=== PATIENT | female | born 1980 | race Caucasian/White ===

== ENCOUNTER 2020-05-03 11:43 | Emergency (ER) | payer OTHER, SELFPAY ==
[2020-05-03 12:08] VITALS: BP 103/70; PULSE 78; RESP 18; TEMP 37.1; O2SAT 98; BMI 49.9
--- NOTE | 2020-05-03 12:36 | XR_ITS ---
EXAMINATION: XR CHEST CLINICAL INFORMATION: Cough COMPARISON: Previous chest x-ray May 2016 TECHNIQUE: Frontal view of the chest was obtained. FINDINGS: The cardiac and mediastinal contours are stable. The lungs are clear. There is no pleural effusion or pneumothorax. There are degenerative changes of the spine. XR/XR chest 1V IMPRESSION: No evidence for acute disease in the chest.
--- NOTE | 2020-05-03 12:44 | PC.NURSE ---
SEEN BY PROVIDER. SWABBED FOR COVID. CXR PENDING.
--- NOTE | 2020-05-03 13:17 | ED.URI ---
HPI - URI/Sore Throat General Chief Complaint: Upper Respiratory Symptoms Stated Complaint: cough Time Seen by Provider: 05/03/20 12:36 History of Present Illness HPI Narrative: Patient complains of cough, runny nose body aches and some fatigue for 6 or 7 days no chest pain no shortness breath, cough is productive of sputum Symptoms have been for a week, they are moderate, no prior medical treatment Related Data Home Medications Medication Instructions Recorded Confirmed docusate sodium 100 mg capsule 100 mg PO DAILY 04/17/20 04/17/20 sennosides 8.6 mg capsule 17.2 mg PO BEDTIME cap 04/17/20 04/17/20 simethicone 180 mg capsule 180 mg PO .T.i.d. PRN cap 04/17/20 04/17/20 Previous Rx's Medication Instructions Recorded trazodone 50 mg tablet 50 mg PO BEDTIME #90 tab 04/12/20 bupropion HCl 150 mg 24 hr tablet, 150 mg PO QAM #90 tab 04/17/20 extended release sucralfate 1 gram tablet 2 g PO DAILY #60 tab 04/18/20 azithromycin [Zithromax Z-Nirav] See Rx Instructions .ROUTE 05/03/20 .COMPLEX #6 tab hydrocodone-guaifenesin 10 ml PO Q6H PRN #118 ml 05/03/20 Allergies Allergy/AdvReac Type Severity Reaction Status Date / Time metronidazole [From FLAGYL] Allergy Severe CHEST PAIN Verified 05/03/20 12:14 TO LEFT SHOULDER, aripiprazole [From Abilify] Allergy Mild ITCHING Verified 05/03/20 12:14 iopromide [From Ultravist] Allergy Mild DIZZY, DRY Verified 05/03/20 12:14 THROAT AND MOUTH bacitracin [BACITRACIN] Allergy Unknown BURNING, Verified 05/03/20 12:14 [address] Allergy Intermediate attention Uncoded 05/03/20 12:14 issues Review of Systems Review of Systems: There is no headache, no neck pain, no chest pain or shortness of breath, no abdominal pain no nausea no vomiting no diarrhea no dysuria, no rash, no leg swelling or calf pain, no weakness no confusion no dizziness Yes all other systems are reviewed and are negative PMFSH Past Medical History Source: nursing notes reviewed Medical History (Updated 05/03/20 @ 13:23 by JOSE Choi) Fibromyalgia Hypothyroid PCOS (polycystic ovarian syndrome) PTSD (post-traumatic stress disorder) Social History Social History Advance Directives: No Advance Directives Information Provided: Yes Physical Exam Vital Signs: Vital Signs: Last Vital Signs Temp 98.8 F 05/03/20 12:08 Pulse 78 05/03/20 12:08 Resp 18 05/03/20 12:08 BP 103/70 05/03/20 12:08 Pulse Ox 98 05/03/20 12:08 Body Mass Index 49.9 General appearance is comfortable, no acute distress, speaks full sentences, relaxed and cooperative, a and O x3 Eyes are clear with no redness or discharge Sinuses are not tender Neck is supple Chest is clear to auscultation bilaterally with full symmetrical equal breath sounds The heart no murmur The abdomen soft nontender Extremities no edema Skin no rashes Neuro no focal deficit Course Course Course Narrative: Chest x-ray was negative, a one-view portable Symptoms are likely COVID but with productive cough and fever possibility of early pneumonia not seen on x-ray I treated the patient with antibiotic as well She remained comfortable throughout ER visit and was discharged Discharge Plan Discharge Clinical Impression: Bronchitis Patient Disposition: Home, Self-Care Additional Instructions: We will call with COVID test results in 2-3 days Your symptoms are very likely from COVID so be very careful with wearing a mask and protect people from your cough A negative test does not rule out COVID infection We are trying an antibiotic in case it is an early pneumonia missed by x-ray Return any time any worse condition or any concerns Prescriptions: New azithromycin [Zithromax Z-Nirav] 250 mg tablet See Rx Instructions .ROUTE .COMPLEX Qty: 6 RF: 0 hydrocodone-guaifenesin 2.5-200 mg/5 mL solution 10 ml PO Q6H PRN (Reason: cough) Qty: 118 RF: 0 No Action trazodone 50 mg tablet 50 mg PO BEDTIME Qty: 90 RF: 0 bupropion HCl 150 mg tablet extended release 24 hr 150 mg PO QAM Qty: 90 RF: 0 sucralfate 1 gram tablet 2 g PO DAILY Qty: 60 RF: 1 docusate sodium [Colace] 100 mg capsule 100 mg PO DAILY RF: 0 senna 8.6 mg capsule 17.2 mg PO BEDTIME RF: 0 simethicone [Gas Relief (simethicone)] 180 mg capsule 180 mg PO .T.i.d. PRNRF: 0 Interventions: ED Discharge Assessment Last Done: 05/03/20 13:31 Discharge Date/Time: 05/03/20 13:30
== END 2020-05-03 13:30 | disposition home or self-care (01) ==
PROVIDERS: Physician Assistant Medical; Emergency Provider Emergency Medicine; PCP Physician Assistant
DX: J40 Bronchitis, not specified as acute or chronic (principal); R05 Cough; M79.10 Myalgia, unspecified site; Z20.828 Contact with and (suspected) exposure to other viral communicable diseases; Z79.899 Other long term (current) drug therapy
CPT/HCPCS: 71045; 99283; U0003

== ENCOUNTER 2020-05-21 09:02 | Emergency (ER) | payer OTHER, SELFPAY ==
--- NOTE | 2020-05-21 09:31 | ED.BACK ---
HPI - Back Pain/Injury General Chief Complaint: Back Pain/Injury Stated Complaint: fall Time Seen by Provider: 05/21/20 09:27 Source: patient Mode of arrival: ambulatory Limitations: no limitations History of Present Illness HPI Narrative: Patient presents to ED for sharp tingling pain from right lower back glute jaime going down right leg. Patient states the sunfsy pain was so severe cause her to fall while trying to put lotion on her legs. Patient states she slipped and fell onto her knees. Patient states presently she has no pain in knees and only complaint is right gluteus to lower back pain radiating down leg. Patient states history of sciatica. Patient denies any urinary or bowel incontinence. Patient states no paralysis of lower extremities. Patient states no abdominal pain, nausea, vomiting, fever, chills, flank pain, dysuria, hematuria, vaginal bleeding, or vaginal discharge. Patient denies hitting head or loss of consciousness. Related Data Home Medications Medication Instructions Recorded Confirmed docusate sodium 100 mg capsule 100 mg PO DAILY 04/17/20 04/17/20 sennosides 8.6 mg capsule 17.2 mg PO BEDTIME cap 04/17/20 04/17/20 simethicone 180 mg capsule 180 mg PO .T.i.d. PRN cap 04/17/20 04/17/20 Previous Rx's Medication Instructions Recorded trazodone 50 mg tablet 50 mg PO BEDTIME #90 tab 04/12/20 bupropion HCl 150 mg 24 hr tablet, 150 mg PO QAM #90 tab 04/17/20 extended release sucralfate 1 gram tablet 2 g PO DAILY #60 tab 04/18/20 azithromycin [Zithromax Z-Nirav] See Rx Instructions .ROUTE 05/03/20 .COMPLEX #6 tab hydrocodone-guaifenesin 10 ml PO Q6H PRN #118 ml 05/03/20 tramadol 50 mg PO TID PRN #9 tab 05/21/20 Allergies Allergy/AdvReac Type Severity Reaction Status Date / Time metronidazole [From FLAGYL] Allergy Severe CHEST PAIN Verified 05/03/20 12:14 TO LEFT SHOULDER, aripiprazole [From Abilify] Allergy Mild ITCHING Verified 05/03/20 12:14 iopromide [From Ultravist] Allergy Mild DIZZY, DRY Verified 05/03/20 12:14 THROAT AND MOUTH bacitracin [BACITRACIN] Allergy Unknown BURNING, Verified 05/03/20 12:[address] Allergy Intermediate attention Uncoded 05/03/20 12:14 issues Review of Systems Review of Systems: Yes all other systems are reviewed and are negative Constitutional: Constitutional: Reports as per HPI, Reports no additional constitutional complaints, Denies body ache(s), Denies frequent falls and Denies headache(s) Eyes: Eyes: Reports as per HPI and Reports no additional eye complaints ENT: Reports system reviewed and no additional complaints, except as documented, Reports as per HPI and Denies headache(s) Cardiovascular: Cardiovascular: Reports as per HPI and Reports no additional cardiovascular complaints Respiratory: Respiratory: Reports as per HPI and Reports no additional respiratory complaints Gastrointestinal: Gastrointestinal: Reports as per HPI, Reports no additional gastrointestinal complaints, Denies abdominal pain, Denies nausea and Denies vomiting Genitourinary: Genitourinary: Reports no additional female genitourinary complaints, Reports as per HPI, Denies abnormal vaginal bleeding, Denies nocturia, Denies dysuria, Denies pelvic pain, Denies urinary hesitancy, Denies urinary urgency, Denies vaginal discharge, Denies vaginal dryness, Denies vaginal odor and Denies vaginal pruritus Musculoskeletal: Musculoskeletal: Reports no additional musculoskeletal complaints and Reports as per HPI Neurologic: Reports system reviewed and no additional complaints, except as documented, Reports as per HPI, Denies frequent falls and Denies headache(s) Psychiatric: Psychiatric: Reports no additional psychiatric complaints and Reports as per HPI PMFSH Past Medical History Medical History Fibromyalgia Hypothyroid PCOS (polycystic ovarian syndrome) PTSD (post-traumatic stress disorder) Social History Social History Smoking Status: Never smoker Use of substances other than those prescribed or required for medical reasons: No Advance Directives: No Advance Directives Information Provided: No Physical Exam Vital Signs: Vital Signs: Last Vital Signs Temp 97.9 F 05/21/20 09:32 Pulse 98 05/21/20 09:32 Resp 16 05/21/20 09:32 BP 133/98 H 05/21/20 09:32 Pulse Ox 97 05/21/20 09:32 Body Mass Index 50.1 Const: General: cooperative, healthy appearing, comfortable, no acute distress, well developed, alert, awake and Physically active Orientation/consciousness: patient oriented x3 HENMT: Head: Yes normal to inspection, Yes No palpable skull fracture present, Yes atraumatic, No abrasion, No Graham's sign, No contusion, No cranial bruits, No hematoma, No laceration, No occipital foramen tenderness, No palpable skull fracture, No raccoon eyes, No scalp lesion, No scalp tenderness, No Temporal artery tenderness present and No periorbital ecchymosis Eyes: General: appearance normal, both eyes and all related structures Neck: Neck: Yes normal visual inspection, Yes full ROM, Yes no lymphadenopathy, Yes no meningeal signs, Yes trachea midline, Yes supple and No tender Chest: Chest palpation & inspection: normal inspection of the chest, normal palpation of entire chest wall and no localized rib tenderness Resp: Effort & Inspection: normal respiratory effort and able to speak in complete sentences Auscultation: clear to auscultation bilaterally Cardio: Jugular venous distension: no JVD Heart sounds: S1 normal heart sound present and S2 normal heart sound present GI: Inspection: Yes normal to inspection and No abdominal wall ecchymosis Palpation (GI): Soft to palpation, not firm, nontender, no guarding and not rigid : General: No CVA tenderness and Yes no CVA tenderness Back/Spine/Pelvis: Other: Negative for any spine tenderness. Positive for tenderness on palpation of right gluteus jaime. Negative for any edema, swelling, mass, ecchymosis, fluctulance or warmth on palpation/inspection of right gluteus jaime. Back: no CVA tenderness, No CVA tenderness and No back tenderness Skin: General skin exam: no rashes or lesions noted and elasticity normal Neuro: General: patient oriented x3, no meningeal signs and CN's II-XI intact bilaterally Cranial nerves: Yes CN's II-XII intact bilaterally Extrem: General: Yes normal to inspection and Yes full ROM Psych: Appearance: grossly normal, well kempt and not disheveled Course Course Course Narrative: History physical exam indicates sciatica. No need for any images. Patient does not have any knee pain presently and negative for any spine tenderness on palpation. Patient given Toradol injection Reevaluation(s) Reevaluation #1: patient given Toradol for injection Time: 09:40 MDM - Back Pain/Injury MDM Narrative Medical decision making narrative: sciatica Lab Data Labs: Lab Results 05/21/20 Range/Units 10:00 Urine Color YELLOW Urine Appearance CLEAR Urine pH 6.0 (5.0-8.0) Ur Specific [place] 1.025 (1.005-1.025) Urine Protein NEG (NEG-TRACE) MG/DL Urine Glucose (UA) NEG (NEG) MG/DL Urine Ketones NEG (NEG) MG/DL Urine Blood NEG (NEG) Urine Nitrite NEG (NEG) Ur Leukocyte Esterase NEG (NEG) Urine Test NEGATIVE (NEGATIVE) Discharge Plan Discharge Clinical Impression: Sciatica Patient Disposition: Home, Self-Care Instructions: Sciatica (ED) Additional Instructions: return to the ED immediately for worsening back pain, urinary/ bowel incontinence, paralysis of lower extremity, nausea, vomiting, abdominal pain, flank pain, fever, chills, vaginal bleeding, vaginal discharge, or any other concerning symptoms. Prescriptions: New tramadol 50 mg tablet 50 mg PO TID PRN (Reason: pain) Qty: 9 RF: 0 No Action trazodone 50 mg tablet 50 mg PO BEDTIME Qty: 90 RF: 0 bupropion HCl 150 mg tablet extended release 24 hr 150 mg PO QAM Qty: 90 RF: 0 sucralfate 1 gram tablet 2 g PO DAILY Qty: 60 RF: 1 azithromycin [Zithromax Z-Nirav] 250 mg tablet See Rx Instructions .ROUTE .COMPLEX Qty: 6 RF: 0 hydrocodone-guaifenesin 2.5-200 mg/5 mL solution 10 ml PO Q6H PRN (Reason: cough) Qty: 118 RF: 0 docusate sodium [Colace] 100 mg capsule 100 mg PO DAILY RF: 0 senna 8.6 mg capsule 17.2 mg PO BEDTIME RF: 0 simethicone [Gas Relief (simethicone)] 180 mg capsule 180 mg PO .T.i.d. PRNRF: 0 Referrals: Parth La PA-C [Primary Care Provider] - 2 days (Sciatica) Discharge Date/Time: 05/21/20 10:34
[2020-05-21 09:32] VITALS: BP 133/98; PULSE 98; RESP 16; TEMP 36.6; O2SAT 97; BMI 50.1
[2020-05-21 10:15] LABS: Glucose Urine UA NEG (NEG); Leukocyte Esterase Urine NEG (NEG); Nitrite Urine NEG (NEG); Specific Gravity - Urine 1.025 (1.005-1.025); Urine Blood NEG (NEG); Urine Ketones NEG (NEG); Urine Protein NEG (NEG-TRACE)
[2020-05-21 10:17] LABS: Appearance Urine CLEAR; Color Urine YELLOW
[2020-05-21 10:19] LABS: UPreg QC Valid YES; Urine Pregnancy NEGATIVE (NEGATIVE)
[2020-05-21] MEDS: Ketorolac Tromethamine 30 MG/ML VIAL IM (10:25)
== END 2020-05-21 10:34 | disposition home or self-care (01) ==
PROVIDERS: Physician Assistant; Emergency Provider Emergency Medicine; PCP Physician Assistant
DX: M54.31 Sciatica, right side (principal)
CPT/HCPCS: 81003; 81025; 96372; 99283; 99284; J1885

== ENCOUNTER 2020-05-31 08:13 | Outpatient (REF) | payer OTHER, SELFPAY ==
--- NOTE | 2020-05-31 08:18 | XR_ITS ---
EXAMINATION: LUMBAR SPINE X-RAY CLINICAL INFORMATION: Low back pain COMPARISON: Previous x-ray December 2014 TECHNIQUE: 3 views of the lumbar spine FINDINGS: Bone alignment is normal. No fracture or dislocation is seen. Disc spaces are normal. XR/XR lumbar spine 2-3V IMPRESSION: Unremarkable exam. EXAMINATION: Pelvis and right hip x-ray CLINICAL INFORMATION: Right hip pain COMPARISON: None. TECHNIQUE: One view of the pelvis and 2 views of the right hip FINDINGS: Bone alignment is normal. No fracture or dislocation is seen. The right hip joint is normal. Bones of the pelvis are unremarkable. Soft tissues are unremarkable. IMPRESSION: Unremarkable examination.
--- NOTE | 2020-05-31 08:18 | XR_ITS ---
EXAMINATION: LUMBAR SPINE X-RAY CLINICAL INFORMATION: Low back pain COMPARISON: Previous x-ray December 2014 TECHNIQUE: 3 views of the lumbar spine FINDINGS: Bone alignment is normal. No fracture or dislocation is seen. Disc spaces are normal. XR/XR hip RT w PEL1V IMPRESSION: Unremarkable exam. EXAMINATION: Pelvis and right hip x-ray CLINICAL INFORMATION: Right hip pain COMPARISON: None. TECHNIQUE: One view of the pelvis and 2 views of the right hip FINDINGS: Bone alignment is normal. No fracture or dislocation is seen. The right hip joint is normal. Bones of the pelvis are unremarkable. Soft tissues are unremarkable. IMPRESSION: Unremarkable examination.
== END 2020-05-31 08:14 | disposition home or self-care (01) ==
LOC: HO.XRAY 08:13
PROVIDERS: Visit Provider Physician Assistant
DX: M25.551 Pain in right hip (principal); M54.5 Low back pain
CPT/HCPCS: 72100; 73502

== ENCOUNTER 2020-06-05 15:07 | Outpatient (REF) | payer OTHER, SELFPAY | END 2020-06-05 15:08 | disposition home or self-care (01) | LOC: HO.LAB 15:07 | PROVIDERS: Visit Provider Internal Medicine | DX: Z20.828 Contact with and (suspected) exposure to other viral communicable diseases (principal) | CPT/HCPCS: C9803; U0003 ==

== ENCOUNTER 2020-09-30 14:54 | Outpatient (REF) | payer OTHER, SELFPAY | END 2020-09-30 14:55 | disposition home or self-care (01) | LOC: HO.LAB 14:54 | PROVIDERS: Visit Provider Internal Medicine | DX: Z20.822 Contact with and (suspected) exposure to COVID-19 (principal) | CPT/HCPCS: C9803; U0003; U0005 ==

== ENCOUNTER → 2020-10-14 13:31 | Outpatient (BNVA) | payer OTHER, SELFPAY | PROVIDERS: PCP Physician Assistant; Visit Provider Internal Medicine Gastroenterology | DX: Z13.89 Encounter for screening for other disorder (principal) | CPT/HCPCS: Q3014 ==

== ENCOUNTER 2020-10-23 09:47 | Outpatient (REF) | payer OTHER, SELFPAY ==
[2020-10-24 10:12] LABS: CT PCR NOT DETECTED (Not Detect.); NG PCR NOT DETECTED (Not Detect.)
[2020-10-24 12:25] LABS: BV Int Neg Control Negative (Negative); BV Int Pos Control Positive (Positive)
[2020-10-26 05:56] LABS: HPV mRNA E6/E7 rflx Not Detected (Not Detected)
== END 2020-10-23 09:48 | disposition home or self-care (01) ==
LOC: HO.LAB 09:47
PROVIDERS: PCP Physician Assistant; Visit Provider Obstetrics & Gynecology
DX: Z01.419 Encounter for gynecological examination (general) (routine) without abnormal findings (principal); E28.2 Polycystic ovarian syndrome; R10.2 Pelvic and perineal pain; R87.610 Atypical squamous cells of undetermined significance on cytologic smear of cervix (ASC-US); E66.01 Morbid (severe) obesity due to excess calories; Z68.43 Body mass index [BMI] 50.0-59.9, adult; Z88.8 Allergy status to other drugs, medicaments and biological substances; Z20.2 Contact with and (suspected) exposure to infections with a predominantly sexual mode of transmission
CPT/HCPCS: 58100; 87480; 87491; 87510; 87591; 87624; 87660; 88141; 88142; 88305

== ENCOUNTER 2020-11-04 13:24 | Outpatient (REF) | payer OTHER, SELFPAY ==
--- NOTE | ~2020-11-04 | US_ITS ---
EXAMINATION: US PELVIS AND TRANSVAGINAL CLINICAL INFORMATION: Pelvic pain. COMPARISON: Ultrasound pelvis 03/21/2019 TECHNIQUE: Transabdominal and transvaginal imaging of pelvis is performed. FINDINGS: The uterus is anteverted measuring 10.6 cm in length, 3.8 cm AP, and 5.7 cm in transverse dimension. The endometrial thickness is 0.8 cm. There are multiple small nabothian cysts in the cervix. There is no free fluid in the cul-de-sac. Right ovary measures 3.4 x 3.5 x 2.7 cm and volume 16.8 mL. It appears unremarkable. Previously, the right ovary measured 3.6 x 1.6 x 2.3 cm and volume 7.4 mL. Left ovary measures 2.9 x 2.9 x 1.8 cm and volume 7.7 mL. Previously, the left ovary measured 3.1 x 2.3 x 1.9 cm and volume 6.7 mL. There is no free fluid in the cul-de-sac. US/US pelvic and transvaginal IMPRESSION: Anteverted uterus appears unremarkable. Small nabothian cysts seen in the cervix. Unremarkable uterus.
== END 2020-11-04 13:25 | disposition home or self-care (01) ==
LOC: HO.US 13:24
PROVIDERS: Visit Provider Obstetrics & Gynecology
DX: R10.2 Pelvic and perineal pain (principal)
CPT/HCPCS: 76830; 76856

== ENCOUNTER → 2020-11-08 11:45 | Outpatient (BNVA) | payer OTHER, SELFPAY | PROVIDERS: Visit Provider Obstetrics & Gynecology | DX: E28.2 Polycystic ovarian syndrome (principal) | CPT/HCPCS: Q3014 ==

== ENCOUNTER 2020-12-16 09:57 | Outpatient (REF) | payer OTHER, SELFPAY ==
--- NOTE | ~2020-12-16 | MM_ITS ---
EXAMINATION: MM SCREENING DIGITAL BREAST TOMOSYNTHESIS, BILATERAL CLINICAL INFORMATION: Screening. Asymptomatic. The lifetime risk of breast cancer based on the Tyrer-Cuzick Model is 12.5%. COMPARISON: Mammography: December 15, 2019 and studies dating back to March 19, 2015 TECHNIQUE: Digital breast tomosynthesis is performed in both the craniocaudal and mediolateral oblique views along with computer-aided detection (CAD). Synthesized 2D images are generated from the tomosynthesis. FINDINGS: The breasts are heterogeneously dense, which may obscure small masses (ACR BI-RADS breast composition Category c). There are no significant masses, abnormal calcifications, or other abnormalities. MM/MM tomosynthesis screening BI IMPRESSION: There are no significant changes from prior study. ASSESSMENT: BI-RADS 1: Negative RECOMMENDATION: Routine annual mammography screening. This patient's information was entered into a reminder system with a target due date for their next mammogram.
== END 2020-12-16 09:58 | disposition home or self-care (01) ==
LOC: HO.MAMMO 09:57
PROVIDERS: Visit Provider Obstetrics & Gynecology
DX: Z12.31 Encounter for screening mammogram for malignant neoplasm of breast (principal)
CPT/HCPCS: 77063; 77067

== ENCOUNTER 2021-01-15 12:01 | Outpatient (REF) | payer OTHER, SELFPAY | END 2021-01-15 12:02 | disposition home or self-care (01) | LOC: HO.LAB 12:01 | PROVIDERS: PCP Physician Assistant; Visit Provider Internal Medicine | DX: Z20.822 Contact with and (suspected) exposure to COVID-19 (principal) | CPT/HCPCS: C9803; U0003; U0005 ==

== ENCOUNTER 2021-01-28 13:12 | Emergency (ER) | payer OTHER, SELFPAY ==
--- NOTE | ~2021-01-28 | XR_ITS ---
EXAMINATION: XR LUMBOSACRAL SPINE CLINICAL INFORMATION: Pain COMPARISON: May 31, 2020 TECHNIQUE: Three views of the lumbosacral spine. FINDINGS: There are 5 nonrib bearing lumbar vertebra. No acute fracture, spondylolisthesis, or spondylolysis is identified. The disc spaces are maintained. There is minimal anterior spurring present at multiple levels. No evidence of sacroiliac joint fusion or widening. XR/XR lumbar spine 2-3V IMPRESSION: No significant bony abnormality of the lumbosacral spine identified.
[2021-01-28 15:10] VITALS: PULSE 89; RESP 18; TEMP 36.4; O2SAT 98; BMI 51.5
--- NOTE | 2021-01-28 16:24 | ED_ITS ---
HPI - Back Pain/Injury General Chief Complaint: Back Pain/Injury Stated Complaint: Multiple complaints Time Seen by Provider: 01/28/21 16:11 Source: patient Mode of arrival: ambulatory Limitations: no limitations History of Present Illness HPI Narrative: Patient presents to to the ED for chronic back pain exacerbation. Patient states having back pain that worse on range of motion. Patient denies any recent blunt trauma to the back, or falling to the ground. Patient denies any chest pain, shortness of breath, abdominal pain, dysuria, hematuria, flank pain, fever, or chills. Patient denies any urinary/bowel incontinence. Patient already has refill prescription of naproxen and Flexeril that she states sometimes help. MD elicited complaint: back pain Related Data Home Medications Medication Instructions Recorded Confirmed galcanezumab-gnlm 120 mg/mL mg SUBCUT 05/08/20 12/05/20 subcutaneous pen injector (Emgality Pen) acetaminophen 650 mg 650 mg PO Q8H PRN 05/29/20 12/05/20 tablet,extended release cholecalciferol (vitamin D3) 50 50 mcg PO QAM 05/29/20 12/05/20 mcg (2,000 unit) capsule riboflavin (vitamin B2) 100 mg 200 mg PO BID 05/29/20 12/05/20 tablet cyclobenzaprine 10 mg tablet 10 mg PO BEDTIME 08/07/20 12/05/20 propranolol 20 mg tablet 20 mg PO QPM 12/05/20 12/05/20 Previous Rx's Medication Instructions Recorded clotrimazole 1 % topical cream 1 appl TOPICAL BID 28 Days #28 g 05/22/20 levothyroxine 88 mcg tablet 88 mcg PO DAILY 90 Days #90 tab 06/17/20 loratadine 10 mg tablet (Allergy 10 mg PO DAILY 90 Days #90 tab 06/17/20 Relief (loratadine)) bupropion HCl 150 mg 24 hr tablet, 150 mg PO QAM #90 tab 07/29/20 extended release trazodone 50 mg tablet 50 mg PO BEDTIME #90 tab 07/29/20 gabapentin 300 mg capsule 300 mg PO BEDTIME 90 Days #90 cap 08/07/20 medroxyprogesterone 10 mg tablet 10 mg PO DAILY 10 Days #10 tab 10/23/20 metronidazole 0.75 % vaginal gel 1 appful VAGINAL BEDTIME 5 Days 10/25/20 (Metrogel Vaginal) #70 g albuterol sulfate 90 mcg/actuation 2 puff INHALATION Q6H 30 Days #8.5 12/05/20 aerosol inhaler g naproxen 500 mg tablet 500 mg PO Q12H PRN #60 tab 12/05/20 prednisone 10 mg tablet 20 mg PO DAILY 4 Days #8 tab 12/05/20 fluticasone propionate 50 2 spray INTRANASAL ONCE #16 g 01/20/21 mcg/actuation nasal spray,suspension furosemide 20 mg tablet 20 mg PO DAILY PRN #30 tab 01/20/21 omeprazole 20 mg capsule,delayed 20 mg PO DAILY 90 Days #90 cap 01/28/21 release prednisone 20 mg tablet 60 mg PO DAILY 5 Days #15 tab 01/28/21 Allergies Allergy/AdvReac Type Severity Reaction Status Date / Time metronidazole [From FLAGYL] Allergy Severe CHEST PAIN Verified 12/05/20 12:01 TO LEFT SHOULDER, bacitracin [BACITRACIN] Allergy Intermediate BURNING, Verified 12/05/20 12:01 ITCHING aripiprazole [From Abilify] Allergy Mild ITCHING Verified 12/05/20 12:01 iopromide [From Ultravist] Allergy Mild DIZZY, DRY Verified 12/05/20 12:01 THROAT AND MOUTH risperidone [From Risperdal] Allergy Unknown high level Verified 12/05/20 12:01 prolactin Vistra 650 Allergy Intermediate attention Uncoded 08/26/20 10:04 issues Review of Systems Review of Systems: Yes all other systems are reviewed and are negative Constitutional: Constitutional: Reports as per HPI and Reports no additional constitutional complaints Eyes: Eyes: Reports as per HPI and Reports no additional eye complaints ENT: Reports system reviewed and no additional complaints, except as documented and Reports as per HPI Cardiovascular: Cardiovascular: Reports as per HPI and Reports no additional cardiovascular complaints Respiratory: Respiratory: Reports as per HPI and Reports no additional respira tory complaints Gastrointestinal: Gastrointestinal: Reports as per HPI and Reports no additional gastrointestinal complaints Musculoskeletal: Musculoskeletal: Reports no additional musculoskeletal complaints, Reports as per HPI and Reports back pain Neurologic: Reports system reviewed and no additional complaints, except as documented and Reports as per HPI PMFSH Past Medical History Medical History Fibroadenoma of breast Fibromyalgia GERD with esophagitis Hypothyroid IBS (irritable colon syndrome) Morbid obesity with BMI of 45.0-49.9, adult PCOS (polycystic ovarian syndrome) PTSD (post-traumatic stress disorder) Surgical History History of appendectomy History of section History of D&C History of hand surgery History of lumpectomy of right breast Hx of appendectomy Family History Family History Father Acral gangrene Mother Cancer Father Diabetes Gangrene Mother Diabetes Hypertension Thyroid disease Cervical cancer Dementia Son In good health Maternal Grandmother Breast cancer Sister Breast cancer Other Mental health disorder Social History Social History Household Members: Children Housing: Apartment Alcohol intake: never Patient Tobacco Use Status: Never used Tobacco Advance Directives: No Advance Directives Information Provided: No Current occupational status: disabled Physical Exam Vital Signs: Vital Signs: Last Vital Signs Temp 97.6 F 01/28/21 15:10 Pulse 89 01/28/21 15:10 Resp 18 01/28/21 15:10 Pulse Ox 98 01/28/21 15:10 Body Mass Index 51.5 Const: General: cooperative, healthy appearing, comfortable, no acute distress, well developed, alert, awake and Physically active Orientation/consciousness: patient oriented x3 HENMT: Head: Yes normal to inspection, Yes No palpable skull fracture present, Yes normocephalic, Yes atraumatic and No abrasion Eyes: General: appearance normal, both eyes and all related structures Neck: Neck: Yes normal visual inspection, Yes full ROM, Yes no lymphadenopathy, Yes no meningeal signs, Yes trachea midline, Yes supple and No tender Chest: Chest palpation & inspection: normal inspection of the chest and normal palpation of entire chest wall Resp: Effort & Inspection: normal respiratory effort and able to speak in co mplete sentences Cardio: Jugular venous distension: no JVD Heart sounds: S1 normal heart sound present and S2 normal heart sound present GI: Inspection: Yes normal to inspection and No abdominal wall ecchymosis Palpation (GI): Soft to palpation, not firm, nontender, no guarding and not rigid : General: No CVA tenderness and Yes no CVA tenderness Back/Spine/Pelvis: Back: no CVA tenderness, No CVA tenderness and back tenderness (Mild lumbar tenderness also pain on range of motion) Skin: General skin exam: no rashes or lesions noted and elasticity normal Neuro: General: patient oriented x3, gait normal, no meningeal signs and CN's II-XI intact bilaterally Cranial nerves: Yes CN's II-XII intact bilaterally Extrem: General: Yes normal to inspection and Yes full ROM Psych: Appearance: grossly normal, well kempt and not disheveled Course Course Course Narrative: Patient sent for lumbar x-ray. Reevaluation(s) Reevaluation #1: Lumbar x-ray negative for any fractures. Shows mild arthritis. Patient already on chronic naproxen and Flexeril. Will only add steroid. Patient informed to follow-up with PCP for MRI if pain does not improve. Presently does not suspect cord compression. Time: 16:30 MDM - Back Pain/Injury MDM Narrative Medical decision making narrative: Chronic back Discharge Plan Discharge Clinical Impression: Chronic back pain, Lumbar radiculopathy Patient Disposition: Home, Self-Care Instructions: Lumbar Radiculopathy (ED), Chronic Back Pain (DC) Additional Instructions: Return to the ED for any urinary/bowel incontinence, worsening back pain, abdominal pain, nausea, vomiting, fever, chills, flank pain, dysuria, hematuria, or any other concerning symptoms. Continue taking naproxen and Flexeril. You will be discharged with prednisone. Please follow-up with PCP for further evaluation Prescriptions: New prednisone 20 mg tablet 60 mg PO DAILY 5 Days Qty: 15 RF: 0 No Action levothyroxine 88 mcg tablet 88 mcg PO DAILY 90 Days Qty: 90 RF: 1 loratadine [Allergy Relief (loratadine)] 10 mg tablet 10 mg PO DAILY 90 Days Qty: 90 RF: 1 trazodone 50 mg tablet 50 mg PO BEDTIME Qty: 90 RF: 2 bupropion HCl 150 mg tablet extended release 24 hr 150 mg PO QAM Qty: 90 RF: 2 metronidazole [Metrogel Vaginal] 0.75 % gel 1 appful vaginal BEDTIME 5 Days Qty: 70 RF: 0 furosemide 20 mg tablet 20 mg PO DAILY PRN (Reason: edema) Qty: 30 RF: 3 fluticasone propionate 50 mcg/actuation spray,suspension 2 spray intranasal ONCE Qty: 16 RF: 2 omeprazole 20 mg capsule,delayed release(DR/EC) 20 mg PO DAILY 90 Days Qty: 90 RF: 1 cyclobenzaprine 10 mg tablet 10 mg PO BEDTIME RF: 0 gabapentin 300 mg capsule 300 mg PO BEDTIME 90 Days Qty: 90 RF: 1 riboflavin (vitamin B2) 100 mg tablet 200 mg PO BID RF: 0 cholecalciferol (vitamin D3) 50 mcg (2,000 unit) capsule 50 mcg PO QAM RF: 0 acetaminophen 650 mg tablet extended release 650 mg PO Q8H PRNRF: 0 propranolol 20 mg tablet 20 mg PO QPM RF: 0 prednisone 10 mg tablet 20 mg PO DAILY 4 Days Qty: 8 RF: 0 albuterol sulfate 90 mcg/actuation HFA aerosol inhaler 2 puff inhalation Q6H 30 Days Qty: 8.5 RF: 1 naproxen 500 mg tablet 500 mg PO Q12H PRN (Reason: pain) Qty: 60 RF: 2 Emgality Pen 120 mg/mL pen injector subcut RF: 0 clotrimazole 1 % cream 1 appl topical BID 28 Days Qty: 28 RF: 0 medroxyprogesterone 10 mg tablet 10 mg PO DAILY 10 Days Qty: 10 RF: 3 Interventions: ED Discharge Assessment Last Done: 01/28/21 17:08 Discharge Date/Time: 01/28/21 17:09 Print Language: Luxembourgish
== END 2021-01-28 17:09 | disposition home or self-care (01) ==
PROVIDERS: Emergency Provider Emergency Medicine Emergency Medical Services; PCP Physician Assistant
DX: M54.16 Radiculopathy, lumbar region (principal); G89.29 Other chronic pain; M54.5 Low back pain
CPT/HCPCS: 72100; 99283

== ENCOUNTER 2021-01-29 10:00 | Outpatient (REF) | payer OTHER, SELFPAY ==
[2021-01-29 11:19] LABS: Hematocrit 32.4 % (37-47); Hemoglobin 10.6 g/dl (12.0-16.0); Mean Corpuscular HGB Conc 32.7 g/dl (31.0-35.0); Mean Corpuscular Volume 79.4 fL (80-98); Mean Platelet Volume 9.6 fL (9.4-12.3); Platelet Count 264 X10*3/uL (160-400); Red Blood Count 4.08 X10*6/uL (4.20-5.50); Red Cell Distribution Width 14.3 % (11.0-16.0); White Blood Count 6.8 X10*3/uL (4.8-10.8)
[2021-01-29 12:42] LABS: Alanine Aminotransferase 47 U/L (0-31); Alkaline Phosphatase 81 U/L (39-117); Anion Gap 13 (12-20); Aspartate Amino Transferase 35 U/L (5-31); Bilirubin Total 0.6 mg/dL (0.0-1.0); Blood Urea Nitrogen 23 mg/dL (9-16); Calcium 9.3 mg/dL (8.4-10.2); Carbon Dioxide 25 mmol/L (22-29); Chloride 106 mmol/L (96-108); Cholesterol 175 mg/dL; Estimated Average Glucose 143 mg/dL; Estimated Glomerular Filt Rate > 60; Glucose Fasting 106 mg/dL (60-99); HDL Cholesterol 55 mg/dL; Hemoglobin A1c % 6.6 %; LDL Cholesterol Calculated 102 mg/dl; Potassium 4.5 mmol/L (3.3-5.1); Sodium 139 mmol/L (135-145); Total Protein 7.5 g/dL (6.5-8.0); Triglycerides 90 mg/dL
== END 2021-01-29 10:01 | disposition home or self-care (01) ==
LOC: HO.LAB 10:00
PROVIDERS: PCP Physician Assistant; Visit Provider Physician Assistant
DX: E11.9 Type 2 diabetes mellitus without complications (principal); M54.5 Low back pain; I10 Essential (primary) hypertension; E03.9 Hypothyroidism, unspecified
CPT/HCPCS: 36415; 80053; 80061; 83036; 84443; 85027

== ENCOUNTER → 2021-02-17 08:59 | Outpatient (BNVA) | payer OTHER, SELFPAY | PROVIDERS: PCP Physician Assistant; Visit Provider Nurse Practitioner Family | DX: M79.7 Fibromyalgia (principal); M54.5 Low back pain; E03.9 Hypothyroidism, unspecified; J45.991 Cough variant asthma; E66.01 Morbid (severe) obesity due to excess calories; Z68.43 Body mass index [BMI] 50.0-59.9, adult; Z88.8 Allergy status to other drugs, medicaments and biological substances; Z79.899 Other long term (current) drug therapy | CPT/HCPCS: 99212 ==

== ENCOUNTER 2021-03-14 09:58 | Outpatient (RCR) | payer OTHER, SELFPAY ==
--- NOTE | 2021-03-14 13:57 | MHC.PT.EP ---
[facility] [place] Office [place] [facility] [place] [facility] [address] Nathalia Valenzuela [address] [phone] F: [phone] F: [phone] F: [phone] F: [phone] Physical Therapy Plan of Care Date of Evaluation: Date of Surgery: Diagnosis: LBP radiates down right leg Assessment: The patient arrived reporting low back pain after exercise. She has reduced awareness of neutral spine. She stands with APT. She has poor sitting posture noted by sacral sitting and forward head posture. She has trouble with cross body reaching and bending. She reports pain with putting on shoes, showering, getting dressed. She has poor sitting posture, lifting posture, and poor hip trunk dissociation. She is a good candidate for skilled therapy to address the above listed impairments with posture re education using NMR, core stabilization using therex, and body mechanics for lifting bending, chores using dynamic activities. Frequency and Duration: The patient will be seen 2x/week x 4 weeks. Short Term Goals: 1.Pt to able to demonstrate proper sitting posture with the use of a lumbar roll to decrease aggravating factors. 2.Pt to be able to demonstrate proper posture for common leisure activities such as phone/tablet use. 3.For the patient to demonstrate proper upright sitting posture with use of the lumbar roll to improve compliance and carryover. Chcf Goals: 1.The patient to demonstrate proper lifting mechanics for household chore activities to show improved functional mobility. 2.The patient to report no leg or hip pain in order to show centralization of pain and reduction of lumbar derangement 3. Pt to be able to demonstrate self management of lumbar pain by demonstration of HEP. Treatment Plan: Modalities to reduce pain, spasms and effusion. Manual therapy to restore motion and function. Therapeutic exercise to improve strength and flexibility. Neuromuscular re-education for posture and balance. Therapeutic activities to return to functional activities of daily living. Electronically signed by: Selin Self PT DPT Please sign and return to therapist. Thank you for your referral.
== END 2021-05-02 12:52 | disposition home or self-care (01) ==
LOC: HO.PT 09:58
PROVIDERS: PCP Physician Assistant; Visit Provider Physician Assistant
DX: M54.5 Low back pain (principal)
CPT/HCPCS: 97110; 97112; 97162

== ENCOUNTER 2021-04-09 10:01 | Emergency (ER) | payer OTHER, SELFPAY ==
--- NOTE | ~2021-04-09 | US_ITS ---
EXAMINATION: US DIAGNOSTIC ULTRASOUND BREAST, LEFT CLINICAL INFORMATION: 41-year-old with pain upper outer left breast. COMPARISON: Left breast ultrasound 10/05/2017, bilateral breast digital tomosynthesis 12/16/2020. TECHNIQUE: Ultrasound left breast is performed at the hospital location and reviewed [facility]. Grayscale imaging and color Doppler are performed without and with harmonics. Findings discussed with the streetcar motorman. FINDINGS: There is no focal suspicious finding. There is no solid mass, architectural abnormality, duct ectasia, or edema in the soft tissue planes. Incidental hyperechoic fat lobule is noted retroareolar region under 5 mm. US/US breast LT limited IMPRESSION: Normal targeted left breast ultrasound. ASSESSMENT: BI-RADS 1: Negative RECOMMENDATION: Patient's left breast pain should be managed based on the clinical impression.
--- NOTE | ~2021-04-09 | XR_ITS ---
EXAMINATION: XR CHEST CLINICAL INFORMATION: Pain with inspiration COMPARISON: CXR from 05/03/2020 TECHNIQUE: Frontal view of the chest was obtained. FINDINGS: Lungs are well-inflated and clear. Trachea is midline in position. No interstitial disease, consolidation or mass. No pulmonary edema, pleural effusion or pneumothorax. Cardiac silhouette and pulmonary vessels are normal in size. The mediastinum and tania have normal contour. The visualized bones, and upper abdomen, are unremarkable. XR/XR chest 1V IMPRESSION: No acute cardiopulmonary abnormality.
[2021-04-09 10:12] VITALS: BP 153/96; PULSE 102; RESP 18; TEMP 36.7; O2SAT 98; BMI 51.5
--- NOTE | 2021-04-09 10:20 | ECG_ITS ---
Test Reason : UPPER GASTRIC PAIN Blood Pressure : / mmHG Vent. Rate : 086 BPM Atrial Rate : 086 BPM P-R Int : 134 ms QRS Dur : 086 ms QT Int : 368 ms P-R-T Axes : 060 057 017 degrees QTc Int : 440 ms Normal sinus rhythm Possible Left ventricular hypertrophy Borderline ECG Heart rate has increased Referred By: Generic ED Physician Electronically Signed By:VIN FIELDS MD
[2021-04-09 10:29] LABS: Glucose, Whole Blood 163 mg/dL (60-115)
--- NOTE | 2021-04-09 10:42 | ED.GENADULT ---
HPI - General Adult General Chief complaint: General Medical Stated complaint: BREAST PAIN Time Seen by Provider: 04/09/21 10:41 Source: patient Mode of arrival: ambulatory Limitations: no limitations History of Present Illness HPI narrative: 41-year-old female with a past medical history of fibromyalgia, IBS, diabetes, morbid obesity, PTSD, reflux, PCOS, presents with 3 days of left breast pain. Patient noticed her left breast being achy 3 days ago, atraumatic. States pain radiates to her left back, but her left back pain is chronic. States the pain is worse with laying down. No fevers, no cough, no other complaints. Patient has a normal mammogram in November. Patient has had of right breast lumpectomy for benign tumor in 2004. Patient's sister was diagnosed with breast cancer last year and has just completed chemotherapy and radiation, patient is very anxious she may have breast cancer. Related Data Home Medications Medication Instructions Recorded Confirmed galcanezumab-gnlm 120 mg/mL mg SUBCUT 05/08/20 12/05/20 subcutaneous pen injector (Emgality Pen) acetaminophen 650 mg 650 mg PO Q8H PRN 05/29/20 12/05/20 tablet,extended release riboflavin (vitamin B2) 100 mg 200 mg PO BID 05/29/20 12/05/20 tablet cyclobenzaprine 10 mg tablet 10 mg PO BEDTIME 08/07/20 12/05/20 propranolol 20 mg tablet 20 mg PO QPM 12/05/20 12/05/20 Previous Rx's Medication Instructions Recorded clotrimazole 1 % topical cream 1 appl TOPICAL BID 28 Days #28 g 05/22/20 loratadine 10 mg tablet (Allergy 10 mg PO DAILY 90 Days #90 tab 06/17/20 Relief (loratadine)) gabapentin 300 mg capsule 300 mg PO BEDTIME 90 Days #90 cap 08/07/20 medroxyprogesterone 10 mg tablet 10 mg PO DAILY 10 Days #10 tab 10/23/20 metronidazole 0.75 % vaginal gel 1 appful VAGINAL BEDTIME 5 Days 10/25/20 (Metrogel Vaginal) #70 g albuterol sulfate 90 mcg/actuation 2 puff INHALATION Q6H 30 Days #8.5 12/05/20 aerosol inhaler g naproxen 500 mg tablet 500 mg PO Q12H PRN #60 tab 12/05/20 fluticasone propionate 50 2 spray INTRANASAL ONCE #16 g 01/20/21 mcg/actuation nasal spray,suspension furosemide 20 mg tablet 20 mg PO DAILY PRN #30 tab 01/20/21 omeprazole 20 mg capsule,delayed 20 mg PO DAILY 90 Days #90 cap 01/28/21 release levothyroxine 88 mcg tablet 88 mcg PO DAILY 90 Days #90 tab 02/23/21 bupropion HCl 150 mg 24 hr tablet, 150 mg PO QAM #90 tab 02/26/21 extended release cholecalciferol (vitamin D3) 50 50 mcg PO QAM 90 Days #90 cap 02/26/21 mcg (2,000 unit) capsule trazodone 50 mg tablet 50 mg PO BEDTIME #90 tab 02/26/21 metformin 500 mg tablet 500 mg PO DAILY #30 tab 04/07/21 dicloxacillin 500 mg capsule 500 mg PO Q6H 7 Days #28 cap 04/09/21 Allergies Allergy/AdvReac Type Severity Reaction Status Date / Time metronidazole [From FLAGYL] Allergy Severe CHEST PAIN Verified 02/17/21 09:34 TO LEFT SHOULDER, bacitracin [BACITRACIN] Allergy Intermediate BURNING, Verified 02/17/21 09:34 ITCHING aripiprazole [From Abilify] Allergy Mild ITCHING Verified 02/17/21 09:34 iopromide [From Ultravist] Allergy Mild DIZZY, DRY Verified 02/17/21 09:34 THROAT AND MOUTH risperidone [From Risperdal] Allergy Unknown high level Verified 02/17/21 09:34 prolactin Vistra 650 Allergy Intermediate attention Uncoded 08/26/20 10:04 issues Review of Systems Constitutional: Constitutional: Denies body ache(s), Denies chills, Denies fatigue, Denies fever(s), Denies headache(s), Denies malaise and Denies weakness Eyes: Eyes: Denies diplopia ENT: Denies vertigo, Denies dizziness, Denies otalgia, Denies headache(s), Denies mouth pain, Denies post nasal drip, Denies sinus pain, Denies sinus pressure, Denies sore throat and Denies throat swelling Cardiovascular: Cardiovascular: Denies chest pain, Denies syncope, Denies leg edema, Denies lightheadedness, Denies Loss of Consciousness, Denies palpitations and Denies dyspnea Respiratory: Respiratory: Denies chest congestion, Denies cough, Reports pain on inspiration and Denies dyspnea Gastrointestinal: Gastrointestinal: Denies abdominal pain, Denies hematochezia, Denies constipation, Denies diarrhea and Denies vomiting Genitourinary: Genitourinary: Reports no additional female genitourinary complaints Musculoskeletal: Musculoskeletal: Reports back pain (chronic) Integumentary/Breasts: Skin/Breast: Reports breast pain, Denies rash, Denies skin pain, Denies skin swelling and Reports skin ulcer Neurologic: Denies confusion, Denies vertigo, Denies dizziness, Denies syncope, Denies headache(s) and Denies weakness Psychiatric: Psychiatric: Denies anxiety, Denies confusion and Denies depression Endocrine: Endocrine: Denies fatigue and Denies palpitations Allergic/Immunologic: Allergic/Immunologic: Denies throat swelling PMFSH Past Medical History Medical History Fibroadenoma of breast Fibromyalgia GERD with esophagitis Hypothyroid IBS (irritable colon syndrome) Morbid obesity with BMI of 45.0-49.9, adult PCOS (polycystic ovarian syndrome) PTSD (post-traumatic stress disorder) Surgical History History of appendectomy History of section History of D&C History of hand surgery History of lumpectomy of right breast Hx of appendectomy Family History Family History Father Acral gangrene Mother Cancer Father Diabetes Gangrene Mother Diabetes Hypertension Thyroid disease Cervical cancer Dementia Son In good health Maternal Grandmother Breast cancer Sister Breast cancer Other Mental health disorder Social History Social History Household Members: Children Housing: Apartment Alcohol intake: never Patient Tobacco Use Status: Never used Tobacco Advance Directives: No Advance Directives Information Provided: Yes Current occupational status: disabled Physical Exam Vital Signs: Vital Signs: Last Vital Signs Temp 97.7 F 04/09/21 13:54 Pulse 77 04/09/21 13:54 Resp 16 04/09/21 13:54 BP 139/88 04/09/21 13:54 Pulse Ox 95 04/09/21 13:54 Body Mass Index 51.5 Const: General: no acute distress, alert and awake; No confusion Nutritional Appearance: obese morbidly obese Orientation/consciousness: patient oriented x3 and No confusion Limitations: no limitations HENMT: Head: Yes normal to inspection, Yes normocephalic and Yes atraumatic Ears: hearing grossly normal bilaterally, external ears normal, TM's normal bilaterally and EAC's normal General nose exam: Normal external nose present Face and sinus: Yes normal facial exam and Yes sinuses nontender Mouth: Normal oral and palatal mucosa present Throat: Yes posterior oropharynx normal Eyes: Conjunctivae: conjunctivae normal Pupils: Equal, round and reactive pupils present EOM: EOMs intact bilaterally Neck: Neck: Yes full ROM, Yes no lymphadenopathy and Yes supple Chest: Breast/axilla inspection: normal inspection of the breasts, normal inspection of the axillae (Abscess scarring in axilla) and Other (Superficial abscess base of left breast) Breast/axilla palpation: normal palpation of the breasts, normal palpation of the axillae, no axillary lymphadenopathy and other (Tender left upper quadrant) Chest/axillae images: 1. Small superficial abscess, nontender no cellulitis 2. Tender to palpation, no nodule or masses appreciated Resp: Effort & Inspection: normal respiratory effort and able to speak in complete sentences Auscultation: clear to auscultation bilaterally, no crackles, no rales, no rhonchi and no wheezes Cardio: Rate: regular rate Rhythm: regular rhythm Heart sounds: S1 normal heart sound present and S2 normal heart sound present GI: Inspection: Yes normal to inspection Palpation (GI): Soft to palpation, nontender, no guarding and not rigid Percussion: Yes normal to percussion Auscultation: normal bowel sounds Skin: Other: Nontender superficial abscess 2 cm in diameter at base of left breast Neuro: General: patient oriented x3 and No confusion Cranial nerves: Yes Equal, round and reactive pupils present Extrem: General: Yes normal to inspection and Yes full ROM Psych: Appearance: grossly normal Affect: normal affect Attitude: cooperative Thought process: Normal thought process present Course Course Course Narrative: 41-year-old obese female presents for left breast pain that started 3 days ago. She has achy pain in the left side of her left breast. The pain radiates to her left upper back but she states she has chronic back pain and her back pain is not any worse. Patient states the pain is pleuritic, and worse lying down. On exam, patient is mildly tachycardic, is vital signs otherwise stable. Lungs clear. No tenderness to palpate on ribs or thoracic spine. Patient is tender over her left upper quadrant of her left breast, no nodule or mass is appreciated. Patient does have small superficial abscess base of left breast. Will get chest x-ray, labs, D-dimer, troponin, EKG, will ultrasound left breast. Patient is very anxious about breast pain. Reevaluation(s) Reevaluation #1: Chest x-rays negative, labs remarkable only for mildly elevated LFTs, D-dimer is negative, troponin is negative, ultrasound of breast is normal. Will send pt home on dicloxicillin, and f/u with PCP Medical Decision Making Lab Data Result diagrams: 04/09/21 13:52 04/09/21 13:52 Labs: Lab Results 04/09/21 04/09/21 04/09/21 Range/Units 10: 13:52 13:52 WBC 8.3 (4.8-10.8) X10*3/uL RBC 4.01 L (4.20-5.50) X10*6/uL Hgb 10.9 L (12.0-16.0) g/dl Hct 32.1 L (37-47) % MCV 80.0 (80-98) fL MCH 27.2 (27.0-33.0) pg MCHC 34.0 (31.0-35.0) g/dl RDW 13.8 (11.0-16.0) % Plt Count 324 (160-400) X10*3/uL MPV 9.2 L (9.4-12.3) fL Immature Gran % (Auto) 0.6 H (0.0-0.4) % Neut % (Auto) 61.0 (45-73) % Lymph % (Auto) 28.3 (20-40) % [place] % (Auto) 6.1 (2-11) % Eos % (Auto) 3.6 (0-4) % Baso % (Auto) 0.4 (0-2) % Lymph # (Auto) 2.4 (1.2-4.9) X10*3/uL [place] # (Auto) 0.5 (0.1-1.2) X10*3/uL Eos # (Auto) 0.3 (0.0-0.4) X10*3/uL Baso # (Auto) 0.0 (0.0-0.2) X10*3/uL Abs Immat Gran (auto) 0.05 H (0.00-0.03) X10*3/uL Absolute Neuts (auto) 5.1 (2.0-8.3) X10*3/uL Absolute Nucleated RBC 0.000 (0.0-0.012) X10*3/uL Nucleated RBC % (auto) 0.0 (0.0-0.2) /100WBC D-Dimer < 200 NG/ML Sodium (135-145) mmol/L Potassium (3.3-5.1) mmol/L Chloride (96-108) mmol/L Carbon Dioxide (22-29) mmol/L Anion Gap (12-20) BUN (9-16) mg/dL Creatinine (0.5-1.4) mg/dL Estim Creat Clear Calc Estimated GFR POC Glucose 163 H (60-115) mg/dL Random Glucose (60-115) mg/dL Calcium (8.4-10.2) mg/dL Total Bilirubin (0.0-1.0) mg/dL AST (5-31) U/L ALT (0-31) U/L Alkaline Phosphatase (39-117) U/L Troponin I High Sens (<3.5-17.0) ng/L Total Protein (6.5-8.0) g/dL Albumin (3.5-5.0) g/dL 04/09/21 04/09/21 Range/Units 13:52 13:52 WBC (4.8-10.8) X10*3/uL RBC (4.20-5.50) X10*6/uL Hgb (12.0-16.0) g/dl Hct (37-47) % MCV (80-98) fL MCH (27.0-33.0) pg MCHC (31.0-35.0) g/dl RDW (11.0-16.0) % Plt Count (160-400) X10*3/uL MPV (9.4-12.3) fL Immature Gran % (Auto) (0.0-0.4) % Neut % (Auto) (45-73) % Lymph % (Auto) (20-40) % [place] % (Auto) (2-11) % Eos % (Auto) (0-4) % Baso % (Auto) (0-2) % Lymph # (Auto) (1.2-4.9) X10*3/uL [place] # (Auto) (0.1-1.2) X10*3/uL Eos # (Auto) (0.0-0.4) X10*3/uL Baso # (Auto) (0.0-0.2) X10*3/uL Abs Immat Gran (auto) (0.00-0.03) X10*3/uL Absolute Neuts (auto) (2.0-8.3) X10*3/uL Absolute Nucleated RBC (0.0-0.012) X10*3/uL Nucleated RBC % (auto) (0.0-0.2) /100WBC D-Dimer NG/ML Sodium 138 (135-145) mmol/L Potassium 4.6 (3.3-5.1) mmol/L Chloride 106 (96-108) mmol/L Carbon Dioxide 23 (22-29) mmol/L Anion Gap 14 (12-20) BUN 21 H (9-16) mg/dL Creatinine 0.69 (0.5-1.4) mg/dL Estim Creat Clear Calc 144.8 Estimated GFR > 60 POC Glucose (60-115) mg/dL Random Glucose 92 (60-115) mg/dL Calcium 9.1 (8.4-10.2) mg/dL Total Bilirubin 0.3 (0.0-1.0) mg/dL AST 40 H (5-31) U/L ALT 49 H (0-31) U/L Alkaline Phosphatase 79 (39-117) U/L Troponin I High Sens < 3.5 (<3.5-17.0) ng/L Total Protein 7.5 (6.5-8.0) g/dL Albumin 3.9 (3.5-5.0) g/dL ECG Data Interpretation: Sinus at a rate of 86, [place] 134, QRS 86, QTC 440, normal axis, Q-waves in leads 3 and AVF, inverted T-wave in lead 3. No ST elevation or depression Discharge Plan Discharge Clinical Impression: Mastitis without abscess Patient Disposition: Home, Self-Care Additional Instructions: Please call your primary care provider for follow-up appointment. Your ultrasound did not show any abnormality. Please take the antibiotics as prescribed, give them 2 days to work, he may also use a warm pack for your left breast. Please also take Tylenol. UA take 1000 mg of Tylenol every 8 hours, not to exceed 3000 mg in 24 hours. Please return to emergency room for any new or concerning symptoms. Prescriptions: New dicloxacillin 500 mg capsule 500 mg PO Q6H 7 Days Qty: 28 RF: 0 No Action loratadine [Allergy Relief (loratadine)] 10 mg tablet 10 mg PO DAILY 90 Days Qty: 90 RF: 1 metronidazole [Metrogel Vaginal] 0.75 % gel 1 appful vaginal BEDTIME 5 Days Qty: 70 RF: 0 furosemide 20 mg tablet 20 mg PO DAILY PRN (Reason: edema) Qty: 30 RF: 3 fluticasone propionate 50 mcg/actuation spray,suspension 2 spray intranasal ONCE Qty: 16 RF: 2 omeprazole 20 mg capsule,delayed release(DR/EC) 20 mg PO DAILY 90 Days Qty: 90 RF: 1 levothyroxine 88 mcg tablet 88 mcg PO DAILY 90 Days Qty: 90 RF: 1 bupropion HCl 150 mg tablet extended release 24 hr 150 mg PO QAM Qty: 90 RF: 2 cholecalciferol (vitamin D3) 50 mcg (2,000 unit) capsule 50 mcg PO QAM 90 Days Qty: 90 RF: 2 trazodone 50 mg tablet 50 mg PO BEDTIME Qty: 90 RF: 2 metformin 500 mg tablet 500 mg PO DAILY Qty: 30 RF: 5 cyclobenzaprine 10 mg tablet 10 mg PO BEDTIME RF: 0 gabapentin 300 mg capsule 300 mg PO BEDTIME 90 Days Qty: 90 RF: 1 riboflavin (vitamin B2) 100 mg tablet 200 mg PO BID RF: 0 acetaminophen 650 mg tablet extended release 650 mg PO Q8H PRNRF: 0 propranolol 20 mg tablet 20 mg PO QPM RF: 0 albuterol sulfate 90 mcg/actuation HFA aerosol inhaler 2 puff inhalation Q6H 30 Days Qty: 8.5 RF: 1 naproxen 500 mg tablet 500 mg PO Q12H PRN (Reason: pain) Qty: 60 RF: 2 Emgality Pen 120 mg/mL pen injector subcut RF: 0 clotrimazole 1 % cream 1 appl topical BID 28 Days Qty: 28 RF: 0 medroxyprogesterone 10 mg tablet 10 mg PO DAILY 10 Days Qty: 10 RF: 3
[2021-04-09] MEDS: oxyCODONE HCl Immed Release 5 MG TABLET PO (12:03)
[2021-04-09 12:05] VITALS: BP 146/90; PULSE 80; RESP 16; O2SAT 98
--- NOTE | 2021-04-09 12:07 | PC.NURSE ---
pt alert and oriented x4, vss, pt reports L breast x3 days. She states the pain is concerning because she has family history of breast cancer therefore she came to the ed for further evaluation. she denies sob/headache/dizziness/n/v. no fever/chills. pt also states she did have headache yesterday because her kitchen sink was leaking but once she got it fixed her headache went away. no other symptoms reported.
[2021-04-09 13:54] VITALS: BP 139/88; PULSE 77; RESP 16; TEMP 36.5; O2SAT 95
[2021-04-09 14:02] LABS: MANUAL DIFF FLAG NO
[2021-04-09 14:03] LABS: Basophils Percent Auto 0.4 % (0-2); Eosinophils Absolute Auto 0.3 X10*3/uL (0.0-0.4); Eosinophils Percent Auto 3.6 % (0-4); Hematocrit 32.1 % (37-47); Hemoglobin 10.9 g/dl (12.0-16.0); Imm Gran Abs Auto 0.05 X10*3/uL (0.00-0.03); Imm Gran Pct Auto 0.6 % (0.0-0.4); Lymphocytes Absolute Auto 2.4 X10*3/uL (1.2-4.9); Lymphocytes Percent Auto 28.3 % (20-40); Mean Corpuscular Hemoglobin 27.2 pg (27.0-33.0); Mean Platelet Volume 9.2 fL (9.4-12.3); Monocytes Absolute Auto 0.5 X10*3/uL (0.1-1.2); Monocytes Percent Auto 6.1 % (2-11); Neutrophils Absolute Auto 5.1 X10*3/uL (2.0-8.3); Platelet Count 324 X10*3/uL (160-400); Red Blood Count 4.01 X10*6/uL (4.20-5.50); Red Cell Distribution Width 13.8 % (11.0-16.0); White Blood Count 8.3 X10*3/uL (4.8-10.8)
[2021-04-09 14:15] LABS: D Dimer < 200 NG/ML
[2021-04-09 14:22] LABS: Alanine Aminotransferase 49 U/L (0-31); Albumin Level 3.9 g/dL (3.5-5.0); Alkaline Phosphatase 79 U/L (39-117); Anion Gap 14 (12-20); Aspartate Amino Transferase 40 U/L (5-31); Bilirubin Total 0.3 mg/dL (0.0-1.0); Blood Urea Nitrogen 21 mg/dL (9-16); Calcium 9.1 mg/dL (8.4-10.2); Carbon Dioxide 23 mmol/L (22-29); Chloride 106 mmol/L (96-108); Creatinine Clr Calc Pharmacy 144.8; Estimated Glomerular Filt Rate > 60; Glucose Random 92 mg/dL (60-115); Potassium 4.6 mmol/L (3.3-5.1); Sodium 138 mmol/L (135-145); Total Protein 7.5 g/dL (6.5-8.0); Troponin-I High Sensitivity < 3.5 ng/L (<3.5-17.0)
== END 2021-04-09 15:52 | disposition home or self-care (01) ==
PROVIDERS: Physician Assistant; Emergency Provider Emergency Medicine Emergency Medical Services; PCP Family Medicine
DX: N61.0 Mastitis without abscess (principal); E11.9 Type 2 diabetes mellitus without complications
CPT/HCPCS: 36415; 71045; 76642; 80053; 82947; 84484; 85025; 85379; 93005; 99284

== ENCOUNTER 2021-04-22 14:54 | Emergency (ER) | payer OTHER, SELFPAY ==
[2021-04-22 15:06] VITALS: BP 151/98; PULSE 94; RESP 16; TEMP 36.5; O2SAT 98; BMI 34.3
--- NOTE | 2021-04-22 16:24 | ED_ITS ---
HPI - General Adult General Chief complaint: Abdominal Pain Stated complaint: UTI Time Seen by Provider: 04/22/21 16:06 Source: patient Mode of arrival: ambulatory Limitations: no limitations History of Present Illness HPI narrative: Patient comes emergency room complaining dysuria and foul- smelling urine, bladder spasms for the last 3-4 days. Patient also complaining of vaginal itching without discharge. Patient denies hematuria, fever or chills. Patient complaining of mild bilateral flank pain. Patient states that she recently finished a course of antibiotics for mastitis, shortly after she started developing vaginal itching. Related Data Home Medications Medication Instructions Recorded Confirmed galcanezumab-gnlm 120 mg/mL mg SUBCUT 05/08/20 12/05/20 subcutaneous pen injector (Emgality Pen) acetaminophen 650 mg 650 mg PO Q8H PRN 05/29/20 12/05/20 tablet,extended release riboflavin (vitamin B2) 100 mg 200 mg PO BID 05/29/20 12/05/20 tablet cyclobenzaprine 10 mg tablet 10 mg PO BEDTIME 08/07/20 12/05/20 propranolol 20 mg tablet 20 mg PO QPM 12/05/20 12/05/20 Previous Rx's Medication Instructions Recorded clotrimazole 1 % topical cream 1 appl TOPICAL BID 28 Days #28 g 05/22/20 loratadine 10 mg tablet (Allergy 10 mg PO DAILY 90 Days #90 tab 06/17/20 Relief (loratadine)) gabapentin 300 mg capsule 300 mg PO BEDTIME 90 Days #90 cap 08/07/20 medroxyprogesterone 10 mg tablet 10 mg PO DAILY 10 Days #10 tab 10/23/20 metronidazole 0.75 % vaginal gel 1 appful VAGINAL BEDTIME 5 Days 10/25/20 (Metrogel Vaginal) #70 g albuterol sulfate 90 mcg/actuation 2 puff INHALATION Q6H 30 Days #8.5 12/05/20 aerosol inhaler g naproxen 500 mg tablet 500 mg PO Q12H PRN #60 tab 12/05/20 furosemide 20 mg tablet 20 mg PO DAILY PRN #30 tab 01/20/21 omeprazole 20 mg capsule,delayed 20 mg PO DAILY 90 Days #90 cap 01/28/21 release levothyroxine 88 mcg tablet 88 mcg PO DAILY 90 Days #90 tab 02/23/21 bupropion HCl 150 mg 24 hr tablet, 150 mg PO QAM #90 tab 02/26/21 extended release cholecalciferol (vitamin D3) 50 50 mcg PO QAM 90 Days #90 cap 02/26/21 mcg (2,000 unit) capsule trazodone 50 mg tablet 50 mg PO BEDTIME #90 tab 02/26/21 metformin 500 mg tablet 500 mg PO DAILY #30 tab 04/07/21 dicloxacillin 500 mg capsule 500 mg PO Q6H 7 Days #28 cap 04/09/21 fluticasone propionate 50 2 spray INTRANASAL ONCE #16 g 04/14/21 mcg/actuation nasal spray,suspension L.acid,gasseri,plant,rham-B.animalis-cran 1 cap PO DAILY 14 Days #14 cap 04/22/21 5 billion cell-250mg capsule (up4 Probiotics Women's) levofloxacin 500 mg tablet 500 mg PO DAILY #6 tab 04/22/21 Allergies Allergy/AdvReac Type Severity Reaction Status Date / Time metronidazole [From FLAGYL] Allergy Severe CHEST PAIN Verified 02/17/21 09:34 TO LEFT SHOULDER, bacitracin [BACITRACIN] Allergy Intermediate BURNING, Verified 02/17/21 09:34 ITCHING aripiprazole [From Abilify] Allergy Mild ITCHING Verified 02/17/21 09:34 iopromide [From Ultravist] Allergy Mild DIZZY, DRY Verified 02/17/21 09:34 THROAT AND MOUTH risperidone [From Risperdal] Allergy Unknown high level Verified 02/17/21 09:34 prolactin Vistra 650 Allergy Intermediate attention Uncoded 08/26/20 10:04 issues Review of Systems Review of Systems: Constitutional : No Weight loss, No Fever, No Chills, No Night Sweats, No Fatigue, No Malaise ENT/Mouth : No Hearing loss, No Ear Pain, No Nasal Congestion, No Sinus Pain, No Hoarseness, No sore throat, No Rhinorrhea, No Swallowing Difficulty Eyes: No Eye Pain, No Swelling, No Redness, No Foreign Body, No Discharge, No Vision Changes Cardiovascular : No Chest Pain, No SOB, No Dyspnea on Exertion, No Orthopnea, No Edema, No Palpitations Respiratory : No Cough, No Sputum, No Wheezing, No Smoke Exposure, No Dyspnea Gastrointestinal : No Nausea, No Vomiting, No Diarrhea, No Constipation, complaining of suprapubic pain with urination. No Hematochezia, No Melena Genitourinary : no irregular bleeding, complaining of Dysuria, No Urinary Frequency, No Hematuria, No Urinary Incontinence, No Urgency, No Flank Pain, No Urinary Flow Changes, No Hesitancy. c/o vaginal/vulvar itching Musculoskeletal : No joint pain, No Myalgias, No Joint Swelling Skin : No Skin Lesions, No rash Neuro : No Weakness, No Numbness, No Paresthesias, No Loss of Consciousness, No Dizziness, No Headache Psych : No Anxiety/Panic, No Depression, No SI/HI/AH/VH, No Social Issues, Heme/Lymph: No Bruising, No Bleeding,No Lymphadenopathy Endocrine : No Polyuria, No Polydipsia, No Temperature Intolerance PMFSH Past Medical History Medical History Fibroadenoma of breast Fibromyalgia GERD with esophagitis Hypothyroid IBS (irritable colon syndrome) Morbid obesity with BMI of 45.0-49.9, adult PCOS (polycystic ovarian syndrome) PTSD (post-traumatic stress disorder) Surgical History History of appendectomy History of section History of D&C History of hand surgery History of lumpectomy of right breast Hx of appendectomy Family History Family History Father Acral gangrene Mother Cancer Father Diabetes Gangrene Mother Diabetes Hypertension Thyroid disease Cervical cancer Dementia Son In good health Maternal Grandmother Breast cancer Sister Breast cancer Other Mental health disorder Social History Social History Household Members: Children Housing: Apartment Alcohol intake: never Patient Tobacco Use Status: Never used Tobacco Advance Directives: No Advance Directives Information Provided: Yes Patient : No Current occupational status: disabled Physical Exam Vital Signs: Vital Signs: Last Vital Signs Temp 97.7 F 04/22/21 15:06 Pulse 94 04/22/21 15:06 Resp 16 04/22/21 15:06 BP 151/98 H 04/22/21 15:06 Pulse Ox 98 04/22/21 15:06 Body Mass Index 34.3 Const: Other: Appearance: Alert. Oriented X3. No acute distress. Eyes: Pupils equal, round and reactive to light. ENT: Pharynx normal. Neck: Normal inspection. Neck supple. No lymph nodes noted. No crepitus CVS: Normal heart rate and rhythm. Pulses normal. Normal S1 and S2 Respiratory: No respiratory distress. Breath sounds normal. No Wheezing. No rales Abdomen: Soft and nontender. No rigidity. No distention. : Vulvar erythema, no discharge, superficial scratch willis from itching Skin: Skin warm and dry. Normal skin color. Normal skin turgor. Extremities: No lower extremity edema. No Lacerations. No Rash Neuro: Oriented X 3. No motor deficit. No sensory deficit. Moving all extermities. No slurred speech. Course Course Course Narrative: Patient does have a UTI. On physical exam patient did have high pain but patient states she does have flank pain. Borderline pyelonephritis. Patient has not had any fever or chills, sepsis is not suspected. Patient given the 1st dose of levofloxacin in the emergency room, and 1 time dose of p.o. fluconazole Medical Decision Making Lab Data Labs: Lab Results 04/22/21 Range/Units 16:39 Urine Color YELLOW Urine Appearance CLOUDY Urine pH 6.5 (5.0-8.0) Ur Specific [place] 1.025 (1.005-1.025) Urine Protein TRACE (NEG-TRACE) MG/DL Urine Glucose (UA) NEG (NEG) MG/DL Urine Ketones NEG (NEG) MG/DL Urine Blood 3+ H (NEG) Urine Nitrite NEG (NEG) Ur Leukocyte Esterase 1+ H (NEG) Discharge Plan Discharge Clinical Impression: UTI (urinary tract infection), Candidiasis of genitalia Patient Disposition: Home, Self-Care Instructions: Urinary Tract Infection in Women (ED), Yeast Infection (ED) Additional Instructions: Please follow-up with your primary care physician tomorrow. If you have any worsening or new symptoms, please return to the emergency room or call 911 Prescriptions: New levofloxacin 500 mg tablet 500 mg PO DAILY Qty: 6 RF: 0 up4 Probiotics Women's 5 billion cell- 250 mg capsule 1 cap PO DAILY 14 Days Qty: 14 RF: 0 No Action loratadine [Allergy Relief (loratadine)] 10 mg tablet 10 mg PO DAILY 90 Days Qty: 90 RF: 1 metronidazole [Metrogel Vaginal] 0.75 % gel 1 appful vaginal BEDTIME 5 Days Qty: 70 RF: 0 furosemide 20 mg tablet 20 mg PO DAILY PRN (Reason: edema) Qty: 30 RF: 3 omeprazole 20 mg capsule,delayed release(DR/EC) 20 mg PO DAILY 90 Days Qty: 90 RF: 1 levothyroxine 88 mcg tablet 88 mcg PO DAILY 90 Days Qty: 90 RF: 1 bupropion HCl 150 mg tablet extended release 24 hr 150 mg PO QAM Qty: 90 RF: 2 cholecalciferol (vitamin D3) 50 mcg (2,000 unit) capsule 50 mcg PO QAM 90 Days Qty: 90 RF: 2 trazodone 50 mg tablet 50 mg PO BEDTIME Qty: 90 RF: 2 metformin 500 mg tablet 500 mg PO DAILY Qty: 30 RF: 5 fluticasone propionate 50 mcg/actuation spray,suspension 2 spray intranasal ONCE Qty: 16 RF: 3 dicloxacillin 500 mg capsule 500 mg PO Q6H 7 Days Qty: 28 RF: 0 cyclobenzaprine 10 mg tablet 10 mg PO BEDTIME RF: 0 gabapentin 300 mg capsule 300 mg PO BEDTIME 90 Days Qty: 90 RF: 1 riboflavin (vitamin B2) 100 mg tablet 200 mg PO BID RF: 0 acetaminophen 650 mg tablet extended release 650 mg PO Q8H PRNRF: 0 propranolol 20 mg tablet 20 mg PO QPM RF: 0 albuterol sulfate 90 mcg/actuation HFA aerosol inhaler 2 puff inhalation Q6H 30 Days Qty: 8.5 RF: 1 naproxen 500 mg tablet 500 mg PO Q12H PRN (Reason: pain) Qty: 60 RF: 2 Emgality Pen 120 mg/mL pen injector subcut RF: 0 clotrimazole 1 % cream 1 appl topical BID 28 Days Qty: 28 RF: 0 medroxyprogesterone 10 mg tablet 10 mg PO DAILY 10 Days Qty: 10 RF: 3
[2021-04-22 16:48] LABS: Appearance Urine CLOUDY; Color Urine YELLOW; Glucose Urine UA NEG (NEG); Leukocyte Esterase Urine 1+ (NEG); Nitrite Urine NEG (NEG); PH 6.5 (5.0-8.0); Specific Gravity - Urine 1.025 (1.005-1.025); UACC Culture Trigger YES; Urine Blood 3+ (NEG); Urine Ketones NEG (NEG); Urine Protein TRACE MG/DL (NEG-TRACE)
[2021-04-22 16:59] LABS: Bacteria Urine TRACE /LPF; Mucus Urine TRACE /LPF; Squamous Epithelial Cell Urine TRACE /LPF
[2021-04-22] MEDS: levoFLOXacin 500 MG TABLET PO (17:19)
[2021-04-22] MEDS: Fluconazole 150 MG TABLET PO (17:19)
== END 2021-04-22 17:25 | disposition home or self-care (01) ==
PROVIDERS: Emergency Provider Emergency Medicine; PCP Family Medicine
DX: N39.0 Urinary tract infection, site not specified (principal); B37.3 Candidiasis of vulva and vagina; Z79.899 Other long term (current) drug therapy
CPT/HCPCS: 81001; 87086; 87088; 87186; 99283

== ENCOUNTER 2021-07-23 12:07 | Outpatient (REF) | payer OTHER, SELFPAY ==
[2021-07-24 04:56] LABS: CT PCR NOT DETECTED (Not Detect.); NG PCR NOT DETECTED (Not Detect.)
== END 2021-07-23 12:08 | disposition home or self-care (01) ==
LOC: HO.LAB 12:07
PROVIDERS: PCP Family Medicine; Visit Provider Obstetrics & Gynecology
DX: N93.9 Abnormal uterine and vaginal bleeding, unspecified (principal)
CPT/HCPCS: 87491; 87591; 99212

== ENCOUNTER → 2021-07-30 11:11 | Outpatient (BNVA) | payer OTHER, SELFPAY | PROVIDERS: PCP Physician Assistant; Referring Provider Physician Assistant; Visit Provider Physician Assistant | DX: K21.9 Gastro-esophageal reflux disease without esophagitis (principal); R10.13 Epigastric pain | CPT/HCPCS: 99212 ==

== ENCOUNTER → 2021-08-07 10:47 | Outpatient (REF) | payer OTHER, SELFPAY | LOC: HO.SL 10:47 | PROVIDERS: PCP Family Medicine; Visit Provider Family Medicine | DX: G47.33 Obstructive sleep apnea (adult) (pediatric) (principal); E66.01 Morbid (severe) obesity due to excess calories | CPT/HCPCS: 95806 ==

== ENCOUNTER 2021-10-21 08:14 | Outpatient (REF) | payer OTHER, SELFPAY ==
--- NOTE | ~2021-10-21 | FL_ITS ---
EXAMINATION: FL BARIUM SWALLOW CLINICAL INFORMATION: Gastroesophageal reflux disease without esophagitis COMPARISON: Upper GI June 2016 TECHNIQUE: Barium swallow examination is performed using fluoroscopic evaluation in addition to multiple fluoroscopic spot views. The patient is imaged both upright and prone and using both thick and thin sulfate along with effervescent granules. The patient became nauseous after swallowing barium tablet. Fluoroscopy time: 0.6 minutes DAP: 4.2 Gycm2 Images: 35 FINDINGS: The swallowing mechanism is normal. No aspiration or penetration is seen. There is significant gastroesophageal reflux. There is mucosal irregularity of the mid and distal thoracic esophagus suggestive of esophagitis. No mass, stricture or hernia is seen. FL/FL barium swallow IMPRESSION: Significant gastroesophageal reflux and esophagitis.
== END 2021-10-21 08:15 | disposition home or self-care (01) ==
LOC: HO.XRAY 08:14
PROVIDERS: Visit Provider Physician Assistant
DX: K21.9 Gastro-esophageal reflux disease without esophagitis (principal); R10.13 Epigastric pain
CPT/HCPCS: 74220

== ENCOUNTER 2021-10-29 09:44 | Outpatient (REF) | payer OTHER, SELFPAY | END 2021-10-29 09:45 | disposition home or self-care (01) | LOC: HO.LAB 09:44 | PROVIDERS: PCP Physician Assistant; Visit Provider Obstetrics & Gynecology | DX: N93.9 Abnormal uterine and vaginal bleeding, unspecified (principal) | CPT/HCPCS: 58100; 81025; 88305 ==

== ENCOUNTER → 2021-12-01 09:34 | Outpatient (BNVA) | payer OTHER, SELFPAY | PROVIDERS: PCP Family Medicine; Visit Provider Obstetrics & Gynecology | DX: N93.9 Abnormal uterine and vaginal bleeding, unspecified (principal); N64.52 Nipple discharge; N64.3 Galactorrhea not associated with childbirth; B37.2 Candidiasis of skin and nail; R87.610 Atypical squamous cells of undetermined significance on cytologic smear of cervix (ASC-US) | CPT/HCPCS: 99212 ==

== ENCOUNTER → 2021-12-12 11:58 | Outpatient (BNVA) | payer OTHER, SELFPAY | PROVIDERS: PCP Family Medicine; Visit Provider Nurse Practitioner Family | DX: M79.7 Fibromyalgia (principal); M25.561 Pain in right knee | CPT/HCPCS: 99212 ==

== ENCOUNTER 2021-12-17 11:09 | Outpatient (REF) | payer OTHER, SELFPAY ==
--- NOTE | ~2021-12-17 | MM_ITS ---
EXAMINATION: MM SCREENING DIGITAL BREAST TOMOSYNTHESIS, BILATERAL CLINICAL INFORMATION: Screening. Asymptomatic. Family history breast cancer, sister. Benign excisional biopsy right breast 2004 (fibroadenoma). The lifetime risk of breast cancer based on the Tyrer-Cuzick Model is 24%. COMPARISON: Mammography: 12/16/2020, 12/15/2019, 10/04/2018 TECHNIQUE: Digital breast tomosynthesis is performed in both the craniocaudal and mediolateral oblique views along with computer-aided detection (CAD). Synthesized 2D images are generated from the tomosynthesis. Additional left cleavage view is provided. FINDINGS: There are scattered areas of fibroglandular density (ACR BI-RADS breast composition Category b). There are no significant masses, abnormal calcifications, or other abnormalities. Parenchymal pattern is similar to prior studies, bordering on heterogeneously dense. There is no developing density or architectural abnormality. The axilla and skin contours are unremarkable. No significant changes. MM/MM tomosynthesis screening BI IMPRESSION: No mammographic evidence of malignancy. ASSESSMENT: BI-RADS 1: Negative RECOMMENDATION: 1. Routine annual mammography screening. 2. The lifetime risk of breast cancer based on the Tyrer-Cuzick Model is 24%. Additional annual adjunct screening with breast MRI may be of benefit in women with a risk score of 20% or greater. This patient's information was entered into a reminder system with a target due date for their next mammogram.
== END 2021-12-17 11:10 | disposition home or self-care (01) ==
LOC: HO.MAMMO 11:09
PROVIDERS: PCP Family Medicine; Visit Provider Obstetrics & Gynecology
DX: Z12.31 Encounter for screening mammogram for malignant neoplasm of breast (principal)
CPT/HCPCS: 77063; 77067

== ENCOUNTER 2021-12-29 11:36 | Outpatient (REF) | payer OTHER, SELFPAY ==
[2022-01-01 18:21] LABS: HPV mRNA E6/E7 rflx Not Detected (Not Detected)
== END 2021-12-29 11:37 | disposition home or self-care (01) ==
LOC: HO.LAB 11:36
PROVIDERS: PCP Family Medicine; Visit Provider Obstetrics & Gynecology
DX: Z12.4 Encounter for screening for malignant neoplasm of cervix (principal); Z11.51 Encounter for screening for human papillomavirus (HPV); R87.610 Atypical squamous cells of undetermined significance on cytologic smear of cervix (ASC-US); N64.52 Nipple discharge
CPT/HCPCS: 57454; 81025; 87624; 88142; 88305; 99212

== ENCOUNTER 2022-01-13 11:30 | Outpatient (REF) | payer OTHER, SELFPAY ==
[2022-01-13 12:26] LABS: Hematocrit 34.1 % (37.0-47.0); Hemoglobin 11.2 g/dl (12.0-16.0); Mean Corpuscular HGB Conc 32.8 g/dl (31.0-35.0); Mean Corpuscular Hemoglobin 25.8 pg (27.0-33.0); Mean Corpuscular Volume 78.6 fL (80.0-98.0); Mean Platelet Volume 10.5 fL (9.4-12.3); Platelet Count 273 X10*3/uL (160-400); Red Blood Count 4.34 X10*6/uL (4.20-5.50); Red Cell Distribution Width 13.4 % (11.0-16.0); White Blood Count 7.3 X10*3/uL (4.8-10.8)
[2022-01-13 12:44] LABS: HCG Quantitative < 2 mIU/mL
[2022-01-13 12:47] LABS: Alanine Aminotransferase 47 U/L (0-31); Albumin Level 4.1 g/dL (3.5-5.0); Alkaline Phosphatase 84 U/L (39-117); Anion Gap 13 (12-20); Aspartate Amino Transferase 34 U/L (5-31); Bilirubin Total 0.3 mg/dL (0.0-1.0); Blood Urea Nitrogen 16 mg/dL (9-16); Calcium 9.3 mg/dL (8.4-10.2); Carbon Dioxide 24 mmol/L (22-29); Chloride 106 mmol/L (96-108); Estimated Glomerular Filt Rate > 60; Glucose Random 138 mg/dL (60-115); Potassium 3.9 mmol/L (3.3-5.1); Sodium 139 mmol/L (135-145); Total Protein 7.8 g/dL (6.5-8.0)
[2022-01-14 23:46] LABS: Prolactin 4.7 ng/mL
== END 2022-01-13 11:31 | disposition home or self-care (01) ==
LOC: HO.LAB 11:30
PROVIDERS: Absent Provider Obstetrics & Gynecology; PCP Family Medicine; Visit Provider Nurse Practitioner Family
DX: M79.7 Fibromyalgia (principal); N93.9 Abnormal uterine and vaginal bleeding, unspecified; N64.3 Galactorrhea not associated with childbirth; N87.0 Mild cervical dysplasia; Z91.89 Other specified personal risk factors, not elsewhere classified
CPT/HCPCS: 36415; 80053; 84146; 84702; 85027; 99212

== ENCOUNTER → 2022-01-28 13:32 | Outpatient (BNVA) | payer OTHER, SELFPAY | PROVIDERS: PCP Family Medicine; Visit Provider Physician Assistant | DX: K21.9 Gastro-esophageal reflux disease without esophagitis (principal); K59.09 Other constipation; E66.9 Obesity, unspecified; Z79.899 Other long term (current) drug therapy | CPT/HCPCS: 99212; Q3014 ==

== ENCOUNTER 2022-02-03 14:14 | Outpatient (REF) | payer OTHER, SELFPAY ==
--- NOTE | ~2022-02-03 | XR_ITS ---
EXAMINATION: XR KNEE, LEFT CLINICAL INFORMATION: Pain COMPARISON: None TECHNIQUE: Four views of the left knee. FINDINGS: There is no visible acute fracture, dislocation or subluxation. The tricompartment joint space is maintained normal. No loose bodies, bony erosive changes or joint effusion. XR/XR knee LT 3V IMPRESSION: Unremarkable left knee exam.
== END 2022-02-03 14:15 | disposition home or self-care (01) ==
LOC: HO.XRAY 14:14
PROVIDERS: PCP Family Medicine; Visit Provider Nurse Practitioner Family
DX: M25.562 Pain in left knee (principal)
CPT/HCPCS: 73562

== ENCOUNTER → 2022-02-09 12:18 | Outpatient (BNVA) | payer OTHER, SELFPAY | PROVIDERS: PCP Family Medicine; Visit Provider Obstetrics & Gynecology | DX: N93.9 Abnormal uterine and vaginal bleeding, unspecified (principal) | CPT/HCPCS: 99212 ==

== ENCOUNTER 2022-02-26 09:59 | Outpatient (REF) | payer OTHER, SELFPAY ==
--- NOTE | 2022-02-26 10:02 | EMG_ITS ---
Right median and ulnar motor and sensory studies were performed. Right radial sensory study was performed and needle examination was performed. IMPRESSION: This is an unremarkable study with no evidence of median or ulnar neuropathy or radiculopathy. MD EITAN Barber/KATI / [id number]
== END 2022-02-26 10:00 | disposition home or self-care (01) ==
LOC: HO.NEURO 09:59
PROVIDERS: PCP Family Medicine; Visit Provider Family Medicine
DX: M25.531 Pain in right wrist (principal); R20.0 Anesthesia of skin
CPT/HCPCS: 95886; 95909

== ENCOUNTER → 2022-03-12 11:46 | Outpatient (BNVA) | payer OTHER, SELFPAY | PROVIDERS: PCP Family Medicine; Visit Provider Physician Assistant | DX: K59.09 Other constipation (principal); K58.9 Irritable bowel syndrome, unspecified; K21.9 Gastro-esophageal reflux disease without esophagitis | CPT/HCPCS: Q3014 ==

== ENCOUNTER 2022-04-03 10:42 | Outpatient (REF) | payer OTHER, SELFPAY ==
--- NOTE | ~2022-04-03 | XR_ITS ---
EXAMINATION: XR FOOT, LEFT CLINICAL INFORMATION: Pain left lateral foot COMPARISON: None TECHNIQUE: AP, lateral, and oblique views of the left foot. FINDINGS: There is no visible fracture or bony abnormality. The soft tissues are normal. The ankle mortise and subtalar joints are normal. A small retrocalcaneal and calcaneal enthesophytes. The soft tissues are normal. XR/XR foot LT min 3V IMPRESSION: Small retrocalcaneal and calcaneal enthesophytes. No visible acute fracture or dislocation seen. No abnormality seen along the lateral foot
== END 2022-04-03 10:43 | disposition home or self-care (01) ==
LOC: HO.XRAY 10:42
PROVIDERS: Visit Provider Family Medicine
DX: M67.472 Ganglion, left ankle and foot (principal)
CPT/HCPCS: 73630

== ENCOUNTER 2022-04-03 11:32 | Emergency (ER) | payer OTHER, SELFPAY ==
[2022-04-03 11:50] VITALS: BP 151/77; PULSE 72; RESP 18; TEMP 36.7; O2SAT 99; BMI 51.1
--- NOTE | 2022-04-03 12:24 | ED_ITS ---
HPI - General Adult General Chief complaint: Extremity Injury, Lower Stated complaint: cyst on L foot Time Seen by Provider: 04/03/22 12:24 Source: patient Mode of arrival: ambulatory Limitations: no limitations History of Present Illness HPI narrative: Patient is a 42 year old assigned female at with a history of type 2 DM, fibromyalgia, hypothyroidism, and GERD presenting to the emergency department today with cyst on her left foot she would like removed. Patient states that she noticed a cyst on her left foot and went to her PCP office today. Patient states that her PCP ordered an x-ray but that she wants it to be removed and the PCP wouldn't do that. Patient denies any dizziness, lightheadedness, abdominal pain, nausea, vomiting, fever, chills, blurry vision, double vision, loss of vision, chest pain, difficulty breathing, shortness of breath, back pain, night sweats, pain with urination, increased urinary frequency, increased urinary urgency, blood in her urine or stool, syncope or a near syncopal episode, recent trauma or falls, bowel incontinence, bladder incontinence, bowel retention, bladder retention, or any other complaints at this time. Onset (ago): month(s) Location: left and lower extremity Radiation: non-radiation Severity: mild Severity scale (1-10): 3 Quality: aching and dull Pain Consistency: intermittent Relieving factors: none Exacerbating factors: none Associated symptoms: denies other symptoms Treatments prior to arrival: none Related Data Home Medications Medication Instructions Recorded Confirmed galcanezumab-gnlm 120 mg/mL mg subcut 05/08/20 03/12/22 subcutaneous pen injector (Emgality Pen) acetaminophen 650 mg 650 mg PO Q8H PRN 05/29/20 03/12/22 tablet,extended release riboflavin (vitamin B2) 100 mg 200 mg PO BID 05/29/20 03/12/22 tablet propranolol 20 mg tablet 20 mg PO QPM 12/05/20 03/12/22 atorvastatin 10 mg tablet 10 mg PO BEDTIME 07/23/21 03/12/22 chlorthalidone 25 mg tablet 25 mg PO DAILY 07/30/21 03/12/22 hydrocortisone 1 % topical cream appl topical DAILY PRN 01/28/22 03/12/22 Previous Rx's Medication Instructions Recorded clotrimazole 1 % topical cream 1 appl topical BID 4 weeks #28 05/22/20 grams metronidazole 0.75 % (37.5 mg/5 1 appful vaginal BEDTIME 5 days 10/25/20 gram) vaginal gel (Metrogel #70 grams Vaginal) albuterol sulfate 90 mcg/actuation 2 puff inhalation Q6H shortness of 12/05/20 aerosol inhaler breath or wheezing 30 days #8.5 grams naproxen 500 mg tablet 500 mg PO Q12H PRN pain #60 tabs 12/05/20 bupropion HCl 150 mg 24 hr tablet, 150 mg PO QAM #90 tabs 02/26/21 extended release cholecalciferol (vitamin D3) 50 50 mcg PO QAM 90 days #90 caps 02/26/21 mcg (2,000 unit) capsule trazodone 50 mg tablet 50 mg PO BEDTIME #90 tabs 02/26/21 gabapentin 300 mg capsule 300 mg PO BEDTIME 90 days #90 caps 06/12/21 omeprazole 20 mg capsule,delayed 20 mg PO DAILY 90 days #90 caps 06/12/21 release levothyroxine 88 mcg tablet 88 mcg PO DAILY 90 days #90 tabs 08/30/21 loratadine 10 mg tablet (Allergy 10 mg PO DAILY 90 days #90 tabs 09/22/21 Relief (loratadine)) clotrimazole-betamethasone 1 1 appl topical BID 5 days #45 grams 12/01/21 %-0.05 % topical cream ferrous sulfate 325 mg (65 mg 325 mg PO DAILY 30 days #30 tabs 01/13/22 iron) tablet,delayed release medroxyprogesterone 10 mg tablet 10 mg PO DAILY 10 days #30 tabs 01/13/22 (Provera) bisacodyl 10 mg rectal suppository 10 mg ID DAILY PRN constipation 01/28/22 (Dulcolax (bisacodyl)) #20 ea docusate sodium 100 mg capsule 200 mg PO BEDTIME #60 caps 01/28/22 (Colace) hydrocortisone 2.5 % topical cream 1 appl ID BID PRN hemorrhoids #30 01/28/22 with perineal applicator grams (Proctozone-HC) methylcellulose (laxative) 500 mg 500 mg PO BID #60 tabs 01/28/22 tablet (Citrucel) omeprazole 20 mg capsule,delayed 20 mg PO BID 30 days #60 caps 01/28/22 release polyethylene glycol 3350 17 17 g PO DAILY #510 grams 01/28/22 gram/dose oral powder (Miralax) cyclobenzaprine 10 mg tablet 10 mg PO BEDTIME #30 tabs 03/05/22 fluticasone propionate 50 2 spray intranasal ONCE #16 grams 03/05/22 mcg/actuation nasal spray,suspension metformin 500 mg tablet 500 mg PO DAILY #90 tabs 03/05/22 Allergies Allergy/AdvReac Type Severity Reaction Status Date / Time metronidazole [From FLAGYL] Allergy Severe CHEST PAIN Verified 04/03/22 11:50 TO LEFT SHOULDER, bacitracin [BACITRACIN] Allergy Intermediate BURNING, Verified 04/03/22 11:50 ITCHING aripiprazole [From Abilify] Allergy Mild ITCHING Verified 04/03/22 11:50 iopromide [From Ultravist] Allergy Mild DIZZY, DRY Verified 04/03/22 11:50 THROAT AND MOUTH risperidone [From Risperdal] Allergy Unknown high level Verified 04/03/22 11:50 prolactin Vistra 650 Allergy Intermediate attention Uncoded 12/12/21 12:24 issues Review of Systems Constitutional: Constitutional: Reports no additional constitutional complaints, Denies chills, Denies fever(s) and Denies night sweats Eyes: Eyes: Reports no additional eye complaints, Denies blurry vision, Denies change in vision, Denies diplopia, Denies eye discharge, Denies loss of vision and Denies eye pain ENT: Denies dizziness Cardiovascular: Cardiovascular: Reports no additional cardiovascular complaints, Denies chest pain, Denies lightheadedness, Denies Loss of Consciousness and Denies dyspnea Respiratory: Respiratory: Reports no additional respiratory complaints and Denies dyspnea Gastrointestinal: Gastrointestinal: Reports no additional gastrointestinal complaints, Denies abdominal pain, Denies melena, Denies hematochezia, Denies c hange in bowel habits and Denies change in stool character Genitourinary: Genitourinary: Denies hematuria, Denies urinary frequency, Denies dysuria, Denies urinary incontinence, Denies urinary hesitancy and Denies urinary urgency Musculoskeletal: Musculoskeletal: Reports no additional musculoskeletal complaints, Denies numbness and Denies tingling Integumentary/Breasts: Comments: left foot cyst Neurologic: Denies dizziness, Denies loss of vision, Denies numbness and Denies tingling Psychiatric: Psychiatric: Reports no additional psychiatric complaints Endocrine: Endocrine: Reports no additional endocrine complaints Hematologic/Lymphatic: Hematologic/Lymphatic: Reports no additional hematologic/lymphatic complaints Allergic/Immunologic: Allergic/Immunologic: Reports no additional allergic/immunologic complaints PMFSH Past Medical History Attestation statement: The following information was validated with the patient. Source: old records reviewed Medical History Fibroadenoma of breast Fibromyalgia GERD with esophagitis Hypothyroid IBS (irritable colon syndrome) Morbid obesity with BMI of 45.0-49.9, adult PCOS (polycystic ovarian syndrome) PTSD (post-traumatic stress disorder) Surgical History History of appendectomy History of section History of D&C History of esophagogastroduodenoscopy (EGD) History of hand surgery History of lumpectomy of right breast Hx of appendectomy Family History Family History Father Acral gangrene Mother Cancer Father Diabetes Gangrene Mother Diabetes Hypertension Thyroid disease Cervical cancer Dementia Son In good health Maternal Grandmother Breast cancer Sister Breast cancer Other Mental health disorder Social History Social History Household Members: Children Housing: Apartment Alcohol intake: never Patient Tobacco Use Status: Never used Tobacco Current occupational status: disabled Physical Exam ED Vital Signs: Vital Signs - 24 hr 04/03/22 11:50 Temperature 98.0 F Pulse Rate 72 Respiratory Rate 18 Blood Pressure 151/77 H Pulse Oximetry 99 Oxygen Delivery Method Room Air BMI result Body Mass Index 51.1 Const General: cooperative, no acute distress, alert and awake Nutritional Appearance: well nourished Orientation/consciousness: patient oriented x3 Limitations: no limitations HENMT Head: Yes normal to inspection and Yes atraumatic Ears: hearing grossly normal bilaterally and external ears normal General nose exam: Normal external nose present, no nasal discharge noted and no epistaxis Face and sinus: Yes normal facial exam, No abrasion and No laceration Mouth: Normal oral and palatal mucosa present, no drooling and no muffled voice Eyes General: appearance normal, both eyes and all related structures Periorbital: periorbital findings normal Eyelids: Yes eyelids normal Conjunctivae: conjunctivae normal Pupils: Equal, round and reactive pupils present EOM: EOMs intact bilaterally Neck Neck: Yes normal visual inspection, Yes full ROM and Yes no lymphadenopathy Chest Chest palpation & inspection: normal inspection of the chest Resp Effort & Inspection: normal respiratory effort and able to speak in complete sentences Auscultation: clear to auscultation bilaterally Cardio Rate: regular rate Rhythm: regular rhythm GI Inspection: Yes normal to inspection Skin Other: 2 small cysts to the left lateral aspect of the foot along the border between dorsal and plantar planes of the foot, no fluctuance, no erythema, no warmth Neuro General: patient oriented x3 and moves all extremities Cranial nerves: Yes Equal, round and reactive pupils present Cognition (Neuro): normal cognition Motor exam (neuro): 5/5 motor strength present throughout Sensory Exam: Normal double simultaneous stimulation for sensation Coordination: [id number] test normal Extrem General: Yes normal to inspection, Yes full ROM and Yes capillary refill normal Psych Appearance: grossly normal Mental Status: mental status grossly normal Affect: normal affect Attitude: cooperative Thought process: Normal thought process present Thought content: Normal thought content present Insight: Good insight present (Psych) Medical Decision Making MDM Narrative Medical decision making narrative: Patient is a 42 year old assigned female at with a history of type 2 DM, hypothyroidism, GERD, and fibromyalgia presenting to the emergency department today with cysts on the left foot. Patient's physical exam showed 2 cysts to the lateral aspect of the left foot on the border between the dorsal and plantar planes with no erythema, no warmth, and no fluctuance noted. Patient's left foot x-ray showed no acute soha process. Patient's clinical presentation is most consistent with 2 sebaceous cysts that are not appropriate for removal in the emergency room setting. I explained my physical exam findings as well as all test results to the patient. I answered all questions asked by the patient. I stressed the importance of the patient taking her medication as prescribed. I stressed the importance of the patient following up with her primary care provider, a general surgeon, and a curtains and draperies salesperson. I stressed the importance of the patient returning to the emergency department immediately if her symptoms were to worsen or if she were to develop any dizziness, shortness of breath, difficulty breathing, chest pain, blurry vision, loss of vision, nausea, vomiting, abdominal pain, fever, chills, back pain, or any other complaints. Patient verbalized agreement and understanding with this treatment plan and discharge. Medical Records Medical records reviewed: Yes I reviewed the patient's medical records. Imaging Data Left foot x-ray: Attestation: I personally reviewed and interpreted this imaging study as follows: My impression: No acute soha process. Discharge Plan Discharge Clinical Impression: Sebaceous cyst Patient Disposition: Home, Self-Care Instructions: Cyst (ED) Additional Instructions: Follow up with your primary care provider, a curtains and draperies salesperson or a general surgeon. Return to the emergency department immediately if your symptoms worsen or if you develop any dizziness, shortness of breath, difficulty breathing, chest pain, blurry vision, loss of vision, nausea, vomiting, abdominal pain, fever, chills, back pain, or any other complaints. Prescriptions: No Action metronidazole [Metrogel Vaginal] 0.75 % gel 1 appful vaginal BEDTIME 5 Days Qty: 70 0RF bupropion HCl 150 mg tablet extended release 24 hr 150 mg PO QAM Qty: 90 2RF cholecalciferol (vitamin D3) 50 mcg (2,000 unit) capsule 50 mcg PO QAM 90 Days Qty: 90 2RF trazodone 50 mg tablet 50 mg PO BEDTIME Qty: 90 2RF gabapentin 300 mg capsule 300 mg PO BEDTIME 90 Days Qty: 90 1RF omeprazole 20 mg capsule,delayed release(DR/EC) 20 mg PO DAILY 90 Days Qty: 90 1RF levothyroxine 88 mcg tablet 88 mcg PO DAILY 90 Days Qty: 90 1RF loratadine [Allergy Relief (loratadine)] 10 mg tablet 10 mg PO DAILY 90 Days Qty: 90 1RF ferrous sulfate 325 mg (65 mg iron) tablet,delayed release (DR/EC) 325 mg PO DAILY 30 Days Qty: 30 1RF cyclobenzaprine 10 mg tablet 10 mg PO BEDTIME Qty: 30 1RF metformin 500 mg tablet 500 mg PO DAILY Qty: 90 1RF fluticasone propionate 50 mcg/actuation spray,suspension 2 spray intranasal ONCE Qty: 16 2RF riboflavin (vitamin B2) 100 mg tablet 200 mg PO BID acetaminophen 650 mg tablet extended release 650 mg PO Q8H PRN propranolol 20 mg tablet 20 mg PO QPM albuterol sulfate 90 mcg/actuation HFA aerosol inhaler 2 puff inhalation Q6H 30 Days Qty: 8.5 1RF naproxen 500 mg tablet 500 mg PO Q12H PRN (Reason: pain) Qty: 60 2RF Emgality Pen 120 mg/mL pen injector subcut clotrimazole 1 % cream 1 appl topical BID 28 Days Qty: 28 0RF Rx Instructions: apply to both feet twice daily for 4 weeks chlorthalidone 25 mg tablet 25 mg PO DAILY clotrimazole-betamethasone 1-0.05 % cream 1 appl topical BID 5 Days Qty: 45 0RF Rx Instructions: Apply to the affected area medroxyprogesterone [Provera] 10 mg tablet 10 mg PO DAILY 10 Days Qty: 30 0RF Rx Instructions: start Provera 1 tablet daily from day 15-24 cyclically every months, day 1 being 1st day of menses atorvastatin 10 mg tablet 10 mg PO BEDTIME hydrocortisone 1 % cream topical DAILY PRN polyethylene glycol 3350 [Miralax] 17 gram/dose powder 17 g PO DAILY Qty: 510 2RF omeprazole 20 mg capsule,delayed release(DR/EC) 20 mg PO BID 30 Days Qty: 60 5RF docusate sodium [Colace] 100 mg capsule 200 mg PO BEDTIME Qty: 60 5RF Citrucel 500 mg tablet 500 mg PO BID Qty: 60 5RF bisacodyl [Dulcolax (bisacodyl)] 10 mg suppository 10 mg ID DAILY PRN (Reason: constipation) Qty: 20 0RF hydrocortisone [Proctozone-HC] 2.5 % cream with perineal applicator 1 appl ID BID PRN (Reason: hemorrhoids) Qty: 30 3RF Rx Instructions: apply ID BID prn Referrals: [facility] General Surgeons [Provider Group] (Call to establish and follow up with a general surgeon. ) Azeem Arreola DPM [Physician] - (Call to establish and follow up with a curtains and draperies salesperson. ) Sunitha Rosales MD [Primary Care Provider] - Interventions: ED Discharge Assessment Last Done: 04/03/22 12:43 Discharge Date/Time: 04/03/22 12:43 Print Language: Danish
== END 2022-04-03 12:43 | disposition home or self-care (01) ==
PROVIDERS: Emergency Provider Student in an Organized Health Care Education/Training Program; PCP Family Medicine
DX: L72.3 Sebaceous cyst (principal); E11.9 Type 2 diabetes mellitus without complications; Z79.899 Other long term (current) drug therapy
CPT/HCPCS: 99282

== ENCOUNTER → 2022-04-08 09:16 | Outpatient (BNVA) | payer OTHER, SELFPAY | PROVIDERS: PCP Family Medicine; Visit Provider Surgery | DX: R22.42 Localized swelling, mass and lump, left lower limb (principal) | CPT/HCPCS: 10021; 10160; 99202 ==

== ENCOUNTER 2022-04-10 10:00 | Outpatient (RCR) | payer OTHER, SELFPAY ==
--- NOTE | 2022-03-20 14:27 | MHC.PT.EP ---
[facility] [place] Office [place] Office [place] Office [address] Nathalia Valenzuela [address] [phone] F: [phone] F: [phone] F: [phone] F: [phone] Physical Therapy Plan of Care Date of Evaluation: Date of Surgery: NA Diagnosis: L KNEE PAIN Assessment: Pt IS 42 YO F REFERRED TO PT FROM [facility]NA[facility] (RHEUMATOLOGY) WITH L KNEE PAIN. Pt REPORTS VARIOUS BOUTS OF PT OVER THE YEARS. REPORTS RECENT KNEE TWISTING INJURY (TRYING TO PREVENT FALL) WITH RESULTANT SWELLING/PAIN L MEDIAL KNEE ( NEEDLE TYPE PAIN) . MAY HAVE INJURED MENISCUS. PRESENTS WITH LIMITED L KNEE FLEXION AND L QUAD WEAKNESS WITH REPORT OF LIMITED FUNCTIONAL MOBILITY. REPORTS SHE WOULD LIKE TO START THE WT MANAGEMENT PROGRAM, BUT IS HAVING TROUBLE EXERCISING BECAUSE OF KNEE PAIN. SHOULD BENEFIT FROM PT TO ADDRESS THESE ISSUES OF NOTE, Pt WITH SMALL BUMP L LAT FOOT (ED TO SPEAK WITH MD) WHICH IS SORE (NOT OPENED BUT Pt QUESTIONS INFECTION (?)) Frequency and Duration: The patient will be seen 2X/WK X 6WKS Short Term Goals: 1. I HOME PROG WITH DC EX PLAN 2. INCREASED AWARENESS KNEE CARE (SELF TAPE IF INDICATED) Electric Meter Technician Goals: 1. IMPROVED LEFI 2. DECREASED L KNEE PAIN AT LEAST 50% WITH ADLS 3. INCREASED L KNEE FLEX 5-10 DEGREES Treatment Plan: Modalities to reduce pain, spasms and effusion. Manual therapy to restore motion and function. Therapeutic exercise to improve strength and flexibility. Neuromuscular re-education for posture and balance. Therapeutic activities to return to functional activities of daily living. Electronically signed by: TATA LANGE PT Please sign and return to therapist. Thank you for your referral.
--- NOTE | 2022-05-01 15:57 | MHC.PT.DC ---
[facility] [place] Office [place] Office [place] Office [address] [phone] F: [phone] F: [phone] F: [phone] F: [phone] Physical Therapy Discharge Report Diagnosis: L KNEE PAIN Date of Surgery: NA Date of Evaluation: 03/20/22 Date of Discharge: 05/01/22 Treatments to Date: 4 Cancellations to Date: No Shows to Date: Discharge Status: Recommend MD Follow-up Visit Non-compliance Discharge Summary: Pt LAST SEEN ON 04/10/22 WITH ASSESSMENT FRANKIE HORSE R HS..CHALLENGED WITH HL HS STRETCH..BETTER WITH LONGSIT C/O PLANTARFASCIITIS HEEL SPUR ON XRAY, L AND CYST L FOOT Pt THEN CANCELLED NEXT SESSION WITH NO SHOW X 3. WILL DC PER DEPARTMENT CX/NS POLICY Electronically signed by: TATA LANGE PT Please sign and return to therapist. Thank you for your referral.
== END 2022-05-01 15:58 | disposition home or self-care (01) ==
LOC: HO.PT 10:00
PROVIDERS: PCP Family Medicine; Visit Provider Nurse Practitioner Family
DX: M25.562 Pain in left knee (principal)
CPT/HCPCS: 97110; 97161; 97530; 97535

== ENCOUNTER 2022-04-29 11:04 | Outpatient (REF) | payer OTHER, SELFPAY | END 2022-04-29 11:05 | disposition home or self-care (01) | LOC: HO.LNP 11:04 | PROVIDERS: PCP Family Medicine; Visit Provider Surgery | DX: R22.42 Localized swelling, mass and lump, left lower limb (principal) | CPT/HCPCS: 11422; 88304 ==

== ENCOUNTER → 2022-05-08 10:22 | Outpatient (BNVA) | payer OTHER, SELFPAY | PROVIDERS: PCP Family Medicine; Visit Provider Surgery | DX: Z48.00 Encounter for change or removal of nonsurgical wound dressing (principal) | CPT/HCPCS: 99211 ==

== ENCOUNTER → 2022-05-21 09:33 | Outpatient (BNVA) | payer OTHER, SELFPAY | PROVIDERS: PCP Family Medicine; Visit Provider Surgery | DX: R22.42 Localized swelling, mass and lump, left lower limb (principal); K59.00 Constipation, unspecified | CPT/HCPCS: 99212 ==

== ENCOUNTER 2022-06-09 10:19 | Emergency (ER) | payer OTHER, SELFPAY ==
[2022-06-09 10:24] VITALS: BP 156/84; PULSE 90; RESP 18; TEMP 36.8; O2SAT 99; BMI 51.8
[2022-06-09 13:06] LABS: Basophils Percent Auto 0.5 % (0-2); Eosinophils Absolute Auto 0.4 X10*3/uL (0.0-0.4); Eosinophils Percent Auto 4.5 % (0-4); Hematocrit 33.4 % (37.0-47.0); Hemoglobin 11.1 g/dl (12.0-16.0); Imm Gran Abs Auto 0.02 X10*3/uL (0.00-0.03); Imm Gran Pct Auto 0.3 % (0.0-0.4); Lymphocytes Absolute Auto 2.1 X10*3/uL (1.2-4.9); Lymphocytes Percent Auto 26.6 % (20-40); MANUAL DIFF FLAG NO; Mean Corpuscular HGB Conc 33.2 g/dl (31.0-35.0); Mean Corpuscular Hemoglobin 25.7 pg (27.0-33.0); Mean Corpuscular Volume 77.3 fL (80.0-98.0); Mean Platelet Volume 9.4 fL (9.4-12.3); Monocytes Absolute Auto 0.5 X10*3/uL (0.1-1.2); Monocytes Percent Auto 5.8 % (2-11); Neutrophils Percent Auto 62.3 % (45-73); Platelet Count 247 X10*3/uL (160-400); Red Blood Count 4.32 X10*6/uL (4.20-5.50); Red Cell Distribution Width 13.7 % (11.0-16.0); White Blood Count 7.9 X10*3/uL (4.8-10.8)
[2022-06-09 13:28] LABS: Alanine Aminotransferase 52 U/L (0-31); Alkaline Phosphatase 82 U/L (39-117); Anion Gap 13 (12-20); Aspartate Amino Transferase 36 U/L (5-31); Bilirubin Total 0.4 mg/dL (0.0-1.0); Blood Urea Nitrogen 21 mg/dL (9-16); Calcium 9.1 mg/dL (8.4-10.2); Carbon Dioxide 27 mmol/L (22-29); Chloride 104 mmol/L (96-108); Creatinine Clr Calc Pharmacy 134.1; Estimated Glomerular Filt Rate > 60; Glucose Random 142 mg/dL (60-115); Potassium 4.4 mmol/L (3.3-5.1); Sodium 140 mmol/L (135-145); Total Protein 7.5 g/dL (6.5-8.0)
--- NOTE | 2022-06-09 17:30 | ED_ITS ---
HPI - Extremity Problem General Chief complaint: Extremity Problem Stated complaint: L foot infection Time Seen by Provider: 06/09/22 17:20 Source: patient Mode of arrival: ambulatory Limitations: no limitations History of Present Illness HPI Narrative: Patient comes to the nasal complaining left foot pain, in the area where she had a callus removed by surgery. Patient states that for the last couple of weeks, she has been applying triple antibiotic no relief. Patient denies any fever chills, no redness. Related Data Home Medications Medication Instructions Recorded Confirmed galcanezumab-gnlm 120 mg/mL mg subcut 05/08/20 05/21/22 subcutaneous pen injector (Emgality Pen) acetaminophen 650 mg 650 mg PO Q8H PRN 05/29/20 05/21/22 tablet,extended release riboflavin (vitamin B2) 100 mg 200 mg PO BID 05/29/20 05/21/22 tablet propranolol 20 mg tablet 20 mg PO QPM 12/05/20 05/21/22 atorvastatin 10 mg tablet 10 mg PO BEDTIME 07/23/21 05/21/22 chlorthalidone 25 mg tablet 25 mg PO DAILY 07/30/21 05/21/22 hydrocortisone 1 % topical cream appl topical DAILY PRN 01/28/22 05/21/22 Previous Rx's Medication Instructions Recorded clotrimazole 1 % topical cream 1 appl topical BID 4 weeks #28 05/22/20 grams metronidazole 0.75 % (37.5 mg/5 1 appful vaginal BEDTIME 5 days 10/25/20 gram) vaginal gel (Metrogel #70 grams Vaginal) albuterol sulfate 90 mcg/actuation 2 puff inhalation Q6H shortness of 12/05/20 aerosol inhaler breath or wheezing 30 days #8.5 grams naproxen 500 mg tablet 500 mg PO Q12H PRN pain #60 tabs 12/05/20 bupropion HCl 150 mg 24 hr tablet, 150 mg PO QAM #90 tabs 02/26/21 extended release cholecalciferol (vitamin D3) 50 50 mcg PO QAM 90 days #90 caps 02/26/21 mcg (2,000 unit) capsule trazodone 50 mg tablet 50 mg PO BEDTIME #90 tabs 02/26/21 gabapentin 300 mg capsule 300 mg PO BEDTIME 90 days #90 caps 06/12/21 omeprazole 20 mg capsule,delayed 20 mg PO DAILY 90 days #90 caps 06/12/21 release levothyroxine 88 mcg tablet 88 mcg PO DAILY 90 days #90 tabs 08/30/21 loratadine 10 mg tablet (Allergy 10 mg PO DAILY 90 days #90 tabs 09/22/21 Relief (loratadine)) clotrimazole-betamethasone 1 1 appl topical BID 5 days #45 grams 12/01/21 %-0.05 % topical cream ferrous sulfate 325 mg (65 mg 325 mg PO DAILY 30 days #30 tabs 01/13/22 iron) tablet,delayed release medroxyprogesterone 10 mg tablet 10 mg PO DAILY 10 days #30 tabs 01/13/22 (Provera) bisacodyl 10 mg rectal suppository 10 mg MO DAILY PRN constipation 01/28/22 (Dulcolax (bisacodyl)) #20 ea docusate sodium 100 mg capsule 200 mg PO BEDTIME #60 caps 01/28/22 (Colace) hydrocortisone 2.5 % topical cream 1 appl MO BID PRN hemorrhoids #30 01/28/22 with perineal applicator grams (Proctozone-HC) methylcellulose (laxative) 500 mg 500 mg PO BID #60 tabs 01/28/22 tablet (Citrucel) omeprazole 20 mg capsule,delayed 20 mg PO BID 30 days #60 caps 01/28/22 release polyethylene glycol 3350 17 17 g PO DAILY #510 grams 01/28/22 gram/dose oral powder (Miralax) fluticasone propionate 50 2 spray intranasal ONCE #16 grams 03/05/22 mcg/actuation nasal spray,suspension metformin 500 mg tablet 500 mg PO DAILY #90 tabs 03/05/22 cyclobenzaprine 10 mg tablet 10 mg PO BEDTIME #30 tabs 04/29/22 ibuprofen 600 mg tablet 600 mg PO Q8H PRN pain #20 tabs 05/08/22 cephalexin 500 mg capsule 500 mg PO BID #14 caps 06/09/22 tramadol 50 mg tablet 50 mg PO BID PRN pain #5 tabs 06/09/22 Allergies Allergy/AdvReac Type Severity Reaction Status Date / Time metronidazole [From FLAGYL] Allergy Severe CHEST PAIN Verified 05/21/22 09:44 TO LEFT SHOULDER, bacitracin [BACITRACIN] Allergy Intermediate BURNING, Verified 05/21/22 09:44 ITCHING aripiprazole [From Abilify] Allergy Mild ITCHING Verified 05/21/22 09:44 iopromide [From Ultravist] Allergy Mild DIZZY, DRY Verified 05/21/22 09:44 THROAT AND MOUTH risperidone [From Risperdal] Allergy Unknown high level Verified 05/21/22 09:44 prolactin Vistra 650 Allergy Intermediate attention Uncoded 05/21/22 09:44 issues Review of Systems Review of Systems: Constitutional : No Weight loss, No Fever, No Chills, No Night Sweats, No Fatigue, No Malaise ENT/Mouth : No Hearing loss, No Ear Pain, No Nasal Congestion, No Sinus Pain, No Hoarseness, No sore throat, No Rhinorrhea, No Swallowing Difficulty Eyes: No Eye Pain, No Swelling, No Redness, No Foreign Body, No Discharge, No Vision Changes Cardiovascular : No Chest Pain, No SOB, No Dyspnea on Exertion, No Orthopnea, No Edema, No Palpitations Respiratory : No Cough, No Sputum, No Wheezing, No Smoke Exposure, No Dyspnea Gastrointestinal : No Nausea, No Vomiting, No Diarrhea, No Constipation, No abdominal Pain, No Hematochezia, No Melena Genitourinary : no irregular bleeding, No Dysuria, No Urinary Frequency, No Hematuria, No Urinary Incontinence, No Urgency, No Flank Pain, No Urinary Flow Changes, No Hesitancy Musculoskeletal : No joint pain, No Myalgias, No Joint Swelling Skin : Complaining of pain around the callus Neuro : No Weakness, No Numbness, No Paresthesias, No Loss of Consciousness, No Dizziness, No Headache Psych : No Anxiety/Panic, No Depression, No SI/HI/AH/VH, No Social Issues, Heme/Lymph: No Bruising, No Bleeding,No Lymphadenopathy Endocrine : No Polyuria, No Polydipsia, No Temperature Intolerance PMFSH Past Medical History Medical History Constipation Fibroadenoma of breast Fibromyalgia GERD with esophagitis Hypothyroid IBS (irritable colon syndrome) Mass of left foot Morbid obesity with BMI of 45.0-49.9, adult PCOS (polycystic ovarian syndrome) PTSD (post-traumatic stress disorder) Surgical History History of appendectomy History of section History of D&C History of esophagogastroduodenoscopy (EGD) History of hand surgery History of lumpectomy of right breast Hx of appendectomy Family History Family History Father Acral gangrene Mother Cancer Father Diabetes Gangrene Mother Diabetes Hypertension Thyroid disease Cervical cancer Dementia Son In good health Maternal Grandmother Breast cancer Sister Breast cancer Other Mental health disorder Social History Social History Household Members: Children Housing: Apartment Alcohol intake: never Patient Tobacco Use Status: Never used Tobacco Current occupational status: disabled Physical Exam Vital Signs: Vital Signs: Last Vital Signs Temp 98.3 F 06/09/22 10:24 Pulse 90 06/09/22 10:24 Resp 18 06/09/22 10:24 BP 156/84 H 06/09/22 10:24 Pulse Ox 99 06/09/22 10:24 O2 Del Method 06/09/22 10:24 BMI result Body Mass Index 51.8 Const: Other: Appearance: Alert. Oriented X3. No acute distress. Eyes: Pupils equal, round and reactive to light. ENT: Pharynx normal. Neck: Normal inspection. Neck supple. No lymph nodes noted. No crepitus CVS: Normal heart rate and rhythm. Pulses normal. Normal S1 and S2 Respiratory: No respiratory distress. Breath sounds normal. No Wheezing. No rales Abdomen: Soft and nontender. No rigidity. No distention. Skin: Skin warm and dry. There is a 1.5 cm by 1.5 cm in the lateral aspect of the left foot. There is mild serosanguineous drainage, no abscess, no foul smell or erythema Extremities: No lower extremity edema. No Lacerations. No Rash Neuro: Oriented X 3. No motor deficit. No sensory deficit. Moving all extremities. No slurred speech. CN 2 through 12 grossly intact Psych: calm, cooperative, normal affect Course Course Course Narrative: I discussed the physical exam with the patient, is very painful to touch, likely because the skin is open rubbing against her socks and her shoes. Higher, we will cover her with antibiotics, patient is draining serosanguineous material, patient needs close follow-up with surgery and possibly wound clinic Medical Decision Making Lab Data Result Diagrams: 06/09/22 13:00 06/09/22 13:00 Labs: Lab Results 06/09/22 06/09/22 Range/Units 13:00 13:00 WBC 7.9 (4.8-10.8) X10*3/uL RBC 4.32 (4.20-5.50) X10*6/uL Hgb 11.1 L (12.0-16.0) g/dl Hct 33.4 L (37.0-47.0) % MCV 77.3 L (80.0-98.0) fL MCH 25.7 L (27.0-33.0) pg MCHC 33.2 (31.0-35.0) g/dl RDW 13.7 (11.0-16.0) % Plt Count 247 (160-400) X10*3/uL MPV 9.4 (9.4-12.3) fL Immature Gran % (Auto) 0.3 (0.0-0.4) % Neut % (Auto) 62.3 (45-73) % Lymph % (Auto) 26.6 (20-40) % [place] % (Auto) 5.8 (2-11) % Eos % (Auto) 4.5 H (0-4) % Baso % (Auto) 0.5 (0-2) % Lymph # (Auto) 2.1 (1.2-4.9) X10*3/uL [place] # (Auto) 0.5 (0.1-1.2) X10*3/uL Eos # (Auto) 0.4 (0.0-0.4) X10*3/uL Baso # (Auto) 0.0 (0.0-0.2) X10*3/uL Abs Immat Gran (auto) 0.02 (0.00-0.03) X10*3/uL Absolute Neuts (auto) 5.0 (2.0-8.3) x10*3/uL Absolute Nucleated RBC 0.000 (0.0-0.012) X10*3/uL Nucleated RBC % (auto) 0.0 (0.0-0.2) /100WBC Sodium 140 (135-145) mmol/L Potassium 4.4 (3.3-5.1) mmol/L Chloride 104 (96-108) mmol/L Carbon Dioxide 27 (22-29) mmol/L Anion Gap 13 (12-20) BUN 21 H (9-16) mg/dL Creatinine 0.74 (0.5-1.4) mg/dL Estim Creat Clear Calc 134.1 Estimated GFR > 60 Random Glucose 142 H (60-115) mg/dL Calcium 9.1 (8.4-10.2) mg/dL Total Bilirubin 0.4 (0.0-1.0) mg/dL AST 36 H (5-31) U/L ALT 52 H (0-31) U/L Alkaline Phosphatase 82 (39-117) U/L Total Protein 7.5 (6.5-8.0) g/dL Albumin 4.0 (3.5-5.0) g/dL Discharge Plan Discharge Clinical Impression: Foot ulcer Patient Disposition: Home, Self-Care Instructions: Diabetic Foot Ulcers (ED) Additional Instructions: Please follow-up with your primary care physician tomorrow. If you have any worsening or new symptoms, please return to the emergency room or call 911 Prescriptions: New cephalexin 500 mg capsule 500 mg PO BID Qty: 14 0RF tramadol 50 mg tablet 50 mg PO BID PRN (Reason: pain) Qty: 5 0RF No Action metronidazole [Metrogel Vaginal] 0.75 % gel 1 appful vaginal BEDTIME 5 Days Qty: 70 0RF bupropion HCl 150 mg tablet extended release 24 hr 150 mg PO QAM Qty: 90 2RF cholecalciferol (vitamin D3) 50 mcg (2,000 unit) capsule 50 mcg PO QAM 90 Days Qty: 90 2RF trazodone 50 mg tablet 50 mg PO BEDTIME Qty: 90 2RF gabapentin 300 mg capsule 300 mg PO BEDTIME 90 Days Qty: 90 1RF omeprazole 20 mg capsule,delayed release(DR/EC) 20 mg PO DAILY 90 Days Qty: 90 1RF levothyroxine 88 mcg tablet 88 mcg PO DAILY 90 Days Qty: 90 1RF loratadine [Allergy Relief (loratadine)] 10 mg tablet 10 mg PO DAILY 90 Days Qty: 90 1RF ferrous sulfate 325 mg (65 mg iron) tablet,delayed release (DR/EC) 325 mg PO DAILY 30 Days Qty: 30 1RF metformin 500 mg tablet 500 mg PO DAILY Qty: 90 1RF fluticasone propionate 50 mcg/actuation spray,suspension 2 spray intranasal ONCE Qty: 16 2RF cyclobenzaprine 10 mg tablet 10 mg PO BEDTIME Qty: 30 1RF riboflavin (vitamin B2) 100 mg tablet 200 mg PO BID acetaminophen 650 mg tablet extended release 650 mg PO Q8H PRN propranolol 20 mg tablet 20 mg PO QPM albuterol sulfate 90 mcg/actuation HFA aerosol inhaler 2 puff inhalation Q6H 30 Days Qty: 8.5 1RF naproxen 500 mg tablet 500 mg PO Q12H PRN (Reason: pain) Qty: 60 2RF Emgality Pen 120 mg/mL pen injector subcut clotrimazole 1 % cream 1 appl topical BID 28 Days Qty: 28 0RF Rx Instructions: apply to both feet twice daily for 4 weeks chlorthalidone 25 mg tablet 25 mg PO DAILY clotrimazole-betamethasone 1-0.05 % cream 1 appl topical BID 5 Days Qty: 45 0RF Rx Instructions: Apply to the affected area medroxyprogesterone [Provera] 10 mg tablet 10 mg PO DAILY 10 Days Qty: 30 0RF Rx Instructions: start Provera 1 tablet daily from day 15-24 cyclically every months, day 1 being 1st day of menses ibuprofen 600 mg tablet 600 mg PO Q8H PRN (Reason: pain) Qty: 20 0RF atorvastatin 10 mg tablet 10 mg PO BEDTIME hydrocortisone 1 % cream topical DAILY PRN polyethylene glycol 3350 [Miralax] 17 gram/dose powder 17 g PO DAILY Qty: 510 2RF omeprazole 20 mg capsule,delayed release(DR/EC) 20 mg PO BID 30 Days Qty: 60 5RF docusate sodium [Colace] 100 mg capsule 200 mg PO BEDTIME Qty: 60 5RF Citrucel 500 mg tablet 500 mg PO BID Qty: 60 5RF bisacodyl [Dulcolax (bisacodyl)] 10 mg suppository 10 mg MO DAILY PRN (Reason: constipation) Qty: 20 0RF hydrocortisone [Proctozone-HC] 2.5 % cream with perineal applicator 1 appl MO BID PRN (Reason: hemorrhoids) Qty: 30 3RF Rx Instructions: apply MO BID prn
== END 2022-06-09 18:04 | disposition home or self-care (01) ==
LOC: HO.ED 17:48
PROVIDERS: Emergency Provider Emergency Medicine; PCP Family Medicine
DX: E11.621 Type 2 diabetes mellitus with foot ulcer (principal); L97.429 Non-pressure chronic ulcer of left heel and midfoot with unspecified severity; E66.01 Morbid (severe) obesity due to excess calories; Z68.43 Body mass index [BMI] 50.0-59.9, adult; Z79.84 Long term (current) use of oral hypoglycemic drugs
CPT/HCPCS: 36415; 80053; 85025; 99282; 99283

== ENCOUNTER → 2022-06-10 09:18 | Outpatient (BNVA) | payer OTHER, SELFPAY | PROVIDERS: PCP Family Medicine; Visit Provider Physician Assistant Surgical | DX: S91.302A Unspecified open wound, left foot, initial encounter (principal); L84 Corns and callosities | CPT/HCPCS: 99212 ==

== ENCOUNTER 2022-06-26 12:33 | Outpatient (RCR) | payer OTHER, SELFPAY | END 2022-07-21 14:01 | disposition home or self-care (01) | LOC: HO.WCC 12:33 | PROVIDERS: Visit Provider Physician Assistant | DX: E11.621 Type 2 diabetes mellitus with foot ulcer (principal); L97.522 Non-pressure chronic ulcer of other part of left foot with fat layer exposed; T81.31XA Disruption of external operation (surgical) wound, not elsewhere classified, initial encounter; L84 Corns and callosities; I10 Essential (primary) hypertension | CPT/HCPCS: 11042; 99212 ==

== ENCOUNTER 2022-06-29 11:39 | Outpatient (REF) | payer OTHER, SELFPAY ==
[2022-06-29 12:47] LABS: Hemoglobin 11.2 g/dl (12.0-16.0); Mean Corpuscular HGB Conc 32.9 g/dl (31.0-35.0); Mean Corpuscular Hemoglobin 26.3 pg (27.0-33.0); Mean Corpuscular Volume 79.8 fL (80.0-98.0); Platelet Count 288 X10*3/uL (160-400); Red Blood Count 4.26 X10*6/uL (4.20-5.50); Red Cell Distribution Width 13.7 % (11.0-16.0); White Blood Count 7.3 X10*3/uL (4.8-10.8)
== END 2022-06-29 11:40 | disposition home or self-care (01) ==
LOC: HO.LAB 11:39
PROVIDERS: PCP Family Medicine; Visit Provider Obstetrics & Gynecology
DX: N93.9 Abnormal uterine and vaginal bleeding, unspecified (principal)
CPT/HCPCS: 36415; 85027; 99212

== ENCOUNTER → 2022-07-02 10:47 | Outpatient (BNVA) | payer OTHER, SELFPAY | PROVIDERS: PCP Family Medicine; Visit Provider Surgery | DX: R22.42 Localized swelling, mass and lump, left lower limb (principal) | CPT/HCPCS: 99212 ==

== ENCOUNTER → 2022-07-31 11:27 | Outpatient (BNVA) | payer OTHER, SELFPAY | PROVIDERS: PCP Physician Assistant; Visit Provider Nurse Practitioner Family | DX: M25.562 Pain in left knee (principal); R22.42 Localized swelling, mass and lump, left lower limb; M79.7 Fibromyalgia | CPT/HCPCS: 99212 ==

== ENCOUNTER 2022-08-07 10:39 | Day surgery (SDC) | payer OTHER, SELFPAY ==
[2022-08-04 09:57] VITALS: BMI 52.2
[2022-08-07 11:30] VITALS: BP 140/80; PULSE 83; RESP 18; TEMP 36.2; O2SAT 98; BMI 52.2
[2022-08-07 11:32] VITALS: BMI 52.2
[2022-08-07 11:32] LABS: Glucose, Whole Blood 141 mg/dL (60-115)
[2022-08-07 11:44] LABS: UPreg QC Valid YES; Urine Pregnancy NEGATIVE (NEGATIVE)
--- NOTE | 2022-08-07 11:56 | HO.ANESPROP2 ---
HPI - Anesthesia Eval Consult details Narrative: 42 yr old for left foot mass excision PMFSH Active Problems Active Problems: All Active Problems (Updated 06/11/22 @ 13:48 by Annita Frost PA-C) Open wound of left foot (Acute) Constipation (Acute) Mass of left foot (Acute) Poor historian (Acute) Chronic constipation (Acute) Dysplasia of cervix, low grade (FÁTIMA 1) (Acute) At high risk for breast cancer (Acute) ASCUS of cervix with negative high risk HPV (Acute) Skin candidiasis (Acute) Nipple discharge (Acute) Abnormal uterine bleeding (Acute) Cough variant asthma (Acute) Annual physical exam (Acute) IBS (irritable colon syndrome) (Acute) Morbid obesity with BMI of 45.0-49.9, adult (Acute) GERD with esophagitis (Acute) Cough (Acute) Hypothyroidism (Acute) Pituitary adenoma (Acute) Migraines (Acute) DMII (diabetes mellitus, type 2) (Acute) Allergic rhinitis (Acute) Fibromyalgia (Acute) GERD (gastroesophageal reflux disease) (Acute) Insomnia (Acute) Hypothyroidism (Acute) Right hip pain (Acute) Lumbar pain with radiation down right leg (Acute) Cough (Acute) Tinea pedis (Acute) Fibromyalgia (Acute) Lower extremity edema (Acute) Irritable bowel syndrome with both constipation and diarrhea (Acute) Esophageal erosions (Acute) GERD (gastroesophageal reflux disease) (Acute) Epigastric pain (Acute) Past Medical History Medical History Constipation Fibroadenoma of breast Fibromyalgia GERD with esophagitis Hypothyroid IBS (irritable colon syndrome) Mass of left foot Morbid obesity with BMI of 45.0-49.9, adult PCOS (polycystic ovarian syndrome) PTSD (post-traumatic stress disorder) Family History Family History Father Acral gangrene Mother Cancer Father Diabetes Gangrene Mother Diabetes Hypertension Thyroid disease Cervical cancer Dementia Son In good health Maternal Grandmother Breast cancer Sister Breast cancer Other Mental health disorder Family history of problems with anesthesia: No Surgical History Surgical History History of appendectomy History of section History of D&C History of esophagogastroduodenoscopy (EGD) History of hand surgery History of lumpectomy of right breast Hx of appendectomy History of Problems with Anesthesia: No Social History Social History Household Members: Children Housing: Apartment Alcohol intake: never Patient Tobacco Use Status: Never used Tobacco Use of substances other than those prescribed or required for medical reasons: No Are you DNR?: No Advance Directives: No Advance Directives Information Provided: Yes Current occupational status: disabled Meds Allergies Allergy/AdvReac Type Severity Reaction Status Date / Time metronidazole [From FLAGYL] Allergy Severe CHEST PAIN Verified 07/31/22 16:32 TO LEFT SHOULDER, bacitracin [BACITRACIN] Allergy Intermediate BURNING, Verified 07/31/22 16:32 ITCHING aripiprazole [From Abilify] Allergy Mild ITCHING Verified 07/31/22 16:32 iopromide [From Ultravist] Allergy Mild DIZZY, DRY Verified 07/31/22 16:32 THROAT AND MOUTH risperidone [From Risperdal] Allergy Unknown high level Verified 07/31/22 16:32 prolactin Vistra 650 Allergy Intermediate attention Uncoded 07/31/22 16:32 issues Home Medications Medication Instructions Recorded Confirmed Last Taken Type galcanezumab-gnlm 120 mg/mL mg subcut 05/08/20 07/02/22 Unknown History subcutaneous pen injector (Emgality Pen) acetaminophen 650 mg 650 mg PO Q8H PRN Pain 05/29/20 08/07/22 Unknown History tablet,extended release riboflavin (vitamin B2) 100 mg 200 mg PO BID 05/29/20 08/07/22 Unknown History tablet propranolol 20 mg tablet 20 mg PO QPM 12/05/20 08/07/22 Unknown History atorvastatin 10 mg tablet 10 mg PO BEDTIME 07/23/21 08/07/22 Unknown History chlorthalidone 25 mg tablet 25 mg PO DAILY 07/30/21 08/07/22 Unknown History hydrocortisone 1 % topical cream appl topical DAILY PRN 01/28/22 07/02/22 Unknown History Exam Exam Date and Time: August 07, 2022 1156 Height,Weight and Vital Signs: Height 5 ft 4 in Weight 137.892 kg Last Vital Signs Temp 97.1 F 08/07/22 11:30 Pulse 83 08/07/22 11:30 Resp 18 08/07/22 11:30 BP 140/80 H 08/07/22 11:30 Pulse Ox 98 08/07/22 11:30 O2 Del Method 08/07/22 11:30 Pertinent Lab Results Pertinent Lab Results: Laboratory Tests 08/07/22 08/07/22 11:18 11:28 POC Glucose 141 H Urine Test NEGATIVE Airway Mallampati Class: II TM Dist: >3cm Neck ROM: Full Heart: rrr Lungs: cta Assessment and Plan Assessment Anesthesia Assessment: Anesthesia Plan Discussed and Chart Reviewed Final Anesthetic Review Family History of Problems with Anesthesia: No History of Problems with Anesthesia: No NPO: Yes ASA Class: III Final Preanesthetic Review: No Changes in Pt Med Stat, Meds/Allgs Chart Reviewed, Consent Obtained/Reviewed and Anes Risks/Benef Reviewed Patient Risk: Intermediate Procedure Risk: Low Anesthetic Plan Anesthetic Plan: MAC: Disposition: Standard PACU
--- NOTE | 2022-08-07 13:16 | P.OP_ITS ---
Operative Note Operative Note Date of Service: 08/07/22 Narrative: Preop diagnosis: left foot subcutaneous mass, lateral aspect Postop diagnosis: The same Procedure: Excision of left foot subcutaneous mass, lateral aspect, about 2.5 cm in widest dimension Surgeon: Woo Velasco MD insurance account assistant: JOSE Frost the patient is a 42-year-old female with note of a mass on the lateral aspect of the left foot. This appeared to be subcutaneous. She had this excised last April, under local anesthesia and this showed fibrovascular tissue, with granulation and fibroid necrosis. This had occurred and had become larger in size. Since this has been causing her problems with regards to pain, tenderness and difficulty with wearing shoes, she wanted to proceed with excision. She understood the technique of excision and was aware of the risks benefits, and alternatives. She was brought to the operating room and placed supine under monitored anesthesia care. The left foot was prepped did in the usual fashion. A surgical time-out was done. The patient received cefazolin 2 g IV preoperatively. I made an elliptical incision on the skin surrounding this area of the lesion using a blade 15 after infiltration with lidocaine 1%. This was carried down through the full-thickness of the skin and subcutaneous fat with electrocautery. The lesion was then visualized. This appeared to be a poorly defined,, fibrotic tissue. I sharply excised this off of the rest of subcutaneous layer using Metzenbaum scissors as well as electrocautery. Again the widest dimension was about 2.5 cm. This was sent as a specimen. I irrigated the area. I closed the incision with full-thickness nylon 2-0 to rub sutures. Dressings were applied. The foot was wrapped in Suzanne roll. The procedure was completed. The patient tolerated procedure well. There were no immediate complications. Initial and final counts of sponges instruments were correct. Estimated blood loss was 5 cc. The patient was then transferred to the recovery room with stable vital signs. .
[2022-08-07 13:30] VITALS: BP 111/64; PULSE 62; RESP 12; TEMP 36.1; O2SAT 98
[2022-08-07 13:45] VITALS: BP 118/58; PULSE 68; RESP 16; O2SAT 97
[2022-08-07 14:00] VITALS: BP 140/81; PULSE 64; RESP 16; TEMP 36.4; O2SAT 100
== END 2022-08-07 14:50 | disposition home or self-care (01) ==
PROVIDERS: Anesthesiology; PCP Family Medicine; Visit Provider Surgery
PROC: (CPT 11423; principal; 2022-08-07 13:00)
DX: R22.42 Localized swelling, mass and lump, left lower limb (principal); M79.672 Pain in left foot; M79.7 Fibromyalgia; E11.9 Type 2 diabetes mellitus without complications; E66.01 Morbid (severe) obesity due to excess calories; Z68.42 Body mass index [BMI] 45.0-49.9, adult; K21.00 Gastro-esophageal reflux disease with esophagitis, without bleeding; Z79.84 Long term (current) use of oral hypoglycemic drugs; Z79.899 Other long term (current) drug therapy; Z79.1 Long term (current) use of non-steroidal anti-inflammatories (NSAID); Z88.8 Allergy status to other drugs, medicaments and biological substances; Z88.1 Allergy status to other antibiotic agents
CPT/HCPCS: 11423; 81025; 82947; 88312; J0690; J1885; J2405; J2795

== ENCOUNTER → 2022-08-17 13:12 | Outpatient (BNVA) | payer OTHER, SELFPAY | PROVIDERS: PCP Family Medicine; Visit Provider Surgery | DX: Z13.89 Encounter for screening for other disorder (principal) ==

== ENCOUNTER → 2022-08-24 09:54 | Outpatient (BNVA) | payer OTHER, SELFPAY | PROVIDERS: PCP Family Medicine; Visit Provider Surgery | DX: Z13.89 Encounter for screening for other disorder (principal) ==

== ENCOUNTER → 2022-09-09 11:24 | Outpatient (BNVA) | payer OTHER, SELFPAY | PROVIDERS: PCP Family Medicine; Referring Provider Family Medicine; Visit Provider Surgery ==

== ENCOUNTER → 2022-10-15 10:16 | Outpatient (BNVA) | payer OTHER, SELFPAY | PROVIDERS: PCP Family Medicine; Visit Provider Surgery | DX: R22.42 Localized swelling, mass and lump, left lower limb (principal) | CPT/HCPCS: 99212 ==

== ENCOUNTER 2022-12-14 11:08 | Emergency (ER) | payer OTHER, SELFPAY ==
--- NOTE | ~2022-12-14 | XR_ITS ---
EXAMINATION: XR KNEE, RIGHT XR ANKLE, RIGHT CLINICAL INFORMATION: Pain following a fall. COMPARISON: None available. TECHNIQUE: AP, bilateral oblique, and lateral views of the right knee. AP, mortise, and lateral views of the right ankle. FINDINGS: RIGHT KNEE: No acute fracture or dislocation. No joint space narrowing. Tiny medial compartment marginal osteophytes. No osseous erosion. No abnormal soft tissue calcification. No significant joint effusion. RIGHT ANKLE: No acute fracture or dislocation. The ankle mortise is maintained. No joint space narrowing or marginal osteophytes. No osseous erosion. Bone island within the distal tibia. Plantar and dorsal calcaneal enthesophytes. Prominent circumferential subcutaneous edema. No significant joint effusion. XR/XR knee RT 4V IMPRESSION: Right Knee: No acute osseous abnormality. Minimal medial compartment arthrosis. Right Ankle: Prominent circumferential subcutaneous edema without acute osseous abnormality.
--- NOTE | ~2022-12-14 | XR_ITS ---
EXAMINATION: XR KNEE, RIGHT XR ANKLE, RIGHT CLINICAL INFORMATION: Pain following a fall. COMPARISON: None available. TECHNIQUE: AP, bilateral oblique, and lateral views of the right knee. AP, mortise, and lateral views of the right ankle. FINDINGS: RIGHT KNEE: No acute fracture or dislocation. No joint space narrowing. Tiny medial compartment marginal osteophytes. No osseous erosion. No abnormal soft tissue calcification. No significant joint effusion. RIGHT ANKLE: No acute fracture or dislocation. The ankle mortise is maintained. No joint space narrowing or marginal osteophytes. No osseous erosion. Bone island within the distal tibia. Plantar and dorsal calcaneal enthesophytes. Prominent circumferential subcutaneous edema. No significant joint effusion. XR/XR ankle RT min 3V IMPRESSION: Right Knee: No acute osseous abnormality. Minimal medial compartment arthrosis. Right Ankle: Prominent circumferential subcutaneous edema without acute osseous abnormality.
[2022-12-14 11:55] VITALS: BP 132/69; PULSE 96; RESP 20; O2SAT 97; BMI 44.0
--- NOTE | 2022-12-14 11:58 | ED_ITS ---
HPI - General Adult General Chief complaint: Neck Pain/Injury Stated complaint: R leg pain/Swollen neck Time Seen by Provider: 12/14/22 12:06 Source: patient Mode of arrival: ambulatory Limitations: no limitations History of Present Illness HPI narrative: 42 y/o female with history of fibrolyalgia, frequent falls, constipation, asthma, hypothyroidism, GERD, morbid obesity, DM II, migraines who presents to the ER for evaluation of 2 separate complaints. She developed right sided neck swelling and discomfort with swallowing 3 days ago. It has been getting worse. When she eats the pain radiates to her right jaw and ear. She is able to tolerate solids and liquids, no difficulty swallowing. No sore throat, fevers, URI symptoms. She also reports RLE pain and weakness with difficulty walking since 11/26 after a fall. She reports history of recurrent falls and needs to use a cane. She states since this last fall she has had trouble with her right knee and right ankle. She has pain with dorsiflexion of the foot. No hip pain. She reports chronic thigh pains bilaterally due to fibromyalgia. No RUE weakness or pain. MD complaint: right sided neck pain x3 days and RLE pain x2 weeks Location: neck, right and lower extremity Radiation: non-radiation Severity: moderate Quality: aching Pain Consistency: intermittent Exacerbating factors: movement Associated symptoms: denies other symptoms Treatments prior to arrival: none Related Data Home Medications Medication Instructions Recorded Confirmed galcanezumab-gnlm 120 mg/mL mg subcut 05/08/20 07/02/22 subcutaneous pen injector (Emgality Pen) acetaminophen 650 mg 650 mg PO Q8H PRN Pain 05/29/20 08/07/22 tablet,extended release riboflavin (vitamin B2) 100 mg 200 mg PO BID 05/29/20 08/07/22 tablet propranolol 20 mg tablet 20 mg PO QPM 12/05/20 08/07/22 atorvastatin 10 mg tablet 10 mg PO BEDTIME 07/23/21 08/07/22 chlorthalidone 25 mg tablet 25 mg PO DAILY 07/30/21 08/07/22 hydrocortisone 1 % topical cream appl topical DAILY PRN 01/28/22 07/02/22 Previous Rx's Medication Instructions Recorded clotrimazole 1 % topical cream 1 appl topical BID 4 weeks #28 05/22/20 grams albuterol sulfate 90 mcg/actuation 2 puff inhalation Q6H shortness of 12/05/20 aerosol inhaler breath or wheezing 30 days #8.5 grams naproxen 500 mg tablet 500 mg PO Q12H PRN pain #60 tabs 12/05/20 bupropion HCl 150 mg 24 hr tablet, 150 mg PO QAM #90 tabs 02/26/21 extended release cholecalciferol (vitamin D3) 50 50 mcg PO QAM 90 days #90 caps 02/26/21 mcg (2,000 unit) capsule trazodone 50 mg tablet 50 mg PO BEDTIME #90 tabs 02/26/21 gabapentin 300 mg capsule 300 mg PO BEDTIME 90 days #90 caps 06/12/21 levothyroxine 88 mcg tablet 88 mcg PO DAILY 90 days #90 tabs 08/30/21 loratadine 10 mg tablet (Allergy 10 mg PO DAILY 90 days #90 tabs 09/22/21 Relief (loratadine)) clotrimazole-betamethasone 1 1 appl topical BID 5 days #45 grams 12/01/21 %-0.05 % topical cream ferrous sulfate 325 mg (65 mg 325 mg PO DAILY 30 days #30 tabs 01/13/22 iron) tablet,delayed release medroxyprogesterone 10 mg tablet 10 mg PO DAILY 10 days #30 tabs 01/13/22 (Provera) bisacodyl 10 mg rectal suppository 10 mg MT DAILY PRN constipation 01/28/22 (Dulcolax (bisacodyl)) #20 ea hydrocortisone 2.5 % topical cream 1 appl MT BID PRN hemorrhoids #30 01/28/22 with perineal applicator grams (Proctozone-HC) polyethylene glycol 3350 17 17 g PO DAILY #510 grams 01/28/22 gram/dose oral powder (Miralax) fluticasone propionate 50 2 spray intranasal ONCE #16 grams 03/05/22 mcg/actuation nasal spray,suspension ibuprofen 600 mg tablet 600 mg PO Q8H PRN pain #20 tabs 05/08/22 cyclobenzaprine 10 mg tablet 10 mg PO BEDTIME #30 tabs 07/06/22 docusate sodium 100 mg capsule 200 mg PO BEDTIME #60 caps 07/22/22 (Colace) methylcellulose (laxative) 500 mg 500 mg PO BID #60 tabs 07/22/22 tablet (Citrucel) tramadol 50 mg tablet 50 mg PO Q6H PRN pain #30 tabs 08/07/22 omeprazole 20 mg capsule,delayed 20 mg PO BID 30 days #60 caps 08/18/22 release metformin 500 mg tablet 500 mg PO DAILY #90 tabs 09/07/22 Allergies Allergy/AdvReac Type Severity Reaction Status Date / Time metronidazole [From FLAGYL] Allergy Severe CHEST PAIN Verified 12/14/22 12:09 TO LEFT SHOULDER, bacitracin [BACITRACIN] Allergy Intermediate BURNING, Verified 12/14/22 12:09 ITCHING aripiprazole [From Abilify] Allergy Mild ITCHING Verified 12/14/22 12:09 iopromide [From Ultravist] Allergy Mild DIZZY, DRY Verified 12/14/22 12:09 THROAT AND MOUTH risperidone [From Risperdal] Allergy Unknown high level Verified 12/14/22 12:09 prolactin Vistra 650 Allergy Intermediate attention Uncoded 10/15/22 10:40 issues Review of Systems Review of Systems: Yes all other systems are reviewed and are negative PMFSH Past Medical History Medical History Constipation Fibroadenoma of breast Fibromyalgia GERD with esophagitis Hypothyroid IBS (irritable colon syndrome) Mass of left foot Morbid obesity with BMI of 45.0-49.9, adult PCOS (polycystic ovarian syndrome) PTSD (post-traumatic stress disorder) Surgical History History of appendectomy History of section History of D&C History of esophagogastroduodenoscopy (EGD) History of excision of mass (08/07/22) History of hand surgery History of lumpectomy of right breast Hx of appendectomy Family History Family History Father Acral gangrene Mother Cancer Father Diabetes Gangrene Mother Diabetes Hypertension Thyroid disease Cervical cancer Dementia Son In good health Maternal Grandmother Breast cancer Sister Breast cancer Other Mental health disorder Social History Social History Household Members: Children Housing: Apartment Alcohol intake: never Patient Tobacco Use Status: Never used Tobacco Advance Directives: No Advance Directives Information Provided: Yes Current occupational status: disabled Physical Exam ED Vital Signs: Vital Signs - 24 hr 12/14/22 11:55 Pulse Rate 96 Respiratory Rate 20 Blood Pressure 132/69 Pulse Oximetry 97 Oxygen Delivery Method Room Air BMI result Body Mass Index 44.0 Appearance: Alert. Oriented X3. No acute distress. Head: normocephalic, atraumatic. Eyes: Pupils equal, round and reactive to light. ENT: Pharynx normal. No tonsillar swelling or exudate. Normal TMs bilaterally. Neck: Normal inspection. Neck supple. Tender to the submandibular LN on the right side with parotid gland tenderness. CVS: Normal heart rate and rhythm. Pulses normal. Respiratory: No respiratory distress. Breath sounds normal. Skin: Skin warm and dry. Normal skin color. Normal skin turgor. No rashes. Extremities: No lower extremity edema. No joint swelling. Mild tenderness of the right knee and right lateral ankle without any appreciated point tenderness. Difficulty w/ dorsiflexion of the right foot. Neuro/psych: Oriented X 3. No motor deficit. No sensory deficit. CN II-XII intact. Normal speech and cognition. Slow but steady gait Course Course Course Narrative: 42 yo female presents to the ER for evaluation of right sided neck swelling and discomfort with swallowing that has been worsening for the last 3 days. She is able to tolerate PO but the pain radiates to the right ear. Exam c/w parotidi tis. Airway patent. No skin changes. Also c/o right leg weakness and difficulty ambulating since she fell on 11/26. She states she injured her right knee and ankle but never got evaluated. Has had to use a cane since the injury. Plan: XR knee and ankle Medical Decision Making Medical Decision Making [facility] Narrative: 42 y/o female with history of fibrolyalgia, frequent falls, constipation, asthma, hypothyroidism, GERD, morbid obesity, DM II, migraines who presents to the ER for evaluation of 2 separate complaints. She developed right sided neck swelling and discomfort with swallowing 3 days ago and has had RLE pain and weakness since November 26 after a fall. Case d/w Dr. Menendez who examined the patient in triage, clinical presentation and exam c/w parotiditis. patient counseled on dx and tx. RLE pain and weakness for the last few weeks after a fall. XR without acute injury. No focal weakness on examination. Steady gait. PCP is aware of her falls and she is due to see her for this and get into PT. Comfortable d/c home with outpaient follow up. Differential Diagnosis Differential Diagnoses: The differential diagnosis associated with the presentation includes Independent Interpretation I performed an independent interpretation of an: Plain X-Ray Interpretation: x-ray right ankle and right knee with no acute fractures appreciated, agree w/ radiology read Radiology Impression Discussion of test interpretation with radiology: I have reviewed the radiologist's reading. Radiologist Impression: XR/XR knee RT 4V IMPRESSION: Right Knee: No acute osseous abnormality. Minimal medial compartment arthrosis. ? Right Ankle: Prominent circumferential subcutaneous edema without acute osseous abnormality. External Record Review External record reviewed: Outpatient record and Prior outpatient labs Prescription Management I considered prescription management with: Pain Medication Chronic Conditions Patient?s care impacted by: Diabetes, Hypertension and Other (morbid obesity, fibromyalgia) Critical Care Time Critical Care Time Critical Care Time: No Discharge Plan Discharge Clinical Impression: Acute parotitis, Fibromyalgia Patient Disposition: Home, Self-Care Instructions: Fibromyalgia (ED), Sialoadenitis (ED) Additional Instructions: You have a swollen salivary gland. Eat sour candies or suck on a lemon to increase saliva production and this will help the inflammation go down. You can also use warm compresses on the area. Your x-rays today were unremarkable. Recommend following up with your PCP. Always use your cane when walking. Take Motrin and tylenol as needed for pain. If you develop new or worsening symptoms call 911 or come back to the ER for further evaluation. Prescriptions: No Action bupropion HCl 150 mg tablet extended release 24 hr 150 mg PO QAM Qty: 90 2RF cholecalciferol (vitamin D3) 50 mcg (2,000 unit) capsule 50 mcg PO QAM 90 Days Qty: 90 2RF trazodone 50 mg tablet 50 mg PO BEDTIME Qty: 90 2RF gabapentin 300 mg capsule 300 mg PO BEDTIME 90 Days Qty: 90 1RF levothyroxine 88 mcg tablet 88 mcg PO DAILY 90 Days Qty: 90 1RF loratadine [Allergy Relief (loratadine)] 10 mg tablet 10 mg PO DAILY 90 Days Qty: 90 1RF ferrous sulfate 325 mg (65 mg iron) tablet,delayed release (DR/EC) 325 mg PO DAILY 30 Days Qty: 30 1RF fluticasone propionate 50 mcg/actuation spray,suspension 2 spray intranasal ONCE Qty: 16 2RF cyclobenzaprine 10 mg tablet 10 mg PO BEDTIME Qty: 30 1RF docusate sodium [Colace] 100 mg capsule 200 mg PO BEDTIME Qty: 60 5RF Citrucel 500 mg tablet 500 mg PO BID Qty: 60 5RF omeprazole 20 mg capsule,delayed release(DR/EC) 20 mg PO BID 30 Days Qty: 60 5RF metformin 500 mg tablet 500 mg PO DAILY Qty: 90 0RF tramadol 50 mg tablet 50 mg PO Q6H PRN (Reason: pain) Qty: 30 0RF riboflavin (vitamin B2) 100 mg tablet 200 mg PO BID acetaminophen 650 mg tablet extended release 650 mg PO Q8H PRN (Reason: Pain) propranolol 20 mg tablet 20 mg PO QPM albuterol sulfate 90 mcg/actuation HFA aerosol inhaler 2 puff inhalation Q6H 30 Days Qty: 8.5 1RF naproxen 500 mg tablet 500 mg PO Q12H PRN (Reason: pain) Qty: 60 2RF Emgality Pen 120 mg/mL pen injector subcut clotrimazole 1 % cream 1 appl topical BID 28 Days Qty: 28 0RF Rx Instructions: apply to both feet twice daily for 4 weeks chlorthalidone 25 mg tablet 25 mg PO DAILY clotrimazole-betamethasone 1-0.05 % cream 1 appl topical BID 5 Days Qty: 45 0RF Rx Instructions: Apply to the affected area medroxyprogesterone [Provera] 10 mg tablet 10 mg PO DAILY 10 Days Qty: 30 0RF Rx Instructions: start Provera 1 tablet daily from day 15-24 cyclically every months, day 1 being 1st day of menses ibuprofen 600 mg tablet 600 mg PO Q8H PRN (Reason: pain) Qty: 20 0RF atorvastatin 10 mg tablet 10 mg PO BEDTIME hydrocortisone 1 % cream topical DAILY PRN polyethylene glycol 3350 [Miralax] 17 gram/dose powder 17 g PO DAILY Qty: 510 2RF bisacodyl [Dulcolax (bisacodyl)] 10 mg suppository 10 mg MT DAILY PRN (Reason: constipation) Qty: 20 0RF hydrocortisone [Proctozone-HC] 2.5 % cream with perineal applicator 1 appl MT BID PRN (Reason: hemorrhoids) Qty: 30 3RF Rx Instructions: apply MT BID prn Referrals: Sunitha Rosales MD [Primary Care Provider] - Interventions: ED Discharge Assessment Last Done: 12/14/22 14:50 Discharge Date/Time: 12/14/22 14:54
== END 2022-12-14 14:54 | disposition home or self-care (01) ==
PROVIDERS: Emergency Provider Emergency Medicine; PCP Family Medicine
DX: M79.7 Fibromyalgia (principal); K11.21 Acute sialoadenitis; M25.561 Pain in right knee; E11.9 Type 2 diabetes mellitus without complications; I10 Essential (primary) hypertension; R29.6 Repeated falls; E66.01 Morbid (severe) obesity due to excess calories; Z68.41 Body mass index [BMI] 40.0-44.9, adult; Z79.84 Long term (current) use of oral hypoglycemic drugs; Z79.899 Other long term (current) drug therapy
CPT/HCPCS: 73564; 73610; 99283

== ENCOUNTER 2023-01-19 15:09 | Outpatient (REF) | payer OTHER, SELFPAY ==
[2023-01-19 17:09] LABS: Creatinine Urine 66.51 mg/dL; Microalbum/Creatinine Ratio Ur 566.8 ug/mg cr
[2023-01-19 18:12] LABS: Cholesterol 198 mg/dL; HDL Cholesterol 44 mg/dL; LDL Cholesterol Calculated 111 mg/dl; Triglycerides 216 mg/dL
[2023-01-19 18:25] LABS: Reflex LDLD? No
[2023-01-19 18:27] LABS: TSH reflex Free T4 2.66 uIU/mL (0.32-4.0)
[2023-01-19 18:28] LABS: Alanine Aminotransferase 112 U/L (0-31); Alkaline Phosphatase 100 U/L (39-117); Anion Gap 18 (12-20); Aspartate Amino Transferase 95 U/L (5-31); Bilirubin Total 0.5 mg/dL (0.0-1.0); Blood Urea Nitrogen 12 mg/dL (9-16); Calcium 10.4 mg/dL (8.4-10.2); Carbon Dioxide 19 mmol/L (22-29); Chloride 100 mmol/L (96-108); Estimated Glomerular Filt Rate > 60; Glucose Random 408 mg/dL (60-115); Sodium 133 mmol/L (135-145); Total Protein 9.3 g/dL (6.5-8.0)
[2023-01-19 18:42] LABS: Folate 11.5 ng/mL (> or = 4.0); Vitamin B12 1068 pg/mL (200-900)
[2023-01-20 04:34] LABS: ~HepC Num1 0.19 S/CO (0.00-0.79); ~Hepatitis C Antibody Nonreactive (Nonreactive)
[2023-01-20 04:40] LABS: HBS Num1 0.19 mIU/mL (0-7.99); Hepatitis B Core Antibody Nonreactive (Nonreactive); ~Hepatitis B Surface Antibody NONREACTIVE (Nonreactive)
[2023-01-20 15:34] LABS: BV Int Neg Control Negative (Negative); BV Int Pos Control Positive (Positive)
== END 2023-01-19 15:10 | disposition home or self-care (01) ==
LOC: HO.HHCL 15:09
PROVIDERS: Visit Provider Family Medicine
DX: E11.9 Type 2 diabetes mellitus without complications (principal); Z13.89 Encounter for screening for other disorder
CPT/HCPCS: 36415; 80053; 80061; 82043; 82607; 82746; 84443; 86704; 86706; 86803; 87480; 87510; 87660

== ENCOUNTER 2023-01-19 20:34 | Emergency (ER) | payer OTHER, SELFPAY ==
[2023-01-19 21:11] VITALS: BP 131/81; PULSE 102; RESP 20; TEMP 36.8; O2SAT 98; BMI 46.5
--- NOTE | 2023-01-19 21:14 | MHC.EDTECH ---
This tech brought pt in triage area, POC was done and is 482 RN Raquel was made aware. Labs drawn and sent to lab
[2023-01-19 21:18] LABS: MANUAL DIFF FLAG NO
[2023-01-19 21:20] LABS: Basophils Percent Auto 0.5 % (0-2); Eosinophils Absolute Auto 0.1 X10*3/uL (0.0-0.4); Eosinophils Percent Auto 2.1 % (0-4); Hematocrit 37.5 % (37.0-47.0); Hemoglobin 12.8 g/dl (12.0-16.0); Imm Gran Abs Auto 0.02 X10*3/uL (0.00-0.03); Imm Gran Pct Auto 0.3 % (0.0-0.4); Lymphocytes Percent Auto 32.8 % (20-40); Mean Corpuscular HGB Conc 34.1 g/dl (31.0-35.0); Mean Corpuscular Hemoglobin 26.6 pg (27.0-33.0); Mean Corpuscular Volume 77.8 fL (80.0-98.0); Mean Platelet Volume 10.2 fL (9.4-12.3); Monocytes Absolute Auto 0.4 X10*3/uL (0.1-1.2); Monocytes Percent Auto 6.1 % (2-11); Neutrophils Absolute Auto 3.6 x10*3/uL (2.0-8.3); Neutrophils Percent Auto 58.2 % (45-73); Platelet Count 254 X10*3/uL (160-400); Red Blood Count 4.82 X10*6/uL (4.20-5.50); Red Cell Distribution Width 13.2 % (11.0-16.0); White Blood Count 6.1 X10*3/uL (4.8-10.8)
[2023-01-19 21:44] LABS: Alanine Aminotransferase 107 U/L (0-31); Albumin Level 3.7 g/dL (3.5-5.0); Alkaline Phosphatase 99 U/L (39-117); Anion Gap 19 (12-20); Aspartate Amino Transferase 89 U/L (5-31); Bilirubin Total 0.5 mg/dL (0.0-1.0); Blood Urea Nitrogen 14 mg/dL (9-16); Calcium 10.1 mg/dL (8.4-10.2); Carbon Dioxide 17 mmol/L (22-29); Chloride 100 mmol/L (96-108); Creatinine Clr Calc Pharmacy 93.8; Estimated Glomerular Filt Rate > 60; Glucose Random 498 mg/dL (60-115); Potassium 4.2 mmol/L (3.3-5.1); Sodium 132 mmol/L (135-145); Total Protein 8.8 g/dL (6.5-8.0)
--- NOTE | 2023-01-19 22:04 | ED.RECABL ---
HPI - Recheck/Abnormal Lab/Rx General Chief Complaint: Recheck/Abnormal Lab/Rx Stated Complaint: high sugar/ bloodwork for cirrhosis? Time Seen by Provider: 01/19/23 22:02 Source: patient Mode of arrival: ambulatory Limitations: no limitations History of Present Illness HPI narrative: Patient diabetic on metformin 500 mg twice daily been having elevated blood sugar for last 1 month today it was read high had labs done as outpatient which showed very high blood sugar. blood sugar on arrival was 498 no nausea no vomiting no fever no chills no abdominal pain patient drinking Coke 2 cans a day fairly noncompliant to the diet Related Data Home Medications Medication Instructions Recorded Confirmed galcanezumab-gnlm 120 mg/mL mg subcut 05/08/20 07/02/22 subcutaneous pen injector (Emgality Pen) acetaminophen 650 mg 650 mg PO Q8H PRN Pain 05/29/20 08/07/22 tablet,extended release riboflavin (vitamin B2) 100 mg 200 mg PO BID 05/29/20 08/07/22 tablet propranolol 20 mg tablet 20 mg PO QPM 12/05/20 08/07/22 atorvastatin 10 mg tablet 10 mg PO BEDTIME 07/23/21 08/07/22 chlorthalidone 25 mg tablet 25 mg PO DAILY 07/30/21 08/07/22 hydrocortisone 1 % topical cream appl topical DAILY PRN 01/28/22 07/02/22 Previous Rx's Medication Instructions Recorded clotrimazole 1 % topical cream 1 appl topical BID 4 weeks #28 05/22/20 grams albuterol sulfate 90 mcg/actuation 2 puff inhalation Q6H shortness of 12/05/20 aerosol inhaler breath or wheezing 30 days #8.5 grams naproxen 500 mg tablet 500 mg PO Q12H PRN pain #60 tabs 12/05/20 bupropion HCl 150 mg 24 hr tablet, 150 mg PO QAM #90 tabs 02/26/21 extended release cholecalciferol (vitamin D3) 50 50 mcg PO QAM 90 days #90 caps 02/26/21 mcg (2,000 unit) capsule trazodone 50 mg tablet 50 mg PO BEDTIME #90 tabs 02/26/21 gabapentin 300 mg capsule 300 mg PO BEDTIME 90 days #90 caps 06/12/21 levothyroxine 88 mcg tablet 88 mcg PO DAILY 90 days #90 tabs 08/30/21 loratadine 10 mg tablet (Allergy 10 mg PO DAILY 90 days #90 tabs 09/22/21 Relief (loratadine)) clotrimazole-betamethasone 1 1 appl topical BID 5 days #45 grams 12/01/21 %-0.05 % topical cream ferrous sulfate 325 mg (65 mg 325 mg PO DAILY 30 days #30 tabs 01/13/22 iron) tablet,delayed release medroxyprogesterone 10 mg tablet 10 mg PO DAILY 10 days #30 tabs 01/13/22 (Provera) bisacodyl 10 mg rectal suppository 10 mg CO DAILY PRN constipation 01/28/22 (Dulcolax (bisacodyl)) #20 ea hydrocortisone 2.5 % topical cream 1 appl CO BID PRN hemorrhoids #30 01/28/22 with perineal applicator grams (Proctozone-HC) polyethylene glycol 3350 17 17 g PO DAILY #510 grams 01/28/22 gram/dose oral powder (Miralax) fluticasone propionate 50 2 spray intranasal ONCE #16 grams 03/05/22 mcg/actuation nasal spray,suspension ibuprofen 600 mg tablet 600 mg PO Q8H PRN pain #20 tabs 05/08/22 cyclobenzaprine 10 mg tablet 10 mg PO BEDTIME #30 tabs 07/06/22 tramadol 50 mg tablet 50 mg PO Q6H PRN pain #30 tabs 08/07/22 omeprazole 20 mg capsule,delayed 20 mg PO BID 30 days #60 caps 08/18/22 release metformin 500 mg tablet 500 mg PO DAILY #90 tabs 09/07/22 docusate sodium 100 mg capsule 200 mg PO BEDTIME #60 caps 01/05/23 (Colace) methylcellulose (laxative) 500 mg 500 mg PO BID #60 tabs 01/05/23 tablet (Citrucel) insulin glargine 100 unit/mL (3 20 unit (0.2 mL) subcut QPM #15 mL 01/20/23 mL) subcutaneous pen (Lantus Solostar U-100 Insulin) insulin lispro 200 unit/mL (3 mL) 1 sliding scale dose subcut 01/20/23 subcutaneous pen (Humalog KwikPen USEASDIRECTD #6 mL U-200 Insulin) Allergies Allergy/AdvReac Type Severity Reaction Status Date / Time metronidazole [From FLAGYL] Allergy Severe CHEST PAIN Verified 12/14/22 12:09 TO LEFT SHOULDER, bacitracin [BACITRACIN] Allergy Intermediate BURNING, Verified 12/14/22 12:09 ITCHING aripiprazole [From Abilify] Allergy Mild ITCHING Verified 12/14/22 12:09 iopromide [From Ultravist] Allergy Mild DIZZY, DRY Verified 12/14/22 12:09 THROAT AND MOUTH risperidone [From Risperdal] Allergy Unknown high level Verified 12/14/22 12:09 prolactin Vistra 650 Allergy Intermediate attention Uncoded 10/15/22 10:40 issues Review of Systems Review of Systems: Yes all other systems are reviewed and are negative PMFSH Past Medical History Medical History Constipation DMII (diabetes mellitus, type 2) Fibroadenoma of breast Fibromyalgia GERD with esophagitis Hypothyroid IBS (irritable colon syndrome) Mass of left foot Morbid obesity with BMI of 45.0-49.9, adult PCOS (polycystic ovarian syndrome) PTSD (post-traumatic stress disorder) Surgical History History of appendectomy History of section History of D&C History of esophagogastroduodenoscopy (EGD) History of excision of mass (08/07/22) History of hand surgery History of lumpectomy of right breast Hx of appendectomy Family History Family History Father Acral gangrene Mother Cancer Father Diabetes Gangrene Mother Diabetes Hypertension Thyroid disease Cervical cancer Dementia Son In good health Maternal Grandmother Breast cancer Sister Breast cancer Other Mental health disorder Social History Social History Household Members: Children Housing: Apartment Alcohol intake: never Patient Tobacco Use Status: Never used Tobacco Advance Directives: No Advance Directives Information Provided: No Current occupational status: disabled Physical Exam Vital Signs: Vital Signs: Last Vital Signs Temp 97.9 F 01/20/23 00:34 Pulse 81 01/20/23 00:34 Resp 15 01/20/23 00:34 BP 124/72 08/02/23 00:34 Pulse Ox 96 01/20/23 00:34 O2 Del Method Room Air 01/20/23 00:34 BMI result Body Mass Index 46.5 Appearance: Alert. Oriented X3. No acute distress. Obese Eyes: No pallor or icterus ENT: Pharynx normal. Oral Mucosa moist Neck: Normal inspection. Neck supple. CVS: Normal heart rate and rhythm. Pulses normal. Respiratory: No respiratory distress. Equal air entry bilateral, no wheezing/rales/rhonchi Abdomen: Soft and nontender. Bowel sounds are present, no mass palpable, no CVA tenderness Skin: Skin warm and dry. Normal skin color. Normal skin turgor. Extremities: No lower extremity edema. No calf tenderness Neuro: Oriented X 3. No motor deficit. Medications Administered Discontinued Medications Generic Name Dose Route Start Last Admin Trade Name Freq PRN Reason Stop Dose Admin Sodium Chloride 1,000 mls @ 999 mls/hr 01/19/23 22:20 01/19/23 23:59 Ns IV 01/19/23 23:20 Infused .Q1H1M ONE Infusion Insulin Glargine 20 unit 01/19/23 22:20 01/19/23 22:43 Insulin Glargine,Hum.Rec.Anlog 100 Unit/Ml 10 Ml Vial SUBCUT 01/19/23 22:21 20 unit ONCE STA Administration Insulin Human Lispro 14 unit 01/19/23 22:20 01/19/23 22:43 Insulin Lispro 100 Unit/Ml 3 Ml Vial SUBCUT 01/19/23 22:21 14 unit ONCE STA Administration Insulin Human Lispro 10 unit 01/20/23 00:10 01/20/23 00:44 Insulin Lispro 100 Unit/Ml 3 Ml Vial SUBCUT 01/20/23 00:11 10 unit ONCE ONE Administration Medical Decision Making Medical Decision Making MDM Narrative: Patient with longstanding diabetes on oral hypoglycemic comes in with hyperglycemia nonketotic will discharge patient home on insulin advised to take Lantus and Humalog as prescribed and follow-up with PCP Lab Data MDM Lab Attestation statement: I reviewed the patient's lab results. 01/19/23 21:12 01/19/23 21:12 Labs: Lab Results 01/19/23 01/19/23 01/20/23 Range/Units 21:12 21:12 01:03 WBC 6.1 (4.8-10.8) X10*3/uL RBC 4.82 (4.20-5.50) X10*6/uL Hgb 12.8 (12.0-16.0) g/dl Hct 37.5 (37.0-47.0) % MCV 77.8 L (80.0-98.0) fL MCH 26.6 L (27.0-33.0) pg MCHC 34.1 (31.0-35.0) g/dl RDW 13.2 (11.0-16.0) % Plt Count 254 (160-400) X10*3/uL MPV 10.2 (9.4-12.3) fL Immature Gran % (Auto) 0.3 (0.0-0.4) % Neut % (Auto) 58.2 (45-73) % Lymph % (Auto) 32.8 (20-40) % [place] % (Auto) 6.1 (2-11) % Eos % (Auto) 2.1 (0-4) % Baso % (Auto) 0.5 (0-2) % Lymph # (Auto) 2.0 (1.2-4.9) X10*3/uL [place] # (Auto) 0.4 (0.1-1.2) X10*3/uL Eos # (Auto) 0.1 (0.0-0.4) X10*3/uL Baso # (Auto) 0.0 (0.0-0.2) X10*3/uL Abs Immat Gran (auto) 0.02 (0.00-0.03) X10*3/uL Absolute Neuts (auto) 3.6 (2.0-8.3) x10*3/uL Absolute Nucleated RBC 0.000 (0.0-0.012) X10*3/uL Nucleated RBC % (auto) 0.0 (0.0-0.2) /100WBC Sodium 132 L (135-145) mmol/L Potassium 4.2 (3.3-5.1) mmol/L Chloride 100 (96-108) mmol/L Carbon Dioxide 17 L (22-29) mmol/L Anion Gap 19 (12-20) BUN 14 (9-16) mg/dL Creatinine 0.99 (0.5-1.4) mg/dL Estim Creat Clear Calc 93.8 Estimated GFR > 60 POC Glucose 231 H (60-115) mg/dL Random Glucose 498 H* (60-115) mg/dL Calcium 10.1 (8.4-10.2) mg/dL Total Bilirubin 0.5 (0.0-1.0) mg/dL AST 89 H (5-31) U/L ALT 107 H (0-31) U/L Alkaline Phosphatase 99 (39-117) U/L Total Protein 8.8 H (6.5-8.0) g/dL Albumin 3.7 (3.5-5.0) g/dL Discharge Plan Discharge Clinical Impression: Hyperglycemia due to diabetes mellitus Patient Disposition: Home, Self-Care Instructions: Diabetic Hyperglycemia (ED) Additional Instructions: Drink plenty of fluids Stop drinking sweet drinks Start on insulin 20 units of Lantus insulin every night and Humalog 3 times a day before meals according to sliding scale as prescribed Continue metformin 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 Prescriptions: New insulin glargine [Lantus Solostar U-100 Insulin] 100 unit/mL (3 mL) insulin pen 20 unit subcut QPM Qty: 15 3RF Humalog KwikPen Insulin 200 unit/mL (3 mL) insulin pen 1 sliding scale dose subcut USEASDIRECTD Qty: 6 3RF Rx Instructions: Insulin subQ 3 times a day before meals as follows: 0-150: 0 unit 151-200: 2 UNITS 201-250: 4 UNITS 251-300: 6 UNITS 301-350: 8 UNITS >350 : 10 UNIT AND CALL No Action bupropion HCl 150 mg tablet extended release 24 hr 150 mg PO QAM Qty: 90 2RF cholecalciferol (vitamin D3) 50 mcg (2,000 unit) capsule 50 mcg PO QAM 90 Days Qty: 90 2RF trazodone 50 mg tablet 50 mg PO BEDTIME Qty: 90 2RF gabapentin 300 mg capsule 300 mg PO BEDTIME 90 Days Qty: 90 1RF levothyroxine 88 mcg tablet 88 mcg PO DAILY 90 Days Qty: 90 1RF loratadine [Allergy Relief (loratadine)] 10 mg tablet 10 mg PO DAILY 90 Days Qty: 90 1RF ferrous sulfate 325 mg (65 mg iron) tablet,delayed release (DR/EC) 325 mg PO DAILY 30 Days Qty: 30 1RF fluticasone propionate 50 mcg/actuation spray,suspension 2 spray intranasal ONCE Qty: 16 2RF cyclobenzaprine 10 mg tablet 10 mg PO BEDTIME Qty: 30 1RF omeprazole 20 mg capsule,delayed release(DR/EC) 20 mg PO BID 30 Days Qty: 60 5RF metformin 500 mg tablet 500 mg PO DAILY Qty: 90 0RF Citrucel 500 mg tablet 500 mg PO BID Qty: 60 5RF docusate sodium [Colace] 100 mg capsule 200 mg PO BEDTIME Qty: 60 5RF tramadol 50 mg tablet 50 mg PO Q6H PRN (Reason: pain) Qty: 30 0RF riboflavin (vitamin B2) 100 mg tablet 200 mg PO BID acetaminophen 650 mg tablet extended release 650 mg PO Q8H PRN (Reason: Pain) propranolol 20 mg tablet 20 mg PO QPM albuterol sulfate 90 mcg/actuation HFA aerosol inhaler 2 puff inhalation Q6H 30 Days Qty: 8.5 1RF naproxen 500 mg tablet 500 mg PO Q12H PRN (Reason: pain) Qty: 60 2RF Emgality Pen 120 mg/mL pen injector subcut clotrimazole 1 % cream 1 appl topical BID 28 Days Qty: 28 0RF Rx Instructions: apply to both feet twice daily for 4 weeks chlorthalidone 25 mg tablet 25 mg PO DAILY clotrimazole-betamethasone 1-0.05 % cream 1 appl topical BID 5 Days Qty: 45 0RF Rx Instructions: Apply to the affected area medroxyprogesterone [Provera] 10 mg tablet 10 mg PO DAILY 10 Days Qty: 30 0RF Rx Instructions: start Provera 1 tablet daily from day 15-24 cyclically every months, day 1 being 1st day of menses ibuprofen 600 mg tablet 600 mg PO Q8H PRN (Reason: pain) Qty: 20 0RF atorvastatin 10 mg tablet 10 mg PO BEDTIME hydrocortisone 1 % cream topical DAILY PRN polyethylene glycol 3350 [Miralax] 17 gram/dose powder 17 g PO DAILY Qty: 510 2RF bisacodyl [Dulcolax (bisacodyl)] 10 mg suppository 10 mg CO DAILY PRN (Reason: constipation) Qty: 20 0RF hydrocortisone [Proctozone-HC] 2.5 % cream with perineal applicator 1 appl CO BID PRN (Reason: hemorrhoids) Qty: 30 3RF Rx Instructions: apply CO BID prn Referrals: Severo Carney MD [Physician] - 2 weeks Interventions: ED Discharge Assessment Last Done: 01/20/23 01:14 Discharge Date/Time: 01/20/23 01:17
[2023-01-19] MEDS: 0.9 % Sodium Chloride 1,000 ML 999 ML IV (22:43)
[2023-01-19] MEDS: Insulin Glargine,Hum.rec.anlog 100 UNIT/ML 10 ML VIAL 20 UNIT SUBCUT (22:43)
[2023-01-19] MEDS: Insulin Lispro 100 UNIT/ML 3 ML VIAL 14 UNIT SUBCUT (22:43)
[2023-01-20 00:34] VITALS: BP 124/72; PULSE 81; RESP 15; TEMP 36.6; O2SAT 96
[2023-01-20] MEDS: Insulin Lispro 100 UNIT/ML 3 ML VIAL 10 UNIT SUBCUT (00:44)
[2023-01-20 01:08] LABS: Glucose, Whole Blood 231 mg/dL (60-115)
[2023-01-20 05:48] LABS: Glucose, Whole Blood 361 mg/dL (60-115)
[2023-01-20 07:19] LABS: Glucose, Whole Blood 482 mg/dL (60-115)
== END 2023-01-20 01:17 | disposition home or self-care (01) ==
PROVIDERS: Emergency Provider Internal Medicine; PCP Family Medicine
DX: E11.65 Type 2 diabetes mellitus with hyperglycemia (principal); E66.01 Morbid (severe) obesity due to excess calories; Z68.42 Body mass index [BMI] 45.0-49.9, adult; Z79.84 Long term (current) use of oral hypoglycemic drugs; Z79.899 Other long term (current) drug therapy
CPT/HCPCS: 36415; 80053; 82947; 85025; 96360; 99283; 99284

== ENCOUNTER 2023-01-22 17:06 | Emergency (ER) | payer OTHER, SELFPAY ==
[2023-01-22 17:09] VITALS: BP 169/75; PULSE 100; RESP 18; TEMP 36.7; O2SAT 98; BMI 46.3
--- NOTE | 2023-01-22 17:10 | ED_ITS ---
HPI - General Adult General Chief complaint: General Medical Stated complaint: high sugar Time Seen by Provider: 01/22/23 21:45 Source: patient and old records reviewed Mode of arrival: ambulatory Limitations: no limitations History of Present Illness HPI narrative: 42 yo female with hx of IDDM on lantus 20 units daily and metfromin though admits she has not taken her metformin today - she also notes that she is going to start a sliding scale as well. She took her lantus at noon but then was being given ricola regular cough drops throughout the day. she ate a regular dinner of brussel sprouts, salmon, butternut squash soup and then freaked out about her sugar being in 300/400s due to the recent ER visit telling her untreated blood sugars can lead to kidney disease MD complaint: elevated blood sugars Onset (ago): day(s) (1) Severity: mild Relieving factors: none Exacerbating factors: eating Associated symptoms: denies other symptoms Treatments prior to arrival: none Related Data Home Medications Medication Instructions Recorded Confirmed galcanezumab-gnlm 120 mg/mL mg subcut 05/08/20 07/02/22 subcutaneous pen injector (Emgality Pen) acetaminophen 650 mg 650 mg PO Q8H PRN Pain 05/29/20 08/07/22 tablet,extended release riboflavin (vitamin B2) 100 mg 200 mg PO BID 05/29/20 08/07/22 tablet propranolol 20 mg tablet 20 mg PO QPM 12/05/20 08/07/22 atorvastatin 10 mg tablet 10 mg PO BEDTIME 07/23/21 08/07/22 chlorthalidone 25 mg tablet 25 mg PO DAILY 07/30/21 08/07/22 hydrocortisone 1 % topical cream appl topical DAILY PRN 01/28/22 07/02/22 Previous Rx's Medication Instructions Recorded clotrimazole 1 % topical cream 1 appl topical BID 4 weeks #28 05/22/20 grams albuterol sulfate 90 mcg/actuation 2 puff inhalation Q6H shortness of 12/05/20 aerosol inhaler breath or wheezing 30 days #8.5 grams naproxen 500 mg tablet 500 mg PO Q12H PRN pain #60 tabs 12/05/20 bupropion HCl 150 mg 24 hr tablet, 150 mg PO QAM #90 tabs 02/26/21 extended release cholecalciferol (vitamin D3) 50 50 mcg PO QAM 90 days #90 caps 02/26/21 mcg (2,000 unit) capsule trazodone 50 mg tablet 50 mg PO BEDTIME #90 tabs 02/26/21 gabapentin 300 mg capsule 300 mg PO BEDTIME 90 days #90 caps 06/12/21 levothyroxine 88 mcg tablet 88 mcg PO DAILY 90 days #90 tabs 08/30/21 loratadine 10 mg tablet (Allergy 10 mg PO DAILY 90 days #90 tabs 09/22/21 Relief (loratadine)) clotrimazole-betamethasone 1 1 appl topical BID 5 days #45 grams 12/01/21 %-0.05 % topical cream ferrous sulfate 325 mg (65 mg 325 mg PO DAILY 30 days #30 tabs 01/13/22 iron) tablet,delayed release medroxyprogesterone 10 mg tablet 10 mg PO DAILY 10 days #30 tabs 01/13/22 (Provera) bisacodyl 10 mg rectal suppository 10 mg OH DAILY PRN constipation 01/28/22 (Dulcolax (bisacodyl)) #20 ea hydrocortisone 2.5 % topical cream 1 appl OH BID PRN hemorrhoids #30 01/28/22 with perineal applicator grams (Proctozone-HC) polyethylene glycol 3350 17 17 g PO DAILY #510 grams 01/28/22 gram/dose oral powder (Miralax) fluticasone propionate 50 2 spray intranasal ONCE #16 grams 03/05/22 mcg/actuation nasal spray,suspension ibuprofen 600 mg tablet 600 mg PO Q8H PRN pain #20 tabs 05/08/22 cyclobenzaprine 10 mg tablet 10 mg PO BEDTIME #30 tabs 07/06/22 tramadol 50 mg tablet 50 mg PO Q6H PRN pain #30 tabs 08/07/22 omeprazole 20 mg capsule,delayed 20 mg PO BID 30 days #60 caps 08/18/22 release metformin 500 mg tablet 500 mg PO DAILY #90 tabs 09/07/22 docusate sodium 100 mg capsule 200 mg PO BEDTIME #60 caps 01/05/23 (Colace) methylcellulose (laxative) 500 mg 500 mg PO BID #60 tabs 01/05/23 tablet (Citrucel) insulin glargine 100 unit/mL (3 20 unit (0.2 mL) subcut QPM #15 mL 01/20/23 mL) subcutaneous pen (Lantus Solostar U-100 Insulin) insulin lispro 200 unit/mL (3 mL) 1 sliding scale dose subcut 01/20/23 subcutaneous pen (Humalog KwikPen USEASDIRECTD #6 mL U-200 Insulin) Allergies Allergy/AdvReac Type Severity Reaction Status Date / Time metronidazole [From FLAGYL] Allergy Severe CHEST PAIN Verified 12/14/22 12:09 TO LEFT SHOULDER, bacitracin [BACITRACIN] Allergy Intermediate BURNING, Verified 12/14/22 12:09 ITCHING aripiprazole [From Abilify] Allergy Mild ITCHING Verified 12/14/22 12:09 iopromide [From Ultravist] Allergy Mild DIZZY, DRY Verified 12/14/22 12:09 THROAT AND MOUTH risperidone [From Risperdal] Allergy Unknown high level Verified 12/14/22 12:09 prolactin Vistra 650 Allergy Intermediate attention Uncoded 10/15/22 10:40 issues Review of Systems Review of Systems: Constitutional : No Weight loss, No Fever, No Chills, ENT/Mouth : No Hearing loss, No Ear Pain, No Nasal Congestion, No Sinus Pain, No Hoarseness, No sore throat, No Rhinorrhea, No Swallowing Difficulty Cardiovascular : No Chest Pain, No SOB Respiratory : No Cough, No Dyspnea Gastrointestinal : No Nausea, No Vomiting, No Diarrhea, No abdominal Pain, No Hematochezia, No Melena Genitourinary : No Dysuria, No Urinary Frequency, No Hematuria, No Urinary Incontinence, Musculoskeletal : no back pain Skin : No Skin Lesions, No rash Neuro : No Weakness, No Numbness, No Paresthesias, no loss of bowel or bladder incontinence, no saddle anesthesia All other systems reviewed and are negative PMFSH Past Medical History Attestation statement: The following information was validated with the patient. Medical History Constipation DMII (diabetes mellitus, type 2) Fibroadenoma of breast Fibromyalgia GERD with esophagitis Hypothyroid IBS (irritable colon syndrome) Mass of left foot Morbid obesity with BMI of 45.0-49.9, adult PCOS (polycystic ovarian syndrome) PTSD (post-traumatic stress disorder) Surgical History History of appendectomy History of section History of D&C History of esophagogastroduodenoscopy (EGD) History of excision of mass (08/07/22) History of hand surgery History of lumpectomy of right breast Hx of appendectomy Family History Family History Father Acral gangrene Mother Cancer Father Diabetes Gangrene Mother Diabetes Hypertension Thyroid disease Cervical cancer Dementia Son In good health Maternal Grandmother Breast cancer Sister Breast cancer Other Mental health disorder Social History Social History Household Members: Children Housing: Apartment Alcohol intake: never Patient Tobacco Use Status: Never used Tobacco Advance Directives: No Advance Directives Information Provided: No Current occupational status: disabled Physical Exam ED Vital Signs: Vital Signs - 24 hr 01/22/23 17:09 Temperature 98.1 F Pulse Rate 100 Respiratory Rate 18 Blood Pressure 169/75 H Pulse Oximetry 98 Oxygen Delivery Method Room Air BMI result Body Mass Index 46.3 Appearance: Alert. Oriented X3. No acute distress. Eyes: Pupils equal, round and reactive to light. ENT: Pharynx normal. Neck: Normal inspection. Neck supple. CVS: Normal heart rate and rhythm. Pulses normal. Respiratory: No respiratory distress. Breath sounds normal. Abdomen: Soft and nontender. Skin: Skin warm and dry. Normal skin color. Normal skin turgor. Extremities: No lower extremity edema. No calf ttp Neuro: Oriented X 3. No motor deficit. No sensory deficit. Course Course Course Narrative: This is a rapid medical exam: Additional HPI, ROS, PE not included below will be deferred to primary provider. Patient is a 42-year-old female with history of T2DM, GERD, hypothyroidism presenting to the emergency department with complaint of elevated blood sugar. Was recently started on lantus but is unsure if she injected correctly. Reports abdominal pain and nausea this morning. Plan: POC glucose, labs, UA Medications Administered Discontinued Medications Generic Name Dose Route Start Last Admin Trade Name Freq PRN Reason Stop Dose Admin Insulin Human Lispro 5 unit 01/22/23 22:30 01/22/23 22:34 Insulin Lispro 100 Unit/Ml 3 Ml Vial SUBCUT 01/22/23 22:31 5 unit ONCE ONE Administration Medical Decision Making Medical Decision Making MDM Narrative: 42 yo female here with elevated blood sugars without reports of infection or chest pain - she is not toxic she was eating sugary ricola all day - at this time no signs of DKA on exam will give short acting and DC home with precautions she is going to resume her metformin tomorrow as well. she has good outpatient follow up. Differential Diagnosis Differential Diagnoses: The differential diagnosis associated with the presentation includes medication non-compliance, poor diet, insulin resistance Admission/Observation Consideration of admission/observation: Escalation of care including admission/observation considered no DKA has resources at home can be managed as outpatient Lab Data [facility] Lab Attestation statement: I reviewed the patient's lab results. 01/22/23 17:48 01/22/23 17:48 Labs: Lab Results 01/22/23 01/22/23 01/22/23 Range/Units 17:48 17:48 17:48 WBC 5.7 (4.8-10.8) X10*3/uL RBC 4.75 (4.20-5.50) X10*6/uL Hgb 12.8 (12.0-16.0) g/dl Hct 37.3 (37.0-47.0) % MCV 78.5 L (80.0-98.0) fL MCH 26.9 L (27.0-33.0) pg MCHC 34.3 (31.0-35.0) g/dl RDW 13.2 (11.0-16.0) % Plt Count 160 D (160-400) X10*3/uL MPV 11.3 (9.4-12.3) fL Immature Gran % (Auto) 0.4 (0.0-0.4) % Neut % (Auto) 59.0 (45-73) % Lymph % (Auto) 32.7 (20-40) % Wilkinson % (Auto) 5.8 (2-11) % Eos % (Auto) 1.4 (0-4) % Baso % (Auto) 0.7 (0-2) % Lymph # (Auto) 1.9 (1.2-4.9) X10*3/uL Wilkinson # (Auto) 0.3 (0.1-1.2) X10*3/uL Eos # (Auto) 0.1 (0.0-0.4) X10*3/uL Baso # (Auto) 0.0 (0.0-0.2) X10*3/uL Abs Immat Gran (auto) 0.02 (0.00-0.03) X10*3/uL Absolute Neuts (auto) 3.4 (2.0-8.3) x10*3/uL Absolute Nucleated RBC 0.000 (0.0-0.012) X10*3/uL Nucleated RBC % (auto) 0.0 (0.0-0.2) /100WBC Sodium 130 L (135-145) mmol/L Potassium 4.2 (3.3-5.1) mmol/L Chloride 97 (96-108) mmol/L Carbon Dioxide 20 L (22-29) mmol/L Anion Gap 17 (12-20) BUN 14 (9-16) mg/dL Creatinine 0.84 (0.5-1.4) mg/dL Estim Creat Clear Calc 110.3 Estimated GFR > 60 POC Glucose (60-115) mg/dL Random Glucose 414 H* (60-115) mg/dL Calcium 10.0 (8.4-10.2) mg/dL Magnesium 1.6 (1.6-2.6) mg/dL Total Bilirubin 0.6 (0.0-1.0) mg/dL AST 87 H (5-31) U/L ALT 112 H (0-31) U/L Alkaline Phosphatase 88 (39-117) U/L Troponin I High Sens < 2.7 (<3.5-17.0) ng/L Total Protein 8.7 H (6.5-8.0) g/dL Albumin 3.8 (3.5-5.0) g/dL Lipase 21 (8-78) U/L Beta-Hydroxybutyrate 0.12 (0.02-0.27) mmol/L TSH 2.24 (0.32-4.0) uIU/mL Beta HCG, Quant mIU/mL 01/22/23 01/22/23 01/22/23 Range/Units 17:48 20:27 22:25 WBC (4.8-10.8) X10*3/uL RBC (4.20-5.50) X10*6/uL Hgb (12.0-16.0) g/dl Hct (37.0-47.0) % MCV (80.0-98.0) fL MCH (27.0-33.0) pg MCHC (31.0-35.0) g/dl RDW (11.0-16.0) % Plt Count (160-400) X10*3/uL MPV (9.4-12.3) fL Immature Gran % (Auto) (0.0-0.4) % Neut % (Auto) (45-73) % Lymph % (Auto) (20-40) % Wilkinson % (Auto) (2-11) % Eos % (Auto) (0-4) % Baso % (Auto) (0-2) % Lymph # (Auto) (1.2-4.9) X10*3/uL Wilkinson # (Auto) (0.1-1.2) X10*3/uL Eos # (Auto) (0.0-0.4) X10*3/uL Baso # (Auto) (0.0-0.2) X10*3/uL Abs Immat Gran (auto) (0.00-0.03) X10*3/uL Absolute Neuts (auto) (2.0-8.3) x10*3/uL Absolute Nucleated RBC (0.0-0.012) X10*3/uL Nucleated RBC % (auto) (0.0-0.2) /100WBC Sodium (135-145) mmol/L Potassium (3.3-5.1) mmol/L Chloride (96-108) mmol/L Carbon Dioxide (22-29) mmol/L Anion Gap (12-20) BUN (9-16) mg/dL Creatinine (0.5-1.4) mg/dL Estim Creat Clear Calc Estimated GFR POC Glucose 413 H* 371 H* (60-115) mg/dL Random Glucose (60-115) mg/dL Calcium (8.4-10.2) mg/dL Magnesium (1.6-2.6) mg/dL Total Bilirubin (0.0-1.0) mg/dL AST (5-31) U/L ALT (0-31) U/L Alkaline Phosphatase (39-117) U/L Troponin I High Sens (<3.5-17.0) ng/L Total Protein (6.5-8.0) g/dL Albumin (3.5-5.0) g/dL Lipase (8-78) U/L Beta-Hydroxybutyrate (0.02-0.27) mmol/L TSH (0.32-4.0) uIU/mL Beta HCG, Quant < 2 mIU/mL Independent Interpretation I performed an independent interpretation of an: EKG Interpretation: Rate: 91 Rhythm: NSR Lyons: normal Normal P waves. Normal EMMIE. Normal QRS complex. ST T wave : normal no BRIAN qTC: normal prior studies: no acute ischemia The study has been interpreted contemporaneously by me. . External Record Review External record reviewed: Inpatient record and Prior outpatient labs Prescription Management I considered prescription management with: Other Chronic Conditions Patient?s care impacted by: Diabetes Discharge Plan Discharge Clinical Impression: Acute hyperglycemia Patient Disposition: Home, Self-Care Instructions: Diabetic Hyperglycemia (ED) Additional Instructions: return for worsening symptoms, confusion, vomiting, abdominal pain, fevers, chest pain or trouble breathing take your lantus and metformin tomorrow as planned talk to your doctor next week about your blood sugars Prescriptions: No Action bupropion HCl 150 mg tablet extended release 24 hr 150 mg PO QAM Qty: 90 2RF cholecalciferol (vitamin D3) 50 mcg (2,000 unit) capsule 50 mcg PO QAM 90 Days Qty: 90 2RF trazodone 50 mg tablet 50 mg PO BEDTIME Qty: 90 2RF gabapentin 300 mg capsule 300 mg PO BEDTIME 90 Days Qty: 90 1RF levothyroxine 88 mcg tablet 88 mcg PO DAILY 90 Days Qty: 90 1RF loratadine [Allergy Relief (loratadine)] 10 mg tablet 10 mg PO DAILY 90 Days Qty: 90 1RF ferrous sulfate 325 mg (65 mg iron) tablet,delayed release (DR/EC) 325 mg PO DAILY 30 Days Qty: 30 1RF fluticasone propionate 50 mcg/actuation spray,suspension 2 spray intranasal ONCE Qty: 16 2RF cyclobenzaprine 10 mg tablet 10 mg PO BEDTIME Qty: 30 1RF omeprazole 20 mg capsule,delayed release(DR/EC) 20 mg PO BID 30 Days Qty: 60 5RF metformin 500 mg tablet 500 mg PO DAILY Qty: 90 0RF Citrucel 500 mg tablet 500 mg PO BID Qty: 60 5RF docusate sodium [Colace] 100 mg capsule 200 mg PO BEDTIME Qty: 60 5RF tramadol 50 mg tablet 50 mg PO Q6H PRN (Reason: pain) Qty: 30 0RF insulin glargine [Lantus Solostar U-100 Insulin] 100 unit/mL (3 mL) insulin pen 20 unit subcut QPM Qty: 15 3RF Humalog KwikPen Insulin 200 unit/mL (3 mL) insulin pen 1 sliding scale dose subcut USEASDIRECTD Qty: 6 3RF Rx Instructions: Insulin subQ 3 times a day before meals as follows: 0-150: 0 unit 151-200: 2 UNITS 201-250: 4 UNITS 251-300: 6 UNITS 301-350: 8 UNITS >350 : 10 UNIT AND CALL riboflavin (vitamin B2) 100 mg tablet 200 mg PO BID acetaminophen 650 mg tablet extended release 650 mg PO Q8H PRN (Reason: Pain) propranolol 20 mg tablet 20 mg PO QPM albuterol sulfate 90 mcg/actuation HFA aerosol inhaler 2 puff inhalation Q6H 30 Days Qty: 8.5 1RF naproxen 500 mg tablet 500 mg PO Q12H PRN (Reason: pain) Qty: 60 2RF Emgality Pen 120 mg/mL pen injector subcut clotrimazole 1 % cream 1 appl topical BID 28 Days Qty: 28 0RF Rx Instructions: apply to both feet twice daily for 4 weeks chlorthalidone 25 mg tablet 25 mg PO DAILY clotrimazole-betamethasone 1-0.05 % cream 1 appl topical BID 5 Days Qty: 45 0RF Rx Instructions: Apply to the affected area medroxyprogesterone [Provera] 10 mg tablet 10 mg PO DAILY 10 Days Qty: 30 0RF Rx Instructions: start Provera 1 tablet daily from day 15-24 cyclically every months, day 1 being 1st day of menses ibuprofen 600 mg tablet 600 mg PO Q8H PRN (Reason: pain) Qty: 20 0RF atorvastatin 10 mg tablet 10 mg PO BEDTIME hydrocortisone 1 % cream topical DAILY PRN polyethylene glycol 3350 [Miralax] 17 gram/dose powder 17 g PO DAILY Qty: 510 2RF bisacodyl [Dulcolax (bisacodyl)] 10 mg suppository 10 mg OH DAILY PRN (Reason: constipation) Qty: 20 0RF hydrocortisone [Proctozone-HC] 2.5 % cream with perineal applicator 1 appl OH BID PRN (Reason: hemorrhoids) Qty: 30 3RF Rx Instructions: apply OH BID prn Interventions: ED Discharge Assessment Last Done: 01/22/23 22:52 Discharge Date/Time: 01/22/23 22:53
--- NOTE | 2023-01-22 17:13 | ECG_ITS ---
Test Reason : CHEST PRESSURE Blood Pressure : / mmHG Vent. Rate : 091 BPM Atrial Rate : 091 BPM P-R Int : 132 ms QRS Dur : 090 ms QT Int : 348 ms P-R-T Axes : 059 053 055 degrees QTc Int : 428 ms Normal sinus rhythm Normal ECG When compared with ECG of 09-APR-2021 10:22, No significant change was found Referred By: Kateryna Gonzalez Electronically Signed By:LILY WILLS
[2023-01-22 18:03] LABS: MANUAL DIFF FLAG NO
[2023-01-22 18:33] LABS: Anion Gap 17 (12-20)
[2023-01-22 18:37] LABS: Alanine Aminotransferase 112 U/L (0-31); Albumin Level 3.8 g/dL (3.5-5.0); Alkaline Phosphatase 88 U/L (39-117); Aspartate Amino Transferase 87 U/L (5-31); Bilirubin Total 0.6 mg/dL (0.0-1.0); Blood Urea Nitrogen 14 mg/dL (9-16); Carbon Dioxide 20 mmol/L (22-29); Chloride 97 mmol/L (96-108); Creatinine Clr Calc Pharmacy 110.3; Estimated Glomerular Filt Rate > 60; Glucose Random 414 mg/dL (60-115); Lipase 21 U/L (8-78); Magnesium 1.6 mg/dL (1.6-2.6); Potassium 4.2 mmol/L (3.3-5.1); Sodium 130 mmol/L (135-145); Total Protein 8.7 g/dL (6.5-8.0)
[2023-01-22 18:41] LABS: HCG Quantitative < 2 mIU/mL
[2023-01-22 18:44] LABS: Troponin-I High Sensitivity < 2.7 ng/L (<3.5-17.0)
[2023-01-22 18:47] LABS: Basophils Percent Auto 0.7 % (0-2); Eosinophils Absolute Auto 0.1 X10*3/uL (0.0-0.4); Eosinophils Percent Auto 1.4 % (0-4); Hematocrit 37.3 % (37.0-47.0); Hemoglobin 12.8 g/dl (12.0-16.0); Imm Gran Abs Auto 0.02 X10*3/uL (0.00-0.03); Imm Gran Pct Auto 0.4 % (0.0-0.4); Lymphocytes Absolute Auto 1.9 X10*3/uL (1.2-4.9); Lymphocytes Percent Auto 32.7 % (20-40); Mean Corpuscular HGB Conc 34.3 g/dl (31.0-35.0); Mean Corpuscular Hemoglobin 26.9 pg (27.0-33.0); Mean Corpuscular Volume 78.5 fL (80.0-98.0); Mean Platelet Volume 11.3 fL (9.4-12.3); Monocytes Absolute Auto 0.3 X10*3/uL (0.1-1.2); Monocytes Percent Auto 5.8 % (2-11); Neutrophils Absolute Auto 3.4 x10*3/uL (2.0-8.3); Platelet Count 160 X10*3/uL (160-400); Red Blood Count 4.75 X10*6/uL (4.20-5.50); Red Cell Distribution Width 13.2 % (11.0-16.0); White Blood Count 5.7 X10*3/uL (4.8-10.8)
[2023-01-22 18:57] LABS: TSH reflex Free T4 2.24 uIU/mL (0.32-4.0)
[2023-01-22 19:47] LABS: Beta-Hydroxybutyrate 0.12 mmol/L (0.02-0.27)
[2023-01-22 20:31] LABS: Glucose, Whole Blood 413 mg/dL (60-115)
--- NOTE | 2023-01-22 22:30 | PC.NURSE ---
repeat poc 371 pt states she has been taking cough drops all day causing her high sugars. pt was unaware this would raise her blood sugars. pt advised to get sugar free cough drops. will administer 5units subq insulin per providers orders
[2023-01-22 22:32] LABS: Glucose, Whole Blood 371 mg/dL (60-115)
[2023-01-22] MEDS: Insulin Lispro 100 UNIT/ML 3 ML VIAL SUBCUT (22:34)
[2023-01-22 22:40] VITALS: BP 134/81; PULSE 79; RESP 20; TEMP 36.6; O2SAT 96
--- NOTE | 2023-01-22 22:41 | PC.NURSE ---
Medicated per Aug, Notified LOLLY Posada
== END 2023-01-22 22:53 | disposition home or self-care (01) ==
PROVIDERS: Registered Nurse Emergency; Emergency Provider Emergency Medicine; PCP Family Medicine
DX: E11.65 Type 2 diabetes mellitus with hyperglycemia (principal); R10.9 Unspecified abdominal pain; E66.01 Morbid (severe) obesity due to excess calories; Z68.42 Body mass index [BMI] 45.0-49.9, adult; Z79.4 Long term (current) use of insulin; Z79.899 Other long term (current) drug therapy
CPT/HCPCS: 36415; 80053; 82010; 82947; 83690; 83735; 84443; 84484; 84702; 85025; 93005; 99283

== ENCOUNTER → 2023-01-22 17:13 | Outpatient (BNV) | payer OTHER, SELFPAY | PROVIDERS: Emergency Provider Emergency Medicine; PCP Family Medicine; Visit Provider Internal Medicine | DX: R07.9 Chest pain, unspecified (principal) | CPT/HCPCS: 93010 ==

== ENCOUNTER 2023-03-11 12:03 | Outpatient (AMB) | payer OTHER, SELFPAY ==
--- NOTE | 2023-03-11 12:06 | MHC.OFFVIS ---
Intake Vital Signs 03/11/23 12:12 Height 5 ft 4 in Weight 269 lb BMI 46.2 BP 135/62 Blood Pressure Location Lt brachial Position Sitting Pulse 80 Intake Visit Reasons: follow up Intake Note: Patient follow up for Chronic Constipation. Patient cc: constipation, abdominal pain, gassy with bad odor, and GERD. Medical Billing Assistant Required: Yes Medical Billing Assistant Name: [facility] [place] [facility] Accompanied by: Self / Same As Patient Allergies metronidazole [From FLAGYL] Allergy (Severe, Verified 03/11/23 12:05) CHEST PAIN TO LEFT SHOULDER, bacitracin [BACITRACIN] Allergy (Intermediate, Verified 03/11/23 12:05) BURNING, ITCHING aripiprazole [From Abilify] Allergy (Mild, Verified 03/11/23 12:05) ITCHING iopromide [From Ultravist] Allergy (Mild, Verified 03/11/23 12:05) DIZZY, DRY THROAT AND MOUTH risperidone [From Risperdal] Allergy (Unknown, Verified 03/11/23 12:05) high level prolactin Vistra 650 Allergy (Intermediate, Uncoded 10/15/22 10:40) attention issues Medication List - Last Reconciled 03/11/23 by Cherly Beckham PA-C acetaminophen ER 650 mg PO Q8H PRN albuterol sulfate 90 mcg/actuation 2 puffs inhalation Q6H 30 days atorvastatin 10 mg PO BEDTIME bisacodyl (Dulcolax (bisacodyl)) 10 mg MI DAILY PRN bupropion HCl 150 mg PO QAM chlorthalidone 25 mg PO DAILY cholecalciferol (vitamin D3) 50 mcg PO QAM 90 days clotrimazole 1% 1 appl topical BID 4 weeks clotrimazole-betamethasone 1-0.05 % 1 appl topical BID 5 days cyclobenzaprine 10 mg PO BEDTIME docusate sodium (Colace) 200 mg (2 x 100 mg) PO BEDTIME ferrous sulfate 325 mg PO DAILY 30 days fluticasone propionate 50 mcg/actuation 2 sprays intranasal ONCE gabapentin 300 mg PO BEDTIME 90 days galcanezumab-gnlm (Emgality Pen) mg subcut hydrocortisone 1% appl topical DAILY PRN hydrocortisone 2.5% (Proctozone-HC) 1 appl [place] BID PRN ibuprofen 600 mg PO Q8H PRN insulin glargine (Lantus Solostar U-100 Insulin) 20 units (0.2 mL) subcut QPM insulin lispro (Humalog KwikPen U-200 Insulin) 1 sliding scale dose subcut USEASDIRECTD levothyroxine 88 mcg PO DAILY 90 days loratadine (Allergy Relief (loratadine)) 10 mg PO DAILY 90 days medroxyprogesterone (Provera) 10 mg PO DAILY 10 days metformin 500 mg PO DAILY methylcellulose (laxative) (Citrucel) 500 mg PO BID naproxen 500 mg PO Q12H PRN omeprazole 20 mg PO BID 30 days omeprazole 20 mg PO DAILY polyethylene glycol 3350 (Miralax) 17 grams PO DAILY propranolol 20 mg PO QPM riboflavin (vitamin B2) 200 mg PO BID tramadol 50 mg PO Q6H PRN trazodone 50 mg PO BEDTIME HPI HPI Comments History of Present Illness Details A 43 y/o DM- female persistent gerd-omeprazole occasional breakthrough-she has gained weight diabetes not well controlled until recently Began Ozempic- with much improvement in sugars She has anxiety- she worries about pancreatitis, crohns, she does search [employer] appetite is good Bowels alternate-not typically diarrhea no hematochezia Has had difficulty walking she is now using diabetic shoes that have been helpful for her Her sister has colon polyps/ has had surgery- no other detail No nausea, vomiting, hematemesis, hematochezia fever chills PFSH Medical History Constipation Mass of left foot IBS (irritable colon syndrome) Morbid obesity with BMI of 45.0-49.9, adult GERD with esophagitis DMII (diabetes mellitus, type 2) Fibroadenoma of breast Fibromyalgia Hypothyroid PCOS (polycystic ovarian syndrome) PTSD (post-traumatic stress disorder) Surgical History History of excision of mass (08/07/22) History of esophagogastroduodenoscopy (EGD) History of D&C History of hand surgery History of section History of lumpectomy of right breast History of appendectomy Hx of appendectomy Family History Father Acral gangrene Mother Cancer Father Diabetes Gangrene Mother Diabetes Hypertension Thyroid disease Cervical cancer Dementia Son In good health Maternal Grandmother Breast cancer Sister Breast cancer Other Mental health disorder Social History Household Members: Children Housing: Apartment Alcohol intake: never Patient Tobacco Use Status: Never used Tobacco Current occupational status: disabled Female Reproductive History Menstrual Age of Menarche: 10 Review of Systems Const All systems reviewed & are unremarkable except as noted in HPI and below Denies chills, Denies fever(s) and Reports weight gain Card Denies chest pain and Denies dyspnea Resp Denies dyspnea GI Reports abdominal pain, Reports heartburn, Denies nausea and Denies vomiting Musc Reports abnormal gait, Reports back pain and Reports arthralgias Neuro Reports abnormal gait Psych Reports anxiety, Reports depression, Denies homicidal ideation and Denies suicidal ideation Physical Exam Vital Signs: Last Vital Signs Pulse 80 03/11/23 12:12 BP 135/62 03/11/23 12:12 BMI result Body Mass Index 46.2 Const General: cooperative and comfortable Nutritional Appearance: obese Orientation/consciousness: patient oriented x3 Limitations: crutches Eyes Sclerae: sclerae normal Resp Effort & Inspection: normal respiratory effort and able to speak in complete sentences Auscultation: clear to auscultation bilaterally, no rales, no rhonchi and no wheezes Cardio Rate: regular rate Rhythm: regular rhythm Heart sounds: S1 normal heart sound present and S2 normal heart sound present GI Palpation (GI): Soft to palpation and nontender Auscultation: normal bowel sounds Skin General skin exam: no rashes or lesions noted Neuro General: patient oriented x3 Extrem Other: Ambulates with cane Psych Speech and movement: Clear speech present Affect: normal affect Attitude: cooperative Thought process: Normal thought process present Thought content: Normal thought content present Results Reviewed Results Reviewed: EGD - Assessment & Plan Assessment & Plan (1) Chronic constipation: Code(s): K59.09 - Other constipation Plan: HFD Consistent bowel regimen (2) GERD with esophagitis: Code(s): K21.00 - Gastro-esophageal reflux disease with esophagitis, without bleeding Plan: Reflux precautions Continue ppi Plan Index screening colonoscopy MG split Discussed DM meds Orders: Orders Colonoscopy - GI Use Only Today Z12.11 - Encounter for screening for malignant neoplasm of colon Medications: New bisacodyl (Dulcolax (bisacodyl)) Take 4 tablets by mouth at 12:00pm the day before your procedure. 20 mg (4 x 5 mg) PO ONCE 4 tabs 0RF colonoscopy prep 1 day Z12.11 - Encounter for screening for malignant neoplasm of colon polyethylene glycol 3350 (Miralax) Take as directed by mouth the day before your procedure. 238 grams PO ONCE PRN 238 grams 0RF laxative effect 1 day Patient Instructions: Index screening colonoscopy-MG split prep !/2 dose insulin evebefore- no metformin, no DM meds morning of colonoscopy reflux precautions continue ppi avoid culprits consistent bowel regimen HFD Coding Level of Care Code New Pt Level 3 (69756) Diagnoses Chronic constipation K59.09 GERD with esophagitis K21.00 Time Spent (min) 30
[2023-03-11 12:12] VITALS: BP 135/62; PULSE 80; BMI 46.2
== END 2023-03-11 14:52 | disposition home or self-care (01) ==
PROVIDERS: Visit Provider Physician Assistant
DX: K59.09 Other constipation (principal); K21.00 Gastro-esophageal reflux disease with esophagitis, without bleeding
CPT/HCPCS: 99213

== ENCOUNTER → 2023-03-11 12:03 | Outpatient (BNVA) | payer OTHER, SELFPAY | PROVIDERS: Visit Provider Physician Assistant | DX: K59.09 Other constipation (principal); K21.00 Gastro-esophageal reflux disease with esophagitis, without bleeding; Z79.899 Other long term (current) drug therapy | CPT/HCPCS: 99212 ==

== ENCOUNTER 2023-03-23 10:09 | Outpatient (REF) | payer OTHER, SELFPAY | END 2023-03-23 10:10 | disposition home or self-care (01) | LOC: HO.MAMMO 10:09 | PROVIDERS: PCP Family Medicine; Visit Provider Family Medicine | DX: Z12.31 Encounter for screening mammogram for malignant neoplasm of breast (principal) | CPT/HCPCS: 77063; 77067 ==

== ENCOUNTER → 2023-03-23 10:15 | Outpatient (BNV) | payer OTHER, SELFPAY | PROVIDERS: PCP Family Medicine; Visit Provider Radiology Diagnostic Radiology | DX: Z12.31 Encounter for screening mammogram for malignant neoplasm of breast (principal) | CPT/HCPCS: 77063; 77067 ==

== ENCOUNTER 2023-05-05 11:58 | Outpatient (REF) | payer OTHER, SELFPAY ==
[2023-05-05 13:19] LABS: MANUAL DIFF FLAG NO
[2023-05-05 13:39] LABS: Basophils Absolute Auto 0.1 X10*3/uL (0.0-0.2); Basophils Percent Auto 0.7 % (0-2); Eosinophils Absolute Auto 0.3 X10*3/uL (0.0-0.4); Eosinophils Percent Auto 3.7 % (0-4); Hematocrit 36.3 % (37.0-47.0); Hemoglobin 11.7 g/dl (12.0-16.0); Imm Gran Abs Auto 0.02 X10*3/uL (0.00-0.03); Imm Gran Pct Auto 0.3 % (0.0-0.4); Lymphocytes Absolute Auto 2.1 X10*3/uL (1.2-4.9); Lymphocytes Percent Auto 28.4 % (20-40); Mean Corpuscular HGB Conc 32.2 g/dl (31.0-35.0); Mean Corpuscular Hemoglobin 26.5 pg (27.0-33.0); Mean Corpuscular Volume 82.3 fL (80.0-98.0); Mean Platelet Volume 10.4 fL (9.4-12.3); Monocytes Absolute Auto 0.4 X10*3/uL (0.1-1.2); Monocytes Percent Auto 4.9 % (2-11); Neutrophils Absolute Auto 4.5 x10*3/uL (2.0-8.3); Platelet Count 275 X10*3/uL (160-400); Red Blood Count 4.41 X10*6/uL (4.20-5.50); Red Cell Distribution Width 13.3 % (11.0-16.0); White Blood Count 7.3 X10*3/uL (4.8-10.8)
[2023-05-05 14:14] LABS: Alanine Aminotransferase 38 U/L (0-31); Alkaline Phosphatase 74 U/L (39-117); Anion Gap 9 (12-20); Aspartate Amino Transferase 33 U/L (5-31); Bilirubin Total 0.4 mg/dL (0.0-1.0); Blood Urea Nitrogen 16 mg/dL (9-16); Calcium 9.4 mg/dL (8.4-10.2); Carbon Dioxide 29 mmol/L (22-29); Chloride 106 mmol/L (96-108); Estimated Glomerular Filt Rate > 60; Glucose Random 83 mg/dL (60-115); Potassium 4.1 mmol/L (3.3-5.1); Sodium 140 mmol/L (135-145); TSH reflex Free T4 3.16 uIU/mL (0.32-4.0); Total Protein 8.6 g/dL (6.5-8.0)
[2023-05-05 14:23] LABS: Folate 7.8 ng/mL (> or = 4.0); Vitamin B12 825 pg/mL (200-900)
== END 2023-05-05 11:59 | disposition home or self-care (01) ==
LOC: HO.HHCL 11:58
PROVIDERS: Visit Provider Family Medicine
DX: E11.65 Type 2 diabetes mellitus with hyperglycemia (principal); Z86.2 Personal history of diseases of the blood and blood-forming organs and certain disorders involving the immune mechanism; Z79.4 Long term (current) use of insulin
CPT/HCPCS: 36415; 80053; 82607; 82746; 84443; 85025

== ENCOUNTER 2023-06-24 09:34 | Outpatient (AMB) | payer OTHER, SELFPAY ==
[2023-06-24 10:21] VITALS: BP 126/72; BMI 42.0
--- NOTE | 2023-06-24 10:21 | MHC.OFFVIS ---
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 Intake Note: Rash on groin Instrumentation Chemist Required: Yes Instrumentation Chemist Language: Child Protection Specialist Name: Itzel SPANN Information Interpreted: non-clinical & clinical Piano Sounding Board Matcher: Piano Sounding Board Matcher Present (Itzel SPANN) Accompanied by: Self / Same As Patient Allergies metronidazole [From FLAGYL] Allergy (Severe, Verified 06/24/23 10:28) CHEST PAIN TO LEFT SHOULDER, bacitracin [BACITRACIN] Allergy (Intermediate, Verified 06/24/23 10:28) BURNING, ITCHING aripiprazole [From Abilify] Allergy (Mild, Verified 06/24/23 10:28) ITCHING iopromide [From Ultravist] Allergy (Mild, Verified 06/24/23 10:28) DIZZY, DRY THROAT AND MOUTH risperidone [From Risperdal] Allergy (Unknown, Verified 06/24/23 10:28) high level prolactin Vistra 650 Allergy (Intermediate, Uncoded 06/24/23 10:28) attention issues Is last menstrual period known: Yes Last menstrual period: 06/03/23 HPI HPI Comments History of Present Illness Details Presenting for annual exam. No complaints. Last Pap/HPV was negative in 01/09 Last Mammogram was BI-RADS 1 in 04/12 No previous screening colonoscopy, the patient has a schedule appointment in 2 months with GI [facility] Medical History Constipation Mass of left foot IBS (irritable colon syndrome) Morbid obesity with BMI of 45.0-49.9, adult GERD with esophagitis DMII (diabetes mellitus, type 2) Fibroadenoma of breast Fibromyalgia Hypothyroid PCOS (polycystic ovarian syndrome) PTSD (post-traumatic stress disorder) Surgical History History of excision of mass (08/07/22) History of esophagogastroduodenoscopy (EGD) History of D&C History of hand surgery History of section History of lumpectomy of right breast History of appendectomy Hx of appendectomy Family History Father Acral gangrene Mother Cancer Father Diabetes Gangrene Mother Diabetes Hypertension Thyroid disease Cervical cancer Dementia Son In good health Maternal Grandmother Breast cancer Sister Breast cancer Other Mental health disorder Social History Household Members: Children Housing: Apartment Alcohol intake: never Patient Tobacco Use Status: Never used Tobacco Current occupational status: disabled Sexually active: Yes Sexual orientation: Straight/Heterosexual Gender identity: Female Female Reproductive History Menstrual Age of Menarche: 10 Date of last menstrual period: 06/03/23 Total pregnancies: 1 Full term: 1 Number of Living Children: 1 Date of last pap smear: 12/30/21 Date of Mammogram: 03/23/23 Review of Systems Const All systems reviewed & are unremarkable except as noted in HPI and below Card Reports as per HPI Resp Reports as per HPI GI Reports as per HPI and Reports no additional complaints Reports as per HPI Physical Exam Vital Signs: Last Vital Signs BP 126/72 06/24/23 10:21 BMI result Body Mass Index 42.0 Const General: cooperative, healthy appearing and comfortable Chest Chest palpation & inspection: normal inspection of the chest and normal palpation of entire chest wall Breast/axilla inspection: normal inspection of the breasts and normal inspection of the axillae Breast/axilla palpation: normal palpation of the breasts, normal palpation of the axillae and no axillary lymphadenopathy Resp Effort & Inspection: normal respiratory effort Auscultation: clear to auscultation bilaterally Percussion: percussion normal Cardio Palpation: normal PMI Rate: regular rate Rhythm: regular rhythm Heart sounds: no murmurs and no rubs Peripheral pulses: Peripheral pulses 2+ throughout GI Inspection: Yes normal to inspection Palpation (GI): Soft to palpation, nontender, no guarding, not rigid and No hepatosplenomegaly present Percussion: Yes normal to percussion Auscultation: normal bowel sounds Rectal Exam - Female: deferred General: Yes bladder normal to palpation External Female Exam: No lesion Speculum Exam - Vagina: normal appearance of the vagina, normal palpation, normal vaginal discharge and not erythematous Speculum Exam - Cervix: normal appearance of the cervix and normal palpation Bimanual exam- vagina & uterus: normal bimanual exam, normal palpation, uterine size normal, bladder normal to palpation, consistency normal and normal palpation Bimanual Exam- Adnexa, other: normal adnexae, no masses and no tenderness Assessment & Plan Assessment & Plan (1) Well woman exam: Code(s): Z01.419 - Encounter for gynecological examination (general) (routine) without abnormal findings Plan: Cotesting not indicated this year. Instructions given the patient to schedule her next screening Mammogram in 04/13. Counseled the patient about the recommended dietary allowance of 1000 mg of Calcium & 600 IU of vitamin D. The patient was instructed to perform monthly self-breast exams and to schedule an annual exam in a year; The patient has an appointment with GI in 2 months for a screening colonoscopy All questions answered and the patient verbalized understanding. Instructed the patient to schedule annual exam in a year Coding Level of Care Code Est Pt Prev Care 40-64y(97074) Diagnoses Well woman exam Z01.419
== END 2023-06-24 10:59 | disposition home or self-care (01) ==
LOC: HO.HWS 09:34
PROVIDERS: PCP Family Medicine; Visit Provider Obstetrics & Gynecology
DX: Z01.419 Encounter for gynecological examination (general) (routine) without abnormal findings (principal)
CPT/HCPCS: 99396

== ENCOUNTER → 2023-06-24 09:34 | Outpatient (BNVA) | payer OTHER, SELFPAY | PROVIDERS: PCP Family Medicine; Visit Provider Obstetrics & Gynecology ==

== ENCOUNTER 2023-07-30 10:33 | Outpatient (AMB) | payer OTHER, SELFPAY ==
[2023-07-30 10:35] VITALS: BP 128/80; PULSE 81; TEMP 36.1; O2SAT 97; BMI 44.8
--- NOTE | 2023-07-30 10:35 | MHC.OFFVIS ---
Intake Vital Signs 07/30/23 10:35 Height 5 ft 4 in Weight 261 lb 0.437 oz BMI 44.8 BP 128/80 Blood Pressure Location Rt brachial Position Sitting Pulse 81 Pulse Source Pulse Oximeter Temp 96.9 F Temp Source Skin Pulse Oximetry (%) 97 Oxygen Delivery Method Room Air Intake Visit Reasons: fibromyalgia. Intake Note: Patient last seen 07/31/22 by Osiris, presents today for fibromyalgia follow up. Currently doing PT. Reports seeing family dentist Dr Marvin Ward [facility] and aircraft inspection record clerk Huan Holman at [facility]. Recent labs done with [facility]. Reports issues with kidneys prescribed lisinopril, she is concerned with her kidney function. Reports fall approx 2 days ago. Distribution Center Administrator Required: No Accompanied by: Self / Same As Patient Allergies metronidazole [From FLAGYL] Allergy (Severe, Verified 07/30/23 10:40) CHEST PAIN TO LEFT SHOULDER, bacitracin [BACITRACIN] Allergy (Intermediate, Verified 07/30/23 10:40) BURNING, ITCHING aripiprazole [From Abilify] Allergy (Mild, Verified 07/30/23 10:40) ITCHING iopromide [From Ultravist] Allergy (Mild, Verified 07/30/23 10:40) DIZZY, DRY THROAT AND MOUTH risperidone [From Risperdal] Allergy (Unknown, Verified 07/30/23 10:40) high level prolactin Vistra 650 Allergy (Intermediate, Uncoded 07/30/23 10:40) attention issues HPI HPI Comments History of Present Illness Details Mrs. Muñoz pis 43yoF with a history of fibromyalgia presents for follow-up for bilateral foot pain. Last seen in Jul 2022. Past medical history significant for chronic constipation, irritable bowel syndrome, GERD with esophagitis, pituitary adenoma, diabetes type 2, insomnia and hypothyroidism. Patient is using a rolling walker says she is seeing the family dentist and was diagnosed with drop foot due to diabetic neuropathy. Prior Visit Patient states she is following with Dr. Velasco for a cyst on the left foot. She has a mass on the lateral aspect of the left foot, excised under local anesthesia April [address] Velasco. Per Dr. Velasco's note, patient had poor healing of the wound and the mass recurred. The pathology report showed fibrovascular tissue, fibrinoid necrosis and granulation tissue. Patient continues to have pain due to the mass and the plan is for excision under anesthesia in the OR next week. Patient reports continued head to toe pain and skin sensitivity due to her fibromyalgia. She continues to take cyclobenzaprine daily. She states she takes her gabapentin as needed because she feels that can make her groggy. Also using either ibuprofen or naproxen for her pain. She is aware not to take ibuprofen naproxen concomitantly. She states that she uses trazodone for sleep. She states that she sleeps 6 hours a night. She admits to hallucinating at times when she is tired and states her neurologist and mental health provider are aware of this. She admits to depression and stress with caring for her child who has autisim. She is following with a therapist and is taking bupropion. She is taking Emgality for migraines which have been controlled, she is following with Neurology. She reports continued left knee pain that started in January 2022 for which she was in PT. She found PT helpful for her pain, but had to stop after 3 or 4 visits to address her left foot mass. Knee pain is worse with navigating stairs. Also using aspercreme with lidocaine with good effect. She is interested in trying PT again after her foot heals. [facility] Medical History (Updated 08/02/23 @ 16:47 by JENNA Cotton) Foot drop, left Constipation Mass of left foot IBS (irritable colon syndrome) Morbid obesity with BMI of 45.0-49.9, adult GERD with esophagitis DMII (diabetes mellitus, type 2) Fibroadenoma of breast Fibromyalgia Hypothyroid PCOS (polycystic ovarian syndrome) PTSD (post-traumatic stress disorder) Surgical History History of excision of mass (08/07/22) History of esophagogastroduodenoscopy (EGD) History of D&C History of hand surgery History of section History of lumpectomy of right breast History of appendectomy Hx of appendectomy Family History Father Acral gangrene Mother Cancer Father Diabetes Gangrene Mother Diabetes Hypertension Thyroid disease Cervical cancer Dementia Son In good health Maternal Grandmother Breast cancer Sister Breast cancer Other Mental health disorder Social History Household Members: Children Housing: Apartment Alcohol intake: never Patient Tobacco Use Status: Never used Tobacco Current occupational status: disabled Sexual orientation: Straight/Heterosexual Gender identity: Female Female Reproductive History Menstrual Age of Menarche: 10 Review of Systems Const All systems reviewed & are unremarkable except as noted in HPI and below Physical Exam Vital Signs: Last Vital Signs Temp 96.9 F 07/30/23 10:35 Pulse 81 07/30/23 10:35 BP 128/80 07/30/23 10:35 Pulse Ox 97 07/30/23 10:35 Oxygen Delivery Method Room Air 07/30/23 10:35 BMI result Body Mass Index 44.8 APPEARANCE: Patient in no acute distress. Obese. EYES: no redness, pupils equal and reactive to light, eyelids normal EARS: External ear normal. NOSE/SINUS: Airflow through both nares, no nasal discharge, no bleeding THROAT: Oral mucosa moist, no ulcerations NECK: No thyromegaly or masses, no adenopathy, trachea midline. HEART: Regular rhythm, S1-S2 heard, no murmurs, rubs or gallops. LUNG: Clear to auscultation, respiratory rate regular nonlabored. EXTREMITIES: No edema, no calf tenderness, normal peripheral pulses. NEURO: Oriented and alert x3. No focal weakness. Gait normal. SKIN: No inflammatory or neoplastic lesions. Normal color and turgor. No lumps appreciated generally. JOINT EXAM:? Cervical Spine:? Full range of motion without pain; no tenderness. Thoracic Spine:? No scoliosis.? No tenderness on palpation. Lumbar Spine:? Alignment normal.? Full range of motion without pain, no tenderness. Hands:? Normal pain-free range of motion without tenderness, swelling, increased warmth or erythema. Able to make a full fist and has a good textile science technician strength. Wrists:? Normal pain-free range of motion without tenderness, swelling, increased warmth or erythema. Elbows: Normal pain-free range of motion without tenderness, swelling, increased warmth or erythema. Shoulders:?? Full range of motion without pain. No tenderness, weakness, swelling, increased warmth or erythema. Hips:? Full range of motion without pain. Hip bursa: No tenderness. Knees: LEFT:? Normal pain-free range of motion. Tenderness to palpation over the medial joint line. Pain with stepping up 1 step. No swelling, increased warmth or erythema.? There is no effusion or crepitation RIGHT: Normal pain free range of motion. No tenderness, swelling, increased warmth or erythema. Ankles: Normal pain-free range of motion without tenderness, swelling, increased warmth or erythema. Feet: LEFT: weakness, flap footing posture cannot lift the front part of her foot. Normal pain-free range of motion. Foot otherwise without tenderness, swelling, increased warmth or erythema. RIGHT: Normal pain-free range of motion without tenderness, swelling, increased warmth or erythema. Tender points: Tenderness to digital palpation at the occiput, trapezius, second rib, lateral epicondyle, knees, greater trochanter and gluteal area bilaterally. Results Reviewed Results Reviewed: Laboratory Tests 05/05/23 12:00 Calcium 9.4 AST 33 H ALT 38 H Assessment & Plan Assessment & Plan (1) Fibromyalgia: Code(s): M79.7 - Fibromyalgia (2) Left knee pain: Code(s): M25.562 - Pain in left knee Qualifiers: Chronicity: chronic Qualified Code(s): M25.562 - Pain in left knee; G89.29 - Other chronic pain (3) Foot drop, left: Code(s): M21.372 - Foot drop, left foot Plan #Left Foot Drop: She is being followed by podiatry who describes that this in large part due to diabetic neuropathy. Drop foot can also be associated with sarcoidosis. However, she had a mass excised twice from the left foot, lateral aspect, and pathology did not identify sarcoid tissue (granulomas) but as described below. According to Spring 2022 notes from General surgery: The patient is a 42-year-old female with note of a mass on the lateral aspect of the left foot. This appeared to be subcutaneous. She had this excised last April, under local anesthesia and this showed fibrovascular tissue, with granulation and fibroid necrosis. This had occurred and had become larger in size. Since this has been causing her problems with regards to pain, tenderness and difficulty with wearing shoes, she wanted to proceed with excision. The mass had recurr with callus formation and she was referred to podiatry. She will continue to follow-with podiatry whom did a third excision. #Left Knee Pain: Patient with continued left knee pain. Pain is present with use. X-ray in January 2022 was unremarkable. On exam she has tenderness to palpation along the medial joint line. No erythema, effusion or crepitus noted. Per patient report her symptoms were improved with physical therapy which she stopped after 3 or 4 visits to care for her left foot. She is using Aspercreme with lidocaine with good effect. Recommend weight loss, continue Aspercreme with lidocaine and return to PT when she is able. She will contact the clinic if her symptoms persist or worsen. Patient with multiple fibromyalgia tender points on exam. Recommend she continue Flexeril and gabapentin as tolerated.? Patient encouraged to remain active to help with symptoms of fibromyalgia as well as with weight loss and sleep. Continue follow-up with mental health provider. Patient will contact the office if needed. 35 minutes spent reviewing chart, evaluating patient and documenting. Orders: Orders Calcium Today M21.372 - Foot drop, left foot, R22.42 - Localized swelling, mass and lump, left lower limb Vitamin D 1,25 dihydroxy Today M21.372 - Foot drop, left foot, R22.42 - Localized swelling, mass and lump, left lower limb Angiotensin Converting Enzyme Today M21.372 - Foot drop, left foot, R22.42 - Localized swelling, mass and lump, left lower limb Coding Level of Care Code Est Pt Level 4 (23243) Diagnoses Fibromyalgia M79.7 Chronic pain of left knee M25.562; G89.29 Chronicity: chronic Foot drop, left M21.372
== END 2023-07-30 11:18 | disposition home or self-care (01) ==
PROVIDERS: PCP Family Medicine; Visit Provider Nurse Practitioner Family
DX: M79.7 Fibromyalgia (principal); M25.562 Pain in left knee; G89.29 Other chronic pain; M21.372 Foot drop, left foot
CPT/HCPCS: 99214

== ENCOUNTER → 2023-07-30 10:33 | Outpatient (BNVA) | payer OTHER, SELFPAY | PROVIDERS: PCP Family Medicine; Visit Provider Nurse Practitioner Family | DX: M79.7 Fibromyalgia (principal); M21.372 Foot drop, left foot; M25.562 Pain in left knee; G89.29 Other chronic pain | CPT/HCPCS: 99212 ==

== ENCOUNTER 2023-08-02 10:00 | Outpatient (RCR) | payer OTHER, SELFPAY | END 2023-08-05 10:30 | disposition home or self-care (01) | LOC: HO.PT 10:00 | PROVIDERS: PCP Family Medicine; Visit Provider Family Medicine | DX: M25.561 Pain in right knee (principal); M25.571 Pain in right ankle and joints of right foot; G89.29 Other chronic pain | CPT/HCPCS: 97110; 97112; 97162; 97530 ==

== ENCOUNTER 2023-08-19 10:16 | Outpatient (AMB) | payer OTHER, SELFPAY ==
--- NOTE | 2023-08-19 10:18 | MHC.OFFVIS ---
Intake Vital Signs 08/19/23 10:29 Height 5 ft 4 in Weight 260 lb 2.327 oz BMI 44.6 BP 118/74 Intake Visit Reasons: vaginal bleeding Perfect Binder Feeder Offbearer Required: Yes Perfect Binder Feeder Offbearer Language: Web Applications Developer Name: Itzel SPANN Information Interpreted: non-clinical & clinical Accompanied by: Self / Same As Patient Allergies metronidazole [From FLAGYL] Allergy (Severe, Verified 08/19/23 10:35) CHEST PAIN TO LEFT SHOULDER, bacitracin [BACITRACIN] Allergy (Intermediate, Verified 08/19/23 10:35) BURNING, ITCHING aripiprazole [From Abilify] Allergy (Mild, Verified 08/19/23 10:35) ITCHING iopromide [From Ultravist] Allergy (Mild, Verified 08/19/23 10:35) DIZZY, DRY THROAT AND MOUTH risperidone [From Risperdal] Allergy (Unknown, Verified 08/19/23 10:35) high level prolactin Vistra 650 Allergy (Intermediate, Uncoded 08/19/23 10:35) attention issues Is last menstrual period known: No HPI HPI Comments History of Present Illness Details Presenting complaining of missing her menstrual cycle last 2 months. No other associated hair growth and or pill discharge PFSH Medical History Foot drop, left Constipation Mass of left foot IBS (irritable colon syndrome) Morbid obesity with BMI of 45.0-49.9, adult GERD with esophagitis DMII (diabetes mellitus, type 2) Fibroadenoma of breast Fibromyalgia Hypothyroid PCOS (polycystic ovarian syndrome) PTSD (post-traumatic stress disorder) Surgical History History of excision of mass (08/07/22) History of esophagogastroduodenoscopy (EGD) History of D&C History of hand surgery History of section History of lumpectomy of right breast History of appendectomy Hx of appendectomy Family History Father Acral gangrene Mother Cancer Father Diabetes Gangrene Mother Diabetes Hypertension Thyroid disease Cervical cancer Dementia Son In good health Maternal Grandmother Breast cancer Sister Breast cancer Other Mental health disorder Social History Household Members: Children Housing: Apartment Alcohol intake: never Patient Tobacco Use Status: Never used Tobacco Current occupational status: disabled Sexual orientation: Straight/Heterosexual Gender identity: Female Female Reproductive History Menstrual Age of Menarche: 10 Review of Systems Const All systems reviewed & are unremarkable except as noted in HPI and below Reports as per HPI and Reports no additional complaints GI Reports no additional complaints Reports no additional complaints Physical Exam Vital Signs: Last Vital Signs BP 118/74 08/19/23 10:29 BMI result Body Mass Index 44.6 Results AMB Test Urine AMB Test Urine Negative Last Edit by Itzel Painting CMA on 08/19/23 10:43 Assessment & Plan Assessment & Plan (1) Amenorrhea: Code(s): N91.2 - Amenorrhea, unspecified Plan: UPT done in the office was negative. Discussed with the patient the possible causes of amenorrhea including but not limited to anovulation, thyroid and prolactin disorders, , end organ problems (uterine synechiae), medication side effects and others. The workup includes to start with UPT if negative this will be followed by a progesterone withdrawal test x 5 days if + bleeding this will be followed by TSH, PRL if negative then the diagnosis is anovulation. if no bleeding occurs will treat with Premarin x 21 days followed by Provera if no bleeding occurs will rule out Premature ovarian failure with FSH/LH. Instructions given the patient to schedule a 2 week follow-up appointment and if she has a positive withdrawal bleed to go ahead with blood work including TSH, prolactin and HCG. All questions answered, the patient verbalized understanding Orders: Orders AMB HCG Urine Test Today Z32.02 - Encounter for test, result negative TSH reflex Free T4 Today N91.2 - Amenorrhea, unspecified Prolactin Today N91.2 - Amenorrhea, unspecified HCG Quantitative Today N91.2 - Amenorrhea, unspecified Medications: New medroxyprogesterone (Provera) 10 mg PO daily 5 tabs 0RF 5 days Coding Level of Care Code Est Pt Level 3 (66195) Diagnoses Amenorrhea N91.2
[2023-08-19 10:29] VITALS: BP 118/74; BMI 44.6
== END 2023-08-19 12:13 | disposition home or self-care (01) ==
PROVIDERS: PCP Family Medicine; Visit Provider Obstetrics & Gynecology
DX: N91.2 Amenorrhea, unspecified (principal); Z32.02 Encounter for pregnancy test, result negative
CPT/HCPCS: 99213

== ENCOUNTER → 2023-08-19 10:16 | Outpatient (BNVA) | payer OTHER, SELFPAY | PROVIDERS: PCP Family Medicine; Visit Provider Obstetrics & Gynecology | DX: N91.2 Amenorrhea, unspecified (principal) | CPT/HCPCS: 81025; 99212 ==

== ENCOUNTER 2023-10-06 12:25 | Emergency (ER) | payer OTHER, SELFPAY ==
--- NOTE | ~2023-10-06 | XR_ITS ---
EXAMINATION: XR knee LT 2V, XR knee RT 2V CLINICAL INFORMATION: Reason for Exam fall onto knees COMPARISON: Prior x-ray November 2022 TECHNIQUE: Frontal and lateral views right and left knee. FINDINGS: BONES: No fracture or dislocation is present. JOINTS: Mild narrowing of joint spaces suggesting mild early DJD. There is no joint effusion on either side. SOFT TISSUE: Normal XR/XR knee LT 2V IMPRESSION: Mild bilateral tricompartment degenerative osteoarthritis. No fracture. No joint effusions.
--- NOTE | ~2023-10-06 | XR_ITS ---
EXAMINATION: XR knee LT 2V, XR knee RT 2V CLINICAL INFORMATION: Reason for Exam fall onto knees COMPARISON: Prior x-ray November 2022 TECHNIQUE: Frontal and lateral views right and left knee. FINDINGS: BONES: No fracture or dislocation is present. JOINTS: Mild narrowing of joint spaces suggesting mild early DJD. There is no joint effusion on either side. SOFT TISSUE: Normal XR/XR knee RT 2V IMPRESSION: Mild bilateral tricompartment degenerative osteoarthritis. No fracture. No joint effusions.
[2023-10-06 12:32] VITALS: BP 118/98; BP 136/88; PULSE 84; PULSE 90; RESP 18; TEMP 36.6; O2SAT 98; BMI 42.9
--- NOTE | 2023-10-06 12:35 | ED.GENADULT ---
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 She was at her physical therapy appointment today when she tripped over her own feet while walking with her walker. Reports falling forward onto both of her knees. Denies head strike or LOC. Not on anticoagulation. EMS was initially called for lift assist however on arrival, patient began complaining of bilateral knee pain. Ambulates with walker at baseline. She endorses history of neuropathy. Denies fever, chills, neck or back pain, headache, dizziness, vision changes, tingling/weakness of her lower extremities. Related Data Home Medications ?Medication ?Instructions ?Recorded ?Confirmed galcanezumab-gnlm 120 mg/mL mg subcut 05/08/20 07/02/22 subcutaneous pen injector (Emgality Pen) acetaminophen 650 mg 650 mg PO Q8H PRN Pain 05/29/20 08/07/22 tablet,extended release riboflavin (vitamin B2) 100 mg 200 mg PO BID 05/29/20 08/07/22 tablet propranolol 20 mg tablet 20 mg PO QPM 12/05/20 08/07/22 atorvastatin 10 mg tablet 10 mg PO BEDTIME 07/23/21 08/07/22 chlorthalidone 25 mg tablet 25 mg PO DAILY 07/30/21 08/07/22 hydrocortisone 1 % topical cream appl topical DAILY PRN 01/28/22 07/02/22 semaglutide 0.25 mg or 0.5 mg (2 0.25 mg subcut QWEEK 06/24/23 mg/3 mL) subcutaneous pen injector (Ozempic) ibuprofen 800 mg tablet 800 mg PO TID 07/30/23 lisinopril 10 mg tablet 10 mg PO DAILY 07/30/23 metformin 500 mg tablet,extended 1,000 mg PO BID 07/30/23 release 24 hr Previous Rx's ?Medication ?Instructions ?Recorded clotrimazole 1 % topical cream 1 appl topical BID 4 weeks #28 05/22/20 grams albuterol sulfate 90 mcg/actuation 2 puff inhalation Q6H shortness of 12/05/20 aerosol inhaler breath or wheezing 30 days #8.5 grams bupropion HCl 150 mg 24 hr tablet, 150 mg PO QAM #90 tabs 02/26/21 extended release cholecalciferol (vitamin D3) 50 50 mcg PO QAM 90 days #90 caps 02/26/21 mcg (2,000 unit) capsule trazodone 50 mg tablet 50 mg PO BEDTIME #90 tabs 02/26/21 gabapentin 300 mg capsule 300 mg PO BEDTIME 90 days #90 caps 06/12/21 levothyroxine 88 mcg tablet 88 mcg PO DAILY 90 days #90 tabs 08/30/21 loratadine 10 mg tablet (Allergy 10 mg PO DAILY 90 days #90 tabs 09/22/21 Relief (loratadine)) clotrimazole-betamethasone 1 1 appl topical BID 5 days #45 grams 12/01/21 %-0.05 % topical cream hydrocortisone 2.5 % topical cream 1 appl IN BID PRN hemorrhoids #30 01/28/22 with perineal applicator grams (Proctozone-HC) fluticasone propionate 50 2 spray intranasal ONCE #16 grams 03/05/22 mcg/actuation nasal spray,suspension ibuprofen 600 mg tablet 600 mg PO Q8H PRN pain #20 tabs 05/08/22 cyclobenzaprine 10 mg tablet 10 mg PO BEDTIME #30 tabs 07/06/22 tramadol 50 mg tablet 50 mg PO Q6H PRN pain #30 tabs 08/07/22 methylcellulose (laxative) 500 mg 500 mg PO BID #60 tabs 01/05/23 tablet (Citrucel) bisacodyl 5 mg tablet,delayed 20 mg (4 x 5 mg) PO ONCE 03/11/23 release (Dulcolax (bisacodyl)) colonoscopy prep 1 day #4 tabs polyethylene glycol 3350 17 238 g PO ONCE PRN laxative effect 05/12/23 gram/dose oral powder (Miralax) 1 day #238 grams docusate sodium 100 mg capsule 200 mg (2 x 100 mg) PO BEDTIME #60 06/28/23 caps medroxyprogesterone 10 mg tablet 10 mg PO daily 5 days #5 tabs 08/19/23 (Provera) omeprazole 20 mg capsule,delayed 20 mg PO QAM #30 caps 09/23/23 release acetaminophen 325 mg tablet 650 mg (2 x 325 mg) PO Q4H PRN 10/06/23 (Tylenol) fever or pain #30 tabs ibuprofen 200 mg capsule (Motrin 600 mg (3 x 200 mg) PO Q4H PRN 10/06/23 IB) fever or pain #20 caps Allergies Allergy/AdvReac Type Severity Reaction Status Date / Time metronidazole [From FLAGYL] Allergy Severe CHEST PAIN Verified 10/06/23 12:38 TO LEFT SHOULDER, bacitracin [BACITRACIN] Allergy Intermediate BURNING, Verified 10/06/23 12:38 ITCHING aripiprazole [From Abilify] Allergy Mild ITCHING Verified 10/06/23 12:38 iopromide [From Ultravist] Allergy Mild DIZZY, DRY Verified 10/06/23 12:38 THROAT AND MOUTH risperidone [From Risperdal] Allergy Unknown high level Verified 10/06/23 12:38 prolactin Vistra 650 Allergy Intermediate attention Uncoded 08/19/23 10:35 issues Review of Systems Review of Systems: Constitutional: No fever, chills, fatigue, night sweats, weight changes ENT/Mouth: No ear pain, hearing loss, nasal congestion, sinus pain, rhinorrhea, sore throat Eyes: No eye pain, swelling, redness, vision changes, discharge Cardio: No chest pain, palpitations, RAMIREZ, orthopnea, peripheral edema Pulm: No SOB, cough, sputum, wheezing, dyspnea, hemoptysis GI: No nausea, vomiting, hematemesis, abdominal pain, diarrhea, constipation, hematochezia, melena : No irregular bleeding, dysuria, frequency, urgency, hesitancy, hematuria, flank pain, urinary flow changes, urinary incontinence or retention MSK: No back pain, neck pain, joint pain, myalgias, +knee pain Skin: No lesions, rashes Neuro: No weakness, numbness, paresthesias, LOC, dizziness, headache Psych: No anxiety/panic, depression, SI/HI, AH/VH All other systems reviewed and are negative. [facility] Past Medical History Attestation statement: The following information was validated with the patient. Source: old records reviewed and nursing notes reviewed Medical History Foot drop, left Constipation Mass of left foot IBS (irritable colon syndrome) Morbid obesity with BMI of 45.0-49.9, adult GERD with esophagitis DMII (diabetes mellitus, type 2) Fibroadenoma of breast Fibromyalgia Hypothyroid PCOS (polycystic ovarian syndrome) PTSD (post-traumatic stress disorder) Surgical History History of excision of mass (08/07/22) History of esophagogastroduodenoscopy (EGD) History of D&C History of hand surgery History of section History of lumpectomy of right breast History of appendectomy Hx of appendectomy Family History Family History Father Acral gangrene Mother Cancer Father Diabetes Gangrene Mother Diabetes Hypertension Thyroid disease Cervical cancer Dementia Son In good health Maternal Grandmother Breast cancer Sister Breast cancer Other Mental health disorder Social History Social History Household Members: Children Housing: Apartment Alcohol intake: never Patient Tobacco Use Status: Never used Tobacco Advance Directives: No Advance Directives Information Provided: No Current occupational status: disabled Sexual orientation: Straight/Heterosexual Gender identity: Female Physical Exam ED Vital Signs: Vital Signs - 24 hr 10/06/23 12:32 10/06/23 15:02 Temperature 97.8 F 97.8 F Pulse Rate 84 84 Respiratory Rate 18 18 Blood Pressure 118/98 H 118/98 H Pulse Oximetry 98 98 Oxygen Delivery Method Room Air Room Air BMI result Body Mass Index 42.9 Hypertensive, afebrile Const General: cooperative, healthy appearing, comfortable and no acute distress Orientation/consciousness: patient oriented x3 Limitations: no limitations HENMT Head: Yes normal to inspection, Yes No palpable skull fracture present, Yes normocephalic and Yes atraumatic Eyes General: appearance normal, both eyes and all related structures Conjunctivae: conjunctivae normal Sclerae: sclerae normal Pupils: Equal, round and reactive pupils present Neck Neck: Yes normal visual inspection Resp Effort & Inspection: normal respiratory effort and able to speak in complete sentences Auscultation: clear to auscultation bilaterally Cardio Rate: regular rate Rhythm: regular rhythm GI Inspection: Yes normal to inspection Palpation (GI): Soft to palpation Skin General skin exam: no rashes or lesions noted Neuro Other: + ambulating with steady gait with walker General: patient oriented x3 Cranial nerves: Yes Equal, round and reactive pupils present Deep tendon reflexes (DTR's): Right patellar reflex intensity grade: 2+ and Left patellar reflex intensity grade: 2+ Extrem Other: + bilateral knees without overlying deformity or skin changes. Full ROM intact with flexion and extension of both knees. No tenderness to palpation. No palpable warmth or fluctuance. No edema. Ambulating with steady gait with walker. 2+ PT and DP pulses bilaterally. No calf tenderness bilaterally. Course Course Course Narrative: RME:?43 yo citizen of [place] speaking female here via EMS for eval of b/l knee pain s/p trip and fall ore feeder. was walking w/ walker when she tripped over her foot, falling forward onto both knees. xrays ordered Full HPI, ROS and PE to be performed by the primary ED provider. Reevaluation(s) Reevaluation #1: 1500-- xrays of bilateral knees do not exhibit fracture or effusion. Patient has remained stable throughout ED visit today. discussed results with patient. she is ambulating with steady gait using walker. Discussed worrisome signs and symptoms and when to return to the ED. All questions answered at this time. Patient is agreeable with disposition and stable for discharge. Medical Decision Making Medical Decision Making MDM Narrative: 43 year old female with pmhx significant for insulin-dependent diabetes, neuropathy, frequent falls, fibromyalgia, asthma, hypothyroidism, GERD, morbid obesity, migraines presents to the ED today via EMS with bilateral knee pain s/p mechanical fall occurring prior to arrival. Patient hypertensive, vitals otherwise WNL. Is nontoxic appearing in no acute distress. Sitting in a wheelchair. Has walker with her. On exam, bilateral knees without overlying deformity or skin changes. Full ROM intact with flexion and extension of both knees. No tenderness to palpation. No palpable warmth or fluctuance. No edema. Ambulating with steady gait with walker. 2+ PT and DP pulses bilaterally. No calf tenderness bilaterally. Differential diagnosis includes contusion, fracture, neuropathy. Low suspicion for dislocation, nv compromise, threat to limb, compartment syndrome, DVT. Plan for x-rays and re-evaluation. Differential Diagnosis Differential Diagnoses: The differential diagnosis associated with the presentation includes As above Admission/Observation Not indicated Independent Interpretation I performed an independent interpretation of an: Plain X-Ray Interpretation: X-ray of bilateral knees does not demonstrate acute fracture or joint effusion, agree with radiologist's interpretation. Radiology Impression Discussion of test interpretation with radiology: I have reviewed the radiologist's reading. Radiologist Impression: EXAMINATION: XR knee LT 2V, XR knee RT 2V CLINICAL INFORMATION: Reason for Exam fall onto knees COMPARISON: Prior x-ray November 2022 TECHNIQUE: Frontal and lateral views right and left knee. FINDINGS: BONES: No fracture or dislocation is present. JOINTS: Mild narrowing of joint spaces suggesting mild early DJD. There is no joint effusion on either side. SOFT TISSUE: Normal XR/XR knee LT 2V IMPRESSION: Mild bilateral tricompartment degenerative osteoarthritis. No fracture. No joint effusions. Independent Historian Clinical information obtained from an independent historian. History obtained from or confirmed by: EMS External Record Review External record reviewed: Inpatient record, Office record, Outpatient record, Prior outpatient labs, Prior outpatient radiology, Primary care record and Outside ED record Prescription Management I considered prescription management with: Pain Medication Chronic Conditions Patient?s care impacted by: Diabetes Social Determinants Patient?s care significantly limited by Social Determinants of Health including: Other Social Determinant of Health Discharge Plan Discharge Clinical Impression: Bilateral knee pain, Accident due to mechanical fall without injury Patient Disposition: Home, Self-Care Instructions: Knee Pain (ED), Fall Prevention (ED) Additional Instructions: The x-rays of both of your knees do not demonstrate acute fracture. You likely just have a contusion from falling. You may take Tylenol and ibuprofen as needed for pain/discomfort at home. Please follow-up with your primary care provider. If symptoms persist or worsen, please return to the ED. In the case of an emergency call 911. Prescriptions: New acetaminophen [Tylenol] 325 mg tablet 650 mg PO Q4H PRN (Reason: fever or pain) Qty: 30 0RF ibuprofen [Motrin IB] 200 mg capsule 600 mg PO Q4H PRN (Reason: fever or pain) Qty: 20 0RF No Action bupropion HCl 150 mg tablet extended release 24 hr 150 mg PO QAM Qty: 90 2RF cholecalciferol (vitamin D3) 50 mcg (2,000 unit) capsule 50 mcg PO QAM 90 Days Qty: 90 2RF trazodone 50 mg tablet 50 mg PO BEDTIME Qty: 90 2RF gabapentin 300 mg capsule 300 mg PO BEDTIME 90 Days Qty: 90 1RF levothyroxine 88 mcg tablet 88 mcg PO DAILY 90 Days Qty: 90 1RF loratadine [Allergy Relief (loratadine)] 10 mg tablet 10 mg PO DAILY 90 Days Qty: 90 1RF fluticasone propionate 50 mcg/actuation spray,suspension 2 spray intranasal ONCE Qty: 16 2RF cyclobenzaprine 10 mg tablet 10 mg PO BEDTIME Qty: 30 1RF Citrucel 500 mg tablet 500 mg PO BID Qty: 60 5RF polyethylene glycol 3350 [Miralax] 17 gram/dose powder 238 g PO ONCE PRN (Reason: laxative effect) 1 Days Qty: 238 0RF Rx Instructions: Take as directed by mouth the day before your procedure. docusate sodium 100 mg capsule 200 mg PO BEDTIME Qty: 60 5RF omeprazole 20 mg capsule,delayed release(DR/EC) 20 mg PO QAM Qty: 30 1RF tramadol 50 mg tablet 50 mg PO Q6H PRN (Reason: pain) Qty: 30 0RF riboflavin (vitamin B2) 100 mg tablet 200 mg PO BID acetaminophen 650 mg tablet extended release 650 mg PO Q8H PRN (Reason: Pain) propranolol 20 mg tablet 20 mg PO QPM albuterol sulfate 90 mcg/actuation HFA aerosol inhaler 2 puff inhalation Q6H 30 Days Qty: 8.5 1RF Emgality Pen 120 mg/mL pen injector subcut clotrimazole 1 % cream 1 appl topical BID 28 Days Qty: 28 0RF Rx Instructions: apply to both feet twice daily for 4 weeks chlorthalidone 25 mg tablet 25 mg PO DAILY clotrimazole-betamethasone 1-0.05 % cream 1 appl topical BID 5 Days Qty: 45 0RF Rx Instructions: Apply to the affected area ibuprofen 600 mg tablet 600 mg PO Q8H PRN (Reason: pain) Qty: 20 0RF bisacodyl [Dulcolax (bisacodyl)] 5 mg tablet,delayed release (DR/EC) 20 mg PO ONCE 1 Days Qty: 4 0RF Rx Instructions: Take 4 tablets by mouth at 12:00pm the day before your procedure. atorvastatin 10 mg tablet 10 mg PO BEDTIME hydrocortisone 1 % cream topical DAILY PRN hydrocortisone [Proctozone-HC] 2.5 % cream with perineal applicator 1 appl IN BID PRN (Reason: hemorrhoids) Qty: 30 3RF Rx Instructions: apply IN BID prn lisinopril 10 mg tablet 10 mg PO DAILY ibuprofen 800 mg tablet 800 mg PO TID metformin 500 mg tablet extended release 24 hr 1,000 mg PO BID Ozempic 0.25 mg or 0.5 mg (2 mg/3 mL) pen injector 0.25 mg subcut QWEEK Rx Instructions: for 4 weeks medroxyprogesterone [Provera] 10 mg tablet 10 mg PO daily 5 Days Qty: 5 0RF Referrals: [facility] [Provider Group] [facility] [place] Family [facility] [Provider Group] [facility] [place] [facility] [Provider Group] [facility] [place] [facility] [Provider Group] Interventions: ED Discharge Assessment Last Done: 10/06/23 15:02 Discharge Date/Time: 10/06/23 15:04 Print Language: Setswana
--- NOTE | 2023-10-06 15:01 | PC.NURSE ---
Eval by DANNA in triage, cleared for dc home.
[2023-10-06 15:02] VITALS: BP 118/98; PULSE 84; RESP 18; TEMP 36.6; O2SAT 98
== END 2023-10-06 15:04 | disposition home or self-care (01) ==
LOC: HO.ED 15:04
PROVIDERS: Emergency Provider Emergency Medicine; PCP Family Medicine
DX: S89.91XA Unspecified injury of right lower leg, initial encounter (principal); S89.92XA Unspecified injury of left lower leg, initial encounter; W01.10XA Fall on same level from slipping, tripping and stumbling with subsequent striking against unspecified object, initial encounter; Y93.9 Activity, unspecified; Y92.9 Unspecified place or not applicable; Y99.8 Other external cause status; Z79.899 Other long term (current) drug therapy
CPT/HCPCS: 73560; 99282; 99283

== ENCOUNTER 2023-12-13 16:00 | Outpatient (AMB) | payer OTHER, SELFPAY ==
--- NOTE | 2023-12-13 16:00 | MHC.OFFVIS ---
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 Services: Hemp Fiber Taker Off Present Hemp Fiber Taker Off Name: Itzel SPANN Information Interpreted: non-clinical & clinical Allergies metronidazole [From FLAGYL] Allergy (Severe, Verified 12/13/23 16:02) CHEST PAIN TO LEFT SHOULDER, bacitracin [BACITRACIN] Allergy (Intermediate, Verified 12/13/23 16:02) BURNING, ITCHING risperidone [From Risperdal] Allergy (Intermediate, Verified 12/13/23 16:02) high level prolactin aripiprazole [From Abilify] Allergy (Mild, Verified 12/13/23 16:02) ITCHING iopromide [From Ultravist] Allergy (Mild, Verified 12/13/23 16:02) DIZZY, DRY THROAT AND MOUTH Vistra 650 Allergy (Intermediate, Uncoded 12/13/23 16:02) attention issues HPI Comments Details: The patient scheduled tele health visit for follow-up. Took Provera followed by positivel bleeding no additional complaints PFSH Medical History Foot drop, left Constipation Mass of left foot IBS (irritable colon syndrome) Morbid obesity with BMI of 45.0-49.9, adult GERD with esophagitis DMII (diabetes mellitus, type 2) Fibroadenoma of breast Fibromyalgia Hypothyroid PCOS (polycystic ovarian syndrome) PTSD (post-traumatic stress disorder) Surgical History History of excision of mass (08/07/22) History of esophagogastroduodenoscopy (EGD) History of D&C History of hand surgery History of section History of lumpectomy of right breast History of appendectomy Hx of appendectomy Family History Father Acral gangrene Mother Cancer Father Diabetes Gangrene Mother Diabetes Hypertension Thyroid disease Cervical cancer Dementia Son In good health Maternal Grandmother Breast cancer Sister Breast cancer Other Mental health disorder Social History Household Members: Children Housing: Apartment Alcohol intake: never Patient Tobacco Use Status: Never used Tobacco Current occupational status: disabled Sexual orientation: Straight/Heterosexual Gender identity: Female Female Reproductive History Menstrual Age of Menarche: 10 Review of Systems Const All systems reviewed & are unremarkable except as noted in HPI and below Reports as per HPI and Reports no additional complaints GI Reports no additional complaints Reports no additional complaints Telehealth Telehealth Telehealth Platform: Telephone Location of provider rendering services: practice address Location of patient: address on file Patient Identification confirmed using: Name, : Yes Telehealth method: voice only Patient verbally consented to treatment: Yes Patient verbally consented to billing insurance company: Yes Patient informed of any privacy concerns related to visit: Yes Assessment & Plan Assessment & Plan (1) Amenorrhea: Comment: Positive progesterone withdrawal Code(s): N91.2 - Amenorrhea, unspecified Category: Medical Plan: Instructed the patient to have her TSH, hCG, prolactin done and schedule a follow-up appointment within 2 weeks. All questions answered, the patient verbalized understanding. I spent a total of 20 minutes reviewing the chart, talking to the patient via phone and documenting in the medical record. Coding Level of Care Code Tele Est Pt Level 1 (33917) Diagnoses Amenorrhea N91.2
== END 2023-12-13 16:38 ==
LOC: HO.HWS 16:00
PROVIDERS: PCP Family Medicine; Visit Provider Obstetrics & Gynecology
DX: N91.2 Amenorrhea, unspecified (principal)
CPT/HCPCS: 99211

== ENCOUNTER → 2023-12-13 16:00 | Outpatient (BNVA) | payer OTHER, SELFPAY | PROVIDERS: PCP Family Medicine; Visit Provider Obstetrics & Gynecology ==

== ENCOUNTER 2023-12-31 14:28 | Outpatient (REF) | payer OTHER, SELFPAY ==
[2023-12-31 16:12] LABS: Anion Gap 12 (12-20); Blood Urea Nitrogen 18 mg/dL (9-16); Calcium 10.3 mg/dL (8.4-10.2); Carbon Dioxide 23 mmol/L (22-29); Chloride 105 mmol/L (96-108); Estimated Glomerular Filt Rate > 60; Glucose Random 87 mg/dL (60-115); Potassium 3.9 mmol/L (3.3-5.1); Sodium 136 mmol/L (135-145)
[2023-12-31 16:33] LABS: HCG Quantitative < 2 mIU/mL; TSH reflex Free T4 3.16 uIU/mL (0.32-4.0)
[2024-01-02 02:24] LABS: Prolactin 7.5 ng/mL
[2024-01-05 15:40] LABS: VITAMIN D (1,25 OH) D3 59 pg/mL; Vit D (1,25-Dihydroxy) Total 59 pg/mL (18-72); Vitamin D (1,25 OH) D2 <8 pg/mL
[2024-01-06 08:44] LABS: Angiotensin Converting Enzyme 16.7 U/L (9-67)
== END 2023-12-31 14:29 | disposition home or self-care (01) ==
LOC: HO.LAB 14:28
PROVIDERS: Nurse Practitioner Family; PCP Family Medicine; Visit Provider Obstetrics & Gynecology
DX: I10 Essential (primary) hypertension (principal); M21.372 Foot drop, left foot; N91.2 Amenorrhea, unspecified; R22.42 Localized swelling, mass and lump, left lower limb
CPT/HCPCS: 36415; 80048; 82164; 82652; 84146; 84443; 84702

== ENCOUNTER 2024-01-04 12:04 | Outpatient (AMB) | payer OTHER, SELFPAY ==
--- NOTE | 2024-01-04 12:04 | A.OFFVIS_ITS ---
Intake Visit Reasons: labs results Allergies metronidazole [From FLAGYL] Allergy (Severe, Verified 12/13/23 16:02) CHEST PAIN TO LEFT SHOULDER, bacitracin [BACITRACIN] Allergy (Intermediate, Verified 12/13/23 16:02) BURNING, ITCHING risperidone [From Risperdal] Allergy (Intermediate, Verified 12/13/23 16:02) high level prolactin aripiprazole [From Abilify] Allergy (Mild, Verified 12/13/23 16:02) ITCHING iopromide [From Ultravist] Allergy (Mild, Verified 12/13/23 16:02) DIZZY, DRY THROAT AND MOUTH [facility] [address] Allergy (Intermediate, Uncoded 12/13/23 16:02) attention issues HPI Comments Details: The patient is scheduled tele health visit or follow-up. Had amenorrhea, urine test was negative, progesterone withdrawal test was positive for bleeding, TSH, prolactin, hCG were negative PFSH Medical History Foot drop, left Constipation Mass of left foot IBS (irritable colon syndrome) Morbid obesity with BMI of 45.0-49.9, adult GERD with esophagitis DMII (diabetes mellitus, type 2) Fibroadenoma of breast Fibromyalgia Hypothyroid PCOS (polycystic ovarian syndrome) PTSD (post-traumatic stress disorder) Surgical History History of excision of mass (08/07/22) History of esophagogastroduodenoscopy (EGD) History of D&C History of hand surgery History of section History of lumpectomy of right breast History of appendectomy Hx of appendectomy Family History Father Acral gangrene Mother Cancer Father Diabetes Gangrene Mother Diabetes Hypertension Thyroid disease Cervical cancer Dementia Son In good health Maternal Grandmother Breast cancer Sister Breast cancer Other Mental health disorder Social History Household Members: Children Housing: Apartment Alcohol intake: never Patient Tobacco Use Status: Never used Tobacco Current occupational status: disabled Sexual orientation: Straight/Heterosexual Gender identity: Female Female Reproductive History Menstrual Age of Menarche: 10 Review of Systems Const All systems reviewed & are unremarkable except as noted in HPI and below Reports as per HPI and Reports no additional complaints GI Reports no additional complaints Reports no additional complaints Telehealth Telehealth Telehealth Platform: Telephone Location of provider rendering services: practice address Location of patient: address on file Patient Identification confirmed using: Name, : Yes Telehealth method: video Patient verbally consented to treatment: Yes Patient verbally consented to billing insurance company: Yes Patient informed of any privacy concerns related to visit: Yes Assessment & Plan Assessment & Plan (1) Amenorrhea: Comment: Positive progesterone withdrawal Code(s): N91.2 - Amenorrhea, unspecified Category: Medical Plan: Discussed with the patient the results for blood work normal TSH, hCG and prolactin with positive withdrawal test, the diagnosis being anovulatory amenorrhea, recommended the control pills or Mirena IUD or cyclic Provera. All pros and cons, risks and benefits of each were discussed with the patient decided to go ahead with cyclic Prometrium, so a more detailed discussion re: Progesterone treatment including mechanism of action, benefits (regular menses, endometrial protection form unopposed estrogen and reduction in the risk of endometrial hyperplasia and/or cancer ...), risks (Thrombosis, mood changes, weight gain, breast soreness, ? increased breast ca, others). Instructions were given to use a back- up method for contraception since this is not a method control, take the medication 1 tablet daily, 200 mg p.o., starting day 15- 24 and to schedule a 3 months follow-up appointment; patient verbalized understanding and agreed with the plan. I spent a total of 20 minutes reviewing the chart, talking to the patient via video and documenting in the medical record. Medications: New progesterone micronized (Prometrium) Take the pill 1 tablet a day cyclically every month from day 15-24 day 1 being the 1st day of next menstrual cycle 200 mg PO BEDTIME 10 days 30 caps 0RF Discontinued medroxyprogesterone (Provera) Discontinued Reason: Doctor's Order 10 mg PO daily 5 days 5 tabs 0RF Coding Level of Care Code Tele Est Pt Level 1 (35402) Diagnoses Amenorrhea N91.2
== END 2024-01-04 12:31 | disposition home or self-care (01) ==
LOC: HO.HWS 12:04
PROVIDERS: PCP Family Medicine; Visit Provider Obstetrics & Gynecology
DX: N91.2 Amenorrhea, unspecified (principal)
CPT/HCPCS: 99211

== ENCOUNTER → 2024-01-04 12:04 | Outpatient (BNVA) | payer OTHER, SELFPAY | PROVIDERS: PCP Family Medicine; Visit Provider Obstetrics & Gynecology ==

== ENCOUNTER 2024-02-23 16:44 | Emergency (ER) | payer OTHER, SELFPAY ==
[2024-02-23 16:56] VITALS: BP 117/62; BP 134/64; PULSE 78; PULSE 82; RESP 16; TEMP 36.8; O2SAT 98; O2SAT 99; BMI 41.2
[2024-02-23 16:58] VITALS: BP 117/62; PULSE 76; RESP 18; TEMP 36.8; O2SAT 99
[2024-02-23 17:02] VITALS: BP 117/62; PULSE 76; RESP 18; TEMP 36.8; O2SAT 99
--- NOTE | 2024-02-23 17:06 | ED.GENADULT ---
HPI - General Adult General Chief complaint: Fall Stated complaint: Fall from standing d/t weakness in legs, Time Seen by Provider: 02/23/24 17:05 Source: patient, EMS and RN notes reviewed Mode of arrival: EMS Limitations: no limitations History of Present Illness ED Provider: michael HPI narrative: Patient is a 44-year-old female with past medical history of fibromyalgia, chronic constipation, irritable bowel syndrome, GERD with esophagitis, pituitary adenoma, diabetes type 2, diabetic neuropathy, insomnia and hypothyroidism presenting to the emergency department for weakness after a controlled fall prior to arrival. She states that she has had lower extremity weakness for several months for which she has seen her PCP. She has been to physical therapy without change. Ambulates with a walker at baseline. Today was at the gym for her son's swim lesson, had to walk further than anticipated as there was no ramp to the pool for her walker, so she had to walk to the pool from outside. As she was exiting the gym she could feel her legs giving out so she slowly lowered herself to the ground. She denies head strike or loss of consciousness. She is not anticoagulated. She denies any new injuries from the fall but was transported to the ED as she was unable to lift herself up from the ground. She does endorse generalized weakness over the past few days, since she began menstruating. Was prescribed progesterone by Dr. Bhatia for anovulatory amenorrhea, but states she has not been taking it, and has still been having vaginal bleeding. Denies fevers. Denies URI symptoms. States that her PCP has ordered an MRI to assess her lower extremity weakness and she has received approval from insurance, but has not scheduled the test yet. Denies saddle anesthesia, bowel or bladder incontinence. Rates chronic low back pain at a 6. Denies urinary symptoms. MD complaint: weakness Onset (ago): month(s) Location: lower extremity Treatments prior to arrival: other Related Data Home Medications ?Medication ?Instructions ?Recorded ?Confirmed galcanezumab-gnlm 120 mg/mL 120 mg subcut QMONTH 05/08/20 10/19/23 subcutaneous pen injector (Emgality Pen) riboflavin (vitamin B2) 100 mg 200 mg PO BID 05/29/20 10/19/23 tablet propranolol 20 mg tablet 20 mg PO QPM 12/05/20 10/19/23 atorvastatin 10 mg tablet 10 mg PO BEDTIME 07/23/21 10/19/23 chlorthalidone 25 mg tablet 25 mg PO DAILY 07/30/21 10/19/23 hydrocortisone 1 % topical cream appl topical DAILY PRN 01/28/22 07/02/22 semaglutide 0.25 mg or 0.5 mg (2 0.25 mg subcut QWEEK 06/24/23 10/19/23 mg/3 mL) subcutaneous pen injector (Ozempic) lisinopril 10 mg tablet 10 mg PO DAILY 07/30/23 10/19/23 metformin 500 mg tablet,extended 1,000 mg PO BID 07/30/23 10/19/23 release 24 hr fluticasone propionate 50 2 spray intranasal DAILY 10/19/23 10/19/23 mcg/actuation nasal spray,suspension Previous Rx's ?Medication ?Instructions ?Recorded albuterol sulfate 90 mcg/actuation 2 puff inhalation Q6H shortness of 12/05/20 aerosol inhaler breath or wheezing 30 days #8.5 grams bupropion HCl 150 mg 24 hr tablet, 150 mg PO QAM #90 tabs 02/26/21 extended release cholecalciferol (vitamin D3) 50 50 mcg PO QAM 90 days #90 caps 02/26/21 mcg (2,000 unit) capsule trazodone 50 mg tablet 50 mg PO BEDTIME #90 tabs 02/26/21 gabapentin 300 mg capsule 300 mg PO BEDTIME 90 days #90 caps 06/12/21 levothyroxine 88 mcg tablet 88 mcg PO DAILY 90 days #90 tabs 08/30/21 loratadine 10 mg tablet (Allergy 10 mg PO DAILY 90 days #90 tabs 09/22/21 Relief (loratadine)) clotrimazole-betamethasone 1 1 appl topical BID 5 days #45 grams 12/01/21 %-0.05 % topical cream hydrocortisone 2.5 % topical cream 1 appl AL BID PRN hemorrhoids #30 01/28/22 with perineal applicator grams (Proctozone-HC) ibuprofen 600 mg tablet 600 mg PO Q8H PRN pain #20 tabs 05/08/22 cyclobenzaprine 10 mg tablet 10 mg PO BEDTIME #30 tabs 07/06/22 tramadol 50 mg tablet 50 mg PO Q6H PRN pain #30 tabs 08/07/22 methylcellulose (laxative) 500 mg 500 mg PO BID #60 tabs 01/05/23 tablet (Citrucel) bisacodyl 5 mg tablet,delayed 20 mg (4 x 5 mg) PO ONCE 03/11/23 release (Dulcolax (bisacodyl)) colonoscopy prep 1 day #4 tabs polyethylene glycol 3350 17 238 g PO ONCE PRN laxative effect 05/12/23 gram/dose oral powder (Miralax) 1 day #238 grams acetaminophen 325 mg tablet 650 mg (2 x 325 mg) PO Q4H PRN 10/06/23 (Tylenol) fever or pain #30 tabs docusate sodium 100 mg capsule 200 mg (2 x 100 mg) PO BEDTIME #60 12/15/23 (Stool Softener) caps progesterone micronized 200 mg 200 mg PO BEDTIME 10 days #30 caps 01/04/24 capsule (Prometrium) omeprazole 20 mg capsule,delayed 20 mg PO QAM #30 caps 01/10/24 release Allergies Allergy/AdvReac Type Severity Reaction Status Date / Time metronidazole [From FLAGYL] Allergy Severe CHEST PAIN Verified 02/23/24 16:58 TO LEFT SHOULDER, bacitracin [BACITRACIN] Allergy Intermediate BURNING, Verified 02/23/24 16:58 ITCHING risperidone [From Risperdal] Allergy Intermediate high level Verified 02/23/24 16:58 prolactin aripiprazole [From Abilify] Allergy Mild ITCHING Verified 02/23/24 16:58 iopromide [From Ultravist] Allergy Mild DIZZY, DRY Verified 02/23/24 16:58 THROAT AND MOUTH [facility] [address] Allergy Intermediate attention Uncoded 02/23/24 16:58 issues Review of Systems Review of Systems: As per HPI. Yes all other systems are reviewed and are negative Constitutional: Constitutional: Reports as per HPI [facility] Past Medical History Medical History Foot drop, left Constipation Mass of left foot IBS (irritable colon syndrome) Morbid obesity with BMI of 45.0-49.9, adult GERD with esophagitis DMII (diabetes mellitus, type 2) Fibroadenoma of breast Fibromyalgia Hypothyroid PCOS (polycystic ovarian syndrome) PTSD (post-traumatic stress disorder) Surgical History History of excision of mass (08/07/22) History of esophagogastroduodenoscopy (EGD) History of D&C History of hand surgery History of section History of lumpectomy of right breast History of appendectomy Hx of appendectomy Family History Family History Father Acral gangrene Mother Cancer Father Diabetes Gangrene Mother Diabetes Hypertension Thyroid disease Cervical cancer Dementia Son In good health Maternal Grandmother Breast cancer Sister Breast cancer Other Mental health disorder Social History Social History Household Members: Children Housing: Apartment Alcohol intake: never Patient Tobacco Use Status: Never used Tobacco Smoked in Last 30 Days: No Use of substances other than those prescribed or required for medical reasons: No Advance Directives: No Advance Directives Information Provided: No Do you have a plan to hurt others: No Plan Patient : No Current occupational status: disabled Sexual orientation: Straight/Heterosexual Gender identity: Female Physical Exam ED Vital Signs: Vital Signs - 24 hr 02/23/24 16:56 02/23/24 16:58 02/23/24 17:02 Temperature 98.2 F 98.2 F 98.2 F Pulse Rate 78 76 76 Respiratory Rate 16 18 18 Blood Pressure 117/62 117/62 117/62 Pulse Oximetry 98 99 99 Oxygen Delivery Method Room Air Room Air 02/23/24 20:29 Temperature 98.2 F Pulse Rate 76 Respiratory Rate 18 Blood Pressure 117/62 Pulse Oximetry 99 Oxygen Delivery Method BMI result Body Mass Index 41.2 Vital signs have been reviewed and appear to be correct. Blood pressure normal. Heart rate normal. Respiratory rate normal. Temperature normal. Oxygen saturation normal. Const General: cooperative, healthy appearing and no acute distress Orientation/consciousness: oriented to person, oriented to place, oriented to time and patient oriented x3 Limitations: ambulation with walker HENMT Head: Yes normocephalic and Yes atraumatic Ears: external ears normal General nose exam: Normal external nose present Face and sinus: Yes face symmetric Mouth: oropharynx normal and moist mucous membranes Throat: Yes uvula midline Eyes Pupils: Equal, round and reactive pupils present Neck Neck: Yes normal visual inspection and Yes supple Resp Effort & Inspection: normal respiratory effort and able to speak in complete sentences Auscultation: clear to auscultation bilaterally Cardio Rate: regular rate Rhythm: regular rhythm Heart sounds: S1 normal heart sound present and S2 normal heart sound present GI Palpation (GI): Soft to palpation and nontender Auscultation: normoactive bowel sounds General: Yes no CVA tenderness Back/Spine/Pelvis Back: no CVA tenderness Cervical Spine: normal cervical lordosis, cervical ROM normal, No Cervical spine tenderness and No step off deformity Thoracic/Lumbar Spine: thoracic and lumbar spine normal to inspection, thoraco-lumbar ROM normal, No pain with thoraco-lumbar ROM, No thoracic spinal tenderness and No lumbar spinal tenderness Pelvis: no pain with anterior-posterior compression and no pain with lateral compression Skin General skin exam: elasticity normal and turgor normal Neuro General: oriented to person, oriented to place, oriented to time, patient oriented x3, moves all extremities, Normal light touch and pain sensation, no focal motor deficits, CN's II-XI intact bilaterally and deep tendon reflexes 2+ bilaterally Cranial nerves: Yes Equal, round and reactive pupils present Cognition (Neuro): normal cognition Extrem General: Yes full ROM, Yes no pedal edema and Yes no calf tenderness Psych Mental Status: mental status grossly normal Affect: normal affect Thought process: Normal thought process present Course Reevaluation(s) Reevaluation #1: Patient was given to me pending labs, labs returned, no leukocytosis, stable H&H, chemistry within normal limits. Beta quant less than 2. Discussed workup with patient. She will follow-up with her PCP in regards to MRI. She is feeling well and would like to be discharged home. Patient is safe for discharge. Medical Decision Making Medical Decision Making MDM Narrative: Patient is a 44-year-old female with past medical history of fibromyalgia, chronic constipation, irritable bowel syndrome, GERD with esophagitis, pituitary adenoma, diabetes type 2, diabetic neuropathy, insomnia and hypothyroidism presenting to the emergency department for weakness after a controlled fall prior to arrival. On exam patient is awake, A+Ox3, VS WNL, afebrile, normal neurological exam without focal deficits, physical exam findings as above. Given reported symptoms and physical exam findings, initial differential includes anemia, electrolyte abnormality, chronic back pain. Do not feel imaging is indicated at this time as patient reports weakness has been chronic for months and patient denies any new injuries from fall today. No red flag findings on exam concerning for malignancy/mass, SEA, cauda equina/cord compression. Patient signed out to JOSE Rodríguez pending labs to assess for severe anemia or significant electroylte abnormalities. In the absence of these findings, feel patient will be stable for discharge home as her weakness has been chronic for many months. Differential Diagnosis Differential Diagnoses: The differential diagnosis associated with the presentation includes As per [facility] Lab Data 02/23/24 18:40 02/23/24 18:40 Labs: Lab Results 02/23/24 Range/Units 18:40 WBC 10.3 (4.8-10.8) X10*3/uL RBC 4.14 L (4.20-5.50) X10*6/uL Hgb 11.4 L (12.0-16.0) g/dl Hct 33.3 L (37.0-47.0) % MCV 80.4 (80.0-98.0) fL MCH 27.5 (27.0-33.0) pg MCHC 34.2 (31.0-35.0) g/dl RDW 13.3 (11.0-16.0) % Plt Count 301 (160-400) X10*3/uL MPV 9.5 (9.4-12.3) fL Immature Gran % (Auto) 0.4 (0.0-0.4) % Neut % (Auto) 71.6 (45-73) % Lymph % (Auto) 21.5 (20-40) % [place] % (Auto) 4.5 (2-11) % Eos % (Auto) 1.5 (0-4) % Baso % (Auto) 0.5 (0-2) % Lymph # (Auto) 2.2 (1.2-4.9) X10*3/uL [place] # (Auto) 0.5 (0.1-1.2) X10*3/uL Eos # (Auto) 0.2 (0.0-0.4) X10*3/uL Baso # (Auto) 0.1 (0.0-0.2) X10*3/uL Abs Immat Gran (auto) 0.04 H (0.00-0.03) X10*3/uL Absolute Neuts (auto) 7.4 (2.0-8.3) x10*3/uL Absolute Nucleated RBC 0.000 (0.0-0.012) X10*3/uL Nucleated RBC % (auto) 0.0 (0.0-0.2) /100WBC Sodium 139 (135-145) mmol/L Potassium 4.2 (3.3-5.1) mmol/L Chloride 105 (96-108) mmol/L Carbon Dioxide 25 (22-29) mmol/L Anion Gap 13 (12-20) BUN 15 (9-16) mg/dL Creatinine 0.61 (0.5-1.4) mg/dL Estim Creat Clear Calc 138.9 Estimated GFR > 60 Random Glucose 90 (60-115) mg/dL Calcium 9.8 (8.4-10.2) mg/dL Total Bilirubin 0.3 (0.0-1.0) mg/dL AST 31 (5-31) U/L ALT 28 (0-31) U/L Alkaline Phosphatase 69 (39-117) U/L Total Protein 7.9 (6.5-8.0) g/dL Albumin 3.9 (3.5-5.0) g/dL Beta HCG, Quant < 2 mIU/mL External Record Review External record reviewed: Inpatient record, Office record and Outpatient record Discharge Plan Discharge Clinical Impression: Bilateral leg weakness Patient Disposition: Home, Self-Care Instructions: Weakness (ED) Additional Instructions: You were evaluated in the emergency department today for lower extremity weakness. Your evaluation did not reveal evidence of conditions requiring emergent medical treatment at this time. We recommend that you follow-up with your PCP to schedule your MRI. Return to the emergency department if you develop increasing pain, fever, loss of bowel or bladder control or any other concerning symptoms. Prescriptions: No Action bupropion HCl 150 mg tablet extended release 24 hr 150 mg PO QAM Qty: 90 2RF cholecalciferol (vitamin D3) 50 mcg (2,000 unit) capsule 50 mcg PO QAM 90 Days Qty: 90 2RF trazodone 50 mg tablet 50 mg PO BEDTIME Qty: 90 2RF gabapentin 300 mg capsule 300 mg PO BEDTIME 90 Days Qty: 90 1RF levothyroxine 88 mcg tablet 88 mcg PO DAILY 90 Days Qty: 90 1RF loratadine [Allergy Relief (loratadine)] 10 mg tablet 10 mg PO DAILY 90 Days Qty: 90 1RF cyclobenzaprine 10 mg tablet 10 mg PO BEDTIME Qty: 30 1RF Citrucel 500 mg tablet 500 mg PO BID Qty: 60 5RF polyethylene glycol 3350 [Miralax] 17 gram/dose powder 238 g PO ONCE PRN (Reason: laxative effect) 1 Days Qty: 238 0RF Rx Instructions: Take as directed by mouth the day before your procedure. docusate sodium [Stool Softener] 100 mg capsule 200 mg PO BEDTIME Qty: 60 5RF omeprazole 20 mg capsule,delayed release(DR/EC) 20 mg PO QAM Qty: 30 1RF tramadol 50 mg tablet 50 mg PO Q6H PRN (Reason: pain) Qty: 30 0RF fluticasone propionate 50 mcg/actuation spray,suspension 2 spray intranasal DAILY acetaminophen [Tylenol] 325 mg tablet 650 mg PO Q4H PRN (Reason: fever or pain) Qty: 30 0RF riboflavin (vitamin B2) 100 mg tablet 200 mg PO BID propranolol 20 mg tablet 20 mg PO QPM albuterol sulfate 90 mcg/actuation HFA aerosol inhaler 2 puff inhalation Q6H 30 Days Qty: 8.5 1RF Emgality Pen 120 mg/mL pen injector 120 mg subcut QMONTH chlorthalidone 25 mg tablet 25 mg PO DAILY clotrimazole-betamethasone 1-0.05 % cream 1 appl topical BID 5 Days Qty: 45 0RF Rx Instructions: Apply to the affected area ibuprofen 600 mg tablet 600 mg PO Q8H PRN (Reason: pain) Qty: 20 0RF bisacodyl [Dulcolax (bisacodyl)] 5 mg tablet,delayed release (DR/EC) 20 mg PO ONCE 1 Days Qty: 4 0RF Rx Instructions: Take 4 tablets by mouth at 12:00pm the day before your procedure. atorvastatin 10 mg tablet 10 mg PO BEDTIME hydrocortisone 1 % cream topical DAILY PRN hydrocortisone [Proctozone-HC] 2.5 % cream with perineal applicator 1 appl AL BID PRN (Reason: hemorrhoids) Qty: 30 3RF Rx Instructions: apply AL BID prn lisinopril 10 mg tablet 10 mg PO DAILY metformin 500 mg tablet extended release 24 hr 1,000 mg PO BID Ozempic 0.25 mg or 0.5 mg (2 mg/3 mL) pen injector 0.25 mg subcut QWEEK Rx Instructions: for 4 weeks progesterone micronized [Prometrium] 200 mg capsule 200 mg PO BEDTIME 10 Days Qty: 30 0RF Rx Instructions: Take the pill 1 tablet a day cyclically every month from day 15-24 day 1 being the 1st day of next menstrual cycle Interventions: ED Discharge Assessment Last Done: 02/23/24 20:29 Discharge Date/Time: 02/23/24 20:30 Print Language: Tunisian
[2024-02-23 18:43] LABS: MANUAL DIFF FLAG NO
[2024-02-23 18:51] LABS: Basophils Absolute Auto 0.1 X10*3/uL (0.0-0.2); Basophils Percent Auto 0.5 % (0-2); Eosinophils Absolute Auto 0.2 X10*3/uL (0.0-0.4); Eosinophils Percent Auto 1.5 % (0-4); Hematocrit 33.3 % (37.0-47.0); Hemoglobin 11.4 g/dl (12.0-16.0); Imm Gran Abs Auto 0.04 X10*3/uL (0.00-0.03); Imm Gran Pct Auto 0.4 % (0.0-0.4); Lymphocytes Absolute Auto 2.2 X10*3/uL (1.2-4.9); Lymphocytes Percent Auto 21.5 % (20-40); Mean Corpuscular HGB Conc 34.2 g/dl (31.0-35.0); Mean Corpuscular Hemoglobin 27.5 pg (27.0-33.0); Mean Corpuscular Volume 80.4 fL (80.0-98.0); Mean Platelet Volume 9.5 fL (9.4-12.3); Monocytes Absolute Auto 0.5 X10*3/uL (0.1-1.2); Monocytes Percent Auto 4.5 % (2-11); Neutrophils Absolute Auto 7.4 x10*3/uL (2.0-8.3); Neutrophils Percent Auto 71.6 % (45-73); Platelet Count 301 X10*3/uL (160-400); Red Blood Count 4.14 X10*6/uL (4.20-5.50); Red Cell Distribution Width 13.3 % (11.0-16.0); White Blood Count 10.3 X10*3/uL (4.8-10.8)
[2024-02-23 18:57] LABS: Alanine Aminotransferase 28 U/L (0-31); Albumin Level 3.9 g/dL (3.5-5.0); Alkaline Phosphatase 69 U/L (39-117); Anion Gap 13 (12-20); Aspartate Amino Transferase 31 U/L (5-31); Bilirubin Total 0.3 mg/dL (0.0-1.0); Blood Urea Nitrogen 15 mg/dL (9-16); Calcium 9.8 mg/dL (8.4-10.2); Carbon Dioxide 25 mmol/L (22-29); Chloride 105 mmol/L (96-108); Creatinine Clr Calc Pharmacy 138.9; Estimated Glomerular Filt Rate > 60; Glucose Random 90 mg/dL (60-115); Potassium 4.2 mmol/L (3.3-5.1); Sodium 139 mmol/L (135-145); Total Protein 7.9 g/dL (6.5-8.0)
[2024-02-23 19:20] LABS: HCG Quantitative < 2 mIU/mL
[2024-02-23 20:29] VITALS: BP 117/62; PULSE 76; RESP 18; TEMP 36.8; O2SAT 99
== END 2024-02-23 20:30 | disposition home or self-care (01) ==
PROVIDERS: Physician Assistant Medical; Registered Nurse Emergency; Emergency Provider Emergency Medicine; PCP Family Medicine
DX: R53.1 Weakness (principal); K59.00 Constipation, unspecified; K58.9 Irritable bowel syndrome, unspecified; K21.9 Gastro-esophageal reflux disease without esophagitis; E11.9 Type 2 diabetes mellitus without complications; E03.9 Hypothyroidism, unspecified; N91.2 Amenorrhea, unspecified; N93.9 Abnormal uterine and vaginal bleeding, unspecified; Z91.81 History of falling
CPT/HCPCS: 36415; 80053; 84702; 85025; 99283; 99284

== ENCOUNTER → 2024-03-17 10:07 | Outpatient (BNV) | payer OTHER, SELFPAY | PROVIDERS: PCP Family Medicine; Visit Provider Radiology Diagnostic Radiology | DX: M54.50 Low back pain, unspecified (principal) | CPT/HCPCS: 72148 ==

== ENCOUNTER 2024-03-17 10:11 | Outpatient (REF) | payer OTHER, SELFPAY ==
--- NOTE | ~2024-03-17 | MR_ITS ---
EXAMINATION: MR LUMBAR SPINE WITHOUT CONTRAST CLINICAL INFORMATION: Low back pain. Right lower extremity weakness. COMPARISON: None available. TECHNIQUE: MRI of the lumbar spine was obtained using routine sequences without contrast. FINDINGS: Last rib-bearing vertebra labeled T12. No bone marrow STIR signal abnormality. Multilevel marginal osteophyte formation and disc desiccation. There is a subtle grade 1 retrolisthesis L3-4. Conus medullaris ends at pedicle of L1 with normal signal. T12-L1: No compression upon neural elements. L1-2: No compression of neural elements. Bilateral facet joint hypertrophy. Broad-based bulging. L2-3: Broad-based disc bulging. Facet joint and ligamentum flavum hypertrophy. No compression upon neural elements. L3-4: Broad-based disc bulging. Facet joint and ligamentum flavum hypertrophy. Reduced AP diameter of the thecal sac and neuroforamina. L4-5: Broad-based disc bulging. Facet joint and ligamentum flavum hypertrophy. Reduced AP diameter of the thecal sac and the neural foramina. L5-S1: Broad-based disc bulging. Facet joint hypertrophy. No compression upon elements. No prevertebral compartment hematoma, mass or fluid collection. MR/MR lumbar spine wo con IMPRESSION: Multilevel lumbar spondylosis more conspicuous at L3-4 and L4-5 likely encroaching the exiting nerve roots. Electronically signed by: Darell Patrick MD 04/18/2024 10:46 AM EDT
== END 2024-03-17 10:12 | disposition home or self-care (01) ==
LOC: HO.MRI 10:11
PROVIDERS: PCP Family Medicine; Visit Provider Student in an Organized Health Care Education/Training Program
DX: R29.898 Other symptoms and signs involving the musculoskeletal system (principal)
CPT/HCPCS: 72148

== ENCOUNTER 2024-07-20 20:41 | Emergency (ER) | payer OTHER, SELFPAY ==
--- NOTE | ~2024-07-20 | XR_ITS ---
CLINICAL HISTORY: pain 2 view right knee Comparison: 10/06/2023 Findings: Bones intact. No dislocations. No significant arthritic change or erosions. No joint effusion. No radiopaque foreign body. IMPRESSION: 1. No acute findings. This document has been electronically signed by: Micheal Ibarra MD on 07/20/2024 22:42:34
--- NOTE | ~2024-07-20 | XR_ITS ---
CLINICAL HISTORY: pain 2 view left knee Comparison: 10/06/2023 Findings: Bones intact. No dislocations. No significant arthritic change or erosions. No joint effusion. No radiopaque foreign body. IMPRESSION: 1. No acute findings. This document has been electronically signed by: Micheal Ibarra MD on 07/20/2024 22:42:10
[2024-07-20 20:50] VITALS: BP 158/108; PULSE 102; O2SAT 99
[2024-07-20 20:53] VITALS: BP 136/88; PULSE 96; RESP 20; TEMP 36.3; O2SAT 99; BMI 43.4
--- NOTE | 2024-07-20 20:56 | ED_ITS ---
HPI - General Adult General Chief complaint: Fall Stated complaint: weakness, fall, hx a couple days Time Seen by Provider: 07/20/24 23:08 Source: patient and EMS Mode of arrival: EMS Limitations: no limitations History of Present Illness ED Provider: Dr. Edyta Muñiz HPI narrative: Patient comes to the emergency room complaining of a fall was going up the stairs. Patient denies hitting her head or losing consciousness. Patient complaining of bilateral knee pain. Patient states that she feels weak. Patient denies being on blood thinners. Denies any URI symptoms fever or chills. Related Data Home Medications ?Medication ?Instructions ?Recorded ?Confirmed galcanezumab-gnlm 120 mg/mL 120 mg subcut QMONTH 05/08/20 07/21/24 subcutaneous pen injector (Emgality Pen) riboflavin (vitamin B2) 100 mg 200 mg PO BID 05/29/20 07/20/24 tablet atorvastatin 10 mg tablet 40 mg PO BEDTIME 07/23/21 07/20/24 chlorthalidone 25 mg tablet 25 mg PO DAILY 07/30/21 07/20/24 semaglutide 0.25 mg or 0.5 mg (2 0.5 mg subcut QWEEK 06/24/23 07/21/24 mg/3 mL) subcutaneous pen injector (Ozempic) lisinopril 10 mg tablet 10 mg PO DAILY 07/30/23 07/20/24 metformin 500 mg tablet,extended 1,000 mg PO BID 07/30/23 07/20/24 release 24 hr omeprazole 20 mg capsule,delayed 20 mg DAILY 07/20/24 07/20/24 release Previous Rx's ?Medication ?Instructions ?Recorded bupropion HCl 150 mg 24 hr tablet, 150 mg PO QAM #90 tabs 02/26/21 extended release cholecalciferol (vitamin D3) 50 50 mcg PO QAM 90 days #90 caps 02/26/21 mcg (2,000 unit) capsule trazodone 50 mg tablet 50 mg PO BEDTIME #90 tabs 02/26/21 gabapentin 300 mg capsule 300 mg PO BEDTIME 90 days #90 caps 06/12/21 levothyroxine 88 mcg tablet 88 mcg PO DAILY 90 days #90 tabs 08/30/21 ibuprofen 600 mg tablet 600 mg PO Q8H PRN pain #20 tabs 05/08/22 docusate sodium 100 mg capsule 200 mg (2 x 100 mg) PO BEDTIME #60 05/30/24 (Stool Softener) caps Allergies Allergy/AdvReac Type Severity Reaction Status Date / Time metronidazole [From FLAGYL] Allergy Severe CHEST PAIN Verified 07/20/24 20:56 TO LEFT SHOULDER, bacitracin [BACITRACIN] Allergy Intermediate BURNING, Verified 07/20/24 20:56 ITCHING risperidone [From Risperdal] Allergy Intermediate high level Verified 07/20/24 20:56 prolactin aripiprazole [From Abilify] Allergy Mild ITCHING Verified 07/20/24 20:56 iopromide [From Ultravist] Allergy Mild DIZZY, DRY Verified 07/20/24 20:56 THROAT AND MOUTH Vistra 650 Allergy Intermediate attention Uncoded 07/20/24 20:56 issues Review of Systems 2 Review of Systems: Constitutional : No Weight loss, No Fever, No Chills, No Night Sweats, complaining of chronic fatigue, generalized malaise ENT/Mouth : No Hearing loss, No Ear Pain, No Nasal Congestion, No Sinus Pain, No Hoarseness, No sore throat, No Rhinorrhea, No Swallowing Difficulty Eyes: No Eye Pain, No Swelling, No Redness, No Foreign Body, No Discharge, No Vision Changes Cardiovascular : No Chest Pain, No SOB, No Dyspnea on Exertion, No Orthopnea, No Edema, No Palpitations Respiratory : No Cough, No Sputum, No Wheezing, No Smoke Exposure, No Dyspnea Gastrointestinal : No Nausea, No Vomiting, No Diarrhea, No Constipation, No abdominal Pain, No Hematochezia, No Melena Genitourinary : no irregular bleeding, No Dysuria, No Urinary Frequency, No Hematuria, No Urinary Incontinence, No Urgency, No Flank Pain, No Urinary Flow Changes, No Hesitancy Musculoskeletal : Complaining of chronic foot drop on the left, complaining of bilateral knee pain after the fall Skin : No Skin Lesions, No rash Neuro : No Weakness, No Numbness, No Paresthesias, No Loss of Consciousness, No Dizziness, No Headache Psych : No Anxiety/Panic, No Depression, No SI/HI/AH/VH, No Social Issues, Heme/Lymph: No Bruising, No Bleeding,No Lymphadenopathy Endocrine : No Polyuria, No Polydipsia, No Temperature Intolerance PMFSH Past Medical History Medical History Foot drop, left Constipation Mass of left foot IBS (irritable colon syndrome) Morbid obesity with BMI of 45.0-49.9, adult GERD with esophagitis DMII (diabetes mellitus, type 2) Fibroadenoma of breast Fibromyalgia Hypothyroid PCOS (polycystic ovarian syndrome) PTSD (post-traumatic stress disorder) Surgical History History of excision of mass (08/07/22) History of esophagogastroduodenoscopy (EGD) History of D&C History of hand surgery History of section History of lumpectomy of right breast History of appendectomy Hx of appendectomy Family History Family History Father Acral gangrene Mother Cancer Father Diabetes Gangrene Mother Diabetes Hypertension Thyroid disease Cervical cancer Dementia Son In good health Maternal Grandmother Breast cancer Sister Breast cancer Other Mental health disorder Social History Social History Household Members: Children Housing: Apartment Alcohol intake: never Patient Tobacco Use Status: Never used Tobacco Smoked in Last 30 Days: No Use of substances other than those prescribed or required for medical reasons: No Advance Directives: Yes Advance Directives on File: Yes Advance Directives Date on File: 07/21/24 Patient : No Current occupational status: disabled Sexual orientation: Straight/Heterosexual Gender identity: Female Physical Exam ED Vital Signs: Vital Signs - 24 hr 07/23/24 16:11 07/23/24 21:34 07/24/24 06:10 Temperature 97.9 F 97.2 F 97.6 F Pulse Rate 89 90 87 Respiratory Rate 19 18 16 Blood Pressure 114/57 L 99/61 94/52 L Pulse Oximetry 96 97 98 Oxygen Delivery Method Room Air Room Air Room Air 07/24/24 09:23 Temperature Pulse Rate Respiratory Rate Blood Pressure 114/65 Pulse Oximetry Oxygen Delivery Method BMI result Body Mass Index 43.4 Const Other: Appearance: Alert. Oriented X3. No acute distress. Eyes: Pupils equal, round and reactive to light. ENT: Pharynx normal. Neck: Normal inspection. Neck supple. No lymph nodes noted. No crepitus CVS: Normal heart rate and rhythm. Pulses normal. Normal S1 and S2 Respiratory: No respiratory distress. Breath sounds normal. No Wheezing. No rales Abdomen: Soft and nontender. No rigidity. No distention. Skin: Skin warm and dry. Normal skin color. Normal skin turgor. Extremities: No lower extremity edema. No Lacerations. No Rash, patient able to flex and extend knees but hurts doing so, trouble sitting up and worse trying to stand Neuro: Oriented X 3. No motor deficit. No sensory deficit. Moving all extremities. No slurred speech. CN 2 through 12 grossly intact Psych: calm, cooperative, normal affect Course Course Course Narrative: RME, this is a rapid medical exam performed by Aramis Beckwith please refer to primary provider for complete H&P- 44-year-old female presents for evaluation of generalized weakness. She reports that she was weak and fell today landing on her knees. She complains of knee pain. She denies hitting her head or losing consciousness. Plan for basic labs, viral swabs and x-rays of the knees Reevaluation(s) Reevaluation #1: 1015am 07/21/2024 Nakia Marie PA-C: Physical therapy evaluated the patient and expressed concern about her bilateral extremity weakness and recommended a neurological consultation. Consult order placed. 07/22/2024 0726 - physician observation continued. Dr. Ulloa from Neurology came and assess patient, recommending treatment of UTI > if urine culture comes back positive. Still awaiting urine culture to return. and involving PT OT for regimen of rehab. We will continue to monitor pending safe disposition. Reevaluation #2: 07/23/2024 Physician observation continued. Uneventful night. Vital signs stable. No complaints from nursing overnight. Med reconciliation reviewed and done. Pending disposition. Will continue to monitor. Reevaluation #3: Nakia Marie PA-C 07/24/2024 0720 ---> Observation continues. Case management continues to follow. Patient's urine culture is negative. Nakia Marie PA-C 07/24/2024 1251 ---> Observation care revealed the the patient does not meet medical necessity for hospitalization. Final disposition of discharge to [facility] discussed with the patient who verbalized understanding and agreement. Patient completed observation care at 1500 on 07/24/2024. Medications Administered Generic Name Dose Route Start Last Admin Trade Name Joseq PRN Reason Stop Dose Admin Acetaminophen 650 mg 07/21/24 06:50 07/24/24 00:00 Acetaminophen 325 Mg Tablet PO 650 mg RQ6H PRN Administration Pain, Mild (Pain Scale 1-3) Atorvastatin Calcium 40 mg 07/21/24 21:00 07/23/24 20:47 Atorvastatin Calcium 40 Mg Tablet PO 40 mg BEDTIME RADHA Administration Bupropion HCl 150 mg 07/21/24 09:00 07/24/24 08:40 Bupropion Hcl Xl 150 Mg Tab.Er.24h PO 150 mg DAILY RADHA Administration Docusate Sodium 200 mg 07/21/24 21:00 07/23/24 20:47 Docusate Sodium 100 Mg Capsule PO Not Given BEDTIME RADHA Gabapentin 300 mg 07/21/24 21:00 07/23/24 20:47 Gabapentin 300 Mg Capsule PO 300 mg BEDTIME RADHA Administration Hydrochlorothiazide 25 mg 07/21/24 09:00 07/24/24 08:40 Hydrochlorothiazide 25 Mg Tablet PO Not Given DAILY RADHA Levothyroxine Sodium 88 mcg 07/21/24 09:00 07/24/24 08:40 Levothyroxine Sodium 88 Mcg Tablet PO 88 mcg DAILY RADHA Administration Lisinopril 10 mg 07/21/24 09:00 07/24/24 08:41 Lisinopril 10 Mg Tablet PO Not Given DAILY REPLACED BY [facility] Protocol Metformin HCl 1,000 mg 07/21/24 09:00 07/24/24 08:41 Metformin Hcl Er 500 Mg Tab.Er.24h PO Not Given BID RADHA Nystatin 1 appl 07/23/24 09:00 07/24/24 08:42 Nystatin Cream 15 Gm Tube TOPICAL Not Given DAILY REPLACED BY [facility] Protocol Omeprazole 20 mg 07/21/24 09:00 07/24/24 08:41 Omeprazole 20 Mg Capsule.Dr PO Not Given DAILY RADHA Trazodone HCl 50 mg 07/21/24 21:00 07/23/24 20:47 Trazodone Hcl 50 Mg Tablet PO 50 mg BEDTIME RADHA Administration Vitamin D 50 mcg 07/21/24 09:00 07/24/24 08:40 Cholecalciferol (Vitamin D3) 25 Mcg Tablet PO Not Given DAILY RADHA Discontinued Medications Generic Name Dose Route Start Last Admin Trade Name Zen PRN Reason Stop Dose Admin Non-Formulary Medication 120 mg 07/21/24 07:00 07/24/24 10:21 Galcanezumab-Gnlm [Emgality Pen] SUBCUT Not Given Q28D REPLACED BY [facility] Non-Formulary Medication 0.5 mg 07/21/24 07:00 07/24/24 10:22 Semaglutide [Ozempic] SUBCUT Not Given Q7D RADHA Ondansetron HCl 4 mg 07/22/24 19:09 07/22/24 20:26 Ondansetron Odt 4 Mg Tab.Rapdis TRANSLINGU 07/22/24 19:10 4 mg ONCE ONE Administration Ondansetron HCl 4 mg 07/24/24 09:54 07/24/24 10:56 Ondansetron Odt 4 Mg Tab.Rapdis TRANSLINGU 07/24/24 09:55 Not Given ONCE ONE Polyethylene Glycol 17 gm 07/22/24 14:24 07/22/24 14:58 Polyethylene Glycol 3350 17 Gm Powd.Pack PO 07/22/24 14:25 17 gm ONCE ONE Administration Medical Decision Making Medical Decision Making MDM Narrative: No significant abnormalities in patient's hematology, chemistry pending. Serology negative for COVID or flu X-rays negative Patient states that her E LEARNING COORDINATOR has not been able to visit her because she is sick. However, patient states that she requires more help at home, likely a visiting nurse, Physical therapy and case management consult pending Physician observation started at 23:25 Differential Diagnosis Differential Diagnoses: The differential diagnosis associated with the presentation includes (Deconditioning, viral illness) Admission/Observation Consideration of admission/observation: Escalation of care including admission/observation considered (Patient is under physician observation waiting to be seen by Physical therapy and case management) Lab Data [facility] Lab Attestation statement: I reviewed the patient's lab results. 07/20/24 21:12 07/22/24 09:19 Labs: Lab Results 07/20/24 07/21/24 07/22/24 Range/Units 21:12 09:25 09:19 WBC 9.3 (4.8-10.8) X10*3/uL RBC 4.27 (4.20-5.50) X10*6/uL Hgb 11.6 L (12.0-16.0) g/dl Hct 34.0 L (37.0-47.0) % MCV 79.6 L (80.0-98.0) fL MCH 27.2 (27.0-33.0) pg MCHC 34.1 (31.0-35.0) g/dl RDW 13.2 (11.0-16.0) % Plt Count 311 (160-400) X10*3/uL MPV 9.6 (9.4-12.3) fL Immature Gran % (Auto) 0.2 (0.0-0.4) % Neut % (Auto) 75.5 H (45-73) % Lymph % (Auto) 17.9 L (20-40) % Pickett % (Auto) 4.8 (2-11) % Eos % (Auto) 1.3 (0-4) % Baso % (Auto) 0.3 (0-2) % Lymph # (Auto) 1.7 (1.2-4.9) X10*3/uL Pickett # (Auto) 0.5 (0.1-1.2) X10*3/uL Eos # (Auto) 0.1 (0.0-0.4) X10*3/uL Baso # (Auto) 0.0 (0.0-0.2) X10*3/uL Abs Immat Gran (auto) 0.02 (0.00-0.03) X10*3/uL Absolute Neuts (auto) 7.1 (2.0-8.3) x10*3/uL Absolute Nucleated RBC 0.000 (0.0-0.012) X10*3/uL Nucleated RBC % (auto) 0.0 (0.0-0.2) /100WBC Sodium 141 (135-145) mmol/L Potassium 3.6 (3.3-5.1) mmol/L Chloride 109 H (96-108) mmol/L Carbon Dioxide 19 L (22-29) mmol/L Anion Gap 17 (12-20) BUN 17 H (9-16) mg/dL Creatinine 0.59 0.61 (0.5-1.4) mg/dL Estim Creat Clear Calc 148.1 143.1 Estimated GFR > 60 > 60 POC Glucose (60-115) mg/dL Random Glucose 114 (60-115) mg/dL Calcium 9.5 (8.4-10.2) mg/dL Lipase 22 (8-78) U/L Urine Color Yellow Urine Appearance Turbid Urine pH 6.0 (5.0-9.0) Ur Specific Pace 1.025 (1.005-1.025) Urine Protein 30 (1+) H (Neg-Trace) mg/dL Urine Glucose (UA) Negative (Negative) mg/dL Urine Ketones Negative (Negative) mg/dL Urine Blood Negative (Negative) Urine Nitrite Negative (Negative) Ur Leukocyte Esterase Moderate (2+) H (Negative) Urine RBC 0-2 (0-2) /HPF Urine WBC 11-20 (0-5) /HPF Ur Squamous Epith Cells >20 (0-2) /HPF Urine Bacteria 4+ (None Seen) Hyaline Casts 0-2 (0-2) /LPF Influenza Type A (PCR) NEGATIVE (Negative) Influenza Type B (PCR) NEGATIVE (Negative) RSV RNA Qual (PCR) NEGATIVE (Negative) SARS-CoV-2 RNA (RT-PCR) NEGATIVE (Negative) 07/22/24 Range/Units 16:52 WBC (4.8-10.8) X10*3/uL RBC (4.20-5.50) X10*6/uL Hgb (12.0-16.0) g/dl Hct (37.0-47.0) % MCV (80.0-98.0) fL MCH (27.0-33.0) pg MCHC (31.0-35.0) g/dl RDW (11.0-16.0) % Plt Count (160-400) X10*3/uL MPV (9.4-12.3) fL Immature Gran % (Auto) (0.0-0.4) % Neut % (Auto) (45-73) % Lymph % (Auto) (20-40) % Pickett % (Auto) (2-11) % Eos % (Auto) (0-4) % Baso % (Auto) (0-2) % Lymph # (Auto) (1.2-4.9) X10*3/uL Pickett # (Auto) (0.1-1.2) X10*3/uL Eos # (Auto) (0.0-0.4) X10*3/uL Baso # (Auto) (0.0-0.2) X10*3/uL Abs Immat Gran (auto) (0.00-0.03) X10*3/uL Absolute Neuts (auto) (2.0-8.3) x10*3/uL Absolute Nucleated RBC (0.0-0.012) X10*3/uL Nucleated RBC % (auto) (0.0-0.2) /100WBC Sodium (135-145) mmol/L Potassium (3.3-5.1) mmol/L Chloride (96-108) mmol/L Carbon Dioxide (22-29) mmol/L Anion Gap (12-20) BUN (9-16) mg/dL Creatinine (0.5-1.4) mg/dL Estim Creat Clear Calc Estimated GFR POC Glucose 91 (60-115) mg/dL Random Glucose (60-115) mg/dL Calcium (8.4-10.2) mg/dL Lipase (8-78) U/L Urine Color Urine Appearance Urine pH (5.0-9.0) Ur Specific Pace (1.005-1.025) Urine Protein (Neg-Trace) mg/dL Urine Glucose (UA) (Negative) mg/dL Urine Ketones (Negative) mg/dL Urine Blood (Negative) Urine Nitrite (Negative) Ur Leukocyte Esterase (Negative) Urine RBC (0-2) /HPF Urine WBC (0-5) /HPF Ur Squamous Epith Cells (0-2) /HPF Urine Bacteria (None Seen) Hyaline Casts (0-2) /LPF Influenza Type A (PCR) (Negative) Influenza Type B (PCR) (Negative) RSV RNA Qual (PCR) (Negative) SARS-CoV-2 RNA (RT-PCR) (Negative) Independent Interpretation I performed an independent interpretation of an: Plain X-Ray Radiology Impression Discussion of test interpretation with radiology: I have reviewed the radiologist's reading. Radiologist Impression: Bones intact. No dislocations. No significant arthritic change or erosions. No joint effusion. No radiopaque foreign body Critical Care Time Critical Care Time Critical Care Time: Yes Total Critical Care Time: 35 Attestation: I have personally provided critical care time. Time includes review of lab data, radiology results, discussion with consultants, and monitoring for potential decompensation. Intervention performed as documented. Discharge Plan Discharge Clinical Impression: Fall, Weakness, Bilateral knee pain Patient Disposition: Still a Patient Prescriptions: No Action bupropion HCl 150 mg tablet extended release 24 hr 150 mg PO QAM Qty: 90 2RF cholecalciferol (vitamin D3) 50 mcg (2,000 unit) capsule 50 mcg PO QAM 90 Days Qty: 90 2RF trazodone 50 mg tablet 50 mg PO BEDTIME Qty: 90 2RF gabapentin 300 mg capsule 300 mg PO BEDTIME 90 Days Qty: 90 1RF levothyroxine 88 mcg tablet 88 mcg PO DAILY 90 Days Qty: 90 1RF docusate sodium [Stool Softener] 100 mg capsule 200 mg PO BEDTIME Qty: 60 5RF omeprazole 20 mg capsule,delayed release(DR/EC) 20 mg DAILY riboflavin (vitamin B2) 100 mg tablet 200 mg PO BID Emgality Pen 120 mg/mL pen injector 120 mg subcut QMONTH chlorthalidone 25 mg tablet 25 mg PO DAILY ibuprofen 600 mg tablet 600 mg PO Q8H PRN (Reason: pain) Qty: 20 0RF atorvastatin 10 mg tablet 40 mg PO BEDTIME lisinopril 10 mg tablet 10 mg PO DAILY metformin 500 mg tablet extended release 24 hr 1,000 mg PO BID Ozempic 0.25 mg or 0.5 mg (2 mg/3 mL) pen injector 0.5 mg subcut QWEEK Referrals: [facility] [Outside] Print Language: Turkmen
--- NOTE | 2024-07-20 20:56 | ECG_ITS ---
Test Reason : WEAKNESS Blood Pressure : */* mmHG Vent. Rate : 90 BPM Atrial Rate : 90 BPM P-R Int : 126 ms QRS Dur : 84 ms QT Int : 344 ms P-R-T Axes : 54 47 17 degrees QTcB Int : 420 ms Normal sinus rhythm Nonspecific T wave abnormality Abnormal ECG When compared with ECG of 22-Jan-2023 17:36, No significant changes seen Referred By: Todd Beckwith Electronically Signed By: LILY WILLS
[2024-07-20 21:18] LABS: MANUAL DIFF FLAG NO
[2024-07-20 21:20] LABS: Basophils Percent Auto 0.3 % (0-2); Eosinophils Absolute Auto 0.1 X10*3/uL (0.0-0.4); Eosinophils Percent Auto 1.3 % (0-4); Hemoglobin 11.6 g/dl (12.0-16.0); Imm Gran Abs Auto 0.02 X10*3/uL (0.00-0.03); Imm Gran Pct Auto 0.2 % (0.0-0.4); Lymphocytes Absolute Auto 1.7 X10*3/uL (1.2-4.9); Lymphocytes Percent Auto 17.9 % (20-40); Mean Corpuscular HGB Conc 34.1 g/dl (31.0-35.0); Mean Corpuscular Hemoglobin 27.2 pg (27.0-33.0); Mean Corpuscular Volume 79.6 fL (80.0-98.0); Mean Platelet Volume 9.6 fL (9.4-12.3); Monocytes Absolute Auto 0.5 X10*3/uL (0.1-1.2); Monocytes Percent Auto 4.8 % (2-11); Neutrophils Absolute Auto 7.1 x10*3/uL (2.0-8.3); Neutrophils Percent Auto 75.5 % (45-73); Platelet Count 311 X10*3/uL (160-400); Red Blood Count 4.27 X10*6/uL (4.20-5.50); Red Cell Distribution Width 13.2 % (11.0-16.0); White Blood Count 9.3 X10*3/uL (4.8-10.8)
[2024-07-20 21:33] LABS: Lipase 22 U/L (8-78)
[2024-07-20 21:56] LABS: Influenza A PCR NEGATIVE (Negative); Influenza B PCR NEGATIVE (Negative); Resp Syncy Virus RNA Qual PCR NEGATIVE (Negative); SARS COV2 PCR INHOUSE NEGATIVE (Negative)
--- NOTE | 2024-07-20 23:20 | PC.NURSE ---
MD Muñiz to bedside for eval. Negative work up, pt to be held for PT/CM in morning, agreeable to plan of care.
[2024-07-20 23:36] VITALS: BP 127/64; PULSE 89; RESP 16; TEMP 36.9; O2SAT 99
[2024-07-20 23:40] LABS: Anion Gap 17 (12-20); Blood Urea Nitrogen 17 mg/dL (9-16); Calcium 9.5 mg/dL (8.4-10.2); Carbon Dioxide 19 mmol/L (22-29); Chloride 109 mmol/L (96-108); Creatinine Clr Calc Pharmacy 148.1; Estimated Glomerular Filt Rate > 60; Glucose Random 114 mg/dL (60-115); Potassium 3.6 mmol/L (3.3-5.1); Sodium 141 mmol/L (135-145)
--- NOTE | 2024-07-21 00:28 | PC.NURSE ---
Report given to Swetha AMBROCIO in overflow, awaiting transport.
--- NOTE | 2024-07-21 00:51 | PC.NURSE ---
report received from Donya AMBROCIO. Pt brought over to Overflow bed 5 at this time.
--- NOTE | 2024-07-21 06:46 | PC.NURSE ---
pt requesting pain medication for knee pain. This RN reached out to ED provider for pain medications and also for her home medications to be continued.
[2024-07-21 08:16] VITALS: BP 127/64; PULSE 89; O2SAT 99
--- NOTE | 2024-07-21 09:11 | PHA.MEDREC ---
Pharmacy Consult ? Medication Reconciliation Pharmacy has completed the medication reconciliation.
[2024-07-21] MEDS: Levothyroxine Sodium 88 MCG TABLET PO (09:35)
[2024-07-21] MEDS: lisinopriL 10 MG TABLET PO (09:35)
[2024-07-21] MEDS: Omeprazole 20 MG CAPSULE.DR PO (09:35)
[2024-07-21] MEDS: Cholecalciferol (Vitamin D3) 25 MCG TABLET 50 MCG PO (09:35)
[2024-07-21] MEDS: metFORMIN HCl ER 500 MG TAB.ER.24H 1000 MG PO ×2 (09:35→20:19)
[2024-07-21] MEDS: buPROPion HCl XL 150 MG TAB.ER.24H PO (09:35)
[2024-07-21] MEDS: hydroCHLOROthiazide 25 MG TABLET PO (09:35)
[2024-07-21 10:11] LABS: Appearance Urine Turbid; Color Urine Yellow; Glucose Urine UA Negative (Negative); Leukocyte Esterase Urine Moderate (2+) (Negative); Nitrite Urine Negative (Negative); Specific Gravity - Urine 1.025 (1.005-1.025); UMIC TRIGGER UACC YES; Urine Blood Negative (Negative); Urine Ketones Negative (Negative); Urine Protein 30 (1+) mg/dL (Neg-Trace)
[2024-07-21 10:24] LABS: Bacteria Urine 4+ (None Seen); Hyaline Casts Urine 0-2 /LPF (0-2); RBC Urine 0-2 /HPF (0-2); Squamous Epithelial Cell Urine >20 /HPF (0-2); UACC Culture Trigger YES
--- NOTE | 2024-07-21 11:20 | PM.NEUROCN ---
History of Present Illness Data of Consult Service Date: 07/21/24 Primary Care Provider: Sunitha Rosales MD [facility] Reason for consult: Leg weakness 44 years old woman with underlying history of depression, anxiety, somewhat paranoid personality, came to hospital after she fell. She said that she was climbing stairs when her legs gave away and she fell. She also reported that she was being investigated by a neurologist and had multiple tests done including lumbar spine MRI. There was no loss of bowel bladder control. Review of Systems Review of Systems: No recent cold or flu-like illness. [facility] Past Medical History Medical History Foot drop, left Constipation Mass of left foot IBS (irritable colon syndrome) Morbid obesity with BMI of 45.0-49.9, adult GERD with esophagitis DMII (diabetes mellitus, type 2) Fibroadenoma of breast Fibromyalgia Hypothyroid PCOS (polycystic ovarian syndrome) PTSD (post-traumatic stress disorder) Family History Family History Father Acral gangrene Mother Cancer Father Diabetes Gangrene Mother Diabetes Hypertension Thyroid disease Cervical cancer Dementia Son In good health Maternal Grandmother Breast cancer Sister Breast cancer Other Mental health disorder Surgical History Surgical History History of excision of mass (08/07/22) History of esophagogastroduodenoscopy (EGD) History of D&C History of hand surgery History of section History of lumpectomy of right breast History of appendectomy Hx of appendectomy Social History Social History Household Members: Children Housing: Apartment Alcohol intake: never Patient Tobacco Use Status: Never used Tobacco Smoked in Last 30 Days: No Use of substances other than those prescribed or required for medical reasons: No Advance Directives: No Advance Directives Information Provided: Yes Patient : No Current occupational status: disabled Sexual orientation: Straight/Heterosexual Gender identity: Female Meds Allergies Allergy/AdvReac Type Severity Reaction Status Date / Time metronidazole [From FLAGYL] Allergy Severe CHEST PAIN Verified 07/20/24 20:56 TO LEFT SHOULDER, bacitracin [BACITRACIN] Allergy Intermediate BURNING, Verified 07/20/24 20:56 ITCHING risperidone [From Risperdal] Allergy Intermediate high level Verified 07/20/24 20:56 prolactin aripiprazole [From Abilify] Allergy Mild ITCHING Verified 07/20/24 20:56 iopromide [From Ultravist] Allergy Mild DIZZY, DRY Verified 07/20/24 20:56 THROAT AND MOUTH [facility] 650 Allergy Intermediate attention Uncoded 07/20/24 20:56 issues Active Medications: Current Medications Acetaminophen (Acetaminophen 325 Mg Tablet) 650 mg PO RQ6H PRN PRN Reason: Pain, Mild (Pain Scale 1-3) Atorvastatin Calcium (Atorvastatin Calcium 40 Mg Tablet) 40 mg PO BEDTIME [facility] Bupropion HCl (Bupropion Hcl Xl 150 Mg Tab.Er.24h) 150 mg PO DAILY [facility] Last Admin: 07/21/24 09:35 Dose: 150 mg Docusate Sodium (Docusate Sodium 100 Mg Capsule) 200 mg PO BEDTIME [facility] Gabapentin (Gabapentin 300 Mg Capsule) 300 mg PO BEDTIME [facility] Hydrochlorothiazide (Hydrochlorothiazide 25 Mg Tablet) 25 mg PO DAILY [facility] Last Admin: 07/21/24 09:35 Dose: 25 mg Levothyroxine Sodium (Levothyroxine Sodium 88 Mcg Tablet) 88 mcg PO DAILY [facility] Last Admin: 07/21/24 09:35 Dose: 88 mcg Lisinopril (Lisinopril 10 Mg Tablet) 10 mg PO DAILY [facility]; Protocol Last Admin: 07/21/24 09:35 Dose: 10 mg Metformin HCl (Metformin Hcl Er 500 Mg Tab.Er.24h) 1,000 mg PO BID [facility] Last Admin: 07/21/24 09:35 Dose: 1,000 mg Non-Formulary Medication (Galcanezumab-Gnlm [Emgality Pen]) 120 mg SUBCUT Q28D [facility] Non-Formulary Medication (Semaglutide [Ozempic]) 0.5 mg SUBCUT Q7D [facility] Omeprazole (Omeprazole 20 Mg Capsule.Dr) 20 mg PO DAILY [facility] Last Admin: 07/21/24 09:35 Dose: 20 mg Trazodone HCl (Trazodone Hcl 50 Mg Tablet) 50 mg PO BEDTIME [facility] Vitamin D (Cholecalciferol (Vitamin D3) 25 Mcg Tablet) 50 mcg PO DAILY [facility] Last Admin: 07/21/24 09:35 Dose: 50 mcg Home Medications ?Medication ?Instructions ?Recorded ?Confirmed ?Last Taken ?Type galcanezumab-gnlm 120 mg/mL 120 mg subcut QMONTH 05/08/20 07/21/24 07/04/24 History subcutaneous pen injector (Emgality Pen) riboflavin (vitamin B2) 100 mg 200 mg PO BID 05/29/20 07/20/24 Unknown History tablet atorvastatin 10 mg tablet 40 mg PO BEDTIME 07/23/21 07/20/24 Unknown History chlorthalidone 25 mg tablet 25 mg PO DAILY 07/30/21 07/20/24 Unknown History semaglutide 0.25 mg or 0.5 mg (2 0.5 mg subcut QWEEK 06/24/23 07/21/24 07/17/24 History mg/3 mL) subcutaneous pen injector (Ozempic) lisinopril 10 mg tablet 10 mg PO DAILY 07/30/23 07/20/24 07/20/24 History metformin 500 mg tablet,extended 1,000 mg PO BID 07/30/23 07/20/24 07/20/24 History release 24 hr omeprazole 20 mg capsule,delayed 20 mg DAILY 07/20/24 07/20/24 Unknown History release Physical Exam Vital Signs: Vital Signs: Last Vital Signs Temp 98.5 F 07/20/24 23:36 Pulse 89 07/21/24 08:16 Resp 16 07/20/24 23:36 BP 127/64 07/21/24 08:16 Pulse Ox 99 07/21/24 08:16 O2 Del Method Room Air 07/20/24 23:36 BMI result Body Mass Index 43.4 Neuro: Other: She is alert and awake with normal spontaneity of speech with anxious affect. Face is symmetrical. Visual jordan are full. Arm strength is full. When asked to move her toes, she almost did not move a muscle. When asked to move her legs she move them [id number]. Deep tendon reflexes are absent with flexor plantars. Results Labs 07/20/24 21:12 07/20/24 21:12 Labs: Short CBC 07/20/24 Range/Units 21:12 WBC 9.3 (4.8-10.8) X10*3/uL Hgb 11.6 L (12.0-16.0) g/dl Hct 34.0 L (37.0-47.0) % Plt Count 311 (160-400) X10*3/uL BMP 07/20/24 21:12 Sodium 141 Potassium 3.6 Chloride 109 H Carbon Dioxide 19 L BUN 17 H Creatinine 0.59 Calcium 9.5 Urine 07/21/24 Range/Units 09:25 Urine Color Yellow Urine Appearance Turbid Urine pH 6.0 (5.0-9.0) Ur Specific [place] 1.025 (1.005-1.025) Urine Protein 30 (1+) H (Neg-Trace) mg/dL Urine Glucose (UA) Negative (Negative) mg/dL MRI of lumbosacral spine was reviewed. Mild bilateral mid to lower lumbar spondylosis was noted. 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 She had a lumbosacral spine MRI that did not reveal significant pathology to explain her symptoms. She might have neuropathy, which can be investigated as an outpatient. I would recommend giving a call to her neurologist to find out if EMG nerve conduction study has already been done. Overall clinical pattern is not suggestive of a Guillain-Mcdonough type of syndrome either. There are no upper motor neuron signs. Even for lower motor neurons, exam is difficult to interpret, and is suggestive of somatization. I recommend treatment of UTI, if that is confirmed, and involving PT OT for regimen of rehab. Procedures Date of Service Date of Service: 07/21/24
[2024-07-21] MEDS: Acetaminophen 325 MG TABLET 650 MG PO (13:01)
[2024-07-21 13:18] VITALS: BP 118/57; PULSE 88; RESP 18; TEMP 36.6; O2SAT 98
--- NOTE | 2024-07-21 15:26 | MHC.CM.ED ---
Received case management consult overnight. Patient came to the ER due to weakness. Physical therapy eval completed. Short term rehab is recommended. Met with patient in regards to discharge planning. Patient's primarily language is German but is able to speak and understand Kyrgyz. 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 PCP verified. Patient would be agreeable to STR in [place] or [facility]. Referral broadcasted at this time. Continue to monitor for d/c needs.
--- NOTE | 2024-07-21 16:42 | MHC.CM.ED ---
Reviewed bed offers with patient. Pt chooses [facility]. CM notified facility via [facility]. Waiting on insurance auth. HCP reviewed, completed and signed. HCP/sister Samantha Al ([phone]). Uploaded into [facility] and [facility].
[2024-07-21] MEDS: Gabapentin 300 MG CAPSULE PO (20:20)
[2024-07-21] MEDS: traZODone HCL 50 MG TABLET PO (20:20)
[2024-07-21] MEDS: Atorvastatin Calcium 40 MG TABLET PO (20:20)
[2024-07-21 20:57] VITALS: BP 132/86; PULSE 75; RESP 18; TEMP 36.8; O2SAT 99
--- NOTE | 2024-07-22 04:37 | PC.NURSE ---
Patient up to bedside commode with heavy assist of 2 and a walker. Bed linens changed along with patient gown.
[2024-07-22 04:39] VITALS: BP 132/76; PULSE 86; RESP 17; TEMP 36.9; O2SAT 95
[2024-07-22] MEDS: Acetaminophen 325 MG TABLET 650 MG PO ×2 (04:40→15:01)
[2024-07-22 08:15] VITALS: BP 133/84; PULSE 85; RESP 19; TEMP 36.4; O2SAT 97
[2024-07-22] MEDS: hydroCHLOROthiazide 25 MG TABLET PO (08:55)
[2024-07-22] MEDS: Cholecalciferol (Vitamin D3) 25 MCG TABLET 50 MCG PO (08:55)
[2024-07-22] MEDS: Omeprazole 20 MG CAPSULE.DR PO (08:56)
[2024-07-22] MEDS: lisinopriL 10 MG TABLET PO (08:58)
[2024-07-22 09:36] LABS: Creatinine Clr Calc Pharmacy 143.1; Estimated Glomerular Filt Rate > 60
[2024-07-22 10:50] VITALS: BP 158/89; PULSE 93; RESP 16; O2SAT 97
[2024-07-22] MEDS: Levothyroxine Sodium 88 MCG TABLET PO (11:04)
[2024-07-22] MEDS: metFORMIN HCl ER 500 MG TAB.ER.24H 1000 MG PO ×2 (11:04→21:53)
[2024-07-22] MEDS: buPROPion HCl XL 150 MG TAB.ER.24H PO (11:05)
[2024-07-22 14:00] VITALS: BP 120/76; PULSE 78; RESP 19; TEMP 36.3; O2SAT 96
[2024-07-22] MEDS: polyethylene glycoL 3350 17 GM POWD.PACK PO (14:58)
[2024-07-22 16:57] LABS: Glucose, Whole Blood 91 mg/dL (60-115)
[2024-07-22 18:33] VITALS: BP 127/87; PULSE 90; RESP 20; TEMP 36.7; O2SAT 95
--- NOTE | 2024-07-22 19:54 | MHC.EDTECH ---
Pt assisted on/off bedpan, had small BM. Blood noted and Pt reports having her menses. Pt cleaned and repositioned, new gown and blanket given and new purewick in place.
[2024-07-22] MEDS: Atorvastatin Calcium 40 MG TABLET PO (20:26)
[2024-07-22] MEDS: Docusate Sodium 100 MG CAPSULE 200 MG PO (20:26)
[2024-07-22] MEDS: Gabapentin 300 MG CAPSULE PO (20:26)
[2024-07-22] MEDS: Ondansetron ODT 4 MG TAB.RAPDIS TRANSLINGU (20:26)
[2024-07-22] MEDS: traZODone HCL 50 MG TABLET PO (20:27)
--- NOTE | 2024-07-22 21:08 | MHC.EDTECH ---
Pt vomiting. RN aware. Pt cleaned up and new gown given. Vital signs taken.
[2024-07-22 21:09] VITALS: BP 121/66; PULSE 90; RESP 16; TEMP 36.9; O2SAT 96
[2024-07-23 06:00] VITALS: BP 121/65; PULSE 81; RESP 16; TEMP 36.2; O2SAT 98
[2024-07-23] MEDS: Acetaminophen 325 MG TABLET 650 MG PO (06:07)
--- NOTE | 2024-07-23 06:27 | MHC.EDTECH ---
Pt cleaned and repositioned to right side. New purewick placed, call lezama within reach.
[2024-07-23 08:40] VITALS: BP 122/67; PULSE 94; RESP 18; TEMP 36.6; O2SAT 97
[2024-07-23] MEDS: buPROPion HCl XL 150 MG TAB.ER.24H PO (09:25)
[2024-07-23] MEDS: Omeprazole 20 MG CAPSULE.DR PO (09:25)
[2024-07-23] MEDS: lisinopriL 10 MG TABLET PO (09:26)
[2024-07-23] MEDS: metFORMIN HCl ER 500 MG TAB.ER.24H 1000 MG PO ×2 (09:26→20:47)
[2024-07-23] MEDS: hydroCHLOROthiazide 25 MG TABLET PO (09:26)
[2024-07-23] MEDS: Cholecalciferol (Vitamin D3) 25 MCG TABLET 50 MCG PO (09:26)
[2024-07-23] MEDS: Levothyroxine Sodium 88 MCG TABLET PO (09:26)
[2024-07-23] MEDS: Nystatin Cream 15 GM TUBE 1 APPL TOPICAL (10:05)
--- NOTE | 2024-07-23 10:38 | MHC.EDTECH ---
I did ADL'S care on patient full bed bath change patients be with clean linen as well put on a clean hospital gown and fresh new socks patient is a total assist in bed bath patient is on a [facility] nurse aware.
--- NOTE | 2024-07-23 11:37 | MHC.EDTECH ---
patient comb her own hair set her up to brush teeth. nurse aware
[2024-07-23 16:11] VITALS: BP 114/57; PULSE 89; RESP 19; TEMP 36.6; O2SAT 96
--- NOTE | 2024-07-23 18:44 | MHC.EDTECH ---
I Clean and changed patient as well as reposition her on her right side. I put some barrier cream on her bottom and used interdry on both side of her thigh and under her belly. New purewick in place. Nurse is aware.
[2024-07-23] MEDS: traZODone HCL 50 MG TABLET PO (20:47)
[2024-07-23] MEDS: Atorvastatin Calcium 40 MG TABLET PO (20:47)
[2024-07-23] MEDS: Gabapentin 300 MG CAPSULE PO (20:47)
[2024-07-23 21:34] VITALS: BP 99/61; PULSE 90; RESP 18; TEMP 36.2; O2SAT 97
--- NOTE | 2024-07-23 23:58 | MHC.EDTECH ---
Pt repositioned to right side and pillows placed under back. Complaining of abd cramping. RN notified.
[2024-07-24] MEDS: Acetaminophen 325 MG TABLET 650 MG PO
[2024-07-24 06:10] VITALS: BP 94/52; PULSE 87; RESP 16; TEMP 36.4; O2SAT 98
--- NOTE | 2024-07-24 06:15 | MHC.EDTECH ---
Jenna emptied of 450ml of bloody urine. RN aware.
[2024-07-24] MEDS: buPROPion HCl XL 150 MG TAB.ER.24H PO (08:40)
[2024-07-24] MEDS: Levothyroxine Sodium 88 MCG TABLET PO (08:40)
[2024-07-24 09:23] VITALS: BP 114/65
--- NOTE | 2024-07-24 12:12 | MHC.CM.ED ---
Patient remains in ER overflow. [facility] is in the process of obtaining insurance auth. Continue to monitor for d/c needs.
[2024-07-24 14:00] VITALS: BP 112/57; PULSE 92; RESP 20; TEMP 36.1; O2SAT 96
[2024-07-24 16:26] VITALS: BP 112/57; PULSE 92; RESP 20; TEMP 36.1; O2SAT 96
== END 2024-07-24 16:31 ==
PROVIDERS: Physician Assistant; Physician Assistant Medical; Emergency Provider Emergency Medicine; PCP Family Medicine
DX: R53.1 Weakness (principal); M25.562 Pain in left knee; M25.561 Pain in right knee; Z91.81 History of falling; M21.372 Foot drop, left foot; J45.991 Cough variant asthma; Z03.818 Encounter for observation for suspected exposure to other biological agents ruled out
CPT/HCPCS: 0241U; 36415; 73560; 80048; 81001; 82565; 82947; 83690; 85025; 87086; 93005; 97162; 99285

== ENCOUNTER → 2024-07-20 20:56 | Outpatient (BNV) | payer OTHER, SELFPAY | PROVIDERS: PCP Family Medicine; Visit Provider Specialist | DX: M25.562 Pain in left knee (principal); M25.561 Pain in right knee | CPT/HCPCS: 73560 ==

== ENCOUNTER → 2024-07-20 20:56 | Outpatient (BNV) | payer OTHER, SELFPAY | PROVIDERS: Emergency Provider Emergency Medicine; PCP Family Medicine; Visit Provider Internal Medicine | DX: R94.31 Abnormal electrocardiogram [ECG] [EKG] (principal); R53.1 Weakness | CPT/HCPCS: 93010 ==

== ENCOUNTER → 2024-07-20 22:37 | Outpatient (BNV) | payer OTHER, SELFPAY | PROVIDERS: Emergency Provider Emergency Medicine; PCP Family Medicine; Visit Provider Psychiatry & Neurology Neurology | DX: R53.1 Weakness (principal) | CPT/HCPCS: 99282 ==

== ENCOUNTER 2024-08-02 01:53 | Emergency (ER) | payer OTHER, SELFPAY ==
[2024-08-02 01:59] VITALS: BP 130/77; PULSE 89; O2SAT 100
[2024-08-02 02:09] VITALS: BP 124/78; PULSE 86; RESP 16; TEMP 36.4; O2SAT 98; BMI 42.6
--- OUTSIDE RECORDS SUMMARY | 2024-08-02 02:31 | XMS_ITS | Encounter Summary ---
Author Organization [employer] Address [address] [place] [address] Care Team Providers Care Data Sme Name Role Phone Sunitha Rosales MD Primary Care Provider [phone] Huan Holman PharmD Unavailable [phone] Encounter Details Date Type Department Care Team (Late st Contact Info) Description 01/20/2023 Abstract [facility] [address] [place] [address] Sunitha Rosales MD [address], [place] [phone] Social History Tobacco Use Types Packs/Day Years Used Date Smoking Tobacco: Never Passive Smoke Exposure: Never Smokeless Tobacco: Never Depression Answer Date Recorded Patient Health Questionnaire-9 Score 8 01/19/2023 Depression Answer Date Recorded Patient Health Questionnaire-2 Score 2 01/19/2023 Comments Unknown Sex and Gender Information Value Date Recorded Sex Assigned at Female 04/20/2022 10:15 AM EDT Legal Sex Female 10:15 AM EDT Gender Identity Female 04/20/2022 10:15 AM EDT Sexual Orientation Straight 04/20/2022 10 :15 AM EDT documented as of this encounter Plan of Treatment Not on file documented as of this encounter Goals Goal Patient Goal Type Associated Problems Recent Progress Patient-Stated? Author Blood Pressure < 140/90 Blood Pressure 137/74( 024 11:35 AM EDT) No Huan Holman, PharmD documented as of this encounter Visit Diagnoses Not on filedocumented in this encounter Additional Health Concerns Assessment Noted Time PHQ-9 Depression Total Score: 8 01/20/20 23 2:22 PM EDT documented as of this encounter Care Teams Data Sme Relationship Specialty Start Date End Date Sunitha Rosales MD [address], [place] [phone] PCP - General Family Medicine 03/18/21 Huan Holman, YairD [address] [place] [address] Pharmacist Internal Medicine 08/17/22 documented as of this encounter
--- OUTSIDE RECORDS SUMMARY | 2024-08-02 02:31 | XMS_ITS | Encounter Summary ---
Author Organization [employer] Address [address] [place] [address] Care Team Providers Care Printing Supervisor Name Role Phone Sunitha Rosales MD Primary Care Provider [phone] Huan Holman PharmD Unavailable [phone] Reason for Visit * Reason Onset Date Comments Nurse Triage 02/05/2023 Encounter Details Date Type Department Care Team (Late st Contact Info) Description 02/05/2023 Telephone [facility] [address] [place], [place] [phone] Sunitha Rosales MD [address], [place] [phone] Nurse Triage Social History Tobacco Use Types Packs/Day Years [...] AM EDT documented as of this encounter Miscellaneous Notes * Telephone Encounter - Em Perdomo RN - 02/05/2023 3:47 PM EDT Call to [facility], reports seen by [facility] last week. Per pt having blurred vision whenattempting to read. Per pt had vision exam and dx mild cataracts an was told could use OTC reading glasses as needed. Pt wants PCP to refer to [facility] for second opionon because feels that provider at [facility] in [place] did not pefrom proper exam. Pt has appointment on 02/16/23 with Sunitha Rosales MD. Pt wants referral prior to upcoming appt. Advised will send request to PCP to review and further advise team. Protocol Used: Vision Loss or Change (Adult) Protocol-Based Disposition: See in Office or Video Visit within 2 Weeks Video visit offer not recorded Positive Triage Question: * Holds book very close to face or sits very close to TV * All higher-acuity triage questions were negative * Telephone Encounter - Brittany Davis - 02/05/2023 3:38 PM EDT Symptom: Vision Loss or Change Outcome: Schedule an appointment to be seen within 24 hours Reason: Caller denied all higher acuity questions The caller accepted this outcome documented in this encounter Plan of Treatment Not on file documented as of this encounter Goals Goal Patient Goal Type Associated Problems Recent Progress Patient-Stated? Author Blood Pressure < 140/90 Blood Pressure 137/74( 024 11:35 AM EDT) No Huan Holman, Faisal documented as of this encounter Visit Diagnoses Not on filedocumented in this encounter Additional Health Concerns Assessment Noted Time PHQ-9 Depression Total Score: 8 01/20/20 23 2:22 PM EDT documented as of this encounter Care Teams Printing Supervisor Relationship Specialty Start Date End Date Sunitha Rosales MD [address] [place] [address] PCP - General Family Medicine 03/18/21 Huan Holman, Faisal [address] [place] [address] Pharmacist Internal Medicine 08/17/22 documented as of this encounter
--- OUTSIDE RECORDS SUMMARY | 2024-08-02 02:31 | XMS_ITS | Data Portability ---
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 Evaluation in the field was performed by my violin restorer colleague, as noted above, I provided real-time direction and supervision for this visit. The evaluation revealed 44y F who at baseline uses a walker and has PMH Hypertension, Depression, Diabetes Mellitus Type 1, Fibromyalgia, Obesity, Post-Traumatic Stress Disorder (PTSD) who was getting off commode earlier today when she fell due to the brake being unengaged and she lost her balance. No prodromal cp, shob, palpitaitons, blurry vision, confusion, dizziness. No head strike. now complaining of right knee pain particularly at fibular head but without point tenderness and able to bear weight with increased but tolerable pain. Encouraged RICE and f/u w PCP. Impression: right knee pain Plan: RICE, supportive care, f/u w PCP Primary care, consider f/u in 10-14d Disposition: We discussed the diagnostic uncertainty of home visits and the risk associated with this. In this case, the patient and I felt this to be an acceptable and reasonable amount of risk given the benefit of avoiding an ED visit. We discussed the need to seek care urgently/emerge ntly in the setting of any new or worsening serious symptoms, particularly worsening pain, fever, cough, shob, palpitations, blurry vision, chest pain atilhou Not available 04/24/2024 18:14:03 Plan of Treatment Reminders Order Date Submit Date Provider Last Modified By Organization Details Last Modified Time Details Appointments None recorded. Lab None recorded. Referral None recorded. Procedures None recorded. Surgeries None recorded. Imaging None recorded. Medication Orders Diflucan 150 mg tablet 2023 024 [facility], [address] [place] [address], [phone], 11:39:23 Patient TargetsNo targets recorded. Patient InstructionsNo instructions recorded. Reason for Referral None Reported. Medical Equipment None Reported. Allergies Allergen ID Allergen Name Allergen Category Reaction Reaction Severity Criticality Documentation Date Start Date Code Code System Note Provider Name and Address Organization Details Recorded Time 74860 loperamid e medicatio n Not available Not available Not available 06/08/2024 6468 RxNorm Not Available [facility] - production 14:37:50 06828 Risperdal medicatio n Not available Not available Not available 06/08/2024 39604 8 RxNorm Not Available [facility] - production 14:37:50 79467 Terramyci n with Polymyxin B medicatio n Not available Not available Not available 06/08/2024 55730 2 RxNorm Not Available [facility] - production 14:37:50 5455 metronida zole medicatio n Not available Not available Not available 01/04/2024 6922 RxNorm Not Available [facility] - production 03:42:28 5456 aripipraz ole medicatio n Not available Not available Not available 01/04/2024 16831 RxNorm Not Available [facility] - production 14:37:50 5457 bacitraci n medicatio n Not available Not available Not available 01/04/2024 1291 RxNorm Not Available [facility] - production 14:37:50 5458 iopromide medicatio n Not available Not available Not available 01/04/2024 44729 RxNorm OMKAR GONZALEZ MD [address] [facility],[address], [place], [address], [facility] - [employer], [facility] 4 16:54:42 5459 neomycin medicatio n Not available Not available Not available 01/04/2024 7299 RxNorm Not Available [facility] - production 4 14:37:50 5460 polymyxin B medicatio n Not available Not available Not available 01/04/2024 8536 RxNorm OMKAR GONZALEZ MD [address] [facility],[address], [place], [address], [facility] - [employer] 4 16:55:17 5461 risperido ne medicatio n Not available Not available Not available 01/04/2024 59677 RxNorm Not Available [facility] - production 4 14:37:50 Medications Name Sig Start Date Stop Date Status Note LastModified by Organization Details LastModified Time medbox status USE DIRECTED active Not Available Not Available No t Available cyclobenzapr ine 10 mg tablet TAKE 1 TABLET BY MOUTH AT BEDTIME active Not Available Not Available No t Available medroxyproge sterone 10 mg tablet TAKE 1 TABLET BY MOUTH ONCE DAILY FOR 5 DAYS active Not Available Not Available No t Available atorvastatin 40 mg tablet active Not Available Not Available Not Available Vitamin B-2 100 mg tablet TAKE 2 TABLETS BY MOUTH TWICE DAILY IN THE MORNING AND IN THE EVENING active Not Available Not Available No t Available acetaminophe n 325 mg tablet TAKE 2 TABLETS BY MOUTH EVERY 4 HOURS NEEDED FOR PAIN OR FEVER active Not Available Not Available No t Available trazodone 50 mg tablet TAKE 1 TABLET BY MOUTH AT BEDTIME active Not Available Not Available No t Available atorvastatin 10 mg tablet TAKE 1 TABLET BY MOUTH AT BEDTIME active Not Available Not Available No t Available Stool Softener 100 mg capsule TAKE 2 CAPSULES BY MOUTH EVERY DAY AT BEDTIME active Not Available Not Available No t Available ibuprofen 800 mg tablet TAKE 1 TABLET BY MOUTH EVERY 8 HOURS NEEDED FOR PAIN OR FEVER. DO NOT EXCEED 2 WEEKS AT A TIME active Not Available Not Available No t Available fluconazole 150 mg tablet TAKE 1 TABLET BY MOUTH ONCE active Not Available Not Available N ot Available chlorthalido ne 25 mg tablet TAKE 1 TABLET BY MOUTH EVERY MORNING active Not Available Not Available No t Available acetaminophe n 500 mg tablet TAKE 1 TABLET (500 MG) BY MOUTH EVERY 6 (SIX) HOURS IF NEEDED FOR MILD PAIN. active Not Available Not Available N ot Available hydrocortiso ne 2.5 % topical cream with perineal applicator INSERT RECTALLY TWICE DAILY active Not Available Not Available Not Available levothyroxin e 88 mcg tablet TAKE 1 TABLET BY MOUTH EVERY MORNING active Not Available Not Available No t Available lisinopril 10 mg tablet TAKE 1 TABLET BY MOUTH AT BEDTIME active Not Available Not Available No t Available progesterone micronized 200 mg capsule active Not Available Not Available Not Available gabapentin 300 mg capsule TAKE 1 CAPSULE BY MOUTH AT BEDTIME active Not Available Not Available No t Available omeprazole 20 mg capsule,lashae yed release TAKE 1 CAPSULE BY MOUTH EVERY MORNING active Not Available Not Available No t Available bisacodyl 5 mg tablet,delay ed release TAKE 4 TABLETS BY MOUTH AT NOON THE DAY BEFORE PROCEDURE active Not Available Not Available No t Available polyethylene glycol 3350 17 gram/dose oral powder MIX WITH WATER AND DRINK DIRECTED BEFORE PROCEDURE active Not Available Not Available No t Available propranolol 20 mg tablet TAKE 1 TABLET BY MOUTH EVERY EVENING WITH DINNER active Not Available Not Available Not Available metformin ER 500 mg tablet,exten ded release 24 hr TAKE 2 TABLETS BY MOUTH TWICE DAILY IN THE MORNING AND EVENING BEFORE MEALS. DO NOT BREAK, CRUSH, DISSOLVE OR CHEW. active Not Available Not Available No t Available loratadine 10 mg tablet TAKE 1 TABLET BY MOUTH AT BEDTIME active Not Available Not Available No t Available Fiber-Lax 625 mg tablet TAKE 1 TABLET BY MOUTH TWICE DAILY IN THE MORNING AND IN THE EVENING active Not Available Not Available No t Available bupropion HCl XL 150 mg 24 hr tablet, extended release TAKE 1 TABLET BY MOUTH EVERY MORNING active Not Available Not Available No t Available Alcohol Prep Pads USE DAILY DIRECTED active Not Available Not Available Not Available FreeStyle Lite Strips TEST BLOOD SUGAR TWICE DAILY active Not Available Not Available No t Available Lantus Solostar U-100 Insulin 100 unit/mL (3 mL) subcutaneous pen INJECT 20 UNITS SUBCUTANEOU SLY EVERY EVENING active Not Available Not Available No t Available FreeStyle [place] Lite kit TEST BLOOD SUGAR TWICE DAILY active Not Available Not Available No t Available blood pressure kit-extra large cuff USE TO CHECK BLOOD PRESSURE DIRECTED active Not Available Not Available No t Available Hemorrhoidal Hygiene 50 % topical pads APPLY TOPICALLY NEEDED FOR IRRITATION active Not Available Not Available N ot Available Vitamin D3 50 mcg (2,000 unit) capsule TAKE 1 TABLET BY MOUTH EVERY MORNING active Not Available Not Available No t Available TRUEplus Lancets 33 gauge TEST BLOOD SUGAR TWICE DAILY active Not Available Not Available No t Available Emgality Pen 120 mg/mL subcutaneous pen injector INJECT 120 MG SUBCUTANEOU SLY EVERY 28 DAYS active Not Available Not Available No t Available FreeStyle Charanjit 2 Sensor kit USE DIRECTED active Not Available Not Available No t Available FreeStyle Charanjit 2 [place] USE DIRECTED active Not Available Not Available No t Available Paxlovid 300 mg (150 mg x 2)-100 mg tablets in a dose pack TAKE 3 TABLETS BY MOUTH TWICE A DAY FOR 5 DAYS active Not Available Not Available No t Available Ozempic 0.25 mg or 0.5 mg (2 mg/3 mL) subcutaneous pen injector INJECT 0.5 MG SUBCUTANEOU SLY EVERY 7 DAYS IN THE ABDOMEN, THIGHS, OR UPPER ARM, ROTATE INJECTION SITES. active Not Available Not Available No t Available Vitals Date Recorded Body weight Respiratory rate Heart rate Body height Oxygen saturation Oxygen saturation in Arterial blood by Pulse oximetry Body temperature Systolic blood pressure Diastolic blood pressure Provider Name and Address Organization Details Last Updated DateTime 4 69598.4 g 14 /min 80 /min 157.48 cm 98 % 98 % 98.4 [degF] 123 mm[Hg] 83 mm[Hg] Not Available [employer] 4 11:10:21 Date Recorded Oxygen saturation Oxygen saturation in Arterial blood by Pulse oximetry Heart rate Body weight Body height Respiratory rate Systolic blood pressure Diastolic blood pressure Provider Name and Address Organization Details Last Updated DateTime 4 99 % 99 % 95 /min 361414 g 162.56 cm 16 /min 180 mm[Hg] 100 mm[Hg] Not Available [employer] 4 18:04:26 Social History None recorded. Functional Status None recorded. Mental Status None recorded. Family History Nothing Reported. Medical History No medical history recorded. Gynecological HistoryNo gynecological history recorded. Obstetrics History GPAL:G 0 P 0 0 0 0 Past Encounters Encounter ID Performer Location Encounter Start Date Encounter Closed Date Diagnosis/Indication Diagnosis SNOMED-CT Code Diagnosis ICD10 Code Diagnosis Note [id number] Wayne Flowers MD [facility] [address] [place] [phone] 02/03/2024 11:10:18 02/04/2024 12:57:30 Candidiasis of vagina 09859916 B37.31 Patient states sxs similar to candidiasi s in the past. Will treat with 1x diflucan. No red flag signs noted. Discussed red flag signs for which to seek higher level of care. [id number] Cora Ch MD [address] [address] 04/24/2024 17:58:13 04/24/2024 20:03:50 Pain of right knee joint 9368833409 88548 M25.561 Health Concerns Section Related Observation LastModified by Organization Detai ls LastModified Time None Recorded Concern Status LastModified by Organization Details LastModified Time None Recorded Advance Directives Directive None Recorded Payers Encounter Date Sequence Insurance Name Policy Number Policy Nuñez Covered Member ID Nuñez Member ID Guarantor Name 02/03/2024 1 [facility] - DOS ON OR AFTER 2022 - DUAL ELIGIBLE - RETIREMENT OPTIONS AND ONE CARE (MEDICARE REPLACEMENT/ADV ANTAGE - HMO) Georgia Muñoz [id number] Georgia Muñoz 04/24/2024 1 [facility] - DOS ON OR AFTER 2022 - DUAL ELIGIBLE - RETIREMENT OPTIONS AND ONE CARE (MEDICARE REPLACEMENT/ADV ANTAGE - HMO) Georgia Muñoz [id number] Georgia Muñoz Notes Date Note Type Note Provider Name and Address Organization Details Recorded Time 02/03/2024 text/html HPI: Patient reports that she had itching and discharge from labia after scratching herself with wiping. ................... ................... ................... ................... ................... ................... ................... ........ [facility] Nurse Triage Notes (Niki Crabtree): Chief Complaints: Diabetes Related, Injury, Rash PMH: Hypertension, Hypertension, Diabetes Allergies: Metronidazole Other Allergies: Aripiprazole, iopromide, risperidone,bacitra minor polymyxine B neomycin Comments: HPI reviewed. No further information needed to process visit. ................... ................... ................... ................... ................... ................... ................... ........ Duty Engineer Note From Daryl Sainz: Patient and oriented seated in chair. Patient complains of what she says is a yeast infection. States it started with a small scratch two days ago on her labia now she finds white discharge. Patient denies any urinary symptoms, back pain, nausea, vomiting, diarrhea, or any signs of systemic infection. Patient says she has not had a yeast infection before.Patient pink warm dry secondary exam unremarkable. [facility] prescribes medication to patient local pharmacy. Red flags and patient education discussed. Consent uploaded in docs Duty Engineer Allergies: Metronidazole ................... ................... ................... ................... ................... ................... ................... ........ Disposition: Fulfilled Wayne Flowers MD [address] [facility],[address], [place], [address], [employer] SAINZ 02/03/2024 16:41:30 04/24/2024 text/html HPI: Pt reports falling forward while standing to wipe self after commode use. Pt was using a walker to lean forward with . Walker turned over forward and Pt went to floor. Pt didn't hit head but, reports twisting right knee and hurting both great toes. Pt also reports further low back pain as well. Pt was not able to get back up and crawled to living room where Pt used something there to be able to get up off knees. Pt is unable to come to facility at this time. Pt requests visit in home to assess injuries. ................... ................... ................... ................... ................... ................... ................... ........ [facility] Nurse Triage Notes (Shabnam Oseguera): Chief Complaints: Falls PMH: Hypertension, Depression, Diabetes Mellitus Type 1, Fibromyalgia, Obesity, Post-Traumatic Stress Disorder (PTSD) Comments: [facility] RN DID NOT NEED FURTHER INFO ................... ................... ................... ................... ................... ................... ................... ........ Duty Engineer Note From Junito Engel: [employer] visit for female pt. Pt presents reporting fall earlier today while transitioning from commode to walker. Pt reports she hadn't set the brake on her walker and it kicked out on her. Pt fell forward breaking her fall with her hands but landing heavily on right knee. Pt has right foot drop at baseline and frequent falls. Pt reporting severe pain in right knee. No reported OTC remedies tried or taken. Pt localized to lateral aspect of tibia and few inches below the patella. Tender on palpation. No noted deformity or obvious swelling. Images taken for [facility]. Consulted with [facility] Dr. Ch. Dr. Ch advised ice and follow up with PCP. Pt told she can take tylenol or ibuprofen. Reviewed red flags for ED. Pt education provided. ................... ................... ................... ................... ................... ................... ................... ........ [facility] Consulted: Cora Ch ................... ................... ................... ................... ................... ................... ................... ........ Disposition: Fulfilled Cora Ch MD [address] [facility],[address] [facility], [place], [address], [employer] 04/24/2024 19:25:49 OBGyn Episode No OBEpisode recorded.
--- OUTSIDE RECORDS SUMMARY | 2024-08-02 02:31 | XMS_ITS | Encounter Summary ---
Author Organization [employer] Address [address] [place] [address] Care Team Providers Care Industrial Maintenance Mechanic Name Role Phone Sunitha Rosales MD Primary Care Provider [phone] Huan Holman PharmD Unavailable [phone] Reason for Visit * Reason Onset Date Comments Medication Question 02/24/2024 Encounter Details Date Type Department Care Team ([facility] st Contact Info) Description 02/24/2024 Telephone [facility] [address] [place], [place] [phone] Sunitha Rosales MD [address] [place], [place] [phone] Medication Question Social History Tobacco Use Types Packs/Day Years Used Date Smoking Tobacco: Never Passive Smoke Exposure: Never Smokeless Tobacco: Never Depression Answer Date Recorded Patient Health Questionnaire-9 Score 12 02/02/2024 Patient Health Questionnaire-9 Score 12 02/02/2024 Last PHQ-9: Questionnaire Data Not on file 0 02/02/2024 Housing Stability Answer Date Recorded What is your housing situation today? I have veronica tovar 02/02/[address] you li ve. Do you have problems with any of the following? None of the above 02/02/2024 Food Insecurity Answer Date Recorded Within the past 12 months, y ou worried that your food would run out before you got money to buy more: Sometimes True 2023 Within the past 12 months,th e food you bought just didn't last and you didn't have enough money to get more: Sometimes True 02/02/2024 Transportation Answer Date Recorded In the past 12 months, has l ack of transportation kept you from medical appts, meetings, work or from getting things needed for daily living? No 02/02/2024 Utilities Answer Date Recorded In the past 12 months, has t he electric, gas, oil or water company threatened to shut off services in your home? No 02/02/2024 Depression Answer Date Recorded Patient Health Questionnaire-2 Score 2 02/02/2024 Internet Access Answer Date Recorded Internet Access Q1 Yes 02/21/2024 Internet Access Q2 Not on file 02/21/2024 Comments Unknown Sex and Gender Information Value Date Recorded Sex Assigned at Female 04/20/2022 10:15 AM EDT Legal Sex Female 10:15 AM EDT Gender Identity Female 04/20/2022 10:15 AM EDT Sexual Orientation Straight 04/20/2022 10 :15 AM EDT documented as of this encounter Miscellaneous Notes * Telephone Encounter - Teresa Monterroso RN - 03/07/2024 9:13 AM EDT Triage call regarding Pt portal message below. Pt canceled apt today with PCP due to gas pains . Pt reports for 3 days has had increasing gas pains which are causing a great deal of discomfort. Ptreports BM yesterday which was slightly constipated. Pt doesn't want to take medication for constipation and is finding prune juice effective. Pt is advised to increase liquid intake. Pt drinks mainly water and milk. Pt ate corn flakes for breakfast yesterday and ate spaghetti and chicken for afternoon meal. Pt has eaten corn flakes this morning as well. Pt has been taking simethicone with some effect. Pt requests to reschedule apt. Pt is advised will have to send this information to Dr. Rosales 's nursing team to reschedule for annual CCA clearance apt which had been rescheduled from 11/29/23 also. Pt agrees. Pt is offered to come to [place] today for present symptoms. Advised [facility]IC is open till 8pm today. Pt reports will go if needed. Pt agrees with plan and disposition. Insurance is verified as active. Protocol Used: Abdominal Pain - Female (Adult) Protocol-Based Disposition: See in Office or Video Visit Today Video visit not offered Positive Triage Question: * Moderate pain (e.g., interferes with normal activities that comes and goes (cramps) lasts > 24hours (Exception: Pain with Vomiting or Diarrhea - see that Protocol.) * All higher-acuity triage questions were negative Care Advice Discussed: * Drink Clear Fluids Hi!I canceled my appointment today cause I ve been for three days with intestinal gas pain that hurts a lot .Today I woke up with a lot of pain and I took Motrin 800 mg and I still feel the pain .Youcan call me by video call if you send me the link or phone call and give me another appointment. * Telephone Encounter - Sunitha Rosales MD - 02/25/2024 11:16 AM EDT Prescribed * Telephone Encounter - Brittany Davis - 02/24/2024 11:25 AM EDT Tc from pt calling to inform is having an MRI done on 03/01/24 and would like to see if pcp can prescribe anxiety med to relax her that day. documented in this encounter Plan of Treatment Not on file documented as of this encounter Goals Goal Patient Goal Type Associated Problems Recent Progress Patient-Stated? Author Blood Pressure < 140/90 Blood Pressure 137/74(2023 11:35 AM EDT) No Huan Holman PharmD Hemoglobin A1c < 7 Result Component 5.4( 9:49 AM EST) No Huan Holman PharmD documented as of this encounter Visit Diagnoses Not on filedocumented in this encounter Additional Health Concerns Assessment Noted Time PHQ-9 Depression Total Score: 12 024 12:14 PM EDT documented as of this encounter Care Teams Industrial Maintenance Mechanic Relationship Specialty Start Date End Date Sunitha Rosales MD [address] [place] [address] PCP - General Family Medicine 03/18/21 Huan Holman PharmD [address] [place] [id number] Pharmacist Internal Medicine 08/17/22 documented as of this encounter
--- OUTSIDE RECORDS SUMMARY | 2024-08-02 02:31 | XMS_ITS | Continuity of Care Document ---
Author Organization [facility], [facility] Address [address] [place] [address] Care Team Providers Care Entertainment Director Name Role Phone [facility] OTHER Assessment No assessment recorded. Plan of Treatment Reminders Order Date Submit Date Provider Last Modified By Organization Details Last Modified Time Details Appointments None record ed. Lab None record ed. Referral None record ed. Procedures None record ed. Surgeries None record ed. Imaging None record ed. Medication Orders None record ed. Patient TargetsNo targets recorded. Patient InstructionsNo instructions recorded. Reason for Referral None Reported. Problems Name Problem SNOMED Code Status Onset Date Resolution Date Notes Provider Name and Address Organization Details Recorded Time Asthenia 85523775 Active 2024 Miroslava Pleitez NP [address] , [address], [place], [address], [employer] 5 13:00:10 Bilateral foot drop 8304912056454 9103 Active 2024 Miroslava Pleitez NP [address] , [address], [place], [address], [employer] 5 13:00:22 Constipatio n 31585828 Active 2024 Miroslava Pleitez NP [address], [address], [place], [address], [employer] 5 13:00:30 Gastroesoph ageal reflux disease 457368657 Active 2024 Miroslava Pleitez NP [address], [address], [place], [address], [employer] 5 13:02:18 Diabetes mellitus 99945495 Active 2024 Miroslava Pleitez NP [address], [address], [place], [address], [facility] 5 13:02:39 Polycystic ovary syndrome 360628287 Active 2024 Miroslava Pleitez NP [address] [facility], [place], [address], [facility] 5 13:02:57 Posttraumat ic stress disorder 19912795 Active 2024 Miroslava Pleitez NP [address] [facility], [place], [address], [facility] [employer] [facility] 5 13:03:07 Fibromyalgi a 800046237 Active 2024 Miroslava Pleitez NP [address] [facility], [place], [address], [facility] 5 13:03:16 Hypothyroid ism 93074780 Active 2024 Miroslava Pleitez NP [address] [facility], [place], [address], [facility] [facility] 5 13:03:31 Fall Active 2024 Miroslava Pleitez NP [address] [facility], [place], [address], [facility] 5 13:04:06 Migraine 65089620 Active 2024 Miroslava Pleitez NP [address] [facility], [place], [address], [facility] 5 13:24:05 Hypertensiv e disorder 24968318 Active 2024 Miroslava Pleitez NP [address] [facility], [place], [address], [facility] 5 13:29:51 Hyperlipide ion 44874016 Active 2024 Miroslava Pleitez NP [address] [facility], [place], [address], [employer] [facility] 5 13:31:54 Vitamin D deficiency 14655839 Active 2024 Inze Acevedo MD [address] [facility], [place], [address] , [employer] [facility] 15:06:46 Problem Notes None recorded. Medical Equipment None Reported. Allergies Allergen ID Allergen Name Allergen Category Reaction Reaction Severity Criticality Documentation Date Start Date Code Code System Note Provider Name and Address Organization Details Recorded Time 13926 metronida zole medicatio n Not available Not available high 07/31/20242023 6922 RxNorm Not Available Not Available Not Available 42764 aripipraz ole medicatio n itching mild low 07/31/20242023 34221 RxNorm Not Available Not Available Not Available 90104 bacitraci n medicatio n Not available Not available high 07/31/20242023 1291 RxNorm Not Available Not Available Not Available 25597 iopromide medicatio n Not available Not available low 07/31/20242023 48597 RxNorm Not Available Not Available Not Available 34073 loperamid e medicatio n Not available Not available Not available 07/31/2024 6468 RxNorm Not Available Not Available Not Available 96640 neomycin medicatio n Not available Not available Not available 07/31/20242014 7299 RxNorm Other react ion(s ): burni ng Not Available Not Available Not Available 16721 polymyxin B medicatio n Not available Not available Not available 07/31/2024 8536 RxNorm Not Available Not Available Not Available 56104 risperido ne medicatio n Not available Not available high 07/31/20242023 77138 RxNorm Not Available Not Available Not Available Vitals Date Recorded Heart rate Respiratory rate Body temperature Oxygen saturation Oxygen saturation in Arterial blood by Pulse oximetry Systolic blood pressure Diastolic blood pressure Provider Name and Address Organization Details Last Updated DateTime 82 /min 18 /min 98.2 [degF] 95 % 95 % 96 mm[Hg] 60 mm[Hg] Miroslava Pleitez NP [address] [facility], [place], [address], [facility] [employer] [facility] 5 12:15:54 Social History Question Answer Notes LastModified by Organizat ion Details LastModified Time Tobacco Smoking Status Never Smoker Miroslava Pleitez, JAXSON [address] [facility], [place], [address], [facility] - [facility] 07/26/2024 12:22:35 Do You Have An Advance Directive? Yes Information not available 07/31/2024 What Is Your Level Of Alcohol Consumption? None Information not available 07/26/2024 What Is Your Code Status? Full Code No Cpap Information not available 07/26/2024 Where Do You Live? Apartment 2 Levels, With Stairs To Her Bedroom Information not available 07/31/2024 Legal Guardian? No Informati on not available 07/31/2024 Do You Have A Medical Power Of Chief Compliance Officer? Yes Information not available 07/31/2024 What Was The Date Of Your Most Recent Tobacco Screening? 07/26/2024 Information not available 07/26/2024 Do You Have An Out Of Hospital DNR? No Information not available 07/26/2024 What Is Your Relationship Status? Ex- Helps A Lot Information not available 07/31/2024 Do You Feel Stressed (tense, Restless, Nervous, Or Anxious, Or Unable To Sleep At Night)? [id number] Information not available 07/26/2024 Do You Use Any Illicit Or Recreational Drugs? No Information not available 07/26/2024 Has Tobacco Cessation Counseling Been Provided? No N/a As Pt Is A Non-smoker Information not available 07/31/2024 Do You Have Any Dietary Restrictions? No Information not available 07/26/2024 Do You Or Have You Ever Used Any Other Forms Of Tobacco Or Nicotine? No Information not available 07/26/2024 Sex: Female Functional Status None recorded. Mental Status None recorded. Family History Nothing Reported Notes:father florecita ne, diabetes, mother cancer, htn, thyroid disease, cervical ca, dementia sister: breast ca Medical History No medical history recorded. Gynecological HistoryNo gynecological history recorded. Obstetrics History GPAL:G 0 P 0 0 0 0 Immunizations Vaccine Type Date Status Note Provider Nam e and Address Organization Details Recorded Time Hep B, unspecified formulation 8 completed Sarah Edy null, [facility] 07/25/2024 14:42:01 Hep B, unspecified formulation 8 completed Sarah Edy null, [facility] 07/25/2024 14:42:12 Hep B, unspecified formulation 8 completed Sarah Edy null, [facility] 07/25/2024 14:42:22 DTaP, unspecified formulation 8 completed Sarah Edy null, [facility] 07/25/2024 14:42:53 DTaP, unspecified formulation 8 completed Sarah Edy null, [facility] 07/25/2024 14:43:13 DTaP, unspecified formulation 9 completed Sarah Edy null, [facility] 07/25/2024 14:43:25 DTaP, unspecified formulation 2 completed Sarah Edy null, [facility] 07/25/2024 14:43:38 DTaP, unspecified formulation 4 completed Sarah Edy null, [facility] 07/25/2024 14:43:47 Tdap 9 completed Sarah Edy null, [facility] 07/25/2024 14:44:06 Tdap 8 completed Sarah Edy null, [facility] 07/25/2024 14:44:15 Td(adult) unspecified formulation 5 completed Sarah Edy null, [facility] 07/25/2024 14:44:32 Td(adult) unspecified formulation 7 completed Sarah Edy null, [facility] 07/25/2024 14:44:53 Pneumococcal conjugate PCV 13 3 completed Sarah Edy null, [facility] 07/25/2024 14:45:08 influenza, unspecified formulation 3 completed Sarah Edy null, [facility] 07/25/2024 14:45:27 MMR 9 completed Sarah Edy [facility] 07/25/2024 14:45:52 MMR 2 completed Sarah Snow [facility] 07/25/2024 14:46:00 Hep A, unspecified formulation 8 completed Sarah Snow [facility] 07/25/2024 14:46:26 Hep A, unspecified formulation 8 completed Sarah Snow [facility] 07/25/2024 14:46:34 SARS-COV-2 (COVID-19) vaccine, UNSPECIFIED 1 completed Sarah Snow [facility] 07/25/2024 14:54:26 SARS-COV-2 (COVID-19) vaccine, UNSPECIFIED 1 completed Sarahlars Snow [facility] 07/25/2024 14:54:32 Past Encounters Encounter ID Performer Location Encounter Start Date Encounter Closed Date Diagnosis/Indication Diagnosis SNOMED-CT Code Diagnosis ICD10 Code Diagnosis Note [id number] Miroslava Pleitez NP [address] [address] 07/26/2024 11:26:00 07/28/2024 13:07:45 Bilateral foot drop [id number] 0975806 M21.371 bilateral foot drop likely since 2021 with hx of lower leg weakness and fallshad neurology workup without definitive diagnosisn eurology rec:2/5 rec fu with outpt neurologis t and see if emg study done, rec 2-3 weeksmonit or Asthenia 27359549 R53.1 weakness with foot drop and lower leg weakness since 2021 now much worseFull neurology workup per hospital summary and no diagnostic causept ot eval and treatchole calciferol 50 mcg qammonitor Fall W19.XXXD weakness with foot drop and lower leg weakness since 2021 now much worseFull neurology workup per hospital summary and no diagnostic causept ot eval and treatsuppo rtive caremonito r Diabetes mellitus 132267 09 E11.9 ozempic 0.5 mg sc q weekmetfor min 500 mg ER po 1000 mg po bidmonitor Gastroesop hageal reflux disease 264808268 K21.00 omeprazole 20 mg po qdmonitor Fibromyalgia 954075286 M 79.7 gabapentin 300 mg po qhsibuprof en 600 mg po q 8 hours prnmonitor Posttrauma tic stress disorder 39761038 F43.10 bupropion 150 mg po er q amtrazodon e 50 mg po qhsmonitor Polycystic ovary syndrome 450851075 E28.2 hx ofmonitor Hypothyroidism 36863229 E03.9 levothyrox ine 88 mcg po qdtsh level with labsmonito r prn Constipation 09229671 K5 9.00 Has hx of IBS with constipati on and one episode of vomitingnu rsing gave house bowel protocol without results2/5 give bisacodyl 5 mg po and supp today with zofrandocu sate 200 mg po qhsif no results from bisacodyl supp and po will give mag citrate 1/2 bottlemoni torcbc and bmp weekly x 3 Migraine 82215821 G43.90 9 emgality 120mg sc q monthribof tonya 200 mg po bidmonitor Hypertensive disorder 38 316741 I10 chlorthali done 25mg po qdlisinopr il 10 mg po qdmonitor Hyperlipidemia 65645622 E78.5 hx ofatorvast atin 40 mg po qhsmonitor [id number] Miroslava Pleitez NP [address] [address] 07/28/2024 11:50:49 08/01/2024 13:41:27 Constipation 17140742 K59.00 Has hx of IBS with constipati on and one episode of vomitingnu rsing gave house bowel protocol without results nausea and vomiting resolved, with recent bm'sKUB noted for stool, has had bm since07/28 contdocusa te 200 mg po qhsmonitor cbc and bmp weekly x 3 Health Concerns Section Related Observation LastModified by Organization Detai ls LastModified Time None Recorded Concern Status LastModified by Organization Details LastModified Time None Recorded Payers Encounter Date Sequence Insurance Name Policy Number Policy Nuñez Covered Member ID Nuñez Member ID Guarantor Name 07/28/2024 1 [facility] - DOS ON OR AFTER 2022 - MEDICARE ADVANTAGE [place] (MEDICARE REPLACEMENT/ADV ANTAGE - PPO) Georgia Muñoz [id number] Muñoz Notes Date Note Type Note Provider Name and Address Organization Details Recorded Time 07/28/2024 text/html Pt is seen for a n acute visit. PMH: bilateral foot drop, constipation, IBS, GERD, DM2, PCOS, PTSD, fibromyalgia, hypothryroid, hx of fibroadenoma of breast Pt is seen in fu of her vomiting and constipation. She had received multiple po meds including senna, bisacodyl, mom, suppository, and mag citrate in the last few days and eventually had a large bm on 07/27 around 7 pm and another after her kub around 8 pm even larger. Her last bm prior was on wednesday approx 5 days prior. On exam, She feels much better, no vomiting, nausea, or abd pain or distension today. 07/27 KUB was ordered and unremarkable except moderate amount of stool of note;She was admitted on 07/21/24 for fall and weakness unable to functiojn at home dx with UTI. It was felt she could benefit from rehab.Workup: She has been followed by neurology prior to hospitalization and in hospital. VIral studies including covid/flu negative.Lumbosacral MRI negative for acute concerns. Xray negative for acute changes with lower legs. UA not infectious but treated for UA, ? Culture.She states she has not walked since 2021 correctly. She states two months ago she could slide her feet with rollator which she cannot do now. Her [employer] is sick and has not been able to help.She was seen by Dr Ulloa, neurology and recommends calling her neurologist to see if emg nerve conduction study was done? [place] not suggestive of [place] type of syndrome and likely somatization.All medications continued and no new meds started during stay.She has an AFO however while working with therapy it seems it is too heavy for her to lift. Miroslava Pleitez, JAXSON [address] [facility], [place], [address], [facility] - [employer] 07/28/2024 12:23:00 OBGyn Episode No OBEpisode recorded.
--- OUTSIDE RECORDS SUMMARY | 2024-08-02 02:31 | XMS_ITS | Continuity of Care Document ---
Author Organization [facility], [facility] Address [address] [place] [address] Care Team Providers Care Warp Dyeing Tender Name Role Phone [facility] - 2ND FLOOR OTHER Assessment No assessment [...] and Address Organization Details Recorded Time Asthenia 73287321 Active 2024 Miroslava Pleitez NP [address] , [address], [place], [address], [email or web address] 5 13:00:10 Bilateral foot drop 6458613377685 9103 Active 2024 Miroslava Pleitez NP [address] , [address], [place], [address], [email or web address] 5 13:00:22 Constipatio n 24277910 Active 2024 Miroslava Pleitez NP [address], [address], [place], [address], [email or web address] 5 13:00:30 Gastroesoph ageal reflux disease 898404915 Active 2024 Miroslava Pleitez NP [address], [address], [place], [address], [employer] 5 13:02:18 Diabetes mellitus 96646526 Active 2024 Miroslava Pleitez NP [address], [address], [place], [address], [facility] 5 13:02:39 Polycystic ovary syndrome 832252502 Active 2024 Miroslava Pleitez NP [address], [address], [place], [address], [facility] 5 13:02:57 Posttraumat ic stress disorder 10963062 Active 2024 Miroslava Pleitez NP [address], [address], [place], [address], [facility] 5 13:03:07 Fibromyalgi a 593548472 Active 2024 Miroslava Pleitez NP [address], [address], [place], [address], [facility] 5 13:03:16 Hypothyroid ism 65597378 Active 2024 Miroslava Pleitez NP [address], [address], [place], [address], [facility] 5 13:03:31 Fall Active 2024 Miroslava Pleitez NP [address], [address], [place], [address], [facility] 5 13:04:06 Migraine 82266632 Active 2024 Miroslava Pleitez NP [address], [address], [place], [address], [facility] 5 13:24:05 Hypertensiv e disorder 88357191 Active 2024 Miroslava Pleitez NP [address], [address], [place], [address], [facility] 5 13:29:51 Hyperlipide ion 39082174 Active 2024 Miroslava Pleitez NP [address], [address], [place], [address], [facility] 5 13:31:54 Vitamin D deficiency 61078965 Active 2024 Inez Acevedo MD [address], [address], [place], [address], [facility] 15:06:46 Problem Notes None recorded. Medical Equipment None Reported. Allergies Allergen ID Allergen Name Allergen Category Reaction Reaction Severity Criticality Documentation Date Start Date Code Code System Note Provider Name and Address Organization Details Recorded Time 84114 metronida zole medicatio n Not available Not available high 07/31/20242023 6922 RxNorm Not Available Not Available Not Available 93461 aripipraz ole medicatio n itching mild low 07/31/20242023 71399 RxNorm Not Available Not Available Not Available 45162 bacitraci n medicatio n Not available Not available high 07/31/20242023 1291 RxNorm Not Available Not Available Not Available 19954 iopromide medicatio n Not available Not available low 07/31/20242023 75270 RxNorm Not Available Not Available Not Available 64711 loperamid e medicatio n Not available Not available Not available 07/31/2024 6468 RxNorm Not Available Not Available Not Available 07305 neomycin medicatio n Not available Not available Not available 07/31/20242014 7299 RxNorm Other react ion(s ): burni ng Not Available Not Available Not Available 12782 polymyxin B medicatio n Not available Not available Not available 07/31/2024 8536 RxNorm Not Available Not Available Not Available 56218 risperido ne medicatio n Not available Not available high 07/31/20242023 12880 RxNorm Not Available Not Available Not Available Vitals Date Recorded Body weight Heart rate Respiratory rate Body temperature Oxygen saturation Oxygen saturation in Arterial blood by Pulse oximetry Systolic blood pressure Diastolic blood pressure Provider Name and Address Organization Details Last Updated DateTime 5 628017. 09 g 88 /min 18 /min 98 [degF] 96 % 96 % 131 mm[Hg] 94 mm[Hg] Miroslava Pleitez NP [address], [address], [place], [address], [email or web address] 12:19:30 Social History Question Answer Notes LastModified by Organizat ion Details LastModified Time Tobacco Smoking Status Never Smoker Miroslava Pleitez, JAXSON [address], [address], [place], [address], [facility] 07/26/2024 12:22:35 Do You Have An [...] Do You Have A Medical Power Of Jet Pilot? Yes Information not available 07/31/2024 What Was The Date Of Your Most Recent Tobacco Screening? 07/26/2024 Information not available 07/26/2024 Do You Have An Out Of Hospital DNR? No Information not available 07/26/2024 What Is Your Relationship Status? Ex- Helps A Lot Information not available 07/31/2024 Do You Feel Stressed (tense, Restless, Nervous, Or Anxious, Or Unable To Sleep At Night)? [id number] Information not available 07/26/2024 Do You Use [...] unspecified formulation 8 completed Sarah Edy null, [facility] 07/25/2024 14:42:01 Hep B, unspecified formulation 8 completed Sarah Edy null, [facility] 07/25/2024 14:42:12 Hep B, unspecified formulation 8 completed Sarah Edy null, [facility] 07/25/2024 14:42:22 DTaP, unspecified formulation 8 completed Sarah Edy null, [facility] 07/25/2024 14:42:53 DTaP, unspecified formulation 8 completed Sarah Edy null, [facility] 07/25/2024 14:43:13 DTaP, unspecified formulation 9 completed Sarah Edy null, [facility] 07/25/2024 14:43:25 DTaP, unspecified formulation 2 completed Sarah Edy null, [facility] 07/25/2024 14:43:38 DTaP, unspecified formulation 4 completed Sarah Edy null, [facility] 07/25/2024 14:43:47 Tdap 9 completed Sarah Edy null, [facility] 07/25/2024 14:44:06 Tdap 8 completed Sarah Edy null, [facility] 07/25/2024 14:44:15 Td(adult) unspecified formulation 5 completed Sarah Edy null, [facility] 07/25/2024 14:44:32 Td(adult) unspecified formulation 7 completed Sarah Edy null, [facility] 07/25/2024 14:44:53 Pneumococcal conjugate PCV 13 3 completed Sarah Edy null, [facility] 07/25/2024 14:45:08 influenza, unspecified formulation 3 completed Sarah Edy null, [facility] 07/25/2024 14:45:27 MMR 9 completed Sarah Edy [facility] 07/25/2024 14:45:52 MMR 2 completed Sarah Snow [facility] 07/25/2024 14:46:00 Hep A, unspecified formulation 8 completed Sarah Snow [facility] 07/25/2024 14:46:26 Hep A, unspecified formulation 8 completed Sarah Snow [facility] 07/25/2024 14:46:34 SARS-COV-2 (COVID-19) vaccine, UNSPECIFIED 1 completed Sarahlars Snow [facility] 07/25/2024 14:54:26 SARS-COV-2 (COVID-19) vaccine, UNSPECIFIED 1 completed Sarahlars Snow [facility] 07/25/2024 14:54:32 Past Encounters Encounter ID Performer Location Encounter Start Date Encounter Closed Date Diagnosis/Indication Diagnosis SNOMED-CT Code Diagnosis ICD10 Code Diagnosis Note [id number] Miroslava Pleitez NP [address] [address] 07/26/2024 11:26:00 07/28/2024 13:07:45 Bilateral foot drop 7916051065 2503793 M21.371 bilateral foot drop likely since 2021 with hx of lower leg weakness and fallshad neurology workup without definitive diagnosisn eurology rec:2 rec fu with outpt neurologis t and see if emg study done, rec 2-3 weeksmonit or Asthenia 50823519 R53.1 weakness with foot drop and lower [...] and treatsuppo rtive caremonito r Diabetes mellitus 178494 09 E11.9 ozempic 0.5 mg sc q weekmetfor min 500 mg ER po 1000 mg po bidmonitor Gastroesop hageal reflux disease 186575911 K21.00 omeprazole 20 mg po qdmonitor Fibromyalgia 548417112 M 79.7 gabapentin 300 mg po qhsibuprof en 600 mg po q 8 hours prnmonitor Posttrauma tic stress disorder 86285352 F43.10 bupropion 150 mg po er q amtrazodon e 50 mg po qhsmonitor Polycystic ovary syndrome 632455019 E28.2 hx ofmonitor Hypothyroidism 34109218 E03.9 levothyrox ine 88 mcg po qdtsh level with labsmonito r prn Constipation 82590540 K5 9.00 Has hx of IBS with constipati on and one episode of vomitingnu rsing gave house bowel protocol without results2/5 give bisacodyl 5 mg po and supp today with zofrandocu sate 200 mg po qhsif no results from bisacodyl supp and po will give mag citrate 1/2 bottlemoni torcbc and bmp weekly x 3 Migraine 74221864 G43.90 9 emgality 120mg sc q monthribof tonya 200 mg po bidmonitor Hypertensive disorder 38 867069 I10 chlorthali done 25mg po qdlisinopr il 10 mg po qdmonitor Hyperlipidemia 96663755 E78.5 hx ofatorvast atin 40 mg po qhsmonitor Health Concerns Section Related Observation LastModified by Organization Detai ls LastModified Time None Recorded Concern Status LastModified by Organization Details LastModified Time None Recorded Payers Encounter Date Sequence Insurance Name Policy Number Policy Nuñez Covered Member ID Nuñez Member ID Guarantor Name 07/26/2024 1 [facility] - DOS ON OR AFTER 2022 - MEDICARE [place]VANTAGE [place] (MEDICARE REPLACEMENT/ADV ANTAGE - PPO) Georgia Muñoz [id number] Georgia Muñoz Notes Date Note Type Note Provider Name and Address Organization Details Recorded Time 07/26/2024 text/html Pt is seen for a n initial intake. PMH: bilateral foot drop, constipation, IBS, GERD, DM2, PCOS, PTSD, fibromyalgia, hypothryroid, hx of fibroadenoma of breast She was admitted on 07/21/24 for fall and weakness unable to functiojn at home dx with UTI. It was felt she could benefit from rehab. She states she has not walked since 2021 correctly. She states two months ago she could slide her feet with rollator which she cannot do now. 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 Workup: She has been followed by neurology prior to hospitalization and in hospital. VIral studies including covid/flu negative.Lumbosacral MRI negative for acute concerns. Xray negative for acute changes with lower legs. UA not infectious but treated for UA, ? Culture.She was seen by Dr Ulloa, neurology and recommends calling her neurologist to see if emg nerve conduction study was done? Witt not suggestive of Guillian Harlingen type of syndrome and likely somatization. All medications continued and no new meds started. She has an AFO however while working with therapy it seems it is too heavy for her to lift. On exam, Pt is alert and oriented somewhat vague historian about events of leg weakness workup. She has notable foot drop bilaterally and absent deep tendon flexes. She is not able to plantar or dorsi flex her feet. She denies any urinary symptoms. She does report vomiting x 1 today and no bm since Wednesday which was a normal stool. Nursing gave her multiple bowel meds and she just received zofran, bisacodyl po and supp as requested. Miroslava Pleitez NP [address], [address], [place], [address], [facility] - [email or web address] 07/26/2024 13:47:48 OBGyn Episode No OBEpisode recorded.
--- OUTSIDE RECORDS SUMMARY | 2024-08-02 02:31 | XMS_ITS | Encounter Summary ---
Author Organization [employer] Address [address] 7[address] [place] [address] Care Team Providers Care Glaze Maker Name Role Phone Sunitha Rosales MD Primary Care Provider [phone] Huan Holman PharmD Unavailable [phone] Reason for Referral * Medications - Closed Specialty Diagnoses / Procedures Referred By Contac t Referred To Contact Diagnoses Type 2 diabetes mellitus with hyperglycemia, with long-term current use of insulin (CMS/HCC) Sunitha Rosales MD [address] [place] [address] Phone: tel: fax: Referral ID Status Reason Start Date Expiration Date Visits Re quested Visits Authorized [id number] Closed 03/09/2024 03/09/2025 1 1 Encounter Details Date Type Department Care Team (Late st Contact Info) Description 02/25/2024 Orders Only [facility] MED[facility] [address] [place] [phone] Sunitha Rosales MD [address] [place] [address] Type 2 diabetes mellitus with hyperglycemia, with long-term current use of insulin (CMS/HCC) Social History Tobacco Use Types Packs/Day Years Used Date Smoking Tobacco: Never Passive Smoke Exposure: Never Smokeless Tobacco: Never Depression Answer Date Recorded Patient Health Questionnaire-9 Score 12 02/02/2024 Patient Health Questionnaire-9 Score 12 02/02/2024 Last PHQ-9: Questionnaire Data Not on file 0 02/02/2024 Housing Stability Answer Date Recorded What is your housing situation today? I have veronica sing 02/02/[address] you li [...] Pressure 137/74(2023 11:35 AM EDT) No Huan Holman, PharmD Hemoglobin A1c < 7 Result Component 5.4( 9:49 AM EST) No Huan Holman PharmD documented as of this encounter Visit Diagnoses Diagnosis Type 2 diabetes mellitus with hyperglycemia, with long-term current use of insulin ([facility]) documented in this encounter Additional Health Concerns Assessment Noted Time PHQ-9 Depression Total Score: 12 024 12:14 PM EDT documented as of this encounter Care Teams Glaze Maker Relationship Specialty Start Date End Date Sunitha Rosales MD [address] [place] [address] PCP - General Family Medicine 03/18/21 Huan Holman, YairD [address] [place] [address] Pharmacist Internal Medicine 08/17/22 documented as of this encounter
--- OUTSIDE RECORDS SUMMARY | 2024-08-02 02:32 | XMS_ITS | Encounter Summary ---
Author Organization [employer] Address [address] [place] [address] Care Team Providers Care Wide Piece Goods Inspector Name Role Phone Sunitha Rosales MD Primary Care Provider [phone] Huan Holman PharmD Unavailable [phone] Reason for Visit * Reason Onset Date Comments Nurse Triage 08/17/2023 Encounter Details Date Type Department Care Team (Late st Contact Info) Description 08/17/2023 Telephone [facility] MEDICINE [address] [place], [place] [phone] Sunitha Rosales MD [address] [place], [place] [phone] Nurse Triage Social History Tobacco Use Types Packs/Day Years Used Date Smoking Tobacco: Never Passive Smoke Exposure: Never Smokeless Tobacco: Never Depression Answer Date Recorded Patient Health Questionnaire-9 Score 8 01/19/2023 Housing Stability Answer Date Recorded What is your housing situation today? I have veronica tovar 04/09/[address] you li ve. Do you have problems with any of the following? None of the above 04/09/2023 Food Insecurity Answer Date Recorded Within the past 12 months, y ou worried that your food would run out before you got money to buy more: Never True 04/09/2023 Within the past 12 months,th e food you bought just didn't last and you didn't have enough money to get more: Never True Transportation Answer Date Recorded In the past 12 months, has l ack of transportation kept you from medical appts, meetings, work or from getting things needed for daily living? No 04/09/2023 Utilities Answer Date Recorded In the past 12 months, has t he electric, gas, oil or water company threatened to shut off services in your home? No 04/09/2023 Depression Answer Date Recorded Patient Health Questionnaire-2 Score 2 01/19/2023 Comments Unknown Sex and Gender Information Value Date Recorded Sex Assigned at Female 04/20/2022 10:15 AM EDT Legal Sex Female 10:15 AM EDT Gender Identity Female 04/20/2022 10:15 AM EDT Sexual Orientation Straight 04/20/2022 10 :15 AM EDT documented as of this encounter Miscellaneous Notes * Telephone Encounter - Sunitha Rosales MD - 08/17/2023 5:59 PM EST sent * Telephone Encounter - Pat Banerjee RN - 08/17/2023 1:11 PM EST Called pt. Via [employer] teacher [id number] Ryan. [employer] teacher unable to load system and asked me to call back. Called back [employer] x2. [phone] Alan. Alan is asking me to hold on while his system loads. Pt. States that she started having stomach pains and cramping in her belly. Pt. Pain was so intensethat she felt like she was going to pass out. Pt went to living room and sat down but then vomited.Pt. Only had a piece of cake and some strawberry ice cream prior to getting abdominal pain. Pt. States that after that she had a BM and became dizzy. Pt went to lay down and drink water but, she is still having cramping and pain in her stomach. This am pt. Had 3 bites of cereal and a small cup of coffee. Pt. Just had a cup of chamomile tea and some ensure. Pt. Has pain near her belly button and above belly button. Pt. Does not feel a hard lump in area. Pt asking if she should take Omeprazole and a laxative. I asked pt. How her BM was yesterday and she said that she had a soft medium sized BM yesterday that was WNL. Pt. Is diabetic. Pt. States her sensor is broken and she is meeting with Huan tomorrow morning to go over her Diabetic supply needs. Pt does not think this is related to blood sugar. Advised pt. To drink fluids for today. Pt is to drink gatorade zero, sugar free jann jazzy,and chamomile tea without sugar. Offered for pt. To come to office today but pt. Declines. Advised pt that she can have saltine crackers or oyster crackers in small amounts as tolerated. I see that pt. Has omeprazole and 3 different stool softeners in med list. I advised pt. That she should rest her belly today but if she wants to take one Omeprazole or one stool softener that it is up to her to d ecide. No blood in stool and no blood when pt. Vomited x1 yesterday. I advised that a stomach bug is going around and to come in if she feels worse to walk in either today or tomorrow. Offered pt. That if she needs a ride, she can call us to set up and Uber for her to come to [facility]. Pt. Denies any dizziness at present no SOB and she is now stating that her stomach pain is starting to subside after our 45 minute call. Pt. Is requesting that some Hemorrhoidal cream be sent to Pharmacy as she has Hemorrhoids x 4 days. Will send request to PCP for hemorrhoidal cream to be sent to Pharmacy. Protocol Used: Abdominal Pain - Female (Adult) Protocol-Based Disposition: See in Office or Video Visit Today- Pt declines- Advised walk in at [facility] from 830am-730pm today and tomorrow. Video visit not offered Positive Triage Question: * Moderate pain (e.g., interferes with normal activities that comes and goes (cramps) lasts > 24hours (Exception: Pain with Vomiting or Diarrhea - see that Protocol.) * All higher-acuity triage questions were negative Care Advice Discussed: * Rest * Drink Clear Fluids * Pass a Stool * Telephone Encounter - Annel Trevin - 08/17/2023 1:06 PM EST Symptom: Abdominal Pain - Female - Not Outcome: Talk to a nurse or provider within 15 minutes Reason: Severe pain now The caller accepted this outcome Please contact pt at [phone] (Vincentian) documented in this encounter Plan of Treatment [...] documented as of this encounter Care Teams Wide Piece Goods Inspector Relationship Specialty Start Date End Date Sunitha Rosales MD [address] [place] [address] PCP - General Family Medicine 03/18/21 Huan Holman PharmD [address] [place] [address] Pharmacist Internal Medicine 08/17/22 documented as of this encounter
--- OUTSIDE RECORDS SUMMARY | 2024-08-02 02:32 | XMS_ITS | Encounter Summary ---
Author Organization [employer] Address [address] [place] [address] Care Team Providers Care Salon Sales Consultant Name Role Phone Sunitha Rosales MD Primary Care Provider Huan Holman PharmD Unavailable [phone] Reason for Visit * Reason Comments Med Refill Encounter Details Date Type Department Care Team ([facility] st Contact Info) Description 08/23/2023 Refill [facility] MEDICINE [address] [place], [place] [phone] Sunitha Rosales MD [address] [place], [place] [phone] Social History Tobacco Use Types Packs/Day Years [...] documented as of this encounter Care Teams Salon Sales Consultant Relationship Specialty Start Date End Date Sunitha Rosales MD [address] [place] [address] PCP - General Family Medicine 03/18/21 Huan Holman, Faisal [address] [place] [address] Pharmacist Internal Medicine 08/17/22 documented as of this encounter
--- OUTSIDE RECORDS SUMMARY | 2024-08-02 02:32 | XMS_ITS | Continuity of Care Document ---
Author Organization [facility], [facility] Address [address] [place] [address] Care Team Providers Care Tiler Name Role Phone [facility] OTHER Assessment [...] and Address Organization Details Recorded Time Asthenia 20940843 Active 2024 Miroslava Pleitez NP [address] , [address], [place], [address], [facility] 5 13:00:10 Bilateral foot drop 2525747011213 9103 Active 2024 Miroslava Pleitez NP [address] , [address], [place], [address], [facility] 5 13:00:22 Constipatio n 55170416 Active 2024 Miroslava Pleitez NP [address], [address], [place], [address], [facility] 5 13:00:30 Gastroesoph ageal reflux disease 180786897 Active 2024 Miroslava Pleitez NP [address], [address], [place], [address], [facility] 5 13:02:18 Diabetes mellitus 97470410 Active 2024 Miroslava Pleitez NP [address], [address], [place], [address], [facility] 5 13:02:39 Polycystic ovary syndrome 772154601 Active 2024 Miroslava Pleitez NP [address] [facility], [address], [place], [address], [facility] 5 13:02:57 Posttraumat ic stress disorder 98085246 Active 2024 Miroslava Pleitez NP [address] [facility], [address], [place], [address], [facility] 5 13:03:07 Fibromyalgi a 939610116 Active 2024 Miroslava Pleitez NP [address] [facility], [address], [place], [address], [facility] 5 13:03:16 Hypothyroid ism 04063801 Active 2024 Miroslava Pleitez NP [address] [facility], [address], [place], [address], [facility] 5 13:03:31 Fall Active 2024 Miroslava Pleitez NP [address] [facility], [address], [place], [address], [facility] 5 13:04:06 Migraine 03786283 Active 2024 Miroslava Pleitez NP [address] [facility], [address], [place], [address], [facility] 5 13:24:05 Hypertensiv e disorder 10640823 Active 2024 Miroslava Pleitez NP [address] [facility], [address], [place], [address], [facility] 5 13:29:51 Hyperlipide ion 82560247 Active 2024 Miroslava Pleitez NP [address] [facility], [address], [place], [address], [facility] 5 13:31:54 Vitamin D deficiency 27169888 Active 2024 Inez Acevedo MD [address] [facility], [address], [place], [address] , [facility] 15:06:46 Problem Notes None recorded. Medical Equipment None Reported. Allergies Allergen ID Allergen Name Allergen Category Reaction Reaction Severity Criticality Documentation Date Start Date Code Code System Note Provider Name and Address Organization Details Recorded Time 66006 metronida zole medicatio n Not available Not available high 07/31/20242023 6922 RxNorm Not Available Not Available Not Available 10893 aripipraz ole medicatio n itching mild low 07/31/20242023 74381 RxNorm Not Available Not Available Not Available 21717 bacitraci n medicatio n Not available Not available high 07/31/20242023 1291 RxNorm Not Available Not Available Not Available 49593 iopromide medicatio n Not available Not available low 07/31/20242023 66910 RxNorm Not Available Not Available Not Available 45255 loperamid e medicatio n Not available Not available Not available 07/31/2024 6468 RxNorm Not Available Not Available Not Available 15795 neomycin medicatio n Not available Not available Not available 07/31/20242014 7299 RxNorm Other react ion(s ): burni ng Not Available Not Available Not Available 56484 polymyxin B medicatio n Not available Not available Not available 07/31/2024 8536 RxNorm Not Available Not Available Not Available 15886 risperido ne medicatio n Not available Not available high 07/31/20242023 20082 RxNorm Not Available Not Available Not Available Vitals Date Recorded Body height Body mass index (BMI) Body weight Heart rate Respiratory rate Body temperature Oxygen saturation Oxygen saturation in Arterial blood by Pulse oximetry Systolic blood pressure Diastolic blood pressure Provider Name and Address Organization Details Last Updated DateTime 162.56 cm 42.9 kg/m2 663409. 09 g 76 /min 18 /min 97.8 [degF] 99 % 99 % 118 mm[Hg] 72 mm[Hg] Inez Acevedo MD [address] [facility], [address], [place], [address], [facility] 13:10:03 Social History Question Answer Notes LastModified by Organizat ion Details LastModified Time Tobacco Smoking Status Never Smoker Miroslava Pleitez, JAXSON [address] [facility], [address], [place], [address], [facility] 07/26/2024 12:22:35 Do You Have An Advance [...] Do You Have A Medical Power Of Steam Meter Reader? Yes Information not available 07/31/2024 What Was The Date Of Your Most Recent Tobacco Screening? 07/26/2024 Information not available 07/26/2024 Do You Have An Out Of Hospital DNR? No Information not available 07/26/2024 What Is Your Relationship Status? Ex- Helps A Lot Information not available 07/31/2024 Do You Feel Stressed (tense, Restless, Nervous, Or Anxious, Or Unable To Sleep At Night)? [id number] Information not available 07/26/2024 Do You Use [...] Hep B, unspecified formulation 8 completed Sarah Snow null, [facility] 07/25/2024 14:42:01 Hep B, unspecified formulation 8 completed Sarah Snow null, [facility] 07/25/2024 14:42:12 Hep B, unspecified formulation 8 completed Sarah Edy null, [facility] 07/25/2024 14:42:22 DTaP, unspecified formulation 8 completed Sarah Edy null, [facility] 07/25/2024 14:42:53 DTaP, unspecified formulation 8 completed Sarah Edy null, [facility] 07/25/2024 14:43:13 DTaP, unspecified formulation 9 completed Sarah Edy null, [facility] 07/25/2024 14:43:25 DTaP, unspecified formulation 2 completed Sarah Edy null, [facility] 07/25/2024 14:43:38 DTaP, unspecified formulation 4 completed Sarah Edy null, [facility] 07/25/2024 14:43:47 Tdap 9 completed Sarah Edy null, [facility] 07/25/2024 14:44:06 Tdap 8 completed Sarah Edy null, [facility] 07/25/2024 14:44:15 Td(adult) unspecified formulation 5 completed Sarah Edy null, [facility] 07/25/2024 14:44:32 Td(adult) unspecified formulation 7 completed Sarah Snow null, [facility] 07/25/2024 14:44:53 Pneumococcal conjugate PCV 13 3 completed Sarah Snow null, [facility] 07/25/2024 14:45:08 influenza, unspecified formulation 3 completed Sarah Edy null, [facility] 07/25/2024 14:45:27 MMR 9 completed Sarah Snow [facility] 07/25/2024 14:45:52 MMR 2 completed Sarah Snow [facility] 07/25/2024 14:46:00 Hep A, unspecified formulation 8 completed Sarahlars Snow [facility] 07/25/2024 14:46:26 Hep A, unspecified formulation 8 completed Sarah Snow [facility] 07/25/2024 14:46:34 SARS-COV-2 (COVID-19) vaccine, UNSPECIFIED 1 completed Sarahlars Snow [facility] 07/25/2024 14:54:26 SARS-COV-2 (COVID-19) vaccine, UNSPECIFIED 1 completed [facility] 07/25/2024 14:54:32 Past Encounters Encounter ID Performer Location Encounter Start Date Encounter Closed Date Diagnosis/Indication Diagnosis SNOMED-CT Code Diagnosis ICD10 Code Diagnosis Note [id number] Miroslava Pleitez NP [address] [address] 07/26/2024 11:26:00 07/28/2024 13:07:45 Bilateral foot drop 8700128215 3457588 M21.371 bilateral foot drop likely since 2021 with hx of lower leg weakness and fallshad neurology workup without definitive diagnosisn eurology rec:2 rec fu with outpt neurologis t and see if emg study done, rec 2-3 weeksmonit or Asthenia 28960056 R53.1 weakness with foot drop and lower [...] and treatsuppo rtive caremonito r Diabetes mellitus 043870 09 E11.9 ozempic 0.5 mg sc q weekmetfor min 500 mg ER po 1000 mg po bidmonitor Gastroesop hageal reflux disease 680780942 K21.00 omeprazole 20 mg po qdmonitor Fibromyalgia 775857214 M 79.7 gabapentin 300 mg po qhsibuprof en 600 mg po q 8 hours prnmonitor Posttrauma tic stress disorder 12804440 F43.10 bupropion 150 mg po er q amtrazodon e 50 mg po qhsmonitor Polycystic ovary syndrome 696445848 E28.2 hx ofmonitor Hypothyroidism 68777840 E03.9 levothyrox ine 88 mcg po qdtsh level with labsmonito r prn Constipation 86582553 K5 9.00 Has hx of IBS with constipati on and one episode of vomitingnu rsing gave chaptico bowel protocol without results2 give bisacodyl 5 mg po and supp today with zofrandocu sate 200 mg po qhsif no results from bisacodyl supp and po will give mag citrate 1/2 bottlemoni torcbc and bmp weekly x 3 Migraine 53274404 G43.90 9 emgality 120mg sc q monthribof tonya 200 mg po bidmonitor Hypertensive disorder 38 065216 I10 chlorthali done 25mg po qdlisinopr il 10 mg po qdmonitor Hyperlipidemia 16290896 E78.5 hx ofatorvast atin 40 mg po qhsmonitor [id number] Miroslava Pleitez NP [address] [address] 07/28/2024 11:50:49 08/01/2024 13:41:27 Constipation 95939103 K59.00 Has hx of IBS with constipati on and one episode of vomitingnu rsing gave chaptico bowel protocol without results nausea and vomiting resolved, with recent bm'sKUB noted for stool, has had bm since07/28 contdocusa te 200 mg po qhsmonitor cbc and bmp weekly x 3 [id number] Inez Acevedo MD [facility] [address] 07/31/2024 12:36:47 08/01/2024 13:52:27 Bilateral foot drop 4889611409 2937208 M21.371 Apparently currently having trouble using AFO due to weakness.P T/OT as above. Asthenia 93178984 R53.1 Long hx.Had EMG and nerve conduction studies in 02/2022 with no abnormal findings.M RI of LS spine in 02/2024 as noted in HPI.Also had MRI of head which was non-acute. Per neuro would not be a reason for sxs.He suspects somatizati on.Needs PT/OT for strengthen ing, balance, gait training, safety and function.A mbulation impaired by foot drop.Only right noted in hospital notes, but per pt and exam, bilateral. Continue fall precaution s.Monitor for safety.F/U with neuro as planned. Fall R29.6 As above.She tells me she does the stairs with a quad cane and by pulling herself up with the railing.Ne eds help with finding one level living situation. Diabetes mellitus 177373 09 E11.9 Sugars all low while inpt.Fasti ngs on bloodwork <100, no fingerstic ks done.Pavan nue ozempic 0.5 mg sc weekly and metformin 1000 mg BID.No HgA1C seen in system since 2020 (6.6)Monit or fingerstic ks prn and will get HgA1C with next labs. Gastroesop hageal reflux disease 026210877 K21.00 With issues with nausea, unclear if related to GERD.Pt doesn't want to increase omeprazole from 20 mg qd to 20 mg BID, says Zofran works fine.Pavan kourtney Zofran 4 mg q 6 hrs prn.Monito r sxs. Fibromyalgia 674015012 M 79.7 Continue gabapentin 300 mg qhs, APAP 650 mg q 6 hrs prn, and ibuprofen 600 mg q 8 hrs prnPT/OT as above.[facility] [place] [facility]en tor sxs. Posttrauma tic stress disorder 67559013 F43.12 Mood down.Pavan nue bupropion 150 mg qd and trazodone 50 mg qhsMonitor mood.Psych consult. Polycystic ovary syndrome 308450309 E28.2 In hx.On metformin as above.[facility] [place] [facility] tor as outpt. Hypothyroidism 80119898 E03.8 Last TSH 3.16 in 12/2023.Con tinue levothyrox ine 88 mcg qdMonitor TSH as outpt. Migraine 34988649 G43.80 9 No recent HAs.Contin ue emgality 120mg sq monthly and riboflavin 200 mg BID.Monito r for sxs. Hypertensive disorder 38 894177 I10 BP in good control.Co ntinue chlorthali done 25 mg qd and lisinopril 10 mg qdMonitor BP and labs. Hyperlipidemia 80615553 E78.49 Continue atorvastat in 40 mg qhsMonitor labs as outpt. Constipation 43661700 K5 8.2 With good results on 07/27 from bowel protocol.C ould be contributi ng to nausea.Davie l start miralax 17 gms qd and continue other bowel meds as ordered.Mo nitor bowel function. Vitamin D deficiency 347 40204 E56.8 Continue cholecalci ferol 2000 IU qd.Monitor as outpt. Health Concerns Section Related Observation LastModified by Organization Detai ls LastModified Time None Recorded Concern Status LastModified by Organization Details LastModified Time None Recorded Payers Encounter Date Sequence Insurance Name Policy Number Policy Nuñez Covered Member ID Nuñez Member ID Guarantor Name 07/31/2024 1 [facility] - DOS ON OR AFTER 2022 - MEDICARE ADVANTAGE [place] (MEDICARE REPLACEMENT/ADV ANTAGE - PPO) Georgia Muñoz [id number] Georgia Muñoz Notes Date Note Type Note Provider Name and Address Organization Details Recorded Time 07/31/2024 text/html This is a 44 yo woman who is here for rehab after an ED visit for knee pain and leg weakness, with falls. She presented to [facility] ED on 07/20 after a fall while going up the stairs.She c/o knee pain.At baseline she has right foot drop from a prior injury. She uses an AFO, but apparently legs have gotten too weak to lift foot with AFO on.She had an LS spine MRI in 02/2024 which showed Multilevel lumbar spondylosis more conspicuous at L3-4 and L4-5 likely encroaching the exiting nerve roots. She has not had a neuro f/u since then.Neuro notes in [facility] system only address issues with migraines, no discussion of BLE weakness. W/U in ED showed neg xrays of knees, non-acute labs,U/A looked contaminated with >20 epis and 11-20 WBCs, no abxs given, cx grew >100,000 mixed kellie. She did not get any abxs. She stated she has not walked since 2021 correctly. She stated two months ago she could slide her feet with rollator which she cannot do now. Her [employer] is sick and has not been able to help. Neuro consult felt exam and prior w/u most consistent with somatic disorder.STR was recommended and she wastransferred here on 07/24. Since here she has done some work with rehab, but has also refused at times due to not feeling well.Since here she has had some constipation, but had an XL stool on 07/27.She continues to have intermittent nausea and is getting prn Zofran.KUB was done prior to stool and showed large stool burden, with no obstruction.She tells me she had a pretty good stool today.Frustrated with how weak legs have gotten. Not sure how she will manage at home with only bathroom on 2nd floor. Her PMH includes HTN, AODM, IBS, right foot drop, GERD, PCOS, PTSD, migraines, hypothyroidism, fibromyalgia, IBS, and morbid obesity. Inez Acevedo MD [address] [place] [address], [address], [place], [address], [facility] 07/31/2024 22:23:25 OBGyn Episode No OBEpisode recorded.
--- OUTSIDE RECORDS SUMMARY | 2024-08-02 02:32 | XMS_ITS | Encounter Summary ---
Author Organization [facility] Address [address] [facility] [place] [address] Care Team Providers Care Molecular Biologist Name Role Phone Sunitha Rosales MD Primary Care Provider [phone] Huan Holman PharmD Unavailable [phone] Reason for Visit * Reason Comments Med Refill Encounter Details Date Type Department Care Team ([facility] st Contact Info) Description 07/09/2023 Refill [facility] MED[facility]INE [address] [place], [place] [phone] Sunitha Rosales MD [address] [place], [place] [phone] Neuropathic pain Social History Tobacco Use Types Packs/Day Years [...] as of this encounter Visit Diagnoses Diagnosis Neuropathic pain documented in this encounter Additional Health Concerns Assessment Noted Time PHQ-9 Depression Total Score: 8 01/20/20 23 2:22 PM EDT documented as of this encounter Care Teams Molecular Biologist Relationship Specialty Start Date End Date Sunitha Rosales MD [address] [place] [address] PCP - General Family Medicine 03/18/21 Huan Holman PharmD [address] [place] [address] Pharmacist Internal Medicine 08/17/22 documented as of this encounter
--- OUTSIDE RECORDS SUMMARY | 2024-08-02 02:32 | XMS_ITS | Encounter Summary ---
Author Organization [employer] Address [address] [place] [address] Care Team Providers Care Appraiser Auditor Name Role Phone Sunitha Rosales MD Primary Care Provider [phone] Huan Holman PharmD Unavailable [phone] Reason for Visit * Reason Onset Date Comments chart prep 07/20/2024 Encounter Details Date Type Department Care Team (Late st Contact Info) Description 07/20/2024 Telephone [facility] MEDICINE [address] [place], [place] [phone] Wendy Zhong MA chart prep Social History Tobacco Use Types Packs/Day Years Used Date Smoking Tobacco: Never Passive Smoke Exposure: Never Smokeless Tobacco: Never Depression Answer Date Recorded Patient Health Questionnaire-9 Score 12 02/02/2024 Patient Health Questionnaire-9 Score 12 02/02/2024 Last PHQ-9: Questionnaire Data Not on file 0 02/02/2024 Housing Stability Answer Date Recorded What is your housing situation today? I have veronicasilviano tovar 02/02/[address] you [...] t he electric, gas, oil or water [employer] threatened to shut off services in your [...] encounter Miscellaneous Notes * Telephone Encounter - Wendy Zhong MA - 07/20/2024 2:21 PM EST .Chart Prep Labs: not done 04/19/24 Images: not applicable Vaccines due: Not Applicable Referrals: Completed Screenings: Colonoscopy Overdue care gaps: Sbirt and Oral Health documented in this encounter Plan of Treatment [...] documented as of this encounter Care Teams Appraiser Auditor Relationship Specialty Start Date End Date Sunitha Rosales MD [address] [place] [address] PCP - General Family Medicine 03/18/21 Huan Holman PharmD [address] [place] [address] Pharmacist Internal Medicine 08/17/22 documented as of this encounter
--- OUTSIDE RECORDS SUMMARY | 2024-08-02 02:32 | XMS_ITS | Encounter Summary ---
Author Organization [email or web address] Address [address] [facility] [address] [place] [address] Care Team Providers Care Imaging Technician Name Role Phone Sunitha Rosales MD Primary Care Provider Huan Holman PharmD Unavailable Encounter Details Date Type Department Care Team (Late st Contact Info) Description 01/21/2023 Orders Only [facility] MED[facility] [address] [place], [place] [phone] Sunitha Rosales MD [address] [place], [place] [phone] Social History Tobacco Use Types Packs/Day Years [...] documented as of this encounter Care Teams Imaging Technician Relationship Specialty Start Date End Date Sunitha Rosales MD [address] [place] [address] PCP - General Family Medicine 03/18/21 Huan Holman, YairD [address] [place] [address] Pharmacist Internal Medicine 08/17/22 documented as of this encounter
--- OUTSIDE RECORDS SUMMARY | 2024-08-02 02:32 | XMS_ITS | Data Portability ---
Author Organization [facility] (formerly [facility]), Main Office Address [address] [place] [address] Care Team Providers Care Electrician Supervisor Name Role Phone DONNA MOONEY - 2ND FLOOR OTHER Assessment No assessment [...] and Address Organization Details Recorded Time Asthenia 36616642 Active 2024 Miroslava Pleitez NP [address] , [address], [place], [address], [facility] 13:00:10 Bilateral foot drop 8259385678429 9103 Active 2024 Miroslava Pleitez NP [address] , [address], [place], [address], [facility] 5 13:00:22 Constipatio n 19594615 Active 2024 Miroslava Pleitez NP [address], [place], [address], [facility] 5 13:00:30 Gastroesoph ageal reflux disease 018163596 Active 2024 Miroslava Pleitez NP [address], [address], [place], [address], [facility] 5 13:02:18 Diabetes mellitus 43419192 Active 2024 Miroslava Pleitez NP [address], [place], [address], [facility] 5 13:02:39 Polycystic ovary syndrome 934818838 Active 2024 Miroslava Pleitez NP [address], [address], [place], [place], [address], [facility] 5 13:02:57 Posttraumat ic stress disorder 39301166 Active 2024 Miroslava Pleitez NP [address], [address], [place], [address], [facility] 5 13:03:07 Fibromyalgi a 127357581 Active 2024 Miroslava Pleitez NP [address], [address], [place], [address], [facility] 5 13:03:16 Hypothyroid ism 80745562 Active 2024 Miroslava Pleitez NP [address], [address], [place], [address], [facility] 5 13:03:31 Fall Active 2024 Miroslava Pleitez NP [address], [address], [place], [address], [facility] 5 13:04:06 Migraine 69318936 Active 2024 Miroslava Pleitez NP [address], [address], [place], [address], [facility] 5 13:24:05 Hypertensiv e disorder 71765790 Active 2024 Miroslava Pleitez NP [address], [address], [place], [address], [facility] 5 13:29:51 Hyperlipide ion 63137485 Active 2024 Miroslava Pleitez NP [address], [address], [place], [address], [facility] 5 13:31:54 Vitamin D deficiency 55454603 Active 2024 Inez Acevedo MD [address], [address], [place], [address], [facility] 15:06:46 Problem Notes None recorded. Medical Equipment None Reported. Allergies Allergen ID Allergen Name Allergen Category Reaction Reaction Severity Criticality Documentation Date Start Date Code Code System Note Provider Name and Address Organization Details Recorded Time 54189 metronida zole medicatio n Not available Not available high 07/31/20242023 6922 RxNorm Not Available Not Available Not Available 66754 aripipraz ole medicatio n itching mild low 07/31/20242023 81803 RxNorm Not Available Not Available Not Available 93356 bacitraci n medicatio n Not available Not available high 07/31/20242023 1291 RxNorm Not Available Not Available Not Available 78084 iopromide medicatio n Not available Not available low 07/31/20242023 79526 RxNorm Not Available Not Available Not Available 95479 loperamid e medicatio n Not available Not available Not available 07/31/2024 6468 RxNorm Not Available Not Available Not Available 10284 neomycin medicatio n Not available Not available Not available 07/31/20242014 7299 RxNorm Other react ion(s ): burni ng Not Available Not Available Not Available 34210 polymyxin B medicatio n Not available Not available Not available 07/31/2024 8536 RxNorm Not Available Not Available Not Available 83233 risperido ne medicatio n Not available Not available high 07/31/20242023 27809 RxNorm Not Available Not Available Not Available Vitals Date Recorded Body weight Heart rate Respiratory rate Body temperature Oxygen saturation Oxygen saturation in Arterial blood by Pulse oximetry Systolic blood pressure Diastolic blood pressure Provider Name and Address Organization Details Last Updated DateTime 006292. 09 g 88 /min 18 /min 98 [degF] 96 % 96 % 131 mm[Hg] 94 mm[Hg] Miroslava Pleitez NP [address], [address], [place], [address], [facility] 12:19:30 Date Recorded Heart rate Respiratory rate Body temperature Oxygen saturation Oxygen saturation in Arterial blood by Pulse oximetry Systolic blood pressure Diastolic blood pressure Provider Name and Address Organization Details Last Updated DateTime 5 82 /min 18 /min 98.2 [degF] 95 % 95 % 96 mm[Hg] 60 mm[Hg] Miroslava Pleitez NP [address], [address], [place], [address], [facility] 5 12:15:54 Date Recorded Body height Body mass index (BMI) Body weight Heart rate Respiratory rate Body temperature Oxygen saturation Oxygen saturation in Arterial blood by Pulse oximetry Systolic blood pressure Diastolic blood pressure Provider Name and Address Organization Details Last Updated DateTime 5 162.56 cm 42.9 kg/m2 559622. 09 g 76 /min 18 /min 97.8 [degF] 99 % 99 % 118 mm[Hg] 72 mm[Hg] Inez Acevedo MD [address], [address], [place], [address], [facility] 13:10:03 Social History Question Answer Notes LastModified by Organizat ion Details LastModified Time Tobacco Smoking Status Never Smoker Miroslava Pleitez NP [address], [facility] [address], [place], [address], [facility] 07/26/2024 12:22:35 Do You Have An [...] Do You Have A Medical Power Of Coin Box Inspector? Yes Information not available 07/31/2024 What Was The Date Of Your Most Recent Tobacco Screening? 07/26/2024 Information not available 07/26/2024 Do You Have An Out Of Hospital DNR? No Information not available 07/26/2024 What Is Your Relationship Status? Ex- Helps A Lot [email or web address] Information not available 07/31/2024 Do You Feel Stressed (tense, Restless, Nervous, Or Anxious, Or Unable To Sleep At Night)? [id number] Information not available 07/26/2024 Do You Use [...] recorded. Family History Nothing Reported Notes:father florecita kirk, diabetes, mother cancer, htn, thyroid disease, cervical ca, dementia sister: breast ca Medical History No medical history recorded. Gynecological HistoryNo gynecological history recorded. Obstetrics History GPAL:G 0 P 0 0 0 0 Immunizations Vaccine Type Date Status Note Provider Nam e and Address Organization Details Recorded Time Hep B, unspecified formulation [address] [facility] 07/25/2024 14:42:01 Hep B, unspecified formulation [address] [facility] 07/25/2024 14:42:12 Hep B, unspecified formulation [address] [facility] 07/25/2024 14:42:22 DTaP, unspecified formulation [address] [facility] 07/25/2024 14:42:53 DTaP, unspecified formulation [address] [facility] 07/25/2024 14:43:13 DTaP, unspecified formulation [address] [facility] 07/25/2024 14:43:25 DTaP, unspecified formulation [address] [facility] 07/25/2024 14:43:38 DTaP, unspecified formulation 4 completed Sarah Snow null, [facility] 07/25/2024 14:43:47 Tdap 9 completed Sarah Edy null, [facility] 07/25/2024 14:44:06 Tdap 8 completed Sarah Snow null, [facility] 07/25/2024 14:44:15 Td(adult) unspecified formulation 5 completed Sarah Edy null, [facility] 07/25/2024 14:44:32 Td(adult) unspecified formulation 7 [facility] 14:44:53 Pneumococcal conjugate PCV [address] [facility] 07/25/2024 14:45:08 influenza, unspecified formulation [address] [facility] 07/25/2024 14:45:27 MMR 9 completed [facility]24 14:45:52 MMR 2 completed [facility] 07/25/2024 14:46:00 Hep A, unspecified formulation 8 completed [facility] 07/25/2024 14:46:26 Hep A, unspecified formulation [address] [facility] 07/25/2024 14:46:34 SARS-COV-2 (COVID-19) vaccine, UNSPECIFIED 1 completed [facility] 07/25/2024 14:54:26 SARS-COV-2 (COVID-19) vaccine, UNSPECIFIED [address] [facility] 07/25/2024 14:54:32 Past Encounters Encounter ID Performer Location Encounter Start Date Encounter Closed Date Diagnosis/Indication Diagnosis SNOMED-CT Code Diagnosis ICD10 Code Diagnosis Note [id number] Miroslava Pleitez NP [address] [address] 07/26/2024 11:26:00 07/28/2024 13:07:45 Bilateral foot drop 4624770833 3162969 M21.371 bilateral foot drop likely since 2021 with hx of lower leg weakness and fallshad neurology workup without definitive diagnosisn eurology rec:2 rec fu with outpt neurologis t and see if emg study done, rec 2-3 weeksmonit or Asthenia 62582161 R53.1 weakness with foot drop and lower [...] and treatsuppo rtive caremonito r Diabetes mellitus 056979 09 E11.9 ozempic 0.5 mg sc q weekmetfor min 500 mg ER po 1000 mg po bidmonitor Gastroesop hageal reflux disease 388885063 K21.00 omeprazole 20 mg po qdmonitor Fibromyalgia 062504065 M 79.7 gabapentin 300 mg po qhsibuprof en 600 mg po q 8 hours prnmonitor Posttrauma tic stress disorder 90185872 F43.10 bupropion 150 mg po er q amtrazodon e 50 mg po qhsmonitor Polycystic ovary syndrome 343192171 E28.2 hx ofmonitor Hypothyroidism 87940164 E03.9 levothyrox ine 88 mcg po qdtsh level with labsmonito r prn Constipation 06695225 K5 9.00 Has hx of IBS with constipati on and one episode of vomitingnu rsing gave house bowel protocol without results2/5 give bisacodyl 5 mg po and supp today with zofrandocu sate 200 mg po qhsif no results from bisacodyl supp and po will give mag citrate 1/2 bottlemoni torcbc and bmp weekly x 3 Migraine 25442607 G43.90 9 emgality 120mg sc q monthribof tonya 200 mg po bidmonitor Hypertensive disorder 38 529025 I10 chlorthali done 25mg po qdlisinopr il 10 mg po qdmonitor Hyperlipidemia 27091730 E78.5 hx ofatorvast atin 40 mg po qhsmonitor [id number] Miroslava Pleitez NP [address] [address] 07/28/2024 11:50:49 08/01/2024 13:41:27 Constipation 81136596 K59.00 Has hx of IBS with constipati on and one episode of vomitingnu [facility] bowel protocol without results nausea and vomiting resolved, with recent bm'sKUB noted for stool, has had bm since07/28 contdocusa te 200 mg po qhsmonitor cbc and bmp weekly x 3 [id number] Inez Acevedo MD [address] [address] 07/31/2024 12:36:47 08/01/2024 13:52:27 Bilateral foot drop 9307825358 7495151 M21.371 Apparently currently having trouble using AFO due to weakness.P T/OT as above. Asthenia 84294164 R53.1 Long hx.Had EMG and nerve conduction [...] finding one level living situation. Diabetes mellitus 081923 09 E11.9 Sugars all low while inpt.Fasti ngs on bloodwork <100, no fingerstic ks done.Pavan nue ozempic 0.5 mg sc weekly and metformin 1000 mg BID.No HgA1C seen in system since 2020 (6.6)Monit or fingerstic ks prn and will get HgA1C with next labs. Gastroesop hageal reflux disease 457095539 K21.00 With issues with nausea, unclear if related to GERD.Pt doesn't want to increase omeprazole from 20 mg qd to 20 mg BID, says Zofran works fine.Pavan katjae Zofran 4 mg q 6 hrs prn.Monito r sxs. Fibromyalgia 325604784 M 79.7 Continue gabapentin 300 mg qhs, APAP 650 mg q 6 hrs prn, and ibuprofen 600 mg q 8 hrs prnPT/OT as above.[facility] [place] [facility]en tor sxs. Posttrauma tic stress disorder 37805995 F43.12 Mood down.Pavan nue bupropion 150 mg qd and trazodone 50 mg qhsMonitor mood.Psych consult. Polycystic ovary syndrome 129590045 E28.2 In hx.On metformin as above.[facility] [place] [facility] tor as outpt. Hypothyroidism 55280356 E03.8 Last TSH 3.16 in 12/2023.Con tinue levothyrox ine 88 mcg qdMonitor TSH as outpt. Migraine 82544935 G43.80 9 No recent HAs.Contin ue emgality 120mg sq monthly and riboflavin 200 mg BID.Monito r for sxs. Hypertensive disorder 38 370834 I10 BP in good control.Co ntinue chlorthali done 25 mg qd and lisinopril 10 mg qdMonitor BP and labs. Hyperlipidemia 44847036 E78.49 Continue atorvastat in 40 mg qhsMonitor labs as outpt. Constipation 89522503 K5 8.2 With good results on 07/27 from bowel protocol.C ould be contributi ng to nausea.Davie l start miralax 17 gms qd and continue other bowel meds as ordered.Mo nitor bowel function. Vitamin D deficiency 347 26612 E56.8 Continue cholecalci ferol 2000 IU qd.Monitor as outpt. Health Concerns Section Related Observation LastModified by Organization Detai ls LastModified Time None Recorded Concern Status LastModified by Organization Details LastModified Time None Recorded Advance Directives Directive Y: Payers Encounter Date Sequence Insurance Name Policy Number Policy Nuñez Covered Member ID Nuñez Member ID Guarantor Name 07/26/2024 1 [facility] - DOS ON OR AFTER 2022 - MEDICARE [place]VANTAGE [place]/ADV ANTAGE - PPO) Georgia Muñoz [id number] Georgia Muñoz 07/28/2024 1 [facility] - DOS ON OR AFTER 2022 - [place]/ADV ANTAGE - [place]PO) Georgia Muñoz [id number] Georgia Muñoz 07/31/2024 1 [facility] - DOS ON OR AFTER 2022 - [place]/ADV ANTAGE - [place]PO) Georgia Muñoz [id number] Georgia Muñoz Notes Date Note Type Note [...] rollator which she cannot do now. Her SHIP CEILER is sick and has not been able [...] if emg nerve conduction study was done? [place] not suggestive of Guillian Winlock type of syndrome and likely somatization. All [...] bisacodyl po and supp as requested. Miroslava Pleitez, [place] [address], [address], [place], [address], [place] [facility] 07/26/2024 13:47:48 07/28/2024 text/html Pt is seen for a [...] rollator which she cannot do now. Her SHIP CEILER is sick and has not been able to help.She was seen by Dr Ulloa, neurology and recommends calling her neurologist to see if emg nerve conduction study was done? [place] not suggestive of Guillian Winlock type of syndrome and likely somatization.All medications continued and no new meds started during stay.She has an AFO however while working with therapy it seems it is too heavy for her to lift. Miroslava Pleitez NP [address], [address], [place], [address], [facility] 07/28/2024 12:23:00 07/31/2024 text/html This is a 44 yo woman who is here for rehab after an ED visit for knee pain and leg weakness, with falls. [facility] a [facility] while [...] rollator which she cannot do now. Her SHIP CEILER is sick and has not been able [...] IBS, and morbid obesity. Inez Acevedo MD [address], [address], [place], [address], [place] [facility] 07/31/2024 22:23:25 OBGyn Episode No OBEpisode recorded.
--- OUTSIDE RECORDS SUMMARY | 2024-08-02 02:32 | XMS_ITS | Clinical Summary ---
Author Organization 299 [facility] Address [address] [place] [address] Phone Care Team Providers Care Doctorate Of Chiropractic Name Role Phone Venu Morales MD Primary Care Provider [phone] Encounters Date Type Department Care Team Description 08/01/2024 Lab Requisition [facility] Lab [address] [place] [phone] Venu Morales MD Chronic kidney disease, unspecified; Type 2 diabetes mellitus without complications ([facility]HCC) 07/27/2024 Lab Requisition [facility] Lab [address] [place] [phone] Venu Morales MD Type 2 diabetes mellitus without complications ([facility]/HCC) 07/25/2024 Lab Requisition [facility] Lab [address] [place] [phone] Venu Morales MD Chronic kidney disease, unspecified 07/25/2024 Lab Requisition [facility] Lab [address] [place] [phone] Venu Morales MD Chronic kidney disease, unspecified from Last 3 Months Social History Tobacco Use Types Packs/Day Years Used Date Smoking Tobacco: Never Assessed Comments Unknown Sex and Gender Information Value Date Recorded Sex Assigned at Not on file Legal Sex Female 5:21 PM EST Gender Identity Not on file Sexual Orientation Not on file Last Filed Vital Signs Vital Sign Reading Time Taken Comments Blood Pressure - - Pulse - - Temperature - - Respiratory Rate - - Oxygen Saturation - - Inhaled Oxygen Concentration - - Weight 122 kg (269 lb) 12/30/2023 10:45 AM EDT Height 162.6 cm (5' 4 ) 12/30/2023 10:45 AM EDT Body Mass Index 46.17 12/30/2023 10:45 AM EDT Plan of Treatment Health Maintenance Due Date Last Done Comments Breast Cancer Screening 1978 Diabetes: Annual Foot Exam 02/13/1988 Diabetes: Annual Retina Eye Exam 02/13/1988 Cervical Cancer Screening: Pap Smear 1999 Cholesterol Screening (Lipid Panel) 07/21/2023 Colorectal Cancer Screening: Colonoscopy 07/21/2023 Hepatitis C Screening 07/21/2023 Medicare Annual Wellness Visit 07/21/2023 Social Influencers of Health Screening 07/21/2023 Diabetes: Annual Urine Albumin-Creatinine Ratio (uACR) 01/13/2024 Diabetes: Blood Sugar Control Test (HGBA1C) 02/17/2024 08/19/2023 COVID-19 Vaccine ( season) 2024 Influenza Vaccine (#1) 2024 , 03/23/2022, 04/17/2021, Additional history exists Depression Screening 02/01/2025 02/02/2024 Diabetes: Annual GFR (Glomerular Filtration Rate) 07/26/2025 07/26/2024, 07/25/2024 Hypertension/CHF/CAD Annual BMP Blood Test 07/26/2025 07/26/2024, 07/25/2024 DTaP,Tdap,and Td Vaccines (10 - Td or Tdap) 10/24/2027 10/23/2017, 08/03/2016, 02/22/2009, Additional history exists IPV Vaccines Completed 08/09/1981, 08/20, 1978, Additional history exists MMR Vaccines Completed 08/21/1991, 05/27/1979 Hepatitis A Vaccines Aged Out 05/07/2008, 06/24/19 08 No longer eligible based on patient's age to complete this topic Hepatitis B Vaccines Completed 05/07/2008, 07/25/2007, 06/24/2007 HIV Screening Completed 05/01/2021 Pneumococcal Vaccine: Pediatrics (0 to 5 Years) and At-Risk Patients (6 to 64 Years) Completed 05/05/2023 HIB Vaccines Aged Out No longer eligi ble based on patient's age to complete this topic HPV Vaccines Aged Out No longer eligi ble based on patient's age to complete this topic Meningococcal ACWY Vaccine Aged Out N o longer eligible based on patient's age to complete this topic Meningococcal B Vacine Aged Out No lo nger eligible based on patient's age to complete this topic RSV Immunization Patients Under 20 months Aged Out No longer eligible based on patient's age to complete this topic Varicella Vaccines Aged Out No longer eligible based on patient's age to complete this topic Procedures Procedure Name Priority Date/Time Associated Diagnosis Comments COMPLETE BLOOD COUNT Routine 07/27/2024 6:38 AM EST Type 2 diabetes mellitus without complications ([facility]) BASIC METABOLIC PANEL Routine 07/26/2024 5:49 AM EST Chronic kidney disease, unspecified COMPLETE BLOOD COUNT Routine 07/26/2024 5:49 AM EST Chronic kidney disease, unspecified CBC WITH AUTO DIFFERENTIAL Routine 07/25/2024 7:16 AM EST Chronic kidney disease, unspecified COMPREHENSIVE METABOLIC PANEL Routine 07/25/2024 7:16 AM EST Chronic kidney disease, unspecified CBC AND DIFFERENTIAL Routine 07/25/2024 7:16 AM EST Chronic kidney disease, unspecified from Last 3 Months Results * Complete blood count (07/27/2024 6:38 AM EST) Only the most recent of2 resultswithin the time period is included. WBC 9.4 4.8 - 10.8 K/mcL LAB HEMETOLOGY METHOD 07/27/2024 10:41 AM EST [facility] RBC 4.30 3.80 - 4.80 M/mcL LAB HEMETOLOGY METHOD 07/27/2024 10:41 AM EST [facility] Hemoglobin 11.8 11.5 - 16.0 g/dL LAB HEMETOLOGY METHOD 07/27/2024 10:41 AM [facility] Hematocrit 35.6 35.0 - 47.0 % LAB HEMETOLOGY METHOD 07/27/2024 10:41 AM [facility] MCV 82.4 79.0 - 98.0 FL LAB HEMETOLOGY METHOD 07/27/2024 10:41 AM [facility] MCH 27.3 27.0 - 32.0 pcg LAB HEMETOLOGY METHOD 07/27/2024 10:41 AM EST [facility] MCHC 33.1 32.0 - 37.0 g/dL LAB HEMETOLOGY METHOD 07/27/2024 10:41 AM [facility] RDW 13.3 11.0 - 15.0 % LAB HEMETOLOGY METHOD 07/27/2024 10:41 AM [facility] Platelets 344 130 - 400 K/mcL LAB HEMETOLOGY METHOD 07/27/2024 10:41 AM [facility] MPV 10.4 7.0 - 11.0 FL LAB HEMETOLOGY METHOD 07/27/2024 10:41 AM [facility] NRBC 0.0 <1.0 % LAB HEMETOLOGY METHOD 07/27/2024 10:41 AM [facility] NRBC Absolute 0.00 <0.10 K/mcL LAB HEMETOLOGY METHOD 07/27/2024 10:41 AM [facility] Blood Venous blood specimen / Unknown Venipuncture / Unknown 07/27/2024 6:38 AM EST 07/27/2024 9:42 AM EST us Venu Morales MD LAB BLOOD ORDERABLES Final Resul t [facility] [address] [place] [address], * Basic metabolic panel (07/26/2024 5:49 AM EST) Sodium 134 133 - 145 mmol/L LAB CHEMISTRY METHOD 07/26/2024 1:22 PM [facility] Potassium 4.6 3.5 - 5.5 mmol/L LAB CHEMISTRY METHOD 07/26/2024 1:22 PM [facility] Chloride 98 96 - 110 mmol/L LAB CHEMISTRY METHOD 07/26/2024 1:22 PM [facility] CO2 26 21 - 32 mmol/L LAB CHEMISTRY METHOD 07/26/2024 1:22 PM [facility] Anion Gap 10 3 - 11 LAB CHEMISTRY METHOD 07/26/2024 1:22 PM [facility] Glucose 73 70 - 100 mg/dL LAB CHEMISTRY METHOD 07/26/2024 1:22 PM [facility] BUN 20 5 - 25 mg/dL LAB CHEMISTRY METHOD 07/26/2024 1:22 PM [facility] Creatinine 0.55 0.50 - 1.10 mg/dL LAB CHEMISTRY METHOD 07/26/2024 1:22 PM [facility] eGFR 115 >=60 mL/min/1. 73m2 LAB CHEMISTRY METHOD 07/26/2024 1:22 PM [facility] Comment:Calculation based on the??Chronic Kidney Disease Epidemiology Collaboration (CKD-EPI) equation refit??without adjustment for race. BUN/Creatinine Ratio 36.4 LAB CHEMISTRY METHOD 07/26/2024 1:22 PM [facility] Calcium 9.5 8.5 - 10.5 mg/dL LAB CHEMISTRY METHOD 07/26/2024 1:22 PM [facility] Blood Venous blood specimen / Unknown Venipuncture / Unknown 07/26/2024 5:49 AM EST 07/26/2024 10:41 AM EST us Venu Morales MD LAB BLOOD ORDERABLES Final Resul t [facility] [address] [place] [address], * CBC auto differential (07/25/2024 7:16 AM EST) WBC 6.7 4.8 - 10.8 K/mcL LAB HEMETOLOGY METHOD 07/25/2024 9:05 AM [facility] RBC 4.50 3.80 - 4.80 M/mcL LAB HEMETOLOGY METHOD 07/25/2024 9:05 AM [facility] Hemoglobin 12.3 11.5 - 16.0 g/dL LAB HEMETOLOGY METHOD 07/25/2024 9:05 AM [facility] Hematocrit 36.8 35.0 - 47.0 % LAB HEMETOLOGY METHOD 07/25/2024 9:05 AM [facility] MCV 82.0 79.0 - 98.0 FL LAB HEMETOLOGY METHOD 07/25/2024 9:05 AM [facility] MCH 27.4 27.0 - 32.0 pcg LAB HEMETOLOGY METHOD 07/25/2024 9:05 AM [facility] MCHC 33.4 32.0 - 37.0 g/dL LAB HEMETOLOGY METHOD 07/25/2024 9:05 AM [facility] RDW 13.2 11.0 - 15.0 % LAB HEMETOLOGY METHOD 07/25/2024 9:05 AM [facility] Platelets 313 130 - 400 K/mcL LAB HEMETOLOGY METHOD 07/25/2024 9:05 AM [facility] MPV 10.0 7.0 - 11.0 FL LAB HEMETOLOGY METHOD 07/25/2024 9:05 AM [facility] NRBC 0.0 <1.0 % LAB HEMETOLOGY METHOD 07/25/2024 9:05 AM [facility] NRBC Absolute 0.00 <0.10 K/mcL LAB HEMETOLOGY METHOD 07/25/2024 9:05 AM [facility] Neutrophils Relative 59.3 % LAB HEMETOLOGY METHOD 07/25/2024 9:05 AM [facility] Lymphocytes Relative 32.4 % LAB HEMETOLOGY METHOD 07/25/2024 9:05 AM [facility] Monocytes Relative 5.5 % LAB HEMETOLOGY METHOD 07/25/2024 9:05 AM [facility] Eosinophils Relative 2.1 % LAB HEMETOLOGY METHOD 07/25/2024 9:05 AM [facility] Basophils Relative 0.4 % LAB HEMETOLOGY METHOD 07/25/2024 9:05 AM [facility] Immature Granulocytes Relative 0.3 % LAB HEMETOLOGY METHOD 07/25/2024 9:05 AM [facility] Neutrophils Absolute 3.96 1.50 - 7.00 K/mcL LAB HEMETOLOGY METHOD 07/25/2024 9:05 AM [facility] Lymphocytes Absolute 2.17 1.00 - 5.00 K/mcL LAB HEMETOLOGY METHOD 07/25/2024 9:05 AM [facility] Monocytes Absolute 0.37 0.20 - 1.00 K/mcL LAB HEMETOLOGY METHOD 07/25/2024 9:05 AM [facility] Eosinophils Absolute 0.14 0.00 - 0.50 K/mcL LAB HEMETOLOGY METHOD 07/25/2024 9:05 AM [facility] Basophils Absolute 0.03 0.00 - 0.20 K/mcL LAB HEMETOLOGY METHOD 07/25/2024 9:05 AM [facility] Immature Granulocytes Absolute 0.02 0.00 - 0.03 K/mcL LAB HEMETOLOGY METHOD 07/25/2024 9:05 AM [facility] Blood Venous blood specimen / Unknown Venipuncture / Unknown 07/25/2024 7:16 AM EST 07/25/2024 8:50 AM EST us Venu Morales MD LAB BLOOD ORDERABLES Final Resul t [facility] [address] [place] [address], [place] [phone] * (ABNORMAL) Comprehensive metabolic panel (07/25/2024 7:16 AM EST) Sodium 133 133 - 145 mmol/L LAB CHEMISTRY METHOD 07/25/2024 9:50 AM [facility] Potassium 4.3 3.5 - 5.5 mmol/L LAB CHEMISTRY METHOD 07/25/2024 9:50 AM [facility] Chloride 99 96 - 110 mmol/L LAB CHEMISTRY METHOD 07/25/2024 9:50 AM [facility] CO2 27 21 - 32 mmol/L LAB CHEMISTRY METHOD 07/25/2024 9:50 AM [facility] Anion Gap 7 3 - 11 LAB CHEMISTRY METHOD 07/25/2024 9:50 AM [facility] Glucose 81 70 - 100 mg/dL LAB CHEMISTRY METHOD 07/25/2024 9:50 AM [facility] BUN 20 5 - 25 mg/dL LAB CHEMISTRY METHOD 07/25/2024 9:50 AM [facility] Creatinine 0.45(L) 0.50 - 1.10 mg/dL LAB CHEMISTRY METHOD 07/25/2024 9:50 AM [facility] eGFR 120 >=60 mL/min/1. 73m2 LAB CHEMISTRY METHOD 07/25/2024 9:50 AM [facility] Comment:Calculation based on the??Chronic Kidney Disease Epidemiology Collaboration (CKD-EPI) equation refit??without adjustment for race. BUN/Creatinine Ratio 44.4 LAB CHEMISTRY METHOD 07/25/2024 9:50 AM [facility] Calcium 9.5 8.5 - 10.5 mg/dL LAB CHEMISTRY METHOD 07/25/2024 9:50 AM [facility] AST (SGOT) 17 10 - 42 unit/L LAB CHEMISTRY METHOD 07/25/2024 9:50 AM [facility] ALT (SGPT) 28 10 - 60 unit/L LAB CHEMISTRY METHOD 07/25/2024 9:50 AM [facility] Alkaline Phosphatase 78 42 - 121 unit/L LAB CHEMISTRY METHOD 07/25/2024 9:50 AM [facility] Total Protein 7.6 6.0 - 8.0 g/dL LAB CHEMISTRY METHOD 07/25/2024 9:50 AM EST [facility] Albumin 3.6 3.2 - 5.0 g/dL LAB CHEMISTRY METHOD 07/25/2024 9:50 AM [facility] Total Bilirubin 0.4 0.0 - 1.4 mg/dL LAB CHEMISTRY METHOD 07/25/2024 9:50 AM [facility] Blood Venous blood specimen / Unknown Venipuncture / Unknown 07/25/2024 7:16 AM EST 07/25/2024 8:50 AM EST us Venu Morales MD LAB BLOOD ORDERABLES Final Resul t [facility] [address] [place] [address], from Last 3 Months Insurance [facility] MEDIC[facility] Member Subscriber Plan / Payer (Ef fective 2024-Present) Name:Georgia Muñoz Relation to Subscriber:Self Name:Georgia Muñoz Payer ID:[id number] Group ID:Not on file Type:Not on file Address: [facility] [address] [id number] Care Teams Doctorate Of Chiropractic Relationship Specialty Start Date End Date Venu Morales MD [address] [place] [address], [phone] PCP - General Family Medicine 07/25/24
--- OUTSIDE RECORDS SUMMARY | 2024-08-02 02:32 | XMS_ITS | Encounter Summary ---
Author Organization [employer] Address [address] [facility] [address] [place] [address] Care Team Providers Care Coin Rolling Machine Operator Name Role Phone Sunitha Rosales MD Primary Care Provider [phone] Huan Holman PharmD Unavailable [phone] Reason for Visit * Reason Comments Med Refill Encounter Details Date Type Department Care Team (Late st Contact Info) Description 06/29/2022 Refill [facility] [address] [place], [place] [phone] Sunitha Rosales MD [address] [place], [place] [phone] Social History Tobacco Use Types Packs/Day Years Used Date Smoking Tobacco: Never Assessed Comments Unknown Sex and Gender Information Value Date Recorded Sex Assigned at Female 04/20/2022 10:15 AM EDT Legal Sex Female 10:15 AM EDT Gender Identity Female 04/20/2022 10:15 AM EDT Sexual Orientation Straight 04/20/2022 10 :15 AM EDT documented as of this encounter Miscellaneous Notes * Telephone Encounter - Liza Craft RN - 07/07/2022 10:14 AM EST Call placed with help of record filing clerk Breanne. No answer. Voicemail left requesting call back to discuss lab results. Rerouted for second attempt * Telephone Encounter - Liza Craft RN - 07/07/2022 10:14 AM EST ----- Message from Sunitha Rosales MD sent at 07/05/2022 5:06 PM EST ----- Lab was ordered by her specialist. It showed anemia, mildly elevated LFT (stable), and elevated blood sugar. Please make sure she has appt with GI for fatty liver. Please provide counseling on her diet. Please ask her if she has been adherent to iron supplementation. Thank you. documented in this encounter Plan of Treatment Not on file documented as of this encounter Visit Diagnoses Not on filedocumented in this encounter Care Teams Coin Rolling Machine Operator Relationship Specialty Start Date End Date Sunitha Rosales MD [address] [place] [address] PCP - General Family Medicine 03/18/21 Huan Holman, PharmD [address] [place] [phone] Pharmacist Internal Medicine 08/17/22 documented as of this encounter
--- OUTSIDE RECORDS SUMMARY | 2024-08-02 02:32 | XMS_ITS | Encounter Summary ---
Author Organization [employer] Address [address] [facility] [address] [place] [address] Care Team Providers Care Data Warehouse Consultant Name Role Phone Sunitha Rosales MD Primary Care Provider [phone] Huan Holman PharmD Unavailable [phone] Encounter Details Date Type Department Care Team (Late st Contact Info) Description 08/17/2023 Orders Only [facility] MED[facility] [address] [place], [place] [phone] Sunitha Rosales MD [address] [place], [place] [phone] Social History Tobacco Use Types Packs/Day Years Used Date Smoking Tobacco: Never Passive Smoke Exposure: Never Smokeless Tobacco: Never Depression Answer Date Recorded Patient Health Questionnaire-9 Score 8 01/19/2023 Housing Stability Answer Date Recorded What is your housing situation today? I have veronicasilviano tovar 04/09/[address] you [...] as of this encounter Care Teams Data Warehouse Consultant Relationship Specialty Start Date End Date Sunitha Rosales MD [address] [place] [address] PCP - General Family Medicine 03/18/21 Huan Holman, Faisal [address] [place] [address] Pharmacist Internal Medicine 08/17/22 documented as of this encounter
--- OUTSIDE RECORDS SUMMARY | 2024-08-02 02:32 | XMS_ITS | Encounter Summary ---
Author Organization [employer] Address [address] [facility] [address] [place] [address] Care Team Providers Care Parts Department Supervisor Name Role Phone Sunitha Rosales MD Primary Care Provider [phone] Huan Holman PharmD Unavailable Encounter Details Date Type Department Care Team (Late st Contact Info) Description 07/21/2024 Orders Only GENERIC EXTERNAL DATA DEPARTMENT Provider, Generic External Data Social History Tobacco Use Types Packs/Day Years [...] Holman PharmD documented as of this encounter Procedures Procedure Name Priority Date/Time Associated Diagnosis Comments URINALYSIS, COMPLETE, WITH REFLEX TO CULTURE Routine 07/21/2024 9:25 AM EST CULTURE, URINE, ROUTINE Routine 07/21/2024 12:00 AM EST documented in this encounter Results * (ABNORMAL) Urinalysis, Complete, with Reflex to Culture (07/21/2024 9:25 AM EST) Color Urine Yellow [facility] Appearance Urine Turbid [facility] PH 6.0 5.0 - 9.0 [facility] Glucose Urine UA Negative Negative mg/dL [facility] Urine Blood Negative Negative [facility] Specific [place] - Urine 1.025 1.005 - 1.025 [facility] Urine Protein 30 (1+)(A) Neg-Trace mg/dL [facility] Urine Ketones Negative Negative mg/dL [facility] Nitrite Urine Negative Negative [facility] Leukocyte Esterase Urine Moderate (2+)(A) Negative [facility] RBC Urine 0-2 0 - 2 /HPF [facility] Urine WBC 11-20 0 - 5 /HPF [facility] Urine Squamous Epithelial Cell >20 0 - 2 /HPF [facility] Urine Bacteria 4+ None Seen [facility] Hyaline Casts, Urine 0-2 0 - 2 /LPF [facility] 07/21/2024 9:25 AM EST 07/21/2024 10:03 AM EST Narrative [facility] - 07/21/2024 10:27 AM EST Urine, Clean Catch us Generic External Data Provider LAB URINE ORDERAB LES Final Result Performing Organization Address City/[facility] Co de Phone Number [facility] [address] [place] [phone] * Culture, Urine, Routine (07/21/2024 12:00 AM EST) Urine Urine specimen obtained by clean catch procedure / Unknown 07/21/2024 07/21/2024 Comment:UACC Narrative [facility] - 07/22/2024 9:47 AM EST Urine Culture Report Result Urine Culture > 100,000 cfu/ml Urine Culture Mixed bacterial kellie characteristic of Urine Culture urogenital contamination. Specimen Source: Urine clean catch Generic External Data Provider LAB MICROBIOLOGY - GENERAL ORDERABLES Final Result Performing Organization Address [facility] de Phone Number [facility] [address] [place] [phone] documented in this encounter Visit Diagnoses Not on filedocumented in this encounter Additional Health Concerns Assessment Noted Time PHQ-9 Depression Total Score: 12 02/01/ 024 12:14 PM EDT documented as of this encounter Care Teams Parts Department Supervisor Relationship Specialty Start Date End Date Sunitha Rosales MD [address] [place] [address] PCP - General Family Medicine 03/18/21 Huan Holman, YairD [address] [place] [address] Pharmacist Internal Medicine 08/17/22 documented as of this encounter
--- OUTSIDE RECORDS SUMMARY | 2024-08-02 02:32 | XMS_ITS | Encounter Summary ---
Author Organization [employer] Address [address] [facility] [address] [place] [address] Care Team Providers Care Metal Hardener Name Role Phone Sunitha Rosales MD Primary Care Provider [phone] Huan Holman PharmD Unavailable [phone] Encounter Details Date Type Department Care Team (Late st Contact Info) Description 10/23/2022 Orders Only [facility] [address] [place], [place] [phone] Sunitha Rosales MD [address] [place], [place] [phone] Open wound of foot, left, sequela (Primary Dx); Type 2 diabetes mellitus without complication, without long-term current use of insulin (CMS/HCC); Left foot pain Social History Tobacco Use Types Packs/Day [...] as of this encounter Visit Diagnoses Diagnosis Open wound of foot, left, sequela- Primary Type 2 diabetes mellitus without complication, without long-term current use of insulin (CMS/HCC) Left foot pain Pain in soft tissues of limb documented in this encounter Care Teams Metal Hardener Relationship Specialty Start Date End Date Sunitha Rosales MD [address] [place] [address] PCP - General Family Medicine 03/18/21 Huan Holman, YairD [address] [place] [address] Pharmacist Internal Medicine 08/17/22 documented as of this encounter
--- OUTSIDE RECORDS SUMMARY | 2024-08-02 02:32 | XMS_ITS | Encounter Summary ---
Author Organization [employer] Address [address] [facility] 7[address] [place] [address] Care Team Providers Care Occasional Babysitter Name Role Phone Sunitha Rosales MD Primary Care Provider [phone] Huan Holman PharmD Unavailable [phone] Encounter Details Date Type Department Care Team (Late st Contact Info) Description 09/10/2022 Orders Only [facility] [address] [place], [place] [phone] Sunitha Rosales MD [address] [place], [place] [phone] Type 2 diabetes mellitus without complication, without long-term current use of insulin (CMS/HCC) (Primary Dx); Primary hypertension; Acquired hypothyroidism; Fibromyalgia; Class 3 severe obesity due to excess calories with serious comorbidity and body mass index (BMI) of 50.0 to 59.9 in adult (CMS/HCC); Anemia, unspecified type Social History Tobacco Use Types Packs/Day Years Used Date Smoking Tobacco: Never Assessed Comments Unknown Sex and Gender Information Value Date Recorded Sex Assigned at Female 04/20/2022 10:15 AM EDT Legal Sex Female 10:15 AM EDT Gender Identity Female 04/20/2022 10:15 AM EDT Sexual Orientation Straight 04/20/2022 10 :15 AM EDT COVID-19 Exposure Response Date Recorded In the last 10 days, have yo u been in contact with someone who was confirmed or suspected to have Coronavirus/COVID-19? No / Unsure 08/17/2022 10:45 AM EST documented as of this encounter Plan of Treatment Scheduled Orders Name Type Priority Associated Diagnoses Orde r Schedule CBC auto differential Lab Routine Anemia, unspecified type Expected: 09/10/2022 (Approximate), Expires: 09/11/2023 Iron And Total Iron Binding Capacity Lab Routine Anemia, unspecified type Expected: 09/10/2022, Expires: 09/11/2023 Ferritin Lab Routine Anemia, unspecified type Expected: 09/10/2022 (Approximate), Expires: 09/11/2023 Vitamin B12/Folate, Serum Panel Lab Routine Anemia, unspecified type Expected: 09/10/2022 (Approximate), Expires: 09/11/2023 Albumin, Random Urine W/Creatinine Lab Routine Type 2 diabetes mellitus without complication, without long-term current use of insulin ([facility]) Expected: 09/10/2022 (Approximate), Expires: 09/11/2023 Hemoglobin A1c Lab Routine Type 2 diabetes mellitus without complication, without long-term current use of insulin ([facility]) Expected: 09/10/2022 (Approximate), Expires: 09/11/2023 Comprehensive Metabolic Panel Lab Routine Type 2 diabetes mellitus without complication, without long-term current use of insulin ([facility]) Expected: 09/10/2022 (Approximate), Expires: 09/11/2023 Lipid Panel with Reflex to Direct LDL Lab Routine Type 2 diabetes mellitus without complication, without long-term current use of insulin ([facility]) Expected: 09/10/2022 (Approximate), Expires: 09/11/2023 TSH W/Reflex to FT4 Lab Routine Acquired hypothyroidism Expected: 09/10/2022 (Approximate), Expires: 09/11/2023 documented as of this encounter Goals Goal Patient Goal Type Associated Problems Recent Progress Patient-Stated? Author Blood Pressure < 140/90 Blood Pressure 137/74( 024 11:35 AM EDT) No Huan Holman, Faisal documented as of this encounter Visit Diagnoses Diagnosis Type 2 diabetes mellitus without complication, without long-term current use of insulin ([facility])- Primary Primary hypertension Unspecified essential hypertension Acquired hypothyroidism Unspecified hypothyroidism Fibromyalgia Unspecified myalgia and myositis Class 3 severe obesity due to excess calories with serious comorbidity and body mass index (BMI) of 50.0 to 59.9 in adult ([facility]) Anemia, unspecified type documented in this encounter Care Teams Occasional Babysitter Relationship Specialty Start Date End Date Sunitha Rosales MD [address] [place] [address] PCP - General Family Medicine 03/18/21 Huan Holman, PharmD [address] [place] [phone] Pharmacist Internal Medicine 08/17/22 documented as of this encounter
--- OUTSIDE RECORDS SUMMARY | 2024-08-02 02:32 | XMS_ITS | Encounter Summary ---
Demographics Address [address] [facility] [address] [place] [address] Home Phone Work Phone Mobile Phone Home Phone Home Phone Mobile Phone Preferred Language en Marital Status Unknown Jehovah'S Witness Affiliation Unknown Race Unknown Ethnic Group Unknown Author Organization [facility] Address [address] [place] [address] Care Team Providers Care Printing Equipment Mechanic Name Role Phone Venu Morales MD Primary Care Provider [phone] Encounter Details Date Type Department Care Team (Late st Contact Info) Description 07/25/2024 Lab Requisition [facility] - Main Lab [address] [place] [address] Venu Morales MD [address] [place] [address] [address] [place], [phone] Chronic kidney disease, unspecified Social History Tobacco Use Types Packs/Day Years Used Date Smoking Tobacco: Never Assessed Comments Unknown Sex and Gender Information Value Date Recorded Sex Assigned at Not on file Legal Sex Female 5:21 PM EST Gender Identity Not on file Sexual Orientation Not on file documented as of this encounter Plan of Treatment Not on file documented as of this encounter Procedures Procedure Name Priority Date/Time Associated Diagnosis Comments COMPLETE BLOOD COUNT Routine 07/26/2024 5:49 AM EST Chronic kidney disease, unspecified BASIC METABOLIC PANEL Routine 07/26/2024 5:49 AM EST Chronic kidney disease, unspecified documented in this encounter Results * Basic metabolic panel (07/26/2024 5:49 AM EST) Sodium 134 133 - 145 mmol/L LAB CHEMISTRY METHOD 07/26/2024 1:22 PM EST [facility] Potassium 4.6 3.5 - 5.5 mmol/L LAB CHEMISTRY METHOD 07/26/2024 1:22 PM [facility] Chloride 98 96 - 110 mmol/L LAB CHEMISTRY METHOD 07/26/2024 1:22 PM [facility] CO2 26 21 - 32 mmol/L LAB CHEMISTRY METHOD 07/26/2024 1:22 PM [facility] Anion Gap 10 3 - 11 LAB CHEMISTRY METHOD 07/26/2024 1:22 PM [facility] Glucose 73 70 - 100 mg/dL LAB CHEMISTRY METHOD 07/26/2024 1:22 PM [facility] BUN 20 5 - 25 mg/dL LAB CHEMISTRY METHOD 07/26/2024 1:22 PM [facility] Creatinine 0.55 0.50 - 1.10 mg/dL LAB CHEMISTRY METHOD 07/26/2024 1:22 PM [facility] eGFR 115 >=60 mL/min/1. 73m2 LAB CHEMISTRY METHOD 07/26/2024 1:22 PM [facility] Comment:Calculation based on the??Chronic Kidney Disease Epidemiology Collaboration (CKD-EPI) equation refit??without adjustment for race. BUN/Creatinine Ratio 36.4 LAB CHEMISTRY METHOD 07/26/2024 1:22 PM [facility] Calcium 9.5 8.5 - 10.5 mg/dL LAB CHEMISTRY METHOD 07/26/2024 1:22 PM [facility] Blood Venous blood specimen / Unknown Venipuncture / Unknown 07/26/2024 5:49 AM EST 07/26/2024 10:41 AM EST us Venu Morales MD LAB BLOOD ORDERABLES Final Resul t [facility] [address] [place] [address], [place] [phone] * Complete blood count (07/26/2024 5:49 AM EST) [facility] WBC 7.8 4.8 - 10.8 K/mcL LAB HEMETOLOGY METHOD 07/26/2024 11:35 AM [facility] RBC 4.60 3.80 - 4.80 M/mcL LAB HEMETOLOGY METHOD 07/26/2024 11:35 AM [facility] Hemoglobin 12.9 11.5 - 16.0 g/dL LAB HEMETOLOGY METHOD 07/26/2024 11:35 AM [facility] Hematocrit 40.2 35.0 - 47.0 % LAB HEMETOLOGY METHOD 07/26/2024 11:35 AM [facility] MCV 87.8 79.0 - 98.0 FL LAB HEMETOLOGY METHOD 07/26/2024 11:35 AM [facility] MCH 28.2 27.0 - 32.0 pcg LAB HEMETOLOGY METHOD 07/26/2024 11:35 AM [facility] MCHC 32.1 32.0 - 37.0 g/dL LAB HEMETOLOGY METHOD 07/26/2024 11:35 AM [facility] RDW 13.9 11.0 - 15.0 % LAB HEMETOLOGY METHOD 07/26/2024 11:35 AM [facility] Platelets 349 130 - 400 K/mcL LAB HEMETOLOGY METHOD 07/26/2024 11:35 AM [facility] MPV 11.0 7.0 - 11.0 FL LAB HEMETOLOGY METHOD 07/26/2024 11:35 AM [facility] NRBC 0.0 <1.0 % LAB HEMETOLOGY METHOD 07/26/2024 11:35 AM [facility] NRBC Absolute 0.00 <0.10 K/mcL LAB HEMETOLOGY METHOD 07/26/2024 11:35 AM [facility] Blood Venous blood specimen / Unknown Venipuncture / Unknown 07/26/2024 5:49 AM EST 07/26/2024 10:41 AM EST us Venu Morales MD LAB BLOOD ORDERABLES Final Resul t Performing Organization Address City/State/[facility] Co de Phone Number [facility] [address] [place] [address], documented in this encounter Visit Diagnoses Diagnosis Chronic kidney disease, unspecified documented in this encounter Care Teams Printing Equipment Mechanic Relationship Specialty Start Date End Date Venu Morales MD [address] [place] [phone] PCP - General Family Medicine 07/25/24 documented as of this encounter
--- OUTSIDE RECORDS SUMMARY | 2024-08-02 02:32 | XMS_ITS | Encounter Summary ---
Author Organization [employer] Address [address] [facility] [address] [place] [address] Care Team Providers Care Candlemaking Laborer Name Role Phone Sunitha Rosales MD Primary Care Provider [phone] Huan Holman PharmD Unavailable [phone] Encounter Details Date Type Department Care Team (Late st Contact Info) Description 07/22/2024 Orders Only GENERIC EXTERNAL DATA DEPARTMENT Provider, [...] Procedure Name Priority Date/Time Associated Diagnosis Comments GLUCOSE, WHOLE BLOOD Routine 07/22/2024 4:52 PM EST CREATININE, SERUM Routine 07/22/2024 9:1 9 AM EST documented in this encounter Results * Glucose, Whole Blood (07/22/2024 4:52 PM EST) Glucose, Whole Blood 91 60 - 115 mg/dL [facility] Comment:METER #: [id number] 07/22/2024 4:52 PM EST 07/22/2024 4:57 PM EST us Generic External Data Provider LAB BLOOD ORDERAB LES Final Result [facility] [address] [place] [address] [phone] * Creatinine, Serum (07/22/2024 9:19 AM EST) Creatinine, Serum 0.61 0.5 - 1.4 mg/dL [facility] Creatinine Clr Calc Pharmacy 143.1 [facility] Comment:Provided height and weight: 162.56 cm,114.759 kg.eGFR (calculated from the MDRD study equation) and eCrCl(calculated from the Cockcroft-Gault equation) are based ondifferent parameters and may not yield comparable results.If eCrCl result is absurd, please check patient'sheight/weight. Estimated Glomerular Filt Rate >60 [facility] Comment:Chronic Kidney Disea se: Estimated GFR < 60 mL/min/1.45c8Mikfln Kidney Disease: Estimated GFR < 15 mL/min/1.73m2 07/22/2024 9:19 AM EST 07/22/2024 9:23 AM EST us Generic External Data Provider LAB BLOOD ORDERAB LES Final Result [facility] [address] [place] [address] [phone] documented in this encounter Visit Diagnoses Not on filedocumented in this encounter Additional Health Concerns Assessment Noted Time PHQ-9 Depression Total Score: 12 024 12:14 PM EDT documented as of this encounter Care Teams Candlemaking Laborer Relationship Specialty Start Date End Date Sunitha Rosales MD [address] [place] [address] PCP - General Family Medicine 03/18/21 Huan Holman PharmD [address] [place] [address] Pharmacist Internal Medicine 08/17/22 documented as of this encounter
--- OUTSIDE RECORDS SUMMARY | 2024-08-02 02:32 | XMS_ITS | Encounter Summary ---
Demographics Address [address] [facility] [address] [place] [address] Home Phone Work Phone Mobile Phone Home Phone Home Phone Mobile Phone Preferred Language en Marital Status Unknown Rastafarian Affiliation Unknown Race Unknown Ethnic Group Unknown Author Organization [employer] Address [address] [place] [address] Care Team Providers Care Supply Chain Associate Name Role Phone Venu Morales MD Primary Care Provider [phone] Encounter Details Date Type Department Care Team (Late st Contact Info) Description 08/01/2024 Lab Requisition [facility] - Main Lab [address] [facility] [place] [address] Venu Morales MD [address] [place] [address] [address] [place], [phone] Chronic kidney disease, unspecified; Type 2 diabetes mellitus without complications (CMS/HCC) Social History Tobacco Use Types Packs/Day Years Used Date Smoking Tobacco: Never Assessed Comments Unknown Sex and Gender Information Value Date Recorded Sex Assigned at Not on file Legal Sex Female 5:21 PM EST Gender Identity Not on file Sexual Orientation Not on file documented as of this encounter Plan of Treatment Scheduled Orders Name Type Priority Associated Diagnoses Orde r Schedule Complete blood count Lab Routine Chronic kidney disease, unspecified Type 2 diabetes mellitus without complications (CMS/HCC) Ordered: 08/01/2024 Comprehensive metabolic panel Lab Routine Chronic kidney disease, unspecified Type 2 diabetes mellitus without complications (CMS/HCC) Ordered: 08/01/2024 Hemoglobin A1c Lab Routine Chronic kidney disease, unspecified Type 2 diabetes mellitus without complications (CMS/HCC) Ordered: 08/01/2024 documented as of this encounter Visit Diagnoses Diagnosis Chronic kidney disease, unspecified Type 2 diabetes mellitus without complications (CMS/HCC) documented in this encounter Care Teams Supply Chain Associate Relationship Specialty Start Date End Date Venu Morales MD [address] [facility] [address] [place], [phone] PCP - General Family Medicine 07/25/24 documented as of this encounter
--- OUTSIDE RECORDS SUMMARY | 2024-08-02 02:32 | XMS_ITS | Encounter Summary ---
Demographics Address [address] [facility] [address] [place] [address] Home Phone Work Phone Mobile Phone Home Phone Home Phone Mobile Phone Preferred Language en Marital Status Unknown Sabianist Affiliation Unknown Race Unknown Ethnic Group Unknown Author Organization [facility] Address [address] [place] [address] Care Team Providers Care Marketing Technology Coordinator Name Role Phone Venu Morales MD Primary Care Provider [phone] Encounter Details Date Type Department Care Team (Late st Contact Info) Description 07/25/2024 Lab Requisition [facility] - Main Lab [address] [facility] [place] [address] Venu Morales MD [address] [place] [address] [address] [place], [phone] Chronic kidney disease, unspecified Social History [...] Procedure Name Priority Date/Time Associated Diagnosis Comments CBC WITH AUTO DIFFERENTIAL Routine 07/25/2024 7:16 AM EST Chronic kidney disease, unspecified CBC AND DIFFERENTIAL Routine 07/25/2024 7:16 AM EST Chronic kidney disease, unspecified COMPREHENSIVE METABOLIC PANEL Routine 07/25/2024 7:16 AM EST Chronic kidney disease, unspecified documented in this encounter Results * CBC auto differential (07/25/2024 7:16 AM EST) WBC 6.7 4.8 - 10.8 K/mcL LAB HEMETOLOGY METHOD 07/25/2024 9:05 AM [facility] RBC 4.50 3.80 - 4.80 M/mcL LAB HEMETOLOGY METHOD 07/25/2024 9:05 AM [facility] Hemoglobin 12.3 11.5 - 16.0 g/dL LAB HEMETOLOGY METHOD 07/25/2024 9:05 AM [facility] Hematocrit 36.8 35.0 - 47.0 % LAB HEMETOLOGY METHOD 07/25/2024 9:05 AM [facility] MCV 82.0 79.0 - 98.0 FL LAB HEMETOLOGY METHOD 07/25/2024 9:05 AM [facility] MCH 27.4 27.0 - 32.0 pcg LAB HEMETOLOGY METHOD 07/25/2024 9:05 AM [facility] MCHC 33.4 32.0 - 37.0 g/dL LAB HEMETOLOGY METHOD 07/25/2024 9:05 AM [facility] RDW 13.2 11.0 - 15.0 % LAB HEMETOLOGY METHOD 07/25/2024 9:05 AM [facility] Platelets 313 130 - 400 K/mcL LAB HEMETOLOGY METHOD 07/25/2024 9:05 AM [facility] MPV 10.0 7.0 - 11.0 FL LAB HEMETOLOGY METHOD 07/25/2024 9:05 AM [facility] NRBC 0.0 <1.0 % LAB HEMETOLOGY METHOD 07/25/2024 9:05 AM [facility] NRBC Absolute 0.00 <0.10 K/mcL LAB HEMETOLOGY METHOD 07/25/2024 9:05 AM [facility] Neutrophils Relative 59.3 % LAB HEMETOLOGY METHOD 07/25/2024 9:05 AM [facility] Lymphocytes Relative 32.4 % LAB HEMETOLOGY METHOD 07/25/2024 9:05 AM [facility] Monocytes Relative 5.5 % LAB HEMETOLOGY METHOD 07/25/2024 9:05 AM [facility] Eosinophils Relative 2.1 % LAB HEMETOLOGY METHOD 07/25/2024 9:05 AM [facility] Basophils Relative 0.4 % LAB HEMETOLOGY METHOD 07/25/2024 9:05 AM [facility] Immature Granulocytes Relative 0.3 % LAB HEMETOLOGY METHOD 07/25/2024 9:05 AM [facility] Neutrophils Absolute 3.96 1.50 - 7.00 K/mcL LAB HEMETOLOGY METHOD 07/25/2024 9:05 AM [facility] Lymphocytes Absolute 2.17 1.00 - 5.00 K/mcL LAB HEMETOLOGY METHOD 07/25/2024 9:05 AM [facility] Monocytes Absolute 0.37 0.20 - 1.00 K/mcL LAB HEMETOLOGY METHOD 07/25/2024 9:05 AM [facility] Eosinophils Absolute 0.14 0.00 - 0.50 K/mcL LAB HEMETOLOGY METHOD 07/25/2024 9:05 AM [facility] Basophils Absolute 0.03 0.00 - 0.20 K/mcL LAB HEMETOLOGY METHOD 07/25/2024 9:05 AM [facility] Immature Granulocytes Absolute 0.02 0.00 - 0.03 K/mcL LAB HEMETOLOGY METHOD 07/25/2024 9:05 AM [facility] Blood Venous blood specimen / Unknown Venipuncture / Unknown 07/25/2024 7:16 AM EST 07/25/2024 8:50 AM EST us Venu Morales MD LAB BLOOD ORDERABLES Final Resul t [facility] [address] [place] [address], * (ABNORMAL) Comprehensive metabolic panel (07/25/2024 7:16 AM EST) Sodium 133 133 - 145 mmol/L LAB CHEMISTRY METHOD 07/25/2024 9:50 AM EST [facility] Potassium 4.3 3.5 - 5.5 mmol/L LAB CHEMISTRY METHOD 07/25/2024 9:50 AM [facility] Chloride 99 96 - 110 mmol/L LAB CHEMISTRY METHOD 07/25/2024 9:50 AM [facility] CO2 27 21 - 32 mmol/L LAB CHEMISTRY METHOD 07/25/2024 9:50 AM [facility] Anion Gap 7 3 - 11 LAB CHEMISTRY METHOD 07/25/2024 9:50 AM [facility] Glucose 81 70 - 100 mg/dL LAB CHEMISTRY METHOD 07/25/2024 9:50 AM [facility] BUN 20 5 - 25 mg/dL LAB CHEMISTRY METHOD 07/25/2024 9:50 AM [facility] Creatinine 0.45(L) 0.50 - 1.10 mg/dL LAB CHEMISTRY METHOD 07/25/2024 9:50 AM [facility] eGFR 120 >=60 mL/min/1. 73m2 LAB CHEMISTRY METHOD 07/25/2024 9:50 AM [facility] Comment:Calculation based on the??Chronic Kidney Disease Epidemiology Collaboration (CKD-EPI) equation refit??without adjustment for race. BUN/Creatinine Ratio 44.4 LAB CHEMISTRY METHOD 07/25/2024 9:50 AM [facility] Calcium 9.5 8.5 - 10.5 mg/dL LAB CHEMISTRY METHOD 07/25/2024 9:50 AM [facility] AST (SGOT) 17 10 - 42 unit/L LAB CHEMISTRY METHOD 07/25/2024 9:50 AM [facility] ALT (SGPT) 28 10 - 60 unit/L LAB CHEMISTRY METHOD 07/25/2024 9:50 AM [facility] Alkaline Phosphatase 78 42 - 121 unit/L LAB CHEMISTRY METHOD 07/25/2024 9:50 AM [facility] Total Protein 7.6 6.0 - 8.0 g/dL LAB CHEMISTRY METHOD 07/25/2024 9:50 AM [facility] Albumin 3.6 3.2 - 5.0 g/dL LAB CHEMISTRY METHOD 07/25/2024 9:50 AM [facility] Total Bilirubin 0.4 0.0 - 1.4 mg/dL LAB CHEMISTRY METHOD 07/25/2024 9:50 AM [facility] Blood Venous blood specimen / Unknown Venipuncture / Unknown 07/25/2024 7:16 AM EST 07/25/2024 8:50 AM EST us Venu Morales MD LAB BLOOD ORDERABLES Final Resul t [facility] [address] [place] [address], documented in this encounter Visit Diagnoses Diagnosis Chronic kidney disease, unspecified documented in this encounter Care Teams Marketing Technology Coordinator Relationship Specialty Start Date End Date Venu Morales MD [address] [facility] [address] [place], [phone] PCP - General Family Medicine 07/25/24 documented as of this encounter
--- OUTSIDE RECORDS SUMMARY | 2024-08-02 02:32 | XMS_ITS | Encounter Summary ---
Demographics Address [address] [facility] [address] [place] [address] Home Phone Work Phone Mobile Phone Home Phone Home Phone Mobile Phone Preferred Language en Marital Status Unknown Synagogue Affiliation Unknown Race Unknown Ethnic Group Unknown Author Organization [facility] Address [address] [place] [address] Care Team Providers Care Pet Sitter Name Role Phone Venu Morales MD Primary Care Provider [phone] Encounter Details Date Type Department Care Team (Late st Contact Info) Description 07/27/2024 Lab Requisition [facility] - Main Lab [address] [place] [address] Venu Morales MD [address] [place] [address] [address] [place], [phone] Type 2 diabetes mellitus without complications (CMS/HCC) [...] EST Type 2 diabetes mellitus without complications (CMS/HCC) documented in this encounter Results * Complete blood count (07/27/2024 6:38 AM EST) WBC 9.4 4.8 - 10.8 K/[facility] LAB HEMETOLOGY METHOD 07/27/2024 10:41 AM EST [facility] RBC 4.30 3.80 - 4.80 /[facility] LAB HEMETOLOGY METHOD 07/27/2024 10:41 AM [facility] Hemoglobin 11.8 11.5 - 16.0 g/dL LAB HEMETOLOGY METHOD 07/27/2024 10:41 AM [facility] Hematocrit 35.6 35.0 - 47.0 % LAB HEMETOLOGY METHOD 07/27/2024 10:41 AM [facility] MCV 82.4 79.0 - 98.0 FL LAB HEMETOLOGY METHOD 07/27/2024 10:41 AM [facility] MCH 27.3 27.0 - 32.0 pcg LAB HEMETOLOGY METHOD 07/27/2024 10:41 AM [facility] MCHC 33.1 32.0 - 37.0 g/dL LAB HEMETOLOGY METHOD 07/27/2024 10:41 AM [facility] RDW 13.3 11.0 - 15.0 % LAB HEMETOLOGY METHOD 07/27/2024 10:41 AM [facility] Platelets 344 130 - 400 K/mcL LAB HEMETOLOGY METHOD 07/27/2024 10:41 AM [facility] MPV 10.4 7.0 - 11.0 FL LAB HEMETOLOGY METHOD 07/27/2024 10:41 AM [facility] NRBC 0.0 <1.0 % LAB HEMETOLOGY METHOD 07/27/2024 10:41 AM [facility] NRBC Absolute 0.00 <0.10 K/mcL LAB HEMETOLOGY METHOD 07/27/2024 10:41 AM [facility] Blood Venous blood specimen / Unknown Venipuncture / Unknown 07/27/2024 6:38 AM EST 07/27/2024 9:42 AM EST us Venu Morales MD LAB BLOOD ORDERABLES Final Resul t [facility] [address] [place] [address], documented in this encounter Visit Diagnoses Diagnosis Type 2 diabetes mellitus without complications (CMS/HCC) documented in this encounter Care Teams Pet Sitter Relationship Specialty Start Date End Date Venu Morales MD [address] [place] [address], [phone] PCP - General Family Medicine 07/25/24 documented as of this encounter
--- NOTE | 2024-08-02 02:33 | PC.NURSE ---
this RN gave patient water to see if she could pee however pt threw up water right away . MD Chery aware
--- OUTSIDE RECORDS SUMMARY | 2024-08-02 02:33 | XMS_ITS | Encounter Summary ---
Author Organization [employer] Address [address] [place] [address] Care Team Providers Care Sausage Inspector Name Role Phone Sunitha Rosales MD Primary Care Provider [phone] Huan Holman PharmD Unavailable [phone] Encounter Details Date Type Department Care Team (Late st Contact Info) Description 07/20/2024 Orders Only [facility] External Provider, [facility] Social History Tobacco Use Types Packs/Day Years [...] Procedure Name Priority Date/Time Associated Diagnosis Comments XR KNEE 1-2 VIEWS RIGHT Routine 07/20/2024 10:42 PM EST XR KNEE 1-2 VIEWS LEFT Routine 07/20/2024 10:42 PM EST documented in this encounter Results * XR Knee 1-2 Views Right (07/20/2024 10:42 PM EST) Anatomical Region Laterality Modality Lower Extremities, Knee Right [facility] 07/20/2024 10:4 2 PM EST Narrative 07/20/2024 10:44 PM EST ? [facility] ?[address] ?[place] [address] ?XRay Report ? Signed ? Patient: Toni,Georgia ?MR#: [id number] ?? 95 ? : 1980 ?Acct:[id number] ? Age/Sex: 44 / F ?ADM Date: 01/30/25 ? Loc: HO.ED ? Attending Dr: ? Ordering Physician: Todd Beckwith ?? Date of Service: 07/20/24 ?? Procedure(s): XR knee RT 2V ?? Accession Number(s): [id number] ? cc: Todd Beckwith; Sunitha Rosales MD ? CLINICAL HISTORY: pain ? 2 view right knee ? Comparison: 10/06/2023 ? Findings: ?? Bones intact. No dislocations. ?? No significant arthritic change or erosions. ?? No joint effusion. ?? No radiopaque foreign body. ? IMPRESSION: ?? 1. No acute findings. ? This document has been electronically signed by: Micheal Ibarra MD on ?? 07/20/2024 22:42:34 ? Dictated By: ?Micheal Ibarra MD ? Signed By: ?<Electronically signed by Micheal Ibarra MD in OV> ?07/20/243 ? DD/ 41 ? TD/TT: 07/20/242241 ? Sap Bi Developer: ? Procedure Note Behzad, Bibiana - 07/20/2024 [place] [address] XRay Report Signed Patient: Rehana Muñoz#: [id number] 95 : 1980Acct:[id number] Age/Sex: 44 / FADM Date: 07/20/24 Loc: HO.ED Attending Dr: Ordering Physician: Todd Beckwith Date of Service: 07/20/24 Procedure(s): XR knee RT 2V Accession Number(s): [id number] cc: Todd Beckwith; Sunitha Rosales MD CLINICAL HISTORY: pain 2 view right knee Comparison: 10/06/2023 Findings: Bones intact. No dislocations. No significant arthritic change or erosions. No joint effusion. No radiopaque foreign body. IMPRESSION: 1. No acute findings. This document has been electronically signed by: Micheal Ibarra MD on 07/20/2024 22:42:34 Dictated By: Micheal Ibarra MD Signed By: <Electronically signed by Micheal Ibarra MD in OV> 07/20/242242 DD/ 41 TD/TT: 07/20/242241 Sap Bi Developer: [facility] External Provider IMG XR PROCEDURES Final Result * XR Knee 1-2 Views Left (07/20/2024 10:42 PM EST) Anatomical Region Laterality Modality Lower Extremities, Knee Left Radiogra phic Imaging 07/20/2024 10:4 2 PM EST Narrative 07/20/2024 10:44 PM EST ? [facility] ?[address] ?[place] [address] ?XRay Report ? Signed ? Patient: Toni,Georgia ?MR#: [id number] ?? 95 ? : 1980 ?Acct:[id number] ? Age/Sex: 44 / F ?ADM Date: 07/20/24 ? Loc: HO.ED ? Attending Dr: ? Ordering Physician: Todd Beckwith ?? Date of Service: 07/20/24 ?? Procedure(s): XR knee LT 2V ?? Accession Number(s): [id number] ? cc: Todd Beckwith; Sunitha Rosales MD ? CLINICAL HISTORY: pain ? 2 view left knee ? Comparison: 10/06/2023 ? Findings: ?? Bones intact. No dislocations. ?? No significant arthritic change or erosions. ?? No joint effusion. ?? No radiopaque foreign body. ? IMPRESSION: ?? 1. No acute findings. ? This document has been electronically signed by: Micheal Ibarra MD on ?? 07/20/2024 22:42:10 ? Dictated By: ?Micheal Ibarra MD ? Signed By: ?<Electronically signed by Micheal Ibarra MD in OV> ?07/20/242242 ? DD/ 41 ? TD/TT: 07/20/242241 ? Sap Bi Developer: ? Procedure Note Bibiana Wen - 07/20/[address] [address] XRay Report Signed Patient: Rehana Muñoz#: [id number] 95 : 1980Acct:[id number] Age/Sex: 44 / FADM Date: 07/20/24 Loc: HO.ED Attending Dr: Ordering Physician: Todd Beckwith Date of Service: 07/20/24 Procedure(s): XR knee LT 2V Accession Number(s): [id number] cc: Todd Beckwith; Sunitha Rosales MD CLINICAL HISTORY: pain 2 view left knee Comparison: 10/06/2023 Findings: Bones intact. No dislocations. No significant arthritic change or erosions. No joint effusion. No radiopaque foreign body. IMPRESSION: 1. No acute findings. This document has been electronically signed by: Micheal Ibarra MD on 07/20/2024 22:42:10 Dictated By: Micheal Ibarra MD Signed By: <Electronically signed by Micheal Ibarra MD in OV> 07/20/242242 DD/ 41 TD/TT: 07/20/242241 Sap Bi Developer: [facility] External Provider IMG XR PROCEDURES Edited Result - Final documented in this encounter Visit Diagnoses Not on filedocumented in this encounter Additional Health Concerns Assessment Noted Time PHQ-9 Depression Total Score: 12 024 12:14 PM EDT documented as of this encounter Care Teams Sausage Inspector Relationship Specialty Start Date End Date Sunitha Rosales MD [address] [place] [address] PCP - General Family Medicine 03/18/21 Huan Holman, YairD [address] [place] [address] Pharmacist Internal Medicine 08/17/22 documented as of this encounter
--- OUTSIDE RECORDS SUMMARY | 2024-08-02 02:33 | XMS_ITS | Clinical Summary ---
Author Organization [employer] Address [address] [place] [address] Care Team Providers Care Unit Secretary Name Role Phone Sunitha Rosales MD Primary Care Provider [phone] Huan Holman PharmD Unavailable [phone] Allergies Active Allergy Reactions Criticality Noted Date Comments Aripiprazole Itching 06/23/2010 Bacitracin 12/18/2014 Other reaction(s): burning, burning Iopromide 06/12/2016 Other reaction(s): SOB, burning & tingling neck Metronidazole 12/18/2014 Other reaction(s): depression and chest pain Neomycin 12/18/2014 Other reaction(s): burning Polymyxin B 12/18/2014 Other reaction(s): burning, burning Risperidone 12/18/2014 Other reaction(s): hyperprolactinemia Medications Ventolin HFA 108 (90 Base) MCG/ACT inhaler INHALE 2 PUFFS EVERY 4 HOURS NEEDED FOR DIFFICULTY BREATHING. NO MORE THAN 8 PUFFS PER DAY 03/31/20 22 Active Emgality 120 MG/ML auto-injector 06/16/20 22 Active omeprazole (PriLOSEC) [address] capsule 06/16/20 22 Active riboflavin (vitamin B2) 100 mg tablet tablet TAKE 2 TABLETS BY MOUTH TWICE DAILY IN THE MORNING AND EVENING 05/08/20 22 Active Blood Glucose Monitoring Suppl (FreeStyle Lite) w/Device kitIndications:T ype 2 diabetes mellitus with hyperglycemia, with long-term current use of insulin ([facility]) 1 strip by Other route 2 times daily. (Use to test blood sugar twice daily as directed) 1 kit 08/05/19 24 Active Blood Pressure Monitor kitIndications:P rimary hypertension Use to check blood pressure daily as directed 1 kit 08/19/19 24 Active levothyroxine (Synthroid, Levoxyl) 88 MCG tablet TAKE 1 TABLET BY MOUTH EVERY MORNING 90 tablet 3 10/25/19 24 Active D3 Super Strength 50 MCG (2000 UT) capsule TAKE 1 CAPSULE BY MOUTH EVERY MORNING 90 capsule 3 10/25/19 24 Active docusate sodium (Colace) 100 MG capsule TAKE 2 CAPSULES BY MOUTH EVERY DAY AT BEDTIME Active progesterone 200 MG capsule TAKE 1 CAPSULE BY MOUTH EVERY DAY FOR 10 DAYS STARTING DAY 15-24 OF el CYCLE 01/04/20 24 Active atorvastatin (Lipitor) 40 MG tabletIndication s:Type 2 diabetes mellitus with hyperglycemia, with long-term current use of insulin (CMS/HCC) Take 1 tablet (40 mg) by mouth Once per day. 90 tablet 3 02/04/20 24 Active diazePAM (Valium) 2 MG tablet Take 1 tablet 1 hour before MRI 1 tablet 02/25/20 24 Active Semaglutide,0.25 or 0.5MG/DOS, (Ozempic, 0.25 or 0.5 MG/DOSE,) 2 MG/3ML solution pen-injectorIndi cations:Type 2 diabetes mellitus with hyperglycemia, with long-term current use of insulin ([facility]) Inject 0.5 mg under the skin every 7 (seven) days. 3 mL 5 03/09/20 24 Active Witch Rosalva (Hemorrhoidal Hygiene) 50 % pads APPLY TOPICALLY NEEDED FOR IRRITATION 100 each 03/27/20 24 Active hydrocortisone (Anusol-HC) 2.5 % rectal cream INSERT RECTALLY TWICE DAILY 30 g 1 04/05/20 24 Active chlorthalidone (Hygroton) 25 MG tablet TAKE 1 TABLET BY MOUTH EVERY MORNING 90 tablet 3 04/06/20 24 Active glucose blood (FREESTYLE LITE) test stripIndications :Type 2 diabetes mellitus with hyperglycemia, with long-term current use of insulin (CMS/HCC) TEST BLOOD SUGAR TWICE DAILY 100 strip 3 04/20/20 24 Active Alcohol Swabs (Alcohol Prep) 70 % pads USE DAILY DIRECTED 100 each 11 05/02/20 24 Active ibuprofen 800 MG tabletIndication s:Neuropathic pain TAKE 1 TABLET BY MOUTH EVERY 8 HOURS NEEDED FOR PAIN OR FEVER NO MORE THAN 2 WEEKS PER USE 30 tablet 05/12/20 24 Active TRUEplus Lancets 33G miscIndications: Type 2 diabetes mellitus with hyperglycemia, with long-term current use of insulin ([facility]) TEST BLOOD SUGAR TWICE DAILY 100 each 3 05/22/20 24 Active loratadine (Claritin) 10 MG tablet TAKE 1 TABLET BY MOUTH AT BEDTIME 90 tablet 1 06/01/20 24 Active lisinopril 10 MG tabletIndication s:Primary hypertension TAKE 1 TABLET BY MOUTH AT BEDTIME 90 tablet 1 06/01/20 24 Active metFORMIN XR (Glucophage-XR) 500 MG 24 hr tablet TAKE 2 TABLETS BY MOUTH TWICE DAILY IN THE MORNING AND EVENING BEFORE MEALS DO NOT BREAK, CRUSH, DISSOLVE OR CHEW 120 tablet 1 06/23/19 25 Active traZODone (Desyrel) 50 MG tablet TAKE 1 TABLET BY MOUTH AT BEDTIME 90 tablet 07/26/19 25 Active gabapentin (Neurontin) 300 MG capsuleIndicatio ns:Fibromyalgia TAKE 1 CAPSULE BY MOUTH AT BEDTIME 90 capsule 07/26/19 25 Active buPROPion XL (Wellbutrin XL) 150 MG 24 hr tablet TAKE 1 TABLET BY MOUTH EVERY MORNING 90 tablet 07/26/19 25 Active buPROPion XL (Wellbutrin XL) 150 MG 24 hr tablet TAKE 1 TABLET BY MOUTH EVERY MORNING 90 tablet 05/02/20 24 025 Discontinued traZODone (Desyrel) 50 MG tablet TAKE 1 TABLET BY MOUTH AT BEDTIME 90 tablet 05/02/20 24 025 Discontinued gabapentin (Neurontin) 300 MG capsuleIndicatio ns:Fibromyalgia TAKE 1 CAPSULE BY MOUTH AT BEDTIME 90 capsule 05/02/20 24 025 Discontinued Active Problems Problem Noted Date Diagnosed Date Recurrent falls 07/24/2024 Assessment & Plan (07/24/2024 2:46 PM EST): -Pt is going to short term rehab -Will write a letter so that she can have ramp and have a safe living environment Right leg weakness 02/03/2024 Assessment & Plan (02/03/2024 8:00 AM EDT): Pt sitting in her RW w seat , noted from exam she has decrease right leg weakness 3/5 ,Normal sensory -Bl knee XR 09/2023 : Mild bilateral tricompartment degenerative osteoarthritis. -PT referred today for right knee pain/weakness -Lower back MRI ordered today to further eval weakness -encouraged to have Brain MRI referred from her neurologist -states has apt for 03/01/2024 ,encouraged to discuss about decrease strength w sp as well -tylenol prn -has already schedule Apt w PCP 03/07/2024 -requested today DME : (transfer bench, toilet seat, step climber) to catering staff member Right leg pain 02/02/2024 Chronic pain of right knee 05/15/2023 Assessment & Plan (05/15/2023 6:18 AM EST): - X-ray in November 2022 showed minimal medial compartment arthrosis - likely compensatory overuse due to left foot wound - continue working to achieve healthier weight - continue following with PT and home exercise as instructed - continue judicious use of analgesics and muscle relaxant Chronic pain of right ankle 05/15/2023 Assessment & Plan (05/15/2023 6:21 AM EST): - likely partly due to compensatory overuse for left foot wound and chronic sprain - X-ray in November 2022 showed prominent circumferential subcutaneous edema - wear comfortable shoes - continue PT and follow home exercise instruction - continue following with loss control technician Diabetic polyneuropathy asso ciated with type 2 diabetes mellitus 05/15/2023 Assessment & Plan (05/15/2023 6:29 AM EST): -continue following with loss control technician -pt will discuss with the loss control technician about diabetic shoes Chronic idiopathic constipation 05/15/2023 Assessment & Plan (05/15/2023 6:35 AM EST): - following with GI. Colonoscopy is scheduled on 09/06/23 Venous insufficiency of both lower extremities 1 07/15/2022 Assessment & Plan (05/15/2023 6:41 AM EST): - pt has compression stocking, but has a difficulty wearing it - request a medical equipment to aid her wear stocking Cataract 02/17/2023 Assessment & Plan (02/17/2023 4:58 AM EDT): - very mild - seen by shipper and receiving recently - monitoring at this time Diabetes due to underlying condition w oth circu latory comp 01/23/2023 GERD (gastroesophageal reflux disease) Assessment & Plan (05/15/2023 6:31 AM EST): -followed by GI, last seen in Feb 2023 -curently taking omeprazole for GERD -possible IBS -continue current medication. She is hesitant to try new medications for IBS at this time -upcoming appt for colonoscopy and EGD Assessment & Plan (09/19/2022 5:25 PM EDT): -followed by GI, last seen in May 2022 -curently taking omeprazole for GERD -possible IBS -continue current medication. She is hesitant to try new medications for IBS at this time Open wound of foot, left, sequela 09/10/2022 Assessment & Plan (05/15/2023 6:35 AM EST): - 04/29/22 Excisional biopsy of left foot mass. Path report fibrovascular tissue with fibrinoid necrosis. Benign. - 06/26/22 Seen by Wound Care provider for L foot ulcer / wound - 10/15/[address] Velasco for post-op follow-up - following with loss control technician Assessment & Plan (01/23/2023 7:07 PM EDT): - 04/29/22 Excisional biopsy of left foot mass. Path report fibrovascular tissue with fibrinoid necrosis. Benign. - 06/26/22 Seen by Wound Care provider for L foot ulcer / wound - 10/15/[address] Velasco for post-op follow-up - waiting an appt with loss control technician - will write a script for a quad cane due to gait instability Assessment & Plan (09/19/2022 4:49 PM EDT): 04/29/22 Excisional biopsy of left foot mass. Path report fibrovascular tissue with fibrinoid necrosis. Benign. 05/07/22 Post-op follow-up with Dr. Velasco. 1/6/23 Seen by Wound Care provider for L foot ulcer / wound Migraine headache 09/10/2022 Assessment & Plan (09/19/2022 5:18 PM EDT): -currently prescribed propranolol for prophylaxis Obesity 09/10/2022 Assessment & Plan (05/15/2023 6:39 AM EST): -continue working on lifestyle modifications -continue GLP-1 agonist -CDTM Assessment & Plan (01/23/2023 6:58 PM EDT): -continue working on lifestyle modifications -starting GLP-1 agonist -CDTM Assessment & Plan (09/10/2022 11:17 AM EDT): -continue working on lifestyle modifications Anxiety and depression 09/10/2022 Assessment & Plan (01/23/2023 7:00 PM EDT): -Pt has been taking Bupropion and trazodone -h/o Psychiatric hospitalization -Pt reported visual hallucinations, but states that she has never been diagnosed as Bipolar or other mood disorders -Pt has tried Seroquel, Sertraline, Risperidone, and Aripiprazole, in the past. -Continue counseling -Pt states she was recently prescribed sertraline; will update her med list with our pharmacist Assessment & Plan (09/19/2022 5:21 PM EDT): -Pt has been taking Bupropion and trazodone -Engaged in counseling but no counselor -h/o Psychiatric hospitalization -Pt reported visual hallucinations, but states that she has never been diagnosed as Bipolar or other mood disorders -Pt has tried Seroquel, Sertraline, Risperidone, and Aripiprazole, in the past. -Continue counseling; requested appt with psychiatris Abnormal uterine bleeding 06/03/2022 Assessment & Plan (09/10/2022 11:17 AM EDT): in a setting of PCOS and cervical dysplasia -prescribed Provera by manufacturing technology analyst -improve adherence and follow up with [employer] as scheduled Cervical intraepithelial neoplasia grade 1 06/03 Assessment & Plan (09/10/2022 11:16 AM EDT): Followed by Dr. Bhatia, [facility] [employer] Dysplasia of cervix 06/03/2022 Assessment & Plan (01/23/2023 6:56 PM EDT): -followed by Dr. Bhatia [facility] [employer] -PAP in October 2020 ASCUS negative high-risk HPV -colposcopy / LEEP in December 2021 FÁTIMA-1, negative high-risk HPV -follow instruction from [employer] Assessment & Plan (09/19/2022 5:12 PM EDT): -followed by Dr. Bhatia [facility] [employer] -PAP in October 2020 ASCUS negative high-risk HPV -colposcopy / LEEP in December 2021 FÁTIMA-1, negative high-risk HPV -follow instruction from [employer] Primary hypertension 06/03/2022 Assessment & Plan (05/15/2023 6:29 AM EST): Goal BP < 140/90 per JNC-8 and < 130/80 per ACC/AHA guideline, BP at goal (checked at home over telephone) -continue working on lifestyle modifications -continue checking home BP -optimize Tx for RANDY (pending sleep study) Treatment Hx -previously taking furosemide for leg swelling. Restarted in Apr 2021, but pt perceived that it causes blurry vision. Was d/c in 05/2021. -Continue chlorthalidone 25 mg daily -Continue propranolol (originally prescribed by neurologist for Migraine) -Consider ARB or ACEI for renal protection -follow-up in 3 mo or sooner if any problem arises. Assessment & Plan (02/16/2023 11:44 AM EDT): Goal BP < 140/90 per JNC-8 and < 130/80 per ACC/AHA guideline, BP at goal (checked at home over telephone) -continue working on lifestyle modifications -continue checking home BP -optimize Tx for RANDY (pending sleep study) Treatment Hx -previously taking furosemide for leg swelling. Restarted in Apr 2021, but pt perceived that it causes blurry vision. Was d/c in 05/2021. -Continue chlorthalidone 25 mg daily -Continue propranolol (originally prescribed by neurologist for Migraine) -Consider ARB or ACEI for renal protection -Upcoming appt for CDTM HTN -follow-up in 3 mo or sooner if any problem arises. Assessment & Plan (01/23/2023 6:58 PM EDT): Goal BP < 140/90 per JNC-8 and < 130/80 per ACC/AHA guideline, BP at goal (checked at home over telephone) -continue working on lifestyle modifications -continue checking home BP -optimize Tx for RANDY (pending sleep study) Treatment Hx -previously taking furosemide for leg swelling. Restarted in Apr 2021, but pt perceived that it causes blurry vision. Was d/c in 05/2021. -Continue chlorthalidone 25 mg daily -Continue propranolol (originally prescribed by neurologist for Migraine) -Consider ARB or ACEI for renal protection -Upcoming appt for CDTM HTN -follow-up in 3 mo or sooner if any problem arises. Assessment & Plan (09/19/2022 4:48 PM EDT): Goal BP < 140/90 per JNC-8 and < 130/80 per ACC/AHA guideline, BP at goal (checked at home over telephone) -continue working on lifestyle modifications -continue checking home BP -optimize Tx for RANDY (pending sleep study) Treatment Hx -previously taking furosemide for leg swelling. Restarted in Apr 2021, but pt perceived that it causes blurry vision. Was d/c in 05/2021. -Continue chlorthalidone 25 mg daily -Continue propranolol (originally prescribed by neurologist for Migraine) -Consider ARB or ACEI for renal protection -Upcoming appt for CDTM HTN -follow-up in 3 mo or sooner if any problem arises. Type 2 diabetes mellitus 06/03/2022 Assessment & Plan (05/15/2023 6:39 AM EST): -Dx in Apr 2021 - Hgb A1C 5.8% on 05/05/23, marked improvement from A1C 14% on 01/19/23, increased from 6.4% in Apr 2022 - In a setting of PCOS / insulin resistance / Pt had already been taking metformin before Dx - continue metformin to metformin ER 1000 mg bid - continue semaglutide 0.25 mg weekly (started in Jan 2023) - briefly on basal insulin, Lantus, due to hyperglycemia, but pt self- discontinued - Continue working on lifestyle modifications - Diligent self-monitoring glucose. Ordered CGM. Waiting for PA approval. -Eye exam: [facility], seen on 01/22/23. No diabetic retinopathy. -Foot exam: 01/19/23 Hx foot wound due to callus, high-risk -Lipid profiel: 01/19/23 TC 198; TG 216; HDL 44; LDL 111 -Microalbumin: 01/19/23 UACR 567, albuminuria -Dental care: Seeing dentist regularly. - Follow up in 3-6 mo or sooner prn Assessment & Plan (02/17/2023 5:06 AM EDT): -Dx in Apr 2021 - Hgb A1C 14% on 01/19/23, markedly increased from 6.4% in Apr 2022 - In a setting of PCOS / insulin resistance / Pt had already been taking metformin before Dx - continue metformin to metformin ER 1000 mg bid - continue Ozempic 0.25 mg weekly (plan to titrate up if A1C in Apr is > 8%) - briefly on basal insulin, Lantus, due to hyperglycemia, but pt self- discontinued - Continue working on lifestyle modifications - Diligent self-monitoring glucose. Ordered CGM. Waiting for PA approval. -Eye exam: [facility], seen on 01/22/23. No diabetic retinopathy. -Foot exam: 01/19/23 Hx foot wound due to callus, high-risk -Lipid profiel: 01/19/23 TC 198; TG 216; HDL 44; LDL 111 -Microalbumin: 01/19/23 UACR 567, albuminuria -Dental care: Seeing dentist regularly. Assessment & Plan (01/23/2023 6:54 PM EDT): -Dx in Apr 2021 - Hgb A1C 14% on 01/19/23, markedly increased from 6.4% in Apr 2022 - In a setting of PCOS / insulin resistance / Pt had already been taking metformin before Dx - Increase metformin to metformin ER 1000 mg bid - start GLP-1 agonist, either Ozempic or Trulicity - Stop drinking soda - Continue working on lifestyle modifications - Diligent self-monitoring glucose -Eye exam: [facility] appt scheduled on 01/22/23 -Foot exam: 01/19/23 Hx foot wound due to callus, high-risk -Lipid profiel: 05/01/21 TC 102; TG 124; HDL 57; LDL 112, Ordered -Microalbumin: Ordered -IZ up to date Assessment & Plan (09/19/2022 4:57 PM EDT): Dx in Apr 2021 -Most recent Hgb A1C 6.4% in Apr 2022 -In a setting of PCOS / insulin resistance / Pt was already on metformin -Continue metformin 850 mg; check adherence since it has not been prescribed from us for a while -Continue working on lifestyle modifications -Eye exam: Referred -Foot exam: 05/05/21 -Lipid profiel: 05/01/21 TC 102; TG 124; HDL 57; LDL 112, Ordered -Microalbumin: Ordered -IZ up to date Neuropathic pain 06/03/2022 Acquired hypothyroidism 04/29/2015 Assessment & Plan (05/15/2023 6:40 AM EST): -current replacement: levothyroxine 88 mcg every morning -last TSH: 01/19/23 TSH 2.66 -continue current replacement Assessment & Plan (02/17/2023 5:06 AM EDT): -current replacement: levothyroxine 88 mcg every morning -last TSH: 01/19/23 TSH 2.66 -continue current replacement Assessment & Plan (01/23/2023 6:58 PM EDT): -current replacement: levothyroxine 88 mcg every morning -last TSH: 05/01/22 TSH 3.49 -continue current replacement Assessment & Plan (09/19/2022 5:00 PM EDT): -current replacement: levothyroxine 88 mcg every morning -last TSH: 05/01/22 TSH 3.49 -continue current replacement Anemia 04/29/2015 Assessment & Plan (09/19/2022 5:16 PM EDT): Baseline Hgb/Hct -36 Last H/H stable in Apr 2022 Recheck Fibromyalgia 04/29/2015 Assessment & Plan (05/15/2023 6:36 AM EST): -evaluated by interior design principal -seen by [facility] Rheumatology provider in Jul 2022 -continue judicious use of gabapentin and cyclobenzaprine Assessment & Plan (01/23/2023 6:54 PM EDT): -evaluated by interior design principal -seen by [facility] Rheumatology provider in Jul 2022 -continue judicious use of gabapentin and cyclobenzaprine Assessment & Plan (09/19/2022 5:13 PM EDT): -evaluated by interior design principal -seen by [facility] Rheumatology provider in Jul 2022 -continue judicious use of gabapentin and cyclobenzaprine Hypercholesterolemia 04/29/2015 PCOS (polycystic ovarian syndrome) 04/29/2015 Assessment & Plan (09/10/2022 11:13 AM EDT): -followed by [employer], last seen in November 2021. -pt has been taking metformin 850 mg for DM -continue working on lifestyle modifications Resolved Problems Problem Noted Date Diagnosed Date Resolved Date COVID-19 08/07/2023 11/28/2023 Assessment & Plan (08/07/2023 11:00 AM EST): Rx Paxlovid x 5 days, [place] interactions module checked, she will be holding atorvastatin, bupropion for 6 days, start 2d after she completes anti virals. She will aslo hold metformin due to current GI sxs and that her appetite is poor, she can restart it as soon as GI sxs are resolved. She will move Ozempic dose x 1d, afetr she completes antivirals due to also potentially worsening GI sxs. She will be putting off Emgality (migraine prevention) this coming week that she's due for and move it 2 more week due to potentially altering immune response. Isolation until 08/10 and she/he will be out of work until then. Can be out of isolation, wearing a mask from 08/15/23, if sxs are resolved without other meds for at least 24h. Counseled to let close contacts within the past week, know about dx so they can be tested if needed. Rest (sleep at least 8 hours a night). Wash hands frequently Hydrate with plenty of water. Use saline nose drops Take Acetaminophen or Ibuprofen as Prn fever or discomfort Gargle with salt water and use throat sprays/lozenges prn Use heated, humidified air or take hot showers. If you have a fever, stay home and away from others (self isolation) until fever-free for 72 hours (temperature should be less than 100??F without medication). Encounters Date Type Department Care Team Description 07/25/2024 Refill [facility] [place] [address] Emiliana Mota MD Fibromyalgia 07/24/2024 Travel 07/22/2024 Orders Only GENERIC EXTERNAL DATA DEPARTMENT Provider, Generic External Data 07/21/2024 Orders Only GENERIC EXTERNAL DATA DEPARTMENT Provider, Generic External Data 07/20/2024 Orders Only [facility] External Provider, [facility] 07/20/2024 Telephone [facility] [place] [address] Wendy Zhong MA chart prep 07/18/2024 Telephone [facility] [place] [facility] [place] [address] Sunitha Rosales MD 06/23/2024 Refill [facility] [place] [address] Sunitha Rosales MD 06/09/2024 Telephone [facility] [place] [address] Wendy Zhong MA dme request; Referral 06/08/2024 Telephone [facility] [address] [facility] [place] [address] Sunitha Rosales MD Nurse Triage 06/07/2024 Telephone [facility] [place] [address] Sunitha Rosales MD 06/07/2024 Telephone [facility] [place] [address] Sunitha Rosales MD 06/01/2024 Refill [facility] [address] [facility], [place] [phone] Huan Holman, PharmD Primary hypertension 06/01/2024 Refill [facility] [address] [facility], [place] [phone] Sunitha Rosales MD Primary hypertension 05/18/2024 Refill [facility] [address] [facility], [place] [phone] Huan Holman, PharmD Type 2 diabetes mellitus with hyperglycemia, with long-term current use of insulin ([facility]) 05/08/2024 Refill [facility] [address] [facility], [place] [phone] Sunitha Rosales MD Neuropathic pain 05/02/2024 Refill [facility] [address] [facility], [place] [phone] Sunitha Rosales MD Fibromyalgia from Last 3 Months Immunizations Name Administration Dates Next Due DTP 1978,1978,1978 DTaP 02/16/1984,08/09/1981 Hep A, Adult 05/07/2008,06/24/2007 Hep B, adult 05/07/2008,07/25/2007,06/24/2007 Influenza injectable quadriv alent IIV4 with preservative 02/27/2015 Influenza injectable quadriv alent preservative free 05/05/2023,03/23/2022,04/17/2021,2019,05/01/2019,03/16/2018,04/13/2017,1 ,03/15/2014 Influenza, IIV3, injectable 05/04/2011 Influenza, Split (incl. laura fied surface antigen) 02/19/2012 MMR 08/21/1991,05/27/1979 Moderna Covid-19 Vaccine 12+ 12/09/2023(Deferred : Patient Refused) OPV 08/09/1981, 9,1978,1977 Pneumococcal Conjugate PCV 20 05/05/2023 TD (adult), 2 Lf tetanus tox oid, preservative free, adsorbed 09/21/1994 Td (adult), 5 Lf tetanus tox oid, preservative free, adsorbed 08/03/2016 Tdap 10/23/2017,02/22/2009 Social History Tobacco Use Types Packs/Day Years Used Date Smoking Tobacco: Never Passive Smoke Exposure: Never Smokeless Tobacco: Never Tobacco Cessation:Counseling Given: Not Answered Depression Answer Date Recorded Patient Health Questionnaire-9 [...] Orientation Straight 04/20/2022 10 :15 AM EDT Last Filed Vital Signs Vital Sign Reading Time Taken Comments Blood Pressure 137/74 02/02/2024 11:35 AM EDT Pulse 82 02/02/2024 11:35 AM EDT Temperature 36.6 ??C (97.8 ??F) 02/02/2024 11:35 AM E DT Respiratory Rate 20 02/02/2024 11:35 AM EDT Oxygen Saturation 98% 02/02/2024 11:35 AM EDT Inhaled Oxygen Concentration - - Weight 109 kg (241 lb 3.2 oz) 02/02/2024 11:35 A M EDT Height 162.6 cm (5' 4 ) 02/02/2024 11:35 AM EDT Body Mass Index 41.4 02/02/2024 11:35 AM EDT Plan of Treatment Health Maintenance Due Date Last Done Comments CT Colonography 1978 Colonoscopy 1978 Colorectal Cancer Screening 1978 FIT DNA/Cologuard 1978 FIT 1978 FOBT 1978 Sigmoidoscopy 1978 Alcohol/Substance Use Screening 1990 Family Planning (PISQ) 1993 Pap Smear 12/30/2021 Diabetes: Hemoglobin A1C 11/17/2023 024, 05/05/2023, 01/19/2023, Additional history exists Diabetes: Foot Exam 01/20/2024 01/19/2023, 01/19/2023, 01/19/2023, Additional history exists Diabetes: Urine Protein Screening 01/20/2024 01/19/2023 Lipid Panel 01/20/2024 01/19/2023, 05/01/2021 COVID-19 Vaccine ( season) 2024 04/21/2021, 09/25/2020 Influenza Vaccine (#1) 2024 , 03/23/2022, 04/17/2021, Additional history exists Depression Monitoring (PHQ-9) 08/04/2024 02/02/2024, 02/02/2024 Eye Exam 01/22/2025 01/22/2023 Depression Screening 02/01/2025 02/02/2024, 02/02/20 24 SDOH Screening 02/01/2025 02/02/2024 Tobacco Screening 02/01/2025 02/02/2024 Mammogram 03/23/2025 03/23/2023, 06/02/2020, 10/05/2018, Additional history exists Cervical Cancer Screening 12/29/2026 HPV/Cotest 12/29/2026 12/29/2021, 12/29/2021 DTaP/Tdap/Td Vaccines (9 - Td or Tdap) 10/24/2027 10/23/2017, 08/03/2016, 02/22/2009, Additional history exists Zoster Vaccines (1 of 2) 02/13/2028 RSV Patients and Patients Aged 60 years or older (1 - 1-dose 75+ series) 2053 IPV Vaccines Completed 08/09/1981, 08/20, 1978, Additional history exists Hepatitis A Vaccines Aged Out 05/07/2008, 06/24/19 08 No longer eligible based on patient's age to complete this topic Hepatitis B Vaccines Completed 05/07/2008, 07/25/2007, 06/24/2007 HIV Screening Completed 05/01/2021 Hepatitis C Screening Completed 01/19/2023, 021 Pneumococcal Vaccine: Pediatrics (0 to 5 Years) and At-Risk Patients (6 to 49) Years) Completed 05/05/2023 HIB Vaccines Aged Out No longer eligi ble based on patient's age to complete this topic HPV Vaccines Aged Out No longer eligi ble based on patient's age to complete this topic Meningococcal Vaccine Aged Out No kylah alem eligible based on patient's age to complete this topic RSV under 20 months Aged Out No longe r eligible based on patient's age to complete this topic Rotavirus Vaccines Aged Out No longer eligible based on patient's age to complete this topic Goals Goal Patient Goal Type Associated Problems Recent Progress Patient-Stated? Author Blood Pressure < 140/90 Blood Pressure 137/74(2023 11:35 AM EDT) No Huan Holman, Faisal Hemoglobin A1c < 7 Result Component 5.4( 9:49 AM EST) No Huan Holman PharmD Procedures Procedure Name Priority Date/Time Associated Diagnosis Comments GLUCOSE, WHOLE BLOOD Routine 07/22/2024 4:52 PM EST CREATININE, SERUM Routine 07/22/2024 9:1 9 AM EST URINALYSIS, COMPLETE, WITH REFLEX TO CULTURE Routine 07/21/2024 9:25 AM EST CULTURE, URINE, ROUTINE Routine 07/21/2024 12:00 AM EST XR KNEE 1-2 VIEWS RIGHT Routine 07/20/2024 10:42 PM EST XR KNEE 1-2 VIEWS LEFT Routine 10:42 PM EST POCT GLYCATED HEMOGLOBIN, TOTAL Routine 08/19/2023 9:49 AM EST Type 2 diabetes mellitus with hyperglycemia, with long-term current use of insulin (CMS/HCC) BI MAMMOGRAM SCREENING TOMOSYNTHESIS BILATERAL Routine 03/23/2023 10:33 AM EDT HM DIABETES EYE EXAM Routine 01/22/2023 ALBUMIN, RANDOM URINE W/CREATININE Routine 01/19/2023 4:29 PM EDT Type 2 diabetes mellitus without complication, without long-term current use of insulin (CMS/HCC) HEPATITIS C ANTIBODY REFLEX Routine 01/19/2023 3:15 PM EDT LIPID PANEL WITH REFLEX TO DIRECT LDL Routine 01/19/2023 3:15 PM EDT Type 2 diabetes mellitus without complication, without long-term current use of insulin (CMS/HCC) ZZZ HISTORICAL HPV E6/E7 RFLX YNES 16 18/45 Routine 12/29/2021 12:25 PM EDT HIV 1/2 ANTIGEN/ANTIBODY, FOURTH GENERATION W/RFL Routine 05/01/2021 11:05 AM EST from Last 3 Months or Most Recently Relevant to Health Maintenance Results * Glucose, Whole Blood (07/22/2024 4:52 PM EST) Glucose, Whole Blood 91 60 - 115 mg/dL [facility] Comment:METER #: [id number] 07/22/2024 4:52 PM EST 07/22/2024 4:57 PM EST Generic External Data Provider LAB BLOOD ORDERAB LES Final Result Performing Organization Address [facility] Co de Phone Number [facility] [address] [place] [phone] * Creatinine, Serum (07/22/2024 9:19 AM EST) Creatinine, Serum 0.61 0.5 - 1.4 mg/dL [facility] Creatinine Clr Calc Pharmacy 143.1 [facility] Comment:Provided height and weight: 162.56 cm,114.759 kg.eGFR (calculated from the MDRD study equation) and eCrCl(calculated from the Cockcroft-Gault equation) are based ondifferent parameters and may not yield comparable results.If eCrCl result is absurd, please check patient'sheight/weight. Estimated Glomerular Filt Rate >60 [facility] Comment:Chronic Kidney Disea se: Estimated GFR < 60 mL/min/[id number] Kidney Disease: Estimated GFR < 15 mL/min/1.73m2 07/22/2024 9:19 AM EST 07/22/2024 9:23 AM EST Generic External Data Provider LAB BLOOD ORDERAB LES Final Result Performing Organization Address City/[facility]/ZIP Co de Phone Number [facility] [address] [place] [phone] * (ABNORMAL) Urinalysis, Complete, with Reflex to Culture (07/21/2024 9:25 AM EST) Color Urine Yellow [facility] Appearance Urine Turbid [facility] PH 6.0 5.0 - 9.0 [facility] Glucose Urine UA Negative Negative mg/dL [facility] Urine Blood Negative Negative [facility] Specific Coral - Urine 1.025 1.005 - 1.025 [facility] Urine Protein 30 (1+)(A) Neg-Trace mg/dL [facility] Urine Ketones Negative Negative mg/dL [facility] Nitrite Urine Negative Negative [facility] Leukocyte Esterase Urine Moderate (2+)(A) Negative [facility] RBC Urine 0-2 0 - 2 /HPF [facility] Urine WBC 11-20 0 - 5 /HPF [facility] Urine Squamous Epithelial Cell >20 0 - 2 /HPF [facility] Urine Bacteria 4+ None Seen [facility] Hyaline Casts, Urine 0-2 0 - 2 /LPF [facility] 07/21/2024 9:25 AM EST 07/21/2024 10:03 AM EST Narrative [facility] - 07/21/2024 10:27 AM EST Urine, Clean Catch Generic External Data Provider LAB URINE ORDERAB LES Final Result Performing Organization Address City/[facility]/ZIP Co de Phone Number [facility] [address] [place] [phone] * Culture, Urine, Routine (07/21/2024 12:00 AM EST) Urine Urine specimen obtained by clean catch procedure / Unknown 07/21/2024 07/21/2024 Comment:UACC Narrative [facility] - 07/22/2024 9:47 AM EST Urine Culture Report Result Urine Culture > 100,000 cfu/ml Urine Culture Mixed bacterial kellie characteristic of Urine Culture urogenital contamination. Specimen Source: Urine clean catch us Generic External Data Provider LAB MICROBIOLOGY - GENERAL ORDERABLES Final Result Performing Organization Address City/[facility]/ZIP Co de Phone Number [facility] [address] [place] [phone] * XR Knee 1-2 Views Right (07/20/2024 10:42 PM EST) Anatomical Region Laterality Modality Lower Extremities, Knee Right Radiogra phic Imaging 07/20/2024 10:4 2 PM EST Narrative 07/20/2024 10:44 PM EST ? [facility] ?[address] ?[place] [address] ?XRay Report ? Signed ? Patient: Toni,Georgia ?MR#: [id number] ?? 95 ? : 1980 ?Acct:[id number] ? Age/Sex: 44 / F ?ADM Date: 07/20/24 ? Loc: HO.ED ? Attending Dr: ? Ordering Physician: Todd Beckwith ?? Date of Service: 07/20/24 ?? Procedure(s): XR knee RT 2V ?? Accession Number(s): [id number] ? cc: Todd Beckwith; Sunitha Rosales MD [...] signed by Micheal Ibarra MD in OV> ?07/20/24 2243 ? DD/ 41 ? TD/TT: 07/20/242241 ? Director Of Education And Training: ? Procedure Note Behzad, Image - 07/20/2024 [place] [address] XRay Report Signed Patient: Rehana Muñoz#: [id number] 95 : 1980Acct:[id number] Age/Sex: 44 / FADM Date: 07/20/24 Loc: HO.ED Attending Dr: Ordering Physician: Todd Beckwith Date of Service: 07/20/24 Procedure(s): XR knee RT 2V Accession Number(s): [id number] cc: Todd Beckwith; Sunitha Rosales MD CLINICAL [...] in OV> 07/20/242242 DD/ 41 TD/TT: 07/20/242241 Director Of Education And Training: us [facility] External Provider IMG XR PROCEDURES Final Result * XR Knee 1-2 Views Left (07/20/2024 10:42 PM EST) Anatomical Region Laterality Modality Lower Extremities, Knee Left Radiogra phic Imaging 07/20/2024 10:4 2 PM EST Narrative 07/20/2024 10:44 PM EST ? [facility] ?[address] ?[place] [address] ?XRay Report ? Signed ? Patient: Georgia Muñoz ?MR#: [id number] ?? 95 ? : 1980 ?Acct:[id number] ? Age/Sex: 44 / F ?ADM Date: 07/20/24 ? Loc: HO.ED ? Attending Dr: ? Ordering Physician: Todd Beckwith ?? Date of Service: 07/20/24 ?? Procedure(s): XR knee LT 2V ?? Accession Number(s): [id number] ? cc: Todd Beckwith; Sunitha Rosales MD [...] signed by Micheal Ibarra MD in OV> ?07/20/24 2243 ? DD/DT: 07/20/ 2242 ? TD/TT: 07/20/2 ? Director Of Education And Training: ? Procedure Note Donotuseinterpreter, Image - 07/20/[address] [address] XRay Report Signed Patient: Rehana Muñoz#: [id number] 95 : 1980Acct:[id number] Age/Sex: 44 / FADM Date: 07/20/24 Loc: HO.ED Attending Dr: Ordering Physician: Todd Beckwith Date of Service: 07/20/24 Procedure(s): XR knee LT 2V Accession Number(s): [id number] cc: Todd Beckwith; Sunitha Rosales MD CLINICAL [...] in OV> 07/20/242242 DD/ 41 TD/TT: 07/20/242241 Director Of Education And Training: [employer] External Provider IMG XR PROCEDURES Edited Result - Final * POCT A1C (08/19/2023 9:49 AM EST) Hemoglobin A1C 5.4 4.0 - 6.0 % QC Media Lot # [id number] Lot# Expiration Date Blood 08/19/2023 9:49 AM EST Sunitha Rosales MD POINT OF CARE TEST ENTER/EDIT OR DERABLES Final Result * BI Mammogram Screening Tomosynthesis Bilateral (03/23/2023 10:33 AM EDT) Anatomical Region Laterality Modality Breast Bilateral Mammography 03/23/2023 10:3 3 AM EDT Narrative 04/11/2023 7:59 PM EDT ? [facility] ? [address] ?[place] [address] ? Mammography Report ? Signed ? Patient: Toni,Georgia ?MR#: [id number] ?? 95 ? : 1980 ?Acct:[id number] ? Age/Sex: 43 / F ?ADM Date: 03/23/23 ? Loc: HO.MAMMO ? Attending Dr: Sunitha Rosales MD ? Ordering Physician: Sunitha Rosales MD ?Results: 1Negative ? Date of Service: 03/23/23 ?Follow Up: 1 Year From Orig ?? inal Mammogram ? Procedure(s): MM tomosynthesis screening BI ?? Accession Number(s): [id number] ? cc: Sunitha Rosales MD ? EXAMINATION: ?? MM SCREENING DIGITAL BREAST TOMOSYNTHESIS, BILATERAL ? CLINICAL INFORMATION: ? Screening. Asymptomatic. ? COMPARISON: ?? Mammography: This study is compared with prior exams dating back to ?? 2018. ? TECHNIQUE: ?? Digital breast tomosynthesis is performed in both the craniocaudal and ?? mediolateral oblique views along with computer-aided detection (CAD). ?? Synthesized 2D images are generated from the tomosynthesis. ? FINDINGS: ?? There are scattered areas of fibroglandular density (ACR BI-RADS breast ?? composition Category b). ? There are no significant masses, abnormal calcifications, or other ?? abnormalities. ? MM/MM tomosynthesis screening BI ?? IMPRESSION: ?? No mammographic evidence of malignancy. ? ASSESSMENT: ? BI-RADS BI-RADS 1 - Negative ? RECOMMENDATION: ?? Routine annual mammography screening. ? 1 year F/U ? This examination should not preclude the clinical evaluation of a ?? suspicious palpable abnormality. ? This patient's information was entered into a reminder system with a ?? target due date for their next mammogram. ? Dictated By: ?Zelda Miguel MD ? Signed By: ?<Electronically signed by Zelda Miguel MD in OV> ? 04/11/231954 ? DD/ 1033 ? TD/TT: ? Director Of Education And Training: ? Procedure Note Donirmater, Image - 04/11/2023 [facility] [address] [place] [address] Mammography Report Signed Patient: Rehana Muñoz#: [id number] 95 : 1980Acct:[id number] Age/Sex: 43 / FADM Date: 03/23/23 Loc: RYDER Attending Dr: Sunitha Rosales MD Ordering Physician: Sunitha Rosales MDResults: 1Negative Date of Service: 03/23/23Follow Up: 1 Year From Orig inal Mammogram Procedure(s): MM tomosynthesis screening BI Accession Number(s): [id number] cc: Sunitha Rosales MD EXAMINATION: MM SCREENING DIGITAL BREAST TOMOSYNTHESIS, BILATERAL CLINICAL INFORMATION: Screening. Asymptomatic. COMPARISON: Mammography: This study is compared with prior exams dating back to 2018. TECHNIQUE: Digital breast tomosynthesis is performed in both the craniocaudal and mediolateral oblique views along with computer-aided detection (CAD). Synthesized 2D images are generated from the tomosynthesis. FINDINGS: There are scattered areas of fibroglandular density (ACR BI-RADS breast composition Category b). There are no significant masses, abnormal calcifications, or other abnormalities. MM/MM tomosynthesis screening BI IMPRESSION: No mammographic evidence of malignancy. ASSESSMENT: BI-RADS BI-RADS 1 - Negative RECOMMENDATION: Routine annual mammography screening. 1 year F/U This examination should not preclude the clinical evaluation of a suspicious palpable abnormality. This patient's information was entered into a reminder system with a target due date for their next mammogram. Dictated By: Zelda Miguel MD Signed By: <Electronically signed by Zelda Miguel MD in OV> 04/11/231954 DD/ 1033 TD/TT: Director Of Education And Training: Sunitha Rosales MD IMG BI PROCEDURES Final Result * Hm Diabetes Eye Exam (01/22/2023) Eye Exam Normal Normal Historical Provider HEALTH MAINTENANCE Final Result * Albumin, Random Urine W/Creatinine (01/19/2023 4:29 PM EDT) Creatinine, Urine 66.51 mg/dL [facility] Microalbumin Urine 377.0 mg/L [facility] Microalbum Creatinine Ratio Ur 566.8 ug/mg cr [facility] Comment:Albumin/Creatinine R atio Reference Ranges: Normal: < 30 ug/mg creatinine Microalbuminuria: 30 - 300 ug/mg creatinineClinical Albuminuria: > 300 ug/mg creatinine Urine 01/19/2023 4:29 PM EDT 01/19/2023 4:33 PM EDT Sunitha oRsales MD LAB URINE ORDERABLES Final Resul t [facility] [address] [place] [phone] * Hepatitis C Antibody Reflex (01/19/2023 3:15 PM EDT) Hepatitis C Antibody Nonreactive Nonreactive [facility] Comment:Antibodies to HCV no t detected; does not exclude early acuteHCV infection. 01/19/2023 3:15 PM EDT 01/19/2023 4:30 PM EDT Sunitha Rosales MD LAB BLOOD ORDERABLES Final Resul t Performing Organization Address [facility] Co de Phone Number [facility] [address] [place] [phone] * Lipid Panel with Reflex to Direct LDL (01/19/2023 3:15 PM EDT) Triglycerides 216 mg/dL [facility] Comment:Desirable Triglyceri de: less than 150 mg/dLBorderline High Triglyceride 150-199 mg/dLHigh Triglyceride: 200-499 mg/dLVery High Triglyceride: greater than or equal to 5OO mg/dL Cholesterol 198 mg/dL [facility] Comment:Desirable Cholestero l: less than 200 mg/dLBorderline High Cholesterol: 200-239 mg/dLHigh Cholesterol: greater than 239 mg/dL LDL Cholesterol Calculated 111 mg/dl [facility] Comment:Desirable LDL: less than 100 mg/dLNear Optimal/Above Optimal LDL: 110- 129 mg/dLBorderline High LDL: 130-159 mg/dLHigh LDL: 160-189 mg/dLVery High LDL: greater than or equal to 190 mg/dL HDL Cholesterol 44 mg/dL [facility] Comment:Desirable HDL: great er than 40 mg/dL Note: This HDL assay may give artificially low results in patients with liver disease. Blood 01/19/2023 3:15 PM EDT 01/19/2023 4:30 PM EDT Sunitha Rosales MD LAB BLOOD ORDERABLES Edited Resu lt - Final Performing Organization Address City/[facility]/ZIP Co de Phone Number [facility] [address] [place] [phone] [phone] * HPV E6/E7 RFLX YNES 16 18/45 (12/29/2021 12:25 PM EDT) HPV mRNA E6/E7 rflx Not Detected Not Detected [facility] Comment: Methodology: Bevel Operator-Mediated Amplification This assay detects E6/E7 viral messenger RNA (mRNA) from 14 high-risk HPV types (16,18,31,33,35,39,45,51,52,56,58,59,66,68). Cervical sources are required for HPV testing. If a vaginal source from a patient who has had a total hysterectomy with removal of cervix was submitted, please contact the testing laboratory for alternative testing options. For additional information, please refer to http://Peek.Plutora/faq/ZUL343m7 (This link if provided for information/ educational purposes only.) THIS TEST WAS PERFORMED AT: [facility] [address] [place] [address] [address] [place], [place] ??[phone] OSCAR ARCEO MD 12/29/2021 12:2 5 PM EDT Sunny Bhatia MD HISTORICAL/NON ORDERABLE LABS Fi nal Result [facility] [address] * HIV 1/2 ANTIGEN/ANTIBODY,FOURTH GENERATION W/RFL (05/01/2021 11:05 AM EST) Pathologist [facility] HIV-1/2 ANTIGEN AND ANTIBODIES, 4TH GENERATION W/ REFLEX NON-REACT [facility]ITISH NON-REACT [facility] Comment: HIV-1 antigen and HIV-1/HIV-2 antibodies were not detected. There is no laboratory evidence of HIV infection. ?? PLEASE NOTE: This information has been disclosed to you from records whose confidentiality may be protected by state law. ??If your state requires such protection, then the state law prohibits you from making any further disclosure of the information without the specific written consent of the person to whom it pertains, or as otherwise permitted by law. A general authorization for the release of medical or other information is NOT sufficient for this purpose. ? For additional information please refer to http://Peek.Plutora/faq/UEO231 (This link is being provided for informational/ educational purposes only.) ? The performance of this assay has not been clinically validated in patients less than 2 years old. ?? 05/01/2021 11:0 5 AM EST us Sunitha Rosales MD LAB BLOOD ORDERABLES Final Resul t [facility] [address] from Last 3 Months or Most Recently Relevant to Health Maintenance Insurance - [employer] Care Teams Unit Secretary Relationship Specialty Start Date End Date Sunitha Rosales MD [address] [place] [address] PCP - General Family Medicine 03/18/21 Huan Holman, PharmD [address] [place] [address] Pharmacist Internal Medicine 08/17/22
--- OUTSIDE RECORDS SUMMARY | 2024-08-02 02:33 | XMS_ITS | Encounter Summary ---
Author Organization [employer] Address [address] [facility] 7 [place] [address] Care Team Providers Care Ladies Suit Operator Name Role Phone Sunitha Rosales MD Primary Care Provider [phone] Huan Holman PharmD Unavailable [phone] Reason for Visit * Reason Comments Med Refill Encounter Details Date Type Department Care Team ([facility] st Contact Info) Description 07/25/2024 Refill [facility] MEDICINE [address] [place] [address] Emiliana Mota MD [address] [place] [address] Fibromyalgia Social History Tobacco Use Types Packs/Day Years [...] as of this encounter Visit Diagnoses Diagnosis Fibromyalgia Unspecified myalgia and myositis documented in this encounter Additional Health Concerns Assessment Noted Time PHQ-9 Depression Total Score: 12 024 12:14 PM EDT documented as of this encounter Care Teams Ladies Suit Operator Relationship Specialty Start Date End Date Sunitha Rosales MD [address] [place] [address] PCP - General Family Medicine 03/18/21 Huan Holman, YairD [address] [place] [address] Pharmacist Internal Medicine 08/17/22 documented as of this encounter
--- OUTSIDE RECORDS SUMMARY | 2024-08-02 02:33 | XMS_ITS | Encounter Summary ---
Author Organization [employer] Address [address] [place] [address] Care Team Providers Care Consumer Services Consultant Name Role Phone Sunitha Rosales MD Primary Care Provider [phone] Huan Holman PharmD Unavailable [phone] Encounter Details Date Type Department Care Team (Latest Contact Info) Description 07/24/2024 Travel Social History Tobacco Use Types Packs/Day Years [...] documented as of this encounter Care Teams Consumer Services Consultant Relationship Specialty Start Date End Date Sunitha Rosales MD [address] [place] [address] PCP - General Family Medicine 03/18/21 Huan Holman, YairD [address] [place] [address] Pharmacist Internal Medicine 08/17/22 documented as of this encounter
--- OUTSIDE RECORDS SUMMARY | 2024-08-02 02:33 | XMS_ITS | Encounter Summary ---
Author Organization [email or web address] Address [address] [place] [address] Care Team Providers Care Hydrogen Plant Operations Manager Name Role Phone Sunitha Rosales MD Primary Care Provider [phone] Huan Holman PharmD Unavailable [phone] Encounter Details Date Type Department Care Team (Late st Contact Info) Description 07/18/2024 Telephone [facility]INE [address] [place], [place] [phone] Sunitha Rosales MD [address] [place], [place] [phone] Social History Tobacco Use Types Packs/Day Years [...] encounter Miscellaneous Notes * Telephone Encounter - Brittni Al - 07/18/2024 2:23 PM EST Call to Roster Clerk was attempted, detailed message was left to return call to office. * Telephone Encounter - Brittni Al - 07/18/2024 2:23 PM EST ----- Message from Zuleyka Gallagher sent at 07/18/2024 11:39 AM EST ----- Regarding: DME Contact: Kaitlin, back in May an RX request for a recliner was put in and no RX or response received, andmember is calling urgent care technician asking for an update please send eap clinician Zuleyka Freed anRX for a recliner for pt . The pt is also requesting the RX for a ramp for her home so she can leave her house to attend her appointments and to become more mobile and independent by being able to leave her home please forward those RX to [facility] Roster Clerk Zuleyka Freed by email thank you. . documented in this encounter Plan of Treatment Not on file documented as of this encounter Goals Goal Patient Goal Type Associated Problems Recent Progress Patient-Stated? Author Blood Pressure < 140/90 Blood Pressure 137/74(2023 11:35 AM EDT) No Holman, Huan, PharmD Hemoglobin A1c < 7 Result Component 5.4( 4 9:49 AM EST) No Huan Holman PharmD documented as of this encounter Visit Diagnoses Not on filedocumented in this encounter Additional Health Concerns Assessment Noted Time PHQ-9 Depression Total Score: 12 024 12:14 PM EDT documented as of this encounter Care Teams Hydrogen Plant Operations Manager Relationship Specialty Start Date End Date Sunitha Rosales MD [address] [place] [address] PCP - General Family Medicine 03/18/21 Huan Holman PharmD [address] [place] [phone] Pharmacist Internal Medicine 08/17/22 documented as of this encounter
--- NOTE | 2024-08-02 02:36 | ED_ITS ---
HPI - Female Genitourinary General Chief complaint: Urogenital-Female Stated complaint: urine retention lower ab pain Time Seen by Provider: 08/02/24 02:22 Source: patient Mode of arrival: EMS Limitations: no limitations History of Present Illness ED Provider: HPI Narrative: Patient's [facility] comes here as unable to urinate since 10:30 bladder scan showed 426 cc of urine no prior history of same in the past Related Data Home Medications ?Medication ?Instructions ?Recorded ?Confirmed galcanezumab-gnlm 120 mg/mL 120 mg subcut QMONTH 05/08/20 07/21/24 subcutaneous pen injector (Emgality Pen) riboflavin (vitamin B2) 100 mg 200 mg PO BID 05/29/20 07/20/24 tablet atorvastatin 10 mg tablet 40 mg PO BEDTIME 07/23/21 07/20/24 chlorthalidone 25 mg tablet 25 mg PO DAILY 07/30/21 07/20/24 semaglutide 0.25 mg or 0.5 mg (2 0.5 mg subcut QWEEK 06/24/23 07/21/24 mg/3 mL) subcutaneous pen injector (Ozempic) lisinopril 10 mg tablet 10 mg PO DAILY 07/30/23 07/20/24 metformin 500 mg tablet,extended 1,000 mg PO BID 07/30/23 07/20/24 release 24 hr omeprazole 20 mg capsule,delayed 20 mg DAILY 07/20/24 07/20/24 release Previous Rx's ?Medication ?Instructions ?Recorded bupropion HCl 150 mg 24 hr tablet, 150 mg PO QAM #90 tabs 02/26/21 extended release cholecalciferol (vitamin D3) 50 50 mcg PO QAM 90 days #90 caps 02/26/21 mcg (2,000 unit) capsule trazodone 50 mg tablet 50 mg PO BEDTIME #90 tabs 02/26/21 gabapentin 300 mg capsule 300 mg PO BEDTIME 90 days #90 caps 06/12/21 levothyroxine 88 mcg tablet 88 mcg PO DAILY 90 days #90 tabs 08/30/21 ibuprofen 600 mg tablet 600 mg PO Q8H PRN pain #20 tabs 05/08/22 docusate sodium 100 mg capsule 200 mg (2 x 100 mg) PO BEDTIME #60 05/30/24 (Stool Softener) caps Allergies Allergy/AdvReac Type Severity Reaction Status Date / Time metronidazole [From FLAGYL] Allergy Severe CHEST PAIN Verified 08/02/24 02:10 TO LEFT SHOULDER, bacitracin [BACITRACIN] Allergy Intermediate BURNING, Verified 08/02/24 02:10 ITCHING risperidone [From Risperdal] Allergy Intermediate high level Verified 08/02/24 02:10 prolactin aripiprazole [From Abilify] Allergy Mild ITCHING Verified 08/02/24 02:10 iopromide [From Ultravist] Allergy Mild DIZZY, DRY Verified 08/02/24 02:10 THROAT AND MOUTH Vistra 650 Allergy Intermediate attention Uncoded 07/20/24 20:56 issues Review of Systems 2 Review of Systems: Yes all other systems are reviewed and are negative PMFSH Past Medical History Medical History Foot drop, left Constipation Mass of left foot IBS (irritable colon syndrome) Morbid obesity with BMI of 45.0-49.9, adult GERD with esophagitis DMII (diabetes mellitus, type 2) Fibroadenoma of breast Fibromyalgia Hypothyroid PCOS (polycystic ovarian syndrome) PTSD (post-traumatic stress disorder) Surgical History History of excision of mass (08/07/22) History of esophagogastroduodenoscopy (EGD) History of D&C History of hand surgery History of section History of lumpectomy of right breast History of appendectomy Hx of appendectomy Family History Family History Father Acral gangrene Mother Cancer Father Diabetes Gangrene Mother Diabetes Hypertension Thyroid disease Cervical cancer Dementia Son In good health Maternal Grandmother Breast cancer Sister Breast cancer Other Mental health disorder Social History Social History Household Members: Children Housing: Apartment Alcohol intake: never Patient Tobacco Use Status: Never used Tobacco Smoked in Last 30 Days: No Use of substances other than those prescribed or required for medical reasons: No Advance Directives: Yes Advance Directives on File: Yes Advance Directives Date on File: 07/21/24 Do you have a plan to hurt others: No Plan Current occupational status: disabled Sexual orientation: Straight/Heterosexual Gender identity: Female Physical Exam 2 Vital Signs: Vital Signs: Last Vital Signs Temp 97.9 F 08/02/24 07:13 Pulse 83 08/02/24 07:13 Resp 18 08/02/24 07:13 BP 119/73 08/02/24 07:13 Pulse Ox 98 08/02/24 07:13 O2 Del Method Room Air 08/02/24 07:13 BMI result Body Mass Index 42.6 Appearance: Alert. Oriented X3. No acute distress. Eyes: PERRLA, No Nystagmus ENT: Pharynx normal. Oral Mucosa moist Neck: Normal inspection. Neck supple. CVS: Normal heart rate and rhythm. Pulses normal. Respiratory: No respiratory distress. Equal air entry bilateral, no wheezing/rales/rhonchi Abdomen: Soft and suprapubic fullness. Bowel sounds are present, no mass palpable, no CVA tenderness Skin: Skin warm and dry. Normal skin color. Normal skin turgor. Extremities: No lower extremity edema. No calf tenderness Neuro: Oriented X 3. No motor deficit. No sensory deficit.No cerebellar signs , cranial nerves II-XII intact Medical Decision Making Medical Decision Making MDM Narrative: Straight cath was placed and urine drained patient is feeling much better likely medication side effects/anxiety Lab Data [facility] Lab Attestation statement: I reviewed the patient's lab results. 08/02/24 02:49 08/02/24 02:49 Labs: Lab Results 08/02/24 08/02/24 Range/Units 02:49 04:14 WBC 9.2 (4.8-10.8) X10*3/uL RBC 4.46 (4.20-5.50) X10*6/uL Hgb 12.3 (12.0-16.0) g/dl Hct 35.9 L (37.0-47.0) % MCV 80.5 (80.0-98.0) fL MCH 27.6 (27.0-33.0) pg MCHC 34.3 (31.0-35.0) g/dl RDW 13.3 (11.0-16.0) % Plt Count 356 (160-400) X10*3/uL MPV 9.7 (9.4-12.3) fL Immature Gran % (Auto) 0.3 (0.0-0.4) % Neut % (Auto) 67.7 (45-73) % Lymph % (Auto) 24.5 (20-40) % Charles % (Auto) 5.3 (2-11) % Eos % (Auto) 1.8 (0-4) % Baso % (Auto) 0.4 (0-2) % Lymph # (Auto) 2.3 (1.2-4.9) X10*3/uL Charles # (Auto) 0.5 (0.1-1.2) X10*3/uL Eos # (Auto) 0.2 (0.0-0.4) X10*3/uL Baso # (Auto) 0.0 (0.0-0.2) X10*3/uL Abs Immat Gran (auto) 0.03 (0.00-0.03) X10*3/uL Absolute Neuts (auto) 6.2 (2.0-8.3) x10*3/uL Absolute Nucleated RBC 0.000 (0.0-0.012) X10*3/uL Nucleated RBC % (auto) 0.0 (0.0-0.2) /100WBC Sodium 137 (135-145) mmol/L Potassium 3.3 (3.3-5.1) mmol/L Chloride 99 (96-108) mmol/L Carbon Dioxide 27 (22-29) mmol/L Anion Gap 14 (12-20) BUN 17 H (9-16) mg/dL Creatinine 0.67 (0.5-1.4) mg/dL Estim Creat Clear Calc 128.9 Estimated GFR > 60 Random Glucose 99 (60-115) mg/dL Calcium 10.1 D (8.4-10.2) mg/dL Total Bilirubin 0.5 (0.0-1.0) mg/dL AST 26 (5-31) U/L ALT 23 (0-31) U/L Alkaline Phosphatase 77 (39-117) U/L Total Protein 8.7 H (6.5-8.0) g/dL Albumin 4.1 (3.5-5.0) g/dL Lipase 21 (8-78) U/L Urine Color Yellow Urine Appearance Clear Urine pH 5.5 (5.0-9.0) Ur Specific Hamill 1.020 (1.005-1.025) Urine Protein Negative (Neg-Trace) mg/dL Urine Glucose (UA) Negative (Negative) mg/dL Urine Ketones Negative (Negative) mg/dL Urine Blood Negative (Negative) Urine Nitrite Negative (Negative) Ur Leukocyte Esterase Negative (Negative) Influenza Type A (PCR) NEGATIVE (Negative) Influenza Type B (PCR) NEGATIVE (Negative) RSV RNA Qual (PCR) NEGATIVE (Negative) SARS-CoV-2 RNA (RT-PCR) NEGATIVE (Negative) Discharge Plan Discharge Clinical Impression: Acute urinary retention Patient Disposition: er [facility] Transfer Details: BACK TO [facility] [place] Instructions: Acute Urinary Retention in Women (ED) Additional Instructions: Drink plenty of fluids Follow up with pcp if recurrence of the retention Prescriptions: No Action bupropion HCl 150 mg tablet extended release 24 hr 150 mg PO QAM Qty: 90 2RF cholecalciferol (vitamin D3) 50 mcg (2,000 unit) capsule 50 mcg PO QAM 90 Days Qty: 90 2RF trazodone 50 mg tablet 50 mg PO BEDTIME Qty: 90 2RF gabapentin 300 mg capsule 300 mg PO BEDTIME 90 Days Qty: 90 1RF levothyroxine 88 mcg tablet 88 mcg PO DAILY 90 Days Qty: 90 1RF docusate sodium [Stool Softener] 100 mg capsule 200 mg PO BEDTIME Qty: 60 5RF omeprazole 20 mg capsule,delayed release(DR/EC) 20 mg DAILY riboflavin (vitamin B2) 100 mg tablet 200 mg PO BID Emgality Pen 120 mg/mL pen injector 120 mg subcut QMONTH chlorthalidone 25 mg tablet 25 mg PO DAILY ibuprofen 600 mg tablet 600 mg PO Q8H PRN (Reason: pain) Qty: 20 0RF atorvastatin 10 mg tablet 40 mg PO BEDTIME lisinopril 10 mg tablet 10 mg PO DAILY metformin 500 mg tablet extended release 24 hr 1,000 mg PO BID Ozempic 0.25 mg or 0.5 mg (2 mg/3 mL) pen injector 0.5 mg subcut QWEEK Referrals: Sunitha Rosales MD [Primary Care Provider] - Print Language: Sami
[2024-08-02 02:54] LABS: Basophils Percent Auto 0.4 % (0-2); Eosinophils Absolute Auto 0.2 X10*3/uL (0.0-0.4); Eosinophils Percent Auto 1.8 % (0-4); Hematocrit 35.9 % (37.0-47.0); Hemoglobin 12.3 g/dl (12.0-16.0); Imm Gran Abs Auto 0.03 X10*3/uL (0.00-0.03); Imm Gran Pct Auto 0.3 % (0.0-0.4); Lymphocytes Absolute Auto 2.3 X10*3/uL (1.2-4.9); Lymphocytes Percent Auto 24.5 % (20-40); MANUAL DIFF FLAG NO; Mean Corpuscular HGB Conc 34.3 g/dl (31.0-35.0); Mean Corpuscular Hemoglobin 27.6 pg (27.0-33.0); Mean Corpuscular Volume 80.5 fL (80.0-98.0); Mean Platelet Volume 9.7 fL (9.4-12.3); Monocytes Absolute Auto 0.5 X10*3/uL (0.1-1.2); Monocytes Percent Auto 5.3 % (2-11); Neutrophils Absolute Auto 6.2 x10*3/uL (2.0-8.3); Neutrophils Percent Auto 67.7 % (45-73); Platelet Count 356 X10*3/uL (160-400); Red Blood Count 4.46 X10*6/uL (4.20-5.50); Red Cell Distribution Width 13.3 % (11.0-16.0); White Blood Count 9.2 X10*3/uL (4.8-10.8)
[2024-08-02 03:16] LABS: Alanine Aminotransferase 23 U/L (0-31); Albumin Level 4.1 g/dL (3.5-5.0); Anion Gap 14 (12-20); Aspartate Amino Transferase 26 U/L (5-31); Bilirubin Total 0.5 mg/dL (0.0-1.0); Blood Urea Nitrogen 17 mg/dL (9-16); Calcium 10.1 mg/dL (8.4-10.2); Carbon Dioxide 27 mmol/L (22-29); Chloride 99 mmol/L (96-108); Creatinine Clr Calc Pharmacy 128.9; Estimated Glomerular Filt Rate > 60; Glucose Random 99 mg/dL (60-115); Lipase 21 U/L (8-78); Potassium 3.3 mmol/L (3.3-5.1); Sodium 137 mmol/L (135-145); Total Protein 8.7 g/dL (6.5-8.0)
[2024-08-02 03:30] LABS: Influenza A PCR NEGATIVE (Negative); Influenza B PCR NEGATIVE (Negative); Resp Syncy Virus RNA Qual PCR NEGATIVE (Negative); SARS COV2 PCR INHOUSE NEGATIVE (Negative)
[2024-08-02 03:40] LABS: Alkaline Phosphatase 77 U/L (39-117)
[2024-08-02 04:00] VITALS: BP 120/72; PULSE 84; RESP 16; TEMP 36.4; O2SAT 98
--- NOTE | 2024-08-02 04:15 | PC.NURSE ---
pt straight cath'd for urine and sent to lab. put out approx 600cc urine.
[2024-08-02 04:24] LABS: Appearance Urine Clear; Color Urine Yellow; Glucose Urine UA Negative (Negative); Leukocyte Esterase Urine Negative (Negative); Nitrite Urine Negative (Negative); PH 5.5 (5.0-9.0); Urine Blood Negative (Negative); Urine Ketones Negative (Negative); Urine Protein Negative (Neg-Trace)
[2024-08-02 06:00] VITALS: BP 116/71; PULSE 81; RESP 16; TEMP 36.6; O2SAT 98
[2024-08-02 07:13] VITALS: BP 119/73; PULSE 83; RESP 18; TEMP 36.6; O2SAT 98
[2024-08-02 08:02] VITALS: BP 119/73; PULSE 83; RESP 18; TEMP 36.6; O2SAT 98
== END 2024-08-02 08:06 | disposition skilled nursing facility (03) ==
PROVIDERS: Emergency Provider Internal Medicine; PCP Family Medicine
DX: R33.9 Retention of urine, unspecified (principal); Z03.818 Encounter for observation for suspected exposure to other biological agents ruled out; Z79.899 Other long term (current) drug therapy
CPT/HCPCS: 0241U; 36415; 51701; 80053; 81003; 83690; 85025; 99283; 99285

== ENCOUNTER 2024-08-21 02:19 | Emergency (ER) | payer OTHER, SELFPAY ==
[2024-08-21 02:44] VITALS: BP 130/90; PULSE 95; O2SAT 98; BMI 33.3
--- NOTE | 2024-08-21 02:48 | PC.NURSE ---
Rectal exam done by MD at the bedside. No signs of external hemorrhoids noted. Normal rectal exam.
--- NOTE | 2024-08-21 02:48 | ED.GENADULT ---
HPI - General Adult General Chief complaint: General Medical Stated complaint: From SNF w/ rectal pain hx hemorroids x 14 years Time Seen by Provider: 08/21/24 02:34 Source: patient and EMS Mode of arrival: EMS Limitations: no limitations History of Present Illness ED Provider: Dr. Edyta Muñiz HPI narrative: Patient comes to the emergency room complaining of anal pain and skin irritation around the diaper area. Patient denies any rectal bleeding. Patient states that she has history of hemorrhoids. According to EMS, the staff at the [facility] applied some topical cream prior to arrival. Related Data Home Medications ?Medication ?Instructions ?Recorded ?Confirmed galcanezumab-gnlm 120 mg/mL 120 mg subcut QMONTH 05/08/20 07/21/24 subcutaneous pen injector (Emgality Pen) riboflavin (vitamin B2) 100 mg 200 mg PO BID 05/29/20 07/20/24 tablet atorvastatin 10 mg tablet 40 mg PO BEDTIME 07/23/21 07/20/24 chlorthalidone 25 mg tablet 25 mg PO DAILY 07/30/21 07/20/24 semaglutide 0.25 mg or 0.5 mg (2 0.5 mg subcut QWEEK 06/24/23 07/21/24 mg/3 mL) subcutaneous pen injector (Ozempic) lisinopril 10 mg tablet 10 mg PO DAILY 07/30/23 07/20/24 metformin 500 mg tablet,extended 1,000 mg PO BID 07/30/23 07/20/24 release 24 hr omeprazole 20 mg capsule,delayed 20 mg DAILY 07/20/24 07/20/24 release Previous Rx's ?Medication ?Instructions ?Recorded bupropion HCl 150 mg 24 hr tablet, 150 mg PO QAM #90 tabs 02/26/21 extended release cholecalciferol (vitamin D3) 50 50 mcg PO QAM 90 days #90 caps 02/26/21 mcg (2,000 unit) capsule trazodone 50 mg tablet 50 mg PO BEDTIME #90 tabs 02/26/21 gabapentin 300 mg capsule 300 mg PO BEDTIME 90 days #90 caps 06/12/21 levothyroxine 88 mcg tablet 88 mcg PO DAILY 90 days #90 tabs 08/30/21 ibuprofen 600 mg tablet 600 mg PO Q8H PRN pain #20 tabs 05/08/22 docusate sodium 100 mg capsule 200 mg (2 x 100 mg) PO BEDTIME #60 05/30/24 (Stool Softener) caps lidocaine 5 % topical ointment 1 appl topical TID PRN skin 08/21/24 irritation #30 grams nystatin 100,000 unit/gram topical 1 appl topical TID PRN skin 08/21/24 powder (Klayesta) irritation #60 grams Allergies Allergy/AdvReac Type Severity Reaction Status Date / Time metronidazole [From FLAGYL] Allergy Severe CHEST PAIN Verified 08/21/24 02:46 TO LEFT SHOULDER, bacitracin [BACITRACIN] Allergy Intermediate BURNING, Verified 08/21/24 02:46 ITCHING risperidone [From Risperdal] Allergy Intermediate high level Verified 08/21/24 02:46 prolactin aripiprazole [From Abilify] Allergy Mild ITCHING Verified 08/21/24 02:46 iopromide [From Ultravist] Allergy Mild DIZZY, DRY Verified 08/21/24 02:46 THROAT AND MOUTH Vistra 650 Allergy Intermediate attention Uncoded 08/21/24 02:46 issues Review of Systems Review of Systems: Constitutional : No Weight loss, No Fever, No Chills, No Night Sweats, No Fatigue, No Malaise ENT/Mouth : No Hearing loss, No Ear Pain, No Nasal Congestion, No Sinus Pain, No Hoarseness, No sore throat, No Rhinorrhea, No Swallowing Difficulty Eyes: No Eye Pain, No Swelling, No Redness, No Foreign Body, No Discharge, No Vision Changes Cardiovascular : No Chest Pain, No SOB, No Dyspnea on Exertion, No Orthopnea, No Edema, No Palpitations Respiratory : No Cough, No Sputum, No Wheezing, No Smoke Exposure, No Dyspnea Gastrointestinal : No Nausea, No Vomiting, No Diarrhea, No Constipation, No abdominal Pain, No Hematochezia, No Melena , complaining of anal burning sensation Genitourinary : no irregular bleeding, No Dysuria, No Urinary Frequency, No Hematuria, No Urinary Incontinence, No Urgency, No Flank Pain, No Urinary Flow Changes, No Hesitancy Musculoskeletal : No joint pain, No Myalgias, No Joint Swelling Skin : complaining of skin irritation around the diaper area Neuro : No Weakness, No Numbness, No Paresthesias, No Loss of Consciousness, No Dizziness, No Headache Psych : No Anxiety/Panic, No Depression, No SI/HI/AH/VH, No Social Issues, Heme/Lymph: No Bruising, No Bleeding,No Lymphadenopathy Endocrine : No Polyuria, No Polydipsia, No Temperature Intolerance [facility] Past Medical History Medical History Foot drop, left Constipation Mass of left foot IBS (irritable colon syndrome) Morbid obesity with BMI of 45.0-49.9, adult GERD with esophagitis DMII (diabetes mellitus, type 2) Fibroadenoma of breast Fibromyalgia Hypothyroid PCOS (polycystic ovarian syndrome) PTSD (post-traumatic stress disorder) Surgical History History of excision of mass (08/07/22) History of esophagogastroduodenoscopy (EGD) History of D&C History of hand surgery History of section History of lumpectomy of right breast History of appendectomy Hx of appendectomy Family History Family History Father Acral gangrene Mother Cancer Father Diabetes Gangrene Mother Diabetes Hypertension Thyroid disease Cervical cancer Dementia Son In good health Maternal Grandmother Breast cancer Sister Breast cancer Other Mental health disorder Social History Social History Household Members: Children Housing: Apartment Alcohol intake: never Patient Tobacco Use Status: Never used Tobacco Advance Directives Date on File: 07/21/24 Do you have a plan to hurt others: No Plan Current occupational status: disabled Sexual orientation: Straight/Heterosexual Gender identity: Female Physical Exam ED Vital Signs: BMI result Body Mass Index 33.3 Const Other: Appearance: Alert. Oriented X3. No acute distress. Eyes: Pupils equal, round and reactive to light. ENT: Pharynx normal. Neck: Normal inspection. Neck supple. No lymph nodes noted. No crepitus CVS: Normal heart rate and rhythm. Pulses normal. Normal S1 and S2 Respiratory: No respiratory distress. Breath sounds normal. No Wheezing. No rales Abdomen: Soft and nontender. No rigidity. No distention. rectal exam does not show any thrombosed hemorrhoids, no external hemorrhoids. No bleeding. Skin: Skin warm and dry. Normal skin color. Normal skin turgor. Skin between the buttocks is irritated, candidiasis Extremities: No lower extremity edema. No Lacerations. No Rash Neuro: Oriented X 3. No motor deficit. No sensory deficit. Moving all extremities. No slurred speech. CN 2 through 12 grossly intact Psych: calm, cooperative, normal affect Medical Decision Making Medical Decision Making MDM Narrative: patient does not have thrombosed hemorrhoids, incision and drainage not indicated at this time. Patient's skin irritated from the diaper, diaper candidiasis/dermatitis. Patient will need very cream. Discharge Plan Discharge Clinical Impression: Candidiasis, Anal pain Patient Disposition: Home, Self-Care Instructions: Yeast Infection (ED), Sitz Bath (DC), Rectal Pain (ED) Additional Instructions: apply nystatin to the irritated skin area. apply lidocaine to the anal area for pain relief Prescriptions: New nystatin [Klayesta] 100,000 unit/gram powder 1 appl topical TID PRN (Reason: skin irritation) Qty: 60 0RF lidocaine 5 % ointment 1 appl topical TID PRN (Reason: skin irritation) Qty: 30 0RF Rx Instructions: applied to anal area p.r.n. pain in 10 minutes before bowel movement No Action bupropion HCl 150 mg tablet extended release 24 hr 150 mg PO QAM Qty: 90 2RF cholecalciferol (vitamin D3) 50 mcg (2,000 unit) capsule 50 mcg PO QAM 90 Days Qty: 90 2RF trazodone 50 mg tablet 50 mg PO BEDTIME Qty: 90 2RF gabapentin 300 mg capsule 300 mg PO BEDTIME 90 Days Qty: 90 1RF levothyroxine 88 mcg tablet 88 mcg PO DAILY 90 Days Qty: 90 1RF docusate sodium [Stool Softener] 100 mg capsule 200 mg PO BEDTIME Qty: 60 5RF omeprazole 20 mg capsule,delayed release(DR/EC) 20 mg DAILY riboflavin (vitamin B2) 100 mg tablet 200 mg PO BID Emgality Pen 120 mg/mL pen injector 120 mg subcut QMONTH chlorthalidone 25 mg tablet 25 mg PO DAILY ibuprofen 600 mg tablet 600 mg PO Q8H PRN (Reason: pain) Qty: 20 0RF atorvastatin 10 mg tablet 40 mg PO BEDTIME lisinopril 10 mg tablet 10 mg PO DAILY metformin 500 mg tablet extended release 24 hr 1,000 mg PO BID Ozempic 0.25 mg or 0.5 mg (2 mg/3 mL) pen injector 0.5 mg subcut QWEEK Print Language: [place]
--- NOTE | 2024-08-21 03:38 | PC.NURSE ---
Nurse to nurse report provided to [facility]. Pt returning via EMS.
[2024-08-21 03:39] VITALS: BP 106/64; PULSE 95; RESP 14; O2SAT 98
[2024-08-21 03:40] VITALS: BP 106/64; PULSE 95; RESP 14; TEMP -17.7; TEMP 0; O2SAT 98
== END 2024-08-21 03:40 | disposition home or self-care (01) ==
PROVIDERS: Emergency Provider Emergency Medicine; PCP Family Medicine
DX: B37.2 Candidiasis of skin and nail (principal); K62.89 Other specified diseases of anus and rectum; E11.9 Type 2 diabetes mellitus without complications
CPT/HCPCS: 99283

== ENCOUNTER 2025-01-06 19:37 | Inpatient (IN) | payer OTHER, SELFPAY ==
--- NOTE | 2025-01-06 | ECG_ITS ---
Test Reason : SOB Blood Pressure : */* mmHG Vent. Rate : 94 BPM Atrial Rate : 94 BPM P-R Int : 128 ms QRS Dur : 88 ms QT Int : 344 ms P-R-T Axes : 61 33 35 degrees QTcB Int : 430 ms Normal sinus rhythm Cannot rule out Inferior infarct , age undetermined Abnormal ECG When compared with ECG of 20-Jul-2024 21:27, Minimal criteria for Inferior infarct are now Present Referred By: Generic ED Physician Electronically Signed By: LILY WILLS
--- NOTE | ~2025-01-06 | XR_ITS ---
CLINICAL HISTORY: Line placement 1 view chest x-ray Comparison: CR/MT/SR - XR CHEST 1 VIEW - 01/25/25 10:15 EDT Findings: Layering pleural effusions blunt the costophrenic sulci, [id number]-right. Endotracheal tube terminates 2.5 cm above the kita. Normal size heart. No acute fracture. An enteric tube is present with the distal tip in the stomach. IMPRESSION: 1. Endotracheal tube terminates 2.5 cm above the kita. 2. An enteric tube is present with the distal tip in the stomach. 3. Layering pleural effusions blunt the costophrenic sulci, [id number]-right. This document has been electronically signed by: Dinesh Plascencia MD, PHD on 01/25/2025 23:01:07
--- NOTE | ~2025-01-06 | XR_ITS ---
EXAMINATION: XR CHEST CLINICAL INFORMATION: et tube COMPARISON: January 06, 2025. TECHNIQUE: Frontal view of the chest was obtained. FINDINGS: The endotracheal tube appears to be 1 cm above kita. Questionable pneumomediastinum at the thoracic inlet. Mild prominence of the interstitial markings in the perihilar region. No gross consolidation or pleural effusion. There is gas filled prominent stomach and intestine no fully included in the [id number]. XR/XR chest 1V IMPRESSION: Endotracheal tube ends at 1 cm above kita. Questionable pneumomediastinum, thoracic inlet level. Electronically signed by: Darell Patrick MD 01/09/2025 07:54 AM EDT
--- NOTE | ~2025-01-06 | XR_ITS ---
EXAMINATION: XR CHEST 1 VIEW HISTORY: s/p tracheostomy COMPARISON: Comparison is made with the prior examination dated 01/25/2025. FINDINGS: A single AP portable view of the chest performed at 8:58 AM is submitted. A tracheostomy tube is noted with its tip approximately 2 cm above the kita. There are low lung volumes. The lungs are grossly clear. There is no pleural effusion, pneumothorax, or pulmonary vascular congestion. The heart is normal in size. There is degenerative disc disease of the spine. XR/XR chest 1V IMPRESSION: 1. Tracheostomy tube tip approximately 2 cm above the kita. 2. Low lung volumes. The lungs are grossly clear. Electronically signed by: Florentin Grimaldo MD 01/30/2025 09:19 AM EDT
--- NOTE | ~2025-01-06 | XR_ITS ---
CLINICAL HISTORY: Tube placement 1 view chest x-ray Comparison: Prior chest radiographs most recently on 01/10/2021 Findings: Tip of the endotracheal tube is somewhat difficult to visualized but appears to be positioned just above the level of the kita. Left basilar density. Right lung is clear. No apparent pneumothorax. Normal heart size and central pulmonary vascularity. No acute soft tissue or osseous abnormality. Impression: 1. Tip of the ET tube appears to be positioned just above the level of kita. 2. Left basilar density representing either pleural effusion, atelectasis versus infiltrate. Continued imaging surveillance to ensure complete clearing is recommended. 3. Additional findings as above. This document has been electronically signed by: Grazyna Guerrero MD on 01/11/2025 20:26:47
--- NOTE | ~2025-01-06 | XR_ITS ---
CLINICAL HISTORY: dyspnea 1 view chest x-ray Comparison: None provided Findings: Low lung volumes are present. Cardiac silhouette is prominent. Mediastinum is normal. Costophrenic angles are blunted bilaterally. No large pleural effusion. No consolidative opacities. No acute fracture. IMPRESSION: 1. Low lung volumes 2. Cardiomegaly 3. Possible small pleural effusions versus sequelae of low lung volumes. This document has been electronically signed by: Jamey Madden III, MD PHD on 01/06/2025 21:41:54
--- NOTE | ~2025-01-06 | XR_ITS ---
CLINICAL HISTORY: Hypoxia, ? pulm edema 1 view chest x-ray Comparison: Prior chest radiographs and chest CTs most recently on 01/09/2025 Findings: Endotracheal tube is no longer visualized. Low lung volumes. Linear bibasilar densities. Normal heart size and central pulmonary vascularity when accounting for reduced lung volumes. No acute soft tissue or osseous abnormality. Impression: 1. Interval removal of endotracheal tube. 2. Linear bibasilar densities, nonspecific may represent atelectasis or an infiltrate. This document has been electronically signed by: Grazyna Guerrero MD on 01/11/2025 00:15:23
--- NOTE | ~2025-01-06 | CT_ITS ---
CLINICAL HISTORY: Tachycardia; Hypoxia; SOB CT angiography chest with contrast. 3D Postprocessing. Comparison: None provided Findings: The heart is normal size. RV/LV ratio is normal. Unremarkable thoracic aorta and great vessels. No aneurysm. No pulmonary artery filling defects. The visualized thyroid is diminutive. The mediastinum are unremarkable. Bibasilar dependent atelectasis and consolidation are present. The visualized upper abdomen is unremarkable. The bones are intact. IMPRESSION: 1. No pulmonary emboli. 2. Bibasilar atelectasis and consolidation. This may represent sequelae of infection, inflammation, or pneumonitis This document has been electronically signed by: Jamey Madden III, MD PHD on 01/07/2025 04:34:54
--- NOTE | ~2025-01-06 | XR_ITS ---
EXAMINATION: XR CHEST CLINICAL INFORMATION: Please Assess Any Infectious Process COMPARISON: January 30, 2025 TECHNIQUE: Frontal view of the chest was obtained. FINDINGS: Tracheostomy tube appears unchanged. There are low lung volume is. Hazy opacity in the left lung base has decreased since the prior examination and the left hemidiaphragm is more visualized than previously, but still obscured medially. There are also Newly. Minimal right basilar atelectasis is evident. XR/XR chest 1V IMPRESSION: Improved left basilar density with persistent air bronchograms in the medial left lung base likely related to decreased pleural effusion and improved aeration of left lower lobe pneumonia. Electronically signed by: Paul Mcclelland MD 02/12/2025 02:00 PM EDT
--- NOTE | ~2025-01-06 | XR_ITS ---
EXAMINATION: XR CHEST CLINICAL INFORMATION: sob COMPARISON: 01/11/2025. 01/10/2025. TECHNIQUE: Frontal view of the chest was obtained. FINDINGS: Endotracheal tube, enteric tube, right IJ central venous catheter are in good in position. Numerous leads overlie the chest. The cardiac silhouette is not enlarged and stable. There is perihilar haziness. There are small layering pleural effusions, worsening from the previous, with underlying parenchymal opacities, possibly atelectasis or pneumonia. There is no perceptible pneumothorax. No focal osseous or soft tissue abnormality. XR/XR chest 1V IMPRESSION: 1. Lines and tubes in good position. 2. Worsening bilateral effusions with bibasilar opacities/consolidations, possibly atelectasis although pneumonia is not excluded. Major differential includes developing/worsening pulmonary edema pattern. Electronically signed by: Hiram Alonso MD 01/17/2025 04:35 PM EDT
--- NOTE | ~2025-01-06 | XR_ITS ---
CLINICAL HISTORY: TLC placement 1 view chest x-ray Comparison: Prior chest x-rays most recently earlier on 01/11/2025 Findings: Right IJ central venous catheter tip terminates near the superior right atrium. No pneumothorax. Unchanged position of the ET tube and nasogastric tube. Persistent left basilar density. Normal heart size and central pulmonary vascularity. No acute soft tissue or osseous abnormality. Impression: 1. Right IJ central venous catheter tip projecting over superior right atrium. 2. Additional findings as above. This document has been electronically signed by: Grazyna Guerrero MD on 01/12/2025 01:17:32
--- NOTE | ~2025-01-06 | XR_ITS ---
CLINICAL HISTORY: Hypoxia 1 view chest x-ray Comparison: CR/SR - XR CHEST 1 VIEW - 01/30/25 08:58 EDT Findings: Similar hazy left lower lobe density. Normal size heart. No acute fracture. Midline tracheostomy. IMPRESSION: Similar hazy left lower lobe density, suggestive of combination of consolidation and effusion. This document has been electronically signed by: Avery Woody MD on 01/30/2025 22:49:34
--- NOTE | ~2025-01-06 | US_ITS ---
CLINICAL HISTORY: lower extremity swelling, cold right>left Venous duplex ultrasound bilateral lower extremity Comparison: None provided Findings: The imaged deep veins are compressible with unremarkable Doppler color flow and spectral tracings. Bilateral peroneal and bilateral posterior tibial veins are obscured. Increased echogenicity of the imaged superficial soft tissues nonspecific and can be seen with edema and cellulitis. IMPRESSION: 1. Negative for bilateral lower extremity deep vein thrombosis. 2. Suboptimal evaluation of the veins inferior to the knee. Consider attention on follow-up, if clinically indicated. This document has been electronically signed by: Michael Rodriguez MD on 01/09/2025 21:49:32
--- NOTE | ~2025-01-06 | XR_ITS ---
EXAMINATION: XR CHEST 1 VIEW HISTORY: hypoxia COMPARISON: Comparison is made with the prior examination dated 01/17/2025. FINDINGS: A single AP portable view of the chest performed at 10:16 AM is submitted. There is persistent opacification of the left lung base which may represent atelectasis, pneumonia, or pleural fluid. The right lung is clear. There is no pneumothorax or pulmonary vascular congestion. The heart is normal in size. There is degenerative disc disease of the spine. XR/XR chest 1V IMPRESSION: Persistent opacification of the left lung base which may represent atelectasis, pneumonia, or pleural fluid. Electronically signed by: Florentin Grimaldo MD 01/25/2025 10:31 AM EDT
[2025-01-06 19:37] VITALS: BP 139/72; BP 139/96; PULSE 102; PULSE 105; RESP 19; TEMP 36.6; O2SAT 100; O2SAT 87; BMI 37.8
[2025-01-06 19:39] VITALS: O2SAT 99
--- NOTE | 2025-01-06 19:56 | PC.NURSE ---
Pt A&Ox3, reports she can't speak, states in writing when im stressed I loose my voice then i have to drink to hydrate my throat to speak. I have hoarseness . Pt communicating through writing.
[2025-01-06 20:24] LABS: MANUAL DIFF FLAG NO
[2025-01-06 20:25] LABS: Hematocrit 36.8 % (37.0-47.0); Hemoglobin 12.7 g/dl (12.0-16.0); Imm Gran Abs Auto 0.04 X10*3/uL (0.00-0.03); Imm Gran Pct Auto 0.4 % (0.0-0.4); Lymphocytes Absolute Auto 1.7 X10*3/uL (1.2-4.9); Mean Corpuscular HGB Conc 34.5 g/dl (31.0-35.0); Mean Corpuscular Hemoglobin 28.2 pg (27.0-33.0); Mean Corpuscular Volume 81.6 fL (80.0-98.0); NRBC Abs Auto 0.000 X10*3/uL (0.0-0.012); NRBC Pct Auto 0.0 /100WBC (0.0-0.2); Platelet Count 333 X10*3/uL (160-400); Red Blood Count 4.51 X10*6/uL (4.20-5.50); White Blood Count 10.7 X10*3/uL (4.8-10.8)
[2025-01-06 20:29] LABS: VBG HCO3 40 mmol/L (22-26); VBG O2 % Saturation 94.0 %
[2025-01-06 20:32] LABS: Venous Blood Gas Refer to POC result
[2025-01-06 20:45] LABS: Alanine Aminotransferase 17 U/L (0-31); Albumin Level 4.4 g/dL (3.5-5.0); Alkaline Phosphatase 95 U/L (39-117); Anion Gap 15 (12-20); Aspartate Amino Transferase 21 U/L (5-31); Blood Urea Nitrogen 15 mg/dL (9-16); Calcium 9.4 mg/dL (8.4-10.2); Carbon Dioxide 32 mmol/L (22-29); Chloride 94 mmol/L (96-108); Creatinine Clr Calc Pharmacy 192.1; Estimated Glomerular Filt Rate > 60; Potassium 3.7 mmol/L (3.3-5.1); Sodium 137 mmol/L (135-145); Total Protein 8.0 g/dL (6.5-8.0)
[2025-01-06 20:47] LABS: Troponin-I High Sensitivity < 2.7 ng/L (<3.5-17.0)
--- NOTE | 2025-01-06 20:58 | MHC.EDTECH ---
I gave the patient a pencil and pad so she can communicate with the staff due to her voice going in and out and SOB. She was c/o the rehab she was at ([facility]) treated her bad, the nurse almost gave her another patient medication. If she need to go to another facility, please don't send her to [facility]
[2025-01-06 21:03] LABS: Resp Syncy Virus RNA Qual PCR NEGATIVE (Negative); SARS COV2 PCR INHOUSE NEGATIVE (Negative)
[2025-01-06 22:40] VITALS: BP 117/59; PULSE 92; RESP 18; O2SAT 100
--- NOTE | 2025-01-06 23:05 | ED.SOB ---
HPI - SOB/Dyspnea General Chief Complaint: Dyspnea Stated Complaint: sob, diff breathing Time Seen by Provider: 01/06/25 23:07 Source: patient and EMS Mode of arrival: EMS Limitations: no limitations History of Present Illness ED Provider: Hiram GARCIA HPI Narrative: The patient is a 44-year-old female presenting to the ED via EMS from home for evaluation of shortness of breath. The patient has a history of obesity, PCOS, hypothyroidism, hyperlipidemia, GERD, fibromyalgia, chronic back pain, headaches, and depression. The patient has developed a gradually worsening motor neuropathy over the last 2 years, within the past year she has been unable to speak or transfer using at wheelchair. The patient was evaluated Neurology, MRI was obtained which ruled out demyelinating disease, working diagnosis of possible myasthenia gravis. The patient was experiencing recurrent falls for which she was seen in July of this year but discharged home at her request to care for a family member, patient has weakness continued to progress and in late October she was seen again at this facility, and then discharged to [facility] from which she was discharged yesterday. The patient reports since returning home yesterday she developed worsening shortness of breath, worse with lying down. The patient denies associated fever, vomiting, diarrhea, chest pain, abdominal pain, or recent fall or sick contacts. Related Data Home Medications ?Medication ?Instructions ?Recorded ?Confirmed galcanezumab-gnlm 120 mg/mL 120 mg subcut QMONTH 05/08/20 07/21/24 subcutaneous pen injector (Emgality Pen) riboflavin (vitamin B2) 100 mg 200 mg PO BID 05/29/20 07/20/24 tablet atorvastatin 10 mg tablet 40 mg PO BEDTIME 07/23/21 07/20/24 chlorthalidone 25 mg tablet 25 mg PO DAILY 07/30/21 07/20/24 semaglutide 0.25 mg or 0.5 mg (2 0.5 mg subcut QWEEK 06/24/23 07/21/24 mg/3 mL) subcutaneous pen injector (Ozempic) lisinopril 10 mg tablet 10 mg PO DAILY 07/30/23 07/20/24 metformin 500 mg tablet,extended 1,000 mg PO BID 07/30/23 07/20/24 release 24 hr Previous Rx's ?Medication ?Instructions ?Recorded bupropion HCl 150 mg 24 hr tablet, 150 mg PO QAM #90 tabs 02/26/21 extended release cholecalciferol (vitamin D3) 50 50 mcg PO QAM 90 days #90 caps 02/26/21 mcg (2,000 unit) capsule trazodone 50 mg tablet 50 mg PO BEDTIME #90 tabs 02/26/21 gabapentin 300 mg capsule 300 mg PO BEDTIME 90 days #90 caps 06/12/21 levothyroxine 88 mcg tablet 88 mcg PO DAILY 90 days #90 tabs 08/30/21 ibuprofen 600 mg tablet 600 mg PO Q8H PRN pain #20 tabs 05/08/22 docusate sodium 100 mg capsule 200 mg (2 x 100 mg) PO BEDTIME #60 05/30/24 (Stool Softener) caps lidocaine 5 % topical ointment 1 appl topical TID PRN skin 08/21/24 irritation #30 grams nystatin 100,000 unit/gram topical 1 appl topical TID PRN skin 08/21/24 powder (Klayesta) irritation #60 grams omeprazole 20 mg capsule,delayed 20 mg PO QAM #30 caps 11/27/24 release Allergies Allergy/AdvReac Type Severity Reaction Status Date / Time metronidazole (From FLAGYL) Allergy Severe CHEST PAIN Verified 01/06/25 19:39 TO LEFT SHOULDER, bacitracin (BACITRACIN) Allergy Intermediate BURNING, Verified 01/06/25 19:39 ITCHING risperidone (From Risperdal) Allergy Intermediate high level Verified 01/06/25 19:39 prolactin aripiprazole (From Abilify) Allergy Mild ITCHING Verified 01/06/25 19:39 iopromide (From Ultravist) Allergy Mild DIZZY, DRY Verified 01/06/25 19:39 THROAT AND MOUTH Vistra 650 Allergy Intermediate attention Uncoded 08/21/24 02:46 issues Review of Systems Review of Systems: Yes all other systems are reviewed and are negative PMFSH Past Medical History Medical History Foot drop, left Constipation Mass of left foot IBS (irritable colon syndrome) Morbid obesity with BMI of 45.0-49.9, adult GERD with esophagitis DMII (diabetes mellitus, type 2) Fibroadenoma of breast Fibromyalgia Hypothyroid PCOS (polycystic ovarian syndrome) PTSD (post-traumatic stress disorder) Surgical History History of excision of mass (08/07/22) History of esophagogastroduodenoscopy (EGD) History of D&C History of hand surgery History of section History of lumpectomy of right breast History of appendectomy Hx of appendectomy Family History Family History Father Acral gangrene Mother Cancer Father Diabetes Gangrene Mother Diabetes Hypertension Thyroid disease Cervical cancer Dementia Son In good health Maternal Grandmother Breast cancer Sister Breast cancer Other Mental health disorder Social History Social History Household Members: Children Housing: Apartment Alcohol intake: never Patient Tobacco Use Status: Never used Tobacco Smoked in Last 30 Days: No Use of substances other than those prescribed or required for medical reasons: No Advance Directives: Yes Advance Directives on File: Yes Advance Directives Date on File: 07/21/24 Patient : No Current occupational status: disabled Sexual orientation: Straight/Heterosexual Gender identity: Female Physical Exam Vital Signs: Vital Signs: Last Vital Signs Temp 97.9 F 01/06/25 19:37 Pulse 85 01/07/25 04:10 Resp 18 01/07/25 04:10 BP 142/86 H 01/07/25 04:10 Pulse Ox 100 01/07/25 04:10 O2 Del Method Nasal Cannula 01/07/25 04:10 O2 Flow Rate 2 01/07/25 04:10 BMI result Body Mass Index 37.8 CONSTITUTIONAL: The patient appears chronically ill, morbidly obese, but otherwise, well nourished and in no acute distress. Vital signs as documented. HEAD: Atraumatic, normocephalic. EYES: EOMs grossly intact, pupils equal, conjunctiva clear, no exudate. ENT: Nares patent, no discharge. The patient's jaw is flaccid, unable to communicate by voice, Airway patent, no audible stridor, visible mucosa is dry but otherwise pink without noted lesions. NECK: Trachea is midline, no obvious masses or gross abnormalities. CHEST: Symmetric movement, normal appearance. LUNGS: LS present but diminished throughout, Non-labored work of breathing with FiO2 at rest in the exam stretcher. CARDIAC: Regular Rhythm, S1/S2 appreciated, no murmurs, rubs or gallops. ABDOMEN: Abdomen soft and non-tender x4 quadrants, no palpable masses or organomegaly. : Deferred. EXTREMITIES: Flaccid tone, however patient is able to move her upper extremities to write on a note pad. No obvious acute injury or deformity noted. NEURO: Alert, patient is unable to cooperate with the remainder of neurologic exam. SKIN: Warm, dry, color appropriate, normal turgor. No rashes noted. Medications Administered Generic Name Dose Route Start Last Admin Trade Name Freq PRN Reason Stop Dose Admin Azithromycin 500 mg/ Sodium 250 mls @ 125 mls/hr 01/07/25 06:45 01/07/25 06:52 Chloride IV 01/07/25 08:44 125 mls/hr ONCE ONE Administration Discontinued Medications Generic Name Dose Route Start Last Admin Trade Name Freq PRN Reason Stop Dose Admin Albuterol/Ipratropium 3 ml 01/06/25 23:08 01/06/25 23:21 Albuterol/Iprat 2.5/0.5mg 3 Ml Ampul.Neb INHALE 01/06/25 23:09 3 ml ONCE ONE Administration Ceftriaxone Sodium 1 gm 01/06/25 23:11 01/06/25 23:34 Ceftriaxone Sodium 1 Gm Vial IVPUSH 01/06/25 23:12 1 gm ONCE ONE Administration Sodium Chloride 1,650 mls @ 999 mls/hr 01/06/25 23:15 01/07/25 01:27 Ns IV 01/07/25 00:54 Infused .Q1H40M RADHA Infusion Iohexol 100 ml 01/07/25 02:47 01/07/25 02:48 Iohexol 350 Mg/Ml 100 Ml Infus..Btl IV 01/07/25 02:48 100 ml ONCE ONE Administration Medical Decision Making Medical Decision Making MDM Narrative: 11:12 PM 01/06/2025 (Kahlil GARCIA): The patient is a 44-year-old female presenting to the ED for evaluation of worsening shortness of breath after being discharged home yesterday from [facility] where she was staying due to progressively worsening muscle wasting/weakness disorder, thought to possibly be myasthenia gravis but pending EMG studies by Neurology. The patient was found to be hypoxic at 87% with tachycardia and diminished breath sounds. The patient has no reported diagnosis of COPD or other respiratory disease. Laboratory evaluation shows negative viral swab, no leukocytosis, or significant anemia. Chemistry shows no electrolyte abnormality, no NADER. VBG shows HC03 of 40, but no acidosis. The patient's chest x-ray shows poor inspiratory effort as expected given the patient's muscular disease, no obvious consolidation. Due to the patient's tachycardia, hypoxia, and subjective shortness of breath, differential includes functional hypoxemia, subclinical pneumonia, or developing respiratory disease. Sepsis protocol initiated, patient is morbidly obese, fluid bolus ordered based on ideal body weight. We will add on BNP and lactic acid, initiate prophylactic antibiotics, and consider CT chest to further evaluate patient's new onset shortness of breath. 01/07/25 Matthew Katz MD 06:58 I assumed care of this patient from my colleague, physician audiology assistant Hiram Pérez at 04:00 hours. The patient is a 44-year-old female with a history of GERD, diabetes, fibromyalgia, hypothyroidism, PCOS, PTSD, IBS, depression who has developed gradually worsening motor neuropathy over the past 2 years possibly secondary to myasthenia gravis who was discharged yesterday from at [facility]. Patient states that while she was at the rehab she was given nebulizer treatments for shortness of breath. Since being home she had increased shortness of breath which was worse with lying down. CBC was unremarkable. Lactic acid was 0.9. Troponin was below detectable limits. VBG: PH 7.37, pCO2 69, bicarb 94-compensated hypercarbia possibly secondary to hypoventilation from her muscle disorder.. CT pulmonary angiogram PE protocol negative for PE. Lungs revealed bibasilar consolidations. Patient was treated with DuoNeb, ceftriaxone 1 g IV and azithromycin 500 mg IV. 07:13 I did discuss the patient's presentation with the covering hospitalist, and the patient will be admitted for further treatment. Admission/Observation Consideration of admission/observation: Escalation of care including admission/observation considered Lab Data MDM Lab Attestation statement: I reviewed the patient's lab results. 01/06/25 20:14 01/06/25 20:14 Labs: Lab Results 01/06/25 01/06/25 01/06/25 Range/Units 20:14 20:25 23:32 WBC 10.7 (4.8-10.8) X10*3/uL RBC 4.51 (4.20-5.50) X10*6/uL Hgb 12.7 (12.0-16.0) g/dl Hct 36.8 L (37.0-47.0) % MCV 81.6 (80.0-98.0) fL MCH 28.2 (27.0-33.0) pg MCHC 34.5 (31.0-35.0) g/dl RDW 14.3 (11.0-16.0) % Plt Count 333 (160-400) X10*3/uL MPV 8.7 L (9.4-12.3) fL Immature Gran % (Auto) 0.4 (0.0-0.4) % Neut % (Auto) 78.6 H (45-73) % Lymph % (Auto) 15.9 L (20-40) % Burt % (Auto) 4.6 (2-11) % Eos % (Auto) 0.2 (0-4) % Baso % (Auto) 0.3 (0-2) % Lymph # (Auto) 1.7 (1.2-4.9) X10*3/uL Burt # (Auto) 0.5 (0.1-1.2) X10*3/uL Eos # (Auto) 0.0 (0.0-0.4) X10*3/uL Baso # (Auto) 0.0 (0.0-0.2) X10*3/uL Abs Immat Gran (auto) 0.04 H (0.00-0.03) X10*3/uL Absolute Neuts (auto) 8.4 H (2.0-8.3) x10*3/uL Absolute Nucleated RBC 0.000 (0.0-0.012) X10*3/uL Nucleated RBC % (auto) 0.0 (0.0-0.2) /100WBC VBG pH 7.37 (7.32-7.43) VBG pCO2 69 mmHg VBG pO2 82 mmHg VBG HCO3 40 H (22-26) mmol/L VBG O2 Saturation 94.0 % VBG Base Excess 12.0 mmol/L Sodium 137 (135-145) mmol/L Potassium 3.7 (3.3-5.1) mmol/L Chloride 94 L (96-108) mmol/L Carbon Dioxide 32 H (22-29) mmol/L Anion Gap 15 (12-20) BUN 15 (9-16) mg/dL Creatinine 0.42 L (0.5-1.4) mg/dL Estim Creat Clear Calc 192.1 Estimated GFR > 60 Random Glucose 120 H (60-115) mg/dL Lactic Acid 0.9 (0.5-2.0) mmol/L Calcium 9.4 D (8.4-10.2) mg/dL Total Bilirubin 0.3 (0.0-1.0) mg/dL AST 21 (5-31) U/L ALT 17 (0-31) U/L Alkaline Phosphatase 95 (39-117) U/L Troponin I High Sens < 2.7 (<3.5-17.0) ng/L B-Natriuretic Peptide 12 (<100) pg/mL Total Protein 8.0 (6.5-8.0) g/dL Albumin 4.4 (3.5-5.0) g/dL Beta HCG, Quant < 2 mIU/mL Influenza Type A (PCR) NEGATIVE (Negative) Influenza Type B (PCR) NEGATIVE (Negative) RSV RNA Qual (PCR) NEGATIVE (Negative) SARS-CoV-2 RNA (RT-PCR) NEGATIVE (Negative) Radiology Impression Discussion of test interpretation with radiology: I have reviewed the radiologist's reading. Radiologist Impression: CT angiography chest with contrast. 3D Postprocessing. Comparison: None provided Findings: The heart is normal size. RV/LV ratio is normal. Unremarkable thoracic aorta and great vessels. No aneurysm. No pulmonary artery filling defects. The visualized thyroid is diminutive. The mediastinum are unremarkable. Bibasilar dependent atelectasis and consolidation are present. The visualized upper abdomen is unremarkable. The bones are intact. IMPRESSION: 1. No pulmonary emboli. 2. Bibasilar atelectasis and consolidation. This may represent sequelae of infection, inflammation, or pneumonitis This document has been electronically signed by: Jamey Madden III, MD PHD on 01/07/2025 04:34:54 Critical Care Time Critical Care Time Critical Care Time: Yes Total Critical Care Time: 35 Attestation: Critical Care: The patient was critically ill with a high probability of imminent or life threatening deterioration. I spent greater than 30 minutes of discontinuous time evaluating the patient,delivering critical care at the bedside, discussing and evaluating pertinent data with consultants. Critical care time does not include time spent performing separately billable procedures or teaching. Total time spent performing critical care was 35 minutes. Discharge Plan Discharge Clinical Impression: Pneumonia Qualifiers: Pneumonia type: due to unspecified organism Laterality: bilateral Lung location: lower lobe of lung Qualified Code(s): J18.9 - Pneumonia, unspecified organism Patient Disposition: Admitted As Inpatient Print Language: Czech
--- OUTSIDE RECORDS SUMMARY | 2025-01-06 23:09 | XMS_ITS | Data Portability ---
Author Organization [employer] [facility], [facility] [employer] [facility] Address [address] [place] [address] Care Team Providers Care Entertainment [employer] Media Correspondent Name Role Phone HIM [facility] OTHER [facility] OTHER [phone] Assessment Encounter Date Assessment Date Assessment LastModified by Organization Details LastModified Time 04/24/2024 04/24/2024 As noted, we were called to see this patient regarding concerns of knee pain. Evaluation in the field was performed by my justowriter operator colleague, as noted above, I provided real-time [...] Orders Diflucan 150 mg tablet 2023 024 [facility], [address] [place] [address], [phone], 11:39:23 Patient TargetsNo targets recorded. Patient InstructionsNo instructions recorded. Reason for Referral None Reported. Medical Equipment None Reported. Allergies Allergen ID Allergen Name Allergen Category Reaction Reaction Severity Criticality Documentation Date Start Date Code Code System Note Provider Name and Address Organization Details Recorded Time 19263 loperamid e medicatio n Not available Not available Not available 06/08/2024 6468 RxNorm Not Available [facility] - production 14:37:50 90094 Risperdal medicatio n Not available Not available Not available 06/08/2024 39791 8 RxNorm Not Available [facility] - production 14:37:50 28339 Terramyci n with Polymyxin B medicatio n Not available Not available Not available 06/08/2024 84882 2 RxNorm Not Available [facility] - production 14:37:50 5455 metronida zole medicatio n Not available Not available Not available 01/04/2024 6922 RxNorm Not Available [facility] - production 03:42:28 5456 aripipraz ole medicatio n Not available Not available Not available 01/04/2024 99688 RxNorm Not Available [facility] - production 14:37:50 5457 bacitraci n medicatio n Not available Not available Not available 01/04/2024 1291 RxNorm Not Available [facility] - production 14:37:50 5458 iopromide medicatio n Not available Not available Not available 01/04/2024 64316 RxNorm OMKAR GONZALEZ MD [address] [facility],[address], [place], [address] [facility], [facility] 4 16:54:42 5459 neomycin medicatio n Not available Not available Not available 01/04/2024 7299 RxNorm Not Available [facility] - production 4 14:37:50 5460 polymyxin B medicatio n Not available Not available Not available 01/04/2024 8536 RxNorm OMKAR GONZALEZ MD [address] [facility],[address], [place], [phone], [facility] - [employer] 16:55:17 5461 risperido ne medicatio n Not available Not available Not available 01/04/2024 72334 RxNorm Not Available [facility] - production 4 [...] Available Not Available No t Available [employer] [place] Lite kit TEST BLOOD SUGAR TWICE DAILY [...] Available No t Available [employer] Charanjit [address] [place] USE DIRECTED active Not Available Not Available [...] blood by Pulse oximetry Body temperature Systolic And Diastolic Provider Name and Address Organization Details Last Updated DateTime 4 29163.4 g 14 /min 80 /min 157.48 cm 98 % 98 % 98.4 [degF] 123/83 mm[Hg] Not Available [employer] 4 11:10:21 Date Recorded Oxygen saturation Oxygen saturation in Arterial blood by Pulse oximetry Heart rate Body weight Body height Respiratory rate Systolic And Diastolic Provider Name and Address Organization Details Last Updated DateTime 4 99 % 99 % 95 /min 531526 g 162.56 cm 16 /min 180/100 mm[Hg] Not Available [employer] 4 18:04:26 Social History None recorded. Functional Status None recorded. Mental Status None recorded. Family History Nothing Reported. Medical History No medical history recorded. Gynecological HistoryNo gynecological history recorded. Obstetrics History GPAL:G 0 P 0 0 0 0 Past Encounters Encounter ID Performer Location Encounter Start Date Encounter Closed Date Diagnosis/Indication Diagnosis SNOMED-CT Code Diagnosis ICD10 Code Diagnosis Note [id number] Wayne Flowers MD [facility] [address] [place] [phone] 02/03/2024 11:10:18 02/04/2024 12:57:30 Candidiasis of vagina 39964096 B37.31 Patient states sxs similar to candidiasi s in the past. Will treat with 1x diflucan. No red flag signs noted. Discussed red flag signs for which to seek higher level of care. [id number] Cora Ch MD [address] [phone] 04/24/2024 17:58:13 04/24/2024 20:03:50 Pain of right knee joint 7089231823 10665 M25.561 Health Concerns Section Related Observation LastModified by Organization Detai ls LastModified Time None Recorded Concern Status LastModified by Organization Details LastModified Time None Recorded Advance Directives Directive None Recorded Payers Insurance Date Sequence Insurance Name Policy Number Policy Nuñez Covered Member ID Nuñez Member ID Guarantor Name 06/14/2024 1 [facility] - DOS ON OR AFTER 2022 - DUAL ELIGIBLE - ASSISTED OPTIONS AND ONE CARE (MEDICARE REPLACEMENT/ADV ANTAGE - HMO) eGorgia Muñoz [id number] Georgia Muñoz Notes Date Note Type Note [...] ................... ................... ................... ................... ................... ................... ........ Assistant [employer] Public [employer] Note From Alistair Daryl: Patient and oriented seated in chair. Patient [...] before.Patient pink warm dry secondary exam unremarkable. [facility] prescribes medication to patient local pharmacy. Red flags and patient education discussed. Consent uploaded in docs Assistant [employer] Public Defender Allergies: Metronidazole ................... ................... ................... ................... ................... ................... ................... ........ Disposition: Fulfilled Wayne Flowers MD [address] [place] [address],[address], [place], [phone], [employer] 02/03/2024 16:41:30 04/24/2024 text/html HPI: Pt reports [...] ................... ................... ................... ................... ................... ................... ........ Assistant [employer] Note From Junito Engel: [facility] visit for female pt. Pt presents reporting [...] deformity or obvious swelling. Images taken for [facility]. Consulted with [facility] Dr. Ch. Dr. Ch advised ice and follow up with PCP. Pt told she can take tylenol or ibuprofen. Reviewed red flags for ED. Pt education provided. ................... ................... ................... ................... ................... ................... ................... ........ [facility] Consulted: Cora Ch ................... ................... ................... ................... ................... ................... ................... ........ Disposition: Fulfilled Cora Ch MD [address] [facility] [facility], [place], [phone], [employer] 04/24/2024 19:25:49 OBGyn Episode No OBEpisode recorded.
--- OUTSIDE RECORDS SUMMARY | 2025-01-06 23:09 | XMS_ITS | Encounter Summary ---
[facility] Organization [facility] Address [address] [place] [address] Care Team Providers Care Mill Turner Name Role Phone Venu Morales MD Primary Care Provider [phone] Encounter Details Date Type Department Care Team (Late st Contact Info) Description 12/08/2024 Lab Requisition [facility] Lab [address] [place] [address] Irish Gentile MD [address] [place] [id number] Essential (primary) hypertension Social History Tobacco Use Types Packs/Day Years [...] Associated Diagnosis Comments COMPLETE BLOOD COUNT Routine 12/08/2024 4:31 AM EDT Essential (primary) hypertension BASIC METABOLIC PANEL Routine 12/08/2024 4:31 AM EDT Essential (primary) hypertension documented in this encounter Results * (ABNORMAL) Basic metabolic panel (12/08/2024 4:31 AM EDT) Sodium 138 133 - 145 mmol/L LAB CHEMISTRY METHOD 12/08/2024 9:01 AM EDT [facility] Potassium 4.0 3.5 - 5.5 mmol/L LAB CHEMISTRY METHOD 12/08/2024 9:01 AM [facility] Chloride 98 96 - 110 mmol/L LAB CHEMISTRY METHOD 12/08/2024 9:01 AM [facility] CO2 31 21 - 32 mmol/L LAB CHEMISTRY METHOD 12/08/2024 9:01 AM [facility] Anion Gap 9 3 - 11 LAB CHEMISTRY METHOD 12/08/2024 9:01 AM [facility] Glucose 84 70 - 100 mg/dL LAB CHEMISTRY METHOD 12/08/2024 9:01 AM [facility] BUN 26(H) 5 - 25 mg/dL LAB CHEMISTRY METHOD 12/08/2024 9:01 AM [facility] Creatinine 0.49(L) 0.50 - 1.10 mg/dL LAB CHEMISTRY METHOD 12/08/2024 9:01 AM [facility] eGFR 118 >=60 mL/min/1. 73m2 LAB CHEMISTRY METHOD 12/08/2024 9:01 AM [facility] Comment:Calculation based on the Chronic Kidney Disease Epidemiology Collaboration (CKD-EPI) equation refit without adjustment for race. BUN/Creatinine Ratio 53.1 LAB CHEMISTRY METHOD 12/08/2024 9:01 AM [facility] Calcium 9.4 8.5 - 10.5 mg/dL LAB CHEMISTRY METHOD 12/08/2024 9:01 AM [facility] Blood Venous blood specimen / Unknown Venipuncture / Unknown 12/08/2024 4:31 AM EDT 12/08/2024 8:06 AM EDT us Irish Gentile MD LAB BLOOD ORDERABLES Final Resu lt [facility] [address] [place] [address], [place] [phone] * (ABNORMAL) Complete blood count (12/08/2024 4:31 AM EDT) [facility] WBC 9.3 4.8 - 10.8 K/mcL LAB HEMETOLOGY METHOD 12/08/2024 8:26 AM [facility] RBC 4.10 3.80 - 4.80 M/mcL LAB HEMETOLOGY METHOD 12/08/2024 8:26 AM [facility] Hemoglobin 11.1(L) 11.5 - 16.0 g/dL LAB HEMETOLOGY METHOD 12/08/2024 8:26 AM [facility] Hematocrit 34.5(L) 35.0 - 47.0 % LAB HEMETOLOGY METHOD 12/08/2024 8:26 AM [facility] MCV 85.2 79.0 - 98.0 FL LAB HEMETOLOGY METHOD 12/08/2024 8:26 AM [facility] MCH 27.4 27.0 - 32.0 pcg LAB HEMETOLOGY METHOD 12/08/2024 8:26 AM [facility] MCHC 32.2 32.0 - 37.0 g/dL LAB HEMETOLOGY METHOD 12/08/2024 8:26 AM [facility] RDW 14.0 11.0 - 15.0 % LAB HEMETOLOGY METHOD 12/08/2024 8:26 AM [facility] Platelets 253 130 - 400 K/mcL LAB HEMETOLOGY METHOD 12/08/2024 8:26 AM [facility] MPV 10.0 7.0 - 11.0 FL LAB HEMETOLOGY METHOD 12/08/2024 8:26 AM [facility] NRBC 0.0 <1.0 % LAB HEMETOLOGY METHOD 12/08/2024 8:26 AM [facility] NRBC Absolute 0.00 <0.10 K/mcL LAB HEMETOLOGY METHOD 12/08/2024 8:26 AM EDT [facility] Blood Venous blood specimen / Unknown Venipuncture / Unknown 12/08/2024 4:31 AM EDT 12/08/2024 8:06 AM EDT us Irish Gentile MD LAB BLOOD ORDERABLES Final Resu lt [facility] [address] [place] [address], documented in this encounter Visit Diagnoses Diagnosis Essential (primary) hypertension Unspecified essential hypertension documented in this encounter Care Teams Mill Turner Relationship Specialty Start Date End Date Venu Morales MD [address] [place] [address], [phone] PCP - General Family Medicine 07/25/24 documented as of this encounter
[2025-01-06] MEDS: Albuterol/Iprat 2.5/0.5MG 3 ML AMPUL.NEB INHALE (23:21)
[2025-01-06 23:23] VITALS: PULSE 96; O2SAT 91
[2025-01-06] MEDS: 0.9 % Sodium Chloride 1,650 ML 999 ML IV (23:35)
[2025-01-07] VITALS (15 sets, daily range): BP systolic 112–196; BP diastolic 52–86; PULSE 65–100; RESP 12–25; TEMP 36.4–37.1; O2SAT 76–100
[2025-01-07 00:01] LABS: B Type Natriuretic Peptide 12 pg/mL (<100)
[2025-01-07] MEDS: iohexoL 350 MG/ML 100 ML INFUS..BTL IV (02:48)
--- NOTE | 2025-01-07 07:20 | PC.NURSE ---
this RN resumed care of pt at 0645. pt a&ox4. using writing utensils to communicate d/t hx of lack of verbalization/ nonverbal x 2 years. patient able to whisper when communicating but difficult to understand. neuros otherwise intact. answering questions/following commands appropriately. vss and up to date. nsr on the media promoter. on RA baseline but currently on 2.5L via NC - no sob/wob noted. respirations even/unlabored. azithro currently infusing @ correct rate. pt verbalizing she is afraid to eat. per previous RN, pt passed nursing swallow eval. additional nursing swallow eval completed by this RN - pt passed w/o difficulty. pt notified/aware that hospitalist heather be notified so proper evaluation by SUPPLY MANAGER can be completed. pt currently pending bed assignment. plan of care ongoing. call lezama placed within reach.
--- NOTE | 2025-01-07 08:17 | PC.NURSE ---
hospitalist bedside to do assessment. pt attempted to be weaned off O2 d/t CO2 retention. pt noted to be 84% on RA. slight sob/wob noted. pt placed on 1L via NC w/ minimal to no effect. pt then titrated to 2L via NC w/ good effect. otherwise vss and up to date. nsr on the bus driver/monitor. pt remains on 2L via NC at this time. plan of care ongoing.
--- NOTE | 2025-01-07 08:38 | PM.IMHP ---
History of Present Illness Date of Service: 01/07/25 Chief Complaint: sob 44F PMH morbid obesity, pcos, panic disorder, unspecified progressive weakness with dysphonia and wheelchair bound, hypothyroid, HTN, BIBA from home with sob. Patient is unable to provide history due to dysphonia and unwilling to communicate by writing at this time. Patient's workup for neurological disorder includes negative MRIs of spine and brain, negative myasthenia antibodies, was supposed to get EMG but was canceled due to panic attack. Patient had just been discharged from [facility] and was at home feeling short of breath so called ambulance. In ED noted to be hypoxic to mid 80s on room air, ABG with pCO2 of 69 fully compensated, CTA negative for PE but shows bilateral opacities. Review of Systems Review of Systems: Yes all other systems are reviewed and are negative [facility] Medical History Foot drop, left Constipation Mass of left foot IBS (irritable colon syndrome) Morbid obesity with BMI of 45.0-49.9, adult GERD with esophagitis DMII (diabetes mellitus, type 2) Fibroadenoma of breast Fibromyalgia Hypothyroid PCOS (polycystic ovarian syndrome) PTSD (post-traumatic stress disorder) Family History Father Acral gangrene Mother Cancer Father Diabetes Gangrene Mother Diabetes Hypertension Thyroid disease Cervical cancer Dementia Son In good health Maternal Grandmother Breast cancer Sister Breast cancer Other Mental health disorder Surgical History History of excision of mass (08/07/22) History of esophagogastroduodenoscopy (EGD) History of D&C History of hand surgery History of section History of lumpectomy of right breast History of appendectomy Hx of appendectomy Social History Household Members: Children Housing: Apartment Alcohol intake: never Patient Tobacco Use Status: Never used Tobacco Smoked in Last 30 Days: No Use of substances other than those prescribed or required for medical reasons: No Advance Directives: Yes Advance Directives on File: Yes Advance Directives Date on File: 07/21/24 Patient : No Current occupational status: disabled Sexual orientation: Straight/Heterosexual Gender identity: Female Meds Allergies Allergy/AdvReac Type Severity Reaction Status Date / Time metronidazole (From FLAGYL) Allergy Severe CHEST PAIN Verified 01/06/25 19:39 TO LEFT SHOULDER, bacitracin (BACITRACIN) Allergy Intermediate BURNING, Verified 01/06/25 19:39 ITCHING risperidone (From Risperdal) Allergy Intermediate high level Verified 01/06/25 19:39 prolactin aripiprazole (From Abilify) Allergy Mild ITCHING Verified 01/06/25 19:39 iopromide (From Ultravist) Allergy Mild DIZZY, DRY Verified 01/06/25 19:39 THROAT AND MOUTH Vistra 650 Allergy Intermediate attention Uncoded 08/21/24 02:46 issues Active Medications: Current Medications Acetaminophen (Acetaminophen 325 Mg Tablet) 650 mg PO Q6H PRN PRN Reason: Pain, Mild 1-3,fever,headache Azithromycin (Azithromycin 500 Mg Tablet) 500 mg PO Q24H RADHA Calcium Carbonate (Calcium Carbonate 750 Mg Tab.Chew) 750 mg PO Q4H PRN PRN Reason: Heartburn Ceftriaxone Sodium (Ceftriaxone Sodium 1 Gm Vial) 1 gm IVPUSH Q24H RADHA Enoxaparin Sodium (Enoxaparin Sodium 40 Mg/0.4 Ml Syringe) 40 mg SUBCUT Q24H RADHA Azithromycin 500 mg/ Sodium (Chloride) 250 mls @ 125 mls/hr IV ONCE ONE Stop: 01/07/25 08:44 Last Admin: 01/07/25 06:52 Dose: 125 mls/hr Magnesium Hydroxide (Milk Of Magnesia 30 Ml Oral.Susp) 30 ml PO DAILY PRN PRN Reason: Constipation Melatonin (Melatonin 3 Mg Tablet) 6 mg PO BEDTIME PRN PRN Reason: Insomnia Simethicone (Simethicone 80 Mg Tab.Chew) 80 mg PO QIDWMHS PRN PRN Reason: Gas Last Admin: 01/07/25 08:31 Dose: 80 mg Sodium Chloride (0.9 % Sodium Chloride Flush 3 Ml Syringe) 3 ml IVFLUSH QSHIFT [facility] Home Medications ?Medication ?Instructions ?Recorded ?Confirmed ?Last Taken ?Type galcanezumab-gnlm 120 mg/mL 120 mg subcut QMONTH 05/08/20 07/21/24 07/04/24 History subcutaneous pen injector (Emgality Pen) riboflavin (vitamin B2) 100 mg 200 mg PO BID 05/29/20 07/20/24 Unknown History tablet atorvastatin 10 mg tablet 40 mg PO BEDTIME 07/23/21 07/20/24 Unknown History chlorthalidone 25 mg tablet 25 mg PO DAILY 07/30/21 07/20/24 Unknown History semaglutide 0.25 mg or 0.5 mg (2 0.5 mg subcut QWEEK 06/24/23 07/21/24 07/17/24 History mg/3 mL) subcutaneous pen injector (Ozempic) lisinopril 10 mg tablet 10 mg PO DAILY 07/30/23 07/20/24 07/20/24 History metformin 500 mg tablet,extended 1,000 mg PO BID 07/30/23 07/20/24 07/20/24 History release 24 hr Physical Exam Vital Signs and Narrative: Vital Signs: Last Vital Signs Temp 97.9 F 01/07/25 08:36 Pulse 72 01/07/25 08:36 Resp 17 01/07/25 08:36 BP 143/67 H 01/07/25 08:36 Pulse Ox 98 01/07/25 08:36 O2 Del Method Room Air 01/07/25 08:36 O2 Flow Rate 2 01/07/25 08:16 BMI result Body Mass Index 37.8 Patient is alert and anxious, due to dysphonia unable to understand, patient not willing to communicate through writing at this time but was previously and appeared oriented x3 Tachypneic, poor air movement, using accessory muscles Results Labs 01/06/25 20:14 01/06/25 20:14 Labs: Laboratory Results - last 24 hr 01/06/25 01/06/25 01/06/25 20:14 20:25 23:32 MCV 81.6 MCH 28.2 MCHC 34.5 RDW 14.3 Plt Count 333 MPV 8.7 L Immature Gran % (Auto) 0.4 Neut % (Auto) 78.6 H Lymph % (Auto) 15.9 L [place] % (Auto) 4.6 Eos % (Auto) 0.2 Baso % (Auto) 0.3 Lymph # (Auto) 1.7 [place] # (Auto) 0.5 Eos # (Auto) 0.0 Baso # (Auto) 0.0 Abs Immat Gran (auto) 0.04 H Absolute Neuts (auto) 8.4 H Absolute Nucleated RBC 0.000 Nucleated RBC % (auto) 0.0 VBG pH 7.37 VBG pCO2 69 VBG pO2 82 VBG HCO3 40 H VBG O2 Saturation 94.0 VBG Base Excess 12.0 Anion Gap 15 Estim Creat Clear Calc 192.1 Estimated GFR > 60 Random Glucose 120 H Lactic Acid 0.9 Calcium 9.4 D Total Bilirubin 0.3 AST 21 ALT 17 Alkaline Phosphatase 95 Total Creatine Kinase 115 B-Natriuretic Peptide 12 Total Protein 8.0 Albumin 4.4 Beta HCG, Quant < 2 Influenza Type A (PCR) NEGATIVE Influenza Type B (PCR) NEGATIVE RSV RNA Qual (PCR) NEGATIVE SARS-CoV-2 RNA (RT-PCR) NEGATIVE Assessment and Plan (1) Morbid obesity with BMI of 45.0-49.9, adult: Status: Acute Plan 44F PMH morbid obesity, pcos, panic disorder, unspecified progressive weakness with dysphonia and wheelchair bound, hypothyroid, HTN, BIBA from home with sob Acute hypoxic and chronic hypercapnic respiratory failure due to pneumonia Ceftriaxone azithromycin, wean O2 as tolerated, goal saturation 89-92% Unspecified progressive weakness with dysphonia Speech eval Neuro eval Morbid obesity Weight loss recommended Hypothyroid Levothyroxine PCOS Holding metformin DVT prophylaxis with Lovenox Full Code Quality Stroke Does the patient have a stroke diagnosis?: No VTE Prior VTE?: No VTE Risk Level:: Medical - moderate - high VTE Device Contraindication: Treatment Not Indicated VTE Drug Contraindication: N/A - Med Ordered
--- NOTE | 2025-01-07 10:43 | PC.NURSE ---
patient noted to desat to 76% on RA - transitioned to 4L via oxymask w/ good effect. oxymask titrated to 1L w/ good effect. slightly tachypneic. repositioned upright to promote patent airway. otherwise vss and up to date. nsr on the laboratory monitor. hospitalist notified/aware.
--- NOTE | 2025-01-07 11:52 | PM.NEUROCN ---
History of Present Illness Data of Consult Service Date: 01/07/25 Primary Care Provider: Unknown Physician HPI Reason for consult: Generalized weakness 44 years old woman who I had seen over the years now and then and have noted somewhat paranoid personality disorder, had a 3 mm pituitary microadenoma on brain MRI, suffered from tinnitus and migraine, and more recently has been seeing a different neurologist for many years. She came to hospital with generalized weakness and difficulty breathing and apparently was noted to be hypoxemic with no obvious explanation. According to the no time reading, her previous workup including brain MRI and acetyl choline receptor antibody titers were negative. But I do not fine those records in our system. She was unable to provide any history. Review of Systems Review of Systems: Could not be done with her [facility] Past Medical History Medical History Foot drop, left Constipation Mass of left foot IBS (irritable colon syndrome) Morbid obesity with BMI of 45.0-49.9, adult GERD with esophagitis DMII (diabetes mellitus, type 2) Fibroadenoma of breast Fibromyalgia Hypothyroid PCOS (polycystic ovarian syndrome) PTSD (post-traumatic stress disorder) Family History Family History Father Acral gangrene Mother Cancer Father Diabetes Gangrene Mother Diabetes Hypertension Thyroid disease Cervical cancer Dementia Son In good health Maternal Grandmother Breast cancer Sister Breast cancer Other Mental health disorder Surgical History Surgical History History of excision of mass (08/07/22) History of esophagogastroduodenoscopy (EGD) History of D&C History of hand surgery History of section History of lumpectomy of right breast History of appendectomy Hx of appendectomy Social History Social History Household Members: Children Housing: Apartment Alcohol intake: never Patient Tobacco Use Status: Never used Tobacco Smoked in Last 30 Days: No Use of substances other than those prescribed or required for medical reasons: No Advance Directives: Yes Advance Directives on File: Yes Advance Directives Date on File: 07/21/24 Nutrition Risks: Difficulty swallowing Patient : No Current occupational status: disabled Sexual orientation: Straight/Heterosexual Gender identity: Female Meds Allergies Allergy/AdvReac Type Severity Reaction Status Date / Time metronidazole (From FLAGYL) Allergy Severe CHEST PAIN Verified 01/06/25 19:39 TO LEFT SHOULDER, bacitracin (BACITRACIN) Allergy Intermediate BURNING, Verified 01/06/25 19:39 ITCHING risperidone (From Risperdal) Allergy Intermediate high level Verified 01/06/25 19:39 prolactin aripiprazole (From Abilify) Allergy Mild ITCHING Verified 01/06/25 19:39 iopromide (From Ultravist) Allergy Mild DIZZY, DRY Verified 01/06/25 19:39 THROAT AND MOUTH [facility] 650 Allergy Intermediate attention Uncoded 08/21/24 02:46 issues Active Medications: Current Medications Acetaminophen (Acetaminophen 325 Mg Tablet) 650 mg PO Q6H PRN PRN Reason: Pain, Mild 1-3,fever,headache Azithromycin (Azithromycin 500 Mg Tablet) 500 mg PO Q24H RADHA Calcium Carbonate (Calcium Carbonate 750 Mg Tab.Chew) 750 mg PO Q4H PRN PRN Reason: Heartburn Ceftriaxone Sodium (Ceftriaxone Sodium 1 Gm Vial) 1 gm IVPUSH Q24H RADHA Enoxaparin Sodium (Enoxaparin Sodium 40 Mg/0.4 Ml Syringe) 40 mg SUBCUT Q24H RADHA Magnesium Hydroxide (Milk Of Magnesia 30 Ml Oral.Susp) 30 ml PO DAILY PRN PRN Reason: Constipation Melatonin (Melatonin 3 Mg Tablet) 6 mg PO BEDTIME PRN PRN Reason: Insomnia Simethicone (Simethicone 80 Mg Tab.Chew) 80 mg PO QIDWMHS PRN PRN Reason: Gas Last Admin: 01/07/25 08:31 Dose: 80 mg Sodium Chloride (0.9 % Sodium Chloride Flush 3 Ml Syringe) 3 ml IVFLUSH QSHIFT [facility] Home Medications ?Medication ?Instructions ?Recorded ?Confirmed ?Last Taken ?Type galcanezumab-gnlm 120 mg/mL 120 mg subcut QMONTH 05/08/20 01/07/25 07/04/24 History subcutaneous pen injector (Emgality Pen) riboflavin (vitamin B2) 100 mg 200 mg PO BID 05/29/20 01/07/25 Unknown History tablet atorvastatin 10 mg tablet 40 mg PO BEDTIME 07/23/21 01/07/25 Unknown History chlorthalidone 25 mg tablet 25 mg PO DAILY 07/30/21 01/07/25 Unknown History semaglutide 0.25 mg or 0.5 mg (2 0.5 mg subcut TH 06/24/23 01/07/25 12/28/24 History mg/3 mL) subcutaneous pen injector (Ozempic) lisinopril 10 mg tablet 10 mg PO DAILY 07/30/23 01/07/25 07/20/24 History acetaminophen 500 mg tablet 500 - 1,000 mg PO Q8H PRN Fever Or 01/07/25 01/07/25 Unknown History Pain docusate sodium 100 mg capsule 100 mg PO BEDTIME 01/07/25 01/07/25 Unknown History (Stool Softener) ibuprofen 400 mg tablet 400 mg PO Q6H PRN Pain 01/07/25 01/07/25 Unknown History loratadine 10 mg tablet 10 mg PO BEDTIME PRN Allergy 01/07/25 01/07/25 Unknown History Symptoms Physical Exam Vital Signs: Vital Signs: Last Vital Signs Temp 97.6 F 01/07/25 10:33 Pulse 88 01/07/25 10:42 Resp 24 H 01/07/25 10:42 BP 135/70 01/07/25 10:42 Pulse Ox 99 01/07/25 10:42 O2 Del Method Oxymask 01/07/25 10:42 O2 Flow Rate 1 01/07/25 10:42 BMI result Body Mass Index 37.8 Neuro: Other: She is alert and awake anxious somewhat hyperventilating with an oxygen mask on. She tried to speak but no voices coming out. She has following simple commands. There was no ptosis. There was no definite facial weakness. When asked to move her toes and legs initially she did not move at all but after some coaxing she was able to move her leg little bit but did not lifted against gravity. She was able to lift her arms against gravity. Deep tendon reflexes are absent with flexor plantars. Results Labs 01/06/25 20:14 01/06/25 20:14 Labs: Short CBC 01/06/25 Range/Units 20:14 WBC 10.7 (4.8-10.8) X10*3/uL Hgb 12.7 (12.0-16.0) g/dl Hct 36.8 L (37.0-47.0) % Plt Count 333 (160-400) X10*3/uL BMP 01/06/25 20:14 Sodium 137 Potassium 3.7 Chloride 94 L Carbon Dioxide 32 H BUN 15 Creatinine 0.42 L Calcium 9.4 D Cardiac Enzymes 01/06/25 Range/Units 20:14 Total Creatine Kinase 115 (26-140) U/L Liver Function 01/06/25 Range/Units 20:14 Total Bilirubin 0.3 (0.0-1.0) mg/dL AST 21 (5-31) U/L ALT 17 (0-31) U/L Alkaline Phosphatase 95 (39-117) U/L Albumin 4.4 (3.5-5.0) g/dL Assessment and Plan (1) Generalized weakness: Status: Acute 44 years old woman with generalized weakness of unclear etiology. Weakness is more so in legs or than arm. She is also not producing any sound though she tries to talk. Apparently she was noted to be hypoxemic with oxygen saturation 80% on room air. If that is the case, the must be an explanation at least for hypoxemia. Neuromuscular disorder is a possibility but her CPK is okay and there was no obvious sign of eyelid or eye movement weakness. Because of the difficult nature this case, my recommendation is to obtain MRI of brain and cervical spine, if not done recently to rule out any possibility of demyelinating disease, have screening EMG nerve conduction study, and maybe also a lumbar puncture depending upon the findings of brain imaging an EMG nerve conduction study. In the meantime conservative appropriate management is recommended hand treating her with steroid or Solu-Medrol for 2-3 days might help with her pulmonary situation unless there was an obvious alternate explanation for hypoxemia. Also please tried to get her previous records of MRI immunological or serological testing. Procedures Date of Service Date of Service: 01/07/25
--- NOTE | 2025-01-07 12:10 | PHA.MEDREC ---
Addendum entered by Niki Dailey RPh 01/07/25 12:28: [facility] REVIEWED Original Note: Pharmacy Consult ? Medication Reconciliation Pharmacy has completed the medication reconciliation. Spoke with patient at bedside to confirm meds (through notepad). She confirmed Emgality once a month but does not remember her last dose. She takes Ozempic on but her visiting nurse forgot to administer it last . She only takes 1 docusate capsule at bedtime. She is no longer taking metformin or gabapentin. Her family brought in her discharge medications from rehab. She said there were new meds included: olmesartan, hydroxyzine, and celecoxib. The rest matched her home meds. She did not take any medications yesterday.
--- NOTE | 2025-01-07 13:31 | MHC.EDTECH ---
patient was reposition and boosted up in bed nurse aware.
--- NOTE | 2025-01-07 14:56 | PC.NURSE ---
Addendum entered by Ivy Beckham 01/07/25 14:56: hospitalist notified/aware. Original Note: pt noted to have difficulty when swallowing pills. pills crushed/administered w/ pudding. pt tolerated well. pt also tolerated PO intake of pudding/applesauce w/o difficulty.
--- NOTE | 2025-01-07 15:13 | MHC.SLORD ---
Speech Language Pathology Order Status: ORTHOPEDIC CODER to assess 01/08
[2025-01-07] MEDS: buPROPion HCl XL 150 MG TAB.ER.24H PO (16:08)
[2025-01-07] MEDS: 0.9 % Sodium Chloride Flush 3 ML SYRINGE IVFLUSH (16:08)
--- NOTE | 2025-01-07 17:50 | PM.EVENT ---
Event Note Date of Service: 01/07/25 Event Note: Time Spent With Patient Time: Total time managing care of this patient today ____ minutes.
--- NOTE | 2025-01-07 17:51 | PM.EVENT ---
Event Note Date of Service: 01/07/25 Event Note: Time Spent With Patient Time: Total time managing care of this patient today ____ minutes.
--- NOTE | 2025-01-07 18:35 | PC.NURSE ---
pt incontinent of urine and stool. pericare performed. complete bed bath completed w/ medical delivery technician's. new purewick placed. pt turned/repositioned to comfort. pillow placed to left side per pt request.
--- NOTE | 2025-01-07 18:58 | MHC.EDTECH ---
did ADL care on patient gave patient a bed bath out put in urine is 1000 change patient linen and put new pure wick nurse aware.
--- NOTE | 2025-01-07 19:13 | MHC.EDTECH ---
patient reposition and situated in bed nurse aware
--- NOTE | 2025-01-07 21:47 | PC.NURSE ---
medication administered per provider order. pt tolerated swallowing pills whole w/ applesauce w/o difficulty.
[2025-01-08] VITALS (21 sets, daily range): BP systolic 117–156; BP diastolic 53–86; PULSE 67–116; RESP 15–27; TEMP 36.2–38; O2SAT 93–100
--- NOTE | 2025-01-08 00:14 | PC.NURSE ---
this rn assumed care of pt, pt resting in stretcher, oxymax in place, offers no complaints at this time. nsr on tele and 98% on 1l oxymax
[2025-01-08] MEDS: 0.9 % Sodium Chloride Flush 3 ML SYRINGE IVFLUSH ×4 (00:43→23:10)
[2025-01-08 04:12] LABS: Venous Blood Gas Refer to POC result
[2025-01-08 04:19] LABS: VBG HCO3 44 mmol/L (22-26); VBG O2 % Saturation 100.0 %
--- NOTE | 2025-01-08 04:19 | PC.NURSE ---
contacted at this time for critical vbg result. plan for RT to place pt on bipap at this time. vss, pt offers no complaints
--- NOTE | 2025-01-08 04:27 | PC.NURSE ---
rt at bedside placing pt on bipap
[2025-01-08 04:38] LABS: Hematocrit 41.6 % (37.0-47.0); Hemoglobin 13.2 g/dl (12.0-16.0); Mean Corpuscular HGB Conc 31.7 g/dl (31.0-35.0); Mean Corpuscular Hemoglobin 27.6 pg (27.0-33.0); Mean Corpuscular Volume 87.0 fL (80.0-98.0); NRBC Abs Auto 0.000 X10*3/uL (0.0-0.012); NRBC Pct Auto 0.0 /100WBC (0.0-0.2); Platelet Count 519 X10*3/uL (160-400); Red Blood Count 4.78 X10*6/uL (4.20-5.50); White Blood Count 15.9 X10*3/uL (4.8-10.8)
[2025-01-08 04:57] LABS: Anion Gap 12 (12-20); Blood Urea Nitrogen 11 mg/dL (9-16); Calcium 9.5 mg/dL (8.4-10.2); Carbon Dioxide 37 mmol/L (22-29); Chloride 94 mmol/L (96-108); Creatinine Clr Calc Pharmacy 201.8; Estimated Glomerular Filt Rate > 60; Magnesium 2.3 mg/dL (1.6-2.6); Potassium 4.4 mmol/L (3.3-5.1); Sodium 139 mmol/L (135-145)
[2025-01-08] MEDS: Albuterol Sulfate 7.5 MG, Albuterol Sulfate (0.083%) 2.5 MG 10 MG INHALE (05:30)
--- NOTE | 2025-01-08 05:46 | PC.NURSE ---
report given to brandon in the icu, pt transported with this rn and rt
[2025-01-08] MEDS: Furosemide 40 MG/4 ML VIAL IVPUSH (09:25)
--- NOTE | 2025-01-08 10:20 | P.PNCC_ITS ---
Subjective Subjective Date of Service: 01/08/25 Interval History: 44-year-old lady with underlying morbid obesity with obesity hyperventilation, PCOS, panic disorder, hypothyroidism admitted on 01/07/2025 with dyspnea to telemetry [facility] in treated empirically for community-acquired pneumonia. Hospital course further complicated by iatrogenic hyperoxia resulting in acute hypercapnia requiring BiPAP support. No events overnight. Titrated off BiPAP support. Critical Care Time (minutes): 60 Physical Exam 2 Vital Signs: Vital Signs: Last Vital Signs Temp 99.9 F 01/08/25 09:00 Pulse 86 01/08/25 09:00 Resp 16 01/08/25 09:00 BP 119/68 01/08/25 09:00 Pulse Ox 96 01/08/25 09:00 O2 Del Method BiPAP 01/08/25 09:00 O2 Flow Rate 1 01/08/25 04:21 FiO2 24 01/08/25 09:00 BMI result Body Mass Index 37.8 Const: General: no acute distress, alert and awake Nutritional Appearance: obese Eyes: Sclerae: sclerae normal EOM: EOMs intact bilaterally Neck: Neck: Yes no lymphadenopathy, Yes trachea midline and Yes supple Resp: Effort & Inspection: normal respiratory effort and no respiratory distress Auscultation: clear to auscultation bilaterally Cardio: Rate: tachycardic Rhythm: regular rhythm Heart sounds: no gallops, no murmurs and no rubs GI: Palpation (GI): Soft to palpation and Other GI palpation findings present ( Nontender) Auscultation: normal bowel sounds Extrem: General: No clubbing, No cyanosis and Yes edema (1+ bilateral) Objective Data Labs 01/08/25 04:08 01/08/25 04:08 Labs: Laboratory Results - last 24 hr 01/08/25 01/08/25 04:08 04:11 WBC 15.9 H RBC 4.78 Hgb 13.2 Hct 41.6 MCV 87.0 D MCH 27.6 MCHC 31.7 RDW 14.3 Plt Count 519 H D MPV 8.8 L Absolute Nucleated RBC 0.000 Nucleated RBC % (auto) 0.0 VBG pH 7.18 L* VBG pCO2 117 VBG pO2 168 VBG HCO3 44 H VBG O2 Saturation 100.0 VBG Base Excess 10.3 Sodium 139 Potassium 4.4 Chloride 94 L Carbon Dioxide 37 H Anion Gap 12 BUN 11 Creatinine 0.40 L Estim Creat Clear Calc 201.8 Estimated GFR > 60 Random Glucose 164 H Calcium 9.5 Magnesium 2.3 Microbiology Microbiology Results: Microbiology 01/06/25 23:32 Blood - Venous Blood Culture - Preliminary No growth after 24 hours. 01/06/25 23:32 Blood - Venous Blood Culture - Preliminary No growth after 24 hours. Progress Note: A&P Assessment and plan (1) Obesity hypoventilation syndrome: Status: Acute (2) Acute and chronic respiratory failure with hypercapnia: Status: Acute (3) Pulmonary edema: Status: Acute Plan Assessment: 44-year-old lady with underlying obesity hypoventilation admitted with dyspnea further complicated by acute on chronic hypercapnia briefly requiring BiPAP support Plan: Neuro: No acute issues. Cardiac: Likely underlying congestive heart failure. 2D echocardiogram is pending. Continue empiric diuresis. Pulmonary: Acute on chronic hypercapnic respiratory failure secondary to iatrogenic hyperoxia. Titrated off BiPAP support. Renal: No acute issues. Endo: No acute issues. GI: No acute issues. ID: No acute issues Heme/Onc: No acute issues. Psych: No acute issues. Miscellaneous: No acute issues. Prophylaxis: Heparin Diet: Regular Critical care time spent: 60 minutes Quality Stroke Does the patient have a stroke diagnosis?: No VTE Prior VTE?: No VTE Risk Level:: Medical - moderate - high VTE Device Contraindication: Treatment Not Indicated VTE Drug Contraindication: N/A - Med Ordered
--- NOTE | 2025-01-08 10:31 | MHC.CM.PN ---
Addendum entered by Jenn Espinosa 01/08/25 10:34: Of note, [facility] admission. May need to return. Will refer. Original Note: Attempted to meet with pt to review d/c planning needs: Pt communicates via writing or gesturing. Can mouth words and hears without issue. Pt states she is unable to participate in CM assessment at this time. States her spouse will be in shortly and information can be obtained from him. Per EMR and discussion w/care team, pt is w/c bound with weakness and inability to vocalize speech. CM to follow up when spouse arrives.
[2025-01-08 11:19] LABS: Venous Blood Gas Refer to POC result
[2025-01-08 11:21] LABS: VBG HCO3 49 mmol/L (22-26); VBG O2 % Saturation 64.0 %
--- NOTE | 2025-01-08 15:48 | MHC.SLORD ---
Speech Language Pathology Order Status: Pt refused clinical swallow assessment today. ADMINISTRATION VICE PRESIDENT to assess 01/09.
[2025-01-09] VITALS (39 sets, daily range): BP systolic 53–181; BP diastolic 28–126; PULSE 60–120; RESP 18–26; TEMP 35–36.9; O2SAT 1–99; BMI 37.7
--- NOTE | 2025-01-09 | ECG_ITS ---
Test Reason : ashley Blood Pressure : */* mmHG Vent. Rate : 64 BPM Atrial Rate : 64 BPM P-R Int : 136 ms QRS Dur : 106 ms QT Int : 440 ms P-R-T Axes : 57 55 30 degrees QTcB Int : 453 ms Normal sinus rhythm with sinus arrhythmia Nonspecific T wave abnormality Abnormal ECG When compared with ECG of 06-Jan-2025 19:37, No significant change was found Referred By: Jay Solorio Electronically Signed By: Ranjan Wagner
--- NOTE | 2025-01-09 05:24 | PM.EVENT ---
Event Note Date of Service: 01/09/25 Event Note: Rapid response called 0512 AM, Dr. Solorio in with pt, pt obtunded not responding to sternal rub or verbal stimuli. BP systolic 73. HR 82. Blood glucose 139 mg/dL. ABG ordered stat. Dr. Solorio notified ICU MILLING MACHINE SET UP OPERATOR that intubation needed and pt will transfer to ICU. Pt receiving albumin IV. Bicarb considered. Case managed now by ICU, transfer orders placed. Time Spent With Patient Time: Total time managing care of this patient today ____ minutes.
[2025-01-09 05:25] LABS: Glucose, Whole Blood 139 mg/dL (60-115)
--- NOTE | 2025-01-09 05:33 | HE.NUR.EV ---
Status Change: pt GR 30-40' bp low. Pt found to be obtunded and unresponsive. Immediate Actions Taken: Hospitalist notified of change in heart rate, vitals gathered. low Bp first observed 61/30.Ekg ordered along with Albumin. RR called on patient, respiratory response took ABG's. Notifications: Further Monitoring and Treatment: pt transferred to ICU for pressors and intubation.
[2025-01-09 05:56] LABS: MANUAL DIFF FLAG NO; Venous Blood Gas Refer to POC result
[2025-01-09 05:57] LABS: VBG HCO3 45 mmol/L (22-26); VBG O2 % Saturation 97.0 %
[2025-01-09 05:57] LABS: Venous Blood Gas Refer to POC result
[2025-01-09 06:02] LABS: Hematocrit 39.3 % (37.0-47.0); Hemoglobin 12.6 g/dl (12.0-16.0); Imm Gran Abs Auto 0.06 X10*3/uL (0.00-0.03); Imm Gran Pct Auto 0.5 % (0.0-0.4); Lymphocytes Absolute Auto 0.7 X10*3/uL (1.2-4.9); Mean Corpuscular HGB Conc 32.1 g/dl (31.0-35.0); Mean Corpuscular Hemoglobin 28.3 pg (27.0-33.0); Mean Corpuscular Volume 88.3 fL (80.0-98.0); NRBC Abs Auto 0.000 X10*3/uL (0.0-0.012); NRBC Pct Auto 0.0 /100WBC (0.0-0.2); Platelet Count 523 X10*3/uL (160-400); Red Blood Count 4.45 X10*6/uL (4.20-5.50); White Blood Count 11.9 X10*3/uL (4.8-10.8)
[2025-01-09 06:04] LABS: INTERNATIONAL NORM RATIO 1.0 (0.9-1.1); Prothrombin Time 12.0 SEC (10.9-12.4)
[2025-01-09 06:34] LABS: Troponin-I High Sensitivity 4.4 ng/L (<3.5-17.0)
[2025-01-09 06:35] LABS: B Type Natriuretic Peptide 63 pg/mL (<100)
[2025-01-09 06:36] LABS: Alanine Aminotransferase 29 U/L (0-31); Albumin Level 4.2 g/dL (3.5-5.0); Alkaline Phosphatase 98 U/L (39-117); Anion Gap 13 (12-20); Aspartate Amino Transferase 25 U/L (5-31); Blood Urea Nitrogen 19 mg/dL (9-16); Calcium 9.5 mg/dL (8.4-10.2); Carbon Dioxide 42 mmol/L (22-29); Chloride 91 mmol/L (96-108); Creatinine Clr Calc Pharmacy 126.1; Estimated Glomerular Filt Rate > 60; Magnesium 2.7 mg/dL (1.6-2.6); Potassium 4.2 mmol/L (3.3-5.1); Sodium 142 mmol/L (135-145); Total Protein 7.8 g/dL (6.5-8.0)
[2025-01-09 06:36] LABS: Venous Blood Gas Refer to POC result
[2025-01-09 06:37] LABS: VBG HCO3 48 mmol/L (22-26); VBG O2 % Saturation 99.0 %
--- NOTE | 2025-01-09 07:30 | PC.NURSE ---
Responded to AUDIO EXPERIENCE EXPERT at approx 0520 on [employer]. Upon initial assessment- pt unarousable, agonal breathing, SBP in 70s. POC and ABG done. Pt brought to ICU stat to room 254. Critical ABG, provider aware- decision made to intubate by BOBBIN CLEANER Jacqueline. ETT #7.5, at 25 cm at lip- placement confirmed by pCXR.?Given total of propofol 40 mg IVP and rocuronium 50 mg IVP for RSI. 1 amp epi and bicarb IVP given by BOBBIN CLEANER for low BPs, see MAR. Propofol gtt started for sedation. Levophed gtt ordered and titrated per MAR to maintain MAP > 65. Report given to oncoming RN at 0645. See EMR/flowsheet for further details.
[2025-01-09] MEDS: 0.9 % Sodium Chloride Flush 3 ML SYRINGE IVFLUSH ×2 (07:53→16:04)
--- NOTE | 2025-01-09 08:07 | W.PM.CCHP ---
Procedures Date of Service Date of Service: 01/09/25 Intubation Intubation Comments: Patient unresponsive, requiring emergent transfer to ICU and intubation. Intubated with using glidescope with 7.5 ET tube, Confirmed with chest xray Consent for Procedure: Emergent-no informed consent obtained Time out performed: Yes Sedative: propofol Mg given: 40 Paralytic: rocuronium Mg given: 50 Laryngoscope: fiber optic video scope ET tube size: 7.5 ET tube uncuffed: No Tube secured depth (cm): 25 Tube secured location: lips Tube placement confirmation: visualized tube passing through cords, equal breath sounds bilaterally, no breath sounds over epigastrium and confirmation by capnometry Patient tolerated procedure: well and no complications Intubation complications: none
[2025-01-09] MEDS: Chlorhexidine Gluc Oral Rinse 15 ML MOUTHWASH BUCCAL ×3 (09:16→20:26)
[2025-01-09 09:26] LABS: ABG HCO3 41 mmol/L (22-26); ABG O2 % Saturation 93.0 %
--- NOTE | 2025-01-09 09:46 | MHC.SLORD ---
Speech Language Pathology Order Status: Patient with order for Clinical Swallow, refused 01/08, was transferred to ICU and intubated early this a.m. (01/09/25). SLUG PRESS OPERATOR will continue ot monitor, assess when appropriate.
--- NOTE | 2025-01-09 10:30 | PM.CCPN ---
Subjective Subjective Date of Service: 01/09/25 Interval History: 44-year-old lady with underlying morbid obesity with obesity hyperventilation, PCOS, panic disorder, hypothyroidism admitted on 01/07/2025 with dyspnea to telemetry [facility] in treated empirically for community-acquired pneumonia. Hospital course further complicated by iatrogenic hyperoxia resulting in acute hypercapnia requiring BiPAP support. Patient transferred to telemetry [facility] on 01/08/2025. Overnight patient with another episode you iatrogenic hyperoxia with resultant hypercapnia requiring intubation with ventilatory support and transfer to intensive care unit, further complicated by CO2 narcosis associated aspiration. Overnight events as above. Critical Care Time (minutes): 90 Physical Exam Vital Signs: Vital Signs: Last Vital Signs Temp 98.5 F 01/09/25 08:00 Pulse 97 01/09/25 10:00 Resp 20 01/09/25 10:00 BP 128/98 H 01/09/25 10:00 Pulse Ox 90 L 01/09/25 10:00 O2 Del Method Mechanical Ventil ation 01/09/25 10:00 O2 Flow Rate 1 01/09/25 05:27 FiO2 40 01/09/25 10:00 BMI result Body Mass Index 37.7 Const: General: no acute distress and other (Sedated on ventilatory support) Eyes: Sclerae: sclerae normal EOM: EOMs intact bilaterally Neck: Neck: Yes no lymphadenopathy, Yes trachea midline and Yes supple Resp: Effort & Inspection: normal respiratory effort and no respiratory distress Auscultation: clear to auscultation bilaterally Cardio: Rate: regular rate Rhythm: regular rhythm Heart sounds: no gallops, no murmurs and no rubs GI: Palpation (GI): Soft to palpation and Other GI palpation findings present ( Nontender) Auscultation: normal bowel sounds Extrem: General: Yes no pedal edema, No clubbing and No cyanosis Objective Data Labs 01/09/25 05:45 01/09/25 05:45 Labs: Laboratory Results - last 24 hr 01/08/25 01/09/25 01/09/25 11:18 05:21 05:28 WBC RBC Hgb Hct MCV MCH MCHC RDW Plt Count MPV Immature Gran % (Auto) Neut % (Auto) Lymph % (Auto) [place] % (Auto) Eos % (Auto) Baso % (Auto) Lymph # (Auto) [place] # (Auto) Eos # (Auto) Baso # (Auto) Abs Immat Gran (auto) Absolute Neuts (auto) Absolute Nucleated RBC Nucleated RBC % (auto) ESR PT INR O2 Saturation ABG pH at Pt Temp 6.99 L* ABG pCO2 at Pt Temp ABG pO2 at Pt Temp 154 H ABG HCO3 ABG Base Excess (Actual) VBG pH 7.35 VBG pCO2 88 VBG pO2 42 VBG HCO3 49 H VBG O2 Saturation 64.0 VBG Base Excess 18.5 Sodium Potassium Chloride Carbon Dioxide Anion Gap BUN Creatinine Estim Creat Clear Calc Estimated GFR POC Glucose 139 H Random Glucose Lactic Acid Calcium Phosphorus Magnesium Total Bilirubin AST ALT Alkaline Phosphatase Total Creatine Kinase Troponin I High Sens C-Reactive Protein B-Natriuretic Peptide Total Protein Albumin 01/09/25 01/09/25 01/09/25 05:45 05:53 06:33 WBC 11.9 H RBC 4.45 Hgb 12.6 Hct 39.3 MCV 88.3 MCH 28.3 MCHC 32.1 RDW 14.1 Plt Count 523 H MPV 8.6 L Immature Gran % (Auto) 0.5 H Neut % (Auto) 90.0 H Lymph % (Auto) 5.8 L [place] % (Auto) 3.2 Eos % (Auto) 0.4 Baso % (Auto) 0.1 Lymph # (Auto) 0.7 L [place] # (Auto) 0.4 Eos # (Auto) 0.1 Baso # (Auto) 0.0 Abs Immat Gran (auto) 0.06 H Absolute Neuts (auto) 10.7 H Absolute Nucleated RBC 0.000 Nucleated RBC % (auto) 0.0 ESR 30 H PT 12.0 INR 1.0 O2 Saturation ABG pH at Pt Temp ABG pCO2 at Pt Temp ABG pO2 at Pt Temp ABG HCO3 ABG Base Excess (Actual) VBG pH 7.33 7.38 VBG pCO2 83 81 VBG pO2 74 157 VBG HCO3 45 H 48 H VBG O2 Saturation 97.0 99.0 VBG Base Excess 15.1 18.1 Sodium 142 Potassium 4.2 Chloride 91 L Carbon Dioxide 42 H* Anion Gap 13 BUN 19 H Creatinine 0.64 Estim Creat Clear Calc 126.1 Estimated GFR > 60 POC Glucose Random Glucose 141 H Lactic Acid 1.8 Calcium 9.5 Phosphorus 6.0 H Magnesium 2.7 H Total Bilirubin 0.2 AST 25 ALT 29 Alkaline Phosphatase 98 Total Creatine Kinase 112 Troponin I High Sens 4.4 D C-Reactive Protein 1.01 H B-Natriuretic Peptide 63 Total Protein 7.8 Albumin 4.2 01/09/25 09:22 WBC RBC Hgb Hct MCV MCH MCHC RDW Plt Count MPV Immature Gran % (Auto) Neut % (Auto) Lymph % (Auto) [place] % (Auto) Eos % (Auto) Baso % (Auto) Lymph # (Auto) [place] # (Auto) Eos # (Auto) Baso # (Auto) Abs Immat Gran (auto) Absolute Neuts (auto) Absolute Nucleated RBC Nucleated RBC % (auto) ESR PT INR O2 Saturation 93.0 ABG pH at Pt Temp 7.54 H ABG pCO2 at Pt Temp 48 H ABG pO2 at Pt Temp 58 L ABG HCO3 41 H ABG Base Excess (Actual) 16.4 VBG pH VBG pCO2 VBG pO2 VBG HCO3 VBG O2 Saturation VBG Base Excess Sodium Potassium Chloride Carbon Dioxide Anion Gap BUN Creatinine Estim Creat Clear Calc Estimated GFR POC Glucose Random Glucose Lactic Acid Calcium Phosphorus Magnesium Total Bilirubin AST ALT Alkaline Phosphatase Total Creatine Kinase Troponin I High Sens C-Reactive Protein B-Natriuretic Peptide Total Protein Albumin Microbiology Microbiology Results: Microbiology 01/06/25 23:32 Blood - Venous Blood Culture - Preliminary No growth after 48 hours. 01/06/25 23:32 Blood - Venous Blood Culture - Preliminary No growth after 48 hours. Progress Note: A&P Assessment and plan (1) Obesity hypoventilation syndrome: Status: Acute (2) Acute and chronic respiratory failure with hypercapnia: Status: Acute (3) Pulmonary aspiration: Status: Acute Plan Assessment: 44-year-old lady with underlying obesity hypoventilation admitted with dyspnea further complicated by acute on chronic hypercapnia briefly requiring BiPAP support Plan: Neuro: No acute issues. Cardiac: Pulmonary aspiration related hypotension, continue to titrate off pressor support as tolerated. Likely underlying congestive heart failure. 2D echocardiogram is pending. Pulmonary: Recurrent acute on chronic hypercapnic respiratory failure secondary to iatrogenic hyperoxia requiring intubation and ventilatory support further complicated by CO2 narcosis associated pulmonary. Continue to titrate off ventilatory support as tolerated. Renal: No acute issues. Endo: No acute issues. GI: No acute issues. ID: Empiric antibiotics for pulmonary aspiration. Heme/Onc: No acute issues. Psych: No acute issues. Miscellaneous: No acute issues. Prophylaxis: Heparin, famotidine Diet: NPO Critical care time spent: 90 minutes Quality Stroke Does the patient have a stroke diagnosis?: No VTE Prior VTE?: No VTE Risk Level:: Medical - moderate - high VTE Device Contraindication: Treatment Not Indicated VTE Drug Contraindication: N/A - Med Ordered
--- NOTE | 2025-01-09 10:34 | MHC.CLN ---
CONSULT PT MAY REQUIRE TF FOR NUTRITION SUPPORT R/T PROLONGED NPO STATUS WILL ADD NPO DIET DISCUSSED AT ROUNDS WITH MD IF TF NEEDED; RECOMMEND GLUCERNA 1.2 AT MAX GOAL RATE 30ML/HR TO PROVIDE 964KCALS (1654KCALS WITH SEDATION; 24KCALS/KG), 43G PROTEIN, 580ML FREE WATER MONITOR TOLERANCE AND LYTES FOLLOWING FOR DIET ADVANCEMENT
--- NOTE | 2025-01-09 13:43 | P.PNCC_ITS ---
Critical Care Event Note Summary Date of Service: 01/09/25 Code activated: No Narrative: Clinical information discussed with patient's healthcare proxy/sister who requested transfer to [facility] for 2nd opinion about patient's possible diagnosis of myasthenia gravis. Call and request for transfer placed with [facility] transfer center. Notified by [facility] transfer center that the intensive care unit is over the capacity and are not accepting any transfers at this time. Critical Care Time (minutes): 0
[2025-01-09 14:08] LABS: ABG Refer to POC result
[2025-01-10] VITALS (51 sets, daily range): BP systolic 93–191; BP diastolic 43–85; PULSE 61–122; RESP 12–148; TEMP 26.3–38; O2SAT 20–98; BMI 36.3
[2025-01-10] MEDS: 0.9 % Sodium Chloride Flush 3 ML SYRINGE IVFLUSH ×4 (00:16→22:35)
--- NOTE | 2025-01-10 04:29 | HO.SKINPHOTO ---
Location: coccyx Category: Stage: Length: Width: Depth: cm
[2025-01-10 04:58] LABS: VBG HCO3 40 mmol/L (22-26); VBG O2 % Saturation 59.0 %
[2025-01-10 05:05] LABS: Venous Blood Gas Refer to POC result
[2025-01-10 05:10] LABS: MANUAL DIFF FLAG NO
[2025-01-10 05:12] LABS: Hematocrit 37.9 % (37.0-47.0); Hemoglobin 12.8 g/dl (12.0-16.0); Imm Gran Abs Auto 0.08 X10*3/uL (0.00-0.03); Imm Gran Pct Auto 0.5 % (0.0-0.4); Lymphocytes Absolute Auto 2.6 X10*3/uL (1.2-4.9); Mean Corpuscular HGB Conc 33.8 g/dl (31.0-35.0); Mean Corpuscular Hemoglobin 27.9 pg (27.0-33.0); Mean Corpuscular Volume 82.6 fL (80.0-98.0); NRBC Abs Auto 0.000 X10*3/uL (0.0-0.012); NRBC Pct Auto 0.0 /100WBC (0.0-0.2); Platelet Count 402 X10*3/uL (160-400); Red Blood Count 4.59 X10*6/uL (4.20-5.50); White Blood Count 16.7 X10*3/uL (4.8-10.8)
[2025-01-10 05:34] LABS: Albumin Level 3.8 g/dL (3.5-5.0); Anion Gap 17 (12-20); Blood Urea Nitrogen 17 mg/dL (9-16); Calcium 9.5 mg/dL (8.4-10.2); Carbon Dioxide 34 mmol/L (22-29); Chloride 89 mmol/L (96-108); Creatinine Clr Calc Pharmacy 152.2; Estimated Glomerular Filt Rate > 60; Magnesium 1.8 mg/dL (1.6-2.6); Potassium 2.3 mmol/L (3.3-5.1); Sodium 138 mmol/L (135-145)
[2025-01-10] MEDS: Potassium Chloride/H20 10 MEQ/100 ML PIGGYBACK 100 MEQ IV ×10 (05:48→23:38)
[2025-01-10] MEDS: Potassium Phosphate/NS 15 MMOL/250 ML PLAST..BAG 62.5 MMOL IV ×2 (05:50→10:51)
--- NOTE | 2025-01-10 07:00 | CA_ITS ---
Transthoracic Echocardiogram Patient (Last, First, Middle): Georgia Muñoz, Gender: Female Date of : 1980 Age: 44 Procedure Date: 01/10/2025 Procedure Type: Transthoracic Echocardiogram Location: ICU Height: 162.56 cm Weight: 95.71 kg BSA: 2.00 m2 Heart Rate: 99 bpm BP: 117 / 64 mmHg Industrial Safety Engineer: RAJANI Referring MD: Duy Valdovinos MD Symptoms: dyspnea Study Quality: Adequate w contrast Conclusions: - Normal left ventricular cavity size. There is normal left ventricular wall thickness. The left ventricular systolic function is hyperdynamic. The visually estimated ejection fraction is >70%. - Normal right ventricular cavity size and systolic function. Findings Procedure Information Contrast agent, definity, is being given per protocol without apparent complications. The quality of the study was technically difficult. The study quality is limited by the presence of a ventilator. Left Ventricle Normal left ventricular cavity size. There is normal left ventricular wall thickness. The left ventricular systolic function is hyperdynamic. The visually estimated ejection fraction is >70%. There is no evidence of regional wall motion abnormalities. Diastolic function is normal for age. Right Ventricle Normal right ventricular cavity size and systolic function. Atria The left atrium is normal in size. The right atrium is normal in size. Aortic Valve Normal aortic valve structure and function. There is no aortic valve stenosis. There is no aortic valve regurgitation. Mitral Valve The mitral valve appears normal. There is trace mitral valve regurgitation. There is no mitral valve stenosis. Pulmonic Valve The pulmonic valve was not well visualized. Tricuspid Valve Normal tricuspid valve structure. There is no tricuspid valve regurgitation. Tricuspid regurgitation envelope is inadequate for calculation of right ventricular systolic pressure. Indeterminate right atrial pressure. Venous The inferior vena cava is normal in size and collapses less than 50% with inspiration. Pericardium/Pleural There is no evidence of pericardial effusion. Prior Study Comparison Changes noted compared to prior study dated: 10/29/2016. Hyperdynamic LV Measurements 2D Linear Measurements IVSd: 0.82 0.6-0.9/0.6-1.0 cm LVIDd: 3.18 3.9-5.3/4.2-5.9 cm LVIDd Index: 1.59 2.4-3.2/2.2-3.1 cm/m2 LVIDs: 2.37 2.0-3.6 cm LVPWd: 0.81 0.7-1.1 cm LA Diam: 3.20 2.7-3.8/3.0-4.0 cm LAIDs Index: 1.60 1.5-2.3 cm/m2 LV Mass: 82.51 67-162/88-224 g LV Mass Index: 41.25 43-95/49-115 g/m2 LVOT Diam: 2.00 3.0+(-)1.3 cm Mitral Valve MV Pk E: 0.53 MV PK A: 0.76 MV Decel Time: 220.00 E/A: 0.70 E'Lateral: 10.50 E'Medial: 9.85 E/E' Med: 5.40 E/E' Lat: 5.10 PHT: 65.00 MVA PHT: 3.38 Decel Rawlins: 2.45 Aortic Valve AoV Pk [place]: 1.54 AoV Mn [place]: 1.06 AoV VTI: 0.22 AoV Pk Grad: 9.00 Aov Mn Grad: 5.00 BIJU Cont.VTI: 2.35 LVOT LVOT Pk [place]: 1.16 LVOT Mn [place]: 0.82 LVOT VTI: 0.16 LVOT Pk Grad: 5.00 LVOT Mn Grad: 3.00 LVOT Diam: 2.00 LVOT Area: 3.14 Diastolic Function MV Pk E: 0.53 MV Pk A: 0.76 E/A: 0.70 E'Medial: 9.85 E/E' Med: 5.40 E' Laterial: 10.50 E/E' Lat: 5.10 Right Ventricle TAPSE (mm): 21.70 TVS' [place]: 15.10 Tricuspid Valve RA Press: 8.00 Great Vessels Aorta Sinus of Valsalva: 2.88 2.0-3.5 cm Updated in Other Vendor System with Status of Final Ranjan Wagner MD electronically signed on 01/10/2025 4:07:53 PM with status of Final
--- NOTE | 2025-01-10 07:08 | PC.NURSE ---
Blood pressure soft during [id number] shift. JAXSON Phillips made aware. JAXSON Phillips ok with MAP 60-65. Levophed titrated per AUG.
[2025-01-10] MEDS: Chlorhexidine Gluc Oral Rinse 15 ML MOUTHWASH BUCCAL (07:23)
--- NOTE | 2025-01-10 10:05 | MHC.CLN ---
F/U DISCUSSED AT ROUNDS WITH MD PLAN FOR EXTUBATION AFTER ROUNDS CURRENTLY NPO DAY 2 IF DIET TO ADVANCE RECOMMEND 1800DM FOLLOWING WITH TEAM
[2025-01-10] MEDS: Furosemide 20 MG/2 ML VIAL IVPUSH (10:15)
--- NOTE | 2025-01-10 10:26 | P.PNCC_ITS ---
Subjective Subjective Date of Service: 01/10/25 Interval History: 44-year-old lady with underlying morbid obesity with obesity hyperventilation, PCOS, panic disorder, hypothyroidism admitted on 01/07/2025 with dyspnea to telemetry [facility] in treated empirically for community-acquired pneumonia. Hospital course further complicated by iatrogenic hyperoxia resulting in acute hypercapnia requiring BiPAP support. Patient transferred to telemetry [facility] on 01/08/2025. Overnight patient with another episode you iatrogenic hyperoxia with resultant hypercapnia requiring intubation with ventilatory support and transfer to intensive care unit, further complicated by CO2 narcosis associated aspiration. Extubated uneventfully this a.m.. Critical Care Time (minutes): 60 Physical Exam 2 Vital Signs: Vital Signs: Last Vital Signs Temp 99.9 F 01/10/25 09:00 Pulse 76 01/10/25 09:40 Resp 28 H 01/10/25 09:00 BP 131/74 01/10/25 09:40 Pulse Ox 92 01/10/25 09:00 O2 Del Method Mechanical Ventil ation 01/10/25 09:00 O2 Flow Rate 1 01/09/25 05:27 FiO2 21 01/10/25 09:25 BMI result Body Mass Index 36.3 Const: General: no acute distress, alert and awake Eyes: Sclerae: sclerae normal EOM: EOMs intact bilaterally Neck: Neck: Yes no lymphadenopathy, Yes trachea midline and Yes supple Resp: Effort & Inspection: normal respiratory effort and no respiratory distress Auscultation: clear to auscultation bilaterally Cardio: Rate: regular rate Rhythm: regular rhythm Heart sounds: no gallops, no murmurs and no rubs GI: Palpation (GI): Soft to palpation and Other GI palpation findings present ( Nontender) Auscultation: normal bowel sounds Extrem: General: Yes no pedal edema, No clubbing and No cyanosis Objective Data Labs 01/10/25 04:46 01/10/25 04:46 Labs: Laboratory Results - last 24 hr 01/09/25 01/10/25 01/10/25 05:28 04:46 04:52 WBC 16.7 H RBC 4.59 Hgb 12.8 Hct 37.9 MCV 82.6 D MCH 27.9 MCHC 33.8 RDW 13.8 Plt Count 402 H MPV 9.0 L Immature Gran % (Auto) 0.5 H Neut % (Auto) 77.2 H Lymph % (Auto) 15.6 L [place] % (Auto) 6.1 Eos % (Auto) 0.4 Baso % (Auto) 0.2 Lymph # (Auto) 2.6 [place] # (Auto) 1.0 Eos # (Auto) 0.1 Baso # (Auto) 0.0 Abs Immat Gran (auto) 0.08 H Absolute Neuts (auto) 12.9 H Absolute Nucleated RBC 0.000 Nucleated RBC % (auto) 0.0 O2 Saturation TNP ABG pCO2 at Pt Temp > 150 H* ABG HCO3 TNP ABG Base Excess (Actual) TNP VBG pH 7.65 H* VBG pCO2 35 VBG pO2 31 VBG HCO3 40 H VBG O2 Saturation 59.0 VBG Base Excess 18.2 Sodium 138 Potassium 2.3 L* D Chloride 89 L Carbon Dioxide 34 H Anion Gap 17 BUN 17 H Creatinine 0.53 Estim Creat Clear Calc 152.2 Estimated GFR > 60 Random Glucose 157 H Calcium 9.5 Phosphorus < 0.5 L* Magnesium 1.8 Albumin 3.8 Microbiology Microbiology Results: Microbiology 01/09/25 06:28 Blood - Venous Blood Culture - Preliminary No growth after 24 hours. 01/09/25 06:28 Blood - Venous Blood Culture - Preliminary No growth after 24 hours. 01/06/25 23:32 Blood - Venous Blood Culture - Preliminary No growth after 48 hours. 01/06/25 23:32 Blood - Venous Blood Culture - Preliminary No growth after 48 hours. Progress Note: A&P Assessment and plan (1) Morbid obesity with BMI of 45.0-49.9, adult: Status: Acute (2) Pulmonary edema: Status: Acute (3) Pulmonary aspiration: Status: Acute (4) Obesity hypoventilation syndrome: Status: Acute (5) Acute and chronic respiratory failure with hypercapnia: Status: Acute Plan Assessment: 44-year-old lady with underlying obesity hypoventilation admitted with dyspnea further complicated by acute on chronic hypercapnia briefly requiring BiPAP support Plan: Neuro: No acute issues. Cardiac: Pulmonary aspiration related hypotension, continue to titrate off pressor support as tolerated. Likely underlying congestive heart failure. 2D echocardiogram is pending. Pulmonary: Recurrent acute on chronic hypercapnic respiratory failure secondary to iatrogenic hyperoxia requiring intubation and ventilatory support further complicated by CO2 narcosis associated pulmonary. Extubated uneventfully this a.m.. Renal: No acute issues. Endo: No acute issues. GI: No acute issues. ID: Empiric antibiotics for pulmonary aspiration. Heme/Onc: No acute issues. Psych: No acute issues. Miscellaneous: No acute issues. Prophylaxis: Heparin Diet: NPO Critical care time spent: 60 minutes Quality Stroke Does the patient have a stroke diagnosis?: No VTE Prior VTE?: No VTE Risk Level:: Medical - moderate - high VTE Device Contraindication: Treatment Not Indicated VTE Drug Contraindication: N/A - Med Ordered
[2025-01-10 12:19] LABS: ABG HCO3 45 mmol/L (22-26); ABG O2 % Saturation 94.0 %
--- NOTE | 2025-01-10 12:32 | MHC.SLORD ---
Speech Language Pathology Order Status: Pt was intubated yesterday. RN reported pt will be extubated today, WARNING ANALYST to re-asses tomorrow as appropriate.
[2025-01-10 13:19] LABS: ABG Refer to POC result
[2025-01-10 16:29] LABS: Anion Gap 12 (12-20); Blood Urea Nitrogen 14 mg/dL (9-16); Calcium 8.6 mg/dL (8.4-10.2); Carbon Dioxide 38 mmol/L (22-29); Chloride 93 mmol/L (96-108); Creatinine Clr Calc Pharmacy 175.6; Estimated Glomerular Filt Rate > 60; Magnesium 1.8 mg/dL (1.6-2.6); Potassium 3.1 mmol/L (3.3-5.1); Sodium 140 mmol/L (135-145)
[2025-01-10] MEDS: Furosemide 200 MG in 0.9 % Sodium Chloride 80 ML IVCONT (18:28)
--- NOTE | 2025-01-10 18:31 | PC.NURSE ---
Assumed care at 0700- pt. intubated and sedated per AUG- sedation vacation initiated at 0815. Pt. opening eyes, tracking, following commands, and nodding head to questions. Pt. extubated by RT per MD order at 1000. Pt. with minimal speech d/t increased respiratory effort- RR 20s, guppy breathing, O2 sats 88-92% on 1L. HR then up to 130s, SBP 150s-180s, MD notified. 25 mcg fentanyl given and pt. placed on bipap 12/5 21%. HR down to 60s-100s, SBPs 100-120s, respirations even and unlabored. Pt. initially with large incontinent void at approx 0830. No UO up to 1630- pt. bladder scanned for 483cc. Upon laying pt. flat for straight cath, pt. with loose cough, HR down to the 40s, O2 sats down to the 60s on bipap. Pt. sat up, hyperoxygenated, and RT called to bedside. HR and O2 sat recovered to baseline, pt. still with loose cough and pale in color. MD contacted via telephone- jak castillo and Lou ordered and hung per aug. Langley cath inserted for retention per MD. Cough assist performed per RT for large amt. thick cream sputum. Pt. now appearing more comfortable, HR 80s-100s, O2 sat 94% on Bipap 12/5 21%, RR 20. Q2 repositioning performed. Family at bedside and updated by this RN. Plan of care ongoing.
[2025-01-10 22:22] LABS: Anion Gap 14 (12-20); Blood Urea Nitrogen 14 mg/dL (9-16); Calcium 8.5 mg/dL (8.4-10.2); Carbon Dioxide 35 mmol/L (22-29); Chloride 94 mmol/L (96-108); Creatinine Clr Calc Pharmacy 179.6; Estimated Glomerular Filt Rate > 60; Magnesium 1.8 mg/dL (1.6-2.6); Potassium 3.4 mmol/L (3.3-5.1); Sodium 140 mmol/L (135-145)
[2025-01-10 23:18] LABS: ABG HCO3 45 mmol/L (22-26); ABG O2 % Saturation 75.0 %
[2025-01-10 23:22] LABS: ABG Refer to POC result
[2025-01-11] VITALS (46 sets, daily range): BP systolic 76–161; BP diastolic 39–116; PULSE 56–145; RESP 16–30; TEMP 26.3–38.5; O2SAT 86–99; BMI 36.1
[2025-01-11] MEDS: Potassium Chloride/H20 10 MEQ/100 ML PIGGYBACK 100 MEQ IV ×8 (00:39→11:51)
[2025-01-11 05:00] LABS: VBG HCO3 45 mmol/L (22-26); VBG O2 % Saturation 83.0 %
[2025-01-11 05:01] LABS: Venous Blood Gas Refer to POC result
[2025-01-11 05:09] LABS: Hematocrit 34.9 % (37.0-47.0); Hemoglobin 11.7 g/dl (12.0-16.0); Mean Corpuscular HGB Conc 33.5 g/dl (31.0-35.0); Mean Corpuscular Hemoglobin 27.5 pg (27.0-33.0); Mean Corpuscular Volume 82.1 fL (80.0-98.0); NRBC Abs Auto 0.000 X10*3/uL (0.0-0.012); NRBC Pct Auto 0.0 /100WBC (0.0-0.2); Platelet Count 275 X10*3/uL (160-400); Red Blood Count 4.25 X10*6/uL (4.20-5.50); WBC ABN SCTR FOR CBC 1
[2025-01-11 05:11] LABS: White Blood Count 18.0 X10*3/uL (4.8-10.8)
[2025-01-11 05:27] LABS: Albumin Level 3.6 g/dL (3.5-5.0); Anion Gap 16 (12-20); Blood Urea Nitrogen 11 mg/dL (9-16); Calcium 8.4 mg/dL (8.4-10.2); Carbon Dioxide 37 mmol/L (22-29); Chloride 91 mmol/L (96-108); Creatinine Clr Calc Pharmacy 183.8; Estimated Glomerular Filt Rate > 60; Magnesium 1.7 mg/dL (1.6-2.6); Potassium 3.0 mmol/L (3.3-5.1); Sodium 141 mmol/L (135-145)
[2025-01-11 05:33] LABS: Band Neutrophils Percent 3 % (3-5); Lymphocytes Absolute Manual 0.5 X10*3/uL (1.2-4.9); Lymphocytes Percent Manual 3 % (20-40); Monocytes Absolute Manual 0.9 X10*3/uL (0.1-1.2); Monocytes Percent Manual 5 % (2-11); Neutrophils Absolute Manual 16.6 X10*3/uL (2.0-8.3); Neutrophils Percent Manual 89 % (45-73)
[2025-01-11 05:34] LABS: RBC Morphology NORMAL
--- NOTE | 2025-01-11 06:10 | PC.NURSE ---
Assumed care at 1900. Patient continues on BiPAP support following extubation. Patient drowsy but opens eyes to verbal stimuli and able to nod and shake head for yes/no. During bedside report, patient became hypoxic. RT to bedside to suction large amount thick clear secretions with good effect. SR/ST on tele, HR 80s-110s with PACs. Lung sounds coarse, see BiPAP assessment for settings. At approx 2315, patient became hypoxic, saturations 75%-80%. JAXSON Phillips and this RN to bedside. 50 mcg fentanyl IVP given for WOB with marginal effect. RT to bedside for setting adjustments. ABG ordered and obtained, see results, pCXR also ordered and performed, see report. Per JAXSON Phillips, SpO2 goal 86-92%. Abdomen large and soft, active bowel sounds x4. Langley catheter in place draining clear yellow urine, approx 100-150mL/hr. Lasix gtt running per AUG. Skin overall warm and dry, skin slit to coccyx/gluteal fold with pink foam in place. Family updated by JAXSON Phillips at the bedside on plan of care. Bed locked in lowest position, patient repositioned as tolerated, bed alarm on.?
[2025-01-11] MEDS: 0.9 % Sodium Chloride Flush 3 ML SYRINGE IVFLUSH ×3 (07:48→23:51)
--- NOTE | 2025-01-11 10:07 | P.PNCC_ITS ---
Subjective Subjective Date of Service: 01/11/25 Interval History: 44-year-old lady with underlying morbid obesity with obesity hyperventilation, PCOS, panic disorder, hypothyroidism admitted on 01/07/2025 with dyspnea to telemetry [facility] in treated empirically for community-acquired pneumonia. Hospital course further complicated by iatrogenic hyperoxia resulting in acute hypercapnia requiring BiPAP support. Patient transferred to telemetry [facility] on 01/08/2025. Overnight patient with another episode you iatrogenic hyperoxia with resultant hypercapnia requiring intubation with ventilatory support and transfer to intensive care unit, further complicated by CO2 narcosis associated aspiration. Extubated uneventfully on 01/10/2025. Continues to require BiPAP support on/off. No events overnight. Critical Care Time (minutes): 45 Physical Exam 2 Vital Signs: Vital Signs: Last Vital Signs Temp 98.8 F 01/11/25 09:00 Pulse 92 01/11/25 09:00 Resp 25 H 01/11/25 09:00 BP 94/66 01/11/25 09:00 Pulse Ox 92 01/11/25 09:00 O2 Del Method BiPAP 01/11/25 09:00 O2 Flow Rate 21 01/10/25 11:00 FiO2 30 01/11/25 09:00 BMI result Body Mass Index 36.1 Const: General: no acute distress, alert and awake Eyes: Sclerae: sclerae normal EOM: EOMs intact bilaterally Neck: Neck: Yes no lymphadenopathy, Yes trachea midline and Yes supple Resp: Effort & Inspection: normal respiratory effort and no respiratory distress Auscultation: clear to auscultation bilaterally Cardio: Rate: regular rate Rhythm: regular rhythm Heart sounds: no gallops, no murmurs and no rubs GI: Palpation (GI): Soft to palpation and Other GI palpation findings present ( Nontender) Auscultation: normal bowel sounds Extrem: General: Yes no pedal edema, No clubbing and No cyanosis Objective Data Labs 01/11/25 04:56 01/11/25 04:56 Labs: Laboratory Results - last 24 hr 01/10/25 01/10/25 01/10/25 12:15 16:10 21:57 WBC RBC Hgb Hct MCV MCH MCHC RDW Plt Count MPV Immature Gran % (Auto) Neut % (Auto) Lymph % (Auto) [place] % (Auto) Eos % (Auto) Baso % (Auto) Lymph # (Auto) [place] # (Auto) Eos # (Auto) Baso # (Auto) Abs Immat Gran (auto) Absolute Neuts (auto) Absolute Nucleated RBC Nucleated RBC % (auto) Neutrophils % (Manual) Band Neutrophils % Lymphocytes % (Manual) Monocytes % (Manual) Abs Neuts (Manual) Lymphocytes # (Manual) Monocytes # (Manual) Platelet Estimate Plt Morphology Comment RBC Morphology O2 Saturation 94.0 ABG pH at Pt Temp 7.50 H ABG pCO2 at Pt Temp 56 H ABG pO2 at Pt Temp 69 L ABG HCO3 45 H ABG Base Excess (Actual) 18.9 VBG pH VBG pCO2 VBG pO2 VBG HCO3 VBG O2 Saturation VBG Base Excess Sodium 140 140 Potassium 3.1 L D 3.4 Chloride 93 L 94 L Carbon Dioxide 38 H 35 H Anion Gap 12 14 BUN 14 14 Creatinine 0.45 L 0.44 L Estim Creat Clear Calc 175.6 179.6 Estimated GFR > 60 > 60 Random Glucose 133 H 90 Calcium 8.6 D 8.5 Phosphorus 3.9 2.8 Magnesium 1.8 1.8 Albumin 01/10/25 01/11/25 01/11/25 23:14 04:56 04:57 WBC 18.0 H RBC 4.25 Hgb 11.7 L Hct 34.9 L MCV 82.1 MCH 27.5 MCHC 33.5 RDW 14.9 Plt Count 275 D MPV 8.9 L Immature Gran % (Auto) Cancelled Neut % (Auto) Cancelled Lymph % (Auto) Cancelled [place] % (Auto) Cancelled Eos % (Auto) Cancelled Baso % (Auto) Cancelled Lymph # (Auto) Cancelled [place] # (Auto) Cancelled Eos # (Auto) Cancelled Baso # (Auto) Cancelled Abs Immat Gran (auto) Cancelled Absolute Neuts (auto) Cancelled Absolute Nucleated RBC 0.000 Nucleated RBC % (auto) 0.0 Neutrophils % (Manual) 89 H Band Neutrophils % 3 Lymphocytes % (Manual) 3 L Monocytes % (Manual) 5 Abs Neuts (Manual) 16.6 H Lymphocytes # (Manual) 0.5 L Monocytes # (Manual) 0.9 Platelet Estimate NORMAL Plt Morphology Comment NORMAL RBC Morphology NORMAL O2 Saturation 75.0 ABG pH at Pt Temp 7.48 H ABG pCO2 at Pt Temp 60 H* ABG pO2 at Pt Temp 48 L* ABG HCO3 45 H ABG Base Excess (Actual) 19.0 VBG pH 7.50 H VBG pCO2 56 VBG pO2 54 VBG HCO3 45 H VBG O2 Saturation 83.0 VBG Base Excess 18.9 Sodium 141 Potassium 3.0 L Chloride 91 L Carbon Dioxide 37 H Anion Gap 16 BUN 11 Creatinine 0.43 L Estim Creat Clear Calc 183.8 Estimated GFR > 60 Random Glucose 112 Calcium 8.4 Phosphorus 3.2 Magnesium 1.7 Albumin 3.6 Microbiology Microbiology Results: Microbiology 01/09/25 06:28 Blood - Venous Blood Culture - Preliminary No growth after 48 hours. 01/09/25 06:28 Blood - Venous Blood Culture - Preliminary No growth after 48 hours. 01/06/25 23:32 Blood - Venous Blood Culture - Preliminary No growth after 48 hours. 01/06/25 23:32 Blood - Venous Blood Culture - Preliminary No growth after 48 hours. Progress Note: A&P Assessment and plan (1) Hypothyroidism: Status: Acute (2) Obesity hypoventilation syndrome: Status: Acute (3) Pulmonary edema: Status: Acute (4) Acute and chronic respiratory failure with hypercapnia: Status: Acute Plan Assessment: 44-year-old lady with underlying obesity hypoventilation admitted with dyspnea further complicated by acute on chronic hypercapnia briefly requiring BiPAP support Plan: Neuro: No acute issues. Previously negative workup for myasthenia gravis. Cardiac: Hypotension resolved. 2D echo essentially normal. Pulmonary: Recurrent acute on chronic hypercapnic respiratory failure secondary to iatrogenic hyperoxia requiring intubation and ventilatory support further complicated by CO2 narcosis associated pulmonary. Extubated 01/10/2025. Continues to require BiPAP support on/off. Renal: No acute issues. Endo: No acute issues. GI: No acute issues. ID: Empiric antibiotics for pulmonary aspiration. Heme/Onc: No acute issues. Psych: No acute issues. Miscellaneous: No acute issues. Prophylaxis: Heparin Diet: Regular Critical care time spent: 45 minutes Quality Stroke Does the patient have a stroke diagnosis?: No VTE Prior VTE?: No VTE Risk Level:: Medical - moderate - high VTE Device Contraindication: Treatment Not Indicated VTE Drug Contraindication: N/A - Med Ordered
--- NOTE | 2025-01-11 10:33 | PC.NURSE ---
Patient transitioned off Bipap to HFNC 40% 50L by RT at 1007 - o2 sat 90-91%. 1030 patient repositioned supine - o2 sat down to 71%, accessory muscle use, RR low 30's, LS dim throughout, weak cough and gag, no secretions. RT and MD at bedside - Patient placed back on bipap 26/10 30% at 1035 - O2 sat up to 89%. Care ongoing.
[2025-01-11 13:43] LABS: Anti Nuclear Antibody Screen NEGATIVE (NEGATIVE)
--- NOTE | 2025-01-11 14:23 | MHC.CM.PN ---
Pt remains on Bipap with plans to lower settings today: Pt from home with family: will await clinical stability for formal PT eval as [facility] Pt referred back in the event she requires additional skilled services. CM to follow
[2025-01-11 15:51] LABS: Cannabinoid Screen Urine Not Detected (Not Detect)
--- NOTE | 2025-01-11 15:56 | PC.RT ---
Pt placed on hfnc for oral care, noted hr to 59, pt unable to swallow meds for nurse. Returned to [facility].
--- NOTE | 2025-01-11 16:28 | MHC.SLORD ---
Speech Language Pathology Order Status: Patient extubated 01/10, but today continues on bi-pap, decreased responsiveness, not appropriate for clinical swallow. RN/THREAD WINDER discussed cancelling existing bedside swallow order from last week, and having ICU re-order when patient presents as ready. THREAD WINDER cancelled existing order in expanse.
[2025-01-11] MEDS: Furosemide 200 MG in 0.9 % Sodium Chloride 80 ML IVCONT (17:24)
[2025-01-11 19:09] LABS: ABG HCO3 46 mmol/L (22-26); ABG O2 % Saturation 79.0 %
[2025-01-11 20:06] LABS: VBG HCO3 41 mmol/L (22-26); VBG O2 % Saturation < 30.0 %
[2025-01-11 20:27] LABS: Venous Blood Gas Refer to POC result
[2025-01-11 20:28] LABS: Albumin Level 4.2 g/dL (3.5-5.0); Anion Gap 18 (12-20); Blood Urea Nitrogen 13 mg/dL (9-16); Calcium 9.2 mg/dL (8.4-10.2); Carbon Dioxide 34 mmol/L (22-29); Chloride 92 mmol/L (96-108); Creatinine Clr Calc Pharmacy 164.1; Estimated Glomerular Filt Rate > 60; Magnesium 2.2 mg/dL (1.6-2.6); Potassium 4.2 mmol/L (3.3-5.1); Sodium 140 mmol/L (135-145)
--- NOTE | 2025-01-11 20:36 | ECG_ITS ---
Test Reason : TAMMY Blood Pressure : */* mmHG Vent. Rate : 54 BPM Atrial Rate : 54 BPM P-R Int : 96 ms QRS Dur : 86 ms QT Int : 486 ms P-R-T Axes : 66 68 75 degrees QTcB Int : 460 ms Sinus bradycardia with short CT Otherwise normal ECG When compared with ECG of 09-Jan-2025 05:00, CT interval has decreased Nonspecific T wave abnormality no longer evident in Inferior leads T wave inversion less evident in Anterolateral leads Referred By: Duy Valdovinos Electronically Signed By: Ranjan Wagner
--- NOTE | 2025-01-11 20:38 | W.PM.CCHP ---
Procedures Date of Service Date of Service: 01/11/25 <Lewis Phillips NP - Last Filed: 01/11/25 21:19> 01/12/25 <Duy Valdovinos MD - Last Filed: 01/12/25 10:47> Intubation Intubation Comments: Patient acute respiratory distress due to significant hypercapnia respiratory failure, refractory to BIPAP support, requiring emergent intubation.? Patient intubated with 7.5 cuffed ET tube under glide scope guidance with visualization of vocal cords, without immediate complications. Endotracheal tube position verified with Chest XRAY. <Lewis Phillips NP - Last Filed: 01/11/25 21:19> Consent for Procedure: Emergent-no informed consent obtained <Lewis Phillips NP - Last Filed: 01/11/25 21:19> Sedative: propofol <Lewis Phillips NP - Last Filed: 01/11/25 21:19> Mg given: 50 <Lewis Phillips NP - Last Filed: 01/11/25 21:19> Paralytic: rocuronium <Lewis Phillips NP - Last Filed: 01/11/25 21:19> Mg given: 50 <Lewis Phillips NP - Last Filed: 01/11/25 21:19> Laryngoscope: fiber optic video scope <Lewis Phillips NP - Last Filed: 01/11/25 21:19> ET tube size: 7.5 <Lewis Phillips NP - Last Filed: 01/11/25 21:19> ET tube uncuffed: No <Lewis Phillips NP - Last Filed: 01/11/25 21:19> Tube secured depth (cm): 25 <Lewis Phillips NP - Last Filed: 01/11/25 21:19> Tube secured location: lips <Lewis Phillips NP - Last Filed: 01/11/25 21:19> Tube placement confirmation: visualized tube passing through cords, equal breath sounds bilaterally, no breath sounds over epigastrium and confirmation by capnometry <Lewis Phillips NP - Last Filed: 01/11/25 21:19> Patient tolerated procedure: well and no complications <Lewis Phillips NP - Last Filed: 01/11/25 21:19> Intubation complications: none <Lewis Phillips NP - Last Filed: 01/11/25 21:19>
[2025-01-11] MEDS: DOPamine HCL/D5W 400 MG/250 ML PLAST..BAG 17.91 MG IVCONT (20:45)
[2025-01-11 21:25] LABS: B Type Natriuretic Peptide 34 pg/mL (<100)
[2025-01-11 21:28] LABS: Troponin-I High Sensitivity 26.1 ng/L (<3.5-17.0)
[2025-01-11 21:39] LABS: ABG HCO3 34 mmol/L (22-26); ABG O2 % Saturation 95.0 %
--- NOTE | 2025-01-11 22:17 | W.PM.CCHP ---
Procedures Date of Service Date of Service: 01/11/25 Bronchoscopy Bronchoscopy Comments: Patient with hypoxia refractory to full ventilatory support requiring manual bagging with some improvement with bag-lavage. Emergency bedside bronchoscopy performed with visualization of thick mucus plugs in trachea and right mainstem bronchus. Mucus plug suctioned out with some improvement in patient's oxygenation. Patient started on Mucomyst and albuterol nebs. Consent for Procedure: Emergent-no informed consent obtained
--- NOTE | 2025-01-11 22:35 | PM.CCN ---
Critical Care Event Note Summary Date of Service: 01/11/25 Code activated: No Narrative: This case had a high probability of a clinically significant, sudden, or life threatening deterioration of this patient's condition which required my full and direct attention, intervention and personal management. Critical Care Time (minutes): 60 Comment: ?Tonight patient required emergent intubation for acute hypoxic hypercapnic respiratory failure despite being on BiPAP support. ? Patient with significant hypoxemia despite max support on the vent,? requiring manual bagging with some improvement with bad lavage,? require emergent bedside bronchoscopy by attending Dr Valdovinos.? Bronch revealed thick mucus plugs in trachea and right mainstem bronchus.? Mucus plug suctioned out with some improvement in patient's oxygenation.? ?Initially hypotensive due to sedation medication for ventilator,? but later redeveloped septic shock,? lactic elevated to 3.1, T high 101.3. ? New Sputum and blood cultures obtained.? ?Patient is high risk for fluid overload,? fluid resuscitated with albumin.? Antibiotic coverage upgraded to vancomycin and Zosyn.? Patient started on Mucomyst and albuterol nebs. Sepsis focused exam performed on 01/12/2025 at 0040 Patient intubated, ? Head is normocephalic, atraumatic, pupils equal round reactive to light accommodation bilaterally. Cardiac:? sinus rhythm,? Clear S1-S2, no murmurs rubs or gallops. Normal cap refill Pulmonary: ? diffuse crackles at bases, vent settings? AC VC 20/350/12/80% Abdomen:? ?Abdomen soft, non-tender, non-distended. Normal bowel sounds. No pulsatile mass. No hepatosplenomegaly. Musculoskeletal:? Moving all 4 extremities randomy . + gag. The strength is 5/5 bilaterally and throughout all 4 extremities.? Gait not assessed at this point. Neurologic:? cranial nerves 2-12 are grossly intact.? No focal deficits noted.Motor strength as above.?? Skin: BLE edema, right > left.? Healthcare Proxy updated in person and over the phone
[2025-01-11 22:39] LABS: VBG HCO3 38 mmol/L (22-26); VBG O2 % Saturation 50.0 %
[2025-01-11] MEDS: Acetylcysteine 10 % 400 MG/4 ML VIAL INHALE (22:41)
[2025-01-11] MEDS: Albuterol Sulfate (0.083%) 2.5 MG/3 ML VIAL.NEB INHALE (22:42)
[2025-01-11] MEDS: Albumin Human 25 % 100 ML 133.33 ML IV ×2 (22:51→23:49)
[2025-01-11 23:23] LABS: ABG Refer to POC result
[2025-01-11] MEDS: vancomycin/NS 2,000 MG/500 ML PLAST..BAG 250 MG IV (23:23)
[2025-01-11 23:24] LABS: Venous Blood Gas Refer to POC result
--- NOTE | 2025-01-11 23:48 | PM.SEPBOLA4 ---
Sepsis Bolus Exclusion Sepsis Bolus Exclusion CHF/Renal Failure Date of Occurrence: 01/11/25 Time of Occurrence:: 22:00 This patient met severe sepsis criteria due to the following condition(s):: Hypotension and Documentation of septic shock In my clinical judgement the administration of 30 ml/kg of crystalloid would be detrimental to this patient due to the patient's following conditions:: Concern for fluid overload Replace the 30 mls/kg with (Zero amount not acceptable and all fluids for severe sepsis must be given at GREATER than 125 mls/hr) *Note: One of the jordan must be documented Colloids amount given in mls:: 200 At a rate of (must be > 125 cchr):: 133
[2025-01-12] VITALS (47 sets, daily range): BP systolic 93–159; BP diastolic 45–84; PULSE 52–81; RESP 16–20; TEMP 33.6–38.5; O2SAT 88–99; BMI 36.6
[2025-01-12] MEDS: Acetaminophen Oral Liquid 650 MG/20.3 ML SOLUTION OG-TUBE (00:34)
[2025-01-12 00:41] LABS: Reflex Lactate? Lactic Acid Added
--- NOTE | 2025-01-12 00:55 | W.PM.CCHP ---
Procedures Date of Service Date of Service: 01/12/25 <Lewis Phillips NP - Last Filed: 01/12/25 00:58> 01/12/25 <Duy Valdovinos MD - Last Filed: 01/12/25 10:47> Central Line Placement Right IJ: Central Line Comments: Patient requiring vasopressor support, Emergent right internal jugular triple lumen central venous catheter placed in usual sterile conditions under ultrasound guidance for approprite vascular access without immediate complications. Central line position verified with Chest XRAY. <Lewis Phillips NP - Last Filed: 01/12/25 00:58> Time out performed: Yes <Lewis Phillips NP - Last Filed: 01/12/25 00:58> Sterile Technique Used: Yes <Lewis Phillips NP - Last Filed: 01/12/25 00:58> Patient placed on monitor/pulse ox: Yes <Lewis Phillips NP - Last Filed: 01/12/25 00:58> MD prep: mask, gown and gloves <Lewis Phillips NP - Last Filed: 01/12/25 00:58> Central line prep: Chlorhexidine scrub <Lewis Phillips NP - Last Filed: 01/12/25 00:58> Local anesthesia used: other anesthetic (On Propofol for vent synchrony ) <Lewis Phillips NP - Last Filed: 01/12/25 00:58> Ultrasound used for placement: Yes <Lewis Phillips NP - Last Filed: 01/12/25 00:58> Central line lumen inserted: triple <Lewis Phillips NP - Last Filed: 01/12/25 00:58> Post procedure: sutured in place, good blood return, all ports aspirated, flushed, capped and sterile dressing applied <Lewis Phillips NP - Last Filed: 01/12/25 00:58> Post procedure x-ray: tip of catheter in good position and no pneumothorax seen <Lewis Phillips NP - Last Filed: 01/12/25 00:58> Patient tolerated procedure: well and no complications <Lewis Phillips NP - Last Filed: 01/12/25 00:58> Complications: none <Lewis Phillips NP - Last Filed: 01/12/25 00:58>
[2025-01-12 01:15] LABS: ~Lactic Acid-LAB USE ONLY 1.8 mmol/L (0.5-2.0)
[2025-01-12 05:03] LABS: VBG HCO3 30 mmol/L (22-26); VBG O2 % Saturation 67.0 %
[2025-01-12 05:10] LABS: Venous Blood Gas Refer to POC result
[2025-01-12 05:17] LABS: Hematocrit 30.4 % (37.0-47.0); Hemoglobin 10.5 g/dl (12.0-16.0); Mean Corpuscular HGB Conc 34.5 g/dl (31.0-35.0); Mean Corpuscular Hemoglobin 28.0 pg (27.0-33.0); Mean Corpuscular Volume 81.1 fL (80.0-98.0); NRBC Abs Auto 0.000 X10*3/uL (0.0-0.012); NRBC Pct Auto 0.0 /100WBC (0.0-0.2); Platelet Count 438 X10*3/uL (160-400); Red Blood Count 3.75 X10*6/uL (4.20-5.50)
[2025-01-12 05:22] LABS: WBC ABN SCTR FOR CBC 1; White Blood Count 25.6 X10*3/uL (4.8-10.8)
[2025-01-12 05:35] LABS: Albumin Level 4.2 g/dL (3.5-5.0); Anion Gap 20 (12-20); Blood Urea Nitrogen 14 mg/dL (9-16); Calcium 8.7 mg/dL (8.4-10.2); Carbon Dioxide 28 mmol/L (22-29); Chloride 94 mmol/L (96-108); Creatinine Clr Calc Pharmacy 162.0; Estimated Glomerular Filt Rate > 60; Magnesium 1.8 mg/dL (1.6-2.6); Potassium 2.6 mmol/L (3.3-5.1); Sodium 139 mmol/L (135-145)
[2025-01-12 05:41] LABS: Lymphocytes Absolute Manual 1.0 X10*3/uL (1.2-4.9); Lymphocytes Percent Manual 4 % (20-40); Monocytes Absolute Manual 0.3 X10*3/uL (0.1-1.2); Monocytes Percent Manual 1 % (2-11); Neutrophils Percent Manual 95 % (45-73)
[2025-01-12 05:43] LABS: Ovalocytes 1+ (5-14) /OIF; RBC Morphology NOTED; Smudge Cells PRESENT; Toxic Vacuolation PRESENT
[2025-01-12] MEDS: Potassium Phosphate/NS 15 MMOL/250 ML PLAST..BAG 62.5 MMOL IV ×3 (05:45→20:26)
[2025-01-12] MEDS: Potassium Chloride/H20 40 MEQ/100 ML PIGGYBACK 50 MEQ IV ×3 (05:48→20:24)
--- NOTE | 2025-01-12 05:58 | HO.SKINPHOTO ---
Location: Bridge of nose Category: MDPI Location: coccyx/ buttocks Category: MASD
--- NOTE | 2025-01-12 06:34 | PC.NURSE ---
Assumed care at 1900. JAXSON Phillips and this RN to bedside for assessment. Patient hypoxic to low 80s on monitor, ABG ordered and obtained, see results. Decision made to intubate by JAXSON Phillips. Patient intubated with 7.5 ETT, 25cm?@ upper lip, see MAR for RSI meds. Bilateral breath sounds to auscultation, positive color change via capnography. ETT placement confirmed via pCXR, see vent assessment for settings. Propofol gtt started per AUG for sedation, Levophed gtt started per AUG for BP support, titrated per JAXSON Phillips. OGT placed and verified via pCXR.? Approx 1999: Patient with persistently low volumes, 100mcg fentanyl IVP ordered and administered per AUG for WOB with marginal effect. 20mg Nimbex IVP ordered and administered per AUG. JAXSON Phillips outside room to update patient's family.? Approx 2029: Patient profoundly hypoxic, saturations 60s-70s despite ventilator support. Patient manually bagged by this RN. RT and JAXSON Phillips called to bedside. Patient ashen and cool, HR bradying down and BP low despite levophed support, dopamine gtt added (see MAR). Pacer pads applied, zoll monitor applied. Patient lavaged and suctioned by RT with good effect. Lasix gtt paused per AUG. Approx 2129, patient with another episode of low?saturations despite bagging. Dr. Valdovinos called in to bedside for bronchoscopy.? Approx 2229: Bronchoscopy performed by Dr. Valdovinos, large mucous?plugs removed with good effect (see Critical Care Progress Report). Sputum sample obtained and sent to lab. Repeat labs drawn, JAXSON Phillips notified of all critical values.? Approx 2300: Emergent TLC placed to right IJ by JAXSON Phillips r/t vasopressor support, see report. TLC verified via pCXR. Approx 0200: Patient continues on ventilation support. Propofol gtt running per AUG, RASS -3. Patient able to weakly ZAMORA spontaneously.?+cough,?+gag,?+pain. SR/SB on tele, HR 50s-70s. Levophed gtt running per AUG for MAP >65. Lung sounds auscultated bilaterally, see shift and vent assessment. Abdomen soft and large, OGT secured and flushed, now clamped. TMax 101.3, liquid tylenol administered per AUG via OGT with good effect. Lasix gtt resumed per JAXSON Phillips, caro catheter in place draining clear yellow urine. Skin warm and moist, greatly improved coloring. Vancomycin and Zosyn administered?per AUG. Bed locked in lowest possible position, oral care provided, bed alarm on.? Approx 0400: Bed bath given, patient repositioned, new skin photos taken. See skin note. Tolerated repositioning well. Approx 0500: Repeat labs drawn. JAXSON Phillips notified of critical potassium (see results), KCl and Kphos?ordered and administered per AUG.? Now: Bedside report given to oncoming RN.
[2025-01-12] MEDS: 0.9 % Sodium Chloride Flush 3 ML SYRINGE IVFLUSH ×3 (07:02→23:08)
[2025-01-12 07:33] LABS: Band Neutrophils Percent 0 % (3-5); Neutrophils Absolute Manual 24.3 X10*3/uL (2.0-8.3)
[2025-01-12] MEDS: Acetylcysteine 10 % 400 MG/4 ML VIAL INHALE ×2 (07:41→15:13)
[2025-01-12] MEDS: Albuterol Sulfate (0.083%) 2.5 MG/3 ML VIAL.NEB INHALE ×2 (07:41→15:13)
[2025-01-12] MEDS: Chlorhexidine Gluc Oral Rinse 15 ML MOUTHWASH BUCCAL ×3 (08:04→20:28)
--- NOTE | 2025-01-12 10:44 | MHC.CLN ---
F/U PT RE-INTUBATED LAST EVENING DISCUSSED AT ROUNDS WITH MD CURRENTLY NPO DAY 4 IF TF NEEDED; RECOMMEND GLUCERNA 1.2 AT MAX GOAL RATE 40ML/HR WITH 300ML FREE WATER FLUSHES Q 8 HOURS TO PROVIDE 1152KCALS (1606KCALS WITH SEDATION; 23KCALS/KG), 58G PROTEIN, 1673ML TOTAL WATER FROM FORMULA AND FLUSHES (24ML/KG) MONITOR TOLERANCE AND LYTES FOLLOWING FOR DIET ADVANCEMENT
--- NOTE | 2025-01-12 10:47 | PM.CCPN ---
Subjective Subjective Date of Service: 01/12/25 Interval History: 44-year-old lady with underlying morbid obesity with obesity hyperventilation, PCOS, panic disorder, hypothyroidism admitted on 01/07/2025 with dyspnea to telemetry [facility] in treated empirically for community-acquired pneumonia. Hospital course further complicated by iatrogenic hyperoxia resulting in acute hypercapnia requiring BiPAP support. Patient transferred to telemetry [facility] on 01/08/2025. Overnight patient with another episode you iatrogenic hyperoxia with resultant hypercapnia requiring intubation with ventilatory support and transfer to intensive care unit, further complicated by CO2 narcosis associated aspiration. Extubated uneventfully on 01/10/2025. Overnight with pulmonary aspiration requiring emergent intubation, thereafter with hypoxia refractory to ventilatory support requiring emergent bedside bronchoscopy with secretion clearance with improvement in oxygenation. Overnight events as above. Ventilatory support requirements improved significantly and is now on minimal ventilatory support. Critical Care Time (minutes): 90 Physical Exam Vital Signs: Vital Signs: Last Vital Signs Temp 100.4 F 01/12/25 10:00 Pulse 54 01/12/25 10:36 Resp 16 01/12/25 10:00 BP 141/76 H 01/12/25 10:36 Pulse Ox 95 01/12/25 10:00 O2 Del Method Mechanical Ventil ation 01/12/25 10:00 O2 Flow Rate 21 01/10/25 11:00 FiO2 24 01/12/25 10:00 BMI result Body Mass Index 36.6 Const: General: no acute distress and other (Sedated on ventilatory support) Eyes: Sclerae: sclerae normal EOM: EOMs intact bilaterally Neck: Neck: Yes no lymphadenopathy, Yes trachea midline and Yes supple Resp: Auscultation: clear to auscultation bilaterally Cardio: Rate: regular rate Rhythm: regular rhythm Heart sounds: no gallops, no murmurs and no rubs GI: Palpation (GI): Soft to palpation and Other GI palpation findings present ( Nontender) Auscultation: normal bowel sounds Extrem: General: Yes no pedal edema, No clubbing and No cyanosis Objective Data Labs 01/12/25 04:57 01/12/25 04:57 Labs: Laboratory Results - last 24 hr 01/08/25 01/11/25 01/11/25 04:08 15:24 19:04 WBC RBC Hgb Hct MCV MCH MCHC RDW Plt Count MPV Immature Gran % (Auto) Neut % (Auto) Lymph % (Auto) Braxton % (Auto) Eos % (Auto) Baso % (Auto) Lymph # (Auto) Braxton # (Auto) Eos # (Auto) Baso # (Auto) Abs Immat Gran (auto) Absolute Neuts (auto) Absolute Nucleated RBC Nucleated RBC % (auto) Neutrophils % (Manual) Band Neutrophils % Lymphocytes % (Manual) Monocytes % (Manual) Abs Neuts (Manual) Lymphocytes # (Manual) Monocytes # (Manual) Smudge Cells Toxic Vacuolation Platelet Estimate Plt Morphology Comment RBC Morphology Ovalocytes O2 Saturation 79.0 ABG pH at Pt Temp 7.27 L ABG pCO2 at Pt Temp 100 H* ABG pO2 at Pt Temp 60 L ABG HCO3 46 H ABG Base Excess (Actual) 14.0 VBG pH VBG pCO2 VBG pO2 VBG HCO3 VBG O2 Saturation VBG Base Excess Sodium Potassium Chloride Carbon Dioxide Anion Gap BUN Creatinine Estim Creat Clear Calc Estimated GFR Random Glucose Lactic Acid Lactic Acid F/U @ 2Hr Calcium Phosphorus Magnesium Troponin I High Sens B-Natriuretic Peptide Albumin Urine Opiates Screen Not Detected Ur Buprenorphine Scrn Not Detected Ur Oxycodone Screen Not Detected Urine Methadone Screen Not Detected Urine Fentanyl Screen Not Detected Ur Barbiturates Screen Not Detected Ur Phencyclidine Scrn Not Detected Ur Amphetamines Screen Not Detected U Benzodiazepines Scrn Not Detected Urine Cocaine Screen Not Detected U Marijuana (THC) Screen Not Detected SUKHJINDER Screen NEGATIVE Ref Lab Test Result 01/11/25 01/11/25 01/11/25 20:01 20:03 20:57 WBC RBC Hgb Hct MCV MCH MCHC RDW Plt Count MPV Immature Gran % (Auto) Neut % (Auto) Lymph % (Auto) Braxton % (Auto) Eos % (Auto) Baso % (Auto) Lymph # (Auto) Braxton # (Auto) Eos # (Auto) Baso # (Auto) Abs Immat Gran (auto) Absolute Neuts (auto) Absolute Nucleated RBC Nucleated RBC % (auto) Neutrophils % (Manual) Band Neutrophils % Lymphocytes % (Manual) Monocytes % (Manual) Abs Neuts (Manual) Lymphocytes # (Manual) Monocytes # (Manual) Smudge Cells Toxic Vacuolation Platelet Estimate Plt Morphology Comment RBC Morphology Ovalocytes O2 Saturation ABG pH at Pt Temp ABG pCO2 at Pt Temp ABG pO2 at Pt Temp ABG HCO3 ABG Base Excess (Actual) VBG pH 7.37 VBG pCO2 71 VBG pO2 27 VBG HCO3 41 H VBG O2 Saturation < 30.0 VBG Base Excess 13.0 Sodium 140 Potassium 4.2 D Chloride 92 L Carbon Dioxide 34 H Anion Gap 18 BUN 13 Creatinine 0.48 L Estim Creat Clear Calc 164.1 Estimated GFR > 60 Random Glucose 141 H Lactic Acid Lactic Acid F/U @ 2Hr Calcium 9.2 D Phosphorus 4.6 H Magnesium 2.2 Troponin I High Sens 26.1 H D B-Natriuretic Peptide 34 Albumin 4.2 Urine Opiates Screen Ur Buprenorphine Scrn Ur Oxycodone Screen Urine Methadone Screen Urine Fentanyl Screen Ur Barbiturates Screen Ur Phencyclidine Scrn Ur Amphetamines Screen U Benzodiazepines Scrn Urine Cocaine Screen U Marijuana (THC) Screen SUKHJINDER Screen Ref Lab Test Result 01/11/25 01/11/25 01/11/25 21:36 22:34 22:38 WBC RBC Hgb Hct MCV MCH MCHC RDW Plt Count MPV Immature Gran % (Auto) Neut % (Auto) Lymph % (Auto) Braxton % (Auto) Eos % (Auto) Baso % (Auto) Lymph # (Auto) Braxton # (Auto) Eos # (Auto) Baso # (Auto) Abs Immat Gran (auto) Absolute Neuts (auto) Absolute Nucleated RBC Nucleated RBC % (auto) Neutrophils % (Manual) Band Neutrophils % Lymphocytes % (Manual) Monocytes % (Manual) Abs Neuts (Manual) Lymphocytes # (Manual) Monocytes # (Manual) Smudge Cells Toxic Vacuolation Platelet Estimate Plt Morphology Comment RBC Morphology Ovalocytes O2 Saturation 95.0 ABG pH at Pt Temp 7.49 H ABG pCO2 at Pt Temp 44 ABG pO2 at Pt Temp 74 L ABG HCO3 34 H ABG Base Excess (Actual) 10.3 VBG pH 7.49 H VBG pCO2 49 VBG pO2 32 VBG HCO3 38 H VBG O2 Saturation 50.0 VBG Base Excess 13.2 Sodium Potassium Chloride Carbon Dioxide Anion Gap BUN Creatinine Estim Creat Clear Calc Estimated GFR Random Glucose Lactic Acid 3.1 H* Lactic Acid F/U @ 2Hr Calcium Phosphorus Magnesium Troponin I High Sens B-Natriuretic Peptide Albumin Urine Opiates Screen Ur Buprenorphine Scrn Ur Oxycodone Screen Urine Methadone Screen Urine Fentanyl Screen Ur Barbiturates Screen Ur Phencyclidine Scrn Ur Amphetamines Screen U Benzodiazepines Scrn Urine Cocaine Screen U Marijuana (THC) Screen SUKHJINDER Screen Ref Lab Test Result 01/12/25 01/12/25 01/12/25 00:57 04:57 10:00 WBC 25.6 H RBC 3.75 L Hgb 10.5 L Hct 30.4 L MCV 81.1 MCH 28.0 MCHC 34.5 RDW 14.6 Plt Count 438 H D MPV 9.3 L Immature Gran % (Auto) Cancelled Neut % (Auto) Cancelled Lymph % (Auto) Cancelled Braxton % (Auto) Cancelled Eos % (Auto) Cancelled Baso % (Auto) Cancelled Lymph # (Auto) Cancelled Braxton # (Auto) Cancelled Eos # (Auto) Cancelled Baso # (Auto) Cancelled Abs Immat Gran (auto) Cancelled Absolute Neuts (auto) Cancelled Absolute Nucleated RBC 0.000 Nucleated RBC % (auto) 0.0 Neutrophils % (Manual) 95 H Band Neutrophils % 0 L Lymphocytes % (Manual) 4 L Monocytes % (Manual) 1 L Abs Neuts (Manual) 24.3 H Lymphocytes # (Manual) 1.0 L Monocytes # (Manual) 0.3 Smudge Cells PRESENT Toxic Vacuolation PRESENT Platelet Estimate NORMAL Plt Morphology Comment NORMAL RBC Morphology NOTED Ovalocytes 1+ (5-14) O2 Saturation ABG pH at Pt Temp ABG pCO2 at Pt Temp ABG pO2 at Pt Temp ABG HCO3 ABG Base Excess (Actual) VBG pH 7.60 H* VBG pCO2 30 VBG pO2 39 VBG HCO3 30 H VBG O2 Saturation 67.0 VBG Base Excess 9.4 Sodium 139 Potassium 2.6 L* D Chloride 94 L Carbon Dioxide 28 Anion Gap 20 BUN 14 Creatinine 0.49 L Estim Creat Clear Calc 162.0 Estimated GFR > 60 Random Glucose 214 H Lactic Acid Lactic Acid F/U @ 2Hr 1.8 Calcium 8.7 Phosphorus 1.3 L Magnesium 1.8 Troponin I High Sens B-Natriuretic Peptide Albumin 4.2 Urine Opiates Screen Ur Buprenorphine Scrn Ur Oxycodone Screen Urine Methadone Screen Urine Fentanyl Screen Ur Barbiturates Screen Ur Phencyclidine Scrn Ur Amphetamines Screen U Benzodiazepines Scrn Urine Cocaine Screen U Marijuana (THC) Screen SUKHJINDER Screen Ref Lab Test Result Cancelled Microbiology Microbiology Results: Microbiology 01/11/25 22:19 Sputum - Suctioned Gram Stain - Final 01/06/25 23:32 Blood - Venous Blood Culture - Final No growth after 5 days. 01/06/25 23:32 Blood - Venous Blood Culture - Final No growth after 5 days. 01/09/25 06:28 Blood - Venous Blood Culture - Preliminary No growth after 48 hours. 01/09/25 06:28 Blood - Venous Blood Culture - Preliminary No growth after 48 hours. Progress Note: A&P Assessment and plan (1) Obesity hypoventilation syndrome: Status: Acute (2) Acute on chronic respiratory failure with hypoxia and hypercapnia: Status: Acute (3) Pulmonary aspiration: Status: Acute Plan Assessment: 44-year-old lady with underlying obesity hypoventilation admitted with dyspnea further complicated by acute on chronic hypercapnia briefly requiring BiPAP support Plan: Neuro: No acute issues. Previously negative workup for myasthenia gravis. Additional neurological evaluation/workup pending. Cardiac: Hypotension secondary to pulmonary aspiration, continue to titrate off pressor support as tolerated. Pulmonary: Recurrent acute on chronic hypercapnic respiratory failure secondary to iatrogenic hyperoxia requiring intubation and ventilatory support further complicated by CO2 narcosis associated pulmonary. Extubated 01/10/2025. Patient with pulmonary aspiration requiring emergent intubation thereafter with refractory hypoxemia requiring bedside bronchoscopy for secretion clearance on 01/11/2025, now with minimal ventilator support requirements. Renal: No acute issues. Endo: No acute issues. GI: No acute issues. ID: Empiric antibiotics for pulmonary aspiration. Heme/Onc: No acute issues. Psych: No acute issues. Miscellaneous: No acute issues. Prophylaxis: Heparin, famotidine Diet: Tube feeds Critical care time spent: 90 minutes Quality Stroke Does the patient have a stroke diagnosis?: No VTE Prior VTE?: No VTE Risk Level:: Medical - moderate - high VTE Device Contraindication: Treatment Not Indicated VTE Drug Contraindication: N/A - Med Ordered
--- NOTE | 2025-01-12 12:33 | HO.WOUND ---
Wound Consult: Initial 44yr old?female admitted [place] [facility] [place]07[place]25 07:11- See progress notes and H&P for detailed history.? Wound consult placed for .? Patient is currently intubated and remains in ICU level of care. 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 Willa wound: Intact Goals of Treatment: ? Device no longer in use - continue to off load pressure Coccyx Etiology: ?MASD Moisture Associated Skin Damage at base of gluteal fold ? Wound Bed: resolving partial thickness tissue loss - clean wound bed Edges: ? mirrored and attached Willa wound: ?macerated and hyperpigmented Goals of Treatment: Off Load Pressure and Recommendations: 1. Turn and Reposition every 2 hours and as needed for patient comfort.? Use pillows or wedges to support off loading positions. 2. Off Load all bony prominences with use of pillows and heel boots if needed.? Apply Preventative foams where needed. ? 3. Monitor for incontinence and moisture control, use barrier creams when needed for prevention and treatment. 4. Provide adequate and supplemental nutrition.? 5. Continue low air loss mattress. 6. When applicable maintain blood glucose levels per Providers order. Bridge of nose - Device not in use at this time. Continue to keep free of device - if device needed ensure foam dressing in use prior to application to aid in off loading pressure. Coccyx - ?Off Load Pressure with Q2 hr turns and use of pillows - Routine cleansing.? Apply skin prep allow to dry.? Cover with foam dressing to aid in off loading and protection from friction. Change every 3 days and PRN. Re-consult wound care Nurse for wound deterioration or wound changes.
--- NOTE | 2025-01-12 16:12 | MHC.CM.PN ---
Pt required intubation d/t worsening respiratory status. Pt had an emergent bronchoscopy last evening - neurology to revisit for ? interventions. Pt initially from home w/family but had been at [place] [facility] just prior to [facility] admission. Re-referred back in the event pt requires STR. CM to follow
--- NOTE | 2025-01-12 17:38 | PC.NURSE ---
Assumed care at 0700 - patient remains intubated and sedated. No sedation vacation per MD. Levo gtt titrated down per EMAR. Electrolytes replaced - repeat labs ordered for 01/13 0600. Started on tube feed diet - no s/s of intolerance. Wound consult placed for new MDPI to bridge of nose. Care ongoing.
[2025-01-12 19:17] LABS: Venous Blood Gas Refer to POC result
[2025-01-12 19:18] LABS: VBG HCO3 33 mmol/L (22-26); VBG O2 % Saturation 83.0 %
[2025-01-12 19:44] LABS: Albumin Level 4.1 g/dL (3.5-5.0); Anion Gap 17 (12-20); Blood Urea Nitrogen 14 mg/dL (9-16); Calcium 8.7 mg/dL (8.4-10.2); Carbon Dioxide 29 mmol/L (22-29); Chloride 99 mmol/L (96-108); Creatinine Clr Calc Pharmacy 155.6; Estimated Glomerular Filt Rate > 60; Magnesium 2.0 mg/dL (1.6-2.6); Potassium 2.5 mmol/L (3.3-5.1); Sodium 142 mmol/L (135-145)
[2025-01-12] MEDS: Potassium Chloride Packet 20 MEQ PACKET 60 MEQ PO (20:37)
[2025-01-13] VITALS (39 sets, daily range): BP systolic 98–129; BP diastolic 51–71; PULSE 53–84; RESP 16–27; TEMP 34.7–38.2; O2SAT 90–96; BMI 37.0
[2025-01-13] MEDS: Albuterol Sulfate (0.083%) 2.5 MG/3 ML VIAL.NEB INHALE ×4 (00:16→23:46)
[2025-01-13] MEDS: Acetylcysteine 10 % 400 MG/4 ML VIAL INHALE ×4 (00:17→23:46)
[2025-01-13 05:31] LABS: VBG HCO3 28 mmol/L (22-26); VBG O2 % Saturation 63.0 %
[2025-01-13 05:45] LABS: MANUAL DIFF FLAG NO
[2025-01-13 05:52] LABS: Hematocrit 30.3 % (37.0-47.0); Hemoglobin 10.4 g/dl (12.0-16.0); Imm Gran Abs Auto 0.06 X10*3/uL (0.00-0.03); Imm Gran Pct Auto 0.5 % (0.0-0.4); Lymphocytes Absolute Auto 0.7 X10*3/uL (1.2-4.9); Mean Corpuscular HGB Conc 34.3 g/dl (31.0-35.0); Mean Corpuscular Hemoglobin 27.9 pg (27.0-33.0); Mean Corpuscular Volume 81.2 fL (80.0-98.0); NRBC Abs Auto 0.000 X10*3/uL (0.0-0.012); NRBC Pct Auto 0.0 /100WBC (0.0-0.2); Platelet Count 403 X10*3/uL (160-400); Red Blood Count 3.73 X10*6/uL (4.20-5.50); White Blood Count 12.8 X10*3/uL (4.8-10.8)
[2025-01-13 06:12] LABS: Albumin Level 4.0 g/dL (3.5-5.0); Anion Gap 14 (12-20); Blood Urea Nitrogen 16 mg/dL (9-16); Calcium 8.6 mg/dL (8.4-10.2); Carbon Dioxide 26 mmol/L (22-29); Chloride 104 mmol/L (96-108); Creatinine Clr Calc Pharmacy 173.6; Estimated Glomerular Filt Rate > 60; Magnesium 2.2 mg/dL (1.6-2.6); Potassium 3.1 mmol/L (3.3-5.1); Sodium 141 mmol/L (135-145)
--- NOTE | 2025-01-13 07:25 | PC.NURSE ---
Critical Care Nursing Note? Assumed care of the patient at 1900. Patient remained on ventilator support, sedate on propofol gtt.? See eMAR for levophed titrations.? Tube feeding increased 10ml every 4 hours to reach goal of 60ml/hr, currently running at 50ml/hr, next increase scheduled for 0800.? Report given to oncoming shift.
[2025-01-13 08:00] LABS: Glucose, Whole Blood 247 mg/dL (60-115)
[2025-01-13] MEDS: Potassium Phosphate/NS 15 MMOL/250 ML PLAST..BAG 62.5 MMOL IV ×2 (08:54→20:34)
[2025-01-13] MEDS: Potassium Chloride/H20 40 MEQ/100 ML PIGGYBACK 100 MEQ IV (08:54)
[2025-01-13] MEDS: Chlorhexidine Gluc Oral Rinse 15 ML MOUTHWASH BUCCAL ×3 (08:56→20:23)
[2025-01-13] MEDS: 0.9 % Sodium Chloride Flush 3 ML SYRINGE IVFLUSH ×3 (08:56→23:10)
[2025-01-13 11:35] LABS: Venous Blood Gas Refer to POC result
--- NOTE | 2025-01-13 11:41 | P.PNCC_ITS ---
Subjective Subjective Date of Service: 01/13/25 Interval History: 44-year-old lady with underlying morbid obesity with obesity hyperventilation, PCOS, panic disorder, hypothyroidism admitted on 01/07/2025 with dyspnea to telemetry [facility] in treated empirically for community-acquired pneumonia. Hospital course further complicated by iatrogenic hyperoxia resulting in acute hypercapnia requiring BiPAP support. Patient transferred to telemetry [facility] on 01/08/2025. Overnight patient with another episode you iatrogenic hyperoxia with resultant hypercapnia requiring intubation with ventilatory support and transfer to intensive care unit, further complicated by CO2 narcosis associated aspiration. Extubated uneventfully on 01/10/2025. Overnight with pulmonary aspiration requiring emergent intubation, thereafter with hypoxia refractory to ventilatory support requiring emergent bedside bronchoscopy with secretion clearance with improvement in oxygenation. No events overnight. Requires minimal ventilatory support. Critical Care Time (minutes): 60 Physical Exam 2 Vital Signs: Vital Signs: Last Vital Signs Temp 99.7 F 01/13/25 10:00 Pulse 75 01/13/25 10:00 Resp 17 01/13/25 10:00 BP 112/71 01/13/25 10:00 Pulse Ox 93 01/13/25 10:00 O2 Del Method Mechanical Ventil ation 01/13/25 10:00 O2 Flow Rate 21 01/10/25 11:00 FiO2 21 01/13/25 11:12 BMI result Body Mass Index 37.0 Const: General: no acute distress and other (Sedated on ventilatory support) Eyes: Sclerae: sclerae normal EOM: EOMs intact bilaterally Neck: Neck: Yes no lymphadenopathy, Yes trachea midline and Yes supple Resp: Auscultation: clear to auscultation bilaterally Cardio: Rate: regular rate Rhythm: regular rhythm Heart sounds: no gallops, no murmurs and no rubs GI: Palpation (GI): Soft to palpation and Other GI palpation findings present ( Nontender) Auscultation: normal bowel sounds Extrem: General: Yes no pedal edema, No clubbing and No cyanosis Objective Data Labs 01/13/25 05:27 01/13/25 05:27 Labs: Laboratory Results - last 24 hr 01/08/25 01/12/25 01/12/25 04:08 19:07 19:14 WBC RBC Hgb Hct MCV MCH MCHC RDW Plt Count MPV Immature Gran % (Auto) Neut % (Auto) Lymph % (Auto) [place] % (Auto) Eos % (Auto) Baso % (Auto) Lymph # (Auto) [place] # (Auto) Eos # (Auto) Baso # (Auto) Abs Immat Gran (auto) Absolute Neuts (auto) Absolute Nucleated RBC Nucleated RBC % (auto) VBG pH 7.52 H VBG pCO2 40 VBG pO2 53 VBG HCO3 33 H VBG O2 Saturation 83.0 VBG Base Excess 10.1 Sodium 142 Potassium 2.5 L* Chloride 99 Carbon Dioxide 29 Anion Gap 17 BUN 14 Creatinine 0.51 Estim Creat Clear Calc 155.6 Estimated GFR > 60 POC Glucose Random Glucose 221 H Calcium 8.7 Phosphorus 2.5 L Magnesium 2.0 Albumin 4.1 Random Vancomycin SUKHJINDER Titer TNP SUKHJINDER Titer 2 TNP SUKHJINDER Titer 3 TNP SUKHJINDER Pattern TNP SUKHJINDER Pattern 2 TNP SUKHJINDER Pattern 3 TNP 01/12/25 01/13/25 01/13/25 20:56 05:27 07:57 WBC 12.8 H RBC 3.73 L Hgb 10.4 L Hct 30.3 L MCV 81.2 MCH 27.9 MCHC 34.3 RDW 15.0 Plt Count 403 H MPV 9.0 L Immature Gran % (Auto) 0.5 H Neut % (Auto) 88.4 H Lymph % (Auto) 5.7 L [place] % (Auto) 5.3 Eos % (Auto) 0.0 Baso % (Auto) 0.1 Lymph # (Auto) 0.7 L [place] # (Auto) 0.7 Eos # (Auto) 0.0 Baso # (Auto) 0.0 Abs Immat Gran (auto) 0.06 H Absolute Neuts (auto) 11.3 H Absolute Nucleated RBC 0.000 Nucleated RBC % (auto) 0.0 VBG pH 7.48 H VBG pCO2 37 VBG pO2 41 VBG HCO3 28 H VBG O2 Saturation 63.0 VBG Base Excess 5.0 Sodium 141 Potassium 3.1 L D Chloride 104 Carbon Dioxide 26 Anion Gap 14 BUN 16 Creatinine 0.46 L Estim Creat Clear Calc 173.6 Estimated GFR > 60 POC Glucose 247 H Random Glucose 256 H Calcium 8.6 Phosphorus 2.2 L Magnesium 2.2 Albumin 4.0 Random Vancomycin 12.6 L SUKHJINDER Titer SUKHJINDER Titer 2 SUKHJINDER Titer 3 SUKHJINDER Pattern SUKHJINDER Pattern 2 SUKHJINDER Pattern 3 Microbiology Microbiology Results: Microbiology 01/11/25 22:19 Sputum - Suctioned Gram Stain - Final 01/11/25 22:19 Sputum - Suctioned Sputum Culture - Final 01/11/25 22:38 Blood - Venous Blood Culture - Preliminary No growth after 24 hours. 01/11/25 22:38 Blood - Venous Blood Culture - Preliminary No growth after 24 hours. 01/06/25 23:32 Blood - Venous Blood Culture - Final No growth after 5 days. 01/06/25 23:32 Blood - Venous Blood Culture - Final No growth after 5 days. 01/09/25 06:28 Blood - Venous Blood Culture - Preliminary No growth after 48 hours. 01/09/25 06:28 Blood - Venous Blood Culture - Preliminary No growth after 48 hours. Progress Note: A&P Assessment and plan (1) Obesity hypoventilation syndrome: Status: Acute (2) Acute on chronic respiratory failure with hypoxia and hypercapnia: Status: Acute (3) Pulmonary aspiration: Status: Acute Plan Assessment: 44-year-old lady with underlying obesity hypoventilation admitted with dyspnea further complicated by acute on chronic hypercapnia briefly requiring BiPAP support Plan: Neuro: No acute issues. Previously negative workup for myasthenia gravis. Additional neurological evaluation/workup pending. Cardiac: Hypotension secondary to pulmonary aspiration, continue to titrate off pressor support as tolerated. Pulmonary: Recurrent acute on chronic hypercapnic respiratory failure secondary to iatrogenic hyperoxia requiring intubation and ventilatory support further complicated by CO2 narcosis associated pulmonary. Extubated 01/10/2025. Patient with pulmonary aspiration requiring emergent intubation thereafter with refractory hypoxemia requiring bedside bronchoscopy for secretion clearance on 01/11/2025, now with minimal ventilator support requirements. Renal: No acute issues. Endo: No acute issues. GI: No acute issues. ID: Empiric antibiotics for pulmonary aspiration. Heme/Onc: No acute issues. Psych: No acute issues. Miscellaneous: No acute issues. Prophylaxis: Heparin, famotidine Diet: Tube feeds Critical care time spent: 60 minutes Quality Stroke Does the patient have a stroke diagnosis?: No VTE Prior VTE?: No VTE Risk Level:: Medical - moderate - high VTE Device Contraindication: Treatment Not Indicated VTE Drug Contraindication: N/A - Med Ordered
[2025-01-13 12:12] LABS: Glucose, Whole Blood 218 mg/dL (60-115)
[2025-01-13] MEDS: Potassium Chloride Packet 20 MEQ PACKET 60 MEQ PO (12:29)
[2025-01-13 17:08] LABS: Glucose, Whole Blood 171 mg/dL (60-115)
--- NOTE | 2025-01-13 19:31 | PC.NURSE ---
Neuro: patient Sedated and intubated on Propofol, see MAR for details, grimace with care, cough and gag minimal but present. Cardiac:SB to SR, see MAR for Levophed titration details. Resp: Dim, Ins and Exp Rhonchi noted, FiO2 at 21% increased to 100% for reposition as patient drops to 83% O2 sat?? GI/: NPO, OG tube in place, Jevity switched to Glucerna infusing at goal, positive placement on auscultation, Langley in place for retention, draining well.? Integumentary/Musculoskeletal: turn and repo every 2 hours to maintain skin integrity, pink foam to coccyx, see skin assessment for full details.
[2025-01-13 19:59] LABS: Anion Gap 13 (12-20); Blood Urea Nitrogen 16 mg/dL (9-16); Calcium 8.4 mg/dL (8.4-10.2); Carbon Dioxide 24 mmol/L (22-29); Chloride 110 mmol/L (96-108); Creatinine Clr Calc Pharmacy 181.5; Estimated Glomerular Filt Rate > 60; Magnesium 2.2 mg/dL (1.6-2.6); Potassium 3.9 mmol/L (3.3-5.1); Sodium 143 mmol/L (135-145)
[2025-01-13 23:45] LABS: Glucose, Whole Blood 176 mg/dL (60-115)
[2025-01-14] VITALS (41 sets, daily range): BP systolic 90–122; BP diastolic 47–83; PULSE 63–97; RESP 16–30; TEMP 34.9–38.3; O2SAT 89–99; BMI 38.5
[2025-01-14] MEDS: Potassium Phosphate/NS 15 MMOL/250 ML PLAST..BAG 62.5 MMOL IV (00:35)
[2025-01-14 05:44] LABS: VBG HCO3 25 mmol/L (22-26); VBG O2 % Saturation 72.0 %
[2025-01-14 05:45] LABS: Hematocrit 28.7 % (37.0-47.0); Hemoglobin 9.7 g/dl (12.0-16.0); Imm Gran Abs Auto 0.07 X10*3/uL (0.00-0.03); Imm Gran Pct Auto 0.6 % (0.0-0.4); Lymphocytes Absolute Auto 1.0 X10*3/uL (1.2-4.9); MANUAL DIFF FLAG NO; Mean Corpuscular HGB Conc 33.8 g/dl (31.0-35.0); Mean Corpuscular Hemoglobin 28.2 pg (27.0-33.0); Mean Corpuscular Volume 83.4 fL (80.0-98.0); NRBC Abs Auto 0.000 X10*3/uL (0.0-0.012); NRBC Pct Auto 0.0 /100WBC (0.0-0.2); Platelet Count 316 X10*3/uL (160-400); Red Blood Count 3.44 X10*6/uL (4.20-5.50); White Blood Count 11.2 X10*3/uL (4.8-10.8)
[2025-01-14 06:00] LABS: Albumin Level 3.5 g/dL (3.5-5.0); Anion Gap 13 (12-20); Blood Urea Nitrogen 20 mg/dL (9-16); Calcium 8.2 mg/dL (8.4-10.2); Carbon Dioxide 23 mmol/L (22-29); Chloride 112 mmol/L (96-108); Creatinine Clr Calc Pharmacy 194.1; Estimated Glomerular Filt Rate > 60; Magnesium 2.1 mg/dL (1.6-2.6); Potassium 3.9 mmol/L (3.3-5.1); Sodium 144 mmol/L (135-145)
[2025-01-14] MEDS: Albuterol Sulfate (0.083%) 2.5 MG/3 ML VIAL.NEB INHALE (07:38)
[2025-01-14] MEDS: Acetylcysteine 10 % 400 MG/4 ML VIAL INHALE (07:38)
[2025-01-14] MEDS: 0.9 % Sodium Chloride Flush 3 ML SYRINGE IVFLUSH ×2 (08:27→15:09)
[2025-01-14] MEDS: Calcium Gluconate/NaCl,Iso-Osm 1 GM/50 ML PLAST..BAG IV (08:27)
[2025-01-14] MEDS: Chlorhexidine Gluc Oral Rinse 15 ML MOUTHWASH BUCCAL ×3 (08:28→20:18)
--- NOTE | 2025-01-14 11:33 | PM.CCPN ---
Subjective Subjective Date of Service: 01/14/25 Interval History: 44-year-old lady with underlying morbid obesity with obesity hyperventilation, PCOS, panic disorder, hypothyroidism admitted on 01/07/2025 with dyspnea to telemetry [facility] in treated empirically for community-acquired pneumonia. Hospital course further complicated by iatrogenic hyperoxia resulting in acute hypercapnia requiring BiPAP support. Patient transferred to telemetry [facility] on 01/08/2025. Overnight patient with another episode you iatrogenic hyperoxia with resultant hypercapnia requiring intubation with ventilatory support and transfer to intensive care unit, further complicated by CO2 narcosis associated aspiration. Extubated uneventfully on 01/10/2025. Overnight with pulmonary aspiration requiring emergent intubation, thereafter with hypoxia refractory to ventilatory support requiring emergent bedside bronchoscopy with secretion clearance with improvement in oxygenation. No events overnight. Requires minimal ventilatory support. With poor tolerance of T-piece trial today. Critical Care Time (minutes): 60 Physical Exam Vital Signs: Vital Signs: Last Vital Signs Temp 100.6 F H 01/14/25 11:00 Pulse 86 01/14/25 11:00 Resp 26 H 01/14/25 11:00 BP 115/67 01/14/25 11:00 Pulse Ox 90 L 01/14/25 11:00 O2 Del Method Mechanical Ventil ation 01/14/25 11:00 O2 Flow Rate 21 01/13/25 18:00 FiO2 21 01/14/25 11:10 BMI result Body Mass Index 38.5 Const: General: no acute distress and other (Sedated on ventilatory support) Eyes: Sclerae: sclerae normal EOM: EOMs intact bilaterally Neck: Neck: Yes no lymphadenopathy, Yes trachea midline and Yes supple Resp: Effort & Inspection: normal respiratory effort and no respiratory distress Auscultation: clear to auscultation bilaterally Cardio: Rate: regular rate Rhythm: regular rhythm Heart sounds: no gallops, no murmurs and no rubs GI: Palpation (GI): Soft to palpation and Other GI palpation findings present ( Nontender) Auscultation: normal bowel sounds Extrem: General: Yes no pedal edema, No clubbing and No cyanosis Objective Data Labs 01/14/25 05:37 01/14/25 05:37 Labs: Laboratory Results - last 24 hr 01/13/25 01/13/25 01/13/25 11:59 17:02 19:20 WBC RBC Hgb Hct MCV MCH MCHC RDW Plt Count MPV Immature Gran % (Auto) Neut % (Auto) Lymph % (Auto) [place] % (Auto) Eos % (Auto) Baso % (Auto) Lymph # (Auto) [place] # (Auto) Eos # (Auto) Baso # (Auto) Abs Immat Gran (auto) Absolute Neuts (auto) Absolute Nucleated RBC Nucleated RBC % (auto) VBG pH VBG pCO2 VBG pO2 VBG HCO3 VBG O2 Saturation VBG Base Excess Sodium 143 Potassium 3.9 D Chloride 110 H Carbon Dioxide 24 Anion Gap 13 BUN 16 Creatinine 0.44 L Estim Creat Clear Calc 181.5 Estimated GFR > 60 POC Glucose 218 H 171 H Random Glucose 166 H Calcium 8.4 Phosphorus 1.8 L Magnesium 2.2 Albumin Random Vancomycin 01/13/25 01/13/25 01/14/25 20:49 23:33 05:37 WBC 11.2 H RBC 3.44 L Hgb 9.7 L Hct 28.7 L MCV 83.4 MCH 28.2 MCHC 33.8 RDW 15.4 Plt Count 316 MPV 8.7 L Immature Gran % (Auto) 0.6 H Neut % (Auto) 81.5 H Lymph % (Auto) 8.5 L [place] % (Auto) 9.3 Eos % (Auto) 0.0 Baso % (Auto) 0.1 Lymph # (Auto) 1.0 L [place] # (Auto) 1.1 Eos # (Auto) 0.0 Baso # (Auto) 0.0 Abs Immat Gran (auto) 0.07 H Absolute Neuts (auto) 9.1 H Absolute Nucleated RBC 0.000 Nucleated RBC % (auto) 0.0 VBG pH VBG pCO2 VBG pO2 VBG HCO3 VBG O2 Saturation VBG Base Excess Sodium 144 Potassium 3.9 Chloride 112 H Carbon Dioxide 23 Anion Gap 13 BUN 20 H Creatinine 0.42 L Estim Creat Clear Calc 194.1 Estimated GFR > 60 POC Glucose 176 H Random Glucose 175 H Calcium 8.2 L Phosphorus 3.1 Magnesium 2.1 Albumin 3.5 Random Vancomycin 16.6 01/14/25 05:39 WBC RBC Hgb Hct MCV MCH MCHC RDW Plt Count MPV Immature Gran % (Auto) Neut % (Auto) Lymph % (Auto) [place] % (Auto) Eos % (Auto) Baso % (Auto) Lymph # (Auto) [place] # (Auto) Eos # (Auto) Baso # (Auto) Abs Immat Gran (auto) Absolute Neuts (auto) Absolute Nucleated RBC Nucleated RBC % (auto) VBG pH 7.41 VBG pCO2 39 VBG pO2 47 VBG HCO3 25 VBG O2 Saturation 72.0 VBG Base Excess 1.4 Sodium Potassium Chloride Carbon Dioxide Anion Gap BUN Creatinine Estim Creat Clear Calc Estimated GFR POC Glucose Random Glucose Calcium Phosphorus Magnesium Albumin Random Vancomycin Microbiology Microbiology Results: Microbiology 01/09/25 06:28 Blood - Venous Blood Culture - Final No growth after 5 days. 01/09/25 06:28 Blood - Venous Blood Culture - Final No growth after 5 days. 01/11/25 22:38 Blood - Venous Blood Culture - Preliminary No growth after 48 hours. 01/11/25 22:38 Blood - Venous Blood Culture - Preliminary No growth after 48 hours. 01/11/25 22:19 Sputum - Suctioned Gram Stain - Final 01/11/25 22:19 Sputum - Suctioned Sputum Culture - Final 01/06/25 23:32 Blood - Venous Blood Culture - Final No growth after 5 days. 01/06/25 23:32 Blood - Venous Blood Culture - Final No growth after 5 days. Progress Note: A&P Assessment and plan (1) Obesity hypoventilation syndrome: Status: Acute (2) Acute and chronic respiratory failure with hypercapnia: Status: Acute (3) Pulmonary aspiration: Status: Acute Plan Assessment: 44-year-old lady with underlying obesity hypoventilation admitted with dyspnea further complicated by acute on chronic hypercapnia briefly requiring BiPAP support Plan: Neuro: No acute issues. Previously negative workup for myasthenia gravis. Additional neurological evaluation/workup pending. Cardiac: Hypotension secondary to pulmonary aspiration, continue to titrate off pressor support as tolerated. Pulmonary: Recurrent acute on chronic hypercapnic respiratory failure secondary to iatrogenic hyperoxia requiring intubation and ventilatory support further complicated by CO2 narcosis associated pulmonary. Extubated 01/10/2025. Patient with pulmonary aspiration requiring emergent intubation thereafter with refractory hypoxemia requiring bedside bronchoscopy for secretion clearance on 01/11/2025, now with minimal ventilator support requirements, but with poor tolerance of T-piece trial today. Renal: No acute issues. Endo: No acute issues. GI: No acute issues. ID: Empiric antibiotics for pulmonary aspiration. Heme/Onc: No acute issues. Psych: No acute issues. Miscellaneous: No acute issues. Prophylaxis: Heparin, famotidine Diet: Tube feeds Critical care time spent: 60 minutes Quality Stroke Does the patient have a stroke diagnosis?: No VTE Prior VTE?: No VTE Risk Level:: Medical - moderate - high VTE Device Contraindication: Treatment Not Indicated VTE Drug Contraindication: N/A - Med Ordered
[2025-01-14 12:24] LABS: Glucose, Whole Blood 149 mg/dL (60-115)
[2025-01-14 18:24] LABS: Glucose, Whole Blood 139 mg/dL (60-115)
--- NOTE | 2025-01-14 19:30 | PC.NURSE ---
Neuro: patient Sedated and intubated on Propofol, see MAR for details, grimace with care, cough and gag minimal but present, sedation vacation done this morning to attempt t-piece with ET tube. Cardiac:SB to SR, see MAR for Levophed titration details. Resp: Dim, Ins and Exp Rhonchi noted, FiO2 at 21% increased to 100% for reposition as patient drops to 83% O2 sat, during T piece attempt, patient noted to decrease O2Sat decreased to 78 briefly, increased to 88% with 2l applied, patients breathing became labored, HR down to 38 briefly, MD ordered to be placed back on vent? and sedated. GI/: NPO, OG tube in place, Jevity switched to Glucerna infusing at goal, no Lispro coverage needed today, positive placement on auscultation, Langley in place for retention, draining well.? Integumentary/Musculoskeletal: turn and repo every 2 hours to maintain skin integrity, pink foam to coccyx, removed due to noted increased moisture to area, see skin assessment for full details.
[2025-01-15] VITALS (43 sets, daily range): BP systolic 69–144; BP diastolic 23–88; PULSE 53–94; RESP 16–27; TEMP 34.9–38.4; O2SAT 88–95; BMI 39.0
[2025-01-15] MEDS: 0.9 % Sodium Chloride Flush 3 ML SYRINGE IVFLUSH ×3 (00:06→15:24)
[2025-01-15 00:07] LABS: Glucose, Whole Blood 155 mg/dL (60-115)
[2025-01-15 01:27] LABS: Venous Blood Gas Refer to POC result
[2025-01-15 05:24] LABS: VBG HCO3 26 mmol/L (22-26); VBG O2 % Saturation 68.0 %
[2025-01-15 05:26] LABS: Venous Blood Gas Refer to POC result
[2025-01-15 05:49] LABS: MANUAL DIFF FLAG NO
[2025-01-15 05:54] LABS: Hematocrit 30.1 % (37.0-47.0); Hemoglobin 9.8 g/dl (12.0-16.0); Imm Gran Abs Auto 0.10 X10*3/uL (0.00-0.03); Imm Gran Pct Auto 0.7 % (0.0-0.4); Lymphocytes Absolute Auto 3.1 X10*3/uL (1.2-4.9); Mean Corpuscular HGB Conc 32.6 g/dl (31.0-35.0); Mean Corpuscular Hemoglobin 27.5 pg (27.0-33.0); Mean Corpuscular Volume 84.3 fL (80.0-98.0); NRBC Abs Auto 0.000 X10*3/uL (0.0-0.012); NRBC Pct Auto 0.0 /100WBC (0.0-0.2); Platelet Count 321 X10*3/uL (160-400); Red Blood Count 3.57 X10*6/uL (4.20-5.50); White Blood Count 13.5 X10*3/uL (4.8-10.8)
[2025-01-15 06:12] LABS: Albumin Level 3.2 g/dL (3.5-5.0); Anion Gap 12 (12-20); Blood Urea Nitrogen 24 mg/dL (9-16); Calcium 8.0 mg/dL (8.4-10.2); Carbon Dioxide 25 mmol/L (22-29); Chloride 111 mmol/L (96-108); Creatinine Clr Calc Pharmacy 186.8; Estimated Glomerular Filt Rate > 60; Magnesium 2.1 mg/dL (1.6-2.6); Potassium 3.5 mmol/L (3.3-5.1); Sodium 144 mmol/L (135-145)
--- NOTE | 2025-01-15 06:39 | PC.NURSE ---
Patient continues on mechanical ventilation. Propofol gtt running per AUG, RASS -3. SR on tele, HR 60s-70s. Levophed gtt running per AUG for BP support. See vent assessment for settings. Glucerna TF running at goal, see TF assessment. FMS in place and patent, draining small amount of liquid brown stool. Langley catheter in place and patent, draining clear dark yellow urine, UOP approx 30mL/hr. Skin warm and occasionally moist. See skin assessment. Patient repositioned Q2HR, bed locked in lowest position, bed alarm on.
[2025-01-15] MEDS: Calcium Gluconate/NaCl,Iso-Osm 1 GM/50 ML PLAST..BAG IV (07:59)
[2025-01-15] MEDS: Chlorhexidine Gluc Oral Rinse 15 ML MOUTHWASH BUCCAL ×3 (08:27→20:29)
[2025-01-15] MEDS: Potassium Chloride Packet 20 MEQ PACKET 40 MEQ OG-TUBE (08:28)
--- NOTE | 2025-01-15 09:07 | P.PNCC_ITS ---
Subjective Subjective Date of Service: 01/15/25 Interval History: Remains on ventilator this morning Failed weaning trials due to poor ventilation Critical Care Time (minutes): 35 Physical Exam 2 Exam: Exam: General: acute distress, ill appearing and tired appearing Nutritional Appearance: well nourished and overweight Eyes: appearance normal, both eyes and all related structures; Alignment and Position: alignment normal and position normal Neck: No lymphadenopathy, no thyromegaly Resp: bilateral air entry equal, occasional added sounds present Cardio: Regular rate, regular rhythm; Heart sounds: S1 normal heart sound present and S2 normal heart sound present GI: soft, nontender, no guarding, no hepatosplenomegaly : bladder normal to inspection, bladder normal to palpation, no renal angle tenderness Skin: no rashes or lesions noted and elasticity normal Neuro: Sedated, no focal deficits Vital Signs: Vital Signs: Last Vital Signs Temp 100.0 F 01/15/25 08:00 Pulse 63 01/15/25 08:00 Resp 25 H 01/15/25 08:00 BP 128/82 01/15/25 08:00 Pulse Ox 93 01/15/25 08:00 O2 Del Method Mechanical Ventil ation 01/15/25 08:00 O2 Flow Rate 21 01/13/25 18:00 FiO2 21 01/15/25 08:28 BMI result Body Mass Index 39.0 Objective Data Labs 01/15/25 05:19 01/15/25 05:19 Labs: Laboratory Results - last 24 hr 01/14/25 01/14/25 01/14/25 11:39 18:21 20:47 WBC RBC Hgb Hct MCV MCH MCHC RDW Plt Count MPV Immature Gran % (Auto) Neut % (Auto) Lymph % (Auto) [place] % (Auto) Eos % (Auto) Baso % (Auto) Lymph # (Auto) [place] # (Auto) Eos # (Auto) Baso # (Auto) Abs Immat Gran (auto) Absolute Neuts (auto) Absolute Nucleated RBC Nucleated RBC % (auto) VBG pH VBG pCO2 VBG pO2 VBG HCO3 VBG O2 Saturation VBG Base Excess Sodium Potassium Chloride Carbon Dioxide Anion Gap BUN Creatinine Estim Creat Clear Calc Estimated GFR POC Glucose 149 H 139 H Random Glucose Calcium Phosphorus Magnesium Albumin Random Vancomycin 19.3 01/14/25 01/15/25 01/15/25 23:54 05:19 05:20 WBC 13.5 H RBC 3.57 L Hgb 9.8 L Hct 30.1 L MCV 84.3 MCH 27.5 MCHC 32.6 RDW 15.2 Plt Count 321 MPV 8.9 L Immature Gran % (Auto) 0.7 H Neut % (Auto) 69.0 Lymph % (Auto) 22.7 [place] % (Auto) 7.2 Eos % (Auto) 0.3 Baso % (Auto) 0.1 Lymph # (Auto) 3.1 [place] # (Auto) 1.0 Eos # (Auto) 0.0 Baso # (Auto) 0.0 Abs Immat Gran (auto) 0.10 H Absolute Neuts (auto) 9.3 H Absolute Nucleated RBC 0.000 Nucleated RBC % (auto) 0.0 VBG pH 7.48 H VBG pCO2 35 VBG pO2 43 VBG HCO3 26 VBG O2 Saturation 68.0 VBG Base Excess 3.5 Sodium 144 Potassium 3.5 Chloride 111 H Carbon Dioxide 25 Anion Gap 12 BUN 24 H Creatinine 0.44 L Estim Creat Clear Calc 186.8 Estimated GFR > 60 POC Glucose 155 H Random Glucose 155 H Calcium 8.0 L Phosphorus 2.2 L Magnesium 2.1 Albumin 3.2 L Random Vancomycin Microbiology Microbiology Results: Microbiology 01/09/25 06:28 Blood - Venous Blood Culture - Final No growth after 5 days. 01/09/25 06:28 Blood - Venous Blood Culture - Final No growth after 5 days. 01/11/25 22:38 Blood - Venous Blood Culture - Preliminary No growth after 48 hours. 01/11/25 22:38 Blood - Venous Blood Culture - Preliminary No growth after 48 hours. 01/11/25 22:19 Sputum - Suctioned Gram Stain - Final 01/11/25 22:19 Sputum - Suctioned Sputum Culture - Final 01/06/25 23:32 Blood - Venous Blood Culture - Final No growth after 5 days. 01/06/25 23:32 Blood - Venous Blood Culture - Final No growth after 5 days. Progress Note: A&P Assessment and plan (1) Hypothyroidism: Status: Acute (2) Pneumonia: Status: Acute (3) Obesity hypoventilation syndrome: Status: Acute (4) Acute and chronic respiratory failure with hypercapnia: Status: Acute (5) Pulmonary aspiration: Status: Acute Plan Neuro: Acute encephalopathy possibly due to metabolic encephalopathy On propofol for sedation, as needed fentanyl for analgesia, will wean sedation to wean from ventilator. Will switch to Precedex. Close neurological status monitoring in the ICU every hour will get EMG tomorrow to rule out myasthenia, on empiric solumedrol 60mg daily. Respiratory: Acute hypoxemic respiratory failure due to combination of obesity hypoventilation syndrome along with possible neurological disorders leading to poor respiratory efforts Currently on ventilator support On PRVC mode FiO2: 21%, PEEP 5, TV 350, RR 16; Peak pressures and plateau pressures are under the curve Ventilator management bundle with head end elevation, aspiration precaution, chlorhexidine mouthwash, daily awakening trials, daily spontaneous breathing trials GI: on tube feeds Renal: hypophosphatemia- will replace as per protocol We will closely monitor I's and O's Avoid nephrotoxic medications Heme: Chronic anemia, closely monitor H&H, transfuse for hemoglobin less than 7 grams/deciliter Endocrine: Blood sugars under control Sliding scale insulin as needed hypothyroidism: on levothyroxine 88mcg daily. Infectious disease: panculture negative so far on empiric vancomycin and Zosyn Musculoskeletal: Decubitus ulcer prevention protocol Lines: peripheral Prophylaxis: Lovenox, pantoprazole Quality Stroke Does the patient have a stroke diagnosis?: No VTE Prior VTE?: No VTE Risk Level:: Medical - moderate - high VTE Device Contraindication: Treatment Not Indicated VTE Drug Contraindication: N/A - Med Ordered
--- NOTE | 2025-01-15 10:51 | PC.NURSE ---
Assumed care @ 0700? Neuro: Sedated/intubated, on? propofol gtt,. Grimaces with oral care, opens eyes to name, moves hands occasionally. Resp: Vent. support . Tolerated PSV Settings for approx 2 hours.? Cardiac: Sinus Rhytm on tele, Levophed gtt per AUG, MAP goal >65. GI: LBM 01/15, FMD in place, +bowel sounds, OGT in place, tolerating tube feeds w/o signs of intolerance, POC Q6hr, on sliding scale insulin per AUG. . : Langley in place, patent/draining. Skin: ?Impaired skin integrity - see skin assessment (repositioning maintained)? Temp: Febrile low 100s, ice pack in place Infectious: IV antibiotics? Lines: TLC R IJ, peripheral IVs.
--- NOTE | 2025-01-15 11:10 | MHC.CLN ---
F/U PT REMAINS INTUBATED AND SEDATED DISCUSSED AT ROUNDS WITH PT RECEIVING GLUCERNA 1.2 AT MAX GOAL RATE 60ML/HR PROVIDES 1728KCALS (2333KCALS WITH SEDATION; 34KCALS/KG), 86G PROTEIN, 1159ML TOTAL WATER FROM FORMULA TF OVER EXCEEDING KCALS NEEDS WITH SEDATION AT THIS TIME RECOMMEND DECREASING GLUCERNA 1.2 AT MAX GOAL RATE 40ML/HR WITH 300ML FREE WATER FLUSHES Q 8 HOURS TO PROVIDE 1152KCALS (1757KCALS WITH SEDATION; 25KCALS/KG), 58G PROTEIN, 1673ML TOTAL WATER FROM FORMULA AND FLUSHES (24ML/KG) MONITOR TOLERANCE AND LYTES
[2025-01-15 11:24] LABS: Glucose, Whole Blood 204 mg/dL (60-115)
--- NOTE | 2025-01-15 15:13 | MHC.CM.PN ---
Pt remains intubated in ICU: HCP Samantha at bedside: with assistance from white washer, CM discussed having Samantha receive daily clinical updates that will then be communicated to the family. Samantha asks that we conference her dtr with the updates as she has medical training and can assist Samantha with terminology, etc. This call will be made after multi disciplinary rounds. Plan of care today are to attempt extubation. CM to follow for finalization of d/c needs.
[2025-01-15] MEDS: dexmedeTOMIDine HCL/NS 400 MCG/100 ML PLAST..BAG 25.8 MCG IVCONT (15:55)
[2025-01-15 17:24] LABS: Glucose, Whole Blood 163 mg/dL (60-115)
[2025-01-15 21:08] LABS: MANUAL DIFF FLAG NO
[2025-01-15 21:09] LABS: Hematocrit 29.4 % (37.0-47.0); Hemoglobin 10.0 g/dl (12.0-16.0); Imm Gran Abs Auto 0.15 X10*3/uL (0.00-0.03); Imm Gran Pct Auto 1.1 % (0.0-0.4); Lymphocytes Absolute Auto 2.1 X10*3/uL (1.2-4.9); Mean Corpuscular HGB Conc 34.0 g/dl (31.0-35.0); Mean Corpuscular Hemoglobin 28.1 pg (27.0-33.0); Mean Corpuscular Volume 82.6 fL (80.0-98.0); NRBC Abs Auto 0.000 X10*3/uL (0.0-0.012); NRBC Pct Auto 0.0 /100WBC (0.0-0.2); Platelet Count 309 X10*3/uL (160-400); Red Blood Count 3.56 X10*6/uL (4.20-5.50); White Blood Count 13.4 X10*3/uL (4.8-10.8)
[2025-01-15 21:33] LABS: Magnesium 2.2 mg/dL (1.6-2.6)
--- NOTE | 2025-01-15 21:39 | HE.PHANOTE ---
RE: vanco Level back at 14.5; changed back to 1500mg Q12H with predicted trough of 15.5, AUC of 534mg/L. Next level 01/16 @1999
[2025-01-15 23:29] LABS: Glucose, Whole Blood 142 mg/dL (60-115)
[2025-01-16] VITALS (45 sets, daily range): BP systolic 84–149; BP diastolic 45–76; PULSE 57–94; RESP 13–124; TEMP 34.9–37.7; O2SAT 91–99; BMI 39.3
--- NOTE | 2025-01-16 | EMG_ITS ---
Please see the attached neurophysiology report MTDD
[2025-01-16] MEDS: Albuterol Sulfate (0.083%) 2.5 MG/3 ML VIAL.NEB INHALE (00:05)
--- NOTE | 2025-01-16 00:06 | PC.NURSE ---
pt desating to 86% on vent recieivng 21% 02, RN to bedside attempt to suction and give mouth care with minimal effect sats dropped again to 86%. RT lavaged pt x2 with minimal effect, PA to bedside sats down to 84% PA increased 02 to 40%, new order from breahting treatment and 0.5 dilaudid. Admin as ordered with improvement. plan of care continues
[2025-01-16 04:55] LABS: VBG HCO3 32 mmol/L (22-26); VBG O2 % Saturation 63.0 %; Venous Blood Gas Refer to POC result
[2025-01-16] MEDS: Albuterol/Iprat 2.5/0.5MG 3 ML AMPUL.NEB INHALE ×3 (05:03→17:36)
[2025-01-16 05:30] LABS: MANUAL DIFF FLAG NO
[2025-01-16 05:34] LABS: Hematocrit 29.7 % (37.0-47.0); Hemoglobin 9.6 g/dl (12.0-16.0); Imm Gran Abs Auto 0.19 X10*3/uL (0.00-0.03); Imm Gran Pct Auto 1.2 % (0.0-0.4); Lymphocytes Absolute Auto 3.6 X10*3/uL (1.2-4.9); Mean Corpuscular HGB Conc 32.3 g/dl (31.0-35.0); Mean Corpuscular Hemoglobin 27.2 pg (27.0-33.0); Mean Corpuscular Volume 84.1 fL (80.0-98.0); NRBC Abs Auto 0.000 X10*3/uL (0.0-0.012); NRBC Pct Auto 0.0 /100WBC (0.0-0.2); Platelet Count 337 X10*3/uL (160-400); Red Blood Count 3.53 X10*6/uL (4.20-5.50); White Blood Count 15.9 X10*3/uL (4.8-10.8)
[2025-01-16 05:51] LABS: Alanine Aminotransferase 21 U/L (0-31); Albumin Level 3.2 g/dL (3.5-5.0); Alkaline Phosphatase 62 U/L (39-117); Anion Gap 12 (12-20); Aspartate Amino Transferase 20 U/L (5-31); Blood Urea Nitrogen 20 mg/dL (9-16); Calcium 8.1 mg/dL (8.4-10.2); Carbon Dioxide 28 mmol/L (22-29); Chloride 109 mmol/L (96-108); Creatinine Clr Calc Pharmacy 200.5; Estimated Glomerular Filt Rate > 60; Magnesium 2.2 mg/dL (1.6-2.6); Potassium 4.0 mmol/L (3.3-5.1); Sodium 145 mmol/L (135-145); Total Protein 5.8 g/dL (6.5-8.0)
[2025-01-16] MEDS: 0.9 % Sodium Chloride Flush 3 ML SYRINGE IVFLUSH ×3 (08:03→23:54)
[2025-01-16] MEDS: Chlorhexidine Gluc Oral Rinse 15 ML MOUTHWASH BUCCAL ×3 (08:09→21:10)
--- NOTE | 2025-01-16 08:36 | P.PNCC_ITS ---
Subjective Subjective Date of Service: 01/16/25 Interval History: Continues to be on ventilator support this morning Critical Care Time (minutes): 35 Physical Exam 2 Vital Signs: Vital Signs: Last Vital Signs Temp 99.5 F 01/16/25 08:00 Pulse 72 01/16/25 08:00 Resp 16 01/16/25 08:00 BP 108/60 01/16/25 08:00 Pulse Ox 98 01/16/25 08:00 O2 Del Method Mechanical Ventil ation 01/16/25 08:00 O2 Flow Rate 21 01/13/25 18:00 FiO2 30 01/16/25 08:02 BMI result Body Mass Index 39.3 General: Morbidly obese lady acute distress, ill appearing and tired appearing Nutritional Appearance: well nourished and morbidly obese Eyes: appearance normal, both eyes and all related structures; Alignment and Position: alignment normal and position normal Neck: No lymphadenopathy, no thyromegaly Resp: bilateral air entry equal, occasional added sounds present Cardio: Regular rate, regular rhythm; Heart sounds: S1 normal heart sound present and S2 normal heart sound present GI: soft, nontender, no guarding, no hepatosplenomegaly : bladder normal to inspection, bladder normal to palpation, no renal angle tenderness Skin: no rashes or lesions noted and elasticity normal Neuro: oriented to person, oriented to place, oriented to time and moves all extremities Objective Data Labs 01/16/25 04:52 01/16/25 04:52 Labs: Laboratory Results - last 24 hr 01/15/25 01/15/25 01/15/25 11:20 17:17 20:53 WBC 13.4 H RBC 3.56 L Hgb 10.0 L Hct 29.4 L MCV 82.6 MCH 28.1 MCHC 34.0 RDW 15.0 Plt Count 309 MPV 8.7 L Immature Gran % (Auto) 1.1 H Neut % (Auto) 76.4 H Lymph % (Auto) 15.4 L [place] % (Auto) 6.9 Eos % (Auto) 0.1 Baso % (Auto) 0.1 Lymph # (Auto) 2.1 [place] # (Auto) 0.9 Eos # (Auto) 0.0 Baso # (Auto) 0.0 Abs Immat Gran (auto) 0.15 H Absolute Neuts (auto) 10.2 H Absolute Nucleated RBC 0.000 Nucleated RBC % (auto) 0.0 VBG pH VBG pCO2 VBG pO2 VBG HCO3 VBG O2 Saturation VBG Base Excess Sodium Potassium Chloride Carbon Dioxide Anion Gap BUN Creatinine Estim Creat Clear Calc Estimated GFR POC Glucose 204 H 163 H Random Glucose Calcium Phosphorus 3.0 Magnesium 2.2 Total Bilirubin AST ALT Alkaline Phosphatase Total Protein Albumin Random Vancomycin 14.5 L 01/15/25 01/16/25 01/16/25 23:24 04:50 04:52 WBC 15.9 H RBC 3.53 L Hgb 9.6 L Hct 29.7 L MCV 84.1 MCH 27.2 MCHC 32.3 RDW 15.2 Plt Count 337 MPV 9.2 L Immature Gran % (Auto) 1.2 H Neut % (Auto) 68.2 Lymph % (Auto) 22.4 [place] % (Auto) 7.2 Eos % (Auto) 0.8 Baso % (Auto) 0.2 Lymph # (Auto) 3.6 [place] # (Auto) 1.1 Eos # (Auto) 0.1 Baso # (Auto) 0.0 Abs Immat Gran (auto) 0.19 H Absolute Neuts (auto) 10.9 H Absolute Nucleated RBC 0.000 Nucleated RBC % (auto) 0.0 VBG pH 7.44 H VBG pCO2 46 VBG pO2 44 VBG HCO3 32 H VBG O2 Saturation 63.0 VBG Base Excess 7.2 Sodium 145 Potassium 4.0 Chloride 109 H Carbon Dioxide 28 Anion Gap 12 BUN 20 H Creatinine 0.41 L Estim Creat Clear Calc 200.5 Estimated GFR > 60 POC Glucose 142 H Random Glucose 151 H Calcium 8.1 L Phosphorus 3.4 Magnesium 2.2 Total Bilirubin 0.2 AST 20 ALT 21 Alkaline Phosphatase 62 Total Protein 5.8 L Albumin 3.2 L Random Vancomycin Microbiology Microbiology Results: Microbiology 01/09/25 06:28 Blood - Venous Blood Culture - Final No growth after 5 days. 01/09/25 06:28 Blood - Venous Blood Culture - Final No growth after 5 days. 01/11/25 22:38 Blood - Venous Blood Culture - Preliminary No growth after 48 hours. 01/11/25 22:38 Blood - Venous Blood Culture - Preliminary No growth after 48 hours. 01/11/25 22:19 Sputum - Suctioned Gram Stain - Final 01/11/25 22:19 Sputum - Suctioned Sputum Culture - Final 01/06/25 23:32 Blood - Venous Blood Culture - Final No growth after 5 days. 01/06/25 23:32 Blood - Venous Blood Culture - Final No growth after 5 days. Progress Note: A&P Assessment and plan (1) Hypothyroidism: Status: Acute (2) Acute and chronic respiratory failure with hypercapnia: Status: Acute (3) Pulmonary aspiration: Status: Acute (4) Morbid obesity with BMI of 45.0-49.9, adult: Status: Acute Plan Neuro: Acute encephalopathy possibly due to metabolic encephalopathy Precedex stopped due bradycardia yesterday; currently on no sedation. Close neurological status monitoring in the ICU every hour Planned for EMG today to rule out myasthenia, on empiric solumedrol 60mg daily. Cardiogenic shock: secondary to positive pressure on levophed 0.08, titrate to keep MAP above 65mmHG Respiratory: Acute hypoxemic respiratory failure due to combination of obesity hypoventilation syndrome along with possible neurological disorders leading to poor respiratory efforts Currently on ventilator support On PRVC mode FiO2: 30%, PEEP 5, TV 350, RR 16; we will place the patient back on pressor support trials this morning. Peak pressures and plateau pressures are under the curve Ventilator management bundle with head end elevation, aspiration precaution, chlorhexidine mouthwash, daily awakening trials, daily spontaneous breathing trials GI: on tube feeds Renal: hypophosphatemia- will replace as per protocol We will closely monitor I's and O's Avoid nephrotoxic medications Heme: Chronic anemia, closely monitor H&H, transfuse for hemoglobin less than 7 grams/deciliter Endocrine: Blood sugars under control Sliding scale insulin as needed hypothyroidism: on levothyroxine 88mcg daily. Infectious disease: panculture negative so far on empiric vancomycin and Zosyn will get MRSA nares if negative will discontinue vancomycin Musculoskeletal: Decubitus ulcer prevention protocol Lines: peripheral Prophylaxis: Lovenox, pantoprazole Quality Stroke Does the patient have a stroke diagnosis?: No VTE Prior VTE?: No VTE Risk Level:: Medical - moderate - high VTE Device Contraindication: Treatment Not Indicated VTE Drug Contraindication: N/A - Med Ordered
[2025-01-16 11:22] LABS: Glucose, Whole Blood 218 mg/dL (60-115)
--- NOTE | 2025-01-16 11:38 | PC.RT ---
switched to PSV per MD request. currently on max pressure support of 20. continue psv to maintain Vt >200.
[2025-01-16 13:13] LABS: MRSA Nasal PCR NEGATIVE (Negative); SA Nasal PCR NEGATIVE (Negative)
--- NOTE | 2025-01-16 13:58 | PC.NURSE ---
Assumed care @ 0700? Neuro: Intubated, off sedation per AUG, opens eyes spontaneously, tracks the speaker, follows simple command, moves upper extremities weakly. Utilizing a clip board for communication.? Resp: Vent. support . Tolerating? PSV Settings since 11:40am Cardiac: Sinus Rhytam/ Bradicardia on tele, Levophed gtt per AUG, MAP goal >65. GI: LBM 01/16, FMD in place, +bowel sounds, OGT in place, tolerating tube feeds w/o signs of intolerance, POC Q6hr, on sliding scale insulin per AUG.? : Langley in place, patent /draining. Skin: ?Impaired skin integrity - see skin assessment (repositioning maintained)? Temp: low grade temp? Infectious: IV antibiotics? Lines: TLC R IJ, peripheral IVs.
--- NOTE | 2025-01-16 14:09 | PC.NURSE ---
Assume care @ 0700 Neuro/Resp/Cardiac: Oriented, drowsy and anxious precedex paused per AUG,? following commands. On supplemental 02, pt coughed while drinking juice during breakfast, Sp02 dropped to low 80?s, with increased 02 requirements, Now back to 3L NC,? Rhonchurous BL.? Sinus Tachycardia on tele. GI/: LBM 724, +bowel sounds, Speech therapist following, NPO, POC Q 6HR, on sliding scale insulin per AUG. External catheter in place? Skin: bruising to right upper arm, blanchable redness to buttock (repositioning maintained) (foam DGS applied) Temp: Afebrile? Infectious: IV abx? Lines: peripheral IVs. Complaining of pain in the right upper arm, toradol IVP given per AUG
--- NOTE | 2025-01-16 15:16 | MHC.CM.PN ---
Pt continues on ventilatory support: plan for the day includes PSV trials and EMG by neurology. CM to follow.
[2025-01-16 17:23] LABS: Glucose, Whole Blood 145 mg/dL (60-115)
[2025-01-17] VITALS (45 sets, daily range): BP systolic 90–135; BP diastolic 43–74; PULSE 55–114; RESP 16–29; TEMP 34.8–38.2; O2SAT 88–97; BMI 40.8
[2025-01-17] MEDS: Albuterol/Iprat 2.5/0.5MG 3 ML AMPUL.NEB INHALE ×5 (00:13→23:48)
[2025-01-17 00:42] LABS: Glucose, Whole Blood 149 mg/dL (60-115)
--- NOTE | 2025-01-17 04:51 | PC.NURSE ---
CARE ASSUMED 7PM..PATIENT REMAINS INTUBATED..HAD BEEN OFF SEDATION SINCE 01/15/25....AWAKE..NODDED YES/NO TO QUESTIONS..MOVING ARMS SPONTANEOUSLY AND TO COMMAND..PATIENT PREVIOUSLY PLACED BACK IN BILATERAL SOFT WRIST RESTRAINTS 6:30PM FOR ATTEMPTS TO GRAB AT ETT...RESTLESS AND ANXIOUS..BANGING HANDS AGAINST SIDE RAILS..NODDED YES TO THROAT PAIN FROM ETT..MEDICATED WITH PRN DILAUDID FOR PAIN AND VENT DYSYNCHRONY WITH TRANSIENT EFFECT..PROVIDER PRESENT..RESTARTED PROPOFOL DRIP PER AUG..LEVOPHED DRIP PER AUG....IMPROVED VENT SYNCHRONY WITH PROPOFOL INFUSION...AROUSES TO VERBAL COMMAND AND NODS YES/NO TO SIMPLE QUESTIONS...OG-TUBE FEEDS TOLERATED AT 40 CC/HR..RECTAL TUBE WITH SCANT BROWN DRAINAGE..COCCYX REDDENED BUT BLANCHABLE..BARRIER CREAM IN PLACE..SCABBED AREA TO NOSE FROM PREVIOUS BIPAP THERAPY PER SHIFT REPORT...NSR/S.BRADYCARDIA..HR 54-58 ASLEEP..HR 60'S-80'S AWAKE
[2025-01-17 05:36] LABS: VBG HCO3 32 mmol/L (22-26); VBG O2 % Saturation 73.0 %
[2025-01-17 05:37] LABS: Venous Blood Gas Refer to POC result
[2025-01-17 05:51] LABS: MANUAL DIFF FLAG NO
[2025-01-17 06:01] LABS: Hematocrit 27.8 % (37.0-47.0); Hemoglobin 9.2 g/dl (12.0-16.0); Imm Gran Abs Auto 0.21 X10*3/uL (0.00-0.03); Imm Gran Pct Auto 1.2 % (0.0-0.4); Lymphocytes Absolute Auto 3.3 X10*3/uL (1.2-4.9); Mean Corpuscular HGB Conc 33.1 g/dl (31.0-35.0); Mean Corpuscular Hemoglobin 27.8 pg (27.0-33.0); Mean Corpuscular Volume 84.0 fL (80.0-98.0); NRBC Abs Auto 0.000 X10*3/uL (0.0-0.012); NRBC Pct Auto 0.0 /100WBC (0.0-0.2); Platelet Count 448 X10*3/uL (160-400); Red Blood Count 3.31 X10*6/uL (4.20-5.50); White Blood Count 17.6 X10*3/uL (4.8-10.8)
[2025-01-17 06:05] LABS: Glucose, Whole Blood 181 mg/dL (60-115)
[2025-01-17 06:15] LABS: Alanine Aminotransferase 22 U/L (0-31); Albumin Level 3.3 g/dL (3.5-5.0); Alkaline Phosphatase 71 U/L (39-117); Anion Gap 14 (12-20); Aspartate Amino Transferase 27 U/L (5-31); Blood Urea Nitrogen 18 mg/dL (9-16); Calcium 8.3 mg/dL (8.4-10.2); Carbon Dioxide 28 mmol/L (22-29); Chloride 105 mmol/L (96-108); Creatinine Clr Calc Pharmacy 210.7; Estimated Glomerular Filt Rate > 60; Magnesium 2.1 mg/dL (1.6-2.6); Potassium 3.9 mmol/L (3.3-5.1); Sodium 143 mmol/L (135-145); Total Protein 5.8 g/dL (6.5-8.0)
[2025-01-17] MEDS: 0.9 % Sodium Chloride Flush 3 ML SYRINGE IVFLUSH ×3 (08:12→23:09)
[2025-01-17] MEDS: Chlorhexidine Gluc Oral Rinse 15 ML MOUTHWASH BUCCAL ×3 (08:12→20:16)
--- NOTE | 2025-01-17 08:37 | P.PNCC_ITS ---
Subjective Subjective Date of Service: 01/17/25 Interval History: On ventilator support this morning Did tolerate pressor support with very high support yesterday Overnight became agitated so started on propofol Critical Care Time (minutes): 35 Physical Exam 2 Vital Signs: Vital Signs: Last Vital Signs Temp 99.5 F 01/17/25 08:00 Pulse 63 01/17/25 08:00 Resp 18 01/17/25 08:00 BP 98/49 L 01/17/25 08:00 Pulse Ox 95 01/17/25 08:00 O2 Del Method Mechanical Ventil ation 01/17/25 08:00 O2 Flow Rate 21 01/13/25 18:00 FiO2 30 01/17/25 08:00 BMI result Body Mass Index 40.8 General: Middle-aged lady in acute distress, ill appearing and tired appearing Nutritional Appearance: well nourished and morbidly obese Eyes: appearance normal, both eyes and all related structures; Alignment and Position: alignment normal and position normal Neck: No lymphadenopathy, no thyromegaly Resp: bilateral air entry equal, bilateral crackles heard Cardio: Regular rate, regular rhythm; Heart sounds: S1 normal heart sound present and S2 normal heart sound present GI: soft, nontender, no guarding, no hepatosplenomegaly : bladder normal to inspection, bladder normal to palpation, no renal angle tenderness Skin: no rashes or lesions noted and elasticity normal Neuro: oriented to person, oriented to place, oriented to time and moves all extremities when off sedation Objective Data Labs 01/17/25 05:30 01/17/25 05:30 Labs: Laboratory Results - last 24 hr 01/16/25 01/16/25 01/16/25 11:14 11:28 17:18 WBC RBC Hgb Hct MCV MCH MCHC RDW Plt Count MPV Immature Gran % (Auto) Neut % (Auto) Lymph % (Auto) [place] % (Auto) Eos % (Auto) Baso % (Auto) Lymph # (Auto) [place] # (Auto) Eos # (Auto) Baso # (Auto) Abs Immat Gran (auto) Absolute Neuts (auto) Absolute Nucleated RBC Nucleated RBC % (auto) VBG pH VBG pCO2 VBG pO2 VBG HCO3 VBG O2 Saturation VBG Base Excess Sodium Potassium Chloride Carbon Dioxide Anion Gap BUN Creatinine Estim Creat Clear Calc Estimated GFR POC Glucose 218 H 145 H Random Glucose Calcium Phosphorus Magnesium Total Bilirubin AST ALT Alkaline Phosphatase Total Protein Albumin Nasal Screen MRSA (PCR) NEGATIVE Nasal S. aureus Screen NEGATIVE Nasal MRSA/S.aureus Interp SEE NOTE Vancomycin Trough 01/16/25 01/17/25 01/17/25 20:01 00:22 05:30 WBC 17.6 H RBC 3.31 L Hgb 9.2 L Hct 27.8 L MCV 84.0 MCH 27.8 MCHC 33.1 RDW 15.3 Plt Count 448 H D MPV 9.1 L Immature Gran % (Auto) 1.2 H Neut % (Auto) 70.8 Lymph % (Auto) 18.9 L [place] % (Auto) 7.0 Eos % (Auto) 2.0 Baso % (Auto) 0.1 Lymph # (Auto) 3.3 [place] # (Auto) 1.2 Eos # (Auto) 0.4 Baso # (Auto) 0.0 Abs Immat Gran (auto) 0.21 H Absolute Neuts (auto) 12.5 H Absolute Nucleated RBC 0.000 Nucleated RBC % (auto) 0.0 VBG pH VBG pCO2 VBG pO2 VBG HCO3 VBG O2 Saturation VBG Base Excess Sodium 143 Potassium 3.9 Chloride 105 Carbon Dioxide 28 Anion Gap 14 BUN 18 H Creatinine 0.40 L Estim Creat Clear Calc 210.7 Estimated GFR > 60 POC Glucose 149 H Random Glucose 175 H Calcium 8.3 L Phosphorus 3.5 Magnesium 2.1 Total Bilirubin 0.3 AST 27 ALT 22 Alkaline Phosphatase 71 Total Protein 5.8 L Albumin 3.3 L Nasal Screen MRSA (PCR) Nasal S. aureus Screen Nasal MRSA/S.aureus Interp Vancomycin Trough 15.1 01/17/25 01/17/25 05:31 06:01 WBC RBC Hgb Hct MCV MCH MCHC RDW Plt Count MPV Immature Gran % (Auto) Neut % (Auto) Lymph % (Auto) [place] % (Auto) Eos % (Auto) Baso % (Auto) Lymph # (Auto) [place] # (Auto) Eos # (Auto) Baso # (Auto) Abs Immat Gran (auto) Absolute Neuts (auto) Absolute Nucleated RBC Nucleated RBC % (auto) VBG pH 7.48 H VBG pCO2 43 VBG pO2 48 VBG HCO3 32 H VBG O2 Saturation 73.0 VBG Base Excess 8.2 Sodium Potassium Chloride Carbon Dioxide Anion Gap BUN Creatinine Estim Creat Clear Calc Estimated GFR POC Glucose 181 H Random Glucose Calcium Phosphorus Magnesium Total Bilirubin AST ALT Alkaline Phosphatase Total Protein Albumin Nasal Screen MRSA (PCR) Nasal S. aureus Screen Nasal MRSA/S.aureus Interp Vancomycin Trough Microbiology Microbiology Results: Microbiology 01/11/25 22:38 Blood - Venous Blood Culture - Final No growth after 5 days. 01/11/25 22:38 Blood - Venous Blood Culture - Final No growth after 5 days. 01/09/25 06:28 Blood - Venous Blood Culture - Final No growth after 5 days. 01/09/25 06:28 Blood - Venous Blood Culture - Final No growth after 5 days. 01/11/25 22:19 Sputum - Suctioned Gram Stain - Final 01/11/25 22:19 Sputum - Suctioned Sputum Culture - Final 01/06/25 23:32 Blood - Venous Blood Culture - Final No growth after 5 days. 01/06/25 23:32 Blood - Venous Blood Culture - Final No growth after 5 days. Progress Note: A&P Assessment and plan (1) Hypothyroidism: Status: Acute (2) Acute and chronic respiratory failure with hypercapnia: Status: Acute (3) Obesity hypoventilation syndrome: Status: Acute Plan Neuro: Acute encephalopathy possibly due to metabolic encephalopathy Precedex stopped due bradycardia; started on propofol overnight- stopped at 9AM Close neurological status monitoring in the ICU every hour EMG ruled out any acute or subacute neuropathies, on empiric solumedrol 60mg daily. Cardiogenic shock: secondary to positive pressure on levophed 0.1 increase in dose when compared to yesterday 0.08, titrate to keep MAP above 65mmHG Respiratory: Acute hypoxemic respiratory failure due to combination of obesity hypoventilation syndrome along with possible neurological disorders leading to poor respiratory efforts Currently on ventilator support, first intubation on 01/09/2025 extuabted the next day and reintubation on 01/11/2025 On PRVC mode FiO2: 30%, PEEP 5, TV 350, RR 16; tolerated pressor support for few hours yesterday but with excessive support. We will place her back on pressure support trials today Peak pressures and plateau pressures are under the curve Ventilator management bundle with head end elevation, aspiration precaution, chlorhexidine mouthwash, daily awakening trials, daily spontaneous breathing trials GI: on tube feeds Renal: hypophosphatemia- will replace as per protocol We will closely monitor I's and O's Avoid nephrotoxic medications Heme: Chronic anemia, closely monitor H&H, transfuse for hemoglobin less than 7 grams/deciliter Endocrine: Blood sugars under control Sliding scale insulin as needed hypothyroidism: on levothyroxine 88mcg daily. Infectious disease: panculture negative so far on empiric vancomycin and Zosyn MRSA nares negative; will discontinue vancomycin Musculoskeletal: Decubitus ulcer prevention protocol Lines: peripheral Prophylaxis: Lovenox, pantoprazole Quality Stroke Does the patient have a stroke diagnosis?: No VTE Prior VTE?: No VTE Risk Level:: Medical - moderate - high VTE Device Contraindication: Treatment Not Indicated VTE Drug Contraindication: N/A - Med Ordered
--- NOTE | 2025-01-17 11:28 | MHC.CLN ---
F/U PT REMAINS INTUBATED AND SEDATED DISCUSSED AT ROUNDS WITH CONTINUE GLUCERNA 1.2 AT MAX GOAL RATE 40ML/HR WITH 300ML FREE WATER FLUSHES Q 8 HOURS TO PROVIDE 1152KCALS (1757KCALS WITH SEDATION; 25KCALS/KG), 58G PROTEIN, 1673ML TOTAL WATER FROM FORMULA AND FLUSHES (24ML/KG) MONITOR TOLERANCE AND LYTES
--- NOTE | 2025-01-17 15:29 | MHC.CM.PN ---
PT REMAINS IN ICU ON PRESSOR AND VENTILATORY SUPPORT. [employer] CALLED AND CLINICAL UPDATED PROVIDED. CM WILL CONTINUE TO FOLLOW FOR DC PLAN.
[2025-01-17 18:14] LABS: Glucose, Whole Blood 134 mg/dL (60-115)
--- NOTE | 2025-01-17 18:36 | PC.NURSE ---
Assumed care at 0700- Tolerated PSV settings for most of day. No secretions via ETT. VAP precautions. Propofol and Levophed off. Patient alert and appropriate. Able to move arms but not legs. Denies any pain. Sinus rhythm, Sinus tachycardia. Tube feeds infusing at goal. Langley draining yellow urine, good output. Receiving IV solumedrol. IV abx. TLC patent. Bedrest turned and repositioned. See flowsheet for further assessment documentation.
[2025-01-18] VITALS (39 sets, daily range): BP systolic 90–158; BP diastolic 45–89; PULSE 65–117; RESP 16–31; TEMP 34.7–38; O2SAT 91–97; BMI 38.5
[2025-01-18 00:12] LABS: Glucose, Whole Blood 112 mg/dL (60-115)
[2025-01-18 04:24] LABS: VBG HCO3 33 mmol/L (22-26); VBG O2 % Saturation 79.0 %
[2025-01-18 04:37] LABS: Venous Blood Gas Refer to POC result
[2025-01-18 04:40] LABS: MANUAL DIFF FLAG NO
[2025-01-18 04:44] LABS: Hematocrit 27.9 % (37.0-47.0); Hemoglobin 9.4 g/dl (12.0-16.0); Imm Gran Abs Auto 0.15 X10*3/uL (0.00-0.03); Imm Gran Pct Auto 1.2 % (0.0-0.4); Lymphocytes Absolute Auto 2.2 X10*3/uL (1.2-4.9); Mean Corpuscular HGB Conc 33.7 g/dl (31.0-35.0); Mean Corpuscular Hemoglobin 27.9 pg (27.0-33.0); Mean Corpuscular Volume 82.8 fL (80.0-98.0); NRBC Abs Auto 0.000 X10*3/uL (0.0-0.012); NRBC Pct Auto 0.0 /100WBC (0.0-0.2); Platelet Count 322 X10*3/uL (160-400); Red Blood Count 3.37 X10*6/uL (4.20-5.50); White Blood Count 12.8 X10*3/uL (4.8-10.8)
[2025-01-18 04:59] LABS: Alanine Aminotransferase 29 U/L (0-31); Albumin Level 3.4 g/dL (3.5-5.0); Alkaline Phosphatase 73 U/L (39-117); Anion Gap 15 (12-20); Aspartate Amino Transferase 26 U/L (5-31); Blood Urea Nitrogen 19 mg/dL (9-16); Calcium 8.5 mg/dL (8.4-10.2); Carbon Dioxide 28 mmol/L (22-29); Chloride 104 mmol/L (96-108); Creatinine Clr Calc Pharmacy 205.6; Estimated Glomerular Filt Rate > 60; Magnesium 2.2 mg/dL (1.6-2.6); Potassium 3.8 mmol/L (3.3-5.1); Sodium 143 mmol/L (135-145); Total Protein 6.2 g/dL (6.5-8.0)
[2025-01-18 05:36] LABS: Glucose, Whole Blood 142 mg/dL (60-115)
[2025-01-18] MEDS: Albuterol/Iprat 2.5/0.5MG 3 ML AMPUL.NEB INHALE ×4 (05:59→23:28)
--- NOTE | 2025-01-18 07:30 | PC.NURSE ---
Critical Care Nursing Note? Assumed care of the patient at 1900. Patient remained on ventilator support, off sedation.? Levophed was restarted at 2345, see eMAR for titrations.? Tube feeding infusing at goal of 40ml/hr.? Patient with headache at 0200, tylenol administered.? Patient states she was feeling rectal pressure, fecal management system removed, patient tolerated. Report given to oncoming shift.
--- NOTE | 2025-01-18 08:38 | P.PNCC_ITS ---
Subjective Subjective Date of Service: 01/18/25 Interval History: Remained on pressure support since yesterday, doing okay. Off sedation Critical Care Time (minutes): 35 Physical Exam 2 Exam: Exam: General: Middle-aged lady in mild acute distress lying in the bed currently to the ventilator Nutritional Appearance: well nourished and overweight Eyes: appearance normal, both eyes and all related structures; Alignment and Position: alignment normal and position normal Neck: No lymphadenopathy, no thyromegaly Resp: bilateral air entry equal, occasional added sounds present Cardio: Regular rate, regular rhythm; Heart sounds: S1 normal heart sound present and S2 normal heart sound present GI: soft, nontender, no guarding, no hepatosplenomegaly : bladder normal to inspection, bladder normal to palpation, no renal angle tenderness Skin: no rashes or lesions noted and elasticity normal Neuro: oriented to person, oriented to place, oriented to time, follows commands Vital Signs: Vital Signs: Last Vital Signs Temp 99.5 F 01/18/25 08:00 Pulse 65 01/18/25 08:00 Resp 19 01/18/25 08:00 BP 113/58 L 01/18/25 08:00 Pulse Ox 91 L 01/18/25 08:00 O2 Del Method Mechanical Ventil ation 01/18/25 08:00 O2 Flow Rate 21 01/13/25 18:00 FiO2 25 01/18/25 08:00 BMI result Body Mass Index 38.5 Objective Data Labs 01/18/25 04:05 01/18/25 04:05 Labs: Laboratory Results - last 24 hr 01/17/25 01/18/25 01/18/25 18:10 00:08 04:05 WBC 12.8 H RBC 3.37 L Hgb 9.4 L Hct 27.9 L MCV 82.8 MCH 27.9 MCHC 33.7 RDW 15.5 Plt Count 322 D MPV 8.8 L Immature Gran % (Auto) 1.2 H Neut % (Auto) 73.0 Lymph % (Auto) 17.1 L [place] % (Auto) 6.6 Eos % (Auto) 2.0 Baso % (Auto) 0.1 Lymph # (Auto) 2.2 [place] # (Auto) 0.8 Eos # (Auto) 0.3 Baso # (Auto) 0.0 Abs Immat Gran (auto) 0.15 H Absolute Neuts (auto) 9.4 H Absolute Nucleated RBC 0.000 Nucleated RBC % (auto) 0.0 VBG pH VBG pCO2 VBG pO2 VBG HCO3 VBG O2 Saturation VBG Base Excess Sodium 143 Potassium 3.8 Chloride 104 Carbon Dioxide 28 Anion Gap 15 BUN 19 H Creatinine 0.41 L Estim Creat Clear Calc 205.6 Estimated GFR > 60 POC Glucose 134 H 112 Random Glucose 151 H Calcium 8.5 Phosphorus 3.5 Magnesium 2.2 Total Bilirubin 0.3 AST 26 ALT 29 Alkaline Phosphatase 73 Total Protein 6.2 L Albumin 3.4 L 01/18/25 01/18/25 04:20 05:33 WBC RBC Hgb Hct MCV MCH MCHC RDW Plt Count MPV Immature Gran % (Auto) Neut % (Auto) Lymph % (Auto) [place] % (Auto) Eos % (Auto) Baso % (Auto) Lymph # (Auto) [place] # (Auto) Eos # (Auto) Baso # (Auto) Abs Immat Gran (auto) Absolute Neuts (auto) Absolute Nucleated RBC Nucleated RBC % (auto) VBG pH 7.50 H VBG pCO2 42 VBG pO2 53 VBG HCO3 33 H VBG O2 Saturation 79.0 VBG Base Excess 9.9 Sodium Potassium Chloride Carbon Dioxide Anion Gap BUN Creatinine Estim Creat Clear Calc Estimated GFR POC Glucose 142 H Random Glucose Calcium Phosphorus Magnesium Total Bilirubin AST ALT Alkaline Phosphatase Total Protein Albumin Microbiology Microbiology Results: Microbiology 01/11/25 22:38 Blood - Venous Blood Culture - Final No growth after 5 days. 01/11/25 22:38 Blood - Venous Blood Culture - Final No growth after 5 days. 01/09/25 06:28 Blood - Venous Blood Culture - Final No growth after 5 days. 01/09/25 06:28 Blood - Venous Blood Culture - Final No growth after 5 days. 01/11/25 22:19 Sputum - Suctioned Gram Stain - Final 01/11/25 22:19 Sputum - Suctioned Sputum Culture - Final 01/06/25 23:32 Blood - Venous Blood Culture - Final No growth after 5 days. 01/06/25 23:32 Blood - Venous Blood Culture - Final No growth after 5 days. Progress Note: A&P Assessment and plan (1) Acute and chronic respiratory failure with hypercapnia: Status: Acute (2) Hypothyroidism: Status: Acute (3) Pneumonia: Status: Acute (4) Obesity hypoventilation syndrome: Status: Acute Plan Neuro: Acute encephalopathy possibly due to metabolic encephalopathy, improving following commands Precedex stopped due bradycardia; off sedation since yesterday morning Patient has history of a progressive neurological disorder for which she was undergoing evaluation. Apparently she developed weakness in her lower extremities that was progressive along with incontinence and was wheelchair- bound in October for which she was evaluated at [facility] and here. She underwent a MRI of the spine which did not show any acute abnormalities, initial blood workup were negative for, neuropathies. 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 EMG ruled out any acute or subacute neuropathies, possibly has a chronic neuropathy in the lower extremity; she is on empiric solumedrol 60mg q.8 hours with which we see some improvement in her respiratory efforts. Cardiogenic shock: secondary to positive pressure on levophed 0. increase in dose when compared to yesterday 0.08, titrate to keep MAP above 65mmHG Respiratory: Acute hypoxemic respiratory failure due to combination of obesity hypoventilation syndrome along with possible neurological disorders leading to poor respiratory efforts Currently on ventilator support, first intubation on 01/09/2025 extuabted the next day and reintubation on 01/11/2025 On PRVC mode FiO2: 30%, PEEP 5, TV 350, RR 16; tolerated pressor support for few hours yesterday but with excessive support. We will place her back on pressure support trials today Peak pressures and plateau pressures are under the curve Ventilator management bundle with head end elevation, aspiration precaution, chlorhexidine mouthwash, daily awakening trials, daily spontaneous breathing trials GI: on tube feeds Renal: We will closely monitor I's and O's Avoid nephrotoxic medications Heme: Chronic anemia, closely monitor H&H, transfuse for hemoglobin less than 7 grams/deciliter Endocrine: Blood sugars under control Sliding scale insulin as needed hypothyroidism: on levothyroxine 88mcg daily. Infectious disease: panculture negative so far on empiric vancomycin and Zosyn MRSA nares negative; vancomycin discontinued Musculoskeletal: Decubitus ulcer prevention protocol Lines: Right IJ TLC placed on 01/11/2025 Prophylaxis: Lovenox, famotidine Quality Stroke Does the patient have a stroke diagnosis?: No VTE Prior VTE?: No VTE Risk Level:: Medical - moderate - high VTE Device Contraindication: Treatment Not Indicated VTE Drug Contraindication: N/A - Med Ordered
[2025-01-18] MEDS: 0.9 % Sodium Chloride Flush 3 ML SYRINGE IVFLUSH ×3 (08:39→22:54)
[2025-01-18] MEDS: Chlorhexidine Gluc Oral Rinse 15 ML MOUTHWASH BUCCAL ×3 (08:39→20:54)
--- NOTE | 2025-01-18 11:11 | PC.NURSE ---
Addendum entered by Fiona Lewis RN 01/18/25 18:04: Langley removed @ 1803, Due to Void 01/19 @ 0003 Original Note: Assumed care @ 0700? Neuro: Intubated, off sedation per AUG, opens eyes spontaneously, tracks the speaker, follows simple command, moves upper extremities weakly. Utilizing a clip board for communication.? Resp: Vent. support . Tolerating? PSV Settings? Cardiac: Sinus Rhythm on tele, Levophed gtt per AUG, MAP goal >65. GI: LBM 01/17, +bowel sounds, OGT in place, tolerating tube feeds w/o signs of intolerance, POC Q6hr, on sliding scale insulin per AUG.? : Langley in place, patent /draining. Skin: ?Impaired skin integrity - see skin assessment (repositioning maintained) (foam DGS applied) Temp: low grade temp? Infectious: IV antibiotics? Lines: TLC R IJ, peripheral IVs.
[2025-01-18 11:30] LABS: Glucose, Whole Blood 224 mg/dL (60-115)
--- NOTE | 2025-01-18 13:35 | MHC.CM.PN ---
Pt continues on PSV vent support: EEG without acute findings - plan for today: decrease vent support and attempt extubation. D/C planning ongoing: pt has been referred to SNF as it is likely she will need STR. CM to follow
--- NOTE | 2025-01-18 15:36 | HO.SKINPHOTO ---
Location: Mons pubis / Vulva Category: Blister Location: Right heel Category: Question DTI Action: Repositioned / elevated limb to not have contact with tubing from caro/sequentials
[2025-01-18 15:59] LABS: Voltage-Gated Ca Ab Type P/Q <30 pmol/L (<30)
[2025-01-19] VITALS (36 sets, daily range): BP systolic 81–141; BP diastolic 40–96; PULSE 65–110; RESP 15–90; TEMP 34.6–37.3; O2SAT 91–97
[2025-01-19 00:05] LABS: Glucose, Whole Blood 161 mg/dL (60-115)
[2025-01-19 00:05] LABS: Glucose, Whole Blood 160 mg/dL (60-115)
[2025-01-19 04:38] LABS: Hematocrit 25.6 % (37.0-47.0); Hemoglobin 8.9 g/dl (12.0-16.0); Imm Gran Abs Auto 0.12 X10*3/uL (0.00-0.03); Imm Gran Pct Auto 1.2 % (0.0-0.4); Lymphocytes Absolute Auto 0.5 X10*3/uL (1.2-4.9); MANUAL DIFF FLAG SCAN; Mean Corpuscular HGB Conc 34.8 g/dl (31.0-35.0); Mean Corpuscular Hemoglobin 28.4 pg (27.0-33.0); Mean Corpuscular Volume 81.8 fL (80.0-98.0); NRBC Abs Auto 0.000 X10*3/uL (0.0-0.012); NRBC Pct Auto 0.0 /100WBC (0.0-0.2); Platelet Count 286 X10*3/uL (160-400); Red Blood Count 3.13 X10*6/uL (4.20-5.50); SCAN SMEAR FLAG 1; White Blood Count 10.0 X10*3/uL (4.8-10.8)
[2025-01-19 04:47] LABS: VBG HCO3 33 mmol/L (22-26); VBG O2 % Saturation 69.0 %
[2025-01-19 04:51] LABS: Venous Blood Gas Refer to POC result
[2025-01-19 04:52] LABS: Alanine Aminotransferase 33 U/L (0-31); Albumin Level 3.4 g/dL (3.5-5.0); Alkaline Phosphatase 65 U/L (39-117); Anion Gap 11 (12-20); Aspartate Amino Transferase 22 U/L (5-31); Blood Urea Nitrogen 18 mg/dL (9-16); Calcium 8.4 mg/dL (8.4-10.2); Carbon Dioxide 28 mmol/L (22-29); Chloride 104 mmol/L (96-108); Creatinine Clr Calc Pharmacy 226.5; Estimated Glomerular Filt Rate > 60; Magnesium 2.3 mg/dL (1.6-2.6); Potassium 4.3 mmol/L (3.3-5.1); Sodium 139 mmol/L (135-145); Total Protein 6.1 g/dL (6.5-8.0)
[2025-01-19] MEDS: Albuterol/Iprat 2.5/0.5MG 3 ML AMPUL.NEB INHALE ×4 (05:21→23:31)
--- NOTE | 2025-01-19 07:27 | PC.NURSE ---
Critical Care Nursing Note? Assumed care of the patient at 1900. Patient remained on ventilator support, off sedation. ? Tube feeding infusing at goal of 40ml/hr. Patient due to void at 0000; bladder scan was 281ml, no intervention at this time. AT 0400 bladder scan was 425ml, straight cath performed for 415ml, patient tolerated well (due to void at 1000). Report given to oncoming shift.
[2025-01-19] MEDS: Albumin Human 25 % 100 ML 133.33 ML IV ×2 (07:51→08:40)
[2025-01-19] MEDS: Chlorhexidine Gluc Oral Rinse 15 ML MOUTHWASH BUCCAL ×2 (07:51→14:05)
[2025-01-19] MEDS: 0.9 % Sodium Chloride Flush 3 ML SYRINGE IVFLUSH ×3 (07:54→23:15)
--- NOTE | 2025-01-19 08:49 | P.PNCC_ITS ---
Subjective Subjective Date of Service: 01/19/25 Interval History: On pressor support for the past 48 hours and doing okay on 02/11 Critical Care Time (minutes): 35 Physical Exam 2 Vital Signs: Vital Signs: Last Vital Signs Temp 99.2 F 01/19/25 08:00 Pulse 78 01/19/25 08:00 Resp 24 H 01/19/25 08:00 BP 107/58 L 01/19/25 08:00 Pulse Ox 91 L 01/19/25 08:00 O2 Del Method Mechanical Ventil ation 01/19/25 08:00 O2 Flow Rate 21 01/13/25 18:00 FiO2 30 01/19/25 08:00 BMI result Body Mass Index 38.5 General: Middle-aged lady in acute distress Nutritional Appearance: well nourished and overweight Eyes: appearance normal, both eyes and all related structures; Alignment and Position: alignment normal and position normal Neck: No lymphadenopathy, no thyromegaly Resp: bilateral air entry equal, occasional added sounds present Cardio: Regular rate, regular rhythm; Heart sounds: S1 normal heart sound present and S2 normal heart sound present GI: soft, nontender, no guarding, no hepatosplenomegaly : bladder normal to inspection, bladder normal to palpation, no renal angle tenderness Skin: no rashes or lesions noted and elasticity normal Neuro: Power in upper extremities normal, we can lower extremities, follows commands Objective Data Labs 01/19/25 04:30 01/19/25 04:30 Labs: Laboratory Results - last 24 hr 01/18/25 01/18/25 01/18/25 11:26 18:41 23:57 WBC RBC Hgb Hct MCV MCH MCHC RDW Plt Count MPV Immature Gran % (Auto) Neut % (Auto) Lymph % (Auto) [place] % (Auto) Eos % (Auto) Baso % (Auto) Lymph # (Auto) [place] # (Auto) Eos # (Auto) Baso # (Auto) Abs Immat Gran (auto) Absolute Neuts (auto) Absolute Nucleated RBC Nucleated RBC % (auto) Smear Tech's Comments VBG pH VBG pCO2 VBG pO2 VBG HCO3 VBG O2 Saturation VBG Base Excess Sodium Potassium Chloride Carbon Dioxide Anion Gap BUN Creatinine Estim Creat Clear Calc Estimated GFR POC Glucose 224 H 161 H 160 H Random Glucose Calcium Phosphorus Magnesium Total Bilirubin AST ALT Alkaline Phosphatase Total Protein Albumin 01/19/25 01/19/25 04:30 04:43 WBC 10.0 RBC 3.13 L Hgb 8.9 L Hct 25.6 L MCV 81.8 MCH 28.4 MCHC 34.8 RDW 15.2 Plt Count 286 MPV 8.8 L Immature Gran % (Auto) 1.2 H Neut % (Auto) 91.5 H Lymph % (Auto) 5.2 L [place] % (Auto) 2.0 Eos % (Auto) 0.0 Baso % (Auto) 0.1 Lymph # (Auto) 0.5 L [place] # (Auto) 0.2 Eos # (Auto) 0.0 Baso # (Auto) 0.0 Abs Immat Gran (auto) 0.12 H Absolute Neuts (auto) 9.2 H Absolute Nucleated RBC 0.000 Nucleated RBC % (auto) 0.0 Smear Tech's Comments VERIFIED VBG pH 7.53 H VBG pCO2 39 VBG pO2 44 VBG HCO3 33 H VBG O2 Saturation 69.0 VBG Base Excess 9.8 Sodium 139 Potassium 4.3 Chloride 104 Carbon Dioxide 28 Anion Gap 11 L BUN 18 H Creatinine 0.36 L Estim Creat Clear Calc 226.5 Estimated GFR > 60 POC Glucose Random Glucose 189 H Calcium 8.4 Phosphorus 3.1 Magnesium 2.3 Total Bilirubin 0.3 AST 22 ALT 33 H Alkaline Phosphatase 65 Total Protein 6.1 L Albumin 3.4 L Microbiology Microbiology Results: Microbiology 01/11/25 22:38 Blood - Venous Blood Culture - Final No growth after 5 days. 01/11/25 22:38 Blood - Venous Blood Culture - Final No growth after 5 days. 01/09/25 06:28 Blood - Venous Blood Culture - Final No growth after 5 days. 01/09/25 06:28 Blood - Venous Blood Culture - Final No growth after 5 days. 01/11/25 22:19 Sputum - Suctioned Gram Stain - Final 01/11/25 22:19 Sputum - Suctioned Sputum Culture - Final 01/06/25 23:32 Blood - Venous Blood Culture - Final No growth after 5 days. 01/06/25 23:32 Blood - Venous Blood Culture - Final No growth after 5 days. Progress Note: A&P Assessment and plan (1) Poor historian: Status: Acute (2) Acute and chronic respiratory failure with hypercapnia: Status: Acute (3) Pulmonary aspiration: Status: Acute Plan Neuro: Acute encephalopathy possibly due to metabolic encephalopathy, improving following commands Precedex stopped due bradycardia; off sedation for the past 2 days Patient has history of a progressive neurological disorder for which she was undergoing evaluation. Apparently she developed weakness in her lower extremities that was progressive along with incontinence and was wheelchair- bound in October for which she was evaluated at [facility] and here. She underwent a MRI of the spine which did not show any acute abnormalities, initial blood workup were negative for, neuropathies. 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 EMG ruled out any acute or subacute neuropathies, possibly has a chronic neuropathy in the lower extremity; she is on empiric solumedrol 60mg q.8 hours with which we see some improvement in her respiratory efforts. Cardiogenic shock: secondary to positive pressure, off levophed support this morning receiving albumin infusions Respiratory: Acute hypoxemic respiratory failure due to combination of obesity hypoventilation syndrome along with possible neurological disorders leading to poor respiratory efforts Currently on ventilator support, first intubation on 01/09/2025 extuabted the next day and reintubation on 01/11/2025 On pressor support 15/5 with FiO2: 30; tolerated pressor support for past 48 hours, we will extubate her to BiPAP. This extubation is a trial to see how she does as she is doing okay on pressor support for past 48 hours, if she needs re- intubation possibly she would need a tracheostomy. Peak pressures and plateau pressures are under the curve Ventilator management bundle with head end elevation, aspiration precaution, chlorhexidine mouthwash, daily awakening trials, daily spontaneous breathing trials GI: will stop tube feeds Renal: We will closely monitor I's and O's Avoid nephrotoxic medications Heme: Chronic anemia, closely monitor H&H, transfuse for hemoglobin less than 7 grams/deciliter Endocrine: Blood sugars under control Sliding scale insulin as needed hypothyroidism: on levothyroxine 88mcg daily. Infectious disease: panculture negative so far on empiric vancomycin and Zosyn MRSA nares negative; vancomycin discontinued Musculoskeletal: Decubitus ulcer prevention protocol Lines: Right IJ TLC placed on 01/11/2025 Prophylaxis: Lovenox, famotidine Quality Stroke Does the patient have a stroke diagnosis?: No VTE Prior VTE?: No VTE Risk Level:: Medical - moderate - high VTE Device Contraindication: Treatment Not Indicated VTE Drug Contraindication: N/A - Med Ordered
--- NOTE | 2025-01-19 10:51 | MHC.CLN ---
F/U PT REMAINS INTUBATED AND SEDATED DISCUSSED AT ROUNDS WITH MD; PLAN TO EXTUBATE TODAY CONTINUE GLUCERNA 1.2 AT MAX GOAL RATE 40ML/HR PROVIDES 1152KCALS (1757KCALS WITH SEDATION; 25KCALS/KG), 58G PROTEIN, 773ML FREE WATER FROM FORMULA MONITOR TOLERANCE AND LYTES IF DIET TO ADVANCE, RECOMMEND 1800DM DIET RD CAN BE REACHED VIA TIGER CONNECT DURING OFF HOURS
--- NOTE | 2025-01-19 11:11 | MHC.CM.PN ---
Pt is able to write responses and is following simple commands: Plan for today is to attempt extubation. If pt cannot manage her secretions or otherwise fails, a trach would need to be considered per MD. This information was relayed to pt's niece Juan who is assisting pt's HCP Samantha with medical information. Juan informed Samantha of the plan. Pt should be included in all medical discussions/decision making if she can demonstrate baseline cognition. No referrals have been made to LTAC for post trach care at this time: will await clinical progress/decisions
[2025-01-19] MEDS: SODIUM CHLORIDE 0.9% IV ×2 (12:03→23:11)
[2025-01-19] MEDS: ACYCLOVIR SODIUM IV ×2 (12:03→23:11)
[2025-01-19 12:46] LABS: Glucose, Whole Blood 170 mg/dL (60-115)
--- NOTE | 2025-01-19 13:49 | PC.NURSE ---
1200 bladder scan for >500. Straight cath completed for 475cc yellow urine - next bladder scan for 1800. Patient noticed to have multiple reddened raised fluid filled lesions to pubis - Dr Pagan notified and at bedside for exam. HSV lab ordered and pending. Acyclovir ordered. Contact precautions placed outside room. Handoff given to LOLLY Browne.
[2025-01-19 17:24] LABS: Glucose, Whole Blood 145 mg/dL (60-115)
--- NOTE | 2025-01-19 17:51 | PC.NURSE ---
Assumed care at 1200. Pt extubated at 1205, RT and MD at bedside. Oral suction provided. Pt placed on bipap 12/5 with fio2 of 30%. Pt tolerating well, able to communicate with gestures and writing. Pt voided at approx 1500. Purewick applied. At 1600, pt placed on HFNC 45L/35%. See MAR and assessments for further details.
[2025-01-19 23:48] LABS: Glucose, Whole Blood 115 mg/dL (60-115)
[2025-01-20] VITALS (31 sets, daily range): BP systolic 93–149; BP diastolic 46–102; PULSE 51–91; RESP 16–28; TEMP 36.3–37; O2SAT 24–100; BMI 38.4
[2025-01-20 04:51] LABS: VBG HCO3 31 mmol/L (22-26); VBG O2 % Saturation 96.0 %
[2025-01-20 04:54] LABS: Venous Blood Gas Refer to POC result
[2025-01-20 04:54] LABS: Glucose, Whole Blood 124 mg/dL (60-115)
[2025-01-20 04:58] LABS: Hematocrit 29.4 % (37.0-47.0); Hemoglobin 10.1 g/dl (12.0-16.0); Imm Gran Abs Auto 0.10 X10*3/uL (0.00-0.03); Imm Gran Pct Auto 0.9 % (0.0-0.4); Lymphocytes Absolute Auto 0.5 X10*3/uL (1.2-4.9); MANUAL DIFF FLAG SCAN; Mean Corpuscular HGB Conc 34.4 g/dl (31.0-35.0); Mean Corpuscular Hemoglobin 28.5 pg (27.0-33.0); Mean Corpuscular Volume 83.1 fL (80.0-98.0); NRBC Abs Auto 0.000 X10*3/uL (0.0-0.012); NRBC Pct Auto 0.0 /100WBC (0.0-0.2); Platelet Count 319 X10*3/uL (160-400); Red Blood Count 3.54 X10*6/uL (4.20-5.50); SCAN SMEAR FLAG 1; White Blood Count 11.4 X10*3/uL (4.8-10.8)
[2025-01-20] MEDS: Albuterol/Iprat 2.5/0.5MG 3 ML AMPUL.NEB INHALE ×4 (05:00→23:46)
[2025-01-20 05:08] LABS: Alanine Aminotransferase 51 U/L (0-31); Albumin Level 4.2 g/dL (3.5-5.0); Alkaline Phosphatase 67 U/L (39-117); Anion Gap 13 (12-20); Aspartate Amino Transferase 39 U/L (5-31); Blood Urea Nitrogen 18 mg/dL (9-16); Calcium 9.1 mg/dL (8.4-10.2); Carbon Dioxide 27 mmol/L (22-29); Chloride 108 mmol/L (96-108); Creatinine Clr Calc Pharmacy 214.6; Estimated Glomerular Filt Rate > 60; Magnesium 2.3 mg/dL (1.6-2.6); Potassium 4.1 mmol/L (3.3-5.1); Sodium 144 mmol/L (135-145); Total Protein 6.8 g/dL (6.5-8.0)
--- NOTE | 2025-01-20 05:58 | PC.NURSE ---
Assumed care at 2130. Patient alert and oriented x3, drowsy and occasionally vague. Patient has difficulty with speech?at baseline, often mouths words or communicates by writing. Patient calm and cooperative. SR on tele, HR 70s-80s. Lungs rhonchorous to upper lobes and dim throughout. Patient has weak, wet cough. Patient initially on HiFlo NC, 45L/30%, saturating well. Transitioned to PM BiPAP by RT with good effect., 14/7 and 28%. Deep suctioned by RT once with good effect, large amount of thick cream secretions suctioned. Patient remains strict NPO, several incontinent BMs overnight. Purewick in place draining cloudy pale yellow urine. Skin warm and dry, healing MDPI to bridge of nose protected with mepilex for BiPAP application. Heels elevated with boots, perineal care provided for blisters, and pink foams replaced to buttocks/coccyx. Patient Repositioned Q2HR as tolerated, bed locked in lowest position, call lezama within reach.?
[2025-01-20] MEDS: 0.9 % Sodium Chloride Flush 3 ML SYRINGE IVFLUSH ×3 (11:12→22:53)
[2025-01-20] MEDS: Chlorhexidine Gluc Oral Rinse 15 ML MOUTHWASH BUCCAL (11:12)
[2025-01-20] MEDS: ACYCLOVIR SODIUM IV ×2 (11:15→23:24)
[2025-01-20] MEDS: SODIUM CHLORIDE 0.9% IV ×2 (11:15→23:24)
[2025-01-20 11:20] LABS: Glucose, Whole Blood 134 mg/dL (60-115)
--- NOTE | 2025-01-20 11:54 | P.PNCC_ITS ---
Subjective Subjective Date of Service: 01/20/25 Interval History: Doing better, slowly weaning the oxygen requirement Currently on high-flow oxygen 35% at 50 L/min Critical Care Time (minutes): 35 Physical Exam 2 Exam: Exam: General: Middle-aged lady comfortable, sitting in the bed with a nice smile Nutritional Appearance: well nourished and overweight Eyes: appearance normal, both eyes and all related structures; Alignment and Position: alignment normal and position normal Neck: No lymphadenopathy, no thyromegaly Resp: bilateral air entry equal, bilateral crackles heard Cardio: Regular rate, regular rhythm; Heart sounds: S1 normal heart sound present and S2 normal heart sound present GI: soft, nontender, no guarding, no hepatosplenomegaly : bladder normal to inspection, bladder normal to palpation, no renal angle tenderness Skin: no rashes or lesions noted and elasticity normal Neuro: Cranial nerves normal, vocal cord palsy present, lower extremities weak Vital Signs: Vital Signs: Last Vital Signs Temp 98.6 F 01/20/25 10:00 Pulse 75 01/20/25 11:31 Resp 19 01/20/25 11:31 BP 149/91 H 01/20/25 11:00 Pulse Ox 96 01/20/25 11:00 O2 Del Method High Flow Nasal C annula 01/20/25 11:00 O2 Flow Rate 45 01/20/25 11:00 FiO2 45 01/20/25 11:00 BMI result Body Mass Index 38.4 Objective Data Labs 01/20/25 04:45 01/20/25 04:45 Labs: Laboratory Results - last 24 hr 01/19/25 01/19/25 01/19/25 12:41 17:21 23:44 WBC RBC Hgb Hct MCV MCH MCHC RDW Plt Count MPV Immature Gran % (Auto) Neut % (Auto) Lymph % (Auto) [place] % (Auto) Eos % (Auto) Baso % (Auto) Lymph # (Auto) [place] # (Auto) Eos # (Auto) Baso # (Auto) Abs Immat Gran (auto) Absolute Neuts (auto) Absolute Nucleated RBC Nucleated RBC % (auto) Smear Tech's Comments VBG pH VBG pCO2 VBG pO2 VBG HCO3 VBG O2 Saturation VBG Base Excess Sodium Potassium Chloride Carbon Dioxide Anion Gap BUN Creatinine Estim Creat Clear Calc Estimated GFR POC Glucose 170 H 145 H 115 Random Glucose Calcium Phosphorus Magnesium Total Bilirubin AST ALT Alkaline Phosphatase Total Protein Albumin 01/20/25 01/20/25 01/20/25 04:45 04:46 04:48 WBC 11.4 H RBC 3.54 L Hgb 10.1 L Hct 29.4 L MCV 83.1 MCH 28.5 MCHC 34.4 RDW 15.3 Plt Count 319 MPV 8.7 L Immature Gran % (Auto) 0.9 H Neut % (Auto) 90.8 H Lymph % (Auto) 4.8 L [place] % (Auto) 3.2 Eos % (Auto) 0.1 Baso % (Auto) 0.2 Lymph # (Auto) 0.5 L [place] # (Auto) 0.4 Eos # (Auto) 0.0 Baso # (Auto) 0.0 Abs Immat Gran (auto) 0.10 H Absolute Neuts (auto) 10.3 H Absolute Nucleated RBC 0.000 Nucleated RBC % (auto) 0.0 Smear Tech's Comments VERIFIED VBG pH 7.45 H VBG pCO2 45 VBG pO2 83 VBG HCO3 31 H VBG O2 Saturation 96.0 VBG Base Excess 7.2 Sodium 144 Potassium 4.1 Chloride 108 Carbon Dioxide 27 Anion Gap 13 BUN 18 H Creatinine 0.38 L Estim Creat Clear Calc 214.6 Estimated GFR > 60 POC Glucose 124 H Random Glucose 134 H Calcium 9.1 D Phosphorus 4.0 Magnesium 2.3 Total Bilirubin 0.4 AST 39 H ALT 51 H Alkaline Phosphatase 67 Total Protein 6.8 Albumin 4.2 01/20/25 11:14 WBC RBC Hgb Hct MCV MCH MCHC RDW Plt Count MPV Immature Gran % (Auto) Neut % (Auto) Lymph % (Auto) [place] % (Auto) Eos % (Auto) Baso % (Auto) Lymph # (Auto) [place] # (Auto) Eos # (Auto) Baso # (Auto) Abs Immat Gran (auto) Absolute Neuts (auto) Absolute Nucleated RBC Nucleated RBC % (auto) Smear Tech's Comments VBG pH VBG pCO2 VBG pO2 VBG HCO3 VBG O2 Saturation VBG Base Excess Sodium Potassium Chloride Carbon Dioxide Anion Gap BUN Creatinine Estim Creat Clear Calc Estimated GFR POC Glucose 134 H Random Glucose Calcium Phosphorus Magnesium Total Bilirubin AST ALT Alkaline Phosphatase Total Protein Albumin Microbiology Microbiology Results: Microbiology 01/11/25 22:38 Blood - Venous Blood Culture - Final No growth after 5 days. 01/11/25 22:38 Blood - Venous Blood Culture - Final No growth after 5 days. 01/09/25 06:28 Blood - Venous Blood Culture - Final No growth after 5 days. 01/09/25 06:28 Blood - Venous Blood Culture - Final No growth after 5 days. 01/11/25 22:19 Sputum - Suctioned Gram Stain - Final 01/11/25 22:19 Sputum - Suctioned Sputum Culture - Final 01/06/25 23:32 Blood - Venous Blood Culture - Final No growth after 5 days. 01/06/25 23:32 Blood - Venous Blood Culture - Final No growth after 5 days. Progress Note: A&P Assessment and plan (1) Hypothyroidism: Status: Acute (2) Acute and chronic respiratory failure with hypercapnia: Status: Acute (3) Pulmonary edema: Status: Acute (4) Pulmonary aspiration: Status: Acute (5) Acute on chronic respiratory failure with hypoxia and hypercapnia: Status: Acute Plan Neuro: Patient has history of a progressive neurological disorder for which she was undergoing evaluation. Apparently she developed weakness in her lower extremities along with difficulty in speech since last May that was progressive later developed urinary incontinence and was wheelchair-bound in October for which she was evaluated at [facility] and here. She underwent a MRI of the spine which did not show any acute abnormalities, initial blood workup were negative for, neuropathies. 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 EMG ruled out any acute or subacute neuropathies including myasthenia gravis or CIDP or GBS, possibly has a chronic neuropathy in the lower extremity She is on empiric solumedrol 60mg q.8 hours with which we see some improvement in her respiratory efforts so we will continue on steroids. We will get a brain MRI once she is more stable. Possibly might need a lumbar puncture if herpes serology comes back positive Respiratory: Acute hypoxemic respiratory failure due to combination of obesity hypoventilation syndrome along with vocal cord palsy leading to poor respiratory efforts First intubation on 01/09/2025 extubated the next day and reintubation on 01/11/2025 and extubated on 01/19/2025. Explained to her family that if she gets reintubated she would need a tracheostomy Currently she is doing okay, on nighttime BiPAP and daytime high-flow. We will we will high-flow during the day as tolerated. She is on empiric Zosyn, MRSA nares negative off vancomycin. GI: will do a swallow evaluation Renal: We will closely monitor I's and O's Avoid nephrotoxic medications Has genital lesions, herpes cultures are pending. She is on empiric acyclovir which we will stop if the herpes comes back negative Heme: Chronic anemia, closely monitor H&H, transfuse for hemoglobin less than 7 grams/deciliter Endocrine: Blood sugars under control Sliding scale insulin as needed hypothyroidism: on levothyroxine 88mcg daily. Infectious disease: panculture negative so far on empiric vancomycin and Zosyn MRSA nares negative; vancomycin discontinued Musculoskeletal: Decubitus ulcer prevention protocol Lines: Right IJ TLC placed on 01/11/2025 Prophylaxis: Lovenox, famotidine Quality Stroke Does the patient have a stroke diagnosis?: No VTE Prior VTE?: No VTE Risk Level:: Medical - moderate - high VTE Device Contraindication: Treatment Not Indicated VTE Drug Contraindication: N/A - Med Ordered
[2025-01-20 17:44] LABS: Glucose, Whole Blood 139 mg/dL (60-115)
--- NOTE | 2025-01-20 18:17 | PC.NURSE ---
Assumed care at 0700. Pt remains on HFNC. Fio2 titrated down as tolerated, per MD. [place] working admirably. Pt is more communicative and better able to express needs. Pt repositioned q2hrs as tolerated. See MAR and assessments for further details.
[2025-01-20 23:20] LABS: Glucose, Whole Blood 117 mg/dL (60-115)
[2025-01-21] VITALS (34 sets, daily range): BP systolic 95–154; BP diastolic 51–102; PULSE 53–88; RESP 14–40; TEMP 36.1–36.5; O2SAT 89–97; BMI 38.3
[2025-01-21 05:02] LABS: VBG HCO3 37 mmol/L (22-26); VBG O2 % Saturation 76.0 %
[2025-01-21 05:03] LABS: Venous Blood Gas Refer to POC result
[2025-01-21 05:09] LABS: Hematocrit 29.8 % (37.0-47.0); Hemoglobin 9.8 g/dl (12.0-16.0); Imm Gran Abs Auto 0.08 X10*3/uL (0.00-0.03); Imm Gran Pct Auto 0.8 % (0.0-0.4); Lymphocytes Absolute Auto 0.4 X10*3/uL (1.2-4.9); MANUAL DIFF FLAG SCAN; Mean Corpuscular HGB Conc 32.9 g/dl (31.0-35.0); Mean Corpuscular Hemoglobin 28.0 pg (27.0-33.0); Mean Corpuscular Volume 85.1 fL (80.0-98.0); NRBC Abs Auto 0.000 X10*3/uL (0.0-0.012); NRBC Pct Auto 0.0 /100WBC (0.0-0.2); Platelet Count 321 X10*3/uL (160-400); Red Blood Count 3.50 X10*6/uL (4.20-5.50); SCAN SMEAR FLAG 1; White Blood Count 9.9 X10*3/uL (4.8-10.8)
[2025-01-21] MEDS: Albuterol/Iprat 2.5/0.5MG 3 ML AMPUL.NEB INHALE ×4 (05:10→23:35)
[2025-01-21 05:26] LABS: Alanine Aminotransferase 53 U/L (0-31); Albumin Level 3.8 g/dL (3.5-5.0); Alkaline Phosphatase 60 U/L (39-117); Anion Gap 12 (12-20); Aspartate Amino Transferase 24 U/L (5-31); Blood Urea Nitrogen 22 mg/dL (9-16); Calcium 8.8 mg/dL (8.4-10.2); Carbon Dioxide 30 mmol/L (22-29); Chloride 105 mmol/L (96-108); Creatinine Clr Calc Pharmacy 239.6; Estimated Glomerular Filt Rate > 60; Magnesium 2.2 mg/dL (1.6-2.6); Potassium 4.0 mmol/L (3.3-5.1); Sodium 143 mmol/L (135-145); Total Protein 6.2 g/dL (6.5-8.0)
[2025-01-21] MEDS: Albuterol Sulfate (0.083%) 2.5 MG/3 ML VIAL.NEB INHALE (06:22)
[2025-01-21] MEDS: 0.9 % Sodium Chloride Flush 3 ML SYRINGE IVFLUSH ×3 (08:20→23:02)
--- NOTE | 2025-01-21 10:15 | PM.CCPN ---
Subjective Subjective Date of Service: 01/21/25 Interval History: Was on BiPAP overnight, currently on high-flow oxygen during the day Critical Care Time (minutes): 35 Physical Exam Vital Signs: Vital Signs: Last Vital Signs Temp 97.4 F 01/21/25 07:00 Pulse 65 01/21/25 09:00 Resp 22 H 01/21/25 09:00 BP 142/76 H 01/21/25 09:00 Pulse Ox 94 01/21/25 09:00 O2 Del Method High Flow Nasal C annula 01/21/25 09:00 O2 Flow Rate 45 01/21/25 09:00 FiO2 30 01/21/25 06:00 BMI result Body Mass Index 38.3 General: Middle-aged lady in a minimal acute distress, sitting in the bed pleasantly communicated by writing on paper Nutritional Appearance: well nourished and overweight Eyes: appearance normal, both eyes and all related structures; Alignment and Position: alignment normal and position normal Neck: No lymphadenopathy, no thyromegaly Resp: bilateral air entry equal, occasional added sounds present Cardio: Regular rate, regular rhythm; Heart sounds: S1 normal heart sound present and S2 normal heart sound present GI: soft, nontender, no guarding, no hepatosplenomegaly : bladder normal to inspection, bladder normal to palpation, no renal angle tenderness Skin: no rashes or lesions noted and elasticity normal Neuro: oriented to person, oriented to place, oriented to time and lower extremity weakness present, cranial nerves normal, aphonia Objective Data Labs 01/21/25 04:50 01/21/25 04:50 Labs: Laboratory Results - last 24 hr 01/20/25 01/20/25 01/20/25 11:14 17:40 23:15 WBC RBC Hgb Hct MCV MCH MCHC RDW Plt Count MPV Immature Gran % (Auto) Neut % (Auto) Lymph % (Auto) [place] % (Auto) Eos % (Auto) Baso % (Auto) Lymph # (Auto) [place] # (Auto) Eos # (Auto) Baso # (Auto) Abs Immat Gran (auto) Absolute Neuts (auto) Absolute Nucleated RBC Nucleated RBC % (auto) Smear Tech's Comments VBG pH VBG pCO2 VBG pO2 VBG HCO3 VBG O2 Saturation VBG Base Excess Sodium Potassium Chloride Carbon Dioxide Anion Gap BUN Creatinine Estim Creat Clear Calc Estimated GFR POC Glucose 134 H 139 H 117 H Random Glucose Calcium Phosphorus Magnesium Total Bilirubin AST ALT Alkaline Phosphatase Total Protein Albumin 01/21/25 01/21/25 04:50 04:57 WBC 9.9 RBC 3.50 L Hgb 9.8 L Hct 29.8 L MCV 85.1 MCH 28.0 MCHC 32.9 RDW 15.2 Plt Count 321 MPV 8.9 L Immature Gran % (Auto) 0.8 H Neut % (Auto) 91.3 H Lymph % (Auto) 4.5 L [place] % (Auto) 3.2 Eos % (Auto) 0.0 Baso % (Auto) 0.2 Lymph # (Auto) 0.4 L [place] # (Auto) 0.3 Eos # (Auto) 0.0 Baso # (Auto) 0.0 Abs Immat Gran (auto) 0.08 H Absolute Neuts (auto) 9.0 H Absolute Nucleated RBC 0.000 Nucleated RBC % (auto) 0.0 Smear Tech's Comments VERIFIED VBG pH 7.45 H VBG pCO2 53 VBG pO2 49 VBG HCO3 37 H VBG O2 Saturation 76.0 VBG Base Excess 12.1 Sodium 143 Potassium 4.0 Chloride 105 Carbon Dioxide 30 H Anion Gap 12 BUN 22 H Creatinine 0.34 L Estim Creat Clear Calc 239.6 Estimated GFR > 60 POC Glucose Random Glucose 131 H Calcium 8.8 Phosphorus 3.5 Magnesium 2.2 Total Bilirubin 0.4 AST 24 ALT 53 H Alkaline Phosphatase 60 Total Protein 6.2 L Albumin 3.8 Microbiology Microbiology Results: Microbiology 01/11/25 22:38 Blood - Venous Blood Culture - Final No growth after 5 days. 01/11/25 22:38 Blood - Venous Blood Culture - Final No growth after 5 days. 01/09/25 06:28 Blood - Venous Blood Culture - Final No growth after 5 days. 01/09/25 06:28 Blood - Venous Blood Culture - Final No growth after 5 days. 01/11/25 22:19 Sputum - Suctioned Gram Stain - Final 01/11/25 22:19 Sputum - Suctioned Sputum Culture - Final 01/06/25 23:32 Blood - Venous Blood Culture - Final No growth after 5 days. 01/06/25 23:32 Blood - Venous Blood Culture - Final No growth after 5 days. Progress Note: A&P Assessment and plan (1) Hypothyroidism: Status: Acute (2) Acute on chronic respiratory failure with hypoxia and hypercapnia: Status: Acute (3) Obesity hypoventilation syndrome: Status: Acute (4) Pneumonia: Status: Acute Plan Neuro: Patient has history of a progressive neurological disorder for which she was undergoing evaluation. Apparently she developed weakness in her lower extremities along with difficulty in speech since last May that was progressive later developed urinary incontinence and was wheelchair-bound in October for which she was evaluated at [facility] and here. She underwent a MRI of the spine which did not show any acute abnormalities, initial blood workup were negative for, neuropathies. 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 EMG ruled out any acute or subacute neuropathies including myasthenia gravis or CIDP or GBS, possibly has a chronic neuropathy in the lower extremity. She is on empiric solumedrol 60mg q.8 hours with which we see some improvement in her respiratory efforts so we will continue on steroids. We will get a brain MRI once she is more stable. Possibly might need a lumbar puncture if herpes serology comes back positive Respiratory: Acute hypoxemic respiratory failure due to combination of obesity hypoventilation syndrome along with vocal cord palsy leading to poor respiratory efforts First intubation on 01/09/2025 extubated the next day and reintubation on 01/11/2025 and extubated on 01/19/2025. Explained to her family that if she gets reintubated she would need a tracheostomy Currently she is doing okay, on nighttime BiPAP and daytime high-flow. We will wean high-flow during the day as tolerated. She is on empiric Zosyn, MRSA nares negative off vancomycin. GI: will do a swallow evaluation Renal: We will closely monitor I's and O's Avoid nephrotoxic medications Has genital lesions, herpes cultures are pending. She is on empiric acyclovir which we will stop if the herpes comes back negative Heme: Chronic anemia, closely monitor H&H, transfuse for hemoglobin less than 7 grams/deciliter Endocrine: Blood sugars under control Sliding scale insulin as needed hypothyroidism: on levothyroxine 88mcg daily. Infectious disease: panculture negative so far on empiric vancomycin and Zosyn MRSA nares negative; vancomycin discontinued Musculoskeletal: Decubitus ulcer prevention protocol Lines: Right IJ TLC placed on 01/11/2025 Prophylaxis: Lovenox, famotidine Quality Stroke Does the patient have a stroke diagnosis?: No VTE Prior VTE?: No VTE Risk Level:: Medical - moderate - high VTE Device Contraindication: Treatment Not Indicated VTE Drug Contraindication: N/A - Med Ordered
[2025-01-21 11:55] LABS: Glucose, Whole Blood 138 mg/dL (60-115)
[2025-01-21] MEDS: ACYCLOVIR SODIUM IV ×2 (13:03→23:01)
[2025-01-21] MEDS: SODIUM CHLORIDE 0.9% IV ×2 (13:03→23:01)
[2025-01-21 17:18] LABS: Glucose, Whole Blood 112 mg/dL (60-115)
--- NOTE | 2025-01-21 19:33 | PC.NURSE ---
Assumed care of patient at 0700 Neuro: patient alert and oriented x4, able to answer nodding and writing responses, calm. Cardiac: SR, non pitting edema noted to upper and lower extremities. Resp: Dim, decreased High flow to 40L and 40%, able to place on NC, but shortly after patient SOB and requesting to return to High Flow, no desatting noted but patient returned to High flow remainder of shift, SOB noted with laying flat.? GI/: NPO, no OG or NG tube in place? Integumentary/Musculoskeletal: turn and repo every 2 hours to maintain skin integrity, pink foam to coccyx and left buttock, see skin assessment for full details.
--- NOTE | 2025-01-21 19:45 | PC.NURSE ---
Addendum entered by Sissy White RN 01/21/25 21:15: RN to bedside. pts RR 40. Pa made aware. New order for dilaudid 0.5mg IV. admin as ordered with good effect. pt resting eyes closed in bed. Original Note: assumed care 1900, upon initial assessment pt on HFNC 45L 40% with increased work of breathing appearing tired. pt requesting to go on Bipap, Pt placed on Bipap by RT. with good effect, pt resting eyes closed, call lezama in reach. plan of care continues.
[2025-01-21 23:59] LABS: Glucose, Whole Blood 125 mg/dL (60-115)
[2025-01-22] VITALS (30 sets, daily range): BP systolic 93–157; BP diastolic 51–97; PULSE 65–122; RESP 18–28; TEMP 36.1–37; O2SAT 90–98; BMI 38.3
[2025-01-22 05:07] LABS: VBG HCO3 39 mmol/L (22-26); VBG O2 % Saturation 81.0 %
[2025-01-22 05:09] LABS: Venous Blood Gas Refer to POC result
[2025-01-22 05:10] LABS: MANUAL DIFF FLAG NO
[2025-01-22 05:12] LABS: Hematocrit 29.9 % (37.0-47.0); Hemoglobin 10.2 g/dl (12.0-16.0); Imm Gran Abs Auto 0.05 X10*3/uL (0.00-0.03); Imm Gran Pct Auto 0.5 % (0.0-0.4); Lymphocytes Absolute Auto 0.7 X10*3/uL (1.2-4.9); Mean Corpuscular HGB Conc 34.1 g/dl (31.0-35.0); Mean Corpuscular Hemoglobin 28.2 pg (27.0-33.0); Mean Corpuscular Volume 82.6 fL (80.0-98.0); NRBC Abs Auto 0.000 X10*3/uL (0.0-0.012); NRBC Pct Auto 0.0 /100WBC (0.0-0.2); Platelet Count 339 X10*3/uL (160-400); Red Blood Count 3.62 X10*6/uL (4.20-5.50); White Blood Count 9.3 X10*3/uL (4.8-10.8)
[2025-01-22] MEDS: Albuterol/Iprat 2.5/0.5MG 3 ML AMPUL.NEB INHALE ×4 (05:14→23:04)
[2025-01-22 05:28] LABS: Alanine Aminotransferase 61 U/L (0-31); Albumin Level 3.8 g/dL (3.5-5.0); Alkaline Phosphatase 62 U/L (39-117); Anion Gap 11 (12-20); Aspartate Amino Transferase 26 U/L (5-31); Blood Urea Nitrogen 20 mg/dL (9-16); Calcium 9.0 mg/dL (8.4-10.2); Carbon Dioxide 33 mmol/L (22-29); Chloride 101 mmol/L (96-108); Creatinine Clr Calc Pharmacy 246.4; Estimated Glomerular Filt Rate > 60; Magnesium 2.1 mg/dL (1.6-2.6); Potassium 3.8 mmol/L (3.3-5.1); Sodium 141 mmol/L (135-145); Total Protein 6.4 g/dL (6.5-8.0)
[2025-01-22] MEDS: 0.9 % Sodium Chloride Flush 3 ML SYRINGE IVFLUSH ×2 (10:39→16:03)
--- NOTE | 2025-01-22 11:09 | P.PNCC_ITS ---
Subjective Subjective Date of Service: 01/22/25 Interval History: 44-year-old lady with underlying morbid obesity with obesity hyperventilation, PCOS, panic disorder, hypothyroidism admitted on 01/07/2025 with dyspnea to telemetry [facility] in treated empirically for community-acquired pneumonia. Hospital course further complicated by iatrogenic hyperoxia resulting in acute hypercapnia requiring BiPAP support. Patient transferred to telemetry [facility] on 01/08/2025. Overnight patient with another episode you iatrogenic hyperoxia with resultant hypercapnia requiring intubation with ventilatory support and transfer to intensive care unit, further complicated by CO2 narcosis associated aspiration. Extubated uneventfully on 01/10/2025. Overnight with pulmonary aspiration requiring emergent intubation, thereafter with hypoxia refractory to ventilatory support requiring emergent bedside bronchoscopy with secretion clearance with improvement in oxygenation. EMG with no evidence of myopathy. Extubated on 01/19/2025. Continues to require BiPAP support on and off. No events overnight. Critical Care Time (minutes): 0 Physical Exam 2 Vital Signs: Vital Signs: Last Vital Signs Temp 97.5 F 01/22/25 00:00 Pulse 75 01/22/25 09:00 Resp 27 H 01/22/25 09:00 BP 137/83 01/22/25 09:00 Pulse Ox 97 01/22/25 09:00 O2 Del Method BiPAP 01/22/25 09:00 O2 Flow Rate 40 01/22/25 08:00 FiO2 50 01/22/25 09:00 BMI result Body Mass Index 38.3 Const: General: no acute distress, alert and awake Eyes: Sclerae: sclerae normal EOM: EOMs intact bilaterally Neck: Neck: Yes no lymphadenopathy, Yes trachea midline and Yes supple Resp: Effort & Inspection: normal respiratory effort and no respiratory distress Auscultation: clear to auscultation bilaterally Cardio: Rate: regular rate Rhythm: regular rhythm Heart sounds: no gallops, no murmurs and no rubs GI: Palpation (GI): Soft to palpation and Other GI palpation findings present ( Nontender) Auscultation: normal bowel sounds Extrem: General: Yes no pedal edema, No clubbing and No cyanosis Objective Data Labs 01/22/25 04:49 01/22/25 04:49 Labs: Laboratory Results - last 24 hr 01/21/25 01/21/25 01/21/25 11:51 17:15 23:56 WBC RBC Hgb Hct MCV MCH MCHC RDW Plt Count MPV Immature Gran % (Auto) Neut % (Auto) Lymph % (Auto) [place] % (Auto) Eos % (Auto) Baso % (Auto) Lymph # (Auto) [place] # (Auto) Eos # (Auto) Baso # (Auto) Abs Immat Gran (auto) Absolute Neuts (auto) Absolute Nucleated RBC Nucleated RBC % (auto) VBG pH VBG pCO2 VBG pO2 VBG HCO3 VBG O2 Saturation VBG Base Excess Sodium Potassium Chloride Carbon Dioxide Anion Gap BUN Creatinine Estim Creat Clear Calc Estimated GFR POC Glucose 138 H 112 125 H Random Glucose Calcium Phosphorus Magnesium Total Bilirubin AST ALT Alkaline Phosphatase Total Protein Albumin 01/22/25 01/22/25 04:49 05:03 WBC 9.3 RBC 3.62 L Hgb 10.2 L Hct 29.9 L MCV 82.6 MCH 28.2 MCHC 34.1 RDW 14.7 Plt Count 339 MPV 8.6 L Immature Gran % (Auto) 0.5 H Neut % (Auto) 88.7 H Lymph % (Auto) 7.1 L [place] % (Auto) 3.6 Eos % (Auto) 0.0 Baso % (Auto) 0.1 Lymph # (Auto) 0.7 L [place] # (Auto) 0.3 Eos # (Auto) 0.0 Baso # (Auto) 0.0 Abs Immat Gran (auto) 0.05 H Absolute Neuts (auto) 8.2 Absolute Nucleated RBC 0.000 Nucleated RBC % (auto) 0.0 VBG pH 7.51 H VBG pCO2 49 VBG pO2 53 VBG HCO3 39 H VBG O2 Saturation 81.0 VBG Base Excess 14.8 Sodium 141 Potassium 3.8 Chloride 101 Carbon Dioxide 33 H Anion Gap 11 L BUN 20 H Creatinine 0.33 L Estim Creat Clear Calc 246.4 Estimated GFR > 60 POC Glucose Random Glucose 135 H Calcium 9.0 Phosphorus 3.1 Magnesium 2.1 Total Bilirubin 0.5 AST 26 ALT 61 H Alkaline Phosphatase 62 Total Protein 6.4 L Albumin 3.8 Microbiology Microbiology Results: Microbiology 01/11/25 22:38 Blood - Venous Blood Culture - Final No growth after 5 days. 01/11/25 22:38 Blood - Venous Blood Culture - Final No growth after 5 days. 01/09/25 06:28 Blood - Venous Blood Culture - Final No growth after 5 days. 01/09/25 06:28 Blood - Venous Blood Culture - Final No growth after 5 days. 01/11/25 22:19 Sputum - Suctioned Gram Stain - Final 01/11/25 22:19 Sputum - Suctioned Sputum Culture - Final 01/06/25 23:32 Blood - Venous Blood Culture - Final No growth after 5 days. 01/06/25 23:32 Blood - Venous Blood Culture - Final No growth after 5 days. Progress Note: A&P Assessment and plan (1) Acute on chronic respiratory failure with hypoxia and hypercapnia: Status: Acute Plan Assessment: 44-year-old lady with underlying obesity hypoventilation admitted with dyspnea further complicated by acute on chronic hypercapnia briefly requiring BiPAP support Plan: Neuro: No acute issues. Previously negative workup for myasthenia gravis. Additional neurological is negative including serologies and EMG.. Cardiac: No acute issues. Pulmonary: Recurrent acute on chronic hypercapnic respiratory failure secondary to iatrogenic hyperoxia requiring intubation and ventilatory support further complicated by CO2 narcosis associated pulmonary. Extubated 01/10/2025. Patient with pulmonary aspiration requiring emergent intubation thereafter with refractory hypoxemia requiring bedside bronchoscopy for secretion clearance on 01/11/2025, extubated 01/19/2025. Continues to require BiPAP support on and off, and also high-flow nasal cannula support. Renal: No acute issues. Endo: No acute issues. GI: No acute issues. ID: Acyclovir for genital HSV. Heme/Onc: No acute issues. Psych: No acute issues. Miscellaneous: No acute issues. Prophylaxis: Heparin Diet: Pending swallow evaluation. Quality Stroke Does the patient have a stroke diagnosis?: No VTE Prior VTE?: No VTE Risk Level:: Medical - moderate - high VTE Device Contraindication: Treatment Not Indicated VTE Drug Contraindication: N/A - Med Ordered
--- NOTE | 2025-01-22 11:27 | HO.WOUND ---
Addendum entered by Taya Jackson RN 01/24/25 07:11: 01/24/25 Chart review and follow up for gential lesions - Confirmed HSV. Updated recommendations: Genital - Gently cleanse with routine cleansing, dry well. Keep dry and free from moisture. May use Interdry to translocate moisture from area. May use Ice Pack to sooth area if discomfort experienced. Addendum entered by Taya Jakcson RN 01/23/25 17:05: 01/23/25 Right Heel Assessment - Two maroon red linear pigmentation changes noted - the areas are intact and currently are blanching. the sites are not consistent with pressure at this time and there are no devices observed in use that would create the linear pigmentations noted. No topical interventions needed at this time as patient remains in heel off loading boots for prevention. Right Heel Linear Lines - maroon intact. Superior line blanching. Inferior line blanching. Original Note: Wound Consult: Follow up 44yr old?female admitted to [facility] on 01/07/25 07:11- See progress notes and H&P for detailed history.? Wound consult follow up for Bridge of nose and sacral area.? Patient is currently requiring BIPAP and remains in ICU level of care. 01/12/25 01/22/25 Bridge of Nose Etiology: ?Produce Clerk Related Deep Tissue Injury Wound Bed: improving purple intact nonblanchable tissue Drainage / Odor: None Edges: defined and attached ? Willa wound: Intact pink blanchable Goals of Treatment: ? Continue to off load pressure with Mepilex or other Foam dressing - D/c device once able 01/12/25 01/22/25 Coccyx and Left Sacrum / Buttock Etiology: ?MASD Moisture Associated Skin Damage Wound Bed: partial thickness tissue loss - clean wound bed Edges: ? attached Willa wound: ?macerated and hyperpigmented Goals of Treatment: Off Load Pressure and barier cream / Triad Photo from Prior assessment in chart. Of note staff requested Genital area assessment - One intact blister noted to right labia - appears white base - no scabbing and no clusters or coalesced lesions noted. (Central Area observed in photo not appreciated at bedside.) Provider suspected Herpes outbreak - started on antiviral and swab sent pending results. At this time the patient has been on Antiviral for greater than 24 hours but current assessment is not entirely consistent with Herpes virus - Etiology otherwise unknown. May continue to provide Pericare and should blisters rupture may apply barrier cream or vaseline for moist wound healing. Recommendations: 1. Turn and Reposition every 2 hours and as needed for patient comfort.? Use pillows or wedges to support off loading positions. 2. Off Load all bony prominences with use of pillows and heel boots if needed.? Apply Preventative foams where needed. ? 3. Monitor for incontinence and moisture control, use barrier creams when needed for prevention and treatment. 4. Provide adequate and supplemental nutrition.? 5. Continue low air loss mattress. 6. When applicable maintain blood glucose levels per Providers order. Bridge of nose - Routine cleansing. Apply Skin prep be sure to avoid eyes allow to dry. Apply Foam dressing to pad skin from device. Change Daily and PRN. Coccyx - ?Off Load Pressure with Q2 hr turns and use of pillows - Cleanse with PH balance spray or wipes, pat dry. ?Apply thin layer of Triad to wound bed - only pat and dab no scrub and rub when soiling occurs. Reapply thin layer PRN after each episode of incontinence. Re-consult wound care Nurse for wound deterioration or wound changes.
--- NOTE | 2025-01-22 12:08 | MHC.CLN ---
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
--- NOTE | 2025-01-22 12:17 | MHC.SL.SWA ---
Speech Pathologist Impression: Pharyngeal Dysphagia Risk of Aspiration Due to: Hx of dysphagia Hx of aspiration PNA Hx of VC palsy (transient) Dysphasia Diet Status: Liquid Consistency and Strategies for Safe Swallow: Liquid Intake Recommendation: NPO Liquid Intake Strategies: Solid Food Consistency: Dietary Recommendations: NPO Additional Modifications to Solid Foods: Oral Medication Intake: NPO Please contact the pharmacy regarding appropriate crushable or liquid drug formulations that are available whenever modified delivery is recommended. Compensatory Strategies and Precautions to be Taken for Safe Swallow: Supervision While Eating and Drinking for Safe Swallow: PO with SENIOR UNDERWRITING ASSISTANT Foods to Avoid: Swallowing Recommended Treatments: Recommendation for Speech: Inpatient Speech Therapy Comment: Pt is aphonic, with poor ability to elicit volitional cough in presence of historic vocal cord palsy and recent respiratory compromise. Pt was on BIPAP prior to clinical bedside swallow evaluation, RT placed pt on hi flow O2. Pt satting at 90% on hi-flow O2. Pt endorsed hx of dysphonia, and nodded when asked if she has had a swallow xray; pt gestured and mouthed 'long ago'. Pt uses writing to communicate, writing she 'can breath on oxygen tube'. Oromotor mobility WNL. Pt is aphonic, unable to elicit /ah/ upon volitional attempt, also unable to elicit volitional cough, though she does expel air upon attempting cough. Trials of water presented. Pt took small amount by cup, with immediate physiological signs of jassi aspiration (breathy cough, posturing forward slightly, unable to clear with multiple coughs). Trials discontinued. MD and RN notified of findings. SENIOR UNDERWRITING ASSISTANT provided education to pt and pt sister at bedside. Pt verbalized understanding and agreed, recc NPO with repeat assessment tomorrow as indicated. Frequency/Duration: Daily M-F Date Range for Service Req: Timeline to reassess: Monument Setter Clinican/Clinical Fellow: No Supervisory Statement: I have reviewed and agree with the student/clinical fellow's documentation: N/A Speech Language Pathologist: Norma Richards M.S., [facility])-SENIOR UNDERWRITING ASSISTANT
[2025-01-22] MEDS: ACYCLOVIR SODIUM IV (12:50)
[2025-01-22] MEDS: SODIUM CHLORIDE 0.9% IV (12:50)
[2025-01-22 13:02] LABS: Glucose, Whole Blood 129 mg/dL (60-115)
--- NOTE | 2025-01-22 13:32 | MHC.CM.PN ---
Pt continues care in ICU: she is on O2 and able to converse by writing needs. Seen by Speech who continue to recommend NPO d/t impairment. Pt's steroids to be adjusted, ? transfer to the floor if she continues to remain stable. Pt able to complete a new HCP on 01/21 naming her niece Juan as the primary agent. CM to follow for finalization of d/c needs: likely SNF (has been referred)
[2025-01-22 17:11] LABS: Glucose, Whole Blood 102 mg/dL (60-115)
--- NOTE | 2025-01-22 19:17 | PC.NURSE ---
Assumed care of patient at 0700 Neuro: patient alert and oriented x4, able to answer nodding and writing responses, calm. Moments of anxiety noted with repositioning x2 this shift Cardiac: SR, non pitting edema noted to upper and lower extremities. Resp: Dim, decreased High flow to 50L and 40%, SOB with repositioning, and requested to return Bipap, desatting noted placed on Bipap for 2-3 hours and then returned to high flow, patient requested bipap this afternoon no desating noted, patient encouraged to maintain on high flow for now, tolerating well, SOB noted with laying flat.? GI/: NPO, attempted to place NG tube and unsuccessful x2 and patient refusing any further attempts and requesting parental nutrition be given instead.? Integumentary/Musculoskeletal: turn and repo every 2 hours to maintain skin integrity, pink foam to coccyx and left buttock, see skin assessment for full details.
[2025-01-23] VITALS (31 sets, daily range): BP systolic 99–190; BP diastolic 41–91; PULSE 75–130; RESP 12–32; TEMP 36.2–36.9; O2SAT 91–99; BMI 40.1
[2025-01-23 00:08] LABS: Glucose, Whole Blood 100 mg/dL (60-115)
[2025-01-23] MEDS: 0.9 % Sodium Chloride Flush 3 ML SYRINGE IVFLUSH ×4 (00:17→23:10)
[2025-01-23] MEDS: ACYCLOVIR SODIUM IV ×3 (00:18→23:11)
[2025-01-23] MEDS: SODIUM CHLORIDE 0.9% IV ×3 (00:18→23:11)
[2025-01-23] MEDS: Albuterol/Iprat 2.5/0.5MG 3 ML AMPUL.NEB INHALE ×4 (05:15→23:14)
--- NOTE | 2025-01-23 05:38 | PC.NURSE ---
CARE ASSUMED 7PM..AWAKE..ALERT..NON-VERBAL BUT MOUTHS WORDS AND/OR WRITES ON PAPER TO COMMUNICATE..MAINTAINED ON BIPAP 16/8 AND BACK UP RATE 18..FIO2 WEANED BY RT FROM 505 TO 36%... PER SHIFT REPORT REMAINS WITHOUT NG-TUBE AND TUBE FEEDS ON HOLD..REFUSED ADDITIONAL ATTEMPT FOR NG-TUBE INSERTION..DILAUDID 0.5MG IV X1 FOR C/O HIP/BACK/LEG PAIN WITH EFFECT....NO OUTPUT VIA PURWIK..BLADDER SCANNED 305ML AT 5AM..TO MONITOR/TREND PER ICU BRUSHER OPERATOR... PER SHIFT REPORT CONTINUES WITH SMALL AMOUNT FECAL MATERIAL DRAINAGE FROM VAGINA BUT NONE RECTALLY..PROVIDER AWARE
[2025-01-23 05:57] LABS: VBG HCO3 40 mmol/L (22-26); VBG O2 % Saturation 57.0 %
[2025-01-23 06:17] LABS: Glucose, Whole Blood 84 mg/dL (60-115)
[2025-01-23 06:29] LABS: MANUAL DIFF FLAG NO
[2025-01-23 06:33] LABS: Hematocrit 33.5 % (37.0-47.0); Hemoglobin 11.1 g/dl (12.0-16.0); Imm Gran Abs Auto 0.04 X10*3/uL (0.00-0.03); Imm Gran Pct Auto 0.3 % (0.0-0.4); Lymphocytes Absolute Auto 1.3 X10*3/uL (1.2-4.9); Mean Corpuscular HGB Conc 33.1 g/dl (31.0-35.0); Mean Corpuscular Hemoglobin 27.8 pg (27.0-33.0); Mean Corpuscular Volume 83.8 fL (80.0-98.0); NRBC Abs Auto 0.000 X10*3/uL (0.0-0.012); NRBC Pct Auto 0.0 /100WBC (0.0-0.2); Platelet Count 323 X10*3/uL (160-400); Red Blood Count 4.00 X10*6/uL (4.20-5.50); White Blood Count 12.6 X10*3/uL (4.8-10.8)
[2025-01-23 07:00] LABS: Albumin Level 3.8 g/dL (3.5-5.0); Blood Urea Nitrogen 24 mg/dL (9-16); Calcium 8.9 mg/dL (8.4-10.2); Creatinine Clr Calc Pharmacy 198.7; Estimated Glomerular Filt Rate > 60; Magnesium 2.2 mg/dL (1.6-2.6)
[2025-01-23 07:09] LABS: Anion Gap 14 (12-20); Carbon Dioxide 31 mmol/L (22-29); Chloride 104 mmol/L (96-108); Potassium 3.1 mmol/L (3.3-5.1); Sodium 146 mmol/L (135-145)
--- NOTE | 2025-01-23 09:45 | MHC.SLORD ---
Speech Language Pathology Order Status: Pt sound asleep this morning when ESTATE AND TRUST TAX PRINCIPAL attempted to visit for re-evaluation. Per RN, pt refuses to take off BiPAP. ESTATE AND TRUST TAX PRINCIPAL to re-attempt eval later in day.
[2025-01-23] MEDS: Potassium Phosphate/NS 15 MMOL/250 ML PLAST..BAG 62.5 MMOL IV ×2 (10:12→14:23)
--- NOTE | 2025-01-23 10:12 | MHC.CLN ---
CONSULT DISCUSSED AT ROUNDS WITH MD PT REFUSED ASSEMBLER WET WASH EVAL, THEREFORE UNABLE TO PLACE NGT FOR NUTRITION PT TO START PPN PER MD REVIEWED LABS DISCUSSED WITH PHARMACY RECOMMEND PPN AT 60ML/HR TO PROVIDE 734KCALS, 144G DEXTROSE, 61G PROTEIN REPLETE LYTES NEEDED CHECK TRIGS SEE FULL CLINICAL NUTRITION ASSESSMENT
--- NOTE | 2025-01-23 10:49 | P.PNCC_ITS ---
Subjective Subjective Date of Service: 01/23/25 Interval History: 44-year-old lady with underlying morbid obesity with obesity hyperventilation, PCOS, panic disorder, hypothyroidism admitted on 01/07/2025 with dyspnea to telemetry [facility] in treated empirically for community-acquired pneumonia. Hospital course further complicated by iatrogenic hyperoxia resulting in acute hypercapnia requiring BiPAP support. Patient transferred to telemetry [facility] on 01/08/2025. Overnight patient with another episode you iatrogenic hyperoxia with resultant hypercapnia requiring intubation with ventilatory support and transfer to intensive care unit, further complicated by CO2 narcosis associated aspiration. Extubated uneventfully on 01/10/2025. Overnight with pulmonary aspiration requiring emergent intubation, thereafter with hypoxia refractory to ventilatory support requiring emergent bedside bronchoscopy with secretion clearance with improvement in oxygenation. EMG with no evidence of myopathy. Extubated on 01/19/2025. Continues to require BiPAP support on and off, slowly improving. Clinical improvement is also somewhat limited by patient's in to not utilize BiPAP No events overnight. Critical Care Time (minutes): 0 Physical Exam 2 Vital Signs: Vital Signs: Last Vital Signs Temp 97.6 F 01/23/25 09:00 Pulse 117 H 01/23/25 10:00 Resp 17 01/23/25 10:29 BP 149/89 H 01/23/25 10:00 Pulse Ox 93 01/23/25 10:00 O2 Del Method BiPAP 01/23/25 10:00 O2 Flow Rate 50 01/22/25 17:58 FiO2 36 01/23/25 10:00 Oxygen Flow Rate 45 01/22/25 12:00 BMI result Body Mass Index 40.1 Const: General: no acute distress, alert and awake Eyes: Sclerae: sclerae normal EOM: EOMs intact bilaterally Neck: Neck: Yes no lymphadenopathy, Yes trachea midline and Yes supple Resp: Effort & Inspection: normal respiratory effort and no respiratory distress Auscultation: clear to auscultation bilaterally Cardio: Rate: tachycardic Rhythm: regular rhythm Heart sounds: no gallops, no murmurs and no rubs GI: Palpation (GI): Soft to palpation and Other GI palpation findings present ( Nontender) Auscultation: normal bowel sounds Extrem: General: No clubbing, No cyanosis and Yes edema (Trace bilateral) Objective Data Labs 01/23/25 05:52 01/23/25 05:52 Labs: Laboratory Results - last 24 hr 01/19/25 01/22/25 01/22/25 11:21 12:59 17:04 WBC RBC Hgb Hct MCV MCH MCHC RDW Plt Count MPV Immature Gran % (Auto) Neut % (Auto) Lymph % (Auto) [place] % (Auto) Eos % (Auto) Baso % (Auto) Lymph # (Auto) [place] # (Auto) Eos # (Auto) Baso # (Auto) Abs Immat Gran (auto) Absolute Neuts (auto) Absolute Nucleated RBC Nucleated RBC % (auto) VBG pH VBG pCO2 VBG pO2 VBG HCO3 VBG O2 Saturation VBG Base Excess Sodium Potassium Chloride Carbon Dioxide Anion Gap BUN Creatinine Estim Creat Clear Calc Estimated GFR POC Glucose 129 H 102 Random Glucose Calcium Phosphorus Magnesium Albumin HSV I IgG Ab 12.30 H HSV II IgG 22.00 H 01/22/25 01/23/25 01/23/25 23:49 05:52 05:53 WBC 12.6 H RBC 4.00 L Hgb 11.1 L Hct 33.5 L MCV 83.8 MCH 27.8 MCHC 33.1 RDW 15.2 Plt Count 323 MPV 8.5 L Immature Gran % (Auto) 0.3 Neut % (Auto) 83.2 H Lymph % (Auto) 10.2 L [place] % (Auto) 6.0 Eos % (Auto) 0.1 Baso % (Auto) 0.2 Lymph # (Auto) 1.3 [place] # (Auto) 0.8 Eos # (Auto) 0.0 Baso # (Auto) 0.0 Abs Immat Gran (auto) 0.04 H Absolute Neuts (auto) 10.5 H Absolute Nucleated RBC 0.000 Nucleated RBC % (auto) 0.0 VBG pH 7.46 H VBG pCO2 55 VBG pO2 38 VBG HCO3 40 H VBG O2 Saturation 57.0 VBG Base Excess 14.2 Sodium 146 H Potassium 3.1 L Chloride 104 Carbon Dioxide 31 H Anion Gap 14 BUN 24 H Creatinine 0.42 L Estim Creat Clear Calc 198.7 Estimated GFR > 60 POC Glucose 100 Random Glucose 83 Calcium 8.9 Phosphorus 3.3 Magnesium 2.2 Albumin 3.8 HSV I IgG Ab HSV II IgG 01/23/25 06:10 WBC RBC Hgb Hct MCV MCH MCHC RDW Plt Count MPV Immature Gran % (Auto) Neut % (Auto) Lymph % (Auto) [place] % (Auto) Eos % (Auto) Baso % (Auto) Lymph # (Auto) [place] # (Auto) Eos # (Auto) Baso # (Auto) Abs Immat Gran (auto) Absolute Neuts (auto) Absolute Nucleated RBC Nucleated RBC % (auto) VBG pH VBG pCO2 VBG pO2 VBG HCO3 VBG O2 Saturation VBG Base Excess Sodium Potassium Chloride Carbon Dioxide Anion Gap BUN Creatinine Estim Creat Clear Calc Estimated GFR POC Glucose 84 Random Glucose Calcium Phosphorus Magnesium Albumin HSV I IgG Ab HSV II IgG Microbiology Microbiology Results: Microbiology 01/11/25 22:38 Blood - Venous Blood Culture - Final No growth after 5 days. 01/11/25 22:38 Blood - Venous Blood Culture - Final No growth after 5 days. 01/09/25 06:28 Blood - Venous Blood Culture - Final No growth after 5 days. 01/09/25 06:28 Blood - Venous Blood Culture - Final No growth after 5 days. 01/11/25 22:19 Sputum - Suctioned Gram Stain - Final 01/11/25 22:19 Sputum - Suctioned Sputum Culture - Final 01/06/25 23:32 Blood - Venous Blood Culture - Final No growth after 5 days. 01/06/25 23:32 Blood - Venous Blood Culture - Final No growth after 5 days. Progress Note: A&P Assessment and plan (1) Obesity hypoventilation syndrome: Status: Acute (2) Acute on chronic respiratory failure with hypoxia and hypercapnia: Status: Acute Plan Assessment: 44-year-old lady with underlying obesity hypoventilation admitted with dyspnea further complicated by acute on chronic hypercapnia briefly requiring BiPAP support Plan: Neuro: No acute issues. Previously negative workup for myasthenia gravis. Additional neurological is negative including serologies and EMG.. Cardiac: No acute issues. Pulmonary: Recurrent acute on chronic hypercapnic respiratory failure secondary to iatrogenic hyperoxia requiring intubation and ventilatory support further complicated by CO2 narcosis associated pulmonary. Extubated 01/10/2025. Patient with pulmonary aspiration requiring emergent intubation thereafter with refractory hypoxemia requiring bedside bronchoscopy for secretion clearance on 01/11/2025, extubated 01/19/2025. Continues to require BiPAP support on and off, and also high-flow nasal cannula support, improving. Renal: No acute issues. Endo: No acute issues. GI: No acute issues. ID: Acyclovir for genital HSV. Heme/Onc: No acute issues. Psych: No acute issues. Miscellaneous: No acute issues. Prophylaxis: Heparin Diet: Patient refused nasogastric tube, started on PPN. Also with poor compliance speech/swallow evaluations. Quality Stroke Does the patient have a stroke diagnosis?: No VTE Prior VTE?: No VTE Risk Level:: Medical - moderate - high VTE Device Contraindication: Treatment Not Indicated VTE Drug Contraindication: N/A - Med Ordered
[2025-01-23 11:22] LABS: Venous Blood Gas Refer to POC result
[2025-01-23 11:37] LABS: Glucose, Whole Blood 84 mg/dL (60-115)
[2025-01-23 18:14] LABS: Glucose, Whole Blood 110 mg/dL (60-115)
--- NOTE | 2025-01-23 19:34 | PC.NURSE ---
Assumed care of patient at 0700 Neuro: patient alert and oriented x4, able to answer nodding and writing responses, calm. Moments of anxiety noted with repositioning x2 this shift Cardiac: SR, non pitting edema noted to upper and lower extremities. Resp: Dim, High flow on 50L and 40%, SOB with repositioning and at times of rest, requested to return to Bipap multiple times this shift, desatting noted placed on Bipap 16/8 FIO2 25%.? Patient had episode of sudden onset of needing Bipap, whiloe switching to bipap, noted to desat to 82% and ashley into the high 50?s , Bipap placed and increased FIO2 to 40% with no increased O2 sat, had to increase to 60%, O2 sat remained 89-92% for 30 minutes approximately.? GI/: Speech in to do swallow evaluation, pureed diet started with thin liquids. Unable to eat dinner due to de sat Integumentary/Musculoskeletal: turn and repo every 2 hours to maintain skin integrity, pink foam to coccyx and left buttuck, see skin assessment for full details.
[2025-01-23 20:11] LABS: VBG HCO3 31 mmol/L (22-26); VBG O2 % Saturation 82.0 %
[2025-01-23] MEDS: Parenteral Nutrition 1,440 ML 60 ML IV (20:17)
[2025-01-23 21:07] LABS: Venous Blood Gas Refer to POC result
[2025-01-23 23:54] LABS: Glucose, Whole Blood 162 mg/dL (60-115)
[2025-01-24] VITALS (35 sets, daily range): BP systolic 92–170; BP diastolic 49–105; PULSE 98–145; RESP 15–34; TEMP 36.1–37.2; O2SAT 88–99; BMI 40.2
--- NOTE | 2025-01-24 04:34 | PC.NURSE ---
Addendum entered by Junito Kenny RN 01/24/25 06:03: lispro 2 units sc given for poc glucose 165 per provider Addendum entered by Junito Kenny RN 01/24/25 05:54: 05:30 voided 275ml yellow urine via purwik catheter Original Note: CARE ASSUMED 7PM..AWAKE..ALERT..MOUTHS WORDS OR WRITES ON PAPER TO COMMUNICATE..ANXIOUS AT SHIFT CHANGE..MAINTAINED ON BIPAP 03/02 BACK UP RATE 18..FIO2 WEANED FROM 60% TO 40% TO 35% BY RT....SINUS TACH HR 128-134..PROVIDER AWARE...VERSED 1MG IV GIVEN PER PROVIDER..GRADUAL RESTFUL EFFECT AND HR DECREASED TO 106-114...SAO2 REMAINS 95-96% ALTHOUGH RAPIDLY DESATS TO 80'S AND INCREASED WORK OF BREATHING WHEN BRIEFLY OFF MASK FOR ORAL CARE...PER SHIFT REPORT PREVIOUSLY BLADDER SCANNED 15ML AT 4:30 PM AND SHUTDOWN COORDINATOR AWARE...STARTED PPN 60 CC/HR AT 20:17...ACYCLOVIR INFUSED 11PM-12AM...BLADDER SCANNED 12AM FOR 201 ML...NO OUTPUT UP TO 04:30..BLADDER SCANNED 342 ML..PROVIDER AWARE..TO TREND..CONTINUES WITH STOOL FROM VAGINA BUT NONE FROM RECTUM...PROVIDER AWARE..12AM POC GLUCOSE= 162...INSULIN COVERAGE FOR 12AM HELD BY PROVIDER D/T PREVIOUS LOW GLUCOSE LEVELS..TO ASSESS FOR 6AM POC GLUCOSE...BIPAP MAINTAINED OVERNIGHT..UTILIZING FACIAL TO NARES FACE MASK TO AVOI FURTHER IRRITATION TO BRIDGE OF NOSE..RESTFUL
[2025-01-24 04:38] LABS: VBG HCO3 32 mmol/L (22-26); VBG O2 % Saturation 76.0 %
[2025-01-24 04:46] LABS: Hematocrit 31.4 % (37.0-47.0); Hemoglobin 10.5 g/dl (12.0-16.0); Imm Gran Abs Auto 0.04 X10*3/uL (0.00-0.03); Imm Gran Pct Auto 0.4 % (0.0-0.4); Lymphocytes Absolute Auto 0.9 X10*3/uL (1.2-4.9); MANUAL DIFF FLAG NO; Mean Corpuscular HGB Conc 33.4 g/dl (31.0-35.0); Mean Corpuscular Hemoglobin 27.9 pg (27.0-33.0); Mean Corpuscular Volume 83.5 fL (80.0-98.0); NRBC Abs Auto 0.000 X10*3/uL (0.0-0.012); NRBC Pct Auto 0.0 /100WBC (0.0-0.2); Platelet Count 253 X10*3/uL (160-400); Red Blood Count 3.76 X10*6/uL (4.20-5.50); White Blood Count 9.7 X10*3/uL (4.8-10.8)
[2025-01-24 04:53] LABS: Venous Blood Gas Refer to POC result
[2025-01-24 04:56] LABS: Triglycerides 183 mg/dL (<150)
[2025-01-24] MEDS: Albuterol/Iprat 2.5/0.5MG 3 ML AMPUL.NEB INHALE ×3 (05:00→16:58)
[2025-01-24 05:34] LABS: Alanine Aminotransferase 66 U/L (0-31); Albumin Level 3.5 g/dL (3.5-5.0); Alkaline Phosphatase 60 U/L (39-117); Anion Gap 17 (12-20); Aspartate Amino Transferase 35 U/L (5-31); Blood Urea Nitrogen 42 mg/dL (9-16); Calcium 9.0 mg/dL (8.4-10.2); Carbon Dioxide 28 mmol/L (22-29); Chloride 106 mmol/L (96-108); Creatinine Clr Calc Pharmacy 58.3; Estimated Glomerular Filt Rate 40; Magnesium 2.2 mg/dL (1.6-2.6); Potassium 4.1 mmol/L (3.3-5.1); Sodium 147 mmol/L (135-145); Total Protein 5.9 g/dL (6.5-8.0)
[2025-01-24 05:52] LABS: Glucose, Whole Blood 165 mg/dL (60-115)
[2025-01-24 07:49] LABS: Glucose, Whole Blood 143 mg/dL (60-115)
[2025-01-24] MEDS: Lactated Ringers 1,000 ML 999 ML IV (09:52)
--- NOTE | 2025-01-24 10:18 | PC.RT ---
RT took pt off bipap per MD/pt request. RT instructed pt on incentive spirometry and flutter valve CPT. Pt has strong effort with both however is unable to pull enough volume to move incentive and has little flow to vibrate flutter. Pt does have a cough with flutter, weak, moist. RT orally suctioned pt during this process and was able to suction out moderate amounts of thick, clear secretions. After about 20 minutes of exercise, pt became agitated/anxious and wanted to be back on bipap. Pt was placed back on bipap and given scheduled tx through [facility]. Mepilex is applied to nose and pt tolerating bipap at this time.
--- NOTE | 2025-01-24 10:39 | MHC.CLN ---
F/U DISCUSSED AT ROUNDS WITH MD DIET ADVANCED TO PUREED PER MAKEUP INSTRUCTOR HOWEVER PT IS NON COMPLIANT IN ALL ASPECTS OF CARE VERY POOR PO INTAKE PPN TO CONTINUE REVIEWED LABS DISCUSSED WITH PHARMACY RECOMMEND INCREASING PPN TO MAX GOAL RATE 80ML/HR WITH 61G LIPIDS TO PROVIDE 1589 TOTAL KCALS (23KCALS/KG), 192G DEXTROSE, 82G PROTEIN (1.2G/KG) REPLETE LYTES NEEDED
--- NOTE | 2025-01-24 10:45 | P.PNCC_ITS ---
Subjective Subjective Date of Service: 01/24/25 Interval History: 44-year-old lady with underlying morbid obesity with obesity hyperventilation, PCOS, panic disorder, hypothyroidism admitted on 01/07/2025 with dyspnea to telemetry [facility] in treated empirically for community-acquired pneumonia. Hospital course further complicated by iatrogenic hyperoxia resulting in acute hypercapnia requiring BiPAP support. Patient transferred to telemetry [facility] on 01/08/2025. Overnight patient with another episode you iatrogenic hyperoxia with resultant hypercapnia requiring intubation with ventilatory support and transfer to intensive care unit, further complicated by CO2 narcosis associated aspiration. Extubated uneventfully on 01/10/2025. Overnight with pulmonary aspiration requiring emergent intubation, thereafter with hypoxia refractory to ventilatory support requiring emergent bedside bronchoscopy with secretion clearance with improvement in oxygenation. EMG with no evidence of myopathy. Extubated on 01/19/2025. Continues to require BiPAP support on and off, slowly improving. Clinical improvement is also somewhat limited by patient's reluctance not to utilize BiPAP. No events overnight. Critical Care Time (minutes): 0 Physical Exam 2 Vital Signs: Vital Signs: Last Vital Signs Temp 98.9 F 01/24/25 04:35 Pulse 119 H 01/24/25 10:17 Resp 34 H 01/24/25 10:17 BP 123/105 H 01/24/25 10:00 Pulse Ox 88 L 01/24/25 10:00 O2 Del Method BiPAP 01/24/25 10:00 O2 Flow Rate 2 01/23/25 13:00 FiO2 35 01/24/25 10:00 Oxygen Flow Rate 45 01/22/25 12:00 BMI result Body Mass Index 40.2 Const: General: no acute distress, alert and awake Eyes: Sclerae: sclerae normal EOM: EOMs intact bilaterally Neck: Neck: Yes no lymphadenopathy, Yes trachea midline and Yes supple Resp: Effort & Inspection: normal respiratory effort and no respiratory distress Auscultation: clear to auscultation bilaterally Cardio: Rate: tachycardic Rhythm: regular rhythm Heart sounds: no gallops, no murmurs and no rubs GI: Palpation (GI): Soft to palpation and Other GI palpation findings present ( Nontender) Auscultation: normal bowel sounds Extrem: General: Yes no pedal edema, No clubbing and No cyanosis Objective Data Labs 01/24/25 04:33 01/24/25 04:33 Labs: Laboratory Results - last 24 hr 01/19/25 01/23/25 01/23/25 15:18 11:16 17:56 WBC RBC Hgb Hct MCV MCH MCHC RDW Plt Count MPV Immature Gran % (Auto) Neut % (Auto) Lymph % (Auto) [place] % (Auto) Eos % (Auto) Baso % (Auto) Lymph # (Auto) [place] # (Auto) Eos # (Auto) Baso # (Auto) Abs Immat Gran (auto) Absolute Neuts (auto) Absolute Nucleated RBC Nucleated RBC % (auto) VBG pH VBG pCO2 VBG pO2 VBG HCO3 VBG O2 Saturation VBG Base Excess Sodium Potassium Chloride Carbon Dioxide Anion Gap BUN Creatinine Estim Creat Clear Calc Estimated GFR POC Glucose 84 110 Random Glucose Calcium Phosphorus Magnesium Total Bilirubin AST ALT Alkaline Phosphatase Total Protein Albumin Triglycerides Herpes Simplex Culture SEE NOTE A 01/23/25 01/23/25 01/24/25 20:06 23:49 04:33 WBC 9.7 RBC 3.76 L Hgb 10.5 L Hct 31.4 L MCV 83.5 MCH 27.9 MCHC 33.4 RDW 15.6 Plt Count 253 MPV 8.5 L Immature Gran % (Auto) 0.4 Neut % (Auto) 84.7 H Lymph % (Auto) 9.1 L [place] % (Auto) 5.6 Eos % (Auto) 0.1 Baso % (Auto) 0.1 Lymph # (Auto) 0.9 L [place] # (Auto) 0.5 Eos # (Auto) 0.0 Baso # (Auto) 0.0 Abs Immat Gran (auto) 0.04 H Absolute Neuts (auto) 8.2 Absolute Nucleated RBC 0.000 Nucleated RBC % (auto) 0.0 VBG pH 7.39 VBG pCO2 51 VBG pO2 58 VBG HCO3 31 H VBG O2 Saturation 82.0 VBG Base Excess 5.7 Sodium 147 H Potassium 4.1 D Chloride 106 Carbon Dioxide 28 Anion Gap 17 BUN 42 H Creatinine 1.43 H Estim Creat Clear Calc 58.3 Estimated GFR 40 POC Glucose 162 H Random Glucose 182 H Calcium 9.0 Phosphorus 7.6 H Magnesium 2.2 Total Bilirubin 0.7 AST 35 H ALT 66 H Alkaline Phosphatase 60 Total Protein 5.9 L Albumin 3.5 Triglycerides 183 H Herpes Simplex Culture 01/24/25 01/24/25 01/24/25 04:34 05:48 07:44 WBC RBC Hgb Hct MCV MCH MCHC RDW Plt Count MPV Immature Gran % (Auto) Neut % (Auto) Lymph % (Auto) [place] % (Auto) Eos % (Auto) Baso % (Auto) Lymph # (Auto) [place] # (Auto) Eos # (Auto) Baso # (Auto) Abs Immat Gran (auto) Absolute Neuts (auto) Absolute Nucleated RBC Nucleated RBC % (auto) VBG pH 7.45 H VBG pCO2 46 VBG pO2 49 VBG HCO3 32 H VBG O2 Saturation 76.0 VBG Base Excess 7.5 Sodium Potassium Chloride Carbon Dioxide Anion Gap BUN Creatinine Estim Creat Clear Calc Estimated GFR POC Glucose 165 H 143 H Random Glucose Calcium Phosphorus Magnesium Total Bilirubin AST ALT Alkaline Phosphatase Total Protein Albumin Triglycerides Herpes Simplex Culture Microbiology Microbiology Results: Microbiology 01/11/25 22:38 Blood - Venous Blood Culture - Final No growth after 5 days. 01/11/25 22:38 Blood - Venous Blood Culture - Final No growth after 5 days. 01/09/25 06:28 Blood - Venous Blood Culture - Final No growth after 5 days. 01/09/25 06:28 Blood - Venous Blood Culture - Final No growth after 5 days. 01/11/25 22:19 Sputum - Suctioned Gram Stain - Final 01/11/25 22:19 Sputum - Suctioned Sputum Culture - Final 01/06/25 23:32 Blood - Venous Blood Culture - Final No growth after 5 days. 01/06/25 23:32 Blood - Venous Blood Culture - Final No growth after 5 days. Progress Note: A&P Assessment and plan (1) Acute on chronic respiratory failure with hypoxia and hypercapnia: Status: Acute (2) Obesity hypoventilation syndrome: Status: Acute (3) Pulmonary aspiration: Status: Acute Plan Assessment: 44-year-old lady with underlying obesity hypoventilation admitted with dyspnea further complicated by acute on chronic hypercapnia briefly requiring BiPAP support Plan: Neuro: No acute issues. Previously negative workup for myasthenia gravis. Additional neurological is negative including serologies and EMG.. Cardiac: No acute issues. Pulmonary: Recurrent acute on chronic hypercapnic respiratory failure secondary to iatrogenic hyperoxia requiring intubation and ventilatory support further complicated by CO2 narcosis associated pulmonary. Extubated 01/10/2025. Patient with pulmonary aspiration requiring emergent intubation thereafter with refractory hypoxemia requiring bedside bronchoscopy for secretion clearance on 01/11/2025, extubated 01/19/2025. Continues to require BiPAP support on and off, and also high-flow nasal cannula support, improving. Renal: No acute issues. Endo: No acute issues. GI: No acute issues. ID: Acyclovir for genital HSV. Heme/Onc: No acute issues. Psych: No acute issues. Miscellaneous: No acute issues. Prophylaxis: Heparin Diet: PPS supplementation of p.o. diet Quality Stroke Does the patient have a stroke diagnosis?: No VTE Prior VTE?: No VTE Risk Level:: Medical - moderate - high VTE Device Contraindication: Treatment Not Indicated VTE Drug Contraindication: N/A - Med Ordered
--- NOTE | 2025-01-24 10:51 | MHC.SLORD ---
Speech Language Pathology Order Status: RN consulted. Pt back on BIPAP today d/t desats in 70s. SYSTEMS INTEGRATION ENGINEER to return when appropriate to assess pt PO tolerance.
[2025-01-24 12:25] LABS: Glucose, Whole Blood 207 mg/dL (60-115)
--- NOTE | 2025-01-24 15:17 | MHC.SL.SWA ---
Speech Pathologist Impression: Pharyngeal dysphagia, pathology undetermined Risk of Aspiration Due to: Aphonia Respiratory compromise Dysphasia Diet Status: Liquid Consistency and Strategies for Safe Swallow: Liquid Intake Recommendation: Thin Liquid Intake Strategies: Solid Food Consistency: Dietary Recommendations: Pureed (NDD1) Additional Modifications to Solid Foods: Oral Medication Intake: Crushed with Puree Please contact the pharmacy regarding appropriate crushable or liquid drug formulations that are available whenever modified delivery is recommended. Compensatory Strategies and Precautions to be Taken for Safe Swallow: Sitting Upright (90 deg) Small Bites and Sips Rate of Ingestion Change Supervision While Eating and Drinking for Safe Swallow: PO with STREETCAR REPAIRER HELPER Foods to Avoid: Swallowing Recommended Treatments: Compens. Strategy Educat. Vocal Cord Adduction Exer Recommendation for Speech: Inpatient Speech Therapy Comment: Pt seen for dysphagia treatment, pt reclining in chair, sister at bedside. Pt on hi flow oxygen, sating around 95%. Pt communicating through writing, gesturing and speech to text kei on her phone. STREETCAR REPAIRER HELPER introduced discussion of dysphonia and recommendation for formal STREETCAR REPAIRER HELPER evaluation. Pt sister reported pt had speech therapy in [place], pt gestured and mouthed '1 month'. It is unclear if pt had STREETCAR REPAIRER HELPER intervention or other type of therapist in addressing aphonia. Conversion disorder has been identified as possible etiology. RN consulted, reported pt has tolerated meds in puree, and she ate some puree earlier. Pt did not want PO with STREETCAR REPAIRER HELPER, but nodded when offered gingerale. Pt exhibited mild dysphagia with straw sips of gingerale, eliciting breathy cough without changes to O2 sats. Pt communicated with RN that she does not like gingerale. Pt gestured for apple juice, sipping small amounts by straw without overt s/s of aspiration. Pt communicated with RN that she needed to be changed as she had gone to the bathroom. Treatment discontinued at this time. Pt then requested to be fed by staff prior to being changed but after STREETCAR REPAIRER HELPER left room. Frequency/Duration: Daily M-F Date Range for Service Req: Timeline to reassess: Rubber Stamp Die Inspector Clinican/Clinical Fellow: No Supervisory Statement: I have reviewed and agree with the student/clinical fellow's documentation: N/A Speech Language Pathologist: Norma Richards M.S., CCC-STREETCAR REPAIRER HELPER
--- NOTE | 2025-01-24 16:05 | MHC.CM.PN ---
EMR review and per ICU rounds, pt is not medically cleared for discharge due to management of acute on chronic hypercapnic respiratory failure pt remains on BiPAP.
[2025-01-24 17:41] LABS: Glucose, Whole Blood 175 mg/dL (60-115)
[2025-01-24] MEDS: Parenteral Nutrition 1,920 ML 80 ML IV (20:48)
[2025-01-24 23:49] LABS: Glucose, Whole Blood 181 mg/dL (60-115)
[2025-01-25] VITALS (37 sets, daily range): BP systolic 94–179; BP diastolic 55–110; PULSE 78–129; RESP 11–31; TEMP 35.1–36.8; O2SAT 88–100; BMI 40.5
[2025-01-25] MEDS: Albuterol/Iprat 2.5/0.5MG 3 ML AMPUL.NEB INHALE ×4 (00:12→15:53)
[2025-01-25] MEDS: 0.9 % Sodium Chloride Flush 3 ML SYRINGE IVFLUSH ×3 (00:18→22:36)
[2025-01-25 05:37] LABS: VBG HCO3 30 mmol/L (22-26); VBG O2 % Saturation 75.0 %
[2025-01-25 05:44] LABS: Venous Blood Gas Refer to POC result
[2025-01-25 05:48] LABS: MANUAL DIFF FLAG NO
[2025-01-25 05:50] LABS: Hematocrit 32.5 % (37.0-47.0); Hemoglobin 10.5 g/dl (12.0-16.0); Imm Gran Abs Auto 0.07 X10*3/uL (0.00-0.03); Imm Gran Pct Auto 0.7 % (0.0-0.4); Lymphocytes Absolute Auto 0.6 X10*3/uL (1.2-4.9); Mean Corpuscular HGB Conc 32.3 g/dl (31.0-35.0); Mean Corpuscular Hemoglobin 27.8 pg (27.0-33.0); Mean Corpuscular Volume 86.0 fL (80.0-98.0); NRBC Abs Auto 0.000 X10*3/uL (0.0-0.012); NRBC Pct Auto 0.0 /100WBC (0.0-0.2); Platelet Count 225 X10*3/uL (160-400); Red Blood Count 3.78 X10*6/uL (4.20-5.50); White Blood Count 9.9 X10*3/uL (4.8-10.8)
[2025-01-25 06:05] LABS: Alanine Aminotransferase 47 U/L (0-31); Albumin Level 3.6 g/dL (3.5-5.0); Alkaline Phosphatase 66 U/L (39-117); Anion Gap 17 (12-20); Aspartate Amino Transferase 28 U/L (5-31); Blood Urea Nitrogen 61 mg/dL (9-16); Calcium 9.4 mg/dL (8.4-10.2); Carbon Dioxide 27 mmol/L (22-29); Chloride 106 mmol/L (96-108); Creatinine Clr Calc Pharmacy 38.7; Estimated Glomerular Filt Rate 25; Magnesium 2.7 mg/dL (1.6-2.6); Potassium 5.1 mmol/L (3.3-5.1); Sodium 145 mmol/L (135-145); Total Protein 6.2 g/dL (6.5-8.0)
[2025-01-25 06:14] LABS: Glucose, Whole Blood 176 mg/dL (60-115)
--- NOTE | 2025-01-25 10:06 | MHC.CM.PN ---
Pt remains in ICU on alternating hi flow trials and Bipap. MD to order pulmonary function tests for respiratory muscle impairment. If pt requires intubation again (#3) pt will need a peg/trach and LTACH LOC. CM to follow for d/c planning needs.
--- NOTE | 2025-01-25 10:34 | P.PNCC_ITS ---
Subjective Subjective Date of Service: 01/25/25 Interval History: 44-year-old lady with underlying morbid obesity with obesity hyperventilation, PCOS, panic disorder, hypothyroidism admitted on 01/07/2025 with dyspnea to telemetry [facility] in treated empirically for community-acquired pneumonia. Hospital course further complicated by iatrogenic hyperoxia resulting in acute hypercapnia requiring BiPAP support. Patient transferred to telemetry [facility] on 01/08/2025. Overnight patient with another episode you iatrogenic hyperoxia with resultant hypercapnia requiring intubation with ventilatory support and transfer to intensive care unit, further complicated by CO2 narcosis associated aspiration. Extubated uneventfully on 01/10/2025. Overnight with pulmonary aspiration requiring emergent intubation, thereafter with hypoxia refractory to ventilatory support requiring emergent bedside bronchoscopy with secretion clearance with improvement in oxygenation. EMG with no evidence of myopathy. Extubated on 01/19/2025. Continues to require BiPAP support on and off. Overall with what appears to be poor respiratory strength resulting in recurrent aspirations while on BiPAP support. No events overnight. Critical Care Time (minutes): 45 Physical Exam 2 Vital Signs: Vital Signs: Last Vital Signs Temp 98.2 F 01/25/25 03:56 Pulse 114 H 01/25/25 10:00 Resp 31 H 01/25/25 10:00 BP 127/74 01/25/25 10:00 Pulse Ox 96 01/25/25 10:00 O2 Del Method BiPAP 01/25/25 10:00 O2 Flow Rate 2 01/23/25 13:00 FiO2 35 01/25/25 10:00 Oxygen Flow Rate 45 01/22/25 12:00 BMI result Body Mass Index 40.5 Const: General: no acute distress and alert Nutritional Appearance: not obese Orientation/consciousness: Other orientation findings ( oriented) HEENT: Head: Yes atraumatic Eyes: General: appearance normal, both eyes and all related structures S clerae: sclerae normal EOM: EOMs intact bilaterally Neck: Neck: Yes supple Lymphatic: no lymphadenopathy noted Resp: Effort & Inspection: normal respiratory effort and tachypneic A uscultation: crackles (Bilateral) Cardio: Rate: tachycardic Rhythm: regular rhythm Heart sounds: no gallops, no murmurs and no rubs GI: Palpation (GI): Soft to palpation and Other GI palpation findings present ( Nontender) Auscultation: normal bowel sounds Skin: General skin exam: other ( warm) Extrem: General: No clubbing, No cyanosis and Yes edema (Trace bilateral) Objective Data Labs 01/25/25 05:28 01/25/25 05:28 Labs: Laboratory Results - last 24 hr 01/24/25 01/24/25 01/24/25 12:22 17:37 23:44 WBC RBC Hgb Hct MCV MCH MCHC RDW Plt Count MPV Immature Gran % (Auto) Neut % (Auto) Lymph % (Auto) [place] % (Auto) Eos % (Auto) Baso % (Auto) Lymph # (Auto) [place] # (Auto) Eos # (Auto) Baso # (Auto) Abs Immat Gran (auto) Absolute Neuts (auto) Absolute Nucleated RBC Nucleated RBC % (auto) VBG pH VBG pCO2 VBG pO2 VBG HCO3 VBG O2 Saturation VBG Base Excess Sodium Potassium Chloride Carbon Dioxide Anion Gap BUN Creatinine Estim Creat Clear Calc Estimated GFR POC Glucose 207 H 175 H 181 H Random Glucose Calcium Phosphorus Magnesium Total Bilirubin AST ALT Alkaline Phosphatase Total Protein Albumin 01/25/25 01/25/25 01/25/25 05:28 05:34 05:55 WBC 9.9 RBC 3.78 L Hgb 10.5 L Hct 32.5 L MCV 86.0 MCH 27.8 MCHC 32.3 RDW 15.9 Plt Count 225 MPV 8.9 L Immature Gran % (Auto) 0.7 H Neut % (Auto) 87.9 H Lymph % (Auto) 5.8 L [place] % (Auto) 4.8 Eos % (Auto) 0.7 Baso % (Auto) 0.1 Lymph # (Auto) 0.6 L [place] # (Auto) 0.5 Eos # (Auto) 0.1 Baso # (Auto) 0.0 Abs Immat Gran (auto) 0.07 H Absolute Neuts (auto) 8.7 H Absolute Nucleated RBC 0.000 Nucleated RBC % (auto) 0.0 VBG pH 7.41 VBG pCO2 47 VBG pO2 53 VBG HCO3 30 H VBG O2 Saturation 75.0 VBG Base Excess 5.1 Sodium 145 Potassium 5.1 D Chloride 106 Carbon Dioxide 27 Anion Gap 17 BUN 61 H Creatinine 2.16 H Estim Creat Clear Calc 38.7 Estimated GFR 25 POC Glucose 176 H Random Glucose 171 H Calcium 9.4 Phosphorus 6.0 H Magnesium 2.7 H Total Bilirubin 0.6 AST 28 ALT 47 H Alkaline Phosphatase 66 Total Protein 6.2 L Albumin 3.6 Microbiology Microbiology Results: Microbiology 01/11/25 22:38 Blood - Venous Blood Culture - Final No growth after 5 days. 01/11/25 22:38 Blood - Venous Blood Culture - Final No growth after 5 days. 01/09/25 06:28 Blood - Venous Blood Culture - Final No growth after 5 days. 01/09/25 06:28 Blood - Venous Blood Culture - Final No growth after 5 days. 01/11/25 22:19 Sputum - Suctioned Gram Stain - Final 01/11/25 22:19 Sputum - Suctioned Sputum Culture - Final 01/06/25 23:32 Blood - Venous Blood Culture - Final No growth after 5 days. 01/06/25 23:32 Blood - Venous Blood Culture - Final No growth after 5 days. Progress Note: A&P Assessment and plan (1) Acute on chronic respiratory failure with hypoxia and hypercapnia: Status: Acute (2) Muscle weakness: Status: Acute Plan Assessment: 44-year-old lady with underlying obesity hypoventilation admitted with dyspnea further complicated by acute on chronic hypercapnia briefly requiring BiPAP support Plan: Neuro: No acute issues. Previously negative workup for myasthenia gravis. Additional neurological is negative including serologies and EMG.. Cardiac: No acute issues. Pulmonary: Recurrent acute on chronic hypercapnic respiratory failure secondary to iatrogenic hyperoxia requiring intubation and ventilatory support further complicated by CO2 narcosis associated pulmonary. Extubated 01/10/2025. Patient with pulmonary aspiration requiring emergent intubation thereafter with refractory hypoxemia requiring bedside bronchoscopy for secretion clearance on 01/11/2025, extubated 01/19/2025. Continues to require BiPAP support on and off, and also high-flow nasal cannula support, improving. Though, with underlying respiratory muscle weakness with negative inspiratory force only at 8 cm of water Renal: Acute kidney injury, non oliguric. Continue to monitor renal indices and urine output. Endo: No acute issues. GI: No acute issues. ID: Acyclovir f stopped secondary to development of acute kidney injury. Heme/Onc: No acute issues. Psych: No acute issues. Miscellaneous: No acute issues. Prophylaxis: Heparin Diet: PPN supplementation of p.o. diet Critical care time: 45 minutes Quality Stroke Does the patient have a stroke diagnosis?: No VTE Prior VTE?: No VTE Risk Level:: Medical - moderate - high VTE Device Contraindication: Treatment Not Indicated VTE Drug Contraindication: N/A - Med Ordered
--- NOTE | 2025-01-25 11:00 | MHC.CLN ---
F/U DISCUSSED AT ROUNDS WITH DIET RX: PUREED PER SUPPLIER MANAGER POOR PO INTAKE PPN TO CONTINUE REVIEWED LABS DISCUSSED WITH PHARMACY CONTINUE PPN AT MAX GOAL RATE OF 80ML/HR WITH 61G LIPIDS PROVIDES 1589 TOTAL KCALS (23KCALS/KG), 192G DEXTROSE, 82G PROTEIN (1.2G/KG) REPLETE LYTES NEEDED
[2025-01-25 11:50] LABS: Glucose, Whole Blood 189 mg/dL (60-115)
[2025-01-25 18:46] LABS: Glucose, Whole Blood 168 mg/dL (60-115)
--- NOTE | 2025-01-25 21:29 | W.PM.CCHP ---
Procedures Date of Service Date of Service: 01/25/25 <Melissa Sterling NP - Last Filed: 01/25/25 21:51> 01/26/25 <Duy Valdovinos MD - Last Filed: 01/26/25 11:38> Intubation Intubation Comments: The patient developed progressive respiratory fatigue despite BiPAP and appeared to be grossly hypoventilating causing concern for imminent respiratory arrest. The BP was 180s systolic, HR 100?s. SpO2 low 90s. She was preoxygenated with BiPAP 100%.? RSI was carried out with the meds below. The #3 GlideScope was placed in the mouth, the glottis was easily visualized. First attempt with 7.5 ETT unsuccessful due to swelling in the airway. The trachea was intubated with a 7.0 ETT via indirect video visualization. Immediately on intubation, voluminous clear/white secretions filled the endotracheal tube and were suctioned with the wall suction and then In-line catheter. SpO2 immediately radha into the high 90s. The BP dropped from the preprocedure level requiring pressor support. The tube was secured at the 24 cm at upper lip. <Melissa Sterling NP - Last Filed: 01/25/25 21:51> Consent for Procedure: Elective - informed consent obtained (niece (HCP) at bedside signed informed consent) <Melissa Sterling NP - Last Filed: 01/25/25 21:51> Time out performed: Yes <Melissa Sterling NP - Last Filed: 01/25/25 21:51> Sedative: propofol <Melissa Sterling NP - Last Filed: 01/25/25 21:51> Mg given: 200 <Melissa Sterling NP - Last Filed: 01/25/25 21:51> Paralytic: rocuronium <Melissa Sterling NP - Last Filed: 01/25/25 21:51> Mg given: 100 <Melissa Sterling NP - Last Filed: 01/25/25 21:51> Laryngoscope: fiber optic video scope <Melissa Sterling NP - Last Filed: 01/25/25 21:51> ET tube size: 7 <Melissa Sterling NP - Last Filed: 01/25/25 21:51> ET tube uncuffed: Yes <JAXSON Nolan Last Filed: 01/25/25 21:51> Tube secured depth (cm): 24 <JAXSON Nolan Last Filed: 01/25/25 21:51> Tube secured location: lips <JAXSON Nolan Last Filed: 01/25/25 21:51> Tube placement confirmation: visualized tube passing through cords, equal breath sounds bilaterally, no breath sounds over epigastrium and confirmation by capnometry <JAXSON Nolan Last Filed: 01/25/25 21:51> Patient tolerated procedure: well <JAXSON Nolan Last Filed: 01/25/25 21:51> Intubation complications: difficult intubation <JAXSON Nolan Last Filed: 01/25/25 21:51>
[2025-01-25] MEDS: Parenteral Nutrition 1,920 ML 80 ML IV (21:56)
[2025-01-25] MEDS: Chlorhexidine Gluc Oral Rinse 15 ML MOUTHWASH BUCCAL (22:37)
[2025-01-25 22:49] LABS: ABG Refer to POC result
[2025-01-25 22:51] LABS: ABG HCO3 32 mmol/L (22-26); ABG O2 % Saturation 97.0 %
--- NOTE | 2025-01-25 23:10 | PC.NURSE ---
CARE ASSUMED 7PM...PATIENT REMAINS ON BIPAP 05/02..AWAKE..COMMUNICATES WITH WRITING AND/OR ON CELLPHONE... PER SHIFT REPORT BP TRENDING UPWARDS..172/110 TO 185/108..SINUS TACH HR 100'S..INCREASED WORK OF BREATHING DESPITE BIPAP...PROVIDER AND RT AT BEDSIDE...ABG'S DRAWN BY RT....NIECE AT BEDSIDE AT ..PATIENT STAUS REVIEWED WITH NIECE AND PATIENT..DECISION TO INTUBATE ..INTUBATED BY PROVIDER WITH #7.0 ETT 24CM....PROPOFOL 50MG IV X4 DOSES (TOTAL 200MG) AND RORCURONIUM 50 MG IV X2 DOSES (TOTAL 100MG) FOR INTUBATION...LEVOPHED DRIP STARTED 0.05 MCG/KG/MIN PER PROVIDER AND PROPOFOL DRIP STARTED 30 MCG/KG/MIN AND TITRATED TO 40 MCG/KG/MIN PER MAR..OG-TUBE PLACED..PORTABLE CXR DONE AND REVIEWED BY PROVIDER....PPN 80 CC/HR..PURWIK COLLECTING YELLOW URINE..CONTINIUES WITH SMALL AMOUNT STOOL FROM VAGINA AND NONE RECTALLY...CURRENTLY NSR HR 80'S..NO ECTOPY
[2025-01-25 23:39] LABS: Glucose, Whole Blood 188 mg/dL (60-115)
[2025-01-26] VITALS (40 sets, daily range): BP systolic 81–159; BP diastolic 42–92; PULSE 18–107; RESP 18–24; TEMP 34.7–37.7; O2SAT 20–100; BMI 40.7
[2025-01-26] MEDS: Albuterol/Iprat 2.5/0.5MG 3 ML AMPUL.NEB INHALE ×4 (00:30→15:39)
[2025-01-26 05:01] LABS: VBG HCO3 28 mmol/L (22-26); VBG O2 % Saturation 95.0 %
[2025-01-26 05:02] LABS: Venous Blood Gas Refer to POC result
[2025-01-26 05:14] LABS: MANUAL DIFF FLAG NO
[2025-01-26 05:17] LABS: Hematocrit 29.4 % (37.0-47.0); Hemoglobin 9.5 g/dl (12.0-16.0); Imm Gran Abs Auto 0.09 X10*3/uL (0.00-0.03); Imm Gran Pct Auto 0.8 % (0.0-0.4); Lymphocytes Absolute Auto 1.0 X10*3/uL (1.2-4.9); Mean Corpuscular HGB Conc 32.3 g/dl (31.0-35.0); Mean Corpuscular Hemoglobin 28.5 pg (27.0-33.0); Mean Corpuscular Volume 88.3 fL (80.0-98.0); NRBC Abs Auto 0.000 X10*3/uL (0.0-0.012); NRBC Pct Auto 0.0 /100WBC (0.0-0.2); Platelet Count 234 X10*3/uL (160-400); Red Blood Count 3.33 X10*6/uL (4.20-5.50); White Blood Count 10.8 X10*3/uL (4.8-10.8)
[2025-01-26 05:38] LABS: Alanine Aminotransferase 31 U/L (0-31); Albumin Level 3.4 g/dL (3.5-5.0); Alkaline Phosphatase 74 U/L (39-117); Anion Gap 18 (12-20); Aspartate Amino Transferase 21 U/L (5-31); Blood Urea Nitrogen 70 mg/dL (9-16); Calcium 10.1 mg/dL (8.4-10.2); Carbon Dioxide 23 mmol/L (22-29); Chloride 106 mmol/L (96-108); Creatinine Clr Calc Pharmacy 40.8; Estimated Glomerular Filt Rate 26; Magnesium 2.8 mg/dL (1.6-2.6); Potassium 5.5 mmol/L (3.3-5.1); Sodium 141 mmol/L (135-145); Total Protein 6.2 g/dL (6.5-8.0)
[2025-01-26 05:45] LABS: Glucose, Whole Blood 202 mg/dL (60-115)
--- NOTE | 2025-01-26 07:51 | MHC.SLORD ---
Speech Language Pathology Order Status: Patient intubated 01/25- Dysphagia treatment/re-eval deferred 24 hours post-extubation.
[2025-01-26] MEDS: 0.9 % Sodium Chloride Flush 3 ML SYRINGE IVFLUSH ×2 (08:12→14:31)
[2025-01-26] MEDS: Chlorhexidine Gluc Oral Rinse 15 ML MOUTHWASH BUCCAL ×3 (08:12→20:40)
--- NOTE | 2025-01-26 10:52 | MHC.CLN ---
PT IS RE-INTUBATED AND SEDATED DISCUSSED AT ROUNDS WITH MD RECOMMEND TF NEPRO AT MAX GOAL RATE 30ML/HR WITH 240ML FREE WATER Q 6 HRS TO PROVIDE 864KCALS (1712KCALS WITH SEDATION; 25KCALS/KG), 39G PROTEIN, 1309ML TOTAL WATER FROM FORMULA AND FLUSHES MONITOR TOLERANCE AND LYTES SEE FULL ASSESSMENT
[2025-01-26 11:23] LABS: Glucose, Whole Blood 167 mg/dL (60-115)
--- NOTE | 2025-01-26 11:38 | P.PNCC_ITS ---
Subjective Subjective Date of Service: 01/26/25 Interval History: 44-year-old lady with underlying morbid obesity with obesity hyperventilation, PCOS, panic disorder, hypothyroidism admitted on 01/07/2025 with dyspnea to telemetry [facility] in treated empirically for community-acquired pneumonia. Hospital course further complicated by iatrogenic hyperoxia resulting in acute hypercapnia requiring BiPAP support. Patient transferred to telemetry [facility] on 01/08/2025. Overnight patient with another episode you iatrogenic hyperoxia with resultant hypercapnia requiring intubation with ventilatory support and transfer to intensive care unit, further complicated by CO2 narcosis associated aspiration. Extubated uneventfully on 01/10/2025. Overnight with pulmonary aspiration requiring emergent intubation, thereafter with hypoxia refractory to ventilatory support requiring emergent bedside bronchoscopy with secretion clearance with improvement in oxygenation. EMG with no evidence of myopathy. Extubated on 01/19/2025. Continues to require BiPAP support on and off. Overall with what appears to be poor respiratory strength resulting in recurrent aspirations while on BiPAP support necessitating re-intubation overnight on 01/26/2025. Critical Care Time (minutes): 60 Physical Exam 2 Vital Signs: Vital Signs: Last Vital Signs Temp 99.7 F 01/26/25 11:00 Pulse 91 01/26/25 11:16 Resp 18 01/26/25 11:16 BP 94/56 L 01/26/25 11:00 Pulse Ox 93 01/26/25 11:00 O2 Del Method Mechanical Ventil ation 01/26/25 11:00 O2 Flow Rate 2 01/23/25 13:00 FiO2 35 01/26/25 11:16 Oxygen Flow Rate 45 01/22/25 12:00 BMI result Body Mass Index 40.7 Const: General: no acute distress and other (Sedated on ventilatory support) Eyes: Sclerae: sclerae normal EOM: EOMs intact bilaterally Neck: Neck: Yes no lymphadenopathy, Yes trachea midline and Yes supple Resp: Effort & Inspection: normal respiratory effort and no respiratory distress Auscultation: clear to auscultation bilaterally Cardio: Rate: regular rate Rhythm: regular rhythm Heart sounds: no gallops, no murmurs and no rubs GI: Palpation (GI): Soft to palpation and Other GI palpation findings present ( Nontender) Auscultation: normal bowel sounds Extrem: General: No clubbing, No cyanosis and Yes edema (Trace bilateral) Objective Data Labs 01/26/25 04:53 01/26/25 04:53 Labs: Laboratory Results - last 24 hr 01/25/25 01/25/25 01/25/25 11:46 18:42 19:34 WBC RBC Hgb Hct MCV MCH MCHC RDW Plt Count MPV Immature Gran % (Auto) Neut % (Auto) Lymph % (Auto) [place] % (Auto) Eos % (Auto) Baso % (Auto) Lymph # (Auto) [place] # (Auto) Eos # (Auto) Baso # (Auto) Abs Immat Gran (auto) Absolute Neuts (auto) Absolute Nucleated RBC Nucleated RBC % (auto) O2 Saturation 97.0 ABG pH at Pt Temp 7.33 L ABG pCO2 at Pt Temp 60 H* ABG pO2 at Pt Temp 101 ABG HCO3 32 H ABG Base Excess (Actual) 5.0 VBG pH Cancelled VBG pCO2 Cancelled VBG pO2 Cancelled VBG HCO3 Cancelled VBG O2 Saturation Cancelled VBG Base Excess Cancelled Sodium Potassium Chloride Carbon Dioxide Anion Gap BUN Creatinine Estim Creat Clear Calc Estimated GFR POC Glucose 189 H 168 H Random Glucose Calcium Phosphorus Magnesium Total Bilirubin AST ALT Alkaline Phosphatase Total Protein Albumin 01/25/25 01/26/25 01/26/25 23:33 04:53 04:56 WBC 10.8 RBC 3.33 L Hgb 9.5 L Hct 29.4 L MCV 88.3 MCH 28.5 MCHC 32.3 RDW 15.8 Plt Count 234 MPV 9.2 L Immature Gran % (Auto) 0.8 H Neut % (Auto) 83.2 H Lymph % (Auto) 9.1 L [place] % (Auto) 5.6 Eos % (Auto) 1.2 Baso % (Auto) 0.1 Lymph # (Auto) 1.0 L [place] # (Auto) 0.6 Eos # (Auto) 0.1 Baso # (Auto) 0.0 Abs Immat Gran (auto) 0.09 H Absolute Neuts (auto) 9.0 H Absolute Nucleated RBC 0.000 Nucleated RBC % (auto) 0.0 O2 Saturation ABG pH at Pt Temp ABG pCO2 at Pt Temp ABG pO2 at Pt Temp ABG HCO3 ABG Base Excess (Actual) VBG pH 7.46 H VBG pCO2 39 VBG pO2 84 VBG HCO3 28 H VBG O2 Saturation 95.0 VBG Base Excess 4.7 Sodium 141 Potassium 5.5 H Chloride 106 Carbon Dioxide 23 Anion Gap 18 BUN 70 H Creatinine 2.06 H Estim Creat Clear Calc 40.8 Estimated GFR 26 POC Glucose 188 H Random Glucose 201 H Calcium 10.1 D Phosphorus 2.5 L Magnesium 2.8 H Total Bilirubin 0.4 AST 21 ALT 31 Alkaline Phosphatase 74 Total Protein 6.2 L Albumin 3.4 L 01/26/25 01/26/25 05:42 11:10 WBC RBC Hgb Hct MCV MCH MCHC RDW Plt Count MPV Immature Gran % (Auto) Neut % (Auto) Lymph % (Auto) [place] % (Auto) Eos % (Auto) Baso % (Auto) Lymph # (Auto) [place] # (Auto) Eos # (Auto) Baso # (Auto) Abs Immat Gran (auto) Absolute Neuts (auto) Absolute Nucleated RBC Nucleated RBC % (auto) O2 Saturation ABG pH at Pt Temp ABG pCO2 at Pt Temp ABG pO2 at Pt Temp ABG HCO3 ABG Base Excess (Actual) VBG pH VBG pCO2 VBG pO2 VBG HCO3 VBG O2 Saturation VBG Base Excess Sodium Potassium Chloride Carbon Dioxide Anion Gap BUN Creatinine Estim Creat Clear Calc Estimated GFR POC Glucose 202 H 167 H Random Glucose Calcium Phosphorus Magnesium Total Bilirubin AST ALT Alkaline Phosphatase Total Protein Albumin Microbiology Microbiology Results: Microbiology 01/11/25 22:38 Blood - Venous Blood Culture - Final No growth after 5 days. 01/11/25 22:38 Blood - Venous Blood Culture - Final No growth after 5 days. 01/09/25 06:28 Blood - Venous Blood Culture - Final No growth after 5 days. 01/09/25 06:28 Blood - Venous Blood Culture - Final No growth after 5 days. 01/11/25 22:19 Sputum - Suctioned Gram Stain - Final 01/11/25 22:19 Sputum - Suctioned Sputum Culture - Final 01/06/25 23:32 Blood - Venous Blood Culture - Final No growth after 5 days. 01/06/25 23:32 Blood - Venous Blood Culture - Final No growth after 5 days. Progress Note: A&P Assessment and plan (1) Muscle weakness: Status: Acute (2) Pulmonary aspiration: Status: Acute (3) Acute on chronic respiratory failure with hypoxia and hypercapnia: Status: Acute (4) Obesity hypoventilation syndrome: Status: Acute Plan Assessment: 44-year-old lady with underlying obesity hypoventilation admitted with dyspnea further complicated by acute on chronic hypercapnia briefly requiring BiPAP support Plan: Neuro: No acute issues. Previously negative workup for myasthenia gravis. Additional neurological is negative including serologies and EMG.. Cardiac: No acute issues. Pulmonary: Recurrent acute on chronic hypercapnic respiratory failure secondary to iatrogenic hyperoxia requiring intubation and ventilatory support further complicated by CO2 narcosis associated pulmonary. Extubated 01/10/2025. Patient with pulmonary aspiration requiring emergent intubation thereafter with refractory hypoxemia requiring bedside bronchoscopy for secretion clearance on 01/11/2025, extubated 01/19/2025 with underlying respiratory muscle weakness with negative inspiratory force only at 8 cm of water. Overnight patient with worsening aspiration requiring re-intubation. Will likely require tracheostomy/parenteral gastrostomy. Renal: Acute kidney injury, non oliguric. Continue to monitor renal indices and urine output. Endo: No acute issues. GI: No acute issues. ID: Acyclovir stopped secondary to development of acute kidney injury. Heme/Onc: No acute issues. Psych: No acute issues. Miscellaneous: No acute issues. Prophylaxis: Heparin, famotidine Diet: Tube feeds Quality Stroke Does the patient have a stroke diagnosis?: No VTE Prior VTE?: No VTE Risk Level:: Medical - moderate - high VTE Device Contraindication: Treatment Not Indicated VTE Drug Contraindication: N/A - Med Ordered
--- NOTE | 2025-01-26 14:25 | MHC.CM.PN ---
PER MD ROUNDS, EMR REVIEW, PT WAS RE-INTUBATED OVERNIGHT. WILL LIKELY REQUIRE TRACH/PEG PLACEMENT NEXT WEEK. REFERRAL SENT TO [facility] FOR REVIEW [facility]. CM WILL CONTINUE TO FOLLOW FOR PLAN.
[2025-01-26 17:39] LABS: Glucose, Whole Blood 109 mg/dL (60-115)
--- NOTE | 2025-01-26 19:18 | PC.NURSE ---
Assumed care at 0700- Pt. remains intubated and sedated per MAR. +C/G/P response, ZAMORA, does not open eyes, track, or follow commands. SR/ST on tele, HR 90s-110s. Remained off norepinerphrine gtt over duration of this shift. tolerating ACVC vent settings- see vent assessment. TF started per order. purewick in place draining CYU. Oral care and repositioning performed Q2 HR. Family at bedside, updated by this RN. Shift report given to Inez AMBROCIO. Plan of care ongoing.
[2025-01-27] VITALS (38 sets, daily range): BP systolic 81–144; BP diastolic 43–82; PULSE 17–102; RESP 16–84; TEMP 34.9–37.7; O2SAT 94–100; BMI 36.1
[2025-01-27] MEDS: Albuterol/Iprat 2.5/0.5MG 3 ML AMPUL.NEB INHALE ×4 (00:13→20:34)
[2025-01-27] MEDS: 0.9 % Sodium Chloride Flush 3 ML SYRINGE IVFLUSH ×4 (00:35→23:28)
[2025-01-27 00:50] LABS: Glucose, Whole Blood 142 mg/dL (60-115)
[2025-01-27 05:23] LABS: VBG HCO3 25 mmol/L (22-26); VBG O2 % Saturation 98.0 %
[2025-01-27 05:31] LABS: Venous Blood Gas Refer to POC result
[2025-01-27 05:40] LABS: MANUAL DIFF FLAG NO
[2025-01-27 05:42] LABS: Hematocrit 30.2 % (37.0-47.0); Hemoglobin 10.4 g/dl (12.0-16.0); Imm Gran Abs Auto 0.07 X10*3/uL (0.00-0.03); Imm Gran Pct Auto 0.6 % (0.0-0.4); Lymphocytes Absolute Auto 1.7 X10*3/uL (1.2-4.9); Mean Corpuscular HGB Conc 34.4 g/dl (31.0-35.0); Mean Corpuscular Hemoglobin 28.3 pg (27.0-33.0); Mean Corpuscular Volume 82.1 fL (80.0-98.0); NRBC Abs Auto 0.000 X10*3/uL (0.0-0.012); NRBC Pct Auto 0.0 /100WBC (0.0-0.2); Platelet Count 263 X10*3/uL (160-400); Red Blood Count 3.68 X10*6/uL (4.20-5.50); White Blood Count 12.3 X10*3/uL (4.8-10.8)
[2025-01-27 06:00] LABS: Alanine Aminotransferase 22 U/L (0-31); Albumin Level 3.5 g/dL (3.5-5.0); Alkaline Phosphatase 88 U/L (39-117); Anion Gap 16 (12-20); Aspartate Amino Transferase 16 U/L (5-31); Blood Urea Nitrogen 51 mg/dL (9-16); Calcium 10.3 mg/dL (8.4-10.2); Carbon Dioxide 25 mmol/L (22-29); Chloride 103 mmol/L (96-108); Creatinine Clr Calc Pharmacy 66.7; Estimated Glomerular Filt Rate 49; Magnesium 2.1 mg/dL (1.6-2.6); Potassium 4.4 mmol/L (3.3-5.1); Sodium 140 mmol/L (135-145); Total Protein 6.6 g/dL (6.5-8.0)
[2025-01-27] MEDS: Chlorhexidine Gluc Oral Rinse 15 ML MOUTHWASH BUCCAL ×3 (09:17→20:16)
--- NOTE | 2025-01-27 10:39 | P.PNCC_ITS ---
Subjective Subjective Date of Service: 01/27/25 Interval History: 44-year-old lady with underlying morbid obesity with obesity hyperventilation, PCOS, panic disorder, hypothyroidism admitted on 01/07/2025 with dyspnea to telemetry [facility] in treated empirically for community-acquired pneumonia. Hospital course further complicated by iatrogenic hyperoxia resulting in acute hypercapnia requiring BiPAP support. Patient transferred to telemetry [facility] on 01/08/2025. Overnight patient with another episode you iatrogenic hyperoxia with resultant hypercapnia requiring intubation with ventilatory support and transfer to intensive care unit, further complicated by CO2 narcosis associated aspiration. Extubated uneventfully on 01/10/2025. Overnight with pulmonary aspiration requiring emergent intubation, thereafter with hypoxia refractory to ventilatory support requiring emergent bedside bronchoscopy with secretion clearance with improvement in oxygenation. EMG with no evidence of myopathy. Extubated on 01/19/2025. Continues to require BiPAP support on and off. Overall with what appears to be poor respiratory strength resulting in recurrent aspirations while on BiPAP support necessitating re-intubation overnight on 01/26/2025. No events overnight. Now on minimal ventilatory support. Critical Care Time (minutes): 45 Physical Exam 2 Vital Signs: Vital Signs: Last Vital Signs Temp 98.8 F 01/27/25 10:00 Pulse 72 01/27/25 10:00 Resp 17 01/27/25 10:00 BP 108/58 L 01/27/25 10:00 Pulse Ox 98 01/27/25 10:00 O2 Del Method Mechanical Ventil ation 01/27/25 10:00 O2 Flow Rate 2 01/23/25 13:00 FiO2 30 01/27/25 10:00 Oxygen Flow Rate 45 01/22/25 12:00 BMI result Body Mass Index 36.1 Const: General: no acute distress HEENT: Head: Yes atraumatic Eyes: General: appearance normal, both eyes and all related structures S clerae: sclerae normal EOM: EOMs intact bilaterally Neck: Neck: Yes supple Lymphatic: no lymphadenopathy noted Resp: Auscultation: clear to auscultation bilaterally Cardio: Rate: regular rate Rhythm: regular rhythm Heart sounds: no gallops, no murmurs and no rubs GI: Palpation (GI): Soft to palpation and Other GI palpation findings present ( Nontender) Auscultation: normal bowel sounds Skin: General skin exam: other ( warm) Extrem: General: No clubbing, No cyanosis and No edema Objective Data Labs 01/27/25 05:15 01/27/25 05:15 Labs: Laboratory Results - last 24 hr 01/26/25 01/26/25 01/26/25 11:10 17:35 23:46 WBC RBC Hgb Hct MCV MCH MCHC RDW Plt Count MPV Immature Gran % (Auto) Neut % (Auto) Lymph % (Auto) [place] % (Auto) Eos % (Auto) Baso % (Auto) Lymph # (Auto) [place] # (Auto) Eos # (Auto) Baso # (Auto) Abs Immat Gran (auto) Absolute Neuts (auto) Absolute Nucleated RBC Nucleated RBC % (auto) VBG pH VBG pCO2 VBG pO2 VBG HCO3 VBG O2 Saturation VBG Base Excess Sodium Potassium Chloride Carbon Dioxide Anion Gap BUN Creatinine Estim Creat Clear Calc Estimated GFR POC Glucose 167 H 109 142 H Random Glucose Calcium Phosphorus Magnesium Total Bilirubin AST ALT Alkaline Phosphatase Total Protein Albumin 01/27/25 01/27/25 05:15 05:19 WBC 12.3 H RBC 3.68 L Hgb 10.4 L Hct 30.2 L MCV 82.1 D MCH 28.3 MCHC 34.4 RDW 15.9 Plt Count 263 MPV 9.3 L Immature Gran % (Auto) 0.6 H Neut % (Auto) 77.5 H Lymph % (Auto) 13.6 L [place] % (Auto) 5.7 Eos % (Auto) 2.4 Baso % (Auto) 0.2 Lymph # (Auto) 1.7 [place] # (Auto) 0.7 Eos # (Auto) 0.3 Baso # (Auto) 0.0 Abs Immat Gran (auto) 0.07 H Absolute Neuts (auto) 9.6 H Absolute Nucleated RBC 0.000 Nucleated RBC % (auto) 0.0 VBG pH 7.51 H VBG pCO2 30 VBG pO2 96 VBG HCO3 25 VBG O2 Saturation 98.0 VBG Base Excess 2.8 Sodium 140 Potassium 4.4 Chloride 103 Carbon Dioxide 25 Anion Gap 16 BUN 51 H Creatinine 1.18 Estim Creat Clear Calc 66.7 Estimated GFR 49 POC Glucose Random Glucose 177 H Calcium 10.3 H Phosphorus 3.4 Magnesium 2.1 Total Bilirubin 0.5 AST 16 ALT 22 Alkaline Phosphatase 88 Total Protein 6.6 Albumin 3.5 Microbiology Microbiology Results: Microbiology 01/11/25 22:38 Blood - Venous Blood Culture - Final No growth after 5 days. 01/11/25 22:38 Blood - Venous Blood Culture - Final No growth after 5 days. 01/09/25 06:28 Blood - Venous Blood Culture - Final No growth after 5 days. 01/09/25 06:28 Blood - Venous Blood Culture - Final No growth after 5 days. 01/11/25 22:19 Sputum - Suctioned Gram Stain - Final 01/11/25 22:19 Sputum - Suctioned Sputum Culture - Final 01/06/25 23:32 Blood - Venous Blood Culture - Final No growth after 5 days. 01/06/25 23:32 Blood - Venous Blood Culture - Final No growth after 5 days. Progress Note: A&P Assessment and plan (1) Muscle weakness: Status: Acute (2) Pulmonary aspiration: Status: Acute (3) Acute and chronic respiratory failure with hypercapnia: Status: Acute (4) Obesity hypoventilation syndrome: Status: Acute Plan Assessment: 44-year-old lady with underlying obesity hypoventilation admitted with dyspnea further complicated by acute on chronic hypercapnia, now with recurrent aspiration while on BiPAP support requiring several re-intubation. Plan: Neuro: No acute issues. Previously negative workup for myasthenia gravis. Additional neurological is negative including serologies and EMG. Does appear to have a myopathic process as patient is unable to sustain normal respiratory work without at least intermittent BiPAP support and keeps aspirating while on BiPAP support. Cardiac: No acute issues. Pulmonary: Recurrent acute on chronic hypercapnic respiratory failure secondary to iatrogenic hyperoxia requiring intubation and ventilatory support further complicated by CO2 narcosis associated pulmonary. Extubated 01/10/2025. Patient with pulmonary aspiration requiring emergent intubation thereafter with refractory hypoxemia requiring bedside bronchoscopy for secretion clearance on 01/11/2025, extubated 01/19/2025 with underlying respiratory muscle weakness with negative inspiratory force only at 8 cm of water. With recurrent pulmonary aspirations requiring re-intubation on 01/26/2025. Will likely require tracheostomy/parenteral gastrostomy. Renal: Acute kidney injury, improved, non oliguric. Continue to monitor renal indices and urine output. Endo: No acute issues. GI: No acute issues. ID: No acute issues. Heme/Onc: No acute issues. Psych: No acute issues. Miscellaneous: No acute issues. Prophylaxis: Heparin, famotidine Diet: Tube feeds Quality Stroke Does the patient have a stroke diagnosis?: No VTE Prior VTE?: No VTE Risk Level:: Medical - moderate - high VTE Device Contraindication: Treatment Not Indicated VTE Drug Contraindication: N/A - Med Ordered
--- NOTE | 2025-01-27 12:46 | MHC.CM.PN ---
Pt required reintubation on 01/26 - this is the third time during her stay that she failed extubation: per MD, pt will now require a peg/trach and transfer to LTACH following surgery. No surgical date planned at this time. [facility] once pt has an OR time. CM to follow
[2025-01-27 13:23] LABS: Glucose, Whole Blood 154 mg/dL (60-115)
[2025-01-27 18:14] LABS: Glucose, Whole Blood 134 mg/dL (60-115)
--- NOTE | 2025-01-27 19:39 | PC.NURSE ---
Assumed care of patient at 0700 Neuro: Patient sedated on Propofol tolerating vent well, at times nods and squeezes hands? Cardiac: SR, non pitting edema noted to upper and lower extremities. Resp: lung sounds Dim, inspiratory and expiratory rhonchi intermittently, clears with suctions? see vent assessment, patient desatted this afternoon with repositioning? GI/: OG tube with tube feeds at goal, boluses as ordered, purwick in place noted to malfunction this evening and large incontinent episode Integumentary/Musculoskeletal: turn and repo every 2 hours to maintain skin integrity, pink foam to left buttuck, see skin assessment for full details.
[2025-01-28] VITALS (34 sets, daily range): BP systolic 98–129; BP diastolic 6–86; PULSE 87–103; RESP 16–24; TEMP 34.6–37.9; O2SAT 91–96; BMI 36.0
[2025-01-28 00:11] LABS: Glucose, Whole Blood 176 mg/dL (60-115)
[2025-01-28] MEDS: Albuterol/Iprat 2.5/0.5MG 3 ML AMPUL.NEB INHALE ×3 (00:41→11:12)
[2025-01-28 05:29] LABS: VBG HCO3 25 mmol/L (22-26); VBG O2 % Saturation 93.0 %
[2025-01-28 05:35] LABS: Venous Blood Gas Refer to POC result
[2025-01-28 05:42] LABS: MANUAL DIFF FLAG NO
[2025-01-28 05:45] LABS: Hematocrit 31.2 % (37.0-47.0); Hemoglobin 10.6 g/dl (12.0-16.0); Imm Gran Abs Auto 0.08 X10*3/uL (0.00-0.03); Imm Gran Pct Auto 0.8 % (0.0-0.4); Lymphocytes Absolute Auto 1.5 X10*3/uL (1.2-4.9); Mean Corpuscular HGB Conc 34.0 g/dl (31.0-35.0); Mean Corpuscular Hemoglobin 28.0 pg (27.0-33.0); Mean Corpuscular Volume 82.3 fL (80.0-98.0); NRBC Abs Auto 0.000 X10*3/uL (0.0-0.012); NRBC Pct Auto 0.0 /100WBC (0.0-0.2); Platelet Count 218 X10*3/uL (160-400); Red Blood Count 3.79 X10*6/uL (4.20-5.50); White Blood Count 9.8 X10*3/uL (4.8-10.8)
[2025-01-28 06:06] LABS: Alanine Aminotransferase 20 U/L (0-31); Albumin Level 3.5 g/dL (3.5-5.0); Alkaline Phosphatase 100 U/L (39-117); Anion Gap 17 (12-20); Aspartate Amino Transferase 19 U/L (5-31); Blood Urea Nitrogen 31 mg/dL (9-16); Calcium 9.7 mg/dL (8.4-10.2); Carbon Dioxide 24 mmol/L (22-29); Chloride 105 mmol/L (96-108); Creatinine Clr Calc Pharmacy 102.2; Estimated Glomerular Filt Rate > 60; Magnesium 1.8 mg/dL (1.6-2.6); Potassium 3.5 mmol/L (3.3-5.1); Sodium 142 mmol/L (135-145); Total Protein 6.6 g/dL (6.5-8.0)
--- NOTE | 2025-01-28 06:47 | PC.NURSE ---
Critical Care Nursing Note Assumed care of the patient at 1900. Patient remains on mechanical ventilation and sedation, RASS -3. SR on telemetry. Levophed gtt titrated to maintain MAP goal >65. Tube feeding running at goal rate of 20ml/hr.?
[2025-01-28] MEDS: Potassium Chloride Packet 20 MEQ PACKET 40 MEQ PO (08:18)
[2025-01-28] MEDS: Chlorhexidine Gluc Oral Rinse 15 ML MOUTHWASH BUCCAL ×3 (08:18→21:06)
[2025-01-28] MEDS: 0.9 % Sodium Chloride Flush 3 ML SYRINGE IVFLUSH ×2 (08:21→16:18)
--- NOTE | 2025-01-28 10:52 | PM.CCPN ---
Subjective Subjective Date of Service: 01/28/25 Interval History: 44-year-old lady with underlying morbid obesity with obesity hyperventilation, PCOS, panic disorder, hypothyroidism admitted on 01/07/2025 with dyspnea to telemetry [facility] in treated empirically for community-acquired pneumonia. Hospital course further complicated by iatrogenic hyperoxia resulting in acute hypercapnia requiring BiPAP support. Patient transferred to telemetry [facility] on 01/08/2025. Overnight patient with another episode you iatrogenic hyperoxia with resultant hypercapnia requiring intubation with ventilatory support and transfer to intensive care unit, further complicated by CO2 narcosis associated aspiration. Extubated uneventfully on 01/10/2025. Overnight with pulmonary aspiration requiring emergent intubation, thereafter with hypoxia refractory to ventilatory support requiring emergent bedside bronchoscopy with secretion clearance with improvement in oxygenation. EMG with no evidence of myopathy. Extubated on 01/19/2025. Continues to require BiPAP support on and off. Overall with what appears to be poor respiratory strength resulting in recurrent aspirations while on BiPAP support necessitating re-intubation overnight on 01/26/2025. No events overnight. Critical Care Time (minutes): 45 Physical Exam Vital Signs: Vital Signs: Last Vital Signs Temp 99.5 F 01/28/25 10:00 Pulse 91 01/28/25 10:00 Resp 16 01/28/25 10:00 BP 111/67 01/28/25 10:00 Pulse Ox 94 01/28/25 10:00 O2 Del Method Mechanical Ventil ation 01/28/25 10:00 O2 Flow Rate 2 01/23/25 13:00 FiO2 25 01/28/25 10:00 Oxygen Flow Rate 45 01/22/25 12:00 BMI result Body Mass Index 36.0 Const: General: no acute distress and other (Sedated on ventilatory support) Eyes: Sclerae: sclerae normal EOM: EOMs intact bilaterally Neck: Neck: Yes no lymphadenopathy, Yes trachea midline and Yes supple Resp: Auscultation: clear to auscultation bilaterally Cardio: Rate: regular rate Rhythm: regular rhythm Heart sounds: no gallops, no murmurs and no rubs GI: Palpation (GI): Soft to palpation and Other GI palpation findings present ( Nontender) Auscultation: normal bowel sounds Extrem: General: Yes no pedal edema, No clubbing and No cyanosis Objective Data Labs 01/28/25 05:24 01/28/25 05:24 Labs: Laboratory Results - last 24 hr 01/27/25 01/27/25 01/27/25 12:16 18:11 23:50 WBC RBC Hgb Hct MCV MCH MCHC RDW Plt Count MPV Immature Gran % (Auto) Neut % (Auto) Lymph % (Auto) [place] % (Auto) Eos % (Auto) Baso % (Auto) Lymph # (Auto) [place] # (Auto) Eos # (Auto) Baso # (Auto) Abs Immat Gran (auto) Absolute Neuts (auto) Absolute Nucleated RBC Nucleated RBC % (auto) VBG pH VBG pCO2 VBG pO2 VBG HCO3 VBG O2 Saturation VBG Base Excess Sodium Potassium Chloride Carbon Dioxide Anion Gap BUN Creatinine Estim Creat Clear Calc Estimated GFR POC Glucose 154 H 134 H 176 H Random Glucose Calcium Phosphorus Magnesium Total Bilirubin AST ALT Alkaline Phosphatase Total Protein Albumin 01/28/25 01/28/25 05:24 05:26 WBC 9.8 RBC 3.79 L Hgb 10.6 L Hct 31.2 L MCV 82.3 MCH 28.0 MCHC 34.0 RDW 15.9 Plt Count 218 MPV 9.4 Immature Gran % (Auto) 0.8 H Neut % (Auto) 74.2 H Lymph % (Auto) 15.1 L [place] % (Auto) 6.4 Eos % (Auto) 3.3 Baso % (Auto) 0.2 Lymph # (Auto) 1.5 [place] # (Auto) 0.6 Eos # (Auto) 0.3 Baso # (Auto) 0.0 Abs Immat Gran (auto) 0.08 H Absolute Neuts (auto) 7.3 Absolute Nucleated RBC 0.000 Nucleated RBC % (auto) 0.0 VBG pH 7.50 H VBG pCO2 32 VBG pO2 77 VBG HCO3 25 VBG O2 Saturation 93.0 VBG Base Excess 2.8 Sodium 142 Potassium 3.5 D Chloride 105 Carbon Dioxide 24 Anion Gap 17 BUN 31 H Creatinine 0.77 Estim Creat Clear Calc 102.2 Estimated GFR > 60 POC Glucose Random Glucose 162 H Calcium 9.7 Phosphorus 4.1 Magnesium 1.8 Total Bilirubin 0.5 AST 19 ALT 20 Alkaline Phosphatase 100 Total Protein 6.6 Albumin 3.5 Microbiology Microbiology Results: Microbiology 01/11/25 22:38 Blood - Venous Blood Culture - Final No growth after 5 days. 01/11/25 22:38 Blood - Venous Blood Culture - Final No growth after 5 days. 01/09/25 06:28 Blood - Venous Blood Culture - Final No growth after 5 days. 01/09/25 06:28 Blood - Venous Blood Culture - Final No growth after 5 days. 01/11/25 22:19 Sputum - Suctioned Gram Stain - Final 01/11/25 22:19 Sputum - Suctioned Sputum Culture - Final 01/06/25 23:32 Blood - Venous Blood Culture - Final No growth after 5 days. 01/06/25 23:32 Blood - Venous Blood Culture - Final No growth after 5 days. Progress Note: A&P Assessment and plan (1) Muscle weakness: Status: Acute (2) Obesity hypoventilation syndrome: Status: Acute (3) Acute on chronic respiratory failure with hypoxia and hypercapnia: Status: Acute (4) Pulmonary aspiration: Status: Acute Plan Assessment: 44-year-old lady with underlying obesity hypoventilation admitted with dyspnea further complicated by acute on chronic hypercapnia, now with recurrent aspiration while on BiPAP support requiring several re-intubation. Plan: Neuro: No acute issues. Previously negative workup for myasthenia gravis. Additional neurological is negative including serologies and EMG. Does appear to have a myopathic process as patient is unable to sustain normal respiratory work without at least intermittent BiPAP support and keeps aspirating while on BiPAP support. Cardiac: No acute issues. Pulmonary: Recurrent acute on chronic hypercapnic respiratory failure secondary to iatrogenic hyperoxia requiring intubation and ventilatory support further complicated by CO2 narcosis associated pulmonary. Extubated 01/10/2025. Patient with pulmonary aspiration requiring emergent intubation thereafter with refractory hypoxemia requiring bedside bronchoscopy for secretion clearance on 01/11/2025, extubated 01/19/2025 with underlying respiratory muscle weakness with negative inspiratory force only at 8 cm of water. With recurrent pulmonary aspirations requiring re-intubation on 01/26/2025. Will likely require tracheostomy/parenteral gastrostomy. Renal: Acute kidney injury, improved, non oliguric. Continue to monitor renal indices and urine output. Endo: No acute issues. GI: No acute issues. ID: No acute issues. Heme/Onc: No acute issues. Psych: No acute issues. Miscellaneous: No acute issues. Prophylaxis: Heparin, famotidine Diet: Tube feeds Quality Stroke Does the patient have a stroke diagnosis?: No VTE Prior VTE?: No VTE Risk Level:: Medical - moderate - high VTE Device Contraindication: Treatment Not Indicated VTE Drug Contraindication: N/A - Med Ordered
[2025-01-28 12:07] LABS: Glucose, Whole Blood 116 mg/dL (60-115)
--- NOTE | 2025-01-28 17:06 | PC.NURSE ---
Assumed care? approx. @ 1430 Neuro: Sedated/intubated, Propofol per AUG, RASS -3, Moves hands (passive ROM performed).? Resp: Vent. support. Cardiac: Sinus Tachycardia on tele, Levophed gtt per AUG, MAP goal >65. GI: LBM 8/7 , +bowel sounds, OGT in place, tolerating tube feeds w/o signs of intolerance, POC Q6hr, on sliding scale insulin per AUG.? : External catheter in place, Patent/draining Skin: ?Impaired skin integrity - see skin assessment (repositioning maintained) (foam DGS applied) Temp: Low grade fever, Ice packs placed? Lines: peripheral IVs.
[2025-01-28 18:14] LABS: Glucose, Whole Blood 129 mg/dL (60-115)
[2025-01-28 23:58] LABS: Glucose, Whole Blood 163 mg/dL (60-115)
[2025-01-29] VITALS (38 sets, daily range): BP systolic 81–149; BP diastolic 42–90; PULSE 69–103; RESP 16–33; TEMP 34.8–37.7; O2SAT 89–98; BMI 35.6
[2025-01-29] MEDS: 0.9 % Sodium Chloride Flush 3 ML SYRINGE IVFLUSH ×3 (00:09→16:32)
[2025-01-29 06:05] LABS: MANUAL DIFF FLAG NO
[2025-01-29 06:07] LABS: VBG HCO3 23 mmol/L (22-26); VBG O2 % Saturation 98.0 %
[2025-01-29 06:20] LABS: Alanine Aminotransferase 22 U/L (0-31); Albumin Level 3.5 g/dL (3.5-5.0); Alkaline Phosphatase 107 U/L (39-117); Anion Gap 16 (12-20); Aspartate Amino Transferase 22 U/L (5-31); Blood Urea Nitrogen 19 mg/dL (9-16); Calcium 9.2 mg/dL (8.4-10.2); Carbon Dioxide 22 mmol/L (22-29); Chloride 107 mmol/L (96-108); Creatinine Clr Calc Pharmacy 139.5; Estimated Glomerular Filt Rate > 60; Magnesium 1.8 mg/dL (1.6-2.6); Potassium 3.3 mmol/L (3.3-5.1); Sodium 142 mmol/L (135-145); Total Protein 6.7 g/dL (6.5-8.0)
[2025-01-29 06:25] LABS: Hematocrit 29.7 % (37.0-47.0); Hemoglobin 10.1 g/dl (12.0-16.0); Imm Gran Abs Auto 0.07 X10*3/uL (0.00-0.03); Imm Gran Pct Auto 0.9 % (0.0-0.4); Lymphocytes Absolute Auto 0.7 X10*3/uL (1.2-4.9); Mean Corpuscular HGB Conc 34.0 g/dl (31.0-35.0); Mean Corpuscular Hemoglobin 28.7 pg (27.0-33.0); Mean Corpuscular Volume 84.4 fL (80.0-98.0); NRBC Abs Auto 0.000 X10*3/uL (0.0-0.012); NRBC Pct Auto 0.0 /100WBC (0.0-0.2); Platelet Count 160 X10*3/uL (160-400); Red Blood Count 3.52 X10*6/uL (4.20-5.50); White Blood Count 7.6 X10*3/uL (4.8-10.8)
[2025-01-29 06:59] LABS: Glucose, Whole Blood 145 mg/dL (60-115)
[2025-01-29] MEDS: Potassium Chloride Packet 20 MEQ PACKET 40 MEQ PO (07:54)
[2025-01-29] MEDS: Chlorhexidine Gluc Oral Rinse 15 ML MOUTHWASH BUCCAL ×3 (08:06→20:41)
--- NOTE | 2025-01-29 08:56 | PC.NURSE ---
Assumed care 0700? Neuro/Respiratory: Alert and Oriented, clear lung sounds on RA Cardiac: Sinus Rhythm on tele, Levophed titrated off? since 01/28 GI/: LBM 01/29, Regular diet, Oliguric?? Skin: Impaired skin integrity- see skin assessment? Temp: Afebrile? Lines: ??TLC? to [facility]? Plan: Transfer to [facility]. No longer requiring ICU-level care. ?
--- NOTE | 2025-01-29 10:20 | P.PNCC_ITS ---
Subjective Subjective Date of Service: 01/29/25 Interval History: 44-year-old lady with underlying morbid obesity with obesity hyperventilation, PCOS, panic disorder, hypothyroidism admitted on 01/07/2025 with dyspnea to telemetry [facility] in treated empirically for community-acquired pneumonia. Hospital course further complicated by iatrogenic hyperoxia resulting in acute hypercapnia requiring BiPAP support. Patient transferred to telemetry [facility] on 01/08/2025. Overnight patient with another episode you iatrogenic hyperoxia with resultant hypercapnia requiring intubation with ventilatory support and transfer to intensive care unit, further complicated by CO2 narcosis associated aspiration. Extubated uneventfully on 01/10/2025. Overnight with pulmonary aspiration requiring emergent intubation, thereafter with hypoxia refractory to ventilatory support requiring emergent bedside bronchoscopy with secretion clearance with improvement in oxygenation. EMG with no evidence of myopathy. Extubated on 01/19/2025. Continues to require BiPAP support on and off. Overall with what appears to be poor respiratory strength resulting in recurrent aspirations while on BiPAP support necessitating re-intubation overnight on 01/26/2025. No events overnight. Critical Care Time (minutes): 45 Physical Exam 2 Vital Signs: Vital Signs: Last Vital Signs Temp 99.3 F 01/29/25 09:00 Pulse 69 01/29/25 09:00 Resp 20 01/29/25 09:00 BP 123/65 01/29/25 09:00 Pulse Ox 94 01/29/25 09:00 O2 Del Method Mechanical Ventil ation 01/29/25 09:00 O2 Flow Rate 2 01/23/25 13:00 FiO2 21 01/29/25 09:00 Oxygen Flow Rate 45 01/22/25 12:00 BMI result Body Mass Index 35.6 Const: General: no acute distress and other (Sedated on ventilatory support) Eyes: Sclerae: sclerae normal EOM: EOMs intact bilaterally Neck: Neck: Yes no lymphadenopathy, Yes trachea midline and Yes supple Resp: Auscultation: clear to auscultation bilaterally Cardio: Rate: regular rate Rhythm: regular rhythm Heart sounds: no gallops, no murmurs and no rubs GI: Palpation (GI): Soft to palpation and Other GI palpation findings present ( Nontender) Auscultation: normal bowel sounds Extrem: General: Yes no pedal edema, No clubbing and No cyanosis Objective Data Labs 01/29/25 05:59 01/29/25 05:59 Labs: Laboratory Results - last 24 hr 01/28/25 01/28/25 01/28/25 11:55 17:34 23:51 WBC RBC Hgb Hct MCV MCH MCHC RDW Plt Count MPV Immature Gran % (Auto) Neut % (Auto) Lymph % (Auto) [place] % (Auto) Eos % (Auto) Baso % (Auto) Lymph # (Auto) [place] # (Auto) Eos # (Auto) Baso # (Auto) Abs Immat Gran (auto) Absolute Neuts (auto) Absolute Nucleated RBC Nucleated RBC % (auto) VBG pH VBG pCO2 VBG pO2 VBG HCO3 VBG O2 Saturation VBG Base Excess Sodium Potassium Chloride Carbon Dioxide Anion Gap BUN Creatinine Estim Creat Clear Calc Estimated GFR POC Glucose 116 H 129 H 163 H Random Glucose Calcium Phosphorus Magnesium Total Bilirubin AST ALT Alkaline Phosphatase Total Protein Albumin 01/29/25 01/29/25 01/29/25 05:59 06:03 06:11 WBC 7.6 RBC 3.52 L Hgb 10.1 L Hct 29.7 L MCV 84.4 MCH 28.7 MCHC 34.0 RDW 15.9 Plt Count 160 D MPV 9.4 Immature Gran % (Auto) 0.9 H Neut % (Auto) 80.4 H Lymph % (Auto) 9.3 L [place] % (Auto) 6.3 Eos % (Auto) 2.8 Baso % (Auto) 0.3 Lymph # (Auto) 0.7 L [place] # (Auto) 0.5 Eos # (Auto) 0.2 Baso # (Auto) 0.0 Abs Immat Gran (auto) 0.07 H Absolute Neuts (auto) 6.1 Absolute Nucleated RBC 0.000 Nucleated RBC % (auto) 0.0 VBG pH 7.53 H VBG pCO2 27 VBG pO2 96 VBG HCO3 23 VBG O2 Saturation 98.0 VBG Base Excess 1.3 Sodium 142 Potassium 3.3 Chloride 107 Carbon Dioxide 22 Anion Gap 16 BUN 19 H Creatinine 0.56 Estim Creat Clear Calc 139.5 Estimated GFR > 60 POC Glucose 145 H Random Glucose 145 H Calcium 9.2 Phosphorus 4.1 Magnesium 1.8 Total Bilirubin 0.4 AST 22 ALT 22 Alkaline Phosphatase 107 Total Protein 6.7 Albumin 3.5 Microbiology Microbiology Results: Microbiology 01/11/25 22:38 Blood - Venous Blood Culture - Final No growth after 5 days. 01/11/25 22:38 Blood - Venous Blood Culture - Final No growth after 5 days. 01/09/25 06:28 Blood - Venous Blood Culture - Final No growth after 5 days. 01/09/25 06:28 Blood - Venous Blood Culture - Final No growth after 5 days. 01/11/25 22:19 Sputum - Suctioned Gram Stain - Final 01/11/25 22:19 Sputum - Suctioned Sputum Culture - Final 01/06/25 23:32 Blood - Venous Blood Culture - Final No growth after 5 days. 01/06/25 23:32 Blood - Venous Blood Culture - Final No growth after 5 days. Progress Note: A&P Assessment and plan (1) Muscle weakness: Status: Acute (2) Acute on chronic respiratory failure with hypoxia and hypercapnia: Status: Acute (3) Pulmonary aspiration: Status: Acute (4) Obesity hypoventilation syndrome: Status: Acute Plan Assessment: 44-year-old lady with underlying obesity hypoventilation admitted with dyspnea further complicated by acute on chronic hypercapnia, now with recurrent aspiration while on BiPAP support requiring several re-intubation. Plan: Neuro: No acute issues. Previously negative workup for myasthenia gravis. Additional neurological is negative including serologies and EMG. Does appear to have a myopathic process as patient is unable to sustain normal respiratory work without at least intermittent BiPAP support and keeps aspirating while on BiPAP support. Cardiac: No acute issues. Pulmonary: Recurrent acute on chronic hypercapnic respiratory failure secondary to iatrogenic hyperoxia requiring intubation and ventilatory support further complicated by CO2 narcosis associated pulmonary. Extubated 01/10/2025. Patient with pulmonary aspiration requiring emergent intubation thereafter with refractory hypoxemia requiring bedside bronchoscopy for secretion clearance on 01/11/2025, extubated 01/19/2025 with underlying respiratory muscle weakness with negative inspiratory force only at 8 cm of water. With recurrent pulmonary aspirations requiring re-intubation on 01/26/2025. Planned for tracheostomy/parenteral gastrostomy. Renal: Acute kidney injury, improved, non oliguric. Continue to monitor renal indices and urine output. Endo: No acute issues. GI: No acute issues. ID: No acute issues. Heme/Onc: No acute issues. Psych: No acute issues. Miscellaneous: No acute issues. Prophylaxis: Heparin, famotidine Diet: Tube feeds Quality Stroke Does the patient have a stroke diagnosis?: No VTE Prior VTE?: No VTE Risk Level:: Medical - moderate - high VTE Device Contraindication: Treatment Not Indicated VTE Drug Contraindication: N/A - Med Ordered
--- NOTE | 2025-01-29 10:44 | PM.CNGS ---
History of Present Illness Consult details Consult date: 01/29/25 <Annita Frost PA-C - Last Filed: 01/29/25 11:18> Reason for consult: other (trach/PEG) <NICOLE Rivera Last Filed: 01/29/25 11:18> Requesting physician: Daryl Ayala <Annita Frost PA-C - Last Filed: 01/29/25 11:18> Narrative: 44-year-old lady with PMH significant for morbid obesity with obesity hyperventilation, unspecified progressive weakness, PCOS, panic disorder, hypothyroidism, HTN who initially presented to the ED with complaints of dyspnea admitted on 01/07/2025 for pneumonia. She had a lengthy stay at [facility] for her generalized weakness and was discharged from a rehab a day prior to presentation. Patient has had a significant neurologic workup that has been essentially negative. During her current admission, she developed hypercapnia and respiratory failure requiring intubation with ventilatory support and transfer to ICU. This was further complicated by CO2 narcosis associated aspiration. She was extubated to BiPAP 01/10/2025 and developed pulmonary aspiration requiring emergent intubation with refractory hypoxia requiring emergent bedside bronchoscopy with secretion clearance. She was extubated again on 01/19/2025 to BiPAP however necessitated reintubation overnight on 01/26/2025, deemed secondary to overall poor respiratory strength resulting in recurrent aspirations while on BiPAP support. She remains intubated and general surgery was consulted for trach/PEG tube placement. She is on low dose pressors. She is off antibiotics at this point. Surgical history significant for appendectomy and C section. <Annita Frost PA-C - Last Filed: 01/29/25 11:18> Review of Systems Review of Systems: Yes unobtainable due to endotracheal tube <NICOLE Rivera Last Filed: 01/29/25 11:18> [facility] Past Medical History Medical History: Medical History Foot drop, left Constipation Mass of left foot IBS (irritable colon syndrome) Morbid obesity with BMI of 45.0-49.9, adult GERD with esophagitis DMII (diabetes mellitus, type 2) Fibroadenoma of breast Fibromyalgia Hypothyroid PCOS (polycystic ovarian syndrome) PTSD (post-traumatic stress disorder) <Annita Frost PA-C - Last Filed: 01/29/25 11:18> Family History Family History: Family History Father Acral gangrene Mother Cancer Father Diabetes Gangrene Mother Diabetes Hypertension Thyroid disease Cervical cancer Dementia Son In good health Maternal Grandmother Breast cancer Sister Breast cancer Other Mental health disorder <Annita Frost PA-C - Last Filed: 01/29/25 11:18> Surgical History Surgical History: Surgical History History of excision of mass (08/07/22) History of esophagogastroduodenoscopy (EGD) History of D&C History of hand surgery History of section History of lumpectomy of right breast History of appendectomy Hx of appendectomy <Annita Frost PA-C - Last Filed: 01/29/25 11:18> Social History Social History: Social History Household Members: Spouse Housing: Care Home Housing Other:: went for [facility]hab [facility], 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 Alcohol intake: never Patient Tobacco Use Status: Never used Tobacco Advance Directives Date on File: 07/21/24 Current occupational status: disabled Sexual orientation: Straight/Heterosexual Gender identity: Female <Annita Frost PA-C - Last Filed: 01/29/25 11:18> Meds Allergies/Adverse reactions: Allergies Allergy/AdvReac Type Severity Reaction Status Date / Time metronidazole (From FLAGYL) Allergy Severe CHEST PAIN Verified 01/06/25 19:39 TO LEFT SHOULDER, bacitracin (BACITRACIN) Allergy Intermediate BURNING, Verified 01/06/25 19:39 ITCHING risperidone (From Risperdal) Allergy Intermediate high level Verified 01/06/25 19:39 prolactin aripiprazole (From Abilify) Allergy Mild ITCHING Verified 01/06/25 19:39 iopromide (From Ultravist) Allergy Mild DIZZY, DRY Verified 01/06/25 19:39 THROAT AND MOUTH Vistra 650 Allergy Intermediate attention Uncoded 08/21/24 02:46 issues <Annita Frost PA-C - Last Filed: 01/29/25 11:18> Active Medications: Current Medications Acetaminophen (Acetaminophen 325 Mg Tablet) 650 mg PO Q6H PRN PRN Reason: Pain, Mild 1-3,fever,headache Last Admin: 01/23/25 15:53 Dose: 650 mg Artificial Tears (Artificial Tears 15 Ml Drops) 2 drop EYE-BOTH Q4H PRN PRN Reason: Dry Eyes Chlorhexidine Gluconate (Chlorhexidine Gluc Oral Rinse 15 Ml Mouthwash) 15 ml BUCCAL TID RADHA Last Admin: 01/29/25 08:06 Dose: 15 ml Enoxaparin Sodium (Enoxaparin Sodium 40 Mg/0.4 Ml Syringe) 40 mg SUBCUT Q24H RADHA Last Admin: 01/28/25 10:37 Dose: 40 mg Famotidine (Famotidine/Pf 20 Mg/2 Ml Vial) 20 mg IVPUSH DAILY RADHA Last Admin: 01/29/25 08:06 Dose: 20 mg Propofol (Diprivan) 1,000 mg in 100 mls @ 0 mls/hr IVCONT .Q0M RADHA; Protocol Last Titration: 01/29/25 08:37 Dose: 50 mcg/kg/min, 32.13 mls/hr Norepinephrine Bitartrate (Levophed) 8 mg in 250 mls @ 0 mls/hr IVCONT .Q0M RADHA; Protocol Last Titration: 01/29/25 07:53 Dose: 0.05 mcg/kg/min, 10.04 mls/hr Insulin Human Lispro (Insulin Lispro 100 Unit/Ml 3 Ml Vial) 0 unit SUBCUT Q6H RADHA; Protocol Last Admin: 01/29/25 06:26 Dose: Not Given Lactulose (Lactulose 20 Gm/30 Ml Solution) 30 gm PO DAILY PRN PRN Reason: constipation Levothyroxine Sodium (Levothyroxine Sodium 88 Mcg Tablet) 88 mcg PO DAILY@0600 [facility] Last Admin: 01/29/25 06:23 Dose: 88 mcg Magnesium Hydroxide (Milk Of Magnesia 30 Ml Oral.Susp) 30 ml PO DAILY PRN PRN Reason: Constipation Ondansetron HCl (Ondansetron Hcl 4 Mg/2 Ml Vial) 4 mg IVPUSH Q6H PRN PRN Reason: Nausea and Vomiting Last Admin: 01/24/25 13:51 Dose: 4 mg Sodium Chloride (0.9 % Sodium Chloride Flush 3 Ml Syringe) 3 ml IVFLUSH [facility] Last Admin: 01/29/25 07:53 Dose: 3 ml <Annita Frost PA-C - Last Filed: 01/29/25 11:18> Home medications: Home Medications ?Medication ?Instructions ?Recorded ?Confirmed ?Last Taken ?Type galcanezumab-gnlm 120 mg/mL 120 mg subcut QMONTH 05/08/20 01/07/25 07/04/24 History subcutaneous pen injector (Emgality Pen) riboflavin (vitamin B2) 100 mg 200 mg PO BID 05/29/20 01/07/25 Unknown History tablet atorvastatin 10 mg tablet 40 mg PO BEDTIME 07/23/21 01/07/25 Unknown History chlorthalidone 25 mg tablet 25 mg PO DAILY 07/30/21 01/07/25 Unknown History semaglutide 0.25 mg or 0.5 mg (2 0.5 mg subcut 06/24/23 01/07/25 12/28/24 History mg/3 mL) subcutaneous pen injector (Ozempic) lisinopril 10 mg tablet 10 mg PO DAILY 07/30/23 01/07/25 07/20/24 History acetaminophen 500 mg tablet 500 - 1,000 mg PO Q8H PRN Fever Or 01/07/25 01/07/25 Unknown History Pain celecoxib 200 mg capsule 200 mg PO BID PRN mild pain 01/07/25 01/07/25 Unknown History docusate sodium 100 mg capsule 100 mg PO BEDTIME 01/07/25 01/07/25 Unknown History (Stool Softener) hydroxyzine HCl 25 mg tablet 25 mg PO BID PRN Anxiety 01/07/25 01/07/25 Unknown History ibuprofen 400 mg tablet 400 mg PO Q6H PRN Pain 01/07/25 01/07/25 Unknown History loratadine 10 mg tablet 10 mg PO BEDTIME PRN Allergy 01/07/25 01/07/25 Unknown History Symptoms olmesartan 5 mg tablet 5 mg PO DAILY 01/07/25 01/07/25 Unknown History <Annita Frost PA-C - Last Filed: 01/29/25 11:18> Physical Exam Vital Signs: Vital Signs: Last Vital Signs Temp 99.0 F 01/29/25 10:00 Pulse 71 01/29/25 10:00 Resp 23 H 01/29/25 10:00 BP 120/70 01/29/25 10:00 Pulse Ox 95 01/29/25 10:00 O2 Del Method Mechanical Ventil ation 01/29/25 10:00 O2 Flow Rate 2 01/23/25 13:00 FiO2 21 01/29/25 10:00 Oxygen Flow Rate 45 01/22/25 12:00 BMI result Body Mass Index 35.6 <Annita Frost PA-C - Last Filed: 01/29/25 11:18> Const: Nutritional Appearance: obese <Annita Frost PA-C - Last Filed: 01/29/25 11:18> Neck: Neck: Yes normal visual inspection, Yes trachea midline, Yes supple, No tracheal deviation and No no JVD <Annita Frost PA-C - Last Filed: 01/29/25 11:18> Resp: Other: intubated, on vent <Annita Frost PA-C - Last Filed: 01/29/25 11:18> GI: Other: corpulent abdomen <Annita Frost PA-C - Last Filed: 01/29/25 11:18> Inspection: No distended and Yes scar <Annita Frost PA-C - Last Filed: 01/29/25 11:18> Palpation (GI): Soft to palpation <Annita Frost PA-C Last Filed: 01/29/25 11:18> Abdomen image:  1. appendectomy, modified mcburney incision 2. pfannensteil <Annita Frost PA-C - Last Filed: 01/29/25 11:18> Skin: Other: warm and dry <Annita Frost PA-C - Last Filed: 01/29/25 11:18> Extrem: Other: mild pedal edema <NICOLE Rivera Last Filed: 01/29/25 11:18> Results Labs Result diagrams: 01/30/25 05:22 01/30/25 05:22 <NICOLE Rivera Last Filed: 01/29/25 11:18> Labs: Abnormal lab results 01/28/25 01/28/25 01/28/25 Range/Units 11:55 17:34 23:51 RBC (4.20-5.50) X10*6/uL Hgb (12.0-16.0) g/dl Hct (37.0-47.0) % Immature Gran % (Auto) (0.0-0.4) % Neut % (Auto) (45-73) % Lymph % (Auto) (20-40) % Lymph # (Auto) (1.2-4.9) X10*3/uL Abs Immat Gran (auto) (0.00-0.03) X10*3/uL VBG pH (7.32-7.43) BUN (9-16) mg/dL POC Glucose 116 H 129 H 163 H (60-115) mg/dL Random Glucose (60-115) mg/dL 01/29/25 01/29/25 01/29/25 Range/Units 05:59 06:03 06:11 RBC 3.52 L (4.20-5.50) X10*6/uL Hgb 10.1 L (12.0-16.0) g/dl Hct 29.7 L (37.0-47.0) % Immature Gran % (Auto) 0.9 H (0.0-0.4) % Neut % (Auto) 80.4 H (45-73) % Lymph % (Auto) 9.3 L (20-40) % Lymph # (Auto) 0.7 L (1.2-4.9) X10*3/uL Abs Immat Gran (auto) 0.07 H (0.00-0.03) X10*3/uL VBG pH 7.53 H (7.32-7.43) BUN 19 H (9-16) mg/dL POC Glucose 145 H (60-115) mg/dL Random Glucose 145 H (60-115) mg/dL Short CBC 01/29/25 Range/Units 05:59 WBC 7.6 (4.8-10.8) X10*3/uL Hgb 10.1 L (12.0-16.0) g/dl Hct 29.7 L (37.0-47.0) % Plt Count 160 D (160-400) X10*3/uL BMP 01/29/25 05:59 Sodium 142 Potassium 3.3 Chloride 107 Carbon Dioxide 22 BUN 19 H Creatinine 0.56 Calcium 9.2 Liver Function 01/29/25 Range/Units 05:59 Total Bilirubin 0.4 (0.0-1.0) mg/dL AST 22 (5-31) U/L ALT 22 (0-31) U/L Alkaline Phosphatase 107 (39-117) U/L Albumin 3.5 (3.5-5.0) g/dL All other labs normal. <Annita Frost PA-C - Last Filed: 01/29/25 11:18> Imaging Additional studies: labs reviewed <Annita Frost PA-C - Last Filed: 01/29/25 11:18> Assessment and Plan (1) Acute on chronic respiratory failure with hypoxia and hypercapnia: Status: Acute <Annita Frost PA-C - Last Filed: 01/29/25 11:18> For PEG tube placement Dr. Ayala we will be doing the percutaneous tracheostomy Seen and examined independently Discussed with family <Woo Velasco MD - Last Filed: 01/30/25 14:33> (2) Generalized weakness: Status: Acute <Annita Frost PA-C - Last Filed: 01/29/25 11:18> 44-year-old lady with PMH significant for morbid obesity with obesity hyperventilation, unspecified progressive weakness, PCOS, panic disorder, hypothyroidism, HTN who initially presented to the ED with complaints of dyspnea admitted on 01/07/2025 for pneumonia and developed hypercapnia and respiratory failure requiring intubation with ventilatory support further complicated by CO2 narcosis associated aspiration. She has had multiple attempts at extubation requiring reintubation due to overall poor respiratory strength resulting in recurrent aspirations while on BiPAP support. Trach/PEG has been requested. She is off antibiotics at this point. She is on low dose pressors still. She has surgical hx significant for appendectomy and Cesarian section but appears to be a candidate for PEG tube placement. Will add onto the OR schedule tenatively for tomorrow. Hold tube feeds at midnight. <Annita Frost PA-C - Last Filed: 01/29/25 11:18> 44-year-old lady with PMH significant for morbid obesity with obesity hyperventilation, unspecified progressive weakness, PCOS, panic disorder, hypothyroidism, HTN who initially presented to the ED with complaints of dyspnea admitted on 01/07/2025 for pneumonia and developed hypercapnia and respiratory failure requiring intubation with ventilatory support further complicated by CO2 narcosis associated aspiration. She has had multiple attempts at extubation requiring reintubation due to overall poor respiratory strength resulting in recurrent aspirations while on BiPAP support. Trach/PEG has been requested. She is off antibiotics at this point. She is on low dose pressors still. She has surgical hx significant for appendectomy and Cesarian section but appears to be a candidate for PEG tube placement. Will add onto the OR schedule tenatively for tomorrow. Hold tube feeds at midnight. Agree with the above assessment and plan. Plan for trach/peg in AM tomorrow due to need for reintubation. <Daryl Ayala MD - Last Filed: 01/30/25 07:34> Procedures Date of Service Date of Service: 01/29/25 <Annita Frost PA-C - Last Filed: 01/29/25 11:18> 01/30/25 <Daryl Ayala MD - Last Filed: 01/30/25 07:34> 01/30/25 <Woo Velasco MD - Last Filed: 01/30/25 14:33>
--- NOTE | 2025-01-29 10:45 | MHC.CLN ---
F/U REVIEWED LABS DISCUSSED AT ROUNDS WITH MD-PLAN FOR TRACH/PEG RECOMMEND TF NEPRO AT MAX GOAL RATE 30ML/HR WITH 240ML FREE WATER Q 6 HRS TO PROVIDE 864KCALS (1712KCALS WITH SEDATION; 25KCALS/KG), 39G PROTEIN, 1309ML TOTAL WATER FROM FORMULA AND FLUSHES MONITOR TOLERANCE AND LYTES
--- NOTE | 2025-01-29 11:22 | MHC.SLORD ---
Speech Language Pathology Order Status: Pt intubated, INFECTION CONTROL RN to re-assess upon extubation if appropriate.
[2025-01-29 11:28] LABS: Venous Blood Gas Refer to POC result
[2025-01-29 11:41] LABS: Glucose, Whole Blood 131 mg/dL (60-115)
--- NOTE | 2025-01-29 13:01 | HO.WOUND ---
Wound Consult: Follow up 44yr old?female admitted to [facility] on 01/07/25 07:11- See progress notes and H&P for detailed history.? Wound consult follow up for Bridge of nose and sacral area.? Patient is currently intubated and remains in ICU level of care. 01/12/25 01/22/25 01/29/25 Bridge of Nose Etiology: ?Kennel Assistant Related Deep Tissue Injury- continues to improve - no device in use at this time. Wound Bed: improving purple intact nonblanchable tissue Drainage / Odor: None Edges: defined and attached ? Willa wound: Intact pink blanchable Goals of Treatment: ? Continue to off load pressure Coccyx and Left Sacrum / Buttock - No assessed today given patients not tolerating turns at the time of mu consult. Staff report they are able to reposition Q2hrs and treatment in place. Direct care nurse reports sacral / buttock assessment today is similar presentation no new topical recommendations needed at this time. Etiology: ?MASD Moisture Associated Skin Damage Goals of Treatment: Off Load Pressure and barrier cream / Triad Genital area assessment - Confirmed HSV outbreak - moisture managemtn continues to be goals of care. Right Heel Linear Lines - maroon intact. No topical recommendations needed at this time - area continues to evolve - remains intact and slightly blanchable - no devices in use with in the area - Etiology continues to be unknown. Recommendations: 1. Turn and Reposition every 2 hours and as needed for patient comfort.? Use pillows or wedges to support off loading positions. 2. Off Load all bony prominences with use of pillows and heel boots if needed.? Apply Preventative foams where needed. ? 3. Monitor for incontinence and moisture control, use barrier creams when needed for prevention and treatment. 4. Provide adequate and supplemental nutrition.? 5. Continue low air loss mattress. 6. When applicable maintain blood glucose levels per Providers order. Bridge of nose - Routine cleansing. Apply Skin prep be sure to avoid eyes allow to dry. Apply Foam dressing to pad skin from device. Change Daily and PRN. Coccyx - ?Off Load Pressure with Q2 hr turns and use of pillows - Cleanse with PH balance spray or wipes, pat dry. ?Apply thin layer of Triad to wound bed - only pat and dab no scrub and rub when soiling occurs. Reapply thin layer PRN after each episode of incontinence. Genital - Gently cleanse with routine cleansing, dry well. Keep dry and free from moisture. May use Interdry to translocate moisture from area. May use Ice Pack to sooth area if discomfort experienced. Re-consult wound care Nurse for wound deterioration or wound changes.
--- NOTE | 2025-01-29 13:29 | HO.ANESPROP2 ---
HPI - Anesthesia Eval Consult details Narrative: 44 yr old female for Tracheostomy, Percutaneous; PEG placement. Acute on chronic respiratory failure with hypoxia, hypercapnia, 2/2 recurrent aspirations: requiring recurrent intubations, last intubated 01/26/25. Myopathic process: work up negative for Myasthenia gravis PMFSH Active Problems Active Problems: All Active Problems Muscle weakness (Acute) Acute on chronic respiratory failure with hypoxia and hypercapnia (Acute) Pulmonary aspiration (Acute) Pulmonary edema (Acute) Acute and chronic respiratory failure with hypercapnia (Acute) Obesity hypoventilation syndrome (Acute) Generalized weakness (Acute) Pneumonia (Acute) Amenorrhea (Acute) Foot drop, left (Acute) Well woman exam (Acute) Open wound of left foot (Acute) Constipation (Acute) Mass of left foot (Acute) Poor historian (Acute) Chronic constipation (Acute) Dysplasia of cervix, low grade (FÁTIMA 1) (Acute) At high risk for breast cancer (Acute) ASCUS of cervix with negative high risk HPV (Acute) Skin candidiasis (Acute) Nipple discharge (Acute) Abnormal uterine bleeding (Acute) Cough variant asthma (Acute) Annual physical exam (Acute) IBS (irritable colon syndrome) (Acute) Morbid obesity with BMI of 45.0-49.9, adult (Acute) GERD with esophagitis (Acute) Cough (Acute) Hypothyroidism (Acute) Pituitary adenoma (Acute) Migraines (Acute) Allergic rhinitis (Acute) Fibromyalgia (Acute) GERD (gastroesophageal reflux disease) (Acute) Insomnia (Acute) Hypothyroidism (Acute) Right hip pain (Acute) Lumbar pain with radiation down right leg (Acute) Cough (Acute) Tinea pedis (Acute) Fibromyalgia (Acute) Lower extremity edema (Acute) Irritable bowel syndrome with both constipation and diarrhea (Acute) Esophageal erosions (Acute) GERD (gastroesophageal reflux disease) (Acute) Epigastric pain (Acute) Past Medical History Medical History (Updated 02/05/25 @ 14:45 by Aubrie Cohen MD) Herpes virus disease Generalized weakness Foot drop, left Constipation Mass of left foot IBS (irritable colon syndrome) Morbid obesity with BMI of 45.0-49.9, adult GERD with esophagitis DMII (diabetes mellitus, type 2) Fibroadenoma of breast Fibromyalgia Hypothyroid PCOS (polycystic ovarian syndrome) PTSD (post-traumatic stress disorder) Family History Family History Father Acral gangrene Mother Cancer Father Diabetes Gangrene Mother Diabetes Hypertension Thyroid disease Cervical cancer Dementia Son In good health Maternal Grandmother Breast cancer Sister Breast cancer Other Mental health disorder Family history of problems with anesthesia: No Surgical History Surgical History History of excision of mass (08/07/22) History of esophagogastroduodenoscopy (EGD) History of D&C History of hand surgery History of section History of lumpectomy of right breast History of appendectomy Hx of appendectomy History of Problems with Anesthesia: No Social History Social History Household Members: Spouse Housing: Prison Housing Other:: went for rehab half-way, 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 Alcohol intake: never Patient Tobacco Use Status: Never used Tobacco Advance Directives Date on File: 07/21/24 Current occupational status: disabled Sexual orientation: Straight/Heterosexual Gender identity: Female Meds Allergies Allergy/AdvReac Type Severity Reaction Status Date / Time metronidazole (From FLAGYL) Allergy Severe CHEST PAIN Verified 01/06/25 19:39 TO LEFT SHOULDER, bacitracin (BACITRACIN) Allergy Intermediate BURNING, Verified 01/06/25 19:39 ITCHING risperidone (From Risperdal) Allergy Intermediate high level Verified 01/06/25 19:39 prolactin aripiprazole (From Abilify) Allergy Mild ITCHING Verified 01/06/25 19:39 iopromide (From Ultravist) Allergy Mild DIZZY, DRY Verified 01/06/25 19:39 THROAT AND MOUTH [facility] 650 Allergy Intermediate attention Uncoded 08/21/24 02:46 issues Active Medications: Current Medications Acetaminophen (Acetaminophen 325 Mg Tablet) 650 mg PO Q6H PRN PRN Reason: Pain, Mild 1-3,fever,headache Last Admin: 01/23/25 15:53 Dose: 650 mg Artificial Tears (Artificial Tears 15 Ml Drops) 2 drop EYE-BOTH Q4H PRN PRN Reason: Dry Eyes Chlorhexidine Gluconate (Chlorhexidine Gluc Oral Rinse 15 Ml Mouthwash) 15 ml BUCCAL TID RADHA Last Admin: 01/29/25 08:06 Dose: 15 ml Enoxaparin Sodium (Enoxaparin Sodium 40 Mg/0.4 Ml Syringe) 40 mg SUBCUT Q24H [facility] Last Admin: 01/29/25 11:04 Dose: 40 mg Famotidine (Famotidine/Pf 20 Mg/2 Ml Vial) 20 mg IVPUSH DAILY [facility] Last Admin: 01/29/25 08:06 Dose: 20 mg Propofol (Diprivan) 1,000 mg in 100 mls @ 0 mls/hr IVCONT .Q0M [facility]; Protocol Last Admin: 01/29/25 11:49 Dose: 50 mcg/kg/min, 32.13 mls/hr Norepinephrine Bitartrate (Levophed) 8 mg in 250 mls @ 0 mls/hr IVCONT .Q0M [facility]; Protocol Last Titration: 01/29/25 07:53 Dose: 0.05 mcg/kg/min, 10.04 mls/hr Cefazolin Sodium/Dextrose (Ancef) 2 gm in 50 mls @ 100 mls/hr IV PREOP ONE Stop: 01/30/25 13:42 Insulin Human Lispro (Insulin Lispro 100 Unit/Ml 3 Ml Vial) 0 unit SUBCUT Q6H [facility]; Protocol Last Admin: 01/29/25 12:40 Dose: Not Given Lactulose (Lactulose 20 Gm/30 Ml Solution) 30 gm PO DAILY PRN PRN Reason: constipation Levothyroxine Sodium (Levothyroxine Sodium 88 Mcg Tablet) 88 mcg PO DAILY@0600 [facility] Last Admin: 01/29/25 06:23 Dose: 88 mcg Magnesium Hydroxide (Milk Of Magnesia 30 Ml Oral.Susp) 30 ml PO DAILY PRN PRN Reason: Constipation Ondansetron HCl (Ondansetron Hcl 4 Mg/2 Ml Vial) 4 mg IVPUSH Q6H PRN PRN Reason: Nausea and Vomiting Last Admin: 01/24/25 13:51 Dose: 4 mg Sodium Chloride (0.9 % Sodium Chloride Flush 3 Ml Syringe) 3 ml IVFLUSH QSHIFT [facility] Last Admin: 01/29/25 07:53 Dose: 3 ml Home Medications ?Medication ?Instructions ?Recorded ?Confirmed ?Last Taken ?Type galcanezumab-gnlm 120 mg/mL 120 mg subcut QMONTH 05/08/20 01/07/25 07/04/24 History subcutaneous pen injector (Emgality Pen) riboflavin (vitamin B2) 100 mg 200 mg PO BID 05/29/20 01/07/25 Unknown History tablet atorvastatin 10 mg tablet 40 mg PO BEDTIME 07/23/21 01/07/25 Unknown History chlorthalidone 25 mg tablet 25 mg PO DAILY 07/30/21 01/07/25 Unknown History semaglutide 0.25 mg or 0.5 mg (2 0.5 mg subcut TH 06/24/23 01/07/25 12/28/24 History mg/3 mL) subcutaneous pen injector (Ozempic) lisinopril 10 mg tablet 10 mg PO DAILY 07/30/23 01/07/25 07/20/24 History acetaminophen 500 mg tablet 500 - 1,000 mg PO Q8H PRN Fever Or 01/07/25 01/07/25 Unknown History Pain celecoxib 200 mg capsule 200 mg PO BID PRN mild pain 01/07/25 01/07/25 Unknown History docusate sodium 100 mg capsule 100 mg PO BEDTIME 01/07/25 01/07/25 Unknown History (Stool Softener) hydroxyzine HCl 25 mg tablet 25 mg PO BID PRN Anxiety 01/07/25 01/07/25 Unknown History ibuprofen 400 mg tablet 400 mg PO Q6H PRN Pain 01/07/25 01/07/25 Unknown History loratadine 10 mg tablet 10 mg PO BEDTIME PRN Allergy 01/07/25 01/07/25 Unknown History Symptoms olmesartan 5 mg tablet 5 mg PO DAILY 01/07/25 01/07/25 Unknown History Exam Height,Weight and Vital Signs: Height 5 ft 4 in Weight 94 kg Last Vital Signs Temp 96.4 F L 01/29/25 12:00 Pulse 75 01/29/25 13:00 Resp 25 H 01/29/25 13:00 BP 135/72 01/29/25 13:00 Pulse Ox 93 01/29/25 13:00 O2 Del Method Mechanical Ventilation 01/29/25 13:00 O2 Flow Rate 2 01/23/25 13:00 FiO2 21 01/29/25 13:00 Oxygen Flow Rate 45 01/22/25 12:00 Pertinent Lab Results Pertinent Lab Results: Laboratory Tests 01/06/25 01/06/25 01/06/25 20:14 20:25 23:32 WBC 10.7 RBC 4.51 Hgb 12.7 Hct 36.8 L MCV 81.6 MCH 28.2 MCHC 34.5 RDW 14.3 Plt Count 333 MPV 8.7 L Immature Gran % (Auto) 0.4 Neut % (Auto) 78.6 H Lymph % (Auto) 15.9 L [place] % (Auto) 4.6 Eos % (Auto) 0.2 Baso % (Auto) 0.3 Lymph # (Auto) 1.7 [place] # (Auto) 0.5 Eos # (Auto) 0.0 Baso # (Auto) 0.0 Abs Immat Gran (auto) 0.04 H Absolute Neuts (auto) 8.4 H Absolute Nucleated RBC 0.000 Nucleated RBC % (auto) 0.0 Neutrophils % (Manual) Band Neutrophils % Lymphocytes % (Manual) Monocytes % (Manual) Abs Neuts (Manual) Lymphocytes # (Manual) Monocytes # (Manual) Smudge Cells Toxic Vacuolation Platelet Estimate Plt Morphology Comment RBC Morphology Ovalocytes Smear Tech's Comments ESR PT INR O2 Saturation ABG pH at Pt Temp ABG pCO2 at Pt Temp ABG pO2 at Pt Temp ABG HCO3 ABG Base Excess (Actual) VBG pH 7.37 VBG pCO2 69 VBG pO2 82 VBG HCO3 40 H VBG O2 Saturation 94.0 VBG Base Excess 12.0 Sodium 137 Potassium 3.7 Chloride 94 L Carbon Dioxide 32 H Anion Gap 15 BUN 15 Creatinine 0.42 L Estim Creat Clear Calc 192.1 Estimated GFR > 60 POC Glucose Random Glucose 120 H Lactic Acid 0.9 Lactic Acid F/U @ 2Hr Calcium 9.4 D Phosphorus Magnesium Total Bilirubin 0.3 AST 21 ALT 17 Alkaline Phosphatase 95 Total Creatine Kinase 115 Troponin I High Sens < 2.7 C-Reactive Protein B-Natriuretic Peptide 12 Total Protein 8.0 Albumin 4.4 Triglycerides Beta HCG, Quant < 2 Nasal Screen MRSA (PCR) Nasal S. aureus Screen Nasal MRSA/S.aureus Interp Vancomycin Trough Random Vancomycin Urine Opiates Screen Ur Buprenorphine Scrn Ur Oxycodone Screen Urine Methadone Screen Urine Fentanyl Screen Ur Barbiturates Screen Ur Phencyclidine Scrn Ur Amphetamines Screen U Benzodiazepines Scrn Urine Cocaine Screen U Marijuana (THC) Screen SUKHJINDER Screen SUKHJINDER Titer SUKHJINDER Titer 2 SUKHJINDER Titer 3 SUKHJINDER Pattern SUKHJINDER Pattern 2 SUKHJINDER Pattern 3 Herpes Simplex Culture HSV I IgG Ab HSV II IgG Influenza Type A (PCR) NEGATIVE Influenza Type B (PCR) NEGATIVE RSV RNA Qual (PCR) NEGATIVE SARS-CoV-2 RNA (RT-PCR) NEGATIVE Ref Lab Test Result 01/08/25 01/08/25 01/08/25 04:08 04:11 11:18 WBC 15.9 H RBC 4.78 Hgb 13.2 Hct 41.6 MCV 87.0 D MCH 27.6 MCHC 31.7 RDW 14.3 Plt Count 519 H D MPV 8.8 L Immature Gran % (Auto) Neut % (Auto) Lymph % (Auto) [place] % (Auto) Eos % (Auto) Baso % (Auto) Lymph # (Auto) [place] # (Auto) Eos # (Auto) Baso # (Auto) Abs Immat Gran (auto) Absolute Neuts (auto) Absolute Nucleated RBC 0.000 Nucleated RBC % (auto) 0.0 Neutrophils % (Manual) Band Neutrophils % Lymphocytes % (Manual) Monocytes % (Manual) Abs Neuts (Manual) Lymphocytes # (Manual) Monocytes # (Manual) Smudge Cells Toxic Vacuolation Platelet Estimate Plt Morphology Comment RBC Morphology Ovalocytes Smear Tech's Comments ESR PT INR O2 Saturation ABG pH at Pt Temp ABG pCO2 at Pt Temp ABG pO2 at Pt Temp ABG HCO3 ABG Base Excess (Actual) VBG pH 7.18 L* 7.35 VBG pCO2 117 88 VBG pO2 168 42 VBG HCO3 44 H 49 H VBG O2 Saturation 100.0 64.0 VBG Base Excess 10.3 18.5 Sodium 139 Potassium 4.4 Chloride 94 L Carbon Dioxide 37 H Anion Gap 12 BUN 11 Creatinine 0.40 L Estim Creat Clear Calc 201.8 Estimated GFR > 60 POC Glucose Random Glucose 164 H Lactic Acid Lactic Acid F/U @ 2Hr Calcium 9.5 Phosphorus Magnesium 2.3 Total Bilirubin AST ALT Alkaline Phosphatase Total Creatine Kinase Troponin I High Sens C-Reactive Protein B-Natriuretic Peptide Total Protein Albumin Triglycerides Beta HCG, Quant Nasal Screen MRSA (PCR) Nasal S. aureus Screen Nasal MRSA/S.aureus Interp Vancomycin Trough Random Vancomycin Urine Opiates Screen Ur Buprenorphine Scrn Ur Oxycodone Screen Urine Methadone Screen Urine Fentanyl Screen Ur Barbiturates Screen Ur Phencyclidine Scrn Ur Amphetamines Screen U Benzodiazepines Scrn Urine Cocaine Screen U Marijuana (THC) Screen SUKHJINDER Screen NEGATIVE SUKHJINDER Titer TNP SUKHJINDER Titer 2 TNP SUKHJINDER Titer 3 TNP SUKHJINDER Pattern TNP SUKHJINDER Pattern 2 TNP SUKHJINDER Pattern 3 TNP Herpes Simplex Culture HSV I IgG Ab HSV II IgG Influenza Type A (PCR) Influenza Type B (PCR) RSV RNA Qual (PCR) SARS-CoV-2 RNA (RT-PCR) Ref Lab Test Result 01/09/25 01/09/25 01/09/25 05:21 05:28 05:45 WBC 11.9 H RBC 4.45 Hgb 12.6 Hct 39.3 MCV 88.3 MCH 28.3 MCHC 32.1 RDW 14.1 Plt Count 523 H MPV 8.6 L Immature Gran % (Auto) 0.5 H Neut % (Auto) 90.0 H Lymph % (Auto) 5.8 L [place] % (Auto) 3.2 Eos % (Auto) 0.4 Baso % (Auto) 0.1 Lymph # (Auto) 0.7 L [place] # (Auto) 0.4 Eos # (Auto) 0.1 Baso # (Auto) 0.0 Abs Immat Gran (auto) 0.06 H Absolute Neuts (auto) 10.7 H Absolute Nucleated RBC 0.000 Nucleated RBC % (auto) 0.0 Neutrophils % (Manual) Band Neutrophils % Lymphocytes % (Manual) Monocytes % (Manual) Abs Neuts (Manual) Lymphocytes # (Manual) Monocytes # (Manual) Smudge Cells Toxic Vacuolation Platelet Estimate Plt Morphology Comment RBC Morphology Ovalocytes Smear Tech's Comments ESR 30 H PT 12.0 INR 1.0 O2 Saturation TNP ABG pH at Pt Temp 6.99 L* ABG pCO2 at Pt Temp > 150 H* ABG pO2 at Pt Temp 154 H ABG HCO3 TNP ABG Base Excess (Actual) TNP VBG pH VBG pCO2 VBG pO2 VBG HCO3 VBG O2 Saturation VBG Base Excess Sodium 142 Potassium 4.2 Chloride 91 L Carbon Dioxide 42 H* Anion Gap 13 BUN 19 H Creatinine 0.64 Estim Creat Clear Calc 126.1 Estimated GFR > 60 POC Glucose 139 H Random Glucose 141 H Lactic Acid 1.8 Lactic Acid F/U @ 2Hr Calcium 9.5 Phosphorus 6.0 H Magnesium 2.7 H Total Bilirubin 0.2 AST 25 ALT 29 Alkaline Phosphatase 98 Total Creatine Kinase 112 Troponin I High Sens 4.4 D C-Reactive Protein 1.01 H B-Natriuretic Peptide 63 Total Protein 7.8 Albumin 4.2 Triglycerides Beta HCG, Quant Nasal Screen MRSA (PCR) Nasal S. aureus Screen Nasal MRSA/S.aureus Interp Vancomycin Trough Random Vancomycin Urine Opiates Screen Ur Buprenorphine Scrn Ur Oxycodone Screen Urine Methadone Screen Urine Fentanyl Screen Ur Barbiturates Screen Ur Phencyclidine Scrn Ur Amphetamines Screen U Benzodiazepines Scrn Urine Cocaine Screen U Marijuana (THC) Screen SUKHJINDER Screen SUKHJINDER Titer SUKHJINDER Titer 2 SUKHJINDER Titer 3 SUKHJINDER Pattern SUKHJINDER Pattern 2 SUKHJINDER Pattern 3 Herpes Simplex Culture HSV I IgG Ab HSV II IgG Influenza Type A (PCR) Influenza Type B (PCR) RSV RNA Qual (PCR) SARS-CoV-2 RNA (RT-PCR) Ref Lab Test Result 01/09/25 01/09/25 01/09/25 05:53 06:33 09:22 WBC RBC Hgb Hct MCV MCH MCHC RDW Plt Count MPV Immature Gran % (Auto) Neut % (Auto) Lymph % (Auto) [place] % (Auto) Eos % (Auto) Baso % (Auto) Lymph # (Auto) [place] # (Auto) Eos # (Auto) Baso # (Auto) Abs Immat Gran (auto) Absolute Neuts (auto) Absolute Nucleated RBC Nucleated RBC % (auto) Neutrophils % (Manual) Band Neutrophils % Lymphocytes % (Manual) Monocytes % (Manual) Abs Neuts (Manual) Lymphocytes # (Manual) Monocytes # (Manual) Smudge Cells Toxic Vacuolation Platelet Estimate Plt Morphology Comment RBC Morphology Ovalocytes Smear Tech's Comments ESR PT INR O2 Saturation 93.0 ABG pH at Pt Temp 7.54 H ABG pCO2 at Pt Temp 48 H ABG pO2 at Pt Temp 58 L ABG HCO3 41 H ABG Base Excess (Actual) 16.4 VBG pH 7.33 7.38 VBG pCO2 83 81 VBG pO2 74 157 VBG HCO3 45 H 48 H VBG O2 Saturation 97.0 99.0 VBG Base Excess 15.1 18.1 Sodium Potassium Chloride Carbon Dioxide Anion Gap BUN Creatinine Estim Creat Clear Calc Estimated GFR POC Glucose Random Glucose Lactic Acid Lactic Acid F/U @ 2Hr Calcium Phosphorus Magnesium Total Bilirubin AST ALT Alkaline Phosphatase Total Creatine Kinase Troponin I High Sens C-Reactive Protein B-Natriuretic Peptide Total Protein Albumin Triglycerides Beta HCG, Quant Nasal Screen MRSA (PCR) Nasal S. aureus Screen Nasal MRSA/S.aureus Interp Vancomycin Trough Random Vancomycin Urine Opiates Screen Ur Buprenorphine Scrn Ur Oxycodone Screen Urine Methadone Screen Urine Fentanyl Screen Ur Barbiturates Screen Ur Phencyclidine Scrn Ur Amphetamines Screen U Benzodiazepines Scrn Urine Cocaine Screen U Marijuana (THC) Screen SUKHJINDER Screen SUKHJINDER Titer SUKHJINDER Titer 2 SUKHJINDER Titer 3 SUKHJINDER Pattern SUKHJINDER Pattern 2 SUKHJINDER Pattern 3 Herpes Simplex Culture HSV I IgG Ab HSV II IgG Influenza Type A (PCR) Influenza Type B (PCR) RSV RNA Qual (PCR) SARS-CoV-2 RNA (RT-PCR) Ref Lab Test Result 01/10/25 01/10/25 01/10/25 04:46 04:52 12:15 WBC 16.7 H RBC 4.59 Hgb 12.8 Hct 37.9 MCV 82.6 D MCH 27.9 MCHC 33.8 RDW 13.8 Plt Count 402 H MPV 9.0 L Immature Gran % (Auto) 0.5 H Neut % (Auto) 77.2 H Lymph % (Auto) 15.6 L [place] % (Auto) 6.1 Eos % (Auto) 0.4 Baso % (Auto) 0.2 Lymph # (Auto) 2.6 [place] # (Auto) 1.0 Eos # (Auto) 0.1 Baso # (Auto) 0.0 Abs Immat Gran (auto) 0.08 H Absolute Neuts (auto) 12.9 H Absolute Nucleated RBC 0.000 Nucleated RBC % (auto) 0.0 Neutrophils % (Manual) Band Neutrophils % Lymphocytes % (Manual) Monocytes % (Manual) Abs Neuts (Manual) Lymphocytes # (Manual) Monocytes # (Manual) Smudge Cells Toxic Vacuolation Platelet Estimate Plt Morphology Comment RBC Morphology Ovalocytes Smear Tech's Comments ESR PT INR O2 Saturation 94.0 ABG pH at Pt Temp 7.50 H ABG pCO2 at Pt Temp 56 H ABG pO2 at Pt Temp 69 L ABG HCO3 45 H ABG Base Excess (Actual) 18.9 VBG pH 7.65 H* VBG pCO2 35 VBG pO2 31 VBG HCO3 40 H VBG O2 Saturation 59.0 VBG Base Excess 18.2 Sodium 138 Potassium 2.3 L* D Chloride 89 L Carbon Dioxide 34 H Anion Gap 17 BUN 17 H Creatinine 0.53 Estim Creat Clear Calc 152.2 Estimated GFR > 60 POC Glucose Random Glucose 157 H Lactic Acid Lactic Acid F/U @ 2Hr Calcium 9.5 Phosphorus < 0.5 L* Magnesium 1.8 Total Bilirubin AST ALT Alkaline Phosphatase Total Creatine Kinase Troponin I High Sens C-Reactive Protein B-Natriuretic Peptide Total Protein Albumin 3.8 Triglycerides Beta HCG, Quant Nasal Screen MRSA (PCR) Nasal S. aureus Screen Nasal MRSA/S.aureus Interp Vancomycin Trough Random Vancomycin Urine Opiates Screen Ur Buprenorphine Scrn Ur Oxycodone Screen Urine Methadone Screen Urine Fentanyl Screen Ur Barbiturates Screen Ur Phencyclidine Scrn Ur Amphetamines Screen U Benzodiazepines Scrn Urine Cocaine Screen U Marijuana (THC) Screen SUKHJINDER Screen SUKHJINDER Titer SUKHJINDER Titer 2 SUKHJINDER Titer 3 SUKHJINDER Pattern SUKHJINDER Pattern 2 SUKHJINDER Pattern 3 Herpes Simplex Culture HSV I IgG Ab HSV II IgG Influenza Type A (PCR) Influenza Type B (PCR) RSV RNA Qual (PCR) SARS-CoV-2 RNA (RT-PCR) Ref Lab Test Result 01/10/25 01/10/25 01/10/25 16:10 21:57 23:14 WBC RBC Hgb Hct MCV MCH MCHC RDW Plt Count MPV Immature Gran % (Auto) Neut % (Auto) Lymph % (Auto) [place] % (Auto) Eos % (Auto) Baso % (Auto) Lymph # (Auto) [place] # (Auto) Eos # (Auto) Baso # (Auto) Abs Immat Gran (auto) Absolute Neuts (auto) Absolute Nucleated RBC Nucleated RBC % (auto) Neutrophils % (Manual) Band Neutrophils % Lymphocytes % (Manual) Monocytes % (Manual) Abs Neuts (Manual) Lymphocytes # (Manual) Monocytes # (Manual) Smudge Cells Toxic Vacuolation Platelet Estimate Plt Morphology Comment RBC Morphology Ovalocytes Smear Tech's Comments ESR PT INR O2 Saturation 75.0 ABG pH at Pt Temp 7.48 H ABG pCO2 at Pt Temp 60 H* ABG pO2 at Pt Temp 48 L* ABG HCO3 45 H ABG Base Excess (Actual) 19.0 VBG pH VBG pCO2 VBG pO2 VBG HCO3 VBG O2 Saturation VBG Base Excess Sodium 140 140 Potassium 3.1 L D 3.4 Chloride 93 L 94 L Carbon Dioxide 38 H 35 H Anion Gap 12 14 BUN 14 14 Creatinine 0.45 L 0.44 L Estim Creat Clear Calc 175.6 179.6 Estimated GFR > 60 > 60 POC Glucose Random Glucose 133 H 90 Lactic Acid Lactic Acid F/U @ 2Hr Calcium 8.6 D 8.5 Phosphorus 3.9 2.8 Magnesium 1.8 1.8 Total Bilirubin AST ALT Alkaline Phosphatase Total Creatine Kinase Troponin I High Sens C-Reactive Protein B-Natriuretic Peptide Total Protein Albumin Triglycerides Beta HCG, Quant Nasal Screen MRSA (PCR) Nasal S. aureus Screen Nasal MRSA/S.aureus Interp Vancomycin Trough Random Vancomycin Urine Opiates Screen Ur Buprenorphine Scrn Ur Oxycodone Screen Urine Methadone Screen Urine Fentanyl Screen Ur Barbiturates Screen Ur Phencyclidine Scrn Ur Amphetamines Screen U Benzodiazepines Scrn Urine Cocaine Screen U Marijuana (THC) Screen SUKHJINDER Screen SUKHJINDER Titer SUKHJINDER Titer 2 SUKHJINDER Titer 3 SUKHJINDER Pattern SUKHJINDER Pattern 2 SUKHJINDER Pattern 3 Herpes Simplex Culture HSV I IgG Ab HSV II IgG Influenza Type A (PCR) Influenza Type B (PCR) RSV RNA Qual (PCR) SARS-CoV-2 RNA (RT-PCR) Ref Lab Test Result 01/11/25 01/11/25 01/11/25 04:56 04:57 15:24 WBC 18.0 H RBC 4.25 Hgb 11.7 L Hct 34.9 L MCV 82.1 MCH 27.5 MCHC 33.5 RDW 14.9 Plt Count 275 D MPV 8.9 L Immature Gran % (Auto) Cancelled Neut % (Auto) Cancelled Lymph % (Auto) Cancelled [place] % (Auto) Cancelled Eos % (Auto) Cancelled Baso % (Auto) Cancelled Lymph # (Auto) Cancelled [place] # (Auto) Cancelled Eos # (Auto) Cancelled Baso # (Auto) Cancelled Abs Immat Gran (auto) Cancelled Absolute Neuts (auto) Cancelled Absolute Nucleated RBC 0.000 Nucleated RBC % (auto) 0.0 Neutrophils % (Manual) 89 H Band Neutrophils % 3 Lymphocytes % (Manual) 3 L Monocytes % (Manual) 5 Abs Neuts (Manual) 16.6 H Lymphocytes # (Manual) 0.5 L Monocytes # (Manual) 0.9 Smudge Cells Toxic Vacuolation Platelet Estimate NORMAL Plt Morphology Comment NORMAL RBC Morphology NORMAL Ovalocytes Smear Tech's Comments ESR PT INR O2 Saturation ABG pH at Pt Temp ABG pCO2 at Pt Temp ABG pO2 at Pt Temp ABG HCO3 ABG Base Excess (Actual) VBG pH 7.50 H VBG pCO2 56 VBG pO2 54 VBG HCO3 45 H VBG O2 Saturation 83.0 VBG Base Excess 18.9 Sodium 141 Potassium 3.0 L Chloride 91 L Carbon Dioxide 37 H Anion Gap 16 BUN 11 Creatinine 0.43 L Estim Creat Clear Calc 183.8 Estimated GFR > 60 POC Glucose Random Glucose 112 Lactic Acid Lactic Acid F/U @ 2Hr Calcium 8.4 Phosphorus 3.2 Magnesium 1.7 Total Bilirubin AST ALT Alkaline Phosphatase Total Creatine Kinase Troponin I High Sens C-Reactive Protein B-Natriuretic Peptide Total Protein Albumin 3.6 Triglycerides Beta HCG, Quant Nasal Screen MRSA (PCR) Nasal S. aureus Screen Nasal MRSA/S.aureus Interp Vancomycin Trough Random Vancomycin Urine Opiates Screen Not Detected Ur Buprenorphine Scrn Not Detected Ur Oxycodone Screen Not Detected Urine Methadone Screen Not Detected Urine Fentanyl Screen Not Detected Ur Barbiturates Screen Not Detected Ur Phencyclidine Scrn Not Detected Ur Amphetamines Screen Not Detected U Benzodiazepines Scrn Not Detected Urine Cocaine Screen Not Detected U Marijuana (THC) Screen Not Detected SUKHJINDER Screen SUKHJINDER Titer SUKHJINDER Titer 2 SUKHJINDER Titer 3 SUKHJINDER Pattern SUKHJINDER Pattern 2 SUKHJINDER Pattern 3 Herpes Simplex Culture HSV I IgG Ab HSV II IgG Influenza Type A (PCR) Influenza Type B (PCR) RSV RNA Qual (PCR) SARS-CoV-2 RNA (RT-PCR) Ref Lab Test Result 01/11/25 01/11/25 01/11/25 19:04 20:01 20:03 WBC RBC Hgb Hct MCV MCH MCHC RDW Plt Count MPV Immature Gran % (Auto) Neut % (Auto) Lymph % (Auto) [place] % (Auto) Eos % (Auto) Baso % (Auto) Lymph # (Auto) [place] # (Auto) Eos # (Auto) Baso # (Auto) Abs Immat Gran (auto) Absolute Neuts (auto) Absolute Nucleated RBC Nucleated RBC % (auto) Neutrophils % (Manual) Band Neutrophils % Lymphocytes % (Manual) Monocytes % (Manual) Abs Neuts (Manual) Lymphocytes # (Manual) Monocytes # (Manual) Smudge Cells Toxic Vacuolation Platelet Estimate Plt Morphology Comment RBC Morphology Ovalocytes Smear Tech's Comments ESR PT INR O2 Saturation 79.0 ABG pH at Pt Temp 7.27 L ABG pCO2 at Pt Temp 100 H* ABG pO2 at Pt Temp 60 L ABG HCO3 46 H ABG Base Excess (Actual) 14.0 VBG pH 7.37 VBG pCO2 71 VBG pO2 27 VBG HCO3 41 H VBG O2 Saturation < 30.0 VBG Base Excess 13.0 Sodium 140 Potassium 4.2 D Chloride 92 L Carbon Dioxide 34 H Anion Gap 18 BUN 13 Creatinine 0.48 L Estim Creat Clear Calc 164.1 Estimated GFR > 60 POC Glucose Random Glucose 141 H Lactic Acid Lactic Acid F/U @ 2Hr Calcium 9.2 D Phosphorus 4.6 H Magnesium 2.2 Total Bilirubin AST ALT Alkaline Phosphatase Total Creatine Kinase Troponin I High Sens C-Reactive Protein B-Natriuretic Peptide Total Protein Albumin 4.2 Triglycerides Beta HCG, Quant Nasal Screen MRSA (PCR) Nasal S. aureus Screen Nasal MRSA/S.aureus Interp Vancomycin Trough Random Vancomycin Urine Opiates Screen Ur Buprenorphine Scrn Ur Oxycodone Screen Urine Methadone Screen Urine Fentanyl Screen Ur Barbiturates Screen Ur Phencyclidine Scrn Ur Amphetamines Screen U Benzodiazepines Scrn Urine Cocaine Screen U Marijuana (THC) Screen SUKHJINDER Screen SUKHJINDER Titer SUKHJINDER Titer 2 SUKHJINDER Titer 3 SUKHJINDER Pattern SUKHJINDER Pattern 2 SUKHJINDER Pattern 3 Herpes Simplex Culture HSV I IgG Ab HSV II IgG Influenza Type A (PCR) Influenza Type B (PCR) RSV RNA Qual (PCR) SARS-CoV-2 RNA (RT-PCR) Ref Lab Test Result 01/11/25 01/11/25 01/11/25 20:57 21:36 22:34 WBC RBC Hgb Hct MCV MCH MCHC RDW Plt Count MPV Immature Gran % (Auto) Neut % (Auto) Lymph % (Auto) [place] % (Auto) Eos % (Auto) Baso % (Auto) Lymph # (Auto) [place] # (Auto) Eos # (Auto) Baso # (Auto) Abs Immat Gran (auto) Absolute Neuts (auto) Absolute Nucleated RBC Nucleated RBC % (auto) Neutrophils % (Manual) Band Neutrophils % Lymphocytes % (Manual) Monocytes % (Manual) Abs Neuts (Manual) Lymphocytes # (Manual) Monocytes # (Manual) Smudge Cells Toxic Vacuolation Platelet Estimate Plt Morphology Comment RBC Morphology Ovalocytes Smear Tech's Comments ESR PT INR O2 Saturation 95.0 ABG pH at Pt Temp 7.49 H ABG pCO2 at Pt Temp 44 ABG pO2 at Pt Temp 74 L ABG HCO3 34 H ABG Base Excess (Actual) 10.3 VBG pH 7.49 H VBG pCO2 49 VBG pO2 32 VBG HCO3 38 H VBG O2 Saturation 50.0 VBG Base Excess 13.2 Sodium Potassium Chloride Carbon Dioxide Anion Gap BUN Creatinine Estim Creat Clear Calc Estimated GFR POC Glucose Random Glucose Lactic Acid Lactic Acid F/U @ 2Hr Calcium Phosphorus Magnesium Total Bilirubin AST ALT Alkaline Phosphatase Total Creatine Kinase Troponin I High Sens 26.1 H D C-Reactive Protein B-Natriuretic Peptide 34 Total Protein Albumin Triglycerides Beta HCG, Quant Nasal Screen MRSA (PCR) Nasal S. aureus Screen Nasal MRSA/S.aureus Interp Vancomycin Trough Random Vancomycin Urine Opiates Screen Ur Buprenorphine Scrn Ur Oxycodone Screen Urine Methadone Screen Urine Fentanyl Screen Ur Barbiturates Screen Ur Phencyclidine Scrn Ur Amphetamines Screen U Benzodiazepines Scrn Urine Cocaine Screen U Marijuana (THC) Screen SUKHJINDER Screen SUKHJINDER Titer SUKHJINDER Titer 2 SUKHJINDER Titer 3 SUKHJINDER Pattern SUKHJINDER Pattern 2 SUKHJINDER Pattern 3 Herpes Simplex Culture HSV I IgG Ab HSV II IgG Influenza Type A (PCR) Influenza Type B (PCR) RSV RNA Qual (PCR) SARS-CoV-2 RNA (RT-PCR) Ref Lab Test Result 01/11/25 01/12/25 01/12/25 22:38 00:57 04:57 WBC 25.6 H RBC 3.75 L Hgb 10.5 L Hct 30.4 L MCV 81.1 MCH 28.0 MCHC 34.5 RDW 14.6 Plt Count 438 H D MPV 9.3 L Immature Gran % (Auto) Cancelled Neut % (Auto) Cancelled Lymph % (Auto) Cancelled [place] % (Auto) Cancelled Eos % (Auto) Cancelled Baso % (Auto) Cancelled Lymph # (Auto) Cancelled [place] # (Auto) Cancelled Eos # (Auto) Cancelled Baso # (Auto) Cancelled Abs Immat Gran (auto) Cancelled Absolute Neuts (auto) Cancelled Absolute Nucleated RBC 0.000 Nucleated RBC % (auto) 0.0 Neutrophils % (Manual) 95 H Band Neutrophils % 0 L Lymphocytes % (Manual) 4 L Monocytes % (Manual) 1 L Abs Neuts (Manual) 24.3 H Lymphocytes # (Manual) 1.0 L Monocytes # (Manual) 0.3 Smudge Cells PRESENT Toxic Vacuolation PRESENT Platelet Estimate NORMAL Plt Morphology Comment NORMAL RBC Morphology NOTED Ovalocytes 1+ (5-14) Smear Tech's Comments ESR PT INR O2 Saturation ABG pH at Pt Temp ABG pCO2 at Pt Temp ABG pO2 at Pt Temp ABG HCO3 ABG Base Excess (Actual) VBG pH 7.60 H* VBG pCO2 30 VBG pO2 39 VBG HCO3 30 H VBG O2 Saturation 67.0 VBG Base Excess 9.4 Sodium 139 Potassium 2.6 L* D Chloride 94 L Carbon Dioxide 28 Anion Gap 20 BUN 14 Creatinine 0.49 L Estim Creat Clear Calc 162.0 Estimated GFR > 60 POC Glucose Random Glucose 214 H Lactic Acid 3.1 H* Lactic Acid F/U @ 2Hr 1.8 Calcium 8.7 Phosphorus 1.3 L Magnesium 1.8 Total Bilirubin AST ALT Alkaline Phosphatase Total Creatine Kinase Troponin I High Sens C-Reactive Protein B-Natriuretic Peptide Total Protein Albumin 4.2 Triglycerides Beta HCG, Quant Nasal Screen MRSA (PCR) Nasal S. aureus Screen Nasal MRSA/S.aureus Interp Vancomycin Trough Random Vancomycin Urine Opiates Screen Ur Buprenorphine Scrn Ur Oxycodone Screen Urine Methadone Screen Urine Fentanyl Screen Ur Barbiturates Screen Ur Phencyclidine Scrn Ur Amphetamines Screen U Benzodiazepines Scrn Urine Cocaine Screen U Marijuana (THC) Screen SUKHJINDER Screen SUKHJINDER Titer SUKHJINDER Titer 2 SUKHJINDER Titer 3 SUKHJINDER Pattern SUKHJINDER Pattern 2 SUKHJINDER Pattern 3 Herpes Simplex Culture HSV I IgG Ab HSV II IgG Influenza Type A (PCR) Influenza Type B (PCR) RSV RNA Qual (PCR) SARS-CoV-2 RNA (RT-PCR) Ref Lab Test Result 01/12/25 01/12/25 01/12/25 10:00 10:00 19:07 WBC RBC Hgb Hct MCV MCH MCHC RDW Plt Count MPV Immature Gran % (Auto) Neut % (Auto) Lymph % (Auto) [place] % (Auto) Eos % (Auto) Baso % (Auto) Lymph # (Auto) [place] # (Auto) Eos # (Auto) Baso # (Auto) Abs Immat Gran (auto) Absolute Neuts (auto) Absolute Nucleated RBC Nucleated RBC % (auto) Neutrophils % (Manual) Band Neutrophils % Lymphocytes % (Manual) Monocytes % (Manual) Abs Neuts (Manual) Lymphocytes # (Manual) Monocytes # (Manual) Smudge Cells Toxic Vacuolation Platelet Estimate Plt Morphology Comment RBC Morphology Ovalocytes Smear Tech's Comments ESR PT INR O2 Saturation ABG pH at Pt Temp ABG pCO2 at Pt Temp ABG pO2 at Pt Temp ABG HCO3 ABG Base Excess (Actual) VBG pH VBG pCO2 VBG pO2 VBG HCO3 VBG O2 Saturation VBG Base Excess Sodium 142 Potassium 2.5 L* Chloride 99 Carbon Dioxide 29 Anion Gap 17 BUN 14 Creatinine 0.51 Estim Creat Clear Calc 155.6 Estimated GFR > 60 POC Glucose Random Glucose 221 H Lactic Acid Lactic Acid F/U @ 2Hr Calcium 8.7 Phosphorus 2.5 L Magnesium 2.0 Total Bilirubin AST ALT Alkaline Phosphatase Total Creatine Kinase Troponin I High Sens C-Reactive Protein B-Natriuretic Peptide Total Protein Albumin 4.1 Triglycerides Beta HCG, Quant Nasal Screen MRSA (PCR) Nasal S. aureus Screen Nasal MRSA/S.aureus Interp Vancomycin Trough Random Vancomycin Urine Opiates Screen Ur Buprenorphine Scrn Ur Oxycodone Screen Urine Methadone Screen Urine Fentanyl Screen Ur Barbiturates Screen Ur Phencyclidine Scrn Ur Amphetamines Screen U Benzodiazepines Scrn Urine Cocaine Screen U Marijuana (THC) Screen SUKHJINDER Screen SUKHJINDER Titer SUKHJINDER Titer 2 SUKHJINDER Titer 3 SUKHJINDER Pattern SUKHJINDER Pattern 2 SUKHJINDER Pattern 3 Herpes Simplex Culture HSV I IgG Ab HSV II IgG Influenza Type A (PCR) Influenza Type B (PCR) RSV RNA Qual (PCR) SARS-CoV-2 RNA (RT-PCR) Ref Lab Test Result SEE NOTE Cancelled 01/12/25 01/12/25 01/13/25 19:14 20:56 05:27 WBC 12.8 H RBC 3.73 L Hgb 10.4 L Hct 30.3 L MCV 81.2 MCH 27.9 MCHC 34.3 RDW 15.0 Plt Count 403 H MPV 9.0 L Immature Gran % (Auto) 0.5 H Neut % (Auto) 88.4 H Lymph % (Auto) 5.7 L [place] % (Auto) 5.3 Eos % (Auto) 0.0 Baso % (Auto) 0.1 Lymph # (Auto) 0.7 L [place] # (Auto) 0.7 Eos # (Auto) 0.0 Baso # (Auto) 0.0 Abs Immat Gran (auto) 0.06 H Absolute Neuts (auto) 11.3 H Absolute Nucleated RBC 0.000 Nucleated RBC % (auto) 0.0 Neutrophils % (Manual) Band Neutrophils % Lymphocytes % (Manual) Monocytes % (Manual) Abs Neuts (Manual) Lymphocytes # (Manual) Monocytes # (Manual) Smudge Cells Toxic Vacuolation Platelet Estimate Plt Morphology Comment RBC Morphology Ovalocytes Smear Tech's Comments ESR PT INR O2 Saturation ABG pH at Pt Temp ABG pCO2 at Pt Temp ABG pO2 at Pt Temp ABG HCO3 ABG Base Excess (Actual) VBG pH 7.52 H 7.48 H VBG pCO2 40 37 VBG pO2 53 41 VBG HCO3 33 H 28 H VBG O2 Saturation 83.0 63.0 VBG Base Excess 10.1 5.0 Sodium 141 Potassium 3.1 L D Chloride 104 Carbon Dioxide 26 Anion Gap 14 BUN 16 Creatinine 0.46 L Estim Creat Clear Calc 173.6 Estimated GFR > 60 POC Glucose Random Glucose 256 H Lactic Acid Lactic Acid F/U @ 2Hr Calcium 8.6 Phosphorus 2.2 L Magnesium 2.2 Total Bilirubin AST ALT Alkaline Phosphatase Total Creatine Kinase Troponin I High Sens C-Reactive Protein B-Natriuretic Peptide Total Protein Albumin 4.0 Triglycerides Beta HCG, Quant Nasal Screen MRSA (PCR) Nasal S. aureus Screen Nasal MRSA/S.aureus Interp Vancomycin Trough Random Vancomycin 12.6 L Urine Opiates Screen Ur Buprenorphine Scrn Ur Oxycodone Screen Urine Methadone Screen Urine Fentanyl Screen Ur Barbiturates Screen Ur Phencyclidine Scrn Ur Amphetamines Screen U Benzodiazepines Scrn Urine Cocaine Screen U Marijuana (THC) Screen SUKHJINDER Screen SUKHJINDER Titer SUKHJINDER Titer 2 SUKHJINDER Titer 3 SUKHJINDER Pattern SUKHJINDER Pattern 2 SUKHJINDER Pattern 3 Herpes Simplex Culture HSV I IgG Ab HSV II IgG Influenza Type A (PCR) Influenza Type B (PCR) RSV RNA Qual (PCR) SARS-CoV-2 RNA (RT-PCR) Ref Lab Test Result 01/13/25 01/13/25 01/13/25 07:57 11:59 17:02 WBC RBC Hgb Hct MCV MCH MCHC RDW Plt Count MPV Immature Gran % (Auto) Neut % (Auto) Lymph % (Auto) [place] % (Auto) Eos % (Auto) Baso % (Auto) Lymph # (Auto) [place] # (Auto) Eos # (Auto) Baso # (Auto) Abs Immat Gran (auto) Absolute Neuts (auto) Absolute Nucleated RBC Nucleated RBC % (auto) Neutrophils % (Manual) Band Neutrophils % Lymphocytes % (Manual) Monocytes % (Manual) Abs Neuts (Manual) Lymphocytes # (Manual) Monocytes # (Manual) Smudge Cells Toxic Vacuolation Platelet Estimate Plt Morphology Comment RBC Morphology Ovalocytes Smear Tech's Comments ESR PT INR O2 Saturation ABG pH at Pt Temp ABG pCO2 at Pt Temp ABG pO2 at Pt Temp ABG HCO3 ABG Base Excess (Actual) VBG pH VBG pCO2 VBG pO2 VBG HCO3 VBG O2 Saturation VBG Base Excess Sodium Potassium Chloride Carbon Dioxide Anion Gap BUN Creatinine Estim Creat Clear Calc Estimated GFR POC Glucose 247 H 218 H 171 H Random Glucose Lactic Acid Lactic Acid F/U @ 2Hr Calcium Phosphorus Magnesium Total Bilirubin AST ALT Alkaline Phosphatase Total Creatine Kinase Troponin I High Sens C-Reactive Protein B-Natriuretic Peptide Total Protein Albumin Triglycerides Beta HCG, Quant Nasal Screen MRSA (PCR) Nasal S. aureus Screen Nasal MRSA/S.aureus Interp Vancomycin Trough Random Vancomycin Urine Opiates Screen Ur Buprenorphine Scrn Ur Oxycodone Screen Urine Methadone Screen Urine Fentanyl Screen Ur Barbiturates Screen Ur Phencyclidine Scrn Ur Amphetamines Screen U Benzodiazepines Scrn Urine Cocaine Screen U Marijuana (THC) Screen SUKHJINDER Screen SUKHJINDER Titer SUKHJINDER Titer 2 SUKHJINDER Titer 3 SUKHJINDER Pattern SUKHJINDER Pattern 2 SUKHJINDER Pattern 3 Herpes Simplex Culture HSV I IgG Ab HSV II IgG Influenza Type A (PCR) Influenza Type B (PCR) RSV RNA Qual (PCR) SARS-CoV-2 RNA (RT-PCR) Ref Lab Test Result 01/13/25 01/13/25 01/13/25 19:20 20:49 23:33 WBC RBC Hgb Hct MCV MCH MCHC RDW Plt Count MPV Immature Gran % (Auto) Neut % (Auto) Lymph % (Auto) [place] % (Auto) Eos % (Auto) Baso % (Auto) Lymph # (Auto) [place] # (Auto) Eos # (Auto) Baso # (Auto) Abs Immat Gran (auto) Absolute Neuts (auto) Absolute Nucleated RBC Nucleated RBC % (auto) Neutrophils % (Manual) Band Neutrophils % Lymphocytes % (Manual) Monocytes % (Manual) Abs Neuts (Manual) Lymphocytes # (Manual) Monocytes # (Manual) Smudge Cells Toxic Vacuolation Platelet Estimate Plt Morphology Comment RBC Morphology Ovalocytes Smear Tech's Comments ESR PT INR O2 Saturation ABG pH at Pt Temp ABG pCO2 at Pt Temp ABG pO2 at Pt Temp ABG HCO3 ABG Base Excess (Actual) VBG pH VBG pCO2 VBG pO2 VBG HCO3 VBG O2 Saturation VBG Base Excess Sodium 143 Potassium 3.9 D Chloride 110 H Carbon Dioxide 24 Anion Gap 13 BUN 16 Creatinine 0.44 L Estim Creat Clear Calc 181.5 Estimated GFR > 60 POC Glucose 176 H Random Glucose 166 H Lactic Acid Lactic Acid F/U @ 2Hr Calcium 8.4 Phosphorus 1.8 L Magnesium 2.2 Total Bilirubin AST ALT Alkaline Phosphatase Total Creatine Kinase Troponin I High Sens C-Reactive Protein B-Natriuretic Peptide Total Protein Albumin Triglycerides Beta HCG, Quant Nasal Screen MRSA (PCR) Nasal S. aureus Screen Nasal MRSA/S.aureus Interp Vancomycin Trough Random Vancomycin 16.6 Urine Opiates Screen Ur Buprenorphine Scrn Ur Oxycodone Screen Urine Methadone Screen Urine Fentanyl Screen Ur Barbiturates Screen Ur Phencyclidine Scrn Ur Amphetamines Screen U Benzodiazepines Scrn Urine Cocaine Screen U Marijuana (THC) Screen SUKHJINDER Screen SUKHJINDER Titer SUKHJINDER Titer 2 SUKHJINDER Titer 3 SUKHJINDER Pattern SUKHJINDER Pattern 2 SUKHJINDER Pattern 3 Herpes Simplex Culture HSV I IgG Ab HSV II IgG Influenza Type A (PCR) Influenza Type B (PCR) RSV RNA Qual (PCR) SARS-CoV-2 RNA (RT-PCR) Ref Lab Test Result 01/14/25 01/14/25 01/14/25 05:37 05:39 11:39 WBC 11.2 H RBC 3.44 L Hgb 9.7 L Hct 28.7 L MCV 83.4 MCH 28.2 MCHC 33.8 RDW 15.4 Plt Count 316 MPV 8.7 L Immature Gran % (Auto) 0.6 H Neut % (Auto) 81.5 H Lymph % (Auto) 8.5 L [place] % (Auto) 9.3 Eos % (Auto) 0.0 Baso % (Auto) 0.1 Lymph # (Auto) 1.0 L [place] # (Auto) 1.1 Eos # (Auto) 0.0 Baso # (Auto) 0.0 Abs Immat Gran (auto) 0.07 H Absolute Neuts (auto) 9.1 H Absolute Nucleated RBC 0.000 Nucleated RBC % (auto) 0.0 Neutrophils % (Manual) Band Neutrophils % Lymphocytes % (Manual) Monocytes % (Manual) Abs Neuts (Manual) Lymphocytes # (Manual) Monocytes # (Manual) Smudge Cells Toxic Vacuolation Platelet Estimate Plt Morphology Comment RBC Morphology Ovalocytes Smear Tech's Comments ESR PT INR O2 Saturation ABG pH at Pt Temp ABG pCO2 at Pt Temp ABG pO2 at Pt Temp ABG HCO3 ABG Base Excess (Actual) VBG pH 7.41 VBG pCO2 39 VBG pO2 47 VBG HCO3 25 VBG O2 Saturation 72.0 VBG Base Excess 1.4 Sodium 144 Potassium 3.9 Chloride 112 H Carbon Dioxide 23 Anion Gap 13 BUN 20 H Creatinine 0.42 L Estim Creat Clear Calc 194.1 Estimated GFR > 60 POC Glucose 149 H Random Glucose 175 H Lactic Acid Lactic Acid F/U @ 2Hr Calcium 8.2 L Phosphorus 3.1 Magnesium 2.1 Total Bilirubin AST ALT Alkaline Phosphatase Total Creatine Kinase Troponin I High Sens C-Reactive Protein B-Natriuretic Peptide Total Protein Albumin 3.5 Triglycerides Beta HCG, Quant Nasal Screen MRSA (PCR) Nasal S. aureus Screen Nasal MRSA/S.aureus Interp Vancomycin Trough Random Vancomycin Urine Opiates Screen Ur Buprenorphine Scrn Ur Oxycodone Screen Urine Methadone Screen Urine Fentanyl Screen Ur Barbiturates Screen Ur Phencyclidine Scrn Ur Amphetamines Screen U Benzodiazepines Scrn Urine Cocaine Screen U Marijuana (THC) Screen SUKHJINDER Screen SUKHJINDER Titer SUKHJINDER Titer 2 SUKHJINDER Titer 3 SUKHJINDER Pattern SUKHJINDER Pattern 2 SUKHJINDER Pattern 3 Herpes Simplex Culture HSV I IgG Ab HSV II IgG Influenza Type A (PCR) Influenza Type B (PCR) RSV RNA Qual (PCR) SARS-CoV-2 RNA (RT-PCR) Ref Lab Test Result 01/14/25 01/14/25 01/14/25 18:21 20:47 23:54 WBC RBC Hgb Hct MCV MCH MCHC RDW Plt Count MPV Immature Gran % (Auto) Neut % (Auto) Lymph % (Auto) [place] % (Auto) Eos % (Auto) Baso % (Auto) Lymph # (Auto) [place] # (Auto) Eos # (Auto) Baso # (Auto) Abs Immat Gran (auto) Absolute Neuts (auto) Absolute Nucleated RBC Nucleated RBC % (auto) Neutrophils % (Manual) Band Neutrophils % Lymphocytes % (Manual) Monocytes % (Manual) Abs Neuts (Manual) Lymphocytes # (Manual) Monocytes # (Manual) Smudge Cells Toxic Vacuolation Platelet Estimate Plt Morphology Comment RBC Morphology Ovalocytes Smear Tech's Comments ESR PT INR O2 Saturation ABG pH at Pt Temp ABG pCO2 at Pt Temp ABG pO2 at Pt Temp ABG HCO3 ABG Base Excess (Actual) VBG pH VBG pCO2 VBG pO2 VBG HCO3 VBG O2 Saturation VBG Base Excess Sodium Potassium Chloride Carbon Dioxide Anion Gap BUN Creatinine Estim Creat Clear Calc Estimated GFR POC Glucose 139 H 155 H Random Glucose Lactic Acid Lactic Acid F/U @ 2Hr Calcium Phosphorus Magnesium Total Bilirubin AST ALT Alkaline Phosphatase Total Creatine Kinase Troponin I High Sens C-Reactive Protein B-Natriuretic Peptide Total Protein Albumin Triglycerides Beta HCG, Quant Nasal Screen MRSA (PCR) Nasal S. aureus Screen Nasal MRSA/S.aureus Interp Vancomycin Trough Random Vancomycin 19.3 Urine Opiates Screen Ur Buprenorphine Scrn Ur Oxycodone Screen Urine Methadone Screen Urine Fentanyl Screen Ur Barbiturates Screen Ur Phencyclidine Scrn Ur Amphetamines Screen U Benzodiazepines Scrn Urine Cocaine Screen U Marijuana (THC) Screen SUKHJINDER Screen SUKHJINDER Titer SUKHJINDER Titer 2 SUKHJINDER Titer 3 SUKHJINDER Pattern SUKHJINDER Pattern 2 SUKHJINDER Pattern 3 Herpes Simplex Culture HSV I IgG Ab HSV II IgG Influenza Type A (PCR) Influenza Type B (PCR) RSV RNA Qual (PCR) SARS-CoV-2 RNA (RT-PCR) Ref Lab Test Result 01/15/25 01/15/25 01/15/25 05:19 05:20 11:20 WBC 13.5 H RBC 3.57 L Hgb 9.8 L Hct 30.1 L MCV 84.3 MCH 27.5 MCHC 32.6 RDW 15.2 Plt Count 321 MPV 8.9 L Immature Gran % (Auto) 0.7 H Neut % (Auto) 69.0 Lymph % (Auto) 22.7 [place] % (Auto) 7.2 Eos % (Auto) 0.3 Baso % (Auto) 0.1 Lymph # (Auto) 3.1 [place] # (Auto) 1.0 Eos # (Auto) 0.0 Baso # (Auto) 0.0 Abs Immat Gran (auto) 0.10 H Absolute Neuts (auto) 9.3 H Absolute Nucleated RBC 0.000 Nucleated RBC % (auto) 0.0 Neutrophils % (Manual) Band Neutrophils % Lymphocytes % (Manual) Monocytes % (Manual) Abs Neuts (Manual) Lymphocytes # (Manual) Monocytes # (Manual) Smudge Cells Toxic Vacuolation Platelet Estimate Plt Morphology Comment RBC Morphology Ovalocytes Smear Tech's Comments ESR PT INR O2 Saturation ABG pH at Pt Temp ABG pCO2 at Pt Temp ABG pO2 at Pt Temp ABG HCO3 ABG Base Excess (Actual) VBG pH 7.48 H VBG pCO2 35 VBG pO2 43 VBG HCO3 26 VBG O2 Saturation 68.0 VBG Base Excess 3.5 Sodium 144 Potassium 3.5 Chloride 111 H Carbon Dioxide 25 Anion Gap 12 BUN 24 H Creatinine 0.44 L Estim Creat Clear Calc 186.8 Estimated GFR > 60 POC Glucose 204 H Random Glucose 155 H Lactic Acid Lactic Acid F/U @ 2Hr Calcium 8.0 L Phosphorus 2.2 L Magnesium 2.1 Total Bilirubin AST ALT Alkaline Phosphatase Total Creatine Kinase Troponin I High Sens C-Reactive Protein B-Natriuretic Peptide Total Protein Albumin 3.2 L Triglycerides Beta HCG, Quant Nasal Screen MRSA (PCR) Nasal S. aureus Screen Nasal MRSA/S.aureus Interp Vancomycin Trough Random Vancomycin Urine Opiates Screen Ur Buprenorphine Scrn Ur Oxycodone Screen Urine Methadone Screen Urine Fentanyl Screen Ur Barbiturates Screen Ur Phencyclidine Scrn Ur Amphetamines Screen U Benzodiazepines Scrn Urine Cocaine Screen U Marijuana (THC) Screen SUKHJINDER Screen SUKHJINDER Titer SUKHJINDER Titer 2 SUKHJINDER Titer 3 SUKHJINDER Pattern SUKHJINDER Pattern 2 SUKHJINDER Pattern 3 Herpes Simplex Culture HSV I IgG Ab HSV II IgG Influenza Type A (PCR) Influenza Type B (PCR) RSV RNA Qual (PCR) SARS-CoV-2 RNA (RT-PCR) Ref Lab Test Result 01/15/25 01/15/25 01/15/25 17:17 20:53 23:24 WBC 13.4 H RBC 3.56 L Hgb 10.0 L Hct 29.4 L MCV 82.6 MCH 28.1 MCHC 34.0 RDW 15.0 Plt Count 309 MPV 8.7 L Immature Gran % (Auto) 1.1 H Neut % (Auto) 76.4 H Lymph % (Auto) 15.4 L [place] % (Auto) 6.9 Eos % (Auto) 0.1 Baso % (Auto) 0.1 Lymph # (Auto) 2.1 [place] # (Auto) 0.9 Eos # (Auto) 0.0 Baso # (Auto) 0.0 Abs Immat Gran (auto) 0.15 H Absolute Neuts (auto) 10.2 H Absolute Nucleated RBC 0.000 Nucleated RBC % (auto) 0.0 Neutrophils % (Manual) Band Neutrophils % Lymphocytes % (Manual) Monocytes % (Manual) Abs Neuts (Manual) Lymphocytes # (Manual) Monocytes # (Manual) Smudge Cells Toxic Vacuolation Platelet Estimate Plt Morphology Comment RBC Morphology Ovalocytes Smear Tech's Comments ESR PT INR O2 Saturation ABG pH at Pt Temp ABG pCO2 at Pt Temp ABG pO2 at Pt Temp ABG HCO3 ABG Base Excess (Actual) VBG pH VBG pCO2 VBG pO2 VBG HCO3 VBG O2 Saturation VBG Base Excess Sodium Potassium Chloride Carbon Dioxide Anion Gap BUN Creatinine Estim Creat Clear Calc Estimated GFR POC Glucose 163 H 142 H Random Glucose Lactic Acid Lactic Acid F/U @ 2Hr Calcium Phosphorus 3.0 Magnesium 2.2 Total Bilirubin AST ALT Alkaline Phosphatase Total Creatine Kinase Troponin I High Sens C-Reactive Protein B-Natriuretic Peptide Total Protein Albumin Triglycerides Beta HCG, Quant Nasal Screen MRSA (PCR) Nasal S. aureus Screen Nasal MRSA/S.aureus Interp Vancomycin Trough Random Vancomycin 14.5 L Urine Opiates Screen Ur Buprenorphine Scrn Ur Oxycodone Screen Urine Methadone Screen Urine Fentanyl Screen Ur Barbiturates Screen Ur Phencyclidine Scrn Ur Amphetamines Screen U Benzodiazepines Scrn Urine Cocaine Screen U Marijuana (THC) Screen SUKHJINDER Screen SUKHJINDER Titer SUKHJINDER Titer 2 SUKHJINDER Titer 3 SUKHJINDER Pattern SUKHJINDER Pattern 2 SUKHJINDER Pattern 3 Herpes Simplex Culture HSV I IgG Ab HSV II IgG Influenza Type A (PCR) Influenza Type B (PCR) RSV RNA Qual (PCR) SARS-CoV-2 RNA (RT-PCR) Ref Lab Test Result 01/16/25 01/16/25 01/16/25 04:50 04:52 11:14 WBC 15.9 H RBC 3.53 L Hgb 9.6 L Hct 29.7 L MCV 84.1 MCH 27.2 MCHC 32.3 RDW 15.2 Plt Count 337 MPV 9.2 L Immature Gran % (Auto) 1.2 H Neut % (Auto) 68.2 Lymph % (Auto) 22.4 [place] % (Auto) 7.2 Eos % (Auto) 0.8 Baso % (Auto) 0.2 Lymph # (Auto) 3.6 [place] # (Auto) 1.1 Eos # (Auto) 0.1 Baso # (Auto) 0.0 Abs Immat Gran (auto) 0.19 H Absolute Neuts (auto) 10.9 H Absolute Nucleated RBC 0.000 Nucleated RBC % (auto) 0.0 Neutrophils % (Manual) Band Neutrophils % Lymphocytes % (Manual) Monocytes % (Manual) Abs Neuts (Manual) Lymphocytes # (Manual) Monocytes # (Manual) Smudge Cells Toxic Vacuolation Platelet Estimate Plt Morphology Comment RBC Morphology Ovalocytes Smear Tech's Comments ESR PT INR O2 Saturation ABG pH at Pt Temp ABG pCO2 at Pt Temp ABG pO2 at Pt Temp ABG HCO3 ABG Base Excess (Actual) VBG pH 7.44 H VBG pCO2 46 VBG pO2 44 VBG HCO3 32 H VBG O2 Saturation 63.0 VBG Base Excess 7.2 Sodium 145 Potassium 4.0 Chloride 109 H Carbon Dioxide 28 Anion Gap 12 BUN 20 H Creatinine 0.41 L Estim Creat Clear Calc 200.5 Estimated GFR > 60 POC Glucose 218 H Random Glucose 151 H Lactic Acid Lactic Acid F/U @ 2Hr Calcium 8.1 L Phosphorus 3.4 Magnesium 2.2 Total Bilirubin 0.2 AST 20 ALT 21 Alkaline Phosphatase 62 Total Creatine Kinase Troponin I High Sens C-Reactive Protein B-Natriuretic Peptide Total Protein 5.8 L Albumin 3.2 L Triglycerides Beta HCG, Quant Nasal Screen MRSA (PCR) Nasal S. aureus Screen Nasal MRSA/S.aureus Interp Vancomycin Trough Random Vancomycin Urine Opiates Screen Ur Buprenorphine Scrn Ur Oxycodone Screen Urine Methadone Screen Urine Fentanyl Screen Ur Barbiturates Screen Ur Phencyclidine Scrn Ur Amphetamines Screen U Benzodiazepines Scrn Urine Cocaine Screen U Marijuana (THC) Screen SUKHJINDER Screen SUKHJINDER Titer SUKHJINDER Titer 2 SUKHJINDER Titer 3 SUKHJINDER Pattern SUKHJINDER Pattern 2 SUKHJINDER Pattern 3 Herpes Simplex Culture HSV I IgG Ab HSV II IgG Influenza Type A (PCR) Influenza Type B (PCR) RSV RNA Qual (PCR) SARS-CoV-2 RNA (RT-PCR) Ref Lab Test Result 01/16/25 01/16/25 01/16/25 11:28 17:18 20:01 WBC RBC Hgb Hct MCV MCH MCHC RDW Plt Count MPV Immature Gran % (Auto) Neut % (Auto) Lymph % (Auto) [place] % (Auto) Eos % (Auto) Baso % (Auto) Lymph # (Auto) [place] # (Auto) Eos # (Auto) Baso # (Auto) Abs Immat Gran (auto) Absolute Neuts (auto) Absolute Nucleated RBC Nucleated RBC % (auto) Neutrophils % (Manual) Band Neutrophils % Lymphocytes % (Manual) Monocytes % (Manual) Abs Neuts (Manual) Lymphocytes # (Manual) Monocytes # (Manual) Smudge Cells Toxic Vacuolation Platelet Estimate Plt Morphology Comment RBC Morphology Ovalocytes Smear Tech's Comments ESR PT INR O2 Saturation ABG pH at Pt Temp ABG pCO2 at Pt Temp ABG pO2 at Pt Temp ABG HCO3 ABG Base Excess (Actual) VBG pH VBG pCO2 VBG pO2 VBG HCO3 VBG O2 Saturation VBG Base Excess Sodium Potassium Chloride Carbon Dioxide Anion Gap BUN Creatinine Estim Creat Clear Calc Estimated GFR POC Glucose 145 H Random Glucose Lactic Acid Lactic Acid F/U @ 2Hr Calcium Phosphorus Magnesium Total Bilirubin AST ALT Alkaline Phosphatase Total Creatine Kinase Troponin I High Sens C-Reactive Protein B-Natriuretic Peptide Total Protein Albumin Triglycerides Beta HCG, Quant Nasal Screen MRSA (PCR) NEGATIVE Nasal S. aureus Screen NEGATIVE Nasal MRSA/S.aureus Interp SEE NOTE Vancomycin Trough 15.1 Random Vancomycin Urine Opiates Screen Ur Buprenorphine Scrn Ur Oxycodone Screen Urine Methadone Screen Urine Fentanyl Screen Ur Barbiturates Screen Ur Phencyclidine Scrn Ur Amphetamines Screen U Benzodiazepines Scrn Urine Cocaine Screen U Marijuana (THC) Screen SUKHJINDER Screen SUKHJINDER Titer SUKHJINDER Titer 2 SUKHJINDER Titer 3 SUKHJINDER Pattern SUKHJINDER Pattern 2 SUKHJINDER Pattern 3 Herpes Simplex Culture HSV I IgG Ab HSV II IgG Influenza Type A (PCR) Influenza Type B (PCR) RSV RNA Qual (PCR) SARS-CoV-2 RNA (RT-PCR) Ref Lab Test Result 01/17/25 01/17/25 01/17/25 00:22 05:30 05:31 WBC 17.6 H RBC 3.31 L Hgb 9.2 L Hct 27.8 L MCV 84.0 MCH 27.8 MCHC 33.1 RDW 15.3 Plt Count 448 H D MPV 9.1 L Immature Gran % (Auto) 1.2 H Neut % (Auto) 70.8 Lymph % (Auto) 18.9 L [place] % (Auto) 7.0 Eos % (Auto) 2.0 Baso % (Auto) 0.1 Lymph # (Auto) 3.3 [place] # (Auto) 1.2 Eos # (Auto) 0.4 Baso # (Auto) 0.0 Abs Immat Gran (auto) 0.21 H Absolute Neuts (auto) 12.5 H Absolute Nucleated RBC 0.000 Nucleated RBC % (auto) 0.0 Neutrophils % (Manual) Band Neutrophils % Lymphocytes % (Manual) Monocytes % (Manual) Abs Neuts (Manual) Lymphocytes # (Manual) Monocytes # (Manual) Smudge Cells Toxic Vacuolation Platelet Estimate Plt Morphology Comment RBC Morphology Ovalocytes Smear Tech's Comments ESR PT INR O2 Saturation ABG pH at Pt Temp ABG pCO2 at Pt Temp ABG pO2 at Pt Temp ABG HCO3 ABG Base Excess (Actual) VBG pH 7.48 H VBG pCO2 43 VBG pO2 48 VBG HCO3 32 H VBG O2 Saturation 73.0 VBG Base Excess 8.2 Sodium 143 Potassium 3.9 Chloride 105 Carbon Dioxide 28 Anion Gap 14 BUN 18 H Creatinine 0.40 L Estim Creat Clear Calc 210.7 Estimated GFR > 60 POC Glucose 149 H Random Glucose 175 H Lactic Acid Lactic Acid F/U @ 2Hr Calcium 8.3 L Phosphorus 3.5 Magnesium 2.1 Total Bilirubin 0.3 AST 27 ALT 22 Alkaline Phosphatase 71 Total Creatine Kinase Troponin I High Sens C-Reactive Protein B-Natriuretic Peptide Total Protein 5.8 L Albumin 3.3 L Triglycerides Beta HCG, Quant Nasal Screen MRSA (PCR) Nasal S. aureus Screen Nasal MRSA/S.aureus Interp Vancomycin Trough Random Vancomycin Urine Opiates Screen Ur Buprenorphine Scrn Ur Oxycodone Screen Urine Methadone Screen Urine Fentanyl Screen Ur Barbiturates Screen Ur Phencyclidine Scrn Ur Amphetamines Screen U Benzodiazepines Scrn Urine Cocaine Screen U Marijuana (THC) Screen SUKHJINDER Screen SUKHJINDER Titer SUKHJINDER Titer 2 SUKHJINDER Titer 3 SUKHJINDER Pattern SUKHJINDER Pattern 2 SUKHJINDER Pattern 3 Herpes Simplex Culture HSV I IgG Ab HSV II IgG Influenza Type A (PCR) Influenza Type B (PCR) RSV RNA Qual (PCR) SARS-CoV-2 RNA (RT-PCR) Ref Lab Test Result 01/17/25 01/17/25 01/18/25 06:01 18:10 00:08 WBC RBC Hgb Hct MCV MCH MCHC RDW Plt Count MPV Immature Gran % (Auto) Neut % (Auto) Lymph % (Auto) [place] % (Auto) Eos % (Auto) Baso % (Auto) Lymph # (Auto) [place] # (Auto) Eos # (Auto) Baso # (Auto) Abs Immat Gran (auto) Absolute Neuts (auto) Absolute Nucleated RBC Nucleated RBC % (auto) Neutrophils % (Manual) Band Neutrophils % Lymphocytes % (Manual) Monocytes % (Manual) Abs Neuts (Manual) Lymphocytes # (Manual) Monocytes # (Manual) Smudge Cells Toxic Vacuolation Platelet Estimate Plt Morphology Comment RBC Morphology Ovalocytes Smear Tech's Comments ESR PT INR O2 Saturation ABG pH at Pt Temp ABG pCO2 at Pt Temp ABG pO2 at Pt Temp ABG HCO3 ABG Base Excess (Actual) VBG pH VBG pCO2 VBG pO2 VBG HCO3 VBG O2 Saturation VBG Base Excess Sodium Potassium Chloride Carbon Dioxide Anion Gap BUN Creatinine Estim Creat Clear Calc Estimated GFR POC Glucose 181 H 134 H 112 Random Glucose Lactic Acid Lactic Acid F/U @ 2Hr Calcium Phosphorus Magnesium Total Bilirubin AST ALT Alkaline Phosphatase Total Creatine Kinase Troponin I High Sens C-Reactive Protein B-Natriuretic Peptide Total Protein Albumin Triglycerides Beta HCG, Quant Nasal Screen MRSA (PCR) Nasal S. aureus Screen Nasal MRSA/S.aureus Interp Vancomycin Trough Random Vancomycin Urine Opiates Screen Ur Buprenorphine Scrn Ur Oxycodone Screen Urine Methadone Screen Urine Fentanyl Screen Ur Barbiturates Screen Ur Phencyclidine Scrn Ur Amphetamines Screen U Benzodiazepines Scrn Urine Cocaine Screen U Marijuana (THC) Screen SUKHJINDER Screen SUKHJINDER Titer SUKHJINDER Titer 2 SUKHJINDER Titer 3 SUKHJINDER Pattern SUKHJINDER Pattern 2 SUKHJINDER Pattern 3 Herpes Simplex Culture HSV I IgG Ab HSV II IgG Influenza Type A (PCR) Influenza Type B (PCR) RSV RNA Qual (PCR) SARS-CoV-2 RNA (RT-PCR) Ref Lab Test Result 01/18/25 01/18/25 01/18/25 04:05 04:20 05:33 WBC 12.8 H RBC 3.37 L Hgb 9.4 L Hct 27.9 L MCV 82.8 MCH 27.9 MCHC 33.7 RDW 15.5 Plt Count 322 D MPV 8.8 L Immature Gran % (Auto) 1.2 H Neut % (Auto) 73.0 Lymph % (Auto) 17.1 L [place] % (Auto) 6.6 Eos % (Auto) 2.0 Baso % (Auto) 0.1 Lymph # (Auto) 2.2 [place] # (Auto) 0.8 Eos # (Auto) 0.3 Baso # (Auto) 0.0 Abs Immat Gran (auto) 0.15 H Absolute Neuts (auto) 9.4 H Absolute Nucleated RBC 0.000 Nucleated RBC % (auto) 0.0 Neutrophils % (Manual) Band Neutrophils % Lymphocytes % (Manual) Monocytes % (Manual) Abs Neuts (Manual) Lymphocytes # (Manual) Monocytes # (Manual) Smudge Cells Toxic Vacuolation Platelet Estimate Plt Morphology Comment RBC Morphology Ovalocytes Smear Tech's Comments ESR PT INR O2 Saturation ABG pH at Pt Temp ABG pCO2 at Pt Temp ABG pO2 at Pt Temp ABG HCO3 ABG Base Excess (Actual) VBG pH 7.50 H VBG pCO2 42 VBG pO2 53 VBG HCO3 33 H VBG O2 Saturation 79.0 VBG Base Excess 9.9 Sodium 143 Potassium 3.8 Chloride 104 Carbon Dioxide 28 Anion Gap 15 BUN 19 H Creatinine 0.41 L Estim Creat Clear Calc 205.6 Estimated GFR > 60 POC Glucose 142 H Random Glucose 151 H Lactic Acid Lactic Acid F/U @ 2Hr Calcium 8.5 Phosphorus 3.5 Magnesium 2.2 Total Bilirubin 0.3 AST 26 ALT 29 Alkaline Phosphatase 73 Total Creatine Kinase Troponin I High Sens C-Reactive Protein B-Natriuretic Peptide Total Protein 6.2 L Albumin 3.4 L Triglycerides Beta HCG, Quant Nasal Screen MRSA (PCR) Nasal S. aureus Screen Nasal MRSA/S.aureus Interp Vancomycin Trough Random Vancomycin Urine Opiates Screen Ur Buprenorphine Scrn Ur Oxycodone Screen Urine Methadone Screen Urine Fentanyl Screen Ur Barbiturates Screen Ur Phencyclidine Scrn Ur Amphetamines Screen U Benzodiazepines Scrn Urine Cocaine Screen U Marijuana (THC) Screen SUKHJINDER Screen SUKHJINDER Titer SUKHJINDER Titer 2 SUKHJINDER Titer 3 SUKHJINDER Pattern SUKHJINDER Pattern 2 SUKHJINDER Pattern 3 Herpes Simplex Culture HSV I IgG Ab HSV II IgG Influenza Type A (PCR) Influenza Type B (PCR) RSV RNA Qual (PCR) SARS-CoV-2 RNA (RT-PCR) Ref Lab Test Result 01/18/25 01/18/25 01/18/25 11:26 18:41 23:57 WBC RBC Hgb Hct MCV MCH MCHC RDW Plt Count MPV Immature Gran % (Auto) Neut % (Auto) Lymph % (Auto) [place] % (Auto) Eos % (Auto) Baso % (Auto) Lymph # (Auto) [place] # (Auto) Eos # (Auto) Baso # (Auto) Abs Immat Gran (auto) Absolute Neuts (auto) Absolute Nucleated RBC Nucleated RBC % (auto) Neutrophils % (Manual) Band Neutrophils % Lymphocytes % (Manual) Monocytes % (Manual) Abs Neuts (Manual) Lymphocytes # (Manual) Monocytes # (Manual) Smudge Cells Toxic Vacuolation Platelet Estimate Plt Morphology Comment RBC Morphology Ovalocytes Smear Tech's Comments ESR PT INR O2 Saturation ABG pH at Pt Temp ABG pCO2 at Pt Temp ABG pO2 at Pt Temp ABG HCO3 ABG Base Excess (Actual) VBG pH VBG pCO2 VBG pO2 VBG HCO3 VBG O2 Saturation VBG Base Excess Sodium Potassium Chloride Carbon Dioxide Anion Gap BUN Creatinine Estim Creat Clear Calc Estimated GFR POC Glucose 224 H 161 H 160 H Random Glucose Lactic Acid Lactic Acid F/U @ 2Hr Calcium Phosphorus Magnesium Total Bilirubin AST ALT Alkaline Phosphatase Total Creatine Kinase Troponin I High Sens C-Reactive Protein B-Natriuretic Peptide Total Protein Albumin Triglycerides Beta HCG, Quant Nasal Screen MRSA (PCR) Nasal S. aureus Screen Nasal MRSA/S.aureus Interp Vancomycin Trough Random Vancomycin Urine Opiates Screen Ur Buprenorphine Scrn Ur Oxycodone Screen Urine Methadone Screen Urine Fentanyl Screen Ur Barbiturates Screen Ur Phencyclidine Scrn Ur Amphetamines Screen U Benzodiazepines Scrn Urine Cocaine Screen U Marijuana (THC) Screen SUKHJINDER Screen SUKHJINDER Titer SUKHJINDER Titer 2 SUKHJINDER Titer 3 SUKHJINDER Pattern SUHKJINDER Pattern 2 SUKHJINDER Pattern 3 Herpes Simplex Culture HSV I IgG Ab HSV II IgG Influenza Type A (PCR) Influenza Type B (PCR) RSV RNA Qual (PCR) SARS-CoV-2 RNA (RT-PCR) Ref Lab Test Result 01/19/25 01/19/25 01/19/25 04:30 04:43 11:21 WBC 10.0 RBC 3.13 L Hgb 8.9 L Hct 25.6 L MCV 81.8 MCH 28.4 MCHC 34.8 RDW 15.2 Plt Count 286 MPV 8.8 L Immature Gran % (Auto) 1.2 H Neut % (Auto) 91.5 H Lymph % (Auto) 5.2 L [place] % (Auto) 2.0 Eos % (Auto) 0.0 Baso % (Auto) 0.1 Lymph # (Auto) 0.5 L [place] # (Auto) 0.2 Eos # (Auto) 0.0 Baso # (Auto) 0.0 Abs Immat Gran (auto) 0.12 H Absolute Neuts (auto) 9.2 H Absolute Nucleated RBC 0.000 Nucleated RBC % (auto) 0.0 Neutrophils % (Manual) Band Neutrophils % Lymphocytes % (Manual) Monocytes % (Manual) Abs Neuts (Manual) Lymphocytes # (Manual) Monocytes # (Manual) Smudge Cells Toxic Vacuolation Platelet Estimate Plt Morphology Comment RBC Morphology Ovalocytes Smear Tech's Comments VERIFIED ESR PT INR O2 Saturation ABG pH at Pt Temp ABG pCO2 at Pt Temp ABG pO2 at Pt Temp ABG HCO3 ABG Base Excess (Actual) VBG pH 7.53 H VBG pCO2 39 VBG pO2 44 VBG HCO3 33 H VBG O2 Saturation 69.0 VBG Base Excess 9.8 Sodium 139 Potassium 4.3 Chloride 104 Carbon Dioxide 28 Anion Gap 11 L BUN 18 H Creatinine 0.36 L Estim Creat Clear Calc 226.5 Estimated GFR > 60 POC Glucose Random Glucose 189 H Lactic Acid Lactic Acid F/U @ 2Hr Calcium 8.4 Phosphorus 3.1 Magnesium 2.3 Total Bilirubin 0.3 AST 22 ALT 33 H Alkaline Phosphatase 65 Total Creatine Kinase Troponin I High Sens C-Reactive Protein B-Natriuretic Peptide Total Protein 6.1 L Albumin 3.4 L Triglycerides Beta HCG, Quant Nasal Screen MRSA (PCR) Nasal S. aureus Screen Nasal MRSA/S.aureus Interp Vancomycin Trough Random Vancomycin Urine Opiates Screen Ur Buprenorphine Scrn Ur Oxycodone Screen Urine Methadone Screen Urine Fentanyl Screen Ur Barbiturates Screen Ur Phencyclidine Scrn Ur Amphetamines Screen U Benzodiazepines Scrn Urine Cocaine Screen U Marijuana (THC) Screen SUKHJINDER Screen SUKHJINDER Titer SUKHJINDER Titer 2 SUKHJINDER Titer 3 SUKHJINDER Pattern SUKHJINDER Pattern 2 SUKHJINDER Pattern 3 Herpes Simplex Culture HSV I IgG Ab 12.30 H HSV II IgG 22.00 H Influenza Type A (PCR) Influenza Type B (PCR) RSV RNA Qual (PCR) SARS-CoV-2 RNA (RT-PCR) Ref Lab Test Result 01/19/25 01/19/25 01/19/25 12:41 15:18 17:21 WBC RBC Hgb Hct MCV MCH MCHC RDW Plt Count MPV Immature Gran % (Auto) Neut % (Auto) Lymph % (Auto) [place] % (Auto) Eos % (Auto) Baso % (Auto) Lymph # (Auto) [place] # (Auto) Eos # (Auto) Baso # (Auto) Abs Immat Gran (auto) Absolute Neuts (auto) Absolute Nucleated RBC Nucleated RBC % (auto) Neutrophils % (Manual) Band Neutrophils % Lymphocytes % (Manual) Monocytes % (Manual) Abs Neuts (Manual) Lymphocytes # (Manual) Monocytes # (Manual) Smudge Cells Toxic Vacuolation Platelet Estimate Plt Morphology Comment RBC Morphology Ovalocytes Smear Tech's Comments ESR PT INR O2 Saturation ABG pH at Pt Temp ABG pCO2 at Pt Temp ABG pO2 at Pt Temp ABG HCO3 ABG Base Excess (Actual) VBG pH VBG pCO2 VBG pO2 VBG HCO3 VBG O2 Saturation VBG Base Excess Sodium Potassium Chloride Carbon Dioxide Anion Gap BUN Creatinine Estim Creat Clear Calc Estimated GFR POC Glucose 170 H 145 H Random Glucose Lactic Acid Lactic Acid F/U @ 2Hr Calcium Phosphorus Magnesium Total Bilirubin AST ALT Alkaline Phosphatase Total Creatine Kinase Troponin I High Sens C-Reactive Protein B-Natriuretic Peptide Total Protein Albumin Triglycerides Beta HCG, Quant Nasal Screen MRSA (PCR) Nasal S. aureus Screen Nasal MRSA/S.aureus Interp Vancomycin Trough Random Vancomycin Urine Opiates Screen Ur Buprenorphine Scrn Ur Oxycodone Screen Urine Methadone Screen Urine Fentanyl Screen Ur Barbiturates Screen Ur Phencyclidine Scrn Ur Amphetamines Screen U Benzodiazepines Scrn Urine Cocaine Screen U Marijuana (THC) Screen SUKHJINDER Screen SUKHJINDER Titer SUKHJINDER Titer 2 SUKHJINDER Titer 3 SUKHJINDER Pattern SUKHJINDER Pattern 2 SUKHJINDER Pattern 3 Herpes Simplex Culture SEE NOTE A HSV I IgG Ab HSV II IgG Influenza Type A (PCR) Influenza Type B (PCR) RSV RNA Qual (PCR) SARS-CoV-2 RNA (RT-PCR) Ref Lab Test Result 01/19/25 01/20/25 01/20/25 23:44 04:45 04:46 WBC 11.4 H RBC 3.54 L Hgb 10.1 L Hct 29.4 L MCV 83.1 MCH 28.5 MCHC 34.4 RDW 15.3 Plt Count 319 MPV 8.7 L Immature Gran % (Auto) 0.9 H Neut % (Auto) 90.8 H Lymph % (Auto) 4.8 L [place] % (Auto) 3.2 Eos % (Auto) 0.1 Baso % (Auto) 0.2 Lymph # (Auto) 0.5 L [place] # (Auto) 0.4 Eos # (Auto) 0.0 Baso # (Auto) 0.0 Abs Immat Gran (auto) 0.10 H Absolute Neuts (auto) 10.3 H Absolute Nucleated RBC 0.000 Nucleated RBC % (auto) 0.0 Neutrophils % (Manual) Band Neutrophils % Lymphocytes % (Manual) Monocytes % (Manual) Abs Neuts (Manual) Lymphocytes # (Manual) Monocytes # (Manual) Smudge Cells Toxic Vacuolation Platelet Estimate Plt Morphology Comment RBC Morphology Ovalocytes Smear Tech's Comments VERIFIED ESR PT INR O2 Saturation ABG pH at Pt Temp ABG pCO2 at Pt Temp ABG pO2 at Pt Temp ABG HCO3 ABG Base Excess (Actual) VBG pH 7.45 H VBG pCO2 45 VBG pO2 83 VBG HCO3 31 H VBG O2 Saturation 96.0 VBG Base Excess 7.2 Sodium 144 Potassium 4.1 Chloride 108 Carbon Dioxide 27 Anion Gap 13 BUN 18 H Creatinine 0.38 L Estim Creat Clear Calc 214.6 Estimated GFR > 60 POC Glucose 115 Random Glucose 134 H Lactic Acid Lactic Acid F/U @ 2Hr Calcium 9.1 D Phosphorus 4.0 Magnesium 2.3 Total Bilirubin 0.4 AST 39 H ALT 51 H Alkaline Phosphatase 67 Total Creatine Kinase Troponin I High Sens C-Reactive Protein B-Natriuretic Peptide Total Protein 6.8 Albumin 4.2 Triglycerides Beta HCG, Quant Nasal Screen MRSA (PCR) Nasal S. aureus Screen Nasal MRSA/S.aureus Interp Vancomycin Trough Random Vancomycin Urine Opiates Screen Ur Buprenorphine Scrn Ur Oxycodone Screen Urine Methadone Screen Urine Fentanyl Screen Ur Barbiturates Screen Ur Phencyclidine Scrn Ur Amphetamines Screen U Benzodiazepines Scrn Urine Cocaine Screen U Marijuana (THC) Screen SUKHJINDER Screen SUKHJINDER Titer SUKHJINDER Titer 2 SUKHJINDER Titer 3 SUKHJINDER Pattern SUKHJINDER Pattern 2 SUKHJINDER Pattern 3 Herpes Simplex Culture HSV I IgG Ab HSV II IgG Influenza Type A (PCR) Influenza Type B (PCR) RSV RNA Qual (PCR) SARS-CoV-2 RNA (RT-PCR) Ref Lab Test Result 01/20/25 01/20/25 01/20/25 04:48 11:14 17:40 WBC RBC Hgb Hct MCV MCH MCHC RDW Plt Count MPV Immature Gran % (Auto) Neut % (Auto) Lymph % (Auto) [place] % (Auto) Eos % (Auto) Baso % (Auto) Lymph # (Auto) [place] # (Auto) Eos # (Auto) Baso # (Auto) Abs Immat Gran (auto) Absolute Neuts (auto) Absolute Nucleated RBC Nucleated RBC % (auto) Neutrophils % (Manual) Band Neutrophils % Lymphocytes % (Manual) Monocytes % (Manual) Abs Neuts (Manual) Lymphocytes # (Manual) Monocytes # (Manual) Smudge Cells Toxic Vacuolation Platelet Estimate Plt Morphology Comment RBC Morphology Ovalocytes Smear Tech's Comments ESR PT INR O2 Saturation ABG pH at Pt Temp ABG pCO2 at Pt Temp ABG pO2 at Pt Temp ABG HCO3 ABG Base Excess (Actual) VBG pH VBG pCO2 VBG pO2 VBG HCO3 VBG O2 Saturation VBG Base Excess Sodium Potassium Chloride Carbon Dioxide Anion Gap BUN Creatinine Estim Creat Clear Calc Estimated GFR POC Glucose 124 H 134 H 139 H Random Glucose Lactic Acid Lactic Acid F/U @ 2Hr Calcium Phosphorus Magnesium Total Bilirubin AST ALT Alkaline Phosphatase Total Creatine Kinase Troponin I High Sens C-Reactive Protein B-Natriuretic Peptide Total Protein Albumin Triglycerides Beta HCG, Quant Nasal Screen MRSA (PCR) Nasal S. aureus Screen Nasal MRSA/S.aureus Interp Vancomycin Trough Random Vancomycin Urine Opiates Screen Ur Buprenorphine Scrn Ur Oxycodone Screen Urine Methadone Screen Urine Fentanyl Screen Ur Barbiturates Screen Ur Phencyclidine Scrn Ur Amphetamines Screen U Benzodiazepines Scrn Urine Cocaine Screen U Marijuana (THC) Screen SUKHJINDER Screen SUKHJINDER Titer SUKHJINDER Titer 2 SUKHJINDER Titer 3 SUKHJINDER Pattern SUKHJINDER Pattern 2 SUKHJINDER Pattern 3 Herpes Simplex Culture HSV I IgG Ab HSV II IgG Influenza Type A (PCR) Influenza Type B (PCR) RSV RNA Qual (PCR) SARS-CoV-2 RNA (RT-PCR) Ref Lab Test Result 01/20/25 01/21/25 01/21/25 23:15 04:50 04:57 WBC 9.9 RBC 3.50 L Hgb 9.8 L Hct 29.8 L MCV 85.1 MCH 28.0 MCHC 32.9 RDW 15.2 Plt Count 321 MPV 8.9 L Immature Gran % (Auto) 0.8 H Neut % (Auto) 91.3 H Lymph % (Auto) 4.5 L [place] % (Auto) 3.2 Eos % (Auto) 0.0 Baso % (Auto) 0.2 Lymph # (Auto) 0.4 L [place] # (Auto) 0.3 Eos # (Auto) 0.0 Baso # (Auto) 0.0 Abs Immat Gran (auto) 0.08 H Absolute Neuts (auto) 9.0 H Absolute Nucleated RBC 0.000 Nucleated RBC % (auto) 0.0 Neutrophils % (Manual) Band Neutrophils % Lymphocytes % (Manual) Monocytes % (Manual) Abs Neuts (Manual) Lymphocytes # (Manual) Monocytes # (Manual) Smudge Cells Toxic Vacuolation Platelet Estimate Plt Morphology Comment RBC Morphology Ovalocytes Smear Tech's Comments VERIFIED ESR PT INR O2 Saturation ABG pH at Pt Temp ABG pCO2 at Pt Temp ABG pO2 at Pt Temp ABG HCO3 ABG Base Excess (Actual) VBG pH 7.45 H VBG pCO2 53 VBG pO2 49 VBG HCO3 37 H VBG O2 Saturation 76.0 VBG Base Excess 12.1 Sodium 143 Potassium 4.0 Chloride 105 Carbon Dioxide 30 H Anion Gap 12 BUN 22 H Creatinine 0.34 L Estim Creat Clear Calc 239.6 Estimated GFR > 60 POC Glucose 117 H Random Glucose 131 H Lactic Acid Lactic Acid F/U @ 2Hr Calcium 8.8 Phosphorus 3.5 Magnesium 2.2 Total Bilirubin 0.4 AST 24 ALT 53 H Alkaline Phosphatase 60 Total Creatine Kinase Troponin I High Sens C-Reactive Protein B-Natriuretic Peptide Total Protein 6.2 L Albumin 3.8 Triglycerides Beta HCG, Quant Nasal Screen MRSA (PCR) Nasal S. aureus Screen Nasal MRSA/S.aureus Interp Vancomycin Trough Random Vancomycin Urine Opiates Screen Ur Buprenorphine Scrn Ur Oxycodone Screen Urine Methadone Screen Urine Fentanyl Screen Ur Barbiturates Screen Ur Phencyclidine Scrn Ur Amphetamines Screen U Benzodiazepines Scrn Urine Cocaine Screen U Marijuana (THC) Screen SUKHJINDER Screen SUKHJINDER Titer SUKHJINDER Titer 2 SUKHJINDER Titer 3 SUKHJINDER Pattern SUKHJINDER Pattern 2 SUKHJINDER Pattern 3 Herpes Simplex Culture HSV I IgG Ab HSV II IgG Influenza Type A (PCR) Influenza Type B (PCR) RSV RNA Qual (PCR) SARS-CoV-2 RNA (RT-PCR) Ref Lab Test Result 01/21/25 01/21/25 01/21/25 11:51 17:15 23:56 WBC RBC Hgb Hct MCV MCH MCHC RDW Plt Count MPV Immature Gran % (Auto) Neut % (Auto) Lymph % (Auto) [place] % (Auto) Eos % (Auto) Baso % (Auto) Lymph # (Auto) [place] # (Auto) Eos # (Auto) Baso # (Auto) Abs Immat Gran (auto) Absolute Neuts (auto) Absolute Nucleated RBC Nucleated RBC % (auto) Neutrophils % (Manual) Band Neutrophils % Lymphocytes % (Manual) Monocytes % (Manual) Abs Neuts (Manual) Lymphocytes # (Manual) Monocytes # (Manual) Smudge Cells Toxic Vacuolation Platelet Estimate Plt Morphology Comment RBC Morphology Ovalocytes Smear Tech's Comments ESR PT INR O2 Saturation ABG pH at Pt Temp ABG pCO2 at Pt Temp ABG pO2 at Pt Temp ABG HCO3 ABG Base Excess (Actual) VBG pH VBG pCO2 VBG pO2 VBG HCO3 VBG O2 Saturation VBG Base Excess Sodium Potassium Chloride Carbon Dioxide Anion Gap BUN Creatinine Estim Creat Clear Calc Estimated GFR POC Glucose 138 H 112 125 H Random Glucose Lactic Acid Lactic Acid F/U @ 2Hr Calcium Phosphorus Magnesium Total Bilirubin AST ALT Alkaline Phosphatase Total Creatine Kinase Troponin I High Sens C-Reactive Protein B-Natriuretic Peptide Total Protein Albumin Triglycerides Beta HCG, Quant Nasal Screen MRSA (PCR) Nasal S. aureus Screen Nasal MRSA/S.aureus Interp Vancomycin Trough Random Vancomycin Urine Opiates Screen Ur Buprenorphine Scrn Ur Oxycodone Screen Urine Methadone Screen Urine Fentanyl Screen Ur Barbiturates Screen Ur Phencyclidine Scrn Ur Amphetamines Screen U Benzodiazepines Scrn Urine Cocaine Screen U Marijuana (THC) Screen SUKHJINDER Screen SUKHJINDER Titer SUKHJINDER Titer 2 SUKHJINDER Titer 3 SUKHJINDER Pattern SUKHJINDER Pattern 2 SUKHJINDER Pattern 3 Herpes Simplex Culture HSV I IgG Ab HSV II IgG Influenza Type A (PCR) Influenza Type B (PCR) RSV RNA Qual (PCR) SARS-CoV-2 RNA (RT-PCR) Ref Lab Test Result 01/22/25 01/22/25 01/22/25 04:49 05:03 12:59 WBC 9.3 RBC 3.62 L Hgb 10.2 L Hct 29.9 L MCV 82.6 MCH 28.2 MCHC 34.1 RDW 14.7 Plt Count 339 MPV 8.6 L Immature Gran % (Auto) 0.5 H Neut % (Auto) 88.7 H Lymph % (Auto) 7.1 L [place] % (Auto) 3.6 Eos % (Auto) 0.0 Baso % (Auto) 0.1 Lymph # (Auto) 0.7 L [place] # (Auto) 0.3 Eos # (Auto) 0.0 Baso # (Auto) 0.0 Abs Immat Gran (auto) 0.05 H Absolute Neuts (auto) 8.2 Absolute Nucleated RBC 0.000 Nucleated RBC % (auto) 0.0 Neutrophils % (Manual) Band Neutrophils % Lymphocytes % (Manual) Monocytes % (Manual) Abs Neuts (Manual) Lymphocytes # (Manual) Monocytes # (Manual) Smudge Cells Toxic Vacuolation Platelet Estimate Plt Morphology Comment RBC Morphology Ovalocytes Smear Tech's Comments ESR PT INR O2 Saturation ABG pH at Pt Temp ABG pCO2 at Pt Temp ABG pO2 at Pt Temp ABG HCO3 ABG Base Excess (Actual) VBG pH 7.51 H VBG pCO2 49 VBG pO2 53 VBG HCO3 39 H VBG O2 Saturation 81.0 VBG Base Excess 14.8 Sodium 141 Potassium 3.8 Chloride 101 Carbon Dioxide 33 H Anion Gap 11 L BUN 20 H Creatinine 0.33 L Estim Creat Clear Calc 246.4 Estimated GFR > 60 POC Glucose 129 H Random Glucose 135 H Lactic Acid Lactic Acid F/U @ 2Hr Calcium 9.0 Phosphorus 3.1 Magnesium 2.1 Total Bilirubin 0.5 AST 26 ALT 61 H Alkaline Phosphatase 62 Total Creatine Kinase Troponin I High Sens C-Reactive Protein B-Natriuretic Peptide Total Protein 6.4 L Albumin 3.8 Triglycerides Beta HCG, Quant Nasal Screen MRSA (PCR) Nasal S. aureus Screen Nasal MRSA/S.aureus Interp Vancomycin Trough Random Vancomycin Urine Opiates Screen Ur Buprenorphine Scrn Ur Oxycodone Screen Urine Methadone Screen Urine Fentanyl Screen Ur Barbiturates Screen Ur Phencyclidine Scrn Ur Amphetamines Screen U Benzodiazepines Scrn Urine Cocaine Screen U Marijuana (THC) Screen SUKHJINDER Screen SUKHJINDER Titer SUKHJINDER Titer 2 SUKHJINDER Titer 3 SUKHJINDER Pattern SUKHJINDER Pattern 2 SUKHJINDER Pattern 3 Herpes Simplex Culture HSV I IgG Ab HSV II IgG Influenza Type A (PCR) Influenza Type B (PCR) RSV RNA Qual (PCR) SARS-CoV-2 RNA (RT-PCR) Ref Lab Test Result 01/22/25 01/22/25 01/23/25 17:04 23:49 05:52 WBC 12.6 H RBC 4.00 L Hgb 11.1 L Hct 33.5 L MCV 83.8 MCH 27.8 MCHC 33.1 RDW 15.2 Plt Count 323 MPV 8.5 L Immature Gran % (Auto) 0.3 Neut % (Auto) 83.2 H Lymph % (Auto) 10.2 L [place] % (Auto) 6.0 Eos % (Auto) 0.1 Baso % (Auto) 0.2 Lymph # (Auto) 1.3 [place] # (Auto) 0.8 Eos # (Auto) 0.0 Baso # (Auto) 0.0 Abs Immat Gran (auto) 0.04 H Absolute Neuts (auto) 10.5 H Absolute Nucleated RBC 0.000 Nucleated RBC % (auto) 0.0 Neutrophils % (Manual) Band Neutrophils % Lymphocytes % (Manual) Monocytes % (Manual) Abs Neuts (Manual) Lymphocytes # (Manual) Monocytes # (Manual) Smudge Cells Toxic Vacuolation Platelet Estimate Plt Morphology Comment RBC Morphology Ovalocytes Smear Tech's Comments ESR PT INR O2 Saturation ABG pH at Pt Temp ABG pCO2 at Pt Temp ABG pO2 at Pt Temp ABG HCO3 ABG Base Excess (Actual) VBG pH VBG pCO2 VBG pO2 VBG HCO3 VBG O2 Saturation VBG Base Excess Sodium 146 H Potassium 3.1 L Chloride 104 Carbon Dioxide 31 H Anion Gap 14 BUN 24 H Creatinine 0.42 L Estim Creat Clear Calc 198.7 Estimated GFR > 60 POC Glucose 102 100 Random Glucose 83 Lactic Acid Lactic Acid F/U @ 2Hr Calcium 8.9 Phosphorus 3.3 Magnesium 2.2 Total Bilirubin AST ALT Alkaline Phosphatase Total Creatine Kinase Troponin I High Sens C-Reactive Protein B-Natriuretic Peptide Total Protein Albumin 3.8 Triglycerides Beta HCG, Quant Nasal Screen MRSA (PCR) Nasal S. aureus Screen Nasal MRSA/S.aureus Interp Vancomycin Trough Random Vancomycin Urine Opiates Screen Ur Buprenorphine Scrn Ur Oxycodone Screen Urine Methadone Screen Urine Fentanyl Screen Ur Barbiturates Screen Ur Phencyclidine Scrn Ur Amphetamines Screen U Benzodiazepines Scrn Urine Cocaine Screen U Marijuana (THC) Screen SUKHJINDER Screen SUKHJINDER Titer SUKHJINDER Titer 2 SUKHJINDER Titer 3 SUKHJINDER Pattern SUKHJINDER Pattern 2 SUKHJINDER Pattern 3 Herpes Simplex Culture HSV I IgG Ab HSV II IgG Influenza Type A (PCR) Influenza Type B (PCR) RSV RNA Qual (PCR) SARS-CoV-2 RNA (RT-PCR) Ref Lab Test Result 01/23/25 01/23/25 01/23/25 05:53 06:10 11:16 WBC RBC Hgb Hct MCV MCH MCHC RDW Plt Count MPV Immature Gran % (Auto) Neut % (Auto) Lymph % (Auto) [place] % (Auto) Eos % (Auto) Baso % (Auto) Lymph # (Auto) [place] # (Auto) Eos # (Auto) Baso # (Auto) Abs Immat Gran (auto) Absolute Neuts (auto) Absolute Nucleated RBC Nucleated RBC % (auto) Neutrophils % (Manual) Band Neutrophils % Lymphocytes % (Manual) Monocytes % (Manual) Abs Neuts (Manual) Lymphocytes # (Manual) Monocytes # (Manual) Smudge Cells Toxic Vacuolation Platelet Estimate Plt Morphology Comment RBC Morphology Ovalocytes Smear Tech's Comments ESR PT INR O2 Saturation ABG pH at Pt Temp ABG pCO2 at Pt Temp ABG pO2 at Pt Temp ABG HCO3 ABG Base Excess (Actual) VBG pH 7.46 H VBG pCO2 55 VBG pO2 38 VBG HCO3 40 H VBG O2 Saturation 57.0 VBG Base Excess 14.2 Sodium Potassium Chloride Carbon Dioxide Anion Gap BUN Creatinine Estim Creat Clear Calc Estimated GFR POC Glucose 84 84 Random Glucose Lactic Acid Lactic Acid F/U @ 2Hr Calcium Phosphorus Magnesium Total Bilirubin AST ALT Alkaline Phosphatase Total Creatine Kinase Troponin I High Sens C-Reactive Protein B-Natriuretic Peptide Total Protein Albumin Triglycerides Beta HCG, Quant Nasal Screen MRSA (PCR) Nasal S. aureus Screen Nasal MRSA/S.aureus Interp Vancomycin Trough Random Vancomycin Urine Opiates Screen Ur Buprenorphine Scrn Ur Oxycodone Screen Urine Methadone Screen Urine Fentanyl Screen Ur Barbiturates Screen Ur Phencyclidine Scrn Ur Amphetamines Screen U Benzodiazepines Scrn Urine Cocaine Screen U Marijuana (THC) Screen SUKHJINDER Screen SUKHJINDER Titer SUKHJINDER Titer 2 SUKHJINDER Titer 3 SUKHJINDER Pattern SUKHJINDER Pattern 2 SUKHJINDER Pattern 3 Herpes Simplex Culture HSV I IgG Ab HSV II IgG Influenza Type A (PCR) Influenza Type B (PCR) RSV RNA Qual (PCR) SARS-CoV-2 RNA (RT-PCR) Ref Lab Test Result 01/23/25 01/23/25 01/23/25 17:56 20:06 23:49 WBC RBC Hgb Hct MCV MCH MCHC RDW Plt Count MPV Immature Gran % (Auto) Neut % (Auto) Lymph % (Auto) [place] % (Auto) Eos % (Auto) Baso % (Auto) Lymph # (Auto) [place] # (Auto) Eos # (Auto) Baso # (Auto) Abs Immat Gran (auto) Absolute Neuts (auto) Absolute Nucleated RBC Nucleated RBC % (auto) Neutrophils % (Manual) Band Neutrophils % Lymphocytes % (Manual) Monocytes % (Manual) Abs Neuts (Manual) Lymphocytes # (Manual) Monocytes # (Manual) Smudge Cells Toxic Vacuolation Platelet Estimate Plt Morphology Comment RBC Morphology Ovalocytes Smear Tech's Comments ESR PT INR O2 Saturation ABG pH at Pt Temp ABG pCO2 at Pt Temp ABG pO2 at Pt Temp ABG HCO3 ABG Base Excess (Actual) VBG pH 7.39 VBG pCO2 51 VBG pO2 58 VBG HCO3 31 H VBG O2 Saturation 82.0 VBG Base Excess 5.7 Sodium Potassium Chloride Carbon Dioxide Anion Gap BUN Creatinine Estim Creat Clear Calc Estimated GFR POC Glucose 110 162 H Random Glucose Lactic Acid Lactic Acid F/U @ 2Hr Calcium Phosphorus Magnesium Total Bilirubin AST ALT Alkaline Phosphatase Total Creatine Kinase Troponin I High Sens C-Reactive Protein B-Natriuretic Peptide Total Protein Albumin Triglycerides Beta HCG, Quant Nasal Screen MRSA (PCR) Nasal S. aureus Screen Nasal MRSA/S.aureus Interp Vancomycin Trough Random Vancomycin Urine Opiates Screen Ur Buprenorphine Scrn Ur Oxycodone Screen Urine Methadone Screen Urine Fentanyl Screen Ur Barbiturates Screen Ur Phencyclidine Scrn Ur Amphetamines Screen U Benzodiazepines Scrn Urine Cocaine Screen U Marijuana (THC) Screen SUKHJINDER Screen SUKHJINDER Titer SUKHJINDER Titer 2 SUKHJINDER Titer 3 SUKHJINDER Pattern SUKHJINDER Pattern 2 SUKHJINDER Pattern 3 Herpes Simplex Culture HSV I IgG Ab HSV II IgG Influenza Type A (PCR) Influenza Type B (PCR) RSV RNA Qual (PCR) SARS-CoV-2 RNA (RT-PCR) Ref Lab Test Result 01/24/25 01/24/25 01/24/25 04:33 04:34 05:48 WBC 9.7 RBC 3.76 L Hgb 10.5 L Hct 31.4 L MCV 83.5 MCH 27.9 MCHC 33.4 RDW 15.6 Plt Count 253 MPV 8.5 L Immature Gran % (Auto) 0.4 Neut % (Auto) 84.7 H Lymph % (Auto) 9.1 L [place] % (Auto) 5.6 Eos % (Auto) 0.1 Baso % (Auto) 0.1 Lymph # (Auto) 0.9 L [place] # (Auto) 0.5 Eos # (Auto) 0.0 Baso # (Auto) 0.0 Abs Immat Gran (auto) 0.04 H Absolute Neuts (auto) 8.2 Absolute Nucleated RBC 0.000 Nucleated RBC % (auto) 0.0 Neutrophils % (Manual) Band Neutrophils % Lymphocytes % (Manual) Monocytes % (Manual) Abs Neuts (Manual) Lymphocytes # (Manual) Monocytes # (Manual) Smudge Cells Toxic Vacuolation Platelet Estimate Plt Morphology Comment RBC Morphology Ovalocytes Smear Tech's Comments ESR PT INR O2 Saturation ABG pH at Pt Temp ABG pCO2 at Pt Temp ABG pO2 at Pt Temp ABG HCO3 ABG Base Excess (Actual) VBG pH 7.45 H VBG pCO2 46 VBG pO2 49 VBG HCO3 32 H VBG O2 Saturation 76.0 VBG Base Excess 7.5 Sodium 147 H Potassium 4.1 D Chloride 106 Carbon Dioxide 28 Anion Gap 17 BUN 42 H Creatinine 1.43 H Estim Creat Clear Calc 58.3 Estimated GFR 40 POC Glucose 165 H Random Glucose 182 H Lactic Acid Lactic Acid F/U @ 2Hr Calcium 9.0 Phosphorus 7.6 H Magnesium 2.2 Total Bilirubin 0.7 AST 35 H ALT 66 H Alkaline Phosphatase 60 Total Creatine Kinase Troponin I High Sens C-Reactive Protein B-Natriuretic Peptide Total Protein 5.9 L Albumin 3.5 Triglycerides 183 H Beta HCG, Quant Nasal Screen MRSA (PCR) Nasal S. aureus Screen Nasal MRSA/S.aureus Interp Vancomycin Trough Random Vancomycin Urine Opiates Screen Ur Buprenorphine Scrn Ur Oxycodone Screen Urine Methadone Screen Urine Fentanyl Screen Ur Barbiturates Screen Ur Phencyclidine Scrn Ur Amphetamines Screen U Benzodiazepines Scrn Urine Cocaine Screen U Marijuana (THC) Screen SUKHJINDER Screen SUKHJINDER Titer SUKHJINDER Titer 2 SUKHJINDER Titer 3 SUKHJINDER Pattern SUKHJINDER Pattern 2 SUKHJINDER Pattern 3 Herpes Simplex Culture HSV I IgG Ab HSV II IgG Influenza Type A (PCR) Influenza Type B (PCR) RSV RNA Qual (PCR) SARS-CoV-2 RNA (RT-PCR) Ref Lab Test Result 01/24/25 01/24/25 01/24/25 07:44 12:22 17:37 WBC RBC Hgb Hct MCV MCH MCHC RDW Plt Count MPV Immature Gran % (Auto) Neut % (Auto) Lymph % (Auto) [place] % (Auto) Eos % (Auto) Baso % (Auto) Lymph # (Auto) [place] # (Auto) Eos # (Auto) Baso # (Auto) Abs Immat Gran (auto) Absolute Neuts (auto) Absolute Nucleated RBC Nucleated RBC % (auto) Neutrophils % (Manual) Band Neutrophils % Lymphocytes % (Manual) Monocytes % (Manual) Abs Neuts (Manual) Lymphocytes # (Manual) Monocytes # (Manual) Smudge Cells Toxic Vacuolation Platelet Estimate Plt Morphology Comment RBC Morphology Ovalocytes Smear Tech's Comments ESR PT INR O2 Saturation ABG pH at Pt Temp ABG pCO2 at Pt Temp ABG pO2 at Pt Temp ABG HCO3 ABG Base Excess (Actual) VBG pH VBG pCO2 VBG pO2 VBG HCO3 VBG O2 Saturation VBG Base Excess Sodium Potassium Chloride Carbon Dioxide Anion Gap BUN Creatinine Estim Creat Clear Calc Estimated GFR POC Glucose 143 H 207 H 175 H Random Glucose Lactic Acid Lactic Acid F/U @ 2Hr Calcium Phosphorus Magnesium Total Bilirubin AST ALT Alkaline Phosphatase Total Creatine Kinase Troponin I High Sens C-Reactive Protein B-Natriuretic Peptide Total Protein Albumin Triglycerides Beta HCG, Quant Nasal Screen MRSA (PCR) Nasal S. aureus Screen Nasal MRSA/S.aureus Interp Vancomycin Trough Random Vancomycin Urine Opiates Screen Ur Buprenorphine Scrn Ur Oxycodone Screen Urine Methadone Screen Urine Fentanyl Screen Ur Barbiturates Screen Ur Phencyclidine Scrn Ur Amphetamines Screen U Benzodiazepines Scrn Urine Cocaine Screen U Marijuana (THC) Screen SUKHJINDER Screen SUKHJINDER Titer SUKHJINDER Titer 2 SUKHJINDER Titer 3 SUKHJINDER Pattern SUKHJINDER Pattern 2 SUKHJINDER Pattern 3 Herpes Simplex Culture HSV I IgG Ab HSV II IgG Influenza Type A (PCR) Influenza Type B (PCR) RSV RNA Qual (PCR) SARS-CoV-2 RNA (RT-PCR) Ref Lab Test Result 01/24/25 01/25/25 01/25/25 23:44 05:28 05:34 WBC 9.9 RBC 3.78 L Hgb 10.5 L Hct 32.5 L MCV 86.0 MCH 27.8 MCHC 32.3 RDW 15.9 Plt Count 225 MPV 8.9 L Immature Gran % (Auto) 0.7 H Neut % (Auto) 87.9 H Lymph % (Auto) 5.8 L [place] % (Auto) 4.8 Eos % (Auto) 0.7 Baso % (Auto) 0.1 Lymph # (Auto) 0.6 L [place] # (Auto) 0.5 Eos # (Auto) 0.1 Baso # (Auto) 0.0 Abs Immat Gran (auto) 0.07 H Absolute Neuts (auto) 8.7 H Absolute Nucleated RBC 0.000 Nucleated RBC % (auto) 0.0 Neutrophils % (Manual) Band Neutrophils % Lymphocytes % (Manual) Monocytes % (Manual) Abs Neuts (Manual) Lymphocytes # (Manual) Monocytes # (Manual) Smudge Cells Toxic Vacuolation Platelet Estimate Plt Morphology Comment RBC Morphology Ovalocytes Smear Tech's Comments ESR PT INR O2 Saturation ABG pH at Pt Temp ABG pCO2 at Pt Temp ABG pO2 at Pt Temp ABG HCO3 ABG Base Excess (Actual) VBG pH 7.41 VBG pCO2 47 VBG pO2 53 VBG HCO3 30 H VBG O2 Saturation 75.0 VBG Base Excess 5.1 Sodium 145 Potassium 5.1 D Chloride 106 Carbon Dioxide 27 Anion Gap 17 BUN 61 H Creatinine 2.16 H Estim Creat Clear Calc 38.7 Estimated GFR 25 POC Glucose 181 H Random Glucose 171 H Lactic Acid Lactic Acid F/U @ 2Hr Calcium 9.4 Phosphorus 6.0 H Magnesium 2.7 H Total Bilirubin 0.6 AST 28 ALT 47 H Alkaline Phosphatase 66 Total Creatine Kinase Troponin I High Sens C-Reactive Protein B-Natriuretic Peptide Total Protein 6.2 L Albumin 3.6 Triglycerides Beta HCG, Quant Nasal Screen MRSA (PCR) Nasal S. aureus Screen Nasal MRSA/S.aureus Interp Vancomycin Trough Random Vancomycin Urine Opiates Screen Ur Buprenorphine Scrn Ur Oxycodone Screen Urine Methadone Screen Urine Fentanyl Screen Ur Barbiturates Screen Ur Phencyclidine Scrn Ur Amphetamines Screen U Benzodiazepines Scrn Urine Cocaine Screen U Marijuana (THC) Screen SUKHJINDER Screen SUKHJINDER Titer SUKHJINDER Titer 2 SUKHJINDER Titer 3 SUKHJINDER Pattern SUKHJINDER Pattern 2 SUKHJINDER Pattern 3 Herpes Simplex Culture HSV I IgG Ab HSV II IgG Influenza Type A (PCR) Influenza Type B (PCR) RSV RNA Qual (PCR) SARS-CoV-2 RNA (RT-PCR) Ref Lab Test Result 01/25/25 01/25/25 01/25/25 05:55 11:46 18:42 WBC RBC Hgb Hct MCV MCH MCHC RDW Plt Count MPV Immature Gran % (Auto) Neut % (Auto) Lymph % (Auto) [place] % (Auto) Eos % (Auto) Baso % (Auto) Lymph # (Auto) [place] # (Auto) Eos # (Auto) Baso # (Auto) Abs Immat Gran (auto) Absolute Neuts (auto) Absolute Nucleated RBC Nucleated RBC % (auto) Neutrophils % (Manual) Band Neutrophils % Lymphocytes % (Manual) Monocytes % (Manual) Abs Neuts (Manual) Lymphocytes # (Manual) Monocytes # (Manual) Smudge Cells Toxic Vacuolation Platelet Estimate Plt Morphology Comment RBC Morphology Ovalocytes Smear Tech's Comments ESR PT INR O2 Saturation ABG pH at Pt Temp ABG pCO2 at Pt Temp ABG pO2 at Pt Temp ABG HCO3 ABG Base Excess (Actual) VBG pH VBG pCO2 VBG pO2 VBG HCO3 VBG O2 Saturation VBG Base Excess Sodium Potassium Chloride Carbon Dioxide Anion Gap BUN Creatinine Estim Creat Clear Calc Estimated GFR POC Glucose 176 H 189 H 168 H Random Glucose Lactic Acid Lactic Acid F/U @ 2Hr Calcium Phosphorus Magnesium Total Bilirubin AST ALT Alkaline Phosphatase Total Creatine Kinase Troponin I High Sens C-Reactive Protein B-Natriuretic Peptide Total Protein Albumin Triglycerides Beta HCG, Quant Nasal Screen MRSA (PCR) Nasal S. aureus Screen Nasal MRSA/S.aureus Interp Vancomycin Trough Random Vancomycin Urine Opiates Screen Ur Buprenorphine Scrn Ur Oxycodone Screen Urine Methadone Screen Urine Fentanyl Screen Ur Barbiturates Screen Ur Phencyclidine Scrn Ur Amphetamines Screen U Benzodiazepines Scrn Urine Cocaine Screen U Marijuana (THC) Screen SUKHJINDER Screen SUKHJINDER Titer SUKHJINDER Titer 2 SUKHJINDER Titer 3 SUKHJINDER Pattern SUKHJINDER Pattern 2 SUKHJINDER Pattern 3 Herpes Simplex Culture HSV I IgG Ab HSV II IgG Influenza Type A (PCR) Influenza Type B (PCR) RSV RNA Qual (PCR) SARS-CoV-2 RNA (RT-PCR) Ref Lab Test Result 01/25/25 01/25/25 01/26/25 19:34 23:33 04:53 WBC 10.8 RBC 3.33 L Hgb 9.5 L Hct 29.4 L MCV 88.3 MCH 28.5 MCHC 32.3 RDW 15.8 Plt Count 234 MPV 9.2 L Immature Gran % (Auto) 0.8 H Neut % (Auto) 83.2 H Lymph % (Auto) 9.1 L [place] % (Auto) 5.6 Eos % (Auto) 1.2 Baso % (Auto) 0.1 Lymph # (Auto) 1.0 L [place] # (Auto) 0.6 Eos # (Auto) 0.1 Baso # (Auto) 0.0 Abs Immat Gran (auto) 0.09 H Absolute Neuts (auto) 9.0 H Absolute Nucleated RBC 0.000 Nucleated RBC % (auto) 0.0 Neutrophils % (Manual) Band Neutrophils % Lymphocytes % (Manual) Monocytes % (Manual) Abs Neuts (Manual) Lymphocytes # (Manual) Monocytes # (Manual) Smudge Cells Toxic Vacuolation Platelet Estimate Plt Morphology Comment RBC Morphology Ovalocytes Smear Tech's Comments ESR PT INR O2 Saturation 97.0 ABG pH at Pt Temp 7.33 L ABG pCO2 at Pt Temp 60 H* ABG pO2 at Pt Temp 101 ABG HCO3 32 H ABG Base Excess (Actual) 5.0 VBG pH Cancelled VBG pCO2 Cancelled VBG pO2 Cancelled VBG HCO3 Cancelled VBG O2 Saturation Cancelled VBG Base Excess Cancelled Sodium 141 Potassium 5.5 H Chloride 106 Carbon Dioxide 23 Anion Gap 18 BUN 70 H Creatinine 2.06 H Estim Creat Clear Calc 40.8 Estimated GFR 26 POC Glucose 188 H Random Glucose 201 H Lactic Acid Lactic Acid F/U @ 2Hr Calcium 10.1 D Phosphorus 2.5 L Magnesium 2.8 H Total Bilirubin 0.4 AST 21 ALT 31 Alkaline Phosphatase 74 Total Creatine Kinase Troponin I High Sens C-Reactive Protein B-Natriuretic Peptide Total Protein 6.2 L Albumin 3.4 L Triglycerides Beta HCG, Quant Nasal Screen MRSA (PCR) Nasal S. aureus Screen Nasal MRSA/S.aureus Interp Vancomycin Trough Random Vancomycin Urine Opiates Screen Ur Buprenorphine Scrn Ur Oxycodone Screen Urine Methadone Screen Urine Fentanyl Screen Ur Barbiturates Screen Ur Phencyclidine Scrn Ur Amphetamines Screen U Benzodiazepines Scrn Urine Cocaine Screen U Marijuana (THC) Screen SUKHJINDER Screen SUKHJINDER Titer SUKHJINDER Titer 2 SUKHJINDER Titer 3 SUKHJINDER Pattern SUKHJINDER Pattern 2 SUKHJINDER Pattern 3 Herpes Simplex Culture HSV I IgG Ab HSV II IgG Influenza Type A (PCR) Influenza Type B (PCR) RSV RNA Qual (PCR) SARS-CoV-2 RNA (RT-PCR) Ref Lab Test Result 01/26/25 01/26/25 01/26/25 04:56 05:42 11:10 WBC RBC Hgb Hct MCV MCH MCHC RDW Plt Count MPV Immature Gran % (Auto) Neut % (Auto) Lymph % (Auto) [place] % (Auto) Eos % (Auto) Baso % (Auto) Lymph # (Auto) [place] # (Auto) Eos # (Auto) Baso # (Auto) Abs Immat Gran (auto) Absolute Neuts (auto) Absolute Nucleated RBC Nucleated RBC % (auto) Neutrophils % (Manual) Band Neutrophils % Lymphocytes % (Manual) Monocytes % (Manual) Abs Neuts (Manual) Lymphocytes # (Manual) Monocytes # (Manual) Smudge Cells Toxic Vacuolation Platelet Estimate Plt Morphology Comment RBC Morphology Ovalocytes Smear Tech's Comments ESR PT INR O2 Saturation ABG pH at Pt Temp ABG pCO2 at Pt Temp ABG pO2 at Pt Temp ABG HCO3 ABG Base Excess (Actual) VBG pH 7.46 H VBG pCO2 39 VBG pO2 84 VBG HCO3 28 H VBG O2 Saturation 95.0 VBG Base Excess 4.7 Sodium Potassium Chloride Carbon Dioxide Anion Gap BUN Creatinine Estim Creat Clear Calc Estimated GFR POC Glucose 202 H 167 H Random Glucose Lactic Acid Lactic Acid F/U @ 2Hr Calcium Phosphorus Magnesium Total Bilirubin AST ALT Alkaline Phosphatase Total Creatine Kinase Troponin I High Sens C-Reactive Protein B-Natriuretic Peptide Total Protein Albumin Triglycerides Beta HCG, Quant Nasal Screen MRSA (PCR) Nasal S. aureus Screen Nasal MRSA/S.aureus Interp Vancomycin Trough Random Vancomycin Urine Opiates Screen Ur Buprenorphine Scrn Ur Oxycodone Screen Urine Methadone Screen Urine Fentanyl Screen Ur Barbiturates Screen Ur Phencyclidine Scrn Ur Amphetamines Screen U Benzodiazepines Scrn Urine Cocaine Screen U Marijuana (THC) Screen SUKHJINDER Screen SUKHJINDER Titer SUKHJINDER Titer 2 SUKHJINDER Titer 3 SUKHJINDER Pattern SUKHJINDER Pattern 2 SUKHJINDER Pattern 3 Herpes Simplex Culture HSV I IgG Ab HSV II IgG Influenza Type A (PCR) Influenza Type B (PCR) RSV RNA Qual (PCR) SARS-CoV-2 RNA (RT-PCR) Ref Lab Test Result 01/26/25 01/26/25 01/27/25 17:35 23:46 05:15 WBC 12.3 H RBC 3.68 L Hgb 10.4 L Hct 30.2 L MCV 82.1 D MCH 28.3 MCHC 34.4 RDW 15.9 Plt Count 263 MPV 9.3 L Immature Gran % (Auto) 0.6 H Neut % (Auto) 77.5 H Lymph % (Auto) 13.6 L [place] % (Auto) 5.7 Eos % (Auto) 2.4 Baso % (Auto) 0.2 Lymph # (Auto) 1.7 [place] # (Auto) 0.7 Eos # (Auto) 0.3 Baso # (Auto) 0.0 Abs Immat Gran (auto) 0.07 H Absolute Neuts (auto) 9.6 H Absolute Nucleated RBC 0.000 Nucleated RBC % (auto) 0.0 Neutrophils % (Manual) Band Neutrophils % Lymphocytes % (Manual) Monocytes % (Manual) Abs Neuts (Manual) Lymphocytes # (Manual) Monocytes # (Manual) Smudge Cells Toxic Vacuolation Platelet Estimate Plt Morphology Comment RBC Morphology Ovalocytes Smear Tech's Comments ESR PT INR O2 Saturation ABG pH at Pt Temp ABG pCO2 at Pt Temp ABG pO2 at Pt Temp ABG HCO3 ABG Base Excess (Actual) VBG pH VBG pCO2 VBG pO2 VBG HCO3 VBG O2 Saturation VBG Base Excess Sodium 140 Potassium 4.4 Chloride 103 Carbon Dioxide 25 Anion Gap 16 BUN 51 H Creatinine 1.18 Estim Creat Clear Calc 66.7 Estimated GFR 49 POC Glucose 109 142 H Random Glucose 177 H Lactic Acid Lactic Acid F/U @ 2Hr Calcium 10.3 H Phosphorus 3.4 Magnesium 2.1 Total Bilirubin 0.5 AST 16 ALT 22 Alkaline Phosphatase 88 Total Creatine Kinase Troponin I High Sens C-Reactive Protein B-Natriuretic Peptide Total Protein 6.6 Albumin 3.5 Triglycerides Beta HCG, Quant Nasal Screen MRSA (PCR) Nasal S. aureus Screen Nasal MRSA/S.aureus Interp Vancomycin Trough Random Vancomycin Urine Opiates Screen Ur Buprenorphine Scrn Ur Oxycodone Screen Urine Methadone Screen Urine Fentanyl Screen Ur Barbiturates Screen Ur Phencyclidine Scrn Ur Amphetamines Screen U Benzodiazepines Scrn Urine Cocaine Screen U Marijuana (THC) Screen SUKHJINDER Screen SUKHJINDER Titer SUKHJINDER Titer 2 SUKHJINDER Titer 3 SUKHJINDER Pattern SUKHJINDER Pattern 2 SUKHJINDER Pattern 3 Herpes Simplex Culture HSV I IgG Ab HSV II IgG Influenza Type A (PCR) Influenza Type B (PCR) RSV RNA Qual (PCR) SARS-CoV-2 RNA (RT-PCR) Ref Lab Test Result 01/27/25 01/27/25 01/27/25 05:19 12:16 18:11 WBC RBC Hgb Hct MCV MCH MCHC RDW Plt Count MPV Immature Gran % (Auto) Neut % (Auto) Lymph % (Auto) [place] % (Auto) Eos % (Auto) Baso % (Auto) Lymph # (Auto) [place] # (Auto) Eos # (Auto) Baso # (Auto) Abs Immat Gran (auto) Absolute Neuts (auto) Absolute Nucleated RBC Nucleated RBC % (auto) Neutrophils % (Manual) Band Neutrophils % Lymphocytes % (Manual) Monocytes % (Manual) Abs Neuts (Manual) Lymphocytes # (Manual) Monocytes # (Manual) Smudge Cells Toxic Vacuolation Platelet Estimate Plt Morphology Comment RBC Morphology Ovalocytes Smear Tech's Comments ESR PT INR O2 Saturation ABG pH at Pt Temp ABG pCO2 at Pt Temp ABG pO2 at Pt Temp ABG HCO3 ABG Base Excess (Actual) VBG pH 7.51 H VBG pCO2 30 VBG pO2 96 VBG HCO3 25 VBG O2 Saturation 98.0 VBG Base Excess 2.8 Sodium Potassium Chloride Carbon Dioxide Anion Gap BUN Creatinine Estim Creat Clear Calc Estimated GFR POC Glucose 154 H 134 H Random Glucose Lactic Acid Lactic Acid F/U @ 2Hr Calcium Phosphorus Magnesium Total Bilirubin AST ALT Alkaline Phosphatase Total Creatine Kinase Troponin I High Sens C-Reactive Protein B-Natriuretic Peptide Total Protein Albumin Triglycerides Beta HCG, Quant Nasal Screen MRSA (PCR) Nasal S. aureus Screen Nasal MRSA/S.aureus Interp Vancomycin Trough Random Vancomycin Urine Opiates Screen Ur Buprenorphine Scrn Ur Oxycodone Screen Urine Methadone Screen Urine Fentanyl Screen Ur Barbiturates Screen Ur Phencyclidine Scrn Ur Amphetamines Screen U Benzodiazepines Scrn Urine Cocaine Screen U Marijuana (THC) Screen SUKHJINDER Screen SUKHJINDER Titer SUKHJINDER Titer 2 SUKHJINDER Titer 3 SUKHJINDER Pattern SUKHJINDER Pattern 2 SUKHJINDER Pattern 3 Herpes Simplex Culture HSV I IgG Ab HSV II IgG Influenza Type A (PCR) Influenza Type B (PCR) RSV RNA Qual (PCR) SARS-CoV-2 RNA (RT-PCR) Ref Lab Test Result 01/27/25 01/28/25 01/28/25 23:50 05:24 05:26 WBC 9.8 RBC 3.79 L Hgb 10.6 L Hct 31.2 L MCV 82.3 MCH 28.0 MCHC 34.0 RDW 15.9 Plt Count 218 MPV 9.4 Immature Gran % (Auto) 0.8 H Neut % (Auto) 74.2 H Lymph % (Auto) 15.1 L [place] % (Auto) 6.4 Eos % (Auto) 3.3 Baso % (Auto) 0.2 Lymph # (Auto) 1.5 [place] # (Auto) 0.6 Eos # (Auto) 0.3 Baso # (Auto) 0.0 Abs Immat Gran (auto) 0.08 H Absolute Neuts (auto) 7.3 Absolute Nucleated RBC 0.000 Nucleated RBC % (auto) 0.0 Neutrophils % (Manual) Band Neutrophils % Lymphocytes % (Manual) Monocytes % (Manual) Abs Neuts (Manual) Lymphocytes # (Manual) Monocytes # (Manual) Smudge Cells Toxic Vacuolation Platelet Estimate Plt Morphology Comment RBC Morphology Ovalocytes Smear Tech's Comments ESR PT INR O2 Saturation ABG pH at Pt Temp ABG pCO2 at Pt Temp ABG pO2 at Pt Temp ABG HCO3 ABG Base Excess (Actual) VBG pH 7.50 H VBG pCO2 32 VBG pO2 77 VBG HCO3 25 VBG O2 Saturation 93.0 VBG Base Excess 2.8 Sodium 142 Potassium 3.5 D Chloride 105 Carbon Dioxide 24 Anion Gap 17 BUN 31 H Creatinine 0.77 Estim Creat Clear Calc 102.2 Estimated GFR > 60 POC Glucose 176 H Random Glucose 162 H Lactic Acid Lactic Acid F/U @ 2Hr Calcium 9.7 Phosphorus 4.1 Magnesium 1.8 Total Bilirubin 0.5 AST 19 ALT 20 Alkaline Phosphatase 100 Total Creatine Kinase Troponin I High Sens C-Reactive Protein B-Natriuretic Peptide Total Protein 6.6 Albumin 3.5 Triglycerides Beta HCG, Quant Nasal Screen MRSA (PCR) Nasal S. aureus Screen Nasal MRSA/S.aureus Interp Vancomycin Trough Random Vancomycin Urine Opiates Screen Ur Buprenorphine Scrn Ur Oxycodone Screen Urine Methadone Screen Urine Fentanyl Screen Ur Barbiturates Screen Ur Phencyclidine Scrn Ur Amphetamines Screen U Benzodiazepines Scrn Urine Cocaine Screen U Marijuana (THC) Screen SUKHJINDER Screen SUKHJINDER Titer SUKHJINDER Titer 2 SUKHJINDER Titer 3 SUKHJINDER Pattern SUKHJINDER Pattern 2 SUKHJINDER Pattern 3 Herpes Simplex Culture HSV I IgG Ab HSV II IgG Influenza Type A (PCR) Influenza Type B (PCR) RSV RNA Qual (PCR) SARS-CoV-2 RNA (RT-PCR) Ref Lab Test Result 01/28/25 01/28/25 01/28/25 11:55 17:34 23:51 WBC RBC Hgb Hct MCV MCH MCHC RDW Plt Count MPV Immature Gran % (Auto) Neut % (Auto) Lymph % (Auto) [place] % (Auto) Eos % (Auto) Baso % (Auto) Lymph # (Auto) [place] # (Auto) Eos # (Auto) Baso # (Auto) Abs Immat Gran (auto) Absolute Neuts (auto) Absolute Nucleated RBC Nucleated RBC % (auto) Neutrophils % (Manual) Band Neutrophils % Lymphocytes % (Manual) Monocytes % (Manual) Abs Neuts (Manual) Lymphocytes # (Manual) Monocytes # (Manual) Smudge Cells Toxic Vacuolation Platelet Estimate Plt Morphology Comment RBC Morphology Ovalocytes Smear Tech's Comments ESR PT INR O2 Saturation ABG pH at Pt Temp ABG pCO2 at Pt Temp ABG pO2 at Pt Temp ABG HCO3 ABG Base Excess (Actual) VBG pH VBG pCO2 VBG pO2 VBG HCO3 VBG O2 Saturation VBG Base Excess Sodium Potassium Chloride Carbon Dioxide Anion Gap BUN Creatinine Estim Creat Clear Calc Estimated GFR POC Glucose 116 H 129 H 163 H Random Glucose Lactic Acid Lactic Acid F/U @ 2Hr Calcium Phosphorus Magnesium Total Bilirubin AST ALT Alkaline Phosphatase Total Creatine Kinase Troponin I High Sens C-Reactive Protein B-Natriuretic Peptide Total Protein Albumin Triglycerides Beta HCG, Quant Nasal Screen MRSA (PCR) Nasal S. aureus Screen Nasal MRSA/S.aureus Interp Vancomycin Trough Random Vancomycin Urine Opiates Screen Ur Buprenorphine Scrn Ur Oxycodone Screen Urine Methadone Screen Urine Fentanyl Screen Ur Barbiturates Screen Ur Phencyclidine Scrn Ur Amphetamines Screen U Benzodiazepines Scrn Urine Cocaine Screen U Marijuana (THC) Screen SUKHJINDER Screen SUKHJINDER Titer SUKHJINDER Titer 2 SUKHJINDER Titer 3 SUKHJINDER Pattern SUKHJINDER Pattern 2 SUKHJINDER Pattern 3 Herpes Simplex Culture HSV I IgG Ab HSV II IgG Influenza Type A (PCR) Influenza Type B (PCR) RSV RNA Qual (PCR) SARS-CoV-2 RNA (RT-PCR) Ref Lab Test Result 01/29/25 01/29/25 01/29/25 05:59 06:03 06:11 WBC 7.6 RBC 3.52 L Hgb 10.1 L Hct 29.7 L MCV 84.4 MCH 28.7 MCHC 34.0 RDW 15.9 Plt Count 160 D MPV 9.4 Immature Gran % (Auto) 0.9 H Neut % (Auto) 80.4 H Lymph % (Auto) 9.3 L [place] % (Auto) 6.3 Eos % (Auto) 2.8 Baso % (Auto) 0.3 Lymph # (Auto) 0.7 L [place] # (Auto) 0.5 Eos # (Auto) 0.2 Baso # (Auto) 0.0 Abs Immat Gran (auto) 0.07 H Absolute Neuts (auto) 6.1 Absolute Nucleated RBC 0.000 Nucleated RBC % (auto) 0.0 Neutrophils % (Manual) Band Neutrophils % Lymphocytes % (Manual) Monocytes % (Manual) Abs Neuts (Manual) Lymphocytes # (Manual) Monocytes # (Manual) Smudge Cells Toxic Vacuolation Platelet Estimate Plt Morphology Comment RBC Morphology Ovalocytes Smear Tech's Comments ESR PT INR O2 Saturation ABG pH at Pt Temp ABG pCO2 at Pt Temp ABG pO2 at Pt Temp ABG HCO3 ABG Base Excess (Actual) VBG pH 7.53 H VBG pCO2 27 VBG pO2 96 VBG HCO3 23 VBG O2 Saturation 98.0 VBG Base Excess 1.3 Sodium 142 Potassium 3.3 Chloride 107 Carbon Dioxide 22 Anion Gap 16 BUN 19 H Creatinine 0.56 Estim Creat Clear Calc 139.5 Estimated GFR > 60 POC Glucose 145 H Random Glucose 145 H Lactic Acid Lactic Acid F/U @ 2Hr Calcium 9.2 Phosphorus 4.1 Magnesium 1.8 Total Bilirubin 0.4 AST 22 ALT 22 Alkaline Phosphatase 107 Total Creatine Kinase Troponin I High Sens C-Reactive Protein B-Natriuretic Peptide Total Protein 6.7 Albumin 3.5 Triglycerides Beta HCG, Quant Nasal Screen MRSA (PCR) Nasal S. aureus Screen Nasal MRSA/S.aureus Interp Vancomycin Trough Random Vancomycin Urine Opiates Screen Ur Buprenorphine Scrn Ur Oxycodone Screen Urine Methadone Screen Urine Fentanyl Screen Ur Barbiturates Screen Ur Phencyclidine Scrn Ur Amphetamines Screen U Benzodiazepines Scrn Urine Cocaine Screen U Marijuana (THC) Screen SUKHJINDER Screen SUKHJINDER Titer SUKHJINDER Titer 2 SUKHJINDER Titer 3 SUKHJINDER Pattern SUKHJINDER Pattern 2 SUKHJINDER Pattern 3 Herpes Simplex Culture HSV I IgG Ab HSV II IgG Influenza Type A (PCR) Influenza Type B (PCR) RSV RNA Qual (PCR) SARS-CoV-2 RNA (RT-PCR) Ref Lab Test Result 01/29/25 11:23 WBC RBC Hgb Hct MCV MCH MCHC RDW Plt Count MPV Immature Gran % (Auto) Neut % (Auto) Lymph % (Auto) [place] % (Auto) Eos % (Auto) Baso % (Auto) Lymph # (Auto) [place] # (Auto) Eos # (Auto) Baso # (Auto) Abs Immat Gran (auto) Absolute Neuts (auto) Absolute Nucleated RBC Nucleated RBC % (auto) Neutrophils % (Manual) Band Neutrophils % Lymphocytes % (Manual) Monocytes % (Manual) Abs Neuts (Manual) Lymphocytes # (Manual) Monocytes # (Manual) Smudge Cells Toxic Vacuolation Platelet Estimate Plt Morphology Comment RBC Morphology Ovalocytes Smear Tech's Comments ESR PT INR O2 Saturation ABG pH at Pt Temp ABG pCO2 at Pt Temp ABG pO2 at Pt Temp ABG HCO3 ABG Base Excess (Actual) VBG pH VBG pCO2 VBG pO2 VBG HCO3 VBG O2 Saturation VBG Base Excess Sodium Potassium Chloride Carbon Dioxide Anion Gap BUN Creatinine Estim Creat Clear Calc Estimated GFR POC Glucose 131 H Random Glucose Lactic Acid Lactic Acid F/U @ 2Hr Calcium Phosphorus Magnesium Total Bilirubin AST ALT Alkaline Phosphatase Total Creatine Kinase Troponin I High Sens C-Reactive Protein B-Natriuretic Peptide Total Protein Albumin Triglycerides Beta HCG, Quant Nasal Screen MRSA (PCR) Nasal S. aureus Screen Nasal MRSA/S.aureus Interp Vancomycin Trough Random Vancomycin Urine Opiates Screen Ur Buprenorphine Scrn Ur Oxycodone Screen Urine Methadone Screen Urine Fentanyl Screen Ur Barbiturates Screen Ur Phencyclidine Scrn Ur Amphetamines Screen U Benzodiazepines Scrn Urine Cocaine Screen U Marijuana (THC) Screen SUKHJINDER Screen SUKHJINDER Titer SUKHJINDER Titer 2 SUKHJINDER Titer 3 SUKHJINDER Pattern SUKHJINDER Pattern 2 SUKHJINDER Pattern 3 Herpes Simplex Culture HSV I IgG Ab HSV II IgG Influenza Type A (PCR) Influenza Type B (PCR) RSV RNA Qual (PCR) SARS-CoV-2 RNA (RT-PCR) Ref Lab Test Result Narrative Narrative: Chest xray 01/25/25 1. Endotracheal tube terminates 2.5 cm above the kita. 2. An enteric tube is present with the distal tip in the stomach. 3. Layering pleural effusions blunt the costophrenic sulci, [id number]. EKG 12/2024 Vent. Rate : 54 BPM Atrial Rate : 54 BPM P-R Int : 96 ms QRS Dur : 86 ms QT Int : 486 ms P-R-T Axes : 66 68 75 degrees QTcB Int : 460 ms Sinus bradycardia with short CA Otherwise normal ECG When compared with ECG of 09-Jan-2025 05:00, CA interval has decreased Nonspecific T wave abnormality no longer evident in Inferior leads T wave inversion less evident in Anterolateral leads Assessment and Plan Final Anesthetic Review Family History of Problems with Anesthesia: No History of Problems with Anesthesia: No
--- NOTE | 2025-01-29 13:45 | PM.EVENT ---
Event Note Date of Service: 01/30/25 Event Note: 44-year-old female who has had a prolonged stay in the ICU for respiratory failure, intubated multiple times Likely due to hypoventilation syndrome with morbid obesity with secondary hypercapnia Surgery has been consulted for tracheostomy and PEG tube placement Dr. Ayala is seeing the patient for tracheostomy I discussed the technique of both tracheostomy and PEG tube placement with family at bedside I explained the technique of both procedures I reviewed the risks including but not limited to bleeding, infections, loss of airway, tube dislodgement, here to other organs including other bowel loops, as well as the benefits and alternatives Her healthcare proxy Samantha Al has given consent Dr. Ayala will be doing the tracheostomy Review of a CT angiogram of the chest from last month shows that there is a good window for accessing the anterior stomach wall from the abdominal wall The patient does not have any surgical scar in the upper abdomen Time Spent With Patient Time: Total time managing care of this patient today ____ minutes.
--- NOTE | 2025-01-29 15:28 | MHC.CM.PN ---
PT REMAINS IN ICU ON VENTILATORY SUPPORT. PLAN REMAINS TO PROCEED WITH TRACH/PEG PLACEMENT THIS WEEK. [facility] UPDATED VIA [place]. CM WILL CONTINUE TO FOLLOW.
--- NOTE | 2025-01-29 17:52 | PC.NURSE ---
Assumed care? @ 0700 Neuro: Sedated/intubated, Propofol per AUG, opens eyes to name, Moves hands (passive ROM performed).? Resp: Vent. support. Cardiac: Sinus Rhythm/Tachycardia on tele, Levophed gtt per AUG, MAP goal >65. GI: LBM 8/7, +bowel sounds, OGT in place, tolerating tube feeds w/o signs of intolerance, POC Q6hr, on sliding scale insulin per AUG.? : External catheter in place, Patent/draining Skin: ?Impaired skin integrity - see skin assessment (repositioning maintained) (foam DGS applied) Temp: Low grade fever, Ice packs placed ?Lines: peripheral IVs.
[2025-01-29 18:14] LABS: Glucose, Whole Blood 144 mg/dL (60-115)
[2025-01-29 23:47] LABS: Glucose, Whole Blood 155 mg/dL (60-115)
[2025-01-30] VITALS (40 sets, daily range): BP systolic 79–148; BP diastolic 32–85; PULSE 62–120; RESP 16–32; TEMP 34.5–38.2; O2SAT 87–97; BMI 38.6
[2025-01-30 05:27] LABS: VBG HCO3 24 mmol/L (22-26); VBG O2 % Saturation 59.0 %
[2025-01-30 05:47] LABS: MANUAL DIFF FLAG NO
[2025-01-30 05:52] LABS: Hematocrit 31.3 % (37.0-47.0); Hemoglobin 10.6 g/dl (12.0-16.0); Imm Gran Abs Auto 0.10 X10*3/uL (0.00-0.03); Imm Gran Pct Auto 1.0 % (0.0-0.4); Lymphocytes Absolute Auto 1.8 X10*3/uL (1.2-4.9); Mean Corpuscular HGB Conc 33.9 g/dl (31.0-35.0); Mean Corpuscular Hemoglobin 28.6 pg (27.0-33.0); Mean Corpuscular Volume 84.4 fL (80.0-98.0); NRBC Abs Auto 0.000 X10*3/uL (0.0-0.012); NRBC Pct Auto 0.0 /100WBC (0.0-0.2); Platelet Count 210 X10*3/uL (160-400); Red Blood Count 3.71 X10*6/uL (4.20-5.50); White Blood Count 9.8 X10*3/uL (4.8-10.8)
[2025-01-30 06:20] LABS: Alanine Aminotransferase 25 U/L (0-31); Albumin Level 3.7 g/dL (3.5-5.0); Alkaline Phosphatase 121 U/L (39-117); Anion Gap 15 (12-20); Aspartate Amino Transferase 22 U/L (5-31); Blood Urea Nitrogen 14 mg/dL (9-16); Calcium 9.4 mg/dL (8.4-10.2); Carbon Dioxide 23 mmol/L (22-29); Chloride 108 mmol/L (96-108); Creatinine Clr Calc Pharmacy 163.5; Estimated Glomerular Filt Rate > 60; Magnesium 1.9 mg/dL (1.6-2.6); Potassium 3.1 mmol/L (3.3-5.1); Sodium 143 mmol/L (135-145); Total Protein 7.2 g/dL (6.5-8.0)
--- NOTE | 2025-01-30 07:24 | P.CONAN_ITS ---
FORM[facility]LY [facility] Active Problems Active Problems: All Active Problems Muscle weakness (Acute) Acute on chronic respiratory failure with hypoxia and hypercapnia (Acute) Pulmonary aspiration (Acute) Pulmonary edema (Acute) Acute and chronic respiratory failure with hypercapnia (Acute) Obesity hypoventilation syndrome (Acute) Generalized weakness (Acute) Pneumonia (Acute) Amenorrhea (Acute) Foot drop, left (Acute) Well woman exam (Acute) Open wound of left foot (Acute) Constipation (Acute) Mass of left foot (Acute) Poor historian (Acute) Chronic constipation (Acute) Dysplasia of cervix, low grade (FÁTIMA 1) (Acute) At high risk for breast cancer (Acute) ASCUS of cervix with negative high risk HPV (Acute) Skin candidiasis (Acute) Nipple discharge (Acute) Abnormal uterine bleeding (Acute) Cough variant asthma (Acute) Annual physical exam (Acute) IBS (irritable colon syndrome) (Acute) Morbid obesity with BMI of 45.0-49.9, adult (Acute) GERD with esophagitis (Acute) Cough (Acute) Hypothyroidism (Acute) Pituitary adenoma (Acute) Migraines (Acute) Allergic rhinitis (Acute) Fibromyalgia (Acute) GERD (gastroesophageal reflux disease) (Acute) Insomnia (Acute) Hypothyroidism (Acute) Right hip pain (Acute) Lumbar pain with radiation down right leg (Acute) Cough (Acute) Tinea pedis (Acute) Fibromyalgia (Acute) Lower extremity edema (Acute) Irritable bowel syndrome with both constipation and diarrhea (Acute) Esophageal erosions (Acute) GERD (gastroesophageal reflux disease) (Acute) Epigastric pain (Acute) Past Medical History Medical History Foot drop, left Constipation Mass of left foot IBS (irritable colon syndrome) Morbid obesity with BMI of 45.0-49.9, adult GERD with esophagitis DMII (diabetes mellitus, type 2) Fibroadenoma of breast Fibromyalgia Hypothyroid PCOS (polycystic ovarian syndrome) PTSD (post-traumatic stress disorder) Family History Family History Father Acral gangrene Mother Cancer Father Diabetes Gangrene Mother Diabetes Hypertension Thyroid disease Cervical cancer Dementia Son In good health Maternal Grandmother Breast cancer Sister Breast cancer Other Mental health disorder Family history of problems with anesthesia: No Surgical History Surgical History History of excision of mass (08/07/22) History of esophagogastroduodenoscopy (EGD) History of D&C History of hand surgery History of section History of lumpectomy of right breast History of appendectomy Hx of appendectomy History of Problems with Anesthesia: No Social History Social History Household Members: Spouse Housing: [facility] Housing Other:: 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, 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 Alcohol intake: never Patient Tobacco Use Status: Never used Tobacco Advance Directives Date on File: 07/21/24 Current occupational status: disabled Sexual orientation: Straight/Heterosexual Gender identity: Female Meds Allergies Allergy/AdvReac Type Severity Reaction Status Date / Time metronidazole (From FLAGYL) Allergy Severe CHEST PAIN Verified 01/06/25 19:39 TO LEFT SHOULDER, bacitracin (BACITRACIN) Allergy Intermediate BURNING, Verified 01/06/25 19:39 ITCHING risperidone (From Risperdal) Allergy Intermediate high level Verified 01/06/25 19:39 prolactin aripiprazole (From Abilify) Allergy Mild ITCHING Verified 01/06/25 19:39 iopromide (From Ultravist) Allergy Mild DIZZY, DRY Verified 01/06/25 19:39 THROAT AND MOUTH [facility] 650 Allergy Intermediate attention Uncoded 08/21/24 02:46 issues Active Medications: Current Medications Acetaminophen (Acetaminophen 325 Mg Tablet) 650 mg PO Q6H PRN PRN Reason: Pain, Mild 1-3,fever,headache Last Admin: 01/23/25 15:53 Dose: 650 mg Artificial Tears (Artificial Tears 15 Ml Drops) 2 drop EYE-BOTH Q4H PRN PRN Reason: Dry Eyes Chlorhexidine Gluconate (Chlorhexidine Gluc Oral Rinse 15 Ml Mouthwash) 15 ml BUCCAL TID [facility] Last Admin: 01/29/25 20:41 Dose: 15 ml Enoxaparin Sodium (Enoxaparin Sodium 40 Mg/0.4 Ml Syringe) 40 mg SUBCUT Q24H [facility] Last Admin: 01/29/25 11:04 Dose: 40 mg Famotidine (Famotidine/Pf 20 Mg/2 Ml Vial) 20 mg IVPUSH DAILY [facility] Last Admin: 01/29/25 08:06 Dose: 20 mg Propofol (Diprivan) 1,000 mg in 100 mls @ 0 mls/hr IVCONT .Q0M [facility]; Protocol Last Admin: 01/30/25 05:08 Dose: 50 mcg/kg/min, 32.13 mls/hr Norepinephrine Bitartrate (Levophed) 8 mg in 250 mls @ 0 mls/hr IVCONT .Q0M [facility]; Protocol Last Admin: 01/29/25 18:45 Dose: 0.05 mcg/kg/min, 10.04 mls/hr Cefazolin Sodium/Dextrose (Ancef) 2 gm in 50 mls @ 100 mls/hr IV PREOP ONE Stop: 01/30/25 13:42 Potassium Chloride (Potassium Chloride/H20) 10 meq in 100 mls @ 100 mls/hr IV Q1H [facility] Stop: 01/30/25 11:14 Insulin Human Lispro (Insulin Lispro 100 Unit/Ml 3 Ml Vial) 0 unit SUBCUT Q6H [facility]; Protocol Last Admin: 01/30/25 06:54 Dose: Not Given Lactulose (Lactulose 20 Gm/30 Ml Solution) 30 gm PO DAILY PRN PRN Reason: constipation Levothyroxine Sodium (Levothyroxine Sodium 88 Mcg Tablet) 88 mcg PO DAILY@0600 [facility] Last Admin: 01/30/25 05:08 Dose: Not Given Magnesium Hydroxide (Milk Of Magnesia 30 Ml Oral.Susp) 30 ml PO DAILY PRN PRN Reason: Constipation Ondansetron HCl (Ondansetron Hcl 4 Mg/2 Ml Vial) 4 mg IVPUSH Q6H PRN PRN Reason: Nausea and Vomiting Last Admin: 01/24/25 13:51 Dose: 4 mg Sodium Chloride (0.9 % Sodium Chloride Flush 3 Ml Syringe) 3 ml IVFLUSH QSHIFT [facility] Last Admin: 01/30/25 00:33 Dose: Not Given Home Medications ?Medication ?Instructions ?Recorded ?Confirmed ?Last Taken ?Type galcanezumab-gnlm 120 mg/mL 120 mg subcut QMONTH 05/0801/07/25 07/04/24 History subcutaneous pen injector (Emgality Pen) riboflavin (vitamin B2) 100 mg 200 mg PO BID 05/29/20 01/07/25 Unknown History tablet atorvastatin 10 mg tablet 40 mg PO BEDTIME 07/23/21 Unknown History chlorthalidone 25 mg tablet 25 mg PO DAILY 07/30/21 Unknown History semaglutide 0.25 mg or 0.5 mg (2 0.5 mg subcut TH 10/1201/07/25 12/28/24 History mg/3 mL) subcutaneous pen injector (Ozempic) lisinopril 10 mg tablet 10 mg PO DAILY 07/30/2312/2007/20/24 History acetaminophen 500 mg tablet 500 - 1,000 mg PO Q8H PRN Fever Or 01/07/25 01/07/25 Unknown History Pain celecoxib 200 mg capsule 200 mg PO BID PRN mild pain 01/07/25 01/07/25 Unknown History docusate sodium 100 mg capsule 100 mg PO BEDTIME 01/0701/07/25 Unknown History (Stool Softener) hydroxyzine HCl 25 mg tablet 25 mg PO BID PRN Anxiety 01/07/25 01/07/25 Unknown History ibuprofen 400 mg tablet 400 mg PO Q6H PRN Pain 01/0701/07/25 Unknown History loratadine 10 mg tablet 10 mg PO BEDTIME PRN Allergy 01/07/25 01/07/25 Unknown History Symptoms olmesartan 5 mg tablet 5 mg PO DAILY 01/07/2501/07 Unknown History Exam Height,Weight and Vital Signs: Height 5 ft 4 in Weight 102.1 kg Last Vital Signs Temp 97.3 F 01/30/25 06:00 Pulse 63 01/30/25 06:00 Resp 16 01/30/25 06:00 BP 105/63 01/30/25 06:00 Pulse Ox 96 01/30/25 06:00 O2 Del Method Mechanical Ventilation 01/30/25 06:00 O2 Flow Rate 2 01/23/25 13:00 FiO2 21 01/30/25 06:00 Oxygen Flow Rate 45 01/22/25 12:00 Pertinent Lab Results Pertinent Lab Results: Laboratory Tests 01/06/25 01/06/25 01/06/25 20:14 20:25 23:32 WBC 10.7 RBC 4.51 Hgb 12.7 Hct 36.8 L MCV 81.6 MCH 28.2 MCHC 34.5 RDW 14.3 Plt Count 333 MPV 8.7 L Immature Gran % (Auto) 0.4 Neut % (Auto) 78.6 H Lymph % (Auto) 15.9 L [place] % (Auto) 4.6 Eos % (Auto) 0.2 Baso % (Auto) 0.3 Lymph # (Auto) 1.7 [place] # (Auto) 0.5 Eos # (Auto) 0.0 Baso # (Auto) 0.0 Abs Immat Gran (auto) 0.04 H Absolute Neuts (auto) 8.4 H Absolute Nucleated RBC 0.000 Nucleated RBC % (auto) 0.0 Neutrophils % (Manual) Band Neutrophils % Lymphocytes % (Manual) Monocytes % (Manual) Abs Neuts (Manual) Lymphocytes # (Manual) Monocytes # (Manual) Smudge Cells Toxic Vacuolation Platelet Estimate Plt Morphology Comment RBC Morphology Ovalocytes Smear Tech's Comments ESR PT INR O2 Saturation ABG pH at Pt Temp ABG pCO2 at Pt Temp ABG pO2 at Pt Temp ABG HCO3 ABG Base Excess (Actual) VBG pH 7.37 VBG pCO2 69 VBG pO2 82 VBG HCO3 40 H VBG O2 Saturation 94.0 VBG Base Excess 12.0 Sodium 137 Potassium 3.7 Chloride 94 L Carbon Dioxide 32 H Anion Gap 15 BUN 15 Creatinine 0.42 L Estim Creat Clear Calc 192.1 Estimated GFR > 60 POC Glucose Random Glucose 120 H Lactic Acid 0.9 Lactic Acid F/U @ 2Hr Calcium 9.4 D Phosphorus Magnesium Total Bilirubin 0.3 AST 21 ALT 17 Alkaline Phosphatase 95 Total Creatine Kinase 115 Troponin I High Sens < 2.7 C-Reactive Protein B-Natriuretic Peptide 12 Total Protein 8.0 Albumin 4.4 Triglycerides Beta HCG, Quant < 2 Nasal Screen MRSA (PCR) Nasal S. aureus Screen Nasal MRSA/S.aureus Interp Vancomycin Trough Random Vancomycin Urine Opiates Screen Ur Buprenorphine Scrn Ur Oxycodone Screen Urine Methadone Screen Urine Fentanyl Screen Ur Barbiturates Screen Ur Phencyclidine Scrn Ur Amphetamines Screen U Benzodiazepines Scrn Urine Cocaine Screen U Marijuana (THC) Screen SUKHJINDER Screen SUKHJINDER Titer SUKHJINDER Titer 2 SUKHJINDER Titer 3 SUKHJINDER Pattern SUKHJINDER Pattern 2 SUKHJINDER Pattern 3 Herpes Simplex Culture HSV I IgG Ab HSV II IgG Influenza Type A (PCR) NEGATIVE Influenza Type B (PCR) NEGATIVE RSV RNA Qual (PCR) NEGATIVE SARS-CoV-2 RNA (RT-PCR) NEGATIVE Ref Lab Test Result 07/21/25 07/21/25 07/21/25 04:08 04:11 11:18 WBC 15.9 H RBC 4.78 Hgb 13.2 Hct 41.6 MCV 87.0 D MCH 27.6 MCHC 31.7 RDW 14.3 Plt Count 519 H D MPV 8.8 L Immature Gran % (Auto) Neut % (Auto) Lymph % (Auto) [place] % (Auto) Eos % (Auto) Baso % (Auto) Lymph # (Auto) [place] # (Auto) Eos # (Auto) Baso # (Auto) Abs Immat Gran (auto) Absolute Neuts (auto) Absolute Nucleated RBC 0.000 Nucleated RBC % (auto) 0.0 Neutrophils % (Manual) Band Neutrophils % Lymphocytes % (Manual) Monocytes % (Manual) Abs Neuts (Manual) Lymphocytes # (Manual) Monocytes # (Manual) Smudge Cells Toxic Vacuolation Platelet Estimate Plt Morphology Comment RBC Morphology Ovalocytes Smear Tech's Comments ESR PT INR O2 Saturation ABG pH at Pt Temp ABG pCO2 at Pt Temp ABG pO2 at Pt Temp ABG HCO3 ABG Base Excess (Actual) VBG pH 7.18 L* 7.35 VBG pCO2 117 88 VBG pO2 168 42 VBG HCO3 44 H 49 H VBG O2 Saturation 100.0 64.0 VBG Base Excess 10.3 18.5 Sodium 139 Potassium 4.4 Chloride 94 L Carbon Dioxide 37 H Anion Gap 12 BUN 11 Creatinine 0.40 L Estim Creat Clear Calc 201.8 Estimated GFR > 60 POC Glucose Random Glucose 164 H Lactic Acid Lactic Acid F/U @ 2Hr Calcium 9.5 Phosphorus Magnesium 2.3 Total Bilirubin AST ALT Alkaline Phosphatase Total Creatine Kinase Troponin I High Sens C-Reactive Protein B-Natriuretic Peptide Total Protein Albumin Triglycerides Beta HCG, Quant Nasal Screen MRSA (PCR) Nasal S. aureus Screen Nasal MRSA/S.aureus Interp Vancomycin Trough Random Vancomycin Urine Opiates Screen Ur Buprenorphine Scrn Ur Oxycodone Screen Urine Methadone Screen Urine Fentanyl Screen Ur Barbiturates Screen Ur Phencyclidine Scrn Ur Amphetamines Screen U Benzodiazepines Scrn Urine Cocaine Screen U Marijuana (THC) Screen SUKHJINDER Screen NEGATIVE SUKHJINDER Titer TNP SUKHJINDER Titer 2 TNP SUKHJINDER Titer 3 TNP SUKHJINDER Pattern TNP SUKHJINDER Pattern 2 TNP SUKHJINDER Pattern 3 TNP Herpes Simplex Culture HSV I IgG Ab HSV II IgG Influenza Type A (PCR) Influenza Type B (PCR) RSV RNA Qual (PCR) SARS-CoV-2 RNA (RT-PCR) Ref Lab Test Result 01/09/25 01/09/25 01/09/25 05:21 05:28 05:45 WBC 11.9 H RBC 4.45 Hgb 12.6 Hct 39.3 MCV 88.3 MCH 28.3 MCHC 32.1 RDW 14.1 Plt Count 523 H MPV 8.6 L Immature Gran % (Auto) 0.5 H Neut % (Auto) 90.0 H Lymph % (Auto) 5.8 L [place] % (Auto) 3.2 Eos % (Auto) 0.4 Baso % (Auto) 0.1 Lymph # (Auto) 0.7 L [place] # (Auto) 0.4 Eos # (Auto) 0.1 Baso # (Auto) 0.0 Abs Immat Gran (auto) 0.06 H Absolute Neuts (auto) 10.7 H Absolute Nucleated RBC 0.000 Nucleated RBC % (auto) 0.0 Neutrophils % (Manual) Band Neutrophils % Lymphocytes % (Manual) Monocytes % (Manual) Abs Neuts (Manual) Lymphocytes # (Manual) Monocytes # (Manual) Smudge Cells Toxic Vacuolation Platelet Estimate Plt Morphology Comment RBC Morphology Ovalocytes Smear Tech's Comments ESR 30 H PT 12.0 INR 1.0 O2 Saturation TNP ABG pH at Pt Temp 6.99 L* ABG pCO2 at Pt Temp > 150 H* ABG pO2 at Pt Temp 154 H ABG HCO3 TNP ABG Base Excess (Actual) TNP VBG pH VBG pCO2 VBG pO2 VBG HCO3 VBG O2 Saturation VBG Base Excess Sodium 142 Potassium 4.2 Chloride 91 L Carbon Dioxide 42 H* Anion Gap 13 BUN 19 H Creatinine 0.64 Estim Creat Clear Calc 126.1 Estimated GFR > 60 POC Glucose 139 H Random Glucose 141 H Lactic Acid 1.8 Lactic Acid F/U @ 2Hr Calcium 9.5 Phosphorus 6.0 H Magnesium 2.7 H Total Bilirubin 0.2 AST 25 ALT 29 Alkaline Phosphatase 98 Total Creatine Kinase 112 Troponin I High Sens 4.4 D C-Reactive Protein 1.01 H B-Natriuretic Peptide 63 Total Protein 7.8 Albumin 4.2 Triglycerides Beta HCG, Quant Nasal Screen MRSA (PCR) Nasal S. aureus Screen Nasal MRSA/S.aureus Interp Vancomycin Trough Random Vancomycin Urine Opiates Screen Ur Buprenorphine Scrn Ur Oxycodone Screen Urine Methadone Screen Urine Fentanyl Screen Ur Barbiturates Screen Ur Phencyclidine Scrn Ur Amphetamines Screen U Benzodiazepines Scrn Urine Cocaine Screen U Marijuana (THC) Screen SUKHJINDER Screen SUKHJINDER Titer SUKHJINDER Titer 2 SUKHJINDER Titer 3 SUKHJINDER Pattern SUKHJINDER Pattern 2 SUKHJINDER Pattern 3 Herpes Simplex Culture HSV I IgG Ab HSV II IgG Influenza Type A (PCR) Influenza Type B (PCR) RSV RNA Qual (PCR) SARS-CoV-2 RNA (RT-PCR) Ref Lab Test Result 01/09/25 01/09/25 01/09/25 05:53 06:33 09:22 WBC RBC Hgb Hct MCV MCH MCHC RDW Plt Count MPV Immature Gran % (Auto) Neut % (Auto) Lymph % (Auto) [place] % (Auto) Eos % (Auto) Baso % (Auto) Lymph # (Auto) [place] # (Auto) Eos # (Auto) Baso # (Auto) Abs Immat Gran (auto) Absolute Neuts (auto) Absolute Nucleated RBC Nucleated RBC % (auto) Neutrophils % (Manual) Band Neutrophils % Lymphocytes % (Manual) Monocytes % (Manual) Abs Neuts (Manual) Lymphocytes # (Manual) Monocytes # (Manual) Smudge Cells Toxic Vacuolation Platelet Estimate Plt Morphology Comment RBC Morphology Ovalocytes Smear Tech's Comments ESR PT INR O2 Saturation 93.0 ABG pH at Pt Temp 7.54 H ABG pCO2 at Pt Temp 48 H ABG pO2 at Pt Temp 58 L ABG HCO3 41 H ABG Base Excess (Actual) 16.4 VBG pH 7.33 7.38 VBG pCO2 83 81 VBG pO2 74 157 VBG HCO3 45 H 48 H VBG O2 Saturation 97.0 99.0 VBG Base Excess 15.1 18.1 Sodium Potassium Chloride Carbon Dioxide Anion Gap BUN Creatinine Estim Creat Clear Calc Estimated GFR POC Glucose Random Glucose Lactic Acid Lactic Acid F/U @ 2Hr Calcium Phosphorus Magnesium Total Bilirubin AST ALT Alkaline Phosphatase Total Creatine Kinase Troponin I High Sens C-Reactive Protein B-Natriuretic Peptide Total Protein Albumin Triglycerides Beta HCG, Quant Nasal Screen MRSA (PCR) Nasal S. aureus Screen Nasal MRSA/S.aureus Interp Vancomycin Trough Random Vancomycin Urine Opiates Screen Ur Buprenorphine Scrn Ur Oxycodone Screen Urine Methadone Screen Urine Fentanyl Screen Ur Barbiturates Screen Ur Phencyclidine Scrn Ur Amphetamines Screen U Benzodiazepines Scrn Urine Cocaine Screen U Marijuana (THC) Screen SUKHJINDER Screen SUKHJINDER Titer SUKHJINDER Titer 2 SUKHJINDER Titer 3 SUKHJINDER Pattern SUKHJINDER Pattern 2 SUKHJINDER Pattern 3 Herpes Simplex Culture HSV I IgG Ab HSV II IgG Influenza Type A (PCR) Influenza Type B (PCR) RSV RNA Qual (PCR) SARS-CoV-2 RNA (RT-PCR) Ref Lab Test Result 01/10/25 01/10/25 01/10/25 04:46 04:52 12:15 WBC 16.7 H RBC 4.59 Hgb 12.8 Hct 37.9 MCV 82.6 D MCH 27.9 MCHC 33.8 RDW 13.8 Plt Count 402 H MPV 9.0 L Immature Gran % (Auto) 0.5 H Neut % (Auto) 77.2 H Lymph % (Auto) 15.6 L [place] % (Auto) 6.1 Eos % (Auto) 0.4 Baso % (Auto) 0.2 Lymph # (Auto) 2.6 [place] # (Auto) 1.0 Eos # (Auto) 0.1 Baso # (Auto) 0.0 Abs Immat Gran (auto) 0.08 H Absolute Neuts (auto) 12.9 H Absolute Nucleated RBC 0.000 Nucleated RBC % (auto) 0.0 Neutrophils % (Manual) Band Neutrophils % Lymphocytes % (Manual) Monocytes % (Manual) Abs Neuts (Manual) Lymphocytes # (Manual) Monocytes # (Manual) Smudge Cells Toxic Vacuolation Platelet Estimate Plt Morphology Comment RBC Morphology Ovalocytes Smear Tech's Comments ESR PT INR O2 Saturation 94.0 ABG pH at Pt Temp 7.50 H ABG pCO2 at Pt Temp 56 H ABG pO2 at Pt Temp 69 L ABG HCO3 45 H ABG Base Excess (Actual) 18.9 VBG pH 7.65 H* VBG pCO2 35 VBG pO2 31 VBG HCO3 40 H VBG O2 Saturation 59.0 VBG Base Excess 18.2 Sodium 138 Potassium 2.3 L* D Chloride 89 L Carbon Dioxide 34 H Anion Gap 17 BUN 17 H Creatinine 0.53 Estim Creat Clear Calc 152.2 Estimated GFR > 60 POC Glucose Random Glucose 157 H Lactic Acid Lactic Acid F/U @ 2Hr Calcium 9.5 Phosphorus < 0.5 L* Magnesium 1.8 Total Bilirubin AST ALT Alkaline Phosphatase Total Creatine Kinase Troponin I High Sens C-Reactive Protein B-Natriuretic Peptide Total Protein Albumin 3.8 Triglycerides Beta HCG, Quant Nasal Screen MRSA (PCR) Nasal S. aureus Screen Nasal MRSA/S.aureus Interp Vancomycin Trough Random Vancomycin Urine Opiates Screen Ur Buprenorphine Scrn Ur Oxycodone Screen Urine Methadone Screen Urine Fentanyl Screen Ur Barbiturates Screen Ur Phencyclidine Scrn Ur Amphetamines Screen U Benzodiazepines Scrn Urine Cocaine Screen U Marijuana (THC) Screen SUKHJINDER Screen SUKHJINDER Titer SUKHJINDER Titer 2 SUKHJINDER Titer 3 SUKHJINDER Pattern SUKHJINDER Pattern 2 SUKHJINDER Pattern 3 Herpes Simplex Culture HSV I IgG Ab HSV II IgG Influenza Type A (PCR) Influenza Type B (PCR) RSV RNA Qual (PCR) SARS-CoV-2 RNA (RT-PCR) Ref Lab Test Result 01/10/25 01/10/25 01/10/25 16:10 21:57 23:14 WBC RBC Hgb Hct MCV MCH MCHC RDW Plt Count MPV Immature Gran % (Auto) Neut % (Auto) Lymph % (Auto) [place] % (Auto) Eos % (Auto) Baso % (Auto) Lymph # (Auto) [place] # (Auto) Eos # (Auto) Baso # (Auto) Abs Immat Gran (auto) Absolute Neuts (auto) Absolute Nucleated RBC Nucleated RBC % (auto) Neutrophils % (Manual) Band Neutrophils % Lymphocytes % (Manual) Monocytes % (Manual) Abs Neuts (Manual) Lymphocytes # (Manual) Monocytes # (Manual) Smudge Cells Toxic Vacuolation Platelet Estimate Plt Morphology Comment RBC Morphology Ovalocytes Smear Tech's Comments ESR PT INR O2 Saturation 75.0 ABG pH at Pt Temp 7.48 H ABG pCO2 at Pt Temp 60 H* ABG pO2 at Pt Temp 48 L* ABG HCO3 45 H ABG Base Excess (Actual) 19.0 VBG pH VBG pCO2 VBG pO2 VBG HCO3 VBG O2 Saturation VBG Base Excess Sodium 140 140 Potassium 3.1 L D 3.4 Chloride 93 L 94 L Carbon Dioxide 38 H 35 H Anion Gap 12 14 BUN 14 14 Creatinine 0.45 L 0.44 L Estim Creat Clear Calc 175.6 179.6 Estimated GFR > 60 > 60 POC Glucose Random Glucose 133 H 90 Lactic Acid Lactic Acid F/U @ 2Hr Calcium 8.6 D 8.5 Phosphorus 3.9 2.8 Magnesium 1.8 1.8 Total Bilirubin AST ALT Alkaline Phosphatase Total Creatine Kinase Troponin I High Sens C-Reactive Protein B-Natriuretic Peptide Total Protein Albumin Triglycerides Beta HCG, Quant Nasal Screen MRSA (PCR) Nasal S. aureus Screen Nasal MRSA/S.aureus Interp Vancomycin Trough Random Vancomycin Urine Opiates Screen Ur Buprenorphine Scrn Ur Oxycodone Screen Urine Methadone Screen Urine Fentanyl Screen Ur Barbiturates Screen Ur Phencyclidine Scrn Ur Amphetamines Screen U Benzodiazepines Scrn Urine Cocaine Screen U Marijuana (THC) Screen SUKHJINDER Screen SUKHJINDER Titer SUKHJINDER Titer 2 SUKHJINDER Titer 3 SUKHJINDER Pattern SUKHJINDER Pattern 2 SUKHJINDER Pattern 3 Herpes Simplex Culture HSV I IgG Ab HSV II IgG Influenza Type A (PCR) Influenza Type B (PCR) RSV RNA Qual (PCR) SARS-CoV-2 RNA (RT-PCR) Ref Lab Test Result 01/11/25 01/11/25 01/11/25 04:56 04:57 15:24 WBC 18.0 H RBC 4.25 Hgb 11.7 L Hct 34.9 L MCV 82.1 MCH 27.5 MCHC 33.5 RDW 14.9 Plt Count 275 D MPV 8.9 L Immature Gran % (Auto) Cancelled Neut % (Auto) Cancelled Lymph % (Auto) Cancelled [place] % (Auto) Cancelled Eos % (Auto) Cancelled Baso % (Auto) Cancelled Lymph # (Auto) Cancelled [place] # (Auto) Cancelled Eos # (Auto) Cancelled Baso # (Auto) Cancelled Abs Immat Gran (auto) Cancelled Absolute Neuts (auto) Cancelled Absolute Nucleated RBC 0.000 Nucleated RBC % (auto) 0.0 Neutrophils % (Manual) 89 H Band Neutrophils % 3 Lymphocytes % (Manual) 3 L Monocytes % (Manual) 5 Abs Neuts (Manual) 16.6 H Lymphocytes # (Manual) 0.5 L Monocytes # (Manual) 0.9 Smudge Cells Toxic Vacuolation Platelet Estimate NORMAL Plt Morphology Comment NORMAL RBC Morphology NORMAL Ovalocytes Smear Tech's Comments ESR PT INR O2 Saturation ABG pH at Pt Temp ABG pCO2 at Pt Temp ABG pO2 at Pt Temp ABG HCO3 ABG Base Excess (Actual) VBG pH 7.50 H VBG pCO2 56 VBG pO2 54 VBG HCO3 45 H VBG O2 Saturation 83.0 VBG Base Excess 18.9 Sodium 141 Potassium 3.0 L Chloride 91 L Carbon Dioxide 37 H Anion Gap 16 BUN 11 Creatinine 0.43 L Estim Creat Clear Calc 183.8 Estimated GFR > 60 POC Glucose Random Glucose 112 Lactic Acid Lactic Acid F/U @ 2Hr Calcium 8.4 Phosphorus 3.2 Magnesium 1.7 Total Bilirubin AST ALT Alkaline Phosphatase Total Creatine Kinase Troponin I High Sens C-Reactive Protein B-Natriuretic Peptide Total Protein Albumin 3.6 Triglycerides Beta HCG, Quant Nasal Screen MRSA (PCR) Nasal S. aureus Screen Nasal MRSA/S.aureus Interp Vancomycin Trough Random Vancomycin Urine Opiates Screen Not Detected Ur Buprenorphine Scrn Not Detected Ur Oxycodone Screen Not Detected Urine Methadone Screen Not Detected Urine Fentanyl Screen Not Detected Ur Barbiturates Screen Not Detected Ur Phencyclidine Scrn Not Detected Ur Amphetamines Screen Not Detected U Benzodiazepines Scrn Not Detected Urine Cocaine Screen Not Detected U Marijuana (THC) Screen Not Detected SUKHJINDER Screen SUKHJINDER Titer SUKHJINDER Titer 2 SUKHJINDER Titer 3 SUKHJINDER Pattern SUKHJINDER Pattern 2 SUKHJINDER Pattern 3 Herpes Simplex Culture HSV I IgG Ab HSV II IgG Influenza Type A (PCR) Influenza Type B (PCR) RSV RNA Qual (PCR) SARS-CoV-2 RNA (RT-PCR) Ref Lab Test Result 01/11/25 01/11/25 01/11/25 19:04 20:01 20:03 WBC RBC Hgb Hct MCV MCH MCHC RDW Plt Count MPV Immature Gran % (Auto) Neut % (Auto) Lymph % (Auto) [place] % (Auto) Eos % (Auto) Baso % (Auto) Lymph # (Auto) [place] # (Auto) Eos # (Auto) Baso # (Auto) Abs Immat Gran (auto) Absolute Neuts (auto) Absolute Nucleated RBC Nucleated RBC % (auto) Neutrophils % (Manual) Band Neutrophils % Lymphocytes % (Manual) Monocytes % (Manual) Abs Neuts (Manual) Lymphocytes # (Manual) Monocytes # (Manual) Smudge Cells Toxic Vacuolation Platelet Estimate Plt Morphology Comment RBC Morphology Ovalocytes Smear Tech's Comments ESR PT INR O2 Saturation 79.0 ABG pH at Pt Temp 7.27 L ABG pCO2 at Pt Temp 100 H* ABG pO2 at Pt Temp 60 L ABG HCO3 46 H ABG Base Excess (Actual) 14.0 VBG pH 7.37 VBG pCO2 71 VBG pO2 27 VBG HCO3 41 H VBG O2 Saturation < 30.0 VBG Base Excess 13.0 Sodium 140 Potassium 4.2 D Chloride 92 L Carbon Dioxide 34 H Anion Gap 18 BUN 13 Creatinine 0.48 L Estim Creat Clear Calc 164.1 Estimated GFR > 60 POC Glucose Random Glucose 141 H Lactic Acid Lactic Acid F/U @ 2Hr Calcium 9.2 D Phosphorus 4.6 H Magnesium 2.2 Total Bilirubin AST ALT Alkaline Phosphatase Total Creatine Kinase Troponin I High Sens C-Reactive Protein B-Natriuretic Peptide Total Protein Albumin 4.2 Triglycerides Beta HCG, Quant Nasal Screen MRSA (PCR) Nasal S. aureus Screen Nasal MRSA/S.aureus Interp Vancomycin Trough Random Vancomycin Urine Opiates Screen Ur Buprenorphine Scrn Ur Oxycodone Screen Urine Methadone Screen Urine Fentanyl Screen Ur Barbiturates Screen Ur Phencyclidine Scrn Ur Amphetamines Screen U Benzodiazepines Scrn Urine Cocaine Screen U Marijuana (THC) Screen SUKHJINDER Screen SUKHJINDER Titer SUKHJINDER Titer 2 SUKHJINDER Titer 3 SUKHJINDER Pattern SUKHJINDER Pattern 2 SUKHJINDER Pattern 3 Herpes Simplex Culture HSV I IgG Ab HSV II IgG Influenza Type A (PCR) Influenza Type B (PCR) RSV RNA Qual (PCR) SARS-CoV-2 RNA (RT-PCR) Ref Lab Test Result 01/11/25 01/11/25 01/11/25 20:57 21:36 22:34 WBC RBC Hgb Hct MCV MCH MCHC RDW Plt Count MPV Immature Gran % (Auto) Neut % (Auto) Lymph % (Auto) [place] % (Auto) Eos % (Auto) Baso % (Auto) Lymph # (Auto) [place] # (Auto) Eos # (Auto) Baso # (Auto) Abs Immat Gran (auto) Absolute Neuts (auto) Absolute Nucleated RBC Nucleated RBC % (auto) Neutrophils % (Manual) Band Neutrophils % Lymphocytes % (Manual) Monocytes % (Manual) Abs Neuts (Manual) Lymphocytes # (Manual) Monocytes # (Manual) Smudge Cells Toxic Vacuolation Platelet Estimate Plt Morphology Comment RBC Morphology Ovalocytes Smear Tech's Comments ESR PT INR O2 Saturation 95.0 ABG pH at Pt Temp 7.49 H ABG pCO2 at Pt Temp 44 ABG pO2 at Pt Temp 74 L ABG HCO3 34 H ABG Base Excess (Actual) 10.3 VBG pH 7.49 H VBG pCO2 49 VBG pO2 32 VBG HCO3 38 H VBG O2 Saturation 50.0 VBG Base Excess 13.2 Sodium Potassium Chloride Carbon Dioxide Anion Gap BUN Creatinine Estim Creat Clear Calc Estimated GFR POC Glucose Random Glucose Lactic Acid Lactic Acid F/U @ 2Hr Calcium Phosphorus Magnesium Total Bilirubin AST ALT Alkaline Phosphatase Total Creatine Kinase Troponin I High Sens 26.1 H D C-Reactive Protein B-Natriuretic Peptide 34 Total Protein Albumin Triglycerides Beta HCG, Quant Nasal Screen MRSA (PCR) Nasal S. aureus Screen Nasal MRSA/S.aureus Interp Vancomycin Trough Random Vancomycin Urine Opiates Screen Ur Buprenorphine Scrn Ur Oxycodone Screen Urine Methadone Screen Urine Fentanyl Screen Ur Barbiturates Screen Ur Phencyclidine Scrn Ur Amphetamines Screen U Benzodiazepines Scrn Urine Cocaine Screen U Marijuana (THC) Screen SUKHJINDER Screen SUKHJINDER Titer SUKHJINDER Titer 2 SUKHJINDER Titer 3 SUKHJINDER Pattern SUKHJINDER Pattern 2 SUKHJINDER Pattern 3 Herpes Simplex Culture HSV I IgG Ab HSV II IgG Influenza Type A (PCR) Influenza Type B (PCR) RSV RNA Qual (PCR) SARS-CoV-2 RNA (RT-PCR) Ref Lab Test Result 01/11/25 01/12/25 01/12/25 22:38 00:57 04:57 WBC 25.6 H RBC 3.75 L Hgb 10.5 L Hct 30.4 L MCV 81.1 MCH 28.0 MCHC 34.5 RDW 14.6 Plt Count 438 H D MPV 9.3 L Immature Gran % (Auto) Cancelled Neut % (Auto) Cancelled Lymph % (Auto) Cancelled [place] % (Auto) Cancelled Eos % (Auto) Cancelled Baso % (Auto) Cancelled Lymph # (Auto) Cancelled [place] # (Auto) Cancelled Eos # (Auto) Cancelled Baso # (Auto) Cancelled Abs Immat Gran (auto) Cancelled Absolute Neuts (auto) Cancelled Absolute Nucleated RBC 0.000 Nucleated RBC % (auto) 0.0 Neutrophils % (Manual) 95 H Band Neutrophils % 0 L Lymphocytes % (Manual) 4 L Monocytes % (Manual) 1 L Abs Neuts (Manual) 24.3 H Lymphocytes # (Manual) 1.0 L Monocytes # (Manual) 0.3 Smudge Cells PRESENT Toxic Vacuolation PRESENT Platelet Estimate NORMAL Plt Morphology Comment NORMAL RBC Morphology NOTED Ovalocytes 1+ (5-14) Smear Tech's Comments ESR PT INR O2 Saturation ABG pH at Pt Temp ABG pCO2 at Pt Temp ABG pO2 at Pt Temp ABG HCO3 ABG Base Excess (Actual) VBG pH 7.60 H* VBG pCO2 30 VBG pO2 39 VBG HCO3 30 H VBG O2 Saturation 67.0 VBG Base Excess 9.4 Sodium 139 Potassium 2.6 L* D Chloride 94 L Carbon Dioxide 28 Anion Gap 20 BUN 14 Creatinine 0.49 L Estim Creat Clear Calc 162.0 Estimated GFR > 60 POC Glucose Random Glucose 214 H Lactic Acid 3.1 H* Lactic Acid F/U @ 2Hr 1.8 Calcium 8.7 Phosphorus 1.3 L Magnesium 1.8 Total Bilirubin AST ALT Alkaline Phosphatase Total Creatine Kinase Troponin I High Sens C-Reactive Protein B-Natriuretic Peptide Total Protein Albumin 4.2 Triglycerides Beta HCG, Quant Nasal Screen MRSA (PCR) Nasal S. aureus Screen Nasal MRSA/S.aureus Interp Vancomycin Trough Random Vancomycin Urine Opiates Screen Ur Buprenorphine Scrn Ur Oxycodone Screen Urine Methadone Screen Urine Fentanyl Screen Ur Barbiturates Screen Ur Phencyclidine Scrn Ur Amphetamines Screen U Benzodiazepines Scrn Urine Cocaine Screen U Marijuana (THC) Screen SUKHJINDER Screen SUKHJINDER Titer SUKHJINDER Titer 2 SUKHJINDER Titer 3 SUKHJINDER Pattern SUKHJINDER Pattern 2 SUKHJINDER Pattern 3 Herpes Simplex Culture HSV I IgG Ab HSV II IgG Influenza Type A (PCR) Influenza Type B (PCR) RSV RNA Qual (PCR) SARS-CoV-2 RNA (RT-PCR) Ref Lab Test Result 01/12/25 01/12/25 01/12/25 10:00 10:00 19:07 WBC RBC Hgb Hct MCV MCH MCHC RDW Plt Count MPV Immature Gran % (Auto) Neut % (Auto) Lymph % (Auto) [place] % (Auto) Eos % (Auto) Baso % (Auto) Lymph # (Auto) [place] # (Auto) Eos # (Auto) Baso # (Auto) Abs Immat Gran (auto) Absolute Neuts (auto) Absolute Nucleated RBC Nucleated RBC % (auto) Neutrophils % (Manual) Band Neutrophils % Lymphocytes % (Manual) Monocytes % (Manual) Abs Neuts (Manual) Lymphocytes # (Manual) Monocytes # (Manual) Smudge Cells Toxic Vacuolation Platelet Estimate Plt Morphology Comment RBC Morphology Ovalocytes Smear Tech's Comments ESR PT INR O2 Saturation ABG pH at Pt Temp ABG pCO2 at Pt Temp ABG pO2 at Pt Temp ABG HCO3 ABG Base Excess (Actual) VBG pH VBG pCO2 VBG pO2 VBG HCO3 VBG O2 Saturation VBG Base Excess Sodium 142 Potassium 2.5 L* Chloride 99 Carbon Dioxide 29 Anion Gap 17 BUN 14 Creatinine 0.51 Estim Creat Clear Calc 155.6 Estimated GFR > 60 POC Glucose Random Glucose 221 H Lactic Acid Lactic Acid F/U @ 2Hr Calcium 8.7 Phosphorus 2.5 L Magnesium 2.0 Total Bilirubin AST ALT Alkaline Phosphatase Total Creatine Kinase Troponin I High Sens C-Reactive Protein B-Natriuretic Peptide Total Protein Albumin 4.1 Triglycerides Beta HCG, Quant Nasal Screen MRSA (PCR) Nasal S. aureus Screen Nasal MRSA/S.aureus Interp Vancomycin Trough Random Vancomycin Urine Opiates Screen Ur Buprenorphine Scrn Ur Oxycodone Screen Urine Methadone Screen Urine Fentanyl Screen Ur Barbiturates Screen Ur Phencyclidine Scrn Ur Amphetamines Screen U Benzodiazepines Scrn Urine Cocaine Screen U Marijuana (THC) Screen SUKHJINDER Screen SUKHJINDER Titer SUKHJINDER Titer 2 SUKHJINDER Titer 3 SUKHJINDER Pattern SUKHJINDER Pattern 2 SUKHJINDER Pattern 3 Herpes Simplex Culture HSV I IgG Ab HSV II IgG Influenza Type A (PCR) Influenza Type B (PCR) RSV RNA Qual (PCR) SARS-CoV-2 RNA (RT-PCR) Ref Lab Test Result SEE NOTE Cancelled 01/12/25 01/12/25 01/13/25 19:14 20:56 05:27 WBC 12.8 H RBC 3.73 L Hgb 10.4 L Hct 30.3 L MCV 81.2 MCH 27.9 MCHC 34.3 RDW 15.0 Plt Count 403 H MPV 9.0 L Immature Gran % (Auto) 0.5 H Neut % (Auto) 88.4 H Lymph % (Auto) 5.7 L [place] % (Auto) 5.3 Eos % (Auto) 0.0 Baso % (Auto) 0.1 Lymph # (Auto) 0.7 L [place] # (Auto) 0.7 Eos # (Auto) 0.0 Baso # (Auto) 0.0 Abs Immat Gran (auto) 0.06 H Absolute Neuts (auto) 11.3 H Absolute Nucleated RBC 0.000 Nucleated RBC % (auto) 0.0 Neutrophils % (Manual) Band Neutrophils % Lymphocytes % (Manual) Monocytes % (Manual) Abs Neuts (Manual) Lymphocytes # (Manual) Monocytes # (Manual) Smudge Cells Toxic Vacuolation Platelet Estimate Plt Morphology Comment RBC Morphology Ovalocytes Smear Tech's Comments ESR PT INR O2 Saturation ABG pH at Pt Temp ABG pCO2 at Pt Temp ABG pO2 at Pt Temp ABG HCO3 ABG Base Excess (Actual) VBG pH 7.52 H 7.48 H VBG pCO2 40 37 VBG pO2 53 41 VBG HCO3 33 H 28 H VBG O2 Saturation 83.0 63.0 VBG Base Excess 10.1 5.0 Sodium 141 Potassium 3.1 L D Chloride 104 Carbon Dioxide 26 Anion Gap 14 BUN 16 Creatinine 0.46 L Estim Creat Clear Calc 173.6 Estimated GFR > 60 POC Glucose Random Glucose 256 H Lactic Acid Lactic Acid F/U @ 2Hr Calcium 8.6 Phosphorus 2.2 L Magnesium 2.2 Total Bilirubin AST ALT Alkaline Phosphatase Total Creatine Kinase Troponin I High Sens C-Reactive Protein B-Natriuretic Peptide Total Protein Albumin 4.0 Triglycerides Beta HCG, Quant Nasal Screen MRSA (PCR) Nasal S. aureus Screen Nasal MRSA/S.aureus Interp Vancomycin Trough Random Vancomycin 12.6 L Urine Opiates Screen Ur Buprenorphine Scrn Ur Oxycodone Screen Urine Methadone Screen Urine Fentanyl Screen Ur Barbiturates Screen Ur Phencyclidine Scrn Ur Amphetamines Screen U Benzodiazepines Scrn Urine Cocaine Screen U Marijuana (THC) Screen SUKHJINDER Screen SUKHJINDER Titer SUKHJINDER Titer 2 SUKHJINDER Titer 3 SUKHJINDER Pattern SUKHJINDER Pattern 2 SUKHJINDER Pattern 3 Herpes Simplex Culture HSV I IgG Ab HSV II IgG Influenza Type A (PCR) Influenza Type B (PCR) RSV RNA Qual (PCR) SARS-CoV-2 RNA (RT-PCR) Ref Lab Test Result 01/13/25 01/13/25 01/13/25 07:57 11:59 17:02 WBC RBC Hgb Hct MCV MCH MCHC RDW Plt Count MPV Immature Gran % (Auto) Neut % (Auto) Lymph % (Auto) [place] % (Auto) Eos % (Auto) Baso % (Auto) Lymph # (Auto) [place] # (Auto) Eos # (Auto) Baso # (Auto) Abs Immat Gran (auto) Absolute Neuts (auto) Absolute Nucleated RBC Nucleated RBC % (auto) Neutrophils % (Manual) Band Neutrophils % Lymphocytes % (Manual) Monocytes % (Manual) Abs Neuts (Manual) Lymphocytes # (Manual) Monocytes # (Manual) Smudge Cells Toxic Vacuolation Platelet Estimate Plt Morphology Comment RBC Morphology Ovalocytes Smear Tech's Comments ESR PT INR O2 Saturation ABG pH at Pt Temp ABG pCO2 at Pt Temp ABG pO2 at Pt Temp ABG HCO3 ABG Base Excess (Actual) VBG pH VBG pCO2 VBG pO2 VBG HCO3 VBG O2 Saturation VBG Base Excess Sodium Potassium Chloride Carbon Dioxide Anion Gap BUN Creatinine Estim Creat Clear Calc Estimated GFR POC Glucose 247 H 218 H 171 H Random Glucose Lactic Acid Lactic Acid F/U @ 2Hr Calcium Phosphorus Magnesium Total Bilirubin AST ALT Alkaline Phosphatase Total Creatine Kinase Troponin I High Sens C-Reactive Protein B-Natriuretic Peptide Total Protein Albumin Triglycerides Beta HCG, Quant Nasal Screen MRSA (PCR) Nasal S. aureus Screen Nasal MRSA/S.aureus Interp Vancomycin Trough Random Vancomycin Urine Opiates Screen Ur Buprenorphine Scrn Ur Oxycodone Screen Urine Methadone Screen Urine Fentanyl Screen Ur Barbiturates Screen Ur Phencyclidine Scrn Ur Amphetamines Screen U Benzodiazepines Scrn Urine Cocaine Screen U Marijuana (THC) Screen SUKHJINDER Screen SUKHJINDER Titer SUKHJINDER Titer 2 SUKHJINDER Titer 3 SUKHJINDER Pattern SUKHJINDER Pattern 2 SUKHJINDER Pattern 3 Herpes Simplex Culture HSV I IgG Ab HSV II IgG Influenza Type A (PCR) Influenza Type B (PCR) RSV RNA Qual (PCR) SARS-CoV-2 RNA (RT-PCR) Ref Lab Test Result 01/13/25 01/13/25 01/13/25 19:20 20:49 23:33 WBC RBC Hgb Hct MCV MCH MCHC RDW Plt Count MPV Immature Gran % (Auto) Neut % (Auto) Lymph % (Auto) [place] % (Auto) Eos % (Auto) Baso % (Auto) Lymph # (Auto) [place] # (Auto) Eos # (Auto) Baso # (Auto) Abs Immat Gran (auto) Absolute Neuts (auto) Absolute Nucleated RBC Nucleated RBC % (auto) Neutrophils % (Manual) Band Neutrophils % Lymphocytes % (Manual) Monocytes % (Manual) Abs Neuts (Manual) Lymphocytes # (Manual) Monocytes # (Manual) Smudge Cells Toxic Vacuolation Platelet Estimate Plt Morphology Comment RBC Morphology Ovalocytes Smear Tech's Comments ESR PT INR O2 Saturation ABG pH at Pt Temp ABG pCO2 at Pt Temp ABG pO2 at Pt Temp ABG HCO3 ABG Base Excess (Actual) VBG pH VBG pCO2 VBG pO2 VBG HCO3 VBG O2 Saturation VBG Base Excess Sodium 143 Potassium 3.9 D Chloride 110 H Carbon Dioxide 24 Anion Gap 13 BUN 16 Creatinine 0.44 L Estim Creat Clear Calc 181.5 Estimated GFR > 60 POC Glucose 176 H Random Glucose 166 H Lactic Acid Lactic Acid F/U @ 2Hr Calcium 8.4 Phosphorus 1.8 L Magnesium 2.2 Total Bilirubin AST ALT Alkaline Phosphatase Total Creatine Kinase Troponin I High Sens C-Reactive Protein B-Natriuretic Peptide Total Protein Albumin Triglycerides Beta HCG, Quant Nasal Screen MRSA (PCR) Nasal S. aureus Screen Nasal MRSA/S.aureus Interp Vancomycin Trough Random Vancomycin 16.6 Urine Opiates Screen Ur Buprenorphine Scrn Ur Oxycodone Screen Urine Methadone Screen Urine Fentanyl Screen Ur Barbiturates Screen Ur Phencyclidine Scrn Ur Amphetamines Screen U Benzodiazepines Scrn Urine Cocaine Screen U Marijuana (THC) Screen SUKHJINDER Screen SUKHJINDER Titer SUKHJINDER Titer 2 SUKHJINDER Titer 3 SUKHJINDER Pattern SUKHJINDER Pattern 2 SUKHJINDER Pattern 3 Herpes Simplex Culture HSV I IgG Ab HSV II IgG Influenza Type A (PCR) Influenza Type B (PCR) RSV RNA Qual (PCR) SARS-CoV-2 RNA (RT-PCR) Ref Lab Test Result 01/14/25 01/14/25 01/14/25 05:37 05:39 11:39 WBC 11.2 H RBC 3.44 L Hgb 9.7 L Hct 28.7 L MCV 83.4 MCH 28.2 MCHC 33.8 RDW 15.4 Plt Count 316 MPV 8.7 L Immature Gran % (Auto) 0.6 H Neut % (Auto) 81.5 H Lymph % (Auto) 8.5 L [place] % (Auto) 9.3 Eos % (Auto) 0.0 Baso % (Auto) 0.1 Lymph # (Auto) 1.0 L [place] # (Auto) 1.1 Eos # (Auto) 0.0 Baso # (Auto) 0.0 Abs Immat Gran (auto) 0.07 H Absolute Neuts (auto) 9.1 H Absolute Nucleated RBC 0.000 Nucleated RBC % (auto) 0.0 Neutrophils % (Manual) Band Neutrophils % Lymphocytes % (Manual) Monocytes % (Manual) Abs Neuts (Manual) Lymphocytes # (Manual) Monocytes # (Manual) Smudge Cells Toxic Vacuolation Platelet Estimate Plt Morphology Comment RBC Morphology Ovalocytes Smear Tech's Comments ESR PT INR O2 Saturation ABG pH at Pt Temp ABG pCO2 at Pt Temp ABG pO2 at Pt Temp ABG HCO3 ABG Base Excess (Actual) VBG pH 7.41 VBG pCO2 39 VBG pO2 47 VBG HCO3 25 VBG O2 Saturation 72.0 VBG Base Excess 1.4 Sodium 144 Potassium 3.9 Chloride 112 H Carbon Dioxide 23 Anion Gap 13 BUN 20 H Creatinine 0.42 L Estim Creat Clear Calc 194.1 Estimated GFR > 60 POC Glucose 149 H Random Glucose 175 H Lactic Acid Lactic Acid F/U @ 2Hr Calcium 8.2 L Phosphorus 3.1 Magnesium 2.1 Total Bilirubin AST ALT Alkaline Phosphatase Total Creatine Kinase Troponin I High Sens C-Reactive Protein B-Natriuretic Peptide Total Protein Albumin 3.5 Triglycerides Beta HCG, Quant Nasal Screen MRSA (PCR) Nasal S. aureus Screen Nasal MRSA/S.aureus Interp Vancomycin Trough Random Vancomycin Urine Opiates Screen Ur Buprenorphine Scrn Ur Oxycodone Screen Urine Methadone Screen Urine Fentanyl Screen Ur Barbiturates Screen Ur Phencyclidine Scrn Ur Amphetamines Screen U Benzodiazepines Scrn Urine Cocaine Screen U Marijuana (THC) Screen SUKHJINDER Screen SUKHJINDER Titer SUKHJINDER Titer 2 SUKHJINDER Titer 3 SUKHJINDER Pattern SUKHJINDER Pattern 2 SUKHJINDER Pattern 3 Herpes Simplex Culture HSV I IgG Ab HSV II IgG Influenza Type A (PCR) Influenza Type B (PCR) RSV RNA Qual (PCR) SARS-CoV-2 RNA (RT-PCR) Ref Lab Test Result 01/14/25 01/14/25 01/14/25 18:21 20:47 23:54 WBC RBC Hgb Hct MCV MCH MCHC RDW Plt Count MPV Immature Gran % (Auto) Neut % (Auto) Lymph % (Auto) [place] % (Auto) Eos % (Auto) Baso % (Auto) Lymph # (Auto) [place] # (Auto) Eos # (Auto) Baso # (Auto) Abs Immat Gran (auto) Absolute Neuts (auto) Absolute Nucleated RBC Nucleated RBC % (auto) Neutrophils % (Manual) Band Neutrophils % Lymphocytes % (Manual) Monocytes % (Manual) Abs Neuts (Manual) Lymphocytes # (Manual) Monocytes # (Manual) Smudge Cells Toxic Vacuolation Platelet Estimate Plt Morphology Comment RBC Morphology Ovalocytes Smear Tech's Comments ESR PT INR O2 Saturation ABG pH at Pt Temp ABG pCO2 at Pt Temp ABG pO2 at Pt Temp ABG HCO3 ABG Base Excess (Actual) VBG pH VBG pCO2 VBG pO2 VBG HCO3 VBG O2 Saturation VBG Base Excess Sodium Potassium Chloride Carbon Dioxide Anion Gap BUN Creatinine Estim Creat Clear Calc Estimated GFR POC Glucose 139 H 155 H Random Glucose Lactic Acid Lactic Acid F/U @ 2Hr Calcium Phosphorus Magnesium Total Bilirubin AST ALT Alkaline Phosphatase Total Creatine Kinase Troponin I High Sens C-Reactive Protein B-Natriuretic Peptide Total Protein Albumin Triglycerides Beta HCG, Quant Nasal Screen MRSA (PCR) Nasal S. aureus Screen Nasal MRSA/S.aureus Interp Vancomycin Trough Random Vancomycin 19.3 Urine Opiates Screen Ur Buprenorphine Scrn Ur Oxycodone Screen Urine Methadone Screen Urine Fentanyl Screen Ur Barbiturates Screen Ur Phencyclidine Scrn Ur Amphetamines Screen U Benzodiazepines Scrn Urine Cocaine Screen U Marijuana (THC) Screen SUKHJINDER Screen SUKHJINDER Titer SUKHJINDER Titer 2 SUKHJINDER Titer 3 SUKHJINDER Pattern SUKHJINDER Pattern 2 SUKHJINDER Pattern 3 Herpes Simplex Culture HSV I IgG Ab HSV II IgG Influenza Type A (PCR) Influenza Type B (PCR) RSV RNA Qual (PCR) SARS-CoV-2 RNA (RT-PCR) Ref Lab Test Result 01/15/25 01/15/25 01/15/25 05:19 05:20 11:20 WBC 13.5 H RBC 3.57 L Hgb 9.8 L Hct 30.1 L MCV 84.3 MCH 27.5 MCHC 32.6 RDW 15.2 Plt Count 321 MPV 8.9 L Immature Gran % (Auto) 0.7 H Neut % (Auto) 69.0 Lymph % (Auto) 22.7 [place] % (Auto) 7.2 Eos % (Auto) 0.3 Baso % (Auto) 0.1 Lymph # (Auto) 3.1 [place] # (Auto) 1.0 Eos # (Auto) 0.0 Baso # (Auto) 0.0 Abs Immat Gran (auto) 0.10 H Absolute Neuts (auto) 9.3 H Absolute Nucleated RBC 0.000 Nucleated RBC % (auto) 0.0 Neutrophils % (Manual) Band Neutrophils % Lymphocytes % (Manual) Monocytes % (Manual) Abs Neuts (Manual) Lymphocytes # (Manual) Monocytes # (Manual) Smudge Cells Toxic Vacuolation Platelet Estimate Plt Morphology Comment RBC Morphology Ovalocytes Smear Tech's Comments ESR PT INR O2 Saturation ABG pH at Pt Temp ABG pCO2 at Pt Temp ABG pO2 at Pt Temp ABG HCO3 ABG Base Excess (Actual) VBG pH 7.48 H VBG pCO2 35 VBG pO2 43 VBG HCO3 26 VBG O2 Saturation 68.0 VBG Base Excess 3.5 Sodium 144 Potassium 3.5 Chloride 111 H Carbon Dioxide 25 Anion Gap 12 BUN 24 H Creatinine 0.44 L Estim Creat Clear Calc 186.8 Estimated GFR > 60 POC Glucose 204 H Random Glucose 155 H Lactic Acid Lactic Acid F/U @ 2Hr Calcium 8.0 L Phosphorus 2.2 L Magnesium 2.1 Total Bilirubin AST ALT Alkaline Phosphatase Total Creatine Kinase Troponin I High Sens C-Reactive Protein B-Natriuretic Peptide Total Protein Albumin 3.2 L Triglycerides Beta HCG, Quant Nasal Screen MRSA (PCR) Nasal S. aureus Screen Nasal MRSA/S.aureus Interp Vancomycin Trough Random Vancomycin Urine Opiates Screen Ur Buprenorphine Scrn Ur Oxycodone Screen Urine Methadone Screen Urine Fentanyl Screen Ur Barbiturates Screen Ur Phencyclidine Scrn Ur Amphetamines Screen U Benzodiazepines Scrn Urine Cocaine Screen U Marijuana (THC) Screen SUKHJINDER Screen SUKHJINDER Titer SUKHJINDER Titer 2 SUKHJINDER Titer 3 SUKHJINDER Pattern SUKHJINDER Pattern 2 SUKHJINDER Pattern 3 Herpes Simplex Culture HSV I IgG Ab HSV II IgG Influenza Type A (PCR) Influenza Type B (PCR) RSV RNA Qual (PCR) SARS-CoV-2 RNA (RT-PCR) Ref Lab Test Result 01/15/25 01/15/25 01/15/25 17:17 20:53 23:24 WBC 13.4 H RBC 3.56 L Hgb 10.0 L Hct 29.4 L MCV 82.6 MCH 28.1 MCHC 34.0 RDW 15.0 Plt Count 309 MPV 8.7 L Immature Gran % (Auto) 1.1 H Neut % (Auto) 76.4 H Lymph % (Auto) 15.4 L [place] % (Auto) 6.9 Eos % (Auto) 0.1 Baso % (Auto) 0.1 Lymph # (Auto) 2.1 [place] # (Auto) 0.9 Eos # (Auto) 0.0 Baso # (Auto) 0.0 Abs Immat Gran (auto) 0.15 H Absolute Neuts (auto) 10.2 H Absolute Nucleated RBC 0.000 Nucleated RBC % (auto) 0.0 Neutrophils % (Manual) Band Neutrophils % Lymphocytes % (Manual) Monocytes % (Manual) Abs Neuts (Manual) Lymphocytes # (Manual) Monocytes # (Manual) Smudge Cells Toxic Vacuolation Platelet Estimate Plt Morphology Comment RBC Morphology Ovalocytes Smear Tech's Comments ESR PT INR O2 Saturation ABG pH at Pt Temp ABG pCO2 at Pt Temp ABG pO2 at Pt Temp ABG HCO3 ABG Base Excess (Actual) VBG pH VBG pCO2 VBG pO2 VBG HCO3 VBG O2 Saturation VBG Base Excess Sodium Potassium Chloride Carbon Dioxide Anion Gap BUN Creatinine Estim Creat Clear Calc Estimated GFR POC Glucose 163 H 142 H Random Glucose Lactic Acid Lactic Acid F/U @ 2Hr Calcium Phosphorus 3.0 Magnesium 2.2 Total Bilirubin AST ALT Alkaline Phosphatase Total Creatine Kinase Troponin I High Sens C-Reactive Protein B-Natriuretic Peptide Total Protein Albumin Triglycerides Beta HCG, Quant Nasal Screen MRSA (PCR) Nasal S. aureus Screen Nasal MRSA/S.aureus Interp Vancomycin Trough Random Vancomycin 14.5 L Urine Opiates Screen Ur Buprenorphine Scrn Ur Oxycodone Screen Urine Methadone Screen Urine Fentanyl Screen Ur Barbiturates Screen Ur Phencyclidine Scrn Ur Amphetamines Screen U Benzodiazepines Scrn Urine Cocaine Screen U Marijuana (THC) Screen SUKHJINDER Screen SUKHJINDER Titer SUKHJINDER Titer 2 SUKHJINDER Titer 3 SUKHJINDER Pattern SUKHJINDER Pattern 2 SUKHJINDER Pattern 3 Herpes Simplex Culture HSV I IgG Ab HSV II IgG Influenza Type A (PCR) Influenza Type B (PCR) RSV RNA Qual (PCR) SARS-CoV-2 RNA (RT-PCR) Ref Lab Test Result 01/16/25 01/16/25 01/16/25 04:50 04:52 11:14 WBC 15.9 H RBC 3.53 L Hgb 9.6 L Hct 29.7 L MCV 84.1 MCH 27.2 MCHC 32.3 RDW 15.2 Plt Count 337 MPV 9.2 L Immature Gran % (Auto) 1.2 H Neut % (Auto) 68.2 Lymph % (Auto) 22.4 [place] % (Auto) 7.2 Eos % (Auto) 0.8 Baso % (Auto) 0.2 Lymph # (Auto) 3.6 [place] # (Auto) 1.1 Eos # (Auto) 0.1 Baso # (Auto) 0.0 Abs Immat Gran (auto) 0.19 H Absolute Neuts (auto) 10.9 H Absolute Nucleated RBC 0.000 Nucleated RBC % (auto) 0.0 Neutrophils % (Manual) Band Neutrophils % Lymphocytes % (Manual) Monocytes % (Manual) Abs Neuts (Manual) Lymphocytes # (Manual) Monocytes # (Manual) Smudge Cells Toxic Vacuolation Platelet Estimate Plt Morphology Comment RBC Morphology Ovalocytes Smear Tech's Comments ESR PT INR O2 Saturation ABG pH at Pt Temp ABG pCO2 at Pt Temp ABG pO2 at Pt Temp ABG HCO3 ABG Base Excess (Actual) VBG pH 7.44 H VBG pCO2 46 VBG pO2 44 VBG HCO3 32 H VBG O2 Saturation 63.0 VBG Base Excess 7.2 Sodium 145 Potassium 4.0 Chloride 109 H Carbon Dioxide 28 Anion Gap 12 BUN 20 H Creatinine 0.41 L Estim Creat Clear Calc 200.5 Estimated GFR > 60 POC Glucose 218 H Random Glucose 151 H Lactic Acid Lactic Acid F/U @ 2Hr Calcium 8.1 L Phosphorus 3.4 Magnesium 2.2 Total Bilirubin 0.2 AST 20 ALT 21 Alkaline Phosphatase 62 Total Creatine Kinase Troponin I High Sens C-Reactive Protein B-Natriuretic Peptide Total Protein 5.8 L Albumin 3.2 L Triglycerides Beta HCG, Quant Nasal Screen MRSA (PCR) Nasal S. aureus Screen Nasal MRSA/S.aureus Interp Vancomycin Trough Random Vancomycin Urine Opiates Screen Ur Buprenorphine Scrn Ur Oxycodone Screen Urine Methadone Screen Urine Fentanyl Screen Ur Barbiturates Screen Ur Phencyclidine Scrn Ur Amphetamines Screen U Benzodiazepines Scrn Urine Cocaine Screen U Marijuana (THC) Screen SUKHJINDER Screen SUKHJINDER Titer SUKHJINDER Titer 2 SUKHJINDER Titer 3 SUKHJINDER Pattern SUKHJINDER Pattern 2 SUKHJINDER Pattern 3 Herpes Simplex Culture HSV I IgG Ab HSV II IgG Influenza Type A (PCR) Influenza Type B (PCR) RSV RNA Qual (PCR) SARS-CoV-2 RNA (RT-PCR) Ref Lab Test Result 01/16/25 01/16/25 01/16/25 11:28 17:18 20:01 WBC RBC Hgb Hct MCV MCH MCHC RDW Plt Count MPV Immature Gran % (Auto) Neut % (Auto) Lymph % (Auto) [place] % (Auto) Eos % (Auto) Baso % (Auto) Lymph # (Auto) [place] # (Auto) Eos # (Auto) Baso # (Auto) Abs Immat Gran (auto) Absolute Neuts (auto) Absolute Nucleated RBC Nucleated RBC % (auto) Neutrophils % (Manual) Band Neutrophils % Lymphocytes % (Manual) Monocytes % (Manual) Abs Neuts (Manual) Lymphocytes # (Manual) Monocytes # (Manual) Smudge Cells Toxic Vacuolation Platelet Estimate Plt Morphology Comment RBC Morphology Ovalocytes Smear Tech's Comments ESR PT INR O2 Saturation ABG pH at Pt Temp ABG pCO2 at Pt Temp ABG pO2 at Pt Temp ABG HCO3 ABG Base Excess (Actual) VBG pH VBG pCO2 VBG pO2 VBG HCO3 VBG O2 Saturation VBG Base Excess Sodium Potassium Chloride Carbon Dioxide Anion Gap BUN Creatinine Estim Creat Clear Calc Estimated GFR POC Glucose 145 H Random Glucose Lactic Acid Lactic Acid F/U @ 2Hr Calcium Phosphorus Magnesium Total Bilirubin AST ALT Alkaline Phosphatase Total Creatine Kinase Troponin I High Sens C-Reactive Protein B-Natriuretic Peptide Total Protein Albumin Triglycerides Beta HCG, Quant Nasal Screen MRSA (PCR) NEGATIVE Nasal S. aureus Screen NEGATIVE Nasal MRSA/S.aureus Interp SEE NOTE Vancomycin Trough 15.1 Random Vancomycin Urine Opiates Screen Ur Buprenorphine Scrn Ur Oxycodone Screen Urine Methadone Screen Urine Fentanyl Screen Ur Barbiturates Screen Ur Phencyclidine Scrn Ur Amphetamines Screen U Benzodiazepines Scrn Urine Cocaine Screen U Marijuana (THC) Screen SUKHJINDER Screen SUKHJINDER Titer SUKHJINDER Titer 2 SUKHJINDER Titer 3 SUKHJINDER Pattern SUKHJINDER Pattern 2 SUKHJINDER Pattern 3 Herpes Simplex Culture HSV I IgG Ab HSV II IgG Influenza Type A (PCR) Influenza Type B (PCR) RSV RNA Qual (PCR) SARS-CoV-2 RNA (RT-PCR) Ref Lab Test Result 01/17/25 01/17/25 01/17/25 00:22 05:30 05:31 WBC 17.6 H RBC 3.31 L Hgb 9.2 L Hct 27.8 L MCV 84.0 MCH 27.8 MCHC 33.1 RDW 15.3 Plt Count 448 H D MPV 9.1 L Immature Gran % (Auto) 1.2 H Neut % (Auto) 70.8 Lymph % (Auto) 18.9 L [place] % (Auto) 7.0 Eos % (Auto) 2.0 Baso % (Auto) 0.1 Lymph # (Auto) 3.3 [place] # (Auto) 1.2 Eos # (Auto) 0.4 Baso # (Auto) 0.0 Abs Immat Gran (auto) 0.21 H Absolute Neuts (auto) 12.5 H Absolute Nucleated RBC 0.000 Nucleated RBC % (auto) 0.0 Neutrophils % (Manual) Band Neutrophils % Lymphocytes % (Manual) Monocytes % (Manual) Abs Neuts (Manual) Lymphocytes # (Manual) Monocytes # (Manual) Smudge Cells Toxic Vacuolation Platelet Estimate Plt Morphology Comment RBC Morphology Ovalocytes Smear Tech's Comments ESR PT INR O2 Saturation ABG pH at Pt Temp ABG pCO2 at Pt Temp ABG pO2 at Pt Temp ABG HCO3 ABG Base Excess (Actual) VBG pH 7.48 H VBG pCO2 43 VBG pO2 48 VBG HCO3 32 H VBG O2 Saturation 73.0 VBG Base Excess 8.2 Sodium 143 Potassium 3.9 Chloride 105 Carbon Dioxide 28 Anion Gap 14 BUN 18 H Creatinine 0.40 L Estim Creat Clear Calc 210.7 Estimated GFR > 60 POC Glucose 149 H Random Glucose 175 H Lactic Acid Lactic Acid F/U @ 2Hr Calcium 8.3 L Phosphorus 3.5 Magnesium 2.1 Total Bilirubin 0.3 AST 27 ALT 22 Alkaline Phosphatase 71 Total Creatine Kinase Troponin I High Sens C-Reactive Protein B-Natriuretic Peptide Total Protein 5.8 L Albumin 3.3 L Triglycerides Beta HCG, Quant Nasal Screen MRSA (PCR) Nasal S. aureus Screen Nasal MRSA/S.aureus Interp Vancomycin Trough Random Vancomycin Urine Opiates Screen Ur Buprenorphine Scrn Ur Oxycodone Screen Urine Methadone Screen Urine Fentanyl Screen Ur Barbiturates Screen Ur Phencyclidine Scrn Ur Amphetamines Screen U Benzodiazepines Scrn Urine Cocaine Screen U Marijuana (THC) Screen SUKHJINDER Screen SKUHJINDER Titer SUKHJINDER Titer 2 SUKHJINDER Titer 3 SUKHJINDER Pattern SUKHJINDER Pattern 2 SUKHJINDER Pattern 3 Herpes Simplex Culture HSV I IgG Ab HSV II IgG Influenza Type A (PCR) Influenza Type B (PCR) RSV RNA Qual (PCR) SARS-CoV-2 RNA (RT-PCR) Ref Lab Test Result 01/17/25 01/17/25 01/18/25 06:01 18:10 00:08 WBC RBC Hgb Hct MCV MCH MCHC RDW Plt Count MPV Immature Gran % (Auto) Neut % (Auto) Lymph % (Auto) [place] % (Auto) Eos % (Auto) Baso % (Auto) Lymph # (Auto) [place] # (Auto) Eos # (Auto) Baso # (Auto) Abs Immat Gran (auto) Absolute Neuts (auto) Absolute Nucleated RBC Nucleated RBC % (auto) Neutrophils % (Manual) Band Neutrophils % Lymphocytes % (Manual) Monocytes % (Manual) Abs Neuts (Manual) Lymphocytes # (Manual) Monocytes # (Manual) Smudge Cells Toxic Vacuolation Platelet Estimate Plt Morphology Comment RBC Morphology Ovalocytes Smear Tech's Comments ESR PT INR O2 Saturation ABG pH at Pt Temp ABG pCO2 at Pt Temp ABG pO2 at Pt Temp ABG HCO3 ABG Base Excess (Actual) VBG pH VBG pCO2 VBG pO2 VBG HCO3 VBG O2 Saturation VBG Base Excess Sodium Potassium Chloride Carbon Dioxide Anion Gap BUN Creatinine Estim Creat Clear Calc Estimated GFR POC Glucose 181 H 134 H 112 Random Glucose Lactic Acid Lactic Acid F/U @ 2Hr Calcium Phosphorus Magnesium Total Bilirubin AST ALT Alkaline Phosphatase Total Creatine Kinase Troponin I High Sens C-Reactive Protein B-Natriuretic Peptide Total Protein Albumin Triglycerides Beta HCG, Quant Nasal Screen MRSA (PCR) Nasal S. aureus Screen Nasal MRSA/S.aureus Interp Vancomycin Trough Random Vancomycin Urine Opiates Screen Ur Buprenorphine Scrn Ur Oxycodone Screen Urine Methadone Screen Urine Fentanyl Screen Ur Barbiturates Screen Ur Phencyclidine Scrn Ur Amphetamines Screen U Benzodiazepines Scrn Urine Cocaine Screen U Marijuana (THC) Screen SUKHJINDER Screen SUKHJINDER Titer SUKHJINDER Titer 2 SUKHJINDER Titer 3 SUKHJINDER Pattern SUKHJINDER Pattern 2 SUKHJINDER Pattern 3 Herpes Simplex Culture HSV I IgG Ab HSV II IgG Influenza Type A (PCR) Influenza Type B (PCR) RSV RNA Qual (PCR) SARS-CoV-2 RNA (RT-PCR) Ref Lab Test Result 01/18/25 01/18/25 01/18/25 04:05 04:20 05:33 WBC 12.8 H RBC 3.37 L Hgb 9.4 L Hct 27.9 L MCV 82.8 MCH 27.9 MCHC 33.7 RDW 15.5 Plt Count 322 D MPV 8.8 L Immature Gran % (Auto) 1.2 H Neut % (Auto) 73.0 Lymph % (Auto) 17.1 L [place] % (Auto) 6.6 Eos % (Auto) 2.0 Baso % (Auto) 0.1 Lymph # (Auto) 2.2 [place] # (Auto) 0.8 Eos # (Auto) 0.3 Baso # (Auto) 0.0 Abs Immat Gran (auto) 0.15 H Absolute Neuts (auto) 9.4 H Absolute Nucleated RBC 0.000 Nucleated RBC % (auto) 0.0 Neutrophils % (Manual) Band Neutrophils % Lymphocytes % (Manual) Monocytes % (Manual) Abs Neuts (Manual) Lymphocytes # (Manual) Monocytes # (Manual) Smudge Cells Toxic Vacuolation Platelet Estimate Plt Morphology Comment RBC Morphology Ovalocytes Smear Tech's Comments ESR PT INR O2 Saturation ABG pH at Pt Temp ABG pCO2 at Pt Temp ABG pO2 at Pt Temp ABG HCO3 ABG Base Excess (Actual) VBG pH 7.50 H VBG pCO2 42 VBG pO2 53 VBG HCO3 33 H VBG O2 Saturation 79.0 VBG Base Excess 9.9 Sodium 143 Potassium 3.8 Chloride 104 Carbon Dioxide 28 Anion Gap 15 BUN 19 H Creatinine 0.41 L Estim Creat Clear Calc 205.6 Estimated GFR > 60 POC Glucose 142 H Random Glucose 151 H Lactic Acid Lactic Acid F/U @ 2Hr Calcium 8.5 Phosphorus 3.5 Magnesium 2.2 Total Bilirubin 0.3 AST 26 ALT 29 Alkaline Phosphatase 73 Total Creatine Kinase Troponin I High Sens C-Reactive Protein B-Natriuretic Peptide Total Protein 6.2 L Albumin 3.4 L Triglycerides Beta HCG, Quant Nasal Screen MRSA (PCR) Nasal S. aureus Screen Nasal MRSA/S.aureus Interp Vancomycin Trough Random Vancomycin Urine Opiates Screen Ur Buprenorphine Scrn Ur Oxycodone Screen Urine Methadone Screen Urine Fentanyl Screen Ur Barbiturates Screen Ur Phencyclidine Scrn Ur Amphetamines Screen U Benzodiazepines Scrn Urine Cocaine Screen U Marijuana (THC) Screen SUKHJINDER Screen SUKHJINDER Titer SUKHJINDER Titer 2 SUKHJINDER Titer 3 SUKHJINDER Pattern SUKHJINDER Pattern 2 SUKHJINDER Pattern 3 Herpes Simplex Culture HSV I IgG Ab HSV II IgG Influenza Type A (PCR) Influenza Type B (PCR) RSV RNA Qual (PCR) SARS-CoV-2 RNA (RT-PCR) Ref Lab Test Result 01/18/25 01/18/25 01/18/25 11:26 18:41 23:57 WBC RBC Hgb Hct MCV MCH MCHC RDW Plt Count MPV Immature Gran % (Auto) Neut % (Auto) Lymph % (Auto) [place] % (Auto) Eos % (Auto) Baso % (Auto) Lymph # (Auto) [place] # (Auto) Eos # (Auto) Baso # (Auto) Abs Immat Gran (auto) Absolute Neuts (auto) Absolute Nucleated RBC Nucleated RBC % (auto) Neutrophils % (Manual) Band Neutrophils % Lymphocytes % (Manual) Monocytes % (Manual) Abs Neuts (Manual) Lymphocytes # (Manual) Monocytes # (Manual) Smudge Cells Toxic Vacuolation Platelet Estimate Plt Morphology Comment RBC Morphology Ovalocytes Smear Tech's Comments ESR PT INR O2 Saturation ABG pH at Pt Temp ABG pCO2 at Pt Temp ABG pO2 at Pt Temp ABG HCO3 ABG Base Excess (Actual) VBG pH VBG pCO2 VBG pO2 VBG HCO3 VBG O2 Saturation VBG Base Excess Sodium Potassium Chloride Carbon Dioxide Anion Gap BUN Creatinine Estim Creat Clear Calc Estimated GFR POC Glucose 224 H 161 H 160 H Random Glucose Lactic Acid Lactic Acid F/U @ 2Hr Calcium Phosphorus Magnesium Total Bilirubin AST ALT Alkaline Phosphatase Total Creatine Kinase Troponin I High Sens C-Reactive Protein B-Natriuretic Peptide Total Protein Albumin Triglycerides Beta HCG, Quant Nasal Screen MRSA (PCR) Nasal S. aureus Screen Nasal MRSA/S.aureus Interp Vancomycin Trough Random Vancomycin Urine Opiates Screen Ur Buprenorphine Scrn Ur Oxycodone Screen Urine Methadone Screen Urine Fentanyl Screen Ur Barbiturates Screen Ur Phencyclidine Scrn Ur Amphetamines Screen U Benzodiazepines Scrn Urine Cocaine Screen U Marijuana (THC) Screen SUKHJINDER Screen SUKHJINDER Titer SUKHJINDER Titer 2 SUKHJINDER Titer 3 SUKHJINDER Pattern SUKHJINDER Pattern 2 SUKHJINDER Pattern 3 Herpes Simplex Culture HSV I IgG Ab HSV II IgG Influenza Type A (PCR) Influenza Type B (PCR) RSV RNA Qual (PCR) SARS-CoV-2 RNA (RT-PCR) Ref Lab Test Result 01/19/25 01/19/25 01/19/25 04:30 04:43 11:21 WBC 10.0 RBC 3.13 L Hgb 8.9 L Hct 25.6 L MCV 81.8 MCH 28.4 MCHC 34.8 RDW 15.2 Plt Count 286 MPV 8.8 L Immature Gran % (Auto) 1.2 H Neut % (Auto) 91.5 H Lymph % (Auto) 5.2 L [place] % (Auto) 2.0 Eos % (Auto) 0.0 Baso % (Auto) 0.1 Lymph # (Auto) 0.5 L [place] # (Auto) 0.2 Eos # (Auto) 0.0 Baso # (Auto) 0.0 Abs Immat Gran (auto) 0.12 H Absolute Neuts (auto) 9.2 H Absolute Nucleated RBC 0.000 Nucleated RBC % (auto) 0.0 Neutrophils % (Manual) Band Neutrophils % Lymphocytes % (Manual) Monocytes % (Manual) Abs Neuts (Manual) Lymphocytes # (Manual) Monocytes # (Manual) Smudge Cells Toxic Vacuolation Platelet Estimate Plt Morphology Comment RBC Morphology Ovalocytes Smear Tech's Comments VERIFIED ESR PT INR O2 Saturation ABG pH at Pt Temp ABG pCO2 at Pt Temp ABG pO2 at Pt Temp ABG HCO3 ABG Base Excess (Actual) VBG pH 7.53 H VBG pCO2 39 VBG pO2 44 VBG HCO3 33 H VBG O2 Saturation 69.0 VBG Base Excess 9.8 Sodium 139 Potassium 4.3 Chloride 104 Carbon Dioxide 28 Anion Gap 11 L BUN 18 H Creatinine 0.36 L Estim Creat Clear Calc 226.5 Estimated GFR > 60 POC Glucose Random Glucose 189 H Lactic Acid Lactic Acid F/U @ 2Hr Calcium 8.4 Phosphorus 3.1 Magnesium 2.3 Total Bilirubin 0.3 AST 22 ALT 33 H Alkaline Phosphatase 65 Total Creatine Kinase Troponin I High Sens C-Reactive Protein B-Natriuretic Peptide Total Protein 6.1 L Albumin 3.4 L Triglycerides Beta HCG, Quant Nasal Screen MRSA (PCR) Nasal S. aureus Screen Nasal MRSA/S.aureus Interp Vancomycin Trough Random Vancomycin Urine Opiates Screen Ur Buprenorphine Scrn Ur Oxycodone Screen Urine Methadone Screen Urine Fentanyl Screen Ur Barbiturates Screen Ur Phencyclidine Scrn Ur Amphetamines Screen U Benzodiazepines Scrn Urine Cocaine Screen U Marijuana (THC) Screen SUKHJINDER Screen SUKHJINDER Titer SUKHJINDER Titer 2 SUKHJINDER Titer 3 SUKHJINDER Pattern SUKHJINDER Pattern 2 SUKHJINDER Pattern 3 Herpes Simplex Culture HSV I IgG Ab 12.30 H HSV II IgG 22.00 H Influenza Type A (PCR) Influenza Type B (PCR) RSV RNA Qual (PCR) SARS-CoV-2 RNA (RT-PCR) Ref Lab Test Result 01/19/25 01/19/25 01/19/25 12:41 15:18 17:21 WBC RBC Hgb Hct MCV MCH MCHC RDW Plt Count MPV Immature Gran % (Auto) Neut % (Auto) Lymph % (Auto) [place] % (Auto) Eos % (Auto) Baso % (Auto) Lymph # (Auto) [place] # (Auto) Eos # (Auto) Baso # (Auto) Abs Immat Gran (auto) Absolute Neuts (auto) Absolute Nucleated RBC Nucleated RBC % (auto) Neutrophils % (Manual) Band Neutrophils % Lymphocytes % (Manual) Monocytes % (Manual) Abs Neuts (Manual) Lymphocytes # (Manual) Monocytes # (Manual) Smudge Cells Toxic Vacuolation Platelet Estimate Plt Morphology Comment RBC Morphology Ovalocytes Smear Tech's Comments ESR PT INR O2 Saturation ABG pH at Pt Temp ABG pCO2 at Pt Temp ABG pO2 at Pt Temp ABG HCO3 ABG Base Excess (Actual) VBG pH VBG pCO2 VBG pO2 VBG HCO3 VBG O2 Saturation VBG Base Excess Sodium Potassium Chloride Carbon Dioxide Anion Gap BUN Creatinine Estim Creat Clear Calc Estimated GFR POC Glucose 170 H 145 H Random Glucose Lactic Acid Lactic Acid F/U @ 2Hr Calcium Phosphorus Magnesium Total Bilirubin AST ALT Alkaline Phosphatase Total Creatine Kinase Troponin I High Sens C-Reactive Protein B-Natriuretic Peptide Total Protein Albumin Triglycerides Beta HCG, Quant Nasal Screen MRSA (PCR) Nasal S. aureus Screen Nasal MRSA/S.aureus Interp Vancomycin Trough Random Vancomycin Urine Opiates Screen Ur Buprenorphine Scrn Ur Oxycodone Screen Urine Methadone Screen Urine Fentanyl Screen Ur Barbiturates Screen Ur Phencyclidine Scrn Ur Amphetamines Screen U Benzodiazepines Scrn Urine Cocaine Screen U Marijuana (THC) Screen SUKHJINDER Screen SUKHJINDER Titer SUKHJINDER Titer 2 SUKHJINDER Titer 3 SUKHJINDER Pattern SUKHJINDER Pattern 2 SUKHJINDER Pattern 3 Herpes Simplex Culture SEE NOTE A HSV I IgG Ab HSV II IgG Influenza Type A (PCR) Influenza Type B (PCR) RSV RNA Qual (PCR) SARS-CoV-2 RNA (RT-PCR) Ref Lab Test Result 01/19/25 01/20/25 01/20/25 23:44 04:45 04:46 WBC 11.4 H RBC 3.54 L Hgb 10.1 L Hct 29.4 L MCV 83.1 MCH 28.5 MCHC 34.4 RDW 15.3 Plt Count 319 MPV 8.7 L Immature Gran % (Auto) 0.9 H Neut % (Auto) 90.8 H Lymph % (Auto) 4.8 L [place] % (Auto) 3.2 Eos % (Auto) 0.1 Baso % (Auto) 0.2 Lymph # (Auto) 0.5 L [place] # (Auto) 0.4 Eos # (Auto) 0.0 Baso # (Auto) 0.0 Abs Immat Gran (auto) 0.10 H Absolute Neuts (auto) 10.3 H Absolute Nucleated RBC 0.000 Nucleated RBC % (auto) 0.0 Neutrophils % (Manual) Band Neutrophils % Lymphocytes % (Manual) Monocytes % (Manual) Abs Neuts (Manual) Lymphocytes # (Manual) Monocytes # (Manual) Smudge Cells Toxic Vacuolation Platelet Estimate Plt Morphology Comment RBC Morphology Ovalocytes Smear Tech's Comments VERIFIED ESR PT INR O2 Saturation ABG pH at Pt Temp ABG pCO2 at Pt Temp ABG pO2 at Pt Temp ABG HCO3 ABG Base Excess (Actual) VBG pH 7.45 H VBG pCO2 45 VBG pO2 83 VBG HCO3 31 H VBG O2 Saturation 96.0 VBG Base Excess 7.2 Sodium 144 Potassium 4.1 Chloride 108 Carbon Dioxide 27 Anion Gap 13 BUN 18 H Creatinine 0.38 L Estim Creat Clear Calc 214.6 Estimated GFR > 60 POC Glucose 115 Random Glucose 134 H Lactic Acid Lactic Acid F/U @ 2Hr Calcium 9.1 D Phosphorus 4.0 Magnesium 2.3 Total Bilirubin 0.4 AST 39 H ALT 51 H Alkaline Phosphatase 67 Total Creatine Kinase Troponin I High Sens C-Reactive Protein B-Natriuretic Peptide Total Protein 6.8 Albumin 4.2 Triglycerides Beta HCG, Quant Nasal Screen MRSA (PCR) Nasal S. aureus Screen Nasal MRSA/S.aureus Interp Vancomycin Trough Random Vancomycin Urine Opiates Screen Ur Buprenorphine Scrn Ur Oxycodone Screen Urine Methadone Screen Urine Fentanyl Screen Ur Barbiturates Screen Ur Phencyclidine Scrn Ur Amphetamines Screen U Benzodiazepines Scrn Urine Cocaine Screen U Marijuana (THC) Screen SUKHJINDER Screen SUKHJINDER Titer SUKHJINDER Titer 2 SUKHJINDER Titer 3 SUKHJINDER Pattern SUKHJINDER Pattern 2 SUKHJINDER Pattern 3 Herpes Simplex Culture HSV I IgG Ab HSV II IgG Influenza Type A (PCR) Influenza Type B (PCR) RSV RNA Qual (PCR) SARS-CoV-2 RNA (RT-PCR) Ref Lab Test Result 01/20/25 01/20/25 01/20/25 04:48 11:14 17:40 WBC RBC Hgb Hct MCV MCH MCHC RDW Plt Count MPV Immature Gran % (Auto) Neut % (Auto) Lymph % (Auto) [place] % (Auto) Eos % (Auto) Baso % (Auto) Lymph # (Auto) [place] # (Auto) Eos # (Auto) Baso # (Auto) Abs Immat Gran (auto) Absolute Neuts (auto) Absolute Nucleated RBC Nucleated RBC % (auto) Neutrophils % (Manual) Band Neutrophils % Lymphocytes % (Manual) Monocytes % (Manual) Abs Neuts (Manual) Lymphocytes # (Manual) Monocytes # (Manual) Smudge Cells Toxic Vacuolation Platelet Estimate Plt Morphology Comment RBC Morphology Ovalocytes Smear Tech's Comments ESR PT INR O2 Saturation ABG pH at Pt Temp ABG pCO2 at Pt Temp ABG pO2 at Pt Temp ABG HCO3 ABG Base Excess (Actual) VBG pH VBG pCO2 VBG pO2 VBG HCO3 VBG O2 Saturation VBG Base Excess Sodium Potassium Chloride Carbon Dioxide Anion Gap BUN Creatinine Estim Creat Clear Calc Estimated GFR POC Glucose 124 H 134 H 139 H Random Glucose Lactic Acid Lactic Acid F/U @ 2Hr Calcium Phosphorus Magnesium Total Bilirubin AST ALT Alkaline Phosphatase Total Creatine Kinase Troponin I High Sens C-Reactive Protein B-Natriuretic Peptide Total Protein Albumin Triglycerides Beta HCG, Quant Nasal Screen MRSA (PCR) Nasal S. aureus Screen Nasal MRSA/S.aureus Interp Vancomycin Trough Random Vancomycin Urine Opiates Screen Ur Buprenorphine Scrn Ur Oxycodone Screen Urine Methadone Screen Urine Fentanyl Screen Ur Barbiturates Screen Ur Phencyclidine Scrn Ur Amphetamines Screen U Benzodiazepines Scrn Urine Cocaine Screen U Marijuana (THC) Screen SUKHJINDER Screen SUKHJINDER Titer SUKHJINDER Titer 2 SUKHJINDER Titer 3 SUKHJINDER Pattern SUKHJINDER Pattern 2 SUKHJINDER Pattern 3 Herpes Simplex Culture HSV I IgG Ab HSV II IgG Influenza Type A (PCR) Influenza Type B (PCR) RSV RNA Qual (PCR) SARS-CoV-2 RNA (RT-PCR) Ref Lab Test Result 01/20/25 01/21/25 01/21/25 23:15 04:50 04:57 WBC 9.9 RBC 3.50 L Hgb 9.8 L Hct 29.8 L MCV 85.1 MCH 28.0 MCHC 32.9 RDW 15.2 Plt Count 321 MPV 8.9 L Immature Gran % (Auto) 0.8 H Neut % (Auto) 91.3 H Lymph % (Auto) 4.5 L [place] % (Auto) 3.2 Eos % (Auto) 0.0 Baso % (Auto) 0.2 Lymph # (Auto) 0.4 L [place] # (Auto) 0.3 Eos # (Auto) 0.0 Baso # (Auto) 0.0 Abs Immat Gran (auto) 0.08 H Absolute Neuts (auto) 9.0 H Absolute Nucleated RBC 0.000 Nucleated RBC % (auto) 0.0 Neutrophils % (Manual) Band Neutrophils % Lymphocytes % (Manual) Monocytes % (Manual) Abs Neuts (Manual) Lymphocytes # (Manual) Monocytes # (Manual) Smudge Cells Toxic Vacuolation Platelet Estimate Plt Morphology Comment RBC Morphology Ovalocytes Smear Tech's Comments VERIFIED ESR PT INR O2 Saturation ABG pH at Pt Temp ABG pCO2 at Pt Temp ABG pO2 at Pt Temp ABG HCO3 ABG Base Excess (Actual) VBG pH 7.45 H VBG pCO2 53 VBG pO2 49 VBG HCO3 37 H VBG O2 Saturation 76.0 VBG Base Excess 12.1 Sodium 143 Potassium 4.0 Chloride 105 Carbon Dioxide 30 H Anion Gap 12 BUN 22 H Creatinine 0.34 L Estim Creat Clear Calc 239.6 Estimated GFR > 60 POC Glucose 117 H Random Glucose 131 H Lactic Acid Lactic Acid F/U @ 2Hr Calcium 8.8 Phosphorus 3.5 Magnesium 2.2 Total Bilirubin 0.4 AST 24 ALT 53 H Alkaline Phosphatase 60 Total Creatine Kinase Troponin I High Sens C-Reactive Protein B-Natriuretic Peptide Total Protein 6.2 L Albumin 3.8 Triglycerides Beta HCG, Quant Nasal Screen MRSA (PCR) Nasal S. aureus Screen Nasal MRSA/S.aureus Interp Vancomycin Trough Random Vancomycin Urine Opiates Screen Ur Buprenorphine Scrn Ur Oxycodone Screen Urine Methadone Screen Urine Fentanyl Screen Ur Barbiturates Screen Ur Phencyclidine Scrn Ur Amphetamines Screen U Benzodiazepines Scrn Urine Cocaine Screen U Marijuana (THC) Screen SUKHJINDER Screen SUKHJINDER Titer SUKHJINDER Titer 2 SUKHJINDER Titer 3 SUKHJINDER Pattern SUKHJINDER Pattern 2 SUKHJINDER Pattern 3 Herpes Simplex Culture HSV I IgG Ab HSV II IgG Influenza Type A (PCR) Influenza Type B (PCR) RSV RNA Qual (PCR) SARS-CoV-2 RNA (RT-PCR) Ref Lab Test Result 01/21/25 01/21/25 01/21/25 11:51 17:15 23:56 WBC RBC Hgb Hct MCV MCH MCHC RDW Plt Count MPV Immature Gran % (Auto) Neut % (Auto) Lymph % (Auto) [place] % (Auto) Eos % (Auto) Baso % (Auto) Lymph # (Auto) [place] # (Auto) Eos # (Auto) Baso # (Auto) Abs Immat Gran (auto) Absolute Neuts (auto) Absolute Nucleated RBC Nucleated RBC % (auto) Neutrophils % (Manual) Band Neutrophils % Lymphocytes % (Manual) Monocytes % (Manual) Abs Neuts (Manual) Lymphocytes # (Manual) Monocytes # (Manual) Smudge Cells Toxic Vacuolation Platelet Estimate Plt Morphology Comment RBC Morphology Ovalocytes Smear Tech's Comments ESR PT INR O2 Saturation ABG pH at Pt Temp ABG pCO2 at Pt Temp ABG pO2 at Pt Temp ABG HCO3 ABG Base Excess (Actual) VBG pH VBG pCO2 VBG pO2 VBG HCO3 VBG O2 Saturation VBG Base Excess Sodium Potassium Chloride Carbon Dioxide Anion Gap BUN Creatinine Estim Creat Clear Calc Estimated GFR POC Glucose 138 H 112 125 H Random Glucose Lactic Acid Lactic Acid F/U @ 2Hr Calcium Phosphorus Magnesium Total Bilirubin AST ALT Alkaline Phosphatase Total Creatine Kinase Troponin I High Sens C-Reactive Protein B-Natriuretic Peptide Total Protein Albumin Triglycerides Beta HCG, Quant Nasal Screen MRSA (PCR) Nasal S. aureus Screen Nasal MRSA/S.aureus Interp Vancomycin Trough Random Vancomycin Urine Opiates Screen Ur Buprenorphine Scrn Ur Oxycodone Screen Urine Methadone Screen Urine Fentanyl Screen Ur Barbiturates Screen Ur Phencyclidine Scrn Ur Amphetamines Screen U Benzodiazepines Scrn Urine Cocaine Screen U Marijuana (THC) Screen SUKHJINDER Screen SUKHJINDER Titer SUKHJINDER Titer 2 SUKHJINDER Titer 3 SUKHJINDER Pattern SUKHJINDER Pattern 2 SUKHJINDER Pattern 3 Herpes Simplex Culture HSV I IgG Ab HSV II IgG Influenza Type A (PCR) Influenza Type B (PCR) RSV RNA Qual (PCR) SARS-CoV-2 RNA (RT-PCR) Ref Lab Test Result 01/22/25 01/22/25 01/22/25 04:49 05:03 12:59 WBC 9.3 RBC 3.62 L Hgb 10.2 L Hct 29.9 L MCV 82.6 MCH 28.2 MCHC 34.1 RDW 14.7 Plt Count 339 MPV 8.6 L Immature Gran % (Auto) 0.5 H Neut % (Auto) 88.7 H Lymph % (Auto) 7.1 L [place] % (Auto) 3.6 Eos % (Auto) 0.0 Baso % (Auto) 0.1 Lymph # (Auto) 0.7 L [place] # (Auto) 0.3 Eos # (Auto) 0.0 Baso # (Auto) 0.0 Abs Immat Gran (auto) 0.05 H Absolute Neuts (auto) 8.2 Absolute Nucleated RBC 0.000 Nucleated RBC % (auto) 0.0 Neutrophils % (Manual) Band Neutrophils % Lymphocytes % (Manual) Monocytes % (Manual) Abs Neuts (Manual) Lymphocytes # (Manual) Monocytes # (Manual) Smudge Cells Toxic Vacuolation Platelet Estimate Plt Morphology Comment RBC Morphology Ovalocytes Smear Tech's Comments ESR PT INR O2 Saturation ABG pH at Pt Temp ABG pCO2 at Pt Temp ABG pO2 at Pt Temp ABG HCO3 ABG Base Excess (Actual) VBG pH 7.51 H VBG pCO2 49 VBG pO2 53 VBG HCO3 39 H VBG O2 Saturation 81.0 VBG Base Excess 14.8 Sodium 141 Potassium 3.8 Chloride 101 Carbon Dioxide 33 H Anion Gap 11 L BUN 20 H Creatinine 0.33 L Estim Creat Clear Calc 246.4 Estimated GFR > 60 POC Glucose 129 H Random Glucose 135 H Lactic Acid Lactic Acid F/U @ 2Hr Calcium 9.0 Phosphorus 3.1 Magnesium 2.1 Total Bilirubin 0.5 AST 26 ALT 61 H Alkaline Phosphatase 62 Total Creatine Kinase Troponin I High Sens C-Reactive Protein B-Natriuretic Peptide Total Protein 6.4 L Albumin 3.8 Triglycerides Beta HCG, Quant Nasal Screen MRSA (PCR) Nasal S. aureus Screen Nasal MRSA/S.aureus Interp Vancomycin Trough Random Vancomycin Urine Opiates Screen Ur Buprenorphine Scrn Ur Oxycodone Screen Urine Methadone Screen Urine Fentanyl Screen Ur Barbiturates Screen Ur Phencyclidine Scrn Ur Amphetamines Screen U Benzodiazepines Scrn Urine Cocaine Screen U Marijuana (THC) Screen SUKHJINDER Screen SUKHJINDER Titer SUKHJINDER Titer 2 SUKHJINDER Titer 3 SUKHJINDER Pattern SUKHJINDER Pattern 2 SUKHJINDER Pattern 3 Herpes Simplex Culture HSV I IgG Ab HSV II IgG Influenza Type A (PCR) Influenza Type B (PCR) RSV RNA Qual (PCR) SARS-CoV-2 RNA (RT-PCR) Ref Lab Test Result 01/22/25 01/22/25 01/23/25 17:04 23:49 05:52 WBC 12.6 H RBC 4.00 L Hgb 11.1 L Hct 33.5 L MCV 83.8 MCH 27.8 MCHC 33.1 RDW 15.2 Plt Count 323 MPV 8.5 L Immature Gran % (Auto) 0.3 Neut % (Auto) 83.2 H Lymph % (Auto) 10.2 L [place] % (Auto) 6.0 Eos % (Auto) 0.1 Baso % (Auto) 0.2 Lymph # (Auto) 1.3 [place] # (Auto) 0.8 Eos # (Auto) 0.0 Baso # (Auto) 0.0 Abs Immat Gran (auto) 0.04 H Absolute Neuts (auto) 10.5 H Absolute Nucleated RBC 0.000 Nucleated RBC % (auto) 0.0 Neutrophils % (Manual) Band Neutrophils % Lymphocytes % (Manual) Monocytes % (Manual) Abs Neuts (Manual) Lymphocytes # (Manual) Monocytes # (Manual) Smudge Cells Toxic Vacuolation Platelet Estimate Plt Morphology Comment RBC Morphology Ovalocytes Smear Tech's Comments ESR PT INR O2 Saturation ABG pH at Pt Temp ABG pCO2 at Pt Temp ABG pO2 at Pt Temp ABG HCO3 ABG Base Excess (Actual) VBG pH VBG pCO2 VBG pO2 VBG HCO3 VBG O2 Saturation VBG Base Excess Sodium 146 H Potassium 3.1 L Chloride 104 Carbon Dioxide 31 H Anion Gap 14 BUN 24 H Creatinine 0.42 L Estim Creat Clear Calc 198.7 Estimated GFR > 60 POC Glucose 102 100 Random Glucose 83 Lactic Acid Lactic Acid F/U @ 2Hr Calcium 8.9 Phosphorus 3.3 Magnesium 2.2 Total Bilirubin AST ALT Alkaline Phosphatase Total Creatine Kinase Troponin I High Sens C-Reactive Protein B-Natriuretic Peptide Total Protein Albumin 3.8 Triglycerides Beta HCG, Quant Nasal Screen MRSA (PCR) Nasal S. aureus Screen Nasal MRSA/S.aureus Interp Vancomycin Trough Random Vancomycin Urine Opiates Screen Ur Buprenorphine Scrn Ur Oxycodone Screen Urine Methadone Screen Urine Fentanyl Screen Ur Barbiturates Screen Ur Phencyclidine Scrn Ur Amphetamines Screen U Benzodiazepines Scrn Urine Cocaine Screen U Marijuana (THC) Screen SUKHJINDER Screen SUKHJINDER Titer SUKHJINDER Titer 2 SUKHJINDER Titer 3 SUKHJINDER Pattern SUKHJINDER Pattern 2 SUKHJINDER Pattern 3 Herpes Simplex Culture HSV I IgG Ab HSV II IgG Influenza Type A (PCR) Influenza Type B (PCR) RSV RNA Qual (PCR) SARS-CoV-2 RNA (RT-PCR) Ref Lab Test Result 01/23/25 01/23/25 01/23/25 05:53 06:10 11:16 WBC RBC Hgb Hct MCV MCH MCHC RDW Plt Count MPV Immature Gran % (Auto) Neut % (Auto) Lymph % (Auto) [place] % (Auto) Eos % (Auto) Baso % (Auto) Lymph # (Auto) [place] # (Auto) Eos # (Auto) Baso # (Auto) Abs Immat Gran (auto) Absolute Neuts (auto) Absolute Nucleated RBC Nucleated RBC % (auto) Neutrophils % (Manual) Band Neutrophils % Lymphocytes % (Manual) Monocytes % (Manual) Abs Neuts (Manual) Lymphocytes # (Manual) Monocytes # (Manual) Smudge Cells Toxic Vacuolation Platelet Estimate Plt Morphology Comment RBC Morphology Ovalocytes Smear Tech's Comments ESR PT INR O2 Saturation ABG pH at Pt Temp ABG pCO2 at Pt Temp ABG pO2 at Pt Temp ABG HCO3 ABG Base Excess (Actual) VBG pH 7.46 H VBG pCO2 55 VBG pO2 38 VBG HCO3 40 H VBG O2 Saturation 57.0 VBG Base Excess 14.2 Sodium Potassium Chloride Carbon Dioxide Anion Gap BUN Creatinine Estim Creat Clear Calc Estimated GFR POC Glucose 84 84 Random Glucose Lactic Acid Lactic Acid F/U @ 2Hr Calcium Phosphorus Magnesium Total Bilirubin AST ALT Alkaline Phosphatase Total Creatine Kinase Troponin I High Sens C-Reactive Protein B-Natriuretic Peptide Total Protein Albumin Triglycerides Beta HCG, Quant Nasal Screen MRSA (PCR) Nasal S. aureus Screen Nasal MRSA/S.aureus Interp Vancomycin Trough Random Vancomycin Urine Opiates Screen Ur Buprenorphine Scrn Ur Oxycodone Screen Urine Methadone Screen Urine Fentanyl Screen Ur Barbiturates Screen Ur Phencyclidine Scrn Ur Amphetamines Screen U Benzodiazepines Scrn Urine Cocaine Screen U Marijuana (THC) Screen SUKHJINDER Screen SUKHJINDER Titer SUKHJINDER Titer 2 SUKHJINDER Titer 3 SUKHJINDER Pattern SUKHJINDER Pattern 2 SUKHJINDER Pattern 3 Herpes Simplex Culture HSV I IgG Ab HSV II IgG Influenza Type A (PCR) Influenza Type B (PCR) RSV RNA Qual (PCR) SARS-CoV-2 RNA (RT-PCR) Ref Lab Test Result 01/23/25 01/23/25 01/23/25 17:56 20:06 23:49 WBC RBC Hgb Hct MCV MCH MCHC RDW Plt Count MPV Immature Gran % (Auto) Neut % (Auto) Lymph % (Auto) [place] % (Auto) Eos % (Auto) Baso % (Auto) Lymph # (Auto) [place] # (Auto) Eos # (Auto) Baso # (Auto) Abs Immat Gran (auto) Absolute Neuts (auto) Absolute Nucleated RBC Nucleated RBC % (auto) Neutrophils % (Manual) Band Neutrophils % Lymphocytes % (Manual) Monocytes % (Manual) Abs Neuts (Manual) Lymphocytes # (Manual) Monocytes # (Manual) Smudge Cells Toxic Vacuolation Platelet Estimate Plt Morphology Comment RBC Morphology Ovalocytes Smear Tech's Comments ESR PT INR O2 Saturation ABG pH at Pt Temp ABG pCO2 at Pt Temp ABG pO2 at Pt Temp ABG HCO3 ABG Base Excess (Actual) VBG pH 7.39 VBG pCO2 51 VBG pO2 58 VBG HCO3 31 H VBG O2 Saturation 82.0 VBG Base Excess 5.7 Sodium Potassium Chloride Carbon Dioxide Anion Gap BUN Creatinine Estim Creat Clear Calc Estimated GFR POC Glucose 110 162 H Random Glucose Lactic Acid Lactic Acid F/U @ 2Hr Calcium Phosphorus Magnesium Total Bilirubin AST ALT Alkaline Phosphatase Total Creatine Kinase Troponin I High Sens C-Reactive Protein B-Natriuretic Peptide Total Protein Albumin Triglycerides Beta HCG, Quant Nasal Screen MRSA (PCR) Nasal S. aureus Screen Nasal MRSA/S.aureus Interp Vancomycin Trough Random Vancomycin Urine Opiates Screen Ur Buprenorphine Scrn Ur Oxycodone Screen Urine Methadone Screen Urine Fentanyl Screen Ur Barbiturates Screen Ur Phencyclidine Scrn Ur Amphetamines Screen U Benzodiazepines Scrn Urine Cocaine Screen U Marijuana (THC) Screen SUKHJINDER Screen SUKHJINDER Titer SUKHJINDER Titer 2 SUKHJINDER Titer 3 SUKHJINDER Pattern SUKHJINDER Pattern 2 SUKHJINDER Pattern 3 Herpes Simplex Culture HSV I IgG Ab HSV II IgG Influenza Type A (PCR) Influenza Type B (PCR) RSV RNA Qual (PCR) SARS-CoV-2 RNA (RT-PCR) Ref Lab Test Result 01/24/25 01/24/25 01/24/25 04:33 04:34 05:48 WBC 9.7 RBC 3.76 L Hgb 10.5 L Hct 31.4 L MCV 83.5 MCH 27.9 MCHC 33.4 RDW 15.6 Plt Count 253 MPV 8.5 L Immature Gran % (Auto) 0.4 Neut % (Auto) 84.7 H Lymph % (Auto) 9.1 L [place] % (Auto) 5.6 Eos % (Auto) 0.1 Baso % (Auto) 0.1 Lymph # (Auto) 0.9 L [place] # (Auto) 0.5 Eos # (Auto) 0.0 Baso # (Auto) 0.0 Abs Immat Gran (auto) 0.04 H Absolute Neuts (auto) 8.2 Absolute Nucleated RBC 0.000 Nucleated RBC % (auto) 0.0 Neutrophils % (Manual) Band Neutrophils % Lymphocytes % (Manual) Monocytes % (Manual) Abs Neuts (Manual) Lymphocytes # (Manual) Monocytes # (Manual) Smudge Cells Toxic Vacuolation Platelet Estimate Plt Morphology Comment RBC Morphology Ovalocytes Smear Tech's Comments ESR PT INR O2 Saturation ABG pH at Pt Temp ABG pCO2 at Pt Temp ABG pO2 at Pt Temp ABG HCO3 ABG Base Excess (Actual) VBG pH 7.45 H VBG pCO2 46 VBG pO2 49 VBG HCO3 32 H VBG O2 Saturation 76.0 VBG Base Excess 7.5 Sodium 147 H Potassium 4.1 D Chloride 106 Carbon Dioxide 28 Anion Gap 17 BUN 42 H Creatinine 1.43 H Estim Creat Clear Calc 58.3 Estimated GFR 40 POC Glucose 165 H Random Glucose 182 H Lactic Acid Lactic Acid F/U @ 2Hr Calcium 9.0 Phosphorus 7.6 H Magnesium 2.2 Total Bilirubin 0.7 AST 35 H ALT 66 H Alkaline Phosphatase 60 Total Creatine Kinase Troponin I High Sens C-Reactive Protein B-Natriuretic Peptide Total Protein 5.9 L Albumin 3.5 Triglycerides 183 H Beta HCG, Quant Nasal Screen MRSA (PCR) Nasal S. aureus Screen Nasal MRSA/S.aureus Interp Vancomycin Trough Random Vancomycin Urine Opiates Screen Ur Buprenorphine Scrn Ur Oxycodone Screen Urine Methadone Screen Urine Fentanyl Screen Ur Barbiturates Screen Ur Phencyclidine Scrn Ur Amphetamines Screen U Benzodiazepines Scrn Urine Cocaine Screen U Marijuana (THC) Screen SUKHJINDER Screen SUKHJINDER Titer SUKHJINDER Titer 2 SUKHJINDER Titer 3 SUKHJINDER Pattern SUKHJINDER Pattern 2 SUKHJINDER Pattern 3 Herpes Simplex Culture HSV I IgG Ab HSV II IgG Influenza Type A (PCR) Influenza Type B (PCR) RSV RNA Qual (PCR) SARS-CoV-2 RNA (RT-PCR) Ref Lab Test Result 01/24/25 01/24/25 01/24/25 07:44 12:22 17:37 WBC RBC Hgb Hct MCV MCH MCHC RDW Plt Count MPV Immature Gran % (Auto) Neut % (Auto) Lymph % (Auto) [place] % (Auto) Eos % (Auto) Baso % (Auto) Lymph # (Auto) [place] # (Auto) Eos # (Auto) Baso # (Auto) Abs Immat Gran (auto) Absolute Neuts (auto) Absolute Nucleated RBC Nucleated RBC % (auto) Neutrophils % (Manual) Band Neutrophils % Lymphocytes % (Manual) Monocytes % (Manual) Abs Neuts (Manual) Lymphocytes # (Manual) Monocytes # (Manual) Smudge Cells Toxic Vacuolation Platelet Estimate Plt Morphology Comment RBC Morphology Ovalocytes Smear Tech's Comments ESR PT INR O2 Saturation ABG pH at Pt Temp ABG pCO2 at Pt Temp ABG pO2 at Pt Temp ABG HCO3 ABG Base Excess (Actual) VBG pH VBG pCO2 VBG pO2 VBG HCO3 VBG O2 Saturation VBG Base Excess Sodium Potassium Chloride Carbon Dioxide Anion Gap BUN Creatinine Estim Creat Clear Calc Estimated GFR POC Glucose 143 H 207 H 175 H Random Glucose Lactic Acid Lactic Acid F/U @ 2Hr Calcium Phosphorus Magnesium Total Bilirubin AST ALT Alkaline Phosphatase Total Creatine Kinase Troponin I High Sens C-Reactive Protein B-Natriuretic Peptide Total Protein Albumin Triglycerides Beta HCG, Quant Nasal Screen MRSA (PCR) Nasal S. aureus Screen Nasal MRSA/S.aureus Interp Vancomycin Trough Random Vancomycin Urine Opiates Screen Ur Buprenorphine Scrn Ur Oxycodone Screen Urine Methadone Screen Urine Fentanyl Screen Ur Barbiturates Screen Ur Phencyclidine Scrn Ur Amphetamines Screen U Benzodiazepines Scrn Urine Cocaine Screen U Marijuana (THC) Screen SUKHJINDER Screen SUKHJINDER Titer SUKHJINDER Titer 2 SUKHJINDER Titer 3 SUKHJINDER Pattern SUKHJINDER Pattern 2 SUKHJINDER Pattern 3 Herpes Simplex Culture HSV I IgG Ab HSV II IgG Influenza Type A (PCR) Influenza Type B (PCR) RSV RNA Qual (PCR) SARS-CoV-2 RNA (RT-PCR) Ref Lab Test Result 01/24/25 01/25/25 01/25/25 23:44 05:28 05:34 WBC 9.9 RBC 3.78 L Hgb 10.5 L Hct 32.5 L MCV 86.0 MCH 27.8 MCHC 32.3 RDW 15.9 Plt Count 225 MPV 8.9 L Immature Gran % (Auto) 0.7 H Neut % (Auto) 87.9 H Lymph % (Auto) 5.8 L [place] % (Auto) 4.8 Eos % (Auto) 0.7 Baso % (Auto) 0.1 Lymph # (Auto) 0.6 L [place] # (Auto) 0.5 Eos # (Auto) 0.1 Baso # (Auto) 0.0 Abs Immat Gran (auto) 0.07 H Absolute Neuts (auto) 8.7 H Absolute Nucleated RBC 0.000 Nucleated RBC % (auto) 0.0 Neutrophils % (Manual) Band Neutrophils % Lymphocytes % (Manual) Monocytes % (Manual) Abs Neuts (Manual) Lymphocytes # (Manual) Monocytes # (Manual) Smudge Cells Toxic Vacuolation Platelet Estimate Plt Morphology Comment RBC Morphology Ovalocytes Smear Tech's Comments ESR PT INR O2 Saturation ABG pH at Pt Temp ABG pCO2 at Pt Temp ABG pO2 at Pt Temp ABG HCO3 ABG Base Excess (Actual) VBG pH 7.41 VBG pCO2 47 VBG pO2 53 VBG HCO3 30 H VBG O2 Saturation 75.0 VBG Base Excess 5.1 Sodium 145 Potassium 5.1 D Chloride 106 Carbon Dioxide 27 Anion Gap 17 BUN 61 H Creatinine 2.16 H Estim Creat Clear Calc 38.7 Estimated GFR 25 POC Glucose 181 H Random Glucose 171 H Lactic Acid Lactic Acid F/U @ 2Hr Calcium 9.4 Phosphorus 6.0 H Magnesium 2.7 H Total Bilirubin 0.6 AST 28 ALT 47 H Alkaline Phosphatase 66 Total Creatine Kinase Troponin I High Sens C-Reactive Protein B-Natriuretic Peptide Total Protein 6.2 L Albumin 3.6 Triglycerides Beta HCG, Quant Nasal Screen MRSA (PCR) Nasal S. aureus Screen Nasal MRSA/S.aureus Interp Vancomycin Trough Random Vancomycin Urine Opiates Screen Ur Buprenorphine Scrn Ur Oxycodone Screen Urine Methadone Screen Urine Fentanyl Screen Ur Barbiturates Screen Ur Phencyclidine Scrn Ur Amphetamines Screen U Benzodiazepines Scrn Urine Cocaine Screen U Marijuana (THC) Screen SUKHJINDER Screen SUKHJINDER Titer SUKHJINDER Titer 2 SUKHJINDER Titer 3 SUKHJINDER Pattern SUKHJINDER Pattern 2 SUKHJINDER Pattern 3 Herpes Simplex Culture HSV I IgG Ab HSV II IgG Influenza Type A (PCR) Influenza Type B (PCR) RSV RNA Qual (PCR) SARS-CoV-2 RNA (RT-PCR) Ref Lab Test Result 01/25/25 01/25/25 01/25/25 05:55 11:46 18:42 WBC RBC Hgb Hct MCV MCH MCHC RDW Plt Count MPV Immature Gran % (Auto) Neut % (Auto) Lymph % (Auto) [place] % (Auto) Eos % (Auto) Baso % (Auto) Lymph # (Auto) [place] # (Auto) Eos # (Auto) Baso # (Auto) Abs Immat Gran (auto) Absolute Neuts (auto) Absolute Nucleated RBC Nucleated RBC % (auto) Neutrophils % (Manual) Band Neutrophils % Lymphocytes % (Manual) Monocytes % (Manual) Abs Neuts (Manual) Lymphocytes # (Manual) Monocytes # (Manual) Smudge Cells Toxic Vacuolation Platelet Estimate Plt Morphology Comment RBC Morphology Ovalocytes Smear Tech's Comments ESR PT INR O2 Saturation ABG pH at Pt Temp ABG pCO2 at Pt Temp ABG pO2 at Pt Temp ABG HCO3 ABG Base Excess (Actual) VBG pH VBG pCO2 VBG pO2 VBG HCO3 VBG O2 Saturation VBG Base Excess Sodium Potassium Chloride Carbon Dioxide Anion Gap BUN Creatinine Estim Creat Clear Calc Estimated GFR POC Glucose 176 H 189 H 168 H Random Glucose Lactic Acid Lactic Acid F/U @ 2Hr Calcium Phosphorus Magnesium Total Bilirubin AST ALT Alkaline Phosphatase Total Creatine Kinase Troponin I High Sens C-Reactive Protein B-Natriuretic Peptide Total Protein Albumin Triglycerides Beta HCG, Quant Nasal Screen MRSA (PCR) Nasal S. aureus Screen Nasal MRSA/S.aureus Interp Vancomycin Trough Random Vancomycin Urine Opiates Screen Ur Buprenorphine Scrn Ur Oxycodone Screen Urine Methadone Screen Urine Fentanyl Screen Ur Barbiturates Screen Ur Phencyclidine Scrn Ur Amphetamines Screen U Benzodiazepines Scrn Urine Cocaine Screen U Marijuana (THC) Screen SUKHJINDER Screen SUKHJINDER Titer SUKHJINDER Titer 2 SUKHJINDER Titer 3 SUKHJINDER Pattern SUKHJINDER Pattern 2 SUKHJINDER Pattern 3 Herpes Simplex Culture HSV I IgG Ab HSV II IgG Influenza Type A (PCR) Influenza Type B (PCR) RSV RNA Qual (PCR) SARS-CoV-2 RNA (RT-PCR) Ref Lab Test Result 01/25/25 01/25/25 01/26/25 19:34 23:33 04:53 WBC 10.8 RBC 3.33 L Hgb 9.5 L Hct 29.4 L MCV 88.3 MCH 28.5 MCHC 32.3 RDW 15.8 Plt Count 234 MPV 9.2 L Immature Gran % (Auto) 0.8 H Neut % (Auto) 83.2 H Lymph % (Auto) 9.1 L [place] % (Auto) 5.6 Eos % (Auto) 1.2 Baso % (Auto) 0.1 Lymph # (Auto) 1.0 L [place] # (Auto) 0.6 Eos # (Auto) 0.1 Baso # (Auto) 0.0 Abs Immat Gran (auto) 0.09 H Absolute Neuts (auto) 9.0 H Absolute Nucleated RBC 0.000 Nucleated RBC % (auto) 0.0 Neutrophils % (Manual) Band Neutrophils % Lymphocytes % (Manual) Monocytes % (Manual) Abs Neuts (Manual) Lymphocytes # (Manual) Monocytes # (Manual) Smudge Cells Toxic Vacuolation Platelet Estimate Plt Morphology Comment RBC Morphology Ovalocytes Smear Tech's Comments ESR PT INR O2 Saturation 97.0 ABG pH at Pt Temp 7.33 L ABG pCO2 at Pt Temp 60 H* ABG pO2 at Pt Temp 101 ABG HCO3 32 H ABG Base Excess (Actual) 5.0 VBG pH Cancelled VBG pCO2 Cancelled VBG pO2 Cancelled VBG HCO3 Cancelled VBG O2 Saturation Cancelled VBG Base Excess Cancelled Sodium 141 Potassium 5.5 H Chloride 106 Carbon Dioxide 23 Anion Gap 18 BUN 70 H Creatinine 2.06 H Estim Creat Clear Calc 40.8 Estimated GFR 26 POC Glucose 188 H Random Glucose 201 H Lactic Acid Lactic Acid F/U @ 2Hr Calcium 10.1 D Phosphorus 2.5 L Magnesium 2.8 H Total Bilirubin 0.4 AST 21 ALT 31 Alkaline Phosphatase 74 Total Creatine Kinase Troponin I High Sens C-Reactive Protein B-Natriuretic Peptide Total Protein 6.2 L Albumin 3.4 L Triglycerides Beta HCG, Quant Nasal Screen MRSA (PCR) Nasal S. aureus Screen Nasal MRSA/S.aureus Interp Vancomycin Trough Random Vancomycin Urine Opiates Screen Ur Buprenorphine Scrn Ur Oxycodone Screen Urine Methadone Screen Urine Fentanyl Screen Ur Barbiturates Screen Ur Phencyclidine Scrn Ur Amphetamines Screen U Benzodiazepines Scrn Urine Cocaine Screen U Marijuana (THC) Screen SUKHJINDER Screen SUKHJINDER Titer SUKHJINDER Titer 2 SUKHJINDER Titer 3 SUKHJINDER Pattern SUKHJINDER Pattern 2 SUKHJINDER Pattern 3 Herpes Simplex Culture HSV I IgG Ab HSV II IgG Influenza Type A (PCR) Influenza Type B (PCR) RSV RNA Qual (PCR) SARS-CoV-2 RNA (RT-PCR) Ref Lab Test Result 01/26/25 01/26/25 01/26/25 04:56 05:42 11:10 WBC RBC Hgb Hct MCV MCH MCHC RDW Plt Count MPV Immature Gran % (Auto) Neut % (Auto) Lymph % (Auto) [place] % (Auto) Eos % (Auto) Baso % (Auto) Lymph # (Auto) [place] # (Auto) Eos # (Auto) Baso # (Auto) Abs Immat Gran (auto) Absolute Neuts (auto) Absolute Nucleated RBC Nucleated RBC % (auto) Neutrophils % (Manual) Band Neutrophils % Lymphocytes % (Manual) Monocytes % (Manual) Abs Neuts (Manual) Lymphocytes # (Manual) Monocytes # (Manual) Smudge Cells Toxic Vacuolation Platelet Estimate Plt Morphology Comment RBC Morphology Ovalocytes Smear Tech's Comments ESR PT INR O2 Saturation ABG pH at Pt Temp ABG pCO2 at Pt Temp ABG pO2 at Pt Temp ABG HCO3 ABG Base Excess (Actual) VBG pH 7.46 H VBG pCO2 39 VBG pO2 84 VBG HCO3 28 H VBG O2 Saturation 95.0 VBG Base Excess 4.7 Sodium Potassium Chloride Carbon Dioxide Anion Gap BUN Creatinine Estim Creat Clear Calc Estimated GFR POC Glucose 202 H 167 H Random Glucose Lactic Acid Lactic Acid F/U @ 2Hr Calcium Phosphorus Magnesium Total Bilirubin AST ALT Alkaline Phosphatase Total Creatine Kinase Troponin I High Sens C-Reactive Protein B-Natriuretic Peptide Total Protein Albumin Triglycerides Beta HCG, Quant Nasal Screen MRSA (PCR) Nasal S. aureus Screen Nasal MRSA/S.aureus Interp Vancomycin Trough Random Vancomycin Urine Opiates Screen Ur Buprenorphine Scrn Ur Oxycodone Screen Urine Methadone Screen Urine Fentanyl Screen Ur Barbiturates Screen Ur Phencyclidine Scrn Ur Amphetamines Screen U Benzodiazepines Scrn Urine Cocaine Screen U Marijuana (THC) Screen SUKHJINDER Screen SUKHJINDER Titer SUKHJINDER Titer 2 SUKHJINDER Titer 3 SUKHJINDER Pattern SUKHJINDER Pattern 2 SUKHJINDER Pattern 3 Herpes Simplex Culture HSV I IgG Ab HSV II IgG Influenza Type A (PCR) Influenza Type B (PCR) RSV RNA Qual (PCR) SARS-CoV-2 RNA (RT-PCR) Ref Lab Test Result 01/26/25 01/26/25 01/27/25 17:35 23:46 05:15 WBC 12.3 H RBC 3.68 L Hgb 10.4 L Hct 30.2 L MCV 82.1 D MCH 28.3 MCHC 34.4 RDW 15.9 Plt Count 263 MPV 9.3 L Immature Gran % (Auto) 0.6 H Neut % (Auto) 77.5 H Lymph % (Auto) 13.6 L [place] % (Auto) 5.7 Eos % (Auto) 2.4 Baso % (Auto) 0.2 Lymph # (Auto) 1.7 [place] # (Auto) 0.7 Eos # (Auto) 0.3 Baso # (Auto) 0.0 Abs Immat Gran (auto) 0.07 H Absolute Neuts (auto) 9.6 H Absolute Nucleated RBC 0.000 Nucleated RBC % (auto) 0.0 Neutrophils % (Manual) Band Neutrophils % Lymphocytes % (Manual) Monocytes % (Manual) Abs Neuts (Manual) Lymphocytes # (Manual) Monocytes # (Manual) Smudge Cells Toxic Vacuolation Platelet Estimate Plt Morphology Comment RBC Morphology Ovalocytes Smear Tech's Comments ESR PT INR O2 Saturation ABG pH at Pt Temp ABG pCO2 at Pt Temp ABG pO2 at Pt Temp ABG HCO3 ABG Base Excess (Actual) VBG pH VBG pCO2 VBG pO2 VBG HCO3 VBG O2 Saturation VBG Base Excess Sodium 140 Potassium 4.4 Chloride 103 Carbon Dioxide 25 Anion Gap 16 BUN 51 H Creatinine 1.18 Estim Creat Clear Calc 66.7 Estimated GFR 49 POC Glucose 109 142 H Random Glucose 177 H Lactic Acid Lactic Acid F/U @ 2Hr Calcium 10.3 H Phosphorus 3.4 Magnesium 2.1 Total Bilirubin 0.5 AST 16 ALT 22 Alkaline Phosphatase 88 Total Creatine Kinase Troponin I High Sens C-Reactive Protein B-Natriuretic Peptide Total Protein 6.6 Albumin 3.5 Triglycerides Beta HCG, Quant Nasal Screen MRSA (PCR) Nasal S. aureus Screen Nasal MRSA/S.aureus Interp Vancomycin Trough Random Vancomycin Urine Opiates Screen Ur Buprenorphine Scrn Ur Oxycodone Screen Urine Methadone Screen Urine Fentanyl Screen Ur Barbiturates Screen Ur Phencyclidine Scrn Ur Amphetamines Screen U Benzodiazepines Scrn Urine Cocaine Screen U Marijuana (THC) Screen SUKHJINDER Screen SUKHJINDER Titer SUKHJINDER Titer 2 SUKHJINDER Titer 3 SUKHJINDER Pattern SUKHJINDER Pattern 2 SUKHJINDER Pattern 3 Herpes Simplex Culture HSV I IgG Ab HSV II IgG Influenza Type A (PCR) Influenza Type B (PCR) RSV RNA Qual (PCR) SARS-CoV-2 RNA (RT-PCR) Ref Lab Test Result 01/27/25 01/27/25 01/27/25 05:19 12:16 18:11 WBC RBC Hgb Hct MCV MCH MCHC RDW Plt Count MPV Immature Gran % (Auto) Neut % (Auto) Lymph % (Auto) [place] % (Auto) Eos % (Auto) Baso % (Auto) Lymph # (Auto) [place] # (Auto) Eos # (Auto) Baso # (Auto) Abs Immat Gran (auto) Absolute Neuts (auto) Absolute Nucleated RBC Nucleated RBC % (auto) Neutrophils % (Manual) Band Neutrophils % Lymphocytes % (Manual) Monocytes % (Manual) Abs Neuts (Manual) Lymphocytes # (Manual) Monocytes # (Manual) Smudge Cells Toxic Vacuolation Platelet Estimate Plt Morphology Comment RBC Morphology Ovalocytes Smear Tech's Comments ESR PT INR O2 Saturation ABG pH at Pt Temp ABG pCO2 at Pt Temp ABG pO2 at Pt Temp ABG HCO3 ABG Base Excess (Actual) VBG pH 7.51 H VBG pCO2 30 VBG pO2 96 VBG HCO3 25 VBG O2 Saturation 98.0 VBG Base Excess 2.8 Sodium Potassium Chloride Carbon Dioxide Anion Gap BUN Creatinine Estim Creat Clear Calc Estimated GFR POC Glucose 154 H 134 H Random Glucose Lactic Acid Lactic Acid F/U @ 2Hr Calcium Phosphorus Magnesium Total Bilirubin AST ALT Alkaline Phosphatase Total Creatine Kinase Troponin I High Sens C-Reactive Protein B-Natriuretic Peptide Total Protein Albumin Triglycerides Beta HCG, Quant Nasal Screen MRSA (PCR) Nasal S. aureus Screen Nasal MRSA/S.aureus Interp Vancomycin Trough Random Vancomycin Urine Opiates Screen Ur Buprenorphine Scrn Ur Oxycodone Screen Urine Methadone Screen Urine Fentanyl Screen Ur Barbiturates Screen Ur Phencyclidine Scrn Ur Amphetamines Screen U Benzodiazepines Scrn Urine Cocaine Screen U Marijuana (THC) Screen SUKHJINDER Screen SUKHJINDER Titer SUKHJINDER Titer 2 SUKHJINDER Titer 3 SUKHJINDER Pattern SUKHJINDER Pattern 2 SUKHJINDER Pattern 3 Herpes Simplex Culture HSV I IgG Ab HSV II IgG Influenza Type A (PCR) Influenza Type B (PCR) RSV RNA Qual (PCR) SARS-CoV-2 RNA (RT-PCR) Ref Lab Test Result 08/09/25 08/10/25 08/10/25 23:50 05:24 05:26 WBC 9.8 RBC 3.79 L Hgb 10.6 L Hct 31.2 L MCV 82.3 MCH 28.0 MCHC 34.0 RDW 15.9 Plt Count 218 MPV 9.4 Immature Gran % (Auto) 0.8 H Neut % (Auto) 74.2 H Lymph % (Auto) 15.1 L [place] % (Auto) 6.4 Eos % (Auto) 3.3 Baso % (Auto) 0.2 Lymph # (Auto) 1.5 [place] # (Auto) 0.6 Eos # (Auto) 0.3 Baso # (Auto) 0.0 Abs Immat Gran (auto) 0.08 H Absolute Neuts (auto) 7.3 Absolute Nucleated RBC 0.000 Nucleated RBC % (auto) 0.0 Neutrophils % (Manual) Band Neutrophils % Lymphocytes % (Manual) Monocytes % (Manual) Abs Neuts (Manual) Lymphocytes # (Manual) Monocytes # (Manual) Smudge Cells Toxic Vacuolation Platelet Estimate Plt Morphology Comment RBC Morphology Ovalocytes Smear Tech's Comments ESR PT INR O2 Saturation ABG pH at Pt Temp ABG pCO2 at Pt Temp ABG pO2 at Pt Temp ABG HCO3 ABG Base Excess (Actual) VBG pH 7.50 H VBG pCO2 32 VBG pO2 77 VBG HCO3 25 VBG O2 Saturation 93.0 VBG Base Excess 2.8 Sodium 142 Potassium 3.5 D Chloride 105 Carbon Dioxide 24 Anion Gap 17 BUN 31 H Creatinine 0.77 Estim Creat Clear Calc 102.2 Estimated GFR > 60 POC Glucose 176 H Random Glucose 162 H Lactic Acid Lactic Acid F/U @ 2Hr Calcium 9.7 Phosphorus 4.1 Magnesium 1.8 Total Bilirubin 0.5 AST 19 ALT 20 Alkaline Phosphatase 100 Total Creatine Kinase Troponin I High Sens C-Reactive Protein B-Natriuretic Peptide Total Protein 6.6 Albumin 3.5 Triglycerides Beta HCG, Quant Nasal Screen MRSA (PCR) Nasal S. aureus Screen Nasal MRSA/S.aureus Interp Vancomycin Trough Random Vancomycin Urine Opiates Screen Ur Buprenorphine Scrn Ur Oxycodone Screen Urine Methadone Screen Urine Fentanyl Screen Ur Barbiturates Screen Ur Phencyclidine Scrn Ur Amphetamines Screen U Benzodiazepines Scrn Urine Cocaine Screen U Marijuana (THC) Screen SUKHJINDER Screen SUKHJINDER Titer SUKHJINDER Titer 2 SUKHJINDER Titer 3 SUKHJINDER Pattern SUKHJINDER Pattern 2 SUKHJINDER Pattern 3 Herpes Simplex Culture HSV I IgG Ab HSV II IgG Influenza Type A (PCR) Influenza Type B (PCR) RSV RNA Qual (PCR) SARS-CoV-2 RNA (RT-PCR) Ref Lab Test Result 01/28/25 01/28/25 01/28/25 11:55 17:34 23:51 WBC RBC Hgb Hct MCV MCH MCHC RDW Plt Count MPV Immature Gran % (Auto) Neut % (Auto) Lymph % (Auto) [place] % (Auto) Eos % (Auto) Baso % (Auto) Lymph # (Auto) [place] # (Auto) Eos # (Auto) Baso # (Auto) Abs Immat Gran (auto) Absolute Neuts (auto) Absolute Nucleated RBC Nucleated RBC % (auto) Neutrophils % (Manual) Band Neutrophils % Lymphocytes % (Manual) Monocytes % (Manual) Abs Neuts (Manual) Lymphocytes # (Manual) Monocytes # (Manual) Smudge Cells Toxic Vacuolation Platelet Estimate Plt Morphology Comment RBC Morphology Ovalocytes Smear Tech's Comments ESR PT INR O2 Saturation ABG pH at Pt Temp ABG pCO2 at Pt Temp ABG pO2 at Pt Temp ABG HCO3 ABG Base Excess (Actual) VBG pH VBG pCO2 VBG pO2 VBG HCO3 VBG O2 Saturation VBG Base Excess Sodium Potassium Chloride Carbon Dioxide Anion Gap BUN Creatinine Estim Creat Clear Calc Estimated GFR POC Glucose 116 H 129 H 163 H Random Glucose Lactic Acid Lactic Acid F/U @ 2Hr Calcium Phosphorus Magnesium Total Bilirubin AST ALT Alkaline Phosphatase Total Creatine Kinase Troponin I High Sens C-Reactive Protein B-Natriuretic Peptide Total Protein Albumin Triglycerides Beta HCG, Quant Nasal Screen MRSA (PCR) Nasal S. aureus Screen Nasal MRSA/S.aureus Interp Vancomycin Trough Random Vancomycin Urine Opiates Screen Ur Buprenorphine Scrn Ur Oxycodone Screen Urine Methadone Screen Urine Fentanyl Screen Ur Barbiturates Screen Ur Phencyclidine Scrn Ur Amphetamines Screen U Benzodiazepines Scrn Urine Cocaine Screen U Marijuana (THC) Screen SUKHJINDER Screen SUKHJINDER Titer SUKHJINDER Titer 2 SUKHJINDER Titer 3 SUKHJINDER Pattern SUKHJINDER Pattern 2 SUKHJINDER Pattern 3 Herpes Simplex Culture HSV I IgG Ab HSV II IgG Influenza Type A (PCR) Influenza Type B (PCR) RSV RNA Qual (PCR) SARS-CoV-2 RNA (RT-PCR) Ref Lab Test Result 01/29/25 01/29/25 01/29/25 05:59 06:03 06:11 WBC 7.6 RBC 3.52 L Hgb 10.1 L Hct 29.7 L MCV 84.4 MCH 28.7 MCHC 34.0 RDW 15.9 Plt Count 160 D MPV 9.4 Immature Gran % (Auto) 0.9 H Neut % (Auto) 80.4 H Lymph % (Auto) 9.3 L [place] % (Auto) 6.3 Eos % (Auto) 2.8 Baso % (Auto) 0.3 Lymph # (Auto) 0.7 L [place] # (Auto) 0.5 Eos # (Auto) 0.2 Baso # (Auto) 0.0 Abs Immat Gran (auto) 0.07 H Absolute Neuts (auto) 6.1 Absolute Nucleated RBC 0.000 Nucleated RBC % (auto) 0.0 Neutrophils % (Manual) Band Neutrophils % Lymphocytes % (Manual) Monocytes % (Manual) Abs Neuts (Manual) Lymphocytes # (Manual) Monocytes # (Manual) Smudge Cells Toxic Vacuolation Platelet Estimate Plt Morphology Comment RBC Morphology Ovalocytes Smear Tech's Comments ESR PT INR O2 Saturation ABG pH at Pt Temp ABG pCO2 at Pt Temp ABG pO2 at Pt Temp ABG HCO3 ABG Base Excess (Actual) VBG pH 7.53 H VBG pCO2 27 VBG pO2 96 VBG HCO3 23 VBG O2 Saturation 98.0 VBG Base Excess 1.3 Sodium 142 Potassium 3.3 Chloride 107 Carbon Dioxide 22 Anion Gap 16 BUN 19 H Creatinine 0.56 Estim Creat Clear Calc 139.5 Estimated GFR > 60 POC Glucose 145 H Random Glucose 145 H Lactic Acid Lactic Acid F/U @ 2Hr Calcium 9.2 Phosphorus 4.1 Magnesium 1.8 Total Bilirubin 0.4 AST 22 ALT 22 Alkaline Phosphatase 107 Total Creatine Kinase Troponin I High Sens C-Reactive Protein B-Natriuretic Peptide Total Protein 6.7 Albumin 3.5 Triglycerides Beta HCG, Quant Nasal Screen MRSA (PCR) Nasal S. aureus Screen Nasal MRSA/S.aureus Interp Vancomycin Trough Random Vancomycin Urine Opiates Screen Ur Buprenorphine Scrn Ur Oxycodone Screen Urine Methadone Screen Urine Fentanyl Screen Ur Barbiturates Screen Ur Phencyclidine Scrn Ur Amphetamines Screen U Benzodiazepines Scrn Urine Cocaine Screen U Marijuana (THC) Screen SUKHJINDER Screen SUKHJINDER Titer SUKHJINDER Titer 2 SUKHJINDER Titer 3 SUKHJINDER Pattern SUKHJINDER Pattern 2 SUKHJINDER Pattern 3 Herpes Simplex Culture HSV I IgG Ab HSV II IgG Influenza Type A (PCR) Influenza Type B (PCR) RSV RNA Qual (PCR) SARS-CoV-2 RNA (RT-PCR) Ref Lab Test Result 01/29/25 01/29/25 01/29/25 11:23 17:47 23:44 WBC RBC Hgb Hct MCV MCH MCHC RDW Plt Count MPV Immature Gran % (Auto) Neut % (Auto) Lymph % (Auto) [place] % (Auto) Eos % (Auto) Baso % (Auto) Lymph # (Auto) [place] # (Auto) Eos # (Auto) Baso # (Auto) Abs Immat Gran (auto) Absolute Neuts (auto) Absolute Nucleated RBC Nucleated RBC % (auto) Neutrophils % (Manual) Band Neutrophils % Lymphocytes % (Manual) Monocytes % (Manual) Abs Neuts (Manual) Lymphocytes # (Manual) Monocytes # (Manual) Smudge Cells Toxic Vacuolation Platelet Estimate Plt Morphology Comment RBC Morphology Ovalocytes Smear Tech's Comments ESR PT INR O2 Saturation ABG pH at Pt Temp ABG pCO2 at Pt Temp ABG pO2 at Pt Temp ABG HCO3 ABG Base Excess (Actual) VBG pH VBG pCO2 VBG pO2 VBG HCO3 VBG O2 Saturation VBG Base Excess Sodium Potassium Chloride Carbon Dioxide Anion Gap BUN Creatinine Estim Creat Clear Calc Estimated GFR POC Glucose 131 H 144 H 155 H Random Glucose Lactic Acid Lactic Acid F/U @ 2Hr Calcium Phosphorus Magnesium Total Bilirubin AST ALT Alkaline Phosphatase Total Creatine Kinase Troponin I High Sens C-Reactive Protein B-Natriuretic Peptide Total Protein Albumin Triglycerides Beta HCG, Quant Nasal Screen MRSA (PCR) Nasal S. aureus Screen Nasal MRSA/S.aureus Interp Vancomycin Trough Random Vancomycin Urine Opiates Screen Ur Buprenorphine Scrn Ur Oxycodone Screen Urine Methadone Screen Urine Fentanyl Screen Ur Barbiturates Screen Ur Phencyclidine Scrn Ur Amphetamines Screen U Benzodiazepines Scrn Urine Cocaine Screen U Marijuana (THC) Screen SUKHJINDER Screen SUKHJINDER Titer SUKHJINDER Titer 2 SUKHJINDER Titer 3 SUHKJINDER Pattern SUKHJINDER Pattern 2 SUKHJINDER Pattern 3 Herpes Simplex Culture HSV I IgG Ab HSV II IgG Influenza Type A (PCR) Influenza Type B (PCR) RSV RNA Qual (PCR) SARS-CoV-2 RNA (RT-PCR) Ref Lab Test Result 01/30/25 01/30/25 05:22 05:23 WBC 9.8 RBC 3.71 L Hgb 10.6 L Hct 31.3 L MCV 84.4 MCH 28.6 MCHC 33.9 RDW 15.7 Plt Count 210 D MPV 9.8 Immature Gran % (Auto) 1.0 H Neut % (Auto) 68.9 Lymph % (Auto) 18.8 L [place] % (Auto) 7.6 Eos % (Auto) 3.3 Baso % (Auto) 0.4 Lymph # (Auto) 1.8 [place] # (Auto) 0.7 Eos # (Auto) 0.3 Baso # (Auto) 0.0 Abs Immat Gran (auto) 0.10 H Absolute Neuts (auto) 6.7 Absolute Nucleated RBC 0.000 Nucleated RBC % (auto) 0.0 Neutrophils % (Manual) Band Neutrophils % Lymphocytes % (Manual) Monocytes % (Manual) Abs Neuts (Manual) Lymphocytes # (Manual) Monocytes # (Manual) Smudge Cells Toxic Vacuolation Platelet Estimate Plt Morphology Comment RBC Morphology Ovalocytes Smear Tech's Comments ESR PT INR O2 Saturation ABG pH at Pt Temp ABG pCO2 at Pt Temp ABG pO2 at Pt Temp ABG HCO3 ABG Base Excess (Actual) VBG pH 7.39 VBG pCO2 40 VBG pO2 43 VBG HCO3 24 VBG O2 Saturation 59.0 VBG Base Excess -0.2 Sodium 143 Potassium 3.1 L Chloride 108 Carbon Dioxide 23 Anion Gap 15 BUN 14 Creatinine 0.50 Estim Creat Clear Calc 163.5 Estimated GFR > 60 POC Glucose Random Glucose 128 H Lactic Acid Lactic Acid F/U @ 2Hr Calcium 9.4 Phosphorus 3.9 Magnesium 1.9 Total Bilirubin 0.4 AST 22 ALT 25 Alkaline Phosphatase 121 H Total Creatine Kinase Troponin I High Sens C-Reactive Protein B-Natriuretic Peptide Total Protein 7.2 Albumin 3.7 Triglycerides Beta HCG, Quant Nasal Screen MRSA (PCR) Nasal S. aureus Screen Nasal MRSA/S.aureus Interp Vancomycin Trough Random Vancomycin Urine Opiates Screen Ur Buprenorphine Scrn Ur Oxycodone Screen Urine Methadone Screen Urine Fentanyl Screen Ur Barbiturates Screen Ur Phencyclidine Scrn Ur Amphetamines Screen U Benzodiazepines Scrn Urine Cocaine Screen U Marijuana (THC) Screen SUKHJINDER Screen SUKHJINDER Titer SUKHJINDER Titer 2 SUKHJINDER Titer 3 SUKHJINDER Pattern SUKHJINDER Pattern 2 SUKHJINDER Pattern 3 Herpes Simplex Culture HSV I IgG Ab HSV II IgG Influenza Type A (PCR) Influenza Type B (PCR) RSV RNA Qual (PCR) SARS-CoV-2 RNA (RT-PCR) Ref Lab Test Result Airway TM Dist: >3cm Other: Pt is intubated Assessment and Plan Assessment Anesthesia Assessment: Anesthesia Plan Discussed Final Anesthetic Review Family History of Problems with Anesthesia: No History of Problems with Anesthesia: No NPO: Yes ASA Class: IV Final Preanesthetic Review: No Changes in Pt Med Stat, Meds/Allgs Chart Reviewed, Consent Obtained/Reviewed, Anes Risks/Benef Reviewed and DNR Form (If Appl.) Patient Risk: High Procedure Risk: Intermediate Anesthetic Plan Anesthetic Plan: GA Disposition: Inp. Admit - ICU
--- NOTE | 2025-01-30 07:34 | MHC.SHP ---
Pre-Procedural Eval Section A - 24 Hr Update-Section A only Date of Service: 01/30/25 The patient is an INPATIENT: Yes Section B - Complete if H&P > 30 days Chief Complaint: sob Allergies: Allergies Allergy/AdvReac Type Severity Reaction Status Date / Time metronidazole (From FLAGYL) Allergy Severe CHEST PAIN Verified 01/06/25 19:39 TO LEFT SHOULDER, bacitracin (BACITRACIN) Allergy Intermediate BURNING, Verified 01/06/25 19:39 ITCHING risperidone (From Risperdal) Allergy Intermediate high level Verified 01/06/25 19:39 prolactin aripiprazole (From Abilify) Allergy Mild ITCHING Verified 01/06/25 19:39 iopromide (From Ultravist) Allergy Mild DIZZY, DRY Verified 01/06/25 19:39 THROAT AND MOUTH [place] [address] Allergy Intermediate attention Uncoded 08/21/24 02:46 issues Plan I have reviewed the history and physical and performed a pertinent physical examination on my patient. No changes have occurred unless specified. Discussed procedure with patient's sister (Samantha Al) and she consents to percutaneous tracheostomy, PEG tube placement. Time Spent With Patient Time: Total time managing care of this patient today ____ minutes.
--- NOTE | 2025-01-30 07:49 | MHC.SLORD ---
Speech Language Pathology Order Status: Patient intubated, speech consult deferred. Per EMR, surgery has been consulted for tracheostomy and PEG tube placement.
--- NOTE | 2025-01-30 07:59 | PC.RT ---
Pt in OR this am.
[2025-01-30 08:28] LABS: Venous Blood Gas Refer to POC result
--- NOTE | 2025-01-30 08:28 | P.OP_ITS ---
Operative Note Operative Note Date of Service: 01/30/25 Narrative: Preoperative diagnosis: Respiratory failure Postoperative diagnosis: Same Procedure: Percutaneous dilatation tracheostomy tube placement Surgeon: Daryl Ayala MD Salicylic Acid Blender: Azeem Adame PA-C, CHUYITA Mac Anesthesia: General endotracheal Indications for procedure: 44-year-old female patient with respiratory failure require re-intubation presenting today for tracheostomy tube placement and PEG tube placement (Dr. Velasco Operative findings: ETT removed, tracheostomy tube placed percutaneously Specimen: None Estimated blood loss: 2 mL Complications: None Procedure details: Patient was brought to the OR and placed in a supine position. The patient was previously intubated in the ICU and placed on a ventilator. Patient was continued on light sedation. The patient's neck was prepped with ChloraPrep and draped in a sterile fashion. A bronchoscopy was performed through the ET tube and the ET tube withdrawn to just below the vocal cords. Local anesthesia was infiltrated at a location approximately between the 2nd and 3rd tracheal ring. A Finder needle was inserted and the location confirmed by bronchoscopy. The introducer needle was then inserted and under direct vision the introducer passed over the needle. Using a Seldinger technique the wire was inserted through the introducer and directed distally towards the kita. This was confirmed by bronchoscopy. Plastic sheath was removed and a dilator inserted over the wire. The large dilator was then used to dilate the tract. A 7.0 tracheostomy tube was then inserted, and the introducer removed. The wire was removed as well. Tracheostomy tube cuff balloon was filled. Tracheostomy tube was then connected to the ventilator and end-tidal CO2 confirmed. Tracheostomy tube was then secured to the skin using a 2-0 silk suture. A Velcro cuff and dressings were then applied. The patient remained stable throughout the procedure. Dr. Velasco completed the PEG tube placement following this.
--- NOTE | 2025-01-30 08:45 | W.PM.OPN ---
Operative Note Operative Note Date of Service: 01/30/25 Narrative: Preop diagnosis: Chronic respiratory failure, with prolonged need for mechanical ventilation Postop diagnosis: The same Procedure: PEG tube placement Surgeon: Woo Velasco MD switchboard operator assistant: JOSE Contreras PA The patient is a 44 year old female who has been in the ICU for an extended period of time because of the need for mechanical ventilation in view of her chronic respiratory failure secondary to hypoventilation syndrome. She was referred for PEG tube placement for nutrition because of the need for tracheostomy. Consent was given by her sister Kell The percutaneous tracheostomy was done by Dr. Ayala. The patient was then placed in a reverse Trendelenburg position. She remained on the ventilator via the tracheostomy under anesthesia. A bite block was in position I inserted the scope through the bite block and advanced this into the oropharynx. The vocal cords were visualized. The esophageal slit was seen posterior to this. The esophageal slit was intubated. The scope was advanced through the entire length of the esophagus all the stomach. The stomach was insufflated. Transillumination was seen easily the epigastric area just below the subcostal margin. Also, indentation of the anterior stomach wall with pressure using a finger on this area was noted. Area was therefore prepped and draped. Lidocaine 1% was used for local anesthesia. A stab incision was made on the skin with a blade 11. The large bore needle with the plastic cannula sheath was inserted and this was visualized in the stomach lumen. The needle was removed with the cannula left in place. The guidewire was inserted through the cannula into the lumen. This was grasped with a snare from the endoscope. We then pulled out the guidewire along with the scope way out of the oral orifice. The peg tube was looped onto the wire. The guidewire was then pulled back along with the peg tube all the way until the inner bolster was snug anterior stomach wall. I reinserted the scope all the way to the stomach lumen and the inner bolster was visualized. This was noted to be in good position and there was note of good hemostasis. The scope was then withdrawn completely The external bolster was also positioned to make this snug on the skin The procedure was then completed The patient tolerated the procedure well. There were no immediate complications. There was no significant blood loss. The patient was then transferred back to the ICU with stable vital signs.
[2025-01-30] MEDS: Potassium Chloride/H20 10 MEQ/100 ML PIGGYBACK 100 MEQ IV ×5 (09:27→23:32)
[2025-01-30] MEDS: 0.9 % Sodium Chloride Flush 3 ML SYRINGE IVFLUSH ×2 (09:27→15:47)
[2025-01-30] MEDS: Chlorhexidine Gluc Oral Rinse 15 ML MOUTHWASH BUCCAL ×3 (09:28→19:45)
--- NOTE | 2025-01-30 10:22 | PM.CCPN ---
Subjective Subjective Date of Service: 01/30/25 Interval History: 44-year-old lady with underlying morbid obesity with obesity hyperventilation, PCOS, panic disorder, hypothyroidism admitted on 01/07/2025 with dyspnea to telemetry [facility] in treated empirically for community-acquired pneumonia. Hospital course further complicated by iatrogenic hyperoxia resulting in acute hypercapnia requiring BiPAP support. Patient transferred to telemetry [facility] on 01/08/2025. Overnight patient with another episode you iatrogenic hyperoxia with resultant hypercapnia requiring intubation with ventilatory support and transfer to intensive care unit, further complicated by CO2 narcosis associated aspiration. Extubated uneventfully on 01/10/2025. Overnight with pulmonary aspiration requiring emergent intubation, thereafter with hypoxia refractory to ventilatory support requiring emergent bedside bronchoscopy with secretion clearance with improvement in oxygenation. EMG with no evidence of myopathy. Extubated on 01/19/2025. Continues to require BiPAP support on and off. Overall with what appears to be poor respiratory strength resulting in recurrent aspirations while on BiPAP support necessitating re-intubation overnight on 01/26/2025. Plan for tracheostomy/gastrostomy today. No events overnight. Critical Care Time (minutes): 45 Physical Exam Vital Signs: Vital Signs: Last Vital Signs Temp 97.3 F 01/30/25 07:00 Pulse 70 01/30/25 09:00 Resp 19 01/30/25 09:00 BP 110/71 01/30/25 09:00 Pulse Ox 97 01/30/25 09:00 O2 Del Method Mechanical Ventil ation 01/30/25 09:00 O2 Flow Rate 21 01/30/25 09:00 FiO2 21 01/30/25 09:11 Oxygen Flow Rate 45 01/22/25 12:00 BMI result Body Mass Index 38.6 Const: General: no acute distress and other (Sedated on ventilatory support) Eyes: Sclerae: sclerae normal EOM: EOMs intact bilaterally Neck: Neck: Yes no lymphadenopathy, Yes trachea midline and Yes supple Resp: Auscultation: clear to auscultation bilaterally Cardio: Rate: regular rate Rhythm: regular rhythm Heart sounds: no gallops, no murmurs and no rubs GI: Palpation (GI): Soft to palpation and Other GI palpation findings present ( Nontender) Auscultation: normal bowel sounds Extrem: General: Yes no pedal edema, No clubbing and No cyanosis Objective Data Labs 01/30/25 05:22 01/30/25 05:22 Labs: Laboratory Results - last 24 hr 01/29/25 01/29/25 01/29/25 11:23 17:47 23:44 WBC RBC Hgb Hct MCV MCH MCHC RDW Plt Count MPV Immature Gran % (Auto) Neut % (Auto) Lymph % (Auto) [place] % (Auto) Eos % (Auto) Baso % (Auto) Lymph # (Auto) [place] # (Auto) Eos # (Auto) Baso # (Auto) Abs Immat Gran (auto) Absolute Neuts (auto) Absolute Nucleated RBC Nucleated RBC % (auto) VBG pH VBG pCO2 VBG pO2 VBG HCO3 VBG O2 Saturation VBG Base Excess Sodium Potassium Chloride Carbon Dioxide Anion Gap BUN Creatinine Estim Creat Clear Calc Estimated GFR POC Glucose 131 H 144 H 155 H Random Glucose Calcium Phosphorus Magnesium Total Bilirubin AST ALT Alkaline Phosphatase Total Protein Albumin 01/30/25 01/30/25 05:22 05:23 WBC 9.8 RBC 3.71 L Hgb 10.6 L Hct 31.3 L MCV 84.4 MCH 28.6 MCHC 33.9 RDW 15.7 Plt Count 210 D MPV 9.8 Immature Gran % (Auto) 1.0 H Neut % (Auto) 68.9 Lymph % (Auto) 18.8 L [place] % (Auto) 7.6 Eos % (Auto) 3.3 Baso % (Auto) 0.4 Lymph # (Auto) 1.8 [place] # (Auto) 0.7 Eos # (Auto) 0.3 Baso # (Auto) 0.0 Abs Immat Gran (auto) 0.10 H Absolute Neuts (auto) 6.7 Absolute Nucleated RBC 0.000 Nucleated RBC % (auto) 0.0 VBG pH 7.39 VBG pCO2 40 VBG pO2 43 VBG HCO3 24 VBG O2 Saturation 59.0 VBG Base Excess -0.2 Sodium 143 Potassium 3.1 L Chloride 108 Carbon Dioxide 23 Anion Gap 15 BUN 14 Creatinine 0.50 Estim Creat Clear Calc 163.5 Estimated GFR > 60 POC Glucose Random Glucose 128 H Calcium 9.4 Phosphorus 3.9 Magnesium 1.9 Total Bilirubin 0.4 AST 22 ALT 25 Alkaline Phosphatase 121 H Total Protein 7.2 Albumin 3.7 Microbiology Microbiology Results: Microbiology 01/11/25 22:38 Blood - Venous Blood Culture - Final No growth after 5 days. 01/11/25 22:38 Blood - Venous Blood Culture - Final No growth after 5 days. 01/09/25 06:28 Blood - Venous Blood Culture - Final No growth after 5 days. 01/09/25 06:28 Blood - Venous Blood Culture - Final No growth after 5 days. 01/11/25 22:19 Sputum - Suctioned Gram Stain - Final 01/11/25 22:19 Sputum - Suctioned Sputum Culture - Final 01/06/25 23:32 Blood - Venous Blood Culture - Final No growth after 5 days. 01/06/25 23:32 Blood - Venous Blood Culture - Final No growth after 5 days. Progress Note: A&P Assessment and plan (1) Obesity hypoventilation syndrome: Status: Acute (2) Pulmonary aspiration: Status: Acute (3) Acute on chronic respiratory failure with hypoxia and hypercapnia: Status: Acute (4) Muscle weakness: Status: Acute Plan Assessment: 44-year-old lady with underlying obesity hypoventilation admitted with dyspnea further complicated by acute on chronic hypercapnia, now with recurrent aspiration while on BiPAP support requiring several re-intubation. Plan: Neuro: No acute issues. Previously negative workup for myasthenia gravis. Additional neurological is negative including serologies and EMG. Does appear to have a myopathic process as patient is unable to sustain normal respiratory work without at least intermittent BiPAP support and keeps aspirating while on BiPAP support. Cardiac: No acute issues. Pulmonary: Recurrent acute on chronic hypercapnic respiratory failure secondary to iatrogenic hyperoxia requiring intubation and ventilatory support further complicated by CO2 narcosis associated pulmonary. Extubated 01/10/2025. Patient with pulmonary aspiration requiring emergent intubation thereafter with refractory hypoxemia requiring bedside bronchoscopy for secretion clearance on 01/11/2025, extubated 01/19/2025 with underlying respiratory muscle weakness with negative inspiratory force only at 8 cm of water. With recurrent pulmonary aspirations requiring re-intubation on 01/26/2025. Planned for tracheostomy/parenteral gastrostomy today. Renal: Acute kidney injury, resolved. Continue to monitor renal indices and urine output. Endo: No acute issues. GI: No acute issues. ID: No acute issues. Heme/Onc: No acute issues. Psych: No acute issues. Miscellaneous: No acute issues. Prophylaxis: Heparin, famotidine Diet: Tube feeds Quality Stroke Does the patient have a stroke diagnosis?: No VTE Prior VTE?: No VTE Risk Level:: Medical - moderate - high VTE Device Contraindication: Treatment Not Indicated VTE Drug Contraindication: N/A - Med Ordered
[2025-01-30 11:31] LABS: Glucose, Whole Blood 119 mg/dL (60-115)
--- NOTE | 2025-01-30 14:32 | PM.EVENT ---
Event Note Date of Service: 01/30/25 Event Note: Seen postop in the ICU Stable vital sign Tracheostomy in place, working well without any leak, no bleeding around stoma Peg tube in place Okay to start PEG feeds tomorrow Ventilator management as per ICU Family at bedside - I explained above and updated Time Spent With Patient Time: Total time managing care of this patient today ____ minutes.
--- NOTE | 2025-01-30 17:41 | PC.NURSE ---
Assumed care? @ 0700 S/P tracheostomy and peg placement day 0 Neuro: Sedated, Propofol per AUG, does not open eyes, does not follow commands, flaccid extremities (passive ROM performed)? Resp: Vent. support. Tacheostomy (Portex, adjustable flange) Cardiac: Sinus Rhythm on tele, Levophed gtt per AUG, MAP goal >65. GI: LBM 8/7, + bowel sounds, PEG clamp, POC Q6hr, on sliding scale insulin per AUG.? : External catheter in place, Patent/draining Skin: Impaired skin integrity - see skin assessment (repositioning maintained) (foam DGS applied) Temp: low grade fever, Ice packs placed? Lines: peripheral IVs.
[2025-01-30 17:45] LABS: Glucose, Whole Blood 100 mg/dL (60-115)
[2025-01-30] MEDS: Albuterol/Iprat 2.5/0.5MG 3 ML AMPUL.NEB INHALE (21:50)
[2025-01-30] MEDS: Furosemide 40 MG/4 ML VIAL IVPUSH (22:07)
[2025-01-30 22:27] LABS: MANUAL DIFF FLAG NO
[2025-01-30 22:28] LABS: VBG HCO3 20 mmol/L (22-26); VBG O2 % Saturation 74.0 %
[2025-01-30 22:28] LABS: Hematocrit 29.9 % (37.0-47.0); Hemoglobin 10.0 g/dl (12.0-16.0); Imm Gran Abs Auto 0.06 X10*3/uL (0.00-0.03); Imm Gran Pct Auto 0.7 % (0.0-0.4); Lymphocytes Absolute Auto 1.1 X10*3/uL (1.2-4.9); Mean Corpuscular HGB Conc 33.4 g/dl (31.0-35.0); Mean Corpuscular Hemoglobin 28.0 pg (27.0-33.0); Mean Corpuscular Volume 83.8 fL (80.0-98.0); NRBC Abs Auto 0.000 X10*3/uL (0.0-0.012); NRBC Pct Auto 0.0 /100WBC (0.0-0.2); Platelet Count 160 X10*3/uL (160-400); Red Blood Count 3.57 X10*6/uL (4.20-5.50); White Blood Count 9.1 X10*3/uL (4.8-10.8)
[2025-01-30 22:42] LABS: Albumin Level 3.6 g/dL (3.5-5.0); Anion Gap 17 (12-20); Blood Urea Nitrogen 8 mg/dL (9-16); Calcium 9.1 mg/dL (8.4-10.2); Carbon Dioxide 22 mmol/L (22-29); Chloride 110 mmol/L (96-108); Creatinine Clr Calc Pharmacy 190.1; Estimated Glomerular Filt Rate > 60; Magnesium 1.7 mg/dL (1.6-2.6); Potassium 3.6 mmol/L (3.3-5.1); Sodium 145 mmol/L (135-145)
[2025-01-31] VITALS (40 sets, daily range): BP systolic 80–141; BP diastolic 56–97; PULSE 12–128; RESP 16–28; TEMP 34.5–36.7; O2SAT 88–100; BMI 36.6
[2025-01-31 00:02] LABS: Glucose, Whole Blood 140 mg/dL (60-115)
[2025-01-31 00:26] LABS: Venous Blood Gas Refer to POC result
[2025-01-31] MEDS: Potassium Chloride/H20 10 MEQ/100 ML PIGGYBACK 100 MEQ IV ×5 (00:41→14:12)
[2025-01-31 04:11] LABS: HIV Num 1 0.09 S/CO (0.00-0.99)
[2025-01-31 06:01] LABS: Venous Blood Gas Refer to POC result
[2025-01-31 06:04] LABS: VBG HCO3 22 mmol/L (22-26); VBG O2 % Saturation 99.0 %
[2025-01-31 06:06] LABS: MANUAL DIFF FLAG NO
[2025-01-31 06:19] LABS: Hematocrit 31.3 % (37.0-47.0); Hemoglobin 10.7 g/dl (12.0-16.0); Imm Gran Abs Auto 0.10 X10*3/uL (0.00-0.03); Imm Gran Pct Auto 0.9 % (0.0-0.4); Lymphocytes Absolute Auto 1.7 X10*3/uL (1.2-4.9); Mean Corpuscular HGB Conc 34.2 g/dl (31.0-35.0); Mean Corpuscular Hemoglobin 28.4 pg (27.0-33.0); Mean Corpuscular Volume 83.0 fL (80.0-98.0); NRBC Abs Auto 0.000 X10*3/uL (0.0-0.012); NRBC Pct Auto 0.0 /100WBC (0.0-0.2); Platelet Count 237 X10*3/uL (160-400); Red Blood Count 3.77 X10*6/uL (4.20-5.50); White Blood Count 10.7 X10*3/uL (4.8-10.8)
[2025-01-31 06:25] LABS: Alanine Aminotransferase 19 U/L (0-31); Albumin Level 3.8 g/dL (3.5-5.0); Alkaline Phosphatase 119 U/L (39-117); Anion Gap 18 (12-20); Aspartate Amino Transferase 17 U/L (5-31); Blood Urea Nitrogen 8 mg/dL (9-16); Calcium 9.1 mg/dL (8.4-10.2); Carbon Dioxide 22 mmol/L (22-29); Chloride 108 mmol/L (96-108); Creatinine Clr Calc Pharmacy 172.5; Estimated Glomerular Filt Rate > 60; Magnesium 1.6 mg/dL (1.6-2.6); Potassium 3.1 mmol/L (3.3-5.1); Sodium 145 mmol/L (135-145); Total Protein 7.6 g/dL (6.5-8.0)
--- NOTE | 2025-01-31 07:07 | PC.NURSE ---
Upon initial assessment at 1999- pt sedated on propofol, RASS -3, PRN fentanyl given per AUG. NSR/ST 90-120s. Levophed titrated to maintain MAP > 65. #7.[address], on ACVC settings. At approx 2130, pt desatting to 82%- inline suctioned without effect. GED TEACHER Phillips and RT to bedside. Pt saline lavaged/bagged by RT without effect. Vent settings changed by RT to ACVC+, and PEEP/FiO2 increased to maintain SpO2 > 88. pCXR ordered and obtained. Lasix 40 mg IVP ordered and administered- see I&O. NPO- PEG clamped. No BM. Multiple skin integrity concerns- see wound/PI assessment. Repositioned in bed q2hr with pillows, wedges, and Isotour mattress. Bed locked in lowest position, alarm on. See EMR/flowsheet for further details.
[2025-01-31] MEDS: Albuterol/Iprat 2.5/0.5MG 3 ML AMPUL.NEB INHALE ×3 (07:50→20:28)
[2025-01-31] MEDS: Chlorhexidine Gluc Oral Rinse 15 ML MOUTHWASH BUCCAL ×3 (07:59→20:10)
[2025-01-31] MEDS: 0.9 % Sodium Chloride Flush 3 ML SYRINGE IVFLUSH ×3 (08:00→23:40)
--- NOTE | 2025-01-31 08:29 | P.PNGS_ITS ---
Subjective Subjective Date of Service: 01/31/25 Interval history: No events reported overnight Trach tube in place, good tidal volumes Physical Exam 2 Vital Signs: Vital Signs: Last Vital Signs Temp 97.1 F 01/31/25 08:00 Pulse 113 H 01/31/25 08:00 Resp 16 01/31/25 08:00 BP 93/64 01/31/25 08:00 Pulse Ox 96 01/31/25 08:00 O2 Del Method Mechanical Ventil ation 01/31/25 08:00 O2 Flow Rate 21 01/30/25 09:00 FiO2 21 01/31/25 08:00 Oxygen Flow Rate 45 01/22/25 12:00 BMI result Body Mass Index 36.6 Const: Other: More alert Resp: Other: On ventilator via the trach Cardio: Rhythm: regular rhythm GI: Other: Peg in place Palpation (GI): Soft to palpation and no guarding Objective Data Active Medications Acetaminophen (Acetaminophen 325 Mg Tablet) 650 mg PO Q6H PRN PRN Reason: Pain, Mild 1-3,fever,headache Last Admin: 01/23/25 15:53 Dose: 650 mg Documented By: CASSIE Albuterol/Ipratropium (Albuterol/Iprat 2.5/0.5mg 3 Ml Ampul.Neb) 3 ml INHALE RQ6H WHILE AWAKE [facility] Last Admin: 01/31/25 07:50 Dose: 3 ml Documented By: GEO Artificial Tears (Artificial Tears 15 Ml Drops) 2 drop EYE-BOTH Q4H PRN PRN Reason: Dry Eyes Chlorhexidine Gluconate (Chlorhexidine Gluc Oral Rinse 15 Ml Mouthwash) 15 ml BUCCAL TID [facility] Last Admin: 01/31/25 07:59 Dose: 15 ml Documented By: ORQUIDEA Enoxaparin Sodium (Enoxaparin Sodium 40 Mg/0.4 Ml Syringe) 40 mg SUBCUT Q24H [facility] Last Admin: 01/30/25 09:28 Dose: 40 mg Documented By: ORQUIDEA Famotidine (Famotidine/Pf 20 Mg/2 Ml Vial) 20 mg IVPUSH DAILY [facility] Last Admin: 01/31/25 07:59 Dose: 20 mg Documented By: ORQUIDEA Fentanyl (Fentanyl Citrate/Pf 100 Mcg/2 Ml Vial) 50 mcg IVPUSH Q2H PRN; Protocol PRN Reason: Pain, Moderate(Pain Scale 4-6) Last Admin: 01/31/25 06:05 Dose: 50 mcg Documented By: ERA Fluconazole (Fluconazole 100 Mg Tablet) 100 mg PO DAILY [facility] Stop: 02/04/25 09:01 Propofol (Diprivan) 1,000 mg in 100 mls @ 0 mls/hr IVCONT .Q0M [facility]; Protocol Last Admin: 01/31/25 06:01 Dose: 30 mcg/kg/min, 19.28 mls/hr Documented By: ERA Norepinephrine Bitartrate (Levophed) 8 mg in 250 mls @ 0 mls/hr IVCONT .Q0M RADHA; Protocol Last Titration: 01/31/25 05:06 Dose: 0.05 mcg/kg/min, 10.04 mls/hr Documented By: ERA Potassium Chloride (Potassium Chloride/H20) 10 meq in 100 mls @ 100 mls/hr IV Q1H [facility] Stop: 01/31/25 11:59 Last Admin: 01/31/25 08:00 Dose: 100 mls/hr Documented By: ORQUIDEA Insulin Human Lispro (Insulin Lispro 100 Unit/Ml 3 Ml Vial) 0 unit SUBCUT Q6H [facility]; Protocol Last Admin: 01/31/25 04:40 Dose: Not Given Documented By: ERA Non-Admin Reason: NPO Lactulose (Lactulose 20 Gm/30 Ml Solution) 30 gm PO DAILY PRN PRN Reason: constipation Levothyroxine Sodium (Levothyroxine Sodium 88 Mcg Tablet) 88 mcg PO DAILY@0600 [facility] Last Admin: 01/31/25 02:33 Dose: Not Given Documented By: ERA Non-Admin Reason: NPO Magnesium Hydroxide (Milk Of Magnesia 30 Ml Oral.Susp) 30 ml PO DAILY PRN PRN Reason: Constipation Naloxone HCl (Naloxone Hcl 0.4 Mg/Ml Vial) 0.04 mg IVPUSH Q5M PRN PRN Reason: Excessive sedation or RR < 8 Ondansetron HCl (Ondansetron Hcl 4 Mg/2 Ml Vial) 4 mg IVPUSH Q6H PRN PRN Reason: Nausea and Vomiting Last Admin: 01/24/25 13:51 Dose: 4 mg Documented By: HARSH Sodium Chloride (0.9 % Sodium Chloride Flush 3 Ml Syringe) 3 ml IVFLUSH QSHIFT [facility] Last Admin: 01/31/25 08:00 Dose: 3 ml Documented By: ORQUIDEA Labs 01/31/25 05:18 01/31/25 05:18 Labs: Laboratory Results - last 24 hr 01/30/25 01/30/25 01/30/25 11:14 15:44 17:37 MCV MCH MCHC RDW Plt Count MPV Immature Gran % (Auto) Neut % (Auto) Lymph % (Auto) [place] % (Auto) Eos % (Auto) Baso % (Auto) Lymph # (Auto) [place] # (Auto) Eos # (Auto) Baso # (Auto) Abs Immat Gran (auto) Absolute Neuts (auto) Absolute Nucleated RBC Nucleated RBC % (auto) VBG pH VBG pCO2 VBG pO2 VBG HCO3 VBG O2 Saturation VBG Base Excess Anion Gap Estim Creat Clear Calc Estimated GFR POC Glucose 119 H 100 Random Glucose Lactic Acid Calcium Phosphorus Magnesium Total Bilirubin AST ALT Alkaline Phosphatase Total Protein Albumin HIV 1&2 Ab/P24 Ag 4thGn Nonreactive 01/30/25 01/30/25 01/30/25 22:22 22:24 23:57 MCV 83.8 MCH 28.0 MCHC 33.4 RDW 15.5 Plt Count 160 MPV 9.9 Immature Gran % (Auto) 0.7 H Neut % (Auto) 79.3 H Lymph % (Auto) 11.5 L [place] % (Auto) 6.3 Eos % (Auto) 2.0 Baso % (Auto) 0.2 Lymph # (Auto) 1.1 L [place] # (Auto) 0.6 Eos # (Auto) 0.2 Baso # (Auto) 0.0 Abs Immat Gran (auto) 0.06 H Absolute Neuts (auto) 7.2 Absolute Nucleated RBC 0.000 Nucleated RBC % (auto) 0.0 VBG pH 7.44 H VBG pCO2 29 VBG pO2 49 VBG HCO3 20 L VBG O2 Saturation 74.0 VBG Base Excess -3.0 Anion Gap 17 Estim Creat Clear Calc 190.1 Estimated GFR > 60 POC Glucose 140 H Random Glucose 130 H Lactic Acid Calcium 9.1 Phosphorus 3.8 Magnesium 1.7 Total Bilirubin AST ALT Alkaline Phosphatase Total Protein Albumin 3.6 HIV 1&2 Ab/P24 Ag 4thGn 08/13/25 08/13/25 08/13/25 00:34 05:18 05:59 MCV 83.0 MCH 28.4 MCHC 34.2 RDW 15.3 Plt Count 237 D MPV 10.0 Immature Gran % (Auto) 0.9 H Neut % (Auto) 74.9 H Lymph % (Auto) 15.7 L [place] % (Auto) 6.1 Eos % (Auto) 1.9 Baso % (Auto) 0.5 Lymph # (Auto) 1.7 [place] # (Auto) 0.7 Eos # (Auto) 0.2 Baso # (Auto) 0.1 Abs Immat Gran (auto) 0.10 H Absolute Neuts (auto) 8.0 Absolute Nucleated RBC 0.000 Nucleated RBC % (auto) 0.0 VBG pH 7.47 H VBG pCO2 30 VBG pO2 162 VBG HCO3 22 VBG O2 Saturation 99.0 VBG Base Excess -0.1 Anion Gap 18 Estim Creat Clear Calc 172.5 Estimated GFR > 60 POC Glucose Random Glucose 139 H Lactic Acid 1.6 Calcium 9.1 Phosphorus 3.6 Magnesium 1.6 Total Bilirubin 0.4 AST 17 ALT 19 Alkaline Phosphatase 119 H Total Protein 7.6 Albumin 3.8 HIV 1&2 Ab/P24 Ag 4thGn Procedures Date of Service Date of Service: 01/31/25 Progress Note: A&P Assessment and plan (1) Obesity hypoventilation syndrome: Status: Acute Assessment and Plan: Status post PEG and trach Good tidal volumes, O2 sats Continue vent management Okay to start PEG feeds today with slow rate Keep external bolster of peg tube snug on skin Care as per ICU service Time Spent With Patient Time: Total time managing care of this patient today ____ minutes. Quality Stroke Does the patient have a stroke diagnosis?: No VTE Prior VTE?: No VTE Risk Level:: Medical - moderate - high VTE Device Contraindication: Treatment Not Indicated VTE Drug Contraindication: N/A - Med Ordered
--- NOTE | 2025-01-31 09:51 | P.PNCC_ITS ---
Subjective Subjective Date of Service: 01/31/25 Interval History: 44-year-old lady with underlying morbid obesity with obesity hyperventilation, PCOS, panic disorder, hypothyroidism admitted on 01/07/2025 with dyspnea to telemetry [facility] in treated empirically for community-acquired pneumonia. Hospital course further complicated by iatrogenic hyperoxia resulting in acute hypercapnia requiring BiPAP support. Patient transferred to telemetry [facility] on 01/08/2025. Overnight patient with another episode you iatrogenic hyperoxia with resultant hypercapnia requiring intubation with ventilatory support and transfer to intensive care unit, further complicated by CO2 narcosis associated aspiration. Extubated uneventfully on 01/10/2025. Overnight with pulmonary aspiration requiring emergent intubation, thereafter with hypoxia refractory to ventilatory support requiring emergent bedside bronchoscopy with secretion clearance with improvement in oxygenation. EMG with no evidence of myopathy. Extubated on 01/19/2025. Continues to require BiPAP support on and off. Overall with what appears to be poor respiratory strength resulting in recurrent aspirations while on BiPAP support necessitating re-intubation overnight on 01/26/2025. Status post tracheostomy/gastrostomy on 01/30/2025. No events overnight. Critical Care Time (minutes): 45 Physical Exam 2 Vital Signs: Vital Signs: Last Vital Signs Temp 97.1 F 01/31/25 09:00 Pulse 106 H 01/31/25 09:00 Resp 16 01/31/25 09:00 BP 119/76 01/31/25 09:00 Pulse Ox 93 01/31/25 09:00 O2 Del Method Mechanical Ventil ation 01/31/25 09:00 O2 Flow Rate 21 01/30/25 09:00 FiO2 21 01/31/25 09:00 Oxygen Flow Rate 45 01/22/25 12:00 BMI result Body Mass Index 36.6 Const: General: no acute distress, alert and awake Eyes: Sclerae: sclerae normal EOM: EOMs intact bilaterally Neck: Neck: Yes no lymphadenopathy, Yes trachea midline, Yes supple and Yes tracheostomy present (On vent) Resp: Auscultation: clear to auscultation bilaterally Cardio: Rate: tachycardic Rhythm: regular rhythm Heart sounds: no gallops, no murmurs and no rubs GI: Inspection: Yes G-tube present Palpation (GI): Soft to palpation and Other GI palpation findings present ( Nontender) Auscultation: normal bowel sounds Extrem: General: Yes no pedal edema, No clubbing and No cyanosis Objective Data Labs 01/31/25 05:18 01/31/25 05:18 Labs: Laboratory Results - last 24 hr 01/30/25 01/30/25 01/30/25 11:14 15:44 17:37 WBC RBC Hgb Hct MCV MCH MCHC RDW Plt Count MPV Immature Gran % (Auto) Neut % (Auto) Lymph % (Auto) [place] % (Auto) Eos % (Auto) Baso % (Auto) Lymph # (Auto) [place] # (Auto) Eos # (Auto) Baso # (Auto) Abs Immat Gran (auto) Absolute Neuts (auto) Absolute Nucleated RBC Nucleated RBC % (auto) VBG pH VBG pCO2 VBG pO2 VBG HCO3 VBG O2 Saturation VBG Base Excess Sodium Potassium Chloride Carbon Dioxide Anion Gap BUN Creatinine Estim Creat Clear Calc Estimated GFR POC Glucose 119 H 100 Random Glucose Lactic Acid Calcium Phosphorus Magnesium Total Bilirubin AST ALT Alkaline Phosphatase Total Protein Albumin HIV 1&2 Ab/P24 Ag 4thGn Nonreactive 01/30/25 01/30/25 01/30/25 22:22 22:24 23:57 WBC 9.1 RBC 3.57 L Hgb 10.0 L Hct 29.9 L MCV 83.8 MCH 28.0 MCHC 33.4 RDW 15.5 Plt Count 160 MPV 9.9 Immature Gran % (Auto) 0.7 H Neut % (Auto) 79.3 H Lymph % (Auto) 11.5 L [place] % (Auto) 6.3 Eos % (Auto) 2.0 Baso % (Auto) 0.2 Lymph # (Auto) 1.1 L [place] # (Auto) 0.6 Eos # (Auto) 0.2 Baso # (Auto) 0.0 Abs Immat Gran (auto) 0.06 H Absolute Neuts (auto) 7.2 Absolute Nucleated RBC 0.000 Nucleated RBC % (auto) 0.0 VBG pH 7.44 H VBG pCO2 29 VBG pO2 49 VBG HCO3 20 L VBG O2 Saturation 74.0 VBG Base Excess -3.0 Sodium 145 Potassium 3.6 Chloride 110 H Carbon Dioxide 22 Anion Gap 17 BUN 8 L Creatinine 0.43 L Estim Creat Clear Calc 190.1 Estimated GFR > 60 POC Glucose 140 H Random Glucose 130 H Lactic Acid Calcium 9.1 Phosphorus 3.8 Magnesium 1.7 Total Bilirubin AST ALT Alkaline Phosphatase Total Protein Albumin 3.6 HIV 1&2 Ab/P24 Ag 4thGn 01/31/25 01/31/25 01/31/25 00:34 05:18 05:59 WBC 10.7 RBC 3.77 L Hgb 10.7 L Hct 31.3 L MCV 83.0 MCH 28.4 MCHC 34.2 RDW 15.3 Plt Count 237 D MPV 10.0 Immature Gran % (Auto) 0.9 H Neut % (Auto) 74.9 H Lymph % (Auto) 15.7 L [place] % (Auto) 6.1 Eos % (Auto) 1.9 Baso % (Auto) 0.5 Lymph # (Auto) 1.7 [place] # (Auto) 0.7 Eos # (Auto) 0.2 Baso # (Auto) 0.1 Abs Immat Gran (auto) 0.10 H Absolute Neuts (auto) 8.0 Absolute Nucleated RBC 0.000 Nucleated RBC % (auto) 0.0 VBG pH 7.47 H VBG pCO2 30 VBG pO2 162 VBG HCO3 22 VBG O2 Saturation 99.0 VBG Base Excess -0.1 Sodium 145 Potassium 3.1 L Chloride 108 Carbon Dioxide 22 Anion Gap 18 BUN 8 L Creatinine 0.46 L Estim Creat Clear Calc 172.5 Estimated GFR > 60 POC Glucose Random Glucose 139 H Lactic Acid 1.6 Calcium 9.1 Phosphorus 3.6 Magnesium 1.6 Total Bilirubin 0.4 AST 17 ALT 19 Alkaline Phosphatase 119 H Total Protein 7.6 Albumin 3.8 HIV 1&2 Ab/P24 Ag 4thGn Microbiology Microbiology Results: Microbiology 01/11/25 22:38 Blood - Venous Blood Culture - Final No growth after 5 days. 01/11/25 22:38 Blood - Venous Blood Culture - Final No growth after 5 days. 01/09/25 06:28 Blood - Venous Blood Culture - Final No growth after 5 days. 01/09/25 06:28 Blood - Venous Blood Culture - Final No growth after 5 days. 01/11/25 22:19 Sputum - Suctioned Gram Stain - Final 01/11/25 22:19 Sputum - Suctioned Sputum Culture - Final 01/06/25 23:32 Blood - Venous Blood Culture - Final No growth after 5 days. 01/06/25 23:32 Blood - Venous Blood Culture - Final No growth after 5 days. Progress Note: A&P Assessment and plan (1) Muscle weakness: Status: Acute (2) Obesity hypoventilation syndrome: Status: Acute (3) Acute on chronic respiratory failure with hypoxia and hypercapnia: Status: Acute (4) Pulmonary aspiration: Status: Acute (5) Status post tracheostomy: Status: Acute (6) Status post gastrostomy: Status: Acute Plan Assessment: 44-year-old lady with underlying obesity hypoventilation admitted with dyspnea further complicated by acute on chronic hypercapnia, now with recurrent aspiration while on BiPAP support requiring several re-intubations. Plan: Neuro: No acute issues. Previously negative workup for myasthenia gravis. Additional neurological is negative including serologies and EMG. Does appear to have a myopathic process as patient is unable to sustain normal respiratory work without at least intermittent BiPAP support and keeps aspirating while on BiPAP support. Cardiac: No acute issues. Pulmonary: Recurrent acute on chronic hypercapnic respiratory failure secondary to iatrogenic hyperoxia requiring intubation and ventilatory support further complicated by CO2 narcosis associated pulmonary. Extubated 01/10/2025. Patient with pulmonary aspiration requiring emergent intubation thereafter with refractory hypoxemia requiring bedside bronchoscopy for secretion clearance on 01/11/2025, extubated 01/19/2025 with underlying respiratory muscle weakness with negative inspiratory force only at 8 cm of water. With recurrent pulmonary aspirations requiring re-intubation on 01/26/2025. Now status post tracheostomy on 01/30/2025, now weaning down to tracheal collar. Renal: Acute kidney injury, resolved. Continue to monitor renal indices and urine output. Endo: No acute issues. GI: No acute issues. ID: No acute issues. Heme/Onc: No acute issues. Psych: No acute issues. Miscellaneous: No acute issues. Prophylaxis: Heparin, famotidine Diet: Tube feeds Quality Stroke Does the patient have a stroke diagnosis?: No VTE Prior VTE?: No VTE Risk Level:: Medical - moderate - high VTE Device Contraindication: Treatment Not Indicated VTE Drug Contraindication: N/A - Med Ordered
--- NOTE | 2025-01-31 09:58 | HO.POSTANES ---
Post Anesthesia Evaluation Post Anesthesia Evaluation Date of Service: 01/31/25 Vital Signs: Vital Signs Temp Pulse Resp BP Pulse Ox O2 Del Method FiO2 01/31/25 09:00 97.1 F 106 H 16 119/76 93 Mechanical Ventilation 01/31/25 08:00 96 21 01/31/25 08:00 97.1 F 113 H 16 93/64 96 Mechanical Ventilation 01/31/25 07:58 97 16 01/31/25 07:54 21 01/31/25 07:00 101 H 16 107/74 93 Mechanical Ventilation 01/31/25 06:05 24 H 01/31/25 06:00 101 H 16 103/70 93 Mechanical Ventilation 01/31/25 05:06 100 141/93 H 01/31/25 05:00 103 H 16 121/86 95 Mechanical Ventilation 01/31/25 04:45 01/31/25 04:00 96.9 F 92 16 110/66 93 Mechanical Ventilation 01/31/25 03:58 93 01/31/25 03:00 94 16 101/73 93 Mechanical Ventilation 01/31/25 02:01 100 80/56 L 01/31/25 02:00 97 16 106/69 92 Mechanical Ventilation 01/31/25 01:26 20 01/31/25 01:00 114 H 16 107/68 95 Mechanical Ventilation 01/31/25 00:00 97.5 F 105 H 16 119/67 100 Mechanical Ventilation 01/31/25 00:00 30 01/30/25 23:22 118 H 79/38 L 01/30/25 23:15 30 01/30/25 23:00 108 H 16 100/69 96 Mechanical Ventilation 01/30/25 22:00 120 H 17 99/60 87 L Mechanical Ventilation 30 Anesthesia: General Mental Status: Sedated Pain Control: Satisfactory Nausea/Vomiting: None Hydration: Adequate Anesthesia-Related Issues: No Anes. Related Issues
--- NOTE | 2025-01-31 10:08 | MHC.CLN ---
F/U PT S/P TRACH/PEG X24 HOURS REVIEWED LABS DISCUSSED AT ROUNDS WITH MD-PLAN TO START TF RECOMMEND TF GLUCERNA 1.2 AT MAX GOAL RATE 55ML/HR WITH 240ML FREE WATER Q 8 HRS TO PROVIDE 1584KCALS (23KCALS/KG), 79G PROTEIN (1.1G/KG), 1783ML TOTAL WATER FROM FORMULA AND FLUSHES (26ML/KG) MONITOR TOLERANCE AND LYTES
--- NOTE | 2025-01-31 10:23 | MHC.SLORD ---
Speech Language Pathology Order Status: Pt s/p trach and PEG. DRUG ABUSE TECHNICIAN continues to follow, to consult as appropraite.
[2025-01-31 12:34] LABS: Glucose, Whole Blood 136 mg/dL (60-115)
--- NOTE | 2025-01-31 12:52 | HO.WOUND ---
Wound Consult: Follow up 44yr old?female admitted to [facility] on 01/07/25 07:11- See progress notes and H&P for detailed history.? Wound consult follow up for Bridge of nose and sacral area.? Patient remains in ICU level of care. Plan for up to chair waffle cushion to be used to aid in off loading coccyx and buttock. Bridge of Nose Etiology: ?Compounder Flavorings Related Deep Tissue Injury- continues to improve - no device in use at this time. Wound Bed: improving purple intact nonblanchable tissue Goals of Treatment: ? Continue to off load pressure Coccyx and Left Sacrum / Buttock - remains with improving scattered open areas to sacrum and coccyx area - no new topical recommendations needed at this time. Etiology: ?MASD Moisture Associated Skin Damage Goals of Treatment: Off Load Pressure and barrier cream / Triad Genital area assessment - Confirmed HSV outbreak - moisture managemtn continues to be goals of care. Right Heel Linear Lines - maroon intact. No topical recommendations needed at this time - area continues to evolve - remains intact and slightly blanchable - no devices in use with in the area - Etiology continues to be unknown. Recommendations: 1. Turn and Reposition every 2 hours and as needed for patient comfort.? Use pillows or wedges to support off loading positions. 2. Off Load all bony prominences with use of pillows and heel boots if needed.? Apply Preventative foams where needed. ? 3. Monitor for incontinence and moisture control, use barrier creams when needed for prevention and treatment. 4. Provide adequate and supplemental nutrition.? 5. Continue low air loss mattress. 6. When applicable maintain blood glucose levels per Providers order. Bridge of nose - Routine cleansing. Apply Skin prep be sure to avoid eyes allow to dry. Apply Foam dressing to pad skin from device. Change Daily and PRN. Coccyx - ?Off Load Pressure with Q2 hr turns and use of pillows - Cleanse with PH balance spray or wipes, pat dry. ?Apply thin layer of Triad to wound bed - only pat and dab no scrub and rub when soiling occurs. Reapply thin layer PRN after each episode of incontinence. Genital - Gently cleanse with routine cleansing, dry well. Keep dry and free from moisture. May use Interdry to translocate moisture from area. May use Ice Pack to sooth area if discomfort experienced. Re-consult wound care Nurse for wound deterioration or wound changes.
--- NOTE | 2025-01-31 14:15 | MHC.CM.PN ---
EMR REVIEWED, VENTED PT S/P TRACH/PEG TUBE PLACEMENT, PER REPORTS ANALYSIS MANAGER PT WILL LIKELY BE READY FOR DC TO LTAC IN ONE WEEK, [facility]RA UPDATED W/NEW CLINICALS, CM WILL CONT TO FOLLOW DC NEEDS.
--- NOTE | 2025-01-31 15:23 | PC.NURSE ---
Assumed care? @ 0700 S/P tracheostomy and PEG placement day 1 Neuro:? awake, positive cough, gag, and pain response, moves hands,communicating with a clip board,? following simple commands (passive ROM performed).OOB to chair for approx 4hrs Resp: Vent. support. Tacheostomy (Portex, adjustable flange), PSV trial for approx. 1hr Cardiac: Sinus Rhythm on tele, Levophed gtt per AUG, MAP goal >65. GI: Oral thrush fluconazole per AUG, LBM 8/7, + bowel sounds, PEG tube, tolerating TF without signs of intolerance,? POC Q6hr, on sliding scale insulin per AUG.? : External catheter in place, Patent/draining Skin: Impaired skin integrity - see skin assessment (repositioning maintained) (foam DGS applied) Temp: Afebrile Lines: peripheral IVs.
[2025-01-31 17:37] LABS: Glucose, Whole Blood 152 mg/dL (60-115)
[2025-01-31 23:33] LABS: Glucose, Whole Blood 163 mg/dL (60-115)
[2025-02-01] VITALS (35 sets, daily range): BP systolic 97–146; BP diastolic 67–94; PULSE 106–124; RESP 16–27; TEMP 34.6–37.5; O2SAT 90–97; BMI 36.6
[2025-02-01 05:49] LABS: Glucose, Whole Blood 202 mg/dL (60-115)
[2025-02-01 05:51] LABS: Venous Blood Gas Refer to POC result
[2025-02-01 05:55] LABS: VBG HCO3 21 mmol/L (22-26); VBG O2 % Saturation 99.0 %
[2025-02-01 06:03] LABS: MANUAL DIFF FLAG NO
[2025-02-01 06:26] LABS: Alanine Aminotransferase 29 U/L (0-31); Albumin Level 3.8 g/dL (3.5-5.0); Alkaline Phosphatase 143 U/L (39-117); Anion Gap 16 (12-20); Aspartate Amino Transferase 32 U/L (5-31); Blood Urea Nitrogen 9 mg/dL (9-16); Calcium 9.5 mg/dL (8.4-10.2); Carbon Dioxide 20 mmol/L (22-29); Chloride 109 mmol/L (96-108); Creatinine Clr Calc Pharmacy 176.3; Estimated Glomerular Filt Rate > 60; Magnesium 1.9 mg/dL (1.6-2.6); Potassium 3.8 mmol/L (3.3-5.1); Sodium 141 mmol/L (135-145); Total Protein 7.6 g/dL (6.5-8.0)
[2025-02-01 06:29] LABS: Hematocrit 31.1 % (37.0-47.0); Hemoglobin 10.6 g/dl (12.0-16.0); Imm Gran Abs Auto 0.09 X10*3/uL (0.00-0.03); Imm Gran Pct Auto 0.9 % (0.0-0.4); Lymphocytes Absolute Auto 0.9 X10*3/uL (1.2-4.9); Mean Corpuscular HGB Conc 34.1 g/dl (31.0-35.0); Mean Corpuscular Hemoglobin 28.3 pg (27.0-33.0); Mean Corpuscular Volume 82.9 fL (80.0-98.0); NRBC Abs Auto 0.000 X10*3/uL (0.0-0.012); NRBC Pct Auto 0.0 /100WBC (0.0-0.2); Platelet Count 238 X10*3/uL (160-400); Red Blood Count 3.75 X10*6/uL (4.20-5.50); White Blood Count 10.1 X10*3/uL (4.8-10.8)
--- NOTE | 2025-02-01 07:19 | PC.NURSE ---
Upon initial assessment at 1999- pt alert, follows commands, makes needs known. Communicates via phone/writing/mouthing words. Weakly moves BUE, BLE flaccid. C/o anxiety- given versed 1 mg IVP x1 with some effect. NSR/ST on tele, 90-120s. Levophed gtt titrated off- SBP > 90, MAP > 65. #7.[address]- see trach/vent assessment. PEG tube to mid upper abd, TF infusing/advancing to goal. Incontinent of large amount of stool. Voiding via purewick. Skin overall intact- see skin integrity assessment. Repositioned in bed q2hr with pillows, wedges, and Isotour bed. Bed locked in lowest position, alarm on, call lezama in reach. See EMR/flowsheet for further details.
[2025-02-01] MEDS: Albuterol/Iprat 2.5/0.5MG 3 ML AMPUL.NEB INHALE ×3 (08:09→20:53)
[2025-02-01] MEDS: 0.9 % Sodium Chloride Flush 3 ML SYRINGE IVFLUSH ×2 (10:12→16:12)
[2025-02-01] MEDS: Chlorhexidine Gluc Oral Rinse 15 ML MOUTHWASH BUCCAL ×3 (10:13→21:24)
--- NOTE | 2025-02-01 10:30 | PM.CCPN ---
Subjective Subjective Date of Service: 02/01/25 Interval History: 44-year-old lady with underlying morbid obesity with obesity hyperventilation, PCOS, panic disorder, hypothyroidism admitted on 01/07/2025 with dyspnea to telemetry [facility] in treated empirically for community-acquired pneumonia. Hospital course further complicated by iatrogenic hyperoxia resulting in acute hypercapnia requiring BiPAP support. Patient transferred to telemetry [facility] on 01/08/2025. Overnight patient with another episode you iatrogenic hyperoxia with resultant hypercapnia requiring intubation with ventilatory support and transfer to intensive care unit, further complicated by CO2 narcosis associated aspiration. Extubated uneventfully on 01/10/2025. Overnight with pulmonary aspiration requiring emergent intubation, thereafter with hypoxia refractory to ventilatory support requiring emergent bedside bronchoscopy with secretion clearance with improvement in oxygenation. EMG with no evidence of myopathy. Extubated on 01/19/2025. Continues to require BiPAP support on and off. Overall with what appears to be poor respiratory strength resulting in recurrent aspirations while on BiPAP support necessitating re-intubation overnight on 01/26/2025. Status post tracheostomy/gastrostomy on 01/30/2025. No events overnight. Critical Care Time (minutes): 45 Physical Exam Vital Signs: Vital Signs: Last Vital Signs Temp 97.1 F 02/01/25 10:00 Pulse 108 H 02/01/25 10:00 Resp 18 02/01/25 10:00 BP 103/73 02/01/25 10:00 Pulse Ox 96 02/01/25 10:00 O2 Del Method Mechanical Ventil ation 02/01/25 10:00 O2 Flow Rate 21 01/30/25 09:00 FiO2 21 02/01/25 10:00 Oxygen Flow Rate 45 01/22/25 12:00 BMI result Body Mass Index 36.6 Const: General: no acute distress, alert and awake HEENT: Head: Yes atraumatic Eyes: General: appearance normal, both eyes and all related structures Sclerae: sclerae normal EOM: EOMs intact bilaterally Neck: Neck: Yes supple and Yes tracheostomy present (On vent) Lymphatic: no lymphadenopathy noted Resp: Auscultation: clear to auscultation bilaterally Cardio: Rate: tachycardic Rhythm: regular rhythm Heart sounds: no gallops, no murmurs and no rubs GI: Inspection: Yes G-tube present Palpation (GI): Soft to palpation and nontender Auscultation: normal bowel sounds Skin: General skin exam: other ( warm) Extrem: General: No clubbing, No cyanosis and No edema Objective Data Labs 02/01/25 05:46 02/01/25 05:46 Labs: Laboratory Results - last 24 hr 01/31/25 01/31/25 01/31/25 12:28 17:31 23:29 WBC RBC Hgb Hct MCV MCH MCHC RDW Plt Count MPV Immature Gran % (Auto) Neut % (Auto) Lymph % (Auto) [place] % (Auto) Eos % (Auto) Baso % (Auto) Lymph # (Auto) [place] # (Auto) Eos # (Auto) Baso # (Auto) Abs Immat Gran (auto) Absolute Neuts (auto) Absolute Nucleated RBC Nucleated RBC % (auto) VBG pH VBG pCO2 VBG pO2 VBG HCO3 VBG O2 Saturation VBG Base Excess Sodium Potassium Chloride Carbon Dioxide Anion Gap BUN Creatinine Estim Creat Clear Calc Estimated GFR POC Glucose 136 H 152 H 163 H Random Glucose Calcium Phosphorus Magnesium Total Bilirubin AST ALT Alkaline Phosphatase Total Protein Albumin 02/01/25 02/01/25 05:46 05:50 WBC 10.1 RBC 3.75 L Hgb 10.6 L Hct 31.1 L MCV 82.9 MCH 28.3 MCHC 34.1 RDW 15.8 Plt Count 238 MPV 10.4 Immature Gran % (Auto) 0.9 H Neut % (Auto) 85.2 H Lymph % (Auto) 8.5 L [place] % (Auto) 4.4 Eos % (Auto) 0.7 Baso % (Auto) 0.3 Lymph # (Auto) 0.9 L [place] # (Auto) 0.5 Eos # (Auto) 0.1 Baso # (Auto) 0.0 Abs Immat Gran (auto) 0.09 H Absolute Neuts (auto) 8.6 H Absolute Nucleated RBC 0.000 Nucleated RBC % (auto) 0.0 VBG pH 7.48 H VBG pCO2 28 VBG pO2 123 VBG HCO3 21 L VBG O2 Saturation 99.0 VBG Base Excess -0.6 Sodium 141 Potassium 3.8 D Chloride 109 H Carbon Dioxide 20 L Anion Gap 16 BUN 9 Creatinine 0.45 L Estim Creat Clear Calc 176.3 Estimated GFR > 60 POC Glucose 202 H Random Glucose 201 H Calcium 9.5 Phosphorus 3.2 Magnesium 1.9 Total Bilirubin 0.7 AST 32 H ALT 29 Alkaline Phosphatase 143 H Total Protein 7.6 Albumin 3.8 Microbiology Microbiology Results: Microbiology 01/11/25 22:38 Blood - Venous Blood Culture - Final No growth after 5 days. 01/11/25 22:38 Blood - Venous Blood Culture - Final No growth after 5 days. 01/09/25 06:28 Blood - Venous Blood Culture - Final No growth after 5 days. 01/09/25 06:28 Blood - Venous Blood Culture - Final No growth after 5 days. 01/11/25 22:19 Sputum - Suctioned Gram Stain - Final 01/11/25 22:19 Sputum - Suctioned Sputum Culture - Final 01/06/25 23:32 Blood - Venous Blood Culture - Final No growth after 5 days. 01/06/25 23:32 Blood - Venous Blood Culture - Final No growth after 5 days. Progress Note: A&P Assessment and plan (1) Status post tracheostomy: Status: Acute (2) Status post gastrostomy: Status: Acute (3) Muscle weakness: Status: Acute (4) Acute on chronic respiratory failure with hypoxia and hypercapnia: Status: Acute (5) Pulmonary aspiration: Status: Acute Plan Assessment: 44-year-old lady with underlying obesity hypoventilation admitted with dyspnea further complicated by acute on chronic hypercapnia, now with recurrent aspiration while on BiPAP support requiring several re-intubations. Plan: Neuro: No acute issues. Previously negative workup for myasthenia gravis. Additional neurological is negative including serologies and EMG. Does appear to have a myopathic process as patient is unable to sustain normal respiratory work without at least intermittent BiPAP support and keeps aspirating while on BiPAP support. Cardiac: No acute issues. Pulmonary: Recurrent acute on chronic hypercapnic respiratory failure secondary to iatrogenic hyperoxia requiring intubation and ventilatory support further complicated by CO2 narcosis associated pulmonary. Extubated 01/10/2025. Patient with pulmonary aspiration requiring emergent intubation thereafter with refractory hypoxemia requiring bedside bronchoscopy for secretion clearance on 01/11/2025, extubated 01/19/2025 with underlying respiratory muscle weakness with negative inspiratory force only at 8 cm of water. With recurrent pulmonary aspirations requiring re-intubation on 01/26/2025. Now status post tracheostomy on 01/30/2025, with improving tolerance of ventilator weaning. Renal: Acute kidney injury, resolved. Continue to monitor renal indices and urine output. Endo: No acute issues. GI: No acute issues. ID: No acute issues. Heme/Onc: No acute issues. Psych: No acute issues. Miscellaneous: No acute issues. Prophylaxis: Heparin, famotidine Diet: Tube feeds Quality Stroke Does the patient have a stroke diagnosis?: No VTE Prior VTE?: No VTE Risk Level:: Medical - moderate - high VTE Device Contraindication: Treatment Not Indicated VTE Drug Contraindication: N/A - Med Ordered
[2025-02-01 12:28] LABS: Glucose, Whole Blood 175 mg/dL (60-115)
--- NOTE | 2025-02-01 14:33 | MHC.SLORD ---
Speech Language Pathology Order Status: Patient is s/p new tracheostomy & PEG tube, communicating w/ a clipboard per RN. Patient continues on vent support, swallow eval deferred until appropriate.
[2025-02-01 17:13] LABS: Glucose, Whole Blood 186 mg/dL (60-115)
[2025-02-01 18:26] LABS: Glucose, Whole Blood 150 mg/dL (60-115)
[2025-02-01 23:43] LABS: Glucose, Whole Blood 169 mg/dL (60-115)
[2025-02-02] VITALS (38 sets, daily range): BP systolic 112–148; BP diastolic 75–104; PULSE 92–126; RESP 16–27; TEMP 34.5–37.1; O2SAT 90–99; BMI 34.9
[2025-02-02] MEDS: 0.9 % Sodium Chloride Flush 3 ML SYRINGE IVFLUSH ×3 (00:06→17:43)
[2025-02-02 04:35] LABS: VBG HCO3 26 mmol/L (22-26); VBG O2 % Saturation 96.0 %
[2025-02-02 04:40] LABS: Venous Blood Gas Refer to POC result
[2025-02-02 04:57] LABS: MANUAL DIFF FLAG NO
[2025-02-02 05:00] LABS: Hematocrit 30.3 % (37.0-47.0); Hemoglobin 10.3 g/dl (12.0-16.0); Imm Gran Abs Auto 0.12 X10*3/uL (0.00-0.03); Imm Gran Pct Auto 0.8 % (0.0-0.4); Lymphocytes Absolute Auto 1.2 X10*3/uL (1.2-4.9); Mean Corpuscular HGB Conc 34.0 g/dl (31.0-35.0); Mean Corpuscular Hemoglobin 28.3 pg (27.0-33.0); Mean Corpuscular Volume 83.2 fL (80.0-98.0); NRBC Abs Auto 0.000 X10*3/uL (0.0-0.012); NRBC Pct Auto 0.0 /100WBC (0.0-0.2); Platelet Count 249 X10*3/uL (160-400); Red Blood Count 3.64 X10*6/uL (4.20-5.50); White Blood Count 14.6 X10*3/uL (4.8-10.8)
[2025-02-02 05:17] LABS: Albumin Level 3.5 g/dL (3.5-5.0); Anion Gap 17 (12-20); Blood Urea Nitrogen 14 mg/dL (9-16); Calcium 9.6 mg/dL (8.4-10.2); Carbon Dioxide 25 mmol/L (22-29); Chloride 105 mmol/L (96-108); Creatinine Clr Calc Pharmacy 203.4; Estimated Glomerular Filt Rate > 60; Magnesium 2.1 mg/dL (1.6-2.6); Potassium 3.7 mmol/L (3.3-5.1); Sodium 143 mmol/L (135-145)
[2025-02-02] MEDS: Albuterol/Iprat 2.5/0.5MG 3 ML AMPUL.NEB INHALE ×3 (07:53→19:04)
[2025-02-02] MEDS: Potassium Phosphate/NS 15 MMOL/250 ML PLAST..BAG 62.5 MMOL IV (08:57)
[2025-02-02] MEDS: Chlorhexidine Gluc Oral Rinse 15 ML MOUTHWASH BUCCAL ×3 (08:57→22:49)
[2025-02-02] MEDS: Potassium Chloride Packet 20 MEQ PACKET 40 MEQ PO (09:33)
[2025-02-02] MEDS: Furosemide 40 MG/4 ML VIAL IVPUSH (09:33)
--- NOTE | 2025-02-02 10:26 | P.PNCC_ITS ---
Subjective Subjective Date of Service: 02/02/25 Interval History: 44-year-old lady with underlying morbid obesity with obesity hyperventilation, PCOS, panic disorder, hypothyroidism admitted on 01/07/2025 with dyspnea to tele[facility] in treated empirically for community-acquired pneumonia. Hospital course further complicated by iatrogenic hyperoxia resulting in acute hypercapnia requiring BiPAP support. Patient transferred to tele[facility] on 01/08/2025. Overnight patient with another episode you iatrogenic hyperoxia with resultant hypercapnia requiring intubation with ventilatory support and transfer to intensive care unit, further complicated by CO2 narcosis associated aspiration. Extubated uneventfully on 01/10/2025. Overnight with pulmonary aspiration requiring emergent intubation, thereafter with hypoxia refractory to ventilatory support requiring emergent bedside bronchoscopy with secretion clearance with improvement in oxygenation. EMG with no evidence of myopathy. Extubated on 01/19/2025. Continues to require BiPAP support on and off. Overall with what appears to be poor respiratory strength resulting in recurrent aspirations while on BiPAP support necessitating re-intubation overnight on 01/26/2025. Status post tracheostomy/gastrostomy on 01/30/2025. With improving tolerance of ventilator weaning. No events overnight. Critical Care Time (minutes): 45 Physical Exam 2 Vital Signs: Vital Signs: Last Vital Signs Temp 97.6 F 02/02/25 09:00 Pulse 124 H 02/02/25 09:00 Resp 19 02/02/25 09:00 BP 127/88 02/02/25 09:33 Pulse Ox 97 02/02/25 09:00 O2 Del Method Mechanical Ventil ation 02/02/25 09:00 O2 Flow Rate 21 01/30/25 09:00 FiO2 21 02/02/25 09:00 Oxygen Flow Rate 45 01/22/25 12:00 BMI result Body Mass Index 34.9 Const: General: no acute distress and alert Nutritional Appearance: not obese Orientation/consciousness: Other orientation findings ( oriented) HEENT: Head: Yes atraumatic Eyes: General: appearance normal, both eyes and all related structures S clerae: sclerae normal EOM: EOMs intact bilaterally Neck: Neck: Yes supple and Yes tracheostomy present (On vent) Lymphatic: no lymphadenopathy noted Resp: Effort & Inspection: normal respiratory effort and no use of accessory muscles Auscultation: clear to auscultation bilaterally Cardio: Rate: tachycardic Rhythm: regular rhythm Heart sounds: no gallops, no murmurs and no rubs GI: Inspection: Yes G-tube present Skin: General skin exam: other ( warm) Extrem: General: No clubbing, No cyanosis and No edema Objective Data Labs 02/02/25 04:21 02/02/25 04:21 Labs: Laboratory Results - last 24 hr 02/01/25 02/01/25 02/01/25 12:23 17:06 18:18 WBC RBC Hgb Hct MCV MCH MCHC RDW Plt Count MPV Immature Gran % (Auto) Neut % (Auto) Lymph % (Auto) [place] % (Auto) Eos % (Auto) Baso % (Auto) Lymph # (Auto) [place] # (Auto) Eos # (Auto) Baso # (Auto) Abs Immat Gran (auto) Absolute Neuts (auto) Absolute Nucleated RBC Nucleated RBC % (auto) VBG pH VBG pCO2 VBG pO2 VBG HCO3 VBG O2 Saturation VBG Base Excess Sodium Potassium Chloride Carbon Dioxide Anion Gap BUN Creatinine Estim Creat Clear Calc Estimated GFR POC Glucose 175 H 186 H 150 H Random Glucose Calcium Phosphorus Magnesium Albumin 02/01/25 02/02/25 02/02/25 23:39 04:21 04:27 WBC 14.6 H RBC 3.64 L Hgb 10.3 L Hct 30.3 L MCV 83.2 MCH 28.3 MCHC 34.0 RDW 15.9 Plt Count 249 MPV 10.1 Immature Gran % (Auto) 0.8 H Neut % (Auto) 84.6 H Lymph % (Auto) 8.4 L [place] % (Auto) 4.9 Eos % (Auto) 1.1 Baso % (Auto) 0.2 Lymph # (Auto) 1.2 [place] # (Auto) 0.7 Eos # (Auto) 0.2 Baso # (Auto) 0.0 Abs Immat Gran (auto) 0.12 H Absolute Neuts (auto) 12.4 H Absolute Nucleated RBC 0.000 Nucleated RBC % (auto) 0.0 VBG pH 7.51 H VBG pCO2 32 VBG pO2 84 VBG HCO3 26 VBG O2 Saturation 96.0 VBG Base Excess 3.6 Sodium 143 Potassium 3.7 Chloride 105 Carbon Dioxide 25 Anion Gap 17 BUN 14 Creatinine 0.39 L Estim Creat Clear Calc 203.4 Estimated GFR > 60 POC Glucose 169 H Random Glucose 164 H Calcium 9.6 Phosphorus 2.3 L Magnesium 2.1 Albumin 3.5 Microbiology Microbiology Results: Microbiology 01/11/25 22:38 Blood - Venous Blood Culture - Final No growth after 5 days. 01/11/25 22:38 Blood - Venous Blood Culture - Final No growth after 5 days. 01/09/25 06:28 Blood - Venous Blood Culture - Final No growth after 5 days. 01/09/25 06:28 Blood - Venous Blood Culture - Final No growth after 5 days. 01/11/25 22:19 Sputum - Suctioned Gram Stain - Final 01/11/25 22:19 Sputum - Suctioned Sputum Culture - Final 01/06/25 23:32 Blood - Venous Blood Culture - Final No growth after 5 days. 01/06/25 23:32 Blood - Venous Blood Culture - Final No growth after 5 days. Progress Note: A&P Assessment and plan (1) Muscle weakness: Status: Acute (2) Obesity hypoventilation syndrome: Status: Acute (3) Acute on chronic respiratory failure with hypoxia and hypercapnia: Status: Acute (4) Pulmonary aspiration: Status: Acute Plan Assessment: 44-year-old lady with underlying obesity hypoventilation admitted with dyspnea further complicated by acute on chronic hypercapnia, now with recurrent aspiration while on BiPAP support requiring several re-intubations. Plan: Neuro: No acute issues. Previously negative workup for myasthenia gravis. Additional neurological is negative including serologies and EMG. Does appear to have a myopathic process as patient is unable to sustain normal respiratory work without at least intermittent BiPAP support and keeps aspirating while on BiPAP support. Cardiac: No acute issues. Pulmonary: Recurrent acute on chronic hypercapnic respiratory failure secondary to iatrogenic hyperoxia requiring intubation and ventilatory support further complicated by CO2 narcosis associated pulmonary. Extubated 01/10/2025. Patient with pulmonary aspiration requiring emergent intubation thereafter with refractory hypoxemia requiring bedside bronchoscopy for secretion clearance on 01/11/2025, extubated 01/19/2025 with underlying respiratory muscle weakness with negative inspiratory force only at 8 cm of water. With recurrent pulmonary aspirations requiring re-intubation on 01/26/2025. Now status post tracheostomy on 01/30/2025, with improving tolerance of ventilator weaning. Renal: Acute kidney injury, resolved. Continue to monitor renal indices and urine output. Endo: No acute issues. GI: No acute issues. ID: No acute issues. Heme/Onc: No acute issues. Psych: No acute issues. Miscellaneous: No acute issues. Prophylaxis: Heparin, famotidine Diet: Tube feeds Critical care time spent: 45 minutes Quality Stroke Does the patient have a stroke diagnosis?: No VTE Prior VTE?: No VTE Risk Level:: Medical - moderate - high VTE Device Contraindication: Treatment Not Indicated VTE Drug Contraindication: N/A - Med Ordered
--- NOTE | 2025-02-02 11:23 | MHC.CLN ---
F/U REVIEWED LABS DISCUSSED AT ROUNDS WITH CONTINUE TF GLUCERNA 1.2 AT MAX GOAL RATE 55ML/HR WITH 240ML FREE WATER Q 8 HRS PROVIDES 1584KCALS (23KCALS/KG), 79G PROTEIN (1.1G/KG), 1783ML TOTAL WATER FROM FORMULA AND FLUSHES (26ML/KG) MONITOR TOLERANCE AND LYTES
--- NOTE | 2025-02-02 14:20 | PC.NURSE ---
Addendum entered by Chiquita Gasca RN 02/02/25 19:30: Patient continued to have nausea this shift with inability to lay flat without triggering gag reflex and risk of aspiration. Purewick in place for incontinence. RT called for all bed mobility repositioning. PRN zofran and prn Reglan administered pre orders. Original Note: Assumed care of patient 0700. Patient up to [facility] chair per MD 08:30AM. 08:45 RT at bedside and started PSV trial 14/8.0, 21%. 09:30 Patient passed bowel movement. Patient disconnected from tube feeds to change [facility]. Patient cleaned with 2 techs and 1 RN stabilizing airway. While laying flat, patient has an episode of nausea and vomiting. Patient sat up to high fowlers, oral suctioning and inline suctioning provided. RT called to bedside STAT. Patient changed from PSV back to ACVC+ settings. PRN zofran given with minimal effect. Pt continues to state nausea. New order for PRN Reglan IVP given. Pt states relief of nausea. Tube feeds on hold for signs/symptoms of intolerance and per MD. Pt able to tolerate remaining up high fowlers in Evans chair 08:30-approx 14:30.
[2025-02-02 15:56] LABS: Glucose, Whole Blood 144 mg/dL (60-115)
--- NOTE | 2025-02-02 16:22 | MHC.CM.PN ---
EMR PT W/NEW TRACH/PEG TUBE REMAINS VENTED, PLAN FOR PT TO DC TO [facility] ONCE MEDICALLY CLEARED, CM WILL CONT TO FOLLOW DC NEEDS.
[2025-02-02 17:54] LABS: Glucose, Whole Blood 119 mg/dL (60-115)
[2025-02-03] VITALS (32 sets, daily range): BP systolic 91–148; BP diastolic 51–91; PULSE 79–118; RESP 16–34; TEMP 34.9–37.3; O2SAT 90–98; BMI 35.0
[2025-02-03 00:06] LABS: Glucose, Whole Blood 114 mg/dL (60-115)
[2025-02-03 04:41] LABS: MANUAL DIFF FLAG NO
[2025-02-03 04:41] LABS: VBG HCO3 27 mmol/L (22-26); VBG O2 % Saturation 92.0 %
[2025-02-03 04:53] LABS: Hematocrit 29.2 % (37.0-47.0); Hemoglobin 9.5 g/dl (12.0-16.0); Imm Gran Abs Auto 0.13 X10*3/uL (0.00-0.03); Imm Gran Pct Auto 1.1 % (0.0-0.4); Lymphocytes Absolute Auto 1.6 X10*3/uL (1.2-4.9); Mean Corpuscular HGB Conc 32.5 g/dl (31.0-35.0); Mean Corpuscular Hemoglobin 27.7 pg (27.0-33.0); Mean Corpuscular Volume 85.1 fL (80.0-98.0); NRBC Abs Auto 0.000 X10*3/uL (0.0-0.012); NRBC Pct Auto 0.0 /100WBC (0.0-0.2); Platelet Count 277 X10*3/uL (160-400); Red Blood Count 3.43 X10*6/uL (4.20-5.50); White Blood Count 11.5 X10*3/uL (4.8-10.8)
[2025-02-03 05:01] LABS: Albumin Level 3.5 g/dL (3.5-5.0); Anion Gap 20 (12-20); Blood Urea Nitrogen 14 mg/dL (9-16); Calcium 9.4 mg/dL (8.4-10.2); Carbon Dioxide 26 mmol/L (22-29); Chloride 102 mmol/L (96-108); Creatinine Clr Calc Pharmacy 179.9; Estimated Glomerular Filt Rate > 60; Magnesium 2.0 mg/dL (1.6-2.6); Potassium 3.8 mmol/L (3.3-5.1); Sodium 144 mmol/L (135-145)
--- NOTE | 2025-02-03 06:09 | PC.NURSE ---
Pt nauseous, gagging and burping, requiring nausea medications (see mar), pt states does not want glucerna, Car Porter at bedside to speak with patient, willing to try another tube feed but feels glucerna is the cause of the nausea. plan of care continues.
[2025-02-03] MEDS: Albuterol/Iprat 2.5/0.5MG 3 ML AMPUL.NEB INHALE ×3 (07:51→19:01)
[2025-02-03 08:58] LABS: Venous Blood Gas Refer to POC result
[2025-02-03] MEDS: 0.9 % Sodium Chloride Flush 3 ML SYRINGE IVFLUSH ×2 (09:01→15:49)
[2025-02-03] MEDS: Chlorhexidine Gluc Oral Rinse 15 ML MOUTHWASH BUCCAL ×2 (09:30→15:49)
--- NOTE | 2025-02-03 09:40 | PM.NEUROCN ---
History of Present Illness Data of Consult Service Date: 02/03/25 Primary Care Provider: Sunitha Rosales MD HPI Reason for consult: Generalized weakness 44 years old woman with complex neuropsychiatric history admitted with generalized weakness and unable to maintain airway. She has been in ICU for awhile and had tracheostomy done. There was suspicion of neuromuscular disorder though she never had any ptosis or complain of double vision. Generalized weakness as was noted. Her speech was soft but at this time she was not able to speak because of trach. Review of Systems Review of Systems: No double vision or ptosis PMFSH Past Medical History Medical History (Updated 02/03/25 @ 09:44 by Argenis Ulloa MD) Generalized weakness Foot drop, left Constipation Mass of left foot IBS (irritable colon syndrome) Morbid obesity with BMI of 45.0-49.9, adult GERD with esophagitis DMII (diabetes mellitus, type 2) Fibroadenoma of breast Fibromyalgia Hypothyroid PCOS (polycystic ovarian syndrome) PTSD (post-traumatic stress disorder) Family History Family History Father Acral gangrene Mother Cancer Father Diabetes Gangrene Mother Diabetes Hypertension Thyroid disease Cervical cancer Dementia Son In good health Maternal Grandmother Breast cancer Sister Breast cancer Other Mental health disorder Surgical History Surgical History (Updated 01/31/25 @ 09:53 by Duy Valdovinos MD) History of excision of mass (08/07/22) History of esophagogastroduodenoscopy (EGD) History of D&C History of hand surgery History of section History of lumpectomy of right breast History of appendectomy Hx of appendectomy Social History Social History Household Members: Spouse Housing: Shelter Housing Other:: 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, 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 Alcohol intake: never Patient Tobacco Use Status: Never used Tobacco Advance Directives Date on File: 07/21/24 Current occupational status: disabled Sexual orientation: Straight/Heterosexual Gender identity: Female Meds Allergies Allergy/AdvReac Type Severity Reaction Status Date / Time metronidazole (From FLAGYL) Allergy Severe CHEST PAIN Verified 01/06/25 19:39 TO LEFT SHOULDER, bacitracin (BACITRACIN) Allergy Intermediate BURNING, Verified 01/06/25 19:39 ITCHING risperidone (From Risperdal) Allergy Intermediate high level Verified 01/06/25 19:39 prolactin aripiprazole (From Abilify) Allergy Mild ITCHING Verified 01/06/25 19:39 iopromide (From Ultravist) Allergy Mild DIZZY, DRY Verified 01/06/25 19:39 THROAT AND MOUTH Vistra 650 Allergy Intermediate attention Uncoded 08/21/24 02:46 issues Active Medications: Current Medications Acetaminophen (Acetaminophen 325 Mg Tablet) 650 mg PO Q6H PRN PRN Reason: Pain, Mild 1-3,fever,headache Last Admin: 02/02/25 08:57 Dose: 650 mg Albuterol/Ipratropium (Albuterol/Iprat 2.5/0.5mg 3 Ml Ampul.Neb) 3 ml INHALE RQ6H WHILE AWAKE [facility] Last Admin: 02/03/25 07:51 Dose: 3 ml Artificial Tears (Artificial Tears 15 Ml Drops) 2 drop EYE-BOTH Q4H PRN PRN Reason: Dry Eyes Chlorhexidine Gluconate (Chlorhexidine Gluc Oral Rinse 15 Ml Mouthwash) 15 ml BUCCAL TID [facility] Last Admin: 02/03/25 09:30 Dose: 15 ml Enoxaparin Sodium (Enoxaparin Sodium 40 Mg/0.4 Ml Syringe) 40 mg SUBCUT Q24H [facility] Last Admin: 02/03/25 09:30 Dose: 40 mg Famotidine (Famotidine/Pf 20 Mg/2 Ml Vial) 20 mg IVPUSH DAILY [facility] Last Admin: 02/03/25 08:52 Dose: 20 mg Fentanyl (Fentanyl Citrate/Pf 100 Mcg/2 Ml Vial) 50 mcg IVPUSH Q2H PRN; Protocol PRN Reason: Pain, Moderate(Pain Scale 4-6) Last Admin: 01/31/25 23:45 Dose: 50 mcg Fluconazole (Fluconazole 100 Mg Tablet) 100 mg PO DAILY [facility] Stop: 02/04/25 09:01 Last Admin: 02/03/25 09:30 Dose: 100 mg Hydroxyzine HCl (Hydroxyzine Hcl 50 Mg Tablet) 50 mg PO Q6H PRN PRN Reason: Anxiety Last Admin: 02/02/25 00:05 Dose: 50 mg Norepinephrine Bitartrate (Levophed) 8 mg in 250 mls @ 0 mls/hr IVCONT .Q0M [facility]; Protocol Last Titration: 02/02/25 07:53 Dose: Infused Dexmedetomidine HCl (Precedex) 400 mcg in 100 mls @ 0 mls/hr IVCONT .Q0M [facility]; Protocol Insulin Human Lispro (Insulin Lispro 100 Unit/Ml 3 Ml Vial) 0 unit SUBCUT Q6H [facility]; Protocol Last Admin: 02/03/25 06:05 Dose: Not Given Lactulose (Lactulose 20 Gm/30 Ml Solution) 30 gm PO DAILY PRN PRN Reason: constipation Last Admin: 01/31/25 15:15 Dose: 30 gm Levothyroxine Sodium (Levothyroxine Sodium 88 Mcg Tablet) 88 mcg PO DAILY@0600 [facility] Last Admin: 02/03/25 06:05 Dose: Not Given Magnesium Hydroxide (Milk Of Magnesia 30 Ml Oral.Susp) 30 ml PO DAILY PRN PRN Reason: Constipation Metoclopramide HCl (Metoclopramide Hcl 10 Mg/2 Ml Vial) 10 mg IVPUSH Q6H PRN PRN Reason: Nausea and Vomiting Last Admin: 02/03/25 03:32 Dose: 10 mg Naloxone HCl (Naloxone Hcl 0.4 Mg/Ml Vial) 0.04 mg IVPUSH Q5M PRN PRN Reason: Excessive sedation or RR < 8 Ondansetron HCl (Ondansetron Hcl 4 Mg/2 Ml Vial) 4 mg IVPUSH Q6H PRN PRN Reason: Nausea and Vomiting Last Admin: 02/03/25 08:52 Dose: 4 mg Sodium Chloride (0.9 % Sodium Chloride Flush 3 Ml Syringe) [facility] Last Admin: 02/03/25 09:01 Dose: 3 ml Home Medications ?Medication ?Instructions ?Recorded ?Confirmed ?Last Taken ?Type galcanezumab-gnlm 120 mg/mL 120 mg subcut QMONTH 05/08/20 01/07/25 07/04/24 History subcutaneous pen injector (Emgality Pen) riboflavin (vitamin B2) 100 mg 200 mg PO BID 05/29/20 01/07/25 Unknown History tablet atorvastatin 10 mg tablet 40 mg PO BEDTIME 07/23/21 01/07/25 Unknown History chlorthalidone 25 mg tablet 25 mg PO DAILY 07/30/21 01/07/25 Unknown History semaglutide 0.25 mg or 0.5 mg (2 0.5 mg subcut TH 06/24/23 01/07/25 12/28/24 History mg/3 mL) subcutaneous pen injector (Ozempic) lisinopril 10 mg tablet 10 mg PO DAILY 07/30/23 01/07/25 07/20/24 History acetaminophen 500 mg tablet 500 - 1,000 mg PO Q8H PRN Fever Or 01/07/25 01/07/25 Unknown History Pain celecoxib 200 mg capsule 200 mg PO BID PRN mild pain 01/07/25 01/07/25 Unknown History docusate sodium 100 mg capsule 100 mg PO BEDTIME 01/07/25 01/07/25 Unknown History (Stool Softener) hydroxyzine HCl 25 mg tablet 25 mg PO BID PRN Anxiety 01/07/25 01/07/25 Unknown History ibuprofen 400 mg tablet 400 mg PO Q6H PRN Pain 01/07/25 01/07/25 Unknown History loratadine 10 mg tablet 10 mg PO BEDTIME PRN Allergy 01/07/25 01/07/25 Unknown History Symptoms olmesartan 5 mg tablet 5 mg PO DAILY 01/07/25 01/07/25 Unknown History Physical Exam Vital Signs: Vital Signs: Last Vital Signs Temp 97.3 F 02/03/25 09:00 Pulse 97 02/03/25 09:00 Resp 16 02/03/25 09:00 BP 119/81 02/03/25 09:00 Pulse Ox 95 02/03/25 09:00 O2 Del Method Mechanical Ventil ation 02/03/25 09:00 O2 Flow Rate 21 01/30/25 09:00 FiO2 21 02/03/25 09:00 Oxygen Flow Rate 45 01/22/25 12:00 BMI result Body Mass Index 35.0 Neuro: Other: She is alert and awake recognize me smiled and followed commands. There was no ptosis. Extraocular muscles were intact. There was no significant facial weakness. Smiled was symmetrical. Tongue was midline. She did not move her toes or legs what was moving her hands. There was moderate arm weakness. Deep tendon reflexes were absent. Results Labs 02/03/25 04:23 02/03/25 04:23 Labs: Short CBC 02/03/25 Range/Units 04:23 WBC 11.5 H (4.8-10.8) X10*3/uL Hgb 9.5 L (12.0-16.0) g/dl Hct 29.2 L (37.0-47.0) % Plt Count 277 (160-400) X10*3/uL BMP 02/03/25 04:23 Sodium 144 Potassium 3.8 Chloride 102 Carbon Dioxide 26 BUN 14 Creatinine 0.43 L Calcium 9.4 Liver Function 02/03/25 Range/Units 04:23 Albumin 3.5 (3.5-5.0) g/dL Microbiology Microbiology Results: Microbiology 01/11/25 22:38 Blood - Venous Blood Culture - Final No growth after 5 days. 01/11/25 22:38 Blood - Venous Blood Culture - Final No growth after 5 days. 01/09/25 06:28 Blood - Venous Blood Culture - Final No growth after 5 days. 01/09/25 06:28 Blood - Venous Blood Culture - Final No growth after 5 days. 01/11/25 22:19 Sputum - Suctioned Gram Stain - Final 01/11/25 22:19 Sputum - Suctioned Sputum Culture - Final 01/06/25 23:32 Blood - Venous Blood Culture - Final No growth after 5 days. 01/06/25 23:32 Blood - Venous Blood Culture - Final No growth after 5 days. Assessment and Plan (1) Generalized weakness: Status: Acute 44 years old woman with complex neuropsychiatric history has generalized weakness including inability to maintain airway for unknown reason at this time. Her prolonged stay in ICU might also have resulted in critical care neuropathy that might explain weakness of legs and arm but might not explain her inability to maintain airway. Overall clinical picture is not suggestive of neuromuscular disorder. Because of atypical nature of this case, a broad workup is recommended. I would start with laboratories and if that does not, with a lead, muscle biopsy is recommended. Sed rate, acetyl choline receptor antibody titers, Lyme serology, CPK, rheumatoid factor, double-stranded DNA titer, in aldolase level are recommended. EMG nerve conduction study can help to make diagnosis of critical care neuropathy but may not help much for myopathy. Procedures Date of Service Date of Service: 02/03/25
--- NOTE | 2025-02-03 10:21 | P.PNCC_ITS ---
Subjective Subjective Date of Service: 02/03/25 Interval History: 44-year-old lady with underlying morbid obesity with obesity hyperventilation, PCOS, panic disorder, hypothyroidism admitted on 01/07/2025 with dyspnea to telemetry [facility] in treated empirically for community-acquired pneumonia. Hospital course further complicated by iatrogenic hyperoxia resulting in acute hypercapnia requiring BiPAP support. Patient transferred to telemetry [facility] on 01/08/2025. Overnight patient with another episode you iatrogenic hyperoxia with resultant hypercapnia requiring intubation with ventilatory support and transfer to intensive care unit, further complicated by CO2 narcosis associated aspiration. Extubated uneventfully on 01/10/2025. Overnight with pulmonary aspiration requiring emergent intubation, thereafter with hypoxia refractory to ventilatory support requiring emergent bedside bronchoscopy with secretion clearance with improvement in oxygenation. EMG with no evidence of myopathy. Extubated on 01/19/2025. Continues to require BiPAP support on and off. Overall with what appears to be poor respiratory strength resulting in recurrent aspirations while on BiPAP support necessitating re-intubation overnight on 01/26/2025. Status post tracheostomy/gastrostomy on 01/30/2025. With improving tolerance of ventilator weaning. No events overnight. Critical Care Time (minutes): 45 Physical Exam 2 Vital Signs: Vital Signs: Last Vital Signs Temp 97.3 F 02/03/25 09:00 Pulse 97 02/03/25 09:00 Resp 16 02/03/25 09:00 BP 119/81 02/03/25 09:00 Pulse Ox 95 02/03/25 09:00 O2 Del Method Mechanical Ventil ation 02/03/25 09:00 O2 Flow Rate 21 01/30/25 09:00 FiO2 21 02/03/25 09:00 Oxygen Flow Rate 45 01/22/25 12:00 BMI result Body Mass Index 35.0 Const: General: no acute distress, alert and awake Eyes: Sclerae: sclerae normal EOM: EOMs intact bilaterally Neck: Neck: Yes no lymphadenopathy, Yes trachea midline, Yes supple and Yes tracheostomy present (On vent) Resp: Effort & Inspection: normal respiratory effort and no respiratory distress Auscultation: clear to auscultation bilaterally Cardio: Rate: tachycardic Rhythm: regular rhythm Heart sounds: no gallops, no murmurs and no rubs GI: Inspection: Yes G-tube present Palpation (GI): Soft to palpation and Other GI palpation findings present ( Nontender) Auscultation: normal bowel sounds Extrem: General: No clubbing, No cyanosis and Yes edema (Trace bilateral) Objective Data Labs 02/03/25 04:23 02/03/25 04:23 Labs: Laboratory Results - last 24 hr 02/02/25 02/02/25 02/02/25 12:11 17:50 23:49 WBC RBC Hgb Hct MCV MCH MCHC RDW Plt Count MPV Immature Gran % (Auto) Neut % (Auto) Lymph % (Auto) Richardson % (Auto) Eos % (Auto) Baso % (Auto) Lymph # (Auto) Richardson # (Auto) Eos # (Auto) Baso # (Auto) Abs Immat Gran (auto) Absolute Neuts (auto) Absolute Nucleated RBC Nucleated RBC % (auto) VBG pH VBG pCO2 VBG pO2 VBG HCO3 VBG O2 Saturation VBG Base Excess Sodium Potassium Chloride Carbon Dioxide Anion Gap BUN Creatinine Estim Creat Clear Calc Estimated GFR POC Glucose 144 H 119 H 114 Random Glucose Calcium Phosphorus Magnesium Albumin 02/03/25 02/03/25 04:23 04:36 WBC 11.5 H RBC 3.43 L Hgb 9.5 L Hct 29.2 L MCV 85.1 MCH 27.7 MCHC 32.5 RDW 16.2 H Plt Count 277 MPV 9.9 Immature Gran % (Auto) 1.1 H Neut % (Auto) 77.6 H Lymph % (Auto) 14.0 L Richardson % (Auto) 4.3 Eos % (Auto) 2.6 Baso % (Auto) 0.4 Lymph # (Auto) 1.6 Richardson # (Auto) 0.5 Eos # (Auto) 0.3 Baso # (Auto) 0.1 Abs Immat Gran (auto) 0.13 H Absolute Neuts (auto) 8.9 H Absolute Nucleated RBC 0.000 Nucleated RBC % (auto) 0.0 VBG pH 7.54 H VBG pCO2 31 VBG pO2 71 VBG HCO3 27 H VBG O2 Saturation 92.0 VBG Base Excess 5.4 Sodium 144 Potassium 3.8 Chloride 102 Carbon Dioxide 26 Anion Gap 20 BUN 14 Creatinine 0.43 L Estim Creat Clear Calc 179.9 Estimated GFR > 60 POC Glucose Random Glucose 112 Calcium 9.4 Phosphorus 2.7 Magnesium 2.0 Albumin 3.5 Microbiology Microbiology Results: Microbiology 01/11/25 22:38 Blood - Venous Blood Culture - Final No growth after 5 days. 01/11/25 22:38 Blood - Venous Blood Culture - Final No growth after 5 days. 01/09/25 06:28 Blood - Venous Blood Culture - Final No growth after 5 days. 01/09/25 06:28 Blood - Venous Blood Culture - Final No growth after 5 days. 01/11/25 22:19 Sputum - Suctioned Gram Stain - Final 01/11/25 22:19 Sputum - Suctioned Sputum Culture - Final 01/06/25 23:32 Blood - Venous Blood Culture - Final No growth after 5 days. 01/06/25 23:32 Blood - Venous Blood Culture - Final No growth after 5 days. Progress Note: A&P Assessment and plan (1) Muscle weakness: Status: Acute (2) Pulmonary aspiration: Status: Acute (3) Pulmonary edema: Status: Acute (4) Acute on chronic respiratory failure with hypoxia and hypercapnia: Status: Acute Plan Assessment: 44-year-old lady with underlying obesity hypoventilation admitted with dyspnea further complicated by acute on chronic hypercapnia, now with recurrent aspiration while on BiPAP support requiring several re-intubations. Plan: Neuro: No acute issues. Previously negative workup for myasthenia gravis. Additional neurological is negative including serologies and EMG. Does appear to have a myopathic process as patient is unable to sustain normal respiratory work without at least intermittent BiPAP support and keeps aspirating while on BiPAP support. Plan is for muscle biopsy. Cardiac: No acute issues. Pulmonary: Recurrent acute on chronic hypercapnic respiratory failure secondary to iatrogenic hyperoxia requiring intubation and ventilatory support further complicated by CO2 narcosis associated pulmonary. Extubated 01/10/2025. Patient with pulmonary aspiration requiring emergent intubation thereafter with refractory hypoxemia requiring bedside bronchoscopy for secretion clearance on 01/11/2025, extubated 01/19/2025 with underlying respiratory muscle weakness with negative inspiratory force only at 8 cm of water. With recurrent pulmonary aspirations requiring re-intubation on 01/26/2025. Now status post tracheostomy on 01/30/2025, with improving tolerance of ventilator weaning. Renal: Acute kidney injury, resolved. Continue to monitor renal indices and urine output. Endo: No acute issues. GI: No acute issues. ID: No acute issues. Heme/Onc: No acute issues. Psych: No acute issues. Miscellaneous: No acute issues. Prophylaxis: Heparin, famotidine Diet: Tube feeds Critical care time spent: 45 minutes Quality Stroke Does the patient have a stroke diagnosis?: No VTE Prior VTE?: No VTE Risk Level:: Medical - moderate - high VTE Device Contraindication: Treatment Not Indicated VTE Drug Contraindication: N/A - Med Ordered
[2025-02-03 12:20] LABS: Glucose, Whole Blood 96 mg/dL (60-115)
[2025-02-03 18:29] LABS: Glucose, Whole Blood 88 mg/dL (60-115)
[2025-02-04] VITALS (31 sets, daily range): BP systolic 106–138; BP diastolic 72–98; PULSE 88–117; RESP 10–19; TEMP 34.9–37; O2SAT 91–99; BMI 35.1
[2025-02-04] MEDS: 0.9 % Sodium Chloride Flush 3 ML SYRINGE IVFLUSH ×4 (00:19→23:52)
[2025-02-04] MEDS: Chlorhexidine Gluc Oral Rinse 15 ML MOUTHWASH BUCCAL ×3 (00:19→19:34)
[2025-02-04 00:27] LABS: Glucose, Whole Blood 85 mg/dL (60-115)
[2025-02-04 04:29] LABS: VBG HCO3 26 mmol/L (22-26); VBG O2 % Saturation 71.0 %
[2025-02-04 04:41] LABS: MANUAL DIFF FLAG NO
[2025-02-04 04:43] LABS: Hematocrit 28.4 % (37.0-47.0); Hemoglobin 9.2 g/dl (12.0-16.0); Imm Gran Abs Auto 0.12 X10*3/uL (0.00-0.03); Imm Gran Pct Auto 1.2 % (0.0-0.4); Lymphocytes Absolute Auto 1.6 X10*3/uL (1.2-4.9); Mean Corpuscular HGB Conc 32.4 g/dl (31.0-35.0); Mean Corpuscular Hemoglobin 27.8 pg (27.0-33.0); Mean Corpuscular Volume 85.8 fL (80.0-98.0); NRBC Abs Auto 0.000 X10*3/uL (0.0-0.012); NRBC Pct Auto 0.0 /100WBC (0.0-0.2); Platelet Count 290 X10*3/uL (160-400); Red Blood Count 3.31 X10*6/uL (4.20-5.50); White Blood Count 9.8 X10*3/uL (4.8-10.8)
[2025-02-04 05:04] LABS: Albumin Level 3.5 g/dL (3.5-5.0); Anion Gap 16 (12-20); Blood Urea Nitrogen 14 mg/dL (9-16); Calcium 9.3 mg/dL (8.4-10.2); Carbon Dioxide 25 mmol/L (22-29); Chloride 109 mmol/L (96-108); Creatinine Clr Calc Pharmacy 180.3; Estimated Glomerular Filt Rate > 60; Magnesium 2.0 mg/dL (1.6-2.6); Potassium 3.6 mmol/L (3.3-5.1); Sodium 146 mmol/L (135-145)
[2025-02-04 06:01] LABS: Venous Blood Gas Refer to POC result
[2025-02-04] MEDS: Albuterol/Iprat 2.5/0.5MG 3 ML AMPUL.NEB INHALE ×2 (07:31→19:04)
--- NOTE | 2025-02-04 09:50 | P.PNCC_ITS ---
Subjective Subjective Date of Service: 02/04/25 Interval History: 44-year-old lady with underlying morbid obesity with obesity hyperventilation, PCOS, panic disorder, hypothyroidism admitted on 01/07/2025 with dyspnea to telemetry [facility] in treated empirically for community-acquired pneumonia. Hospital course further complicated by iatrogenic hyperoxia resulting in acute hypercapnia requiring BiPAP support. Patient transferred to telemetry [facility] on 01/08/2025. Overnight patient with another episode you iatrogenic hyperoxia with resultant hypercapnia requiring intubation with ventilatory support and transfer to intensive care unit, further complicated by CO2 narcosis associated aspiration. Extubated uneventfully on 01/10/2025. Overnight with pulmonary aspiration requiring emergent intubation, thereafter with hypoxia refractory to ventilatory support requiring emergent bedside bronchoscopy with secretion clearance with improvement in oxygenation. EMG with no evidence of myopathy. Extubated on 01/19/2025. Continues to require BiPAP support on and off. Overall with what appears to be poor respiratory strength resulting in recurrent aspirations while on BiPAP support necessitating re-intubation overnight on 01/26/2025. Status post tracheostomy/gastrostomy on 01/30/2025. With improving tolerance of ventilator weaning. No events overnight. Critical Care Time (minutes): 45 Physical Exam 2 Vital Signs: Vital Signs: Last Vital Signs Temp 98.0 F 02/04/25 07:00 Pulse 105 H 02/04/25 09:00 Resp 18 02/04/25 09:00 BP 122/81 02/04/25 09:00 Pulse Ox 92 02/04/25 09:00 O2 Del Method Mechanical Ventil ation 02/04/25 09:00 O2 Flow Rate 21 01/30/25 09:00 FiO2 21 02/04/25 09:00 Oxygen Flow Rate 45 01/22/25 12:00 BMI result Body Mass Index 35.1 Const: General: no acute distress, alert and awake Eyes: Sclerae: sclerae normal EOM: EOMs intact bilaterally Neck: Neck: Yes no lymphadenopathy, Yes trachea midline, Yes supple and Yes tracheostomy present (On vent) Resp: Effort & Inspection: normal respiratory effort and no respiratory distress Auscultation: clear to auscultation bilaterally Cardio: Rate: regular rate Rhythm: regular rhythm Heart sounds: no gallops, no murmurs and no rubs GI: Inspection: Yes G-tube present Palpation (GI): Soft to palpation and Other GI palpation findings present ( Nontender) Auscultation: normal bowel sounds Extrem: General: No clubbing, No cyanosis and Yes edema (Trace bilateral) Objective Data Labs 02/04/25 04:20 02/04/25 04:13 Labs: Laboratory Results - last 24 hr 02/03/25 02/03/25 02/04/25 12:08 18:25 00:11 WBC RBC Hgb Hct MCV MCH MCHC RDW Plt Count MPV Immature Gran % (Auto) Neut % (Auto) Lymph % (Auto) Mcpherson % (Auto) Eos % (Auto) Baso % (Auto) Lymph # (Auto) Mcpherson # (Auto) Eos # (Auto) Baso # (Auto) Abs Immat Gran (auto) Absolute Neuts (auto) Absolute Nucleated RBC Nucleated RBC % (auto) VBG pH VBG pCO2 VBG pO2 VBG HCO3 VBG O2 Saturation VBG Base Excess Sodium Potassium Chloride Carbon Dioxide Anion Gap BUN Creatinine Estim Creat Clear Calc Estimated GFR POC Glucose 96 88 85 Random Glucose Calcium Phosphorus Magnesium Albumin 02/04/25 02/04/25 02/04/25 04:13 04:20 04:24 WBC 9.8 RBC 3.31 L Hgb 9.2 L Hct 28.4 L MCV 85.8 MCH 27.8 MCHC 32.4 RDW 16.1 H Plt Count 290 MPV 9.5 Immature Gran % (Auto) 1.2 H Neut % (Auto) 75.7 H Lymph % (Auto) 16.4 L Mcpherson % (Auto) 4.3 Eos % (Auto) 1.9 Baso % (Auto) 0.5 Lymph # (Auto) 1.6 Mcpherson # (Auto) 0.4 Eos # (Auto) 0.2 Baso # (Auto) 0.1 Abs Immat Gran (auto) 0.12 H Absolute Neuts (auto) 7.4 Absolute Nucleated RBC 0.000 Nucleated RBC % (auto) 0.0 VBG pH 7.50 H VBG pCO2 33 VBG pO2 49 VBG HCO3 26 VBG O2 Saturation 71.0 VBG Base Excess 3.2 Sodium 146 H Potassium 3.6 Chloride 109 H Carbon Dioxide 25 Anion Gap 16 BUN 14 Creatinine 0.43 L Estim Creat Clear Calc 180.3 Estimated GFR > 60 POC Glucose Random Glucose 93 Calcium 9.3 Phosphorus 3.8 Magnesium 2.0 Albumin 3.5 Microbiology Microbiology Results: Microbiology 01/11/25 22:38 Blood - Venous Blood Culture - Final No growth after 5 days. 01/11/25 22:38 Blood - Venous Blood Culture - Final No growth after 5 days. 01/09/25 06:28 Blood - Venous Blood Culture - Final No growth after 5 days. 01/09/25 06:28 Blood - Venous Blood Culture - Final No growth after 5 days. 01/11/25 22:19 Sputum - Suctioned Gram Stain - Final 01/11/25 22:19 Sputum - Suctioned Sputum Culture - Final 01/06/25 23:32 Blood - Venous Blood Culture - Final No growth after 5 days. 01/06/25 23:32 Blood - Venous Blood Culture - Final No growth after 5 days. Progress Note: A&P Assessment and plan (1) Hypothyroidism: Status: Acute (2) Status post tracheostomy: Status: Acute (3) Status post gastrostomy: Status: Acute (4) Obesity hypoventilation syndrome: Status: Acute (5) Acute and chronic respiratory failure with hypercapnia: Status: Acute (6) Muscle weakness: Status: Acute Plan Assessment: 44-year-old lady with underlying obesity hypoventilation admitted with dyspnea further complicated by acute on chronic hypercapnia, now with recurrent aspiration while on BiPAP support requiring several re-intubations. Plan: Neuro: No acute issues. Previously negative workup for myasthenia gravis. Additional neurological is negative including serologies and EMG. Does appear to have a myopathic process as patient is unable to sustain normal respiratory work without at least intermittent BiPAP support and keeps aspirating while on BiPAP support. Plan is for muscle biopsy. Cardiac: No acute issues. Pulmonary: Recurrent acute on chronic hypercapnic respiratory failure secondary to iatrogenic hyperoxia requiring intubation and ventilatory support further complicated by CO2 narcosis associated pulmonary. Extubated 01/10/2025. Patient with pulmonary aspiration requiring emergent intubation thereafter with refractory hypoxemia requiring bedside bronchoscopy for secretion clearance on 01/11/2025, extubated 01/19/2025 with underlying respiratory muscle weakness with negative inspiratory force only at 8 cm of water. With recurrent pulmonary aspirations requiring re-intubation on 01/26/2025. Now status post tracheostomy on 01/30/2025, with improving tolerance of ventilator weaning. Renal: Acute kidney injury, resolved. Continue to monitor renal indices and urine output. Endo: No acute issues. GI: No acute issues. ID: No acute issues. Heme/Onc: No acute issues. Psych: No acute issues. Miscellaneous: No acute issues. Prophylaxis: Heparin, famotidine Diet: Poor tolerance of Glucerna, switched to Promote Critical care time spent: 45 minutes Quality Stroke Does the patient have a stroke diagnosis?: No VTE Prior VTE?: No VTE Risk Level:: Medical - moderate - high VTE Device Contraindication: Treatment Not Indicated VTE Drug Contraindication: N/A - Med Ordered
[2025-02-04 12:08] LABS: Glucose, Whole Blood 92 mg/dL (60-115)
[2025-02-04 18:24] LABS: Glucose, Whole Blood 109 mg/dL (60-115)
--- NOTE | 2025-02-04 18:54 | PC.NURSE ---
New formula for tube feed ordered and started at 1200. Feed started at 20ml/h, after 4hrs patient was tolerating feeding and rate was increased per order to 30ml/hr. One episode of nausea/burping reported shortly after feed started, PRN nausea medication administered with good effect. Patient also c/o being hot, requesting cold compress to forehead, patient was also given a partial bed bath.
[2025-02-04 23:57] LABS: Glucose, Whole Blood 146 mg/dL (60-115)
[2025-02-05] VITALS (31 sets, daily range): BP systolic 92–127; BP diastolic 61–96; PULSE 76–107; RESP 10–22; TEMP 35.1–37.4; O2SAT 90–100; BMI 35.0
[2025-02-05 05:30] LABS: VBG HCO3 25 mmol/L (22-26); VBG O2 % Saturation 93.0 %
[2025-02-05 05:31] LABS: Venous Blood Gas Refer to POC result
[2025-02-05 05:51] LABS: Hematocrit 27.6 % (37.0-47.0); Hemoglobin 9.3 g/dl (12.0-16.0); Imm Gran Abs Auto 0.19 X10*3/uL (0.00-0.03); Imm Gran Pct Auto 1.7 % (0.0-0.4); Lymphocytes Absolute Auto 1.0 X10*3/uL (1.2-4.9); MANUAL DIFF FLAG NO; Mean Corpuscular HGB Conc 33.7 g/dl (31.0-35.0); Mean Corpuscular Hemoglobin 28.8 pg (27.0-33.0); Mean Corpuscular Volume 85.4 fL (80.0-98.0); NRBC Abs Auto 0.000 X10*3/uL (0.0-0.012); NRBC Pct Auto 0.0 /100WBC (0.0-0.2); Platelet Count 307 X10*3/uL (160-400); Red Blood Count 3.23 X10*6/uL (4.20-5.50); White Blood Count 11.3 X10*3/uL (4.8-10.8)
[2025-02-05 05:58] LABS: Glucose, Whole Blood 188 mg/dL (60-115)
[2025-02-05 06:10] LABS: Albumin Level 3.4 g/dL (3.5-5.0); Anion Gap 16 (12-20); Blood Urea Nitrogen 14 mg/dL (9-16); Calcium 9.3 mg/dL (8.4-10.2); Carbon Dioxide 23 mmol/L (22-29); Chloride 108 mmol/L (96-108); Creatinine Clr Calc Pharmacy 176.0; Estimated Glomerular Filt Rate > 60; Magnesium 1.9 mg/dL (1.6-2.6); Potassium 3.6 mmol/L (3.3-5.1); Sodium 143 mmol/L (135-145)
[2025-02-05] MEDS: Albuterol/Iprat 2.5/0.5MG 3 ML AMPUL.NEB INHALE ×3 (08:07→21:00)
[2025-02-05] MEDS: Potassium Chloride Packet 20 MEQ PACKET PO (08:50)
[2025-02-05] MEDS: 0.9 % Sodium Chloride Flush 3 ML SYRINGE IVFLUSH ×2 (08:51→16:20)
--- NOTE | 2025-02-05 08:54 | PM.CCPN ---
Subjective Subjective Date of Service: 02/05/25 Interval History: Continuous to be on ventilator support through tracheostomy Critical Care Time (minutes): 35 Physical Exam Vital Signs: Vital Signs: Last Vital Signs Temp 97.0 F 02/05/25 08:00 Pulse 93 02/05/25 08:12 Resp 17 02/05/25 08:12 BP 104/73 02/05/25 08:00 Pulse Ox 100 02/05/25 08:00 O2 Del Method Mechanical Ventil ation 02/05/25 08:00 O2 Flow Rate 21 01/30/25 09:00 FiO2 30 02/05/25 08:12 Oxygen Flow Rate 45 01/22/25 12:00 BMI result Body Mass Index 35.0 General: Middle-aged lady in acute distress, ill appearing and tired appearing Nutritional Appearance: well nourished and overweight Eyes: appearance normal, both eyes and all related structures; Alignment and Position: alignment normal and position normal Neck: No lymphadenopathy, no thyromegaly Resp: bilateral air entry equal, occasional added sounds present Cardio: Regular rate, regular rhythm; Heart sounds: S1 normal heart sound present and S2 normal heart sound present GI: soft, nontender, no guarding, no hepatosplenomegaly : bladder normal to inspection, bladder normal to palpation, no renal angle tenderness Skin: no rashes or lesions noted and elasticity normal Neuro: oriented to person, oriented to place, oriented to time and moves all extremities Objective Data Labs 02/05/25 05:26 02/05/25 05:26 Labs: Laboratory Results - last 24 hr 02/04/25 02/04/25 02/04/25 11:53 18:19 23:53 WBC RBC Hgb Hct MCV MCH MCHC RDW Plt Count MPV Immature Gran % (Auto) Neut % (Auto) Lymph % (Auto) [place] % (Auto) Eos % (Auto) Baso % (Auto) Lymph # (Auto) [place] # (Auto) Eos # (Auto) Baso # (Auto) Abs Immat Gran (auto) Absolute Neuts (auto) Absolute Nucleated RBC Nucleated RBC % (auto) VBG pH VBG pCO2 VBG pO2 VBG HCO3 VBG O2 Saturation VBG Base Excess Sodium Potassium Chloride Carbon Dioxide Anion Gap BUN Creatinine Estim Creat Clear Calc Estimated GFR POC Glucose 92 109 146 H Random Glucose Calcium Phosphorus Magnesium Albumin 02/05/25 02/05/25 05:26 05:54 WBC 11.3 H RBC 3.23 L Hgb 9.3 L Hct 27.6 L MCV 85.4 MCH 28.8 MCHC 33.7 RDW 16.0 Plt Count 307 MPV 9.3 L Immature Gran % (Auto) 1.7 H Neut % (Auto) 83.6 H Lymph % (Auto) 8.9 L [place] % (Auto) 3.8 Eos % (Auto) 1.7 Baso % (Auto) 0.3 Lymph # (Auto) 1.0 L [place] # (Auto) 0.4 Eos # (Auto) 0.2 Baso # (Auto) 0.0 Abs Immat Gran (auto) 0.19 H Absolute Neuts (auto) 9.5 H Absolute Nucleated RBC 0.000 Nucleated RBC % (auto) 0.0 VBG pH 7.59 H VBG pCO2 26 VBG pO2 72 VBG HCO3 25 VBG O2 Saturation 93.0 VBG Base Excess 5.0 Sodium 143 Potassium 3.6 Chloride 108 Carbon Dioxide 23 Anion Gap 16 BUN 14 Creatinine 0.44 L Estim Creat Clear Calc 176.0 Estimated GFR > 60 POC Glucose 188 H Random Glucose 186 H Calcium 9.3 Phosphorus 3.3 Magnesium 1.9 Albumin 3.4 L Microbiology Microbiology Results: Microbiology 01/11/25 22:38 Blood - Venous Blood Culture - Final No growth after 5 days. 01/11/25 22:38 Blood - Venous Blood Culture - Final No growth after 5 days. 01/09/25 06:28 Blood - Venous Blood Culture - Final No growth after 5 days. 01/09/25 06:28 Blood - Venous Blood Culture - Final No growth after 5 days. 01/11/25 22:19 Sputum - Suctioned Gram Stain - Final 01/11/25 22:19 Sputum - Suctioned Sputum Culture - Final 01/06/25 23:32 Blood - Venous Blood Culture - Final No growth after 5 days. 01/06/25 23:32 Blood - Venous Blood Culture - Final No growth after 5 days. Progress Note: A&P Assessment and plan (1) Acute on chronic respiratory failure with hypoxia and hypercapnia: Status: Acute (2) Obesity hypoventilation syndrome: Status: Acute (3) Pneumonia: Status: Acute (4) Hypothyroidism: Status: Acute Plan 44-year-old lady with underlying morbid obesity with obesity hyperventilation, PCOS, panic disorder, hypothyroidism admitted on 01/07/2025 with dyspnea to telemetry [facility] in treated empirically for community-acquired pneumonia. Hospital course further complicated by iatrogenic hyperoxia resulting in acute hypercapnia requiring BiPAP support. Patient transferred to telemetry [facility] on 01/08/2025. Overnight patient with another episode you iatrogenic hyperoxia with resultant hypercapnia requiring intubation with ventilatory support and transfer to intensive care unit, further complicated by CO2 narcosis associated aspiration. Extubated uneventfully on 01/10/2025. Overnight with pulmonary aspiration requiring emergent intubation, thereafter with hypoxia refractory to ventilatory support requiring emergent bedside bronchoscopy with secretion clearance with improvement in oxygenation. EMG with no evidence of myopathy. Extubated on 01/19/2025. Continues to require BiPAP support on and off. Overall with what appears to be poor respiratory strength resulting in recurrent aspirations while on BiPAP support necessitating re-intubation overnight on 01/26/2025. Status post tracheostomy/gastrostomy on 01/30/2025. With improving tolerance of ventilator weaning. Neuro: Neuro: Patient has history of a progressive neurological disorder for which she was undergoing evaluation. Apparently she developed weakness in her lower extremities along with difficulty in speech since last May that was progressive later developed urinary incontinence and was wheelchair-bound in October for which she was evaluated at [facility] and here. She underwent a MRI of the spine which did not show any acute abnormalities, initial blood workup were negative for, neuropathies. 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 EMG ruled out any acute or subacute neuropathies including myasthenia gravis or CIDP or GBS, possibly has a chronic neuropathy in the lower extremity. no sedation She is on empiric solumedrol 60mg q.8 hours with which we see some improvement in her respiratory efforts so we will continue on steroids. We will get a brain MRI once she is more stable. Respiratory: Acute hypoxemic respiratory failure due to neuromuscular disease currently status post tracheostomy on 01/30/2025 Currently on ventilator support through tracheostomy tube, we will wean to pressure support as tolerated On PRVC mode FiO2 30% PEEP 5, TV 300 RR 20. Will start on steroids and then place on pressure support tomorrow to see if we can wean from ventilator. Peak pressures and plateau pressures are under the curve Ventilator management bundle with head end elevation, aspiration precaution, chlorhexidine mouthwash, daily awakening trials, daily spontaneous breathing trials GI: On G-tube feeds Infectious disease: Pancultures negative Previously treated with empiric vanc and Zosyn Hypothyroidism: On levothyroxine Musculoskeletal: Decubitus ulcer prevention protocol Lines: Prophylaxis: Lovenox, famotidine Quality Stroke Does the patient have a stroke diagnosis?: No VTE Prior VTE?: No VTE Risk Level:: Medical - moderate - high VTE Device Contraindication: Treatment Not Indicated VTE Drug Contraindication: N/A - Med Ordered
--- NOTE | 2025-02-05 09:14 | MHC.SLORD ---
Speech Language Pathology Order Status: Pt remains on vent, [employer]END[employer] FINISHER to consult when appropriate.
[2025-02-05] MEDS: Chlorhexidine Gluc Oral Rinse 15 ML MOUTHWASH BUCCAL ×3 (10:12→21:54)
--- NOTE | 2025-02-05 10:38 | MHC.CLN ---
F/U REVIEWED LABS DISCUSSED AT ROUNDS WITH PT PREVIOUSLY RECEIVING TF GLUCERNA 1.2 AT MAX GOAL RATE 55ML/HR WITH 240ML FREE WATER Q 8 HRS PROVIDES 1584KCALS (23KCALS/KG), 79G PROTEIN (1.1G/KG), 1783ML TOTAL WATER FROM FORMULA AND FLUSHES (26ML/KG) TF SWITCHED BY PROVIDER PT NOW RECEIVING PROMOTE TF AT MAX GAOL RATE 55ML/HR WITH 240ML FREE WATER Q 8 HRS TO PROVIDE 1320KCALS (24KCALS/KG), 82.5G PROTEIN (1.5G/KG), 1827ML TOTAL WATER FROM FORMULA AND FLUSHES (33.5ML/KG) MONITOR TOLERANCE AND LYTES
[2025-02-05 12:15] LABS: Glucose, Whole Blood 150 mg/dL (60-115)
--- NOTE | 2025-02-05 13:46 | MHC.CM.PN ---
Pt continues care in ICU: s/p peg/trach and referred to [facility] for LTACH care. Clinical updates remitted. No plans for d/c at this time - pt has not begun trach collar trials. CM to follow
--- NOTE | 2025-02-05 14:33 | W.PM.IDCN ---
History of Present Illness Data of Consult Service Date: 02/05/25 Requesting physician: Jarrod Pagan Primary Care Provider: Sunitha Rosales MD HPI Reason for consult: lesions perineal area,encephalopathy She presents with shortness of breath,intubated,ICU transfer and extubated. She had general fatigue and malaise. She has no fever or chills She has felt improved but had some lesions groin,concerning for herpes simplex,culture grew and type pending. HSV 2 serologies positive HIV test was negative. Review of Systems Review of Systems: Yes all other systems are reviewed and are negative [facility], [facility] Past Medical History Medical History (Updated 02/05/25 @ 14:45 by Aubrie Cohen MD) Herpes virus disease Generalized weakness Foot drop, left Constipation Mass of left foot IBS (irritable colon syndrome) Morbid obesity with BMI of 45.0-49.9, adult GERD with esophagitis DMII (diabetes mellitus, type 2) Fibroadenoma of breast Fibromyalgia Hypothyroid PCOS (polycystic ovarian syndrome) PTSD (post-traumatic stress disorder) Family History Family History Father Acral gangrene Mother Cancer Father Diabetes Gangrene Mother Diabetes Hypertension Thyroid disease Cervical cancer Dementia Son In good health Maternal Grandmother Breast cancer Sister Breast cancer Other Mental health disorder Family history: reviewed and not pertinent Surgical History Surgical History History of excision of mass (08/07/22) History of esophagogastroduodenoscopy (EGD) History of D&C History of hand surgery History of section History of lumpectomy of right breast History of appendectomy Hx of appendectomy Social History Social History Household Members: Spouse Housing: Skilled Nursing Housing Other:: went for rehab nursing home, 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 Alcohol intake: never Patient Tobacco Use Status: Never used Tobacco Advance Directives Date on File: 07/21/24 Current occupational status: disabled Sexual orientation: Straight/Heterosexual Gender identity: Female Meds Allergies Allergy/AdvReac Type Severity Reaction Status Date / Time metronidazole (From FLAGYL) Allergy Severe CHEST PAIN Verified 01/06/25 19:39 TO LEFT SHOULDER, bacitracin (BACITRACIN) Allergy Intermediate BURNING, Verified 01/06/25 19:39 ITCHING risperidone (From Risperdal) Allergy Intermediate high level Verified 01/06/25 19:39 prolactin aripiprazole (From Abilify) Allergy Mild ITCHING Verified 01/06/25 19:39 iopromide (From Ultravist) Allergy Mild DIZZY, DRY Verified 01/06/25 19:39 THROAT AND MOUTH Vistra 650 Allergy Intermediate attention Uncoded 08/21/24 02:46 issues Active Medications: Current Medications Acetaminophen (Acetaminophen 325 Mg Tablet) 650 mg PO Q6H PRN PRN Reason: Pain, Mild 1-3,fever,headache Last Admin: 02/05/25 03:52 Dose: 650 mg Albuterol/Ipratropium (Albuterol/Iprat 2.5/0.5mg 3 Ml Ampul.Neb) 3 ml INHALE RQ6H WHILE AWAKE [facility] Last Admin: 02/05/25 08:07 Dose: 3 ml Artificial Tears (Artificial Tears 15 Ml Drops) 2 drop EYE-BOTH Q4H PRN PRN Reason: Dry Eyes Chlorhexidine Gluconate (Chlorhexidine Gluc Oral Rinse 15 Ml Mouthwash) 15 ml BUCCAL TID [facility] Last Admin: 02/05/25 10:12 Dose: 15 ml Enoxaparin Sodium (Enoxaparin Sodium 40 Mg/0.4 Ml Syringe) 40 mg SUBCUT Q24H [facility] Last Admin: 02/05/25 10:12 Dose: 40 mg Famotidine (Famotidine/Pf 20 Mg/2 Ml Vial) 20 mg IVPUSH DAILY [facility] Last Admin: 02/05/25 10:13 Dose: 20 mg Hydroxyzine HCl (Hydroxyzine Hcl 50 Mg Tablet) 50 mg PO Q6H PRN PRN Reason: Anxiety Last Admin: 02/05/25 03:52 Dose: 50 mg Norepinephrine Bitartrate (Levophed) 8 mg in 250 mls @ 0 mls/hr IVCONT .Q0M [facility]; Protocol Last Titration: 02/02/25 07:53 Dose: Infused Dexmedetomidine HCl (Precedex) 400 mcg in 100 mls @ 0 mls/hr IVCONT .Q0M [facility]; Protocol Insulin Human Lispro (Insulin Lispro 100 Unit/Ml 3 Ml Vial) 0 unit SUBCUT Q6H [facility]; Protocol Last Admin: 02/05/25 13:04 Dose: Not Given Lactulose (Lactulose 20 Gm/30 Ml Solution) 30 gm PO DAILY PRN PRN Reason: constipation Last Admin: 01/31/25 15:15 Dose: 30 gm Levothyroxine Sodium (Levothyroxine Sodium 88 Mcg Tablet) 88 mcg PO DAILY@0600 [facility] Last Admin: 02/05/25 06:08 Dose: 88 mcg Magnesium Hydroxide (Milk Of Magnesia 30 Ml Oral.Susp) 30 ml PO DAILY PRN PRN Reason: Constipation Methylprednisolone Sodium Succinate (Methylprednisolone Sod Succ 125 Mg/2 Ml Vial) 60 mg IVPUSH Q8H [facility] Last Admin: 02/05/25 10:13 Dose: 60 mg Metoclopramide HCl (Metoclopramide Hcl 10 Mg/2 Ml Vial) 10 mg IVPUSH Q6H PRN PRN Reason: Nausea and Vomiting Last Admin: 02/04/25 12:41 Dose: 10 mg Naloxone HCl (Naloxone Hcl 0.4 Mg/Ml Vial) 0.04 mg IVPUSH Q5M PRN PRN Reason: Excessive sedation or RR < 8 Ondansetron HCl (Ondansetron Hcl 4 Mg/2 Ml Vial) 4 mg IVPUSH Q6H PRN PRN Reason: Nausea and Vomiting Last Admin: 02/04/25 05:46 Dose: 4 mg Sodium Chloride (0.9 % Sodium Chloride Flush 3 Ml Syringe) [facility] Last Admin: 02/05/25 08:51 Dose: 3 ml Home Medications ?Medication ?Instructions ?Recorded ?Confirmed ?Last Taken ?Type galcanezumab-gnlm 120 mg/mL 120 mg subcut QMONTH 05/08/20 01/07/25 07/04/24 History subcutaneous pen injector (Emgality Pen) riboflavin (vitamin B2) 100 mg 200 mg PO BID 05/29/20 01/07/25 Unknown History tablet atorvastatin 10 mg tablet 40 mg PO BEDTIME 07/23/21 01/07/25 Unknown History chlorthalidone 25 mg tablet 25 mg PO DAILY 07/30/21 01/07/25 Unknown History semaglutide 0.25 mg or 0.5 mg (2 0.5 mg subcut TH 06/24/23 01/07/25 12/28/24 History mg/3 mL) subcutaneous pen injector (Ozempic) lisinopril 10 mg tablet 10 mg PO DAILY 07/30/23 01/07/25 07/20/24 History acetaminophen 500 mg tablet 500 - 1,000 mg PO Q8H PRN Fever Or 01/07/25 01/07/25 Unknown History Pain celecoxib 200 mg capsule 200 mg PO BID PRN mild pain 01/07/25 01/07/25 Unknown History docusate sodium 100 mg capsule 100 mg PO BEDTIME 01/07/25 01/07/25 Unknown History (Stool Softener) hydroxyzine HCl 25 mg tablet 25 mg PO BID PRN Anxiety 01/07/25 01/07/25 Unknown History ibuprofen 400 mg tablet 400 mg PO Q6H PRN Pain 01/07/25 01/07/25 Unknown History loratadine 10 mg tablet 10 mg PO BEDTIME PRN Allergy 01/07/25 01/07/25 Unknown History Symptoms olmesartan 5 mg tablet 5 mg PO DAILY 01/07/25 01/07/25 Unknown History Physical Exam Vital Signs: Vital Signs: Last Vital Signs Temp 97.2 F 02/05/25 12:00 Pulse 94 02/05/25 12:00 Resp 18 02/05/25 12:00 BP 109/68 02/05/25 12:00 Pulse Ox 90 L 02/05/25 12:00 O2 Del Method Mechanical Ventil ation, Trach Colla r 02/05/25 12:00 O2 Flow Rate 21 01/30/25 09:00 FiO2 30 02/05/25 12:00 Oxygen Flow Rate 45 01/22/25 12:00 BMI result Body Mass Index 35.0 Const: General: cooperative HEENT: Head: Yes normal to inspection Face and sinus: Yes normal facial exam Mouth: Normal oral and palatal mucosa present Teeth and gingiva: dentition normal Eyes: General: appearance normal, both eyes and all related structures Pupils: Equal, round and reactive pupils present Resp: Effort & Inspection: normal respiratory effort Cardio: Rate: regular rate Rhythm: regular rhythm GI: Palpation (GI): Soft to palpation and nontender : General: Yes no CVA tenderness Back/Spine/Pelvis: Back: no CVA tenderness Skin: General skin exam: no rashes or lesions noted Neuro: General: moves all extremities Cranial nerves: Yes Equal, round and reactive pupils present Extrem: General: Yes normal to inspection Psych: Appearance: grossly normal Results Labs 02/05/25 05:26 02/05/25 05:26 Labs: Short CBC 02/05/25 Range/Units 05:26 WBC 11.3 H (4.8-10.8) X10*3/uL Hgb 9.3 L (12.0-16.0) g/dl Hct 27.6 L (37.0-47.0) % Plt Count 307 (160-400) X10*3/uL BMP 02/05/25 05:26 Sodium 143 Potassium 3.6 Chloride 108 Carbon Dioxide 23 BUN 14 Creatinine 0.44 L Calcium 9.3 Liver Function 02/05/25 Range/Units 05:26 Albumin 3.4 L (3.5-5.0) g/dL Microbiology Microbiology Results: Microbiology 01/11/25 22:38 Blood - Venous Blood Culture - Final No growth after 5 days. 01/11/25 22:38 Blood - Venous Blood Culture - Final No growth after 5 days. 01/09/25 06:28 Blood - Venous Blood Culture - Final No growth after 5 days. 01/09/25 06:28 Blood - Venous Blood Culture - Final No growth after 5 days. 01/11/25 22:19 Sputum - Suctioned Gram Stain - Final 01/11/25 22:19 Sputum - Suctioned Sputum Culture - Final 01/06/25 23:32 Blood - Venous Blood Culture - Final No growth after 5 days. 01/06/25 23:32 Blood - Venous Blood Culture - Final No growth after 5 days. Assessment and Plan (1) Herpes virus disease: Status: Acute Plan There is some lesion possibly due to stress,being in ICU. She has finished course of antivirals and gone. Would not continue antivirals at this time unless recurrence.
--- NOTE | 2025-02-05 17:58 | PC.RT ---
Pt MRI held at this time secondary to . Unable to confirm pt trach tube MRI compatable.
[2025-02-05 18:19] LABS: Glucose, Whole Blood 211 mg/dL (60-115)
--- NOTE | 2025-02-05 20:00 | PC.NURSE ---
Assumed care of patient 0700, Patient alert and oriented x4, nonverbal but writes needs, denies pain or discomfort at rest, left arm discomfort with movement MD made aware, patient complaining of nausea this afternoon assessed tube feed residual none noted, purewick in place bladder scan 75mls this afternoon.
[2025-02-06] VITALS (32 sets, daily range): BP systolic 97–143; BP diastolic 60–104; PULSE 69–117; RESP 15–36; TEMP 34.6–37.3; O2SAT 88–99; BMI 30.2
[2025-02-06 00:11] LABS: Glucose, Whole Blood 218 mg/dL (60-115)
[2025-02-06] MEDS: 0.9 % Sodium Chloride Flush 3 ML SYRINGE IVFLUSH ×3 (00:22→16:00)
[2025-02-06] MEDS: Albuterol/Iprat 2.5/0.5MG 3 ML AMPUL.NEB INHALE ×4 (02:36→19:56)
[2025-02-06 04:26] LABS: VBG HCO3 24 mmol/L (22-26); VBG O2 % Saturation 94.0 %
[2025-02-06 04:31] LABS: Venous Blood Gas Refer to POC result
[2025-02-06 04:44] LABS: Hematocrit 27.7 % (37.0-47.0); Hemoglobin 9.1 g/dl (12.0-16.0); Imm Gran Abs Auto 0.44 X10*3/uL (0.00-0.03); Imm Gran Pct Auto 4.9 % (0.0-0.4); Lymphocytes Absolute Auto 0.5 X10*3/uL (1.2-4.9); MANUAL DIFF FLAG NO; Mean Corpuscular HGB Conc 32.9 g/dl (31.0-35.0); Mean Corpuscular Hemoglobin 28.0 pg (27.0-33.0); Mean Corpuscular Volume 85.2 fL (80.0-98.0); NRBC Abs Auto 0.000 X10*3/uL (0.0-0.012); NRBC Pct Auto 0.0 /100WBC (0.0-0.2); Platelet Count 335 X10*3/uL (160-400); Red Blood Count 3.25 X10*6/uL (4.20-5.50); White Blood Count 9.1 X10*3/uL (4.8-10.8)
[2025-02-06 05:00] LABS: Alanine Aminotransferase 34 U/L (0-31); Albumin Level 3.7 g/dL (3.5-5.0); Alkaline Phosphatase 131 U/L (39-117); Anion Gap 15 (12-20); Aspartate Amino Transferase 20 U/L (5-31); Blood Urea Nitrogen 16 mg/dL (9-16); Calcium 9.4 mg/dL (8.4-10.2); Carbon Dioxide 24 mmol/L (22-29); Chloride 107 mmol/L (96-108); Creatinine Clr Calc Pharmacy 209.3; Estimated Glomerular Filt Rate > 60; Magnesium 2.0 mg/dL (1.6-2.6); Potassium 4.3 mmol/L (3.3-5.1); Sodium 142 mmol/L (135-145); Total Protein 7.2 g/dL (6.5-8.0)
[2025-02-06 06:15] LABS: Glucose, Whole Blood 210 mg/dL (60-115)
--- NOTE | 2025-02-06 08:54 | P.PNCC_ITS ---
Subjective Subjective Date of Service: 02/06/25 Interval History: No new events, on ventilator support through tracheostomy tube Stable labs Critical Care Time (minutes): 35 Physical Exam 2 Vital Signs: Vital Signs: Last Vital Signs Temp 98.0 F 02/06/25 08:00 Pulse 117 H 02/06/25 08:00 Resp 22 H 02/06/25 08:00 BP 121/81 02/06/25 08:00 Pulse Ox 93 02/06/25 08:00 O2 Del Method Mechanical Ventil ationIndia Colla r 02/06/25 08:00 O2 Flow Rate 21 01/30/25 09:00 FiO2 30 02/06/25 08:00 Oxygen Flow Rate 45 01/22/25 12:00 BMI result Body Mass Index 30.2 General: Middle-aged lady acute distress, ill appearing and tired appearing Nutritional Appearance: Poorly nourished, weight is slightly on higher side Eyes: appearance normal, both eyes and all related structures; Alignment and Position: alignment normal and position normal Neck: No lymphadenopathy, no thyromegaly Resp: bilateral air entry equal, occasional added sounds present, tracheostomy looks okay Cardio: Regular rate, regular rhythm; Heart sounds: S1 normal heart sound present and S2 normal heart sound present GI: soft, nontender, no guarding, no hepatosplenomegaly : bladder normal to inspection, bladder normal to palpation, no renal angle tenderness Skin: no rashes or lesions noted and elasticity normal Neuro: oriented to person, oriented to place, oriented to time and moves all extremities Objective Data Labs 02/06/25 04:04 02/06/25 04:04 Labs: Laboratory Results - last 24 hr 02/05/25 02/05/25 02/05/25 11:57 18:15 23:57 WBC RBC Hgb Hct MCV MCH MCHC RDW Plt Count MPV Immature Gran % (Auto) Neut % (Auto) Lymph % (Auto) Mchenry % (Auto) Eos % (Auto) Baso % (Auto) Lymph # (Auto) Mchenry # (Auto) Eos # (Auto) Baso # (Auto) Abs Immat Gran (auto) Absolute Neuts (auto) Absolute Nucleated RBC Nucleated RBC % (auto) VBG pH VBG pCO2 VBG pO2 VBG HCO3 VBG O2 Saturation VBG Base Excess Sodium Potassium Chloride Carbon Dioxide Anion Gap BUN Creatinine Estim Creat Clear Calc Estimated GFR POC Glucose 150 H 211 H 218 H Random Glucose Calcium Phosphorus Magnesium Total Bilirubin AST ALT Alkaline Phosphatase Total Protein Albumin 02/06/25 02/06/25 02/06/25 04:04 04:22 06:11 WBC 9.1 RBC 3.25 L Hgb 9.1 L Hct 27.7 L MCV 85.2 MCH 28.0 MCHC 32.9 RDW 15.5 Plt Count 335 MPV 9.6 Immature Gran % (Auto) 4.9 H Neut % (Auto) 87.9 H Lymph % (Auto) 5.8 L Mchenry % (Auto) 1.2 L Eos % (Auto) 0.0 Baso % (Auto) 0.2 Lymph # (Auto) 0.5 L Mchenry # (Auto) 0.1 Eos # (Auto) 0.0 Baso # (Auto) 0.0 Abs Immat Gran (auto) 0.44 H Absolute Neuts (auto) 8.0 Absolute Nucleated RBC 0.000 Nucleated RBC % (auto) 0.0 VBG pH 7.54 H VBG pCO2 28 VBG pO2 76 VBG HCO3 24 VBG O2 Saturation 94.0 VBG Base Excess 3.2 Sodium 142 Potassium 4.3 Chloride 107 Carbon Dioxide 24 Anion Gap 15 BUN 16 Creatinine 0.37 L Estim Creat Clear Calc 209.3 Estimated GFR > 60 POC Glucose 210 H Random Glucose 241 H Calcium 9.4 Phosphorus 2.5 L Magnesium 2.0 Total Bilirubin 0.3 AST 20 ALT 34 H Alkaline Phosphatase 131 H Total Protein 7.2 Albumin 3.7 Microbiology Microbiology Results: Microbiology 01/11/25 22:38 Blood - Venous Blood Culture - Final No growth after 5 days. 01/11/25 22:38 Blood - Venous Blood Culture - Final No growth after 5 days. 01/09/25 06:28 Blood - Venous Blood Culture - Final No growth after 5 days. 01/09/25 06:28 Blood - Venous Blood Culture - Final No growth after 5 days. 01/11/25 22:19 Sputum - Suctioned Gram Stain - Final 01/11/25 22:19 Sputum - Suctioned Sputum Culture - Final 01/06/25 23:32 Blood - Venous Blood Culture - Final No growth after 5 days. 01/06/25 23:32 Blood - Venous Blood Culture - Final No growth after 5 days. Progress Note: A&P Assessment and plan (1) Hypothyroidism: Status: Acute (2) Allergic rhinitis: Status: Acute (3) Status post tracheostomy: Status: Acute (4) Obesity hypoventilation syndrome: Status: Acute (5) Acute and chronic respiratory failure with hypercapnia: Status: Acute (6) Pulmonary edema: Status: Acute (7) Pulmonary aspiration: Status: Acute Plan 44-year-old lady with underlying morbid obesity with obesity hyperventilation, PCOS, panic disorder, hypothyroidism admitted on 01/07/2025 with dyspnea to telemetry [facility] in treated empirically for community-acquired pneumonia. Hospital course further complicated by iatrogenic hyperoxia resulting in acute hypercapnia requiring BiPAP support. Patient transferred to telemetry [facility] on 01/08/2025. Overnight patient with another episode you iatrogenic hyperoxia with resultant hypercapnia requiring intubation with ventilatory support and transfer to intensive care unit, further complicated by CO2 narcosis associated aspiration. Extubated uneventfully on 01/10/2025. Overnight with pulmonary aspiration requiring emergent intubation, thereafter with hypoxia refractory to ventilatory support requiring emergent bedside bronchoscopy with secretion clearance with improvement in oxygenation. EMG with no evidence of myopathy. Extubated on 01/19/2025. Continues to require BiPAP support on and off. Overall with what appears to be poor respiratory strength resulting in recurrent aspirations while on BiPAP support necessitating re-intubation overnight on 01/26/2025. Status post tracheostomy/gastrostomy on 01/30/2025. With improving tolerance of ventilator weaning. Neuro: Neuro: Patient has history of a progressive neurological disorder for which she was undergoing evaluation. Apparently she developed weakness in her lower extremities along with difficulty in speech since last May that was progressive later developed urinary incontinence and was wheelchair-bound in October for which she was evaluated at [facility] and here. She underwent a MRI of the spine which did not show any acute abnormalities, initial blood workup were negative for, neuropathies. 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 EMG ruled out any acute or subacute neuropathies including myasthenia gravis or CIDP or GBS, possibly has a chronic neuropathy in the lower extremity. no sedation She is on empiric solumedrol 60mg q.8 hours with which we see some improvement in her respiratory efforts so re added yesterday Withholding MRI of the brain due to metallic tracheostomy tube. Respiratory: Acute hypoxemic respiratory failure due to neuromuscular disease currently status post tracheostomy on 01/30/2025 Currently on ventilator support through tracheostomy tube, we will wean to pressure support as tolerated On PRVC mode FiO2 30% PEEP 5, TV [address] RR [address] We will place on pressure support trials again today Peak pressures and plateau pressures are under the curve Ventilator management bundle with head end elevation, aspiration precaution, chlorhexidine mouthwash, daily awakening trials, daily spontaneous breathing trials GI: On G-tube feeds Infectious disease: Pancultures negative Previously treated with empiric vanc and Zosyn Hypothyroidism: On levothyroxine Musculoskeletal: Decubitus ulcer prevention protocol Lines: peripherals no caro Prophylaxis: Lovenox, famotidine We will do labs every 72 hours to avoid unnecessary blood draws Quality Stroke Does the patient have a stroke diagnosis?: No VTE Prior VTE?: No VTE Risk Level:: Medical - moderate - high VTE Device Contraindication: Treatment Not Indicated VTE Drug Contraindication: N/A - Med Ordered
[2025-02-06] MEDS: Chlorhexidine Gluc Oral Rinse 15 ML MOUTHWASH BUCCAL ×2 (09:01→21:18)
[2025-02-06 11:40] LABS: Glucose, Whole Blood 248 mg/dL (60-115)
[2025-02-06] MEDS: Acetaminop/Codeine 120/12/5 mL 5 ML SOLUTION 10 ML PO ×2 (14:08→21:19)
--- NOTE | 2025-02-06 15:27 | MHC.SLORD ---
Speech Language Pathology Order Status: Patient continues on ventilator support, has PEG for alternative nutrition route, Speech/dysphagia therapy not indicated at this time. BEEF GRADER will discharge order. Please re-consult if additional needs arise during this inpatient stay.
--- NOTE | 2025-02-06 15:57 | MHC.CM.PN ---
Currently on ventilator support through tracheostomy tube: PLAN: wean to pressure support as tolerated. Pt has been referred to [facility]. Possible transfer late this week.
[2025-02-06 18:11] LABS: Glucose, Whole Blood 203 mg/dL (60-115)
--- NOTE | 2025-02-06 19:38 | PC.NURSE ---
Assumed care of patient 0700, Patient alert and oriented x4, nonverbal but writes needs, denies pain or discomfort at rest, patient out of bed to chair this afternoon, on PSV most of afternoon and tolerated well, patient complaining of nausea this afternoon assessed tube feed residual none noted, Reglan given as ordered, purewick in place bladder scan 75mls this afternoon.
[2025-02-07] VITALS (31 sets, daily range): BP systolic 101–145; BP diastolic 66–97; PULSE 58–93; RESP 15–34; TEMP 35–36.8; O2SAT 90–97; BMI 31.3
[2025-02-07 00:06] LABS: Glucose, Whole Blood 230 mg/dL (60-115)
[2025-02-07] MEDS: 0.9 % Sodium Chloride Flush 3 ML SYRINGE IVFLUSH ×4 (00:21→23:51)
[2025-02-07] MEDS: Acetaminop/Codeine 120/12/5 mL 5 ML SOLUTION 10 ML PO ×3 (02:24→13:31)
[2025-02-07 05:49] LABS: Glucose, Whole Blood 248 mg/dL (60-115)
[2025-02-07] MEDS: Chlorhexidine Gluc Oral Rinse 15 ML MOUTHWASH BUCCAL (08:23)
--- NOTE | 2025-02-07 08:58 | P.PNCC_ITS ---
Subjective Subjective Date of Service: 02/07/25 Interval History: On pressure support since yesterday Critical Care Time (minutes): 35 Physical Exam 2 Vital Signs: Vital Signs: Last Vital Signs Temp 96.8 F 02/07/25 08:00 Pulse 73 02/07/25 08:00 Resp 22 H 02/07/25 08:00 BP 122/76 02/07/25 08:00 Pulse Ox 92 02/07/25 08:00 O2 Del Method Mechanical Ventil ation, Trach Colla r 02/07/25 08:00 O2 Flow Rate 21 01/30/25 09:00 FiO2 35 02/07/25 08:00 Oxygen Flow Rate 45 01/22/25 12:00 BMI result Body Mass Index 31.3 General: Middle-aged lady in mild acute distress, ill appearing and tired appearing Nutritional Appearance: well nourished and overweight Eyes: appearance normal, both eyes and all related structures; Alignment and Position: alignment normal and position normal Neck: No lymphadenopathy, no thyromegaly, tracheostomy looks okay Resp: bilateral air entry equal, occasional added sounds present Cardio: Regular rate, regular rhythm; Heart sounds: S1 normal heart sound present and S2 normal heart sound present GI: soft, nontender, no guarding, no hepatosplenomegaly : bladder normal to inspection, bladder normal to palpation, no renal angle tenderness Skin: no rashes or lesions noted and elasticity normal Neuro: oriented to person, oriented to place, oriented to time and weakness in the lower extremities Objective Data Labs 02/06/25 04:04 02/06/25 04:04 Labs: Laboratory Results - last 24 hr 02/06/25 02/06/25 02/06/25 11:36 18:06 23:59 POC Glucose 248 H 203 H 230 H 02/07/25 05:45 POC Glucose 248 H Microbiology Microbiology Results: Microbiology 01/11/25 22:38 Blood - Venous Blood Culture - Final No growth after 5 days. 01/11/25 22:38 Blood - Venous Blood Culture - Final No growth after 5 days. 01/09/25 06:28 Blood - Venous Blood Culture - Final No growth after 5 days. 01/09/25 06:28 Blood - Venous Blood Culture - Final No growth after 5 days. 01/11/25 22:19 Sputum - Suctioned Gram Stain - Final 01/11/25 22:19 Sputum - Suctioned Sputum Culture - Final 01/06/25 23:32 Blood - Venous Blood Culture - Final No growth after 5 days. 01/06/25 23:32 Blood - Venous Blood Culture - Final No growth after 5 days. Progress Note: A&P Assessment and plan (1) Hypothyroidism: Status: Acute (2) Acute on chronic respiratory failure with hypoxia and hypercapnia: Status: Acute (3) Acute and chronic respiratory failure with hypercapnia: Status: Acute (4) Obesity hypoventilation syndrome: Status: Acute (5) Pneumonia: Status: Acute (6) Pulmonary aspiration: Status: Acute Plan 44-year-old lady with underlying morbid obesity with obesity hyperventilation, PCOS, panic disorder, hypothyroidism admitted on 01/07/2025 with dyspnea to telemetry [facility] in treated empirically for community-acquired pneumonia. Hospital course further complicated by iatrogenic hyperoxia resulting in acute hypercapnia requiring BiPAP support. Patient transferred to telemetry [facility] on 01/08/2025. Overnight patient with another episode you iatrogenic hyperoxia with resultant hypercapnia requiring intubation with ventilatory support and transfer to intensive care unit, further complicated by CO2 narcosis associated aspiration. Extubated uneventfully on 01/10/2025. Overnight with pulmonary aspiration requiring emergent intubation, thereafter with hypoxia refractory to ventilatory support requiring emergent bedside bronchoscopy with secretion clearance with improvement in oxygenation. EMG with no evidence of myopathy. Extubated on 01/19/2025. Continues to require BiPAP support on and off. Overall with what appears to be poor respiratory strength resulting in recurrent aspirations while on BiPAP support necessitating re-intubation overnight on 01/26/2025. Status post tracheostomy/gastrostomy on 01/30/2025. With improving tolerance of ventilator weaning. Neuro: Neuro: Patient has history of a progressive neurological disorder for which she was undergoing evaluation. Apparently she developed weakness in her lower extremities along with difficulty in speech since last May that was progressive later developed urinary incontinence and was wheelchair-bound in October for which she was evaluated at [facility] and here. She underwent a MRI of the spine which did not show any acute abnormalities, initial blood workup were negative for, neuropathies. 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 EMG ruled out any acute or subacute neuropathies including myasthenia gravis or CIDP or GBS, possibly has a chronic neuropathy in the lower extremity. no sedation She is on empiric solumedrol 60mg q.8 hours with which we see some improvement in her respiratory efforts so re added yesterday Withholding MRI of the brain due to metallic tracheostomy tube. Respiratory: Acute hypoxemic respiratory failure due to neuromuscular disease currently status post tracheostomy on 01/30/2025 Currently on ventilator support through tracheostomy tube, we will wean to pressure support as tolerated On PRVC mode FiO2 30% PEEP 5, TV [address] on pressure support trials again today and if she does very well we will try her on trach collar. Peak pressures and plateau pressures are under the curve Ventilator management bundle with head end elevation, aspiration precaution, chlorhexidine mouthwash, daily awakening trials, daily spontaneous breathing trials GI: On G-tube feeds Infectious disease: Pancultures negative Previously treated with empiric vanc and Zosyn Hypothyroidism: On levothyroxine Musculoskeletal: Decubitus ulcer prevention protocol Lines: peripherals no caro Prophylaxis: Lovenox, famotidine We will do labs every 72 hours to avoid unnecessary blood draws Quality Stroke Does the patient have a stroke diagnosis?: No VTE Prior VTE?: No VTE Risk Level:: Medical - moderate - high VTE Device Contraindication: Treatment Not Indicated VTE Drug Contraindication: N/A - Med Ordered
--- NOTE | 2025-02-07 10:55 | MHC.CM.PN ---
EMR REVIEWED, PT S/P PEG/TRACH PLACEMENT 01/30, PLAN FOR LTAC ONCE MEDICALLY STABLE, [facility] FOLLOWING, CM WILL CONT TO FOLLOW DC NEEDS.
--- NOTE | 2025-02-07 11:10 | MHC.CLN ---
F/U REVIEWED LABS DISCUSSED AT ROUNDS WITH PT NOW RECEIVING PROMOTE TF AT MAX GAOL RATE 55ML/HR WITH 240ML FREE WATER Q 8 HRS PROVIDES 1320KCALS (24KCALS/KG), 82.5G PROTEIN (1.5G/KG), 1827ML TOTAL WATER FROM FORMULA AND FLUSHES (33.5ML/KG) MONITOR TOLERANCE AND LYTES CAN SWITCH BACK TO DIABETIC FORMULA IF NEEDED
[2025-02-07 12:11] LABS: Glucose, Whole Blood 189 mg/dL (60-115)
[2025-02-07 17:44] LABS: Glucose, Whole Blood 206 mg/dL (60-115)
[2025-02-07] MEDS: ERYTHROMYCIN ETHYLSUCCINATE 100 MG PO ×2 (17:48→23:50)
--- NOTE | 2025-02-07 18:34 | PC.NURSE ---
Assumed care at 0700. At initial assessment pt remains on ACVC+ settings. A&O, able to communicate effectively via writing and mouthing words. At approx 0845, RT placed pt on PSV of 15/5. At approx 1030, pt was set to fio2 40% and PSV of 12/5. Pt tolerating quite well. Per MD, labs to be drawn q3days. Pt repositioned q2hr as tolerated. Fall & safety precautions in place. See MAR and assessments for further details.
[2025-02-08] VITALS (30 sets, daily range): BP systolic 104–164; BP diastolic 60–145; PULSE 58–114; RESP 13–32; TEMP 34.8–36.8; O2SAT 89–97; BMI 31.4
[2025-02-08 00:02] LABS: Glucose, Whole Blood 227 mg/dL (60-115)
[2025-02-08 05:54] LABS: Glucose, Whole Blood 256 mg/dL (60-115)
[2025-02-08] MEDS: ERYTHROMYCIN ETHYLSUCCINATE 100 MG PO ×3 (05:57→18:00)
[2025-02-08] MEDS: 0.9 % Sodium Chloride Flush 3 ML SYRINGE IVFLUSH ×2 (08:17→16:29)
--- NOTE | 2025-02-08 08:57 | PM.CCPN ---
Subjective Subjective Date of Service: 02/08/25 Interval History: No new events overnight, remained on pressor support and did well yesterday. Critical Care Time (minutes): 35 Physical Exam Vital Signs: Vital Signs: Last Vital Signs Temp 98.1 F 02/08/25 07:00 Pulse 74 02/08/25 08:00 Resp 30 H 02/08/25 08:00 BP 127/89 02/08/25 08:00 Pulse Ox 92 02/08/25 08:00 O2 Del Method Mechanical Ventil ation 02/08/25 08:00 O2 Flow Rate 21 01/30/25 09:00 FiO2 30 02/08/25 08:00 Oxygen Flow Rate 45 01/22/25 12:00 BMI result Body Mass Index 31.4 General: Middle-aged pleasant lady in no acute distress, chronically ill appearing and tired appearing Nutritional Appearance: well nourished and overweight Eyes: appearance normal, both eyes and all related structures; Alignment and Position: alignment normal and position normal Neck: No lymphadenopathy, no thyromegaly Resp: bilateral air entry equal, occasional added sounds present Cardio: Regular rate, regular rhythm; Heart sounds: S1 normal heart sound present and S2 normal heart sound present GI: soft, nontender, no guarding, no hepatosplenomegaly : bladder normal to inspection, bladder normal to palpation, no renal angle tenderness Skin: no rashes or lesions noted and elasticity normal Neuro: oriented to person, oriented to place, oriented to time and moves all extremities Objective Data Labs 02/06/25 04:04 02/06/25 04:04 Labs: Laboratory Results - last 24 hr 02/07/25 02/07/25 02/07/25 12:03 17:37 23:45 POC Glucose 189 H 206 H 227 H 02/08/25 05:35 POC Glucose 256 H Microbiology Microbiology Results: Microbiology 01/11/25 22:38 Blood - Venous Blood Culture - Final No growth after 5 days. 01/11/25 22:38 Blood - Venous Blood Culture - Final No growth after 5 days. 01/09/25 06:28 Blood - Venous Blood Culture - Final No growth after 5 days. 01/09/25 06:28 Blood - Venous Blood Culture - Final No growth after 5 days. 01/11/25 22:19 Sputum - Suctioned Gram Stain - Final 01/11/25 22:19 Sputum - Suctioned Sputum Culture - Final 01/06/25 23:32 Blood - Venous Blood Culture - Final No growth after 5 days. 01/06/25 23:32 Blood - Venous Blood Culture - Final No growth after 5 days. Progress Note: A&P Assessment and plan (1) Pneumonia: Status: Acute (2) Obesity hypoventilation syndrome: Status: Acute (3) Acute and chronic respiratory failure with hypercapnia: Status: Acute (4) Pulmonary aspiration: Status: Acute Plan 44-year-old lady with underlying morbid obesity with obesity hyperventilation, PCOS, panic disorder, hypothyroidism admitted on 01/07/2025 with dyspnea to telemetry [facility] in treated empirically for community-acquired pneumonia. Hospital course further complicated by iatrogenic hyperoxia resulting in acute hypercapnia requiring BiPAP support. Patient transferred to telemetry [facility] on 01/08/2025. Overnight patient with another episode you iatrogenic hyperoxia with resultant hypercapnia requiring intubation with ventilatory support and transfer to intensive care unit, further complicated by CO2 narcosis associated aspiration. Extubated uneventfully on 01/10/2025. Overnight with pulmonary aspiration requiring emergent intubation, thereafter with hypoxia refractory to ventilatory support requiring emergent bedside bronchoscopy with secretion clearance with improvement in oxygenation. EMG with no evidence of myopathy. Extubated on 01/19/2025. Continues to require BiPAP support on and off. Overall with what appears to be poor respiratory strength resulting in recurrent aspirations while on BiPAP support necessitating re-intubation overnight on 01/26/2025. Status post tracheostomy/gastrostomy on 01/30/2025. With improving tolerance of ventilator weaning. Neuro: Neuro: Patient has history of a progressive neurological disorder for which she was undergoing evaluation. Apparently she developed weakness in her lower extremities along with difficulty in speech since last May that was progressive later developed urinary incontinence and was wheelchair-bound in October for which she was evaluated at [facility] and here. She underwent a MRI of the spine which did not show any acute abnormalities, initial blood workup were negative for, neuropathies. 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 EMG ruled out any acute or subacute neuropathies including myasthenia gravis or CIDP or GBS, possibly has a chronic neuropathy in the lower extremity. no sedation She is on empiric solumedrol 60mg q.8 hours with which we see some improvement in her respiratory efforts so re added yesterday Withholding MRI of the brain due to metallic tracheostomy tube. Respiratory: Acute hypoxemic respiratory failure due to neuromuscular disease currently status post tracheostomy on 01/30/2025 Currently on ventilator support through tracheostomy tube, we will wean to pressure support as tolerated On pressor support trials, doing well. Today we might try her on trach collar Peak pressures and plateau pressures are under the curve Ventilator management bundle with head end elevation, aspiration precaution, chlorhexidine mouthwash, daily awakening trials, daily spontaneous breathing trials GI: On G-tube feeds Infectious disease: Pancultures negative Previously treated with empiric vanc and Zosyn Hypothyroidism: On levothyroxine Musculoskeletal: Decubitus ulcer prevention protocol Lines: peripherals no caro Prophylaxis: Lovenox, famotidine We will do labs every 72 hours to avoid unnecessary blood draws Quality Stroke Does the patient have a stroke diagnosis?: No VTE Prior VTE?: No VTE Risk Level:: Medical - moderate - high VTE Device Contraindication: Treatment Not Indicated VTE Drug Contraindication: N/A - Med Ordered
--- NOTE | 2025-02-08 10:37 | PC.RT ---
At approx 0930 this am, PS decreased to 5/5 on ventilator. Pt was comfortable and had no complaints about her breathing. RNs cleaned pt and RNs/RT moved pt into chair. Trach cuff was deflated an pt was placed on trach collar 35%. Pt is comfortable, RR 26 SAT 93% HR 94. Pt will continue to be monitored, ventilator on standby.
[2025-02-08 11:45] LABS: Glucose, Whole Blood 196 mg/dL (60-115)
--- NOTE | 2025-02-08 15:12 | MHC.CM.PN ---
Addendum entered by Jenn Espinosa 02/08/25 15:23: Pt's niece Juan called back to state pt's birthday is Wednesday and family is planning a 'libertarian' here at [facility] She states pts son is coming and she is having her hair and nails done which is very important to the pt. She is requesting transfer to occur on Wednesday. Educated Juan on transfer process including insurance authorization, medical stability, etc. Juan requested contact numbers for [facility] and [facility] drawing checker to request d/c postponement. CM to follow Original Note: Pt making great clinical progress and tolerating PSV trach collar trials. OOB to chair: more participatory in care. Clinical updates remitted to Rita Puentes, she will submit for [employer] auth for pt transfer. ICU care team aware of plan - pt informed and HCP called with update. CM to follow. Pt will need ALS to transport
[2025-02-08 17:47] LABS: Glucose, Whole Blood 247 mg/dL (60-115)
--- NOTE | 2025-02-08 18:57 | PC.NURSE ---
Assumed care at 0700. Upon initial assessment, pt remained ventilated on PSV settings of 12/5 with fio2 of 30%. Pt tolerating well.? At approx 1000, RT placed pt on trach mask and moved to [place] chair. Tolerating well. Pt transferred back to bed and ventilator at approx 1130 due to increased RR and tiredness. PSV set at 8/5 with fio2 of 30%. Pt tolerating well. See MAR and assessments for further details. Fall & safety precautions in place. Pt repositioned q2hrs as tolerated.
[2025-02-08] MEDS: Loperamide HCl Oral Liquid 2 MG/15 ML LIQUID 4 MG PO (20:03)
[2025-02-09] VITALS (33 sets, daily range): BP systolic 102–126; BP diastolic 66–87; PULSE 66–89; RESP 11–27; TEMP 34.6–36.9; O2SAT 93–97; BMI 31.4
[2025-02-09 00:09] LABS: Glucose, Whole Blood 301 mg/dL (60-115)
[2025-02-09] MEDS: ERYTHROMYCIN ETHYLSUCCINATE 100 MG PO ×5 (00:22→23:50)
[2025-02-09] MEDS: 0.9 % Sodium Chloride Flush 3 ML SYRINGE IVFLUSH ×4 (00:23→23:51)
--- NOTE | 2025-02-09 02:38 | HO.SKINPHOTO ---
Location: Tracheostomy stoma site Category: Surgical
[2025-02-09 04:47] LABS: VBG HCO3 24 mmol/L (22-26); VBG O2 % Saturation 93.0 %
[2025-02-09 05:00] LABS: Hematocrit 29.3 % (37.0-47.0); Hemoglobin 9.7 g/dl (12.0-16.0); Mean Corpuscular HGB Conc 33.1 g/dl (31.0-35.0); Mean Corpuscular Hemoglobin 27.9 pg (27.0-33.0); Mean Corpuscular Volume 84.2 fL (80.0-98.0); NRBC Abs Auto 0.000 X10*3/uL (0.0-0.012); NRBC Pct Auto 0.0 /100WBC (0.0-0.2); Platelet Count 401 X10*3/uL (160-400); Red Blood Count 3.48 X10*6/uL (4.20-5.50); White Blood Count 15.8 X10*3/uL (4.8-10.8)
[2025-02-09 05:09] LABS: Venous Blood Gas Refer to POC result
[2025-02-09 05:18] LABS: Alanine Aminotransferase 43 U/L (0-31); Albumin Level 3.5 g/dL (3.5-5.0); Alkaline Phosphatase 100 U/L (39-117); Anion Gap 16 (12-20); Aspartate Amino Transferase 22 U/L (5-31); Blood Urea Nitrogen 25 mg/dL (9-16); Calcium 9.2 mg/dL (8.4-10.2); Carbon Dioxide 22 mmol/L (22-29); Chloride 102 mmol/L (96-108); Creatinine Clr Calc Pharmacy 178.5; Estimated Glomerular Filt Rate > 60; Magnesium 1.9 mg/dL (1.6-2.6); Potassium 4.7 mmol/L (3.3-5.1); Sodium 135 mmol/L (135-145); Total Protein 6.4 g/dL (6.5-8.0)
[2025-02-09 05:40] LABS: Atypical Lymph Absolute Manual 0.3 x10*3/uL; Atypical Lymphs Percent Manual 2 % (0-6); Band Neutrophils Percent 11 % (3-5); Lymphocytes Absolute Manual 0.6 X10*3/uL (1.2-4.9); Lymphocytes Percent Manual 4 % (20-40); Neutrophils Absolute Manual 14.9 X10*3/uL (2.0-8.3); Neutrophils Percent Manual 83 % (45-73); RBC Morphology NOTED
[2025-02-09 05:41] LABS: Microcytosis 1+ (5-14) /OIF
[2025-02-09 05:42] LABS: Large Platelet PRESENT
[2025-02-09 05:43] LABS: Spherocytes 1+ (0-2) /OIF
[2025-02-09] MEDS: Loperamide HCl Oral Liquid 2 MG/15 ML LIQUID 4 MG PO (06:06)
[2025-02-09 06:07] LABS: Glucose, Whole Blood 311 mg/dL (60-115)
[2025-02-09] MEDS: Chlorhexidine Gluc Oral Rinse 15 ML MOUTHWASH BUCCAL ×3 (08:04→20:50)
[2025-02-09] MEDS: Sodium,Potassium Phosphates POWD.PACK 2 PACKET G-TUBE (08:04)
--- NOTE | 2025-02-09 08:52 | PM.CCPN ---
Subjective Subjective Date of Service: 02/09/25 Interval History: Tolerated trach collar for about 1-1/2 hours yesterday. Back ventilator support, we will try her again on trach collar today Critical Care Time (minutes): 35 Physical Exam Vital Signs: Vital Signs: Last Vital Signs Temp 98.1 F 02/09/25 08:00 Pulse 74 02/09/25 08:00 Resp 12 02/09/25 08:00 BP 110/68 02/09/25 08:00 Pulse Ox 97 02/09/25 08:00 O2 Del Method Mechanical Ventil ation 02/09/25 08:00 O2 Flow Rate 21 01/30/25 09:00 FiO2 30 02/09/25 08:17 Oxygen Flow Rate 8 02/08/25 10:00 BMI result Body Mass Index 31.4 General: Middle-aged lady in minimal acute distress Nutritional Appearance: well nourished and overweight Eyes: appearance normal, both eyes and all related structures; Alignment and Position: alignment normal and position normal Neck: No lymphadenopathy, no thyromegaly, tracheostomy site looks okay Resp: bilateral air entry equal, occasional added sounds present Cardio: Regular rate, regular rhythm; Heart sounds: S1 normal heart sound present and S2 normal heart sound present GI: soft, nontender, no guarding, no hepatosplenomegaly : bladder normal to inspection, bladder normal to palpation, no renal angle tenderness Skin: no rashes or lesions noted and elasticity normal Neuro: oriented to person, oriented to place, oriented to time and moves all extremities Objective Data Labs 02/09/25 04:39 02/09/25 04:39 Labs: Laboratory Results - last 24 hr 02/08/25 02/08/25 02/09/25 11:42 17:43 00:01 WBC RBC Hgb Hct MCV MCH MCHC RDW Plt Count MPV Immature Gran % (Auto) Neut % (Auto) Lymph % (Auto) [place] % (Auto) Eos % (Auto) Baso % (Auto) Lymph # (Auto) [place] # (Auto) Eos # (Auto) Baso # (Auto) Abs Immat Gran (auto) Absolute Neuts (auto) Absolute Nucleated RBC Nucleated RBC % (auto) Neutrophils % (Manual) Band Neutrophils % Lymphocytes % (Manual) Atypical Lymphs % (Man) Abs Neuts (Manual) Lymphocytes # (Manual) Atyp Lymphs # (Manual) Platelet Estimate Large Platelets Plt Morphology Comment RBC Morphology Microcytosis Spherocytes VBG pH VBG pCO2 VBG pO2 VBG HCO3 VBG O2 Saturation VBG Base Excess Sodium Potassium Chloride Carbon Dioxide Anion Gap BUN Creatinine Estim Creat Clear Calc Estimated GFR POC Glucose 196 H 247 H 301 H Random Glucose Calcium Phosphorus Magnesium Total Bilirubin AST ALT Alkaline Phosphatase Total Protein Albumin 02/09/25 02/09/25 02/09/25 04:39 04:43 05:59 WBC 15.8 H RBC 3.48 L Hgb 9.7 L Hct 29.3 L MCV 84.2 MCH 27.9 MCHC 33.1 RDW 15.1 Plt Count 401 H MPV 9.2 L Immature Gran % (Auto) Cancelled Neut % (Auto) Cancelled Lymph % (Auto) Cancelled [place] % (Auto) Cancelled Eos % (Auto) Cancelled Baso % (Auto) Cancelled Lymph # (Auto) Cancelled [place] # (Auto) Cancelled Eos # (Auto) Cancelled Baso # (Auto) Cancelled Abs Immat Gran (auto) Cancelled Absolute Neuts (auto) Cancelled Absolute Nucleated RBC 0.000 Nucleated RBC % (auto) 0.0 Neutrophils % (Manual) 83 H Band Neutrophils % 11 H Lymphocytes % (Manual) 4 L Atypical Lymphs % (Man) 2 Abs Neuts (Manual) 14.9 H Lymphocytes # (Manual) 0.6 L Atyp Lymphs # (Manual) 0.3 Platelet Estimate NORMAL Large Platelets PRESENT Plt Morphology Comment NORMAL RBC Morphology NOTED Microcytosis 1+ (5-14) Spherocytes 1+ (0-2) VBG pH 7.48 H VBG pCO2 32 VBG pO2 76 VBG HCO3 24 VBG O2 Saturation 93.0 VBG Base Excess 1.4 Sodium 135 Potassium 4.7 Chloride 102 Carbon Dioxide 22 Anion Gap 16 BUN 25 H Creatinine 0.41 L Estim Creat Clear Calc 178.5 Estimated GFR > 60 POC Glucose 311 H Random Glucose 322 H Calcium 9.2 Phosphorus 2.5 L Magnesium 1.9 Total Bilirubin 0.3 AST 22 ALT 43 H Alkaline Phosphatase 100 Total Protein 6.4 L Albumin 3.5 Microbiology Microbiology Results: Microbiology 01/11/25 22:38 Blood - Venous Blood Culture - Final No growth after 5 days. 01/11/25 22:38 Blood - Venous Blood Culture - Final No growth after 5 days. 01/09/25 06:28 Blood - Venous Blood Culture - Final No growth after 5 days. 01/09/25 06:28 Blood - Venous Blood Culture - Final No growth after 5 days. 01/11/25 22:19 Sputum - Suctioned Gram Stain - Final 01/11/25 22:19 Sputum - Suctioned Sputum Culture - Final 01/06/25 23:32 Blood - Venous Blood Culture - Final No growth after 5 days. 01/06/25 23:32 Blood - Venous Blood Culture - Final No growth after 5 days. Progress Note: A&P Assessment and plan (1) Hypothyroidism: Status: Acute (2) GERD (gastroesophageal reflux disease): Status: Acute (3) Acute on chronic respiratory failure with hypoxia and hypercapnia: Status: Acute Plan 44-year-old lady with underlying morbid obesity with obesity hyperventilation, PCOS, panic disorder, hypothyroidism admitted on 01/07/2025 with dyspnea to telemetry [facility] in treated empirically for community-acquired pneumonia. Hospital course further complicated by iatrogenic hyperoxia resulting in acute hypercapnia requiring BiPAP support. Patient transferred to telemetry [facility] on 01/08/2025. Overnight patient with another episode you iatrogenic hyperoxia with resultant hypercapnia requiring intubation with ventilatory support and transfer to intensive care unit, further complicated by CO2 narcosis associated aspiration. Extubated uneventfully on 01/10/2025. Overnight with pulmonary aspiration requiring emergent intubation, thereafter with hypoxia refractory to ventilatory support requiring emergent bedside bronchoscopy with secretion clearance with improvement in oxygenation. EMG with no evidence of myopathy. Extubated on 01/19/2025. Continues to require BiPAP support on and off. Overall with what appears to be poor respiratory strength resulting in recurrent aspirations while on BiPAP support necessitating re-intubation overnight on 01/26/2025. Status post tracheostomy/gastrostomy on 01/30/2025. With improving tolerance of ventilator weaning. Neuro: Neuro: Patient has history of a progressive neurological disorder for which she was undergoing evaluation. Apparently she developed weakness in her lower extremities along with difficulty in speech since last May that was progressive later developed urinary incontinence and was wheelchair-bound in October for which she was evaluated at [facility] and here. She underwent a MRI of the spine which did not show any acute abnormalities, initial blood workup were negative for, neuropathies. 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 EMG ruled out any acute or subacute neuropathies including myasthenia gravis or CIDP or GBS, possibly has a chronic neuropathy in the lower extremity. no sedation She is on empiric solumedrol 60mg q.8 hours with which we see some improvement in her respiratory efforts, decreased to 60mg BID today. Withholding MRI of the brain due to metallic tracheostomy tube. Respiratory: Acute hypoxemic respiratory failure due to neuromuscular disease currently status post tracheostomy on 01/30/2025 Currently on ventilator support through tracheostomy tube, could tolerate trach collar for about 1.5 hours yesterday Currently on ventilator support, we will try her again on trach collar today GI: On G-tube feeds Infectious disease: Pancultures negative Previously treated with empiric vanc and Zosyn Hypothyroidism: On levothyroxine Musculoskeletal: Decubitus ulcer prevention protocol Lines: peripherals no caro Prophylaxis: Lovenox, famotidine Quality Stroke Does the patient have a stroke diagnosis?: No VTE Prior VTE?: No VTE Risk Level:: Medical - moderate - high VTE Device Contraindication: Treatment Not Indicated VTE Drug Contraindication: N/A - Med Ordered
--- NOTE | 2025-02-09 10:22 | MHC.CM.PN ---
Pt medically stable for d/c to [facility]: waiting for payor authorization and ALS vs BLS transportation arrangement. Discussed with pt and her spouse: pt understands d/c process and that she may d/c before or on Wednesday, 02/13. Pt writes that she is looking forward to rehab and wants to maximize her functional abilities and return to home. CM to follow.
--- NOTE | 2025-02-09 11:11 | MHC.CLN ---
F/U REVIEWED LABS DISCUSSED AT ROUNDS WITH PT NOW RECEIVING PROMOTE TF AT MAX GAOL RATE 55ML/HR WITH 240ML FREE WATER Q 8 HRS PROVIDES 1320KCALS (24KCALS/KG), 82.5G PROTEIN (1.5G/KG), 1827ML TOTAL WATER FROM FORMULA AND FLUSHES (33.5ML/KG) RECOMMEND SWITCH BACK TO DIABETIC FORMULA: RECOMMEND GLUCERNA TF AT MAX GAOL RATE 55ML/HR WITH 240ML FREE WATER Q 8 HRS TO PROVIDE 1584KCALS (23KCALS/KG), 79G PROTEIN (1.4G/KG), 1783ML TOTAL WATER FROM FORMULA AND FLUSHES (26ML/KG) MONITOR TOLERANCE AND LYTES
[2025-02-09 12:11] LABS: Glucose, Whole Blood 234 mg/dL (60-115)
[2025-02-09 17:47] LABS: Glucose, Whole Blood 277 mg/dL (60-115)
[2025-02-09] MEDS: Acetaminop/Codeine 120/12/5 mL 5 ML SOLUTION 10 ML PO (19:32)
[2025-02-09 23:49] LABS: Glucose, Whole Blood 242 mg/dL (60-115)
[2025-02-10] VITALS (30 sets, daily range): BP systolic 95–133; BP diastolic 51–92; PULSE 57–102; RESP 16–30; TEMP 34.6–36.8; O2SAT 94–100; BMI 31.4
[2025-02-10 06:10] LABS: Glucose, Whole Blood 257 mg/dL (60-115)
[2025-02-10] MEDS: ERYTHROMYCIN ETHYLSUCCINATE 100 MG PO ×4 (06:12→23:50)
[2025-02-10] MEDS: 0.9 % Sodium Chloride Flush 3 ML SYRINGE IVFLUSH ×3 (09:00→23:55)
[2025-02-10] MEDS: Chlorhexidine Gluc Oral Rinse 15 ML MOUTHWASH BUCCAL ×2 (09:23→20:43)
[2025-02-10] MEDS: Acetaminop/Codeine 120/12/5 mL 5 ML SOLUTION 10 ML PO ×2 (09:26→17:55)
[2025-02-10 12:45] LABS: Glucose, Whole Blood 191 mg/dL (60-115)
--- NOTE | 2025-02-10 13:04 | P.PNCC_ITS ---
Subjective Subjective Date of Service: 02/10/25 Interval History: No new events, off ventilator on trach collar since 12:00 Critical Care Time (minutes): 35 Physical Exam 2 Vital Signs: Vital Signs: Last Vital Signs Temp 97.6 F 02/10/25 12:00 Pulse 96 02/10/25 12:00 Resp 16 02/10/25 12:00 BP 128/88 02/10/25 12:00 Pulse Ox 96 02/10/25 12:00 O2 Del Method Trach Collar 02/10/25 12:00 O2 Flow Rate 7 02/10/25 12:00 FiO2 30 02/10/25 11:28 Oxygen Flow Rate 8 02/08/25 10:00 BMI result Body Mass Index 31.4 General: Middle-aged lady in mild acute distress, she is chronically ill appearing and tired appearing Nutritional Appearance: well nourished and overweight Eyes: appearance normal, both eyes and all related structures; Alignment and Position: alignment normal and position normal Neck: No lymphadenopathy, no thyromegaly Resp: bilateral air entry equal, occasional added sounds present Cardio: Regular rate, regular rhythm; Heart sounds: S1 normal heart sound present and S2 normal heart sound present GI: soft, nontender, no guarding, no hepatosplenomegaly : bladder normal to inspection, bladder normal to palpation, no renal angle tenderness Skin: no rashes or lesions noted and elasticity normal Neuro: oriented to person, oriented to place, oriented to time she has significant neuro deficits in the lower extremities but upper extremities is okay Objective Data Labs 02/09/25 04:39 02/09/25 04:39 Labs: Laboratory Results - last 24 hr 02/09/25 02/09/25 02/10/25 17:42 23:45 06:06 POC Glucose 277 H 242 H 257 H 02/10/25 12:36 POC Glucose 191 H Microbiology Microbiology Results: Microbiology 01/11/25 22:38 Blood - Venous Blood Culture - Final No growth after 5 days. 01/11/25 22:38 Blood - Venous Blood Culture - Final No growth after 5 days. 01/09/25 06:28 Blood - Venous Blood Culture - Final No growth after 5 days. 01/09/25 06:28 Blood - Venous Blood Culture - Final No growth after 5 days. 01/11/25 22:19 Sputum - Suctioned Gram Stain - Final 01/11/25 22:19 Sputum - Suctioned Sputum Culture - Final 01/06/25 23:32 Blood - Venous Blood Culture - Final No growth after 5 days. 01/06/25 23:32 Blood - Venous Blood Culture - Final No growth after 5 days. Progress Note: A&P Assessment and plan (1) Acute and chronic respiratory failure with hypercapnia: Status: Acute (2) Obesity hypoventilation syndrome: Status: Acute (3) Pulmonary aspiration: Status: Acute (4) Acute on chronic respiratory failure with hypoxia and hypercapnia: Status: Acute (5) Hypothyroidism: Status: Acute Plan 44-year-old lady with underlying morbid obesity with obesity hyperventilation, PCOS, panic disorder, hypothyroidism admitted on 01/07/2025 with dyspnea to telemetry [facility] in treated empirically for community-acquired pneumonia. Hospital course further complicated by iatrogenic hyperoxia resulting in acute hypercapnia requiring BiPAP support. Patient transferred to telemetry [facility] on 01/08/2025. Overnight patient with another episode you iatrogenic hyperoxia with resultant hypercapnia requiring intubation with ventilatory support and transfer to intensive care unit, further complicated by CO2 narcosis associated aspiration. Extubated uneventfully on 01/10/2025. Overnight with pulmonary aspiration requiring emergent intubation, thereafter with hypoxia refractory to ventilatory support requiring emergent bedside bronchoscopy with secretion clearance with improvement in oxygenation. EMG with no evidence of myopathy. Extubated on 01/19/2025. Continues to require BiPAP support on and off. Overall with what appears to be poor respiratory strength resulting in recurrent aspirations while on BiPAP support necessitating re-intubation overnight on 01/26/2025. Status post tracheostomy/gastrostomy on 01/30/2025, currently tolerating trach collar trials for few hours every day Neuro: Neuro: Patient has history of a progressive neurological disorder for which she was undergoing evaluation. Apparently she developed weakness in her lower extremities along with difficulty in speech since last May that was progressive later developed urinary incontinence and was wheelchair-bound in October for which she was evaluated at [facility] and here. She underwent a MRI of the spine which did not show any acute abnormalities, initial blood workup were negative for, neuropathies. 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 EMG ruled out any acute or subacute neuropathies including myasthenia gravis or CIDP or GBS, possibly has a chronic neuropathy in the lower extremity. no sedation She is on empiric solumedrol 60mg b.i.d. with which we see some improvement in her respiratory efforts, so we will switch very slowly taper it over several weeks Withholding MRI of the brain due to metallic tracheostomy tube. Respiratory: Acute hypoxemic respiratory failure due to neuromuscular disease currently status post tracheostomy on 01/30/2025 Currently on ventilator support through tracheostomy tube, could tolerate trach collar for about 1.5 hours yesterday Currently on ventilator support, we will try her again on trach collar today GI: On G-tube feeds Infectious disease: Pancultures negative Previously treated with empiric vanc and Zosyn Hypothyroidism: On levothyroxine Musculoskeletal: Decubitus ulcer prevention protocol Lines: peripherals no caro Prophylaxis: Lovenox, famotidine Labs every 72 hours Quality Stroke Does the patient have a stroke diagnosis?: No VTE Prior VTE?: No VTE Risk Level:: Medical - moderate - high VTE Device Contraindication: Treatment Not Indicated VTE Drug Contraindication: N/A - Med Ordered
--- NOTE | 2025-02-10 19:17 | PC.NURSE ---
Assumed care of patient 0700, Patient alert and oriented x4, nonverbal but writes needs, denies pain or discomfort at rest, patient on PSV most of morning and tolerated well, on trach mask after noon, suctioned x2 while on trach mask, tube feed tolerated well, purewick in place voiding clear yellow urine
[2025-02-10 19:58] LABS: Glucose, Whole Blood 174 mg/dL (60-115)
[2025-02-11] VITALS (26 sets, daily range): BP systolic 104–150; BP diastolic 61–96; PULSE 62–98; RESP 15–29; TEMP 36.1–36.8; O2SAT 90–99; BMI 31.4
[2025-02-11 00:06] LABS: Glucose, Whole Blood 198 mg/dL (60-115)
[2025-02-11 06:10] LABS: Glucose, Whole Blood 217 mg/dL (60-115)
[2025-02-11] MEDS: Acetaminop/Codeine 120/12/5 mL 5 ML SOLUTION 10 ML PO ×3 (08:36→21:10)
[2025-02-11] MEDS: 0.9 % Sodium Chloride Flush 3 ML SYRINGE IVFLUSH ×3 (08:36→21:12)
[2025-02-11] MEDS: Chlorhexidine Gluc Oral Rinse 15 ML MOUTHWASH BUCCAL ×2 (08:36→21:05)
--- NOTE | 2025-02-11 11:28 | PM.CCPN ---
Subjective Subjective Date of Service: 02/11/25 Interval History: Remained on trach collar all day and night yesterday, took her off of trach collar this morning doing okay. Trying on [place] valve Critical Care Time (minutes): 35 Physical Exam Vital Signs: Vital Signs: Last Vital Signs Temp 97.0 F 02/11/25 08:00 Pulse 80 02/11/25 11:00 Resp 15 02/11/25 11:00 BP 119/80 02/11/25 11:00 Pulse Ox 92 02/11/25 11:00 O2 Del Method Trach Collar 02/11/25 11:00 O2 Flow Rate 5 02/11/25 11:00 FiO2 28 02/11/25 11:00 Oxygen Flow Rate 8 02/08/25 10:00 BMI result Body Mass Index 31.4 General: Middle-aged lady, comfortable in mild distress Nutritional Appearance: well nourished and overweight Eyes: appearance normal, both eyes and all related structures; Alignment and Position: alignment normal and position normal Neck: No lymphadenopathy, no thyromegaly Resp: bilateral air entry equal, occasional added sounds present Cardio: Regular rate, regular rhythm; Heart sounds: S1 normal heart sound present and S2 normal heart sound present GI: soft, nontender, no guarding, no hepatosplenomegaly : bladder normal to inspection, bladder normal to palpation, no renal angle tenderness Skin: no rashes or lesions noted and elasticity normal Neuro: oriented to person, oriented to place, oriented to time and weakness in lower extremities, vocal cord palsy Objective Data Labs 02/09/25 04:39 02/09/25 04:39 Labs: Laboratory Results - last 24 hr 02/10/25 02/10/25 02/10/25 12:36 17:55 23:53 POC Glucose 191 H 174 H 198 H 02/11/25 06:06 POC Glucose 217 H Microbiology Microbiology Results: Microbiology 01/11/25 22:38 Blood - Venous Blood Culture - Final No growth after 5 days. 01/11/25 22:38 Blood - Venous Blood Culture - Final No growth after 5 days. 01/09/25 06:28 Blood - Venous Blood Culture - Final No growth after 5 days. 01/09/25 06:28 Blood - Venous Blood Culture - Final No growth after 5 days. 01/11/25 22:19 Sputum - Suctioned Gram Stain - Final 01/11/25 22:19 Sputum - Suctioned Sputum Culture - Final 01/06/25 23:32 Blood - Venous Blood Culture - Final No growth after 5 days. 01/06/25 23:32 Blood - Venous Blood Culture - Final No growth after 5 days. Progress Note: A&P Assessment and plan (1) Acute and chronic respiratory failure with hypercapnia: Status: Acute (2) Obesity hypoventilation syndrome: Status: Acute (3) Acute on chronic respiratory failure with hypoxia and hypercapnia: Status: Acute (4) Pneumonia: Status: Acute (5) Muscle weakness: Status: Acute Plan 44-year-old lady with underlying morbid obesity with obesity hyperventilation, PCOS, panic disorder, hypothyroidism admitted on 01/07/2025 with dyspnea to telemetry [facility] in treated empirically for community-acquired pneumonia. Hospital course further complicated by iatrogenic hyperoxia resulting in acute hypercapnia requiring BiPAP support. Patient transferred to telemetry [facility] on 01/08/2025. Overnight patient with another episode you iatrogenic hyperoxia with resultant hypercapnia requiring intubation with ventilatory support and transfer to intensive care unit, further complicated by CO2 narcosis associated aspiration. Extubated uneventfully on 01/10/2025. Overnight with pulmonary aspiration requiring emergent intubation, thereafter with hypoxia refractory to ventilatory support requiring emergent bedside bronchoscopy with secretion clearance with improvement in oxygenation. EMG with no evidence of myopathy. Extubated on 01/19/2025. Continues to require BiPAP support on and off. Overall with what appears to be poor respiratory strength resulting in recurrent aspirations while on BiPAP support necessitating re-intubation overnight on 01/26/2025. Status post tracheostomy/gastrostomy on 01/30/2025, currently off trach collar since this morning Neuro: Neuro: Patient has history of a progressive neurological disorder for which she was undergoing evaluation. Apparently she developed weakness in her lower extremities along with difficulty in speech since last May that was progressive later developed urinary incontinence and was wheelchair-bound in October for which she was evaluated at [facility] and here. She underwent a MRI of the spine which did not show any acute abnormalities, initial blood workup were negative for, neuropathies. 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 EMG ruled out any acute or subacute neuropathies including myasthenia gravis or CIDP or GBS, possibly has a chronic neuropathy in the lower extremity. no sedation She was started on Solumedrol 60mg TID will decrease to 60mg daily today. which we saw improvement in her respiratory efforts with soludemrol, so we will switch very slowly taper it over several weeks Withholding MRI of the brain due to metallic tracheostomy tube. Respiratory: Acute hypoxemic respiratory failure due to neuromuscular disease currently status post tracheostomy on 01/30/2025 Currently on ventilator support through tracheostomy tube, could tolerate off trach collar this morning GI: On G-tube feeds Infectious disease: Pancultures negative Previously treated with empiric vanc and Zosyn Hypothyroidism: On levothyroxine Musculoskeletal: Decubitus ulcer prevention protocol Lines: peripherals no caro Prophylaxis: Lovenox, famotidine Waiting on bed in [facility] for transfer, tomorrow is her birthday wants to leave after the celebrations are over if she finds a bed. Labs every 72 hours Quality Stroke Does the patient have a stroke diagnosis?: No VTE Prior VTE?: No VTE Risk Level:: Medical - moderate - high VTE Device Contraindication: Treatment Not Indicated VTE Drug Contraindication: N/A - Med Ordered
[2025-02-11 12:23] LABS: Glucose, Whole Blood 188 mg/dL (60-115)
[2025-02-11] MEDS: ERYTHROMYCIN ETHYLSUCCINATE 100 MG PO ×2 (12:48→17:20)
[2025-02-11 17:21] LABS: Glucose, Whole Blood 205 mg/dL (60-115)
--- NOTE | 2025-02-11 20:11 | PC.NURSE ---
Assumed care of patient 0700, Patient alert and oriented x4, nonverbal but writes needs, denies pain or discomfort at rest, patient on trach mask this morning, transitioned to RA this afternoon, suctioned x2 via trach, tube feed tolerated well, purewick in place voiding clear yellow urine. Plan for possible discharge to Rehab tomorrow.
[2025-02-12] VITALS (24 sets, daily range): BP systolic 116–153; BP diastolic 72–117; PULSE 59–105; RESP 17–29; TEMP 36.1–36.4; O2SAT 90–98; BMI 31.4
[2025-02-12] MEDS: ERYTHROMYCIN ETHYLSUCCINATE 100 MG PO ×5 (00:13→23:47)
[2025-02-12 00:17] LABS: Glucose, Whole Blood 254 mg/dL (60-115)
[2025-02-12] MEDS: Acetaminop/Codeine 120/12/5 mL 5 ML SOLUTION 10 ML PO ×4 (03:35→20:57)
[2025-02-12 05:08] LABS: MANUAL DIFF FLAG NO
[2025-02-12 05:19] LABS: Hematocrit 36.3 % (37.0-47.0); Hemoglobin 12.4 g/dl (12.0-16.0); Imm Gran Abs Auto 1.12 X10*3/uL (0.00-0.03); Imm Gran Pct Auto 5.0 % (0.0-0.4); Lymphocytes Absolute Auto 0.9 X10*3/uL (1.2-4.9); Mean Corpuscular HGB Conc 34.2 g/dl (31.0-35.0); Mean Corpuscular Hemoglobin 28.6 pg (27.0-33.0); Mean Corpuscular Volume 83.6 fL (80.0-98.0); NRBC Abs Auto 0.000 X10*3/uL (0.0-0.012); NRBC Pct Auto 0.0 /100WBC (0.0-0.2); Platelet Count 367 X10*3/uL (160-400); Red Blood Count 4.34 X10*6/uL (4.20-5.50); White Blood Count 22.4 X10*3/uL (4.8-10.8)
[2025-02-12 05:42] LABS: Alanine Aminotransferase 93 U/L (0-31); Albumin Level 3.9 g/dL (3.5-5.0); Alkaline Phosphatase 108 U/L (39-117); Anion Gap 15 (12-20); Aspartate Amino Transferase 29 U/L (5-31); Blood Urea Nitrogen 24 mg/dL (9-16); Calcium 9.3 mg/dL (8.4-10.2); Carbon Dioxide 30 mmol/L (22-29); Chloride 96 mmol/L (96-108); Creatinine Clr Calc Pharmacy 190.6; Estimated Glomerular Filt Rate > 60; Magnesium 2.2 mg/dL (1.6-2.6); Potassium 4.9 mmol/L (3.3-5.1); Sodium 136 mmol/L (135-145); Total Protein 6.9 g/dL (6.5-8.0)
[2025-02-12] MEDS: 0.9 % Sodium Chloride Flush 3 ML SYRINGE IVFLUSH ×3 (08:20→21:05)
[2025-02-12] MEDS: Chlorhexidine Gluc Oral Rinse 15 ML MOUTHWASH BUCCAL ×2 (08:21→20:57)
--- NOTE | 2025-02-12 09:25 | PM.CCPN ---
Subjective Subjective Date of Service: 02/12/25 Critical Care Time (minutes): 60 Physical Exam Vital Signs: Vital Signs: Last Vital Signs Temp 97.2 F 02/12/25 04:00 Pulse 69 02/12/25 06:00 Resp 21 H 02/12/25 06:00 BP 128/76 02/12/25 06:00 Pulse Ox 95 02/12/25 06:00 O2 Del Method Room Air 02/12/25 06:00 O2 Flow Rate 5 02/11/25 14:00 FiO2 28 02/12/25 05:00 Oxygen Flow Rate 8 02/08/25 10:00 BMI result Body Mass Index 31.4 Const: General: cooperative, healthy appearing, comfortable, no acute distress, well developed, alert, awake and Physically active Orientation/consciousness: oriented to person, oriented to place and oriented to time HEENT: Other: tracheostomy in place, clean, dry, intact Head: Yes normal to inspection, Yes normocephalic and Yes atraumatic Eyes: General: appearance normal, both eyes and all related structures Neck: Neck: Yes normal visual inspection, Yes full ROM, Yes no meningeal signs, Yes trachea midline and Yes supple Chest: Chest palpation & inspection: normal inspection of the chest Resp: Other: no appreciable rales, rhonchi, wheezing Effort & Inspection: normal respiratory effort Cardio: Rate: regular rate Rhythm: regular rhythm GI: Other: soft, no appreciable tenderness to palpation throughout Inspection: Yes normal to inspection, No Abdominal wall edema and No distended Skin: General skin exam: no rashes or lesions noted Neuro: General: oriented to person, oriented to place, oriented to time, tone normal and no meningeal signs Extrem: Other: appreciable 1+ pitting edema to bilateral shins General: Yes normal to inspection, Yes full ROM and Yes capillary refill normal Psych: Appearance: grossly normal Objective Data Labs 02/12/25 04:30 02/12/25 04:30 Labs: Laboratory Results - last 24 hr 02/11/25 02/11/25 02/12/25 12:19 17:17 00:11 WBC RBC Hgb Hct MCV MCH MCHC RDW Plt Count MPV Immature Gran % (Auto) Neut % (Auto) Lymph % (Auto) [place] % (Auto) Eos % (Auto) Baso % (Auto) Lymph # (Auto) [place] # (Auto) Eos # (Auto) Baso # (Auto) Abs Immat Gran (auto) Absolute Neuts (auto) Absolute Nucleated RBC Nucleated RBC % (auto) Sodium Potassium Chloride Carbon Dioxide Anion Gap BUN Creatinine Estim Creat Clear Calc Estimated GFR POC Glucose 188 H 205 H 254 H Random Glucose Calcium Phosphorus Magnesium Total Bilirubin AST ALT Alkaline Phosphatase Total Protein Albumin 02/12/25 04:30 WBC 22.4 H RBC 4.34 D Hgb 12.4 D Hct 36.3 L D MCV 83.6 MCH 28.6 MCHC 34.2 RDW 15.6 Plt Count 367 MPV 9.0 L Immature Gran % (Auto) 5.0 H Neut % (Auto) 88.0 H Lymph % (Auto) 4.2 L [place] % (Auto) 2.5 Eos % (Auto) 0.0 Baso % (Auto) 0.3 Lymph # (Auto) 0.9 L [place] # (Auto) 0.6 Eos # (Auto) 0.0 Baso # (Auto) 0.1 Abs Immat Gran (auto) 1.12 H Absolute Neuts (auto) 19.7 H Absolute Nucleated RBC 0.000 Nucleated RBC % (auto) 0.0 Sodium 136 Potassium 4.9 Chloride 96 Carbon Dioxide 30 H Anion Gap 15 BUN 24 H Creatinine 0.38 L Estim Creat Clear Calc 190.6 Estimated GFR > 60 POC Glucose Random Glucose 289 H Calcium 9.3 Phosphorus 3.6 Magnesium 2.2 Total Bilirubin 0.3 AST 29 ALT 93 H Alkaline Phosphatase 108 Total Protein 6.9 Albumin 3.9 Microbiology Microbiology Results: Microbiology 01/11/25 22:38 Blood - Venous Blood Culture - Final No growth after 5 days. 01/11/25 22:38 Blood - Venous Blood Culture - Final No growth after 5 days. 01/09/25 06:28 Blood - Venous Blood Culture - Final No growth after 5 days. 01/09/25 06:28 Blood - Venous Blood Culture - Final No growth after 5 days. 01/11/25 22:19 Sputum - Suctioned Gram Stain - Final 01/11/25 22:19 Sputum - Suctioned Sputum Culture - Final 01/06/25 23:32 Blood - Venous Blood Culture - Final No growth after 5 days. 01/06/25 23:32 Blood - Venous Blood Culture - Final No growth after 5 days. Progress Note: A&P Assessment and plan (1) Respiratory failure: Status: Acute Plan Patient is a 44 Y F w/ hypothyroidism, morbid obesity c/b obesity hypoventilation syndrome, and progressive neurological disorder NOS c/b weakness and urinary incontinence, presented to ED on 01/07 w/ dyspnea, admitted?medicine; hospital course c/b hypercarbic respiratory failure, intubated 01/09, extubated 01/10; ICU course c/b recurrent respiratory failure, re-intubated 01/11, extubated 01/19, re-intubated 01/26, s/p trach/PEG 01/30 N: neurological disorder NOS, appreciate neurology recommendations CV: no acute issues R: acute respiratory failure c/b multiple re-intubations, s/p trach 01/30, daily trach collar trials GI: s/p PEG 01/30, tube feeds : no acute issues H: no acute issues; chemical DVT prophylaxis ID: no acute issues E: hypothyroidism?on home levothyroxine S: pending transfer Quality Stroke Does the patient have a stroke diagnosis?: No VTE Prior VTE?: No VTE Risk Level:: Medical - moderate - high VTE Device Contraindication: Treatment Not Indicated VTE Drug Contraindication: N/A - Med Ordered
--- NOTE | 2025-02-12 11:50 | MHC.CLN ---
F/U REVIEWED LABS DISCUSSED AT ROUNDS WITH PT REPORTED GLUCERNA FORMULA MAKES HER FEEL SICK IE NAUSEOUS NOTED ELEVATED POC PT RECEIVING PROMOTE TF (PER PT REQUEST) AT MAX GAOL RATE 55ML/HR WITH 240ML FREE WATER Q 8 HRS PROVIDES 1320KCALS (24KCALS/KG), 82.5G PROTEIN (1.5G/KG), 1827ML TOTAL WATER FROM FORMULA AND FLUSHES (33.5ML/KG) MONITOR TOLERANCE AND LYTES
[2025-02-12 12:39] LABS: Glucose, Whole Blood 248 mg/dL (60-115)
--- NOTE | 2025-02-12 13:24 | HO.WOUND ---
Wound Consult: Follow up 44yr old?[place] [facility] See progress notes and H&P for detailed history.? Wound consult follow up for Bridge of nose and sacral area.? Patient remains in ICU level of care. New consult placed for Trach site assessment - Trach site assessed no wound noted- no MASD noted - mild erythema around stoma no s/s of infection or injury at this time. Sutures remain intact at this time and are away from Trach insertion site and are not impacting gauze dressing application or Trach care. No topical orders needed at this time - continue routine trach care. Bridge of Nose - Resolved ?Route Salesperson Related Deep Tissue Injury- continues to improve - no device in use at this time. Tissue remains intact hyperpigmented no s/s of injury at this time. Coccyx and Left Sacrum / Buttock - remains with improving un able to assess at this time as patient was already in recliner chair - no new topical recommendations needed at this time. Waffle cushion in use. Etiology: ?MASD Moisture Associated Skin Damage Goals of Treatment: Off Load Pressure and barrier cream / Triad Genital area assessment - Confirmed HSV outbreak - moisture management continues to be goals of care. Right Heel Linear Lines - maroon intact. No topical recommendations needed at this time - area continues to evolve - remains intact and slightly blanchable - no devices in use with in the area - Etiology continues to be unknown. Recommendations: 1. Turn and Reposition every 2 hours and as needed for patient comfort.? Use pillows or wedges to support off loading positions. 2. Off Load all bony prominences with use of pillows and heel boots if needed.? Apply Preventative foams where needed. ? 3. Monitor for incontinence and moisture control, use barrier creams when needed for prevention and treatment. 4. Provide adequate and supplemental nutrition.? 5. Continue low air loss mattress. 6. When applicable maintain blood glucose levels per Providers order. Bridge of nose - Routine cleansing. Apply Skin prep be sure to avoid eyes allow to dry. Apply Foam dressing to pad skin from device. Change Daily and PRN. Coccyx - ?Off Load Pressure with Q2 hr turns and use of pillows - Cleanse with PH balance spray or wipes, pat dry. ?Apply thin layer of Triad to wound bed - only pat and dab no scrub and rub when soiling occurs. Reapply thin layer PRN after each episode of incontinence. Genital - Gently cleanse with routine cleansing, dry well. Keep dry and free from moisture. May use Interdry to translocate moisture from area. May use Ice Pack to sooth area if discomfort experienced. Re-consult wound care Nurse for wound deterioration or wound changes.
--- NOTE | 2025-02-12 15:14 | MHC.CM.PN ---
Pt awaiting [facility] auth for [facility] transfer - pt with elevated WBC today: no s/sx infection noted: [facility] requesting the following before clinical acceptance: 1. CXR 2. UA 3. Sputum cx 4. Blood Cx Information given to ICU MD: Transfer on hold pending return of testing and payor auth.
[2025-02-12 16:35] LABS: Appearance Urine Clear; Glucose Urine UA Negative (Negative); PH 8.0 (5.0-9.0); Specific Gravity - Urine 1.015 (1.005-1.025); UMIC TRIGGER UA YES
--- NOTE | 2025-02-12 17:15 | PC.NURSE ---
Assumed care of patient 0700. Patient feels mild anxiety relieved with PRN Atarax. Patient provided full bed bath 11:00. Patient up to [place] recliner chair approx 11:30AM and remains up at 17:15. placed new orders for CXR, blood cultures, sputum culture, and UA. [facility] is LTAC facility following patient for potential discharge from hospital. Patient on room air this shift. Trach is 7.0 Portex, adjustable flange, no inner cannula.
[2025-02-12 18:14] LABS: Glucose, Whole Blood 287 mg/dL (60-115)
[2025-02-13] VITALS (24 sets, daily range): BP systolic 119–169; BP diastolic 75–99; PULSE 58–109; RESP 18–35; TEMP 35.9–36.4; O2SAT 90–96; BMI 31.6
[2025-02-13 00:02] LABS: Glucose, Whole Blood 260 mg/dL (60-115)
[2025-02-13] MEDS: ERYTHROMYCIN ETHYLSUCCINATE 100 MG PO ×4 (05:51→23:49)
[2025-02-13 05:52] LABS: MANUAL DIFF FLAG NO
[2025-02-13 05:55] LABS: Glucose, Whole Blood 283 mg/dL (60-115)
[2025-02-13 05:56] LABS: Hematocrit 38.4 % (37.0-47.0); Hemoglobin 12.7 g/dl (12.0-16.0); Imm Gran Abs Auto 0.55 X10*3/uL (0.00-0.03); Imm Gran Pct Auto 3.1 % (0.0-0.4); Lymphocytes Absolute Auto 0.8 X10*3/uL (1.2-4.9); Mean Corpuscular HGB Conc 33.1 g/dl (31.0-35.0); Mean Corpuscular Hemoglobin 27.9 pg (27.0-33.0); Mean Corpuscular Volume 84.4 fL (80.0-98.0); NRBC Abs Auto 0.000 X10*3/uL (0.0-0.012); NRBC Pct Auto 0.0 /100WBC (0.0-0.2); Platelet Count 355 X10*3/uL (160-400); Red Blood Count 4.55 X10*6/uL (4.20-5.50); White Blood Count 17.8 X10*3/uL (4.8-10.8)
[2025-02-13 06:12] LABS: Anion Gap 17 (12-20); Blood Urea Nitrogen 27 mg/dL (9-16); Calcium 9.5 mg/dL (8.4-10.2); Carbon Dioxide 29 mmol/L (22-29); Chloride 96 mmol/L (96-108); Creatinine Clr Calc Pharmacy 191.3; Estimated Glomerular Filt Rate > 60; Magnesium 2.2 mg/dL (1.6-2.6); Potassium 5.2 mmol/L (3.3-5.1); Sodium 137 mmol/L (135-145)
[2025-02-13] MEDS: 0.9 % Sodium Chloride Flush 3 ML SYRINGE IVFLUSH ×3 (08:50→23:49)
[2025-02-13] MEDS: Acetaminop/Codeine 120/12/5 mL 5 ML SOLUTION 10 ML PO ×3 (08:50→20:28)
[2025-02-13] MEDS: Chlorhexidine Gluc Oral Rinse 15 ML MOUTHWASH BUCCAL ×3 (08:51→20:29)
--- NOTE | 2025-02-13 10:26 | MHC.CM.PN ---
Addendum entered by Jenn Espinosa 02/13/25 12:33: Received call from Rita Moore RN liasion at [facility]: CXR results reviewed and discussed pending cultures. Rita states pt's down trending WBC today and lack of symptoms have been reviewed by the medical team and she is set to transfer to [facility] on 02/14. Rita states she will expedite [employer] auth and stated to arrange transport for tomorrow at 1pm. Call placed to [facility]: arranged pick and shovel man for 1pm. Updated ICU care team and pt on plans. Med nec form on front of pt chart. CM to follow. Original Note: Pt was waiting for [facility] auth to transfer to [facility] however, on 02/12, pt had a WBC >20 necessitating de león cultures per [facility] request. CXR resulted: no new issues: waiting for sputum, urine and blood cx results to be sent to [facility] then pt will need payor auth by [facility]. Per discussion w/respiratory, pt may be able to transfer via BLS if maintaining on the trach collar. CM to follow
--- NOTE | 2025-02-13 10:28 | P.PNCC_ITS ---
Subjective Subjective Date of Service: 02/13/25 Interval History: no significant overnight events Critical Care Time (minutes): 60 Physical Exam 2 Vital Signs: Vital Signs: Last Vital Signs Temp 97.6 F 02/13/25 08:00 Pulse 89 02/13/25 09:00 Resp 18 02/13/25 09:00 BP 150/95 H 02/13/25 09:00 Pulse Ox 93 02/13/25 09:00 O2 Del Method Room Air 02/13/25 09:00 O2 Flow Rate 5 02/12/25 12:00 FiO2 28 02/13/25 07:00 Oxygen Flow Rate 8 02/08/25 10:00 BMI result Body Mass Index 31.6 Const: General: cooperative, healthy appearing, comfortable, no acute distress, well developed, alert, awake and Physically active O rientation/consciousness: patient oriented x3 HEENT: Head: Yes normal to inspection, Yes normocephalic and Yes atraumatic Eyes: General: appearance normal, both eyes and all related structures Neck: Other: tracheostomy tube midline, clean, dry, intact Neck: Yes full ROM, Yes no meningeal signs, Yes trachea midline and Yes supple Chest: Chest palpation & inspection: normal inspection of the chest Resp: Other: no appreciable overt rales, rhonchi, wheezing Effort & Inspection: normal respiratory effort Cardio: Rate: tachycardic Rhythm: regular rhythm GI: Inspection: Yes normal to inspection, No Abdominal wall edema and No distended Palpation (GI): Soft to palpation, not firm, nontender and no guarding Skin: General skin exam: no rashes or lesions noted Neuro: General: patient oriented x3, tone normal and no meningeal signs Extrem: Other: appreciable 1+ pitting edema to bilateral shins General: Yes normal to inspection, Yes full ROM and Yes capillary refill normal Psych: Appearance: grossly normal Objective Data Labs 02/13/25 05:29 02/13/25 05:29 Labs: Laboratory Results - last 24 hr 02/12/25 02/12/25 02/12/25 12:19 16:13 18:08 WBC RBC Hgb Hct MCV MCH MCHC RDW Plt Count MPV Immature Gran % (Auto) Neut % (Auto) Lymph % (Auto) [place] % (Auto) Eos % (Auto) Baso % (Auto) Lymph # (Auto) [place] # (Auto) Eos # (Auto) Baso # (Auto) Abs Immat Gran (auto) Absolute Neuts (auto) Absolute Nucleated RBC Nucleated RBC % (auto) Sodium Potassium Chloride Carbon Dioxide Anion Gap BUN Creatinine Estim Creat Clear Calc Estimated GFR POC Glucose 248 H 287 H Random Glucose Calcium Phosphorus Magnesium Urine Color Yellow Urine Appearance Clear Urine pH 8.0 Ur Specific [place] 1.015 Urine Protein Negative Urine Glucose (UA) Negative Urine Ketones Negative Urine Blood Negative Urine Nitrite Negative Ur Leukocyte Esterase Trace H Urine RBC 0-2 Urine WBC 0-5 Ur Squamous Epith Cells 3-5 Urine Bacteria Trace Hyaline Casts 0-2 02/12/25 02/13/25 02/13/25 23:57 05:29 05:47 WBC 17.8 H RBC 4.55 Hgb 12.7 Hct 38.4 MCV 84.4 MCH 27.9 MCHC 33.1 RDW 15.7 Plt Count 355 MPV 9.3 L Immature Gran % (Auto) 3.1 H Neut % (Auto) 89.5 H Lymph % (Auto) 4.4 L [place] % (Auto) 2.7 Eos % (Auto) 0.0 Baso % (Auto) 0.3 Lymph # (Auto) 0.8 L [place] # (Auto) 0.5 Eos # (Auto) 0.0 Baso # (Auto) 0.1 Abs Immat Gran (auto) 0.55 H Absolute Neuts (auto) 15.9 H Absolute Nucleated RBC 0.000 Nucleated RBC % (auto) 0.0 Sodium 137 Potassium 5.2 H Chloride 96 Carbon Dioxide 29 Anion Gap 17 BUN 27 H Creatinine 0.38 L Estim Creat Clear Calc 191.3 Estimated GFR > 60 POC Glucose 260 H 283 H Random Glucose 309 H Calcium 9.5 Phosphorus 3.3 Magnesium 2.2 Urine Color Urine Appearance Urine pH Ur Specific [place] Urine Protein Urine Glucose (UA) Urine Ketones Urine Blood Urine Nitrite Ur Leukocyte Esterase Urine RBC Urine WBC Ur Squamous Epith Cells Urine Bacteria Hyaline Casts Microbiology Microbiology Results: Microbiology 02/12/25 16:07 Sputum - Suctioned Gram Stain - Final 02/12/25 16:07 Sputum - Suctioned Routine Culture - Preliminary Culture in progress. 01/11/25 22:38 Blood - Venous Blood Culture - Final No growth after 5 days. 01/11/25 22:38 Blood - Venous Blood Culture - Final No growth after 5 days. 01/09/25 06:28 Blood - Venous Blood Culture - Final No growth after 5 days. 01/09/25 06:28 Blood - Venous Blood Culture - Final No growth after 5 days. 01/11/25 22:19 Sputum - Suctioned Gram Stain - Final 01/11/25 22:19 Sputum - Suctioned Sputum Culture - Final 01/06/25 23:32 Blood - Venous Blood Culture - Final No growth after 5 days. 01/06/25 23:32 Blood - Venous Blood Culture - Final No growth after 5 days. Progress Note: A&P Assessment and plan (1) Respiratory failure: Status: Acute Plan Patient is a 44 Y F w/ hypothyroidism, morbid obesity c/b obesity hypoventilation syndrome, and progressive neurological disorder NOS c/b weakness and urinary incontinence, presented to ED on 01/07 w/ dyspnea, admitted?medicine; hospital course c/b hypercarbic respiratory failure, intubated 01/09, extubated 01/10; ICU course c/b recurrent respiratory failure, re-intubated 01/11, extubated 01/19, re-intubated 01/26, s/p trach/PEG 01/30 N: neurological disorder NOS, appreciate neurology recommendations CV: no acute issues R: acute respiratory failure c/b multiple re-intubations, s/p trach 01/30, daily trach collar trials GI: s/p PEG 01/30, tube feeds : no acute issues H: no acute issues; chemical DVT prophylaxis ID: no acute issues; of note elevated WBC w/o stigmata of infection; to follow- up infectious work-up per facility request E: hypothyroidism?on home levothyroxine S: pending transfer Quality Stroke Does the patient have a stroke diagnosis?: No VTE Prior VTE?: No VTE Risk Level:: Medical - moderate - high VTE Device Contraindication: Treatment Not Indicated VTE Drug Contraindication: N/A - Med Ordered
--- NOTE | 2025-02-13 11:20 | PM.DS ---
DS: Providers Provider Date of Service: 02/14/25 Date of admission: 01/07/25 07:11 Date of discharge: 02/14/25 Primary care physician: Sunitha Rosales MD Consults: 01/07/25 08:25 Consult to Neurology Routine Consulting Provider: [facility] Reason for consultation: ?neuromuscular disorder vs somatiform 01/12/25 09:30 Consult to Wound Care Routine Reason for consultation: New MDPI 01/29/25 08:33 Consult to General Surgery Routine Consulting Provider: [facility] Sur[facility] Reason for consultation: Evaluate for tracheostomy / parenteral gastrostomy placement. Has provider been notified: No 02/05/25 09:34 Consult to Infectious Diseases Routine Consulting Provider: [facility] Reason for consultation: herpes DS: Transfer Hospital Acceptance Reason for Transfer: Long-Term Trach Care Name of Facility: [facility] DS: Diagnosis Discharge Diagnosis (1) Respiratory failure: Status: Acute DS: Summary Hospital Course Hospital Course: Patient is a 44 Y F w/ hypothyroidism, morbid obesity c/b obesity hypoventilation syndrome, and progressive neurological disorder NOS c/b weakness and urinary incontinence, presented to ED on 01/07 w/ dyspnea, admitted?medicine; hospital course c/b hypercarbic respiratory failure, intubated 01/09, extubated 01/10; ICU course c/b recurrent respiratory failure, re-intubated 01/11, extubated 01/19, re-intubated 01/26, s/p trach/PEG 01/30; ICU course marked by persistent respiratory failure, necessitating ventilator support, though improving Time Attestation Total time managing care of this patient today: 30 mintues. Discharge Coordination Time (in mins): 30 Quality: Safe Use of Opioids Does Pt have an Active Cancer Diagnosis on the Problem List?: No Quality: Stroke Does the patient have a stroke diagnosis?: No Physical Exam Vital Signs: Vital Signs: Last Vital Signs Temp 97.6 F 02/13/25 11:00 Pulse 77 02/13/25 11:00 Resp 26 H 02/13/25 11:00 BP 152/91 H 02/13/25 11:00 Pulse Ox 93 02/13/25 11:00 O2 Del Method Room Air 02/13/25 11:00 O2 Flow Rate 5 02/12/25 12:00 FiO2 28 02/13/25 07:00 Oxygen Flow Rate 8 02/08/25 10:00 BMI result Body Mass Index 31.6 Const: General: cooperative, healthy appearing, comfortable, no acute distress, well developed, alert, awake and Physically active Orientation/consciousness: patient oriented x3 HEENT: Head: Yes normal to inspection, Yes normocephalic and Yes atraumatic Eyes: General: appearance normal, both eyes and all related structures Neck: Other: tracheostomy tube clean, dry, intact Neck: Yes normal visual inspection, Yes full ROM, Yes trachea midline and Yes supple Chest: Chest palpation & inspection: normal inspection of the chest Resp: Other: no appreciable overt rales, rhonchi, wheezing Effort & Inspection: normal respiratory effort Cardio: Rate: tachycardic Rhythm: regular rhythm GI: Inspection: Yes normal to inspection, No Abdominal wall edema and No distended Palpation (GI): Soft to palpation, not firm, nontender, no guarding and not rigid Skin: General skin exam: no rashes or lesions noted Neuro: General: patient oriented x3, tone normal, moves all extremities and no focal motor deficits Extrem: Other: appreciable 1+ pitting edema to bilateral thighs General: Yes normal to inspection, Yes full ROM and Yes capillary refill normal Psych: Appearance: grossly normal DS: Data Data Completed and Pending Labs on day of discharge: Laboratory Results - last 24 hr 02/12/25 02/12/25 02/12/25 12:19 16:13 18:08 WBC RBC Hgb Hct MCV MCH MCHC RDW Plt Count MPV Immature Gran % (Auto) Neut % (Auto) Lymph % (Auto) [place] % (Auto) Eos % (Auto) Baso % (Auto) Lymph # (Auto) [place] # (Auto) Eos # (Auto) Baso # (Auto) Abs Immat Gran (auto) Absolute Neuts (auto) Absolute Nucleated RBC Nucleated RBC % (auto) Sodium Potassium Chloride Carbon Dioxide Anion Gap BUN Creatinine Estim Creat Clear Calc Estimated GFR POC Glucose 248 H 287 H Random Glucose Calcium Phosphorus Magnesium Urine Color Yellow Urine Appearance Clear Urine pH 8.0 Ur Specific [place] 1.015 Urine Protein Negative Urine Glucose (UA) Negative Urine Ketones Negative Urine Blood Negative Urine Nitrite Negative Ur Leukocyte Esterase Trace H Urine RBC 0-2 Urine WBC 0-5 Ur Squamous Epith Cells 3-5 Urine Bacteria Trace Hyaline Casts 0-2 0802/13/25 02/13/25 23:57 05:29 05:47 WBC 17.8 H RBC 4.55 Hgb 12.7 Hct 38.4 MCV 84.4 MCH 27.9 MCHC 33.1 RDW 15.7 Plt Count 355 MPV 9.3 L Immature Gran % (Auto) 3.1 H Neut % (Auto) 89.5 H Lymph % (Auto) 4.4 L [place] % (Auto) 2.7 Eos % (Auto) 0.0 Baso % (Auto) 0.3 Lymph # (Auto) 0.8 L [place] # (Auto) 0.5 Eos # (Auto) 0.0 Baso # (Auto) 0.1 Abs Immat Gran (auto) 0.55 H Absolute Neuts (auto) 15.9 H Absolute Nucleated RBC 0.000 Nucleated RBC % (auto) 0.0 Sodium 137 Potassium 5.2 H Chloride 96 Carbon Dioxide 29 Anion Gap 17 BUN 27 H Creatinine 0.38 L Estim Creat Clear Calc 191.3 Estimated GFR > 60 POC Glucose 260 H 283 H Random Glucose 309 H Calcium 9.5 Phosphorus 3.3 Magnesium 2.2 Urine Color Urine Appearance Urine pH Ur Specific [place] Urine Protein Urine Glucose (UA) Urine Ketones Urine Blood Urine Nitrite Ur Leukocyte Esterase Urine RBC Urine WBC Ur Squamous Epith Cells Urine Bacteria Hyaline Casts Preliminary micro results at discharge 02/12/25 16:07 Routine Culture - Preliminary Sputum - Suctioned Culture in progress. Discharge Plan Discharge Patient Disposition: Xfer LTC Discharge Diagnosis: Respiratory Failure Referrals: [facility] [Outside] - 1 Week Sunitha Rosales MD [Primary Care Provider, Internal Medicine] - 1 Week Discharge Medications: Continued bupropion HCl 150 mg tablet extended release 24 hr 150 mg PO QAM Qty: 90 2RF cholecalciferol (vitamin D3) 50 mcg (2,000 unit) capsule 50 mcg PO QAM 90 Days Qty: 90 2RF trazodone 50 mg tablet 50 mg PO BEDTIME Qty: 90 2RF levothyroxine 88 mcg tablet 88 mcg PO DAILY 90 Days Qty: 90 1RF omeprazole 20 mg capsule,delayed release(DR/EC) 20 mg PO QAM Qty: 30 1RF acetaminophen 500 mg tablet 500 - 1,000 mg PO Q8H PRN (Reason: Fever Or Pain) ibuprofen 400 mg tablet 400 mg PO Q6H PRN (Reason: Pain) loratadine 10 mg tablet 10 mg PO BEDTIME PRN (Reason: Allergy Symptoms) docusate sodium [Stool Softener] 100 mg capsule 100 mg PO BEDTIME celecoxib 200 mg capsule 200 mg PO BID PRN (Reason: mild pain) hydroxyzine HCl 25 mg tablet 25 mg PO BID PRN (Reason: Anxiety) olmesartan 5 mg tablet 5 mg PO DAILY riboflavin (vitamin B2) 100 mg tablet 200 mg PO BID Emgality Pen 120 mg/mL pen injector 120 mg subcut QMONTH chlorthalidone 25 mg tablet 25 mg PO DAILY atorvastatin 10 mg tablet 40 mg PO BEDTIME lisinopril 10 mg tablet 10 mg PO DAILY Ozempic 0.25 mg or 0.5 mg (2 mg/3 mL) pen injector 0.5 mg subcut TH Discharge Orders: Discharge Order (Routine); Ordered 02/14/25 Ordered By: Luz Lugo Activity on Discharge: As tolerated Stand Alone Forms: Patient Portal Discharge page Print Language: Turkish Care Plan Goals: Continued trach/ventilator wean. Health Concerns: See below. Plan of Treatment: Patient is a 44 Y F w/ hypothyroidism, morbid obesity c/b obesity hypoventilation syndrome, and progressive neurological disorder NOS c/b weakness and urinary incontinence, presented to ED on 01/07 w/ dyspnea, admitted?medicine; hospital course c/b hypercarbic respiratory failure, intubated 01/09, extubated 01/10; ICU course c/b recurrent respiratory failure, re-intubated 01/11, extubated 01/19, re-intubated 01/26, s/p trach/PEG 01/30; ICU course marked by persistent respiratory failure, necessitating ventilator support, though improving N: neurological disorder NOS, appreciate neurology recommendations CV: no acute issues R: acute respiratory failure c/b multiple re-intubations, s/p trach 01/30, daily trach collar trials, improving GI: s/p PEG 01/30, tube feeds : no acute issues H: no acute issues; chemical DVT prophylaxis ID: no acute issues E: hypothyroidism?on home levothyroxine S: pending transfer Assessment: See above.
[2025-02-13 11:31] LABS: Glucose, Whole Blood 169 mg/dL (60-115)
--- NOTE | 2025-02-13 15:55 | PC.NURSE ---
Assumed care of patient 0700. Patient provided full bed bath and up to Evans chair 08:30AM. Patient remains up in chair 16:00. She is on room air and tolerating activity. No cough, normal respiratory secretions with minimal suctioning provided. Voids pale yellow urine via purewick, normal odor. Denies pain, comfortable with scheduled medications. Family visited at bedside 09:00AM. Patient able to communicate by typing on cell phone or writing in notebook to make needs known. A+Ox4.
[2025-02-13 17:52] LABS: Glucose, Whole Blood 345 mg/dL (60-115)
--- NOTE | 2025-02-13 18:01 | HO.SKINPHOTO ---
Location: lower back/ gluteal fold Category: MASD Location: lower back/ gluteal fold [closer view, same site as above] Category: MASD triad applied to site, large foam in place.
[2025-02-13 23:54] LABS: Glucose, Whole Blood 318 mg/dL (60-115)
[2025-02-14] VITALS (16 sets, daily range): BP systolic 117–173; BP diastolic 69–91; PULSE 58–106; RESP 15–28; TEMP 36.4–36.7; O2SAT 89–97; BMI 31.6
[2025-02-14] MEDS: Acetaminop/Codeine 120/12/5 mL 5 ML SOLUTION 10 ML PO ×2 (04:19→08:45)
[2025-02-14 05:55] LABS: Glucose, Whole Blood 324 mg/dL (60-115)
[2025-02-14] MEDS: ERYTHROMYCIN ETHYLSUCCINATE 100 MG PO ×2 (06:00→12:41)
[2025-02-14] MEDS: Chlorhexidine Gluc Oral Rinse 15 ML MOUTHWASH BUCCAL (08:44)
[2025-02-14] MEDS: 0.9 % Sodium Chloride Flush 3 ML SYRINGE IVFLUSH (08:44)
--- NOTE | 2025-02-14 09:34 | P.PNCC_ITS ---
Subjective Subjective Date of Service: 02/14/25 Interval History: no significant overnight events Critical Care Time (minutes): 60 Physical Exam 2 Vital Signs: Vital Signs: Last Vital Signs Temp 98.0 F 02/14/25 09:00 Pulse 90 02/14/25 09:00 Resp 28 H 02/14/25 09:00 BP 148/85 H 02/14/25 09:00 Pulse Ox 89 L 02/14/25 09:00 O2 Del Method Room Air 02/14/25 09:00 O2 Flow Rate 5 02/14/25 06:00 FiO2 28 02/14/25 06:00 Oxygen Flow Rate 8 02/08/25 10:00 BMI result Body Mass Index 31.6 Const: General: cooperative, healthy appearing, comfortable, no acute distress, well developed, alert, awake and Physically active O rientation/consciousness: patient oriented x3 HEENT: Head: Yes normal to inspection, Yes normocephalic and Yes atraumatic Eyes: General: appearance normal, both eyes and all related structures Neck: Other: tracheostomy tube in place, clean, dry, intact Neck: Yes normal visual inspection, Yes full ROM, Yes trachea midline and Yes supple Chest: Chest palpation & inspection: normal inspection of the chest Resp: Other: no appreciable overt rales, rhonchi, wheezing Effort & Inspection: normal respiratory effort Cardio: Rate: tachycardic Rhythm: regular rhythm GI: Inspection: Yes normal to inspection, No Abdominal wall edema and No distended Palpation (GI): Soft to palpation, not firm, nontender, no guarding and not rigid Skin: General skin exam: no rashes or lesions noted Neuro: General: patient oriented x3, tone normal, moves all extremities and no focal motor deficits Extrem: Other: appreciable 1+ pitting edema to bilateral thighs General: Yes normal to inspection, Yes full ROM and Yes capillary refill normal Psych: Appearance: grossly normal Objective Data Labs 02/13/25 05:29 02/13/25 05:29 Labs: Laboratory Results - last 24 hr 02/13/25 02/13/25 02/13/25 11:28 17:39 23:49 POC Glucose 169 H 345 H 318 H 02/14/25 05:51 POC Glucose 324 H Microbiology Microbiology Results: Microbiology 02/12/25 16:07 Sputum - Suctioned Gram Stain - Final 02/12/25 16:07 Sputum - Suctioned Routine Culture - Preliminary Culture in progress. 02/12/25 14:04 Blood - Venous Blood Culture - Preliminary No growth after 24 hours. 02/12/25 14:04 Blood - Venous Blood Culture - Preliminary No growth after 24 hours. 01/11/25 22:38 Blood - Venous Blood Culture - Final No growth after 5 days. 01/11/25 22:38 Blood - Venous Blood Culture - Final No growth after 5 days. 01/09/25 06:28 Blood - Venous Blood Culture - Final No growth after 5 days. 01/09/25 06:28 Blood - Venous Blood Culture - Final No growth after 5 days. 01/11/25 22:19 Sputum - Suctioned Gram Stain - Final 01/11/25 22:19 Sputum - Suctioned Sputum Culture - Final 01/06/25 23:32 Blood - Venous Blood Culture - Final No growth after 5 days. 01/06/25 23:32 Blood - Venous Blood Culture - Final No growth after 5 days. Progress Note: A&P Assessment and plan (1) Acute on chronic respiratory failure with hypoxia and hypercapnia: Status: Acute Plan Patient is a 44 Y F w/ hypothyroidism, morbid obesity c/b obesity hypoventilation syndrome, and progressive neurological disorder NOS c/b weakness and urinary incontinence, presented to ED on 01/07 w/ dyspnea, admitted?medicine; hospital course c/b hypercarbic respiratory failure, intubated 01/09, extubated 01/10; ICU course c/b recurrent respiratory failure, re-intubated 01/11, extubated 01/19, re-intubated 01/26, s/p trach/PEG 01/30 N: neurological disorder NOS, appreciate neurology recommendations CV: no acute issues R: acute respiratory failure c/b multiple re-intubations, s/p trach 01/30, daily trach collar trials GI: s/p PEG 01/30, tube feeds : no acute issues H: no acute issues; chemical DVT prophylaxis ID: no acute issues; of note elevated WBC w/o stigmata of infection; to follow- up infectious work-up per facility request E: hypothyroidism?on home levothyroxine S: pending transfer Quality Stroke Does the patient have a stroke diagnosis?: No VTE Prior VTE?: No VTE Risk Level:: Medical - moderate - high VTE Device Contraindication: Treatment Not Indicated VTE Drug Contraindication: N/A - Med Ordered
[2025-02-14 12:23] LABS: Glucose, Whole Blood 221 mg/dL (60-115)
--- NOTE | 2025-02-14 15:15 | MHC.CM.PN ---
IMM 02/14/25 Patient is discharged today. She will transfer to [facility] via S this afternoon. Signed Discharge paperwork has been sent to the facility.
== END 2025-02-14 13:35 | DRG 4 ==
LOC: HO.ED 01-07 06:59 → HO.EDOVER 01-07 07:19 → HO.ICU 01-08 05:32 → HO.IMC 01-08 15:29 → HO.ICU 01-09 05:29
PROVIDERS: Internal Medicine Critical Care Medicine; Internal Medicine Pulmonary Disease; Nurse Practitioner Family; Physician Assistant; Physician Assistant Medical; Registered Nurse Community Health; Surgery; Admitting Provider Internal Medicine; Emergency Provider Emergency Medicine Emergency Medical Services; PCP Family Medicine; Visit Provider Internal Medicine Critical Care Medicine
PROC: 0B113F4 Bypass Trachea to Cutaneous with Tracheostomy Device, Percutaneous Approach (ICD-10-PCS; principal; 2025-01-30 07:30)
PROC: 0DH63UZ Insertion of Feeding Device into Stomach, Percutaneous Approach (ICD-10-PCS; CPT 43246; 2025-01-30 07:30)
DX: E28.2 Polycystic ovarian syndrome (principal); A41.9 Sepsis, unspecified organism; J96.21 Acute and chronic respiratory failure with hypoxia; J96.22 Acute and chronic respiratory failure with hypercapnia; R65.21 Severe sepsis with septic shock; G93.41 Metabolic encephalopathy; R57.0 Cardiogenic shock; E66.2 Morbid (severe) obesity with alveolar hypoventilation; N17.9 Acute kidney failure, unspecified; G12.21 Amyotrophic lateral sclerosis; E03.9 Hypothyroidism, unspecified; Z68.37 Body mass index [BMI] 37.0-37.9, adult; I95.2 Hypotension due to drugs; E83.39 Other disorders of phosphorus metabolism; A60.00 Herpesviral infection of urogenital system, unspecified; D64.9 Anemia, unspecified; E11.9 Type 2 diabetes mellitus without complications; T42.75XA Adverse effect of unspecified antiepileptic and sedative-hypnotic drugs, initial encounter; F41.0 Panic disorder [episodic paroxysmal anxiety]; E78.5 Hyperlipidemia, unspecified; R49.0 Dysphonia; Z99.3 Dependence on wheelchair; Z20.822 Contact with and (suspected) exposure to COVID-19; Z79.890 Hormone replacement therapy; Z79.899 Other long term (current) drug therapy
CPT/HCPCS: 36415; 36600; 71045; 71275; 80048; 80053; 80202; 80307; 81001; 82040; 82550; 82803; 82947; 83520; 83605; 83735; 83880; 84100; 84478; 84484; 84702; 85007; 85025; 85027; 85610; 85652; 86038; 86140; 86596; 86695; 86696; 87040; 87070; 87205; 87255; 87389; 87637; 87640; 87641; 92526; 92610; 93005; 93306; 93970; 94002; 94003; 94010; 94640; 94660; 94799; 95885; 95912; 97110; 97163; 99285; J0131; J0133; J0168; J0295; J0456; J0613; J0616; J0651; J0690; J0696; J1120; J1171; J1265; J1308; J1650; J1938; J2003; J2004; J2250; J2405; J2470; J2543; J2704; J2765; J2919; J3010; J3373; J3374; J3475; J3480; J7120; P9047; Q9967

== ENCOUNTER → 2025-01-06 19:37 | Outpatient (BNV) | payer OTHER, SELFPAY | PROVIDERS: Admitting Provider Internal Medicine; Emergency Provider Emergency Medicine Emergency Medical Services; Visit Provider Internal Medicine | DX: R94.31 Abnormal electrocardiogram [ECG] [EKG] (principal); R06.02 Shortness of breath | CPT/HCPCS: 93010 ==

== ENCOUNTER → 2025-01-06 19:42 | Outpatient (BNV) | payer OTHER, SELFPAY | PROVIDERS: Admitting Provider Internal Medicine; Emergency Provider Emergency Medicine Emergency Medical Services; Visit Provider Radiology Diagnostic Radiology | DX: J84.9 Interstitial pulmonary disease, unspecified (principal) | CPT/HCPCS: 71045 ==

== ENCOUNTER → 2025-01-07 02:21 | Outpatient (BNV) | payer OTHER, SELFPAY | PROVIDERS: Emergency Provider Emergency Medicine Emergency Medical Services; Visit Provider Radiology Diagnostic Radiology | DX: J98.11 Atelectasis (principal) | CPT/HCPCS: 71275 ==

== ENCOUNTER 2025-01-07 07:11 | Outpatient (BNV) | payer OTHER, SELFPAY | END 2025-01-09 06:25 | PROVIDERS: Admitting Provider Internal Medicine; Emergency Provider Emergency Medicine Emergency Medical Services; Visit Provider Radiology Diagnostic Radiology | DX: R22.43 Localized swelling, mass and lump, lower limb, bilateral (principal); R09.02 Hypoxemia | CPT/HCPCS: 71045; 93970 ==

== ENCOUNTER 2025-01-07 07:11 | Outpatient (BNV) | payer OTHER, SELFPAY | END 2025-01-11 19:32 | PROVIDERS: Admitting Provider Internal Medicine; Emergency Provider Emergency Medicine Emergency Medical Services; PCP Family Medicine; Visit Provider Radiology Diagnostic Radiology | DX: Z46.82 Encounter for fitting and adjustment of non-vascular catheter (principal) | CPT/HCPCS: 71045 ==

== ENCOUNTER 2025-01-07 07:11 | Outpatient (BNV) | payer OTHER, SELFPAY | END 2025-01-17 16:20 | PROVIDERS: Admitting Provider Internal Medicine; Emergency Provider Emergency Medicine Emergency Medical Services; PCP Family Medicine; Visit Provider Radiology Diagnostic Radiology | DX: J90 Pleural effusion, not elsewhere classified (principal) | CPT/HCPCS: 71045 ==

== ENCOUNTER 2025-01-07 07:11 | Outpatient (BNV) | payer OTHER, SELFPAY | END 2025-01-10 23:30 | PROVIDERS: Admitting Provider Internal Medicine; Emergency Provider Emergency Medicine Emergency Medical Services; PCP Family Medicine; Visit Provider Radiology Diagnostic Radiology | DX: R91.8 Other nonspecific abnormal finding of lung field (principal); Z46.82 Encounter for fitting and adjustment of non-vascular catheter | CPT/HCPCS: 71045 ==

== ENCOUNTER 2025-01-07 07:11 | Outpatient (BNV) | payer OTHER, SELFPAY | END 2025-01-10 07:00 | PROVIDERS: Admitting Provider Internal Medicine; Emergency Provider Emergency Medicine Emergency Medical Services; PCP Family Medicine; Visit Provider Internal Medicine Cardiovascular Disease | DX: I51.89 Other ill-defined heart diseases (principal) | CPT/HCPCS: 93306 ==

== ENCOUNTER 2025-01-07 07:11 | Outpatient (BNV) | payer OTHER, SELFPAY | END 2025-02-12 12:39 | PROVIDERS: Admitting Provider Internal Medicine; Emergency Provider Emergency Medicine Emergency Medical Services; PCP Family Medicine; Visit Provider Radiology Diagnostic Radiology | DX: J96.90 Respiratory failure, unspecified, unspecified whether with hypoxia or hypercapnia (principal) | CPT/HCPCS: 71045 ==

== ENCOUNTER 2025-01-07 07:11 | Outpatient (BNV) | payer OTHER, SELFPAY | END 2025-01-16 12:00 | PROVIDERS: Admitting Provider Internal Medicine; Emergency Provider Emergency Medicine Emergency Medical Services; PCP Family Medicine; Visit Provider Psychiatry & Neurology Neurology | DX: G62.89 Other specified polyneuropathies (principal) | CPT/HCPCS: 95886; 95912 ==

== ENCOUNTER 2025-01-07 07:11 | Outpatient (BNV) | payer OTHER, SELFPAY | END 2025-01-09 05:00 | PROVIDERS: Admitting Provider Internal Medicine; Emergency Provider Emergency Medicine Emergency Medical Services; PCP Family Medicine; Visit Provider Internal Medicine Cardiovascular Disease | DX: R94.31 Abnormal electrocardiogram [ECG] [EKG] (principal); R00.1 Bradycardia, unspecified | CPT/HCPCS: 93010 ==

== ENCOUNTER 2025-01-07 07:11 | Outpatient (BNV) | payer OTHER, SELFPAY | END 2025-01-11 20:36 | PROVIDERS: Admitting Provider Internal Medicine; Emergency Provider Emergency Medicine Emergency Medical Services; PCP Family Medicine; Visit Provider Internal Medicine Cardiovascular Disease | DX: R00.1 Bradycardia, unspecified (principal) | CPT/HCPCS: 93010 ==

== ENCOUNTER 2025-01-07 07:11 | Outpatient (BNV) | payer OTHER, SELFPAY | END 2025-01-25 09:15 | PROVIDERS: Admitting Provider Internal Medicine; Emergency Provider Emergency Medicine Emergency Medical Services; PCP Family Medicine; Visit Provider Radiology Diagnostic Radiology | DX: J90 Pleural effusion, not elsewhere classified (principal) | CPT/HCPCS: 71045 ==

== ENCOUNTER 2025-01-07 07:11 | Outpatient (BNV) | payer OTHER, SELFPAY | END 2025-01-30 08:49 | PROVIDERS: Admitting Provider Internal Medicine; Emergency Provider Emergency Medicine Emergency Medical Services; PCP Family Medicine; Visit Provider Radiology Diagnostic Radiology | DX: R91.8 Other nonspecific abnormal finding of lung field (principal) | CPT/HCPCS: 71045 ==

== ENCOUNTER → 2025-01-07 07:11 | Outpatient (BNV) | payer OTHER, SELFPAY | PROVIDERS: Admitting Provider Internal Medicine; Emergency Provider Emergency Medicine Emergency Medical Services; Visit Provider Registered Nurse Community Health | DX: J96.22 Acute and chronic respiratory failure with hypercapnia (principal) | CPT/HCPCS: 31500 ==

== ENCOUNTER → 2025-01-07 07:11 | Outpatient (BNV) | payer OTHER, SELFPAY | PROVIDERS: Admitting Provider Internal Medicine; Emergency Provider Emergency Medicine Emergency Medical Services; PCP Family Medicine; Visit Provider Surgery | DX: J96.21 Acute and chronic respiratory failure with hypoxia (principal); J96.22 Acute and chronic respiratory failure with hypercapnia; R53.1 Weakness | CPT/HCPCS: 31600; 99222; 99499 ==

== ENCOUNTER → 2025-01-07 07:11 | Outpatient (BNV) | payer OTHER, SELFPAY | PROVIDERS: Admitting Provider Internal Medicine; Emergency Provider Emergency Medicine Emergency Medical Services; Visit Provider Internal Medicine Pulmonary Disease | DX: J96.22 Acute and chronic respiratory failure with hypercapnia (principal); T17.900A Unspecified foreign body in respiratory tract, part unspecified causing asphyxiation, initial encounter; E66.2 Morbid (severe) obesity with alveolar hypoventilation; Z68.37 Body mass index [BMI] 37.0-37.9, adult | CPT/HCPCS: 99291; 99292 ==

== ENCOUNTER → 2025-01-07 07:11 | Outpatient (BNV) | payer OTHER, SELFPAY | PROVIDERS: Admitting Provider Internal Medicine; Emergency Provider Emergency Medicine Emergency Medical Services; PCP Family Medicine; Visit Provider Internal Medicine | DX: B00.9 Herpesviral infection, unspecified (principal) | CPT/HCPCS: 99221 ==

== ENCOUNTER → 2025-01-07 07:11 | Outpatient (BNV) | payer OTHER, SELFPAY | PROVIDERS: Admitting Provider Internal Medicine; Emergency Provider Emergency Medicine Emergency Medical Services; Visit Provider Internal Medicine | DX: J96.22 Acute and chronic respiratory failure with hypercapnia (principal); R53.1 Weakness; E66.01 Morbid (severe) obesity due to excess calories; Z68.42 Body mass index [BMI] 45.0-49.9, adult | CPT/HCPCS: 99223; 99499 ==

== ENCOUNTER → 2025-01-07 07:11 | Outpatient (BNV) | payer OTHER, SELFPAY | PROVIDERS: Admitting Provider Internal Medicine; Emergency Provider Emergency Medicine Emergency Medical Services; Visit Provider Psychiatry & Neurology Neurology | DX: R53.1 Weakness (principal) | CPT/HCPCS: 99222 ==

== ENCOUNTER 2025-06-13 10:18 | Outpatient (REF) | payer OTHER, SELFPAY ==
[2025-06-13 10:24] LABS: MANUAL DIFF FLAG NO
--- OUTSIDE RECORDS SUMMARY | 2025-06-13 10:27 | XMS_ITS | Encounter Summary ---
[facility] [address] [place] [address] Care Team Providers Care Geology Teacher Name Role Phone Venu Morales MD Primary Care Provider [phone] Encounter Details Date Type Department Care Team (Late st Contact Info) Description 12/08/2024 Lab Requisition [facility] - Main Lab [address] [place] [address] Irish Gentile MD [address] [place] [phone] Essential (primary) hypertension Social History Tobacco Use [...] LAB CHEMISTRY METHOD 12/08/2024 9:01 AM EDT [facility] Potassium 4.0 3.5 - 5.5 mmol/L LAB CHEMISTRY METHOD 12/08/2024 9:01 AM [facility] Chloride 98 96 - 110 mmol/L LAB CHEMISTRY METHOD 12/08/2024 9:01 AM [facility] CO2 31 21 - 32 mmol/L LAB CHEMISTRY METHOD 12/08/2024 9:01 AM [facility] Anion Gap 9 3 - 11 LAB CHEMISTRY METHOD 12/08/2024 9:01 AM [facility] Glucose 84 70 - 100 mg/dL LAB CHEMISTRY METHOD 12/08/2024 9:01 AM [facility] BUN 26(H) 5 - 25 mg/dL LAB CHEMISTRY METHOD 12/08/2024 9:01 AM [facility] Creatinine 0.49(L) 0.50 - 1.10 mg/dL LAB CHEMISTRY METHOD 12/08/2024 9:01 AM [facility] eGFR 118 >=60 mL/min/1. 73m2 LAB CHEMISTRY METHOD 12/08/2024 9:01 AM [facility] Comment:Calculation based on the Chronic Kidney Disease Epidemiology Collaboration (CKD-EPI) equation refit without adjustment for race. BUN/Creatinine Ratio 53.1 LAB CHEMISTRY METHOD 12/08/2024 9:01 AM [facility] Calcium 9.4 8.5 - 10.5 mg/dL LAB CHEMISTRY METHOD 12/08/2024 9:01 AM [facility] Blood Venous blood specimen / Unknown Venipuncture / Unknown 12/08/2024 4:31 AM EDT 12/08/2024 8:06 AM EDT us Irish Gentile MD LAB BLOOD ORDERABLES Final Resu lt [facility] [address] [place] [address], [place] [phone] * (ABNORMAL) Complete blood count (12/08/2024 4:31 AM EDT) [facility] WBC 9.3 4.8 - 10.8 K/mcL LAB HEMETOLOGY METHOD 12/08/2024 8:26 AM [facility] RBC 4.10 3.80 - 4.80 M/mcL LAB HEMETOLOGY METHOD 12/08/2024 8:26 AM [facility] Hemoglobin 11.1(L) 11.5 - 16.0 g/dL LAB HEMETOLOGY METHOD 12/08/2024 8:26 AM [facility] Hematocrit 34.5(L) 35.0 - 47.0 % LAB HEMETOLOGY METHOD 12/08/2024 8:26 AM [facility] MCV 85.2 79.0 - 98.0 FL LAB HEMETOLOGY METHOD 12/08/2024 8:26 AM [facility] MCH 27.4 27.0 - 32.0 pcg LAB HEMETOLOGY METHOD 12/08/2024 8:26 AM [facility] MCHC 32.2 32.0 - 37.0 g/dL LAB HEMETOLOGY METHOD 12/08/2024 8:26 AM [facility] RDW 14.0 11.0 - 15.0 % LAB HEMETOLOGY METHOD 12/08/2024 8:26 AM [facility] Platelets 253 130 - 400 K/mcL LAB HEMETOLOGY METHOD 12/08/2024 8:26 AM [facility] MPV 10.0 7.0 - 11.0 FL LAB HEMETOLOGY METHOD 12/08/2024 8:26 AM [facility] NRBC 0.0 <1.0 % LAB HEMETOLOGY METHOD 12/08/2024 8:26 AM [facility] NRBC Absolute 0.00 <0.10 K/mcL LAB HEMETOLOGY METHOD 12/08/2024 8:26 AM EDT [facility] Blood Venous blood specimen / Unknown Venipuncture / Unknown 12/08/2024 4:31 AM EDT 12/08/2024 8:06 AM EDT us Irish Gentile MD LAB BLOOD ORDERABLES Final Resu lt [facility] [address] [place] [address], documented in this encounter Visit Diagnoses Diagnosis Essential (primary) hypertension Unspecified essential hypertension documented in this encounter Care Teams Geology Teacher Relationship Specialty Start Date End Date Venu Morales MD [address] [place] [address], [phone] PCP - General Family Medicine 07/25/24 documented as of this encounter
--- OUTSIDE RECORDS SUMMARY | 2025-06-13 10:27 | XMS_ITS | Encounter Summary ---
[facility] Address [address] [place] [address] Care Team Providers Care Keno Attendant Name Role Phone Venu Morales MD Primary Care Provider [phone] Encounter Details Date Type Department Care Team (Latest Contact Info) Description 11/14/2024 Lab Requisition [facility] - Main Lab [address] [facility] [place] [address] Irish Gentile MD [address] [place] [address] Essential (primary) hypertension; Type 2 diabetes mellitus without complications (CMS/HCC V24, CMS/HCC V28) Social History Tobacco Use Types Packs/Day Years [...] Associated Diagnosis Comments COMPLETE BLOOD COUNT Routine 11/14/2024 5:24 AM EDT Essential (primary) hypertension Type 2 diabetes mellitus without complications (CMS/HCC V24, CMS/HCC V28) HEMOGLOBIN A1C Routine 11/14/2024 5:24 AM EDT Essential (primary) hypertension Type 2 diabetes mellitus without complications (CMS/HCC V24, CMS/HCC V28) BASIC METABOLIC PANEL Routine 11/14/2024 5:24 AM EDT Essential (primary) hypertension Type 2 diabetes mellitus without complications (CMS/[facility] V24, [facility] V28) documented in this encounter Results * Hemoglobin A1c (11/14/2024 5:24 AM EDT) Pathologist [facility] Hemoglobin A1C 4.6 <6.5 % LAB CHEMISTRY METHOD 11/14/2024 2:04 PM EDT [facility] Mean Bld Glu Estim. 85 mg/dL LAB CHEMISTRY METHOD 11/14/2024 2:04 PM EDT [facility] Blood Venous blood specimen / Unknown Venipuncture / Unknown 11/14/2024 5:24 AM EDT 11/14/2024 10:36 AM EDT us Irish Gentile MD LAB BLOOD ORDERABLES Final Resu lt [facility] [address] [place] [address], * (ABNORMAL) Basic metabolic panel (11/14/2024 5:24 AM EDT) [facility] Sodium 136 133 - 145 mmol/L LAB CHEMISTRY METHOD 11/14/2024 12:56 PM [facility] Potassium 4.6 3.5 - 5.5 mmol/L LAB CHEMISTRY METHOD 11/14/2024 12:56 PM [facility] Chloride 101 96 - 110 mmol/L LAB CHEMISTRY METHOD 11/14/2024 12:56 PM [facility] CO2 28 21 - 32 mmol/L LAB CHEMISTRY METHOD 11/14/2024 12:56 PM [facility] Anion Gap 7 3 - 11 LAB CHEMISTRY METHOD 11/14/2024 12:56 PM [facility] Glucose 70 70 - 100 mg/dL LAB CHEMISTRY METHOD 11/14/2024 12:56 PM [facility] BUN 26(H) 5 - 25 mg/dL LAB CHEMISTRY METHOD 11/14/2024 12:56 PM EDT [facility] Creatinine 0.54 0.50 - 1.10 mg/dL LAB CHEMISTRY METHOD 11/14/2024 12:56 PM EDT [facility] eGFR 115 >=60 mL/min/1. 73m2 LAB CHEMISTRY METHOD 11/14/2024 12:56 PM EDT [facility] Comment:Calculation based on the Chronic Kidney Disease Epidemiology Collaboration (CKD-EPI) equation refit without adjustment for race. BUN/Creatinine Ratio 48.1 LAB CHEMISTRY METHOD 11/14/2024 12:56 PM EDT [facility] Calcium 8.8 8.5 - 10.5 mg/dL LAB CHEMISTRY METHOD 11/14/2024 12:56 PM EDT [facility] Blood Venous blood specimen / Unknown Venipuncture / Unknown 11/14/2024 5:24 AM EDT 11/14/2024 10:36 AM EDT us Irish Gentile MD LAB BLOOD ORDERABLES Final Resu lt [facility] [address] [place] [address], * (ABNORMAL) Complete blood count (11/14/2024 5:24 AM EDT) WBC 10.2 4.8 - 10.8 K/mcL LAB HEMETOLOGY METHOD 11/14/2024 12:32 PM EDT [facility] RBC 4.30 3.80 - 4.80 M/mcL LAB HEMETOLOGY METHOD 11/14/2024 12:32 PM EDT [facility] Hemoglobin 11.7 11.5 - 16.0 g/dL LAB HEMETOLOGY METHOD 11/14/2024 12:32 PM EDT [facility] Hematocrit 37.3 35.0 - 47.0 % LAB HEMETOLOGY METHOD 11/14/2024 12:32 PM EDT [facility] MCV 87.1 79.0 - 98.0 FL LAB HEMETOLOGY METHOD 11/14/2024 12:32 PM EDT [facility] MCH 27.3 27.0 - 32.0 pcg LAB HEMETOLOGY METHOD 11/14/2024 12:32 PM EDT [facility] MCHC 31.4(L) 32.0 - 37.0 g/dL LAB HEMETOLOGY METHOD 11/14/2024 12:32 PM EDT [facility] RDW 14.1 11.0 - 15.0 % LAB HEMETOLOGY METHOD 11/14/2024 12:32 PM EDT [facility] Platelets 361 130 - 400 K/mcL LAB HEMETOLOGY METHOD 11/14/2024 12:32 PM EDT [facility] MPV 9.9 7.0 - 11.0 FL LAB HEMETOLOGY METHOD 11/14/2024 12:32 PM EDT [facility] NRBC 0.0 <1.0 % LAB HEMETOLOGY METHOD 11/14/2024 12:32 PM EDT [facility] NRBC Absolute 0.00 <0.10 K/mcL LAB HEMETOLOGY METHOD 11/14/2024 12:32 PM EDT [facility] Blood Venous blood specimen / Unknown Venipuncture / Unknown 11/14/2024 5:24 AM EDT 11/14/2024 10:36 AM EDT us Irish Gentile MD LAB BLOOD ORDERABLES Final Resu lt [facility] [address] [place] [address], documented in this encounter Visit Diagnoses Diagnosis Essential (primary) hypertension Unspecified essential hypertension Type 2 diabetes mellitus without complications (CMS/HCC V24, CMS/HCC V28) documented in this encounter Care Teams Keno Attendant Relationship Specialty Start Date End Date Venu Morales MD [address] [place] [address], [phone] PCP - General Family Medicine 07/25/24 documented as of this encounter
--- OUTSIDE RECORDS SUMMARY | 2025-06-13 10:27 | XMS_ITS | Encounter Summary ---
Author Organization [facility] Address [address] [place] [address] Care Team Providers Care Research Scientist Name Role Phone Venu Morales MD Primary Care Provider [phone] Encounter Details Date Type Department Care Team (Late st Contact Info) Description 09/06/2024 Lab Requisition [facility] - Main Lab [address] [facility] [place] [address] Venu Morales MD [address] [place] [address], [phone] Type 2 diabetes mellitus without complications (CMS/HCC [...] Diagnosis Type 2 diabetes mellitus without complications (CMS/HCC V24, CMS/HCC V28) documented in this encounter Care Teams Research Scientist Relationship Specialty Start Date End Date [facility] [address] [phone] PCP - General Family Medicine 07/25/24 documented as of this encounter
--- OUTSIDE RECORDS SUMMARY | 2025-06-13 10:27 | XMS_ITS | Clinical Summary ---
Author Organization [address] [facility] Address [address] [place] [address] Phone Care Team Providers Care Grey Goods Tester Name Role Phone Venu Morales MD Primary Care Provider [phone] Social History Tobacco Use Types Packs/Day Years [...] Last Done Comments Breast Cancer Screening 1978 Colorectal Cancer Screening: Colonoscopy 1978 Diabetes: Annual Foot Exam 02/13/1988 Diabetes: Annual Retina Eye Exam 02/13/1988 Cervical Cancer Screening: Pap Smear 1999 Cholesterol Screening (Lipid Panel) 07/21/2023 Hepatitis C Screening 07/21/2023 Medicare Annual Wellness Visit 07/21/2023 Social Influencers of Health Screening 07/21/2023 Diabetes: Annual Urine Albumin-Creatinine Ratio (uACR) 01/13/2024 Depression Screening 06/21/2024 COVID-19 Vaccine ( season) 2025 09/11/2024 Influenza Vaccine (#1) 2025 , 05/05/2023, 03/23/2022, Additional history exists Diabetes: Blood Sugar Control Test (HGBA1C) 05/17/2025 11/14/2024, 09/11/2024, 08/04/2024, Additional history exists Diabetes: Annual GFR (Glomerular Filtration Rate) 12/08/2025 12/08/2024, 11/27/2024, 11/14/2024, Additional history exists Hypertension/CHF/CAD Annual BMP Blood Test 12/08/2025 12/08/2024, 11/27/2024, 11/14/2024, Additional history exists DTaP,Tdap,and Td Vaccines (10 - Td or Tdap) 10/24/2027 10/23/2017, 08/03/2016, 02/22/2009, Additional history exists RSV Immunization Adult Patients (1 - 1-dose 75+ series) 2053 IPV Vaccines Completed 08/09/1981, 08/20, 1978, Additional history exists MMR Vaccines Completed 08/21/1991, 05/27/1979 Hepatitis A Vaccines Aged Out 05/07/2008, 06/24/19 08 No longer eligible based on patient's age to complete this topic Hepatitis B Vaccines Completed 05/07/2008, 07/25/2007, 06/24/2007 HIV Screening Completed 05/01/2021 Pneumococcal Vaccine: Pediatrics (0 to 5 Years) and At-Risk Patients (6 to 49 Years) Completed 05/05/2023 HIB Vaccines Aged Out No longer eligi ble based on patient's age to complete this topic HPV Vaccines Aged Out No longer eligi ble based on patient's age to complete this topic Meningococcal ACWY Vaccine Aged Out N o longer eligible based on patient's age to complete this topic Meningococcal B Vaccine Aged Out No l onger eligible based on patient's age to complete this topic RSV Immunization Patients Under 20 months Aged Out No longer eligible based on patient's age to complete this topic Varicella Vaccines Aged Out No longer eligible based on patient's age to complete this topic Procedures Procedure Name Priority Date/Time Associated Diagnosis Comments BASIC METABOLIC PANEL Routine 12/08/2024 4:31 AM EDT Essential (primary) hypertension HEMOGLOBIN A1C Routine 11/14/2024 5:24 AM EDT Essential (primary) hypertension Type 2 diabetes mellitus without complications ([facility] V24, [facility] V28) from Last 3 Months or Most Recently Relevant to Health Maintenance Results * (ABNORMAL) Basic metabolic panel (12/08/2024 4:31 AM EDT) Sodium 138 133 - 145 mmol/L LAB CHEMISTRY METHOD 12/08/2024 9:01 AM [facility] Potassium 4.0 3.5 - 5.5 mmol/L LAB CHEMISTRY METHOD 12/08/2024 9:01 AM [facility] Chloride 98 96 - 110 mmol/L LAB CHEMISTRY METHOD 12/08/2024 9:01 AM [facility] CO2 31 21 - 32 mmol/L LAB CHEMISTRY METHOD 12/08/2024 9:01 AM [facility] Anion Gap 9 3 - 11 LAB CHEMISTRY METHOD 12/08/2024 9:01 AM [facility] Glucose 84 70 - 100 mg/dL LAB CHEMISTRY METHOD 12/08/2024 9:01 AM [facility] BUN 26(H) 5 - 25 mg/dL LAB CHEMISTRY METHOD 12/08/2024 9:01 AM [facility] Creatinine 0.49(L) 0.50 - 1.10 mg/dL LAB CHEMISTRY METHOD 12/08/2024 9:01 AM [facility] eGFR 118 >=60 mL/min/1. 73m2 LAB CHEMISTRY METHOD 12/08/2024 9:01 AM [facility] Comment:Calculation based on the Chronic Kidney Disease Epidemiology Collaboration (CKD-EPI) equation refit without adjustment for race. BUN/Creatinine Ratio 53.1 LAB CHEMISTRY METHOD 12/08/2024 9:01 AM [facility] Calcium 9.4 8.5 - 10.5 mg/dL LAB CHEMISTRY METHOD 12/08/2024 9:[address] [facility] Blood Venous blood specimen / Unknown Venipuncture / Unknown 12/08/2024 4:31 AM EDT 12/08/2024 8:06 AM EDT Irish Gentile MD LAB BLOOD ORDERABLES Final Resu lt Performing Organization Address City/[facility]/ZIP Co de Phone Number [facility] [address] [place] [address], [place] [phone] * Hemoglobin A1c (11/14/2024 5:24 AM EDT) Hemoglobin A1C 4.6 <6.5 % LAB CHEMISTRY METHOD 11/14/2024 2:[address] [facility] Mean Bld Glu Estim. 85 mg/dL LAB CHEMISTRY METHOD 11/14/2024 2:[address] [facility] Blood Venous blood specimen / Unknown Venipuncture / Unknown 11/14/2024 5:24 AM EDT 11/14/2024 10:36 AM EDT Irish Gentile MD LAB BLOOD ORDERABLES Final Resu lt Performing Organization Address City/[facility]/ZIP Co de Phone Number [facility] [address] [place] [address], from Last 3 Months or Most Recently Relevant to Health Maintenance Insurance MEDICAID - [place] [employer] MEDICARE Member Subscriber Plan / Payer (Ef fective 2013-Present) Name:GEORGIA VILLANUEVA Relation to Subscriber:Self Name:Georgia Villanueva Payer ID:[id number] Group ID:[id number] Type:Not on file Address: [address] [place] [address] Care Teams Grey Goods Tester Relationship Specialty Start Date End Date Venu Morales MD [address] [place] [address], [phone] PCP - General Family Medicine 07/25/24
--- OUTSIDE RECORDS SUMMARY | 2025-06-13 10:27 | XMS_ITS | Encounter Summary ---
Author Organization [facility] Address [address] [place] [address] Care Team Providers Care Photographic Printer Name Role Phone Venu Morales MD Primary Care Provider [phone] Encounter Details Date Type Department Care Team (Latest Contact Info) Description 11/27/2024 Lab Requisition [facility] - Main Lab [address] [facility] [place] [address] Irish Gentile MD [address] [place] [address] Type 2 diabetes mellitus with unspecified complications (CMS/HCC V24, CMS/HCC V28); Essential (primary) hypertension; Spondylosis without myelopathy or radiculopathy, lumbar region Social History Tobacco Use Types Packs/Day Years [...] Associated Diagnosis Comments COMPLETE BLOOD COUNT Routine 11/27/2024 6:02 AM EDT Type 2 diabetes mellitus with unspecified complications (CMS/HCC V24, CMS/HCC V28) Essential (primary) hypertension Spondylosis without myelopathy or radiculopathy, lumbar region COMPREHENSIVE METABOLIC PANEL Routine 11/27/2024 6:02 AM EDT Type 2 diabetes mellitus with unspecified complications (CMS/HCC V24, CMS/HCC V28) Essential (primary) hypertension Spondylosis without myelopathy or radiculopathy, lumbar region documented in this encounter Results * (ABNORMAL) Comprehensive metabolic panel (11/27/2024 6:02 AM EDT) Sodium 137 133 - 145 mmol/L LAB CHEMISTRY METHOD 11/27/2024 1:50 PM [facility] Potassium 4.4 3.5 - 5.5 mmol/L LAB CHEMISTRY METHOD 11/27/2024 1:50 PM [facility] Chloride 101 96 - 110 mmol/L LAB CHEMISTRY METHOD 11/27/2024 1:50 PM [facility] CO2 27 21 - 32 mmol/L LAB CHEMISTRY METHOD 11/27/2024 1:50 PM [facility] Anion Gap 9 3 - 11 LAB CHEMISTRY METHOD 11/27/2024 1:50 PM [facility] Glucose 55(L) 70 - 100 mg/dL LAB CHEMISTRY METHOD 11/27/2024 1:50 PM [facility] BUN 18 5 - 25 mg/dL LAB CHEMISTRY METHOD 11/27/2024 1:50 PM [facility] Creatinine 0.33(L) 0.50 - 1.10 mg/dL LAB CHEMISTRY METHOD 11/27/2024 1:50 PM [facility] eGFR 130 >=60 mL/min/1. 73m2 LAB CHEMISTRY METHOD 11/27/2024 1:50 PM [facility] Comment:Calculation based on the Chronic Kidney Disease Epidemiology Collaboration (CKD-EPI) equation refit without adjustment for race. BUN/Creatinine Ratio 54.5 LAB CHEMISTRY METHOD 11/27/2024 1:50 PM [facility] Calcium 9.4 8.5 - 10.5 mg/dL LAB CHEMISTRY METHOD 11/27/2024 1:50 PM [facility] AST (SGOT) 15 10 - 42 unit/L LAB CHEMISTRY METHOD 11/27/2024 1:50 PM EDT [facility] ALT (SGPT) 27 10 - 60 unit/L LAB CHEMISTRY METHOD 11/27/2024 1:50 PM EDT [facility] Alkaline Phosphatase 80 42 - 121 unit/L LAB CHEMISTRY METHOD 11/27/2024 1:50 PM EDT [facility] Total Protein 7.0 6.0 - 8.0 g/dL LAB CHEMISTRY METHOD 11/27/2024 1:50 PM EDT [facility] Albumin 3.3 3.2 - 5.0 g/dL LAB CHEMISTRY METHOD 11/27/2024 1:50 PM EDT [facility] Total Bilirubin 0.2 0.0 - 1.4 mg/dL LAB CHEMISTRY METHOD 11/27/2024 1:50 PM EDT [facility] Blood Venous blood specimen / Unknown Venipuncture / Unknown 11/27/2024 6:02 AM EDT 11/27/2024 11:11 AM EDT us Irish Gentile MD LAB BLOOD ORDERABLES Final Resu lt [facility] [address] [place] [address], * (ABNORMAL) Complete blood count (11/27/2024 6:02 AM EDT) WBC 6.9 4.8 - 10.8 K/mcL LAB HEMETOLOGY METHOD 11/27/2024 1:24 PM EDT [facility] RBC 3.80 3.80 - 4.80 M/mcL LAB HEMETOLOGY METHOD 11/27/2024 1:24 PM EDT [facility] Hemoglobin 10.6(L) 11.5 - 16.0 g/dL LAB HEMETOLOGY METHOD 11/27/2024 1:24 PM EDT [facility] Hematocrit 33.4(L) 35.0 - 47.0 % LAB HEMETOLOGY METHOD 11/27/2024 1:24 PM EDT [facility] MCV 87.2 79.0 - 98.0 FL LAB HEMETOLOGY METHOD 11/27/2024 1:24 PM EDT [facility] MCH 27.7 27.0 - 32.0 pcg LAB HEMETOLOGY METHOD 11/27/2024 1:24 PM EDT [facility] MCHC 31.7(L) 32.0 - 37.0 g/dL LAB HEMETOLOGY METHOD 11/27/2024 1:24 PM EDT [facility] RDW 13.8 11.0 - 15.0 % LAB HEMETOLOGY METHOD 11/27/2024 1:24 PM EDT [facility] Platelets 254 130 - 400 K/mcL LAB HEMETOLOGY METHOD 11/27/2024 1:24 PM EDT [facility] MPV 10.5 7.0 - 11.0 FL LAB HEMETOLOGY METHOD 11/27/2024 1:24 PM EDT [facility] NRBC 0.0 <1.0 % LAB HEMETOLOGY METHOD 11/27/2024 1:24 PM EDT [facility] NRBC Absolute 0.00 <0.10 K/mcL LAB HEMETOLOGY METHOD 11/27/2024 1:24 PM EDT [facility] Blood Venous blood specimen / Unknown Venipuncture / Unknown 11/27/2024 6:02 AM EDT 11/27/2024 11:11 AM EDT us Irish Gentile MD LAB BLOOD ORDERABLES Final Resu lt [facility] [address] [place] [address], documented in this encounter Visit Diagnoses Diagnosis Type 2 diabetes mellitus with unspecified complications (CMS/[facility] V24, CMS/[facility] V28) Essential (primary) hypertension Unspecified essential hypertension Spondylosis without myelopathy or radiculopathy, lumbar region documented in this encounter Care Teams Photographic Printer Relationship Specialty Start Date End Date Venu Morales MD [address] [place] [address], [phone] PCP - General Family Medicine 07/25/24 documented as of this encounter
--- OUTSIDE RECORDS SUMMARY | 2025-06-13 10:28 | XMS_ITS | Encounter Summary ---
Demographics Address [address] [place] [address] Home Phone Work Phone Mobile Phone Home Phone Home Phone Mobile Phone Preferred Language en Marital Status Unknown Adventist Affiliation Unknown Race Unknown Ethnic Group Unknown Author Organization [facility] Address [address] [place] [address] Care Team Providers Care Wellfield Technician Name Role Phone Venu Morales MD Primary Care Provider [phone] Encounter Details Date Type Department Care Team (Late st Contact Info) Description 08/16/2024 Lab Requisition [facility] - Main Lab [address] [place] [address] Venu Morales MD [address] [place] [address] [address] [place], [address] Type 2 diabetes mellitus without complications (CMS/HCC [...] Associated Diagnosis Comments COMPLETE BLOOD COUNT Routine 08/17/2024 5:13 AM EST Type 2 diabetes mellitus without complications (CMS/HCC) BASIC METABOLIC PANEL Routine 08/17/2024 5:13 AM EST Type 2 diabetes mellitus without complications (CMS/HCC) documented in this encounter Results * Basic metabolic panel (08/17/2024 5:13 AM EST) Sodium LAB CHEMISTRY METHOD 08/17/2024 11:41 AM [facility] Comment:Corrected result: Pr eviously reported as 141 mmol/L on 08/17/2024 at 1044 EST. Potassium LAB CHEMISTRY METHOD 08/17/2024 11:41 AM [facility] Comment:Corrected result: Pr eviously reported as 4.3 mmol/L on 08/17/2024 at 1044 EST. Chloride LAB CHEMISTRY METHOD 08/17/2024 11:41 AM EST [facility] Comment:Corrected result: Pr eviously reported as 109 mmol/L on 08/17/2024 at 1044 EST. CO2 LAB CHEMISTRY METHOD 08/17/2024 11:41 AM [facility] Comment:Corrected result: Pr eviously reported as 23 mmol/L on 08/17/2024 at 1044 EST. Anion Gap LAB CHEMISTRY METHOD 08/17/2024 11:41 AM [facility] Comment:Corrected result: Pr eviously reported as 9 on 08/17/2024 at 1044 EST. Glucose LAB CHEMISTRY METHOD 08/17/2024 11:41 AM [facility] Comment:Corrected result: Pr eviously reported as 86 mg/dL on 08/17/2024 at 1044 EST. BUN LAB CHEMISTRY METHOD 08/17/2024 11:41 AM [facility] Comment:Corrected result: Pr eviously reported as 33 mg/dL on 08/17/2024 at 1044 EST. Creatinine LAB CHEMISTRY METHOD 08/17/2024 11:41 AM [facility] Comment:Corrected result: Pr eviously reported as 1.09 mg/dL on 08/17/2024 at 1044 EST. eGFR LAB CHEMISTRY METHOD 08/17/2024 11:41 AM [facility] Comment:Corrected result: Pr eviously reported as 64 mL/min/1.73m2 on 08/17/2024 at 1044 EST. BUN/Creatinine Ratio LAB CHEMISTRY METHOD 08/17/2024 11:41 AM [facility] Comment:Corrected result: Pr eviously reported as 30.3 on 08/17/2024 at 1044 EST. Calcium LAB CHEMISTRY METHOD 08/17/2024 11:41 AM EST [facility] Comment:Corrected result: Pr eviously reported as 9.2 mg/dL on 08/17/2024 at 1044 EST. Blood Venous blood specimen / Unknown Venipuncture / Unknown 08/17/2024 5:13 AM EST 08/17/2024 9:11 AM EST us Venu Morales MD LAB BLOOD ORDERABLES Edited Resu lt - Final [facility] [address] [place] [address], [place] [phone] * Complete blood count (08/17/2024 5:13 AM EST) WBC LAB HEMETOLOGY METHOD 08/17/2024 11:08 AM EST [facility] Comment:Corrected result: Pr eviously reported as 7.8 K/mcL on 08/17/2024 at 0946 EST. RBC LAB HEMETOLOGY METHOD 08/17/2024 11:08 AM EST [facility] Comment:Corrected result: Pr eviously reported as 3.10 M/mcL on 08/17/2024 at 0946 EST. Hemoglobin LAB HEMETOLOGY METHOD 08/17/2024 11:08 AM EST [facility] Comment:Corrected result: Pr eviously reported as 9.2 g/dL on 08/17/2024 at 0946 EST. Hematocrit LAB HEMETOLOGY METHOD 08/17/2024 11:08 AM EST [facility] Comment:Corrected result: Pr eviously reported as 29.3 % on 08/17/2024 at 0946 EST. MCV LAB HEMETOLOGY METHOD 08/17/2024 11:08 AM EST [facility] Comment:Corrected result: Pr eviously reported as 94.2 FL on 08/17/2024 at 0946 EST. MCH LAB HEMETOLOGY METHOD 08/17/2024 11:08 AM EST [facility] Comment:Corrected result: Pr eviously reported as 29.6 pcg on 08/17/2024 at 0946 EST. MCHC LAB HEMETOLOGY METHOD 08/17/2024 11:08 AM EST [facility] Comment:Corrected result: Pr eviously reported as 31.4 g/dL on 08/17/2024 at 0946 EST. RDW LAB HEMETOLOGY METHOD 08/17/2024 11:08 AM EST [facility] Comment:Corrected result: Pr eviously reported as 12.6 % on 08/17/2024 at 0946 EST. Platelets LAB HEMETOLOGY METHOD 08/17/2024 11:08 AM EST [facility] Comment:Corrected result: Pr eviously reported as 244 K/mcL on 08/17/2024 at 0946 EST. MPV LAB HEMETOLOGY METHOD 08/17/2024 11:08 AM EST [facility] Comment:Corrected result: Pr eviously reported as 10.4 FL on 08/17/2024 at 0946 EST. NRBC LAB HEMETOLOGY METHOD 08/17/2024 11:08 AM EST [facility] Comment:Corrected result: Pr eviously reported as 0.0 % on 08/17/2024 at 0946 EST. NRBC Absolute LAB HEMETOLOGY METHOD 08/17/2024 11:08 AM EST [facility] Comment:Corrected result: Pr eviously reported as 0.00 K/mcL on 08/17/2024 at 0946 EST. Blood Venous blood specimen / Unknown Venipuncture / Unknown 08/17/2024 5:13 AM EST 08/17/2024 9:11 AM EST us Venu Morales MD LAB BLOOD ORDERABLES Edited Resu lt - Final [facility] [address] [place] [address], [place] [phone] documented in this encounter Visit Diagnoses Diagnosis Type 2 diabetes mellitus without complications (CMS/HCC V24, CMS/HCC V28) documented in this encounter Care Teams Wellfield Technician Relationship Specialty Start Date End Date Venu Morales MD [address] [place] [address], [phone] PCP - General Family Medicine 07/25/24 documented as of this encounter
--- OUTSIDE RECORDS SUMMARY | 2025-06-13 10:28 | XMS_ITS | Encounter Summary ---
Author Organization [facility] Address [address] [place] [address] Care Team Providers Care Field Technical Assistant Name Role Phone Sunitha Rosales Primary Care Provider [phone] Encounter Details Date Type Department Care Team (Late st Contact Info) Description 02/17/2025 Lab Requisition [facility] Lab [address] [place] [address] Gary Reynolds PA [address] [place] [address] No diagnosis; Acute and chronic respiratory failure with hypoxia (HCC) Social History Tobacco Use Types Packs/Day Years Used Date Smoking Tobacco: Never Smokeless Tobacco: Never Hunger Vital Sign Answer Date Recorded Within the past 12 months, y ou worried that your food would run out before you got the money to buy more. Patient declined Within the past 12 months, t he food you bought just didn't last and you didn't have money to get more. Patient declined [facility] Utilities Answer Date Recorded In the past 12 months has th e electric, gas, oil, or water company threatened to shut off services in your home? No 02/17/2025 Transportation Answer Date Recorded In the past 12 months, has l ack of reliable transportation kept you from medical appointments, meetings, work or from getting things needed for daily living? NOANSWER 02/17/2025 Housing Answer Date Recorded Housing Risk Low 1 02/17/2025 Housing Risk Medium Not on file 02/17/2025 Housing Risk High Not on file 02/17/2025 What is your living situation today? LSSTEADY 02/17/2025 Comments No Sex and Gender Information Value Date Recorded Sex Assigned at Female 02/17/2025 6:52 AM EDT Legal Sex Female 10:42 AM EDT Gender Identity Not on file Sexual Orientation Not on file documented as of this encounter Plan of Treatment Not on file documented as of this encounter Procedures * Due to [place] law, this organization might not be sharing negative HIV tests. Procedure Name Priority Date/Time Associated Diagnosis Comments RESPIRATORY CULTURE W/GRAM STAIN Routine 02/17/2025 9:36 AM EDT No diagnosis Acute and chronic respiratory failure with hypoxia (HCC) documented in this encounter Results * Due to [place] law, this organization might not be sharing negative HIV tests. * (ABNORMAL) Respiratory Culture w/Gram Stain (02/17/2025 9:36 AM EDT) Respiratory Culture Moderate Devorah parapsilosis species complex(A) MINIMUM INHIBITORY CONCENTRATION (JENNIFER) 02/21/2025 8:[address]T [facility] Gram Stain Result <10 per LPF Epithelial Cells 02/21/2025 8:[address]T [facility] Gram Stain Result >25 per LPF White Blood Cells Seen 02/21/2025 8:[address] EDT [facility] Gram Stain Result Few Gram Positive Cocci 02/21/2025 8:[address]T [facility] Gram Stain Result Rare Budding Yeast 02/21/2025 8:[address] [facility] Sputum Sputum / Unknown 02/17/2025 9:36 AM EDT 02/17/2025 11:51 AM EDT Narrative [facility] - 02/21/2025 8:25 AM EDT Many normal respiratory kellie present. us Gary GARCIA LAB MICROBIOLOGY - GENERAL O RDERABLES Final Result [facility] [address] [place] [address], [place] [phone] documented in this encounter Visit Diagnoses Diagnosis No diagnosis Acute and chronic respiratory failure with hypoxia documented in this encounter Additional Health Concerns Infection Onset Date Last Indicated Resolved Time R/O C.diff 02/17/2025 02/17/2025 02/19/2025 1:05 AM EDT documented as of this encounter Care Teams Field Technical Assistant Relationship Specialty Start Date End Date Sunitha Rosales [address] [place] [id number] PCP - General Family Medicine 03/02/25 documented as of this encounter
--- OUTSIDE RECORDS SUMMARY | 2025-06-13 10:28 | XMS_ITS | Encounter Summary ---
Demographics Address [address] [place] [address] Home Phone Work Phone Mobile Phone Home Phone Home Phone Mobile Phone Preferred Language en Marital Status Unknown Sabianist Affiliation Unknown Race Unknown Ethnic Group Unknown Author Organization [facility] Address [address] [place] [address] Care Team Providers Care Stitch Cleaner Name Role Phone Venu Morales MD Primary Care Provider [phone] Encounter Details Date Type Department Care Team (Late st Contact Info) Description 08/23/2024 Lab Requisition [facility] - Main Lab [address] [place] [address] Venu Morales MD [address] [place] [address] [address] [place], [phone] Type 2 diabetes mellitus without complications [...] Associated Diagnosis Comments COMPLETE BLOOD COUNT Routine 08/24/2024 6:05 AM EST Type 2 diabetes mellitus without complications (CMS/HCC) documented in this encounter Results * (ABNORMAL) Complete blood count (08/24/2024 6:05 AM EST) WBC 7.0 4.8 - 10.8 K/mcL LAB HEMETOLOGY METHOD 08/24/2024 10:27 AM EST [facility] RBC 4.10 3.80 - 4.80 M/mcL LAB HEMETOLOGY METHOD 08/24/2024 10:27 AM [facility] Hemoglobin 11.2(L) 11.5 - 16.0 g/dL LAB HEMETOLOGY METHOD 08/24/2024 10:27 AM [facility] Hematocrit 33.9(L) 35.0 - 47.0 % LAB HEMETOLOGY METHOD 08/24/2024 10:27 AM [facility] MCV 82.9 79.0 - 98.0 FL LAB HEMETOLOGY METHOD 08/24/2024 10:27 AM [facility] MCH 27.4 27.0 - 32.0 pcg LAB HEMETOLOGY METHOD 08/24/2024 10:27 AM [facility] MCHC 33.0 32.0 - 37.0 g/dL LAB HEMETOLOGY METHOD 08/24/2024 10:27 AM [facility] RDW 14.1 11.0 - 15.0 % LAB HEMETOLOGY METHOD 08/24/2024 10:27 AM [facility] Platelets 311 130 - 400 K/mcL LAB HEMETOLOGY METHOD 08/24/2024 10:27 AM [facility] MPV 9.7 7.0 - 11.0 FL LAB HEMETOLOGY METHOD 08/24/2024 10:27 AM [facility] NRBC 0.0 <1.0 % LAB HEMETOLOGY METHOD 08/24/2024 10:27 AM [facility] NRBC Absolute 0.00 <0.10 K/mcL LAB HEMETOLOGY METHOD 08/24/2024 10:27 AM [facility] Blood Venous blood specimen / Unknown Venipuncture / Unknown 08/24/2024 6:05 AM EST 08/24/2024 10:11 AM EST us Venu Morales MD LAB BLOOD ORDERABLES Final Resul t [facility] [address] [place] [address], documented in this encounter Visit Diagnoses Diagnosis Type 2 diabetes mellitus without complications (CMS/HCC V24, CMS/HCC V28) documented in this encounter Care Teams Stitch Cleaner Relationship Specialty Start Date End Date Venu Morales MD [address] [place] [address], [phone] PCP - General Family Medicine 07/25/24 documented as of this encounter
--- OUTSIDE RECORDS SUMMARY | 2025-06-13 10:28 | XMS_ITS | Data Portability ---
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 [email or web address] Not available 08/30/2024 15:09:03 Plan of Treatment Reminders Order Date Submit [...] and Address Organization Details Recorded Time Asthenia 41517538 Active 2024 Miroslava Pleitez NP [address], [address], [place], [address], [facility] 5 13:00:10 Bilateral foot drop 8086367877706 9103 Active 2024 Miroslava Pleitez NP [address], [address], [place], [address], [facility] 5 13:00:22 Constipatio n 19058490 Active 2024 Miroslava Pleitez NP [address], [address], [place], [address], [facility] 5 13:00:30 Gastroesoph ageal reflux disease 182298721 Active 2024 Miroslava Pleitez NP [address], [address], [place], [address], [facility] 5 13:02:18 Diabetes mellitus 52199068 Active 2024 Miroslava Pleitez NP [address], [address], [place], [address], [facility] 5 13:02:39 Polycystic ovary syndrome 092736954 Active 2024 Miroslava Pleitez NP [address], [address], [place], [address], [facility] 5 13:02:57 Post-trauma tic stress disorder 70027809 Active 2024 Miroslava Pleitez NP [address], [address], [place], [address], [facility] 5 13:03:07 Fibromyalgi a 402292912 Active 2024 Miroslava Pleitez NP [address], [address], [place], [address], [facility] 5 13:03:16 Hypothyroid ism 42522366 Active 2024 Miroslava Pleitez NP [address], [address], [place], [address], [facility] 5 13:03:31 Fall Active 2024 Miroslava Pleitez NP [address], [address], [place], [address], [facility] 5 13:04:06 Migraine 97945885 Active 2024 Miroslava Pleitez NP [address], [address], [place], [address], [facility] 5 13:24:05 Hypertensiv e disorder 21820217 Active 2024 Miroslava Pleitez NP [address], [address], [place], [address], [facility] 5 13:29:51 Hyperlipide ion 68634277 Active 2024 Miroslava Pleitez NP [address], [address], [place], [address], [facility] 5 13:31:54 Vitamin D deficiency 29423555 Active 2024 Inez Acevedo MD [address], [address], [place], [address], [facility] 5 15:06:46 Problem Notes None recorded. Medical Equipment None Reported. Allergies Allergen ID Allergen Name Allergen Category Reaction Reaction Severity Criticality Documentation Date Start Date Code Code System Note Provider Name and Address Organization Details Recorded Time 78085 metronida zole medicatio n Not available Not available high 07/31/20242023 6922 RxNabeel Acevedo MD [address] [place] [address], [address], [place], [address], [facility] 5 12:56:40 65264 aripipraz ole medicatio n itching mild low 07/31/20242023 64815 RxNabeel Acevedo MD [address], [address], [place], [address], [facility] 5 12:55:50 55568 bacitraci n medicatio n Not available Not available high 07/31/20242023 1291 RxNabeel Acevedo MD [address] [place] [address], [address], [place], [address], [facility] 5 12:56:08 16365 iopromide medicatio n Not available Not available low 07/31/20242023 42521 RxNabeel Acevedo MD [address] [place] [address], [address], [place], [address], [facility] 5 12:56:22 20375 loperamid e medicatio n Not available Not available Not available 07/31/2024 6468 Kelin Acevedo MD [address] [place] [address], [address], [place], [address], [facility] 5 12:56:34 87444 neomycin medicatio n Not available Not available Not available 07/31/20242014 7299 RxNorm Other react ion(s ): burni ng Inez Acevedo MD [address], [address], [place], [address], [facility] 5 12:56:46 55687 polymyxin B medicatio n Not available Not available Not available 07/31/2024 8536 RxNorm Inez Acevedo MD [address], [address], [place], [address], [facility] 5 12:56:56 36481 risperido ne medicatio n Not available Not available [facility] 07/31/20242023 52878 RxNorm Inez Acevedo MD [address], [address], [place], [address], [facility] 5 12:57:16 Vitals Date Recorded Body height Heart rate Respiratory rate Body temperature Oxygen saturation Systolic And Diastolic Provider Name and Address Organization Details Last Updated DateTime 5 162.56 cm 85 /min 18 /min 98.2 [degF] 95 % 98/64 mm[Hg] Miroslava Pleitez NP [address], [facility] [address], [place], [address], [facility] 5 19:34:15 Date Recorded Body height Body weight Heart rate Respiratory rate Body temperature Oxygen saturation Systolic And Diastolic Provider Name and Address Organization Details Last Updated DateTime 5 162.56 cm 794503. 05 g 75 /min 18 /min 98.3 [degF] 95 % 118/84 mm[Hg] Miroslava Pleitez NP [address], [address], [place], [address], [facility] 5 15:29:52 Date Recorded Body height Body weight Heart rate Respiratory rate Oxygen saturation Systolic And Diastolic Provider Name and Address Organization Details Last Updated DateTime 5 162.56 cm 212594. 05 g 82 /min 20 /min 98 % 122/80 mm[Hg] Miroslava Pleitez NP [address], [address], [place], [address], [facility] 5 15:39:46 Date Recorded Body height Heart rate Respiratory rate Body temperature Oxygen saturation Systolic And Diastolic Provider Name and Address Organization Details Last Updated DateTime 5 162.56 cm 80 /min 18 /min 97.3 [degF] 97 % 141/73 mm[Hg] ALLISON GARCIA NP [address], [address], [place], [address], [facility] 5 13:17:19 Date Recorded Body height Heart rate Respiratory rate Body temperature Oxygen saturation Systolic And Diastolic Provider Name and Address Organization Details Last Updated DateTime 5 162.56 cm 80 /min 18 /min 98.1 [degF] 98 % 126/78 mm[Hg] ALLISON GARCIA NP [address], [address], [place], [address], [facility] 5 14:37:46 Social History Question Answer Notes LastModified by Organizat ion Details LastModified Time Tobacco Smoking Status Never Smoker Miroslava Pleitez NP [address], [address], [place], [address], [facility] 07/26/2024 12:22:35 Do You Have An Advance Directive? Yes Information not available 07/31/2024 What Is Your Code Status? Full Code No Cpap Information not available 07/26/2024 Where Do You Live? Apartment 2 Levels, With Stairs To Her Bedroom Information not available 07/31/2024 Legal Guardian? 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 Yes Information not available 07/31/2024 What Was The Date Of Your Most Recent Tobacco Screening? 07/26/2024 Information not available 07/26/2024 Do You Have An Out Of Hospital DNR? No Information not available 07/26/2024 What Is Your Relationship Status? Ex- Helps A Lot Information not available 07/31/2024 Has Tobacco Cessation Counseling Been Provided? No N/a As Pt Is A Non-smoker Information not available 07/31/2024 Do You Have Any Dietary Restrictions? No Information not available 07/26/2024 Sex: Female Functional Status Question Answer Note LastModified by Organizat ion Details LastModified Time Do you use any illicit or recreational drugs? No Information not available 07/26/2024 Do you or have you ever used any other forms of tobacco or nicotine? No Information not available 07/26/2024 What is your level of alcohol consumption? None Information not available 07/26/2024 Mental Status Question Answer Note LastModified by Organization D etails LastModified Time Do you feel stressed (tense, restless, nervous, or anxious, or unable to sleep at night)? [id number] Information not available 07/26/2024 Family History Nothing Reported Notes:father florecita kirk, diabetes, mother cancer, htn, thyroid disease, cervical ca, dementia sister: breast ca Medical History No medical history recorded. Gynecological HistoryNo gynecological history recorded. Obstetrics History GPAL:G 0 P 0 0 0 0 Immunizations Vaccine Type Date Status Note Provider Nam e and Address Organization Details Recorded Time Hep B, unspecified formulation 8 completed Sarah Snow [facility] 07/25/2024 14:42:01 Hep B, unspecified formulation 8 completed Sarah Snow [facility] 07/25/2024 14:42:12 Hep B, unspecified formulation 8 alfonso Snow [facility] 07/25/2024 14:42:22 DTaP, unspecified formulation 8 completed Sarah Snow [facility] 07/25/2024 14:42:53 DTaP, unspecified formulation 8 completed Sarah Snow [facility] 07/25/2024 14:43:13 DTaP, unspecified formulation 9 completed Sarah Snow [facility] 07/25/2024 14:43:25 DTaP, unspecified formulation 2 completed Sarah Snow [facility] 07/25/2024 14:43:38 DTaP, unspecified formulation 4 completed Sarah Dey null, [facility] 07/25/2024 14:43:47 Tdap 9 completed Sarah Edy null, [facility] 07/25/2024 14:44:06 Tdap 8 completed Sarah Edy null, [facility] 07/25/2024 14:44:15 Td(adult) unspecified formulation 5 completed Sarah Edy null, [facility] 07/25/2024 14:44:32 Td(adult) unspecified formulation [facility] 14:44:53 Pneumococcal conjugate PCV 13 3 completed Sarah Edy [facility] 07/25/2024 14:45:08 influenza, unspecified formulation 3 completed Sarah Edy [facility] 07/25/2024 14:45:27 MMR 9 completed Sarah Edy null, [facility] 07/25/2024 14:45:52 MMR 2 completed Sarah Edy null, [facility] 07/25/2024 14:46:00 Hep A, unspecified formulation 8 completed Sarah Edy null, [facility] 07/25/2024 14:46:26 Hep A, unspecified formulation 8 completed Sarah Edy null, [facility] 07/25/2024 14:46:34 SARS-COV-2 (COVID-19) vaccine, UNSPECIFIED 1 completed Sarah Edy null, [facility] 07/25/2024 14:54:26 SARS-COV-2 (COVID-19) vaccine, UNSPECIFIED 1 completed Sarah Edy null, [facility] 07/25/2024 14:54:32 Past Encounters Encounter ID Performer Location Encounter Start Date Encounter Closed Date Diagnosis/Indication Diagnosis SNOMED-CT Code Diagnosis ICD10 Code Diagnosis IMO Codes Diagnosis Note [id number] Miroslava Pleitez NP [facility] [address] [facility] [place] [address] 07/26/2024 11:26:00 07/28/2024 13:07:45 Bilateral foot drop 6985237217 8193933 M21.371 bilateral foot drop likely since 2021 with hx of lower leg weakness and fallshad neurology workup without definitive diagnosisn eurology rec:2 rec fu with outpt neurologis t and see if emg study done, rec 2-3 weeksmonit or Asthenia 39996512 R53.1 weakness with foot drop and lower [...] and treatsuppo rtive caremonito r Diabetes mellitus 756273 09 E11.9 ozempic 0.5 mg sc q weekmetfor min 500 mg ER po 1000 mg po bidmonitor Gastroesop hageal reflux disease 745676317 K21.00 omeprazole 20 mg po qdmonitor Fibromyalgia 602635317 M 79.7 gabapentin 300 mg po qhsibuprof en 600 mg po q 8 hours prnmonitor Post-traum atic stress disorder 68789067 F43.10 bupropion 150 mg po er q amtrazodon e 50 mg po qhsmonitor Polycystic ovary syndrome 336409962 E28.2 hx ofmonitor Hypothyroidism 31183066 E03.9 levothyrox ine 88 mcg po qdtsh level with labsmonito r prn Constipation 76800476 K5 9.00 Has hx of IBS with constipati on and one episode of vomitingnu rsing gave house bowel protocol without results2 give bisacodyl 5 mg po and supp today with zofrandocu sate 200 mg po qhsif no results from bisacodyl supp and po will give mag citrate 1/2 bottlemoni torcbc and bmp weekly x 3 Migraine 46421913 G43.90 9 emgality 120mg sc q monthribof tonya 200 mg po bidmonitor Hypertensive disorder 38 725784 I10 chlorthali done 25mg po qdlisinopr il 10 mg po qdmonitor Hyperlipidemia 75598052 E78.5 hx ofatorvast atin 40 mg po qhsmonitor [id number] Miroslava Pleitez NP [address] [address] 07/28/2024 11:50:49 08/01/2024 13:41:27 Constipation 34272980 K59.00 Has hx of IBS with constipati on and one episode of vomitingnu rsing [facility] bowel protocol without results nausea and vomiting resolved, with recent bm'sKUB noted for stool, has had bm since07/28 contdocusa te 200 mg po qhsmonitor cbc and bmp weekly x 3 [id number] Inez Acevedo MD [address] [address] 07/31/2024 12:36:47 08/01/2024 13:52:27 Bilateral foot drop 9373422721 8411061 M21.371 Apparently currently having trouble using AFO due to weakness.P T/OT as above. Asthenia 13212518 R53.1 Long hx.Had EMG and nerve conduction [...] finding one level living situation. Diabetes mellitus 489669 09 E11.9 Sugars all low while inpt.Fasti ngs on bloodwork <100, no fingerstic ks done.Pavan nue ozempic 0.5 mg sc weekly and metformin 1000 mg BID.No HgA1C seen in system since 2020 (6.6)Monit or fingerstic ks prn and will get HgA1C with next labs. Gastroesop hageal reflux disease 700660624 K21.00 With issues with nausea, unclear if related to GERD.Pt doesn't want to increase omeprazole from 20 mg qd to 20 mg BID, says Zofran works fine.Pavan nucharlette Zofran 4 mg q 6 hrs prn.Monito r sxs. Fibromyalgia 521402110 M 79.7 Continue gabapentin 300 mg qhs, APAP 650 mg q 6 hrs prn, and ibuprofen 600 mg q 8 hrs prnPT/OT as above.Maria Del Carmen tor sxs. Post-traum atic stress disorder 96616000 F43.12 Mood down.Pavan kourtney bupropion 150 mg qd and trazodone 50 mg qhsMonitor mood.Psych consult. Polycystic ovary syndrome 230362687 E28.2 In hx.On metformin as above.Maria Del Carmen tor as outpt. Hypothyroidism 32708669 E03.8 Last TSH 3.16 in 12/2023.Con tinue levothyrox ine 88 mcg qdMonitor TSH as outpt. Migraine 14565627 G43.80 9 No recent HAs.Contin ue emgality 120mg sq monthly and riboflavin 200 mg BID.Monito r for sxs. Hypertensive disorder 38 824369 I10 BP in good control.Co ntinue chlorthali done 25 mg qd and lisinopril 10 mg qdMonitor BP and labs. Hyperlipidemia 80342928 E78.49 Continue atorvastat in 40 mg qhsMonitor labs as outpt. Constipation 45987123 K5 8.2 With good results on 07/27 from bowel protocol.C ould be contributi ng to nausea.Davie l start miralax 17 gms qd and continue other bowel meds as ordered.Mo nitor bowel function. Vitamin D deficiency 347 29532 E56.8 Continue cholecalci ferol 2000 IU qd.Monitor as outpt. [id number] ALLISON GARCIA NP [address] [address] 08/02/2024 09:19:30 08/03/2024 13:27:06 Asthenia 62181358 R53.1 Long hx.Had EMG and nerve conduction [...] help with finding one level living situation. Bilateral foot drop 1563 809598 6785114 M21.371 Apparently currently having trouble using AFO due to weakness.P T/OT as above. Diabetes mellitus 824951 09 E11.9 Sugars all low while inpt.Fasti ngs on bloodwork <100, no fingerstic ks done.Curre ntly on ozempic 0.5 mg sc weekly and metformin 1000 mg BID. Plan -Stop metformin due to GI upset, see aboveCheck A1C x1 - unsure if done today, will reorder if not doneBS BID, no SSI, just monitor for now. Gastroesop hageal reflux disease 643789825 K21.00 With issues with nausea, unclear if related to GERD.See above, stopping metformin. Continue Zofran 4 mg q 6 hrs prn.Monito r sxs. Constipation 66327581 K5 8.2 With good results on 07/27 from bowel protocol.C ould be contributi ng to nausea.Sta rted miralax 17 gms qd and continue other bowel meds as ordered.Mo nitor bowel function. Fibromyalgia 718360535 M 79.7 Continue gabapentin 300 mg qhs, APAP 650 mg q 6 hrs prn, and ibuprofen 600 mg q 8 hrs prnPT/OT as above.Maria Del Carmen tor sxs. Post-traum atic stress disorder 16638415 F43.12 Mood down.Pavan nue bupropion 150 mg qd and trazodone 50 mg qhsMonitor mood.Psych consult. Polycystic ovary syndrome 545698457 E28.2 In hx.On metformin as above.Maria Del Carmen tor as outpt. Hypothyroidism 07932880 E03.8 Last TSH 3.16 in 12/2023.Con tinue levothyrox ine 88 mcg qdMonitor TSH as outpt. Migraine 91126544 G43.80 9 No recent HAs.Contin ue emgality 120mg sq monthly and riboflavin 200 mg BID.Monito r for sxs. Hypertensive disorder 38 077997 I10 BP in good control.Co ntinue chlorthali done 25 mg qd and lisinopril 10 mg qdMonitor BP and labs. Hyperlipidemia 79720045 E78.49 Continue atorvastat in 40 mg qhsMonitor labs as outpt. Vitamin D deficiency 347 44284 E56.8 Continue cholecalci ferol 2000 IU qd.Monitor as outpt. Acute rete ntion of urine 081141823 R33.8 Unable to void last night, ER eval confirms retention. UA negPlan -Assist with toiletingP VR/straigh t cath q shift if no void or s/s retention. Nausea and vomiting 1692 1999 R11.2 Pt. thinks it is related to metformin - will stop as BS reportedly running low while inpt.Bri ax added to help with constipati on.Monitor Continue PPI [id number] Miroslava Pleitez NP [facility] [address] [address] 08/10/2024 14:48:41 08/14/2024 17:09:17 Acute retention of urine 136311348 R33.8 hx of retentionU A negAssist with toiletingP VR/straigh t cath q shift if no void or s/s retention. Nausea and vomiting 1692 1999 R11.2 bs 89-185 latelyreso lvingmetfo rmin - will stop as BS reportedly running low while inpt.contM iralaxMoni torContinu e PPI Diabetes mellitus 764307 09 E11.9 Sugars all low while inpt. BS 86-185 here stableFast ings on bloodwork <100contoz empic 0.5 mg sc weeklymetf ormin 1000 mg BID on holdBS BID, no SSI, just monitor for now. Asthenia 47418008 R53.1 Long hx. ofHad EMG and nerve conduction studies in 02/2022 with no abnormal findings.M RI of LS spine in 02/2024 as noted in HPI.Also had MRI of head which was non-acute. Per neuro would not be a reason for sxs.He suspects somatizati on.Needs PT/OT for strengthen ing, balance, gait training, safety and function.A mbulation impaired by foot drop bilateralC ontinue fall precaution s.Monitor for safety.F/U with neuro as planned. Fall R29.6 As above.supp ortive carept ot eval and treatwalke rNeeds help with finding one level living situation. Bilateral foot drop 1563 958901 4473904 M21.371 AFOencoura ge use and monitoring of due to weakness.P T/OT as above. Gastroesop hageal reflux disease 852449870 K21.00 See above, stopping metformin. ContinueZo heena 4 mg q 6 hrs prn.Monito r sxs. Constipation 32397245 K5 8.2 seems resolvingC ould be contributi ng to nausea.con tmiralax 17 gms qd and continue other bowel meds as ordered.Mo nitor bowel function. Fibromyalgia 425319276 M 79.7 Continuega bapentin 300 mg qhs, APAP 650 mg q 6 hrs prn, and ibuprofen 600 mg q 8 hrs prnPT/OT as above.Maria Del Carmen tor sxs. Post-traum atic stress disorder 37793722 F43.12 Mood good todayConti nuebupropi on 150 mg qdtrazodon e 50 mg qhsMonitor mood.Psych consult. Polycystic ovary syndrome 225998821 E28.2 In hx.On metformin as above. currrently on hold for gi upsetMonit or as outpt. [id number] Miroslava Pleitez NP [address] [address] 08/16/2024 14:25:55 08/17/2024 12:51:42 Asthenia 21700300 R53.1 Long hx. ofHad EMG and nerve conduction studies in 02/2022 with no abnormal findings.M RI of LS spine in 02/2024 as noted in HPI.Also had MRI of head which was non-acute. Per neuro would not be a reason for sxs.He suspects somatizati on.Needs PT/OT for strengthen ing, balance, gait training, safety and function.A mbulation impaired by foot drop bilateralC ontinue fall precaution s.Monitor for safety.F/U with neuro as planned. Acute rete ntion of urine 917077307 R33.8 hx of retentionA ssist with toiletingP VR/straigh t cath q shift if no void or s/s retention. Fall R29.6 see hpisupport clary carept ot eval and treatcourtney rNeeds help with finding one level living situation. Bilateral foot drop 1563 737480 7043896 M21.371 AFOencoura ge use and monitoring of due to weakness.P T/OT as above. Constipation 30401626 K5 8.2 seems resolvingC ould be contributi ng to nausea.con tmiralax 17 gms qd and continue other bowel meds as ordered.Mo nitor bowel function. Fibromyalgia M 79.7 Continuega bapentin 300 mg qhs, APAP 650 mg q 6 hrs prn, and ibuprofen 600 mg q 8 hrs prnPT/OT as above.Maria Del Carmen tor sxs. Post-traum atic stress disorder 26351788 F43.12 Mood good todayConti nuebupropi on 150 mg qdtrazodon e 50 mg qhsMonitor mood.Psych consult. Polycystic ovary syndrome 435284260 E28.2 In hx.On metformin as above. currrently on hold for gi upsetMonit or as outpt. Urinary tr act infectious disease 02056959 N39.0 + uti on urinalysis startbactr im 1 ds po bid x 7daysprobi otic 1 tab po bid x 10 daysmonito r Hypokalemia 15647555 E87 .6 08/16encour age potassium in dietstartp otassium 40 meq tid x 4 dosesreche ck bmp on 08/18 Diabetes mellitus 798470 09 E11.9 Sugars all low while inpt. BS stable off metforminF astings on bloodwork <100contoz empic 0.5 mg sc weeklymetf ormin 1000 mg BID on holdBS BID, no SSI, just monitor for now. [id number] Miroslava Pleitez NP [address] [address] 08/18/2024 15:39:10 08/22/2024 12:47:57 Urinary tract infectious disease 12892323 N39.0 + uti on urinalysis susceptibl e to bactrim on culturecon tbactrim 1 ds po bid x 7daysprobi otic 1 tab po bid x 10 daysmonito r Asthenia 21357045 R53.1 Long hx. ofHad EMG and nerve conduction studies in 02/2022 with no abnormal findings.M RI of LS spine in 02/2024 as noted in HPI.Also had MRI of head which was non-acute. Per neuro would not be a reason for sxs.He suspects somatizati on.Needs PT/OT for strengthen ing, balance, gait training, safety and function.A mbulation impaired by foot drop bilateralC ontinue fall precaution s.Monitor for safety.F/U with neuro as planned. Hypokalemia 75649924 E87 .6 08/17 k was 4.0encoura ge potassium in dietresolv ed wtih 4 doses of potassiumr echeck bmp next week Bilateral foot drop 1563 968367 0403086 M21.371 AFOencoura ge use and monitoring of due to weakness.P T/OT as above. Fibromyalgia 676159938 M 79.7 Continue refuses gabapentin 300 mg qhs- educated and will dccontAPAP 650 mg q 6 hrs prnibuprof en 600 mg q 6 hrs prnPT/OT as above.Maria Del Carmen tor sxs. [id number] ALLISON GARCIA NP [address] [address] 08/23/2024 12:13:17 08/24/2024 16:16:02 Fibromyalgia 479026307 M79.7 Continue refuses gabapentin 300 mg qhs- educated and will dccontAPAP 650 mg q 6 hrs prnibuprof en 600 mg q 6 hrs prnPT/OT as above.Maria Del Carmen tor sxs. Asthenia 14512790 R53.1 Long hx. ofHad EMG and nerve conduction studies in 02/2022 with no abnormal findings.M RI of LS spine in 02/2024 as noted in HPI.Also had MRI of head which was non-acute. Per neuro would not be a reason for sxs.He suspects somatizati on.Needs PT/OT for strengthen ing, balance, gait training, safety and function.A mbulation impaired by foot drop bilateralC ontinue fall precaution s.Monitor for safety.F/U with neuro as planned. Hypokalemia 26534009 E87 .6 08/17 k was 4.0, now 4.9Not on KCL at presentIs on CLAUDIA IMonitor - BMP 08/30 Urinary tr act infectious disease 78749393 N39.0 + uti on urinalysis susceptibl e to bactrim on culturecom pleting bactrim 1 ds po bid x 7daysfinis h probiotic 1 tab po bid x 10 daysmonito r Bilateral foot drop 1563 379518 2606610 M21.371 AFOencoura ge use and monitoring of due to weakness.P T/OT as above. Nausea 442436192 R11.0 and GI upset todySuspec t related to Bactrim use.Finish ing bactrim today.Maria Del Carmen torClear liquids today to rest bowelDecli josé zofran when offered Hemorrhoids 11003970 K64 .9 Rectal pain over the weekendSee n in ER, no new ordersPlan -Continue preparatio n H cream - sched. TID x 1 week, then tid prn. Pt. may self administer .TUCKS which jay jay wipes qid prn - may use own supply. [id number] ALLISON GARCIA NP [address] [address] 08/30/2024 14:36:59 08/31/2024 14:24:17 Nausea [id number] R11.0 Suspect related to Bactrim use, resolved Hemorrhoids [id number] K64 .9 Rectal pain last weekendMuc h improved with preparatio n H cream and TUCKS.Maria Del Carmen tor as outpt. Urinary tr act infectious disease [id number] N39.0 completed bactrim 1 ds po bid x 7dayssx. resolved Hypokalemia [id number] E87 .6 K as low as 3 on 08/16Respon ded well to supplement sCurrently not on KCLK level today 3.3As pt. on thiazide diuretic, will add KCl 10 meq po dailyMonit or BMP as outpt. Fibromyalgia [id number] M 79.7 ContinueAP AP 650 mg q 6 hrs prnibuprof en 600 mg q 6 hrs prnPT/OT as above.Maria Del Carmen tor sxs. Asthenia [id number] R53.1 Long hx. ofHad EMG and nerve conduction studies in 02/2022 with no abnormal findings.M RI of LS spine in 02/2024 as noted in HPI.Also had MRI of head which was non-acute. Per neuro would not be a reason for sxs.He suspects somatizati on.Needs PT/OT for strengthen ing, balance, gait training, safety and function.A mbulation impaired by foot drop bilateralC ontinue fall precaution s.Monitor for safety.F/U with neuro as planned. Bilateral foot drop [id number] M21.371 AFOencoura ge use and monitoring of due to weakness.P T/OT as above. Fall R29.6 As above.She tells me she does the stairs with a quad cane and by pulling herself up with the railing.Ne eds help with finding one level living situation. Diabetes mellitus 397260 09 E11.9 Sugars all low while inpt.PT. refusing glucophage - med stopped.Cu rrently on ozempic 0.5 mg sc weeklyBS currently well controlled , +/- 100Monitor as outpt. Gastroesop hageal reflux disease [id number] K21.00 Continue omeprazole from 20 mg qdMonitor sxs. Constipation 67841629 K5 8.2 Continue daily miralax and colace Post-traum atic stress disorder 83894867 F43.12 Continue bupropion 150 mg qd and trazodone 50 mg qhsMonitor mood. Polycystic ovary syndrome [id number] E28.2 In hx.Refusin g to take metformin at this time.Monit or as outpt. Hypothyroidism 68128027 E03.8 Last TSH 3.16 in 12/2023.Con tinue levothyrox ine 88 mcg qdMonitor TSH as outpt. Migraine 18716619 G43.80 9 No recent HAs.Contin ue emgality 120mg sq monthly and riboflavin 200 mg BID.Monito r for sxs. Hypertensive disorder 38 264052 I10 BP in good control.Co ntinue chlorthali done 25 mg qd and lisinopril 10 mg qdMonitor BP and labs. Hyperlipidemia 02038544 E78.49 Continue atorvastat in 40 mg qhsMonitor labs as outpt. Vitamin D deficiency 347 25062 E56.8 Continue cholecalci ferol 2000 IU qd.Monitor as outpt. Health Concerns Section Related Observation LastModified by Organization Detai ls LastModified Time None Recorded Concern Status LastModified by Organization Details LastModified Time None Recorded Advance Directives Directive Y: Payers Insurance Date Sequence Insurance Name Policy Number Policy Nuñez Covered Member ID Nuñez Member ID Guarantor Name 08/31/2024 1 [facility] - DOS ON OR AFTER 2022 - MEDICARE [place]VANTAGE [place] (MEDICARE REPLACEMENT/ADV ANTAGE - PPO) Georgia Muñoz [id number] Georgia Muñoz Notes Date Note Type Note Provider Name and Address Organization Details Recorded Time 08/10/2024 text/html Pt is seen today for an acute visit. Her PMH includes HTN, AODM, IBS, right foot drop, GERD, PCOS, PTSD, migraines, hypothyroidism, fibromyalgia, IBS, and morbid obesity. Pt is a 44 yo woman here for rehab after an ED visit for knee pain and leg weakness, with falls. On exam, she is seen in good spirits in NAD. She reports eating, drinking, and moving bowels regularly. Labs reviewed and stable She is doing well and working with rehab making gains. Per therapy Pt completing STS from w/c to RW with Min A. Pt ambulating to/from bathroom using RW with CGA requiring cueing for upright posture and totalelbow extension with poor carryover. of note:At baseline she has right foot drop from a prior injury. LS spine MRI in 02/2024 which showed Multilevel lumbar spondylosis more conspicuous at L3-4 and L4-5 likely encroaching the exiting nerve roots. Neuro notes in [facility] system only address issues with migraines, no discussion of BLE weakness. She stated she has not walked since 2021 correctly. She stated two months ago she could slide her feet with rollator which she cannot do now. Her SHIPYARD HELPER is sick and has not been able to help. W/U in ED showed neg xrays of knees, non-acute labs.Neuro consult felt exam and prior w/u most consistent with somatic disorder.STR was recommended and she wastransferred here on 07/24. Miroslava Pleitez NP [address], [address], [place], [address], [facility] 08/11/2024 19:47:28 08/16/2024 text/html Pt is seen today for an acute visit. Her PMH includes HTN, AODM, IBS, right foot drop, GERD, PCOS, PTSD, migraines, hypothyroidism, fibromyalgia, IBS, and morbid obesity. Pt is a 44 yo woman here for rehab after an ED visit for knee pain and leg weakness, with falls. She had a witnessed fall without injuries at 0522 this am. She states it was mechanical. On exam, Georgia is playing [employer] smiling. She reports eating, drinking, and moving bowels regularly. States intermittent urinary pain. Labs reviewed and potassium 3.0 today. She will start on supplements. Her urinalysis shows a uti susceptible to bactrim which will start bactrim today. She continues working with rehab making gains. of note:At baseline she has right foot drop from a prior injury. LS spine MRI in 02/2024 which showed Multilevel lumbar spondylosis more conspicuous at L3-4 and L4-5 likely encroaching the exiting nerve roots. Neuro notes in [facility] system only address issues with migraines, no discussion of BLE weakness. She stated she has not walked since 2021 correctly. She stated two months ago she could slide her feet with rollator which she cannot do now. Her SHIPYARD HELPER is sick and has not been able to help. W/U in ED showed neg xrays of knees, non-acute labs.Neuro consult felt exam and prior w/u most consistent with somatic disorder.STR was recommended and she wastransferred here on 07/24. Miroslava Pleitez, JAXSON [address], [address], [place], [address], [facility] 08/16/2024 15:52:06 08/18/2024 text/html Pt is seen today for an acute visit. Her PMH includes HTN, AODM, IBS, right foot drop, GERD, PCOS, PTSD, migraines, hypothyroidism, fibromyalgia, IBS, and morbid obesity. Pt is a 44 yo woman here for rehab after an ED visit for knee pain and leg weakness, with falls seen today for refusal of gabapentin and pain. On exam, Georgia is seen after activities today in [facility]. She reports she is having cramping pain and requests motrin. She is already receiving gabapentin, however refuses this med. She is educated on medication and potential pain relief however still refuses. She already has motrin prn ordered and nursing aware she can get a dose. potassium 4.0 on 08/17. improved. will monitor She continues working with rehab making gains. of note:At baseline she has right foot drop from a prior injury. LS spine MRI in 02/2024 which showed Multilevel lumbar spondylosis more conspicuous at L3-4 and L4-5 likely encroaching the exiting nerve roots. Neuro notes in [facility] system only address issues with migraines, no discussion of BLE weakness. She stated she has not walked since 2021 correctly. She stated two months ago she could slide her feet with rollator which she cannot do now. Her SHIPYARD HELPER is sick and has not been able to help. W/U in ED showed neg xrays of knees, non-acute labs.Neuro consult felt exam and prior w/u most consistent with somatic disorder.STR was recommended and she wastransferred here on 07/24. Miroslava Pleitez, JAXSON [address], [address], [place], [address], [facility] 08/18/2024 15:47:50 08/23/2024 text/html Pt is seen today for an acute visit. Pt is a 44 yo woman here for rehab after an ED visit for knee pain and leg weakness, with falls. Over the weekend she was having issues with rectal pain, thought due to hemorrhoids. Creams used here making pain worse, so asked to go to the ER. Per pt., in the ER, they wiped the creams off, but did not do anything else and sent her back. She reports at home she uses some round pads, shows me the container her brought in from home - out of date which jay jay pads. She says her rectum is still uncomfortable. No problems moving her bowels. She is open to also trying preparation H cream as well, as long as she can self administer using her finger and not an applicator. She is also complaining of nausea and GI upset this am, unable to eat lunch due to GI upset. Unsure as to why, but is completing a round of Bactrim, last doses today. On exam, Georgia is up in her w/c, self propelling in the halls. Alert, NAD, but does feel nauseous, did not want to eat lunch. No other complaints except for hemorrhoidal pain.VSSLabs today stable.She continues working with rehab making gains. Her PMH includes HTN, AODM, IBS, right foot drop, GERD, PCOS, PTSD, migraines, hypothyroidism, fibromyalgia, IBS, and morbid obesity. ALLISON GARCIA NP [address], [address], [place], [address], [facility] 08/23/2024 14:03:34 08/30/2024 text/html Georgia is seen today for discharge.She will be returning home 08/31 with support of family and services. She is a 44 yo woman admitted to [facility] for continued care and rehab after an ED visit for knee pain and leg weakness, with falls. Since admission, she has been working with rehab, making improvements and meeting goals to return home. VSSBS well controlled, +/- 100.Labs today stable except K 3.3. Stay complicated by UTI - treated with Bactrim. C/O nausea towards the end of tx., now resolved. She also had rectal pain due to hemorrhoids, responded well to topical tx.Glucophage and gabapentin stopped per pt. request. On exam, Georgia is up in her w/c, self propelling in the halls. Alert, NAD, feels good, no complaints. Happy to be going home tomorrow, feels she is ready. Her PMH includes HTN, AODM, IBS, right foot drop, GERD, PCOS, PTSD, migraines, hypothyroidism, fibromyalgia, IBS, and morbid obesity. ALLISON GARCIA NP [address], [address], [place], [address], [place] 08/30/2024 15:09:18 OBGyn Episode No OBEpisode recorded.
--- OUTSIDE RECORDS SUMMARY | 2025-06-13 10:28 | XMS_ITS | Encounter Summary ---
Demographics Address [address] [place] [address] Home Phone Work Phone Mobile Phone Home Phone Home Phone Mobile Phone Preferred Language en Marital Status Unknown Advent Affiliation Unknown Race Unknown Ethnic Group Unknown Author Organization [facility] Address [address] [place] [address] Care Team Providers Care Clin Tech Name Role Phone Venu Morales MD Primary Care Provider [phone] Encounter Details Date Type Department Care Team (Late st Contact Info) Description 08/08/2024 Lab Requisition [facility] - Main Lab [address] [place] [address] Venu Morales MD [address] [place] [address] [address] [place], [phone] Chronic kidney disease, unspecified Social History [...] Associated Diagnosis Comments COMPLETE BLOOD COUNT Routine 08/09/2024 7:13 AM EST Chronic kidney disease, unspecified BASIC METABOLIC PANEL Routine 08/09/2024 7:13 AM EST Chronic kidney disease, unspecified documented in this encounter Results * (ABNORMAL) Basic metabolic panel (08/09/2024 7:13 AM EST) Sodium 137 133 - 145 mmol/L LAB CHEMISTRY METHOD 08/09/2024 12:20 PM EST [facility] Potassium 3.4(L) 3.5 - 5.5 mmol/L LAB CHEMISTRY METHOD 08/09/2024 12:20 PM [facility] Chloride 100 96 - 110 mmol/L LAB CHEMISTRY METHOD 08/09/2024 12:20 PM [facility] CO2 28 21 - 32 mmol/L LAB CHEMISTRY METHOD 08/09/2024 12:20 PM [facility] Anion Gap 9 3 - 11 LAB CHEMISTRY METHOD 08/09/2024 12:20 PM [facility] Glucose 73 70 - 100 mg/dL LAB CHEMISTRY METHOD 08/09/2024 12:20 PM [facility] BUN 15 5 - 25 mg/dL LAB CHEMISTRY METHOD 08/09/2024 12:20 PM [facility] Creatinine 0.41(L) 0.50 - 1.10 mg/dL LAB CHEMISTRY METHOD 08/09/2024 12:20 PM [facility] eGFR 123 >=60 mL/min/1. 73m2 LAB CHEMISTRY METHOD 08/09/2024 12:20 PM [facility] Comment:Calculation based on the Chronic Kidney Disease Epidemiology Collaboration (CKD-EPI) equation refit without adjustment for race. BUN/Creatinine Ratio 36.6 LAB CHEMISTRY METHOD 08/09/2024 12:20 PM [facility] Calcium 9.4 8.5 - 10.5 mg/dL LAB CHEMISTRY METHOD 08/09/2024 12:20 PM [facility] Blood Venous blood specimen / Unknown Venipuncture / Unknown 08/09/2024 7:13 AM EST 08/09/2024 11:32 AM EST us Venu Morales MD LAB BLOOD ORDERABLES Final Resul t [facility] [address] [place] [address], * (ABNORMAL) Complete blood count (08/09/2024 7:13 AM EST) [facility] WBC 8.8 4.8 - 10.8 K/mcL LAB HEMETOLOGY METHOD 08/09/2024 12:55 PM [facility] RBC 4.10 3.80 - 4.80 M/mcL LAB HEMETOLOGY METHOD 08/09/2024 12:55 PM [facility] Hemoglobin 11.4(L) 11.5 - 16.0 g/dL LAB HEMETOLOGY METHOD 08/09/2024 12:55 PM [facility] Hematocrit 35.1 35.0 - 47.0 % LAB HEMETOLOGY METHOD 08/09/2024 12:55 PM [facility] MCV 85.0 79.0 - 98.0 FL LAB HEMETOLOGY METHOD 08/09/2024 12:55 PM [facility] MCH 27.6 27.0 - 32.0 pcg LAB HEMETOLOGY METHOD 08/09/2024 12:55 PM [facility] MCHC 32.5 32.0 - 37.0 g/dL LAB HEMETOLOGY METHOD 08/09/2024 12:55 PM [facility] RDW 13.6 11.0 - 15.0 % LAB HEMETOLOGY METHOD 08/09/2024 12:55 PM [facility] Platelets 315 130 - 400 K/mcL LAB HEMETOLOGY METHOD 08/09/2024 12:55 PM [facility] MPV 10.3 7.0 - 11.0 FL LAB HEMETOLOGY METHOD 08/09/2024 12:55 PM [facility] NRBC 0.0 <1.0 % LAB HEMETOLOGY METHOD 08/09/2024 12:55 PM [facility] NRBC Absolute 0.00 <0.10 K/mcL LAB HEMETOLOGY METHOD 08/09/2024 12:55 PM EST [facility] Blood Venous blood specimen / Unknown Venipuncture / Unknown 08/09/2024 7:13 AM EST 08/09/2024 11:32 AM EST us Venu Morales MD LAB BLOOD ORDERABLES Final Resul t [facility] [address] [place] [address], documented in this encounter Visit Diagnoses Diagnosis Chronic kidney disease, unspecified documented in this encounter Care Teams Clin Tech Relationship Specialty Start Date End Date Venu Morales MD [address] [place] [address], [phone] PCP - General Family Medicine 07/25/24 documented as of this encounter
--- OUTSIDE RECORDS SUMMARY | 2025-06-13 10:28 | XMS_ITS | Encounter Summary ---
Demographics Address [address] [place] [address] Home Phone Work Phone Mobile Phone Home Phone Home Phone Mobile Phone Preferred Language en Marital Status Unknown Alevism Affiliation Unknown Race Unknown Ethnic Group Unknown Author Organization [facility] Address [address] [place] [address] Care Team Providers Care Manager Treasury Name Role Phone Venu Morales MD Primary Care Provider [phone] Encounter Details Date Type Department Care Team (Late st Contact Info) Description 07/25/2024 Lab Requisition [facility] - Main Lab [address] [place] [address] Venu Morales MD [address] [place] [address] [address] [place], [phone] Chronic kidney disease, unspecified Social History [...] LAB CHEMISTRY METHOD 07/26/2024 1:22 PM EST [facility] Potassium 4.6 3.5 - 5.5 mmol/L LAB CHEMISTRY METHOD 07/26/2024 1:22 PM [facility] Chloride 98 96 - 110 mmol/L LAB CHEMISTRY METHOD 07/26/2024 1:22 PM [facility] CO2 26 21 - 32 mmol/L LAB CHEMISTRY METHOD 07/26/2024 1:22 PM [facility] Anion Gap 10 3 - 11 LAB CHEMISTRY METHOD 07/26/2024 1:22 PM [facility] Glucose 73 70 - 100 mg/dL LAB CHEMISTRY METHOD 07/26/2024 1:22 PM [facility] BUN 20 5 - 25 mg/dL LAB CHEMISTRY METHOD 07/26/2024 1:22 PM [facility] Creatinine 0.55 0.50 - 1.10 mg/dL LAB CHEMISTRY METHOD 07/26/2024 1:22 PM [facility] eGFR 115 >=60 mL/min/1. 73m2 LAB CHEMISTRY METHOD 07/26/2024 1:22 PM [facility] Comment:Calculation based on the Chronic Kidney Disease Epidemiology Collaboration (CKD-EPI) equation refit without adjustment for race. BUN/Creatinine Ratio 36.4 LAB CHEMISTRY METHOD 07/26/2024 1:22 PM [facility] Calcium 9.5 8.5 - 10.5 mg/dL LAB CHEMISTRY METHOD 07/26/2024 1:22 PM [facility] Blood Venous blood specimen / Unknown Venipuncture / Unknown 07/26/2024 5:49 AM EST 07/26/2024 10:41 AM EST us Venu oMrales MD LAB BLOOD ORDERABLES Final Resul t [facility] [address] [place] [address], [place] [phone] * Complete blood count (07/26/2024 5:49 AM EST) [facility] WBC 7.8 4.8 - 10.8 K/mcL LAB HEMETOLOGY METHOD 07/26/2024 11:35 AM [facility] RBC 4.60 3.80 - 4.80 M/mcL LAB HEMETOLOGY METHOD 07/26/2024 11:35 AM [facility] Hemoglobin 12.9 11.5 - 16.0 g/dL LAB HEMETOLOGY METHOD 07/26/2024 11:35 AM [facility] Hematocrit 40.2 35.0 - 47.0 % LAB HEMETOLOGY METHOD 07/26/2024 11:35 AM [facility] MCV 87.8 79.0 - 98.0 FL LAB HEMETOLOGY METHOD 07/26/2024 11:35 AM [facility] MCH 28.2 27.0 - 32.0 pcg LAB HEMETOLOGY METHOD 07/26/2024 11:35 AM [facility] MCHC 32.1 32.0 - 37.0 g/dL LAB HEMETOLOGY METHOD 07/26/2024 11:35 AM [facility] RDW 13.9 11.0 - 15.0 % LAB HEMETOLOGY METHOD 07/26/2024 11:35 AM [facility] Platelets 349 130 - 400 K/mcL LAB HEMETOLOGY METHOD 07/26/2024 11:35 AM [facility] MPV 11.0 7.0 - 11.0 FL LAB HEMETOLOGY METHOD 07/26/2024 11:35 AM [facility] NRBC 0.0 <1.0 % LAB HEMETOLOGY METHOD 07/26/2024 11:35 AM [facility] NRBC Absolute 0.00 <0.10 K/mcL LAB HEMETOLOGY METHOD 07/26/2024 11:35 AM EST [facility] Blood Venous blood specimen / Unknown Venipuncture / Unknown 07/26/2024 5:49 AM EST 07/26/2024 10:41 AM EST us Venu Morales MD LAB BLOOD ORDERABLES Final Resul t [facility] ([facility]) [facility] [address] [place] [address], documented in this encounter Visit Diagnoses Diagnosis Chronic kidney disease, unspecified documented in this encounter Care Teams Manager Treasury Relationship Specialty Start Date End Date Venu Morales MD [address] [place] [address], [phone] PCP - General Family Medicine 07/25/24 documented as of this encounter
--- OUTSIDE RECORDS SUMMARY | 2025-06-13 10:28 | XMS_ITS | Encounter Summary ---
Demographics Address [address] [place] [address] Home Phone Work Phone Mobile Phone Home Phone Home Phone Mobile Phone Preferred Language en Marital Status Unknown Rastafarian Affiliation Unknown Race Unknown Ethnic Group Unknown Author Organization [facility] Address [address] [place] [address] Care Team Providers Care Record Press Operator Name Role Phone Venu Morales MD Primary Care Provider [phone] Encounter Details Date Type Department Care Team (Late st Contact Info) Description 08/22/2024 Lab Requisition [facility] - Main Lab [address] [place] [address] Venu Morales MD [address] [place] [address] [address] [place], [phone] Chronic kidney disease, unspecified Social History [...] Associated Diagnosis Comments COMPLETE BLOOD COUNT Routine 08/23/2024 6:30 AM EST Chronic kidney disease, unspecified BASIC METABOLIC PANEL Routine 08/23/2024 6:30 AM EST Chronic kidney disease, unspecified documented in this encounter Results * (ABNORMAL) Basic metabolic panel (08/23/2024 6:30 AM EST) Sodium 133 133 - 145 mmol/L LAB CHEMISTRY METHOD 08/23/2024 12:46 PM EST [facility] Potassium 4.9 3.5 - 5.5 mmol/L LAB CHEMISTRY METHOD 08/23/2024 12:46 PM [facility] LAB Comment:Hemolysis present Chloride 101 96 - 110 mmol/L LAB CHEMISTRY METHOD 08/23/2024 12:46 PM [facility] CO2 21 21 - 32 mmol/L LAB CHEMISTRY METHOD 08/23/2024 12:46 PM [facility] Anion Gap 11 3 - 11 LAB CHEMISTRY METHOD 08/23/2024 12:46 PM [facility] Glucose 63(L) 70 - 100 mg/dL LAB CHEMISTRY METHOD 08/23/2024 12:46 PM [facility] BUN 15 5 - 25 mg/dL LAB CHEMISTRY METHOD 08/23/2024 12:46 PM [facility] Creatinine 0.56 0.50 - 1.10 mg/dL LAB CHEMISTRY METHOD 08/23/2024 12:46 PM [facility] eGFR 114 >=60 mL/min/1. 73m2 LAB CHEMISTRY METHOD 08/23/2024 12:46 PM [facility] Comment:Calculation based on the Chronic Kidney Disease Epidemiology Collaboration (CKD-EPI) equation refit without adjustment for race. BUN/Creatinine Ratio 26.8 LAB CHEMISTRY METHOD 08/23/2024 12:46 PM [facility] Calcium 9.5 8.5 - 10.5 mg/dL LAB CHEMISTRY METHOD 08/23/2024 12:46 PM [facility] Blood Venous blood specimen / Unknown Venipuncture / Unknown 08/23/2024 6:30 AM EST 08/23/2024 10:59 AM EST us Venu Morales MD LAB BLOOD ORDERABLES Final Resul t [facility] [address] [place] [address], * Complete blood count (08/23/2024 6:30 AM EST) [facility] Signature WBC 7.7 4.8 - 10.8 K/mcL LAB HEMETOLOGY METHOD 08/23/2024 11:30 AM [facility] RBC 4.30 3.80 - 4.80 M/mcL LAB HEMETOLOGY METHOD 08/23/2024 11:30 AM [facility] Hemoglobin 12.0 11.5 - 16.0 g/dL LAB HEMETOLOGY METHOD 08/23/2024 11:30 AM [facility] Hematocrit 36.8 35.0 - 47.0 % LAB HEMETOLOGY METHOD 08/23/2024 11:30 AM [facility] MCV 85.0 79.0 - 98.0 FL LAB HEMETOLOGY METHOD 08/23/2024 11:30 AM [facility] MCH 27.7 27.0 - 32.0 pcg LAB HEMETOLOGY METHOD 08/23/2024 11:30 AM [facility] MCHC 32.6 32.0 - 37.0 g/dL LAB HEMETOLOGY METHOD 08/23/2024 11:30 AM [facility] RDW 14.3 11.0 - 15.0 % LAB HEMETOLOGY METHOD 08/23/2024 11:30 AM [facility] Platelets 310 130 - 400 K/mcL LAB HEMETOLOGY METHOD 08/23/2024 11:30 AM [facility] MPV 10.4 7.0 - 11.0 FL LAB HEMETOLOGY METHOD 08/23/2024 11:30 AM [facility] NRBC 0.0 <1.0 % LAB HEMETOLOGY METHOD 08/23/2024 11:30 AM [facility] NRBC Absolute 0.00 <0.10 K/mcL LAB HEMETOLOGY METHOD 08/23/2024 11:30 AM EST [facility] Blood Venous blood specimen / Unknown Venipuncture / Unknown 08/23/2024 6:30 AM EST 08/23/2024 10:59 AM EST us Venu Morales MD LAB BLOOD ORDERABLES Final Resul t [facility] [address] [place] [address], documented in this encounter Visit Diagnoses Diagnosis Chronic kidney disease, unspecified documented in this encounter Care Teams Record Press Operator Relationship Specialty Start Date End Date Venu Morales MD [address] [place] [address], [phone] PCP - General Family Medicine 07/25/24 documented as of this encounter
--- OUTSIDE RECORDS SUMMARY | 2025-06-13 10:28 | XMS_ITS | Encounter Summary ---
Author Organization [facility] Address [address] [place] [address] Care Team Providers Care Tower Technician Name Role Phone Sunitha Rosales Primary Care Provider [phone] Encounter Details Date Type Department Care Team (Late st Contact Info) Description 03/01/2025 Lab Requisition [facility] [address] [place] [address] Julia De La Garza MD [address] [place] [address] [phone] No diagnosis; Acute respiratory failure with hypoxia (HCC) Social History [...] have money to get more. Patient declined [facility] Utilities Answer Date Recorded In the past 12 months has th [employer] electric, gas, oil, or water company threatened [...] of this encounter Procedures * Due to [facility] law, this organization might not be sharing negative HIV tests. Procedure Name Priority Date/Time Associated Diagnosis Comments CBC AUTO DIFFERENTIAL Routine 03/01/2025 8:35 AM EDT No diagnosis Acute respiratory failure with hypoxia (HCC) COMPREHENSIVE METABOLIC PANEL Routine 03/01/2025 8:35 AM EDT No diagnosis Acute respiratory failure with hypoxia (HCC) documented in this encounter Results * Due to [place] [employer] law, this organization might not be sharing negative HIV tests. * (ABNORMAL) CBC Auto Differential (03/01/2025 8:35 AM EDT) WBC 4.9 4.8 - 10.8 10*3/uL 03/01/2025 9:10 AM EDT [facility] RBC 2.95(L) 4.20 - 5.40 10*6/uL 03/01/2025 9:10 AM EDT [facility] Hemoglobin 8.3(L) 11.7 - 15.5 g/dL 03/01/2025 9:10 AM EDT [facility] Hematocrit 25.7(L) 35.7 - 45.8 % 03/01/2025 9:10 AM EDT [facility] MCV 87.1 81.0 - 99.0 fL 03/01/2025 9:10 AM EDT [facility] MCH 28.1 26.0 - 34.0 pg 03/01/2025 9:10 AM EDT [facility] MCHC 32.3 31.0 - 36.0 g/dL 03/01/2025 9:10 AM EDT [facility] RDW 16.9(H) 12.0 - 15.0 % 03/01/2025 9:10 AM EDT [facility] RDW Standard Deviation 54.0(H) 36.4 - 46.3 fL 03/01/2025 9:10 AM EDT [facility] Platelets 225 140 - 440 10*3/uL 03/01/2025 9:10 AM EDT [facility] MPV 9.4 9.4 - 12.3 fL 03/01/2025 9:10 AM EDT [facility] Neutrophil % 68.6 50.0 - 75.0 % 03/01/2025 9:10 AM EDT [facility] Immature Grans % 0.6 0.0 - 0.9 % 03/01/2025 9:10 AM EDT [facility] Lymphocyte % 22.2 20.0 - 44.0 % 03/01/2025 9:10 AM EDT [facility] Monocyte % 4.3 0.0 - 14.0 % 03/01/2025 9:10 AM EDT [facility] Eosinophil % 3.9 0.0 - 5.0 % 03/01/2025 9:10 AM EDT [facility] Basophil % 0.4 0.0 - 2.0 % 03/01/2025 9:10 AM EDT [facility] Neutrophil # 3.37 1.80 - 7.70 10*3/uL 03/01/2025 9:10 AM EDT [facility] Immature Grans # 0.03 0.00 - 0.03 10*3/uL 03/01/2025 9:10 AM EDT [facility] Lymphocyte # 1.10 1.00 - 4.75 10*3/uL 03/01/2025 9:10 AM EDT [facility] Monocyte # 0.20 0.00 - 0.60 10*3/uL 03/01/2025 9:10 AM EDT [facility] Eosinophil # 0.20 0.00 - 0.80 10*3/uL 03/01/2025 9:10 AM EDT [facility] Basophil # <0.03 0.00 - 0.20 10*3/uL 03/01/2025 9:10 AM EDT [facility] nRBC % 0.0 0 - 0 /100 WBCs 03/01/2025 9:10 AM EDT [facility] nRBC # <0.01 0.00 - 0.13 10*3/uL 03/01/2025 9:10 AM EDT [facility] Blood Structure of peripheral vein / Unknown 03/01/2025 8:35 AM EDT 03/01/2025 8:35 AM EDT us Julia De La Garza MD LAB BLOOD ORDERABLES Final Res ult [facility] [address] [facility] [address] [place] [address], [place] [phone] * (ABNORMAL) Comprehensive Metabolic Panel (03/01/2025 8:35 AM EDT) NA 136 136 - 145 mmol/L 03/01/2025 9:33 AM EDT [facility] K 4.4 3.5 - 5.1 mmol/L 03/01/2025 9:33 AM EDT [facility] Cl 100 98 - 109 mmol/L 03/01/2025 9:33 AM EDT [facility] CO2 23 22 - 32 mmol/L 03/01/2025 9:33 AM EDT [facility] Anion Gap 17 >=0 03/01/2025 9:33 AM EDT [facility] Glucose 100(H) 60 - 99 mg/dL 03/01/2025 9:33 AM EDT [facility] Creatinine 0.16(L) 0.50 - 1.12 mg/dL 03/01/2025 9:33 AM EDT [facility] Calcium 9.9 8.4 - 10.4 mg/dL 03/01/2025 9:33 AM EDT [facility] Total Protein 6.6 6.6 - 8.7 g/dL 03/01/2025 9:33 AM EDT [facility] Albumin 3.7 3.5 - 5.0 g/dL 03/01/2025 9:33 AM EDT [facility] Bilirubin, Total 0.4 0.2 - 1.2 mg/dL 03/01/2025 9:33 AM EDT [facility] Alkaline Phosphatase 66 40 - 129 U/L 03/01/2025 9:33 AM EDT [facility] AST 27 0 - 33 U/L 03/01/2025 9:33 AM EDT [facility] ALT 32 <=33 U/L 03/01/2025 9:33 AM EDT [facility] BUN 13 6 - 20 mg/dL 03/01/2025 9:33 AM EDT [facility] eGFR >90 >=60 mL/min/1. 73m2 03/01/2025 9:33 AM EDT [facility] Comment:The estimated glomer ular filtration rate (eGFR) is calculated using a new formula developed by the NKF-ASN task force to eliminate race-based correction factors. The new formula uses serum/plasma creatinine, age, and gender to determine eGFR. A value below 60mls/min might indicate kidney disease and will be flagged. For additional information, see Brook et al, Am J Kidney Dis. 2021;79(2):268- 288, A Unifying Approach for GFR estimation: Recommendations of the NKF-ASN Task Force on Reassessing the Inclusion of Race in Diagnosing Kidney Disease . Globulin, Total 2.9 2.1 - 4.2 g/dL 03/01/2025 9:33 AM EDT [facility] A/G Ratio 1.3(L) 1.5 - 3.0 03/01/2025 9:33 AM EDT [facility] Blood Structure of peripheral vein / Unknown 03/01/2025 8:35 AM EDT 03/01/2025 8:35 AM EDT us Julia De La Garza MD LAB BLOOD ORDERABLES Final Res ult [facility] [address] [place] [address], documented in this encounter Visit Diagnoses Diagnosis No diagnosis Acute respiratory failure with hypoxia documented in this encounter Care Teams Tower Technician Relationship Specialty Start Date End Date Sunitha Rosales [address] [place] [address] PCP - General Family Medicine 03/02/25 documented as of this encounter
--- OUTSIDE RECORDS SUMMARY | 2025-06-13 10:28 | XMS_ITS | Encounter Summary ---
Demographics Address [address] [facility] [address] [place] [address] Home Phone Work Phone Mobile Phone Home Phone Home Phone Mobile Phone Preferred Language en Marital Status Unknown Confucianist Affiliation Unknown Race Unknown Ethnic Group Unknown Author Organization [facility] Address [address] [place] [address] Care Team Providers Care Student Driving Instructor Name Role Phone Venu Morales MD Primary Care Provider [phone] Encounter Details Date Type Department Care Team (Late st Contact Info) Description 08/30/2024 Lab Requisition [facility] - Main Lab [address] [place] [address] Venu Morales MD [address] [place] [address] [address] [place], [phone] Type 2 diabetes mellitus without complications [...] Associated Diagnosis Comments COMPLETE BLOOD COUNT Routine 08/31/2024 5:18 AM EDT Type 2 diabetes mellitus without complications (CMS/HCC) documented in this encounter Results * (ABNORMAL) Complete blood count (08/31/2024 5:18 AM EDT) WBC 6.1 4.8 - 10.8 [facility] LAB HEMETOLOGY METHOD 08/31/2024 10:10 AM EDT [facility] RBC 3.90 3.80 - 4.80 M/mcL LAB HEMETOLOGY METHOD 08/31/2024 10:10 AM [facility] Hemoglobin 10.7(L) 11.5 - 16.0 g/dL LAB HEMETOLOGY METHOD 08/31/2024 10:10 AM [facility] Hematocrit 32.3(L) 35.0 - 47.0 % LAB HEMETOLOGY METHOD 08/31/2024 10:10 AM [facility] MCV 83.2 79.0 - 98.0 FL LAB HEMETOLOGY METHOD 08/31/2024 10:10 AM [facility] MCH 27.6 27.0 - 32.0 pcg LAB HEMETOLOGY METHOD 08/31/2024 10:10 AM [facility] MCHC 33.1 32.0 - 37.0 g/dL LAB HEMETOLOGY METHOD 08/31/2024 10:10 AM [facility] RDW 14.4 11.0 - 15.0 % LAB HEMETOLOGY METHOD 08/31/2024 10:10 AM [facility] Platelets 283 130 - 400 K/mcL LAB HEMETOLOGY METHOD 08/31/2024 10:10 AM [facility] MPV 9.7 7.0 - 11.0 FL LAB HEMETOLOGY METHOD 08/31/2024 10:10 AM [facility] NRBC 0.0 <1.0 % LAB HEMETOLOGY METHOD 08/31/2024 10:10 AM [facility] NRBC Absolute 0.00 <0.10 K/mcL LAB HEMETOLOGY METHOD 08/31/2024 10:10 AM [facility] Blood Venous blood specimen / Unknown Venipuncture / Unknown 08/31/2024 5:18 AM EDT 08/31/2024 8:52 AM EDT us Venu Morales MD LAB BLOOD ORDERABLES Final Resul t [facility] [address] [place] [address], documented in this encounter Visit Diagnoses Diagnosis Type 2 diabetes mellitus without complications (CMS/HCC V24, CMS/HCC V28) documented in this encounter Care Teams Student Driving Instructor Relationship Specialty Start Date End Date Venu Morales MD [address] [place] [address], [phone] PCP - General Family Medicine 07/25/24 documented as of this encounter
--- OUTSIDE RECORDS SUMMARY | 2025-06-13 10:28 | XMS_ITS | Encounter Summary ---
Demographics Address [address] [facility] [address] [place] [address] Home Phone Work Phone Mobile Phone Home Phone Home Phone Mobile Phone Preferred Language en Marital Status Unknown Alevism Affiliation Unknown Race Unknown Ethnic Group Unknown Author Organization [facility] Address [address] [place] [address] Care Team Providers Care Marshmallow Machine Worker Name Role Phone Venu Morales MD Primary Care Provider [phone] Encounter Details Date Type Department Care Team (Late st Contact Info) Description 08/29/2024 Lab Requisition [facility] - Main Lab [address] [place] [address] Venu Morales MD [address] [place] [address] [address] [place], [phone] Chronic kidney disease, unspecified Social History [...] Associated Diagnosis Comments COMPLETE BLOOD COUNT Routine 08/30/2024 6:19 AM EDT Chronic kidney disease, unspecified BASIC METABOLIC PANEL Routine 08/30/2024 6:19 AM EDT Chronic kidney disease, unspecified documented in this encounter Results * (ABNORMAL) Basic metabolic panel (08/30/2024 6:19 AM EDT) Sodium 137 133 - 145 mmol/L LAB CHEMISTRY METHOD 08/30/2024 10:42 AM EDT [facility] Potassium 3.3(L) 3.5 - 5.5 mmol/L LAB CHEMISTRY METHOD 08/30/2024 10:42 AM [facility] Chloride 100 96 - 110 mmol/L LAB CHEMISTRY METHOD 08/30/2024 10:42 AM [facility] CO2 26 21 - 32 mmol/L LAB CHEMISTRY METHOD 08/30/2024 10:42 AM [facility] Anion Gap 11 3 - 11 LAB CHEMISTRY METHOD 08/30/2024 10:42 AM [facility] Glucose 87 70 - 100 mg/dL LAB CHEMISTRY METHOD 08/30/2024 10:42 AM [facility] BUN 14 5 - 25 mg/dL LAB CHEMISTRY METHOD 08/30/2024 10:42 AM [facility] Creatinine 0.42(L) 0.50 - 1.10 mg/dL LAB CHEMISTRY METHOD 08/30/2024 10:42 AM [facility] eGFR 122 >=60 mL/min/1. 73m2 LAB CHEMISTRY METHOD 08/30/2024 10:42 AM [facility] Comment:Calculation based on the Chronic Kidney Disease Epidemiology Collaboration (CKD-EPI) equation refit without adjustment for race. BUN/Creatinine Ratio 33.3 LAB CHEMISTRY METHOD 08/30/2024 10:42 AM [facility] Calcium 9.1 8.5 - 10.5 mg/dL LAB CHEMISTRY METHOD 08/30/2024 10:42 AM [facility] Blood Venous blood specimen / Unknown Venipuncture / Unknown 08/30/2024 6:19 AM EDT 08/30/2024 9:55 AM EDT us Venu Morales MD LAB BLOOD ORDERABLES Final Resul t [facility] [address] [place] [address], * (ABNORMAL) Complete blood count (08/30/2024 6:19 AM EDT) [facility] WBC 6.8 4.8 - 10.8 K/mcL LAB HEMETOLOGY METHOD 08/30/2024 10:12 AM [facility] RBC 3.90 3.80 - 4.80 M/mcL LAB HEMETOLOGY METHOD 08/30/2024 10:12 AM [facility] Hemoglobin 10.6(L) 11.5 - 16.0 g/dL LAB HEMETOLOGY METHOD 08/30/2024 10:12 AM [facility] Hematocrit 32.5(L) 35.0 - 47.0 % LAB HEMETOLOGY METHOD 08/30/2024 10:12 AM [facility] MCV 84.4 79.0 - 98.0 FL LAB HEMETOLOGY METHOD 08/30/2024 10:12 AM [facility] MCH 27.5 27.0 - 32.0 pcg LAB HEMETOLOGY METHOD 08/30/2024 10:12 AM [facility] MCHC 32.6 32.0 - 37.0 g/dL LAB HEMETOLOGY METHOD 08/30/2024 10:12 AM [facility] RDW 14.2 11.0 - 15.0 % LAB HEMETOLOGY METHOD 08/30/2024 10:12 AM [facility] Platelets 288 130 - 400 K/mcL LAB HEMETOLOGY METHOD 08/30/2024 10:12 AM [facility] MPV 9.9 7.0 - 11.0 FL LAB HEMETOLOGY METHOD 08/30/2024 10:12 AM [facility] NRBC 0.0 <1.0 % LAB HEMETOLOGY METHOD 08/30/2024 10:12 AM [facility] NRBC Absolute 0.00 <0.10 K/mcL LAB HEMETOLOGY METHOD 08/30/2024 10:12 AM EDT [facility] Blood Venous blood specimen / Unknown Venipuncture / Unknown 08/30/2024 6:19 AM EDT 08/30/2024 9:55 AM EDT us Venu Morales MD LAB BLOOD ORDERABLES Final Resul t [facility] [address] [place] [address], [place] [phone] documented in this encounter Visit Diagnoses Diagnosis Chronic kidney disease, unspecified documented in this encounter Care Teams Marshmallow Machine Worker Relationship Specialty Start Date End Date Venu Morales MD [address] [place] [phone] PCP - General Family Medicine 07/25/24 documented as of this encounter
--- OUTSIDE RECORDS SUMMARY | 2025-06-13 10:28 | XMS_ITS | Encounter Summary ---
Author Organization [facility] Address [address] [place] [address] Care Team Providers Care Locomotive Switch Operator Name Role Phone Sunitha Rosales Primary Care Provider [phone] Encounter Details Date Type Department Care Team (Late st Contact Info) Description 03/05/2025 Lab Requisition [facility] [address] [place] [address] Gary Reynolds PA [address] [place] [address] No diagnosis; Acute and chronic respiratory failure [...] have money to get more. Patient declined [facility] Utilities Answer Date Recorded In the [...] of this encounter Procedures * Due to [facility] law, this organization might not be sharing negative HIV tests. Procedure Name Priority Date/Time Associated Diagnosis Comments CBC AUTO DIFFERENTIAL Routine 03/05/2025 10:01 AM EDT No diagnosis Acute and chronic respiratory failure with hypoxia (HCC) COMPREHENSIVE METABOLIC PANEL Routine 03/05/2025 10:01 AM EDT No diagnosis Acute and chronic respiratory failure with hypoxia (HCC) documented in this encounter Results * Due to [facility] law, this organization might not be sharing negative HIV tests. * (ABNORMAL) CBC Auto Differential (03/05/2025 10:01 AM EDT) WBC 4.0(L) 4.8 - 10.8 10*3/uL 03/05/2025 10:39 AM EDT [facility] RBC 3.12(L) 4.20 - 5.40 10*6/uL 03/05/2025 10:39 AM EDT [facility] Hemoglobin 8.8(L) 11.7 - 15.5 g/dL 03/05/2025 10:39 AM EDT [facility] Hematocrit 27.0(L) 35.7 - 45.8 % 03/05/2025 10:39 AM EDT [facility] MCV 86.5 81.0 - 99.0 fL 03/05/2025 10:39 AM EDT [facility] MCH 28.2 26.0 - 34.0 pg 03/05/2025 10:39 AM EDT [facility] MCHC 32.6 31.0 - 36.0 g/dL 03/05/2025 10:39 AM EDT [facility] RDW 15.9(H) 12.0 - 15.0 % 03/05/2025 10:39 AM EDT [facility] RDW Standard Deviation 50.5(H) 36.4 - 46.3 fL 03/05/2025 10:39 AM EDT [facility] Platelets 285 140 - 440 10*3/uL 03/05/2025 10:39 AM EDT [facility] MPV 9.1(L) 9.4 - 12.3 fL 03/05/2025 10:39 AM EDT [facility] Neutrophil % 64.6 50.0 - 75.0 % 03/05/2025 10:39 AM EDT [facility] Immature Grans % 1.0(H) 0.0 - 0.9 % 03/05/2025 10:39 AM EDT [facility] Lymphocyte % 25.3 20.0 - 44.0 % 03/05/2025 10:39 AM EDT [facility] Monocyte % 5.6 0.0 - 14.0 % 03/05/2025 10:39 AM EDT [facility] Eosinophil % 3.0 0.0 - 5.0 % 03/05/2025 10:39 AM EDT [facility] Basophil % 0.5 0.0 - 2.0 % 03/05/2025 10:39 AM EDT [facility] Neutrophil # 2.55 1.80 - 7.70 10*3/uL 03/05/2025 10:39 AM EDT [facility] Immature Grans # 0.04(H) 0.00 - 0.03 10*3/uL 03/05/2025 10:39 AM EDT [facility] Lymphocyte # 1.00 1.00 - 4.75 10*3/uL 03/05/2025 10:39 AM EDT [facility] Monocyte # 0.20 0.00 - 0.60 10*3/uL 03/05/2025 10:39 AM EDT [facility] Eosinophil # 0.10 0.00 - 0.80 10*3/uL 03/05/2025 10:39 AM EDT [facility] Basophil # <0.03 0.00 - 0.20 10*3/uL 03/05/2025 10:39 AM EDT [facility] nRBC % 0.0 0 - 0 /100 WBCs 03/05/2025 10:39 AM EDT [facility] nRBC # <0.01 0.00 - 0.13 10*3/uL 03/05/2025 10:39 AM EDT [facility] Blood Structure of peripheral vein / Unknown Venipuncture / Unknown 03/05/2025 10:01 AM EDT 03/05/2025 10:02 AM EDT us Gary GARCIA LAB BLOOD ORDERABLES Final R esult [facility] [address] [place] [address] [address] [place] [address], * (ABNORMAL) Comprehensive Metabolic Panel (03/05/2025 10:01 AM EDT) NA 135(L) 136 - 145 mmol/L 03/05/2025 11:04 AM EDT [facility] K 4.1 3.5 - 5.1 mmol/L 03/05/2025 11:04 AM EDT [facility] Cl 97(L) 98 - 109 mmol/L 03/05/2025 11:04 AM EDT [facility] CO2 28 22 - 32 mmol/L 03/05/2025 11:04 AM EDT [facility] Anion Gap 14 >=0 03/05/2025 11:04 AM EDT [facility] Glucose 100(H) 60 - 99 mg/dL 03/05/2025 11:04 AM EDT [facility] Creatinine 0.24(L) 0.50 - 1.12 mg/dL 03/05/2025 11:04 AM EDT [facility] Comment:ALL DELTAS REVIEWED Calcium 10.2 8.4 - 10.4 mg/dL 03/05/2025 11:04 AM EDT [facility] Total Protein 6.6 6.6 - 8.7 g/dL 03/05/2025 11:04 AM T [facility] Albumin 4.1 3.5 - 5.0 g/dL 03/05/2025 11:04 AM [facility] Bilirubin, Total 0.5 0.2 - 1.2 mg/dL 03/05/2025 11:04 AM T [facility] Alkaline Phosphatase 72 40 - 129 U/L 03/05/2025 11:04 AM T [facility] AST 25 0 - 33 U/L 03/05/2025 11:04 AM T [facility] ALT 31 <=33 U/L 03/05/2025 11:04 AM [facility] BUN 17 6 - 20 mg/dL 03/05/2025 11:04 AM [facility] eGFR >90 >=60 mL/min/1. 73m2 03/05/2025 11:04 AM [facility] Comment:The estimated glomer ular filtration rate (eGFR) is calculated using a new formula developed by the NKF-ASN task force to eliminate race-based correction factors. The new formula uses serum/plasma creatinine, age, and gender to determine eGFR. A value below 60mls/min might indicate kidney disease and will be flagged. For additional information, see Doe et al, Am J Kidney Dis. 2021;79(2):268- 288, A Unifying Approach for GFR estimation: Recommendations of the NKF-ASN Task Force on Reassessing the Inclusion of Race in Diagnosing Kidney Disease . Globulin, Total 2.5 2.1 - 4.2 g/dL 03/05/2025 11:04 AM [facility] A/G Ratio 1.6 1.5 - 3.0 03/05/2025 11:04 AM [facility] Blood Structure of peripheral vein / Unknown Venipuncture / Unknown 03/05/2025 10:01 AM EDT 03/05/2025 10:02 AM EDT us Gary GARCIA LAB BLOOD ORDERABLES Final R esult [facility] [address] [place] [address], documented in this encounter Visit Diagnoses Diagnosis No diagnosis Acute and chronic respiratory failure with hypoxia documented in this encounter Care Teams Locomotive Switch Operator Relationship Specialty Start Date End Date Sunitha Rosales [address] [place] [id number] PCP - General Family Medicine 03/02/25 documented as of this encounter
--- OUTSIDE RECORDS SUMMARY | 2025-06-13 10:28 | XMS_ITS | Encounter Summary ---
Author Organization [employer] Address [address] [place] [address] Care Team Providers Care Pad Hand Name Role Phone Venu Morales MD Primary Care Provider [phone] Encounter Details Date Type Department Care Team (Late st Contact Info) Description 08/01/[address] [facility] - Main Lab [address] [facility] [place] [address] Venu Morales MD [address] [place] [address], [phone] Chronic kidney disease, unspecified; Type 2 diabetes mellitus without complications (CMS/HCC [...] unspecified Type 2 diabetes mellitus without complications (CMS/HCC V24, CMS/HCC V28) documented in this encounter Care Teams Pad Hand Relationship Specialty Start Date End Date Venu Morales MD [address] [place] [address] [address] [place], [phone] PCP - General Family Medicine 07/25/24 documented as of this encounter
--- OUTSIDE RECORDS SUMMARY | 2025-06-13 10:28 | XMS_ITS | Encounter Summary ---
Demographics Address [address] [facility] [address] [place] [address] Home Phone Work Phone Mobile Phone Home Phone Home Phone Mobile Phone Preferred Language en Marital Status Unknown Religion Affiliation Unknown Race Unknown Ethnic Group Unknown Author Organization [facility] Address [address] [place] [address] Care Team Providers Care Durability Engineer Name Role Phone Venu Morales MD Primary Care Provider [phone] Encounter Details Date Type Department Care Team (Late st Contact Info) Description 07/27/2024 Lab Requisition [facility] - Main Lab [address] [place] [address] Venu Morales MD [address] [place] [address] [address] [place], [phone] Type 2 diabetes mellitus without complications [...] AM EST) WBC 9.4 4.8 - 10.8 K/[facility] LAB HEMETOLOGY METHOD 07/27/2024 10:41 AM EST [facility] LAB RBC 4.30 3.80 - 4.80 M/mcL LAB HEMETOLOGY METHOD 07/27/2024 10:41 AM [facility] LAB Hemoglobin 11.8 11.5 - 16.0 g/dL LAB HEMETOLOGY METHOD 07/27/2024 10:41 AM [facility] LAB Hematocrit 35.6 35.0 - 47.0 % LAB HEMETOLOGY METHOD 07/27/2024 10:41 AM [facility] LAB MCV 82.4 79.0 - 98.0 FL LAB HEMETOLOGY METHOD 07/27/2024 10:41 AM [facility] LAB MCH 27.3 27.0 - 32.0 pcg LAB HEMETOLOGY METHOD 07/27/2024 10:41 AM [facility] LAB MCHC 33.1 32.0 - 37.0 g/dL LAB HEMETOLOGY METHOD 07/27/2024 10:41 AM [facility] LAB RDW 13.3 11.0 - 15.0 % LAB HEMETOLOGY METHOD 07/27/2024 10:41 AM [facility] LAB Platelets 344 130 - 400 K/mcL LAB HEMETOLOGY METHOD 07/27/2024 10:41 AM [facility] LAB MPV 10.4 7.0 - 11.0 FL LAB HEMETOLOGY METHOD 07/27/2024 10:41 AM [facility] LAB NRBC 0.0 <1.0 % LAB HEMETOLOGY METHOD 07/27/2024 10:41 AM [facility] LAB NRBC Absolute 0.00 <0.10 K/mcL LAB HEMETOLOGY METHOD 07/27/2024 10:41 AM [facility] LAB Blood Venous blood specimen / Unknown Venipuncture / Unknown 07/27/2024 6:38 AM EST 07/27/2024 9:42 AM EST us Venu Morales MD LAB BLOOD ORDERABLES Final Resul t [facility] LAB [address] [place] [address], documented in this encounter Visit Diagnoses Diagnosis Type 2 diabetes mellitus without complications (CMS/HCC V24, CMS/HCC V28) documented in this encounter Care Teams Durability Engineer Relationship Specialty Start Date End Date Venu Morales MD [address] [place] [address], [phone] PCP - General Family Medicine 07/25/24 documented as of this encounter
--- OUTSIDE RECORDS SUMMARY | 2025-06-13 10:28 | XMS_ITS | Encounter Summary ---
Author Organization [facility] Address [address] [place] [address] Care Team Providers Care Mine Motor Engineer Name Role Phone Sunitha Rosales Primary Care Provider [phone] Encounter Details Date Type Department Care Team (Late st Contact Info) Description 03/08/2025 Lab Requisition [facility] Site [address] [place] [address] [phone] Julia De La Garza MD [address] [place] [phone] No diagnosis; Respiratory failure, unspecified, unspecified whether with hypoxia or hypercapnia (HCC) Social History Tobacco Use Types Packs/Day [...] have money to get more. Patient declined [facility] Utilities Answer Date Recorded In the [...] of this encounter Procedures * Due to [place] [employer] law, this organization might not be sharing negative HIV tests. Procedure Name Priority Date/Time Associated Diagnosis Comments RESPIRATORY CULTURE W/GRAM STAIN Routine 03/08/2025 11:48 AM EDT No diagnosis Respiratory failure, unspecified, unspecified whether with hypoxia or hypercapnia (HCC) documented in this encounter Results * Due to [place] [employer] law, this organization might not be sharing negative HIV tests. * (ABNORMAL) Respiratory Culture w/Gram Stain (03/08/2025 11:48 AM EDT) Respiratory Culture Moderate Devorah parapsilosis species complex(A) MINIMUM INHIBITORY CONCENTRATION (JENNIFER) 03/12/2025 10:25 AM EDT [facility] Gram Stain Result <10 per LPF Epithelial Cells 03/12/2025 10:25 AM EDT [facility] Gram Stain Result >25 per LPF White Blood Cells Seen 03/12/2025 10:25 AM EDT [facility] Gram Stain Result Rare Gram Positive Cocci 03/12/2025 10:25 AM EDT [facility] Sputum Sputum / Unknown Non-Blood Collection / Unknown 03/08/2025 11:48 AM EDT 03/08/2025 11:48 AM EDT Narrative [facility] LAB - 03/12/2025 10:25 AM EDT Few normal respiratory kellie present. us Julia De La Garza MD LAB MICROBIOLOGY - GENERAL ORD ERABLES Final Result [facility] LAB [address] [place] [address] [address] [place] [address], [place] [phone] documented in this encounter Visit Diagnoses Diagnosis No diagnosis Respiratory failure, unspecified, unspecified whether with hypoxia or hypercapnia documented in this encounter Care Teams Mine Motor Engineer Relationship Specialty Start Date End Date Sunitha Rosales [address] [place] [phone] PCP - General Family Medicine 03/02/25 documented as of this encounter
--- OUTSIDE RECORDS SUMMARY | 2025-06-13 10:28 | XMS_ITS | Encounter Summary ---
Demographics Address [address] [facility] [address] [place] [address] Home Phone Work Phone Mobile Phone Home Phone Home Phone Mobile Phone Preferred Language en Marital Status Unknown Hinduism Affiliation Unknown Race Unknown Ethnic Group Unknown Author Organization [facility] Address [address] [place] [address] Care Team Providers Care Pulmonology Technician Name Role Phone Venu Morales MD Primary Care Provider [phone] Encounter Details Date Type Department Care Team (Late st Contact Info) Description 08/17/2024 Lab Requisition [facility] - Main Lab [address] [facility] [place] [address] Venu Morales MD [address] [place] [address] [address] [place], [phone] Type 2 diabetes mellitus without complications [...] Diagnosis Comments COMPLETE BLOOD COUNT Routine 08/17/2024 11:54 AM EST Type 2 diabetes mellitus without complications (CMS/HCC) BASIC METABOLIC PANEL Routine 08/17/2024 11:54 AM EST Type 2 diabetes mellitus without complications (CMS/HCC) documented in this encounter Results * Complete blood count (08/17/2024 11:54 AM EST) WBC 7.2 4.8 - 10.8 K/[facility] LAB HEMETOLOGY METHOD 08/17/2024 12:54 PM [facility] LAB RBC 4.30 3.80 - 4.80 M/[facility] LAB HEMETOLOGY METHOD 08/17/2024 12:54 PM [facility] LAB Hemoglobin 11.8 11.5 - 16.0 g/dL LAB HEMETOLOGY METHOD 08/17/2024 12:54 PM [facility] LAB Hematocrit 36.2 35.0 - 47.0 % LAB HEMETOLOGY METHOD 08/17/2024 12:54 PM [facility] LAB MCV 83.8 79.0 - 98.0 FL LAB HEMETOLOGY METHOD 08/17/2024 12:54 PM [facility] LAB MCH 27.3 27.0 - 32.0 pcg LAB HEMETOLOGY METHOD 08/17/2024 12:54 PM [facility] LAB MCHC 32.6 32.0 - 37.0 g/dL LAB HEMETOLOGY METHOD 08/17/2024 12:54 PM [facility] LAB RDW 13.9 11.0 - 15.0 % LAB HEMETOLOGY METHOD 08/17/2024 12:54 PM [facility] LAB Platelets 340 130 - 400 K/[facility] LAB HEMETOLOGY METHOD 08/17/2024 12:54 PM [facility] LAB MPV 9.8 7.0 - 11.0 FL LAB HEMETOLOGY METHOD 08/17/2024 12:54 PM [facility] LAB NRBC 0.0 <1.0 % LAB HEMETOLOGY METHOD 08/17/2024 12:54 PM [facility] LAB NRBC Absolute 0.00 <0.10 K/[facility] LAB HEMETOLOGY METHOD 08/17/2024 12:54 PM [facility] LAB Blood Venous blood specimen / Unknown Venipuncture / Unknown 08/17/2024 11:54 AM EST 08/17/2024 12:23 PM EST us Venu Morales MD LAB BLOOD ORDERABLES Final Resul t [facility] LAB [address] [place] [address], [place] [phone] * (ABNORMAL) Basic metabolic panel (08/17/2024 11:54 AM EST) Sodium 135 133 - 145 mmol/L LAB CHEMISTRY METHOD 08/17/2024 3:42 PM [facility] LAB Potassium 4.0 3.5 - 5.5 mmol/L LAB CHEMISTRY METHOD 08/17/2024 3:42 PM [facility] LAB Chloride 100 96 - 110 mmol/L LAB CHEMISTRY METHOD 08/17/2024 3:42 PM [facility] LAB CO2 27 21 - 32 mmol/L LAB CHEMISTRY METHOD 08/17/2024 3:42 PM [facility] LAB Anion Gap 8 3 - 11 LAB CHEMISTRY METHOD 08/17/2024 3:42 PM [facility] LAB Glucose 106(H) 70 - 100 mg/dL LAB CHEMISTRY METHOD 08/17/2024 3:42 PM [facility] LAB BUN 15 5 - 25 mg/dL LAB CHEMISTRY METHOD 08/17/2024 3:42 PM [facility] LAB Creatinine 0.59 0.50 - 1.10 mg/dL LAB CHEMISTRY METHOD 08/17/2024 3:42 PM [facility] LAB eGFR 113 >=60 mL/min/1. 73m2 LAB CHEMISTRY METHOD 08/17/2024 3:42 PM [facility] LAB Comment:Calculation based on the Chronic Kidney Disease Epidemiology Collaboration (CKD-EPI) equation refit without adjustment for race. BUN/Creatinine Ratio 25.4 LAB CHEMISTRY METHOD 08/17/2024 3:42 PM [facility] LAB Calcium 10.4 8.5 - 10.5 mg/dL LAB CHEMISTRY METHOD 08/17/2024 3:42 PM EST [facility] LAB Blood Venous blood specimen / Unknown Venipuncture / Unknown 08/17/2024 11:54 AM EST 08/17/2024 12:23 PM EST us Venu Morales MD LAB BLOOD ORDERABLES Final Resul t [facility] LAB [address] [place] [address], documented in this encounter Visit Diagnoses Diagnosis Type 2 diabetes mellitus without complications (CMS/HCC V24, CMS/HCC V28) documented in this encounter Care Teams Pulmonology Technician Relationship Specialty Start Date End Date Venu Morales MD [address] [place] [address], [phone] PCP - General Family Medicine 07/25/24 documented as of this encounter
--- OUTSIDE RECORDS SUMMARY | 2025-06-13 10:28 | XMS_ITS | Encounter Summary ---
Author Organization [facility] Address [address] [place] [address] Care Team Providers Care General Ophthalmologist Name Role Phone Venu Morales MD Primary Care Provider [phone] Encounter Details Date Type Department Care Team (Late st Contact Info) Description 09/05/2024 Lab Requisition [facility] - Main Lab [address] [facility] [place] [address] Venu Morales MD [address] [place] [address] [address] [place], [phone] Chronic kidney disease, unspecified Social History Tobacco [...] unspecified documented in this encounter Care Teams General Ophthalmologist Relationship Specialty Start Date End Date Venu Morales MD [address] [facility] [address] [place], [phone] PCP - General Family Medicine 07/25/24 documented as of this encounter
--- OUTSIDE RECORDS SUMMARY | 2025-06-13 10:28 | XMS_ITS | Encounter Summary ---
Demographics Address [address] [facility] [address] [place] [address] Home Phone Work Phone Mobile Phone Home Phone Home Phone Mobile Phone Preferred Language en Marital Status Unknown Latter-Day Affiliation Unknown Race Unknown Ethnic Group Unknown Author Organization [facility] Address [address] [place] [address] Care Team Providers Care Hadoop Administrator Name Role Phone Venu Morales MD Primary Care Provider [phone] Encounter Details Date Type Department Care Team (Late st Contact Info) Description 07/25/2024 Lab Requisition [facility] - Main Lab [address] [facility] [place] [address] Venu Morales MD [address] [place] [address] [address] [place], [phone] Chronic kidney disease, unspecified Social History [...] K/mcL LAB HEMETOLOGY METHOD 07/25/2024 9:05 AM [facility] LAB RBC 4.50 3.80 - 4.80 M/mcL LAB HEMETOLOGY METHOD 07/25/2024 9:05 AM [facility] LAB Hemoglobin 12.3 11.5 - 16.0 g/dL LAB HEMETOLOGY METHOD 07/25/2024 9:05 AM [facility] LAB Hematocrit 36.8 35.0 - 47.0 % LAB HEMETOLOGY METHOD 07/25/2024 9:05 AM [facility] LAB MCV 82.0 79.0 - 98.0 FL LAB HEMETOLOGY METHOD 07/25/2024 9:05 AM [facility] LAB MCH 27.4 27.0 - 32.0 pcg LAB HEMETOLOGY METHOD 07/25/2024 9:05 AM [facility] LAB MCHC 33.4 32.0 - 37.0 g/dL LAB HEMETOLOGY METHOD 07/25/2024 9:05 AM [facility] LAB RDW 13.2 11.0 - 15.0 % LAB HEMETOLOGY METHOD 07/25/2024 9:05 AM [facility] LAB Platelets 313 130 - 400 K/mcL LAB HEMETOLOGY METHOD 07/25/2024 9:05 AM [facility] LAB MPV 10.0 7.0 - 11.0 FL LAB HEMETOLOGY METHOD 07/25/2024 9:05 AM [facility] LAB NRBC 0.0 <1.0 % LAB HEMETOLOGY METHOD 07/25/2024 9:05 AM [facility] LAB NRBC Absolute 0.00 <0.10 K/mcL LAB HEMETOLOGY METHOD 07/25/2024 9:05 AM [facility] LAB Neutrophils Relative 59.3 % LAB HEMETOLOGY METHOD 07/25/2024 9:05 AM [facility] LAB Lymphocytes Relative 32.4 % LAB HEMETOLOGY METHOD 07/25/2024 9:05 AM [facility] LAB Monocytes Relative 5.5 % LAB HEMETOLOGY METHOD 07/25/2024 9:05 AM [facility] LAB Eosinophils Relative 2.1 % LAB HEMETOLOGY METHOD 07/25/2024 9:05 AM [facility] LAB Basophils Relative 0.4 % LAB HEMETOLOGY METHOD 07/25/2024 9:05 AM [facility] LAB Immature Granulocytes Relative 0.3 % LAB HEMETOLOGY METHOD 07/25/2024 9:05 AM [facility] LAB Neutrophils Absolute 3.96 1.50 - 7.00 K/mcL LAB HEMETOLOGY METHOD 07/25/2024 9:05 AM [facility] LAB Lymphocytes Absolute 2.17 1.00 - 5.00 K/mcL LAB HEMETOLOGY METHOD 07/25/2024 9:05 AM [facility] LAB Monocytes Absolute 0.37 0.20 - 1.00 K/mcL LAB HEMETOLOGY METHOD 07/25/2024 9:05 AM [facility] LAB Eosinophils Absolute 0.14 0.00 - 0.50 K/mcL LAB HEMETOLOGY METHOD 07/25/2024 9:05 AM [facility] LAB Basophils Absolute 0.03 0.00 - 0.20 K/mcL LAB HEMETOLOGY METHOD 07/25/2024 9:05 AM [facility] LAB Immature Granulocytes Absolute 0.02 0.00 - 0.03 K/mcL LAB HEMETOLOGY METHOD 07/25/2024 9:05 AM [facility] LAB Blood Venous blood specimen / Unknown Venipuncture / Unknown 07/25/2024 7:16 AM EST 07/25/2024 8:50 AM EST us Venu Morales MD LAB BLOOD ORDERABLES Final Resul t [facility] LAB [address] [place] [address], * (ABNORMAL) Comprehensive metabolic panel (07/25/2024 7:16 AM EST) Sodium 133 133 - 145 mmol/L LAB CHEMISTRY METHOD 07/25/2024 9:50 AM [facility] LAB Potassium 4.3 3.5 - 5.5 mmol/L LAB CHEMISTRY METHOD 07/25/2024 9:50 AM [facility] LAB Chloride 99 96 - 110 mmol/L LAB CHEMISTRY METHOD 07/25/2024 9:50 AM [facility] LAB CO2 27 21 - 32 mmol/L LAB CHEMISTRY METHOD 07/25/2024 9:50 AM [facility] LAB Anion Gap 7 3 - 11 LAB CHEMISTRY METHOD 07/25/2024 9:50 AM [facility] LAB Glucose 81 70 - 100 mg/dL LAB CHEMISTRY METHOD 07/25/2024 9:50 AM [facility] LAB BUN 20 5 - 25 mg/dL LAB CHEMISTRY METHOD 07/25/2024 9:50 AM [facility] LAB Creatinine 0.45(L) 0.50 - 1.10 mg/dL LAB CHEMISTRY METHOD 07/25/2024 9:50 AM [facility] LAB eGFR 120 >=60 mL/min/1. 73m2 LAB CHEMISTRY METHOD 07/25/2024 9:50 AM [facility] LAB Comment:Calculation based on the Chronic Kidney Disease Epidemiology Collaboration (CKD-EPI) equation refit without adjustment for race. BUN/Creatinine Ratio 44.4 LAB CHEMISTRY METHOD 07/25/2024 9:50 AM [facility] LAB Calcium 9.5 8.5 - 10.5 mg/dL LAB CHEMISTRY METHOD 07/25/2024 9:50 AM [facility] LAB AST (SGOT) 17 10 - 42 unit/L LAB CHEMISTRY METHOD 07/25/2024 9:50 AM [facility] LAB ALT (SGPT) 28 10 - 60 unit/L LAB CHEMISTRY METHOD 07/25/2024 9:50 AM [facility] LAB Alkaline Phosphatase 78 42 - 121 unit/L LAB CHEMISTRY METHOD 07/25/2024 9:50 AM [facility] LAB Total Protein 7.6 6.0 - 8.0 g/dL LAB CHEMISTRY METHOD 07/25/2024 9:50 AM [facility] LAB Albumin 3.6 3.2 - 5.0 g/dL LAB CHEMISTRY METHOD 07/25/2024 9:50 AM [facility] LAB Total Bilirubin 0.4 0.0 - 1.4 mg/dL LAB CHEMISTRY METHOD 07/25/2024 9:50 AM [facility] LAB Blood Venous blood specimen / Unknown Venipuncture / Unknown 07/25/2024 7:16 AM EST 07/25/2024 8:50 AM EST us Venu Morales MD LAB BLOOD ORDERABLES Final Resul t [facility] LAB [address] [place] [address], documented in this encounter Visit Diagnoses Diagnosis Chronic kidney disease, unspecified documented in this encounter Care Teams Hadoop Administrator Relationship Specialty Start Date End Date Venu Morales MD [address] [facility] [address] [place], [phone] PCP - General Family Medicine 07/25/24 documented as of this encounter
--- OUTSIDE RECORDS SUMMARY | 2025-06-13 10:28 | XMS_ITS | Encounter Summary ---
Author Organization [facility] Address [address] [place] [address] Care Team Providers Care Security Sales Consultant Name Role Phone Sunitha Rosales Primary Care Provider [phone] Encounter Details Date Type Department Care Team (Late st Contact Info) Description 02/15/2025 Lab Requisition [facility] Lab [address] [place] [address] Sulema Parmar MD [address] [place] [phone] No diagnosis; Acute and chronic respiratory failure with hypoxia (HCC) Social History Tobacco Use Types Packs/Day Years Used Date Smoking Tobacco: Never Assessed Hunger Vital Sign Answer Date Recorded Within the past 12 months, y ou worried that your food would run out before you got the money to buy more. Patient declined Within the past 12 months, t he food you bought just didn't last and you didn't have money to get more. Patient declined [facility] Utilities Answer Date Recorded In the past [...] your living situation today? [facility] 02/17/2025 Comments Unknown Sex and Gender Information Value Date Recorded Sex Assigned at Female 02/17/2025 6:52 AM EDT Legal Sex Female 10:42 AM EDT Gender Identity Not on file Sexual Orientation Not on file documented as of this encounter Plan of Treatment Not on file documented as of this encounter Procedures * Due to [place] state law, this organization might not be sharing negative HIV tests. Procedure Name Priority Date/Time Associated Diagnosis Comments N-TERMINAL PROBRAIN NATRIURETIC PEPTIDE Routine 02/15/2025 10:44 AM EDT No diagnosis Acute and chronic respiratory failure with hypoxia (HCC) CBC AUTO DIFFERENTIAL Routine 02/15/2025 10:44 AM EDT No diagnosis Acute and chronic respiratory failure with hypoxia (HCC) TSH Routine 02/15/2025 10:44 AM EDT No diagnosis Acute and chronic respiratory failure with hypoxia (HCC) T4, FREE Routine 02/15/2025 10:44 AM EDT No diagnosis Acute and chronic respiratory failure with hypoxia (HCC) PHOSPHORUS Routine 02/15/2025 10:44 AM EDT No diagnosis Acute and chronic respiratory failure with hypoxia (HCC) MAGNESIUM Routine 02/15/2025 10:44 AM EDT No diagnosis Acute and chronic respiratory failure with hypoxia (HCC) HEMOGLOBIN A1C Routine 02/15/2025 10:44 AM EDT No diagnosis Acute and chronic respiratory failure with hypoxia (HCC) VITAMIN B12 Routine 02/15/2025 10:44 AM EDT No diagnosis Acute and chronic respiratory failure with hypoxia (HCC) AMMONIA Routine 02/15/2025 10:44 AM EDT No diagnosis Acute and chronic respiratory failure with hypoxia (HCC) COMPREHENSIVE METABOLIC PANEL Routine 02/15/2025 10:44 AM EDT No diagnosis Acute and chronic respiratory failure with hypoxia (HCC) documented in this encounter Results * Due to [place] state law, this organization might not be sharing negative HIV tests. * (ABNORMAL) CBC Auto Differential (02/15/2025 10:44 AM EDT) WBC 20.0(H) 4.8 - 10.8 10*3/uL 02/15/2025 11:11 AM EDT [facility] RBC 4.71 4.20 - 5.40 10*6/uL 02/15/2025 11:11 AM EDT [facility] Hemoglobin 13.2 11.7 - 15.5 g/dL 02/15/2025 11:11 AM EDT [facility] Hematocrit 40.4 35.7 - 45.8 % 02/15/2025 11:11 AM EDT [facility] MCV 85.8 81.0 - 99.0 fL 02/15/2025 11:11 AM EDT [facility] MCH 28.0 26.0 - 34.0 pg 02/15/2025 11:11 AM EDT [facility] MCHC 32.7 31.0 - 36.0 g/dL 02/15/2025 11:11 AM EDT [facility] RDW 15.8(H) 12.0 - 15.0 % 02/15/2025 11:11 AM EDT [facility] RDW Standard Deviation 48.8(H) 36.4 - 46.3 fL 02/15/2025 11:11 AM EDT [facility] Platelets 361 140 - 440 10*3/uL 02/15/2025 11:11 AM EDT [facility] MPV 9.7 9.4 - 12.3 fL 02/15/2025 11:11 AM EDT [facility] Neutrophil % 76.2(H) 50.0 - 75.0 % 02/15/2025 11:11 AM EDT [facility] Immature Grans % 1.1(H) 0.0 - 0.9 % 02/15/2025 11:11 AM EDT [facility] Lymphocyte % 15.5(L) 20.0 - 44.0 % 02/15/2025 11:11 AM EDT [facility] Monocyte % 6.9 0.0 - 14.0 % 02/15/2025 11:11 AM EDT [facility] Eosinophil % 0.1 0.0 - 5.0 % 02/15/2025 11:11 AM EDT [facility] Basophil % 0.2 0.0 - 2.0 % 02/15/2025 11:11 AM EDT [facility] Neutrophil # 15.24(H) 1.80 - 7.70 10*3/uL 02/15/2025 11:11 AM EDT [facility] Immature Grans # 0.22(H) 0.00 - 0.03 10*3/uL 02/15/2025 11:11 AM EDT [facility] Lymphocyte # 3.10 1.00 - 4.75 10*3/uL 02/15/2025 11:11 AM EDT [facility] Monocyte # 1.40(H) 0.00 - 0.60 10*3/uL 02/15/2025 11:11 AM EDT [facility] Eosinophil # <0.03 0.00 - 0.80 10*3/uL 02/15/2025 11:11 AM EDT [facility] Basophil # <0.03 0.00 - 0.20 10*3/uL 02/15/2025 11:11 AM EDT [facility] nRBC % 0.0 0 - 0 /100 WBCs 02/15/2025 11:11 AM EDT [facility] nRBC # <0.01 0.00 - 0.13 10*3/uL 02/15/2025 11:11 AM EDT [facility] Blood Structure of peripheral vein / Unknown 02/15/2025 10:44 AM EDT 02/15/2025 10:44 AM EDT us Sulema Parmar MD LAB BLOOD ORDERABLES Final Res ult [facility] [address] [address], [place] [phone] * (ABNORMAL) Vitamin B12 (02/15/2025 10:44 AM EDT) Vitamin B12 1,863(H) 232 - 1,245 pg/mL 02/15/2025 11:45 AM EDT [facility] Blood Structure of peripheral vein / Unknown Venipuncture / Unknown 02/15/2025 10:44 AM EDT 02/15/2025 10:44 AM EDT us Sulema Parmar MD LAB BLOOD ORDERABLES Final Res ult Performing Organization Address [facility] Co de Phone Number [facility] [address] [place] [address], [place] [phone] * TSH (02/15/2025 10:44 AM EDT) TSH 2.070 0.270 - 4.200 uIU/mL 02/15/2025 11:45 AM EDT [facility] Comment: Females: 1st trimester 0.150-4.000 IU/mL 2nd trimester 0.310-4.170 IU/mL 3rd trimester 0.380-4.150 IU/mL Blood Structure of peripheral vein / Unknown Venipuncture / Unknown 02/15/2025 10:44 AM EDT 02/15/2025 10:44 AM EDT us Sulema Parmar MD LAB BLOOD ORDERABLES Final Res ult Performing Organization Address City/[facility]/ZIP Co de Phone Number [facility] [address] [place] [address], [place] [phone] * T4, Free (02/15/2025 10:44 AM EDT) Free T4 1.75 0.80 - 1.80 ng/dL 02/15/2025 11:45 AM EDT [facility] Comment: Females: (ng/dL) First Trimester 0.95-1.58 ng/dL Second Trimester 0.76-1.24 ng/dL Third Trimester 0.70-1.25 ng/dL Dietary supplements containing biotin may interfere in assays and may skew analyte results to be falsely high. For patients receiving the recommended daily doses of biotin, draw samples at least 8 hours following the last biotin supplementation. For patients on candy-doses of biotin supplements, draw samples at least 72 hours following the last biotin supplementation. Effective 2024, Free T4 reference range (>=18 years old) is 0.8 - 1.8 ng/dL, replacing the previous range of 0.93 - 1.70 ng/dL. Blood Structure of peripheral vein / Unknown Venipuncture / Unknown 02/15/2025 10:44 AM EDT 02/15/2025 10:44 AM EDT us Sulema Parmar MD LAB BLOOD ORDERABLES Final Res ult [facility] [address] [address], [place] [phone] * Phosphorus (02/15/2025 10:44 AM EDT) Phosphorus 3.7 2.5 - 4.5 mg/dL 02/15/2025 11:45 AM EDT [facility] Blood Structure of peripheral vein / Unknown Venipuncture / Unknown 02/15/2025 10:44 AM EDT 02/15/2025 10:44 AM EDT us Sulema Parmar MD LAB BLOOD ORDERABLES Final Res ult [facility] [address] [address], [place] [phone] * Magnesium (02/15/2025 10:44 AM EDT) MG 2.0 1.5 - 2.5 mg/dL 02/15/2025 11:45 AM EDT [facility] Blood Structure of peripheral vein / Unknown Venipuncture / Unknown 02/15/2025 10:44 AM EDT 02/15/2025 10:44 AM EDT us Sulema Parmar MD LAB BLOOD ORDERABLES Final Res ult Performing Organization Address [facility] Co de Phone Number [facility] [address] [address], [place] [phone] * (ABNORMAL) Hemoglobin A1c (02/15/2025 10:44 AM EDT) Hemoglobin A1c 7.1(H) 4.0 - 5.7 % 02/15/2025 11:23 AM EDT [facility] Estimated Average Glucose 157 mg/dL 02/15/2025 11:23 AM EDT [facility] Blood Structure of peripheral vein / Unknown 02/15/2025 10:44 AM EDT 02/15/2025 10:44 AM EDT us Sulema Parmar MD LAB BLOOD ORDERABLES Final Res ult Performing Organization Address [facility] Co de Phone Number [facility] [address] [address], [place] [phone] * Ammonia (02/15/2025 10:44 AM EDT) Ammonia 42 11 - 51 umol/L 02/15/2025 11:28 AM EDT [facility] Blood Structure of peripheral vein / Unknown 02/15/2025 10:44 AM EDT 02/15/2025 10:44 AM EDT us Sulema Parmar MD LAB BLOOD ORDERABLES Final Res ult Performing Organization Address City/[facility]/ZIP Co de Phone Number [facility] [address] [address], [place] [phone] * N-terminal ProBrain Natriuretic Peptide - [facility] MEM/JAMAV/Samantha Only (02/15/2025 10:44 AM EDT) [facility] Pro-B-Type Natriuretic Peptide 75 <=450 pg/mL 02/15/2025 11:22 AM EDT [facility] Comment: RULE IN CHF >/= 450 pg/mL for patients <50 years old RULE IN CHF >/= 900 pg/mL for patients 50-75 years old RULE IN CHF >/= 1800 pg/mL for patients >75 years old RULE OUT CHF </= 300 pg/mL (not age specific) Blood Structure of peripheral vein / Unknown 02/15/2025 10:44 AM EDT 02/15/2025 10:44 AM EDT Sulema Parmar MD LAB BLOOD ORDERABLES Final Res ult [facility] [address] [facility] [address] [place] [address], [place] [phone] * (ABNORMAL) Comprehensive Metabolic Panel (02/15/2025 10:44 AM EDT) [facility] NA 138 136 - 145 mmol/L 02/15/2025 11:45 AM EDT [facility] K 4.8 3.5 - 5.1 mmol/L 02/15/2025 11:45 AM EDT [facility] Cl 93(L) 98 - 109 mmol/L 02/15/2025 11:45 AM EDT [facility] CO2 32 22 - 32 mmol/L 02/15/2025 11:45 AM EDT [facility] Anion Gap 18 >=0 02/15/2025 11:45 AM EDT [facility] Glucose 132(H) 60 - 99 mg/dL 02/15/2025 11:45 AM EDT [facility] Creatinine 0.18(L) 0.50 - 1.12 mg/dL 02/15/2025 11:45 AM EDT [facility] Calcium 9.9 8.4 - 10.4 mg/dL 02/15/2025 11:45 AM [facility] Total Protein 6.3(L) 6.6 - 8.7 g/dL 02/15/2025 11:45 AM [facility] Albumin 3.8 3.5 - 5.0 g/dL 02/15/2025 11:45 AM [facility] Bilirubin, Total 0.4 0.2 - 1.2 mg/dL 02/15/2025 11:45 AM [facility] Alkaline Phosphatase 109 40 - 129 U/L 02/15/2025 11:45 AM [facility] AST 25 0 - 33 U/L 02/15/2025 11:45 AM [facility] ALT 72(H) <=33 U/L 02/15/2025 11:45 AM [facility] BUN 31(H) 6 - 20 mg/dL 02/15/2025 11:45 AM [facility] eGFR >90 >=60 mL/min/1. 73m2 02/15/2025 11:45 AM [facility] Comment:The estimated glomer ular filtration [...] Globulin, Total 2.5 2.1 - 4.2 g/dL 02/15/2025 11:45 AM [facility] A/G Ratio 1.5 1.5 - 3.0 02/15/2025 11:45 AM [facility] Blood Structure of peripheral vein / Unknown Venipuncture / Unknown 02/15/2025 10:44 AM EDT 02/15/2025 10:44 AM EDT us Sulema Parmar MD LAB BLOOD ORDERABLES Final Res ult [facility] [address] [place] [address], documented in this encounter Visit Diagnoses Diagnosis No diagnosis Acute and chronic respiratory failure with hypoxia documented in this encounter Additional Health Concerns Infection Onset Date Last Indicated Resolved Time R/O C.diff 02/17/2025 02/17/2025 02/19/2025 1:05 AM EDT documented as of this encounter Care Teams Security Sales Consultant Relationship Specialty Start Date End Date Sunitha Rosales [address] [place] [address] PCP - General Family Medicine 03/02/25 documented as of this encounter
--- OUTSIDE RECORDS SUMMARY | 2025-06-13 10:28 | XMS_ITS | Encounter Summary ---
Author Organization [facility] Address [address] [place] [address] Care Team Providers Care Television Producer Name Role Phone Sunitha Rosales Primary Care Provider [phone] Encounter Details Date Type Department Care Team (Late st Contact Info) Description 02/28/2025 Lab Requisition [facility] Lab [address] [place] [address] Julia De La Garza MD [address] [place] [phone] No diagnosis; Acute and chronic respiratory failure [...] have money to get more. Patient declined [facility] Utilities Answer Date Recorded In the past 12 months has th [employer] electric, gas, oil, or water company threatened [...] of this encounter Procedures * Due to [facility] law, this organization might not be sharing negative HIV tests. Procedure Name Priority Date/Time Associated Diagnosis Comments CBC AUTO DIFFERENTIAL Routine 02/28/2025 9:02 AM EDT No diagnosis Acute and chronic respiratory failure with hypoxia (HCC) AMMONIA Routine 02/28/2025 9:02 AM EDT No diagnosis Acute and chronic respiratory failure with hypoxia (HCC) COMPREHENSIVE METABOLIC PANEL Routine 02/28/2025 9:02 AM EDT No diagnosis Acute and chronic respiratory failure with hypoxia (HCC) documented in this encounter Results * Due to [place] [employer] law, this organization might not be sharing negative HIV tests. * (ABNORMAL) CBC Auto Differential (02/28/2025 9:02 AM EDT) WBC 4.7(L) 4.8 - 10.8 10*3/uL 02/28/2025 9:39 AM EDT [facility] RBC 2.76(L) 4.20 - 5.40 10*6/uL 02/28/2025 9:39 AM EDT [facility] Hemoglobin 7.9(L) 11.7 - 15.5 g/dL 02/28/2025 9:39 AM EDT [facility] Hematocrit 24.1(L) 35.7 - 45.8 % 02/28/2025 9:39 AM EDT [facility] MCV 87.3 81.0 - 99.0 fL 02/28/2025 9:39 AM EDT [facility] MCH 28.6 26.0 - 34.0 pg 02/28/2025 9:39 AM EDT [facility] MCHC 32.8 31.0 - 36.0 g/dL 02/28/2025 9:39 AM EDT [facility] RDW 17.4(H) 12.0 - 15.0 % 02/28/2025 9:39 AM EDT [facility] RDW Standard Deviation 55.2(H) 36.4 - 46.3 fL 02/28/2025 9:39 AM EDT [facility] Platelets 229 140 - 440 10*3/uL 02/28/2025 9:39 AM EDT [facility] MPV 9.4 9.4 - 12.3 fL 02/28/2025 9:39 AM EDT [facility] Neutrophil % 65.1 50.0 - 75.0 % 02/28/2025 9:39 AM EDT [facility] Immature Grans % 0.6 0.0 - 0.9 % 02/28/2025 9:39 AM EDT [facility] Lymphocyte % 25.3 20.0 - 44.0 % 02/28/2025 9:39 AM EDT [facility] Monocyte % 4.4 0.0 - 14.0 % 02/28/2025 9:39 AM EDT [facility] Eosinophil % 4.2 0.0 - 5.0 % 02/28/2025 9:39 AM EDT [facility] Basophil % 0.4 0.0 - 2.0 % 02/28/2025 9:39 AM EDT [facility] Neutrophil # 3.08 1.80 - 7.70 10*3/uL 02/28/2025 9:39 AM EDT [facility] Immature Grans # 0.03 0.00 - 0.03 10*3/uL 02/28/2025 9:39 AM EDT [facility] Lymphocyte # 1.20 1.00 - 4.75 10*3/uL 02/28/2025 9:39 AM EDT [facility] Monocyte # 0.20 0.00 - 0.60 10*3/uL 02/28/2025 9:39 AM EDT [facility] Eosinophil # 0.20 0.00 - 0.80 10*3/uL 02/28/2025 9:39 AM EDT [facility] Basophil # <0.03 0.00 - 0.20 10*3/uL 02/28/2025 9:39 AM EDT [facility] nRBC % 0.0 0 - 0 /100 WBCs 02/28/2025 9:39 AM EDT [facility] nRBC # <0.01 0.00 - 0.13 10*3/uL 02/28/2025 9:39 AM EDT [facility] Blood Structure of peripheral vein / Unknown 02/28/2025 9:02 AM EDT 02/28/2025 9:02 AM EDT us Julia De La Garza MD LAB BLOOD ORDERABLES Final Res ult Performing Organization Address [facility]/ZIP Co de Phone Number [facility] [address] [address], [place] [phone] * Ammonia (02/28/2025 9:02 AM EDT) Ammonia 24 11 - 51 umol/L 02/28/2025 9:53 AM EDT [facility] Blood Structure of peripheral vein / Unknown 02/28/2025 9:02 AM EDT 02/28/2025 9:02 AM EDT us Julia De La Garza MD LAB BLOOD ORDERABLES Final Res ult Performing Organization Address [facility]/ZIP Co de Phone Number [facility] [address] [address], [place] [phone] * (ABNORMAL) Comprehensive Metabolic Panel (02/28/2025 9:02 AM EDT) NA 139 136 - 145 mmol/L 02/28/2025 10:00 AM EDT [facility] K 4.4 3.5 - 5.1 mmol/L 02/28/2025 10:00 AM EDT [facility] Cl 100 98 - 109 mmol/L 02/28/2025 10:00 AM EDT [facility] CO2 25 22 - 32 mmol/L 02/28/2025 10:00 AM EDT [facility] Anion Gap 18 >=0 02/28/2025 10:00 AM EDT [facility] Glucose 87 60 - 99 mg/dL 02/28/2025 10:00 AM EDT [facility] Creatinine 0.19(L) 0.50 - 1.12 mg/dL 02/28/2025 10:00 AM EDT [facility] Calcium 9.7 8.4 - 10.4 mg/dL 02/28/2025 10:00 AM [facility] Total Protein 6.1(L) 6.6 - 8.7 g/dL 02/28/2025 10:00 AM [facility] Albumin 3.8 3.5 - 5.0 g/dL 02/28/2025 10:00 AM [facility] Bilirubin, Total 0.5 0.2 - 1.2 mg/dL 02/28/2025 10:00 AM [facility] Alkaline Phosphatase 65 40 - 129 U/L 02/28/2025 10:00 AM [facility] AST 30 0 - 33 U/L 02/28/2025 10:00 AM [facility] ALT 39(H) <=33 U/L 02/28/2025 10:00 AM [facility] BUN 17 6 - 20 mg/dL 02/28/2025 10:00 AM [facility] eGFR >90 >=60 mL/min/1. 73m2 02/28/2025 10:00 AM T [facility] Comment:The estimated glomer ular filtration rate [...] in Diagnosing Kidney Disease . Globulin, Total 2.3 2.1 - 4.2 g/dL 02/28/2025 10:00 AM EDT [facility] A/G Ratio 1.7 1.5 - 3.0 02/28/2025 10:00 AM EDT [facility] Blood Structure of peripheral vein / Unknown 02/28/2025 9:02 AM EDT 02/28/2025 9:02 AM EDT us Julia De La Garza MD LAB BLOOD ORDERABLES Final Res ult Performing Organization Address City/State/[facility] Co de Phone Number [facility] [address] [place] [address], documented in this encounter Visit Diagnoses Diagnosis No diagnosis Acute and chronic respiratory failure with hypoxia documented in this encounter Care Teams Television Producer Relationship Specialty Start Date End Date Sunitha Rosales [address] [place] [address] PCP - General Family Medicine 03/02/25 documented as of this encounter
--- OUTSIDE RECORDS SUMMARY | 2025-06-13 10:28 | XMS_ITS | Encounter Summary ---
Demographics Address [address] [facility] [address] [place] [address] Home Phone Work Phone Mobile Phone Home Phone Home Phone Mobile Phone Preferred Language en Marital Status Unknown Congregational Affiliation Unknown Race Unknown Ethnic Group Unknown Author Organization [facility] Address [address] [place] [address] Care Team Providers Care Topstitcher Zigzag Name Role Phone Venu Morales MD Primary Care Provider [phone] Encounter Details Date Type Department Care Team (Late st Contact Info) Description 08/09/2024 Lab Requisition [facility] [address] [place] [address] Venu Morales MD [address] [place] [address] [address] [place], [phone] Type 2 diabetes mellitus without complications [...] Associated Diagnosis Comments COMPLETE BLOOD COUNT Routine 08/10/2024 7:26 AM EST Type 2 diabetes mellitus without complications (CMS/HCC) documented in this encounter Results * (ABNORMAL) Complete blood count (08/10/2024 7:26 AM EST) WBC 6.3 4.8 - 10.8 K/mcL LAB HEMETOLOGY METHOD 08/10/2024 10:36 AM EST [facility] RBC 4.00 3.80 - 4.80 M/mcL LAB HEMETOLOGY METHOD 08/10/2024 10:36 AM [facility] Hemoglobin 10.9(L) 11.5 - 16.0 g/dL LAB HEMETOLOGY METHOD 08/10/2024 10:36 AM [facility] Hematocrit 34.4(L) 35.0 - 47.0 % LAB HEMETOLOGY METHOD 08/10/2024 10:36 AM [facility] MCV 85.6 79.0 - 98.0 FL LAB HEMETOLOGY METHOD 08/10/2024 10:36 AM [facility] MCH 27.1 27.0 - 32.0 pcg LAB HEMETOLOGY METHOD 08/10/2024 10:36 AM [facility] MCHC 31.7(L) 32.0 - 37.0 g/dL LAB HEMETOLOGY METHOD 08/10/2024 10:36 AM [facility] RDW 13.4 11.0 - 15.0 % LAB HEMETOLOGY METHOD 08/10/2024 10:36 AM [facility] Platelets 279 130 - 400 K/mcL LAB HEMETOLOGY METHOD 08/10/2024 10:36 AM [facility] MPV 9.9 7.0 - 11.0 FL LAB HEMETOLOGY METHOD 08/10/2024 10:36 AM [facility] NRBC 0.0 <1.0 % LAB HEMETOLOGY METHOD 08/10/2024 10:36 AM [facility] NRBC Absolute 0.00 <0.10 K/mcL LAB HEMETOLOGY METHOD 08/10/2024 10:36 AM [facility] Blood Venous blood specimen / Unknown Venipuncture / Unknown 08/10/2024 7:26 AM EST 08/10/2024 9:28 AM EST Venu Morales MD LAB BLOOD ORDERABLES Final Resul t [facility] [address] [place] [address], documented in this encounter Visit Diagnoses Diagnosis Type 2 diabetes mellitus without complications (CMS/HCC V24, CMS/HCC V28) documented in this encounter Care Teams Topstitcher Zigzag Relationship Specialty Start Date End Date Venu Morales MD [address] [place] [address] [address] [place], [phone] PCP - General Family Medicine 07/25/24 documented as of this encounter
--- OUTSIDE RECORDS SUMMARY | 2025-06-13 10:28 | XMS_ITS | Encounter Summary ---
Demographics Address [address] [place] [address] Home Phone Work Phone Mobile Phone Home Phone Home Phone Mobile Phone Preferred Language en Marital Status Unknown Pentecostalism Affiliation Unknown Race Unknown Ethnic Group Unknown Author Organization [facility] Address [address] [place] [address] Care Team Providers Care Radiochemical Technician Name Role Phone eVnu Morales MD Primary Care Provider Encounter Details Date Type Department Care Team (Late st Contact Info) Description 08/15/2024 Lab Requisition [facility] - Main Lab [address] [place] [address] Venu Morales MD [address] [place] [address] [address] [place], [phone] Chronic kidney disease, unspecified Social History [...] Associated Diagnosis Comments COMPLETE BLOOD COUNT Routine 08/16/2024 5:07 AM EST Chronic kidney disease, unspecified BASIC METABOLIC PANEL Routine 08/16/2024 5:07 AM EST Chronic kidney disease, unspecified documented in this encounter Results * (ABNORMAL) Basic metabolic panel (08/16/2024 5:07 AM EST) Sodium 135 133 - 145 mmol/L LAB CHEMISTRY METHOD 08/16/2024 10:43 AM EST [facility] Potassium 3.0(L) 3.5 - 5.5 mmol/L LAB CHEMISTRY METHOD 08/16/2024 10:43 AM [facility] Chloride 99 96 - 110 mmol/L LAB CHEMISTRY METHOD 08/16/2024 10:43 AM [facility] CO2 28 21 - 32 mmol/L LAB CHEMISTRY METHOD 08/16/2024 10:43 AM [facility] Anion Gap 8 3 - 11 LAB CHEMISTRY METHOD 08/16/2024 10:43 AM [facility] Glucose 107(H) 70 - 100 mg/dL LAB CHEMISTRY METHOD 08/16/2024 10:43 AM [facility] BUN 17 5 - 25 mg/dL LAB CHEMISTRY METHOD 08/16/2024 10:43 AM [facility] Creatinine 0.51 0.50 - 1.10 mg/dL LAB CHEMISTRY METHOD 08/16/2024 10:43 AM [facility] eGFR 117 >=60 mL/min/1. 73m2 LAB CHEMISTRY METHOD 08/16/2024 10:43 AM [facility] Comment:Calculation based on the Chronic Kidney Disease Epidemiology Collaboration (CKD-EPI) equation refit without adjustment for race. BUN/Creatinine Ratio 33.3 LAB CHEMISTRY METHOD 08/16/2024 10:43 AM [facility] Calcium 9.2 8.5 - 10.5 mg/dL LAB CHEMISTRY METHOD 08/16/2024 10:43 AM [facility] Blood Venous blood specimen / Unknown Venipuncture / Unknown 08/16/2024 5:07 AM EST 08/16/2024 10:01 AM EST us Venu Morales MD LAB BLOOD ORDERABLES Final Resul t [facility] [address] [place] [address], * (ABNORMAL) Complete blood count (08/16/2024 5:07 AM EST) [facility] WBC 5.7 4.8 - 10.8 K/mcL LAB HEMETOLOGY METHOD 08/16/2024 10:56 AM [facility] RBC 4.00 3.80 - 4.80 M/mcL LAB HEMETOLOGY METHOD 08/16/2024 10:56 AM [facility] Hemoglobin 10.9(L) 11.5 - 16.0 g/dL LAB HEMETOLOGY METHOD 08/16/2024 10:56 AM [facility] Hematocrit 33.6(L) 35.0 - 47.0 % LAB HEMETOLOGY METHOD 08/16/2024 10:56 AM [facility] MCV 85.1 79.0 - 98.0 FL LAB HEMETOLOGY METHOD 08/16/2024 10:56 AM [facility] MCH 27.6 27.0 - 32.0 pcg LAB HEMETOLOGY METHOD 08/16/2024 10:56 AM [facility] MCHC 32.4 32.0 - 37.0 g/dL LAB HEMETOLOGY METHOD 08/16/2024 10:56 AM [facility] RDW 14.1 11.0 - 15.0 % LAB HEMETOLOGY METHOD 08/16/2024 10:56 AM [facility] Platelets 252 130 - 400 K/mcL LAB HEMETOLOGY METHOD 08/16/2024 10:56 AM [facility] MPV 10.0 7.0 - 11.0 FL LAB HEMETOLOGY METHOD 08/16/2024 10:56 AM [facility] NRBC 0.0 <1.0 % LAB HEMETOLOGY METHOD 08/16/2024 10:56 AM [facility] NRBC Absolute 0.00 <0.10 K/mcL LAB HEMETOLOGY METHOD 08/16/2024 10:56 AM EST [facility] Blood Venous blood specimen / Unknown Venipuncture / Unknown 08/16/2024 5:07 AM EST 08/16/2024 10:01 AM EST us Venu Morales MD LAB BLOOD ORDERABLES Final Resul t [facility] [address] [place] [address], documented in this encounter Visit Diagnoses Diagnosis Chronic kidney disease, unspecified documented in this encounter Care Teams Radiochemical Technician Relationship Specialty Start Date End Date Venu Morales MD [address] [place] [address], [phone] PCP - General Family Medicine 07/25/24 documented as of this encounter
--- OUTSIDE RECORDS SUMMARY | 2025-06-13 10:28 | XMS_ITS | Encounter Summary ---
Author Organization [facility] Address [address] [place] [address] Care Team Providers Care Major Case Detective Name Role Phone Sunitha Rosales Primary Care Provider Encounter Details Date Type Department Care Team (Late st Contact Info) Description 02/16/2025 Lab Requisition [facility] [address] [place] [address] Sulema Parmar MD [address] [place] [id number] No diagnosis; Acute and chronic respiratory failure [...] have money to get more. Patient declined [facility] Utilities Answer Date Recorded In the [...] of this encounter Procedures * Due to [facility] law, this organization might not be sharing negative HIV tests. Procedure Name Priority Date/Time Associated Diagnosis Comments MICROSCOPIC URINALYSIS ONLY Routine 02/16/2025 6:33 PM EDT No diagnosis Acute and chronic respiratory failure with hypoxia (HCC) URINALYSIS W/REFLEX TO MICROSCOPIC (NO CULTURE) Routine 02/16/2025 6:33 PM EDT No diagnosis Acute and chronic respiratory failure with hypoxia (HCC) [id number] STAT 02/16/2025 6:33 PM EDT No diagnosis Acute and chronic respiratory failure with hypoxia (HCC) CBC AUTO DIFFERENTIAL Routine 02/16/2025 6:33 PM EDT No diagnosis Acute and chronic respiratory failure with hypoxia (HCC) URINE CULTURE, ROUTINE Routine 02/16/2025 6:33 PM EDT No diagnosis Acute and chronic respiratory failure with hypoxia (HCC) documented in this encounter Results * Due to [place] [employer] law, this organization might not be sharing negative HIV tests. * (ABNORMAL) Microscopic Urinalysis Only (02/16/2025 6:33 PM EDT) RBC, Urine None Seen None Seen, 0-2 /HPF 02/16/2025 7:09 PM EDT [facility] WBC, Urine 5-10(A) None Seen, 0-2 /HPF 02/16/2025 7:09 PM EDT [facility] Squamous Epithelial Cells, Urine 3-5 /HPF 02/16/2025 7:09 PM EDT [facility] Bacteria, Urine Large(A) None Seen /HPF 02/16/2025 7:09 PM EDT [facility] Urine Urine specimen collection, clean catch / Unknown 02/16/2025 6:33 PM EDT 02/16/2025 6:33 PM EDT us Sulema Parmar MD LAB URINE ORDERABLES Final Res ult Performing Organization Address [facility]/ZIP Co de Phone Number [facility] [address] [address], [place] [phone] * Urine Culture, Routine (02/16/2025 6:33 PM EDT) Urine Culture >100,000 CFU/mL mixed culture; no further workup is indicated. Clinical correlation is recommended. [place] MANUAL 02/18/2025 9:02 AM EDT [facility] Urine Urine specimen collection, clean catch / Unknown 02/16/2025 6:33 PM EDT 02/16/2025 6:33 PM EDT us Sulema Parmar MD LAB MICROBIOLOGY - GENERAL ORD ERABLES Final Result Performing Organization Address [facility] Co de Phone Number [facility] [address] [address], [place] [phone] * (ABNORMAL) Urinalysis W/Reflex to Microscopic (No Culture) (02/16/2025 6:33 PM EDT) Color, Urine Dark Yellow Yellow 02/16/2025 6:40 PM EDT [facility] Clarity, Urine Clear Clear 02/16/2025 6:40 PM EDT [facility] Specific [place], Urine 1.025 1.005 - 1.030 02/16/2025 6:40 PM EDT [facility] pH, Urine 5.5 5.0 - 8.0 02/16/2025 6:40 PM EDT [facility] Protein, Urine Negative Negative mg/dL 02/16/2025 6:40 PM EDT [facility] Glucose, Urine Negative Negative mg/dL 02/16/2025 6:40 PM EDT [facility] Ketones, Urine Negative Negative mg/dL 02/16/2025 6:40 PM EDT [facility] Bilirubin, Urine Negative Negative 02/16/2025 6:40 PM EDT [facility] Blood, Urine Negative Negative 02/16/2025 6:40 PM EDT [facility] Nitrite, Urine Positive(A) Negative 02/16/2025 6:40 PM EDT [facility] Urobilinogen, Urine 1.0 0.2 - 1.0 E.U./dL 02/16/2025 6:40 PM EDT [facility] Leukocyte Esterase, Urine Trace(A) Negative 02/16/2025 6:40 PM EDT [facility] Urine Urine specimen collection, clean catch / Unknown 02/16/2025 6:33 PM EDT 02/16/2025 6:33 PM EDT us Sulema Parmar MD LAB URINE ORDERABLES Final Res ult [facility] [address] [place] [address] [address] [place] [address], * (ABNORMAL) Procalcitonin (02/16/2025 6:33 PM EDT) Procalcitonin 0.83(H) <0.20 ng/mL 02/19/2025 5:42 PM EDT [facility] [id number] Comment: Procalcitonin levels above 2.00 ng/mL on the first day of ICU admission represent a high risk for progression to severe sepsis and/or septic shock. Procalcitonin Comment See Comments 02/19/2025 5:42 PM EDT [facility]91 Comment: Interpretation Guidelines Diagnosis of systemic bacterial infection/sepsis <0.5 ng/mL: Low risk for sepsis and/or septic shock, however levels <0.5 do not exclude local infection or a systemic infection in its initial stages (<6 hours). 0.5 to 2.0 ng/mL: Interpret in conjunction with patient history. It is recommended to retest PCT within 6-24 hours if any concentrations <2 ng/mL are obtained. >2.0 ng/mL: High risk of severe sepsis and/or septic shock Procalcitonin levels should be evaluated in context of all laboratory findings and the total clinical status of the patient. Blood Structure of peripheral vein / Unknown 02/16/2025 6:33 PM EDT 02/16/2025 6:33 PM EDT Narrative [facility] - 02/19/2025 5:42 PM EDT [facility] Received Date: us Sulema Parmar MD LAB BLOOD ORDERABLES Final Res ult [address], [place] [address], [place] [phone] [place] [address], * (ABNORMAL) CBC Auto Differential (02/16/2025 6:33 PM EDT) WBC 21.0(H) 4.8 - 10.8 10*3/uL 02/16/2025 6:37 PM EDT [facility] RBC 4.41 4.20 - 5.40 10*6/uL 02/16/2025 6:37 PM EDT [facility] Hemoglobin 12.6 11.7 - 15.5 g/dL 02/16/2025 6:37 PM EDT [facility] Hematocrit 37.1 35.7 - 45.8 % 02/16/2025 6:37 PM EDT [facility] MCV 84.1 81.0 - 99.0 fL 02/16/2025 6:37 PM EDT [facility] MCH 28.6 26.0 - 34.0 pg 02/16/2025 6:37 PM EDT [facility] MCHC 34.0 31.0 - 36.0 g/dL 02/16/2025 6:37 PM EDT [facility] RDW 15.3(H) 12.0 - 15.0 % 02/16/2025 6:37 PM EDT [facility] RDW Standard Deviation 46.6(H) 36.4 - 46.3 fL 02/16/2025 6:37 PM EDT [facility] Platelets 295 140 - 440 10*3/uL 02/16/2025 6:37 PM EDT [facility] MPV 10.2 9.4 - 12.3 fL 02/16/2025 6:37 PM EDT [facility] Neutrophil % 86.5(H) 50.0 - 75.0 % 02/16/2025 6:37 PM EDT [facility] Immature Grans % 1.0(H) 0.0 - 0.9 % 02/16/2025 6:37 PM EDT [facility] Lymphocyte % 7.1(L) 20.0 - 44.0 % 02/16/2025 6:37 PM EDT [facility] Monocyte % 5.2 0.0 - 14.0 % 02/16/2025 6:37 PM EDT [facility] Eosinophil % 0.0 0.0 - 5.0 % 02/16/2025 6:37 PM EDT [facility] Basophil % 0.2 0.0 - 2.0 % 02/16/2025 6:37 PM EDT [facility] Neutrophil # 18.17(H) 1.80 - 7.70 10*3/uL 02/16/2025 6:37 PM EDT [facility] Immature Grans # 0.20(H) 0.00 - 0.03 10*3/uL 02/16/2025 6:37 PM EDT [facility] Lymphocyte # 1.50 1.00 - 4.75 10*3/uL 02/16/2025 6:37 PM EDT [facility] Monocyte # 1.10(H) 0.00 - 0.60 10*3/uL 02/16/2025 6:37 PM EDT [facility] Eosinophil # <0.03 0.00 - 0.80 10*3/uL 02/16/2025 6:37 PM EDT [facility] Basophil # 0.10 0.00 - 0.20 10*3/uL 02/16/2025 6:37 PM EDT [facility] nRBC % 0.0 0 - 0 /100 WBCs 02/16/2025 6:37 PM EDT [facility] nRBC # <0.01 0.00 - 0.13 10*3/uL 02/16/2025 6:37 PM EDT [facility] Blood Structure of peripheral vein / Unknown 02/16/2025 6:33 PM EDT 02/16/2025 6:33 PM EDT us Sulema Parmar MD LAB BLOOD ORDERABLES Final Res ult Performing Organization Address City/State/[facility] Co de Phone Number [facility] [address] [place] [address], documented in this encounter Visit Diagnoses Diagnosis No diagnosis Acute and chronic respiratory failure with hypoxia documented in this encounter Additional Health Concerns Infection Onset Date Last Indicated Resolved Time R/O C.diff 02/17/2025 02/17/2025 02/19/2025 1:05 AM EDT documented as of this encounter Care Teams Major Case Detective Relationship Specialty Start Date End Date Sunitha Rosales [address] [place] [id number] PCP - General Family Medicine 03/02/25 documented as of this encounter
--- OUTSIDE RECORDS SUMMARY | 2025-06-13 10:29 | XMS_ITS | Encounter Summary ---
Author Organization [facility] Address [address] [place] [address] Care Team Providers Care Eggs Inspector Name Role Phone Sunitha Rosales Primary Care Provider Encounter Details Date Type Department Care Team (Late st Contact Info) Description 04/09/2025 Lab Requisition [facility] [address] [place] [address] [place] Reynolds PA [address] [place] [address] No diagnosis; Respiratory failure, unspecified, unspecified whether with hypoxia or hypercapnia Social History Tobacco Use Types Packs/Day Years [...] have money to get more. Patient declined [facility] Utilities Answer Date Recorded In [...] of this encounter Procedures * Due to [facility] law, this organization might not be sharing negative HIV tests. Procedure Name Priority Date/Time Associated Diagnosis Comments CBC AUTO DIFFERENTIAL Routine 04/09/2025 2:13 PM EDT No diagnosis Respiratory failure, unspecified, unspecified whether with hypoxia or hypercapnia COMPREHENSIVE METABOLIC PANEL Routine 04/09/2025 2:13 PM EDT No diagnosis Respiratory failure, unspecified, unspecified whether with hypoxia or hypercapnia documented in this encounter Results * Due to [facility] law, this organization might not be sharing negative HIV tests. * (ABNORMAL) CBC Auto Differential (04/09/2025 2:13 PM EDT) WBC 6.2 4.8 - 10.8 10*3/uL 04/09/2025 2:37 PM EDT [facility] RBC 3.62(L) 4.20 - 5.40 10*6/uL 04/09/2025 2:37 PM EDT [facility] Hemoglobin 10.0(L) 11.7 - 15.5 g/dL 04/09/2025 2:37 PM EDT [facility] Hematocrit 30.9(L) 35.7 - 45.8 % 04/09/2025 2:37 PM EDT [facility] MCV 85.4 81.0 - 99.0 fL 04/09/2025 2:37 PM EDT [facility] MCH 27.6 26.0 - 34.0 pg 04/09/2025 2:37 PM EDT [facility] MCHC 32.4 31.0 - 36.0 g/dL 04/09/2025 2:37 PM EDT [facility] RDW 14.7 12.0 - 15.0 % 04/09/2025 2:37 PM EDT [facility] RDW Standard Deviation 45.8 36.4 - 46.3 fL 04/09/2025 2:37 PM EDT [facility] Platelets 313 140 - 440 10*3/uL 04/09/2025 2:37 PM EDT [facility] MPV 9.6 9.4 - 12.3 fL 04/09/2025 2:37 PM EDT [facility] Neutrophil % 71.1 50.0 - 75.0 % 04/09/2025 2:37 PM EDT [facility] Immature Grans % 0.2 0.0 - 0.9 % 04/09/2025 2:37 PM EDT [facility] Lymphocyte % 20.8 20.0 - 44.0 % 04/09/2025 2:37 PM EDT [facility] Monocyte % 5.3 0.0 - 14.0 % 04/09/2025 2:37 PM EDT [facility] Eosinophil % 2.3 0.0 - 5.0 % 04/09/2025 2:37 PM EDT [facility] Basophil % 0.3 0.0 - 2.0 % 04/09/2025 2:37 PM EDT [facility] Neutrophil # 4.40 1.80 - 7.70 10*3/uL 04/09/2025 2:37 PM EDT [facility] Immature Grans # <0.03 0.00 - 0.03 10*3/uL 04/09/2025 2:37 PM EDT [facility] Lymphocyte # 1.30 1.00 - 4.75 10*3/uL 04/09/2025 2:37 PM EDT [facility] Monocyte # 0.30 0.00 - 0.60 10*3/uL 04/09/2025 2:37 PM EDT [facility] Eosinophil # 0.10 0.00 - 0.80 10*3/uL 04/09/2025 2:37 PM EDT [facility] Basophil # <0.03 0.00 - 0.20 10*3/uL 04/09/2025 2:37 PM EDT [facility] nRBC % 0.0 0 - 0 /100 WBCs 04/09/2025 2:37 PM EDT [facility] nRBC # <0.01 0.00 - 0.13 10*3/uL 04/09/2025 2:37 PM EDT [facility] Blood Structure of peripheral vein / Unknown 04/09/2025 2:13 PM EDT 04/09/2025 2:13 PM EDT [place] GARCIA LAB BLOOD ORDERABLES Final R esult [facility] [address] [facility] [address] [place] [address], [place] [phone] * (ABNORMAL) Comprehensive Metabolic Panel (04/09/2025 2:13 PM EDT) NA 141 136 - 145 mmol/L 04/09/2025 3:01 PM EDT [facility] K 4.4 3.5 - 5.1 mmol/L 04/09/2025 3:01 PM EDT [facility] Cl 99 97 - 110 mmol/L 04/09/2025 3:01 PM EDT [facility] CO2 27 22 - 32 mmol/L 04/09/2025 3:01 PM EDT [facility] Anion Gap 19 >=0 04/09/2025 3:01 PM EDT [facility] Glucose 86 60 - 99 mg/dL 04/09/2025 3:01 PM EDT [facility] Creatinine 0.21(L) 0.50 - 1.12 mg/dL 04/09/2025 3:01 PM EDT [facility] Calcium 10.1 8.4 - 10.4 mg/dL 04/09/2025 3:01 PM EDT [facility] Total Protein 7.1 6.6 - 8.7 g/dL 04/09/2025 3:01 PM EDT [facility] Albumin 4.0 3.5 - 5.0 g/dL 04/09/2025 3:01 PM EDT [facility] Bilirubin, Total 0.3 0.2 - 1.2 mg/dL 04/09/2025 3:01 PM EDT [facility] Alkaline Phosphatase 66 40 - 129 U/L 04/09/2025 3:01 PM EDT [facility] AST 17 0 - 33 U/L 04/09/2025 3:01 PM EDT [facility] ALT 15 <=33 U/L 04/09/2025 3:01 PM EDT [facility] BUN 24(H) 6 - 20 mg/dL 04/09/2025 3:01 PM EDT [facility] eGFR >90 >=60 mL/min/1. 73m2 04/09/2025 3:01 PM EDT [facility] Comment:The estimated glomer ular [...] in Diagnosing Kidney Disease . Globulin, Total 3.1 2.1 - 4.2 g/dL 04/09/2025 3:01 PM EDT [facility] A/G Ratio 1.3(L) 1.5 - 3.0 04/09/2025 3:01 PM EDT [facility] Blood Structure of peripheral vein / Unknown Venipuncture / Unknown 04/09/2025 2:13 PM EDT 04/09/2025 2:13 PM EDT us [place] GARCIA LAB BLOOD ORDERABLES Final R esult [facility] [address] [place] [address], documented in this encounter Visit Diagnoses Diagnosis No diagnosis Respiratory failure, unspecified, unspecified whether with hypoxia or hypercapnia documented in this encounter Care Teams Eggs Inspector Relationship Specialty Start Date End Date Sunitha Rosales [address] [place] [id number] PCP - General Family Medicine 03/02/25 documented as of this encounter
--- OUTSIDE RECORDS SUMMARY | 2025-06-13 10:29 | XMS_ITS | Clinical Summary ---
Author Organization [facility] Address [address] [place] [address] Care Team Providers Care Lvn Lpn Name Role Phone Sunitha Rosales Primary Care Provider [phone] Allergies Active Allergy Reactions Criticality Noted Date Comments Metronidazole Itching 02/17/2025 Reports hx itching in past but tolerated flagyl in ED and in ICU without itching on 02/17/25 Risperidone Itching 02/17/2025 Medications omeprazole 10 mg/5 mL suspension Take 20 mg by gastric tube once a day. Active calcium carbonate (TUMS) 200 mg calcium (500 mg) chewable tablet Chew and swallow 1 tablet by mouth every 4 hours as needed for indigestion or heartburn. Active bisacodyL (DULCOLAX) 10 mg suppository Insert 10 mg into the rectum daily as needed for constipation. Active docusate (COLACE) 100 mg/10 mL liquid Take 100 mg by mouth once a day. Active buPROPion (WELLBUTRIN) 75 mg tablet 75 mg by gastric tube route 2 times a day. Active acetaminophen (TYLENOL) 325 mg tablet Take 975 mg by mouth every 8 hours as needed for pain. Active atorvastatin (LIPITOR) 40 mg tablet 40 mg by gastric tube route once a day. Active cholecalciferol (VITAMIN D3) 25 mcg (1,000 unit) tablet 2,000 Units by gastric tube route once a day. Active hydrOXYzine HCL (ATARAX) 25 mg tablet Take 25 mg by mouth every 12 hours as needed for itching. Active ibuprofen (MOTRIN) 400 mg tablet Take 400 mg by mouth every 6 hours as needed for pain. Active acidophilus-pect in, citrus 100 million cell-10 mg capsule 1 tablet by gastric tube route daily. Active levothyroxine (SYNTHROID, LEVOTHROID) 88 mcg tablet 88 mcg by gastric tube route daily. Active loratadine (CLARITIN) 10 mg tablet Take 10 mg by mouth nightly as needed for seasonal allergies. Active magnesium hydroxide (MILK OF MAGNESIA) 400 mg/5 mL suspension Take 2,400 mg by mouth daily as needed for constipation. Active riboflavin, vitamin B2, 100 mg capsule 200 mg by gastric tube route 2 times a day. Active traZODone (DESYREL) 50 mg tablet Take 50 mg by mouth nightly. Active albuterol 2.5 mg/3 mL (0.083%) nebulizer solution Inhale 1 vial (2.5 mg total) via nebulizer every 6 hours as needed for wheezing or shortness of breath. 5 Active amino acids-protein hydrolysate (PROSOURCE TF20) 20 gram-80 kcal/60 mL liquid in packet liquid 60 mL by gastric tube route once a day. 5 Active banana qxuopw-DTE-zqeiv (BANATROL TF) 5 gram-45 kcal/60 mL liquid in packet liquid 60 mL by gastric tube route 2 times a day. 5 Active enoxaparin (LOVENOX) 40 mg/0.4 mL subcutaneous injection Inject 0.4 mL (40 mg total) under the skin daily. 5 Active lidocaine (LIDODERM) 5% patch Apply 2 patches topically to the affected area once a day. Remove and discard patch within 12 hours or as directed. 5 Active LORazepam (ATIVAN) 1 mg tablet 1 tablet (1 mg total) by gastric tube route every 4 hours as needed for anxiety. 5 Active melatonin 3 mg tablet Take 3 tablets (9 mg total) by mouth nightly. 5 Active miconazole 2% powder Apply topically to the affected area 2 times a day as needed for itching. 5 Active midodrine (PROAMATINE) 5 mg tablet Take 1 tablet (5 mg total) by mouth every 8 hours. 5 Active nystatin (MYCOSTATIN) 100,000 unit/mL suspension Take 5 mL (500,000 Units total) by mouth 4 times a day. Active riluzole (RILUTEK) 50 mg tablet Take 1 tablet (50 mg total) by mouth every 12 hours. Active simethicone (MYLICON) 80 mg chewable tablet Chew and swallow 1 tablet (80 mg total) by mouth 4 times a day as needed for flatulence. Active Active Problems Problem Noted Date Diagnosed Date ALS (amyotrophic lateral sclerosis) 02/25/2025 Resolved Problems Problem Noted Date Diagnosed Date Resolved Date Septic shock 02/17/2025 02/27/2025 Acute on chronic respiratory failure with hypoxia and hypercapnia 02/17/2025 02/27/2025 Pneumonia 02/17/2025 02/27/2025 Proctocolitis 02/17/2025 02/27/2025 Leukocytosis 02/17/2025 02/27/2025 Hyperglycemia 02/17/2025 02/27/2025 Acute kidney injury 02/17/2025 02/28/20 Elevated troponin 02/17/2025 02/27/2025 Encounters Date Type Department Care Team Description 04/16/2025 Telephone [facility] [address] [place] [address] Telephone Intake, Staff 04/12/2025 Telephone [facility] [address] [place] [address] Telephone Intake, Staff 04/09/2025 Lab Requisition [facility] [address] [place] [address] Gary Reynolds PA No diagnosis; Respiratory failure, unspecified, unspecified whether with hypoxia or hypercapnia 04/02/2025 Lab Requisition [facility] [address] [place] [id number] Gary Reynolds PA No diagnosis; Acute and chronic respiratory failure with hypoxia 03/26/2025 Lab Requisition [facility] [address] [place] [address] Gary Reynolds PA No diagnosis; Respiratory failure, unspecified, unspecified whether with hypoxia or hypercapnia 03/19/2025 Lab Requisition [facility] [address] [place] [address] Gary Reynolds PA No diagnosis; Respiratory failure, unspecified, unspecified whether with hypoxia or hypercapnia (HCC) from Last 3 Months Family History Medical History Relation Name Comments Dementia Mother Relation Name Status Comments Mother Social History Tobacco Use Types Packs/Day Years Used Date Smoking Tobacco: Never Smokeless Tobacco: Never Tobacco Cessation:Counseling Given: No Hunger Vital Sign Answer Date Recorded Within the past 12 months, y ou worried that your food would run out before you got the money to buy more. Patient declined Within the past 12 months, t he food you bought just didn't last and you didn't have money to get more. Patient declined [facility] Utilities Answer Date Recorded In the past 12 months has [employer] electric, gas, oil, or water company threatened [...] Sign Reading Time Taken Comments Blood Pressure 119/84 02/27/2025 3:00 PM EDT Pulse 104 02/27/2025 3:00 PM EDT Temperature 37 C (98.6 F) 02/27/2025 12:00 PM EDT Respiratory Rate 17 02/27/2025 3:00 PM EDT Oxygen Saturation 100% 02/27/2025 3:00 PM EDT Inhaled Oxygen Concentration - - Weight 95.6 kg (210 lb 12.2 oz) 02/27/2025 5:38 AM EDT Height 162.2 cm (5' 3.86 ) 02/27/2025 1 2:26 PM EDT Body Mass Index 36.34 02/27/2025 5:38 AM EDT Plan of Treatment Health Maintenance Due Date Last Done Comments Cervical Cancer Screening 1978 Cologuard 1978 Colonoscopy 1978 HPV and Pap Smear 1978 Hepatitis C Screening 1978 Pap Smear 1978 Sigmoidoscopy 1978 Ophthalmology Exam 02/13/1988 Urine Microalbumin 02/13/1988 Mammogram 12/17/2021 12/18/2019, 09/19, 10/05/2017 Alcohol/Substance Use Screening 06/21/2024 Depression Screening and Follow-Up 06/21/2024 Social Drivers of Health Carly ual Screening 06/21/2024 Influenza Vaccine (#1) 2025 , 05/05/2023, 03/23/2022, Additional history exists COVID-19 Vaccine (2024-2 6 season) 2025 09/11/2024, 04/21/2021, 09/25/2020 Hemoglobin A1C 08/18/2025 02/15/2025, 08/20, 01/19/2023 Colon Cancer Screening 11/14/2025 FOBT / Fit Test 11/14/2025 11/14/2024 Basic Metabolic Panel 04/09/2026 04/09/2025 , 04/02/2025, 03/26/2025, Additional history exists DTaP,Tdap,and Td Vaccines (9 - Td or Tdap) 10/24/2027 10/23/2017, 08/03/2016, 02/22/2009, Additional history exists Hepatitis B Vaccines Completed 05/07/2008, 07/25/2007, 06/24/2007 HIV Screening Completed 05/01/2021, 05/01/2021 Pneumococcal Vaccine: Pediat fredy (0-5 Years) and At-Risk Patients (6-50 Years) Completed 05/05/2023 Diabetes Screening Discontinued 04/09/2025, 1 , 03/26/2025, Additional history exists Procedures * Due to [place] state law, this organization might not be sharing negative HIV tests. Procedure Name Priority Date/Time Associated Diagnosis Comments CBC AUTO DIFFERENTIAL Routine 04/09/2025 2:13 PM EDT No diagnosis Respiratory failure, unspecified, unspecified whether with hypoxia or hypercapnia COMPREHENSIVE METABOLIC PANEL Routine 04/09/2025 2:13 PM EDT No diagnosis Respiratory failure, unspecified, unspecified whether with hypoxia or hypercapnia CBC AUTO DIFFERENTIAL Routine 04/02/2025 11:34 AM EDT No diagnosis Acute and chronic respiratory failure with hypoxia COMPREHENSIVE METABOLIC PANEL Routine 04/02/2025 11:34 AM EDT No diagnosis Acute and chronic respiratory failure with hypoxia CBC AUTO DIFFERENTIAL Routine 03/26/2025 12:44 PM EDT No diagnosis Respiratory failure, unspecified, unspecified whether with hypoxia or hypercapnia COMPREHENSIVE METABOLIC PANEL Routine 03/26/2025 12:44 PM EDT No diagnosis Respiratory failure, unspecified, unspecified whether with hypoxia or hypercapnia CBC AUTO DIFFERENTIAL Routine 03/19/2025 12:20 PM EDT No diagnosis Respiratory failure, unspecified, unspecified whether with hypoxia or hypercapnia COMPREHENSIVE METABOLIC PANEL Routine 03/19/2025 12:20 PM EDT No diagnosis Respiratory failure, unspecified, unspecified whether with hypoxia or hypercapnia HEMOGLOBIN A1C Routine 02/15/2025 10:44 AM EDT No diagnosis Acute and chronic respiratory failure with hypoxia (HCC) from Last 3 Months or Most Recently Relevant to Health Maintenance Results * Due to [place] state law, this organization might not be sharing negative HIV tests. * (ABNORMAL) CBC Auto Differential (04/09/2025 2:13 PM EDT) Only the most recent of4 resultswithin the time period is included. WBC 6.2 4.8 - 10.8 10*3/uL 04/09/2025 2:37 PM EDT [facility] RBC 3.62(L) 4.20 - 5.40 10*6/uL 04/09/2025 2:37 PM EDT [facility] Hemoglobin 10.0(L) 11.7 - 15.5 g/dL 04/09/2025 2:37 PM EDT [facility] Hematocrit 30.9(L) 35.7 - 45.8 % 04/09/2025 2:37 PM EDT [facility] MCV 85.4 81.0 - 99.0 fL 04/09/2025 2:37 PM EDT [facility] MCH 27.6 26.0 - 34.0 pg 04/09/2025 2:37 PM EDT [facility] MCHC 32.4 31.0 - 36.0 g/dL 04/09/2025 2:37 PM EDT [facility] RDW 14.7 12.0 - 15.0 % 04/09/2025 2:37 PM EDT [facility] RDW Standard Deviation 45.8 36.4 - 46.3 fL 04/09/2025 2:37 PM EDT [facility] Platelets 313 140 - 440 10*3/uL 04/09/2025 2:37 PM EDT [facility] MPV 9.6 9.4 - 12.3 fL 04/09/2025 2:37 PM EDT [facility] Neutrophil % 71.1 50.0 - 75.0 % 04/09/2025 2:37 PM EDT [facility] Immature Grans % 0.2 0.0 - 0.9 % 04/09/2025 2:37 PM EDT [facility] Lymphocyte % 20.8 20.0 - 44.0 % 04/09/2025 2:37 PM EDT [facility] Monocyte % 5.3 0.0 - 14.0 % 04/09/2025 2:37 PM EDT [facility] Eosinophil % 2.3 0.0 - 5.0 % 04/09/2025 2:37 PM EDT [facility] Basophil % 0.3 0.0 - 2.0 % 04/09/2025 2:37 PM EDT [facility] Neutrophil # 4.40 1.80 - 7.70 10*3/uL 04/09/2025 2:37 PM EDT [facility] Immature Grans # <0.03 0.00 - 0.03 10*3/uL 04/09/2025 2:37 PM EDT [facility] Lymphocyte # 1.30 1.00 - 4.75 10*3/uL 04/09/2025 2:37 PM EDT [facility] Monocyte # 0.30 0.00 - 0.60 10*3/uL 04/09/2025 2:37 PM EDT [facility] Eosinophil # 0.10 0.00 - 0.80 10*3/uL 04/09/2025 2:37 PM EDT [facility] Basophil # <0.03 0.00 - 0.20 10*3/uL 04/09/2025 2:37 PM EDT [facility] nRBC % 0.0 0 - 0 /100 WBCs 04/09/2025 2:37 PM EDT [facility] nRBC # <0.01 0.00 - 0.13 10*3/uL 04/09/2025 2:37 PM EDT [facility] Blood Structure of peripheral vein / Unknown 04/09/2025 2:13 PM EDT 04/09/2025 2:13 PM EDT us Gary GARCIA LAB BLOOD ORDERABLES Final R esult [facility] [address] [facility] [address] [place] [address], [place] [phone] * (ABNORMAL) Comprehensive Metabolic Panel (04/09/2025 2:13 PM EDT) Only the most recent of4 resultswithin the time period is included. NA 141 136 - 145 mmol/L 04/09/2025 3:01 PM EDT [facility] K 4.4 3.5 - 5.1 mmol/L 04/09/2025 3:01 PM EDT [facility] Cl 99 97 - 110 mmol/L 04/09/2025 3:01 PM EDT [facility] CO2 27 22 - 32 mmol/L 04/09/2025 3:01 PM EDT [facility] Anion Gap 19 >=0 04/09/2025 3:01 PM EDT [facility] Glucose 86 60 - 99 mg/dL 04/09/2025 3:01 PM EDT [facility] Creatinine 0.21(L) 0.50 - 1.12 mg/dL 04/09/2025 3:01 PM EDT [facility] Calcium 10.1 8.4 - 10.4 mg/dL 04/09/2025 3:01 PM EDT [facility] Total Protein 7.1 6.6 - 8.7 g/dL 04/09/2025 3:01 PM EDT [facility] Albumin 4.0 3.5 - 5.0 g/dL 04/09/2025 3:01 PM EDT [facility] Bilirubin, Total 0.3 0.2 - 1.2 mg/dL 04/09/2025 3:01 PM EDT [facility] Alkaline Phosphatase 66 40 - 129 U/L 04/09/2025 3:01 PM EDT [facility] AST 17 0 - 33 U/L 04/09/2025 3:01 PM EDT [facility] ALT 15 <=33 U/L 04/09/2025 3:01 PM EDT [facility] BUN 24(H) 6 - 20 mg/dL 04/09/2025 3:01 PM EDT [facility] eGFR >90 >=60 mL/min/1. 73m2 04/09/2025 3:01 PM EDT [facility] Comment:The estimated glomer ular filtration [...] - 4.2 g/dL 04/09/2025 3:01 PM EDT [facility] A/G Ratio 1.3(L) 1.5 - 3.0 04/09/2025 3:01 PM EDT [facility] Blood Structure of peripheral vein / Unknown Venipuncture / Unknown 04/09/2025 2:13 PM EDT 04/09/2025 2:13 PM EDT Gary GARCIA LAB BLOOD ORDERABLES Final R esult Performing Organization Address [facility] Co de Phone Number [facility] [address] [address], [place] [phone] * (ABNORMAL) Hemoglobin A1c (02/15/2025 10:44 AM EDT) Hemoglobin A1c 7.1(H) 4.0 - 5.7 % 02/15/2025 11:23 AM EDT [facility] Estimated Average Glucose 157 mg/dL 02/15/2025 11:23 AM EDT [facility] Blood Structure of peripheral vein / Unknown 02/15/2025 10:44 AM EDT 02/15/2025 10:44 AM EDT Sulema Parmar MD LAB BLOOD ORDERABLES Final Res ult Performing Organization Address [facility]/ZIP Co de Phone Number [facility] [address] [address], [place] [phone] from Last 3 Months or Most Recently Relevant to Health [place] [phone] MEDICARE [facility] Advance Directives Documents on File Type Date 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
--- OUTSIDE RECORDS SUMMARY | 2025-06-13 10:29 | XMS_ITS | Encounter Summary ---
Author Organization [facility] Address [address] [place] [address] Care Team Providers Care Creative Services Specialist Name Role Phone Sunitha Rosales Primary Care Provider [phone] Encounter Details Date Type Department Care Team (Late st Contact Info) Description 03/26/[address] [facility] [address] [place] [address] Gary Reynolds PA [address] [place] [address] No diagnosis; Respiratory failure, unspecified, unspecified whether [...] have money to get more. Patient declined [facility] Utilities Answer Date Recorded In [...] of this encounter Procedures * Due to [facility] law, this organization might not be sharing negative HIV tests. Procedure Name Priority Date/Time Associated Diagnosis Comments CBC AUTO DIFFERENTIAL Routine 03/26/2025 12:44 PM EDT No diagnosis Respiratory failure, unspecified, unspecified whether with hypoxia or hypercapnia COMPREHENSIVE METABOLIC PANEL Routine 03/26/2025 12:44 PM EDT No diagnosis Respiratory failure, unspecified, unspecified whether with hypoxia or hypercapnia documented in this encounter Results * Due to [facility] law, this organization might not be sharing negative HIV tests. * (ABNORMAL) CBC Auto Differential (03/26/2025 12:44 PM EDT) WBC 7.1 4.8 - 10.8 10*3/uL 03/26/2025 1:38 PM EDT [facility] RBC 3.34(L) 4.20 - 5.40 10*6/uL 03/26/2025 1:38 PM EDT [facility] Hemoglobin 9.3(L) 11.7 - 15.5 g/dL 03/26/2025 1:38 PM EDT [facility] Hematocrit 28.9(L) 35.7 - 45.8 % 03/26/2025 1:38 PM EDT [facility] MCV 86.5 81.0 - 99.0 fL 03/26/2025 1:38 PM EDT [facility] MCH 27.8 26.0 - 34.0 pg 03/26/2025 1:38 PM EDT [facility] MCHC 32.2 31.0 - 36.0 g/dL 03/26/2025 1:38 PM EDT [facility] RDW 15.3(H) 12.0 - 15.0 % 03/26/2025 1:38 PM EDT [facility] RDW Standard Deviation 48.4(H) 36.4 - 46.3 fL 03/26/2025 1:38 PM EDT [facility] Platelets 316 140 - 440 10*3/uL 03/26/2025 1:38 PM EDT [facility] MPV 9.8 9.4 - 12.3 fL 03/26/2025 1:38 PM EDT [facility] Neutrophil % 77.0(H) 50.0 - 75.0 % 03/26/2025 1:38 PM EDT [facility] Immature Grans % 0.3 0.0 - 0.9 % 03/26/2025 1:38 PM EDT [facility] Lymphocyte % 16.6(L) 20.0 - 44.0 % 03/26/2025 1:38 PM EDT [facility] Monocyte % 4.5 0.0 - 14.0 % 03/26/2025 1:38 PM EDT [facility] Eosinophil % 1.3 0.0 - 5.0 % 03/26/2025 1:38 PM EDT [facility] Basophil % 0.3 0.0 - 2.0 % 03/26/2025 1:38 PM EDT [facility] Neutrophil # 5.43 1.80 - 7.70 10*3/uL 03/26/2025 1:38 PM EDT [facility] Immature Grans # <0.03 0.00 - 0.03 10*3/uL 03/26/2025 1:38 PM EDT [facility] Lymphocyte # 1.20 1.00 - 4.75 10*3/uL 03/26/2025 1:38 PM EDT [facility] Monocyte # 0.30 0.00 - 0.60 10*3/uL 03/26/2025 1:38 PM EDT [facility] Eosinophil # 0.10 0.00 - 0.80 10*3/uL 03/26/2025 1:38 PM EDT [facility] Basophil # <0.03 0.00 - 0.20 10*3/uL 03/26/2025 1:38 PM EDT [facility] nRBC % 0.0 0 - 0 /100 WBCs 03/26/2025 1:38 PM EDT [facility] nRBC # <0.01 0.00 - 0.13 10*3/uL 03/26/2025 1:38 PM EDT [facility] Blood Structure of peripheral vein / Unknown 03/26/2025 12:44 PM EDT 03/26/2025 12:44 PM EDT Gary GARCIA LAB BLOOD ORDERABLES Final R esult [facility] [address] [place] [address] [address] [place] [address], * (ABNORMAL) Comprehensive Metabolic Panel (03/26/2025 12:44 PM EDT) NA 141 136 - 145 mmol/L 03/26/2025 2:19 PM EDT [facility] K 4.0 3.5 - 5.1 mmol/L 03/26/2025 2:19 PM EDT [facility] Cl 100 97 - 110 mmol/L 03/26/2025 2:19 PM EDT [facility] CO2 26 22 - 32 mmol/L 03/26/2025 2:19 PM EDT [facility] Anion Gap 19 >=0 03/26/2025 2:19 PM EDT [facility] Glucose 104(H) 60 - 99 mg/dL 03/26/2025 2:19 PM EDT [facility] Creatinine 0.21(L) 0.50 - 1.12 mg/dL 03/26/2025 2:19 PM EDT [facility] Calcium 10.2 8.4 - 10.4 mg/dL 03/26/2025 2:19 PM EDT [facility] Total Protein 7.6 6.6 - 8.7 g/dL 03/26/2025 2:19 PM EDT [facility] Albumin 4.2 3.5 - 5.0 g/dL 03/26/2025 2:19 PM EDT [facility] Bilirubin, Total 0.4 0.2 - 1.2 mg/dL 03/26/2025 2:19 PM EDT [facility] Alkaline Phosphatase 68 40 - 129 U/L 03/26/2025 2:19 PM EDT [facility] AST 23 0 - 33 U/L 03/26/2025 2:19 PM EDT [facility] ALT 17 <=33 U/L 03/26/2025 2:19 PM EDT [facility] BUN 25(H) 6 - 20 mg/dL 03/26/2025 2:19 PM EDT [facility] eGFR >90 >=60 mL/min/1. 73m2 03/26/2025 2:19 PM T [facility] Comment:The estimated glomer ular filtration rate [...] in Diagnosing Kidney Disease . Globulin, Total 3.4 2.1 - 4.2 g/dL 03/26/2025 2:19 PM EDT [facility] A/G Ratio 1.2(L) 1.5 - 3.0 03/26/2025 2:19 PM T [facility] Blood Structure of peripheral vein / Unknown Venipuncture / Unknown 03/26/2025 12:44 PM EDT 03/26/2025 12:44 PM EDT us Gary GARCIA LAB BLOOD ORDERABLES Final R esult [facility] [address] [facility] [address] [place] [address], documented in this encounter Visit Diagnoses Diagnosis No diagnosis Respiratory failure, unspecified, unspecified whether with hypoxia or hypercapnia documented in this encounter Care Teams Creative Services Specialist Relationship Specialty Start Date End Date Sunitha Rosales [address] [place] [id number] PCP - General Family Medicine 03/02/25 documented as of this encounter
--- OUTSIDE RECORDS SUMMARY | 2025-06-13 10:29 | XMS_ITS | Encounter Summary ---
Author Organization [facility] Address [address] [place] [address] Care Team Providers Care Wind Operations Manager Name Role Phone Sunitha Rosales Primary Care Provider [phone] Encounter Details Date Type Department Care Team (Late st Contact Info) Description 04/02/2025 Lab Requisition [facility] [address] [place] [address] Gary Reynolds PA [address] [place] [address] No diagnosis; Acute and chronic respiratory failure with hypoxia Social History Tobacco Use Types Packs/Day Years [...] have money to get more. Patient declined [facility] Utilities Answer Date Recorded In the past 12 months has th [employer] electric, gas, oil, or water company threatened [...] of this encounter Procedures * Due to [facility] law, this organization might not be sharing negative HIV tests. Procedure Name Priority Date/Time Associated Diagnosis Comments CBC AUTO DIFFERENTIAL Routine 04/02/2025 11:34 AM EDT No diagnosis Acute and chronic respiratory failure with hypoxia COMPREHENSIVE METABOLIC PANEL Routine 04/02/2025 11:34 AM EDT No diagnosis Acute and chronic respiratory failure with hypoxia documented in this encounter Results * Due to [employer] law, this organization might not be sharing negative HIV tests. * (ABNORMAL) CBC Auto Differential (04/02/2025 11:34 AM EDT) WBC 6.2 4.8 - 10.8 10*3/uL 04/02/2025 12:48 PM EDT [facility] RBC 3.17(L) 4.20 - 5.40 10*6/uL 04/02/2025 12:48 PM EDT [facility] Hemoglobin 8.7(L) 11.7 - 15.5 g/dL 04/02/2025 12:48 PM EDT [facility] Hematocrit 27.0(L) 35.7 - 45.8 % 04/02/2025 12:48 PM EDT [facility] MCV 85.2 81.0 - 99.0 fL 04/02/2025 12:48 PM EDT [facility] MCH 27.4 26.0 - 34.0 pg 04/02/2025 12:48 PM EDT [facility] MCHC 32.2 31.0 - 36.0 g/dL 04/02/2025 12:48 PM EDT [facility] RDW 15.0 12.0 - 15.0 % 04/02/2025 12:48 PM EDT [facility] RDW Standard Deviation 46.6(H) 36.4 - 46.3 fL 04/02/2025 12:48 PM EDT [facility] Platelets 270 140 - 440 10*3/uL 04/02/2025 12:48 PM EDT [facility] MPV 9.5 9.4 - 12.3 fL 04/02/2025 12:48 PM EDT [facility] Neutrophil % 73.8 50.0 - 75.0 % 04/02/2025 12:48 PM EDT [facility] Immature Grans % 0.3 0.0 - 0.9 % 04/02/2025 12:48 PM EDT [facility] Lymphocyte % 18.6(L) 20.0 - 44.0 % 04/02/2025 12:48 PM EDT [facility] Monocyte % 4.9 0.0 - 14.0 % 04/02/2025 12:48 PM EDT [facility] Eosinophil % 2.1 0.0 - 5.0 % 04/02/2025 12:48 PM EDT [facility] Basophil % 0.3 0.0 - 2.0 % 04/02/2025 12:48 PM EDT [facility] Neutrophil # 4.56 1.80 - 7.70 10*3/uL 04/02/2025 12:48 PM EDT [facility] Immature Grans # <0.03 0.00 - 0.03 10*3/uL 04/02/2025 12:48 PM EDT [facility] Lymphocyte # 1.20 1.00 - 4.75 10*3/uL 04/02/2025 12:48 PM EDT [facility] Monocyte # 0.30 0.00 - 0.60 10*3/uL 04/02/2025 12:48 PM EDT [facility] Eosinophil # 0.10 0.00 - 0.80 10*3/uL 04/02/2025 12:48 PM EDT [facility] Basophil # <0.03 0.00 - 0.20 10*3/uL 04/02/2025 12:48 PM EDT [facility] nRBC % 0.0 0 - 0 /100 WBCs 04/02/2025 12:48 PM EDT [facility] nRBC # <0.01 0.00 - 0.13 10*3/uL 04/02/2025 12:48 PM EDT [facility] Blood Structure of peripheral vein / Unknown Venipuncture / Unknown 04/02/2025 11:34 AM EDT 04/02/2025 12:46 PM EDT us Gary GARCIA LAB BLOOD ORDERABLES Final R esult [facility] [address] [facility] [address] [place] [address], [place] [phone] * (ABNORMAL) Comprehensive Metabolic Panel (04/02/2025 11:34 AM EDT) NA 141 136 - 145 mmol/L 04/02/2025 1:10 PM EDT [facility] K 3.9 3.5 - 5.1 mmol/L 04/02/2025 1:10 PM EDT [facility] Cl 99 97 - 110 mmol/L 04/02/2025 1:10 PM EDT [facility] CO2 29 22 - 32 mmol/L 04/02/2025 1:10 PM EDT [facility] Anion Gap 17 >=0 04/02/2025 1:10 PM EDT [facility] Glucose 119(H) 60 - 99 mg/dL 04/02/2025 1:10 PM EDT [facility] Creatinine 0.23(L) 0.50 - 1.12 mg/dL 04/02/2025 1:10 PM EDT [facility] Calcium 9.8 8.4 - 10.4 mg/dL 04/02/2025 1:10 PM EDT [facility] Total Protein 7.1 6.6 - 8.7 g/dL 04/02/2025 1:10 PM EDT [facility] Albumin 4.0 3.5 - 5.0 g/dL 04/02/2025 1:10 PM EDT [facility] Bilirubin, Total 0.3 0.2 - 1.2 mg/dL 04/02/2025 1:10 PM EDT [facility] Alkaline Phosphatase 62 40 - 129 U/L 04/02/2025 1:10 PM EDT [facility] AST 19 0 - 33 U/L 04/02/2025 1:10 PM EDT [facility] ALT 17 <=33 U/L 04/02/2025 1:10 PM EDT [facility] BUN 25(H) 6 - 20 mg/dL 04/02/2025 1:10 PM EDT [facility] eGFR >90 >=60 mL/min/1. 73m2 04/02/2025 1:10 PM EDT [facility] Comment:The estimated glomer ular filtration [...] Globulin, Total 3.1 2.1 - 4.2 g/dL 04/02/2025 1:10 PM EDT [facility] A/G Ratio 1.3(L) 1.5 - 3.0 04/02/2025 1:10 PM EDT [facility] Blood Structure of peripheral vein / Unknown 04/02/2025 11:34 AM EDT 04/02/2025 12:49 PM EDT Gary GARCIA LAB BLOOD ORDERABLES Final R esult [facility] [address] [place] [address], documented in this encounter Visit Diagnoses Diagnosis No diagnosis Acute and chronic respiratory failure with hypoxia documented in this encounter Care Teams Wind Operations Manager Relationship Specialty Start Date End Date Sunitha Rosales [address] [place] [id number] PCP - General Family Medicine 03/02/25 documented as of this encounter
--- OUTSIDE RECORDS SUMMARY | 2025-06-13 10:29 | XMS_ITS | Data Portability ---
Author Organization [facility], [facility] Address [address] [place] [address] Care Team Providers Care Bonding Molder Name Role Phone HIM CCA OTHER Unavailable OTHER Assessment Encounter Date Assessment Date Assessment LastModified by Organization Details LastModified Time 04/24/2024 04/24/2024 As noted, we were called to see this patient regarding concerns of knee pain. Evaluation in the field was performed by my team sports sales associate colleague, as noted above, I provided real-time [...] Orders Diflucan 150 mg tablet 2023 024 [facility], [address] [place] [address], [phone], 11:39:23 Patient TargetsNo targets recorded. Patient InstructionsNo instructions recorded. Reason for Referral None Reported. Medical Equipment None Reported. Allergies Allergen ID Allergen Name Allergen Category Reaction Reaction Severity Criticality Documentation Date Start Date Code Code System Note Provider Name and Address Organization Details Recorded Time 24165 loperamid e medicatio n Not available Not available Not available 06/08/2024 6468 RxNorm Not Available [facility] - production 14:37:50 06826 Risperdal medicatio n Not available Not available Not available 06/08/2024 22743 8 [facility] 14:37:50 94868 Terramyci n with Polymyxin B medicatio n Not available Not available Not available 06/08/2024 23467 2 RxNorm Not Available [facility] - production 14:37:50 5455 metronida zole medicatio n Not available Not available Not available 01/04/2024 6922 RxNorm Not Available [facility] - production 03:42:28 5456 aripipraz ole medicatio n Not available Not available Not available 01/04/2024 27432 RxNorm Not Available [facility] - production 14:37:50 5457 bacitraci n medicatio n Not available Not available Not available 01/04/2024 1291 RxNorm Not Available [facility] - production 14:37:50 5458 iopromide medicatio n Not available Not available Not available 01/04/2024 08864 RxNorm OMKAR GONZALEZ MD [address] [facility],[address], [place], [address] , [facility], [facility] 4 16:54:42 5459 neomycin medicatio n Not available Not available Not available 01/04/2024 7299 RxNorm Not Available [facility] - production 4 14:37:50 5460 polymyxin B medicatio n Not available Not available Not available 01/04/2024 8536 RxNorm OMKAR GONZALEZ MD [address] [facility],[address], [place], [address], [facility], [employer] 4 16:55:17 5461 risperido ne medicatio n Not available Not available Not available 01/04/2024 19199 RxNorm Not Available [facility] - production 4 [...] Available Not Available No t Available [employer] Alma Lite kit TEST BLOOD SUGAR TWICE DAILY [...] Available No t Available [employer] Charanjit 2 [place] USE DIRECTED active Not Available Not Available [...] rate Heart rate Body height Oxygen saturation Body temperature Systolic And Diastolic Provider Name and Address Organization Details Last Updated DateTime 4 33096.4 g 14 /min 80 /min 157.48 cm 98 % 98.4 [degF] 123/83 mm[Hg] Not Available [employer] 4 11:10:21 Date Recorded Oxygen saturation Heart rate Body weight Body height Respiratory rate Systolic And Diastolic Provider Name and Address Organization Details Last Updated DateTime 4 99 % 95 /min 725618 g 162.56 cm 16 /min 180/100 mm[Hg] Not Available [employer] 4 18:04:26 Social History None recorded. Functional Status None recorded. Mental Status None recorded. Family History Nothing Reported. Medical History No medical history recorded. Gynecological HistoryNo gynecological history recorded. Obstetrics History GPAL:G 0 P 0 0 0 0 Past Encounters Encounter ID Performer Location Encounter Start Date Encounter Closed Date Diagnosis/Indication Diagnosis SNOMED-CT Code Diagnosis ICD10 Code Diagnosis IMO Codes Diagnosis Note [id number] Wayne Flowers MD Main - [facility] [address] [place] [phone] 02/03/2024 11:10:18 02/04/2024 12:57:30 Candidiasis of vagina 24509460 B37.31 Patient states sxs similar to candidiasi s in the past. Will treat with 1x diflucan. No red flag signs noted. Discussed red flag signs for which to seek higher level of care. [id number] oCra Ch MD [address] [phone] 04/24/2024 17:58:13 04/24/2024 20:03:50 Pain of right knee joint 0704388162 56551 M25.561 Health Concerns Section Related Observation LastModified by Organization Jarod ls LastModified Time None Recorded Concern Status LastModified by Organization Details LastModified Time None Recorded Advance Directives Directive None Recorded Payers Insurance Date Sequence Insurance Name Policy Number Policy Nuñez Covered Member ID Nuñez Member ID Guarantor Name 06/14/2024 1 [facility] - DOS ON OR AFTER 2022 - DUAL ELIGIBLE - GROUP HOME OPTIONS AND ONE CARE (MEDICARE REPLACEMENT/ADV ANTAGE - HMO) Georgia Muñoz [id number] Georgia Muñoz Notes Date Note Type Note Provider Name and Address Organization Details Recorded Time 02/03/2024 text/html ROS as noted in the HPI HPI: Patient reports that she had itching [...] ................... ................... ................... ................... ................... ................... ........ Maintenance Supervisor Note From Daryl Sainz: Patient and oriented [...] before.Patient pink warm dry secondary exam unremarkable. [facility] prescribes medication to patient local pharmacy. Red flags and patient education discussed. Consent uploaded in docs Maintenance Supervisor Allergies: Metronidazole ................... ................... ................... ................... ................... ................... ................... ........ Disposition: Fulfilled Wayne Flowers MD [address] [place] [address],[address], [place], [address], [employer] 02/03/2024 16:41:30 04/24/2024 text/html HPI: Pt reports [...] ................... ................... ................... ................... ................... ................... ........ Maintenance Supervisor Note From Junito Engel: [facility] visit for female pt. Pt presents reporting [...] deformity or obvious swelling. Images taken for [facility]. Consulted with [facility] Dr. Ch. Dr. Ch advised ice and follow up with PCP. Pt told she can take tylenol or ibuprofen. Reviewed red flags for ED. Pt education provided. ................... ................... ................... ................... ................... ................... ................... ........ [facility] Consulted: Cora Ch ................... ................... ................... ................... ................... ................... ................... ........ Disposition: Fulfilled Cora Ch MD [address] [facility], [place], [address], [employer] [facility] 04/24/2024 19:25:49 OBGyn Episode No OBEpisode recorded.
--- OUTSIDE RECORDS SUMMARY | 2025-06-13 10:29 | XMS_ITS | Encounter Summary ---
Author Organization [facility] Address [address] [place] [address] Care Team Providers Care Cleaner Housekeeping Name Role Phone Sunitha Rosales Primary Care Provider [phone] Encounter Details Date Type Department Care Team (Late st Contact Info) Description 03/19/2025 Lab Requisition [facility] [address] [place] [address] Gary Reynolds PA [address] [place] [address] No diagnosis; Respiratory failure, unspecified, unspecified whether [...] have money to get more. Patient declined [facility] Utilities Answer Date Recorded In the past 12 months has th [employer] electric, gas, oil, or water company threatened [...] of this encounter Procedures * Due to [facility] law, this organization might not be sharing negative HIV tests. Procedure Name Priority Date/Time Associated Diagnosis Comments CBC AUTO DIFFERENTIAL Routine 03/19/2025 12:20 PM EDT No diagnosis Respiratory failure, unspecified, unspecified whether with hypoxia or hypercapnia COMPREHENSIVE METABOLIC PANEL Routine 03/19/2025 12:20 PM EDT No diagnosis Respiratory failure, unspecified, unspecified whether with hypoxia or hypercapnia documented in this encounter Results * Due to [facility] law, this organization might not be sharing negative HIV tests. * (ABNORMAL) CBC Auto Differential (03/19/2025 12:20 PM EDT) WBC 5.6 4.8 - 10.8 10*3/uL 03/19/2025 12:33 PM EDT [facility] RBC 3.13(L) 4.20 - 5.40 10*6/uL 03/19/2025 12:33 PM EDT [facility] Hemoglobin 8.6(L) 11.7 - 15.5 g/dL 03/19/2025 12:33 PM EDT [facility] Hematocrit 26.8(L) 35.7 - 45.8 % 03/19/2025 12:33 PM EDT [facility] MCV 85.6 81.0 - 99.0 fL 03/19/2025 12:33 PM EDT [facility] MCH 27.5 26.0 - 34.0 pg 03/19/2025 12:33 PM EDT [facility] MCHC 32.1 31.0 - 36.0 g/dL 03/19/2025 12:33 PM EDT [facility] RDW 14.6 12.0 - 15.0 % 03/19/2025 12:33 PM EDT [facility] RDW Standard Deviation 45.4 36.4 - 46.3 fL 03/19/2025 12:33 PM EDT [facility] Platelets 325 140 - 440 10*3/uL 03/19/2025 12:33 PM EDT [facility] MPV 9.1(L) 9.4 - 12.3 fL 03/19/2025 12:33 PM EDT [facility] Neutrophil % 73.8 50.0 - 75.0 % 03/19/2025 12:33 PM EDT [facility] Immature Grans % 0.7 0.0 - 0.9 % 03/19/2025 12:33 PM EDT [facility] Lymphocyte % 19.0(L) 20.0 - 44.0 % 03/19/2025 12:33 PM EDT [facility] Monocyte % 5.2 0.0 - 14.0 % 03/19/2025 12:33 PM EDT [facility] Eosinophil % 0.9 0.0 - 5.0 % 03/19/2025 12:33 PM EDT [facility] Basophil % 0.4 0.0 - 2.0 % 03/19/2025 12:33 PM EDT [facility] Neutrophil # 4.16 1.80 - 7.70 10*3/uL 03/19/2025 12:33 PM EDT [facility] Immature Grans # 0.04(H) 0.00 - 0.03 10*3/uL 03/19/2025 12:33 PM EDT [facility] Lymphocyte # 1.10 1.00 - 4.75 10*3/uL 03/19/2025 12:33 PM EDT [facility] Monocyte # 0.30 0.00 - 0.60 10*3/uL 03/19/2025 12:33 PM EDT [facility] Eosinophil # 0.10 0.00 - 0.80 10*3/uL 03/19/2025 12:33 PM EDT [facility] Basophil # <0.03 0.00 - 0.20 10*3/uL 03/19/2025 12:33 PM EDT [facility] nRBC % 0.0 0 - 0 /100 WBCs 03/19/2025 12:33 PM EDT [facility] nRBC # <0.01 0.00 - 0.13 10*3/uL 03/19/2025 12:33 PM EDT [facility] Blood Structure of peripheral vein / Unknown 03/19/2025 12:20 PM EDT 03/19/2025 12:20 PM EDT us Gary GARCIA LAB BLOOD ORDERABLES Final R esult [facility] [address] [place] [address] [address] [place] [address], * (ABNORMAL) Comprehensive Metabolic Panel (03/19/2025 12:20 PM EDT) NA 139 136 - 145 mmol/L 03/19/2025 12:51 PM EDT [facility] K 3.9 3.5 - 5.1 mmol/L 03/19/2025 12:51 PM EDT [facility] Cl 97(L) 98 - 109 mmol/L 03/19/2025 12:51 PM EDT [facility] CO2 28 22 - 32 mmol/L 03/19/2025 12:51 PM EDT [facility] Anion Gap 18 >=0 03/19/2025 12:51 PM EDT [facility] Glucose 87 60 - 99 mg/dL 03/19/2025 12:51 PM EDT [facility] Creatinine 0.19(L) 0.50 - 1.12 mg/dL 03/19/2025 12:51 PM EDT [facility] Calcium 9.8 8.4 - 10.4 mg/dL 03/19/2025 12:51 PM EDT [facility] Total Protein 7.0 6.6 - 8.7 g/dL 03/19/2025 12:51 PM EDT [facility] Albumin 3.8 3.5 - 5.0 g/dL 03/19/2025 12:51 PM EDT [facility] Bilirubin, Total 0.4 0.2 - 1.2 mg/dL 03/19/2025 12:51 PM EDT [facility] Alkaline Phosphatase 68 40 - 129 U/L 03/19/2025 12:51 PM EDT [facility] AST 23 0 - 33 U/L 03/19/2025 12:51 PM EDT [facility] ALT 19 <=33 U/L 03/19/2025 12:51 PM EDT [facility] BUN 19 6 - 20 mg/dL 03/19/2025 12:51 PM EDT [facility] eGFR >90 >=60 mL/min/1. 73m2 03/19/2025 12:51 PM T [facility] Comment:The estimated glomer ular filtration rate [...] in Diagnosing Kidney Disease . Globulin, Total 3.2 2.1 - 4.2 g/dL 03/19/2025 12:51 PM EDT [facility] A/G Ratio 1.2(L) 1.5 - 3.0 03/19/2025 12:51 PM T [facility] Blood Structure of peripheral vein / Unknown Venipuncture / Unknown 03/19/2025 12:20 PM EDT 03/19/2025 12:20 PM EDT us Gary GARCIA LAB BLOOD ORDERABLES Final R esult [facility] [address] [facility] [address] [place] [address], documented in this encounter Visit Diagnoses Diagnosis No diagnosis Respiratory failure, unspecified, unspecified whether with hypoxia or hypercapnia documented in this encounter Care Teams Cleaner Housekeeping Relationship Specialty Start Date End Date Sunitha Rosales [address] [place] [phone] PCP - General Family Medicine 03/02/25 documented as of this encounter
--- OUTSIDE RECORDS SUMMARY | 2025-06-13 10:29 | XMS_ITS | Encounter Summary ---
Author Organization [facility] Address [address] [place] [address] Care Team Providers Care Devulcanizer Operator Name Role Phone Sunitha Rosales Primary Care Provider [phone] Encounter Details Date Type Department Care Team (Late st Contact Info) Description 03/12/2025 Lab Requisition [facility] [address] [place] [address] Gary Reynolds PA [address] [place] [address] No diagnosis; Respiratory failure, unspecified, unspecified whether [...] have money to get more. Patient declined [facility] Utilities Answer Date Recorded In the past 12 months has th wedgies electric, gas, oil, or water company threatened [...] of this encounter Procedures * Due to [facility] law, this organization might not be sharing negative HIV tests. Procedure Name Priority Date/Time Associated Diagnosis Comments CBC AUTO DIFFERENTIAL Routine 03/12/2025 12:38 PM EDT No diagnosis Respiratory failure, unspecified, unspecified whether with hypoxia or hypercapnia (HCC) COMPREHENSIVE METABOLIC PANEL Routine 03/12/2025 12:38 PM EDT No diagnosis Respiratory failure, unspecified, unspecified whether with hypoxia or hypercapnia (HCC) documented in this encounter Results * Due to [facility] law, this organization might not be sharing negative HIV tests. * (ABNORMAL) CBC Auto Differential (03/12/2025 12:38 PM EDT) WBC 6.5 4.8 - 10.8 10*3/uL 03/12/2025 12:55 PM EDT [facility] RBC 2.78(L) 4.20 - 5.40 10*6/uL 03/12/2025 12:55 PM EDT [facility] Hemoglobin 7.8(L) 11.7 - 15.5 g/dL 03/12/2025 12:55 PM EDT [facility] Hematocrit 24.3(L) 35.7 - 45.8 % 03/12/2025 12:55 PM EDT [facility] MCV 87.4 81.0 - 99.0 fL 03/12/2025 12:55 PM EDT [facility] MCH 28.1 26.0 - 34.0 pg 03/12/2025 12:55 PM EDT [facility] MCHC 32.1 31.0 - 36.0 g/dL 03/12/2025 12:55 PM EDT [facility] RDW 15.4(H) 12.0 - 15.0 % 03/12/2025 12:55 PM EDT [facility] RDW Standard Deviation 49.4(H) 36.4 - 46.3 fL 03/12/2025 12:55 PM EDT [facility] Platelets 316 140 - 440 10*3/uL 03/12/2025 12:55 PM EDT [facility] MPV 9.2(L) 9.4 - 12.3 fL 03/12/2025 12:55 PM EDT [facility] Neutrophil % 72.2 50.0 - 75.0 % 03/12/2025 12:55 PM EDT [facility] Immature Grans % 0.8 0.0 - 0.9 % 03/12/2025 12:55 PM EDT [facility] Lymphocyte % 18.5(L) 20.0 - 44.0 % 03/12/2025 12:55 PM EDT [facility] Monocyte % 6.7 0.0 - 14.0 % 03/12/2025 12:55 PM EDT [facility] Eosinophil % 1.5 0.0 - 5.0 % 03/12/2025 12:55 PM EDT [facility] Basophil % 0.3 0.0 - 2.0 % 03/12/2025 12:55 PM EDT [facility] Neutrophil # 4.72 1.80 - 7.70 10*3/uL 03/12/2025 12:55 PM EDT [facility] Immature Grans # 0.05(H) 0.00 - 0.03 10*3/uL 03/12/2025 12:55 PM EDT [facility] Lymphocyte # 1.20 1.00 - 4.75 10*3/uL 03/12/2025 12:55 PM EDT [facility] Monocyte # 0.40 0.00 - 0.60 10*3/uL 03/12/2025 12:55 PM EDT [facility] Eosinophil # 0.10 0.00 - 0.80 10*3/uL 03/12/2025 12:55 PM EDT [facility] Basophil # <0.03 0.00 - 0.20 10*3/uL 03/12/2025 12:55 PM EDT [facility] nRBC % 0.0 0 - 0 /100 WBCs 03/12/2025 12:55 PM EDT [facility] nRBC # <0.01 0.00 - 0.13 10*3/uL 03/12/2025 12:55 PM EDT [facility] Blood Structure of peripheral vein / Unknown Venipuncture / Unknown 03/12/2025 12:38 PM EDT 03/12/2025 12:38 PM EDT us Gary GARCIA LAB BLOOD ORDERABLES Final R esult Performing Organization Address City/State/[facility] Co de Phone Number [facility] [address] [place] [phone], * (ABNORMAL) Comprehensive Metabolic Panel (03/12/2025 12:38 PM EDT) NA 139 136 - 145 mmol/L 03/12/2025 1:20 PM EDT [facility] K 3.8 3.5 - 5.1 mmol/L 03/12/2025 1:20 PM EDT [facility] Cl 97(L) 98 - 109 mmol/L 03/12/2025 1:20 PM EDT [facility] CO2 28 22 - 32 mmol/L 03/12/2025 1:20 PM EDT [facility] Anion Gap 18 >=0 03/12/2025 1:20 PM EDT [facility] Glucose 89 60 - 99 mg/dL 03/12/2025 1:20 PM EDT [facility] Creatinine 0.18(L) 0.50 - 1.12 mg/dL 03/12/2025 1:20 PM EDT [facility] Calcium 9.7 8.4 - 10.4 mg/dL 03/12/2025 1:20 PM EDT [facility] Total Protein 6.9 6.6 - 8.7 g/dL 03/12/2025 1:20 PM EDT [facility] Albumin 3.7 3.5 - 5.0 g/dL 03/12/2025 1:20 PM EDT [facility] Bilirubin, Total 0.4 0.2 - 1.2 mg/dL 03/12/2025 1:20 PM EDT [facility] Alkaline Phosphatase 80 40 - 129 U/L 03/12/2025 1:20 PM EDT [facility] AST 21 0 - 33 U/L 03/12/2025 1:20 PM EDT [facility] ALT 19 <=33 U/L 03/12/2025 1:20 PM EDT [facility] BUN 18 6 - 20 mg/dL 03/12/2025 1:20 PM EDT [facility] eGFR >90 >=60 mL/min/1. 73m2 03/12/2025 1:20 PM EDT [facility] Comment:The estimated glomer ular filtration [...] Globulin, Total 3.2 2.1 - 4.2 g/dL 03/12/2025 1:20 PM EDT [facility] A/G Ratio 1.2(L) 1.5 - 3.0 03/12/2025 1:20 PM EDT [facility] Blood Structure of peripheral vein / Unknown Venipuncture / Unknown 03/12/2025 12:38 PM EDT 03/12/2025 12:38 PM EDT us Gary GARCIA LAB BLOOD ORDERABLES Final R esult [facility] [address] [place] [address], [place] [phone] documented in this encounter Visit Diagnoses Diagnosis No diagnosis Respiratory failure, unspecified, unspecified whether with hypoxia or hypercapnia documented in this encounter Care Teams Devulcanizer Operator Relationship Specialty Start Date End Date Sunitha Rosales [address] [place] [address] PCP - General Family Medicine 03/02/25 documented as of this encounter
--- OUTSIDE RECORDS SUMMARY | 2025-06-13 10:29 | XMS_ITS ---
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 Role Phone Mallorie Bucio Unavailable Unavailable Gustavo Logan Unavailable Unavailable Wayne Rubalcava Unavailable Unavailable Allergies and adverse reactions Code CodeSystem Substance Reaction Severity StartDate Concern Status 01207 RXNORM ARIPiprazole Unknown 04/18/2025 active 1291 RXNORM Bacitracin Unknown 04/18/2025 active 6468 RXNORM Loperamide Unknown 04/18/2025 active 6922 RXNORM metroNIDAZOLE Unknown 04/18/2025 active 14020 RXNORM risperiDONE Unknown 04/18/2025 active Care Team Name Role Address Phone Organization Meche Rubalcava PCP [address] [facility], [place], [address] (Office): : [facility] 04/09/2025 - 06/11/2025 Mallorie Bucio [facility] [address], [place], [address], [place] (Office): [phone] (Fax): [phone] [facility] 04/09/2025 - 06/11/2025 Gustavo Logan [address], [place], [address] (Office): [phone] (Fax): [phone] [facility] 04/09/2025 - 06/11/2025 Encounters Encounter Type Code Code System Description Performer Discharge Disposition Service Delivery Location Date Ambulatory Encounter CPT Code = [id number] Amyotrophic lateral sclerosis Tika Denis Discharge to [facility] Address: [address], [place], [place], [address] [place] [address]. 04/09 Ambulatory Encounter CPT Code = [id number] Chronic obstructive pulmonary disease Tika Denis Discharge to [facility] Address: [address], [address] 04/09 Ambulatory Encounter CPT Code = [id number] Type 2 diabetes mellitus without complication Tika Denis Discharge to [facility] Address: [address] [place], [facility], [facility]. 04/09 Ambulatory Encounter CPT Code = [id number] Omete-no-ppvjixi respiratory failure Tika Denis Discharge to [facility] Address: [address], [place], [facility], [facility]. 04/09 Ambulatory Encounter CPT Code = [id number] Posttraumatic stress disorder Tika Denis Discharge to [facility] Address: [address], [facility], [facility]. 04/09 Ambulatory Encounter CPT Code = [id number] Tracheostomy present Tika Denis Discharge to [facility] Address: [address] 04/09 Ambulatory Encounter CPT Code = [id number] Gastrostomy present Tika Denis Discharge to [facility] Address: [address] 04/09 Ambulatory Encounter CPT Code = [id number] Hyperlipidemia Tika Denis Discharge to [facility] Address: [address] 04/09 Ambulatory Encounter CPT Code = [id number] Anxiety disorder Tika Denis Discharge to [facility] Address: [address] [place] [address]. 04/09 Ambulatory Encounter CPT Code = [id number] Paraplegia Tika Denis Discharge to [facility] Address: [address], [place], [address] [place] [address]. 04/09 Ambulatory Encounter CPT Code = [id number] Acute renal failure due to tubular necrosis Tika Denis Discharge to [facility] Address: [address], [place], [address] [place] [address]. 04/09 Ambulatory Encounter CPT Code = [id number] Gastroesophageal reflux disease without esophagitis Tika Denis Discharge to [facility] Address: [address], [place], [address] [place] [address]. 04/09 Ambulatory Encounter CPT Code = [id number] Hypothyroidism Tika Denis Discharge to [facility] Address: [address] 04/09 Ambulatory Encounter CPT Code = [id number] Essential hypertension Tika Denis Discharge to [facility] Address: [address] [place], [address], [facility]. 04/09 Ambulatory Encounter CPT Code = [id number] Bronchopneumonia Tika Denis Discharge to [facility] Address: [address], [facility] [address], [facility]. 04/09 Ambulatory Encounter CPT Code = [id number] Iron deficiency anemia due to blood loss Tika Denis Discharge to [facility] Address: [address], [facility] [address], [facility]. 04/09 Ambulatory Encounter CPT Code = [id number] Respiratory failure Tika Denis Discharge to [facility] Address: [address], [place] [address], [facility]. 04/09 Ambulatory Encounter CPT Code = [id number] Panic disorder Tika Denis Discharge to [facility] Address: [address], [place], [address], [facility]. 04/09 Goals Section Goals Description Status Target Date [place] will not experience abnormal bleeding rough next review Active 08/23/2025 Resident Will Be Able to Effectively Communicate Basic Needs Active 08/23/2025 Resident Will Be Able to Effectively Comprehend Commands Active 08/23/2025 Resident Will Maintain Airway Patency Active 08/23/2025 Resident will enjoy optimal quality of life, supportive symptom control, individual and family support to maximize general well being. Active 08/23/2025 Resident will have supportiv e symptom control, individual and family support to maximize general well being. Active 026 The resident will be free from injury through e next review. Active 08/23/2025 The resident will be free of falls through the eview date. Active 08/23/2025 The resident will not sustai n serious injury through the review date. Active 08/23/2025 Functional Status Code Name Recorded Time Value Entered By Chair/epu-db-uilpw transfer 06/11/2025 Dependent hlombardi Eating 06/11/2025 Supervision or t ouching assistance hlombardi Lower body dressing 06/11/2025 Dependent hlombard i Lying to sitting on side of bed 06/11/2025 Dependent hlombardi Oral hygiene 06/11/2025 Dependent hlombardi Personal hygiene 06/11/2025 Dependent hlombardi Putting on/taking off footwear 06/11/2025 Dependent hlombardi Roll left and right 06/11/2025 Dependent hlombard i Shower/bathe self 06/11/2025 Dependent hlombardi Sit to lying 06/11/2025 Dependent hlombardi Sit to stand 06/11/2025 Dependent hlombardi Toilet transfer 06/11/2025 Dependent hlombardi Toileting hygiene 06/11/2025 Dependent hlombardi Upper body dressing 06/11/2025 Dependent hlombard i Immunizations Immunization Status Vaccine Details Vaccine Code CodeSystem Date Notes Hepatitis B completed hepatitis B vaccine, adult dosage 43 CVX created date: 05/24/2025 administer ed date: 05/07/2008 Hepatitis B completed hepatitis B vaccine, adult dosage 43 CVX created date: 05/24/2025 administer ed date: 07/25/2007 Hepatitis B completed hepatitis B vaccine, adult dosage 43 CVX created date: 05/24/2025 administer ed date: 06/24/2007 SARS-COV-2 (COVID-19) completed SARS-COV-2 (COVID-19) vaccine, UNSPECIFIED lotNumber: [id number] Step 0 of Multi-step with next step required 213 CVX created date: 05/24/2025 administer ed date: 09/11/2024 Jesus Manuel SARS-COV-2 (COVID-19) completed SARS-COV-2 (COVID-19) vaccine, UNSPECIFIED lotNumber: [id number] Step 0 of Multi-step with next step required 213 CVX created date: 05/24/2025 administer ed date: 04/21/2021 Pfizer SARS-COV-2 (COVID-19) completed SARS-COV-2 (COVID-19) vaccine, UNSPECIFIED lotNumber: [id number] Step 0 of Multi-step with next step required 213 CVX created date: 05/24/2025 administer ed date: 09/25/2020 cinvolve MMR completed measles, mumps a nd rubella virus vaccine 03 CVX created date: 05/24/2025 administer ed date: 08/21/1991 Hep A, adult completed hepatitis A vaccine, adult dosage 52 CVX created date: 05/24/2025 administer ed date: 05/07/2008 Hep A, adult completed hepatitis A vaccine, adult dosage 52 CVX created date: 05/24/2025 administer ed date: 06/24/2007 Pneumococcal conjugate PCV20 completed Pneumococcal conjugate vaccine 20-valent (PCV20), polysaccharide [id number] conjugate, adjuvant, preservative free lotNumber: [id number] Mfg: Wyeth 216 CVX created date: 05/24/2025 administer ed date: 05/05/2023 Pneumococcal, unspecified formulation completed pneumococcal vaccine, unspecified formulation lotNumber: [id number] Mfg: Glaxo 109 CVX created date: 05/24/2025 administer ed date: 09/11/2024 Tetanus toxoid, unspecified formulation completed Td(adult) unspecified formulation Mfg: Sanofi 139 CVX created date: 05/24/2025 administer ed date: 10/23/2017 Medications Section Medication Name Status Code CodeSystem Dose Route Frequency Admin Type Sig Text Start Date End Date Indication VITAMIN B-2 100 mg TABLET active 2 table t Oral two times a day Routin e Give 2 table t via G-Tub e two times a day for Suppl ement 2024 - Supplement LORATADINE 5 mg/5 mL SOLUTION active 33191 3 RXNORM 10 ml Oral one time a day Routin e Give 10 ml via G-Tub e one time a day for Aller gies 2024 - Allergies LEVOTHYROXI NE SODIUM 88 mcg TABLET active 89357 3 RXNORM 1 table t Oral in the morning Routin e Give 1 table t by mouth in the [facility] ed to HYPOT JUSTIN TRUONG (E03. 9) 2024 - - DOCUSATE SODIUM 50 mg/5 mL LIQUID active 10 ml Oral one time a day Routin e Give 10 ml via G-Tub e one time a day for Const ipati on 2024 - Constipatio n VITAMIN D3 2,000 UNIT (50 MCG) TABLET active 1 table t Oral one time a day Routin e Give 1 table t via G-Tub e one time a day for Suppl ement 2024 - Supplement ATORVASTATI N CALCIUM 40 mg TABLET active 58140 1 RXNORM 1 table t Oral one time a day Routin e Give 1 table t via G-Tub e one time a day relat ed to HYPER LIPID EMIA, UNSPE CIFIE D (E78. 5) 2024 - - FLORANEX 1 million cell TABLET active 1 table t Oral one time a day Routin e Give 1 table t via G-Tub e one time a day for Probi otic 2024 - Probiotic RILUZOLE 50 mg TABLET active 6 RXNORM 1 table t Oral two times a day Routin e Give 1 table t via G-Tub e two times a day relat ed to MICHAEL Mathis LATER AL SCLER OSIS (G12. 21) 2024 - - MELATONIN 5 mg TABLET active 95258 2 RXNORM 2 table t Entera l at bedtime Routin e Give 2 table t enter ally at bedti me for Insom michael 2024 - Insomnia LIDOCAINE PAIN RELIEF 4 % ADH. PATCH active n/a n/a Topica l one time a day Routin e Apply to left upper chest topic ally one time a day for pain/ disco mfort 2024 - pain/discom fort ENOXAPARIN SODIUM 40 mg/0.4 mL SYRINGE active 52464 5 RXNORM 0.4 ml Subcut aneous one time a day Routin e Injec t 0.4 ml subcu taneo usly one time a day for DVT Proph ylaxi s 2024 - DVT Prophylaxis FERROUS SULFATE 220 mg (44 mg iron)/5 mL ELIXIR active 90005 9 RXNORM 5 ml Oral one time a day Routin e Give 5 ml via G-Tub e one time a day for Anemi a 2024 - Anemia SIMETHICONE 40 mg/0.6 mL DROPS SUSP active 1.2 ml Oral three times a day Routin e Give 1.2 ml via G-Tub e three times a day for Heart burn 2024 - Heartburn ALBUTEROL SULFATE 2.5 mg /3 mL (0.083 %) VIAL-NEB aborted 48315 8 RXNORM 3 ml Inhala tion three times a day Routin e 3 ml via trach three times a day for SOB/W heezi ng AND 3 ml via trach every 6 hours as neede d for SOB/W heezi ng 05/31 SOB/Wheezin g 12863 8 RXNORM 3 ml Inhala tion as needed PRN 3 ml via trach three times a day for SOB/W heezi ng AND 3 ml via trach every 6 hours as neede d for SOB/W heezi ng 05/31 SOB/Wheezin g MILK OF MAGNESIA 400 mg/5 mL ORAL SUSP active 30 ml Oral as needed PRN Give 30 ml by mouth as neede d for Once a day for const ipati on Admin ister if no bowel movem ent x 3 days 2024 - Once a day for constipatio n BISACODYL 10 mg SUPP.RECT active 9 RXNORM 1 suppo sitor y Rectal as needed PRN Inser t 1 suppo sitor y recta lly as neede d for Const ipati on Admin ister once a day if Milk of Magne pavel ineff ectiv e. 2024 - Constipatio n FLEET ENEMA 19-7 gram/118 mL ENEMA active 118 ml Rectal as needed PRN Inser t 118 ml recta lly as neede d for Const ipati on Admin ister once daily if Bisac odyl suppo sitor y ineff ectiv e 2024 - Constipatio n ACETAMINOPH EN 500 mg/15 mL LIQUID active 7 RXNORM 29.25 ml Oral as needed PRN Give 29.25 ml via G-Tub e every 8 hours as neede d for Pain - Moder ate (4-7/ 10);P ain - Mild (1-3/ 10) 2024 - Pain - Moderate (4-7/10);Pa in - Mild (1-3/10) TUMS (CALCIUM CARBONATE 500MG) TAB CHEW active 1 table t Oral as needed PRN Give 1 table t orall y every 4 hours as neede d for Heart burn 2024 - Heartburn ONDANSETRON ODT 4 mg TAB RAPDIS active 65930 4 RXNORM 1 table t Oral as needed PRN Give 1 table t via G-Tub e every 8 hours as neede d for Nause a and Vomit ing 2024 - Nausea and Vomiting IBUPROFEN 100 mg/5 mL ORAL SUSP active 3 RXNORM 20 ml Oral as needed PRN Give 20 ml by mouth every 8 hours as neede d for Pain; Pain - Mild 2024 - Pain;Pain - Mild HEMORRHOIDA L SUPPOSITORI ES (PHENYLEPHR INE) 0.25-88.44 % SUPP.RECT active 1 suppo sitor y Rectal as needed PRN Inser t 1 suppo sitor y recta lly as neede d for Hemor rhoid s May have as neede d up to three times a day. 2024 - Hemorrhoids DICLOFENAC SODIUM 1 % GEL (GRAM) active 47927 3 RXNORM n/a n/a Topica l as needed PRN Apply to Right Knee and BL ankle s topic ally as neede d for Pain - Moder ate (4-7/ 10);P ain - Mild (1-3/ 10) May admin ister up to three times a day as neede d 2024 - Pain - Moderate (4-7/10);Pa in - Mild (1-3/10) MIRTAZAPINE 7.5 mg TABLET active 01690 9 RXNORM 1 table t Oral one time a day Routin e Give 1 table t via G-Tub e one time a day for Insom michael 2024 - Insomnia LORATADINE 10 mg TABLET active 81330 2 RXNORM 1 table t Oral one time a day Routin e Give 1 table t via G-Tub e one time a day for Aller gies 2024 - Allergies SODIUM CHLORIDE 3 % VIAL-NEB active 61143 0 RXNORM 4 ml Inhala tion one time a day Routin e 4 ml inhal e orall y one time a day relat ed to Acute respi rator y failu re (J960 ) 2024 - - LORAZEPAM 1 mg TABLET active 1 RXNORM 1 table t Oral two times a day Routin e Give 1 table t by mouth two times a day relat ed to Anxie ty disor pascual, unspe cifie d (F419 ) 2024 - - HYDROXYZINE HCL 25 mg TABLET active 36735 8 RXNORM 25 mg Oral one time a day Routin e Give 25 mg by mouth one time a day relat ed to ANXIE TY DISOR PASCUAL, UNSPE CIFIE D (F41. 9) 2024 - - buPROPion HCl Oral Tablet 75 MG active 14685 1 RXNORM 2 table t Oral two times a day Routin e Give 2 table t via G-Tub e two times a day relat ed to PANIC DISOR PASCUAL [EPIS ODIC PAROX YSMAL ANXIE TY] (F41. 0) 2024 - - CHLORHEXIDI NE GLUCONATE 0.12 % MOUTHWASH active 38381 7 RXNORM 15 ml Oral two times a day Routin e Give 15 ml orall y two times a day for Oral Care 2024 - Oral Care KONVOMEP 2-84 mg/mL SUSP RECON active 63666 50 RXNORM 10 ml Oral two times a day Routin e Give 10 ml via G-Tub e two times a day relat ed to GASTR O-ESO PHAGE AL REFLU X DISEA SE WITHO UT ESOPH AGITI S (K21. 9) 2024 - - Pro-Stat Oral Liquid active 30 ml Oral one time a day Routin e Give 30 ml via G-Tub e one time a day for Suppl ement 2024 - Supplement Amoxicillin -Pot Clavulanate Tablet 875-125 [place] [address] 8 RXNORM 1 table t Oral every 12 hours Routin e Give 1 table t via G-Tub e every 12 hours for bacte rial infec tion: Pneum onia for 5 Days 05/21 bacterial infection: Pneumonia ALBUTEROL SULFATE 2.5 mg /3 mL (0.083 %) VIAL-NEB active 35924 8 RXNORM 3 ml Inhala tion every morning and at bedtime Routin e 3 ml via trach every morni ng and at bedti me for SOB/W heezi ng AND 3 ml via trach every 6 hours as neede d for SOB/W heezi ng 2024 - SOB/Wheezin g 21142 8 RXNORM 3 ml Inhala tion as needed PRN 3 ml via trach every morni ng and at bedti me for SOB/W heezi ng AND 3 ml via trach every 6 hours as neede d for SOB/W heezi ng 2024 - SOB/Wheezin g Mental Status Section Date Assessment Total Score Description 04/15/2025 BIMS 15 cognitively int act CAM 0 No delirium ind icated PHQ-9 02 minimal depress ion Insurance Providers Coverage Status Coverage Type Relationship to Subscriber Member Identifier Subscriber Identifier Group Identifier Payer Identifier and Other information 2025 Code: 2 Code System OID:[id number] 0.1.506188. 3.221.5 Code System Name: Source of Payment Typology (PHDSC) Display: Medicaid Translation : Code: 48 Code System: OID:..84 0.1.373538. 6.255.1336 Code System Name: Insurance Type Code ([id number]) Display Name: Medicaid Code: SELF Code System Name: HL7 RoleCode Code System OID:[id number] .[id number] Display Name: Self [id number] Root: [id number] Payer Name: [facility] Address: ATTN: CLAIMS DEPARTMENT City: [place] State: [place] Country: [facility] Code: 81 Code System OID:[id number] 0.1.962978. 3.221.5 Code System Name: Source of Payment Typology (PHDSC) Display: Self Pay Translation : Code: 09 Code System: OID:[id number] 0.1.002470. 6.255.1336 Code System Name: Insurance Type Code ([id number]) Display Name: Self-pay Plan of Treatment Section Interventions Intervention Code Code System Display Name Proposed D ate Problems Problem # Description Date of onset Resolved Date Code CodeSystem Concern Status 1 ACUTE AND CHRONIC RESPIRATORY FAILURE, UNSPECIFIED WHETHER WITH HYPOXIA OR HYPERCAPNIA [address] active 2 ACUTE KIDNEY FAILURE WITH TUBULAR NECROSIS [address] active 3 ACUTE RESPIRATORY FAILURE, UNSPECIFIED WHETHER WITH HYPOXIA OR HYPERCAPNIA [address] active 4 AMYOTROPHIC LATERAL SCLEROSIS [address] active 5 ANXIETY DISORDER, UNSPECIFIED [address] active 6 BRONCHOPNEUMONIA, UNSPECIFIED ORGANISM [address] active 7 CHRONIC OBSTRUCTIVE PULMONARY DISEASE, UNSPECIFIED [address] active 8 ESSENTIAL (PRIMARY) HYPERTENSION [address] active 9 GASTRO-ESOPHAGEAL REFLUX DISEASE WITHOUT ESOPHAGITIS [address] active 10 GASTROSTOMY STATUS [address] active 11 HYPERLIPIDEMIA, UNSPECIFIED [address] active 12 HYPOTHYROIDISM, UNSPECIFIED [address] active 13 IRON DEFICIENCY ANEMIA SECONDARY TO BLOOD LOSS (CHRONIC) [address] active 14 PANIC DISORDER [EPISODIC PAROXYSMAL ANXIETY] [address] active 15 PARAPLEGIA, UNSPECIFIED [address] active 16 POST-TRAUMATIC STRESS DISORDER, UNSPECIFIED [address] active 17 TRACHEOSTOMY STATUS [address] active 18 TYPE 2 DIABETES MELLITUS WITHOUT COMPLICATIONS [address] active Reason for Referral No Reasons for Referral Entered Social History Social History Observation Description Start Date End Date Code Code System Current Smoking Status Tobacco smoking consumption unknown 713027333 SNOMED CT Sex Assigned At Female 1980 61145-1 [facility] Gender Identity Sexual Orientation Vital Signs Code Code System Vitals Name Values and Units Timing Information 84490-2 LOINC Pain Level Value=0.0 06/11/2025 9279-1 LOINC Respiratory Rate Value=22.0 Units=/m in 06/11/2025 8462-4 LOINC Blood Pressure-Diastolic Value=81 Un its=mmHg 06/11/2025 8480-6 LOINC Blood Pressure-Systolic Fxmqc=330 Un its=mmHg 06/11/2025 8310-5 LOINC Body Temperature Value=97.4 Units= F 06/11/2025 8867-4 [facility] Heart rate Jpjbe=545.0 Units=/min 06/11/2025 2339-0 [facility] Blood Sugar Euqsp=064.0 Units=mg/dL 06/11/2025 84314-4 [facility] O2 % BldC Oximetry Value=95.0 Units= % 06/11/2025 8302-2 [facility] Height Value=72.0 Units=Inches 06/09/2025 51132-6 [facility] Weight Ntaru=437.5 Units=Lbs
--- OUTSIDE RECORDS SUMMARY | 2025-06-13 10:29 | XMS_ITS | Encounter Summary ---
Demographics Address [address] [facility] [address] [place] [address] Home Phone Work Phone Mobile Phone Home Phone Home Phone Mobile Phone Preferred Language en Marital Status Unknown Scientologist Affiliation Unknown Race Unknown Ethnic Group Unknown Author Organization [facility] Address [address] [place] [address] Care Team Providers Care Night Shift Manager Name Role Phone Venu Morales MD Primary Care Provider [phone] Encounter Details Date Type Department Care Team (Late st Contact Info) Description 08/08/2024 Lab Requisition [facility] - Main Lab [address] [facility] [place] [address] Venu Morales MD [address] [place] [address] [address] [place], [phone] Essential (primary) hypertension; Type 2 diabetes mellitus without complications (CMS/HCC V24, CMS/HCC V28); Fibromyalgia Social History Tobacco Use Types Packs/Day [...] Procedure Name Priority Date/Time Associated Diagnosis Comments URINALYSIS WITH REFLEX MICROSCOPIC AND CULTURE Routine 08/07/2024 1:00 PM EST Essential (primary) hypertension Type 2 diabetes mellitus without complications (CMS/HCC) Fibromyalgia ARCIN[place] URINE CULTURE TUBE Routine 08/07/2024 1:00 PM EST Essential (primary) hypertension Type 2 diabetes mellitus without complications (CMS/HCC) Fibromyalgia URINALYSIS WITH REFLEX MICROSCOPIC AND CULTURE Routine 08/07/2024 1:00 PM EST Essential (primary) hypertension Type 2 diabetes mellitus without complications (CMS/HCC) Fibromyalgia CULTURE URINE Routine 08/07/2024 1:00 PM EST Essential (primary) hypertension Type 2 diabetes mellitus without complications (CMS/HCC) Fibromyalgia documented in this encounter Results * (ABNORMAL) Culture urine (08/07/2024 1:00 PM EST) Culture, Urine >100,000 CFU/mL Proteus mirabilis(A ) JENNIFER 08/10/2024 11:26 AM EST [facility] Comment: Edited result: Previously reported as Proteus species on 08/09/2024 at 1107 EST. Urine Urine specimen from urethra / Unknown Non-blood Collection / Unknown 08/07/2024 1:00 PM EST 08/08/2024 8:35 AM EST [facility] - 08/10/2024 11:26 AM EST Additional colony types present in insignificant amounts. Organism Antibiotic Method Susceptibility Proteus mirabilis Ampicillin/Sulbactam JENNIFER <=2 ug/ml: Susceptible Proteus mirabilis Piperacillin/Tazobactam JENNIFER <=4 ug/ml: Susceptible Proteus mirabilis Cefazolin (Urine) JENNIFER 4 ug/ml: Susceptible Proteus mirabilis Cefoxitin JENNIFER <=4 ug/ml: Susceptible Proteus mirabilis Ceftazidime JENNIFER <=0.5 ug/ml: Susceptible Proteus mirabilis Ceftriaxone JENNIFER <=0.25 ug/ml: Susceptible Proteus mirabilis Cefepime JENNIFER <=0.12 ug/ml: Susceptible Proteus mirabilis Meropenem JENNIFER 1 ug/ml: Susceptible Proteus mirabilis Amikacin JENNIFER 4 ug/ml: Susceptible Proteus mirabilis Gentamicin JENNIFER <=1 ug/ml: Susceptible Proteus mirabilis Ciprofloxacin JENNIFER <=0.06 ug/ml: Susceptible Proteus mirabilis Levofloxacin JENNIFER <=0.12 ug/ml: Susceptible Proteus mirabilis Nitrofurantoin JENNIFER 64 ug/ml: Resistant Proteus mirabilis Trimethoprim/Sulfamethoxazole JENNIFER <=20 ug/ml: Susceptible us Venu Morales MD LAB MICROBIOLOGY - GENERAL ORDER MANDEEP Final Result [facility] [address] [place] [address], [place] [phone] * (ABNORMAL) Urinalysis with reflex microscopic and culture (08/07/2024 1:00 PM EST) Specific [place] Urine 1.019 1.003 - 1.030 LAB URINALYSIS - AUTOMATED METHOD 08/08/2024 8:35 AM [facility] pH, Urine 7.0 5.0 - 8.0 pH LAB URINALYSIS - AUTOMATED METHOD 08/08/2024 8:35 AM [facility] Leukocytes, Urine Large(A) Negative LAB URINALYSIS - AUTOMATED METHOD 08/08/2024 8:35 AM [facility] Nitrite, Urine Negative Negative LAB URINALYSIS - AUTOMATED METHOD 08/08/2024 8:35 AM [facility] Protein, Urine Trace <=Trace mg/dL LAB URINALYSIS - AUTOMATED METHOD 08/08/2024 8:35 AM [facility] Glucose, Urine Negative Negative mg/dL LAB URINALYSIS - AUTOMATED METHOD 08/08/2024 8:35 AM [facility] Ketones, Urine Negative Negative mg/dL LAB URINALYSIS - AUTOMATED METHOD 08/08/2024 8:35 AM [facility] Urobilinogen , Urine 0.2 0.2 - 1.0 mg/dL LAB URINALYSIS - AUTOMATED METHOD 08/08/2024 8:35 AM [facility] Bilirubin, Urine Negative Negative LAB URINALYSIS - AUTOMATED METHOD 08/08/2024 8:35 AM [facility] Blood, Urine Moderate(A) Negative LAB URINALYSIS - AUTOMATED METHOD 08/08/2024 8:35 AM [facility] RBC, Urine 35.3(H) 0 - 4 /HPF LAB URINALYSIS - AUTOMATED METHOD 08/08/2024 8:35 AM [facility] WBC, Urine 391.4(H) 0 - 4 /HPF LAB URINALYSIS - AUTOMATED METHOD 08/08/2024 8:35 AM [facility] Squamous Epithelial, Urine 80(H) 0 - 60 /LPF LAB URINALYSIS - AUTOMATED METHOD 08/08/2024 8:35 AM [facility] Bacteria, Urine Negative Negative /HPF LAB URINALYSIS - AUTOMATED METHOD 08/08/2024 8:35 AM [facility] Hyaline Casts, Urine 0.0 0 - 3 /LPF LAB URINALYSIS - AUTOMATED METHOD 08/08/2024 8:35 AM [facility] Urine Urine specimen from urethra / Unknown Non-blood Collection / Unknown 08/07/2024 1:00 PM EST 08/08/2024 8:00 AM EST us Venu Morales MD LAB URINE ORDERABLES Final Resul t Performing Organization Address City/[facility]/ZIP Co de Phone Number [facility] [address] [place] [address], [place] [phone] * [place] urine culture tube (08/07/2024 1:00 PM EST) Extra Tube Hold for add-ons. 08/08/2024 9:01 AM [facility] Comment:Auto resulted. Urine Urine specimen from urethra / Unknown Non-blood Collection / Unknown 08/07/2024 1:00 PM EST 08/08/2024 8:00 AM EST us Venu Morales MD LAB URINE ORDERABLES Final Resul t Performing Organization Address [facility]/ZIP Co de Phone Number [facility] [address] [place] [address], [place] [phone] documented in this encounter Visit Diagnoses Diagnosis Essential (primary) hypertension Unspecified essential hypertension Type 2 diabetes mellitus without complications (CMS[facility] V24, CMS/[facility] V28) Fibromyalgia Unspecified myalgia and myositis documented in this encounter Care Teams Night Shift Manager Relationship Specialty Start Date End Date Venu Morales MD [address] [place] [address], [phone] PCP - General Family Medicine 07/25/24 documented as of this encounter
--- OUTSIDE RECORDS SUMMARY | 2025-06-13 10:29 | XMS_ITS | Encounter Summary ---
Demographics Address [address] [facility] [address] [place] [address] Home Phone Work Phone Mobile Phone Home Phone Home Phone Mobile Phone Preferred Language en Marital Status Unknown Worship Affiliation Unknown Race Unknown Ethnic Group Unknown [facility] Address [address] [place] [address] Care Team Providers Care Video Rental Clerk Name Role Phone Venu Morales MD Primary Care Provider [phone] Encounter Details Date Type Department Care Team (Late st Contact Info) Description 08/02/2024 Lab Requisition [facility] - Main Lab 299 [facility] [place] [address] Venu Morales MD [address] [place] [address] [address] [place], [phone] Type 2 diabetes mellitus without complications (CMS/HCC V24, CMS/HCC V28); Essential (primary) hypertension Social History Tobacco Use [...] Associated Diagnosis Comments COMPLETE BLOOD COUNT Routine 08/03/2024 6:44 AM EST Type 2 diabetes mellitus without complications (CMS/HCC) Essential (primary) hypertension BASIC METABOLIC PANEL Routine 08/03/2024 6:44 AM EST Type 2 diabetes mellitus without complications (CMS/HCC) Essential (primary) hypertension documented in this encounter Results * (ABNORMAL) Basic metabolic panel (08/03/2024 6:44 AM EST) Sodium 135 133 - 145 mmol/L LAB CHEMISTRY METHOD 08/03/2024 12:12 PM [facility] Potassium 3.5 3.5 - 5.5 mmol/L LAB CHEMISTRY METHOD 08/03/2024 12:12 PM [facility] Chloride 100 96 - 110 mmol/L LAB CHEMISTRY METHOD 08/03/2024 12:12 PM [facility] CO2 26 21 - 32 mmol/L LAB CHEMISTRY METHOD 08/03/2024 12:12 PM [facility] Anion Gap 9 3 - 11 LAB CHEMISTRY METHOD 08/03/2024 12:12 PM [facility] Glucose 79 70 - 100 mg/dL LAB CHEMISTRY METHOD 08/03/2024 12:12 PM [facility] BUN 14 5 - 25 mg/dL LAB CHEMISTRY METHOD 08/03/2024 12:12 PM [facility] Creatinine 0.45(L) 0.50 - 1.10 mg/dL LAB CHEMISTRY METHOD 08/03/2024 12:12 PM [facility] eGFR 120 >=60 mL/min/1. 73m2 LAB CHEMISTRY METHOD 08/03/2024 12:12 PM [facility] Comment:Calculation based on the Chronic Kidney Disease Epidemiology Collaboration (CKD-EPI) equation refit without adjustment for race. BUN/Creatinine Ratio 31.1 LAB CHEMISTRY METHOD 08/03/2024 12:12 PM [facility] Calcium 9.6 8.5 - 10.5 mg/dL LAB CHEMISTRY METHOD 08/03/2024 12:12 PM [facility] Blood Venous blood specimen / Unknown Venipuncture / Unknown 08/03/2024 6:44 AM EST 08/03/2024 10:45 AM EST us Venu Morales MD LAB BLOOD ORDERABLES Final Resul t [facility] [address] [place] [address], * (ABNORMAL) Complete blood count (08/03/2024 6:44 AM EST) [facility] WBC 8.0 4.8 - 10.8 K/mcL LAB HEMETOLOGY METHOD 08/03/2024 11:36 AM EST [facility] RBC 4.40 3.80 - 4.80 M/mcL LAB HEMETOLOGY METHOD 08/03/2024 11:36 AM EST [facility] Hemoglobin 11.8 11.5 - 16.0 g/dL LAB HEMETOLOGY METHOD 08/03/2024 11:36 AM [facility] Hematocrit 35.5 35.0 - 47.0 % LAB HEMETOLOGY METHOD 08/03/2024 11:36 AM [facility] MCV 81.1 79.0 - 98.0 FL LAB HEMETOLOGY METHOD 08/03/2024 11:36 AM [facility] MCH 26.9(L) 27.0 - 32.0 pcg LAB HEMETOLOGY METHOD 08/03/2024 11:36 AM [facility] MCHC 33.2 32.0 - 37.0 g/dL LAB HEMETOLOGY METHOD 08/03/2024 11:36 AM [facility] RDW 13.3 11.0 - 15.0 % LAB HEMETOLOGY METHOD 08/03/2024 11:36 AM [facility] Platelets 303 130 - 400 K/mcL LAB HEMETOLOGY METHOD 08/03/2024 11:36 AM [facility] MPV 10.1 7.0 - 11.0 FL LAB HEMETOLOGY METHOD 08/03/2024 11:36 AM [facility] NRBC 0.0 <1.0 % LAB HEMETOLOGY METHOD 08/03/2024 11:36 AM EST [facility] NRBC Absolute 0.00 <0.10 K/mcL LAB HEMETOLOGY METHOD 08/03/2024 11:36 AM EST [facility] Blood Venous blood specimen / Unknown Venipuncture / Unknown 08/03/2024 6:44 AM EST 08/03/2024 9:51 AM EST us Venu Morales MD LAB BLOOD ORDERABLES Final Resul t [facility] [address] [place] [address], documented in this encounter Visit Diagnoses Diagnosis Type 2 diabetes mellitus without complications (CMS/HCC V24, CMS/HCC V28) Essential (primary) hypertension Unspecified essential hypertension documented in this encounter Care Teams Video Rental Clerk Relationship Specialty Start Date End Date Venu Morales MD [address] [place] [address], [phone] PCP - General Family Medicine 07/25/24 documented as of this encounter
--- OUTSIDE RECORDS SUMMARY | 2025-06-13 10:29 | XMS_ITS | Encounter Summary ---
Demographics Address [address] [facility] [address] [place] [address] Home Phone Work Phone Mobile Phone Home Phone Home Phone Mobile Phone Preferred Language en Marital Status Unknown Yazidi Affiliation Unknown Race Unknown Ethnic Group Unknown Author Organization [facility] Address [address] [place] [address] Care Team Providers Care Gas Dispatcher Name Role Phone Venu Morales MD Primary Care Provider [phone] Encounter Details Date Type Department Care Team (Late st Contact Info) Description 08/04/2024 Lab Requisition [facility] - Main Lab 299 [facility] [place] [address] Venu Morales MD [address] [place] [address] [address] [place], [phone] Localized swelling, mass and lump, left lower limb; Fibromyalgia; Type 2 diabetes mellitus without complications (CMS/HCC [...] Associated Diagnosis Comments COMPLETE BLOOD COUNT Routine 08/04/2024 8:07 AM EST Localized swelling, mass and lump, left lower limb Fibromyalgia Type 2 diabetes mellitus without complications (CMS/HCC) HEMOGLOBIN A1C Routine 08/04/2024 8:07 AM EST Localized swelling, mass and lump, left lower limb Fibromyalgia Type 2 diabetes mellitus without complications (CMS/HCC) BASIC METABOLIC PANEL Routine 08/04/2024 8:07 AM EST Localized swelling, mass and lump, left lower limb Fibromyalgia Type 2 diabetes mellitus without complications ([facility]) documented in this encounter Results * Hemoglobin A1c (08/04/2024 8:07 AM EST) Hemoglobin A1C 5.2 <6.5 % LAB CHEMISTRY METHOD 08/04/2024 2:05 PM EST [facility] Mean Bld Glu Estim. 103 mg/dL LAB CHEMISTRY METHOD 08/04/2024 2:05 PM [facility] Blood Venous blood specimen / Unknown Venipuncture / Unknown 08/04/2024 8:07 AM EST 08/04/2024 10:31 AM EST us Venu Morales MD LAB BLOOD ORDERABLES Final Resul t [facility] [address] [place] [address], * (ABNORMAL) Basic metabolic panel (08/04/2024 8:07 AM EST) Pathologist [facility] Sodium 132(L) 133 - 145 mmol/L LAB CHEMISTRY METHOD 08/04/2024 11:45 AM [facility] Potassium 3.7 3.5 - 5.5 mmol/L LAB CHEMISTRY METHOD 08/04/2024 11:45 AM [facility] Chloride 96 96 - 110 mmol/L LAB CHEMISTRY METHOD 08/04/2024 11:45 AM [facility] CO2 30 21 - 32 mmol/L LAB CHEMISTRY METHOD 08/04/2024 11:45 AM [facility] Anion Gap 6 3 - 11 LAB CHEMISTRY METHOD 08/04/2024 11:45 AM [facility] Glucose 79 70 - 100 mg/dL LAB CHEMISTRY METHOD 08/04/2024 11:45 AM [facility] BUN 13 5 - 25 mg/dL LAB CHEMISTRY METHOD 08/04/2024 11:45 AM [facility] Creatinine 0.44(L) 0.50 - 1.10 mg/dL LAB CHEMISTRY METHOD 08/04/2024 11:45 AM [facility] eGFR 121 >=60 mL/min/1. 73m2 LAB CHEMISTRY METHOD 08/04/2024 11:45 AM [facility] Comment:Calculation based on the Chronic Kidney Disease Epidemiology Collaboration (CKD-EPI) equation refit without adjustment for race. BUN/Creatinine Ratio 29.5 LAB CHEMISTRY METHOD 08/04/2024 11:45 AM [facility] Calcium 9.6 8.5 - 10.5 mg/dL LAB CHEMISTRY METHOD 08/04/2024 11:45 AM [facility] Blood Venous blood specimen / Unknown Venipuncture / Unknown 08/04/2024 8:07 AM EST 08/04/2024 10:31 AM EST us Venu Morales MD LAB BLOOD ORDERABLES Final Resul t [facility] [address] [place] [address], * Complete blood count (08/04/2024 8:07 AM EST) WBC 9.5 4.8 - 10.8 K/mcL LAB HEMETOLOGY METHOD 08/04/2024 11:22 AM [facility] RBC 4.40 3.80 - 4.80 M/mcL LAB HEMETOLOGY METHOD 08/04/2024 11:22 AM [facility] Hemoglobin 11.9 11.5 - 16.0 g/dL LAB HEMETOLOGY METHOD 08/04/2024 11:22 AM [facility] Hematocrit 35.6 35.0 - 47.0 % LAB HEMETOLOGY METHOD 08/04/2024 11:22 AM EST [facility] MCV 81.8 79.0 - 98.0 FL LAB HEMETOLOGY METHOD 08/04/2024 11:22 AM [facility] MCH 27.4 27.0 - 32.0 pcg LAB HEMETOLOGY METHOD 08/04/2024 11:22 AM [facility] MCHC 33.4 32.0 - 37.0 g/dL LAB HEMETOLOGY METHOD 08/04/2024 11:22 AM [facility] RDW 13.4 11.0 - 15.0 % LAB HEMETOLOGY METHOD 08/04/2024 11:22 AM [facility] Platelets 360 130 - 400 K/mcL LAB HEMETOLOGY METHOD 08/04/2024 11:22 AM [facility] MPV 10.2 7.0 - 11.0 FL LAB HEMETOLOGY METHOD 08/04/2024 11:22 AM [facility] NRBC 0.0 <1.0 % LAB HEMETOLOGY METHOD 08/04/2024 11:22 AM [facility] NRBC Absolute 0.00 <0.10 K/mcL LAB HEMETOLOGY METHOD 08/04/2024 11:22 AM [facility] Blood Venous blood specimen / Unknown Venipuncture / Unknown 08/04/2024 8:07 AM EST 08/04/2024 10:31 AM EST us Venu Morales MD LAB BLOOD ORDERABLES Final Resul t [facility] [address] [place] [address], documented in this encounter Visit Diagnoses Diagnosis Localized swelling, mass and lump, left lower limb Fibromyalgia Unspecified myalgia and myositis Type 2 diabetes mellitus without complications (CMS/HCC V24, CMS/HCC V28) documented in this encounter Care Teams Gas Dispatcher Relationship Specialty Start Date End Date Venu Morales MD [address], [phone] PCP - General Family Medicine 07/25/24 documented as of this encounter
[2025-06-13 10:45] LABS: Alanine Aminotransferase 14 U/L (0-31); Albumin Level 3.8 g/dL (3.5-5.0); Alkaline Phosphatase 76 U/L (39-117); Anion Gap 14 (12-20); Aspartate Amino Transferase 19 U/L (5-31); Blood Urea Nitrogen 15 mg/dL (9-16); Calcium 9.6 mg/dL (8.4-10.2); Carbon Dioxide 25 mmol/L (22-29); Chloride 102 mmol/L (96-108); Estimated Glomerular Filt Rate > 60; Hematocrit 29.4 % (37.0-47.0); Hemoglobin 9.5 g/dl (12.0-16.0); Imm Gran Abs Auto 0.03 X10*3/uL (0.00-0.03); Imm Gran Pct Auto 0.4 % (0.0-0.4); Lymphocytes Absolute Auto 1.4 X10*3/uL (1.2-4.9); Mean Corpuscular HGB Conc 32.3 g/dl (31.0-35.0); Mean Corpuscular Hemoglobin 25.9 pg (27.0-33.0); Mean Corpuscular Volume 80.1 fL (80.0-98.0); NRBC Abs Auto 0.000 X10*3/uL (0.0-0.012); NRBC Pct Auto 0.0 /100WBC (0.0-0.2); Platelet Count 393 X10*3/uL (160-400); Potassium 4.2 mmol/L (3.3-5.1); Red Blood Count 3.67 X10*6/uL (4.20-5.50); Sodium 137 mmol/L (135-145); Total Protein 7.3 g/dL (6.5-8.0); White Blood Count 7.1 X10*3/uL (4.8-10.8)
[2025-06-15 14:58] LABS: Rubeola IgG (Measles) 72.70 AU/mL
== END 2025-06-13 10:19 | disposition home or self-care (01) ==
LOC: HO.WMHL 10:18
PROVIDERS: Visit Provider Nurse Practitioner
DX: Z01.84 Encounter for antibody response examination (principal); E11.9 Type 2 diabetes mellitus without complications; I10 Essential (primary) hypertension; D64.9 Anemia, unspecified
CPT/HCPCS: 36415; 80053; 84445; 85025; 86735; 86762; 86765; 86787